=== PATIENT | female | born 1965 ===

== ENCOUNTER 2018-05-01 22:08 | Inpatient (IN) | payer OTHER ==
[2018-05-01] MEDS ORDERED: Sodium Chloride 0.9% 1,000 ML IV SCH (22:15)
--- NOTE | 2018-05-01 22:17 | C.PDOC ---
Time Seen by Provider: 05/01/18 22:12 Chief Complaint (Nursing): Altered Mental Status Disposition Counseled Patient/Family Regarding: Studies Performed, Diagnosis - Disposition Disposition Time: 22:17
[2018-05-01] MEDS ORDERED: Iodixanol 320 MG/ML 100 ML BOTTLE IV ONE (22:19)
[2018-05-01 22:20] VITALS: BMI 28.4
[2018-05-01 22:21] LABS: BASO # 0.1 K/uL (0.0-0.2); BASO % 0.5 % (0.0-2.0); EOS # 0.1 K/uL (0.0-0.7); EOS % 0.6 % (0.0-4.0); HEMOGLOBIN 11.8 g/dL (11.0-16.0); LYMPH # 5.2 K/uL (1.0-4.3); LYMPH % 28.8 % (20.0-40.0); MEAN CELL VOLUME 82.3 fL (81.0-99.0); MEAN CORPUSCULAR HGB CONC 31.6 g/dL (33.0-37.0); MONO # 0.8 K/uL (0.0-0.8); MONO % 4.5 % (0.0-10.0); NEUT % 65.6 % (50.0-75.0); RBC 4.56 Mil/uL (3.80-5.20); RED CELL DISTRIBUTION WIDTH 15.1 % (11.5-14.5); WHITE BLOOD COUNT 18.2 K/uL (4.8-10.8)
--- NOTE | 2018-05-01 22:27 | C.PDOC ---
History Of Present Illness pt has not been feeling well since yesterday. Had a few beers today, was complaining of a headache. 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 When medics arrived, pt was unresposive and was RSI with rocuronium and ketamine. Was found initially to be hypertensive.. Unable to do NIH scale as pt is sedated, intubated and paralyzed(with rocuronium) Time Seen by Provider: 05/01/18 22:12 Chief Complaint (Nursing): Altered Mental Status History Per: EMS History/Exam Limitations: clinical condition Onset/Duration Of Symptoms: Hrs Current Symptoms Are (Timing): Worse Severity: Severe Pain Scale Rating Of: 10 Recent travel outside of the [place]: No Additional History Per: EMS Past Medical History Reviewed: Historical Data, Nursing Documentation, Vital Signs Vital Signs: Last Vital Signs Temp Pulse 90 05/01/18 22:10 Resp 14 05/01/18 22:10 BP 89/40 L 05/01/18 22:10 Pulse Ox 100 05/01/18 22:10 Family History: States: No Known Family Hx - Social History Hx Alcohol Use: (UNKNOWN) Hx Substance Use: (UNKNOWN) - Immunization History Hx Tetanus Toxoid Vaccination: (UNOBTAINABLE) Hx Influenza Vaccination: (UNOBTAINABLE) Hx Pneumococcal Vaccination: (UNOBTAINABLE) Review Of Systems Review Of Systems: ROS cannot be obtained secondary to pt's inabilty to answer questions. Physical Exam - Physical Exam Appears: In Acute Distress Skin: Warm, Dry Head: Normacephalic Eye(s): bilateral: Other (pinpoint) Oral Mucosa: Moist Throat: Other (intubated) Neck: Supple Chest: Symmetrical Cardiovascular: Rhythm Regular Respiratory: No Rales, No Rhonchi, No Wheezing Gastrointestinal/Abdominal: Soft, No Tenderness, No Distention Back: Normal Inspection Extremity: No Pedal Edema Extremity: Bilateral: Atraumatic, Normal Color And Temperature Pulses: Left Dorsalis Pedis: Normal, Right Dorsalis Pedis: Normal Neurological/Psych: Other (intubated) Gait: Unable To Assess ED Course And Treatment - Laboratory Results Result Diagrams: 05/01/18 22:16 05/01/18 22:16 ECG: Interpreted By Me, Viewed By Me ECG Rhythm: Sinus Rhythm (91), ST/T Changes (poss lat st changes) O2 Sat by Pulse Oximetry: 100 Pulse Ox Interpretation: Normal - Radiology CXR: Interpreted by Me, Viewed By Me CXR Interpretation: Yes: Infiltrates (? rll ), Other (ett in place, ? rll mass). No: Fracture, Cardiomegaly Progress Note: 10:16PM - texted the ekg to dr soares-[facility] , and spoke with him - pt in view of her being unresponsive, and the ekg does not meet [facility] criteria. 11:[address] saunders-icu- will come and see the pt in the ed. have spoken with her and are aware of her condition. spoke with dr contreras - neurologist - load with [place] Critical Care Time - Critical Care Note Total Time (in mins): 40 Documented critical care: time excludes all time spent performing seperately billable procedures. Disposition Discussed With Dr.: Manfred Carbajal Comment: accepted the pt on his service and took over the care at 11:45 PM Doctor Will See Patient In The: ED Counseled Patient/Family Regarding: Studies Performed, Diagnosis - Disposition Disposition: HOSPITALIZED Disposition Time: 22:24 Condition: CRITICAL - POA Present On Arrival: Poor Glycemic Control - Clinical Impression Clinical Impression: Hyperglycemia, Respiratory failure, Leukocytosis Decision To Admit - Pt Status Changed To: Hospital Disposition Of: Inpatient - Admit Certification Admit to Inpatient:: After my assessment, the patient will require hospitalization for at least two midnights. This is because of the severity of symptoms shown, intensity of services needed, and/or the medical risk in this patient being treated as an outpatient. - InPatient: Physician Admission Certification: I certify that this patient requires 2 or more midnights of care for the following reason:: After my assessment, the patient will require hospitalization for at least two midnights. This is because of the severity of symptoms shown, intensity of services needed, and/or the medical risk in this patient being treated as an outpatient. - . Bed Request Type: ICU Admitting Physician: Manfred Carbajal Patient Diagnosis: Hyperglycemia, Respiratory failure, Leukocytosis
[2018-05-01 22:40] LABS: ALB/GLOB RATIO 1.1 (1.0-2.1); ALBUMIN 2.9 g/dL (3.5-5.0); CALCIUM 7.9 mg/dl (8.6-10.4)
[2018-05-01 22:46] LABS: TROPONIN I 0.052 ng/mL (0.00-0.120)
[2018-05-01 23:23] LABS: BARBITURATES, UR NEGATIVE (NEGATIVE); OPIATES, UR NEGATIVE (NEGATIVE); PHENCYCLIDINE, UR NEGATIVE (NEGATIVE)
[2018-05-01 23:25] LABS: BENZODIAZEPINES, UR POSITIVE (NEGATIVE)
[2018-05-01] MEDS ORDERED: Sodium Chloride 0.9% 1,000 ML IV ONE (23:30)
[2018-05-01 23:44] LABS: ARTERIAL BLOOD GAS HCO3 12.5 mmol/L (21-28); ARTERIAL BLOOD GAS O2 SAT 92.8 % (95-98); ARTERIAL BLOOD GAS PCO2 34 mm/Hg (35-45); ARTERIAL BLOOD GAS PH 7.16 (7.35-7.45); ARTERIAL BLOOD GAS PO2 68 mm/Hg (80-100); ARTERIAL BLOOD GAS TCO2 13.1 mmol/L (22-28)
[2018-05-01] MEDS ORDERED: Midazolam 50 mg/10 ml 100 MG in Dextrose 5% In Water 80 ML IV SCH (23:45)
[2018-05-01] MEDS ORDERED: Vancomycin 1 GM 1 GM/250 ML BAG IVPB SCH (23:45)
[2018-05-01] MEDS: Piperacill/Tazo 3.375gm in Dex 3.375 GM/50 ML BAG IVPB SCH (23:50)
[2018-05-01 23:51] LABS: INR 1.2; PROTHROMBIN TIME 12.7 SECONDS (9.7-12.2)
[2018-05-01 23:55] LABS: ACETAMINOPHEN < 10.0 ug/mL (10.0-30.0); SALICYLATE < 1.0 mg/dL 1
--- NOTE | 2018-05-02 00:02 | CP.PCM.CON ---
History of Present Illness - History of Present Illness History of Present Illness: 52 y/o female with unknown pmx admitted to [facility] after being found unresponsive by . Patient was intubated in the field by EMS. LImited ROS 2nd patient intubated. Review of Systems - Review of Systems Systems not reviewed;Unavailable: Intubated Past Patient History - Tetanus Immunizations Tetanus Immunization: Unknown - Past Social History Smoking Status: Never Smoked - PSYCHIATRIC Hx Substance Use: (UNKNOWN) - SURGICAL HISTORY Hx Surgeries: (UNOBTAINABLE) - ANESTHESIA Hx Anesthesia: (UNOBTAINABLE) Meds Allergies/Adverse Reactions: Allergies Allergy/AdvReac Type Severity Reaction Status Date / Time No Known Allergies Allergy Unverified 05/01/18 22:37 - Medications Medications: Current Medications Sodium Chloride (Sodium Chloride 0.9%) 1,000 mls @ 100 mls/hr IV .Q10H BETH Levetiracetam 1,000 mg/ (Dextrose) 110 mls @ 420 mls/hr IVPB Q12H BETH Sodium Chloride (Sodium Chloride 0.9%) 1,000 mls @ 1,000 mls/hr IV .Q1H ONE Stop: 05/02/18 00:29 Piperacillin Sod/Tazobactam Sod (Zosyn 3.375 Gm Iv Premix) 3.375 gm in 50 mls @ 100 mls/hr IVPB Q6H BETH; Protocol Midazolam HCl 100 mg/ Dextrose 100 mls @ 1.36 mls/hr IV .Q24H BETH; Protocol Vancomycin HCl (Vancomycin 1gm In Normal Saline Addvantage) 1 gm in 250 mls @ 166.667 mls/hr IVPB STAT BETH; Protocol Insulin Aspart (Novolog) 0 unit SC Q4H BETH; Protocol Physical Exam - Eye Exam Eye Exam: Normal appearance Pupil Exam: Irregular - ENT Exam ENT Exam: Mucous Membranes Moist - Respiratory Exam Respiratory Exam: Clear to Auscultation Bilateral, Rhonchi, NORMAL BREATHING PATTERN. absent: Rales, Respiratory Distress, Stridor - Cardiovascular Exam Cardiovascular Exam: REGULAR RHYTHM, +S1, +S2 - GI/Abdominal Exam GI & Abdominal Exam: Normal Bowel Sounds. absent: Distended, Rebound, Rigid - Extremities Exam Extremities exam: Positive for: normal inspection - Skin Skin Exam: Normal Color Results - Vital Signs Recent Vital Signs: Last Vital Signs Temp 96.7 F L 05/01/18 23:05 Pulse 81 05/01/18 23:05 Resp 15 05/01/18 23:05 BP 87/57 L 05/01/18 23:05 Pulse Ox 100 05/01/18 23:29 - Labs Result Diagrams: 05/01/18 22:16 05/01/18 22:16 Labs: Laboratory Results - last 24 hr 05/01/18 05/01/18 05/01/18 22:16 22:16 23:04 WBC 18.2 H RBC 4.56 Hgb 11.8 Hct 37.5 MCV 82.3 MCH 26.0 L MCHC 31.6 L RDW 15.1 H Plt Count 234 MPV 11.0 Neut % (Auto) 65.6 Lymph % (Auto) 28.8 [place] % (Auto) 4.5 Eos % (Auto) 0.6 Baso % (Auto) 0.5 Neut # (Auto) 12.0 H Lymph # (Auto) 5.2 H [place] # (Auto) 0.8 Eos # (Auto) 0.1 Baso # (Auto) 0.1 PT INR APTT Puncture Site pCO2 pO2 HCO3 ABG pH ABG Total CO2 ABG O2 Saturation ABG Base Excess Erik Test ABG Potassium A-a O2 Difference Respiratory Index Glucose Lactate Vent Mode Mechanical Rate FiO2 Tidal Volume PEEP Crit Value Called To Crit Value Called By Crit Value Read Back Blood Gas Notified Time Sodium 138 Potassium 3.5 L Chloride 103 Carbon Dioxide 14 L Anion Gap 25 H BUN 20 H Creatinine 1.2 Est GFR ( Amer) 57 Est GFR (Non-Af Amer) 47 Random Glucose 593 H* Calcium 7.9 L Total Bilirubin 0.4 AST 230 H ALT 156 H Alkaline Phosphatase 86 Troponin I 0.0520 Total Protein 5.5 L Albumin 2.9 L Globulin 2.6 Albumin/Globulin Ratio 1.1 Triglycerides 309 H Cholesterol 161 LDL Cholesterol Direct 104 HDL Cholesterol 20 L Arterial Blood Potassium Urine Opiates Screen Negative Urine Methadone Screen Negative Ur Barbiturates Screen Negative Ur Phencyclidine Scrn Negative Ur Amphetamines Screen Negative U Benzodiazepines Scrn Positive U Oth Cocaine Metabols Negative U Cannabinoids Screen Negative Alcohol, Quantitative 41 H B-Hydroxybutyrate 0.28 H 05/01/18 05/01/18 23:39 23:41 WBC RBC Hgb Hct MCV MCH MCHC RDW Plt Count MPV Neut % (Auto) Lymph % (Auto) [place] % (Auto) Eos % (Auto) Baso % (Auto) Neut # (Auto) Lymph # (Auto) [place] # (Auto) Eos # (Auto) Baso # (Auto) PT 12.7 H INR 1.2 APTT 26 Puncture Site R bra pCO2 34 L pO2 68 L HCO3 12.5 L ABG pH 7.16 L* ABG Total CO2 13.1 L ABG O2 Saturation 92.8 L ABG Base Excess -15.6 L Erik Test Na ABG Potassium 3.5 L A-a O2 Difference 603.0 Respiratory Index 8.9 Glucose 516 H* Lactate 5.3 H* Vent Mode Prvc Mechanical Rate 20 FiO2 100.0 Tidal Volume 450 PEEP 5 Crit Value Called To Dr griffith Crit Value Called By Marilia condon rt Crit Value Read Back Y Blood Gas Notified Time 2344 Sodium 138.0 Potassium Chloride 112.0 H Carbon Dioxide Anion Gap BUN Creatinine Est GFR ( Amer) Est GFR (Non-Af Amer) Random Glucose Calcium Total Bilirubin AST ALT Alkaline Phosphatase Troponin I Total Protein Albumin Globulin Albumin/Globulin Ratio Triglycerides Cholesterol LDL Cholesterol Direct HDL Cholesterol Arterial Blood Potassium 3.5 L Urine Opiates Screen Urine Methadone Screen Ur Barbiturates Screen Ur Phencyclidine Scrn Ur Amphetamines Screen U Benzodiazepines Scrn U Oth Cocaine Metabols U Cannabinoids Screen Alcohol, Quantitative B-Hydroxybutyrate Assessment & Plan - Assessment and Plan (Free Text) Assessment: AMS: exact etiology unknown, possible seizures, possible toxic injestion, utox, osmol, EEG, MRI brain, CT head pending -Sepsis: suspect aspiration, start vanco and zosyn, rios culture, serial lactic -Uncontrolled blood sugar, possible h/o diabetes, check beta hydroaxybutyrate, serial lactic -ACute respiratory failure: continue ventilation with rr 20 and vtidal 450, peep 5,m titrate fio2 to keep spo2 >92, continue bronchodialotrs -Anion gap metabolic acidosis: patient was on rocuronium, increase rr to 20, infuse bicarb push to keep pH >7.2, osmol (+), DKA (+), start insulin ggt, if not improved will infuse fomipazole (?methanol) -check TSH and HBA1C -r/o ACS: serial trop q8hrs x3, ekg and echo -NG tube -dvt ppx heparin -pud ppx pepcid. prognosis guarded as multiple diasgnostic tests peneding cc time 35 minutes PAtient will benefit from ICU level care consutl cardiology, neurology and infectious disease - Date & Time Date: 05/02/18 Time: 00:02
[2018-05-02] MEDS ORDERED: Lactated Ringer's 1,000 ML IV ONE (00:05)
[2018-05-02] MEDS ORDERED: Magnesium Sulfate 1 gm in D5W 1 GM/100 ML BAG IVPB ONE ×2 (00:09→03:00)
[2018-05-02] MEDS ORDERED: Lactated Ringer's 1,000 ML IV SCH (00:15)
--- NOTE | 2018-05-02 00:17 | CP.PCM.HP ---
<Eren Hernandez - Last Filed: 05/02/18 01:10> History of Present Illness - History of Present Illness History of Present Illness: PGY-1 ICU History and Physical Patient is a 52 year old female with no known PMHx who was brought to the emergency room by EMS after being found unresponsive by her this evening. Patient is from the [facility] and was visiting her who lives here in the . Per patient's , patient had been complaining of headaches for the past two days which had been getting worse, as well as some nausea. This evening, patient was at a [employer] with her and had had a few beers to drink. Patient was not feeling well and went to the bathroom where she was then found unresponsive on the ground by her . EMS was called and patient was intubated in the field and brought to [facility]. Initially patient was found to be hypertensive. Code stroke was initated in the emergency room. Patient has no known history of hypertension, diabetes, or cardiovascular disease. ROS unable to be obtained as patient sedated and intubated. Surgical hx: No known surgeries Medical hx: No known prior medical history Allergies: NKDA Social: EtOH use Family Hx: No known family hx Medications: No home meds Present on Admission - Present on Admission Any Indicators Present on Admission: No Review of Systems - Review of Systems Systems not reviewed;Unavailable: Intubated Review of Systems: Unable to be obtained as patient intubated and sedated Past Patient History - Past Social History Smoking Status: Never Smoked - PSYCHIATRIC Hx Substance Use: (UNKNOWN) - SURGICAL HISTORY Hx Surgeries: (UNOBTAINABLE) - ANESTHESIA Hx Anesthesia: (UNOBTAINABLE) Meds Allergies/Adverse Reactions: Allergies Allergy/AdvReac Type Severity Reaction Status Date / Time No Known Allergies Allergy Unverified 05/01/18 22:37 Physical Exam - Constitutional Appears: In Acute Distress - Head Exam Head Exam: NORMOCEPHALIC - Eye Exam Eye Exam: Normal appearance Pupil Exam: Miosis - ENT Exam Additional comments: Intubated - Respiratory Exam Respiratory Exam: Clear to Auscultation Bilateral. absent: Rhonchi, Wheezes - Cardiovascular Exam Cardiovascular Exam: RRR, +S1, +S2. absent: Systolic Murmur - GI/Abdominal Exam GI & Abdominal Exam: Normal Bowel Sounds, Soft. absent: Distended - Extremities Exam Extremities exam: Negative for: pedal edema - Back Exam Back exam: NORMAL INSPECTION - Neurological Exam Additional comments: Sedated - Skin Skin Exam: Dry, Normal Color, Warm Results - Vital Signs Recent Vital Signs: Last Vital Signs Temp 96.7 F L 05/01/18 23:05 Pulse 81 05/01/18 23:05 Resp 15 05/01/18 23:05 BP 87/57 L 05/01/18 23:05 Pulse Ox 100 05/01/18 23:29 - Labs Result Diagrams: 05/01/18 22:16 05/01/18 22:16 Labs: Laboratory Results - last 24 hr 05/01/18 05/01/18 05/01/18 22:16 22:16 23:04 WBC 18.2 H RBC 4.56 Hgb 11.8 Hct 37.5 MCV 82.3 MCH 26.0 L MCHC 31.6 L RDW 15.1 H Plt Count 234 MPV 11.0 Neut % (Auto) 65.6 Lymph % (Auto) 28.8 [place] % (Auto) 4.5 Eos % (Auto) 0.6 Baso % (Auto) 0.5 Neut # (Auto) 12.0 H Lymph # (Auto) 5.2 H [place] # (Auto) 0.8 Eos # (Auto) 0.1 Baso # (Auto) 0.1 PT INR APTT Puncture Site pCO2 pO2 HCO3 ABG pH ABG Total CO2 ABG O2 Saturation ABG Base Excess Erik Test ABG Potassium A-a O2 Difference Respiratory Index Glucose Lactate Vent Mode Mechanical Rate FiO2 Tidal Volume PEEP Crit Value Called To Crit Value Called By Crit Value Read Back Blood Gas Notified Time Sodium 138 Potassium 3.5 L Chloride 103 Carbon Dioxide 14 L Anion Gap 25 H BUN 20 H Creatinine 1.2 Est GFR ( Amer) 57 Est GFR (Non-Af Amer) 47 Random Glucose 593 H* Calcium 7.9 L Total Bilirubin 0.4 AST 230 H ALT 156 H Alkaline Phosphatase 86 Troponin I 0.0520 Total Protein 5.5 L Albumin 2.9 L Globulin 2.6 Albumin/Globulin Ratio 1.1 Triglycerides 309 H Cholesterol 161 LDL Cholesterol Direct 104 HDL Cholesterol 20 L Arterial Blood Potassium Salicylates Urine Opiates Screen Negative Urine Methadone Screen Negative Acetaminophen Ur Barbiturates Screen Negative Ur Phencyclidine Scrn Negative Ur Amphetamines Screen Negative U Benzodiazepines Scrn Positive U Oth Cocaine Metabols Negative U Cannabinoids Screen Negative Alcohol, Quantitative 41 H B-Hydroxybutyrate 0.28 H 05/01/18 05/01/18 05/01/18 23:39 23:39 23:41 WBC RBC Hgb Hct MCV MCH MCHC RDW Plt Count MPV Neut % (Auto) Lymph % (Auto) [place] % (Auto) Eos % (Auto) Baso % (Auto) Neut # (Auto) Lymph # (Auto) [place] # (Auto) Eos # (Auto) Baso # (Auto) PT 12.7 H INR 1.2 APTT 26 Puncture Site R bra pCO2 34 L pO2 68 L HCO3 12.5 L ABG pH 7.16 L* ABG Total CO2 13.1 L ABG O2 Saturation 92.8 L ABG Base Excess -15.6 L Erik Test Na ABG Potassium 3.5 L A-a O2 Difference 603.0 Respiratory Index 8.9 Glucose 516 H* Lactate 5.3 H* Vent Mode Prvc Mechanical Rate 20 FiO2 100.0 Tidal Volume 450 PEEP 5 Crit Value Called To Dr griffith Crit Value Called By Marilia condon rt Crit Value Read Back Y Blood Gas Notified Time 2344 Sodium 138.0 Potassium Chloride 112.0 H Carbon Dioxide Anion Gap BUN Creatinine Est GFR ( Amer) Est GFR (Non-Af Amer) Random Glucose Calcium Total Bilirubin AST ALT Alkaline Phosphatase Troponin I Total Protein Albumin Globulin Albumin/Globulin Ratio Triglycerides Cholesterol LDL Cholesterol Direct HDL Cholesterol Arterial Blood Potassium 3.5 L Salicylates < 1.0 Urine Opiates Screen Urine Methadone Screen Acetaminophen < 10.0 L Ur Barbiturates Screen Ur Phencyclidine Scrn Ur Amphetamines Screen U Benzodiazepines Scrn U Oth Cocaine Metabols U Cannabinoids Screen Alcohol, Quantitative B-Hydroxybutyrate Assessment & Plan - Assessment and Plan (Free Text) Assessment: Altered mental status - DKA vs CVA vs ACS vs Seizure disorder vs HTN emergency -Code Stroke called -Patient remains intubated and sedated and will be admitted to ICU -CT head 05/02 - Sinusitis. No evidence of acute intracranial pathology -CTA head/neck 05/02 - Essentially unremarkable CT angiogram of the brain and neck. No evidence of dissection, occlusion, vascular injury, or aneurysm is seen. -Possible DKA - BG 516, B-hydroxybutyrate .28, ABG pH 7.14, AG calculated 22.5 -F/u A1C -TSH WNL -Neuro (Dr. Vanegas) phone consulted by ED - Awaiting MRI results. -EEG bedside -Meds --Midazolam HCl 100 mg/ Dextrose 100 mls @ 1.36 mls/hr IV .Q24H BETH; Protocol --Levetiracetam 1,000 mg/ (Dextrose) 110 mls @ 420 mls/hr IVPB Q12H BETH --Keppra 1000mg in D5W given stat Sepsis -WBC 18.2 -RLL infiltrates on chest x-ray (official read pending) -Vanc/Zosyn started empirically -hypotensive -Lactate elevated --> 5.2 --Serial lactate levels -Cultures: Blood, urine, sputum cx pending -Meds: --Piperacillin Sod/Tazobactam- 3.375 gm in 50 mls @ 100 mls/hr IVPB Q6H --Vancomycin HCl (Vancomycin 1gm In Normal Saline Addvantage) 1 gm in 250 mls @ 166.667 mls/hr IVPB stat --LRs @ 1000cc/hr Hyperglycemia -Possible DKA - BG 516, B-hydroxybutyrate .28, ABG pH 7.14, AG calculated 22.5 -LRs @ 1000cc/hr -Sodium Chloride (Sodium Chloride 0.9%) 1,000 mls @ 100 mls/hr IV .Q10H BETH -Insulin Aspart (Novolog) ISS Abnormal EKG -Dr. Gay consulted via phone by ED physician for ST elevations noted on MS. Per Dr. Gay EKG did not meet code heart criteria. Code heart not called. -Initial trops negative -Cardio consult - Dr. Gay, help appreciated. -F/u ROMIs -Echo Hypertensive Urgency/Emergency -219/155 -Elevated lactate -Initial CT head/CTA head/neck negative -F/u MRI Transaminitis -AST/ALT : 230/156 -Likely 2/2 EtOh -Initial blood alcohol quant 41 Lipid Disorder -TG 309 -Low HDL - 20 -LDL WNL Case Discussed with Dr. Raven Hernandez, PGY-1 <Manfred Carbajal - Last Filed: 05/02/18 06:30> Results - Vital Signs Recent Vital Signs: Last Vital Signs Temp 96.7 F L 10/27/18 23:05 Pulse 129 H 05/02/18 03:00 Resp 33 H 05/02/18 03:00 BP 130/85 05/02/18 03:41 Pulse Ox 83 L 05/02/18 03:00 - Labs Result Diagrams: 05/02/18 06:10 05/01/18 22:16 Labs: Laboratory Results - last 24 hr 05/01/18 05/01/18 05/01/18 22:16 22:16 23:04 WBC 18.2 H RBC 4.56 Hgb 11.8 Hct 37.5 MCV 82.3 MCH 26.0 L MCHC 31.6 L RDW 15.1 H Plt Count 234 MPV 11.0 Neut % (Auto) 65.6 Lymph % (Auto) 28.8 [place] % (Auto) 4.5 Eos % (Auto) 0.6 Baso % (Auto) 0.5 Neut # (Auto) 12.0 H Lymph # (Auto) 5.2 H [place] # (Auto) 0.8 Eos # (Auto) 0.1 Baso # (Auto) 0.1 PT INR APTT Puncture Site pCO2 pO2 HCO3 ABG pH ABG Total CO2 ABG O2 Saturation ABG Base Excess Erik Test ABG Potassium A-a O2 Difference Respiratory Index Glucose Lactate Vent Mode Mechanical Rate FiO2 Tidal Volume PEEP Crit Value Called To Crit Value Called By Crit Value Read Back Blood Gas Notified Time Sodium 138 Potassium 3.5 L Chloride 103 Carbon Dioxide 14 L Anion Gap 25 H BUN 20 H Creatinine 1.2 Est GFR ( Amer) 57 Est GFR (Non-Af Amer) 47 Random Glucose 593 H* Serum Osmolality Calcium 7.9 L Total Bilirubin 0.4 AST 230 H ALT 156 H Alkaline Phosphatase 86 Ammonia Troponin I 0.0520 NT-Pro-B Natriuret Pep Total Protein 5.5 L Albumin 2.9 L Globulin 2.6 Albumin/Globulin Ratio 1.1 Triglycerides 309 H Cholesterol 161 LDL Cholesterol Direct 104 HDL Cholesterol 20 L TSH 3rd Generation 1.86 Arterial Blood Potassium Urine Osmolality Urine HCG, Qual Salicylates Urine Opiates Screen Negative Urine Methadone Screen Negative Acetaminophen Ur Barbiturates Screen Negative Ur Phencyclidine Scrn Negative Ur Amphetamines Screen Negative U Benzodiazepines Scrn Positive U Oth Cocaine Metabols Negative U Cannabinoids Screen Negative Alcohol, Quantitative 41 H B-Hydroxybutyrate 0.28 H Blood Type Antibody Screen Antibody Identification 05/01/18 05/01/18 05/01/18 23:39 23:39 23:41 WBC RBC Hgb Hct MCV MCH MCHC RDW Plt Count MPV Neut % (Auto) Lymph % (Auto) [place] % (Auto) Eos % (Auto) Baso % (Auto) Neut # (Auto) Lymph # (Auto) [place] # (Auto) Eos # (Auto) Baso # (Auto) PT 12.7 H INR 1.2 APTT 26 Puncture Site R bra pCO2 34 L pO2 68 L HCO3 12.5 L ABG pH 7.16 L* ABG Total CO2 13.1 L ABG O2 Saturation 92.8 L ABG Base Excess -15.6 L Erik Test Na ABG Potassium 3.5 L A-a O2 Difference 603.0 Respiratory Index 8.9 Glucose 516 H* Lactate 5.3 H* Vent Mode Prvc Mechanical Rate 20 FiO2 100.0 Tidal Volume 450 PEEP 5 Crit Value Called To Dr griffith Crit Value Called By Marilia condon rt Crit Value Read Back Y Blood Gas Notified Time 2344 Sodium 138.0 Potassium Chloride 112.0 H Carbon Dioxide Anion Gap BUN Creatinine Est GFR ( Amer) Est GFR (Non-Af Amer) Random Glucose Serum Osmolality Calcium Total Bilirubin AST ALT Alkaline Phosphatase Ammonia Troponin I NT-Pro-B Natriuret Pep Total Protein Albumin Globulin Albumin/Globulin Ratio Triglycerides Cholesterol LDL Cholesterol Direct HDL Cholesterol TSH 3rd Generation Arterial Blood Potassium 3.5 L Urine Osmolality Urine HCG, Qual Salicylates < 1.0 Urine Opiates Screen Urine Methadone Screen Acetaminophen < 10.0 L Ur Barbiturates Screen Ur Phencyclidine Scrn Ur Amphetamines Screen U Benzodiazepines Scrn U Oth Cocaine Metabols U Cannabinoids Screen Alcohol, Quantitative B-Hydroxybutyrate Blood Type Antibody Screen Antibody Identification 05/02/18 05/02/18 05/02/18 00:02 00:10 00:13 WBC RBC Hgb Hct MCV MCH MCHC RDW Plt Count MPV Neut % (Auto) Lymph % (Auto) [place] % (Auto) Eos % (Auto) Baso % (Auto) Neut # (Auto) Lymph # (Auto) [place] # (Auto) Eos # (Auto) Baso # (Auto) PT INR APTT Puncture Site pCO2 pO2 HCO3 ABG pH ABG Total CO2 ABG O2 Saturation ABG Base Excess Erik Test ABG Potassium A-a O2 Difference Respiratory Index Glucose Lactate Vent Mode Mechanical Rate FiO2 Tidal Volume PEEP Crit Value Called To Crit Value Called By Crit Value Read Back Blood Gas Notified Time Sodium Potassium Chloride Carbon Dioxide Anion Gap BUN Creatinine Est GFR ( Amer) Est GFR (Non-Af Amer) Random Glucose Serum Osmolality 328 H Calcium Total Bilirubin AST ALT Alkaline Phosphatase Ammonia Troponin I NT-Pro-B Natriuret Pep Total Protein Albumin Globulin Albumin/Globulin Ratio Triglycerides Cholesterol LDL Cholesterol Direct HDL Cholesterol TSH 3rd Generation Arterial Blood Potassium Urine Osmolality 450 Urine HCG, Qual Salicylates Urine Opiates Screen Urine Methadone Screen Acetaminophen Ur Barbiturates Screen Ur Phencyclidine Scrn Ur Amphetamines Screen U Benzodiazepines Scrn U Oth Cocaine Metabols U Cannabinoids Screen Alcohol, Quantitative B-Hydroxybutyrate Blood Type A NEGATIVE Antibody Screen Positive Antibody Identification Anti D 05/02/18 05/02/18 05/02/18 00:59 01:57 02:48 WBC RBC Hgb Hct MCV MCH MCHC RDW Plt Count MPV Neut % (Auto) Lymph % (Auto) [place] % (Auto) Eos % (Auto) Baso % (Auto) Neut # (Auto) Lymph # (Auto) [place] # (Auto) Eos # (Auto) Baso # (Auto) PT INR APTT Puncture Site R bra pCO2 46 H pO2 48 L HCO3 10.3 L ABG pH 7.05 L* ABG Total CO2 14.1 L ABG O2 Saturation 79.6 L ABG Base Excess -17.5 L Erik Test Na ABG Potassium 4.1 A-a O2 Difference 608.0 Respiratory Index 12.7 Glucose 728 H* D Lactate 7.6 H* Vent Mode Prvc Mechanical Rate 20 FiO2 100.0 Tidal Volume 450 PEEP 5 Crit Value Called To [facility] curriculum manager Crit Value Called By Marilia condon rt Crit Value Read Back Y Blood Gas Notified Time 224 Sodium 138.0 Potassium Chloride 105.0 Carbon Dioxide Anion Gap BUN Creatinine Est GFR ( Amer) Est GFR (Non-Af Amer) Random Glucose Serum Osmolality Calcium Total Bilirubin AST ALT Alkaline Phosphatase Ammonia Troponin I NT-Pro-B Natriuret Pep 35.9 Total Protein Albumin Globulin Albumin/Globulin Ratio Triglycerides Cholesterol LDL Cholesterol Direct HDL Cholesterol TSH 3rd Generation Arterial Blood Potassium 4.1 Urine Osmolality Urine HCG, Qual Negative Salicylates Urine Opiates Screen Urine Methadone Screen Acetaminophen Ur Barbiturates Screen Ur Phencyclidine Scrn Ur Amphetamines Screen U Benzodiazepines Scrn U Oth Cocaine Metabols U Cannabinoids Screen Alcohol, Quantitative B-Hydroxybutyrate Blood Type Antibody Screen Antibody Identification 05/02/18 05/02/18 05/02/18 02:48 05:29 06:10 WBC 20.6 H RBC 5.94 H Hgb 15.7 D Hct 48.3 H MCV 81.3 MCH 26.5 L MCHC 32.5 L RDW 15.8 H Plt Count 257 MPV 11.3 Neut % (Auto) 93.8 H Lymph % (Auto) 4.5 L [place] % (Auto) 1.4 Eos % (Auto) 0.0 Baso % (Auto) 0.3 Neut # (Auto) 19.3 H Lymph # (Auto) 0.9 L [place] # (Auto) 0.3 Eos # (Auto) 0.0 Baso # (Auto) 0.1 PT INR APTT Puncture Site R bra pCO2 33 L pO2 70 L HCO3 14.1 L ABG pH 7.21 L ABG Total CO2 14.2 L ABG O2 Saturation 95.7 ABG Base Excess -13.6 L Erik Test Na ABG Potassium 4.4 A-a O2 Difference 602.0 Respiratory Index 8.6 Glucose 559 H* D Lactate 8.0 H* Vent Mode A/c pc Mechanical Rate 20 FiO2 100.0 Tidal Volume PEEP 10 Crit Value Called To Marybel moore rn Crit Value Called By Marilia condon rt Crit Value Read Back Y Blood Gas Notified Time 549 Sodium 142.0 Potassium Chloride 110.0 H Carbon Dioxide Anion Gap BUN Creatinine Est GFR ( Amer) Est GFR (Non-Af Amer) Random Glucose Serum Osmolality Calcium Total Bilirubin AST ALT Alkaline Phosphatase Ammonia 29 Troponin I NT-Pro-B Natriuret Pep Total Protein Albumin Globulin Albumin/Globulin Ratio Triglycerides Cholesterol LDL Cholesterol Direct HDL Cholesterol TSH 3rd Generation Arterial Blood Potassium 4.4 Urine Osmolality Urine HCG, Qual Salicylates Urine Opiates Screen Urine Methadone Screen Acetaminophen Ur Barbiturates Screen Ur Phencyclidine Scrn Ur Amphetamines Screen U Benzodiazepines Scrn U Oth Cocaine Metabols U Cannabinoids Screen Alcohol, Quantitative B-Hydroxybutyrate Blood Type Antibody Screen Antibody Identification Assessment & Plan - Date & Time Date: 05/02/18 (I have seen and examined the patient. I agree with the findings and plan of care as documented by Dr. Hernandez. Patient with acute respiratory failure requiring intubation. Admit to ICU. Sepsis. Vanco and Zosyn for now. Blood cultures. Also with hyperglycemia. Further management as per ICU. Monitor for acute changes.) Time: 06:29 Attending/Attestation - Attestation I have personally seen and examined this patient.: Yes I have fully participated in the care of the patient.: Yes I have reviewed all pertinent clinical information: Yes
[2018-05-02] MEDS ORDERED: Vancomycin 1 gm/NS 200 ml 1 GM/200 ML BAG IVPB STA (01:40)
[2018-05-02] MEDS: (Novolog) Insulin Aspart, Recombinant 100 u/ml 10 ml vial SC SCH ×2 (02:02→03:58)
[2018-05-02 02:24] LABS: ARTERIAL BLOOD GAS HCO3 10.3 mmol/L (21-28); ARTERIAL BLOOD GAS O2 SAT 79.6 % (95-98); ARTERIAL BLOOD GAS PCO2 46 mm/Hg (35-45); ARTERIAL BLOOD GAS PH 7.05 (7.35-7.45); ARTERIAL BLOOD GAS PO2 48 mm/Hg (80-100); ARTERIAL BLOOD GAS TCO2 14.1 mmol/L (22-28)
[2018-05-02] MEDS ORDERED: Sodium Bicarbonate (8.4%) 50 Meq Syringe ONE (02:34)
[2018-05-02] MEDS ORDERED: Insulin Human Regular 100 UNIT in Sodium Chloride 0.9% 99 ML SC SCH (02:45)
[2018-05-02] MEDS: Midazolam 50 mg/10 ml 100 MG in Dextrose 5% In Water 80 ML IV PRN (02:45)
[2018-05-02] MEDS: MethylPREDNISolone 40 mg Vial IVP SCH ×3 (03:02→18:55)
[2018-05-02] MEDS ORDERED: FOMEPIZOLE IV STA (03:03)
--- NOTE | 2018-05-02 03:14 | PCM.SEPTIC ---
Sepsis Progress Note - Reassessment Type Date of Evaluation: 05/02/18 Time of Evaluation: 03:13 Reassessment Type: Non-invasive reassessment - Non Invasive Reassessment Were the most recent vital sign reviewed: Yes Vital Sign (Latest): Temp Pulse Resp BP Pulse Ox 96.7 F L 127 H 20 191/139 H 96 05/01/18 23:05 05/02/18 00:29 05/02/18 00:29 05/02/18 00:29 05/02/18 00:29 Cardiovascular: Yes: Tachycardia Respiratory: Yes: Wheezing Capillary Refill: Normal (Less than 2 sec) Pulses: Normal Radial, Normal Dorsalis Pedis Skin: Normal Color Was a central venous oxygen measurement obtained within 6 hours after the presentation of septic shock: No Was a bedside cardiovascular ultrasound performed within 6 hours after the presentation of septic shock: No Was a passive leg raise performed or was a fluid challenge performed within 6 hrs of the initial fluid bolus: No
[2018-05-02] MEDS ORDERED: Insulin Human Regular 100 UNIT in Sodium Chloride 0.9% 99 ML IV PRN (03:31)
[2018-05-02] MEDS: Albuterol-Ipratrop 3 mg / 0.5 (3 ml) UD INH SCH ×5 (03:37→20:44)
[2018-05-02] MEDS ORDERED: Potassium Chloride 20 mEq/15 ml LIQ UD PO ONE (03:45)
[2018-05-02] MEDS ORDERED: (Novolin R) Insulin Human Regular 100 units/ml vial IVP ONE ×2 (03:54→06:09)
[2018-05-02 04:58] LABS: SQUAMOUS EPITHIAL < 1 /hpf (0-5); URINE BACTERIA RARE (<OCC); URINE BILIRUBIN NEGATIVE (NEGATIVE); URINE BLOOD NEGATIVE (NEGATIVE); URINE CLARITY Clear (Clear); URINE COLOR Yellow (YELLOW); URINE GLUCOSE (UA) 3+ mg/dL (Normal); URINE LEUKOCYTE ESTERASE NEG Leu/uL (Negative); URINE PROTEIN NEGATIVE (NEGATIVE); URINE UROBILINOGEN NORMAL mg/dL (0.2-1.0)
[2018-05-02] MEDS: Piperacill/Tazo 3.375gm in Dex 3.375 GM/50 ML BAG IVPB SCH (05:44)
[2018-05-02 05:50] LABS: ARTERIAL BLOOD GAS HCO3 14.1 mmol/L (21-28); ARTERIAL BLOOD GAS O2 SAT 95.7 % (95-98); ARTERIAL BLOOD GAS PCO2 33 mm/Hg (35-45); ARTERIAL BLOOD GAS PH 7.21 (7.35-7.45); ARTERIAL BLOOD GAS PO2 70 mm/Hg (80-100); ARTERIAL BLOOD GAS TCO2 14.2 mmol/L (22-28)
[2018-05-02] MEDS: Lactated Ringer's 1,000 ML IV SCH (06:00)
[2018-05-02] MEDS ORDERED: Sodium Bicarbonate (8.4%) 50 Meq Syringe IVP ONE ×3 (06:08→07:06)
[2018-05-02 06:17] LABS: BASO # 0.1 K/uL (0.0-0.2); BASO % 0.3 % (0.0-2.0); HEMOGLOBIN 15.7 g/dL (11.0-16.0); LYMPH # 0.9 K/uL (1.0-4.3); LYMPH % 4.5 % (20.0-40.0); MEAN CELL VOLUME 81.3 fL (81.0-99.0); MEAN CORPUSCULAR HEMOGLOBIN 26.5 pg (27.0-31.0); MEAN CORPUSCULAR HGB CONC 32.5 g/dL (33.0-37.0); MEAN PLATELET VOLUME 11.3 fL (7.2-11.7); MONO # 0.3 K/uL (0.0-0.8); MONO % 1.4 % (0.0-10.0); NEUT # 19.3 K/uL (1.8-7.0); NEUT % 93.8 % (50.0-75.0); NRBC % 0.1 % (0.0-2.0); PLATELET COUNT 257 K/uL (130-400); RBC 5.94 Mil/uL (3.80-5.20); RED CELL DISTRIBUTION WIDTH 15.8 % (11.5-14.5); WHITE BLOOD COUNT 20.6 K/uL (4.8-10.8)
[2018-05-02 06:37] LABS: ALB/GLOB RATIO 1.1 (1.0-2.1); ALT/SGPT 575 U/L (9-52); BLOOD UREA NITROGEN 18 mg/dL (7-17); CALCIUM 7.2 mg/dl (8.6-10.4); GFR NON-AFRICAN AMERICAN 47; HDL CHOLESTEROL 24 mg/dL (30-70)
[2018-05-02 06:40] LABS: AST/SGOT 1050 U/L (14-36)
[2018-05-02 06:42] LABS: LDL CHOLESTEROL 138 mg/dL (0-129)
[2018-05-02] MEDS ORDERED: Heparin25000 units/250ml 1/2NS 25,000 UNITS/250 ML BAG IV PRN (07:16)
[2018-05-02] MEDS: Insulin Human Regular 100 UNIT in Sodium Chloride 0.9% 99 ML IV SCH (08:00)
[2018-05-02] MEDS ORDERED: Dextrose 50% SYRINGE Inj (50 ml) IV PRN (08:33)
[2018-05-02] MEDS ORDERED: Glucagon Recombinant 1 mg Inj IM PRN (08:33)
[2018-05-02] MEDS ORDERED: Insulin Human Regular 100 UNIT in Sodium Chloride 0.9% 99 ML IV SCH (08:45)
[2018-05-02 08:48] LABS: ANISOCYTOSIS SLIGHT; BANDS 19 % (0-2); EOSINOPHIL 1 % (0-4); LARGE PLATELETS PRESENT; LYMPHOCYTE 5 % (20-40); NEUTROPHIL 74 % (50-75); PLATELET ESTIMATE NORMAL (NORMAL); REACTIVE LYMPHOCYTES 1 % (0-0); TOTAL CELLS COUNTED 100
[2018-05-02 08:58] LABS: INR 1.2
--- NOTE | 2018-05-02 09:11 | CP.PCM.PN ---
Subjective - Date & Time of Evaluation Date of Evaluation: 05/02/18 Time of Evaluation: 08:30 - Subjective Subjective: Patient was seen and examined Intubated,unresponsive,no gag reflex,pupil fixed and not reacting to light Hyperventilating and tachycardia low grade temp blood pressure 121/75 saturating 100% on fio2 100 Objective - Vital Signs/Intake and Output Vital Signs (last 24 hours): Temp Pulse Resp BP Pulse Ox 99.9 F H 134 H 33 H 129/84 100 05/02/18 06:00 05/02/18 07:30 05/02/18 07:30 05/02/18 07:14 05/02/18 07:30 Intake and Output: 05/02/18 05/02/18 06:59 18:59 Intake Total 1165.8 215.7 Output Total 3050 450 Balance -1884.2 -234.3 - Medications Medications: Current Medications Albuterol/Ipratropium (Duoneb 3 Mg/0.5 Mg (3 Ml) Ud) 3 ml INH RQ4 BETH Last Admin: 05/02/18 08:02 Dose: Not Given Aspirin (Ecotrin) 81 mg PO DAILY BETH Dextrose (Dextrose 50% Inj) 0 ml IV STAT PRN; Protocol PRN Reason: Hypoglycemia Protocol Dextrose (Glutose 15) 0 gm PO ONCE PRN; Protocol PRN Reason: Hypoglycemia Protocol Glucagon (Glucagen Diagnostic Kit) 0 mg IM STAT PRN; Protocol PRN Reason: Hypoglycemia Protocol Midazolam HCl 100 mg/ Dextrose 100 mls @ 1.48 mls/hr IV .Q24H PRN; Protocol PRN Reason: Sedation Last Titration: 05/02/18 07:00 Dose: 0.05 mg/kg/hr, 3.7 mls/hr Doxycycline Hyclate 100 mg/ (Sodium Chloride) 100 mls @ 100 mls/hr IVPB Q12H BETH; Protocol Last Admin: 05/02/18 04:52 Dose: 100 mls/hr Potassium Chloride (Potassium Chloride 10 Meq/100 Ml) 10 meq in 100 mls @ 100 mls/hr IVPB Q1H BETH Stop: 05/02/18 09:14 Last Admin: 05/02/18 08:35 Dose: 100 mls/hr Levetiracetam 1,000 mg/ Sodium (Chloride) 110 mls @ 420 mls/hr IVPB Q12H BETH Piperacillin Sod/Tazobactam (Sod 3.375 gm/ Sodium Chloride) 100 mls @ 100 mls/hr IVPB Q6H BETH; Protocol Heparin Sodium/Sodium Chloride (Heparin 71124 Units/250ml 1/2 Normal Saline) 25,000 units in 250 mls @ 8.88 mls/hr IV .Q24H PRN; Protocol PRN Reason: ADJUST RATE PER PROTOCOL Last Admin: 05/02/18 08:48 Dose: 12 units/kg/hr, 8.88 mls/hr Dextrose (Dextrose 5% In Water 1000 Ml) 1,000 mls @ 0 mls/hr IV .Q0M PRN; Protocol PRN Reason: Hypoglycemia Protocol Insulin Human Regular 100 unit (/ Sodium Chloride) 100 mls @ 2 mls/hr IV .Q24H BETH; Protocol Lactated Ringer's (Lactated Ringer's) 1,000 mls @ 50 mls/hr IV .Q20H BETH Methylprednisolone (Solu-Medrol) 40 mg IVP Q8H [facility] Last Admin: 05/02/18 03:02 Dose: Not Given Pantoprazole Sodium (Protonix Inj) 40 mg IVP DAILY [facility] Sodium Bicarbonate (Sodium Bicarbonate Tab) 650 mg PO Q6 [facility] Last Admin: 05/02/18 05:44 Dose: 650 mg - Labs Labs: 05/02/18 06:10 05/02/18 06:10 PT 13.0 SECONDS (9.7-12.2) H 05/02/18 08:47 INR 1.2 05/02/18 08:47 APTT 27 SECONDS (21-34) 05/02/18 08:47 - Constitutional Appears: Other (intubated on MV,unresponsive) - Eye Exam Eye Exam: absent: PERRL (pupils 3mm fixed and not react to light) - ENT Exam ENT Exam: absent: Normal Oropharynx (intubated,abrasion on her neck suspicious for strangulation) - Neck Exam Neck Exam: absent: Full ROM - Respiratory Exam Respiratory Exam: Clear to Ausculation Bilateral. absent: Respiratory Distress (hyperventilating) - Cardiovascular Exam Cardiovascular Exam: REGULAR RHYTHM - GI/Abdominal Exam GI & Abdominal Exam: Soft, Normal Bowel Sounds - Extremities Exam Extremities Exam: Normal Inspection - Back Exam Back Exam: Full ROM, NORMAL INSPECTION - Neurological Exam Neurological Exam: absent: Awake (unresponsive) - Psychiatric Exam Psychiatric exam: absent: Normal Mood (unresponsive) - Skin Skin Exam: Dry, Erythema (Ecchymotic area on right forarm and left upper arm) Assessment and Plan - Assessment and Plan (Free Text) Assessment: This 52 year old female with known history of Diabetes mellitus brought to the emergency room by EMS after being found unresponsive by her this evening. Patient [place] [facility] [place] and was visiting her who lives here in the . Per patient's , patient had been complaining of headaches for the past two days which had been getting worse, as well as some nausea. The patient was at a [employer] with her and had had a few beers to drink. She was found unresponsive on the ground in the bedroom by her . EMS was called and patient was intubated in the field and brought to [facility]. Plan: Respiratory failure possible asphyxia,acidosis,r/o sepsis Intubated on MV, managed by critical care team Metabolic acidosis patient has metabolic high anion gap acidosis follow blood gas and electrolytes s/p Sodium bicarb given Hyperglycemia/uncontrolled dm insulin drip and monitor sugar NSTMI Elevated troponin,EKG asprin and heparin drip Dr Gay consulted Leukocytosis,bandemia,high pro mariia R/O Sepsis likely aspiration zosyn and vanco vanco trough level ID consult follow cultures chest x ray likely aspiration Possible anoxic brain injury neurologist Dr Vanegas consulted EEG in am reduce sedation follow repeat CT head Transaminitis likely shock liver,follow LFT Asphyxia neck abrasion suspicious for strangulation Police was called and investigated by police for possibility of suicide vs homicide Diabetes mellitus HA1c,Finger stick with insulin coverage Prophylaxis DVT -on heparin GI is on protonix
--- NOTE | 2018-05-02 09:36 | RAD ---
Date of service: 05/02/2018 HISTORY: lung eval hypoxia COMPARISON: Frontal chest radiograph 05/02/2018 12:24 a.m.. FINDINGS: LUNGS: Patchy airspace disease has now developed at the right perihilar region with stable complete opacification of the right lower lobe suspected as well as right middle lobe. Left perihilar infiltrate now suspected. Endotracheal tube is unchanged in position. External pacemaker again identified. Cardiac silhouette is partially obscured by dense right-sided infiltrate with left heart border unchanged. Underlying pulmonary vascular congestion not excluded. No left pleural effusion. Right pleural effusion not favored but not excluded at this time. No pneumothorax bilaterally. PLEURA: As above. CARDIOVASCULAR: As above. OSSEOUS STRUCTURES: No significant abnormalities. VISUALIZED UPPER ABDOMEN: Normal. OTHER FINDINGS: None. IMPRESSION: Endotracheal tube unchanged in position with gross infiltrate atelectasis affecting right middle and lower lobes once again. Increasing infiltrates in the right perihilar region with underlying pulmonary vascular congestion not excluded. Left perihilar infiltrate suspected.
--- NOTE | 2018-05-02 10:23 | RAD ---
Date of service: 05/02/2018 PROCEDURE: CHEST RADIOGRAPH, 1 VIEW HISTORY: decreased sats COMPARISON: Portable chest 05/01/2018. FINDINGS: LUNGS: Endotracheal tube is unchanged in position. External pacer unchanged in position. There is not dense infiltrate atelectasis obscuring the right lung base diffusely suggesting postobstructive atelectasis as previous radiograph demonstrated only limited airspace disease at the right base. Borderline left perihilar patchy density in the interval. PLEURA: Unable to exclude right pleural effusion. None seen at the left. No pneumothorax bilaterally. CARDIOVASCULAR: [id number] pulmonary vascular congestion noted. Cardiac silhouette obscured by right-sided opacity. OSSEOUS STRUCTURES: No significant abnormalities. VISUALIZED UPPER ABDOMEN: Normal. OTHER FINDINGS: None. IMPRESSION: Likely prominent dense obstructive at postobstructive atelectasis right lower lobe with underlying pneumonia not excluded. Right pleural effusion also not excluded. [id number] pulmonary vascular congestion noted. Limited patchy left perihilar density noted.
--- NOTE | 2018-05-02 10:28 | RAD ---
Date of service: 05/01/2018 HISTORY: Code Stroke COMPARISON: None available. FINDINGS: LUNGS: Endotracheal tube is in place with the tip terminating approximately 4.5 cm above the aiden. Limited patchy atelectasis or infiltrate is seen at the right base with none apparent at the left. PLEURA: No significant pleural effusion identified, no pneumothorax apparent. CARDIOVASCULAR: No aortic atherosclerotic calcification present. Normal apparent cardiac size. External pacemaker in position. Borderline pulmonary vascular congestion bilaterally. OSSEOUS STRUCTURES: No significant abnormalities. VISUALIZED UPPER ABDOMEN: Normal. OTHER FINDINGS: None. IMPRESSION: Patchy infiltrate suspected at the right base though atelectasis is not excluded. Borderline pulmonary vascular congestion.
[2018-05-02] MEDS: levETIRAcetam 1,000 MG in Sodium Chloride 0.9% 100 ML IVPB SCH (11:10)
--- NOTE | 2018-05-02 11:34 | CT ---
Date of service: 05/01/2018 PROCEDURE: CT HEAD WITHOUT CONTRAST. HISTORY: Code Stroke COMPARISON: None available. TECHNIQUE: Axial computed tomography images were obtained through the head/brain without intravenous contrast. Radiation dose: Total exam DLP = 1128.84 mGy-cm. This CT exam was performed using one or more of the following dose reduction techniques: Automated exposure control, adjustment of the mA and/or kV according to patient size, and/or use of iterative reconstruction technique. FINDINGS: HEMORRHAGE: No intracranial hemorrhage. BRAIN: Normal box-white matter differentiation and density are appreciated throughout the cerebrum and cerebellum with the brainstem appearing unremarkable as well. There is no mass effect. There is no suspicious extra-axial fluid collection and the midline brain anatomy appears diffusely unremarkable. No atrophy or chronic microvascular ischemic changes. VENTRICLES: Unremarkable. No hydrocephalus. CALVARIUM: No destructive bony lesion or displaced fracture identified including through the skullbase. PARANASAL SINUSES: Incidental limited bilateral ethmoid sinusitis. MASTOID AIR CELLS: Unremarkable as visualized. No inflammatory changes. OTHER FINDINGS: None. IMPRESSION: Negative CT of the brain. Incidental ethmoid sinusitis. Concordant preliminary report from [facility], 05/01/2018.
--- NOTE | 2018-05-02 11:44 | CT ---
Date of service: 05/01/2018 PROCEDURE: CT Angiography of the Brain. HISTORY: unresponsive COMPARISON: None available. TECHNIQUE: CT angiography of the head and neck was performed following intravenous contrast administration. Coronal and sagittal maximum intensity projection reformatted images were generated. Contrast Dose: Visipaque 320, 100 cc Radiation dose: Total exam DLP = 516.7 mGy-cm. This CT exam was performed using one or more of the following dose reduction techniques: Automated exposure control, adjustment of the mA and/or kV according to patient size, and/or use of iterative reconstruction technique. FINDINGS: INTERNAL CEREBRAL ARTERIES: Unremarkable. The skull base, petrous, cavernous and supraclinoid segments are bilaterally widely patent. ANTERIOR CEREBRAL ARTERIES: Unremarkable. A1 and A2 segments are widely patent. Smaller distal branches unremarkable, as visualized. MIDDLE CEREBRAL ARTERIES: Unremarkable. M1 and M2 segments are widely patent. Perisylvian branches grossly symmetric. POSTERIOR CIRCULATION: Basilar Artery: Unremarkable. Distal Vertebral Arteries: Left dominant vertebrobasilar circulation. Hypoplastic right vertebral artery. Posterior Cerebral Arteries: Unremarkable. Posterior Inferior Cerebellar Arteries: Unremarkable. NECK CTA: Common Carotid arteries: The bilateral common carotid appear widely patent from their origins to their bifurcations with no significant stenosis appreciated. No evidence to suggest common carotid artery dissection. Internal Carotid arteries: No significant stenosis is appreciated throughout the cervical internal carotid artery segments bilaterally and there is no evidence of dissection either. External Carotid arteries: Appear unremarkable bilaterally. Vertebral arteries: The bilateral vertebral arteries appear patent though the right vertebral artery appears hypoplastic. Left vertebral artery appears unremarkable. ANEURYSM/ VASCULAR MALFORMATIONS: None. OTHER FINDINGS: None. IMPRESSION: No suspicious findings in CT Angiography of the Brain and Neck. Concordant preliminary report from [facility], 05/01/2018.
[2018-05-02] MEDS ORDERED: Piperacillin/Tazobact 3.375 GM in Sodium Chloride 0.9% 100 ML IVPB SCH (12:30)
--- NOTE | 2018-05-02 13:05 | CP.PCM.CON ---
History of Present Illness - History of Present Illness History of Present Illness: RENAL CONSULT HPI: 52 year F w/ unknown medical hx that was reportedly found unresponsive. EMS was activated she was intubated and brought to ER. She was found to be hypertensive and code stroke was called. SHe was subsequently admitted to ICU for further evaluation. She is found to have DILLON, anoxic brain injury? , acidosis and DKA. No family was available for hx at the time of evaluation and all hx is from chart. ROS: un able to obtain pt intubated and sedated Surgical hx: No known surgeries Medical hx: No known prior medical history Allergies: NKDA Social: EtOH use unknown if any ivdu Family Hx: No known family hx Medications: No home meds pe: vs as below gen: intubated and sedated sclear: anicteric op: ET tube neck: supple cv: +s1+s2 no rub lungs: reduced at bases, + mechanical bs abd: soft, no organomegaly ext: no edema neuro: intubated not responsive psych: no responsive labs and imaging revieed imp: ARF/Acidosis/ Sepsis/ ?Anoxic injury/ Sepsis/ Pneumonia/ plan: ARF seems to be consistent ATN - ischemic v septic. Agre w/ continue IVF for treatment of sepsis. Still has good UOP at this point Acidosis 2/2 to elevated lactic acid + dka. continue tx w/ insulin per DKA protocol. Continue to trend lactic acid. Monitor lactic acid level. No need for [employer]OV[employer] LO[employer] OPER[employer] ye at this point but will continue to monitor closely. NO need for IV hco3 yet, ph 7.2 - should hopefully improve w/ resolution of DKA + sepsis treatment. Abx per primary team F/u neurology evaluation Past Patient History - Tetanus Immunizations Tetanus Immunization: Unknown - Past Medical History & Family History Past Medical History?: No - Past Social History Smoking Status: Never Smoked - MUSCULOSKELETAL/RHEUMATOLOGICAL Hx Falls: Yes - PSYCHIATRIC Hx Substance Use: (UNKNOWN) - SURGICAL HISTORY Hx Surgeries: (UNOBTAINABLE) - ANESTHESIA Hx Anesthesia: (UNOBTAINABLE) Meds Allergies/Adverse Reactions: Allergies Allergy/AdvReac Type Severity Reaction Status Date / Time No Known Allergies Allergy Unverified 05/01/18 22:37 - Medications Medications: Current Medications Albuterol/Ipratropium (Duoneb 3 Mg/0.5 Mg (3 Ml) Ud) 3 ml INH RQ4 [facility] Last Admin: 05/02/18 12:26 Dose: Not Given Aspirin (Ecotrin) 81 mg PO DAILY [facility] Last Admin: 05/02/18 09:51 Dose: 81 mg Dextrose (Dextrose 50% Inj) 0 ml IV STAT PRN; Protocol PRN Reason: Hypoglycemia Protocol Dextrose (Glutose 15) 0 gm PO ONCE PRN; Protocol PRN Reason: Hypoglycemia Protocol Glucagon (Glucagen Diagnostic Kit) 0 mg IM STAT PRN; Protocol PRN Reason: Hypoglycemia Protocol Midazolam HCl 100 mg/ Dextrose 100 mls @ 1.48 mls/hr IV .Q24H PRN; Protocol PRN Reason: Sedation Last Titration: 05/02/18 11:00 Dose: 0.05 mg/kg/hr, 4 mls/hr Doxycycline Hyclate 100 mg/ (Sodium Chloride) 100 mls @ 100 mls/hr IVPB Q12H [facility]ETH; Protocol Last Admin: 05/02/18 04:52 Dose: 100 mls/hr Levetiracetam 1,000 mg/ Sodium (Chloride) 110 mls @ 420 mls/hr IVPB Q12H [facility] Last Admin: 05/02/18 11:10 Dose: 420 mls/hr Piperacillin Sod/Tazobactam (Sod 3.375 gm/ Sodium Chloride) 100 mls @ 100 mls/hr IVPB Q6H [facility]; Protocol Heparin Sodium/Sodium Chloride (Heparin 52037 Units/250ml 1/2 Normal Saline) 25,000 units in 250 mls @ 8.88 mls/hr IV .Q24H PRN; Protocol PRN Reason: ADJUST RATE PER PROTOCOL Last Admin: 05/02/18 08:48 Dose: 12 units/kg/hr, 8.88 mls/hr Dextrose (Dextrose 5% In Water 1000 Ml) 1,000 mls @ 0 mls/hr IV .Q0M PRN; Protocol PRN Reason: Hypoglycemia Protocol Lactated Ringer's (Lactated Ringer's) 1,000 mls @ 50 mls/hr IV .Q20H [facility] Last Admin: 05/02/18 06:00 Dose: 50 mls/hr Insulin Human Regular 100 unit (/ Sodium Chloride) 100 mls @ 2 mls/hr IV .Q24H [facility]; Protocol Last Titration: 05/02/18 11:00 Dose: 4 units/h, 4 mls/hr Methylprednisolone (Solu-Medrol) 40 mg IVP Q8H [facility] Last Admin: 05/02/18 11:01 Dose: 40 mg Pantoprazole Sodium (Protonix Inj) 40 mg IVP DAILY [facility] Last Admin: 05/02/18 09:50 Dose: 40 mg Sodium Bicarbonate (Sodium Bicarbonate Tab) 650 mg PO Q6 [facility] Last Admin: 05/02/18 05:44 Dose: 650 mg Results - Vital Signs Recent Vital Signs: Last Vital Signs Temp 100.1 F H 05/02/18 12:00 Pulse 127 H 05/02/18 11:45 Resp 44 H 05/02/18 11:45 BP 165/102 H 05/02/18 11:45 Pulse Ox 95 05/02/18 11:45 - Labs Result Diagrams: 05/02/18 06:10 05/02/18 06:10 Labs: Laboratory Results - last 24 hr 05/01/18 05/01/18 05/01/18 22:16 22:16 22:23 WBC 18.2 H RBC 4.56 Hgb 11.8 Hct 37.5 MCV 82.3 MCH 26.0 L MCHC 31.6 L RDW 15.1 H Plt Count 234 MPV 11.0 Neut % (Auto) 65.6 Lymph % (Auto) 28.8 Saline % (Auto) 4.5 Eos % (Auto) 0.6 Baso % (Auto) 0.5 Neut # (Auto) 12.0 H Lymph # (Auto) 5.2 H Saline # (Auto) 0.8 Eos # (Auto) 0.1 Baso # (Auto) 0.1 Neutrophils % (Manual) Band Neutrophils % Lymphocytes % (Manual) Reactive Lymphs % Monocytes % (Manual) Eosinophils % (Manual) Platelet Estimate Large Platelets Anisocytosis (manual) PT INR APTT Puncture Site pCO2 pO2 HCO3 ABG pH ABG Total CO2 ABG O2 Saturation ABG Base Excess Erik Test ABG Potassium A-a O2 Difference Respiratory Index Glucose Lactate Vent Mode Mechanical Rate FiO2 Tidal Volume PEEP Crit Value Called To Crit Value Called By Crit Value Read Back Blood Gas Notified Time Sodium 138 Potassium 3.5 L Chloride 103 Carbon Dioxide 14 L Anion Gap 25 H BUN 20 H Creatinine 1.2 Est GFR ( Amer) 57 Est GFR (Non-Af Amer) 47 Random Glucose 593 H* Hemoglobin A1c 9.9 H Serum Osmolality Calcium 7.9 L Phosphorus Magnesium Total Bilirubin 0.4 AST 230 H ALT 156 H Alkaline Phosphatase 86 Ammonia Troponin I 0.0520 NT-Pro-B Natriuret Pep Total Protein 5.5 L Albumin 2.9 L Globulin 2.6 Albumin/Globulin Ratio 1.1 Triglycerides 309 H Cholesterol 161 LDL Cholesterol Direct 104 HDL Cholesterol 20 L Lipase TSH 3rd Generation 1.86 Arterial Blood Potassium Urine Color Urine Clarity Urine pH Ur Specific [place] Urine Protein Urine Glucose (UA) Urine Ketones Urine Blood Urine Nitrate Urine Bilirubin Urine Urobilinogen Ur Leukocyte Esterase Urine WBC (Auto) Urine RBC (Auto) Ur Squamous Epith Cells Urine Bacteria Urine Osmolality Urine HCG, Qual Salicylates Urine Opiates Screen Urine Methadone Screen Acetaminophen Ur Barbiturates Screen Ur Phencyclidine Scrn Ur Amphetamines Screen U Benzodiazepines Scrn U Oth Cocaine Metabols U Cannabinoids Screen Alcohol, Quantitative 41 H B-Hydroxybutyrate 0.28 H Blood Type Antibody Screen Antibody Identification 05/01/18 05/01/18 05/01/18 23:04 23:39 23:39 WBC RBC Hgb Hct MCV MCH MCHC RDW Plt Count MPV Neut % (Auto) Lymph % (Auto) Saline % (Auto) Eos % (Auto) Baso % (Auto) Neut # (Auto) Lymph # (Auto) Saline # (Auto) Eos # (Auto) Baso # (Auto) Neutrophils % (Manual) Band Neutrophils % Lymphocytes % (Manual) Reactive Lymphs % Monocytes % (Manual) Eosinophils % (Manual) Platelet Estimate Large Platelets Anisocytosis (manual) PT 12.7 H INR 1.2 APTT 26 Puncture Site pCO2 pO2 HCO3 ABG pH ABG Total CO2 ABG O2 Saturation ABG Base Excess Erik Test ABG Potassium A-a O2 Difference Respiratory Index Glucose Lactate Vent Mode Mechanical Rate FiO2 Tidal Volume PEEP Crit Value Called To Crit Value Called By Crit Value Read Back Blood Gas Notified Time Sodium Potassium Chloride Carbon Dioxide Anion Gap BUN Creatinine Est GFR ( Amer) Est GFR (Non-Af Amer) Random Glucose Hemoglobin A1c Serum Osmolality Calcium Phosphorus Magnesium Total Bilirubin AST ALT Alkaline Phosphatase Ammonia Troponin I NT-Pro-B Natriuret Pep Total Protein Albumin Globulin Albumin/Globulin Ratio Triglycerides Cholesterol LDL Cholesterol Direct HDL Cholesterol Lipase TSH 3rd Generation Arterial Blood Potassium Urine Color Urine Clarity Urine pH Ur Specific [place] Urine Protein Urine Glucose (UA) Urine Ketones Urine Blood Urine Nitrate Urine Bilirubin Urine Urobilinogen Ur Leukocyte Esterase Urine WBC (Auto) Urine RBC (Auto) Ur Squamous Epith Cells Urine Bacteria Urine Osmolality Urine HCG, Qual Salicylates < 1.0 Urine Opiates Screen Negative Urine Methadone Screen Negative Acetaminophen < 10.0 L Ur Barbiturates Screen Negative Ur Phencyclidine Scrn Negative Ur Amphetamines Screen Negative U Benzodiazepines Scrn Positive U Oth Cocaine Metabols Negative U Cannabinoids Screen Negative Alcohol, Quantitative B-Hydroxybutyrate Blood Type Antibody Screen Antibody Identification 05/01/18 05/02/18 05/02/18 23:41 00:02 00:10 WBC RBC Hgb Hct MCV MCH MCHC RDW Plt Count MPV Neut % (Auto) Lymph % (Auto) Saline % (Auto) Eos % (Auto) Baso % (Auto) Neut # (Auto) Lymph # (Auto) Saline # (Auto) Eos # (Auto) Baso # (Auto) Neutrophils % (Manual) Band Neutrophils % Lymphocytes % (Manual) Reactive Lymphs % Monocytes % (Manual) Eosinophils % (Manual) Platelet Estimate Large Platelets Anisocytosis (manual) PT INR APTT Puncture Site R bra pCO2 34 L pO2 68 L HCO3 12.5 L ABG pH 7.16 L* ABG Total CO2 13.1 L ABG O2 Saturation 92.8 L ABG Base Excess -15.6 L Erik Test Na ABG Potassium 3.5 L A-a O2 Difference 603.0 Respiratory Index 8.9 Glucose 516 H* Lactate 5.3 H* Vent Mode Prvc Mechanical Rate 20 FiO2 100.0 Tidal Volume 450 PEEP 5 Crit Value Called To Dr griffith Crit Value Called By Marilia condon rt Crit Value Read Back Y Blood Gas Notified Time 2344 Sodium 138.0 Potassium Chloride 112.0 H Carbon Dioxide Anion Gap BUN Creatinine Est GFR ( Amer) Est GFR (Non-Af Amer) Random Glucose Hemoglobin A1c Serum Osmolality Calcium Phosphorus Magnesium Total Bilirubin AST ALT Alkaline Phosphatase Ammonia Troponin I NT-Pro-B Natriuret Pep Total Protein Albumin Globulin Albumin/Globulin Ratio Triglycerides Cholesterol LDL Cholesterol Direct HDL Cholesterol Lipase TSH 3rd Generation Arterial Blood Potassium 3.5 L Urine Color Urine Clarity Urine pH Ur Specific [place] Urine Protein Urine Glucose (UA) Urine Ketones Urine Blood Urine Nitrate Urine Bilirubin Urine Urobilinogen Ur Leukocyte Esterase Urine WBC (Auto) Urine RBC (Auto) Ur Squamous Epith Cells Urine Bacteria Urine Osmolality 450 Urine HCG, Qual Salicylates Urine Opiates Screen Urine Methadone Screen Acetaminophen Ur Barbiturates Screen Ur Phencyclidine Scrn Ur Amphetamines Screen U Benzodiazepines Scrn U Oth Cocaine Metabols U Cannabinoids Screen Alcohol, Quantitative B-Hydroxybutyrate Blood Type A NEGATIVE Antibody Screen Positive Antibody Identification Anti D 05/02/18 05/02/18 05/02/18 00:13 00:59 01:57 WBC RBC Hgb Hct MCV MCH MCHC RDW Plt Count MPV Neut % (Auto) Lymph % (Auto) Saline % (Auto) Eos % (Auto) Baso % (Auto) Neut # (Auto) Lymph # (Auto) Saline # (Auto) Eos # (Auto) Baso # (Auto) Neutrophils % (Manual) Band Neutrophils % Lymphocytes % (Manual) Reactive Lymphs % Monocytes % (Manual) Eosinophils % (Manual) Platelet Estimate Large Platelets Anisocytosis (manual) PT INR APTT Puncture Site R bra pCO2 46 H pO2 48 L HCO3 10.3 L ABG pH 7.05 L* ABG Total CO2 14.1 L ABG O2 Saturation 79.6 L ABG Base Excess -17.5 L Erik Test Na ABG Potassium 4.1 A-a O2 Difference 608.0 Respiratory Index 12.7 Glucose 728 H* D Lactate 7.6 H* Vent Mode Prvc Mechanical Rate 20 FiO2 100.0 Tidal Volume 450 PEEP 5 Crit Value Called To [facility] horticultural services supervisor Crit Value Called By Marilia condon rt Crit Value Read Back Y Blood Gas Notified Time 224 Sodium 138.0 Potassium Chloride 105.0 Carbon Dioxide Anion Gap BUN Creatinine Est GFR ( Amer) Est GFR (Non-Af Amer) Random Glucose Hemoglobin A1c Serum Osmolality 328 H Calcium Phosphorus Magnesium Total Bilirubin AST ALT Alkaline Phosphatase Ammonia Troponin I NT-Pro-B Natriuret Pep Total Protein Albumin Globulin Albumin/Globulin Ratio Triglycerides Cholesterol LDL Cholesterol Direct HDL Cholesterol Lipase TSH 3rd Generation Arterial Blood Potassium 4.1 Urine Color Urine Clarity Urine pH Ur Specific [place] Urine Protein Urine Glucose (UA) Urine Ketones Urine Blood Urine Nitrate Urine Bilirubin Urine Urobilinogen Ur Leukocyte Esterase Urine WBC (Auto) Urine RBC (Auto) Ur Squamous Epith Cells Urine Bacteria Urine Osmolality Urine HCG, Qual Negative Salicylates Urine Opiates Screen Urine Methadone Screen Acetaminophen Ur Barbiturates Screen Ur Phencyclidine Scrn Ur Amphetamines Screen U Benzodiazepines Scrn U Oth Cocaine Metabols U Cannabinoids Screen Alcohol, Quantitative B-Hydroxybutyrate Blood Type Antibody Screen Antibody Identification 05/02/18 05/02/18 05/02/18 02:48 02:48 04:48 WBC RBC Hgb Hct MCV MCH MCHC RDW Plt Count MPV Neut % (Auto) Lymph % (Auto) Saline % (Auto) Eos % (Auto) Baso % (Auto) Neut # (Auto) Lymph # (Auto) Saline # (Auto) Eos # (Auto) Baso # (Auto) Neutrophils % (Manual) Band Neutrophils % Lymphocytes % (Manual) Reactive Lymphs % Monocytes % (Manual) Eosinophils % (Manual) Platelet Estimate Large Platelets Anisocytosis (manual) PT INR APTT Puncture Site pCO2 pO2 HCO3 ABG pH ABG Total CO2 ABG O2 Saturation ABG Base Excess Erik Test ABG Potassium A-a O2 Difference Respiratory Index Glucose Lactate Vent Mode Mechanical Rate FiO2 Tidal Volume PEEP Crit Value Called To Crit Value Called By Crit Value Read Back Blood Gas Notified Time Sodium Potassium Chloride Carbon Dioxide Anion Gap BUN Creatinine Est GFR ( Amer) Est GFR (Non-Af Amer) Random Glucose Hemoglobin A1c Serum Osmolality Calcium Phosphorus Magnesium Total Bilirubin AST ALT Alkaline Phosphatase Ammonia 29 Troponin I NT-Pro-B Natriuret Pep 35.9 Total Protein Albumin Globulin Albumin/Globulin Ratio Triglycerides Cholesterol LDL Cholesterol Direct HDL Cholesterol Lipase TSH 3rd Generation Arterial Blood Potassium Urine Color Yellow Urine Clarity Clear Urine pH 5.0 Ur Specific [place] 1.018 Urine Protein Negative Urine Glucose (UA) 3+ H Urine Ketones Negative Urine Blood Negative Urine Nitrate Negative Urine Bilirubin Negative Urine Urobilinogen Normal Ur Leukocyte Esterase Neg Urine WBC (Auto) 2 Urine RBC (Auto) 2 Ur Squamous Epith Cells < 1 Urine Bacteria Rare Urine Osmolality Urine HCG, Qual Salicylates Urine Opiates Screen Urine Methadone Screen Acetaminophen Ur Barbiturates Screen Ur Phencyclidine Scrn Ur Amphetamines Screen U Benzodiazepines Scrn U Oth Cocaine Metabols U Cannabinoids Screen Alcohol, Quantitative B-Hydroxybutyrate Blood Type Antibody Screen Antibody Identification 05/02/18 05/02/18 05/02/18 05:29 06:10 06:10 WBC RBC Hgb Hct MCV MCH MCHC RDW Plt Count MPV Neut % (Auto) Lymph % (Auto) Saline % (Auto) Eos % (Auto) Baso % (Auto) Neut # (Auto) Lymph # (Auto) Saline # (Auto) Eos # (Auto) Baso # (Auto) Neutrophils % (Manual) Band Neutrophils % Lymphocytes % (Manual) Reactive Lymphs % Monocytes % (Manual) Eosinophils % (Manual) Platelet Estimate Large Platelets Anisocytosis (manual) PT INR APTT Puncture Site R bra pCO2 33 L pO2 70 L HCO3 14.1 L ABG pH 7.21 L ABG Total CO2 14.2 L ABG O2 Saturation 95.7 ABG Base Excess -13.6 L Erik Test Na ABG Potassium 4.4 A-a O2 Difference 602.0 Respiratory Index 8.6 Glucose 559 H* D Lactate 8.0 H* Vent Mode A/c pc Mechanical Rate 20 FiO2 100.0 Tidal Volume PEEP 10 Crit Value Called To Marybel moore rn Crit Value Called By Marilia condon rt Crit Value Read Back Y Blood Gas Notified Time 549 Sodium 142.0 144 Potassium 3.9 Chloride 110.0 H 112 H Carbon Dioxide 14 L Anion Gap 22 H BUN 18 H Creatinine 1.2 Est GFR ( Amer) 57 Est GFR (Non-Af Amer) 47 Random Glucose 563 H* Hemoglobin A1c Serum Osmolality Calcium 7.2 L Phosphorus Magnesium Total Bilirubin 0.6 AST 1050 H ALT 575 H D Alkaline Phosphatase 131 H D Ammonia Troponin I 2.1300 H* 2.1200 H* NT-Pro-B Natriuret Pep Total Protein 5.9 L Albumin 3.0 L Globulin 2.9 Albumin/Globulin Ratio 1.1 Triglycerides 373 H D Cholesterol 206 H LDL Cholesterol Direct 138 H HDL Cholesterol 24 L Lipase TSH 3rd Generation Arterial Blood Potassium 4.4 Urine Color Urine Clarity Urine pH Ur Specific [place] Urine Protein Urine Glucose (UA) Urine Ketones Urine Blood Urine Nitrate Urine Bilirubin Urine Urobilinogen Ur Leukocyte Esterase Urine WBC (Auto) Urine RBC (Auto) Ur Squamous Epith Cells Urine Bacteria Urine Osmolality Urine HCG, Qual Salicylates Urine Opiates Screen Urine Methadone Screen Acetaminophen Ur Barbiturates Screen Ur Phencyclidine Scrn Ur Amphetamines Screen U Benzodiazepines Scrn U Oth Cocaine Metabols U Cannabinoids Screen Alcohol, Quantitative < 10 B-Hydroxybutyrate 0.26 Blood Type Antibody Screen Antibody Identification 05/02/18 05/02/18 05/02/18 06:10 06:10 08:47 WBC 20.6 H RBC 5.94 H Hgb 15.7 D Hct 48.3 H MCV 81.3 MCH 26.5 L MCHC 32.5 L RDW 15.8 H Plt Count 257 MPV 11.3 Neut % (Auto) 93.8 H Lymph % (Auto) 4.5 L Saline % (Auto) 1.4 Eos % (Auto) 0.0 Baso % (Auto) 0.3 Neut # (Auto) 19.3 H Lymph # (Auto) 0.9 L Saline # (Auto) 0.3 Eos # (Auto) 0.0 Baso # (Auto) 0.1 Neutrophils % (Manual) 74 Band Neutrophils % 19 H* Lymphocytes % (Manual) 5 L Reactive Lymphs % 1 H Monocytes % (Manual) TEST NOT PERFORMED Eosinophils % (Manual) 1 Platelet Estimate Normal Large Platelets Present Anisocytosis (manual) Slight PT 13.0 H INR 1.2 APTT 27 Puncture Site pCO2 pO2 HCO3 ABG pH ABG Total CO2 ABG O2 Saturation ABG Base Excess Erik Test ABG Potassium A-a O2 Difference Respiratory Index Glucose Lactate Vent Mode Mechanical Rate FiO2 Tidal Volume PEEP Crit Value Called To Crit Value Called By Crit Value Read Back Blood Gas Notified Time Sodium Potassium Chloride Carbon Dioxide Anion Gap BUN Creatinine Est GFR ( Amer) Est GFR (Non-Af Amer) Random Glucose Hemoglobin A1c Serum Osmolality Calcium Phosphorus 3.6 Magnesium 3.6 H Total Bilirubin AST ALT Alkaline Phosphatase Ammonia Troponin I NT-Pro-B Natriuret Pep Total Protein Albumin Globulin Albumin/Globulin Ratio Triglycerides Cholesterol LDL Cholesterol Direct HDL Cholesterol Lipase 131 TSH 3rd Generation Arterial Blood Potassium Urine Color Urine Clarity Urine pH Ur Specific [place] Urine Protein Urine Glucose (UA) Urine Ketones Urine Blood Urine Nitrate Urine Bilirubin Urine Urobilinogen Ur Leukocyte Esterase Urine WBC (Auto) Urine RBC (Auto) Ur Squamous Epith Cells Urine Bacteria Urine Osmolality Urine HCG, Qual Salicylates Urine Opiates Screen Urine Methadone Screen Acetaminophen Ur Barbiturates Screen Ur Phencyclidine Scrn Ur Amphetamines Screen U Benzodiazepines Scrn U Oth Cocaine Metabols U Cannabinoids Screen Alcohol, Quantitative B-Hydroxybutyrate Blood Type Antibody Screen Antibody Identification
[2018-05-02 13:30] LABS: BASO % 0.1 % (0.0-2.0); HEMOGLOBIN 15.8 g/dL (11.0-16.0); LYMPH # 1.3 K/uL (1.0-4.3); LYMPH % 3.5 % (20.0-40.0); MEAN CELL VOLUME 79.3 fL (81.0-99.0); MONO # 0.9 K/uL (0.0-0.8); RED CELL DISTRIBUTION WIDTH 15.7 % (11.5-14.5)
[2018-05-02 13:37] LABS: MEAN CORPUSCULAR HEMOGLOBIN 26.6 pg (27.0-31.0); MEAN CORPUSCULAR HGB CONC 33.5 g/dL (33.0-37.0); MEAN PLATELET VOLUME 10.5 fL (7.2-11.7); MONO % 2.6 % (0.0-10.0); NEUT % 93.8 % (50.0-75.0); PLATELET COUNT 245 K/uL (130-400); RBC 5.95 Mil/uL (3.80-5.20)
[2018-05-02 13:38] LABS: ARTERIAL BLOOD GAS HCO3 20.3 mmol/L (21-28); ARTERIAL BLOOD GAS O2 SAT 97.2 % (95-98); ARTERIAL BLOOD GAS PCO2 53 mm/Hg (35-45); ARTERIAL BLOOD GAS PH 7.23 (7.35-7.45); ARTERIAL BLOOD GAS PO2 75 mm/Hg (80-100); ARTERIAL BLOOD GAS TCO2 23.8 mmol/L (22-28)
[2018-05-02 13:42] LABS: WHITE BLOOD COUNT 36.3 K/uL (4.8-10.8)
[2018-05-02 14:04] LABS: ALBUMIN 2.9 g/dL (3.5-5.0); ALT/SGPT 475 U/L (9-52); AST/SGOT 537 U/L (14-36); BLOOD UREA NITROGEN 20 mg/dL (7-17); GFR NON-AFRICAN AMERICAN 52; INR 1.2; PROTHROMBIN TIME 12.6 SECONDS (9.7-12.2)
[2018-05-02 14:07] LABS: ANISOCYTOSIS SLIGHT; BANDS 35 % (0-2); LARGE PLATELETS PRESENT; LYMPHOCYTE 7 % (20-40); METAMYELOCYTE 2 % (0-0); MONOCYTE 1 % (0-10); NEUTROPHIL 55 % (50-75); PLATELET ESTIMATE NORMAL (NORMAL); TOTAL CELLS COUNTED 100
--- NOTE | 2018-05-02 17:45 | CT ---
Date of service: 05/02/2018 PROCEDURE: CT HEAD WITHOUT CONTRAST. HISTORY: clinically anoxic COMPARISON: None available. TECHNIQUE: Axial computed tomography images were obtained through the head/brain without intravenous contrast. Radiation dose: Total exam DLP = 1267.21 mGy-cm. This CT exam was performed using one or more of the following dose reduction techniques: Automated exposure control, adjustment of the mA and/or kV according to patient size, and/or use of iterative reconstruction technique. FINDINGS: HEMORRHAGE: No intracranial hemorrhage. BRAIN: There is a interval poor corticomedullary differentiation and diffuse edema nearly eliminating the sulcal pattern at the mid inferior brain distributions. The basilar cisterns are beginning to narrow with early uncal herniation developing cerebellar and brainstem exhibit the same edematous changes suspicious for anoxic encephalopathy. VENTRICLES: There is no hydrocephalus with overall ventricular volume is appearing to diminish suggesting CALVARIUM: Unremarkable. PARANASAL SINUSES: Unremarkable as visualized. No significant inflammatory changes. MASTOID AIR CELLS: Unremarkable as visualized. No inflammatory changes. OTHER FINDINGS: None. IMPRESSION: Edematous changes are globally appreciated compatible with anoxic encephalopathy. No intracranial hemorrhage is identified however the basilar cisterns are becoming crowded and overall sulcal and ventricular volumes is diminished compatible with increasing intracranial pressure.
--- NOTE | 2018-05-02 17:51 | CT ---
Date of service: 05/02/2018 PROCEDURE: CT NECK WITHOUT CONTRAST HISTORY: suspected aspiration COMPARISON: None available. TECHNIQUE: CT of the neck without intravenous contrast. Coronal and sagittal reformats generated. Radiation dose: Total exam DLP = 429.6 mGy-cm. This CT exam was performed using one or more of the following dose reduction techniques: Automated exposure control, adjustment of the mA and/or kV according to patient size, and/or use of iterative reconstruction technique. FINDINGS: Endotracheal and nasogastric tubes are identified in position. NASOPHARYNX: Right-sided nasogastric tube with nasopharynx otherwise unremarkable. SUPRAHYOID NECK: Unremarkable oropharynx, oral cavity, parapharyngeal space and retropharyngeal space. INFRAHYOID NECK: Unremarkable larynx, hypopharynx, and supraglottic space. Vocal cords intact. Endotracheal tube is seen placed with fluid cephalad to the inflated bulb but not inferior to it. MASS: None. GLANDS: Parotid and submandibular glands unremarkable. Normal size thyroid gland, without nodule. LYMPH NODES: Numerous shotty supra and infrahyoid neck lymph nodes are identified however there is no suspicious lymphadenopathy. CERVICAL SPINE: Multilevel cervical spondylosis identified. No destructive bony lesion appreciable. OTHER FINDINGS: None. IMPRESSION: No suspicious supra or infrahyoid neck findings. Nasogastric and endotracheal tube placements are identified with likely related bilateral ethmoid sinusitis.
--- NOTE | 2018-05-02 18:07 | CP.PCM.CON ---
History of Present Illness - History of Present Illness History of Present Illness: Neurology consult dictated. Patient who has no brainstem reflexes except for overbreathing the vent when decreased sedation. Poor prognosis. 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 Plan; 1. EEG in am. 2. Decrease sedation to evaluate brain function. Thank you Dr. contreras Neurology Past Patient History - Tetanus Immunizations Tetanus Immunization: Unknown - Past Medical History & Family History Past Medical History?: No - Past Social History Smoking Status: Never Smoked - MUSCULOSKELETAL/RHEUMATOLOGICAL Hx Falls: Yes - PSYCHIATRIC Hx Substance Use: (UNKNOWN) - SURGICAL HISTORY Hx Surgeries: (UNOBTAINABLE) - ANESTHESIA Hx Anesthesia: (UNOBTAINABLE) Meds Allergies/Adverse Reactions: Allergies Allergy/AdvReac Type Severity Reaction Status Date / Time No Known Allergies Allergy Unverified 05/01/18 22:37 - Medications Medications: Current Medications Albuterol/Ipratropium (Duoneb 3 Mg/0.5 Mg (3 Ml) Ud) 3 ml INH RQ4 [facility] Last Admin: 05/02/18 15:57 Dose: Not Given Aspirin (Ecotrin) 81 mg PO DAILY [facility] Last Admin: 05/02/18 09:51 Dose: 81 mg Dextrose (Dextrose 50% Inj) 0 ml IV STAT PRN; Protocol PRN Reason: Hypoglycemia Protocol Dextrose (Glutose 15) 0 gm PO ONCE PRN; Protocol PRN Reason: Hypoglycemia Protocol Glucagon (Glucagen Diagnostic Kit) 0 mg IM STAT PRN; Protocol PRN Reason: Hypoglycemia Protocol Midazolam HCl 100 mg/ Dextrose 100 mls @ 1.48 mls/hr IV .Q24H PRN; Protocol PRN Reason: Sedation Last Titration: 05/02/18 11:00 Dose: 0.05 mg/kg/hr, 4 mls/hr Doxycycline Hyclate 100 mg/ (Sodium Chloride) 100 mls @ 100 mls/hr IVPB Q12H [facility]; Protocol Last Admin: 05/02/18 16:21 Dose: 100 mls/hr Levetiracetam 1,000 mg/ Sodium (Chloride) 110 mls @ 420 mls/hr IVPB Q12H [facility] Last Admin: 05/02/18 11:10 Dose: 420 mls/hr Piperacillin Sod/Tazobactam (Sod 3.375 gm/ Sodium Chloride) 100 mls @ 100 mls/hr IVPB Q6H [facility]; Protocol Last Admin: 05/02/18 13:27 Dose: 100 mls/hr Heparin Sodium/Sodium Chloride (Heparin 43038 Units/250ml 1/2 Normal Saline) 25,000 units in 250 mls @ 8.88 mls/hr IV .Q24H PRN; Protocol PRN Reason: ADJUST RATE PER PROTOCOL Last Admin: 05/02/18 08:48 Dose: 12 units/kg/hr, 8.88 mls/hr Dextrose (Dextrose 5% In Water 1000 Ml) 1,000 mls @ 0 mls/hr IV .Q0M PRN; Protocol PRN Reason: Hypoglycemia Protocol Lactated Ringer's (Lactated Ringer's) 1,000 mls @ 50 mls/hr IV .Q20H [facility] Last Admin: 05/02/18 06:00 Dose: 50 mls/hr Insulin Human Regular 100 unit (/ Sodium Chloride) 100 mls @ 2 mls/hr IV .Q24H [facility]; Protocol Last Titration: 05/02/18 14:00 Dose: 3 units/h, 3 mls/hr Influenza Virus Vaccine (Fluzone Quad [id number]) 60 mcg IM .ONCE ONE Stop: 05/04/18 10:01 Methylprednisolone (Solu-Medrol) 40 mg IVP Q8H [facility] Last Admin: 05/02/18 11:01 Dose: 40 mg Pantoprazole Sodium (Protonix Inj) 40 mg IVP DAILY [facility] Last Admin: 05/02/18 09:50 Dose: 40 mg Pneumococcal Polyvalent Vaccine (Pneumovax 23 Vaccine) 0.5 ml IM .ONCE ONE Stop: 05/04/18 18:01 Sodium Bicarbonate (Sodium Bicarbonate Tab) 650 mg PO Q6 [facility] Last Admin: 05/02/18 13:01 Dose: 650 mg Results - Vital Signs Recent Vital Signs: Last Vital Signs Temp 98.4 F 05/02/18 16:00 Pulse 125 H 05/02/18 17:16 Resp 41 H 05/02/18 17:16 BP 142/88 05/02/18 17:16 Pulse Ox 96 05/02/18 17:16 - Labs Result Diagrams: 05/02/18 13:23 05/02/18 13:23 Labs: Laboratory Results - last 24 hr 05/01/18 05/01/18 05/01/18 22:16 22:16 22:23 WBC 18.2 H RBC 4.56 Hgb 11.8 Hct 37.5 MCV 82.3 MCH 26.0 L MCHC 31.6 L RDW 15.1 H Plt Count 234 MPV 11.0 Neut % (Auto) 65.6 Lymph % (Auto) 28.8 [place] % (Auto) 4.5 Eos % (Auto) 0.6 Baso % (Auto) 0.5 Neut # (Auto) 12.0 H Lymph # (Auto) 5.2 H [place] # (Auto) 0.8 Eos # (Auto) 0.1 Baso # (Auto) 0.1 Neutrophils % (Manual) Band Neutrophils % Lymphocytes % (Manual) Reactive Lymphs % Monocytes % (Manual) Eosinophils % (Manual) Metamyelocytes % Platelet Estimate Large Platelets Anisocytosis (manual) PT INR APTT Puncture Site pCO2 pO2 HCO3 ABG pH ABG Total CO2 ABG O2 Saturation ABG Base Excess Erik Test ABG Potassium A-a O2 Difference Respiratory Index Glucose Lactate Vent Mode Mechanical Rate FiO2 Tidal Volume PEEP Crit Value Called To Crit Value Called By Crit Value Read Back Blood Gas Notified Time Sodium 138 Potassium 3.5 L Chloride 103 Carbon Dioxide 14 L Anion Gap 25 H BUN 20 H Creatinine 1.2 Est GFR ( Amer) 57 Est GFR (Non-Af Amer) 47 Random Glucose 593 H* Hemoglobin A1c 9.9 H Serum Osmolality Calcium 7.9 L Phosphorus Magnesium Total Bilirubin 0.4 AST 230 H ALT 156 H Alkaline Phosphatase 86 Ammonia Total Creatine Kinase Troponin I 0.0520 NT-Pro-B Natriuret Pep Total Protein 5.5 L Albumin 2.9 L Globulin 2.6 Albumin/Globulin Ratio 1.1 Triglycerides 309 H Cholesterol 161 LDL Cholesterol Direct 104 HDL Cholesterol 20 L Lipase Procalcitonin TSH 3rd Generation 1.86 Arterial Blood Potassium Urine Color Urine Clarity Urine pH Ur Specific [place] Urine Protein Urine Glucose (UA) Urine Ketones Urine Blood Urine Nitrate Urine Bilirubin Urine Urobilinogen Ur Leukocyte Esterase Urine WBC (Auto) Urine RBC (Auto) Ur Squamous Epith Cells Urine Bacteria Urine Osmolality Urine HCG, Qual Salicylates Urine Opiates Screen Urine Methadone Screen Acetaminophen Ur Barbiturates Screen Ur Phencyclidine Scrn Ur Amphetamines Screen U Benzodiazepines Scrn U Oth Cocaine Metabols U Cannabinoids Screen Alcohol, Quantitative 41 H B-Hydroxybutyrate 0.28 H HIV 1&2 Antibody Screen Blood Type Antibody Screen Antibody Identification 05/01/18 05/01/18 05/01/18 23:04 23:39 23:39 WBC RBC Hgb Hct MCV MCH MCHC RDW Plt Count MPV Neut % (Auto) Lymph % (Auto) [place] % (Auto) Eos % (Auto) Baso % (Auto) Neut # (Auto) Lymph # (Auto) [place] # (Auto) Eos # (Auto) Baso # (Auto) Neutrophils % (Manual) Band Neutrophils % Lymphocytes % (Manual) Reactive Lymphs % Monocytes % (Manual) Eosinophils % (Manual) Metamyelocytes % Platelet Estimate Large Platelets Anisocytosis (manual) PT 12.7 H INR 1.2 APTT 26 Puncture Site pCO2 pO2 HCO3 ABG pH ABG Total CO2 ABG O2 Saturation ABG Base Excess Erik Test ABG Potassium A-a O2 Difference Respiratory Index Glucose Lactate Vent Mode Mechanical Rate FiO2 Tidal Volume PEEP Crit Value Called To Crit Value Called By Crit Value Read Back Blood Gas Notified Time Sodium Potassium Chloride Carbon Dioxide Anion Gap BUN Creatinine Est GFR ( Amer) Est GFR (Non-Af Amer) Random Glucose Hemoglobin A1c Serum Osmolality Calcium Phosphorus Magnesium Total Bilirubin AST ALT Alkaline Phosphatase Ammonia Total Creatine Kinase Troponin I NT-Pro-B Natriuret Pep Total Protein Albumin Globulin Albumin/Globulin Ratio Triglycerides Cholesterol LDL Cholesterol Direct HDL Cholesterol Lipase Procalcitonin TSH 3rd Generation Arterial Blood Potassium Urine Color Urine Clarity Urine pH Ur Specific [place] Urine Protein Urine Glucose (UA) Urine Ketones Urine Blood Urine Nitrate Urine Bilirubin Urine Urobilinogen Ur Leukocyte Esterase Urine WBC (Auto) Urine RBC (Auto) Ur Squamous Epith Cells Urine Bacteria Urine Osmolality Urine HCG, Qual Salicylates < 1.0 Urine Opiates Screen Negative Urine Methadone Screen Negative Acetaminophen < 10.0 L Ur Barbiturates Screen Negative Ur Phencyclidine Scrn Negative Ur Amphetamines Screen Negative U Benzodiazepines Scrn Positive U Oth Cocaine Metabols Negative U Cannabinoids Screen Negative Alcohol, Quantitative B-Hydroxybutyrate HIV 1&2 Antibody Screen Blood Type Antibody Screen Antibody Identification 05/01/18 05/02/18 05/02/18 23:41 00:02 00:10 WBC RBC Hgb Hct MCV MCH MCHC RDW Plt Count MPV Neut % (Auto) Lymph % (Auto) [place] % (Auto) Eos % (Auto) Baso % (Auto) Neut # (Auto) Lymph # (Auto) [place] # (Auto) Eos # (Auto) Baso # (Auto) Neutrophils % (Manual) Band Neutrophils % Lymphocytes % (Manual) Reactive Lymphs % Monocytes % (Manual) Eosinophils % (Manual) Metamyelocytes % Platelet Estimate Large Platelets Anisocytosis (manual) PT INR APTT Puncture Site R bra pCO2 34 L pO2 68 L HCO3 12.5 L ABG pH 7.16 L* ABG Total CO2 13.1 L ABG O2 Saturation 92.8 L ABG Base Excess -15.6 L Erik Test Na ABG Potassium 3.5 L A-a O2 Difference 603.0 Respiratory Index 8.9 Glucose 516 H* Lactate 5.3 H* Vent Mode Prvc Mechanical Rate 20 FiO2 100.0 Tidal Volume 450 PEEP 5 Crit Value Called To Dr griffith Crit Value Called By Marilia condon rt Crit Value Read Back Y Blood Gas Notified Time 2344 Sodium 138.0 Potassium Chloride 112.0 H Carbon Dioxide Anion Gap BUN Creatinine Est GFR ( Amer) Est GFR (Non-Af Amer) Random Glucose Hemoglobin A1c Serum Osmolality Calcium Phosphorus Magnesium Total Bilirubin AST ALT Alkaline Phosphatase Ammonia Total Creatine Kinase Troponin I NT-Pro-B Natriuret Pep Total Protein Albumin Globulin Albumin/Globulin Ratio Triglycerides Cholesterol LDL Cholesterol Direct HDL Cholesterol Lipase Procalcitonin TSH 3rd Generation Arterial Blood Potassium 3.5 L Urine Color Urine Clarity Urine pH Ur Specific [place] Urine Protein Urine Glucose (UA) Urine Ketones Urine Blood Urine Nitrate Urine Bilirubin Urine Urobilinogen Ur Leukocyte Esterase Urine WBC (Auto) Urine RBC (Auto) Ur Squamous Epith Cells Urine Bacteria Urine Osmolality 450 Urine HCG, Qual Salicylates Urine Opiates Screen Urine Methadone Screen Acetaminophen Ur Barbiturates Screen Ur Phencyclidine Scrn Ur Amphetamines Screen U Benzodiazepines Scrn U Oth Cocaine Metabols U Cannabinoids Screen Alcohol, Quantitative B-Hydroxybutyrate HIV 1&2 Antibody Screen Blood Type A NEGATIVE Antibody Screen Positive Antibody Identification Anti D 05/02/18 05/02/18 05/02/18 00:13 00:59 01:57 WBC RBC Hgb Hct MCV MCH MCHC RDW Plt Count MPV Neut % (Auto) Lymph % (Auto) [place] % (Auto) Eos % (Auto) Baso % (Auto) Neut # (Auto) Lymph # (Auto) [place] # (Auto) Eos # (Auto) Baso # (Auto) Neutrophils % (Manual) Band Neutrophils % Lymphocytes % (Manual) Reactive Lymphs % Monocytes % (Manual) Eosinophils % (Manual) Metamyelocytes % Platelet Estimate Large Platelets Anisocytosis (manual) PT INR APTT Puncture Site R bra pCO2 46 H pO2 48 L HCO3 10.3 L ABG pH 7.05 L* ABG Total CO2 14.1 L ABG O2 Saturation 79.6 L ABG Base Excess -17.5 L Erik Test Na ABG Potassium 4.1 A-a O2 Difference 608.0 Respiratory Index 12.7 Glucose 728 H* D Lactate 7.6 H* Vent Mode Prvc Mechanical Rate 20 FiO2 100.0 Tidal Volume 450 PEEP 5 Crit Value 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 Crit Value Called By Marilia condon rt Crit Value Read Back Y Blood Gas Notified Time 224 Sodium 138.0 Potassium Chloride 105.0 Carbon Dioxide Anion Gap BUN Creatinine Est GFR ( Amer) Est GFR (Non-Af Amer) Random Glucose Hemoglobin A1c Serum Osmolality 328 H Calcium Phosphorus Magnesium Total Bilirubin AST ALT Alkaline Phosphatase Ammonia Total Creatine Kinase Troponin I NT-Pro-B Natriuret Pep Total Protein Albumin Globulin Albumin/Globulin Ratio Triglycerides Cholesterol LDL Cholesterol Direct HDL Cholesterol Lipase Procalcitonin TSH 3rd Generation Arterial Blood Potassium 4.1 Urine Color Urine Clarity Urine pH Ur Specific [place] Urine Protein Urine Glucose (UA) Urine Ketones Urine Blood Urine Nitrate Urine Bilirubin Urine Urobilinogen Ur Leukocyte Esterase Urine WBC (Auto) Urine RBC (Auto) Ur Squamous Epith Cells Urine Bacteria Urine Osmolality Urine HCG, Qual Negative Salicylates Urine Opiates Screen Urine Methadone Screen Acetaminophen Ur Barbiturates Screen Ur Phencyclidine Scrn Ur Amphetamines Screen U Benzodiazepines Scrn U Oth Cocaine Metabols U Cannabinoids Screen Alcohol, Quantitative B-Hydroxybutyrate HIV 1&2 Antibody Screen Blood Type Antibody Screen Antibody Identification 05/02/18 05/02/18 05/02/18 02:48 02:48 04:48 WBC RBC Hgb Hct MCV MCH MCHC RDW Plt Count MPV Neut % (Auto) Lymph % (Auto) [place] % (Auto) Eos % (Auto) Baso % (Auto) Neut # (Auto) Lymph # (Auto) [place] # (Auto) Eos # (Auto) Baso # (Auto) Neutrophils % (Manual) Band Neutrophils % Lymphocytes % (Manual) Reactive Lymphs % Monocytes % (Manual) Eosinophils % (Manual) Metamyelocytes % Platelet Estimate Large Platelets Anisocytosis (manual) PT INR APTT Puncture Site pCO2 pO2 HCO3 ABG pH ABG Total CO2 ABG O2 Saturation ABG Base Excess Erik Test ABG Potassium A-a O2 Difference Respiratory Index Glucose Lactate Vent Mode Mechanical Rate FiO2 Tidal Volume PEEP Crit Value Called To Crit Value Called By Crit Value Read Back Blood Gas Notified Time Sodium Potassium Chloride Carbon Dioxide Anion Gap BUN Creatinine Est GFR ( Amer) Est GFR (Non-Af Amer) Random Glucose Hemoglobin A1c Serum Osmolality Calcium Phosphorus Magnesium Total Bilirubin AST ALT Alkaline Phosphatase Ammonia 29 Total Creatine Kinase Troponin I NT-Pro-B Natriuret Pep 35.9 Total Protein Albumin Globulin Albumin/Globulin Ratio Triglycerides Cholesterol LDL Cholesterol Direct HDL Cholesterol Lipase Procalcitonin TSH 3rd Generation Arterial Blood Potassium Urine Color Yellow Urine Clarity Clear Urine pH 5.0 Ur Specific [place] 1.018 Urine Protein Negative Urine Glucose (UA) 3+ H Urine Ketones Negative Urine Blood Negative Urine Nitrate Negative Urine Bilirubin Negative Urine Urobilinogen Normal Ur Leukocyte Esterase Neg Urine WBC (Auto) 2 Urine RBC (Auto) 2 Ur Squamous Epith Cells < 1 Urine Bacteria Rare Urine Osmolality Urine HCG, Qual Salicylates Urine Opiates Screen Urine Methadone Screen Acetaminophen Ur Barbiturates Screen Ur Phencyclidine Scrn Ur Amphetamines Screen U Benzodiazepines Scrn U Oth Cocaine Metabols U Cannabinoids Screen Alcohol, Quantitative B-Hydroxybutyrate HIV 1&2 Antibody Screen Blood Type Antibody Screen Antibody Identification 05/02/18 05/02/18 05/02/18 05:29 06:10 06:10 WBC RBC Hgb Hct MCV MCH MCHC RDW Plt Count MPV Neut % (Auto) Lymph % (Auto) [place] % (Auto) Eos % (Auto) Baso % (Auto) Neut # (Auto) Lymph # (Auto) [place] # (Auto) Eos # (Auto) Baso # (Auto) Neutrophils % (Manual) Band Neutrophils % Lymphocytes % (Manual) Reactive Lymphs % Monocytes % (Manual) Eosinophils % (Manual) Metamyelocytes % Platelet Estimate Large Platelets Anisocytosis (manual) PT INR APTT Puncture Site R bra pCO2 33 L pO2 70 L HCO3 14.1 L ABG pH 7.21 L ABG Total CO2 14.2 L ABG O2 Saturation 95.7 ABG Base Excess -13.6 L Erik Test Na ABG Potassium 4.4 A-a O2 Difference 602.0 Respiratory Index 8.6 Glucose 559 H* D Lactate 8.0 H* Vent Mode A/c pc Mechanical Rate 20 FiO2 100.0 Tidal Volume PEEP 10 Crit Value Called To Marybel moore rn Crit Value Called By Marilia condon rt Crit Value Read Back Y Blood Gas Notified Time 549 Sodium 142.0 144 Potassium 3.9 Chloride 110.0 H 112 H Carbon Dioxide 14 L Anion Gap 22 H BUN 18 H Creatinine 1.2 Est GFR ( Amer) 57 Est GFR (Non-Af Amer) 47 Random Glucose 563 H* Hemoglobin A1c Serum Osmolality Calcium 7.2 L Phosphorus Magnesium Total Bilirubin 0.6 AST 1050 H ALT 575 H D Alkaline Phosphatase 131 H D Ammonia Total Creatine Kinase Troponin I 2.1300 H* 2.1200 H* NT-Pro-B Natriuret Pep Total Protein 5.9 L Albumin 3.0 L Globulin 2.9 Albumin/Globulin Ratio 1.1 Triglycerides 373 H D Cholesterol 206 H LDL Cholesterol Direct 138 H HDL Cholesterol 24 L Lipase Procalcitonin TSH 3rd Generation Arterial Blood Potassium 4.4 Urine Color Urine Clarity Urine pH Ur Specific [place] Urine Protein Urine Glucose (UA) Urine Ketones Urine Blood Urine Nitrate Urine Bilirubin Urine Urobilinogen Ur Leukocyte Esterase Urine WBC (Auto) Urine RBC (Auto) Ur Squamous Epith Cells Urine Bacteria Urine Osmolality Urine HCG, Qual Salicylates Urine Opiates Screen Urine Methadone Screen Acetaminophen Ur Barbiturates Screen Ur Phencyclidine Scrn Ur Amphetamines Screen U Benzodiazepines Scrn U Oth Cocaine Metabols U Cannabinoids Screen Alcohol, Quantitative < 10 B-Hydroxybutyrate 0.26 HIV 1&2 Antibody Screen Blood Type Antibody Screen Antibody Identification 05/02/18 05/02/18 05/02/18 06:10 06:10 08:47 WBC 20.6 H RBC 5.94 H Hgb 15.7 D Hct 48.3 H MCV 81.3 MCH 26.5 L MCHC 32.5 L RDW 15.8 H Plt Count 257 MPV 11.3 Neut % (Auto) 93.8 H Lymph % (Auto) 4.5 L [place] % (Auto) 1.4 Eos % (Auto) 0.0 Baso % (Auto) 0.3 Neut # (Auto) 19.3 H Lymph # (Auto) 0.9 L [place] # (Auto) 0.3 Eos # (Auto) 0.0 Baso # (Auto) 0.1 Neutrophils % (Manual) 74 Band Neutrophils % 19 H* Lymphocytes % (Manual) 5 L Reactive Lymphs % 1 H Monocytes % (Manual) TEST NOT PERFORMED Eosinophils % (Manual) 1 Metamyelocytes % Platelet Estimate Normal Large Platelets Present Anisocytosis (manual) Slight PT 13.0 H INR 1.2 APTT 27 Puncture Site pCO2 pO2 HCO3 ABG pH ABG Total CO2 ABG O2 Saturation ABG Base Excess Erik Test ABG Potassium A-a O2 Difference Respiratory Index Glucose Lactate Vent Mode Mechanical Rate FiO2 Tidal Volume PEEP Crit Value Called To Crit Value Called By Crit Value Read Back Blood Gas Notified Time Sodium Potassium Chloride Carbon Dioxide Anion Gap BUN Creatinine Est GFR ( Amer) Est GFR (Non-Af Amer) Random Glucose Hemoglobin A1c Serum Osmolality Calcium Phosphorus 3.6 Magnesium 3.6 H Total Bilirubin AST ALT Alkaline Phosphatase Ammonia Total Creatine Kinase Troponin I NT-Pro-B Natriuret Pep Total Protein Albumin Globulin Albumin/Globulin Ratio Triglycerides Cholesterol LDL Cholesterol Direct HDL Cholesterol Lipase 131 Procalcitonin TSH 3rd Generation Arterial Blood Potassium Urine Color Urine Clarity Urine pH Ur Specific [place] Urine Protein Urine Glucose (UA) Urine Ketones Urine Blood Urine Nitrate Urine Bilirubin Urine Urobilinogen Ur Leukocyte Esterase Urine WBC (Auto) Urine RBC (Auto) Ur Squamous Epith Cells Urine Bacteria Urine Osmolality Urine HCG, Qual Salicylates Urine Opiates Screen Urine Methadone Screen Acetaminophen Ur Barbiturates Screen Ur Phencyclidine Scrn Ur Amphetamines Screen U Benzodiazepines Scrn U Oth Cocaine Metabols U Cannabinoids Screen Alcohol, Quantitative B-Hydroxybutyrate HIV 1&2 Antibody Screen Blood Type Antibody Screen Antibody Identification 05/02/18 05/02/18 05/02/18 13:23 13:23 13:23 WBC 36.3 H D RBC 5.95 H Hgb 15.8 Hct 47.2 H MCV 79.3 L D MCH 26.6 L MCHC 33.5 RDW 15.7 H Plt Count 245 MPV 10.5 Neut % (Auto) 93.8 H Lymph % (Auto) 3.5 L [place] % (Auto) 2.6 Eos % (Auto) 0.0 Baso % (Auto) 0.1 Neut # (Auto) 34.0 H Lymph # (Auto) 1.3 [place] # (Auto) 0.9 H Eos # (Auto) 0.0 Baso # (Auto) 0.0 Neutrophils % (Manual) 55 Band Neutrophils % 35 H* Lymphocytes % (Manual) 7 L Reactive Lymphs % Monocytes % (Manual) 1 Eosinophils % (Manual) Metamyelocytes % 2 H Platelet Estimate Normal Large Platelets Present Anisocytosis (manual) Slight PT INR APTT Puncture Site pCO2 pO2 HCO3 ABG pH ABG Total CO2 ABG O2 Saturation ABG Base Excess Erik Test ABG Potassium A-a O2 Difference Respiratory Index Glucose Lactate Vent Mode Mechanical Rate FiO2 Tidal Volume PEEP Crit Value Called To Crit Value Called By Crit Value Read Back Blood Gas Notified Time Sodium Potassium Chloride Carbon Dioxide Anion Gap BUN Creatinine Est GFR ( Amer) Est GFR (Non-Af Amer) Random Glucose Hemoglobin A1c Serum Osmolality Calcium Phosphorus Magnesium Total Bilirubin AST ALT Alkaline Phosphatase Ammonia Total Creatine Kinase Troponin I NT-Pro-B Natriuret Pep Total Protein Albumin Globulin Albumin/Globulin Ratio Triglycerides Cholesterol LDL Cholesterol Direct HDL Cholesterol Lipase Procalcitonin 30.81 H TSH 3rd Generation Arterial Blood Potassium Urine Color Urine Clarity Urine pH Ur Specific [place] Urine Protein Urine Glucose (UA) Urine Ketones Urine Blood Urine Nitrate Urine Bilirubin Urine Urobilinogen Ur Leukocyte Esterase Urine WBC (Auto) Urine RBC (Auto) Ur Squamous Epith Cells Urine Bacteria Urine Osmolality Urine HCG, Qual Salicylates Urine Opiates Screen Urine Methadone Screen Acetaminophen Ur Barbiturates Screen Ur Phencyclidine Scrn Ur Amphetamines Screen U Benzodiazepines Scrn U Oth Cocaine Metabols U Cannabinoids Screen Alcohol, Quantitative B-Hydroxybutyrate HIV 1&2 Antibody Screen Negative Blood Type Antibody Screen Antibody Identification 05/02/18 05/02/18 05/02/18 13:23 13:23 13:23 WBC RBC Hgb Hct MCV MCH MCHC RDW Plt Count MPV Neut % (Auto) Lymph % (Auto) [place] % (Auto) Eos % (Auto) Baso % (Auto) Neut # (Auto) Lymph # (Auto) [place] # (Auto) Eos # (Auto) Baso # (Auto) Neutrophils % (Manual) Band Neutrophils % Lymphocytes % (Manual) Reactive Lymphs % Monocytes % (Manual) Eosinophils % (Manual) Metamyelocytes % Platelet Estimate Large Platelets Anisocytosis (manual) PT 12.6 H INR 1.2 APTT 81 H D Puncture Site pCO2 pO2 HCO3 ABG pH ABG Total CO2 ABG O2 Saturation ABG Base Excess Erik Test ABG Potassium A-a O2 Difference Respiratory Index Glucose Lactate Vent Mode Mechanical Rate FiO2 Tidal Volume PEEP Crit Value Called To Crit Value Called By Crit Value Read Back Blood Gas Notified Time Sodium 150 H Potassium 5.0 Chloride 118 H Carbon Dioxide 20 L Anion Gap 17 BUN 20 H Creatinine 1.1 Est GFR ( Amer) > 60 Est GFR (Non-Af Amer) 52 Random Glucose 253 H Hemoglobin A1c Serum Osmolality 329 H Calcium 9.0 Phosphorus 1.6 L Magnesium 1.8 Total Bilirubin 0.6 AST 537 H D ALT 475 H Alkaline Phosphatase 100 Ammonia Total Creatine Kinase 220 H Troponin I 5.0600 H* NT-Pro-B Natriuret Pep Total Protein 5.7 L Albumin 2.9 L Globulin 2.8 Albumin/Globulin Ratio 1.0 Triglycerides Cholesterol LDL Cholesterol Direct HDL Cholesterol Lipase Procalcitonin TSH 3rd Generation Arterial Blood Potassium Urine Color Urine Clarity Urine pH Ur Specific [place] Urine Protein Urine Glucose (UA) Urine Ketones Urine Blood Urine Nitrate Urine Bilirubin Urine Urobilinogen Ur Leukocyte Esterase Urine WBC (Auto) Urine RBC (Auto) Ur Squamous Epith Cells Urine Bacteria Urine Osmolality Urine HCG, Qual Salicylates Urine Opiates Screen Urine Methadone Screen Acetaminophen Ur Barbiturates Screen Ur Phencyclidine Scrn Ur Amphetamines Screen U Benzodiazepines Scrn U Oth Cocaine Metabols U Cannabinoids Screen Alcohol, Quantitative B-Hydroxybutyrate HIV 1&2 Antibody Screen Blood Type Antibody Screen Antibody Identification 05/02/18 13:35 WBC RBC Hgb Hct MCV MCH MCHC RDW Plt Count MPV Neut % (Auto) Lymph % (Auto) [place] % (Auto) Eos % (Auto) Baso % (Auto) Neut # (Auto) Lymph # (Auto) [place] # (Auto) Eos # (Auto) Baso # (Auto) Neutrophils % (Manual) Band Neutrophils % Lymphocytes % (Manual) Reactive Lymphs % Monocytes % (Manual) Eosinophils % (Manual) Metamyelocytes % Platelet Estimate Large Platelets Anisocytosis (manual) PT INR APTT Puncture Site Rba pCO2 53 H pO2 75 L HCO3 20.3 L ABG pH 7.23 L ABG Total CO2 23.8 ABG O2 Saturation 97.2 ABG Base Excess -5.8 L Erik Test Na ABG Potassium 4.4 A-a O2 Difference 287.0 Respiratory Index 3.8 Glucose 260 H Lactate 4.0 H* Vent Mode Mechanical Rate 30 FiO2 60.0 Tidal Volume PEEP 10 Crit Value Called To Crit Value Called By Crit Value Read Back Blood Gas Notified Time Sodium 148.0 Potassium Chloride 117.0 H Carbon Dioxide Anion Gap BUN Creatinine Est GFR ( Amer) Est GFR (Non-Af Amer) Random Glucose Hemoglobin A1c Serum Osmolality Calcium Phosphorus Magnesium Total Bilirubin AST ALT Alkaline Phosphatase Ammonia Total Creatine Kinase Troponin I NT-Pro-B Natriuret Pep Total Protein Albumin Globulin Albumin/Globulin Ratio Triglycerides Cholesterol LDL Cholesterol Direct HDL Cholesterol Lipase Procalcitonin TSH 3rd Generation Arterial Blood Potassium 4.4 Urine Color Urine Clarity Urine pH Ur Specific [place] Urine Protein Urine Glucose (UA) Urine Ketones Urine Blood Urine Nitrate Urine Bilirubin Urine Urobilinogen Ur Leukocyte Esterase Urine WBC (Auto) Urine RBC (Auto) Ur Squamous Epith Cells Urine Bacteria Urine Osmolality Urine HCG, Qual Salicylates Urine Opiates Screen Urine Methadone Screen Acetaminophen Ur Barbiturates Screen Ur Phencyclidine Scrn Ur Amphetamines Screen U Benzodiazepines Scrn U Oth Cocaine Metabols U Cannabinoids Screen Alcohol, Quantitative B-Hydroxybutyrate HIV 1&2 Antibody Screen Blood Type Antibody Screen Antibody Identification
--- NOTE | 2018-05-02 18:10 | CT ---
Date of service: 05/02/2018 PROCEDURE: CT Chest, Abdomen and Pelvis without intravenous contrast HISTORY: suspect aspiration COMPARISON: None available. TECHNIQUE: Radiation dose: Total exam DLP = 1385.1 mGy-cm. This CT exam was performed using one or more of the following dose reduction techniques: Automated exposure control, adjustment of the mA and/or kV according to patient size, and/or use of iterative reconstruction technique. FINDINGS: CT CHEST WITHOUT CONTRAST: Restrained motion artifacted exam limits the interpretation. LUNGS: Multifocal ground-glass opacity and infiltrates are identified at the bilateral upper and lower lobes as well as the right middle lobe in the dependent portions are affected and may reflect aspiration pneumonitis. Clinically correlate further. Central airways appear clear nevertheless. No gross mass identified. ET tube is identified placed terminating 5 cm above the aiden. MEDIASTINUM: Unremarkable. Normal caliber aorta and pulmonary arterial trunk. Normal size heart. LYMPH NODES: No significant lymphadenopathy. PLEURA: Trace bilateral pleural effusions. No pneumothorax bilaterally. BONES: Unremarkable. OTHER FINDINGS: None. CT ABDOMEN AND PELVIS: LIVER: Unremarkable. No gross lesion or ductal dilatation. GALLBLADDER AND BILE DUCTS: Unremarkable. PANCREAS: Unremarkable. No gross lesion or ductal dilatation. SPLEEN: Unremarkable. ADRENALS: Unremarkable. No mass. KIDNEYS AND URETERS: Unremarkable. No hydronephrosis. No solid mass. VASCULATURE: No aortic atherosclerotic calcification or mural plaque present. Unremarkable. No aortic aneurysm. BOWEL: There is thickening of the descending colon and possibly the ascending colon in a pattern suspicious for segmental colitis. Local pericolic reaction is questioned however motion artifacts distort evaluation. Trace ascites is seen at the perihepatic space inferiorly and in the inferior pelvis. No free intra peritoneal gas collection identified. APPENDIX: Normal appendix. LYMPH NODES: Unremarkable. No enlarged lymph nodes. BLADDER: Hyperdense material is appreciated urinary bladder the Alvarado catheter decompressing the lumen. Consider possible injected iodinated contrast material into the bladder. The differential diagnosis is hemorrhage. No hemorrhage is seen in the bilateral kidneys however, including pelvocaliceal systems bilaterally. REPRODUCTIVE: Unremarkable. BONES: No acute fracture. OTHER FINDINGS: None. IMPRESSION: 1. Multifocal infiltrates are identified at the bilateral upper and lower lobes as well as the right middle lobe in a pattern a could reflect aspiration given dependent subsegment affected. Clinically correlate further. 2. Minimal bilateral pleural effusions. 3. Endotracheal intubation as discussed above. 4. No fracture or pneumothorax throughout. 5. Findings suspicious for segmental colitis involving separate vascular distributions of the colon. Limited abdominal and pelvic ascites noted. No free intra peritoneal gas collection appreciable. Further clinical correlation is recommended. 6. Iodinated contrast material or blood products isolated in the urinary bladder lumen. Clinically correlate further. Suboptimal examination due to respiratory motion and lack of contrast agents
--- NOTE | 2018-05-02 18:24 | CP.PCM.CON ---
History of Present Illness - History of Present Illness History of Present Illness: 52 year F w/ unknown medical hx was found unresponsive at home and intubated in the field She was found to be hypertensive and code stroke was called. Now in ICU with DILLON, anoxic brain injury? , metabolic/resp acidosis and DKA. Family at bedside Cultures pending IV antibiotics in progress Surgical hx: No known surgeries Medical hx: No known prior medical history Allergies: NKDA Social: EtOH Family Hx: No known family hx Review of Systems - Review of Systems Systems not reviewed;Unavailable: Altered Mental Status All systems: reviewed and no additional remarkable complaints except - Constitutional Constitutional: As Per HPI Past Patient History - Tetanus Immunizations Tetanus Immunization: Unknown - Past Medical History & Family History Past Medical History?: No - Past Social History Smoking Status: Never Smoked - MUSCULOSKELETAL/RHEUMATOLOGICAL Hx Falls: Yes - PSYCHIATRIC Hx Substance Use: (UNKNOWN) - SURGICAL HISTORY Hx Surgeries: (UNOBTAINABLE) - ANESTHESIA Hx Anesthesia: (UNOBTAINABLE) Meds Allergies/Adverse Reactions: Allergies Allergy/AdvReac Type Severity Reaction Status Date / Time No Known Allergies Allergy Unverified 05/01/18 22:37 - Medications Medications: Current Medications Albuterol/Ipratropium (Duoneb 3 Mg/0.5 Mg (3 Ml) Ud) 3 ml INH RQ4 [facility] Last Admin: 05/02/18 15:57 Dose: Not Given Aspirin (Ecotrin) 81 mg PO DAILY [facility] Last Admin: 05/02/18 09:51 Dose: 81 mg Dextrose (Dextrose 50% Inj) 0 ml IV STAT PRN; Protocol PRN Reason: Hypoglycemia Protocol Dextrose (Glutose 15) 0 gm PO ONCE PRN; Protocol PRN Reason: Hypoglycemia Protocol Glucagon (Glucagen Diagnostic Kit) 0 mg IM STAT PRN; Protocol PRN Reason: Hypoglycemia Protocol Midazolam HCl 100 mg/ Dextrose 100 mls @ 1.48 mls/hr IV .Q24H PRN; Protocol PRN Reason: Sedation Last Titration: 05/02/18 11:00 Dose: 0.05 mg/kg/hr, 4 mls/hr Doxycycline Hyclate 100 mg/ (Sodium Chloride) 100 mls @ 100 mls/hr IVPB Q12H [facility]; Protocol Last Admin: 05/02/18 16:21 Dose: 100 mls/hr Levetiracetam 1,000 mg/ Sodium (Chloride) 110 mls @ 420 mls/hr IVPB Q12H [facility] Last Admin: 05/02/18 11:10 Dose: 420 mls/hr Piperacillin Sod/Tazobactam (Sod 3.375 gm/ Sodium Chloride) 100 mls @ 100 mls/hr IVPB Q6H [facility]; Protocol Last Admin: 05/02/18 13:27 Dose: 100 mls/hr Heparin Sodium/Sodium Chloride (Heparin 49081 Units/250ml 1/2 Normal Saline) 25,000 units in 250 mls @ 8.88 mls/hr IV .Q24H PRN; Protocol PRN Reason: ADJUST RATE PER PROTOCOL Last Admin: 05/02/18 08:48 Dose: 12 units/kg/hr, 8.88 mls/hr Dextrose (Dextrose 5% In Water 1000 Ml) 1,000 mls @ 0 mls/hr IV .Q0M PRN; Protocol PRN Reason: Hypoglycemia Protocol Lactated Ringer's (Lactated Ringer's) 1,000 mls @ 50 mls/hr IV .Q20H [facility] Last Admin: 05/02/18 06:00 Dose: 50 mls/hr Insulin Human Regular 100 unit (/ Sodium Chloride) 100 mls @ 2 mls/hr IV .Q24H [facility]; Protocol Last Titration: 05/02/18 14:00 Dose: 3 units/h, 3 mls/hr Vancomycin HCl 1,000 mg/ (Sodium Chloride) 200 mls @ 133.333 mls/hr IVPB Q12H [facility]; Protocol Influenza Virus Vaccine (Fluzone Quad [id number]) 60 mcg IM .ONCE ONE Stop: 05/04/18 10:01 Methylprednisolone (Solu-Medrol) 40 mg IVP Q8H [facility] Last Admin: 05/02/18 11:01 Dose: 40 mg Pantoprazole Sodium (Protonix Inj) 40 mg IVP DAILY [facility] Last Admin: 05/02/18 09:50 Dose: 40 mg Pneumococcal Polyvalent Vaccine (Pneumovax 23 Vaccine) 0.5 ml IM .ONCE ONE Stop: 05/04/18 18:01 Sodium Bicarbonate (Sodium Bicarbonate Tab) 650 mg PO Q6 [facility] Last Admin: 05/02/18 13:01 Dose: 650 mg Physical Exam - Constitutional Appears: Confused - Head Exam Head Exam: NORMOCEPHALIC Additional comments: intubated - Eye Exam Eye Exam: absent: Scleral icterus - ENT Exam ENT Exam: Normal External Ear Exam - Neck Exam Neck exam: Negative for: Lymphadenopathy - Respiratory Exam Respiratory Exam: Decreased Breath Sounds, Rhonchi - Cardiovascular Exam Cardiovascular Exam: Tachycardia, REGULAR RHYTHM, +S1, +S2 - GI/Abdominal Exam GI & Abdominal Exam: Diminished Bowel Sounds, Distended, Soft. absent: Guarding, Rebound, Rigid, Tenderness - Rectal Exam Rectal Exam: Deferred - Exam Exam: NORMAL INSPECTION - Extremities Exam Extremities exam: Positive for: pedal pulses present. Negative for: calf tenderness, pedal edema, tenderness - Back Exam Back exam: absent: CVA tenderness (L), CVA tenderness (R), paraspinal tenderness - Neurological Exam Neurological exam: Altered - Psychiatric Exam Psychiatric exam: Depressed - Skin Skin Exam: Dry Results - Vital Signs Recent Vital Signs: Last Vital Signs Temp 98.4 F 05/02/18 16:00 Pulse 125 H 05/02/18 17:16 Resp 41 H 05/02/18 17:16 BP 142/88 05/02/18 17:16 Pulse Ox 96 05/02/18 17:16 - Labs Result Diagrams: 05/02/18 13:23 05/02/18 13:23 Labs: Laboratory Results - last 24 hr 05/01/18 05/01/18 05/01/18 22:16 22:16 22:23 WBC 18.2 H RBC 4.56 Hgb 11.8 Hct 37.5 MCV 82.3 MCH 26.0 L MCHC 31.6 L RDW 15.1 H Plt Count 234 MPV 11.0 Neut % (Auto) 65.6 Lymph % (Auto) 28.8 [place] % (Auto) 4.5 Eos % (Auto) 0.6 Baso % (Auto) 0.5 Neut # (Auto) 12.0 H Lymph # (Auto) 5.2 H [place] # (Auto) 0.8 Eos # (Auto) 0.1 Baso # (Auto) 0.1 Neutrophils % (Manual) Band Neutrophils % Lymphocytes % (Manual) Reactive Lymphs % Monocytes % (Manual) Eosinophils % (Manual) Metamyelocytes % Platelet Estimate Large Platelets Anisocytosis (manual) PT INR APTT Puncture Site pCO2 pO2 HCO3 ABG pH ABG Total CO2 ABG O2 Saturation ABG Base Excess Erik Test ABG Potassium A-a O2 Difference Respiratory Index Glucose Lactate Vent Mode Mechanical Rate FiO2 Tidal Volume PEEP Crit Value Called To Crit Value Called By Crit Value Read Back Blood Gas Notified Time Sodium 138 Potassium 3.5 L Chloride 103 Carbon Dioxide 14 L Anion Gap 25 H BUN 20 H Creatinine 1.2 Est GFR ( Amer) 57 Est GFR (Non-Af Amer) 47 Random Glucose 593 H* Hemoglobin A1c 9.9 H Serum Osmolality Calcium 7.9 L Phosphorus Magnesium Total Bilirubin 0.4 AST 230 H ALT 156 H Alkaline Phosphatase 86 Ammonia Total Creatine Kinase Troponin I 0.0520 NT-Pro-B Natriuret Pep Total Protein 5.5 L Albumin 2.9 L Globulin 2.6 Albumin/Globulin Ratio 1.1 Triglycerides 309 H Cholesterol 161 LDL Cholesterol Direct 104 HDL Cholesterol 20 L Lipase Procalcitonin TSH 3rd Generation 1.86 Arterial Blood Potassium Urine Color Urine Clarity Urine pH Ur Specific [place] Urine Protein Urine Glucose (UA) Urine Ketones Urine Blood Urine Nitrate Urine Bilirubin Urine Urobilinogen Ur Leukocyte Esterase Urine WBC (Auto) Urine RBC (Auto) Ur Squamous Epith Cells Urine Bacteria Urine Osmolality Urine HCG, Qual Salicylates Urine Opiates Screen Urine Methadone Screen Acetaminophen Ur Barbiturates Screen Ur Phencyclidine Scrn Ur Amphetamines Screen U Benzodiazepines Scrn U Oth Cocaine Metabols U Cannabinoids Screen Alcohol, Quantitative 41 H B-Hydroxybutyrate 0.28 H HIV 1&2 Antibody Screen Blood Type Antibody Screen Antibody Identification 05/01/18 05/01/18 05/01/18 23:04 23:39 23:39 WBC RBC Hgb Hct MCV MCH MCHC RDW Plt Count MPV Neut % (Auto) Lymph % (Auto) [place] % (Auto) Eos % (Auto) Baso % (Auto) Neut # (Auto) Lymph # (Auto) [place] # (Auto) Eos # (Auto) Baso # (Auto) Neutrophils % (Manual) Band Neutrophils % Lymphocytes % (Manual) Reactive Lymphs % Monocytes % (Manual) Eosinophils % (Manual) Metamyelocytes % Platelet Estimate Large Platelets Anisocytosis (manual) PT 12.7 H INR 1.2 APTT 26 Puncture Site pCO2 pO2 HCO3 ABG pH ABG Total CO2 ABG O2 Saturation ABG Base Excess Erik Test ABG Potassium A-a O2 Difference Respiratory Index Glucose Lactate Vent Mode Mechanical Rate FiO2 Tidal Volume PEEP Crit Value Called To Crit Value Called By Crit Value Read Back Blood Gas Notified Time Sodium Potassium Chloride Carbon Dioxide Anion Gap BUN Creatinine Est GFR ( Amer) Est GFR (Non-Af Amer) Random Glucose Hemoglobin A1c Serum Osmolality Calcium Phosphorus Magnesium Total Bilirubin AST ALT Alkaline Phosphatase Ammonia Total Creatine Kinase Troponin I NT-Pro-B Natriuret Pep Total Protein Albumin Globulin Albumin/Globulin Ratio Triglycerides Cholesterol LDL Cholesterol Direct HDL Cholesterol Lipase Procalcitonin TSH 3rd Generation Arterial Blood Potassium Urine Color Urine Clarity Urine pH Ur Specific [place] Urine Protein Urine Glucose (UA) Urine Ketones Urine Blood Urine Nitrate Urine Bilirubin Urine Urobilinogen Ur Leukocyte Esterase Urine WBC (Auto) Urine RBC (Auto) Ur Squamous Epith Cells Urine Bacteria Urine Osmolality Urine HCG, Qual Salicylates < 1.0 Urine Opiates Screen Negative Urine Methadone Screen Negative Acetaminophen < 10.0 L Ur Barbiturates Screen Negative Ur Phencyclidine Scrn Negative Ur Amphetamines Screen Negative U Benzodiazepines Scrn Positive U Oth Cocaine Metabols Negative U Cannabinoids Screen Negative Alcohol, Quantitative B-Hydroxybutyrate HIV 1&2 Antibody Screen Blood Type Antibody Screen Antibody Identification 05/01/18 05/02/18 05/02/18 23:41 00:02 00:10 WBC RBC Hgb Hct MCV MCH MCHC RDW Plt Count MPV Neut % (Auto) Lymph % (Auto) [place] % (Auto) Eos % (Auto) Baso % (Auto) Neut # (Auto) Lymph # (Auto) [place] # (Auto) Eos # (Auto) Baso # (Auto) Neutrophils % (Manual) Band Neutrophils % Lymphocytes % (Manual) Reactive Lymphs % Monocytes % (Manual) Eosinophils % (Manual) Metamyelocytes % Platelet Estimate Large Platelets Anisocytosis (manual) PT INR APTT Puncture Site R bra pCO2 34 L pO2 68 L HCO3 12.5 L ABG pH 7.16 L* ABG Total CO2 13.1 L ABG O2 Saturation 92.8 L ABG Base Excess -15.6 L Erik Test Na ABG Potassium 3.5 L A-a O2 Difference 603.0 Respiratory Index 8.9 Glucose 516 H* Lactate 5.3 H* Vent Mode Prvc Mechanical Rate 20 FiO2 100.0 Tidal Volume 450 PEEP 5 Crit Value Called To Dr griffith Crit Value Called By Marilia condon rt Crit Value Read Back Y Blood Gas Notified Time 2344 Sodium 138.0 Potassium Chloride 112.0 H Carbon Dioxide Anion Gap BUN Creatinine Est GFR ( Amer) Est GFR (Non-Af Amer) Random Glucose Hemoglobin A1c Serum Osmolality Calcium Phosphorus Magnesium Total Bilirubin AST ALT Alkaline Phosphatase Ammonia Total Creatine Kinase Troponin I NT-Pro-B Natriuret Pep Total Protein Albumin Globulin Albumin/Globulin Ratio Triglycerides Cholesterol LDL Cholesterol Direct HDL Cholesterol Lipase Procalcitonin TSH 3rd Generation Arterial Blood Potassium 3.5 L Urine Color Urine Clarity Urine pH Ur Specific [place] Urine Protein Urine Glucose (UA) Urine Ketones Urine Blood Urine Nitrate Urine Bilirubin Urine Urobilinogen Ur Leukocyte Esterase Urine WBC (Auto) Urine RBC (Auto) Ur Squamous Epith Cells Urine Bacteria Urine Osmolality 450 Urine HCG, Qual Salicylates Urine Opiates Screen Urine Methadone Screen Acetaminophen Ur Barbiturates Screen Ur Phencyclidine Scrn Ur Amphetamines Screen U Benzodiazepines Scrn U Oth Cocaine Metabols U Cannabinoids Screen Alcohol, Quantitative B-Hydroxybutyrate HIV 1&2 Antibody Screen Blood Type A NEGATIVE Antibody Screen Positive Antibody Identification Anti D 05/02/18 05/02/18 05/02/18 00:13 00:59 01:57 WBC RBC Hgb Hct MCV MCH MCHC RDW Plt Count MPV Neut % (Auto) Lymph % (Auto) [place] % (Auto) Eos % (Auto) Baso % (Auto) Neut # (Auto) Lymph # (Auto) [place] # (Auto) Eos # (Auto) Baso # (Auto) Neutrophils % (Manual) Band Neutrophils % Lymphocytes % (Manual) Reactive Lymphs % Monocytes % (Manual) Eosinophils % (Manual) Metamyelocytes % Platelet Estimate Large Platelets Anisocytosis (manual) PT INR APTT Puncture Site R bra pCO2 46 H pO2 48 L HCO3 10.3 L ABG pH 7.05 L* ABG Total CO2 14.1 L ABG O2 Saturation 79.6 L ABG Base Excess -17.5 L Erik Test Na ABG Potassium 4.1 A-a O2 Difference 608.0 Respiratory Index 12.7 Glucose 728 H* D Lactate 7.6 H* Vent Mode Prvc Mechanical Rate 20 FiO2 100.0 Tidal Volume 450 PEEP 5 Crit Value Called To [facility] icu specialist Crit Value Called By Marilia condon rt Crit Value Read Back Y Blood Gas Notified Time 224 Sodium 138.0 Potassium Chloride 105.0 Carbon Dioxide Anion Gap BUN Creatinine Est GFR ( Amer) Est GFR (Non-Af Amer) Random Glucose Hemoglobin A1c Serum Osmolality 328 H Calcium Phosphorus Magnesium Total Bilirubin AST ALT Alkaline Phosphatase Ammonia Total Creatine Kinase Troponin I NT-Pro-B Natriuret Pep Total Protein Albumin Globulin Albumin/Globulin Ratio Triglycerides Cholesterol LDL Cholesterol Direct HDL Cholesterol Lipase Procalcitonin TSH 3rd Generation Arterial Blood Potassium 4.1 Urine Color Urine Clarity Urine pH Ur Specific [place] Urine Protein Urine Glucose (UA) Urine Ketones Urine Blood Urine Nitrate Urine Bilirubin Urine Urobilinogen Ur Leukocyte Esterase Urine WBC (Auto) Urine RBC (Auto) Ur Squamous Epith Cells Urine Bacteria Urine Osmolality Urine HCG, Qual Negative Salicylates Urine Opiates Screen Urine Methadone Screen Acetaminophen Ur Barbiturates Screen Ur Phencyclidine Scrn Ur Amphetamines Screen U Benzodiazepines Scrn U Oth Cocaine Metabols U Cannabinoids Screen Alcohol, Quantitative B-Hydroxybutyrate HIV 1&2 Antibody Screen Blood Type Antibody Screen Antibody Identification 05/02/18 05/02/18 05/02/18 02:48 02:48 04:48 WBC RBC Hgb Hct MCV MCH MCHC RDW Plt Count MPV Neut % (Auto) Lymph % (Auto) [place] % (Auto) Eos % (Auto) Baso % (Auto) Neut # (Auto) Lymph # (Auto) [place] # (Auto) Eos # (Auto) Baso # (Auto) Neutrophils % (Manual) Band Neutrophils % Lymphocytes % (Manual) Reactive Lymphs % Monocytes % (Manual) Eosinophils % (Manual) Metamyelocytes % Platelet Estimate Large Platelets Anisocytosis (manual) PT INR APTT Puncture Site pCO2 pO2 HCO3 ABG pH ABG Total CO2 ABG O2 Saturation ABG Base Excess Erik Test ABG Potassium A-a O2 Difference Respiratory Index Glucose Lactate Vent Mode Mechanical Rate FiO2 Tidal Volume PEEP Crit Value Called To Crit Value Called By Crit Value Read Back Blood Gas Notified Time Sodium Potassium Chloride Carbon Dioxide Anion Gap BUN Creatinine Est GFR ( Amer) Est GFR (Non-Af Amer) Random Glucose Hemoglobin A1c Serum Osmolality Calcium Phosphorus Magnesium Total Bilirubin AST ALT Alkaline Phosphatase Ammonia 29 Total Creatine Kinase Troponin I NT-Pro-B Natriuret Pep 35.9 Total Protein Albumin Globulin Albumin/Globulin Ratio Triglycerides Cholesterol LDL Cholesterol Direct HDL Cholesterol Lipase Procalcitonin TSH 3rd Generation Arterial Blood Potassium Urine Color Yellow Urine Clarity Clear Urine pH 5.0 Ur Specific [place] 1.018 Urine Protein Negative Urine Glucose (UA) 3+ H Urine Ketones Negative Urine Blood Negative Urine Nitrate Negative Urine Bilirubin Negative Urine Urobilinogen Normal Ur Leukocyte Esterase Neg Urine WBC (Auto) 2 Urine RBC (Auto) 2 Ur Squamous Epith Cells < 1 Urine Bacteria Rare Urine Osmolality Urine HCG, Qual Salicylates Urine Opiates Screen Urine Methadone Screen Acetaminophen Ur Barbiturates Screen Ur Phencyclidine Scrn Ur Amphetamines Screen U Benzodiazepines Scrn U Oth Cocaine Metabols U Cannabinoids Screen Alcohol, Quantitative B-Hydroxybutyrate HIV 1&2 Antibody Screen Blood Type Antibody Screen Antibody Identification 05/02/18 05/02/18 05/02/18 05:29 06:10 06:10 WBC RBC Hgb Hct MCV MCH MCHC RDW Plt Count MPV Neut % (Auto) Lymph % (Auto) [place] % (Auto) Eos % (Auto) Baso % (Auto) Neut # (Auto) Lymph # (Auto) [place] # (Auto) Eos # (Auto) Baso # (Auto) Neutrophils % (Manual) Band Neutrophils % Lymphocytes % (Manual) Reactive Lymphs % Monocytes % (Manual) Eosinophils % (Manual) Metamyelocytes % Platelet Estimate Large Platelets Anisocytosis (manual) PT INR APTT Puncture Site R bra pCO2 33 L pO2 70 L HCO3 14.1 L ABG pH 7.21 L ABG Total CO2 14.2 L ABG O2 Saturation 95.7 ABG Base Excess -13.6 L Erik Test Na ABG Potassium 4.4 A-a O2 Difference 602.0 Respiratory Index 8.6 Glucose 559 H* D Lactate 8.0 H* Vent Mode A/c pc Mechanical Rate 20 FiO2 100.0 Tidal Volume PEEP 10 Crit Value Called To Marybel moore rn Crit Value Called By Marilia condon rt Crit Value Read Back Y Blood Gas Notified Time 549 Sodium 142.0 144 Potassium 3.9 Chloride 110.0 H 112 H Carbon Dioxide 14 L Anion Gap 22 H BUN 18 H Creatinine 1.2 Est GFR ( Amer) 57 Est GFR (Non-Af Amer) 47 Random Glucose 563 H* Hemoglobin A1c Serum Osmolality Calcium 7.2 L Phosphorus Magnesium Total Bilirubin 0.6 AST 1050 H ALT 575 H D Alkaline Phosphatase 131 H D Ammonia Total Creatine Kinase Troponin I 2.1300 H* 2.1200 H* NT-Pro-B Natriuret Pep Total Protein 5.9 L Albumin 3.0 L Globulin 2.9 Albumin/Globulin Ratio 1.1 Triglycerides 373 H D Cholesterol 206 H LDL Cholesterol Direct 138 H HDL Cholesterol 24 L Lipase Procalcitonin TSH 3rd Generation Arterial Blood Potassium 4.4 Urine Color Urine Clarity Urine pH Ur Specific [place] Urine Protein Urine Glucose (UA) Urine Ketones Urine Blood Urine Nitrate Urine Bilirubin Urine Urobilinogen Ur Leukocyte Esterase Urine WBC (Auto) Urine RBC (Auto) Ur Squamous Epith Cells Urine Bacteria Urine Osmolality Urine HCG, Qual Salicylates Urine Opiates Screen Urine Methadone Screen Acetaminophen Ur Barbiturates Screen Ur Phencyclidine Scrn Ur Amphetamines Screen U Benzodiazepines Scrn U Oth Cocaine Metabols U Cannabinoids Screen Alcohol, Quantitative < 10 B-Hydroxybutyrate 0.26 HIV 1&2 Antibody Screen Blood Type Antibody Screen Antibody Identification 05/02/18 05/02/18 05/02/18 06:10 06:10 08:47 WBC 20.6 H RBC 5.94 H Hgb 15.7 D Hct 48.3 H MCV 81.3 MCH 26.5 L MCHC 32.5 L RDW 15.8 H Plt Count 257 MPV 11.3 Neut % (Auto) 93.8 H Lymph % (Auto) 4.5 L [place] % (Auto) 1.4 Eos % (Auto) 0.0 Baso % (Auto) 0.3 Neut # (Auto) 19.3 H Lymph # (Auto) 0.9 L [place] # (Auto) 0.3 Eos # (Auto) 0.0 Baso # (Auto) 0.1 Neutrophils % (Manual) 74 Band Neutrophils % 19 H* Lymphocytes % (Manual) 5 L Reactive Lymphs % 1 H Monocytes % (Manual) TEST NOT PERFORMED Eosinophils % (Manual) 1 Metamyelocytes % Platelet Estimate Normal Large Platelets Present Anisocytosis (manual) Slight PT 13.0 H INR 1.2 APTT 27 Puncture Site pCO2 pO2 HCO3 ABG pH ABG Total CO2 ABG O2 Saturation ABG Base Excess Erik Test ABG Potassium A-a O2 Difference Respiratory Index Glucose Lactate Vent Mode Mechanical Rate FiO2 Tidal Volume PEEP Crit Value Called To Crit Value Called By Crit Value Read Back Blood Gas Notified Time Sodium Potassium Chloride Carbon Dioxide Anion Gap BUN Creatinine Est GFR ( Amer) Est GFR (Non-Af Amer) Random Glucose Hemoglobin A1c Serum Osmolality Calcium Phosphorus 3.6 Magnesium 3.6 H Total Bilirubin AST ALT Alkaline Phosphatase Ammonia Total Creatine Kinase Troponin I NT-Pro-B Natriuret Pep Total Protein Albumin Globulin Albumin/Globulin Ratio Triglycerides Cholesterol LDL Cholesterol Direct HDL Cholesterol Lipase 131 Procalcitonin TSH 3rd Generation Arterial Blood Potassium Urine Color Urine Clarity Urine pH Ur Specific [place] Urine Protein Urine Glucose (UA) Urine Ketones Urine Blood Urine Nitrate Urine Bilirubin Urine Urobilinogen Ur Leukocyte Esterase Urine WBC (Auto) Urine RBC (Auto) Ur Squamous Epith Cells Urine Bacteria Urine Osmolality Urine HCG, Qual Salicylates Urine Opiates Screen Urine Methadone Screen Acetaminophen Ur Barbiturates Screen Ur Phencyclidine Scrn Ur Amphetamines Screen U Benzodiazepines Scrn U Oth Cocaine Metabols U Cannabinoids Screen Alcohol, Quantitative B-Hydroxybutyrate HIV 1&2 Antibody Screen Blood Type Antibody Screen Antibody Identification 05/02/18 05/02/18 05/02/18 13:23 13:23 13:23 WBC 36.3 H D RBC 5.95 H Hgb 15.8 Hct 47.2 H MCV 79.3 L D MCH 26.6 L MCHC 33.5 RDW 15.7 H Plt Count 245 MPV 10.5 Neut % (Auto) 93.8 H Lymph % (Auto) 3.5 L [place] % (Auto) 2.6 Eos % (Auto) 0.0 Baso % (Auto) 0.1 Neut # (Auto) 34.0 H Lymph # (Auto) 1.3 [place] # (Auto) 0.9 H Eos # (Auto) 0.0 Baso # (Auto) 0.0 Neutrophils % (Manual) 55 Band Neutrophils % 35 H* Lymphocytes % (Manual) 7 L Reactive Lymphs % Monocytes % (Manual) 1 Eosinophils % (Manual) Metamyelocytes % 2 H Platelet Estimate Normal Large Platelets Present Anisocytosis (manual) Slight PT INR APTT Puncture Site pCO2 pO2 HCO3 ABG pH ABG Total CO2 ABG O2 Saturation ABG Base Excess Erik Test ABG Potassium A-a O2 Difference Respiratory Index Glucose Lactate Vent Mode Mechanical Rate FiO2 Tidal Volume PEEP Crit Value Called To Crit Value Called By Crit Value Read Back Blood Gas Notified Time Sodium Potassium Chloride Carbon Dioxide Anion Gap BUN Creatinine Est GFR ( Amer) Est GFR (Non-Af Amer) Random Glucose Hemoglobin A1c Serum Osmolality Calcium Phosphorus Magnesium Total Bilirubin AST ALT Alkaline Phosphatase Ammonia Total Creatine Kinase Troponin I NT-Pro-B Natriuret Pep Total Protein Albumin Globulin Albumin/Globulin Ratio Triglycerides Cholesterol LDL Cholesterol Direct HDL Cholesterol Lipase Procalcitonin 30.81 H TSH 3rd Generation Arterial Blood Potassium Urine Color Urine Clarity Urine pH Ur Specific [place] Urine Protein Urine Glucose (UA) Urine Ketones Urine Blood Urine Nitrate Urine Bilirubin Urine Urobilinogen Ur Leukocyte Esterase Urine WBC (Auto) Urine RBC (Auto) Ur Squamous Epith Cells Urine Bacteria Urine Osmolality Urine HCG, Qual Salicylates Urine Opiates Screen Urine Methadone Screen Acetaminophen Ur Barbiturates Screen Ur Phencyclidine Scrn Ur Amphetamines Screen U Benzodiazepines Scrn U Oth Cocaine Metabols U Cannabinoids Screen Alcohol, Quantitative B-Hydroxybutyrate HIV 1&2 Antibody Screen Negative Blood Type Antibody Screen Antibody Identification 05/02/18 05/02/18 05/02/18 13:23 13:23 13:23 WBC RBC Hgb Hct MCV MCH MCHC RDW Plt Count MPV Neut % (Auto) Lymph % (Auto) [place] % (Auto) Eos % (Auto) Baso % (Auto) Neut # (Auto) Lymph # (Auto) [place] # (Auto) Eos # (Auto) Baso # (Auto) Neutrophils % (Manual) Band Neutrophils % Lymphocytes % (Manual) Reactive Lymphs % Monocytes % (Manual) Eosinophils % (Manual) Metamyelocytes % Platelet Estimate Large Platelets Anisocytosis (manual) PT 12.6 H INR 1.2 APTT 81 H D Puncture Site pCO2 pO2 HCO3 ABG pH ABG Total CO2 ABG O2 Saturation ABG Base Excess Erik Test ABG Potassium A-a O2 Difference Respiratory Index Glucose Lactate Vent Mode Mechanical Rate FiO2 Tidal Volume PEEP Crit Value Called To Crit Value Called By Crit Value Read Back Blood Gas Notified Time Sodium 150 H Potassium 5.0 Chloride 118 H Carbon Dioxide 20 L Anion Gap 17 BUN 20 H Creatinine 1.1 Est GFR ( Amer) > 60 Est GFR (Non-Af Amer) 52 Random Glucose 253 H Hemoglobin A1c Serum Osmolality 329 H Calcium 9.0 Phosphorus 1.6 L Magnesium 1.8 Total Bilirubin 0.6 AST 537 H D ALT 475 H Alkaline Phosphatase 100 Ammonia Total Creatine Kinase 220 H Troponin I 5.0600 H* NT-Pro-B Natriuret Pep Total Protein 5.7 L Albumin 2.9 L Globulin 2.8 Albumin/Globulin Ratio 1.0 Triglycerides Cholesterol LDL Cholesterol Direct HDL Cholesterol Lipase Procalcitonin TSH 3rd Generation Arterial Blood Potassium Urine Color Urine Clarity Urine pH Ur Specific [place] Urine Protein Urine Glucose (UA) Urine Ketones Urine Blood Urine Nitrate Urine Bilirubin Urine Urobilinogen Ur Leukocyte Esterase Urine WBC (Auto) Urine RBC (Auto) Ur Squamous Epith Cells Urine Bacteria Urine Osmolality Urine HCG, Qual Salicylates Urine Opiates Screen Urine Methadone Screen Acetaminophen Ur Barbiturates Screen Ur Phencyclidine Scrn Ur Amphetamines Screen U Benzodiazepines Scrn U Oth Cocaine Metabols U Cannabinoids Screen Alcohol, Quantitative B-Hydroxybutyrate HIV 1&2 Antibody Screen Blood Type Antibody Screen Antibody Identification 05/02/18 13:35 WBC RBC Hgb Hct MCV MCH MCHC RDW Plt Count MPV Neut % (Auto) Lymph % (Auto) [place] % (Auto) Eos % (Auto) Baso % (Auto) Neut # (Auto) Lymph # (Auto) [place] # (Auto) Eos # (Auto) Baso # (Auto) Neutrophils % (Manual) Band Neutrophils % Lymphocytes % (Manual) Reactive Lymphs % Monocytes % (Manual) Eosinophils % (Manual) Metamyelocytes % Platelet Estimate Large Platelets Anisocytosis (manual) PT INR APTT Puncture Site Rba pCO2 53 H pO2 75 L HCO3 20.3 L ABG pH 7.23 L ABG Total CO2 23.8 ABG O2 Saturation 97.2 ABG Base Excess -5.8 L Erik Test Na ABG Potassium 4.4 A-a O2 Difference 287.0 Respiratory Index 3.8 Glucose 260 H Lactate 4.0 H* Vent Mode Mechanical Rate 30 FiO2 60.0 Tidal Volume PEEP 10 Crit Value Called To Crit Value Called By Crit Value Read Back Blood Gas Notified Time Sodium 148.0 Potassium Chloride 117.0 H Carbon Dioxide Anion Gap BUN Creatinine Est GFR ( Amer) Est GFR (Non-Af Amer) Random Glucose Hemoglobin A1c Serum Osmolality Calcium Phosphorus Magnesium Total Bilirubin AST ALT Alkaline Phosphatase Ammonia Total Creatine Kinase Troponin I NT-Pro-B Natriuret Pep Total Protein Albumin Globulin Albumin/Globulin Ratio Triglycerides Cholesterol LDL Cholesterol Direct HDL Cholesterol Lipase Procalcitonin TSH 3rd Generation Arterial Blood Potassium 4.4 Urine Color Urine Clarity Urine pH Ur Specific Hagan Urine Protein Urine Glucose (UA) Urine Ketones Urine Blood Urine Nitrate Urine Bilirubin Urine Urobilinogen Ur Leukocyte Esterase Urine WBC (Auto) Urine RBC (Auto) Ur Squamous Epith Cells Urine Bacteria Urine Osmolality Urine HCG, Qual Salicylates Urine Opiates Screen Urine Methadone Screen Acetaminophen Ur Barbiturates Screen Ur Phencyclidine Scrn Ur Amphetamines Screen U Benzodiazepines Scrn U Oth Cocaine Metabols U Cannabinoids Screen Alcohol, Quantitative B-Hydroxybutyrate HIV 1&2 Antibody Screen Blood Type Antibody Screen Antibody Identification Assessment & Plan (1) Hyperglycemia Status: Acute (2) Leukocytosis Status: Acute (3) Respiratory failure Status: Acute - Assessment and Plan (Free Text) Assessment: sepsis work up in progress possible suicide attempt with asphyxia and complications cont empiric IV antibitics Vanco/ merrem Neuro eval and follow up
[2018-05-02] MEDS: Meropenem 1 GM in Sodium Chloride 0.9% 100 ML IVPB SCH (18:54)
--- NOTE | 2018-05-02 19:37 | CP.PCM.PN ---
Subjective - Date & Time of Evaluation Date of Evaluation: 05/02/18 Time of Evaluation: 19:17 - Subjective Subjective: Patient has been evaluated multiple times today, in the morning skin lesion round the neck noticed, suspicion of asphyxia form strangulation, [facility] called who had been in investigation today and felt it was suicide, the and son later in the evening at the bedside when asked again mentioned a piece of ligature noticed round the neck when she was found and she was hanging. Patient had been unresponsive all day, the neuroexam has showed no gag, corneal, reflex, no purposeful movement, no response except breathing over the vent. WAN Ct repeated showed significant edema and poor box white differentiation, impending herniation. Patient has been hyper osmolar, elevated sodium to 150. Chest ct suggesting multifocal aspiration pna, ? colitis. Glucose improved with insulin drip. Vent setting changed to improve CO2 in keep co2 low with brain edema. Spoke to the family this is shock to them, at time of discussion they felt there may be hope, miracle may happen. Exam Chest b/l rattling, on vent increased RR fio2 60% peep of 10 CVS tachycardia PA soft Ext no edema RN CHRONIC as above in note HEENT no corneal reflex, no gag, unresponsive Neck ligature digna noticed around more on right going behind and up suggesting hanging. Assessment Asphaxia form hanging, determined suicidal as per early investigation by [facility] Anoxic damage on the CT with edema Patient hyperosmolar and increased sodium only possibility of hyperventilation to improve 2nd NSTEMI due to above will discuss cardiology to dc heparin Aspiration PNA DKA resolving on insulin drip Poor prognosis Plan Hyperventilate Palliative care Abx Vent support Gi/DVT prophylaxis See orders for detail. Objective - Vital Signs/Intake and Output Vital Signs (last 24 hours): Temp Pulse Resp BP Pulse Ox 98.4 F 124 H 41 H 147/72 95 05/02/18 16:00 05/02/18 18:15 05/02/18 18:15 05/02/18 18:15 05/02/18 18:15 Intake and Output: 05/02/18 05/03/18 18:59 06:59 Intake Total 1121.8 110.9 Output Total 1810 Balance -688.2 110.9 - Medications Medications: Current Medications Albuterol/Ipratropium (Duoneb 3 Mg/0.5 Mg (3 Ml) Ud) 3 ml INH RQ4 BETH Last Admin: 05/02/18 15:57 Dose: Not Given Aspirin (Ecotrin) 81 mg PO DAILY BETH Last Admin: 05/02/18 09:51 Dose: 81 mg Dextrose (Dextrose 50% Inj) 0 ml IV STAT PRN; Protocol PRN Reason: Hypoglycemia Protocol Dextrose (Glutose 15) 0 gm PO ONCE PRN; Protocol PRN Reason: Hypoglycemia Protocol Glucagon (Glucagen Diagnostic Kit) 0 mg IM STAT PRN; Protocol PRN Reason: Hypoglycemia Protocol Midazolam HCl 100 mg/ Dextrose 100 mls @ 1.48 mls/hr IV .Q24H PRN; Protocol PRN Reason: Sedation Last Titration: 05/02/18 11:00 Dose: 0.05 mg/kg/hr, 4 mls/hr Doxycycline Hyclate 100 mg/ (Sodium Chloride) 100 mls @ 100 mls/hr IVPB Q12H BETH; Protocol Last Admin: 05/02/18 16:21 Dose: 100 mls/hr Levetiracetam 1,000 mg/ Sodium (Chloride) 110 mls @ 420 mls/hr IVPB Q12H [facility]ETH Last Admin: 05/02/18 11:10 Dose: 420 mls/hr Heparin Sodium/Sodium Chloride (Heparin 52147 Units/250ml 1/2 Normal Saline) 25,000 units in 250 mls @ 8.88 mls/hr IV .Q24H PRN; Protocol PRN Reason: ADJUST RATE PER PROTOCOL Last Admin: 05/02/18 08:48 Dose: 12 units/kg/hr, 8.88 mls/hr Dextrose (Dextrose 5% In Water 1000 Ml) 1,000 mls @ 0 mls/hr IV .Q0M PRN; Protocol PRN Reason: Hypoglycemia Protocol Lactated Ringer's (Lactated Ringer's) 1,000 mls @ 50 mls/hr IV .Q20H BETH Last Admin: 05/02/18 06:00 Dose: 50 mls/hr Insulin Human Regular 100 unit (/ Sodium Chloride) 100 mls @ 2 mls/hr IV .Q24H BETH; Protocol Last Titration: 05/02/18 18:56 Dose: 2 units/h, 2 mls/hr Vancomycin HCl 1,000 mg/ (Sodium Chloride) 200 mls @ 133.333 mls/hr IVPB Q12H BETH; Protocol Meropenem 1 gm/ Sodium (Chloride) 100 mls @ 100 mls/hr IVPB Q8H [facility]ETH; Protocol Last Admin: 05/02/18 18:54 Dose: 100 mls/hr Influenza Virus Vaccine (Fluzone Quad [id number]) 60 mcg IM .ONCE ONE Stop: 05/04/18 10:01 Methylprednisolone (Solu-Medrol) 40 mg IVP Q8H [facility] Last Admin: 05/02/18 18:55 Dose: 40 mg Pantoprazole Sodium (Protonix Inj) 40 mg IVP DAILY [facility] Last Admin: 05/02/18 09:50 Dose: 40 mg Pneumococcal Polyvalent Vaccine (Pneumovax 23 Vaccine) 0.5 ml IM .ONCE ONE Stop: 05/04/18 18:01 Sodium Bicarbonate (Sodium Bicarbonate Tab) 650 mg PO Q6 [facility] Last Admin: 05/02/18 18:55 Dose: 650 mg - Labs Labs: 05/02/18 13:23 05/02/18 13:23 PT 12.6 SECONDS (9.7-12.2) H 05/02/18 13:23 INR 1.2 05/02/18 13:23 APTT 81 SECONDS (21-34) H D 05/02/18 13:23
[2018-05-02 19:54] LABS: INTRACELLULAR PARASITE NEGATIVE (NEGATIVE)
[2018-05-02 20:40] LABS: ARTERIAL BLOOD GAS HCO3 22.6 mmol/L (21-28); ARTERIAL BLOOD GAS O2 SAT 98.7 % (95-98); ARTERIAL BLOOD GAS PCO2 56 mm/Hg (35-45); ARTERIAL BLOOD GAS PH 7.26 (7.35-7.45); ARTERIAL BLOOD GAS PO2 80 mm/Hg (80-100); ARTERIAL BLOOD GAS TCO2 26.8 mmol/L (22-28)
[2018-05-03] MEDS: Albuterol-Ipratrop 3 mg / 0.5 (3 ml) UD INH SCH ×6 (00:38→19:39)
[2018-05-03] MEDS: levETIRAcetam 1,000 MG in Sodium Chloride 0.9% 100 ML IVPB SCH ×3 (00:49→23:41)
[2018-05-03] MEDS: Midazolam 50 mg/10 ml 100 MG in Dextrose 5% In Water 80 ML IV PRN (00:56)
[2018-05-03 00:57] LABS: ABG ALLEN TEST POS; ARTERIAL BLOOD GAS O2 SAT 98.6 % (95-98); ARTERIAL BLOOD GAS PCO2 23 mm/Hg (35-45); ARTERIAL BLOOD GAS PH 7.58 (7.35-7.45); ARTERIAL BLOOD GAS PO2 76 mm/Hg (80-100); ARTERIAL BLOOD GAS TCO2 22.3 mmol/L (22-28)
[2018-05-03] MEDS: Meropenem 1 GM in Sodium Chloride 0.9% 100 ML IVPB SCH ×3 (01:44→17:43)
[2018-05-03] MEDS: Lactated Ringer's 1,000 ML IV SCH ×2 (01:44→22:00)
[2018-05-03] MEDS: MethylPREDNISolone 40 mg Vial IVP SCH ×2 (02:33→10:22)
--- NOTE | 2018-05-03 05:03 | CON ---
DATE: 05/02/2018 Neurology consult called by Dr. George Kerns for Ms. Silva. HISTORY OF PRESENT ILLNESS: The patient is a 52-year-old woman from [facility] with no known past medical history who was brought to the emergency room by EMS after being found unresponsive by her and family members at a constitution party that she was having at her house. The patient is from [facility] and her lives here in the . According to the patient's , she has been complaining of headaches for the past year, which has been getting worse as well as nausea. In the evening of the event, the patient was at a constitution party with her and had a few beers. She went to the bathroom and apparently she was then found unresponsive on the ground by herself. EMS was called and the patient was intubated and admitted to [facility]. On initial presentation, the patient's pupils were pinpoint and nonreactive, she did not have any corneal, she did not have doll's eyes, and her breathing was extremely compromised. In addition, code stroke was initiated. She is not a tPA candidate. The patient had a CT of the head done, which was normal and showed no edema. CTA of the head and neck was done as well, which was normal. Upon further examination of the patient, it was found that the patient had a linear scar extending from the right auricular to the left auricular region and extending back to the occipital region, which appeared to be secondary to a rope around her neck. She also had multiple bruises in her under arms as well as the anterior aspect of her forearms. The patient was admitted to the ICU, intubated, placed on sedation. Last night, Dr. Mares tried to decrease the sedation. She event slightly, but there is no change in her mental status or her brain function. At this point when I examined her, the patient was unresponsive; pupils were 2 mm, fixed and dilated; corneal reflexes were not present; gag was not present; doll's eyes were not present. The patient was on Versed at this time. There was no seizure activity. EEG was not able to be obtained at this time. Police were involved with this case as there is currently some investigation ongoing. There seems to be a discrepancy in the stories that the family is giving. Further details will be given after the police report is completed. REVIEW OF SYSTEMS: Not obtainable. PHYSICAL EXAMINATION: NEUROLOGIC: On exam, pupils are 2 mm, fixed and dilated. There is no corneal. There is no gag reflex. There is no spontaneous movement. There is no withdrawal to sternal rub. There is no gag reflex. Reflexes are +2 to upper and lower bilaterally. As noted in the prior note, the following lesions were noted. There is a linear lesion around the base of the neck extending from the left to the right ear along with multiple bruises and also scratch monge and nail monge on her left lip and upper chin area. LABORATORY DATA: Labs are as follows: White count 36.3, hemoglobin 15.8, hematocrit 47.2, platelets 245. Sodium 150, potassium 5, BUN 20, creatinine 1.1, random glucose 253. Urine was normal. Toxicology was positive for 41 of alcohol and beta hydroxybutyrate, which is an acetone. Serology HSV 1 and [address] of the head and neck were normal as was CTA of the head and neck as well with no stenosis. 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 It is not clear whether this was suicide or homicide or aggravated assault. Current police investigation is undergoing. At this point, prognosis is extremely poor. PLAN: We will have to determine the brain over the next couple of days. We will need brain flow as well as brain protocol. I will also load her with Keppra 1000 mg to allow for any seizure that might be ensuing. Thank you for this consult. Claudia Vanegas MD
[2018-05-03 06:02] LABS: BASO # 0.1 K/uL (0.0-0.2); BASO % 0.3 % (0.0-2.0); EOS % 0.1 % (0.0-4.0); LYMPH # 1.6 K/uL (1.0-4.3); LYMPH % 5.5 % (20.0-40.0); MEAN CELL VOLUME 78.8 fL (81.0-99.0); MEAN CORPUSCULAR HEMOGLOBIN 26.2 pg (27.0-31.0); MEAN CORPUSCULAR HGB CONC 33.2 g/dL (33.0-37.0); MEAN PLATELET VOLUME 11.3 fL (7.2-11.7); MONO # 1.1 K/uL (0.0-0.8); MONO % 3.6 % (0.0-10.0); NEUT # 26.6 K/uL (1.8-7.0); NEUT % 90.5 % (50.0-75.0); PLATELET COUNT 190 K/uL (130-400); RBC 4.83 Mil/uL (3.80-5.20); RED CELL DISTRIBUTION WIDTH 16.1 % (11.5-14.5); WHITE BLOOD COUNT 29.3 K/uL (4.8-10.8)
[2018-05-03 06:14] LABS: HEMOGLOBIN 12.6 g/dL (11.0-16.0)
[2018-05-03 06:15] LABS: ABG ALLEN TEST POS; ARTERIAL BLOOD GAS HCO3 24.1 mmol/L (21-28); ARTERIAL BLOOD GAS O2 SAT 96.3 % (95-98); ARTERIAL BLOOD GAS PCO2 24 mm/Hg (35-45); ARTERIAL BLOOD GAS PH 7.53 (7.35-7.45); ARTERIAL BLOOD GAS PO2 59 mm/Hg (80-100); ARTERIAL BLOOD GAS TCO2 20.8 mmol/L (22-28)
[2018-05-03 06:36] LABS: ALBUMIN 2.6 g/dL (3.5-5.0); ALT/SGPT 300 U/L (9-52); AST/SGOT 200 U/L (14-36); BLOOD UREA NITROGEN 22 mg/dL (7-17); CALCIUM 8.2 mg/dl (8.6-10.4); GFR NON-AFRICAN AMERICAN 52
--- NOTE | 2018-05-03 08:05 | CP.PCM.CON ---
History of Present Illness - History of Present Illness History of Present Illness: Lamont Barclay, PGY-[address] Gay Ms. Hodge is a 52 year old female with no known PMHx who was brought to the emergency room by EMS after being found unresponsive by family. Patient intubated, remains unresponsive in ICU. Past Patient History - Tetanus Immunizations Tetanus Immunization: Unknown - Past Medical History & Family History Past Medical History?: No - Past Social History Smoking Status: Never Smoked - MUSCULOSKELETAL/RHEUMATOLOGICAL Hx Falls: Yes - PSYCHIATRIC Hx Substance Use: (UNKNOWN) - SURGICAL HISTORY Hx Surgeries: (UNOBTAINABLE) - ANESTHESIA Hx Anesthesia: (UNOBTAINABLE) Meds Allergies/Adverse Reactions: Allergies Allergy/AdvReac Type Severity Reaction Status Date / Time No Known Allergies Allergy Unverified 05/01/18 22:37 - Medications Medications: Current Medications Albuterol/Ipratropium (Duoneb 3 Mg/0.5 Mg (3 Ml) Ud) 3 ml INH RQ4 BETH Last Admin: 05/03/18 03:21 Dose: 3 ml Aspirin (Ecotrin) 81 mg PO DAILY BETH Last Admin: 05/02/18 09:51 Dose: 81 mg Dextrose (Dextrose 50% Inj) 0 ml IV STAT PRN; Protocol PRN Reason: Hypoglycemia Protocol Dextrose (Glutose 15) 0 gm PO ONCE PRN; Protocol PRN Reason: Hypoglycemia Protocol Glucagon (Glucagen Diagnostic Kit) 0 mg IM STAT PRN; Protocol PRN Reason: Hypoglycemia Protocol Midazolam HCl 100 mg/ Dextrose 100 mls @ 1.48 mls/hr IV .Q24H PRN; Protocol PRN Reason: Sedation Last Titration: 05/03/18 07:06 Dose: 0.02 mg/kg/hr, 2 mls/hr Doxycycline Hyclate 100 mg/ (Sodium Chloride) 100 mls @ 100 mls/hr IVPB Q12H BETH; Protocol Last Admin: 05/03/18 03:11 Dose: 100 mls/hr Levetiracetam 1,000 mg/ Sodium (Chloride) 110 mls @ 420 mls/hr IVPB Q12H BETH Last Admin: 05/03/18 00:49 Dose: 420 mls/hr Dextrose (Dextrose 5% In Water 1000 Ml) 1,000 mls @ 0 mls/hr IV .Q0M PRN; Protocol PRN Reason: Hypoglycemia Protocol Lactated Ringer's (Lactated Ringer's) 1,000 mls @ 50 mls/hr IV .Q20H BETH Last Admin: 05/03/18 01:44 Dose: 50 mls/hr Insulin Human Regular 100 unit (/ Sodium Chloride) 100 mls @ 2 mls/hr IV .Q24H BETH; Protocol Last Titration: 05/02/18 18:56 Dose: 2 units/h, 2 mls/hr Vancomycin HCl 1,000 mg/ (Sodium Chloride) 200 mls @ 133.333 mls/hr IVPB Q12H BETH; Protocol Last Admin: 05/03/18 06:11 Dose: 133.333 mls/hr Meropenem 1 gm/ Sodium (Chloride) 100 mls @ 100 mls/hr IVPB Q8H BETH; Protocol Last Admin: 05/03/18 01:44 Dose: 100 mls/hr Influenza Virus Vaccine (Fluzone Quad [id number]) 60 mcg IM .ONCE ONE Stop: 05/04/18 10:01 Methylprednisolone (Solu-Medrol) 40 mg IVP Q8H [facility] Last Admin: 05/03/18 02:33 Dose: 40 mg Pantoprazole Sodium (Protonix Inj) 40 mg IVP DAILY [facility] Last Admin: 05/02/18 09:50 Dose: 40 mg Pneumococcal Polyvalent Vaccine (Pneumovax 23 Vaccine) 0.5 ml IM .ONCE ONE Stop: 05/04/18 18:01 Sodium Bicarbonate (Sodium Bicarbonate Tab) 650 mg PO Q6 [facility] Last Admin: 05/03/18 06:11 Dose: 650 mg Physical Exam - Constitutional Appears: In Acute Distress - Respiratory Exam Additional comments: Mechanical Ventilator - Cardiovascular Exam Cardiovascular Exam: Tachycardia, +S1, +S2 - Extremities Exam Extremities exam: Positive for: normal inspection. Negative for: pedal edema - Skin Skin Exam: Dry, Intact, Normal Color, Warm Results - Vital Signs Recent Vital Signs: Last Vital Signs Temp 99.6 F 05/03/18 04:00 Pulse 105 H 05/03/18 07:30 Resp 24 05/03/18 07:30 BP 80/56 L 05/03/18 07:14 Pulse Ox 100 05/03/18 07:30 - Labs Result Diagrams: 05/03/18 15:02 05/03/18 15:02 Labs: Laboratory Results - last 24 hr 05/01/18 05/02/18 05/02/18 22:23 06:10 06:10 WBC RBC Hgb Hct MCV MCH MCHC RDW Plt Count MPV Neut % (Auto) Lymph % (Auto) Griggs % (Auto) Eos % (Auto) Baso % (Auto) Neut # (Auto) Lymph # (Auto) Griggs # (Auto) Eos # (Auto) Baso # (Auto) Neutrophils % (Manual) 74 Band Neutrophils % 19 H* Lymphocytes % (Manual) 5 L Reactive Lymphs % 1 H Monocytes % (Manual) TEST NOT PERFORMED Eosinophils % (Manual) 1 Metamyelocytes % Platelet Estimate Normal Large Platelets Present Anisocytosis (manual) Slight PT INR APTT Puncture Site pCO2 pO2 HCO3 ABG pH ABG Total CO2 ABG O2 Saturation ABG Base Excess Erik Test ABG Potassium A-a O2 Difference Respiratory Index Glucose Lactate Vent Mode Mechanical Rate FiO2 Tidal Volume PEEP Crit Value Called To Crit Value Called By Crit Value Read Back Blood Gas Notified Time Sodium Potassium Chloride Carbon Dioxide Anion Gap BUN Creatinine Est GFR ( Amer) Est GFR (Non-Af Amer) Random Glucose Hemoglobin A1c 9.9 H Serum Osmolality Calcium Phosphorus Magnesium Total Bilirubin AST ALT Alkaline Phosphatase Total Creatine Kinase Troponin I Total Protein Albumin Globulin Albumin/Globulin Ratio Lipase 131 Procalcitonin Arterial Blood Potassium Vancomycin Trough Acetaminophen HIV 1&2 Antibody Screen Blood Parasites Smear 05/02/18 05/02/18 05/02/18 08:47 13:23 13:23 WBC 36.3 H D RBC 5.95 H Hgb 15.8 Hct 47.2 H MCV 79.3 L D MCH 26.6 L MCHC 33.5 RDW 15.7 H Plt Count 245 MPV 10.5 Neut % (Auto) 93.8 H Lymph % (Auto) 3.5 L Griggs % (Auto) 2.6 Eos % (Auto) 0.0 Baso % (Auto) 0.1 Neut # (Auto) 34.0 H Lymph # (Auto) 1.3 Griggs # (Auto) 0.9 H Eos # (Auto) 0.0 Baso # (Auto) 0.0 Neutrophils % (Manual) 55 Band Neutrophils % 35 H* Lymphocytes % (Manual) 7 L Reactive Lymphs % Monocytes % (Manual) 1 Eosinophils % (Manual) Metamyelocytes % 2 H Platelet Estimate Normal Large Platelets Present Anisocytosis (manual) Slight PT 13.0 H INR 1.2 APTT 27 Puncture Site pCO2 pO2 HCO3 ABG pH ABG Total CO2 ABG O2 Saturation ABG Base Excess Erik Test ABG Potassium A-a O2 Difference Respiratory Index Glucose Lactate Vent Mode Mechanical Rate FiO2 Tidal Volume PEEP Crit Value Called To Crit Value Called By Crit Value Read Back Blood Gas Notified Time Sodium Potassium Chloride Carbon Dioxide Anion Gap BUN Creatinine Est GFR ( Amer) Est GFR (Non-Af Amer) Random Glucose Hemoglobin A1c Serum Osmolality Calcium Phosphorus Magnesium Total Bilirubin AST ALT Alkaline Phosphatase Total Creatine Kinase Troponin I Total Protein Albumin Globulin Albumin/Globulin Ratio Lipase Procalcitonin Arterial Blood Potassium Vancomycin Trough Acetaminophen HIV 1&2 Antibody Screen Negative Blood Parasites Smear 05/02/18 05/02/18 05/02/18 13:23 13:23 13:23 WBC RBC Hgb Hct MCV MCH MCHC RDW Plt Count MPV Neut % (Auto) Lymph % (Auto) Griggs % (Auto) Eos % (Auto) Baso % (Auto) Neut # (Auto) Lymph # (Auto) Griggs # (Auto) Eos # (Auto) Baso # (Auto) Neutrophils % (Manual) Band Neutrophils % Lymphocytes % (Manual) Reactive Lymphs % Monocytes % (Manual) Eosinophils % (Manual) Metamyelocytes % Platelet Estimate Large Platelets Anisocytosis (manual) PT 12.6 H INR 1.2 APTT 81 H D Puncture Site pCO2 pO2 HCO3 ABG pH ABG Total CO2 ABG O2 Saturation ABG Base Excess Erik Test ABG Potassium A-a O2 Difference Respiratory Index Glucose Lactate Vent Mode Mechanical Rate FiO2 Tidal Volume PEEP Crit Value Called To Crit Value Called By Crit Value Read Back Blood Gas Notified Time Sodium 150 H Potassium 5.0 Chloride 118 H Carbon Dioxide 20 L Anion Gap 17 BUN 20 H Creatinine 1.1 Est GFR ( Amer) > 60 Est GFR (Non-Af Amer) 52 Random Glucose 253 H Hemoglobin A1c Serum Osmolality Calcium 9.0 Phosphorus 1.6 L Magnesium 1.8 Total Bilirubin 0.6 AST 537 H D ALT 475 H Alkaline Phosphatase 100 Total Creatine Kinase 220 H Troponin I 5.0600 H* Total Protein 5.7 L Albumin 2.9 L Globulin 2.8 Albumin/Globulin Ratio 1.0 Lipase Procalcitonin 30.81 H Arterial Blood Potassium Vancomycin Trough Acetaminophen HIV 1&2 Antibody Screen Blood Parasites Smear 05/02/18 05/02/18 05/02/18 13:23 13:35 19:08 WBC RBC Hgb Hct MCV MCH MCHC RDW Plt Count MPV Neut % (Auto) Lymph % (Auto) Griggs % (Auto) Eos % (Auto) Baso % (Auto) Neut # (Auto) Lymph # (Auto) Griggs # (Auto) Eos # (Auto) Baso # (Auto) Neutrophils % (Manual) Band Neutrophils % Lymphocytes % (Manual) Reactive Lymphs % Monocytes % (Manual) Eosinophils % (Manual) Metamyelocytes % Platelet Estimate Large Platelets Anisocytosis (manual) PT INR APTT Puncture Site Rba pCO2 53 H pO2 75 L HCO3 20.3 L ABG pH 7.23 L ABG Total CO2 23.8 ABG O2 Saturation 97.2 ABG Base Excess -5.8 L Erik Test Na ABG Potassium 4.4 A-a O2 Difference 287.0 Respiratory Index 3.8 Glucose 260 H Lactate 4.0 H* Vent Mode Mechanical Rate 30 FiO2 60.0 Tidal Volume PEEP 10 Crit Value Called To Crit Value Called By Crit Value Read Back Blood Gas Notified Time Sodium 148.0 Potassium Chloride 117.0 H Carbon Dioxide Anion Gap BUN Creatinine Est GFR ( Amer) Est GFR (Non-Af Amer) Random Glucose Hemoglobin A1c Serum Osmolality 329 H Calcium Phosphorus Magnesium Total Bilirubin AST ALT Alkaline Phosphatase Total Creatine Kinase Troponin I Total Protein Albumin Globulin Albumin/Globulin Ratio Lipase Procalcitonin Arterial Blood Potassium 4.4 Vancomycin Trough Acetaminophen HIV 1&2 Antibody Screen Blood Parasites Smear Negative 05/02/18 05/02/18 05/02/18 19:08 20:35 20:39 WBC RBC Hgb Hct MCV MCH MCHC RDW Plt Count MPV Neut % (Auto) Lymph % (Auto) Griggs % (Auto) Eos % (Auto) Baso % (Auto) Neut # (Auto) Lymph # (Auto) Griggs # (Auto) Eos # (Auto) Baso # (Auto) Neutrophils % (Manual) Band Neutrophils % Lymphocytes % (Manual) Reactive Lymphs % Monocytes % (Manual) Eosinophils % (Manual) Metamyelocytes % Platelet Estimate Large Platelets Anisocytosis (manual) PT INR APTT Puncture Site Rra pCO2 56 H pO2 80 HCO3 22.6 ABG pH 7.26 L ABG Total CO2 26.8 ABG O2 Saturation 98.7 H ABG Base Excess -2.8 L Erik Test Na ABG Potassium 4.8 A-a O2 Difference 278.0 Respiratory Index 3.5 Glucose 203 H Lactate 2.7 H Vent Mode Prvc Mechanical Rate 24 FiO2 60.0 Tidal Volume 450 PEEP 10 Crit Value Called To Crit Value Called By Crit Value Read Back Blood Gas Notified Time Sodium 149.0 H Potassium Chloride 117.0 H Carbon Dioxide Anion Gap BUN Creatinine Est GFR ( Amer) Est GFR (Non-Af Amer) Random Glucose Hemoglobin A1c Serum Osmolality Calcium Phosphorus Magnesium Total Bilirubin AST ALT Alkaline Phosphatase Total Creatine Kinase Troponin I Total Protein Albumin Globulin Albumin/Globulin Ratio Lipase Procalcitonin Arterial Blood Potassium 4.8 Vancomycin Trough < 5.0 L Acetaminophen < 10.0 L HIV 1&2 Antibody Screen Blood Parasites Smear 05/02/18 05/03/18 05/03/18 20:39 00:50 05:46 WBC RBC Hgb Hct MCV MCH MCHC RDW Plt Count MPV Neut % (Auto) Lymph % (Auto) Griggs % (Auto) Eos % (Auto) Baso % (Auto) Neut # (Auto) Lymph # (Auto) Griggs # (Auto) Eos # (Auto) Baso # (Auto) Neutrophils % (Manual) Band Neutrophils % Lymphocytes % (Manual) Reactive Lymphs % Monocytes % (Manual) Eosinophils % (Manual) Metamyelocytes % Platelet Estimate Large Platelets Anisocytosis (manual) PT INR APTT 128 H* D Puncture Site R rad R rad pCO2 23 L 24 L pO2 76 L 59 L HCO3 26.0 24.1 ABG pH 7.58 H 7.53 H ABG Total CO2 22.3 20.8 L ABG O2 Saturation 98.6 H 96.3 ABG Base Excess 1.4 -0.9 Erik Test Pos Pos ABG Potassium 4.1 3.7 A-a O2 Difference 252.0 268.0 Respiratory Index 3.3 4.5 Glucose 192 H 196 H Lactate 3.6 H 4.6 H* Vent Mode Prvc Prvc Mechanical Rate 24 24 FiO2 50.0 50.0 Tidal Volume 550 550 PEEP 7 7 Crit Value 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 Crit Value Called By Marilia del castillo rt Crit Value Read Back Y Blood Gas Notified Time 615 Sodium 150.0 H 150.0 H Potassium Chloride 120.0 H 121.0 H Carbon Dioxide Anion Gap BUN Creatinine Est GFR ( Amer) Est GFR (Non-Af Amer) Random Glucose Hemoglobin A1c Serum Osmolality Calcium Phosphorus Magnesium Total Bilirubin AST ALT Alkaline Phosphatase Total Creatine Kinase Troponin I Total Protein Albumin Globulin Albumin/Globulin Ratio Lipase Procalcitonin Arterial Blood Potassium 4.1 3.7 Vancomycin Trough Acetaminophen HIV 1&2 Antibody Screen Blood Parasites Smear 05/03/18 05/03/18 05:56 05:56 WBC 29.3 H RBC 4.83 Hgb 12.6 D Hct 38.1 MCV 78.8 L MCH 26.2 L MCHC 33.2 RDW 16.1 H Plt Count 190 MPV 11.3 Neut % (Auto) 90.5 H Lymph % (Auto) 5.5 L Griggs % (Auto) 3.6 Eos % (Auto) 0.1 Baso % (Auto) 0.3 Neut # (Auto) 26.6 H Lymph # (Auto) 1.6 Griggs # (Auto) 1.1 H Eos # (Auto) 0.0 Baso # (Auto) 0.1 Neutrophils % (Manual) Band Neutrophils % Lymphocytes % (Manual) Reactive Lymphs % Monocytes % (Manual) Eosinophils % (Manual) Metamyelocytes % Platelet Estimate Large Platelets Anisocytosis (manual) PT INR APTT Puncture Site pCO2 pO2 HCO3 ABG pH ABG Total CO2 ABG O2 Saturation ABG Base Excess Erik Test ABG Potassium A-a O2 Difference Respiratory Index Glucose Lactate Vent Mode Mechanical Rate FiO2 Tidal Volume PEEP Crit Value Called To Crit Value Called By Crit Value Read Back Blood Gas Notified Time Sodium 150 H Potassium 3.9 Chloride 119 H Carbon Dioxide 22 Anion Gap 13 BUN 22 H Creatinine 1.1 Est GFR ( Amer) > 60 Est GFR (Non-Af Amer) 52 Random Glucose 172 H Hemoglobin A1c Serum Osmolality Calcium 8.2 L Phosphorus 2.1 L Magnesium 1.7 Total Bilirubin 0.5 AST 200 H D ALT 300 H D Alkaline Phosphatase 86 Total Creatine Kinase Troponin I Total Protein 5.2 L Albumin 2.6 L Globulin 2.6 Albumin/Globulin Ratio 1.0 Lipase Procalcitonin Arterial Blood Potassium Vancomycin Trough Acetaminophen HIV 1&2 Antibody Screen Blood Parasites Smear Assessment & Plan - Assessment and Plan (Free Text) Assessment: 52 F with suspected suicide attempt who presents with anoxic brain injury. Abnormal EKG -Original EKG did not meet code heart criteria. - Trops elavated to 5.06 yesterday - f/u Echo report Hypertensive Urgency/Emergency - BP Controlled today, associated tachycardia - Initial CT head/CTA head/neck negative - ASA, Statin, B-bartolo medical therapy - Continue to monitor Patient seen, case reviewed, and plan discussed with Dr. Gay. Future recs per Dr. Gay. Lamont Barclay, PGY-1
[2018-05-03 08:32] LABS: ANISOCYTOSIS SLIGHT; BANDS 38 % (0-2); LYMPHOCYTE 4 % (20-40); MONOCYTE 2 % (0-10); NEUTROPHIL 56 % (50-75); PLATELET ESTIMATE NORMAL (NORMAL); TOTAL CELLS COUNTED 100
[2018-05-03 08:33] LABS: MICROCYTOSIS SLIGHT; TARGET CELLS SLIGHT
[2018-05-03 08:40] LABS: HEPATITIS B SURFACE AG Negative (NEGATIVE)
[2018-05-03 08:46] LABS: HEPATITIS A IGM NEGATIVE (NEGATIVE); HEPATITIS B CORE AB NEGATIVE (NEGATIVE)
[2018-05-03 08:57] LABS: HEPATITIS C ANTIBODY NEGATIVE (NEGATIVE)
--- NOTE | 2018-05-03 09:48 | RAD ---
Date of service: 05/03/2018 HISTORY: Intubated COMPARISON: 05/02/2018. FINDINGS: Endotracheal tube terminates 5 cm proximal to the aiden. The nasogastric tube terminates in the stomach. LUNGS: The lungs are well inflated. There is dense consolidation in the right lower lobe however improved since the prior examination. There is patchy airspace disease in the left lower lobe. PLEURA: Suspect small right pleural effusion. No large left pleural effusion. No pneumothorax. CARDIOVASCULAR: The heart is normal in size. No aortic atherosclerotic calcification present. OSSEOUS STRUCTURES: Within normal limits for the patient's age. VISUALIZED UPPER ABDOMEN: Normal. OTHER FINDINGS: None. IMPRESSION: Improved aeration in the right lower lobe with persistent dense consolidation and presumable patchy pneumonia in the left lower lobe. Stable position of support tubes.
[2018-05-03] MEDS: Insulin Human Regular 100 UNIT in Sodium Chloride 0.9% 99 ML IV SCH (11:01)
[2018-05-03] MEDS: Thiamine 100 mg/ml Inj IV SCH (11:33)
[2018-05-03] MEDS ORDERED: Dextrose 50% SYRINGE Inj (50 ml) IV PRN (12:05)
[2018-05-03] MEDS ORDERED: Glucagon Recombinant 1 mg Inj IM PRN (12:05)
[2018-05-03] MEDS ORDERED: Potassium & Sodium Phosphate PO ONE (12:20)
--- NOTE | 2018-05-03 12:50 | CP.PCM.CON ---
History of Present Illness - History of Present Illness History of Present Illness: Palliative consult requested by Doctor Mares for goals of care discusion and family support Patient is a 52 yo lady admitted after found by EMS unresponsive at the home. 911 was called by patient's who apparently found her unresponsive 5 min after he left her and went to the bathroom, as per report. Patient was r esuscitated and intubated on the scene. Further physical exam revealed strangulation monge around patient's neck indicating suicidal attempt using a rope. Police investigation is pending. Patient came from to visit her who lives here in [facility]. Per her sister, patient planned on staying up to 2 weeks. Her 3 children are in . The CT head and CT head and neck were negative acute findings. Neurology consult with Doctor Guilherme called. Kepra 1000 mg IV started. Prognosis is seen as very p oor. Brain flow test suggested by Doctor Vanegas. Patient is intubated, on MV support under ICU care. PMH: denied Soc. Hx: , lives in , was in [facility] visiting her , 3 children in [place]. Hx: unknown Review of Systems - Review of Systems Systems not reviewed;Unavailable: Intubated All systems: reviewed and no additional remarkable complaints except Review of Systems: ROS unobtainable from patient due to intubation and overall condition. ROS obtaind from nursing. Per nursing patient had some reactions to touch since this morning. Past Patient History - Tetanus Immunizations Tetanus Immunization: Unknown - Past Medical History & Family History Past Medical History?: No - Past Social History Smoking Status: Never Smoked - MUSCULOSKELETAL/RHEUMATOLOGICAL Hx Falls: Yes - PSYCHIATRIC Hx Substance Use: (UNKNOWN) - SURGICAL HISTORY Hx Surgeries: (UNOBTAINABLE) - ANESTHESIA Hx Anesthesia: (UNOBTAINABLE) Meds Allergies/Adverse Reactions: Allergies Allergy/AdvReac Type Severity Reaction Status Date / Time No Known Allergies Allergy Unverified 05/01/18 22:37 - Medications Medications: Current Medications Albuterol/Ipratropium (Duoneb 3 Mg/0.5 Mg (3 Ml) Ud) 3 ml INH RQ4 BETH Last Admin: 05/03/18 07:45 Dose: 3 ml Aspirin (Ecotrin) 81 mg PO DAILY BETH Last Admin: 05/03/18 10:19 Dose: 81 mg Dextrose (Dextrose 50% Inj) 0 ml IV STAT PRN; Protocol PRN Reason: Hypoglycemia Protocol Dextrose (Glutose 15) 15 gm PO ONCE PRN; Protocol PRN Reason: Hypoglycemia Protocol Glucagon (Glucagen Diagnostic Kit) 1 mg IM STAT PRN; Protocol PRN Reason: Hypoglycemia Protocol Heparin Sodium (Porcine) (Heparin) 5,000 units SC Q8 BETH Midazolam HCl 100 mg/ Dextrose 100 mls @ 1.48 mls/hr IV .Q24H PRN; Protocol PRN Reason: Sedation Last Titration: 05/03/18 08:20 Dose: 0 mg/kg/hr, 0 mls/hr Doxycycline Hyclate 100 mg/ (Sodium Chloride) 100 mls @ 100 mls/hr IVPB Q12H SC H; Protocol Last Admin: 05/03/18 03:11 Dose: 100 mls/hr Levetiracetam 1,000 mg/ Sodium (Chloride) 110 mls @ 420 mls/hr IVPB Q12H BETH Last Admin: 05/03/18 11:32 Dose: 420 mls/hr Lactated Ringer's (Lactated Ringer's) 1,000 mls @ 50 mls/hr IV .Q20H BETH Last Admin: 05/03/18 01:44 Dose: 50 mls/hr Insulin Human Regular 100 unit (/ Sodium Chloride) 100 mls @ 2 mls/hr IV .Q24H BETH; Protocol Last Admin: 05/03/18 11:01 Dose: Not Given Vancomycin HCl 1,000 mg/ (Sodium Chloride) 200 mls @ 133.333 mls/hr IVPB Q12H BETH; Protocol Last Admin: 05/03/18 06:11 Dose: 133.333 mls/hr Meropenem 1 gm/ Sodium (Chloride) 100 mls @ 100 mls/hr IVPB Q8H BETH; Protocol Last Admin: 05/03/18 10:21 Dose: 100 mls/hr Dextrose (Dextrose 5% In Water 1000 Ml) 1,000 mls @ 0 mls/hr IV .Q0M PRN; Protocol PRN Reason: Hypoglycemia Protocol Influenza Virus Vaccine (Fluzone Quad [id number]) 60 mcg IM .ONCE ONE Stop: 05/04/18 10:01 Insulin Aspart (Novolog) 0 unit SC Q6 BETH; Protocol Pantoprazole Sodium (Protonix Inj) 40 mg IVP DAILY BETH Last Admin: 05/03/18 10:22 Dose: 40 mg Pneumococcal Polyvalent Vaccine (Pneumovax 23 Vaccine) 0.5 ml IM .ONCE ONE Stop: 05/04/18 18:01 Sodium Bicarbonate (Sodium Bicarbonate Tab) 650 mg PO Q6 [facility] Last Admin: 05/03/18 11:33 Dose: 650 mg Thiamine HCl (Vitamin B1 Inj) 100 mg IV DAILY [facility] Last Admin: 05/03/18 11:33 Dose: 100 mg Physical Exam - Constitutional Appears: In Acute Distress - Head Exam Head Exam: ATRAUMATIC, NORMAL INSPECTION, NORMOCEPHALIC - Eye Exam Additional comments: pupils are fixed, corneal reflex to right eye only - ENT Exam Additional comments: ETT tube - Neck Exam Additional comments: bruise around the neck - Respiratory Exam Additional comments: On MV - Cardiovascular Exam Cardiovascular Exam: Tachycardia - GI/Abdominal Exam GI & Abdominal Exam: Hypoactive Bowel Sounds, Soft - Rectal Exam Rectal Exam: Deferred - Extremities Exam Extremities exam: Positive for: pedal edema, pedal pulses present - Back Exam Back exam: NORMAL INSPECTION - Neurological Exam Neurological exam: Motor Sensory Deficit - Psychiatric Exam Psychiatric exam: Flat Affect - Skin Skin Exam: Dry, Normal Color, Warm Results - Vital Signs Recent Vital Signs: Last Vital Signs Temp 98.7 F 05/03/18 12:00 Pulse 107 H 05/03/18 12:15 Resp 25 H 05/03/18 12:15 BP 142/79 05/03/18 12:15 Pulse Ox 96 05/03/18 12:15 - Labs Result Diagrams: 05/03/18 05:56 05/03/18 05:56 Labs: Laboratory Results - last 24 hr 05/01/18 05/02/18 05/02/18 22:11 01:33 02:00 WBC RBC Hgb Hct MCV MCH MCHC RDW Plt Count MPV Neut % (Auto) Lymph % (Auto) Moffat % (Auto) Eos % (Auto) Baso % (Auto) Neut # (Auto) Lymph # (Auto) Moffat # (Auto) Eos # (Auto) Baso # (Auto) Neutrophils % (Manual) Band Neutrophils % Lymphocytes % (Manual) Monocytes % (Manual) Metamyelocytes % Platelet Estimate Large Platelets Anisocytosis (manual) Microcytosis (manual) Target Cells PT INR APTT Puncture Site pCO2 pO2 HCO3 ABG pH ABG Total CO2 ABG O2 Saturation ABG Base Excess Erik Test ABG Potassium A-a O2 Difference Respiratory Index Glucose Lactate Vent Mode Mechanical Rate FiO2 Tidal Volume PEEP Crit Value Called To Crit Value Called By Crit Value Read Back Blood Gas Notified Time Sodium Potassium Chloride Carbon Dioxide Anion Gap BUN Creatinine Est GFR ( Amer) Est GFR (Non-Af Amer) POC Glucose (mg/dL) > 500 H* > 500 H* > 500 H* Random Glucose Serum Osmolality Calcium Phosphorus Magnesium Total Bilirubin AST ALT Alkaline Phosphatase Total Creatine Kinase Troponin I Total Protein Albumin Globulin Albumin/Globulin Ratio Procalcitonin Arterial Blood Potassium Vancomycin Trough Acetaminophen Hepatitis A IgM Ab Hep Bs Antigen Hep B Core IgM Ab Hepatitis C Antibody HIV 1&2 Antibody Screen Blood Parasites Smear 05/02/18 05/02/18 05/02/18 02:46 13:23 13:23 WBC RBC Hgb Hct MCV MCH MCHC RDW Plt Count MPV Neut % (Auto) Lymph % (Auto) Moffat % (Auto) Eos % (Auto) Baso % (Auto) Neut # (Auto) Lymph # (Auto) Moffat # (Auto) Eos # (Auto) Baso # (Auto) Neutrophils % (Manual) Band Neutrophils % Lymphocytes % (Manual) Monocytes % (Manual) Metamyelocytes % Platelet Estimate Large Platelets Anisocytosis (manual) Microcytosis (manual) Target Cells PT INR APTT Puncture Site pCO2 pO2 HCO3 ABG pH ABG Total CO2 ABG O2 Saturation ABG Base Excess Erik Test ABG Potassium A-a O2 Difference Respiratory Index Glucose Lactate Vent Mode Mechanical Rate FiO2 Tidal Volume PEEP Crit Value Called To Crit Value Called By Crit Value Read Back Blood Gas Notified Time Sodium Potassium Chloride Carbon Dioxide Anion Gap BUN Creatinine Est GFR ( Amer) Est GFR (Non-Af Amer) POC Glucose (mg/dL) > 500 H* Random Glucose Serum Osmolality Calcium Phosphorus Magnesium Total Bilirubin AST ALT Alkaline Phosphatase Total Creatine Kinase Troponin I Total Protein Albumin Globulin Albumin/Globulin Ratio Procalcitonin Arterial Blood Potassium Vancomycin Trough Acetaminophen Hepatitis A IgM Ab Negative Hep Bs Antigen Negative Hep B Core IgM Ab Negative Hepatitis C Antibody Negative HIV 1&2 Antibody Screen Negative Blood Parasites Smear 05/02/18 05/02/18 05/02/18 13:23 13:23 13:23 WBC 36.3 H D RBC 5.95 H Hgb 15.8 Hct 47.2 H MCV 79.3 L D MCH 26.6 L MCHC 33.5 RDW 15.7 H Plt Count 245 MPV 10.5 Neut % (Auto) 93.8 H Lymph % (Auto) 3.5 L Moffat % (Auto) 2.6 Eos % (Auto) 0.0 Baso % (Auto) 0.1 Neut # (Auto) 34.0 H Lymph # (Auto) 1.3 Moffat # (Auto) 0.9 H Eos # (Auto) 0.0 Baso # (Auto) 0.0 Neutrophils % (Manual) 55 Band Neutrophils % 35 H* Lymphocytes % (Manual) 7 L Monocytes % (Manual) 1 Metamyelocytes % 2 H Platelet Estimate Normal Large Platelets Present Anisocytosis (manual) Slight Microcytosis (manual) Target Cells PT 12.6 H INR 1.2 APTT 81 H D Puncture Site pCO2 pO2 HCO3 ABG pH ABG Total CO2 ABG O2 Saturation ABG Base Excess Erik Test ABG Potassium A-a O2 Difference Respiratory Index Glucose Lactate Vent Mode Mechanical Rate FiO2 Tidal Volume PEEP Crit Value Called To Crit Value Called By Crit Value Read Back Blood Gas Notified Time Sodium Potassium Chloride Carbon Dioxide Anion Gap BUN Creatinine Est GFR ( Amer) Est GFR (Non-Af Amer) POC Glucose (mg/dL) Random Glucose Serum Osmolality Calcium Phosphorus Magnesium Total Bilirubin AST ALT Alkaline Phosphatase Total Creatine Kinase Troponin I Total Protein Albumin Globulin Albumin/Globulin Ratio Procalcitonin 30.81 H Arterial Blood Potassium Vancomycin Trough Acetaminophen Hepatitis A IgM Ab Hep Bs Antigen Hep B Core IgM Ab Hepatitis C Antibody HIV 1&2 Antibody Screen Blood Parasites Smear 05/02/18 05/02/18 05/02/18 13:23 13:23 13:35 WBC RBC Hgb Hct MCV MCH MCHC RDW Plt Count MPV Neut % (Auto) Lymph % (Auto) Moffat % (Auto) Eos % (Auto) Baso % (Auto) Neut # (Auto) Lymph # (Auto) Moffat # (Auto) Eos # (Auto) Baso # (Auto) Neutrophils % (Manual) Band Neutrophils % Lymphocytes % (Manual) Monocytes % (Manual) Metamyelocytes % Platelet Estimate Large Platelets Anisocytosis (manual) Microcytosis (manual) Target Cells PT INR APTT Puncture Site Rba pCO2 53 H pO2 75 L HCO3 20.3 L ABG pH 7.23 L ABG Total CO2 23.8 ABG O2 Saturation 97.2 ABG Base Excess -5.8 L Erik Test Na ABG Potassium 4.4 A-a O2 Difference 287.0 Respiratory Index 3.8 Glucose 260 H Lactate 4.0 H* Vent Mode Mechanical Rate 30 FiO2 60.0 Tidal Volume PEEP 10 Crit Value Called To Crit Value Called By Crit Value Read Back Blood Gas Notified Time Sodium 150 H 148.0 Potassium 5.0 Chloride 118 H 117.0 H Carbon Dioxide 20 L Anion Gap 17 BUN 20 H Creatinine 1.1 Est GFR ( Amer) > 60 Est GFR (Non-Af Amer) 52 POC Glucose (mg/dL) Random Glucose 253 H Serum Osmolality 329 H Calcium 9.0 Phosphorus 1.6 L Magnesium 1.8 Total Bilirubin 0.6 AST 537 H D ALT 475 H Alkaline Phosphatase 100 Total Creatine Kinase 220 H Troponin I 5.0600 H* Total Protein 5.7 L Albumin 2.9 L Globulin 2.8 Albumin/Globulin Ratio 1.0 Procalcitonin Arterial Blood Potassium 4.4 Vancomycin Trough Acetaminophen Hepatitis A IgM Ab Hep Bs Antigen Hep B Core IgM Ab Hepatitis C Antibody HIV 1&2 Antibody Screen Blood Parasites Smear 05/02/18 05/02/18 05/02/18 19:08 19:08 20:35 WBC RBC Hgb Hct MCV MCH MCHC RDW Plt Count MPV Neut % (Auto) Lymph % (Auto) Moffat % (Auto) Eos % (Auto) Baso % (Auto) Neut # (Auto) Lymph # (Auto) Moffat # (Auto) Eos # (Auto) Baso # (Auto) Neutrophils % (Manual) Band Neutrophils % Lymphocytes % (Manual) Monocytes % (Manual) Metamyelocytes % Platelet Estimate Large Platelets Anisocytosis (manual) Microcytosis (manual) Target Cells PT INR APTT Puncture Site Rra pCO2 56 H pO2 80 HCO3 22.6 ABG pH 7.26 L ABG Total CO2 26.8 ABG O2 Saturation 98.7 H ABG Base Excess -2.8 L Erik Test Na ABG Potassium 4.8 A-a O2 Difference 278.0 Respiratory Index 3.5 Glucose 203 H Lactate 2.7 H Vent Mode Prvc Mechanical Rate 24 FiO2 60.0 Tidal Volume 450 PEEP 10 Crit Value Called To Crit Value Called By Crit Value Read Back Blood Gas Notified Time Sodium 149.0 H Potassium Chloride 117.0 H Carbon Dioxide Anion Gap BUN Creatinine Est GFR ( Amer) Est GFR (Non-Af Amer) POC Glucose (mg/dL) Random Glucose Serum Osmolality Calcium Phosphorus Magnesium Total Bilirubin AST ALT Alkaline Phosphatase Total Creatine Kinase Troponin I Total Protein Albumin Globulin Albumin/Globulin Ratio Procalcitonin Arterial Blood Potassium 4.8 Vancomycin Trough Acetaminophen < 10.0 L Hepatitis A IgM Ab Hep Bs Antigen Hep B Core IgM Ab Hepatitis C Antibody HIV 1&2 Antibody Screen Blood Parasites Smear Negative 05/02/18 05/02/18 05/03/18 20:39 20:39 00:50 WBC RBC Hgb Hct MCV MCH MCHC RDW Plt Count MPV Neut % (Auto) Lymph % (Auto) Moffat % (Auto) Eos % (Auto) Baso % (Auto) Neut # (Auto) Lymph # (Auto) Moffat # (Auto) Eos # (Auto) Baso # (Auto) Neutrophils % (Manual) Band Neutrophils % Lymphocytes % (Manual) Monocytes % (Manual) Metamyelocytes % Platelet Estimate Large Platelets Anisocytosis (manual) Microcytosis (manual) Target Cells PT INR APTT 128 H* D Puncture Site R rad pCO2 23 L pO2 76 L HCO3 26.0 ABG pH 7.58 H ABG Total CO2 22.3 ABG O2 Saturation 98.6 H ABG Base Excess 1.4 Erik Test Pos ABG Potassium 4.1 A-a O2 Difference 252.0 Respiratory Index 3.3 Glucose 192 H Lactate 3.6 H Vent Mode Prvc Mechanical Rate 24 FiO2 50.0 Tidal Volume 550 PEEP 7 Crit Value Called To Crit Value Called By Crit Value Read Back Blood Gas Notified Time Sodium 150.0 H Potassium Chloride 120.0 H Carbon Dioxide Anion Gap BUN Creatinine Est GFR ( Amer) Est GFR (Non-Af Amer) POC Glucose (mg/dL) Random Glucose Serum Osmolality Calcium Phosphorus Magnesium Total Bilirubin AST ALT Alkaline Phosphatase Total Creatine Kinase Troponin I Total Protein Albumin Globulin Albumin/Globulin Ratio Procalcitonin Arterial Blood Potassium 4.1 Vancomycin Trough < 5.0 L Acetaminophen Hepatitis A IgM Ab Hep Bs Antigen Hep B Core IgM Ab Hepatitis C Antibody HIV 1&2 Antibody Screen Blood Parasites Smear 05/03/18 05/03/18 05/03/18 05:46 05:56 05:56 WBC 29.3 H RBC 4.83 Hgb 12.6 D Hct 38.1 MCV 78.8 L MCH 26.2 L MCHC 33.2 RDW 16.1 H Plt Count 190 MPV 11.3 Neut % (Auto) 90.5 H Lymph % (Auto) 5.5 L Moffat % (Auto) 3.6 Eos % (Auto) 0.1 Baso % (Auto) 0.3 Neut # (Auto) 26.6 H Lymph # (Auto) 1.6 Moffat # (Auto) 1.1 H Eos # (Auto) 0.0 Baso # (Auto) 0.1 Neutrophils % (Manual) 56 Band Neutrophils % 38 H* Lymphocytes % (Manual) 4 L Monocytes % (Manual) 2 Metamyelocytes % Platelet Estimate Normal Large Platelets Anisocytosis (manual) Slight Microcytosis (manual) Slight Target Cells Slight PT INR APTT Puncture Site R rad pCO2 24 L pO2 59 L HCO3 24.1 ABG pH 7.53 H ABG Total CO2 20.8 L ABG O2 Saturation 96.3 ABG Base Excess -0.9 Erik Test Pos ABG Potassium 3.7 A-a O2 Difference 268.0 Respiratory Index 4.5 Glucose 196 H Lactate 4.6 H* Vent Mode Prvc Mechanical Rate 24 FiO2 50.0 Tidal Volume 550 PEEP 7 Crit Value Called To [facility] school curriculum developer Crit Value Called By Marilia del castillo rt Crit Value Read Back Y Blood Gas Notified Time 615 Sodium 150.0 H 150 H Potassium 3.9 Chloride 121.0 H 119 H Carbon Dioxide 22 Anion Gap 13 BUN 22 H Creatinine 1.1 Est GFR ( Amer) > 60 Est GFR (Non-Af Amer) 52 POC Glucose (mg/dL) Random Glucose 172 H Serum Osmolality Calcium 8.2 L Phosphorus 2.1 L Magnesium 1.7 Total Bilirubin 0.5 AST 200 H D ALT 300 H D Alkaline Phosphatase 86 Total Creatine Kinase Troponin I Total Protein 5.2 L Albumin 2.6 L Globulin 2.6 Albumin/Globulin Ratio 1.0 Procalcitonin Arterial Blood Potassium 3.7 Vancomycin Trough Acetaminophen Hepatitis A IgM Ab Hep Bs Antigen Hep B Core IgM Ab Hepatitis C Antibody HIV 1&2 Antibody Screen Blood Parasites Smear 05/03/18 05/03/18 05/03/18 07:52 09:04 10:04 WBC RBC Hgb Hct MCV MCH MCHC RDW Plt Count MPV Neut % (Auto) Lymph % (Auto) Moffat % (Auto) Eos % (Auto) Baso % (Auto) Neut # (Auto) Lymph # (Auto) Moffat # (Auto) Eos # (Auto) Baso # (Auto) Neutrophils % (Manual) Band Neutrophils % Lymphocytes % (Manual) Monocytes % (Manual) Metamyelocytes % Platelet Estimate Large Platelets Anisocytosis (manual) Microcytosis (manual) Target Cells PT INR APTT Puncture Site pCO2 pO2 HCO3 ABG pH ABG Total CO2 ABG O2 Saturation ABG Base Excess Erik Test ABG Potassium A-a O2 Difference Respiratory Index Glucose Lactate Vent Mode Mechanical Rate FiO2 Tidal Volume PEEP Crit Value Called To Crit Value Called By Crit Value Read Back Blood Gas Notified Time Sodium Potassium Chloride Carbon Dioxide Anion Gap BUN Creatinine Est GFR ( Amer) Est GFR (Non-Af Amer) POC Glucose (mg/dL) 182 H 182 H 190 H Random Glucose Serum Osmolality Calcium Phosphorus Magnesium Total Bilirubin AST ALT Alkaline Phosphatase Total Creatine Kinase Troponin I Total Protein Albumin Globulin Albumin/Globulin Ratio Procalcitonin Arterial Blood Potassium Vancomycin Trough Acetaminophen Hepatitis A IgM Ab Hep Bs Antigen Hep B Core IgM Ab Hepatitis C Antibody HIV 1&2 Antibody Screen Blood Parasites Smear 05/03/18 05/03/18 11:06 11:56 WBC RBC Hgb Hct MCV MCH MCHC RDW Plt Count MPV Neut % (Auto) Lymph % (Auto) Moffat % (Auto) Eos % (Auto) Baso % (Auto) Neut # (Auto) Lymph # (Auto) Moffat # (Auto) Eos # (Auto) Baso # (Auto) Neutrophils % (Manual) Band Neutrophils % Lymphocytes % (Manual) Monocytes % (Manual) Metamyelocytes % Platelet Estimate Large Platelets Anisocytosis (manual) Microcytosis (manual) Target Cells PT INR APTT Puncture Site pCO2 pO2 HCO3 ABG pH ABG Total CO2 ABG O2 Saturation ABG Base Excess Erik Test ABG Potassium A-a O2 Difference Respiratory Index Glucose Lactate Vent Mode Mechanical Rate FiO2 Tidal Volume PEEP Crit Value Called To Crit Value Called By Crit Value Read Back Blood Gas Notified Time Sodium Potassium Chloride Carbon Dioxide Anion Gap BUN Creatinine Est GFR ( Amer) Est GFR (Non-Af Amer) POC Glucose (mg/dL) 191 H 193 H Random Glucose Serum Osmolality Calcium Phosphorus Magnesium Total Bilirubin AST ALT Alkaline Phosphatase Total Creatine Kinase Troponin I Total Protein Albumin Globulin Albumin/Globulin Ratio Procalcitonin Arterial Blood Potassium Vancomycin Trough Acetaminophen Hepatitis A IgM Ab Hep Bs Antigen Hep B Core IgM Ab Hepatitis C Antibody HIV 1&2 Antibody Screen Blood Parasites Smear Assessment & Plan - Assessment and Plan (Free Text) Assessment: Palliative consult Code status Full Code, there is no Advance directive on chart, PPS 10% I reviewed Medical records, all diagnostic studies, examined patient in the bed. Patient is intubated, on MV support, unresponsive to verbal stimuli, unable to fallow commends. Patient reacts to eye balls pressure by closing her eyes more tight. There is no purposeful movements of any extremity. Physical exam reveal young, well developed lady with GCS of 3 due to anoxic brain injury. There is strangulation digna around patient's neck. Breath sounds are diminihed, there is no breathing over the vent. Abdomen is soft. Urine clear. Good output. Lasix 40 mg IV on board. BP 104/65, HR 99 WBC 29.3, down from 36.3 on admission. Vibramycin, Merrem, and Vanco on board. Patient is rceiving Kepra 1000 mg IV. Doctor Guilherme is suggesting Brain flow study. Patient's sister at bed side. She fly in from due to this unfortunate event. She is only Barb[place] speaking and translation was provided by the patient's Luis who was also at bed side. I reviewed patient's clinical presentation and all relevant studies. The sister admits being in shock and looking for the answers to this event. Per her, the patient would never attempt suicide and leave her children alone. She states that patient had no other health issues except occasional headaches. I elicited sister's understanding and expectations of care. She admits to be praying for miracle to happen and to have her sister well again. I reassured her of all appropriate care provided for the patient. She is thankful for the care. Impression * Acute respiratory distress 2nd to anoxic brain injury * Very poor neuro presentation, GCS 3 * Anticipatory grieving among the family * Spiritual distress Suggestions * Continue all supportive care * Keep family up to date with patient's progress to decrease anxiety * Pastoral care for spiritual support Palliative care will continue to provide support for the family during this very unfortunate event. Advance care planing time 30 min
--- NOTE | 2018-05-03 12:50 | CARD ---
APPROVED REPORT Date of service: 05/01/2018 EKG Measurement Heart [id number] CT [id number] <Conclusion> Normal sinus rhythm ST elevation, consider lateral injury or acute infarct Prolonged QT ACUTE OH / STEMI Abnormal ECG
--- NOTE | 2018-05-03 12:51 | CARD ---
APPROVED REPORT Date of service: 05/02/2018 EKG Measurement Heart [id number] FL [id number] <Conclusion> Sinus tachycardia T wave abnormality, consider lateral ischemia Abnormal ECG
--- NOTE | 2018-05-03 13:02 | CP.CCUPN ---
<Marycruz Plasencia - Last Filed: 05/03/18 17:27> CCU Subjective - Physician Review Events Since Last Encounter (Free Text): 05/03/18 17:19 No acute events overnight. Subjective (Free Text): 05/03/18 17:19 PGY1 Critical Care Progress Note for Dr. Renae Patient seen and examined at bedside this morning. No acute events overnight, per nurse. Unable to obtained ROS due to clinical condition. Critical Care Time Spent (in minutes): 35 CCU Objective - Vital Signs / Intake & Output Vital Signs (Last 4 hours): Vital Signs Temp Pulse Resp BP Pulse Ox 05/03/18 12:15 107 H 25 H 142/79 96 05/03/18 12:00 98.7 F 05/03/18 11:45 100 H 24 108/61 05/03/18 11:14 99 H 24 105/65 98 05/03/18 10:47 101 H 24 124/82 97 05/03/18 10:14 95 H 24 111/68 98 05/03/18 09:44 98 H 24 127/73 99 05/03/18 09:14 99 H 24 104/65 98 Intake and Output (Last 8hrs): Intake & Output 05/02/18 05/03/18 05/03/18 22:59 06:59 14:59 Intake Total 532.5 664 459.5 Output Total 330 345 320 Balance 202.5 319 139.5 Weight 158 lb Intake: IV 170 38 8 Intake, IV Amount 362.5 626 451.5 L hand 4 300 Left AC 300 16 4 Left Hand 387.5 Right Distal Port Hand 44.5 300 50 Right Hand 14 10 10 Output: Urine 330 345 320 Urethral (Alvarado) 330 345 320 Other: # Bowel Movements 0 - Physical Exam Physical Exam Limitations: Positive for: Clinical Condition Pupils: Positive for: PERRL Conjunctiva: Positive for: Normal Mouth: Positive for: Moist Mucous Membranes Nose (External): Positive for: Atraumatic. Negative for: Lesions Nose (Internal): Positive for: Normal Inspection, No Active Bleeding Neck: Positive for: Trachea Midline, Other (skin changes (reddish/hyperpigmented) consisent with ligation around neck ). Negative for: Meningeal Signs Cardiovascular: Positive for: Normal S1, S2, Tachycardic Abdomen: Negative for: Distention, Rebound, Guarding Breast/Axillary: Positive for: Other (Bruising in axillae bilaterally ) Lower Extremity: Positive for: Normal Inspection. Negative for: Edema Neurological: Positive for: Other (GCS=6T). Negative for: CN II-XII Intact Skin: Positive for: Warm, Dry, Normal Color Psychiatric: Negative for: Alert, Oriented x 3 Other physical findings (Free Text): Positive for: * Withdrawing to pain in left upper extremity, bilateral lower extremities. * Suckling reflex in tact * Pupils responsive to light bilaterally * Grimace to pain * Corneal response present * Breathing over vent - Medications Active Medications: Active Medications Generic Name Dose Route Start Last Admin Trade Name Freq PRN Reason Stop Dose Admin Albuterol/Ipratropium 3 ml 05/02/18 04:00 05/03/18 07:45 Duoneb 3 Mg/0.5 Mg (3 Ml) Ud INH 3 ml RQ4 BETH Administration Aspirin 81 mg 05/02/18 10:00 05/03/18 10:19 Ecotrin PO 81 mg DAILY BETH Administration Dextrose 0 ml 05/03/18 12:05 Dextrose 50% Inj IV STAT PRN Hypoglycemia Protocol Protocol Dextrose 15 gm 05/03/18 12:05 Glutose 15 PO ONCE PRN Hypoglycemia Protocol Protocol Glucagon 1 mg 05/03/18 12:05 Glucagen Diagnostic Kit IM STAT PRN Hypoglycemia Protocol Protocol Heparin Sodium (Porcine) 5,000 units 05/03/18 14:00 Heparin SC Q8 BETH Midazolam HCl 100 mg/ Dextrose 100 mls @ 1.48 mls/hr 05/02/18 03:26 05/03/18 08:20 IV 0 mg/kg/hr .Q24H PRN 0 mls/hr Sedation Titration Protocol 0.02 MG/KG/HR Doxycycline Hyclate 100 mg/ 100 mls @ 100 mls/hr 05/02/18 04:00 05/03/18 03:11 Sodium Chloride IVPB 100 mls/hr Q12H BETH Administration Protocol Levetiracetam 1,000 mg/ Sodium 110 mls @ 420 mls/hr 05/02/18 11:30 05/03/18 11:32 Chloride IVPB 420 mls/hr Q12H BETH Administration Lactated Ringer's 1,000 mls @ 50 mls/hr 05/02/18 06:00 05/03/18 01:44 Lactated Ringer's IV 50 mls/hr .Q20H BETH Administration Insulin Human Regular 100 unit 100 mls @ 2 mls/hr 05/02/18 10:08 05/03/18 11:01 / Sodium Chloride IV Not Given .Q24H BETH Protocol Vancomycin HCl 1,000 mg/ 200 mls @ 133.333 mls/hr 05/02/18 19:00 05/03/18 06:11 Sodium Chloride IVPB 133.333 mls/hr Q12H BETH Administration Protocol Meropenem 1 gm/ Sodium 100 mls @ 100 mls/hr 05/02/18 18:30 05/03/18 10:21 Chloride IVPB 100 mls/hr Q8H BETH Administration Protocol Dextrose 1,000 mls @ 0 mls/hr 05/03/18 12:05 Dextrose 5% In Water 1000 Ml IV .Q0M PRN Hypoglycemia Protocol Protocol Per Protocol Influenza Virus Vaccine 60 mcg 05/04/18 10:00 Fluzone Quad [id number] IM 05/04/18 10:01 .ONCE ONE Insulin Aspart 0 unit 05/03/18 18:00 Novolog SC Q6 [facility] Protocol Pantoprazole Sodium 40 mg 05/02/18 10:00 05/03/18 10:22 Protonix Inj IVP 40 mg DAILY BETH Administration Pneumococcal Polyvalent Vaccine 0.5 ml 05/04/18 18:00 Pneumovax 23 Vaccine IM 05/04/18 18:01 .ONCE ONE Sodium Bicarbonate 650 mg 05/02/18 06:00 05/03/18 11:33 Sodium Bicarbonate Tab PO 650 mg Q6 BETH Administration Thiamine HCl 100 mg 05/03/18 10:45 05/03/18 11:33 Vitamin B1 Inj IV 100 mg DAILY BETH Administration - Patient Studies Lab Studies: Microbiology Studies 05/02/18 08:15 MRSA Culture (Admit) - Final Naris MRSA NOT DETECTED 05/02/18 00:59 Urine Culture - Final Urine,Catheterized No Growth (<1,000 CFU/ML) 05/02/18 01:08 Blood Culture - Preliminary Blood-Venous NO GROWTH AFTER 24 HOURS 05/02/18 01:07 Blood Culture - Preliminary Blood-Venous NO GROWTH AFTER 24 HOURS 05/02/18 04:55 Gram Stain - Final Sputum Lab Studies 05/03/18 05/03/1805/03/18 Range/Units 11:56 11:06 10:04 WBC (4.8-10.8) K/uL RBC (3.80-5.20) Mil/uL Hgb (11.0-16.0) g/dL Hct (34.0-47.0) % MCV (81.0-99.0) fL MCH (27.0-31.0) pg MCHC (33.0-37.0) g/dL RDW (11.5-14.5) % Plt Count (130-400) K/uL MPV (7.2-11.7) fL Neut % (Auto) (50.0-75.0) % Lymph % (Auto) (20.0-40.0) % [place] % (Auto) (0.0-10.0) % Eos % (Auto) (0.0-4.0) % Baso % (Auto) (0.0-2.0) % Neut # (Auto) (1.8-7.0) K/uL Lymph # (Auto) (1.0-4.3) K/uL [place] # (Auto) (0.0-0.8) K/uL Eos # (Auto) (0.0-0.7) K/uL Baso # (Auto) (0.0-0.2) K/uL Neutrophils % (Manual) (50-75) % Band Neutrophils % (0-2) % Lymphocytes % (Manual) (20-40) % Monocytes % (Manual) (0-10) % Metamyelocytes % (0-0) % Platelet Estimate (NORMAL) Large Platelets Anisocytosis (manual) Microcytosis (manual) Target Cells PT (9.7-12.2) SECONDS INR APTT (21-34) SECONDS Puncture Site pCO2 (35-45) mm/Hg pO2 (80-100) mm/Hg HCO3 (21-28) mmol/L ABG pH (7.35-7.45) ABG Total CO2 (22-28) mmol/L ABG O2 Saturation (95-98) % ABG Base Excess (-2.0-3.0) mmol/L Erik Test ABG Potassium (3.6-5.2) mmol/L A-a O2 Difference mm/Hg Respiratory Index Glucose (65-105) mg/dl Lactate (0.7-2.1) mmol/L Vent Mode Mechanical Rate FiO2 % Tidal Volume PEEP Crit Value Called To Crit Value Called By Crit Value Read Back Blood Gas Notified Time Sodium (132-148) mmol/L Potassium (3.6-5.2) mmol/L Chloride (98-107) mmol/L Carbon Dioxide (22-30) mmol/L Anion Gap (10-20) BUN (7-17) mg/dL Creatinine (0.7-1.2) mg/dL Est GFR ( Amer) Est GFR (Non-Af Amer) POC Glucose (mg/dL) 193 H 191 H 190 H (65-110) mg/dL Random Glucose (65-105) mg/dL Serum Osmolality (272-300) mosm/kg Calcium (8.6-10.4) mg/dl Phosphorus (2.5-4.5) mg/dL Magnesium (1.6-2.3) mg/dL Total Bilirubin (0.2-1.3) mg/dL AST (14-36) U/L ALT (9-52) U/L Alkaline Phosphatase (38-126) U/L Total Creatine Kinase (30-135) U/L Troponin I (0.00-0.120) ng/mL Total Protein (6.3-8.3) g/dL Albumin (3.5-5.0) g/dL Globulin (2.2-3.9) gm/dL Albumin/Globulin Ratio (1.0-2.1) Procalcitonin (0.19-0.49) NG/ML Arterial Blood Potassium (3.6-5.2) mmol/L Vancomycin Trough (5.0-10.0) ug/mL Acetaminophen (10.0-30.0) ug/mL Hepatitis A IgM Ab (NEGATIVE) Hep Bs Antigen (NEGATIVE) Hep B Core IgM Ab (NEGATIVE) Hepatitis C Antibody (NEGATIVE) HIV 1&2 Antibody Screen (NEGATIVE) Blood Parasites Smear (NEGATIVE) 05/03/18 05/03/18 05/03/18 Range/Units 09:04 07:52 05:56 WBC (4.8-10.8) K/uL RBC (3.80-5.20) Mil/uL Hgb (11.0-16.0) g/dL Hct (34.0-47.0) % MCV (81.0-99.0) fL MCH (27.0-31.0) pg MCHC (33.0-37.0) g/dL RDW (11.5-14.5) % Plt Count (130-400) K/uL MPV (7.2-11.7) fL Neut % (Auto) (50.0-75.0) % Lymph % (Auto) (20.0-40.0) % [place] % (Auto) (0.0-10.0) % Eos % (Auto) (0.0-4.0) % Baso % (Auto) (0.0-2.0) % Neut # (Auto) (1.8-7.0) K/uL Lymph # (Auto) (1.0-4.3) K/uL [place] # (Auto) (0.0-0.8) K/uL Eos # (Auto) (0.0-0.7) K/uL Baso # (Auto) (0.0-0.2) K/uL Neutrophils % (Manual) (50-75) % Band Neutrophils % (0-2) % Lymphocytes % (Manual) (20-40) % Monocytes % (Manual) (0-10) % Metamyelocytes % (0-0) % Platelet Estimate (NORMAL) Large Platelets Anisocytosis (manual) Microcytosis (manual) Target Cells PT (9.7-12.2) SECONDS INR APTT (21-34) SECONDS Puncture Site pCO2 (35-45) mm/Hg pO2 (80-100) mm/Hg HCO3 (21-28) mmol/L ABG pH (7.35-7.45) ABG Total CO2 (22-28) mmol/L ABG O2 Saturation (95-98) % ABG Base Excess (-2.0-3.0) mmol/L Erik Test ABG Potassium (3.6-5.2) mmol/L A-a O2 Difference mm/Hg Respiratory Index Glucose (65-105) mg/dl Lactate (0.7-2.1) mmol/L Vent Mode Mechanical Rate FiO2 % Tidal Volume PEEP Crit Value Called To Crit Value Called By Crit Value Read Back Blood Gas Notified Time Sodium 150 H (132-148) mmol/L Potassium 3.9 (3.6-5.2) mmol/L Chloride 119 H (98-107) mmol/L Carbon Dioxide 22 (22-30) mmol/L Anion Gap 13 (10-20) BUN 22 H (7-17) mg/dL Creatinine 1.1 (0.7-1.2) mg/dL Est GFR ( Amer) > 60 Est GFR (Non-Af Amer) 52 POC Glucose (mg/dL) 182 H 182 H (65-110) mg/dL Random Glucose 172 H (65-105) mg/dL Serum Osmolality (272-300) mosm/kg Calcium 8.2 L (8.6-10.4) mg/dl Phosphorus 2.1 L (2.5-4.5) mg/dL Magnesium 1.7 (1.6-2.3) mg/dL Total Bilirubin 0.5 (0.2-1.3) mg/dL AST 200 H D (14-36) U/L ALT 300 H D (9-52) U/L Alkaline Phosphatase 86 (38-126) U/L Total Creatine Kinase (30-135) U/L Troponin I (0.00-0.120) ng/mL Total Protein 5.2 L (6.3-8.3) g/dL Albumin 2.6 L (3.5-5.0) g/dL Globulin 2.6 (2.2-3.9) gm/dL Albumin/Globulin Ratio 1.0 (1.0-2.1) Procalcitonin (0.19-0.49) NG/ML Arterial Blood Potassium (3.6-5.2) mmol/L Vancomycin Trough (5.0-10.0) ug/mL Acetaminophen (10.0-30.0) ug/mL Hepatitis A IgM Ab (NEGATIVE) Hep Bs Antigen (NEGATIVE) Hep B Core IgM Ab (NEGATIVE) Hepatitis C Antibody (NEGATIVE) HIV 1&2 Antibody Screen (NEGATIVE) Blood Parasites Smear (NEGATIVE) 05/03/18 05/03/18 05/03/18 Range/Units 05:56 05:46 00:50 WBC 29.3 H (4.8-10.8) K/uL RBC 4.83 (3.80-5.20) Mil/uL Hgb 12.6 D (11.0-16.0) g/dL Hct 38.1 (34.0-47.0) % MCV 78.8 L (81.0-99.0) fL MCH 26.2 L (27.0-31.0) pg MCHC 33.2 (33.0-37.0) g/dL RDW 16.1 H (11.5-14.5) % Plt Count 190 (130-400) K/uL MPV 11.3 (7.2-11.7) fL Neut % (Auto) 90.5 H (50.0-75.0) % Lymph % (Auto) 5.5 L (20.0-40.0) % [place] % (Auto) 3.6 (0.0-10.0) % Eos % (Auto) 0.1 (0.0-4.0) % Baso % (Auto) 0.3 (0.0-2.0) % Neut # (Auto) 26.6 H (1.8-7.0) K/uL Lymph # (Auto) 1.6 (1.0-4.3) K/uL [place] # (Auto) 1.1 H (0.0-0.8) K/uL Eos # (Auto) 0.0 (0.0-0.7) K/uL Baso # (Auto) 0.1 (0.0-0.2) K/uL Neutrophils % (Manual) 56 (50-75) % Band Neutrophils % 38 H* (0-2) % Lymphocytes % (Manual) 4 L (20-40) % Monocytes % (Manual) 2 (0-10) % Metamyelocytes % (0-0) % Platelet Estimate Normal (NORMAL) Large Platelets Anisocytosis (manual) Slight Microcytosis (manual) Slight Target Cells Slight PT (9.7-12.2) SECONDS INR APTT (21-34) SECONDS Puncture Site R rad R rad pCO2 24 L 23 L (35-45) mm/Hg pO2 59 L 76 L (80-100) mm/Hg HCO3 24.1 26.0 (21-28) mmol/L ABG pH 7.53 H 7.58 H (7.35-7.45) ABG Total CO2 20.8 L 22.3 (22-28) mmol/L ABG O2 Saturation 96.3 98.6 H (95-98) % ABG Base Excess -0.9 1.4 (-2.0-3.0) mmol/L Erik Test Pos Pos ABG Potassium 3.7 4.1 (3.6-5.2) mmol/L A-a O2 Difference 268.0 252.0 mm/Hg Respiratory Index 4.5 3.3 Glucose 196 H 192 H (65-105) mg/dl Lactate 4.6 H* 3.6 H (0.7-2.1) mmol/L Vent Mode Prvc Prvc Mechanical Rate 24 24 FiO2 50.0 50.0 % Tidal Volume 550 550 PEEP 7 7 Crit Value Called To [facility] 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 Crit Value Called By Marilia del castillo rt Crit Value Read Back Y Blood Gas Notified Time 615 Sodium 150.0 H 150.0 H (132-148) mmol/L Potassium (3.6-5.2) mmol/L Chloride 121.0 H 120.0 H (98-107) mmol/L Carbon Dioxide (22-30) mmol/L Anion Gap (10-20) BUN (7-17) mg/dL Creatinine (0.7-1.2) mg/dL Est GFR ( Amer) Est GFR (Non-Af Amer) POC Glucose (mg/dL) (65-110) mg/dL Random Glucose (65-105) mg/dL Serum Osmolality (272-300) mosm/kg Calcium (8.6-10.4) mg/dl Phosphorus (2.5-4.5) mg/dL Magnesium (1.6-2.3) mg/dL Total Bilirubin (0.2-1.3) mg/dL AST (14-36) U/L ALT (9-52) U/L Alkaline Phosphatase (38-126) U/L Total Creatine Kinase (30-135) U/L Troponin I (0.00-0.120) ng/mL Total Protein (6.3-8.3) g/dL Albumin (3.5-5.0) g/dL Globulin (2.2-3.9) gm/dL Albumin/Globulin Ratio (1.0-2.1) Procalcitonin (0.19-0.49) NG/ML Arterial Blood Potassium 3.7 4.1 (3.6-5.2) mmol/L Vancomycin Trough (5.0-10.0) ug/mL Acetaminophen (10.0-30.0) ug/mL Hepatitis A IgM Ab (NEGATIVE) Hep Bs Antigen (NEGATIVE) Hep B Core IgM Ab (NEGATIVE) Hepatitis C Antibody (NEGATIVE) HIV 1&2 Antibody Screen (NEGATIVE) Blood Parasites Smear (NEGATIVE) 05/02/18 05/02/18 05/02/18 Range/Units 20:39 20:39 20:35 WBC (4.8-10.8) K/uL RBC (3.80-5.20) Mil/uL Hgb (11.0-16.0) g/dL Hct (34.0-47.0) % MCV (81.0-99.0) fL MCH (27.0-31.0) pg MCHC (33.0-37.0) g/dL RDW (11.5-14.5) % Plt Count (130-400) K/uL MPV (7.2-11.7) fL Neut % (Auto) (50.0-75.0) % Lymph % (Auto) (20.0-40.0) % [place] % (Auto) (0.0-10.0) % Eos % (Auto) (0.0-4.0) % Baso % (Auto) (0.0-2.0) % Neut # (Auto) (1.8-7.0) K/uL Lymph # (Auto) (1.0-4.3) K/uL [place] # (Auto) (0.0-0.8) K/uL Eos # (Auto) (0.0-0.7) K/uL Baso # (Auto) (0.0-0.2) K/uL Neutrophils % (Manual) (50-75) % Band Neutrophils % (0-2) % Lymphocytes % (Manual) (20-40) % Monocytes % (Manual) (0-10) % Metamyelocytes % (0-0) % Platelet Estimate (NORMAL) Large Platelets Anisocytosis (manual) Microcytosis (manual) Target Cells PT (9.7-12.2) SECONDS INR APTT 128 H* D (21-34) SECONDS Puncture Site Rra pCO2 56 H (35-45) mm/Hg pO2 80 (80-100) mm/Hg HCO3 22.6 (21-28) mmol/L ABG pH 7.26 L (7.35-7.45) ABG Total CO2 26.8 (22-28) mmol/L ABG O2 Saturation 98.7 H (95-98) % ABG Base Excess -2.8 L (-2.0-3.0) mmol/L Erik Test Na ABG Potassium 4.8 (3.6-5.2) mmol/L A-a O2 Difference 278.0 mm/Hg Respiratory Index 3.5 Glucose 203 H (65-105) mg/dl Lactate 2.7 H (0.7-2.1) mmol/L Vent Mode Prvc Mechanical Rate 24 FiO2 60.0 % Tidal Volume 450 PEEP 10 Crit Value Called To Crit Value Called By Crit Value Read Back Blood Gas Notified Time Sodium 149.0 H (132-148) mmol/L Potassium (3.6-5.2) mmol/L Chloride 117.0 H (98-107) mmol/L Carbon Dioxide (22-30) mmol/L Anion Gap (10-20) BUN (7-17) mg/dL Creatinine (0.7-1.2) mg/dL Est GFR ( Amer) Est GFR (Non-Af Amer) POC Glucose (mg/dL) (65-110) mg/dL Random Glucose (65-105) mg/dL Serum Osmolality (272-300) mosm/kg Calcium (8.6-10.4) mg/dl Phosphorus (2.5-4.5) mg/dL Magnesium (1.6-2.3) mg/dL Total Bilirubin (0.2-1.3) mg/dL AST (14-36) U/L ALT (9-52) U/L Alkaline Phosphatase (38-126) U/L Total Creatine Kinase (30-135) U/L Troponin I (0.00-0.120) ng/mL Total Protein (6.3-8.3) g/dL Albumin (3.5-5.0) g/dL Globulin (2.2-3.9) gm/dL Albumin/Globulin Ratio (1.0-2.1) Procalcitonin (0.19-0.49) NG/ML Arterial Blood Potassium 4.8 (3.6-5.2) mmol/L Vancomycin Trough < 5.0 L (5.0-10.0) ug/mL Acetaminophen (10.0-30.0) ug/mL Hepatitis A IgM Ab (NEGATIVE) Hep Bs Antigen (NEGATIVE) Hep B Core IgM Ab (NEGATIVE) Hepatitis C Antibody (NEGATIVE) HIV 1&2 Antibody Screen (NEGATIVE) Blood Parasites Smear (NEGATIVE) 05/02/18 05/02/18 05/02/18 Range/Units 19:08 19:08 13:35 WBC (4.8-10.8) K/uL RBC (3.80-5.20) Mil/uL Hgb (11.0-16.0) g/dL Hct (34.0-47.0) % MCV (81.0-99.0) fL MCH (27.0-31.0) pg MCHC (33.0-37.0) g/dL RDW (11.5-14.5) % Plt Count (130-400) K/uL MPV (7.2-11.7) fL Neut % (Auto) (50.0-75.0) % Lymph % (Auto) (20.0-40.0) % [place] % (Auto) (0.0-10.0) % Eos % (Auto) (0.0-4.0) % Baso % (Auto) (0.0-2.0) % Neut # (Auto) (1.8-7.0) K/uL Lymph # (Auto) (1.0-4.3) K/uL [place] # (Auto) (0.0-0.8) K/uL Eos # (Auto) (0.0-0.7) K/uL Baso # (Auto) (0.0-0.2) K/uL Neutrophils % (Manual) (50-75) % Band Neutrophils % (0-2) % Lymphocytes % (Manual) (20-40) % Monocytes % (Manual) (0-10) % Metamyelocytes % (0-0) % Platelet Estimate (NORMAL) Large Platelets Anisocytosis (manual) Microcytosis (manual) Target Cells PT (9.7-12.2) SECONDS INR APTT (21-34) SECONDS Puncture Site Rba pCO2 53 H (35-45) mm/Hg pO2 75 L (80-100) mm/Hg HCO3 20.3 L (21-28) mmol/L ABG pH 7.23 L (7.35-7.45) ABG Total CO2 23.8 (22-28) mmol/L ABG O2 Saturation 97.2 (95-98) % ABG Base Excess -5.8 L (-2.0-3.0) mmol/L Erik Test Na ABG Potassium 4.4 (3.6-5.2) mmol/L A-a O2 Difference 287.0 mm/Hg Respiratory Index 3.8 Glucose 260 H (65-105) mg/dl Lactate 4.0 H* (0.7-2.1) mmol/L Vent Mode Mechanical Rate 30 FiO2 60.0 % Tidal Volume PEEP 10 Crit Value Called To Crit Value Called By Crit Value Read Back Blood Gas Notified Time Sodium 148.0 (132-148) mmol/L Potassium (3.6-5.2) mmol/L Chloride 117.0 H (98-107) mmol/L Carbon Dioxide (22-30) mmol/L Anion Gap (10-20) BUN (7-17) mg/dL Creatinine (0.7-1.2) mg/dL Est GFR ( Amer) Est GFR (Non-Af Amer) POC Glucose (mg/dL) (65-110) mg/dL Random Glucose (65-105) mg/dL Serum Osmolality (272-300) mosm/kg Calcium (8.6-10.4) mg/dl Phosphorus (2.5-4.5) mg/dL Magnesium (1.6-2.3) mg/dL Total Bilirubin (0.2-1.3) mg/dL AST (14-36) U/L ALT (9-52) U/L Alkaline Phosphatase (38-126) U/L Total Creatine Kinase (30-135) U/L Troponin I (0.00-0.120) ng/mL Total Protein (6.3-8.3) g/dL Albumin (3.5-5.0) g/dL Globulin (2.2-3.9) gm/dL Albumin/Globulin Ratio (1.0-2.1) Procalcitonin (0.19-0.49) NG/ML Arterial Blood Potassium 4.4 (3.6-5.2) mmol/L Vancomycin Trough (5.0-10.0) ug/mL Acetaminophen < 10.0 L (10.0-30.0) ug/mL Hepatitis A IgM Ab (NEGATIVE) Hep Bs Antigen (NEGATIVE) Hep B Core IgM Ab (NEGATIVE) Hepatitis C Antibody (NEGATIVE) HIV 1&2 Antibody Screen (NEGATIVE) Blood Parasites Smear Negative (NEGATIVE) 05/02/18 05/02/18 05/02/18 Range/Units 13:23 13:23 13:23 WBC (4.8-10.8) K/uL RBC (3.80-5.20) Mil/uL Hgb (11.0-16.0) g/dL Hct (34.0-47.0) % MCV (81.0-99.0) fL MCH (27.0-31.0) pg MCHC (33.0-37.0) g/dL RDW (11.5-14.5) % Plt Count (130-400) K/uL MPV (7.2-11.7) fL Neut % (Auto) (50.0-75.0) % Lymph % (Auto) (20.0-40.0) % [place] % (Auto) (0.0-10.0) % Eos % (Auto) (0.0-4.0) % Baso % (Auto) (0.0-2.0) % Neut # (Auto) (1.8-7.0) K/uL Lymph # (Auto) (1.0-4.3) K/uL [place] # (Auto) (0.0-0.8) K/uL Eos # (Auto) (0.0-0.7) K/uL Baso # (Auto) (0.0-0.2) K/uL Neutrophils % (Manual) (50-75) % Band Neutrophils % (0-2) % Lymphocytes % (Manual) (20-40) % Monocytes % (Manual) (0-10) % Metamyelocytes % (0-0) % Platelet Estimate (NORMAL) Large Platelets Anisocytosis (manual) Microcytosis (manual) Target Cells PT 12.6 H (9.7-12.2) SECONDS INR 1.2 APTT 81 H D (21-34) SECONDS Puncture Site pCO2 (35-45) mm/Hg pO2 (80-100) mm/Hg HCO3 (21-28) mmol/L ABG pH (7.35-7.45) ABG Total CO2 (22-28) mmol/L ABG O2 Saturation (95-98) % ABG Base Excess (-2.0-3.0) mmol/L Erik Test ABG Potassium (3.6-5.2) mmol/L A-a O2 Difference mm/Hg Respiratory Index Glucose (65-105) mg/dl Lactate (0.7-2.1) mmol/L Vent Mode Mechanical Rate FiO2 % Tidal Volume PEEP Crit Value Called To Crit Value Called By Crit Value Read Back Blood Gas Notified Time Sodium 150 H (132-148) mmol/L Potassium 5.0 (3.6-5.2) mmol/L Chloride 118 H (98-107) mmol/L Carbon Dioxide 20 L (22-30) mmol/L Anion Gap 17 (10-20) BUN 20 H (7-17) mg/dL Creatinine 1.1 (0.7-1.2) mg/dL Est GFR ( Amer) > 60 Est GFR (Non-Af Amer) 52 POC Glucose (mg/dL) (65-110) mg/dL Random Glucose 253 H (65-105) mg/dL Serum Osmolality 329 H (272-300) mosm/kg Calcium 9.0 (8.6-10.4) mg/dl Phosphorus 1.6 L (2.5-4.5) mg/dL Magnesium 1.8 (1.6-2.3) mg/dL Total Bilirubin 0.6 (0.2-1.3) mg/dL AST 537 H D (14-36) U/L ALT 475 H (9-52) U/L Alkaline Phosphatase 100 (38-126) U/L Total Creatine Kinase 220 H (30-135) U/L Troponin I 5.0600 H* (0.00-0.120) ng/mL Total Protein 5.7 L (6.3-8.3) g/dL Albumin 2.9 L (3.5-5.0) g/dL Globulin 2.8 (2.2-3.9) gm/dL Albumin/Globulin Ratio 1.0 (1.0-2.1) Procalcitonin (0.19-0.49) NG/ML Arterial Blood Potassium (3.6-5.2) mmol/L Vancomycin Trough (5.0-10.0) ug/mL Acetaminophen (10.0-30.0) ug/mL Hepatitis A IgM Ab (NEGATIVE) Hep Bs Antigen (NEGATIVE) Hep B Core IgM Ab (NEGATIVE) Hepatitis C Antibody (NEGATIVE) HIV 1&2 Antibody Screen (NEGATIVE) Blood Parasites Smear (NEGATIVE) 05/02/18 05/02/18 05/02/18 Range/Units 13:23 13:23 13:23 WBC 36.3 H D (4.8-10.8) K/uL RBC 5.95 H (3.80-5.20) Mil/uL Hgb 15.8 (11.0-16.0) g/dL Hct 47.2 H (34.0-47.0) % MCV 79.3 L D (81.0-99.0) fL MCH 26.6 L (27.0-31.0) pg MCHC 33.5 (33.0-37.0) g/dL RDW 15.7 H (11.5-14.5) % Plt Count 245 (130-400) K/uL MPV 10.5 (7.2-11.7) fL Neut % (Auto) 93.8 H (50.0-75.0) % Lymph % (Auto) 3.5 L (20.0-40.0) % [place] % (Auto) 2.6 (0.0-10.0) % Eos % (Auto) 0.0 (0.0-4.0) % Baso % (Auto) 0.1 (0.0-2.0) % Neut # (Auto) 34.0 H (1.8-7.0) K/uL Lymph # (Auto) 1.3 (1.0-4.3) K/uL [place] # (Auto) 0.9 H (0.0-0.8) K/uL Eos # (Auto) 0.0 (0.0-0.7) K/uL Baso # (Auto) 0.0 (0.0-0.2) K/uL Neutrophils % (Manual) 55 (50-75) % Band Neutrophils % 35 H* (0-2) % Lymphocytes % (Manual) 7 L (20-40) % Monocytes % (Manual) 1 (0-10) % Metamyelocytes % 2 H (0-0) % Platelet Estimate Normal (NORMAL) Large Platelets Present Anisocytosis (manual) Slight Microcytosis (manual) Target Cells PT (9.7-12.2) SECONDS INR APTT (21-34) SECONDS Puncture Site pCO2 (35-45) mm/Hg pO2 (80-100) mm/Hg HCO3 (21-28) mmol/L ABG pH (7.35-7.45) ABG Total CO2 (22-28) mmol/L ABG O2 Saturation (95-98) % ABG Base Excess (-2.0-3.0) mmol/L Erik Test ABG Potassium (3.6-5.2) mmol/L A-a O2 Difference mm/Hg Respiratory Index Glucose (65-105) mg/dl Lactate (0.7-2.1) mmol/L Vent Mode Mechanical Rate FiO2 % Tidal Volume PEEP Crit Value Called To Crit Value Called By Crit Value Read Back Blood Gas Notified Time Sodium (132-148) mmol/L Potassium (3.6-5.2) mmol/L Chloride (98-107) mmol/L Carbon Dioxide (22-30) mmol/L Anion Gap (10-20) BUN (7-17) mg/dL Creatinine (0.7-1.2) mg/dL Est GFR ( Amer) Est GFR (Non-Af Amer) POC Glucose (mg/dL) (65-110) mg/dL Random Glucose (65-105) mg/dL Serum Osmolality (272-300) mosm/kg Calcium (8.6-10.4) mg/dl Phosphorus (2.5-4.5) mg/dL Magnesium (1.6-2.3) mg/dL Total Bilirubin (0.2-1.3) mg/dL AST (14-36) U/L ALT (9-52) U/L Alkaline Phosphatase (38-126) U/L Total Creatine Kinase (30-135) U/L Troponin I (0.00-0.120) ng/mL Total Protein (6.3-8.3) g/dL Albumin (3.5-5.0) g/dL Globulin (2.2-3.9) gm/dL Albumin/Globulin Ratio (1.0-2.1) Procalcitonin 30.81 H (0.19-0.49) NG/ML Arterial Blood Potassium (3.6-5.2) mmol/L Vancomycin Trough (5.0-10.0) ug/mL Acetaminophen (10.0-30.0) ug/mL Hepatitis A IgM Ab (NEGATIVE) Hep Bs Antigen (NEGATIVE) Hep B Core IgM Ab (NEGATIVE) Hepatitis C Antibody (NEGATIVE) HIV 1&2 Antibody Screen Negative (NEGATIVE) Blood Parasites Smear (NEGATIVE) 05/02/18 05/02/18 05/02/18 Range/Units 13:23 02:46 02:00 WBC (4.8-10.8) K/uL RBC (3.80-5.20) Mil/uL Hgb (11.0-16.0) g/dL Hct (34.0-47.0) % MCV (81.0-99.0) fL MCH (27.0-31.0) pg MCHC (33.0-37.0) g/dL RDW (11.5-14.5) % Plt Count (130-400) K/uL MPV (7.2-11.7) fL Neut % (Auto) (50.0-75.0) % Lymph % (Auto) (20.0-40.0) % [place] % (Auto) (0.0-10.0) % Eos % (Auto) (0.0-4.0) % Baso % (Auto) (0.0-2.0) % Neut # (Auto) (1.8-7.0) K/uL Lymph # (Auto) (1.0-4.3) K/uL [place] # (Auto) (0.0-0.8) K/uL Eos # (Auto) (0.0-0.7) K/uL Baso # (Auto) (0.0-0.2) K/uL Neutrophils % (Manual) (50-75) % Band Neutrophils % (0-2) % Lymphocytes % (Manual) (20-40) % Monocytes % (Manual) (0-10) % Metamyelocytes % (0-0) % Platelet Estimate (NORMAL) Large Platelets Anisocytosis (manual) Microcytosis (manual) Target Cells PT (9.7-12.2) SECONDS INR APTT (21-34) SECONDS Puncture Site pCO2 (35-45) mm/Hg pO2 (80-100) mm/Hg HCO3 (21-28) mmol/L ABG pH (7.35-7.45) ABG Total CO2 (22-28) mmol/L ABG O2 Saturation (95-98) % ABG Base Excess (-2.0-3.0) mmol/L Erik Test ABG Potassium (3.6-5.2) mmol/L A-a O2 Difference mm/Hg Respiratory Index Glucose (65-105) mg/dl Lactate (0.7-2.1) mmol/L Vent Mode Mechanical Rate FiO2 % Tidal Volume PEEP Crit Value Called To Crit Value Called By Crit Value Read Back Blood Gas Notified Time Sodium (132-148) mmol/L Potassium (3.6-5.2) mmol/L Chloride (98-107) mmol/L Carbon Dioxide (22-30) mmol/L Anion Gap (10-20) BUN (7-17) mg/dL Creatinine (0.7-1.2) mg/dL Est GFR ( Amer) Est GFR (Non-Af Amer) POC Glucose (mg/dL) > 500 H* > 500 H* (65-110) mg/dL Random Glucose (65-105) mg/dL Serum Osmolality (272-300) mosm/kg Calcium (8.6-10.4) mg/dl Phosphorus (2.5-4.5) mg/dL Magnesium (1.6-2.3) mg/dL Total Bilirubin (0.2-1.3) mg/dL AST (14-36) U/L ALT (9-52) U/L Alkaline Phosphatase (38-126) U/L Total Creatine Kinase (30-135) U/L Troponin I (0.00-0.120) ng/mL Total Protein (6.3-8.3) g/dL Albumin (3.5-5.0) g/dL Globulin (2.2-3.9) gm/dL Albumin/Globulin Ratio (1.0-2.1) Procalcitonin (0.19-0.49) NG/ML Arterial Blood Potassium (3.6-5.2) mmol/L Vancomycin Trough (5.0-10.0) ug/mL Acetaminophen (10.0-30.0) ug/mL Hepatitis A IgM Ab Negative (NEGATIVE) Hep Bs Antigen Negative (NEGATIVE) Hep B Core IgM Ab Negative (NEGATIVE) Hepatitis C Antibody Negative (NEGATIVE) HIV 1&2 Antibody Screen (NEGATIVE) Blood Parasites Smear (NEGATIVE) 05/02/18 05/01/18 Range/Units 01:33 22:11 WBC (4.8-10.8) K/uL RBC (3.80-5.20) Mil/uL Hgb (11.0-16.0) g/dL Hct (34.0-47.0) % MCV (81.0-99.0) fL MCH (27.0-31.0) pg MCHC (33.0-37.0) g/dL RDW (11.5-14.5) % Plt Count (130-400) K/uL MPV (7.2-11.7) fL Neut % (Auto) (50.0-75.0) % Lymph % (Auto) (20.0-40.0) % [place] % (Auto) (0.0-10.0) % Eos % (Auto) (0.0-4.0) % Baso % (Auto) (0.0-2.0) % Neut # (Auto) (1.8-7.0) K/uL Lymph # (Auto) (1.0-4.3) K/uL [place] # (Auto) (0.0-0.8) K/uL Eos # (Auto) (0.0-0.7) K/uL Baso # (Auto) (0.0-0.2) K/uL Neutrophils % (Manual) (50-75) % Band Neutrophils % (0-2) % Lymphocytes % (Manual) (20-40) % Monocytes % (Manual) (0-10) % Metamyelocytes % (0-0) % Platelet Estimate (NORMAL) Large Platelets Anisocytosis (manual) Microcytosis (manual) Target Cells PT (9.7-12.2) SECONDS INR APTT (21-34) SECONDS Puncture Site pCO2 (35-45) mm/Hg pO2 (80-100) mm/Hg HCO3 (21-28) mmol/L ABG pH (7.35-7.45) ABG Total CO2 (22-28) mmol/L ABG O2 Saturation (95-98) % ABG Base Excess (-2.0-3.0) mmol/L Erik Test ABG Potassium (3.6-5.2) mmol/L A-a O2 Difference mm/Hg Respiratory Index Glucose (65-105) mg/dl Lactate (0.7-2.1) mmol/L Vent Mode Mechanical Rate FiO2 % Tidal Volume PEEP Crit Value Called To Crit Value Called By Crit Value Read Back Blood Gas Notified Time Sodium (132-148) mmol/L Potassium (3.6-5.2) mmol/L Chloride (98-107) mmol/L Carbon Dioxide (22-30) mmol/L Anion Gap (10-20) BUN (7-17) mg/dL Creatinine (0.7-1.2) mg/dL Est GFR ( Amer) Est GFR (Non-Af Amer) POC Glucose (mg/dL) > 500 H* > 500 H* (65-110) mg/dL Random Glucose (65-105) mg/dL Serum Osmolality (272-300) mosm/kg Calcium (8.6-10.4) mg/dl Phosphorus (2.5-4.5) mg/dL Magnesium (1.6-2.3) mg/dL Total Bilirubin (0.2-1.3) mg/dL AST (14-36) U/L ALT (9-52) U/L Alkaline Phosphatase (38-126) U/L Total Creatine Kinase (30-135) U/L Troponin I (0.00-0.120) ng/mL Total Protein (6.3-8.3) g/dL Albumin (3.5-5.0) g/dL Globulin (2.2-3.9) gm/dL Albumin/Globulin Ratio (1.0-2.1) Procalcitonin (0.19-0.49) NG/ML Arterial Blood Potassium (3.6-5.2) mmol/L Vancomycin Trough (5.0-10.0) ug/mL Acetaminophen (10.0-30.0) ug/mL Hepatitis A IgM Ab (NEGATIVE) Hep Bs Antigen (NEGATIVE) Hep B Core IgM Ab (NEGATIVE) Hepatitis C Antibody (NEGATIVE) HIV 1&2 Antibody Screen (NEGATIVE) Blood Parasites Smear (NEGATIVE) Laboratory Results - last 24 hr 05/01/18 05/02/18 05/02/18 22:11 01:33 02:00 WBC RBC Hgb Hct MCV MCH MCHC RDW Plt Count MPV Neut % (Auto) Lymph % (Auto) [place] % (Auto) Eos % (Auto) Baso % (Auto) Neut # (Auto) Lymph # (Auto) [place] # (Auto) Eos # (Auto) Baso # (Auto) Neutrophils % (Manual) Band Neutrophils % Lymphocytes % (Manual) Monocytes % (Manual) Metamyelocytes % Platelet Estimate Large Platelets Anisocytosis (manual) Microcytosis (manual) Target Cells PT INR APTT Puncture Site pCO2 pO2 HCO3 ABG pH ABG Total CO2 ABG O2 Saturation ABG Base Excess Erik Test ABG Potassium A-a O2 Difference Respiratory Index Glucose Lactate Vent Mode Mechanical Rate FiO2 Tidal Volume PEEP Crit Value Called To Crit Value Called By Crit Value Read Back Blood Gas Notified Time Sodium Potassium Chloride Carbon Dioxide Anion Gap BUN Creatinine Est GFR ( Amer) Est GFR (Non-Af Amer) POC Glucose (mg/dL) > 500 H* > 500 H* > 500 H* Random Glucose Serum Osmolality Calcium Phosphorus Magnesium Total Bilirubin AST ALT Alkaline Phosphatase Total Creatine Kinase Troponin I Total Protein Albumin Globulin Albumin/Globulin Ratio Procalcitonin Arterial Blood Potassium Vancomycin Trough Acetaminophen Hepatitis A IgM Ab Hep Bs Antigen Hep B Core IgM Ab Hepatitis C Antibody HIV 1&2 Antibody Screen Blood Parasites Smear 05/02/18 05/02/18 05/02/18 02:46 13:23 13:23 WBC RBC Hgb Hct MCV MCH MCHC RDW Plt Count MPV Neut % (Auto) Lymph % (Auto) [place] % (Auto) Eos % (Auto) Baso % (Auto) Neut # (Auto) Lymph # (Auto) [place] # (Auto) Eos # (Auto) Baso # (Auto) Neutrophils % (Manual) Band Neutrophils % Lymphocytes % (Manual) Monocytes % (Manual) Metamyelocytes % Platelet Estimate Large Platelets Anisocytosis (manual) Microcytosis (manual) Target Cells PT INR APTT Puncture Site pCO2 pO2 HCO3 ABG pH ABG Total CO2 ABG O2 Saturation ABG Base Excess Erik Test ABG Potassium A-a O2 Difference Respiratory Index Glucose Lactate Vent Mode Mechanical Rate FiO2 Tidal Volume PEEP Crit Value Called To Crit Value Called By Crit Value Read Back Blood Gas Notified Time Sodium Potassium Chloride Carbon Dioxide Anion Gap BUN Creatinine Est GFR ( Amer) Est GFR (Non-Af Amer) POC Glucose (mg/dL) > 500 H* Random Glucose Serum Osmolality Calcium Phosphorus Magnesium Total Bilirubin AST ALT Alkaline Phosphatase Total Creatine Kinase Troponin I Total Protein Albumin Globulin Albumin/Globulin Ratio Procalcitonin Arterial Blood Potassium Vancomycin Trough Acetaminophen Hepatitis A IgM Ab Negative Hep Bs Antigen Negative Hep B Core IgM Ab Negative Hepatitis C Antibody Negative HIV 1&2 Antibody Screen Negative Blood Parasites Smear 05/02/18 05/02/18 05/02/18 13:23 13:23 13:23 WBC 36.3 H D RBC 5.95 H Hgb 15.8 Hct 47.2 H MCV 79.3 L D MCH 26.6 L MCHC 33.5 RDW 15.7 H Plt Count 245 MPV 10.5 Neut % (Auto) 93.8 H Lymph % (Auto) 3.5 L [place] % (Auto) 2.6 Eos % (Auto) 0.0 Baso % (Auto) 0.1 Neut # (Auto) 34.0 H Lymph # (Auto) 1.3 [place] # (Auto) 0.9 H Eos # (Auto) 0.0 Baso # (Auto) 0.0 Neutrophils % (Manual) 55 Band Neutrophils % 35 H* Lymphocytes % (Manual) 7 L Monocytes % (Manual) 1 Metamyelocytes % 2 H Platelet Estimate Normal Large Platelets Present Anisocytosis (manual) Slight Microcytosis (manual) Target Cells PT 12.6 H INR 1.2 APTT 81 H D Puncture Site pCO2 pO2 HCO3 ABG pH ABG Total CO2 ABG O2 Saturation ABG Base Excess Erik Test ABG Potassium A-a O2 Difference Respiratory Index Glucose Lactate Vent Mode Mechanical Rate FiO2 Tidal Volume PEEP Crit Value Called To Crit Value Called By Crit Value Read Back Blood Gas Notified Time Sodium Potassium Chloride Carbon Dioxide Anion Gap BUN Creatinine Est GFR ( Amer) Est GFR (Non-Af Amer) POC Glucose (mg/dL) Random Glucose Serum Osmolality Calcium Phosphorus Magnesium Total Bilirubin AST ALT Alkaline Phosphatase Total Creatine Kinase Troponin I Total Protein Albumin Globulin Albumin/Globulin Ratio Procalcitonin 30.81 H Arterial Blood Potassium Vancomycin Trough Acetaminophen Hepatitis A IgM Ab Hep Bs Antigen Hep B Core IgM Ab Hepatitis C Antibody HIV 1&2 Antibody Screen Blood Parasites Smear 05/02/18 05/02/18 05/02/18 13:23 13:23 13:35 WBC RBC Hgb Hct MCV MCH MCHC RDW Plt Count MPV Neut % (Auto) Lymph % (Auto) [place] % (Auto) Eos % (Auto) Baso % (Auto) Neut # (Auto) Lymph # (Auto) [place] # (Auto) Eos # (Auto) Baso # (Auto) Neutrophils % (Manual) Band Neutrophils % Lymphocytes % (Manual) Monocytes % (Manual) Metamyelocytes % Platelet Estimate Large Platelets Anisocytosis (manual) Microcytosis (manual) Target Cells PT INR APTT Puncture Site Rba pCO2 53 H pO2 75 L HCO3 20.3 L ABG pH 7.23 L ABG Total CO2 23.8 ABG O2 Saturation 97.2 ABG Base Excess -5.8 L Erik Test Na ABG Potassium 4.4 A-a O2 Difference 287.0 Respiratory Index 3.8 Glucose 260 H Lactate 4.0 H* Vent Mode Mechanical Rate 30 FiO2 60.0 Tidal Volume PEEP 10 Crit Value Called To Crit Value Called By Crit Value Read Back Blood Gas Notified Time Sodium 150 H 148.0 Potassium 5.0 Chloride 118 H 117.0 H Carbon Dioxide 20 L Anion Gap 17 BUN 20 H Creatinine 1.1 Est GFR ( Amer) > 60 Est GFR (Non-Af Amer) 52 POC Glucose (mg/dL) Random Glucose 253 H Serum Osmolality 329 H Calcium 9.0 Phosphorus 1.6 L Magnesium 1.8 Total Bilirubin 0.6 AST 537 H D ALT 475 H Alkaline Phosphatase 100 Total Creatine Kinase 220 H Troponin I 5.0600 H* Total Protein 5.7 L Albumin 2.9 L Globulin 2.8 Albumin/Globulin Ratio 1.0 Procalcitonin Arterial Blood Potassium 4.4 Vancomycin Trough Acetaminophen Hepatitis A IgM Ab Hep Bs Antigen Hep B Core IgM Ab Hepatitis C Antibody HIV 1&2 Antibody Screen Blood Parasites Smear 05/02/18 05/02/18 05/02/18 19:08 19:08 20:35 WBC RBC Hgb Hct MCV MCH MCHC RDW Plt Count MPV Neut % (Auto) Lymph % (Auto) [place] % (Auto) Eos % (Auto) Baso % (Auto) Neut # (Auto) Lymph # (Auto) [place] # (Auto) Eos # (Auto) Baso # (Auto) Neutrophils % (Manual) Band Neutrophils % Lymphocytes % (Manual) Monocytes % (Manual) Metamyelocytes % Platelet Estimate Large Platelets Anisocytosis (manual) Microcytosis (manual) Target Cells PT INR APTT Puncture Site Rra pCO2 56 H pO2 80 HCO3 22.6 ABG pH 7.26 L ABG Total CO2 26.8 ABG O2 Saturation 98.7 H ABG Base Excess -2.8 L Erik Test Na ABG Potassium 4.8 A-a O2 Difference 278.0 Respiratory Index 3.5 Glucose 203 H Lactate 2.7 H Vent Mode Prvc Mechanical Rate 24 FiO2 60.0 Tidal Volume 450 PEEP 10 Crit Value Called To Crit Value Called By Crit Value Read Back Blood Gas Notified Time Sodium 149.0 H Potassium Chloride 117.0 H Carbon Dioxide Anion Gap BUN Creatinine Est GFR ( Amer) Est GFR (Non-Af Amer) POC Glucose (mg/dL) Random Glucose Serum Osmolality Calcium Phosphorus Magnesium Total Bilirubin AST ALT Alkaline Phosphatase Total Creatine Kinase Troponin I Total Protein Albumin Globulin Albumin/Globulin Ratio Procalcitonin Arterial Blood Potassium 4.8 Vancomycin Trough Acetaminophen < 10.0 L Hepatitis A IgM Ab Hep Bs Antigen Hep B Core IgM Ab Hepatitis C Antibody HIV 1&2 Antibody Screen Blood Parasites Smear Negative 05/02/18 05/02/18 05/03/18 20:39 20:39 00:50 WBC RBC Hgb Hct MCV MCH MCHC RDW Plt Count MPV Neut % (Auto) Lymph % (Auto) [place] % (Auto) Eos % (Auto) Baso % (Auto) Neut # (Auto) Lymph # (Auto) [place] # (Auto) Eos # (Auto) Baso # (Auto) Neutrophils % (Manual) Band Neutrophils % Lymphocytes % (Manual) Monocytes % (Manual) Metamyelocytes % Platelet Estimate Large Platelets Anisocytosis (manual) Microcytosis (manual) Target Cells PT INR APTT 128 H* D Puncture Site R rad pCO2 23 L pO2 76 L HCO3 26.0 ABG pH 7.58 H ABG Total CO2 22.3 ABG O2 Saturation 98.6 H ABG Base Excess 1.4 Erik Test Pos ABG Potassium 4.1 A-a O2 Difference 252.0 Respiratory Index 3.3 Glucose 192 H Lactate 3.6 H Vent Mode Prvc Mechanical Rate 24 FiO2 50.0 Tidal Volume 550 PEEP 7 Crit Value Called To Crit Value Called By Crit Value Read Back Blood Gas Notified Time Sodium 150.0 H Potassium Chloride 120.0 H Carbon Dioxide Anion Gap BUN Creatinine Est GFR ( Amer) Est GFR (Non-Af Amer) POC Glucose (mg/dL) Random Glucose Serum Osmolality Calcium Phosphorus Magnesium Total Bilirubin AST ALT Alkaline Phosphatase Total Creatine Kinase Troponin I Total Protein Albumin Globulin Albumin/Globulin Ratio Procalcitonin Arterial Blood Potassium 4.1 Vancomycin Trough < 5.0 L Acetaminophen Hepatitis A IgM Ab Hep Bs Antigen Hep B Core IgM Ab Hepatitis C Antibody HIV 1&2 Antibody Screen Blood Parasites Smear 05/03/18 05/03/18 05/03/18 05:46 05:56 05:56 WBC 29.3 H RBC 4.83 Hgb 12.6 D Hct 38.1 MCV 78.8 L MCH 26.2 L MCHC 33.2 RDW 16.1 H Plt Count 190 MPV 11.3 Neut % (Auto) 90.5 H Lymph % (Auto) 5.5 L [place] % (Auto) 3.6 Eos % (Auto) 0.1 Baso % (Auto) 0.3 Neut # (Auto) 26.6 H Lymph # (Auto) 1.6 [place] # (Auto) 1.1 H Eos # (Auto) 0.0 Baso # (Auto) 0.1 Neutrophils % (Manual) 56 Band Neutrophils % 38 H* Lymphocytes % (Manual) 4 L Monocytes % (Manual) 2 Metamyelocytes % Platelet Estimate Normal Large Platelets Anisocytosis (manual) Slight Microcytosis (manual) Slight Target Cells Slight PT INR APTT Puncture Site R rad pCO2 24 L pO2 59 L HCO3 24.1 ABG pH 7.53 H ABG Total CO2 20.8 L ABG O2 Saturation 96.3 ABG Base Excess -0.9 Erik Test Pos ABG Potassium 3.7 A-a O2 Difference 268.0 Respiratory Index 4.5 Glucose 196 H Lactate 4.6 H* Vent Mode Prvc Mechanical Rate 24 FiO2 50.0 Tidal Volume 550 PEEP 7 Crit Value Called 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[facility] 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 Crit Value Called By Marilia del castillo rt Crit Value Read Back Y Blood Gas Notified Time 615 Sodium 150.0 H 150 H Potassium 3.9 Chloride 121.0 H 119 H Carbon Dioxide 22 Anion Gap 13 BUN 22 H Creatinine 1.1 Est GFR ( Amer) > 60 Est GFR (Non-Af Amer) 52 POC Glucose (mg/dL) Random Glucose 172 H Serum Osmolality Calcium 8.2 L Phosphorus 2.1 L Magnesium 1.7 Total Bilirubin 0.5 AST 200 H D ALT 300 H D Alkaline Phosphatase 86 Total Creatine Kinase Troponin I Total Protein 5.2 L Albumin 2.6 L Globulin 2.6 Albumin/Globulin Ratio 1.0 Procalcitonin Arterial Blood Potassium 3.7 Vancomycin Trough Acetaminophen Hepatitis A IgM Ab Hep Bs Antigen Hep B Core IgM Ab Hepatitis C Antibody HIV 1&2 Antibody Screen Blood Parasites Smear 05/03/18 05/03/18 05/03/18 07:52 09:04 10:04 WBC RBC Hgb Hct MCV MCH MCHC RDW Plt Count MPV Neut % (Auto) Lymph % (Auto) [place] % (Auto) Eos % (Auto) Baso % (Auto) Neut # (Auto) Lymph # (Auto) [place] # (Auto) Eos # (Auto) Baso # (Auto) Neutrophils % (Manual) Band Neutrophils % Lymphocytes % (Manual) Monocytes % (Manual) Metamyelocytes % Platelet Estimate Large Platelets Anisocytosis (manual) Microcytosis (manual) Target Cells PT INR APTT Puncture Site pCO2 pO2 HCO3 ABG pH ABG Total CO2 ABG O2 Saturation ABG Base Excess Erik Test ABG Potassium A-a O2 Difference Respiratory Index Glucose Lactate Vent Mode Mechanical Rate FiO2 Tidal Volume PEEP Crit Value Called To Crit Value Called By Crit Value Read Back Blood Gas Notified Time Sodium Potassium Chloride Carbon Dioxide Anion Gap BUN Creatinine Est GFR ( Amer) Est GFR (Non-Af Amer) POC Glucose (mg/dL) 182 H 182 H 190 H Random Glucose Serum Osmolality Calcium Phosphorus Magnesium Total Bilirubin AST ALT Alkaline Phosphatase Total Creatine Kinase Troponin I Total Protein Albumin Globulin Albumin/Globulin Ratio Procalcitonin Arterial Blood Potassium Vancomycin Trough Acetaminophen Hepatitis A IgM Ab Hep Bs Antigen Hep B Core IgM Ab Hepatitis C Antibody HIV 1&2 Antibody Screen Blood Parasites Smear 05/03/18 05/03/18 11:06 11:56 WBC RBC Hgb Hct MCV MCH MCHC RDW Plt Count MPV Neut % (Auto) Lymph % (Auto) [place] % (Auto) Eos % (Auto) Baso % (Auto) Neut # (Auto) Lymph # (Auto) [place] # (Auto) Eos # (Auto) Baso # (Auto) Neutrophils % (Manual) Band Neutrophils % Lymphocytes % (Manual) Monocytes % (Manual) Metamyelocytes % Platelet Estimate Large Platelets Anisocytosis (manual) Microcytosis (manual) Target Cells PT INR APTT Puncture Site pCO2 pO2 HCO3 ABG pH ABG Total CO2 ABG O2 Saturation ABG Base Excess Erik Test ABG Potassium A-a O2 Difference Respiratory Index Glucose Lactate Vent Mode Mechanical Rate FiO2 Tidal Volume PEEP Crit Value Called To Crit Value Called By Crit Value Read Back Blood Gas Notified Time Sodium Potassium Chloride Carbon Dioxide Anion Gap BUN Creatinine Est GFR ( Amer) Est GFR (Non-Af Amer) POC Glucose (mg/dL) 191 H 193 H Random Glucose Serum Osmolality Calcium Phosphorus Magnesium Total Bilirubin AST ALT Alkaline Phosphatase Total Creatine Kinase Troponin I Total Protein Albumin Globulin Albumin/Globulin Ratio Procalcitonin Arterial Blood Potassium Vancomycin Trough Acetaminophen Hepatitis A IgM Ab Hep Bs Antigen Hep B Core IgM Ab Hepatitis C Antibody HIV 1&2 Antibody Screen Blood Parasites Smear Fingerstick Blood Sugar Results: 193 Review of Systems - Review of Systems Systems not reviewed;Unavailable: Acuity of Condition Assessment/Plan - Assessment and Plan (Free Text) Assessment: This is a 52 year old female with probable past medical history of diabetes mellitus type 2 who was found unresponsive by on 05/01 (reportedly). EMS was called and patient was resuscitated and subsequently intubated on the field and brought to the ED. While in the ED: CODE STROKE was called, patient was subsequently admitted to ICU for close monitoring and evaluation for anoxic brain injury. Patient was noted on physical exam to have ring monge suggestive of suicidal attempt by hanging. [employer] is involved and state high likelihood of suicidal attempt. Neuro: Anoxic Brain Injury Possibly 2/2 Asphyxiation Possibly 2/2 Suicidal Attempt Via Hanging - [employer] involved and on case - Dr. Duff consulted: recommendations appreciated * Poor prognosis, but with some improvement in the exam - EEG obtained: showed diffuse encephalopathy with burst suppression - CT without contrast obtained: - Repeat CT 05/03 official report: Stable poor cortical medullary differentiation with scattered edematous changes. No significant interval changes - May allow some permissive HTN for now, unless she becomes bradycardic, or CT head shows bleed - Neuro checks - Monitor - Permissive HTN < 220 systolic (unless patient becomes bradycardic and/or CT Head shows bleed) - Maintain bed elevation at 30 degrees - CV: - Rule out ACS: serial trops Q8 negative x3 - ECHO obtained, pending results - Tachycardia - Allow for permissive HTN for 24 hours Pulm: Acute Respiratory Failure - on mechanical ventilation: decreased PEEP to 3 - Continue to titrate FiO2 to keep SpO2 > 92 - Continue bronchodilators - Monitor - CT chest abdomen pelvis without contrast official report: * Minimal bilateral pleural effusions * No fracture * No pneumothorax * multifocal infiltrates at the bilateral upper and lower lobes as well as the right middle lobe in a pattern that could reflect aspiration given dependent subsegment affected Renal: Acute Renal Failure, improving - Consistent with ATN 2/2 ischemic vs septic - Continue IVF - Java Scala Developer consulted, recommendations appreciated * Agrees to keep Na on higher side for cerebral edema management - Good urine out put - No need for dialysis at this time Metabolic Acidosis - Likely 2/2 elevated lactic acid and/or DKA and/or ETOH consumption - Glycemic control - Continue to trend lactic acid - Monitor - Continue Thiamine 100 mg IV daily GI: - No acute issues - NG tube - Pepcid for Ppx - CT chest abdomen pelvis without contrast official report: * Findings suspicious for segmental colitis involving separate vascular distribution of the colon. Limited abdominal and pelvic ascites noted. No free intra peritoneal gas collection appreciable Endo: Likely history of Diabetes Mellitus Type 2: uncontrolled - ISS: moderate - Hypoglycemic protocol - Accu checks Q6 - NPO diet - IVF - TSH - HgbA1c ID: Sepsis: suspect aspiration pneumonia - Vanco - Zosyn - Sommers culture - Serial Lactic Acid Patient seen and case discussed in detail with Dr. Oc Plasencia PGY1 <Shira Renae - Last Filed: 05/10/18 13:51> CCU Objective - Vital Signs / Intake & Output Vital Signs (Last 4 hours): Vital Signs Pulse Resp BP Pulse Ox 05/10/18 11:15 66 18 100 05/10/18 11:03 65 18 136/71 100 05/10/18 11:00 150 H 19 100 05/10/18 10:45 69 22 99 05/10/18 10:30 78 23 100 05/10/18 10:15 67 18 100 05/10/18 10:03 85 20 106/54 L 100 05/10/18 10:00 89 23 100 Intake and Output (Last 8hrs): Intake & Output 11/10/2105/10/18 05/10/18 22:59 06:59 14:59 Intake Total 1550 1075 875 Output Total 910 540 400 Balance 640 535 475 Weight 154 lb 15.759 oz Intake: Intake, IV Amount 900 725 575 Right PICC 600 725 200 Right Proximal Port PICC 300 375 Tube Feeding 400 100 200 Other 250 250 100 Output: Urine 910 540 400 Urethral (Alvarado) 910 540 400 Oral Regurgitation 0 Other: # Bowel Movements 0 - Medications Active Medications: Active Medications Generic Name Dose Route Start Last Admin Trade Name Freq PRN Reason Stop Dose Admin Albuterol/Ipratropium 3 ml 05/02/18 04:00 05/10/18 07:35 Duoneb 3 Mg/0.5 Mg (3 Ml) Ud INH 3 ml RQ4 BETH Administration Amlodipine Besylate 10 mg 05/07/18 10:00 05/10/18 09:45 Norvasc PO 10 mg DAILY BETH Administration Aspirin 81 mg 05/02/18 10:00 05/10/18 09:45 Ecotrin PO 81 mg DAILY BETH Administration Bisacodyl 10 mg 05/07/18 08:19 05/10/18 09:45 Dulcolax ID 10 mg TID PRN Administration Constipation Dextrose 0 ml 05/03/18 12:05 Dextrose 50% Inj IV STAT PRN Hypoglycemia Protocol Protocol Dextrose 15 gm 05/03/18 12:05 Glutose 15 PO ONCE PRN Hypoglycemia Protocol Protocol Glucagon 1 mg 05/03/18 12:05 Glucagen Diagnostic Kit IM STAT PRN Hypoglycemia Protocol Protocol Heparin Sodium (Porcine) 5,000 units 05/03/18 14:00 05/10/18 05:22 Heparin SC 5,000 units Q8 BETH Administration Levetiracetam 1,000 mg/ Sodium 110 mls @ 420 mls/hr 05/02/18 11:30 05/10/18 10:46 Chloride IVPB 420 mls/hr Q12H BETH Administration Meropenem 1 gm/ Sodium 100 mls @ 100 mls/hr 05/02/18 18:30 05/10/18 10:44 Chloride IVPB 100 mls/hr Q8H BETH Administration Protocol Dextrose 1,000 mls @ 0 mls/hr 05/05/18 13:57 Dextrose 5% In Water 1000 Ml IV .Q0M PRN Hypoglycemia Protocol Protocol Per Protocol Metronidazole 500 mg in 100 mls @ 100 mls/hr 05/06/18 10:00 05/10/18 10:01 Flagyl IVPB 100 mls/hr Q8H BETH Administration Protocol Ibuprofen 200 mg 05/05/18 17:37 05/05/18 20:00 Motrin Oral Susp PO 200 mg Q6H PRN Administration Fever >100.4 F Insulin Aspart 0 unit 05/03/18 18:00 05/10/18 11:36 Novolog SC 4 units Q6 BETH Administration Protocol Insulin Glargine 10 unit 05/06/18 10:00 05/10/18 09:45 Lantus SC 10 u DAILY BETH Administration Labetalol HCl 10 mg 05/06/18 17:31 05/09/18 16:42 Trandate IVP 10 mg Q4H PRN Administration Systolic Blood Pressure Lactobacillus Acidophilus 1 cap 05/07/18 10:00 05/10/18 09:44 Bacid Acidophilus PO 1 cap BID BETH Administration Lactulose 20 gm 05/09/18 08:55 05/10/18 09:45 Enulose PO 20 gm DAILY PRN Administration Constipation Lorazepam 1 mg 05/07/18 21:18 05/09/18 00:32 Ativan IVP 1 mg Q4 PRN Administration Restlessness Metoprolol Tartrate 75 mg 05/06/18 18:04 05/10/18 09:44 Lopressor PO 75 mg BID BETH Administration Pantoprazole Sodium 40 mg 05/06/18 10:00 05/10/18 09:46 Protonix Susp NG 40 mg DAILY BETH Administration Rosuvastatin Calcium 5 mg 05/03/18 22:00 05/09/18 21:22 Crestor PO 5 mg HS BETH Administration Senna/Docusate Sodium 1 tab 05/07/18 18:00 05/10/18 09:45 Senokot S 50 Mg-8.6 Mg PO 1 tab BID BETH Administration Thiamine HCl 100 mg 05/03/18 10:45 05/10/18 09:43 Vitamin B1 Inj IV 100 mg DAILY BETH Administration - Patient Studies Lab Studies: Microbiology Studies 05/08/18 18:39 Gram Stain - Final Trachasp Sputum Culture - Final Yeast Species Lab Studies 05/10/18 05/10/18 05/10/18 Range/Units 06:27 06:27 06:10 WBC 11.9 H (4.8-10.8) K/uL RBC 3.73 L (3.80-5.20) Mil/uL Hgb 9.8 L (11.0-16.0) g/dL Hct 29.9 L (34.0-47.0) % MCV 80.2 L (81.0-99.0) fL MCH 26.2 L (27.0-31.0) pg MCHC 32.7 L (33.0-37.0) g/dL RDW 15.7 H (11.5-14.5) % Plt Count 179 (130-400) K/uL MPV 13.2 H (7.2-11.7) fL Neut % (Auto) 76.1 H (50.0-75.0) % Lymph % (Auto) 13.5 L (20.0-40.0) % [place] % (Auto) 6.9 (0.0-10.0) % Eos % (Auto) 2.4 (0.0-4.0) % Baso % (Auto) 1.1 (0.0-2.0) % Neut # (Auto) 9.0 H (1.8-7.0) K/uL Lymph # (Auto) 1.6 (1.0-4.3) K/uL [place] # (Auto) 0.8 (0.0-0.8) K/uL Eos # (Auto) 0.3 (0.0-0.7) K/uL Baso # (Auto) 0.1 (0.0-0.2) K/uL Puncture Site Rradial pCO2 35 (35-45) mm/Hg pO2 154 H (80-100) mm/Hg HCO3 25.9 (21-28) mmol/L ABG pH 7.46 H (7.35-7.45) ABG Total CO2 26.0 (22-28) mmol/L ABG O2 Saturation 99.3 H (95-98) % ABG Base Excess 1.3 (-2.0-3.0) mmol/L ABG Hemoglobin 10.6 L (11.7-17.4) g/dL ABG Carboxyhemoglobin 1.3 (0.5-1.5) % POC ABG HHb (Measured) 0.7 (0.0-5.0) % ABG Methemoglobin 1.4 (0.0-3.0) % Erik Test Pos A-a O2 Difference 87.0 mm/Hg Respiratory Index 0.6 Hgb O2 Saturation 96.5 (95.0-98.0) % Vent Mode Simv/pc Mechanical Rate 18 FiO2 40.0 % PEEP 5 Sodium 144 (132-148) mmol/L Potassium 3.6 (3.6-5.2) mmol/L Chloride 113 H (98-107) mmol/L Carbon Dioxide 26 (22-30) mmol/L Anion Gap 8 L (10-20) BUN 17 (7-17) mg/dL Creatinine 0.8 (0.7-1.2) mg/dL Est GFR ( Amer) > 60 Est GFR (Non-Af Amer) > 60 POC Glucose (mg/dL) (65-110) mg/dL Random Glucose 216 H (65-105) mg/dL Calcium 7.8 L (8.6-10.4) mg/dl Phosphorus 2.6 (2.5-4.5) mg/dL Magnesium 2.2 (1.6-2.3) mg/dL Total Bilirubin 0.4 (0.2-1.3) mg/dL AST 57 H (14-36) U/L ALT 61 H (9-52) U/L Alkaline Phosphatase 219 H (38-126) U/L Total Protein 5.2 L (6.3-8.3) g/dL Albumin 2.4 L (3.5-5.0) g/dL Globulin 2.9 (2.2-3.9) gm/dL Albumin/Globulin Ratio 0.8 L (1.0-2.1) 05/10/18 05/09/18 05/09/18 Range/Units 05:52 23:47 18:18 WBC (4.8-10.8) K/uL RBC (3.80-5.20) Mil/uL Hgb (11.0-16.0) g/dL Hct (34.0-47.0) % MCV (81.0-99.0) fL MCH (27.0-31.0) pg MCHC (33.0-37.0) g/dL RDW (11.5-14.5) % Plt Count (130-400) K/uL MPV (7.2-11.7) fL Neut % (Auto) (50.0-75.0) % Lymph % (Auto) (20.0-40.0) % [place] % (Auto) (0.0-10.0) % Eos % (Auto) (0.0-4.0) % Baso % (Auto) (0.0-2.0) % Neut # (Auto) (1.8-7.0) K/uL Lymph # (Auto) (1.0-4.3) K/uL [place] # (Auto) (0.0-0.8) K/uL Eos # (Auto) (0.0-0.7) K/uL Baso # (Auto) (0.0-0.2) K/uL Puncture Site pCO2 (35-45) mm/Hg pO2 (80-100) mm/Hg HCO3 (21-28) mmol/L ABG pH (7.35-7.45) ABG Total CO2 (22-28) mmol/L ABG O2 Saturation (95-98) % ABG Base Excess (-2.0-3.0) mmol/L ABG Hemoglobin (11.7-17.4) g/dL ABG Carboxyhemoglobin (0.5-1.5) % POC ABG HHb (Measured) (0.0-5.0) % ABG Methemoglobin (0.0-3.0) % Erik Test A-a O2 Difference mm/Hg Respiratory Index Hgb O2 Saturation (95.0-98.0) % Vent Mode Mechanical Rate FiO2 % PEEP Sodium (132-148) mmol/L Potassium (3.6-5.2) mmol/L Chloride (98-107) mmol/L Carbon Dioxide (22-30) mmol/L Anion Gap (10-20) BUN (7-17) mg/dL Creatinine (0.7-1.2) mg/dL Est GFR ( Amer) Est GFR (Non-Af Amer) POC Glucose (mg/dL) 225 H 201 H 266 H (65-110) mg/dL Random Glucose (65-105) mg/dL Calcium (8.6-10.4) mg/dl Phosphorus (2.5-4.5) mg/dL Magnesium (1.6-2.3) mg/dL Total Bilirubin (0.2-1.3) mg/dL AST (14-36) U/L ALT (9-52) U/L Alkaline Phosphatase (38-126) U/L Total Protein (6.3-8.3) g/dL Albumin (3.5-5.0) g/dL Globulin (2.2-3.9) gm/dL Albumin/Globulin Ratio (1.0-2.1) 05/09/18 Range/Units 12:06 WBC (4.8-10.8) K/uL RBC (3.80-5.20) Mil/uL Hgb (11.0-16.0) g/dL Hct (34.0-47.0) % MCV (81.0-99.0) fL MCH (27.0-31.0) pg MCHC (33.0-37.0) g/dL RDW (11.5-14.5) % Plt Count (130-400) K/uL MPV (7.2-11.7) fL Neut % (Auto) (50.0-75.0) % Lymph % (Auto) (20.0-40.0) % [place] % (Auto) (0.0-10.0) % Eos % (Auto) (0.0-4.0) % Baso % (Auto) (0.0-2.0) % Neut # (Auto) (1.8-7.0) K/uL Lymph # (Auto) (1.0-4.3) K/uL [place] # (Auto) (0.0-0.8) K/uL Eos # (Auto) (0.0-0.7) K/uL Baso # (Auto) (0.0-0.2) K/uL Puncture Site pCO2 (35-45) mm/Hg pO2 (80-100) mm/Hg HCO3 (21-28) mmol/L ABG pH (7.35-7.45) ABG Total CO2 (22-28) mmol/L ABG O2 Saturation (95-98) % ABG Base Excess (-2.0-3.0) mmol/L ABG Hemoglobin (11.7-17.4) g/dL ABG Carboxyhemoglobin (0.5-1.5) % POC ABG HHb (Measured) (0.0-5.0) % ABG Methemoglobin (0.0-3.0) % Erik Test A-a O2 Difference mm/Hg Respiratory Index Hgb O2 Saturation (95.0-98.0) % Vent Mode Mechanical Rate FiO2 % PEEP Sodium (132-148) mmol/L Potassium (3.6-5.2) mmol/L Chloride (98-107) mmol/L Carbon Dioxide (22-30) mmol/L Anion Gap (10-20) BUN (7-17) mg/dL Creatinine (0.7-1.2) mg/dL Est GFR ( Amer) Est GFR (Non-Af Amer) POC Glucose (mg/dL) 225 H (65-110) mg/dL Random Glucose (65-105) mg/dL Calcium (8.6-10.4) mg/dl Phosphorus (2.5-4.5) mg/dL Magnesium (1.6-2.3) mg/dL Total Bilirubin (0.2-1.3) mg/dL AST (14-36) U/L ALT (9-52) U/L Alkaline Phosphatase (38-126) U/L Total Protein (6.3-8.3) g/dL Albumin (3.5-5.0) g/dL Globulin (2.2-3.9) gm/dL Albumin/Globulin Ratio (1.0-2.1) Laboratory Results - last 24 hr 05/09/18 05/09/18 05/09/18 12:06 18:18 23:47 WBC RBC Hgb Hct MCV MCH MCHC RDW Plt Count MPV Neut % (Auto) Lymph % (Auto) [place] % (Auto) Eos % (Auto) Baso % (Auto) Neut # (Auto) Lymph # (Auto) [place] # (Auto) Eos # (Auto) Baso # (Auto) Puncture Site pCO2 pO2 HCO3 ABG pH ABG Total CO2 ABG O2 Saturation ABG Base Excess ABG Hemoglobin ABG Carboxyhemoglobin POC ABG HHb (Measured) ABG Methemoglobin Erik Test A-a O2 Difference Respiratory Index Hgb O2 Saturation Vent Mode Mechanical Rate FiO2 PEEP Sodium Potassium Chloride Carbon Dioxide Anion Gap BUN Creatinine Est GFR ( Amer) Est GFR (Non-Af Amer) POC Glucose (mg/dL) 225 H 266 H 201 H Random Glucose Calcium Phosphorus Magnesium Total Bilirubin AST ALT Alkaline Phosphatase Total Protein Albumin Globulin Albumin/Globulin Ratio 05/10/18 05/10/18 05/10/18 05:52 06:10 06:27 WBC 11.9 H RBC 3.73 L Hgb 9.8 L Hct 29.9 L MCV 80.2 L MCH 26.2 L MCHC 32.7 L RDW 15.7 H Plt Count 179 MPV 13.2 H Neut % (Auto) 76.1 H Lymph % (Auto) 13.5 L [place] % (Auto) 6.9 Eos % (Auto) 2.4 Baso % (Auto) 1.1 Neut # (Auto) 9.0 H Lymph # (Auto) 1.6 [place] # (Auto) 0.8 Eos # (Auto) 0.3 Baso # (Auto) 0.1 Puncture Site Rradial pCO2 35 pO2 154 H HCO3 25.9 ABG pH 7.46 H ABG Total CO2 26.0 ABG O2 Saturation 99.3 H ABG Base Excess 1.3 ABG Hemoglobin 10.6 L ABG Carboxyhemoglobin 1.3 POC ABG HHb (Measured) 0.7 ABG Methemoglobin 1.4 Erik Test Pos A-a O2 Difference 87.0 Respiratory Index 0.6 Hgb O2 Saturation 96.5 Vent Mode Simv/pc Mechanical Rate 18 FiO2 40.0 PEEP 5 Sodium Potassium Chloride Carbon Dioxide Anion Gap BUN Creatinine Est GFR ( Amer) Est GFR (Non-Af Amer) POC Glucose (mg/dL) 225 H Random Glucose Calcium Phosphorus Magnesium Total Bilirubin AST ALT Alkaline Phosphatase Total Protein Albumin Globulin Albumin/Globulin Ratio 05/10/18 06:27 WBC RBC Hgb Hct MCV MCH MCHC RDW Plt Count MPV Neut % (Auto) Lymph % (Auto) [place] % (Auto) Eos % (Auto) Baso % (Auto) Neut # (Auto) Lymph # (Auto) [place] # (Auto) Eos # (Auto) Baso # (Auto) Puncture Site pCO2 pO2 HCO3 ABG pH ABG Total CO2 ABG O2 Saturation ABG Base Excess ABG Hemoglobin ABG Carboxyhemoglobin POC ABG HHb (Measured) ABG Methemoglobin Erik Test A-a O2 Difference Respiratory Index Hgb O2 Saturation Vent Mode Mechanical Rate FiO2 PEEP Sodium 144 Potassium 3.6 Chloride 113 H Carbon Dioxide 26 Anion Gap 8 L BUN 17 Creatinine 0.8 Est GFR ( Amer) > 60 Est GFR (Non-Af Amer) > 60 POC Glucose (mg/dL) Random Glucose 216 H Calcium 7.8 L Phosphorus 2.6 Magnesium 2.2 Total Bilirubin 0.4 AST 57 H ALT 61 H Alkaline Phosphatase 219 H Total Protein 5.2 L Albumin 2.4 L Globulin 2.9 Albumin/Globulin Ratio 0.8 L Assessment/Plan - Assessment and Plan (Free Text) Assessment: The patient is currently on ventilator. Very poorly responding. Seen by neurologist. I agree with the current assessment and recommendation by the resident. Rounds were made, patient was examined mild radiological and the blood investigation reviewed.
--- NOTE | 2018-05-03 14:36 | CP.PCM.PN ---
Subjective - Date & Time of Evaluation Date of Evaluation: 05/03/18 Time of Evaluation: 14:33 - Subjective Subjective: RENAL FOLLOW UP HPI: 52 year F w/ unknown medical hx that was reportedly found unresponsive. EMS was activated she was intubated and brought to ER. She was found to be hypertensive and code stroke was called. SHe was subsequently admitted to ICU for further evaluation. She is found to have DILLON, anoxic brain injury? , acidosis and DKA. No family was available for hx at the time of evaluation and all hx is from chart. ROS: un able to obtain pt intubated and comatose Surgical hx: No known surgeries Medical hx: No known prior medical history Allergies: NKDA Social: EtOH use unknown if any ivdu Family Hx: No known family hx Medications: No home meds pe: vs as below gen: intubated and comatose sclear: anicteric op: ET tube neck: supple cv: +s1+s2 no rub lungs: reduced at bases, + mechanical bs abd: soft, no organomegaly ext: no edema neuro: intubated not responsive psych: no responsive labs and imaging reviewed imp: ARF/Acidosis/ Sepsis/ ?Anoxic injury/ Sepsis/ Pneumonia/ alcoholic ketoacidosis/cerebral edema plan: ARF: IMPROVING seems to be consistent ATN - ischemic v septic. Agree w/ continue IVF for treatment of sepsis. good UOP. no acute need for dialysis Acidosis 2/2 to elevated lactic acid + dka +alcoholism. glycemic control. Continue to trend lactic acid. monitor closely. added thiamine 100 mg IV daily agree to keep Na on higher side for cerbral edema managament. Abx per primary team Pall are, neurology following d/w ICU team Objective - Vital Signs/Intake and Output Vital Signs (last 24 hours): Temp Pulse Resp BP Pulse Ox 98.7 F 97 H 24 99/59 L 99 05/03/18 12:00 05/03/18 13:14 05/03/18 13:14 05/03/18 13:14 05/03/18 13:14 Intake and Output: 05/03/18 05/03/18 06:59 18:59 Intake Total 924.9 459.5 Output Total 345 320 Balance 579.9 139.5 - Medications Medications: Current Medications Albuterol/Ipratropium (Duoneb 3 Mg/0.5 Mg (3 Ml) Ud) 3 ml INH RQ4 [facility] Last Admin: 05/03/18 07:45 Dose: 3 ml Aspirin (Ecotrin) 81 mg PO DAILY [facility] Last Admin: 05/03/18 10:19 Dose: 81 mg Dextrose (Dextrose 50% Inj) 0 ml IV STAT PRN; Protocol PRN Reason: Hypoglycemia Protocol Dextrose (Glutose 15) 15 gm PO ONCE PRN; Protocol PRN Reason: Hypoglycemia Protocol Glucagon (Glucagen Diagnostic Kit) 1 mg IM STAT PRN; Protocol PRN Reason: Hypoglycemia Protocol Heparin Sodium (Porcine) (Heparin) 5,000 units SC Q8 [facility] Last Admin: 05/03/18 13:07 Dose: 5,000 units Midazolam HCl 100 mg/ Dextrose 100 mls @ 1.48 mls/hr IV .Q24H PRN; Protocol PRN Reason: Sedation Last Titration: 05/03/18 08:20 Dose: 0 mg/kg/hr, 0 mls/hr Doxycycline Hyclate 100 mg/ (Sodium Chloride) 100 mls @ 100 mls/hr IVPB Q12H [facility]; Protocol Last Admin: 05/03/18 03:11 Dose: 100 mls/hr Levetiracetam 1,000 mg/ Sodium (Chloride) 110 mls @ 420 mls/hr IVPB Q12H [facility] Last Admin: 05/03/18 11:32 Dose: 420 mls/hr Lactated Ringer's (Lactated Ringer's) 1,000 mls @ 50 mls/hr IV .Q20H [facility] Last Admin: 05/03/18 01:44 Dose: 50 mls/hr Insulin Human Regular 100 unit (/ Sodium Chloride) 100 mls @ 2 mls/hr IV .Q24H [facility]; Protocol Last Admin: 05/03/18 11:01 Dose: Not Given Vancomycin HCl 1,000 mg/ (Sodium Chloride) 200 mls @ 133.333 mls/hr IVPB Q12H [facility]; Protocol Last Admin: 05/03/18 06:11 Dose: 133.333 mls/hr Meropenem 1 gm/ Sodium (Chloride) 100 mls @ 100 mls/hr IVPB Q8H [facility]; Protocol Last Admin: 05/03/18 10:21 Dose: 100 mls/hr Dextrose (Dextrose 5% In Water 1000 Ml) 1,000 mls @ 0 mls/hr IV .Q0M PRN; Protocol PRN Reason: Hypoglycemia Protocol Influenza Virus Vaccine (Fluzone Quad [id number]) 60 mcg IM .ONCE ONE Stop: 05/04/18 10:01 Insulin Aspart (Novolog) 0 unit SC Q6 [facility]; Protocol Pantoprazole Sodium (Protonix Inj) 40 mg IVP DAILY [facility] Last Admin: 05/03/18 10:22 Dose: 40 mg Pneumococcal Polyvalent Vaccine (Pneumovax 23 Vaccine) 0.5 ml IM .ONCE ONE Stop: 05/04/18 18:01 Sodium Bicarbonate (Sodium Bicarbonate Tab) 650 mg PO Q6 [facility] Last Admin: 05/03/18 11:33 Dose: 650 mg Thiamine HCl (Vitamin B1 Inj) 100 mg IV DAILY [facility] Last Admin: 05/03/18 11:33 Dose: 100 mg - Labs Labs: 05/03/18 05:56 05/03/18 05:56 PT 12.6 SECONDS (9.7-12.2) H 05/02/18 13:23 INR 1.2 05/02/18 13:23 APTT 128 SECONDS (21-34) H* D 05/02/18 20:39
[2018-05-03 14:54] LABS: ARTERIAL BLOOD GAS HCO3 24.3 mmol/L (21-28); ARTERIAL BLOOD GAS PCO2 24 mm/Hg (35-45); ARTERIAL BLOOD GAS PH 7.53 (7.35-7.45); ARTERIAL BLOOD GAS PO2 148 mm/Hg (80-100); ARTERIAL BLOOD GAS TCO2 20.8 mmol/L (22-28)
[2018-05-03 15:10] LABS: BASO # 0.1 K/uL (0.0-0.2); BASO % 0.2 % (0.0-2.0); EOS % 0.1 % (0.0-4.0); LYMPH # 1.1 K/uL (1.0-4.3); LYMPH % 4.1 % (20.0-40.0); MEAN CELL VOLUME 78.5 fL (81.0-99.0); MEAN CORPUSCULAR HEMOGLOBIN 26.4 pg (27.0-31.0); MEAN CORPUSCULAR HGB CONC 33.6 g/dL (33.0-37.0); MONO # 1.1 K/uL (0.0-0.8); NEUT # 24.4 K/uL (1.8-7.0); NEUT % 91.6 % (50.0-75.0); NRBC % 0.1 % (0.0-2.0); PLATELET COUNT 183 K/uL (130-400); RBC 4.55 Mil/uL (3.80-5.20); RED CELL DISTRIBUTION WIDTH 15.8 % (11.5-14.5); WHITE BLOOD COUNT 26.7 K/uL (4.8-10.8)
[2018-05-03 15:25] LABS: ALBUMIN 2.6 g/dL (3.5-5.0); CALCIUM 8.1 mg/dl (8.6-10.4)
[2018-05-03 15:48] LABS: BANDS 23 % (0-2); LYMPHOCYTE 1 % (20-40); MONOCYTE 10 % (0-10); NEUTROPHIL 66 % (50-75); TOTAL CELLS COUNTED 100
[2018-05-03 15:49] LABS: ANISOCYTOSIS SLIGHT; PLATELET ESTIMATE NORMAL (NORMAL)
--- NOTE | 2018-05-03 16:18 | CP.PCM.PN ---
Subjective - Date & Time of Evaluation Date of Evaluation: 05/03/18 Time of Evaluation: 16:16 - Subjective Subjective: Neurology Progress Note: Mrs. Hodge was seen and examined today in the ICU. There were no acute events overnight reported. EEG showed diffuse encephalopathy with burst suppression. Objective - Vital Signs/Intake and Output Vital Signs (last 24 hours): Temp Pulse Resp BP Pulse Ox 98.7 F 98 H 24 113/61 100 05/03/18 12:00 05/03/18 15:14 05/03/18 15:14 05/03/18 15:14 05/03/18 15:14 Intake and Output: 05/03/18 05/03/18 06:59 18:59 Intake Total 924.9 609.5 Output Total 345 320 Balance 579.9 289.5 - Medications Medications: Current Medications Albuterol/Ipratropium (Duoneb 3 Mg/0.5 Mg (3 Ml) Ud) 3 ml INH RQ4 [facility] Last Admin: 05/03/18 16:15 Dose: 3 ml Aspirin (Ecotrin) 81 mg PO DAILY [facility] Last Admin: 05/03/18 10:19 Dose: 81 mg Dextrose (Dextrose 50% Inj) 0 ml IV STAT PRN; Protocol PRN Reason: Hypoglycemia Protocol Dextrose (Glutose 15) 15 gm PO ONCE PRN; Protocol PRN Reason: Hypoglycemia Protocol Glucagon (Glucagen Diagnostic Kit) 1 mg IM STAT PRN; Protocol PRN Reason: Hypoglycemia Protocol Heparin Sodium (Porcine) (Heparin) 5,000 units SC Q8 [facility] Last Admin: 05/03/18 13:07 Dose: 5,000 units Midazolam HCl 100 mg/ Dextrose 100 mls @ 1.48 mls/hr IV .Q24H PRN; Protocol PRN Reason: Sedation Last Titration: 05/03/18 08:20 Dose: 0 mg/kg/hr, 0 mls/hr Doxycycline Hyclate 100 mg/ (Sodium Chloride) 100 mls @ 100 mls/hr IVPB Q12H [facility]; Protocol Last Admin: 05/03/18 15:45 Dose: 100 mls/hr Levetiracetam 1,000 mg/ Sodium (Chloride) 110 mls @ 420 mls/hr IVPB Q12H [facility] Last Admin: 05/03/18 11:32 Dose: 420 mls/hr Lactated Ringer's (Lactated Ringer's) 1,000 mls @ 50 mls/hr IV .Q20H [facility] Last Admin: 05/03/18 01:44 Dose: 50 mls/hr Insulin Human Regular 100 unit (/ Sodium Chloride) 100 mls @ 2 mls/hr IV .Q24H [facility]; Protocol Last Admin: 05/03/18 11:01 Dose: Not Given Vancomycin HCl 1,000 mg/ (Sodium Chloride) 200 mls @ 133.333 mls/hr IVPB Q12H [facility]; Protocol Last Admin: 05/03/18 06:11 Dose: 133.333 mls/hr Meropenem 1 gm/ Sodium (Chloride) 100 mls @ 100 mls/hr IVPB Q8H [facility]; Protocol Last Admin: 05/03/18 10:21 Dose: 100 mls/hr Dextrose (Dextrose 5% In Water 1000 Ml) 1,000 mls @ 0 mls/hr IV .Q0M PRN; Protocol PRN Reason: Hypoglycemia Protocol Influenza Virus Vaccine (Fluzone Quad [id number]) 60 mcg IM .ONCE ONE Stop: 05/04/18 10:01 Insulin Aspart (Novolog) 0 unit SC Q6 [facility]; Protocol Pantoprazole Sodium (Protonix Inj) 40 mg IVP DAILY [facility] Last Admin: 05/03/18 10:22 Dose: 40 mg Pneumococcal Polyvalent Vaccine (Pneumovax 23 Vaccine) 0.5 ml IM .ONCE ONE Stop: 05/04/18 18:01 Sodium Bicarbonate (Sodium Bicarbonate Tab) 650 mg PO Q6 [facility] Last Admin: 05/03/18 11:33 Dose: 650 mg Thiamine HCl (Vitamin B1 Inj) 100 mg IV DAILY [facility] Last Admin: 05/03/18 11:33 Dose: 100 mg - Labs Labs: 05/03/18 15:02 05/03/18 15:02 PT 12.6 SECONDS (9.7-12.2) H 05/02/18 13:23 INR 1.2 05/02/18 13:23 APTT 128 SECONDS (21-34) H* D 05/02/18 20:39 - Neurological Exam Additional comments: Intubated, off sedation, pupillary response noted bilaterally, corneal response present, withdraws to pain and grimaces, breathing over vent. GCS= 6T Assessment and Plan (1) Anoxic brain injury Assessment & Plan: Based on exam, imaging and EEG, the patient has a poor prognosis. However, there is some improvement in the exam. I recommend repeating CT head without contrast. Will follow up neurologically. May allow some permissive HTN for now, unless she becomes bradycardic, or CT head shows bleed. Thank you. Status: Acute
--- NOTE | 2018-05-03 17:14 | CT ---
Date of service: 05/03/2018 PROCEDURE: CT HEAD WITHOUT CONTRAST. HISTORY: anoxic brain injury COMPARISON: CT head dated 05/02/2018 TECHNIQUE: Axial computed tomography images were obtained through the head/brain without intravenous contrast. Radiation dose: Total exam DLP = 1318.37 mGy-cm. This CT exam was performed using one or more of the following dose reduction techniques: Automated exposure control, adjustment of the mA and/or kV according to patient size, and/or use of iterative reconstruction technique. FINDINGS: HEMORRHAGE: No intracranial hemorrhage. BRAIN: Similar poor corticomedullary differentiation with scattered edema redemonstrated effacing cortical sulci. VENTRICLES: Unremarkable. No hydrocephalus. CALVARIUM: Unremarkable. PARANASAL SINUSES: Scattered ethmoid air cell opacification. MASTOID AIR CELLS: Unremarkable as visualized. No inflammatory changes. OTHER FINDINGS: None. IMPRESSION: Stable poor cortical medullary differentiation with scattered edematous changes. No significant interval change.
--- NOTE | 2018-05-03 17:21 | CP.PCM.PN ---
Subjective - Date & Time of Evaluation Date of Evaluation: 05/03/18 Time of Evaluation: 16:00 - Subjective Subjective: Seen and examined by me. patient is responding to deep pain. Able to withdraw both legs and left arm for pain. Not right arm Has gag reflex,pupils react to light today Discussed with Dr Duff at bedside .Recommend to repeat CT head and allow permissive hypertension for possible stroke Objective - Vital Signs/Intake and Output Vital Signs (last 24 hours): Temp Pulse Resp BP Pulse Ox 98.7 F 98 H 24 113/61 100 05/03/18 12:00 05/03/18 15:14 05/03/18 15:14 05/03/18 15:14 05/03/18 15:14 Intake and Output: 05/03/18 05/03/18 06:59 18:59 Intake Total 924.9 609.5 Output Total 345 320 Balance 579.9 289.5 - Medications Medications: Current Medications Albuterol/Ipratropium (Duoneb 3 Mg/0.5 Mg (3 Ml) Ud) 3 ml INH RQ4 [facility] Last Admin: 05/03/18 16:15 Dose: 3 ml Aspirin (Ecotrin) 81 mg PO DAILY [facility] Last Admin: 05/03/18 10:19 Dose: 81 mg Dextrose (Dextrose 50% Inj) 0 ml IV STAT PRN; Protocol PRN Reason: Hypoglycemia Protocol Dextrose (Glutose 15) 15 gm PO ONCE PRN; Protocol PRN Reason: Hypoglycemia Protocol Glucagon (Glucagen Diagnostic Kit) 1 mg IM STAT PRN; Protocol PRN Reason: Hypoglycemia Protocol Heparin Sodium (Porcine) (Heparin) 5,000 units SC Q8 [facility] Last Admin: 05/03/18 13:07 Dose: 5,000 units Midazolam HCl 100 mg/ Dextrose 100 mls @ 1.48 mls/hr IV .Q24H PRN; Protocol PRN Reason: Sedation Last Titration: 05/03/18 08:20 Dose: 0 mg/kg/hr, 0 mls/hr Doxycycline Hyclate 100 mg/ (Sodium Chloride) 100 mls @ 100 mls/hr IVPB Q12H [facility]; Protocol Last Admin: 05/03/18 15:45 Dose: 100 mls/hr Levetiracetam 1,000 mg/ Sodium (Chloride) 110 mls @ 420 mls/hr IVPB Q12H [facility] Last Admin: 05/03/18 11:32 Dose: 420 mls/hr Lactated Ringer's (Lactated Ringer's) 1,000 mls @ 50 mls/hr IV .Q20H [facility] Last Admin: 05/03/18 01:44 Dose: 50 mls/hr Insulin Human Regular 100 unit (/ Sodium Chloride) 100 mls @ 2 mls/hr IV .Q24H [facility]; Protocol Last Admin: 05/03/18 11:01 Dose: Not Given Vancomycin HCl 1,000 mg/ (Sodium Chloride) 200 mls @ 133.333 mls/hr IVPB Q12H [facility]; Protocol Last Admin: 05/03/18 06:11 Dose: 133.333 mls/hr Meropenem 1 gm/ Sodium (Chloride) 100 mls @ 100 mls/hr IVPB Q8H [facility]; Protocol Last Admin: 05/03/18 10:21 Dose: 100 mls/hr Dextrose (Dextrose 5% In Water 1000 Ml) 1,000 mls @ 0 mls/hr IV .Q0M PRN; Protocol PRN Reason: Hypoglycemia Protocol Influenza Virus Vaccine (Fluzone Quad [id number]) 60 mcg IM .ONCE ONE Stop: 05/04/18 10:01 Insulin Aspart (Novolog) 0 unit SC Q6 [facility]; Protocol Metoprolol Tartrate (Lopressor) 5 mg IVP DAILY [facility] Pantoprazole Sodium (Protonix Inj) 40 mg IVP DAILY [facility] Last Admin: 05/03/18 10:22 Dose: 40 mg Pneumococcal Polyvalent Vaccine (Pneumovax 23 Vaccine) 0.5 ml IM .ONCE ONE Stop: 05/04/18 18:01 Rosuvastatin Calcium (Crestor) 5 mg PO HS [facility] Sodium Bicarbonate (Sodium Bicarbonate Tab) 650 mg PO Q6 [facility] Last Admin: 05/03/18 11:33 Dose: 650 mg Thiamine HCl (Vitamin B1 Inj) 100 mg IV DAILY [facility] Last Admin: 05/03/18 11:33 Dose: 100 mg - Labs Labs: 05/03/18 15:02 05/03/18 15:02 PT 12.6 SECONDS (9.7-12.2) H 05/02/18 13:23 INR 1.2 05/02/18 13:23 APTT 128 SECONDS (21-34) H* D 05/02/18 20:39 - Constitutional Appears: In Acute Distress - Head Exam Head Exam: NORMAL INSPECTION - ENT Exam ENT Exam: Mucous Membranes Moist - Neck Exam Neck Exam: absent: Full ROM - Respiratory Exam Respiratory Exam: Rales. absent: NORMAL BREATHING PATTERN (vent) - Cardiovascular Exam Cardiovascular Exam: REGULAR RHYTHM - GI/Abdominal Exam GI & Abdominal Exam: Soft, Normal Bowel Sounds - Extremities Exam Extremities Exam: absent: Full ROM (withdraw legs for deep pain) - Back Exam Back Exam: Full ROM - Neurological Exam Neurological Exam: absent: Awake (on vent) - Psychiatric Exam Psychiatric exam: Normal Mood - Skin Skin Exam: Dry Assessment and Plan - Assessment and Plan (Free Text) Assessment: This 52 year old female with known history of Diabetes mellitus brought to the emergency room by EMS after being found unresponsive by her this evening. [place] and was visiting her who lives here in the . Per patient's , patient had been complaining o f headaches for the past two days which had been getting worse, as well as some nausea. The patient was at a libertarian with her and had had a few beers to drink. She was found unresponsive on the ground in the bedroom by her . EMS was called and patient was intubated in the field and brought to [facility]. CODE STROKE was called at ER, patient was subsequently admitted to ICU for close monitoring and evaluation for anoxic brain injury. Patient was noted on physical exam to have rope monge on her neck suggestive of asphyxia (suicidal attempt vs homicidal ). [employer] is involved and state high likelihood of suicidal attempt. Plan: 1.Respiratory failure Asphyxia,s/pacidosis,r/o sepsis suicidal attempt?patient is unresponsive at this time Intubated on MV, managed by critical care team conitnue antibiotics ,possible aspiration pneumonia 2. NSTMI Elevated troponin,EKG asprin ,off heparin drip,metoprolol Dr Gay consulted 3.Leukocytosis,bandemia,high pro mariia ,fever R/O Sepsis Dr Mcgill consulted likely aspiration continue zosyn ,vanco and doxycycline follow cultures chest x ray pneumonia 4. Possible anoxic brain injury neurologist Dr Vanegas consulted EEG showed diffuse encephalopathy with burst suppression. follow repeat CT head-no bleeding palliative consult requested 5.Transaminitis likely shock liver,follow LFT 6. Asphyxia neck abrasion suspicious for strangulation Police was called and investigated by police for possibility of suicide vs homicide 7.Diabetes mellitus HA1c,Finger stick with insulin coverage 8. Prophylaxis DVT -on heparin GI is on protonix
[2018-05-03] MEDS: (Novolog) Insulin Aspart, Recombinant 100 u/ml 10 ml vial SC SCH (17:47)
--- NOTE | 2018-05-03 20:07 | CARD ---
APPROVED REPORT Date of service: 05/03/2018 EXAM: Two-dimensional and M-mode echocardiogram with Doppler and color Doppler. Other Information Quality : TDSRhythm : INDICATION LV Function:Systolic RISK FACTORS Hypertension Diabetes 2D DIMENSIONS IVSd0.9 (0.7-1.1cm)LVDd4.0 (3.9-5.9cm) PWd0.9 (0.7-1.1cm)LA [id number] (18-58mL) LVDs2.8 (2.5-4.0cm)FS (%) 30.0 % LVEF (%)57.7 (>50%)LVEF (Blanchard's)70.74 % M-Mode DIMENSIONS Left Atrium (MM)2.83 (2.5-4.0cm)IVSd0.98 (0.7-1.1cm) Aortic Root3.12 (2.2-3.7cm)LVDd4.63 (4.0-5.6cm) Aortic Cusp Exc.1.86 (1.5-2.0cm)PWd0.96 (0.7-1.1cm) FS (%) 44 %LVDs2.59 (2.0-3.8cm) LVEF (%)75 (>50%) Mitral Valve MV E Ubeeirqj46.6cm/sMV A Xeuidjky95.9cm/sE/A ratio0.7 TDI Lateral E' Peak V9.38cm/sMedial E' Peak V6.48cm/sE/Lateral E'6.7 E/Medial E'9.7 Tricuspid Valve TR Peak [id number]/sTR Peak [id number] LEFT VENTRICLE The left ventricle is normal size. There is normal left ventricular wall thickness. Left ventricle systolic function is normal. The Ejection Fraction is >70%. There is normal LV segmental wall motion. Transmitral Doppler flow pattern is Grade I-abnormal relaxation pattern. There is no ventricular septal defect visualized. RIGHT VENTRICLE The right ventricle is normal size. The right ventricular systolic function is normal. ATRIA The left atrium is mildly dilated. The right atrium size is normal. AORTIC VALVE The aortic valve is mildly sclerotic. The aortic valve is tri-cuspid. No aortic regurgitation is present. There is no aortic valvular stenosis. MITRAL VALVE The mitral valve is normal in structure. There is no evidence of mitral valve prolapse. There is no mitral valve regurgitation noted. TRICUSPID VALVE The tricuspid valve is normal in structure. There is trace tricuspid regurgitation. Right ventricular systolic pressure is estimated at less than 30 mmHg. There is no pulmonary hypertension. PULMONIC VALVE The pulmonic valve is not well visualized. There is trace pulmonic valvular regurgitation. GREAT VESSELS The aortic root is normal in size. The ascending aorta is normal in size. The IVC is normal in size and collapses >50% with inspiration. PERICARDIAL EFFUSION There is no pericardial effusion. <Conclusion> Left ventricle systolic function is normal. The Ejection Fraction is >70%. Transmitral Doppler flow pattern is Grade I-abnormal relaxation pattern.
[2018-05-04] MEDS: (Novolog) Insulin Aspart, Recombinant 100 u/ml 10 ml vial SC SCH ×5 (00:24→23:28)
[2018-05-04] MEDS: Albuterol-Ipratrop 3 mg / 0.5 (3 ml) UD INH SCH ×5 (01:14→20:07)
[2018-05-04] MEDS: Meropenem 1 GM in Sodium Chloride 0.9% 100 ML IVPB SCH ×3 (02:33→19:37)
[2018-05-04 06:19] LABS: ABG ALLEN TEST POS; ARTERIAL BLOOD GAS HCO3 27.2 mmol/L (21-28); ARTERIAL BLOOD GAS O2 SAT 100.3 % (95-98); ARTERIAL BLOOD GAS PCO2 25 mm/Hg (35-45); ARTERIAL BLOOD GAS PH 7.58 (7.35-7.45); ARTERIAL BLOOD GAS PO2 118 mm/Hg (80-100); ARTERIAL BLOOD GAS TCO2 24.2 mmol/L (22-28)
[2018-05-04 06:38] LABS: BASO % 0.2 % (0.0-2.0); HEMOGLOBIN 11.3 g/dL (11.0-16.0); LYMPH # 1.3 K/uL (1.0-4.3); LYMPH % 5.4 % (20.0-40.0); MEAN CELL VOLUME 77.5 fL (81.0-99.0); MEAN CORPUSCULAR HGB CONC 33.5 g/dL (33.0-37.0); MEAN PLATELET VOLUME 11.2 fL (7.2-11.7); MONO % 4.2 % (0.0-10.0); NEUT # 22.3 K/uL (1.8-7.0); NEUT % 90.2 % (50.0-75.0); NRBC % 0.1 % (0.0-2.0); PLATELET COUNT 175 K/uL (130-400); RBC 4.36 Mil/uL (3.80-5.20); RED CELL DISTRIBUTION WIDTH 15.7 % (11.5-14.5); WHITE BLOOD COUNT 24.7 K/uL (4.8-10.8)
[2018-05-04 06:52] LABS: ALBUMIN 2.7 g/dL (3.5-5.0); CALCIUM 8.1 mg/dl (8.6-10.4)
[2018-05-04 08:20] LABS: BANDS 19 % (0-2); LYMPHOCYTE 7 % (20-40); MONOCYTE 2 % (0-10); NEUTROPHIL 72 % (50-75); NUCLEATED RED BLOOD CELL 1 % (0-0); TOTAL CELLS COUNTED 100
[2018-05-04 08:21] LABS: ANISOCYTOSIS SLIGHT; PLATELET ESTIMATE NORMAL (NORMAL); TARGET CELLS SLIGHT
--- NOTE | 2018-05-04 08:45 | CP.PCM.PN ---
Subjective - Date & Time of Evaluation Date of Evaluation: 05/04/18 Time of Evaluation: 07:54 - Subjective Subjective: Lamont Barclay, PGY-[address] Gay Patient seen and evaluated at bedside. No acute events overnight. Patient's sister at bedside. Patient mechanically ventilated. Objective - Vital Signs/Intake and Output Vital Signs (last 24 hours): Temp Pulse Resp BP Pulse Ox 99.4 F 77 24 127/70 99 05/04/18 08:00 05/04/18 08:09 05/04/18 08:09 05/04/18 08:09 05/04/18 08:09 Intake and Output: 05/04/18 05/04/18 06:59 18:59 Intake Total 935 100 Output Total 520 Balance 415 100 - Medications Medications: Current Medications Albuterol/Ipratropium (Duoneb 3 Mg/0.5 Mg (3 Ml) Ud) 3 ml INH RQ4 [facility] Last Admin: 05/04/18 07:10 Dose: 3 ml Aspirin (Ecotrin) 81 mg PO DAILY [facility] Last Admin: 05/03/18 10:19 Dose: 81 mg Dextrose (Dextrose 50% Inj) 0 ml IV STAT PRN; Protocol PRN Reason: Hypoglycemia Protocol Dextrose (Glutose 15) 15 gm PO ONCE PRN; Protocol PRN Reason: Hypoglycemia Protocol Glucagon (Glucagen Diagnostic Kit) 1 mg IM STAT PRN; Protocol PRN Reason: Hypoglycemia Protocol Heparin Sodium (Porcine) (Heparin) 5,000 units SC Q8 [facility] Last Admin: 05/04/18 06:20 Dose: 5,000 units Midazolam HCl 100 mg/ Dextrose 100 mls @ 1.48 mls/hr IV .Q24H PRN; Protocol PRN Reason: Sedation Last Titration: 05/03/18 08:20 Dose: 0 mg/kg/hr, 0 mls/hr Doxycycline Hyclate 100 mg/ (Sodium Chloride) 100 mls @ 100 mls/hr IVPB Q12H [facility]; Protocol Last Admin: 05/04/18 03:54 Dose: 100 mls/hr Levetiracetam 1,000 mg/ Sodium (Chloride) 110 mls @ 420 mls/hr IVPB Q12H [facility] Last Admin: 05/03/18 23:41 Dose: 420 mls/hr Lactated Ringer's (Lactated Ringer's) 1,000 mls @ 50 mls/hr IV .Q20H [facility] Last Admin: 05/03/18 22:00 Dose: Not Given Insulin Human Regular 100 unit (/ Sodium Chloride) 100 mls @ 2 mls/hr IV .Q24H [facility]; Protocol Last Admin: 05/03/18 11:01 Dose: Not Given Vancomycin HCl 1,000 mg/ (Sodium Chloride) 200 mls @ 133.333 mls/hr IVPB Q12H [facility]; Protocol Last Admin: 05/04/18 06:20 Dose: 133.333 mls/hr Meropenem 1 gm/ Sodium (Chloride) 100 mls @ 100 mls/hr IVPB Q8H [facility]; Protocol Last Admin: 05/04/18 02:33 Dose: 100 mls/hr Dextrose (Dextrose 5% In Water 1000 Ml) 1,000 mls @ 0 mls/hr IV .Q0M PRN; Protocol PRN Reason: Hypoglycemia Protocol Influenza Virus Vaccine (Fluzone Quad [id number]) 60 mcg IM .ONCE ONE Stop: 05/04/18 10:01 Insulin Aspart (Novolog) 0 unit SC Q6 [facility]; Protocol Last Admin: 05/04/18 06:20 Dose: 4 units Metoprolol Tartrate (Lopressor) 5 mg IVP DAILY [facility] Pantoprazole Sodium (Protonix Inj) 40 mg IVP DAILY [facility] Last Admin: 05/03/18 10:22 Dose: 40 mg Pneumococcal Polyvalent Vaccine (Pneumovax 23 Vaccine) 0.5 ml IM .ONCE ONE Stop: 05/04/18 18:01 Rosuvastatin Calcium (Crestor) 5 mg PO HS [facility] Last Admin: 05/03/18 21:42 Dose: 5 mg Sodium Bicarbonate (Sodium Bicarbonate Tab) 650 mg PO Q6 [facility] Last Admin: 05/04/18 06:20 Dose: 650 mg Thiamine HCl (Vitamin B1 Inj) 100 mg IV DAILY [facility] Last Admin: 05/03/18 11:33 Dose: 100 mg - Labs Labs: 05/04/18 06:28 05/04/18 06:28 PT 12.6 SECONDS (9.7-12.2) H 05/02/18 13:23 INR 1.2 05/02/18 13:23 APTT 128 SECONDS (21-34) H* D 05/02/18 20:39 - Constitutional Appears: In Acute Distress - Neck Exam Neck Exam: absent: Normal Inspection (Dark purple ring circumferentially around lower neck) - Respiratory Exam Respiratory Exam: Clear to Ausculation Bilateral. absent: Rales, Rhonchi, Wheezes - Cardiovascular Exam Cardiovascular Exam: Tachycardia, RRR, +S1, +S2 - GI/Abdominal Exam GI & Abdominal Exam: Soft. absent: Tenderness - Extremities Exam Extremities Exam: absent: Pedal Edema - Skin Skin Exam: Dry, Intact, Normal Color, Warm Assessment and Plan - Assessment and Plan (Free Text) Assessment: Assessment: 52 F with suspected suicide attempt who presents with anoxic brain injury and NSTEMI NSTEMI - Original EKG did not meet code heart criteria. - 3rd Trop elevated to 5.06 05/02 - Echo report shows normal EF 65-70% with normal systolic function Hypertensive Urgency/Emergency - Permissive HTN per Neuro - CT head showed stable poor cortical medullary differentiation - ASA, Statin, B-bartolo medical therapy - Continue to monitor Patient seen, case reviewed, and plan discussed with Dr. Gay. Future recs per Dr. Gay. Lamont Barclay, PGY-1
--- NOTE | 2018-05-04 09:14 | PCM.EEG ---
Electroencephalogram Report - Electroencephalogram Report Procedure Date: 05/03/18 Medication: meropenen, ASA, Crestor, Midazolam Interpretation: Technical Information: This was a 16-channel EEG, 1-channel EKG routine EEG performed using [employer] equipment. Electrodes were applied using the 10/20 international placement system. EEG Details During the entire study the EEG showed a burst supersession pattern with mid amplitude 8 Hz burst lasting 200 ms, with inter burst periods of relative EEG attenuation.There was was awake EEG architecture, EEG was not reactive. Drowsiness not seen, sleep not seen. Hyperventilation was not performed. Photic stimulation was not performed. Interictal activity; none Focal abnormality; none Impression: Impression: This is an abnormal EEG record that demonstrate the presence of severe non specific diffuse disturbance of cortical activity, this is keeping with a diffuse box matter dysfunction, these findings are not specific.
[2018-05-04] MEDS: Thiamine 100 mg/ml Inj IV SCH (09:42)
[2018-05-04] MEDS: Metoprolol 1 mg/ml Inj IVP SCH (09:43)
[2018-05-04] MEDS ORDERED: Influenza Vaccine 60 MCG/0.5 ML SYR (3 yr & up) IM ONE (10:00)
[2018-05-04] MEDS ORDERED: Sodium Chloride 0.45% 1,000 ML IV SCH (10:15)
--- NOTE | 2018-05-04 10:29 | CP.CCUPN ---
<Marycruz Plasencia - Last Filed: 05/04/18 15:52> CCU Subjective - Physician Review Events Since Last Encounter (Free Text): 05/04/18 13:27 No acute events overnight Subjective (Free Text): 05/04/18 13:27 PGY1 Critical Care Progress Note for Dr. Brennan Patient seen and examined at bedside this morning. No acute events overnight, per nurse. Unable to obtained ROS due to clinical condition. Critical Care Time Spent (in minutes): 35 CCU Objective - Vital Signs / Intake & Output Vital Signs (Last 4 hours): Vital Signs Temp Pulse Resp BP Pulse Ox 05/04/18 10:09 64 14 130/72 100 05/04/18 10:00 64 24 100 05/04/18 09:39 77 24 152/92 H 100 05/04/18 09:30 82 24 99 05/04/18 09:09 75 24 151/86 H 99 05/04/18 09:00 80 24 100 05/04/18 08:39 77 21 148/89 100 05/04/18 08:30 76 24 100 05/04/18 08:09 77 24 127/70 99 05/04/18 08:00 99.4 F 77 24 99 05/04/18 07:39 83 24 153/75 H 99 05/04/18 07:30 78 24 100 05/04/18 07:10 76 24 127/71 97 05/04/18 07:00 81 24 99 05/04/18 06:41 82 24 154/88 H 98 05/04/18 06:30 85 24 99 Intake and Output (Last 8hrs): Intake & Output 05/03/18 05/04/18 05/04/18 22:59 06:59 14:59 Intake Total 456 729 150 Output Total 310 370 100 Balance 146 359 50 Weight 154 lb 5.177 oz Intake: Intake, IV Amount 456 729 150 Left Hand 450 700 150 Right Wrist 6 29 right wrist 0 Output: Urine 310 370 100 Urethral (Alvarado) 310 370 100 Other: # Bowel Movements 0 0 - Physical Exam Pupils: Positive for: PERRL Extroacular Muscles: Negative for: EOMI Conjunctiva: Positive for: Normal Mouth: Positive for: Moist Mucous Membranes Nose (External): Positive for: Atraumatic. Negative for: Lesions Nose (Internal): Positive for: Normal Inspection, No Active Bleeding Neck: Positive for: Trachea Midline, Other (skin changes ( reddish/hyperpigmented) consisent with ligation around neck ). Negative for: Meningeal Signs Cardiovascular: Positive for: Normal S1, S2, Tachycardic Abdomen: Negative for: Distention, Rebound, Guarding Breast/Axillary: Positive for: Other (Bruising in axillae bilaterally ) Lower Extremity: Positive for: Normal Inspection. Negative for: Edema Neurological: Positive for: Other (GCS=6T). Negative for: CN II-XII Intact Skin: Positive for: Warm, Dry, Normal Color Psychiatric: Negative for: Alert, Oriented x 3 - Medications Active Medications: Active Medications Generic Name Dose Route Start Last Admin Trade Name Freq PRN Reason Stop Dose Admin Albuterol/Ipratropium 3 ml 05/02/18 04:00 05/04/18 07:10 Duoneb 3 Mg/0.5 Mg (3 Ml) Ud INH 3 ml RQ4 BETH Administration Aspirin 81 mg 05/02/18 10:00 05/04/18 09:43 Ecotrin PO 81 mg DAILY BETH Administration Dextrose 0 ml 05/03/18 12:05 Dextrose 50% Inj IV STAT PRN Hypoglycemia Protocol Protocol Dextrose 15 gm 05/03/18 12:05 Glutose 15 PO ONCE PRN Hypoglycemia Protocol Protocol Glucagon 1 mg 05/03/18 12:05 Glucagen Diagnostic Kit IM STAT PRN Hypoglycemia Protocol Protocol Heparin Sodium (Porcine) 5,000 units 05/03/18 14:00 05/04/18 06:20 Heparin SC 5,000 units Q8 BETH Administration Midazolam HCl 100 mg/ Dextrose 100 mls @ 1.48 mls/hr 05/02/18 03:26 05/03/18 08:20 IV 0 mg/kg/hr .Q24H PRN 0 mls/hr Sedation Titration Protocol 0.02 MG/KG/HR Doxycycline Hyclate 100 mg/ 100 mls @ 100 mls/hr 05/02/18 04:00 05/04/18 03:54 Sodium Chloride IVPB 100 mls/hr Q12H BETH Administration Protocol Levetiracetam 1,000 mg/ Sodium 110 mls @ 420 mls/hr 05/02/18 11:30 05/03/18 23:41 Chloride IVPB 420 mls/hr Q12H BETH Administration Lactated Ringer's 1,000 mls @ 50 mls/hr 05/02/18 06:00 05/03/18 22:00 Lactated Ringer's IV Not Given .Q20H BETH Insulin Human Regular 100 unit 100 mls @ 2 mls/hr 05/02/18 10:08 05/03/18 11:01 / Sodium Chloride IV Not Given .Q24H BETH Protocol Vancomycin HCl 1,000 mg/ 200 mls @ 133.333 mls/hr 05/02/18 19:00 05/04/18 06:20 Sodium Chloride IVPB 133.333 mls/hr Q12H BETH Administration Protocol Meropenem 1 gm/ Sodium 100 mls @ 100 mls/hr 05/02/18 18:30 05/04/18 09:43 Chloride IVPB 100 mls/hr Q8H BETH Administration Protocol Dextrose 1,000 mls @ 0 mls/hr 05/03/18 12:05 Dextrose 5% In Water 1000 Ml IV .Q0M PRN Hypoglycemia Protocol Protocol Per Protocol Sodium Chloride 1,000 mls @ 100 mls/hr 05/04/18 10:15 Sodium Chloride 0.45% IV .Q10H BETH Insulin Aspart 0 unit 05/03/18 18:00 05/04/18 06:20 Novolog SC 4 units Q6 BETH Administration Protocol Metoprolol Tartrate 5 mg 05/04/18 10:00 05/04/18 09:43 Lopressor IVP 5 mg DAILY BETH Administration Pantoprazole Sodium 40 mg 05/02/18 10:00 05/04/18 09:43 Protonix Inj IVP 40 mg DAILY BETH Administration Pneumococcal Polyvalent Vaccine 0.5 ml 05/04/18 18:00 Pneumovax 23 Vaccine IM 05/04/18 18:01 .ONCE ONE Rosuvastatin Calcium 5 mg 05/03/18 22:00 05/03/18 21:42 Crestor PO 5 mg HS BETH Administration Sodium Bicarbonate 650 mg 05/02/18 06:00 05/04/18 06:20 Sodium Bicarbonate Tab PO 650 mg Q6 BETH Administration Thiamine HCl 100 mg 05/03/18 10:45 05/04/18 09:42 Vitamin B1 Inj IV 100 mg DAILY BETH Administration - Patient Studies Lab Studies: Microbiology Studies 05/02/18 01:08 Blood Culture - Preliminary Blood-Venous NO GROWTH AFTER 48 HOURS 05/02/18 01:07 Blood Culture - Preliminary Blood-Venous NO GROWTH AFTER 48 HOURS 05/02/18 08:15 MRSA Culture (Admit) - Final Naris MRSA NOT DETECTED 05/02/18 00:59 Urine Culture - Final Urine,Catheterized No Growth (<1,000 CFU/ML) Lab Studies 05/04/18 05/04/18 05/04/18 Range/Units 06:28 06:28 06:14 WBC 24.7 H (4.8-10.8) K/uL RBC 4.36 (3.80-5.20) Mil/uL Hgb 11.3 (11.0-16.0) g/dL Hct 33.8 L (34.0-47.0) % MCV 77.5 L (81.0-99.0) fL MCH 26.0 L (27.0-31.0) pg MCHC 33.5 (33.0-37.0) g/dL RDW 15.7 H (11.5-14.5) % Plt Count 175 (130-400) K/uL MPV 11.2 (7.2-11.7) fL Neut % (Auto) 90.2 H (50.0-75.0) % Lymph % (Auto) 5.4 L (20.0-40.0) % Mason % (Auto) 4.2 (0.0-10.0) % Eos % (Auto) 0.0 (0.0-4.0) % Baso % (Auto) 0.2 (0.0-2.0) % Neut # (Auto) 22.3 H (1.8-7.0) K/uL Lymph # (Auto) 1.3 (1.0-4.3) K/uL Mason # (Auto) 1.0 H (0.0-0.8) K/uL Eos # (Auto) 0.0 (0.0-0.7) K/uL Baso # (Auto) 0.0 (0.0-0.2) K/uL Neutrophils % (Manual) 72 (50-75) % Band Neutrophils % 19 H* (0-2) % Lymphocytes % (Manual) 7 L (20-40) % Monocytes % (Manual) 2 (0-10) % Nucleated RBC % 1 H (0-0) % Platelet Estimate Normal (NORMAL) Anisocytosis (manual) Slight Target Cells Slight Puncture Site pCO2 (35-45) mm/Hg pO2 (80-100) mm/Hg HCO3 (21-28) mmol/L ABG pH (7.35-7.45) ABG Total CO2 (22-28) mmol/L ABG O2 Saturation (95-98) % ABG Base Excess (-2.0-3.0) mmol/L Erik Test ABG Potassium (3.6-5.2) mmol/L A-a O2 Difference mm/Hg Respiratory Index Sodium 151 H (132-148) mmol/l Chloride 119 H (98-107) mmol/L Glucose (65-105) mg/dl Lactate (0.7-2.1) mmol/L Vent Mode Mechanical Rate FiO2 % Tidal Volume PEEP Crit Value Called To Crit Value Called By Crit Value Read Back Blood Gas Notified Time Potassium 3.8 (3.6-5.2) mmol/L Carbon Dioxide 22 (22-30) mmol/L Anion Gap 13 (10-20) BUN 34 H (7-17) mg/dL Creatinine 1.4 H (0.7-1.2) mg/dL Est GFR ( Amer) 48 Est GFR (Non-Af Amer) 39 POC Glucose (mg/dL) 298 H (65-110) mg/dL Random Glucose 306 H (65-105) mg/dL Serum Osmolality (272-300) mosm/kg Calcium 8.1 L (8.6-10.4) mg/dl Phosphorus 2.5 (2.5-4.5) mg/dL Magnesium 2.1 (1.6-2.3) mg/dL Total Bilirubin 0.7 (0.2-1.3) mg/dL AST 96 H D (14-36) U/L ALT 209 H D (9-52) U/L Alkaline Phosphatase 109 (38-126) U/L Total Protein 5.4 L (6.3-8.3) g/dL Albumin 2.7 L (3.5-5.0) g/dL Globulin 2.7 (2.2-3.9) gm/dL Albumin/Globulin Ratio 1.0 (1.0-2.1) Arterial Blood Potassium (3.6-5.2) mmol/L 05/04/18 05/04/18 05/03/18 Range/Units 05:55 00:14 17:44 WBC (4.8-10.8) K/uL RBC (3.80-5.20) Mil/uL Hgb (11.0-16.0) g/dL Hct (34.0-47.0) % MCV (81.0-99.0) fL MCH (27.0-31.0) pg MCHC (33.0-37.0) g/dL RDW (11.5-14.5) % Plt Count (130-400) K/uL MPV (7.2-11.7) fL Neut % (Auto) (50.0-75.0) % Lymph % (Auto) (20.0-40.0) % Mason % (Auto) (0.0-10.0) % Eos % (Auto) (0.0-4.0) % Baso % (Auto) (0.0-2.0) % Neut # (Auto) (1.8-7.0) K/uL Lymph # (Auto) (1.0-4.3) K/uL Mason # (Auto) (0.0-0.8) K/uL Eos # (Auto) (0.0-0.7) K/uL Baso # (Auto) (0.0-0.2) K/uL Neutrophils % (Manual) (50-75) % Band Neutrophils % (0-2) % Lymphocytes % (Manual) (20-40) % Monocytes % (Manual) (0-10) % Nucleated RBC % (0-0) % Platelet Estimate (NORMAL) Anisocytosis (manual) Target Cells Puncture Site Rradial pCO2 25 L (35-45) mm/Hg pO2 118 H (80-100) mm/Hg HCO3 27.2 (21-28) mmol/L ABG pH 7.58 H (7.35-7.45) ABG Total CO2 24.2 (22-28) mmol/L ABG O2 Saturation 100.3 H (95-98) % ABG Base Excess 2.8 (-2.0-3.0) mmol/L Erik Test Pos ABG Potassium 3.9 (3.6-5.2) mmol/L A-a O2 Difference 207.0 mm/Hg Respiratory Index 1.8 Sodium 152.0 H (132-148) mmol/l Chloride 123.0 H (98-107) mmol/L Glucose 341 H (65-105) mg/dl Lactate 2.8 H (0.7-2.1) mmol/L Vent Mode Prvc Mechanical Rate 24 FiO2 50.0 % Tidal Volume 500 PEEP 5 Crit Value Called To Crit Value Called By Crit Value Read Back Blood Gas Notified Time Potassium (3.6-5.2) mmol/L Carbon Dioxide (22-30) mmol/L Anion Gap (10-20) BUN (7-17) mg/dL Creatinine (0.7-1.2) mg/dL Est GFR ( Amer) Est GFR (Non-Af Amer) POC Glucose (mg/dL) 347 H 286 H (65-110) mg/dL Random Glucose (65-105) mg/dL Serum Osmolality (272-300) mosm/kg Calcium (8.6-10.4) mg/dl Phosphorus (2.5-4.5) mg/dL Magnesium (1.6-2.3) mg/dL Total Bilirubin (0.2-1.3) mg/dL AST (14-36) U/L ALT (9-52) U/L Alkaline Phosphatase (38-126) U/L Total Protein (6.3-8.3) g/dL Albumin (3.5-5.0) g/dL Globulin (2.2-3.9) gm/dL Albumin/Globulin Ratio (1.0-2.1) Arterial Blood Potassium 3.9 (3.6-5.2) mmol/L 05/03/18 05/03/18 05/03/18 Range/Units 16:02 15:02 15:02 WBC (4.8-10.8) K/uL RBC (3.80-5.20) Mil/uL Hgb (11.0-16.0) g/dL Hct (34.0-47.0) % MCV (81.0-99.0) fL MCH (27.0-31.0) pg MCHC (33.0-37.0) g/dL RDW (11.5-14.5) % Plt Count (130-400) K/uL MPV (7.2-11.7) fL Neut % (Auto) (50.0-75.0) % Lymph % (Auto) (20.0-40.0) % Mason % (Auto) (0.0-10.0) % Eos % (Auto) (0.0-4.0) % Baso % (Auto) (0.0-2.0) % Neut # (Auto) (1.8-7.0) K/uL Lymph # (Auto) (1.0-4.3) K/uL Mason # (Auto) (0.0-0.8) K/uL Eos # (Auto) (0.0-0.7) K/uL Baso # (Auto) (0.0-0.2) K/uL Neutrophils % (Manual) (50-75) % Band Neutrophils % (0-2) % Lymphocytes % (Manual) (20-40) % Monocytes % (Manual) (0-10) % Nucleated RBC % (0-0) % Platelet Estimate (NORMAL) Anisocytosis (manual) Target Cells Puncture Site pCO2 (35-45) mm/Hg pO2 (80-100) mm/Hg HCO3 (21-28) mmol/L ABG pH (7.35-7.45) ABG Total CO2 (22-28) mmol/L ABG O2 Saturation (95-98) % ABG Base Excess (-2.0-3.0) mmol/L Erik Test ABG Potassium (3.6-5.2) mmol/L A-a O2 Difference mm/Hg Respiratory Index Sodium 149 H (132-148) mmol/l Chloride 117 H (98-107) mmol/L Glucose (65-105) mg/dl Lactate (0.7-2.1) mmol/L Vent Mode Mechanical Rate FiO2 % Tidal Volume PEEP Crit Value Called To Crit Value Called By Crit Value Read Back Blood Gas Notified Time Potassium 4.0 (3.6-5.2) mmol/L Carbon Dioxide 22 (22-30) mmol/L Anion Gap 15 (10-20) BUN 25 H (7-17) mg/dL Creatinine 1.2 (0.7-1.2) mg/dL Est GFR ( Amer) 57 Est GFR (Non-Af Amer) 47 POC Glucose (mg/dL) 256 H (65-110) mg/dL Random Glucose 259 H (65-105) mg/dL Serum Osmolality 328 H (272-300) mosm/kg Calcium 8.1 L (8.6-10.4) mg/dl Phosphorus 3.0 (2.5-4.5) mg/dL Magnesium 1.8 (1.6-2.3) mg/dL Total Bilirubin 0.7 (0.2-1.3) mg/dL AST 160 H (14-36) U/L ALT 269 H (9-52) U/L Alkaline Phosphatase 93 (38-126) U/L Total Protein 5.3 L (6.3-8.3) g/dL Albumin 2.6 L (3.5-5.0) g/dL Globulin 2.7 (2.2-3.9) gm/dL Albumin/Globulin Ratio 1.0 (1.0-2.1) Arterial Blood Potassium (3.6-5.2) mmol/L 05/03/18 05/03/18 05/03/18 Range/Units 15:02 14:51 14:01 WBC 26.7 H (4.8-10.8) K/uL RBC 4.55 (3.80-5.20) Mil/uL Hgb 12.0 (11.0-16.0) g/dL Hct 35.7 (34.0-47.0) % MCV 78.5 L (81.0-99.0) fL MCH 26.4 L (27.0-31.0) pg MCHC 33.6 (33.0-37.0) g/dL RDW 15.8 H (11.5-14.5) % Plt Count 183 (130-400) K/uL MPV 11.0 (7.2-11.7) fL Neut % (Auto) 91.6 H (50.0-75.0) % Lymph % (Auto) 4.1 L (20.0-40.0) % Mason % (Auto) 4.0 (0.0-10.0) % Eos % (Auto) 0.1 (0.0-4.0) % Baso % (Auto) 0.2 (0.0-2.0) % Neut # (Auto) 24.4 H (1.8-7.0) K/uL Lymph # (Auto) 1.1 (1.0-4.3) K/uL Mason # (Auto) 1.1 H (0.0-0.8) K/uL Eos # (Auto) 0.0 (0.0-0.7) K/uL Baso # (Auto) 0.1 (0.0-0.2) K/uL Neutrophils % (Manual) 66 (50-75) % Band Neutrophils % 23 H* (0-2) % Lymphocytes % (Manual) 1 L (20-40) % Monocytes % (Manual) 10 (0-10) % Nucleated RBC % (0-0) % Platelet Estimate Normal (NORMAL) Anisocytosis (manual) Slight Target Cells Puncture Site Lb pCO2 24 L (35-45) mm/Hg pO2 148 H (80-100) mm/Hg HCO3 24.3 (21-28) mmol/L ABG pH 7.53 H (7.35-7.45) ABG Total CO2 20.8 L (22-28) mmol/L ABG O2 Saturation 99.0 H (95-98) % ABG Base Excess -0.9 (-2.0-3.0) mmol/L Erik Test Na ABG Potassium 3.7 (3.6-5.2) mmol/L A-a O2 Difference 179.0 mm/Hg Respiratory Index 1.2 Sodium 153.0 H (132-148) mmol/l Chloride 122.0 H (98-107) mmol/L Glucose 278 H (65-105) mg/dl Lactate 2.7 H (0.7-2.1) mmol/L Vent Mode Mechanical Rate 24 FiO2 50.0 % Tidal Volume 500 PEEP 5 Crit Value Called To Dr rasheed Crit Value Called By Stew silverio antisqueak worker Crit Value Read Back Y Blood Gas Notified Time 1454 Potassium (3.6-5.2) mmol/L Carbon Dioxide (22-30) mmol/L Anion Gap (10-20) BUN (7-17) mg/dL Creatinine (0.7-1.2) mg/dL Est GFR ( Amer) Est GFR (Non-Af Amer) POC Glucose (mg/dL) 242 H (65-110) mg/dL Random Glucose (65-105) mg/dL Serum Osmolality (272-300) mosm/kg Calcium (8.6-10.4) mg/dl Phosphorus (2.5-4.5) mg/dL Magnesium (1.6-2.3) mg/dL Total Bilirubin (0.2-1.3) mg/dL AST (14-36) U/L ALT (9-52) U/L Alkaline Phosphatase (38-126) U/L Total Protein (6.3-8.3) g/dL Albumin (3.5-5.0) g/dL Globulin (2.2-3.9) gm/dL Albumin/Globulin Ratio (1.0-2.1) Arterial Blood Potassium 3.7 (3.6-5.2) mmol/L 05/03/18 05/03/18 05/03/18 Range/Units 11:56 11:06 10:04 WBC (4.8-10.8) K/uL RBC (3.80-5.20) Mil/uL Hgb (11.0-16.0) g/dL Hct (34.0-47.0) % MCV (81.0-99.0) fL MCH (27.0-31.0) pg MCHC (33.0-37.0) g/dL RDW (11.5-14.5) % Plt Count (130-400) K/uL MPV (7.2-11.7) fL Neut % (Auto) (50.0-75.0) % Lymph % (Auto) (20.0-40.0) % Mason % (Auto) (0.0-10.0) % Eos % (Auto) (0.0-4.0) % Baso % (Auto) (0.0-2.0) % Neut # (Auto) (1.8-7.0) K/uL Lymph # (Auto) (1.0-4.3) K/uL Mason # (Auto) (0.0-0.8) K/uL Eos # (Auto) (0.0-0.7) K/uL Baso # (Auto) (0.0-0.2) K/uL Neutrophils % (Manual) (50-75) % Band Neutrophils % (0-2) % Lymphocytes % (Manual) (20-40) % Monocytes % (Manual) (0-10) % Nucleated RBC % (0-0) % Platelet Estimate (NORMAL) Anisocytosis (manual) Target Cells Puncture Site pCO2 (35-45) mm/Hg pO2 (80-100) mm/Hg HCO3 (21-28) mmol/L ABG pH (7.35-7.45) ABG Total CO2 (22-28) mmol/L ABG O2 Saturation (95-98) % ABG Base Excess (-2.0-3.0) mmol/L Erik Test ABG Potassium (3.6-5.2) mmol/L A-a O2 Difference mm/Hg Respiratory Index Sodium (132-148) mmol/l Chloride (98-107) mmol/L Glucose (65-105) mg/dl Lactate (0.7-2.1) mmol/L Vent Mode Mechanical Rate FiO2 % Tidal Volume PEEP Crit Value Called To Crit Value Called By Crit Value Read Back Blood Gas Notified Time Potassium (3.6-5.2) mmol/L Carbon Dioxide (22-30) mmol/L Anion Gap (10-20) BUN (7-17) mg/dL Creatinine (0.7-1.2) mg/dL Est GFR ( Amer) Est GFR (Non-Af Amer) POC Glucose (mg/dL) 193 H 191 H 190 H (65-110) mg/dL Random Glucose (65-105) mg/dL Serum Osmolality (272-300) mosm/kg Calcium (8.6-10.4) mg/dl Phosphorus (2.5-4.5) mg/dL Magnesium (1.6-2.3) mg/dL Total Bilirubin (0.2-1.3) mg/dL AST (14-36) U/L ALT (9-52) U/L Alkaline Phosphatase (38-126) U/L Total Protein (6.3-8.3) g/dL Albumin (3.5-5.0) g/dL Globulin (2.2-3.9) gm/dL Albumin/Globulin Ratio (1.0-2.1) Arterial Blood Potassium (3.6-5.2) mmol/L 05/03/18 05/03/18 05/03/18 Range/Units 09:04 07:52 07:17 WBC (4.8-10.8) K/uL RBC (3.80-5.20) Mil/uL Hgb (11.0-16.0) g/dL Hct (34.0-47.0) % MCV (81.0-99.0) fL MCH (27.0-31.0) pg MCHC (33.0-37.0) g/dL RDW (11.5-14.5) % Plt Count (130-400) K/uL MPV (7.2-11.7) fL Neut % (Auto) (50.0-75.0) % Lymph % (Auto) (20.0-40.0) % Mason % (Auto) (0.0-10.0) % Eos % (Auto) (0.0-4.0) % Baso % (Auto) (0.0-2.0) % Neut # (Auto) (1.8-7.0) K/uL Lymph # (Auto) (1.0-4.3) K/uL Mason # (Auto) (0.0-0.8) K/uL Eos # (Auto) (0.0-0.7) K/uL Baso # (Auto) (0.0-0.2) K/uL Neutrophils % (Manual) (50-75) % Band Neutrophils % (0-2) % Lymphocytes % (Manual) (20-40) % Monocytes % (Manual) (0-10) % Nucleated RBC % (0-0) % Platelet Estimate (NORMAL) Anisocytosis (manual) Target Cells Puncture Site pCO2 (35-45) mm/Hg pO2 (80-100) mm/Hg HCO3 (21-28) mmol/L ABG pH (7.35-7.45) ABG Total CO2 (22-28) mmol/L ABG O2 Saturation (95-98) % ABG Base Excess (-2.0-3.0) mmol/L Erik Test ABG Potassium (3.6-5.2) mmol/L A-a O2 Difference mm/Hg Respiratory Index Sodium (132-148) mmol/l Chloride (98-107) mmol/L Glucose (65-105) mg/dl Lactate (0.7-2.1) mmol/L Vent Mode Mechanical Rate FiO2 % Tidal Volume PEEP Crit Value Called To Crit Value Called By Crit Value Read Back Blood Gas Notified Time Potassium (3.6-5.2) mmol/L Carbon Dioxide (22-30) mmol/L Anion Gap (10-20) BUN (7-17) mg/dL Creatinine (0.7-1.2) mg/dL Est GFR ( Amer) Est GFR (Non-Af Amer) POC Glucose (mg/dL) 182 H 182 H 197 H (65-110) mg/dL Random Glucose (65-105) mg/dL Serum Osmolality (272-300) mosm/kg Calcium (8.6-10.4) mg/dl Phosphorus (2.5-4.5) mg/dL Magnesium (1.6-2.3) mg/dL Total Bilirubin (0.2-1.3) mg/dL AST (14-36) U/L ALT (9-52) U/L Alkaline Phosphatase (38-126) U/L Total Protein (6.3-8.3) g/dL Albumin (3.5-5.0) g/dL Globulin (2.2-3.9) gm/dL Albumin/Globulin Ratio (1.0-2.1) Arterial Blood Potassium (3.6-5.2) mmol/L 05/03/18 05/03/18 05/03/18 Range/Units 06:04 05:04 03:57 WBC (4.8-10.8) K/uL RBC (3.80-5.20) Mil/uL Hgb (11.0-16.0) g/dL Hct (34.0-47.0) % MCV (81.0-99.0) fL MCH (27.0-31.0) pg MCHC (33.0-37.0) g/dL RDW (11.5-14.5) % Plt Count (130-400) K/uL MPV (7.2-11.7) fL Neut % (Auto) (50.0-75.0) % Lymph % (Auto) (20.0-40.0) % Mason % (Auto) (0.0-10.0) % Eos % (Auto) (0.0-4.0) % Baso % (Auto) (0.0-2.0) % Neut # (Auto) (1.8-7.0) K/uL Lymph # (Auto) (1.0-4.3) K/uL Mason # (Auto) (0.0-0.8) K/uL Eos # (Auto) (0.0-0.7) K/uL Baso # (Auto) (0.0-0.2) K/uL Neutrophils % (Manual) (50-75) % Band Neutrophils % (0-2) % Lymphocytes % (Manual) (20-40) % Monocytes % (Manual) (0-10) % Nucleated RBC % (0-0) % Platelet Estimate (NORMAL) Anisocytosis (manual) Target Cells Puncture Site pCO2 (35-45) mm/Hg pO2 (80-100) mm/Hg HCO3 (21-28) mmol/L ABG pH (7.35-7.45) ABG Total CO2 (22-28) mmol/L ABG O2 Saturation (95-98) % ABG Base Excess (-2.0-3.0) mmol/L Erik Test ABG Potassium (3.6-5.2) mmol/L A-a O2 Difference mm/Hg Respiratory Index Sodium (132-148) mmol/l Chloride (98-107) mmol/L Glucose (65-105) mg/dl Lactate (0.7-2.1) mmol/L Vent Mode Mechanical Rate FiO2 % Tidal Volume PEEP Crit Value Called To Crit Value Called By Crit Value Read Back Blood Gas Notified Time Potassium (3.6-5.2) mmol/L Carbon Dioxide (22-30) mmol/L Anion Gap (10-20) BUN (7-17) mg/dL Creatinine (0.7-1.2) mg/dL Est GFR ( Amer) Est GFR (Non-Af Amer) POC Glucose (mg/dL) 173 H 164 H 182 H (65-110) mg/dL Random Glucose (65-105) mg/dL Serum Osmolality (272-300) mosm/kg Calcium (8.6-10.4) mg/dl Phosphorus (2.5-4.5) mg/dL Magnesium (1.6-2.3) mg/dL Total Bilirubin (0.2-1.3) mg/dL AST (14-36) U/L ALT (9-52) U/L Alkaline Phosphatase (38-126) U/L Total Protein (6.3-8.3) g/dL Albumin (3.5-5.0) g/dL Globulin (2.2-3.9) gm/dL Albumin/Globulin Ratio (1.0-2.1) Arterial Blood Potassium (3.6-5.2) mmol/L 05/03/18 05/03/18 05/03/18 Range/Units 02:57 02:02 01:01 WBC (4.8-10.8) K/uL RBC (3.80-5.20) Mil/uL Hgb (11.0-16.0) g/dL Hct (34.0-47.0) % MCV (81.0-99.0) fL MCH (27.0-31.0) pg MCHC (33.0-37.0) g/dL RDW (11.5-14.5) % Plt Count (130-400) K/uL MPV (7.2-11.7) fL Neut % (Auto) (50.0-75.0) % Lymph % (Auto) (20.0-40.0) % Mason % (Auto) (0.0-10.0) % Eos % (Auto) (0.0-4.0) % Baso % (Auto) (0.0-2.0) % Neut # (Auto) (1.8-7.0) K/uL Lymph # (Auto) (1.0-4.3) K/uL Mason # (Auto) (0.0-0.8) K/uL Eos # (Auto) (0.0-0.7) K/uL Baso # (Auto) (0.0-0.2) K/uL Neutrophils % (Manual) (50-75) % Band Neutrophils % (0-2) % Lymphocytes % (Manual) (20-40) % Monocytes % (Manual) (0-10) % Nucleated RBC % (0-0) % Platelet Estimate (NORMAL) Anisocytosis (manual) Target Cells Puncture Site pCO2 (35-45) mm/Hg pO2 (80-100) mm/Hg HCO3 (21-28) mmol/L ABG pH (7.35-7.45) ABG Total CO2 (22-28) mmol/L ABG O2 Saturation (95-98) % ABG Base Excess (-2.0-3.0) mmol/L Erik Test ABG Potassium (3.6-5.2) mmol/L A-a O2 Difference mm/Hg Respiratory Index Sodium (132-148) mmol/l Chloride (98-107) mmol/L Glucose (65-105) mg/dl Lactate (0.7-2.1) mmol/L Vent Mode Mechanical Rate FiO2 % Tidal Volume PEEP Crit Value Called To Crit Value Called By Crit Value Read Back Blood Gas Notified Time Potassium (3.6-5.2) mmol/L Carbon Dioxide (22-30) mmol/L Anion Gap (10-20) BUN (7-17) mg/dL Creatinine (0.7-1.2) mg/dL Est GFR ( Amer) Est GFR (Non-Af Amer) POC Glucose (mg/dL) 176 H 176 H 146 H (65-110) mg/dL Random Glucose (65-105) mg/dL Serum Osmolality (272-300) mosm/kg Calcium (8.6-10.4) mg/dl Phosphorus (2.5-4.5) mg/dL Magnesium (1.6-2.3) mg/dL Total Bilirubin (0.2-1.3) mg/dL AST (14-36) U/L ALT (9-52) U/L Alkaline Phosphatase (38-126) U/L Total Protein (6.3-8.3) g/dL Albumin (3.5-5.0) g/dL Globulin (2.2-3.9) gm/dL Albumin/Globulin Ratio (1.0-2.1) Arterial Blood Potassium (3.6-5.2) mmol/L 05/02/18 05/02/18 05/02/18 Range/Units 23:55 22:02 21:04 WBC (4.8-10.8) K/uL RBC (3.80-5.20) Mil/uL Hgb (11.0-16.0) g/dL Hct (34.0-47.0) % MCV (81.0-99.0) fL MCH (27.0-31.0) pg MCHC (33.0-37.0) g/dL RDW (11.5-14.5) % Plt Count (130-400) K/uL MPV (7.2-11.7) fL Neut % (Auto) (50.0-75.0) % Lymph % (Auto) (20.0-40.0) % Mason % (Auto) (0.0-10.0) % Eos % (Auto) (0.0-4.0) % Baso % (Auto) (0.0-2.0) % Neut # (Auto) (1.8-7.0) K/uL Lymph # (Auto) (1.0-4.3) K/uL Mason # (Auto) (0.0-0.8) K/uL Eos # (Auto) (0.0-0.7) K/uL Baso # (Auto) (0.0-0.2) K/uL Neutrophils % (Manual) (50-75) % Band Neutrophils % (0-2) % Lymphocytes % (Manual) (20-40) % Monocytes % (Manual) (0-10) % Nucleated RBC % (0-0) % Platelet Estimate (NORMAL) Anisocytosis (manual) Target Cells Puncture Site pCO2 (35-45) mm/Hg pO2 (80-100) mm/Hg HCO3 (21-28) mmol/L ABG pH (7.35-7.45) ABG Total CO2 (22-28) mmol/L ABG O2 Saturation (95-98) % ABG Base Excess (-2.0-3.0) mmol/L Erik Test ABG Potassium (3.6-5.2) mmol/L A-a O2 Difference mm/Hg Respiratory Index Sodium (132-148) mmol/l Chloride (98-107) mmol/L Glucose (65-105) mg/dl Lactate (0.7-2.1) mmol/L Vent Mode Mechanical Rate FiO2 % Tidal Volume PEEP Crit Value Called To Crit Value Called By Crit Value Read Back Blood Gas Notified Time Potassium (3.6-5.2) mmol/L Carbon Dioxide (22-30) mmol/L Anion Gap (10-20) BUN (7-17) mg/dL Creatinine (0.7-1.2) mg/dL Est GFR ( Amer) Est GFR (Non-Af Amer) POC Glucose (mg/dL) 164 H 192 H 171 H (65-110) mg/dL Random Glucose (65-105) mg/dL Serum Osmolality (272-300) mosm/kg Calcium (8.6-10.4) mg/dl Phosphorus (2.5-4.5) mg/dL Magnesium (1.6-2.3) mg/dL Total Bilirubin (0.2-1.3) mg/dL AST (14-36) U/L ALT (9-52) U/L Alkaline Phosphatase (38-126) U/L Total Protein (6.3-8.3) g/dL Albumin (3.5-5.0) g/dL Globulin (2.2-3.9) gm/dL Albumin/Globulin Ratio (1.0-2.1) Arterial Blood Potassium (3.6-5.2) mmol/L 05/02/18 05/02/18 05/02/18 Range/Units 20:09 18:54 18:03 WBC (4.8-10.8) K/uL RBC (3.80-5.20) Mil/uL Hgb (11.0-16.0) g/dL Hct (34.0-47.0) % MCV (81.0-99.0) fL MCH (27.0-31.0) pg MCHC (33.0-37.0) g/dL RDW (11.5-14.5) % Plt Count (130-400) K/uL MPV (7.2-11.7) fL Neut % (Auto) (50.0-75.0) % Lymph % (Auto) (20.0-40.0) % Mason % (Auto) (0.0-10.0) % Eos % (Auto) (0.0-4.0) % Baso % (Auto) (0.0-2.0) % Neut # (Auto) (1.8-7.0) K/uL Lymph # (Auto) (1.0-4.3) K/uL Mason # (Auto) (0.0-0.8) K/uL Eos # (Auto) (0.0-0.7) K/uL Baso # (Auto) (0.0-0.2) K/uL Neutrophils % (Manual) (50-75) % Band Neutrophils % (0-2) % Lymphocytes % (Manual) (20-40) % Monocytes % (Manual) (0-10) % Nucleated RBC % (0-0) % Platelet Estimate (NORMAL) Anisocytosis (manual) Target Cells Puncture Site pCO2 (35-45) mm/Hg pO2 (80-100) mm/Hg HCO3 (21-28) mmol/L ABG pH (7.35-7.45) ABG Total CO2 (22-28) mmol/L ABG O2 Saturation (95-98) % ABG Base Excess (-2.0-3.0) mmol/L Erik Test ABG Potassium (3.6-5.2) mmol/L A-a O2 Difference mm/Hg Respiratory Index Sodium (132-148) mmol/l Chloride (98-107) mmol/L Glucose (65-105) mg/dl Lactate (0.7-2.1) mmol/L Vent Mode Mechanical Rate FiO2 % Tidal Volume PEEP Crit Value Called To Crit Value Called By Crit Value Read Back Blood Gas Notified Time Potassium (3.6-5.2) mmol/L Carbon Dioxide (22-30) mmol/L Anion Gap (10-20) BUN (7-17) mg/dL Creatinine (0.7-1.2) mg/dL Est GFR ( Amer) Est GFR (Non-Af Amer) POC Glucose (mg/dL) 200 H 190 H 203 H (65-110) mg/dL Random Glucose (65-105) mg/dL Serum Osmolality (272-300) mosm/kg Calcium (8.6-10.4) mg/dl Phosphorus (2.5-4.5) mg/dL Magnesium (1.6-2.3) mg/dL Total Bilirubin (0.2-1.3) mg/dL AST (14-36) U/L ALT (9-52) U/L Alkaline Phosphatase (38-126) U/L Total Protein (6.3-8.3) g/dL Albumin (3.5-5.0) g/dL Globulin (2.2-3.9) gm/dL Albumin/Globulin Ratio (1.0-2.1) Arterial Blood Potassium (3.6-5.2) mmol/L 05/02/18 05/02/18 05/02/18 Range/Units 17:02 15:43 14:05 WBC (4.8-10.8) K/uL RBC (3.80-5.20) Mil/uL Hgb (11.0-16.0) g/dL Hct (34.0-47.0) % MCV (81.0-99.0) fL MCH (27.0-31.0) pg MCHC (33.0-37.0) g/dL RDW (11.5-14.5) % Plt Count (130-400) K/uL MPV (7.2-11.7) fL Neut % (Auto) (50.0-75.0) % Lymph % (Auto) (20.0-40.0) % Mason % (Auto) (0.0-10.0) % Eos % (Auto) (0.0-4.0) % Baso % (Auto) (0.0-2.0) % Neut # (Auto) (1.8-7.0) K/uL Lymph # (Auto) (1.0-4.3) K/uL Mason # (Auto) (0.0-0.8) K/uL Eos # (Auto) (0.0-0.7) K/uL Baso # (Auto) (0.0-0.2) K/uL Neutrophils % (Manual) (50-75) % Band Neutrophils % (0-2) % Lymphocytes % (Manual) (20-40) % Monocytes % (Manual) (0-10) % Nucleated RBC % (0-0) % Platelet Estimate (NORMAL) Anisocytosis (manual) Target Cells Puncture Site pCO2 (35-45) mm/Hg pO2 (80-100) mm/Hg HCO3 (21-28) mmol/L ABG pH (7.35-7.45) ABG Total CO2 (22-28) mmol/L ABG O2 Saturation (95-98) % ABG Base Excess (-2.0-3.0) mmol/L Erik Test ABG Potassium (3.6-5.2) mmol/L A-a O2 Difference mm/Hg Respiratory Index Sodium (132-148) mmol/l Chloride (98-107) mmol/L Glucose (65-105) mg/dl Lactate (0.7-2.1) mmol/L Vent Mode Mechanical Rate FiO2 % Tidal Volume PEEP Crit Value Called To Crit Value Called By Crit Value Read Back Blood Gas Notified Time Potassium (3.6-5.2) mmol/L Carbon Dioxide (22-30) mmol/L Anion Gap (10-20) BUN (7-17) mg/dL Creatinine (0.7-1.2) mg/dL Est GFR ( Amer) Est GFR (Non-Af Amer) POC Glucose (mg/dL) 207 H 226 H 237 H (65-110) mg/dL Random Glucose (65-105) mg/dL Serum Osmolality (272-300) mosm/kg Calcium (8.6-10.4) mg/dl Phosphorus (2.5-4.5) mg/dL Magnesium (1.6-2.3) mg/dL Total Bilirubin (0.2-1.3) mg/dL AST (14-36) U/L ALT (9-52) U/L Alkaline Phosphatase (38-126) U/L Total Protein (6.3-8.3) g/dL Albumin (3.5-5.0) g/dL Globulin (2.2-3.9) gm/dL Albumin/Globulin Ratio (1.0-2.1) Arterial Blood Potassium (3.6-5.2) mmol/L 05/02/18 05/02/18 05/02/18 Range/Units 12:16 11:01 09:58 WBC (4.8-10.8) K/uL RBC (3.80-5.20) Mil/uL Hgb (11.0-16.0) g/dL Hct (34.0-47.0) % MCV (81.0-99.0) fL MCH (27.0-31.0) pg MCHC (33.0-37.0) g/dL RDW (11.5-14.5) % Plt Count (130-400) K/uL MPV (7.2-11.7) fL Neut % (Auto) (50.0-75.0) % Lymph % (Auto) (20.0-40.0) % Mason % (Auto) (0.0-10.0) % Eos % (Auto) (0.0-4.0) % Baso % (Auto) (0.0-2.0) % Neut # (Auto) (1.8-7.0) K/uL Lymph # (Auto) (1.0-4.3) K/uL Mason # (Auto) (0.0-0.8) K/uL Eos # (Auto) (0.0-0.7) K/uL Baso # (Auto) (0.0-0.2) K/uL Neutrophils % (Manual) (50-75) % Band Neutrophils % (0-2) % Lymphocytes % (Manual) (20-40) % Monocytes % (Manual) (0-10) % Nucleated RBC % (0-0) % Platelet Estimate (NORMAL) Anisocytosis (manual) Target Cells Puncture Site pCO2 (35-45) mm/Hg pO2 (80-100) mm/Hg HCO3 (21-28) mmol/L ABG pH (7.35-7.45) ABG Total CO2 (22-28) mmol/L ABG O2 Saturation (95-98) % ABG Base Excess (-2.0-3.0) mmol/L Erik Test ABG Potassium (3.6-5.2) mmol/L A-a O2 Difference mm/Hg Respiratory Index Sodium (132-148) mmol/l Chloride (98-107) mmol/L Glucose (65-105) mg/dl Lactate (0.7-2.1) mmol/L Vent Mode Mechanical Rate FiO2 % Tidal Volume PEEP Crit Value Called To Crit Value Called By Crit Value Read Back Blood Gas Notified Time Potassium (3.6-5.2) mmol/L Carbon Dioxide (22-30) mmol/L Anion Gap (10-20) BUN (7-17) mg/dL Creatinine (0.7-1.2) mg/dL Est GFR ( Amer) Est GFR (Non-Af Amer) POC Glucose (mg/dL) 285 H 287 H 322 H (65-110) mg/dL Random Glucose (65-105) mg/dL Serum Osmolality (272-300) mosm/kg Calcium (8.6-10.4) mg/dl Phosphorus (2.5-4.5) mg/dL Magnesium (1.6-2.3) mg/dL Total Bilirubin (0.2-1.3) mg/dL AST (14-36) U/L ALT (9-52) U/L Alkaline Phosphatase (38-126) U/L Total Protein (6.3-8.3) g/dL Albumin (3.5-5.0) g/dL Globulin (2.2-3.9) gm/dL Albumin/Globulin Ratio (1.0-2.1) Arterial Blood Potassium (3.6-5.2) mmol/L 05/02/18 05/02/18 05/02/18 Range/Units 09:00 08:03 06:51 WBC (4.8-10.8) K/uL RBC (3.80-5.20) Mil/uL Hgb (11.0-16.0) g/dL Hct (34.0-47.0) % MCV (81.0-99.0) fL MCH (27.0-31.0) pg MCHC (33.0-37.0) g/dL RDW (11.5-14.5) % Plt Count (130-400) K/uL MPV (7.2-11.7) fL Neut % (Auto) (50.0-75.0) % Lymph % (Auto) (20.0-40.0) % Mason % (Auto) (0.0-10.0) % Eos % (Auto) (0.0-4.0) % Baso % (Auto) (0.0-2.0) % Neut # (Auto) (1.8-7.0) K/uL Lymph # (Auto) (1.0-4.3) K/uL Mason # (Auto) (0.0-0.8) K/uL Eos # (Auto) (0.0-0.7) K/uL Baso # (Auto) (0.0-0.2) K/uL Neutrophils % (Manual) (50-75) % Band Neutrophils % (0-2) % Lymphocytes % (Manual) (20-40) % Monocytes % (Manual) (0-10) % Nucleated RBC % (0-0) % Platelet Estimate (NORMAL) Anisocytosis (manual) Target Cells Puncture Site pCO2 (35-45) mm/Hg pO2 (80-100) mm/Hg HCO3 (21-28) mmol/L ABG pH (7.35-7.45) ABG Total CO2 (22-28) mmol/L ABG O2 Saturation (95-98) % ABG Base Excess (-2.0-3.0) mmol/L Erik Test ABG Potassium (3.6-5.2) mmol/L A-a O2 Difference mm/Hg Respiratory Index Sodium (132-148) mmol/l Chloride (98-107) mmol/L Glucose (65-105) mg/dl Lactate (0.7-2.1) mmol/L Vent Mode Mechanical Rate FiO2 % Tidal Volume PEEP Crit Value Called To Crit Value Called By Crit Value Read Back Blood Gas Notified Time Potassium (3.6-5.2) mmol/L Carbon Dioxide (22-30) mmol/L Anion Gap (10-20) BUN (7-17) mg/dL Creatinine (0.7-1.2) mg/dL Est GFR ( Amer) Est GFR (Non-Af Amer) POC Glucose (mg/dL) 365 H 383 H 464 H* (65-110) mg/dL Random Glucose (65-105) mg/dL Serum Osmolality (272-300) mosm/kg Calcium (8.6-10.4) mg/dl Phosphorus (2.5-4.5) mg/dL Magnesium (1.6-2.3) mg/dL Total Bilirubin (0.2-1.3) mg/dL AST (14-36) U/L ALT (9-52) U/L Alkaline Phosphatase (38-126) U/L Total Protein (6.3-8.3) g/dL Albumin (3.5-5.0) g/dL Globulin (2.2-3.9) gm/dL Albumin/Globulin Ratio (1.0-2.1) Arterial Blood Potassium (3.6-5.2) mmol/L 05/02/18 05/02/18 05/02/18 Range/Units 06:12 05:24 03:53 WBC (4.8-10.8) K/uL RBC (3.80-5.20) Mil/uL Hgb (11.0-16.0) g/dL Hct (34.0-47.0) % MCV (81.0-99.0) fL MCH (27.0-31.0) pg MCHC (33.0-37.0) g/dL RDW (11.5-14.5) % Plt Count (130-400) K/uL MPV (7.2-11.7) fL Neut % (Auto) (50.0-75.0) % Lymph % (Auto) (20.0-40.0) % Mason % (Auto) (0.0-10.0) % Eos % (Auto) (0.0-4.0) % Baso % (Auto) (0.0-2.0) % Neut # (Auto) (1.8-7.0) K/uL Lymph # (Auto) (1.0-4.3) K/uL Mason # (Auto) (0.0-0.8) K/uL Eos # (Auto) (0.0-0.7) K/uL Baso # (Auto) (0.0-0.2) K/uL Neutrophils % (Manual) (50-75) % Band Neutrophils % (0-2) % Lymphocytes % (Manual) (20-40) % Monocytes % (Manual) (0-10) % Nucleated RBC % (0-0) % Platelet Estimate (NORMAL) Anisocytosis (manual) Target Cells Puncture Site pCO2 (35-45) mm/Hg pO2 (80-100) mm/Hg HCO3 (21-28) mmol/L ABG pH (7.35-7.45) ABG Total CO2 (22-28) mmol/L ABG O2 Saturation (95-98) % ABG Base Excess (-2.0-3.0) mmol/L Erik Test ABG Potassium (3.6-5.2) mmol/L A-a O2 Difference mm/Hg Respiratory Index Sodium (132-148) mmol/l Chloride (98-107) mmol/L Glucose (65-105) mg/dl Lactate (0.7-2.1) mmol/L Vent Mode Mechanical Rate FiO2 % Tidal Volume PEEP Crit Value Called To Crit Value Called By Crit Value Read Back Blood Gas Notified Time Potassium (3.6-5.2) mmol/L Carbon Dioxide (22-30) mmol/L Anion Gap (10-20) BUN (7-17) mg/dL Creatinine (0.7-1.2) mg/dL Est GFR ( Amer) Est GFR (Non-Af Amer) POC Glucose (mg/dL) > 500 H* > 500 H* > 500 H* (65-110) mg/dL Random Glucose (65-105) mg/dL Serum Osmolality (272-300) mosm/kg Calcium (8.6-10.4) mg/dl Phosphorus (2.5-4.5) mg/dL Magnesium (1.6-2.3) mg/dL Total Bilirubin (0.2-1.3) mg/dL AST (14-36) U/L ALT (9-52) U/L Alkaline Phosphatase (38-126) U/L Total Protein (6.3-8.3) g/dL Albumin (3.5-5.0) g/dL Globulin (2.2-3.9) gm/dL Albumin/Globulin Ratio (1.0-2.1) Arterial Blood Potassium (3.6-5.2) mmol/L Laboratory Results - last 24 hr 05/02/18 05/02/18 05/02/18 03:53 05:24 06:12 WBC RBC Hgb Hct MCV MCH MCHC RDW Plt Count MPV Neut % (Auto) Lymph % (Auto) Mason % (Auto) Eos % (Auto) Baso % (Auto) Neut # (Auto) Lymph # (Auto) Mason # (Auto) Eos # (Auto) Baso # (Auto) Neutrophils % (Manual) Band Neutrophils % Lymphocytes % (Manual) Monocytes % (Manual) Nucleated RBC % Platelet Estimate Anisocytosis (manual) Target Cells Puncture Site pCO2 pO2 HCO3 ABG pH ABG Total CO2 ABG O2 Saturation ABG Base Excess Erik Test ABG Potassium A-a O2 Difference Respiratory Index Sodium Chloride Glucose Lactate Vent Mode Mechanical Rate FiO2 Tidal Volume PEEP Crit Value Called To Crit Value Called By Crit Value Read Back Blood Gas Notified Time Potassium Carbon Dioxide Anion Gap BUN Creatinine Est GFR ( Amer) Est GFR (Non-Af Amer) POC Glucose (mg/dL) > 500 H* > 500 H* > 500 H* Random Glucose Serum Osmolality Calcium Phosphorus Magnesium Total Bilirubin AST ALT Alkaline Phosphatase Total Protein Albumin Globulin Albumin/Globulin Ratio Arterial Blood Potassium 05/02/18 05/02/18 05/02/18 06:51 08:03 09:00 WBC RBC Hgb Hct MCV MCH MCHC RDW Plt Count MPV Neut % (Auto) Lymph % (Auto) Mason % (Auto) Eos % (Auto) Baso % (Auto) Neut # (Auto) Lymph # (Auto) Mason # (Auto) Eos # (Auto) Baso # (Auto) Neutrophils % (Manual) Band Neutrophils % Lymphocytes % (Manual) Monocytes % (Manual) Nucleated RBC % Platelet Estimate Anisocytosis (manual) Target Cells Puncture Site pCO2 pO2 HCO3 ABG pH ABG Total CO2 ABG O2 Saturation ABG Base Excess Erik Test ABG Potassium A-a O2 Difference Respiratory Index Sodium Chloride Glucose Lactate Vent Mode Mechanical Rate FiO2 Tidal Volume PEEP Crit Value Called To Crit Value Called By Crit Value Read Back Blood Gas Notified Time Potassium Carbon Dioxide Anion Gap BUN Creatinine Est GFR ( Amer) Est GFR (Non-Af Amer) POC Glucose (mg/dL) 464 H* 383 H 365 H Random Glucose Serum Osmolality Calcium Phosphorus Magnesium Total Bilirubin AST ALT Alkaline Phosphatase Total Protein Albumin Globulin Albumin/Globulin Ratio Arterial Blood Potassium 05/02/18 05/02/18 05/02/18 09:58 11:01 12:16 WBC RBC Hgb Hct MCV MCH MCHC RDW Plt Count MPV Neut % (Auto) Lymph % (Auto) Mason % (Auto) Eos % (Auto) Baso % (Auto) Neut # (Auto) Lymph # (Auto) Mason # (Auto) Eos # (Auto) Baso # (Auto) Neutrophils % (Manual) Band Neutrophils % Lymphocytes % (Manual) Monocytes % (Manual) Nucleated RBC % Platelet Estimate Anisocytosis (manual) Target Cells Puncture Site pCO2 pO2 HCO3 ABG pH ABG Total CO2 ABG O2 Saturation ABG Base Excess Erik Test ABG Potassium A-a O2 Difference Respiratory Index Sodium Chloride Glucose Lactate Vent Mode Mechanical Rate FiO2 Tidal Volume PEEP Crit Value Called To Crit Value Called By Crit Value Read Back Blood Gas Notified Time Potassium Carbon Dioxide Anion Gap BUN Creatinine Est GFR ( Amer) Est GFR (Non-Af Amer) POC Glucose (mg/dL) 322 H 287 H 285 H Random Glucose Serum Osmolality Calcium Phosphorus Magnesium Total Bilirubin AST ALT Alkaline Phosphatase Total Protein Albumin Globulin Albumin/Globulin Ratio Arterial Blood Potassium 05/02/18 05/02/18 05/02/18 14:05 15:43 17:02 WBC RBC Hgb Hct MCV MCH MCHC RDW Plt Count MPV Neut % (Auto) Lymph % (Auto) Mason % (Auto) Eos % (Auto) Baso % (Auto) Neut # (Auto) Lymph # (Auto) Mason # (Auto) Eos # (Auto) Baso # (Auto) Neutrophils % (Manual) Band Neutrophils % Lymphocytes % (Manual) Monocytes % (Manual) Nucleated RBC % Platelet Estimate Anisocytosis (manual) Target Cells Puncture Site pCO2 pO2 HCO3 ABG pH ABG Total CO2 ABG O2 Saturation ABG Base Excess Erik Test ABG Potassium A-a O2 Difference Respiratory Index Sodium Chloride Glucose Lactate Vent Mode Mechanical Rate FiO2 Tidal Volume PEEP Crit Value Called To Crit Value Called By Crit Value Read Back Blood Gas Notified Time Potassium Carbon Dioxide Anion Gap BUN Creatinine Est GFR ( Amer) Est GFR (Non-Af Amer) POC Glucose (mg/dL) 237 H 226 H 207 H Random Glucose Serum Osmolality Calcium Phosphorus Magnesium Total Bilirubin AST ALT Alkaline Phosphatase Total Protein Albumin Globulin Albumin/Globulin Ratio Arterial Blood Potassium 05/02/18 05/02/18 05/02/18 18:03 18:54 20:09 WBC RBC Hgb Hct MCV MCH MCHC RDW Plt Count MPV Neut % (Auto) Lymph % (Auto) Mason % (Auto) Eos % (Auto) Baso % (Auto) Neut # (Auto) Lymph # (Auto) Mason # (Auto) Eos # (Auto) Baso # (Auto) Neutrophils % (Manual) Band Neutrophils % Lymphocytes % (Manual) Monocytes % (Manual) Nucleated RBC % Platelet Estimate Anisocytosis (manual) Target Cells Puncture Site pCO2 pO2 HCO3 ABG pH ABG Total CO2 ABG O2 Saturation ABG Base Excess Erik Test ABG Potassium A-a O2 Difference Respiratory Index Sodium Chloride Glucose Lactate Vent Mode Mechanical Rate FiO2 Tidal Volume PEEP Crit Value Called To Crit Value Called By Crit Value Read Back Blood Gas Notified Time Potassium Carbon Dioxide Anion Gap BUN Creatinine Est GFR ( Amer) Est GFR (Non-Af Amer) POC Glucose (mg/dL) 203 H 190 H 200 H Random Glucose Serum Osmolality Calcium Phosphorus Magnesium Total Bilirubin AST ALT Alkaline Phosphatase Total Protein Albumin Globulin Albumin/Globulin Ratio Arterial Blood Potassium 05/02/18 05/02/18 05/02/18 21:04 22:02 23:55 WBC RBC Hgb Hct MCV MCH MCHC RDW Plt Count MPV Neut % (Auto) Lymph % (Auto) Mason % (Auto) Eos % (Auto) Baso % (Auto) Neut # (Auto) Lymph # (Auto) Mason # (Auto) Eos # (Auto) Baso # (Auto) Neutrophils % (Manual) Band Neutrophils % Lymphocytes % (Manual) Monocytes % (Manual) Nucleated RBC % Platelet Estimate Anisocytosis (manual) Target Cells Puncture Site pCO2 pO2 HCO3 ABG pH ABG Total CO2 ABG O2 Saturation ABG Base Excess Erik Test ABG Potassium A-a O2 Difference Respiratory Index Sodium Chloride Glucose Lactate Vent Mode Mechanical Rate FiO2 Tidal Volume PEEP Crit Value Called To Crit Value Called By Crit Value Read Back Blood Gas Notified Time Potassium Carbon Dioxide Anion Gap BUN Creatinine Est GFR ( Amer) Est GFR (Non-Af Amer) POC Glucose (mg/dL) 171 H 192 H 164 H Random Glucose Serum Osmolality Calcium Phosphorus Magnesium Total Bilirubin AST ALT Alkaline Phosphatase Total Protein Albumin Globulin Albumin/Globulin Ratio Arterial Blood Potassium 05/03/18 05/03/18 05/03/18 01:01 02:02 02:57 WBC RBC Hgb Hct MCV MCH MCHC RDW Plt Count MPV Neut % (Auto) Lymph % (Auto) Mason % (Auto) Eos % (Auto) Baso % (Auto) Neut # (Auto) Lymph # (Auto) Mason # (Auto) Eos # (Auto) Baso # (Auto) Neutrophils % (Manual) Band Neutrophils % Lymphocytes % (Manual) Monocytes % (Manual) Nucleated RBC % Platelet Estimate Anisocytosis (manual) Target Cells Puncture Site pCO2 pO2 HCO3 ABG pH ABG Total CO2 ABG O2 Saturation ABG Base Excess Erik Test ABG Potassium A-a O2 Difference Respiratory Index Sodium Chloride Glucose Lactate Vent Mode Mechanical Rate FiO2 Tidal Volume PEEP Crit Value Called To Crit Value Called By Crit Value Read Back Blood Gas Notified Time Potassium Carbon Dioxide Anion Gap BUN Creatinine Est GFR ( Amer) Est GFR (Non-Af Amer) POC Glucose (mg/dL) 146 H 176 H 176 H Random Glucose Serum Osmolality Calcium Phosphorus Magnesium Total Bilirubin AST ALT Alkaline Phosphatase Total Protein Albumin Globulin Albumin/Globulin Ratio Arterial Blood Potassium 05/03/18 05/03/18 05/03/18 03:57 05:04 06:04 WBC RBC Hgb Hct MCV MCH MCHC RDW Plt Count MPV Neut % (Auto) Lymph % (Auto) Mason % (Auto) Eos % (Auto) Baso % (Auto) Neut # (Auto) Lymph # (Auto) Mason # (Auto) Eos # (Auto) Baso # (Auto) Neutrophils % (Manual) Band Neutrophils % Lymphocytes % (Manual) Monocytes % (Manual) Nucleated RBC % Platelet Estimate Anisocytosis (manual) Target Cells Puncture Site pCO2 pO2 HCO3 ABG pH ABG Total CO2 ABG O2 Saturation ABG Base Excess Erik Test ABG Potassium A-a O2 Difference Respiratory Index Sodium Chloride Glucose Lactate Vent Mode Mechanical Rate FiO2 Tidal Volume PEEP Crit Value Called To Crit Value Called By Crit Value Read Back Blood Gas Notified Time Potassium Carbon Dioxide Anion Gap BUN Creatinine Est GFR ( Amer) Est GFR (Non-Af Amer) POC Glucose (mg/dL) 182 H 164 H 173 H Random Glucose Serum Osmolality Calcium Phosphorus Magnesium Total Bilirubin AST ALT Alkaline Phosphatase Total Protein Albumin Globulin Albumin/Globulin Ratio Arterial Blood Potassium 05/03/18 05/03/18 05/03/18 07:17 07:52 09:04 WBC RBC Hgb Hct MCV MCH MCHC RDW Plt Count MPV Neut % (Auto) Lymph % (Auto) Mason % (Auto) Eos % (Auto) Baso % (Auto) Neut # (Auto) Lymph # (Auto) Mason # (Auto) Eos # (Auto) Baso # (Auto) Neutrophils % (Manual) Band Neutrophils % Lymphocytes % (Manual) Monocytes % (Manual) Nucleated RBC % Platelet Estimate Anisocytosis (manual) Target Cells Puncture Site pCO2 pO2 HCO3 ABG pH ABG Total CO2 ABG O2 Saturation ABG Base Excess Erik Test ABG Potassium A-a O2 Difference Respiratory Index Sodium Chloride Glucose Lactate Vent Mode Mechanical Rate FiO2 Tidal Volume PEEP Crit Value Called To Crit Value Called By Crit Value Read Back Blood Gas Notified Time Potassium Carbon Dioxide Anion Gap BUN Creatinine Est GFR ( Amer) Est GFR (Non-Af Amer) POC Glucose (mg/dL) 197 H 182 H 182 H Random Glucose Serum Osmolality Calcium Phosphorus Magnesium Total Bilirubin AST ALT Alkaline Phosphatase Total Protein Albumin Globulin Albumin/Globulin Ratio Arterial Blood Potassium 05/03/18 05/03/18 05/03/18 10:04 11:06 11:56 WBC RBC Hgb Hct MCV MCH MCHC RDW Plt Count MPV Neut % (Auto) Lymph % (Auto) Mason % (Auto) Eos % (Auto) Baso % (Auto) Neut # (Auto) Lymph # (Auto) Mason # (Auto) Eos # (Auto) Baso # (Auto) Neutrophils % (Manual) Band Neutrophils % Lymphocytes % (Manual) Monocytes % (Manual) Nucleated RBC % Platelet Estimate Anisocytosis (manual) Target Cells Puncture Site pCO2 pO2 HCO3 ABG pH ABG Total CO2 ABG O2 Saturation ABG Base Excess Erik Test ABG Potassium A-a O2 Difference Respiratory Index Sodium Chloride Glucose Lactate Vent Mode Mechanical Rate FiO2 Tidal Volume PEEP Crit Value Called To Crit Value Called By Crit Value Read Back Blood Gas Notified Time Potassium Carbon Dioxide Anion Gap BUN Creatinine Est GFR ( Amer) Est GFR (Non-Af Amer) POC Glucose (mg/dL) 190 H 191 H 193 H Random Glucose Serum Osmolality Calcium Phosphorus Magnesium Total Bilirubin AST ALT Alkaline Phosphatase Total Protein Albumin Globulin Albumin/Globulin Ratio Arterial Blood Potassium 05/03/18 05/03/18 05/03/18 14:01 14:51 15:02 WBC 26.7 H RBC 4.55 Hgb 12.0 Hct 35.7 MCV 78.5 L MCH 26.4 L MCHC 33.6 RDW 15.8 H Plt Count 183 MPV 11.0 Neut % (Auto) 91.6 H Lymph % (Auto) 4.1 L Mason % (Auto) 4.0 Eos % (Auto) 0.1 Baso % (Auto) 0.2 Neut # (Auto) 24.4 H Lymph # (Auto) 1.1 Mason # (Auto) 1.1 H Eos # (Auto) 0.0 Baso # (Auto) 0.1 Neutrophils % (Manual) 66 Band Neutrophils % 23 H* Lymphocytes % (Manual) 1 L Monocytes % (Manual) 10 Nucleated RBC % Platelet Estimate Normal Anisocytosis (manual) Slight Target Cells Puncture Site Lb pCO2 24 L pO2 148 H HCO3 24.3 ABG pH 7.53 H ABG Total CO2 20.8 L ABG O2 Saturation 99.0 H ABG Base Excess -0.9 Erik Test Na ABG Potassium 3.7 A-a O2 Difference 179.0 Respiratory Index 1.2 Sodium 153.0 H Chloride 122.0 H Glucose 278 H Lactate 2.7 H Vent Mode Mechanical Rate 24 FiO2 50.0 Tidal Volume 500 PEEP 5 Crit Value Called To Dr rasheed Crit Value Called By Stew silverio antis[employer] worker Crit Value Read Back Y Blood Gas Notified Time 1454 Potassium Carbon Dioxide Anion Gap BUN Creatinine Est GFR ( Amer) Est GFR (Non-Af Amer) POC Glucose (mg/dL) 242 H Random Glucose Serum Osmolality Calcium Phosphorus Magnesium Total Bilirubin AST ALT Alkaline Phosphatase Total Protein Albumin Globulin Albumin/Globulin Ratio Arterial Blood Potassium 3.7 05/03/18 05/03/18 05/03/18 15:02 15:02 16:02 WBC RBC Hgb Hct MCV MCH MCHC RDW Plt Count MPV Neut % (Auto) Lymph % (Auto) Mason % (Auto) Eos % (Auto) Baso % (Auto) Neut # (Auto) Lymph # (Auto) Mason # (Auto) Eos # (Auto) Baso # (Auto) Neutrophils % (Manual) Band Neutrophils % Lymphocytes % (Manual) Monocytes % (Manual) Nucleated RBC % Platelet Estimate Anisocytosis (manual) Target Cells Puncture Site pCO2 pO2 HCO3 ABG pH ABG Total CO2 ABG O2 Saturation ABG Base Excess Erik Test ABG Potassium A-a O2 Difference Respiratory Index Sodium 149 H Chloride 117 H Glucose Lactate Vent Mode Mechanical Rate FiO2 Tidal Volume PEEP Crit Value Called To Crit Value Called By Crit Value Read Back Blood Gas Notified Time Potassium 4.0 Carbon Dioxide 22 Anion Gap 15 BUN 25 H Creatinine 1.2 Est GFR ( Amer) 57 Est GFR (Non-Af Amer) 47 POC Glucose (mg/dL) 256 H Random Glucose 259 H Serum Osmolality 328 H Calcium 8.1 L Phosphorus 3.0 Magnesium 1.8 Total Bilirubin 0.7 AST 160 H ALT 269 H Alkaline Phosphatase 93 Total Protein 5.3 L Albumin 2.6 L Globulin 2.7 Albumin/Globulin Ratio 1.0 Arterial Blood Potassium 05/03/18 05/04/18 05/04/18 17:44 00:14 05:55 WBC RBC Hgb Hct MCV MCH MCHC RDW Plt Count MPV Neut % (Auto) Lymph % (Auto) Mason % (Auto) Eos % (Auto) Baso % (Auto) Neut # (Auto) Lymph # (Auto) Mason # (Auto) Eos # (Auto) Baso # (Auto) Neutrophils % (Manual) Band Neutrophils % Lymphocytes % (Manual) Monocytes % (Manual) Nucleated RBC % Platelet Estimate Anisocytosis (manual) Target Cells Puncture Site Rradial pCO2 25 L pO2 118 H HCO3 27.2 ABG pH 7.58 H ABG Total CO2 24.2 ABG O2 Saturation 100.3 H ABG Base Excess 2.8 Erik Test Pos ABG Potassium 3.9 A-a O2 Difference 207.0 Respiratory Index 1.8 Sodium 152.0 H Chloride 123.0 H Glucose 341 H Lactate 2.8 H Vent Mode Prvc Mechanical Rate 24 FiO2 50.0 Tidal Volume 500 PEEP 5 Crit Value Called To Crit Value Called By Crit Value Read Back Blood Gas Notified Time Potassium Carbon Dioxide Anion Gap BUN Creatinine Est GFR ( Amer) Est GFR (Non-Af Amer) POC Glucose (mg/dL) 286 H 347 H Random Glucose Serum Osmolality Calcium Phosphorus Magnesium Total Bilirubin AST ALT Alkaline Phosphatase Total Protein Albumin Globulin Albumin/Globulin Ratio Arterial Blood Potassium 3.9 05/04/18 05/04/18 05/04/18 06:14 06:28 06:28 WBC 24.7 H RBC 4.36 Hgb 11.3 Hct 33.8 L MCV 77.5 L MCH 26.0 L MCHC 33.5 RDW 15.7 H Plt Count 175 MPV 11.2 Neut % (Auto) 90.2 H Lymph % (Auto) 5.4 L Mason % (Auto) 4.2 Eos % (Auto) 0.0 Baso % (Auto) 0.2 Neut # (Auto) 22.3 H Lymph # (Auto) 1.3 Mason # (Auto) 1.0 H Eos # (Auto) 0.0 Baso # (Auto) 0.0 Neutrophils % (Manual) 72 Band Neutrophils % 19 H* Lymphocytes % (Manual) 7 L Monocytes % (Manual) 2 Nucleated RBC % 1 H Platelet Estimate Normal Anisocytosis (manual) Slight Target Cells Slight Puncture Site pCO2 pO2 HCO3 ABG pH ABG Total CO2 ABG O2 Saturation ABG Base Excess Erik Test ABG Potassium A-a O2 Difference Respiratory Index Sodium 151 H Chloride 119 H Glucose Lactate Vent Mode Mechanical Rate FiO2 Tidal Volume PEEP Crit Value Called To Crit Value Called By Crit Value Read Back Blood Gas Notified Time Potassium 3.8 Carbon Dioxide 22 Anion Gap 13 BUN 34 H Creatinine 1.4 H Est GFR ( Amer) 48 Est GFR (Non-Af Amer) 39 POC Glucose (mg/dL) 298 H Random Glucose 306 H Serum Osmolality Calcium 8.1 L Phosphorus 2.5 Magnesium 2.1 Total Bilirubin 0.7 AST 96 H D ALT 209 H D Alkaline Phosphatase 109 Total Protein 5.4 L Albumin 2.7 L Globulin 2.7 Albumin/Globulin Ratio 1.0 Arterial Blood Potassium Fingerstick Blood Sugar Results: 298 Review of Systems - Review of Systems Systems not reviewed;Unavailable: Acuity of Condition Assessment/Plan - Assessment and Plan (Free Text) Assessment: This is a 52 year old female with probable past medical history of diabetes mellitus type 2 who was found unresponsive by on 05/01 (reportedly). EMS was called and patient was resuscitated and subsequently intubated on the field and brought to the ED. While in the ED: [facility] was called, patient was subsequently admitted to ICU for close monitoring and evaluation for anoxic brain injury. Patient was noted on physical exam to have ring monge suggestive of suicidal attempt by hanging. [employer] is involved and state high likelihood of suicidal attempt. Neuro: Anoxic Brain Injury Possibly 2/2 Asphyxiation Possibly 2/2 Suicidal Attempt Via Hanging - [employer] involved and on case - Dr. Duff consulted: recommendations appreciated * Poor prognosis, but with some improvement in the exam * From 05/04 note: continue current management. * MRI of the brain is recommended to evaluate for evidence of hypoxic brain injury. * MRI brain ordered - EEG obtained: showed diffuse encephalopathy with burst suppression - CT without contrast 05/01 official report: * Negative CT of the brain. Incidental ethmoid sinusitis. - Repeat CT without contrast 05/03 official report: * Stable poor cortical medullary differentiation with scattered edematous changes. No significant interval changes - Repeat CT without contrast 05/04 official report: * Little interval change in poor corticomedullary differentiation an indistinct appearance of the basal ganglia compatible with mild cerebral edema * Abnormal appearance of bilateral thalamocapsular regions concerning for hypoxic anoxic insult. - Continue neuro checks - Monitor - Maintain bed elevation at 30 degrees CV: - Rule out ACS: serial trops Q8 negative x3 - ECHO official report: * LV systolic function is normal * EF > 70% * Transmitral Doppler flow pattern is Grade I- abnormal relaxation pattern - Tachycardia - Monitor Pulm: Acute Respiratory Failure - on mechanical ventilation: decreased PEEP to 3 - Continue to titrate FiO2 to keep SpO2 > 92 - Continue bronchodilators - Monitor - CT chest abdomen pelvis without contrast official report: * Minimal bilateral pleural effusions * No fracture * No pneumothorax * Multifocal infiltrates at the bilateral upper and lower lobes as well as the right middle lobe in a pattern that could reflect aspiration given dependent subsegment affected Renal: Acute Renal Failure, improving - Consistent with ATN 2/2 ischemic vs septic - Continue IVF NS @ 100cc/hr - Speedboat Driver consulted, recommendations appreciated * Agrees to keep Na on higher side for cerebral edema management - Good urine output - No need for dialysis at this time Metabolic Acidosis - Likely 2/2 elevated lactic acid and/or DKA and/or ETOH consumption - Glycemic control - Continue to trend lactic acid - Monitor - Continue Thiamine 100 mg IV daily GI: - No acute issues - NG tube: tube feeds (Glucerna) starting at 25 - Pepcid for Ppx - CT chest abdomen pelvis without contrast official report: * Findings suspicious for segmental colitis involving separate vascular distribution of the colon. Limited abdominal and pelvic ascites noted. No free intra peritoneal gas collection appreciable Endo: Likely history of Diabetes Mellitus Type 2: uncontrolled - ISS: moderate - Hypoglycemic protocol - Accu checks Q6 - NPO diet - IVF - TSH - HgbA1c ID: Sepsis: suspect aspiration pneumonia - ID consulted (Dr. Mcgill); recommendations appreciated * Vanco - contiune * Zosyn - discontinued * Start Meropenem - Sommers culture - Serial Lactic Acid; improving - Chest X-Ray 05/03: * Improved aeration in the right lower lobe with persistent dense consolidation and presumable patchy pneumonia in the left lower lobe. * Stable position of support tubes. Patient seen and case discussed in detail with Dr. Mika Plasencia PGY1 <Mookie Brennan - Last Filed: 05/04/18 18:20> CCU Objective - Vital Signs / Intake & Output Vital Signs (Last 4 hours): Vital Signs Temp Pulse Resp BP Pulse Ox 05/04/18 18:00 94 H 18 98 05/04/18 17:56 101 H 21 196/113 H 98 05/04/18 17:39 94 H 24 186/106 H 99 05/04/18 17:30 88 22 99 05/04/18 17:29 90 25 H 183/99 H 99 05/04/18 17:20 89 24 181/103 H 95 05/04/18 17:09 100 H 19 200/130 H 99 05/04/18 17:00 87 21 99 05/04/18 16:39 86 14 177/103 H 100 05/04/18 16:30 91 H 15 99 05/04/18 16:09 86 23 174/92 H 99 05/04/18 16:00 99.4 F 97 H 23 98 05/04/18 15:39 82 25 H 159/88 H 100 05/04/18 15:30 87 21 99 05/04/18 15:09 92 H 20 172/93 H 98 05/04/18 15:00 90 15 98 05/04/18 14:45 83 19 164/91 H 95 05/04/18 14:41 84 Intake and Output (Last 8hrs): Intake & Output 05/04/18 05/04/18 05/04/18 06:59 14:59 22:59 Intake Total 729 650 400 Output Total 370 470 325 Balance 359 180 75 Weight 154 lb 5.177 oz Intake: Intake, IV Amount 729 650 400 Left Hand 700 450 Right PICC 200 400 Right Wrist 29 Output: Urine 370 470 325 Urethral (Alvarado) 370 470 325 Other: # Bowel Movements 0 - Medications Active Medications: Active Medications Generic Name Dose Route Start Last Admin Trade Name Freq PRN Reason Stop Dose Admin Albuterol/Ipratropium 3 ml 05/02/18 04:00 05/04/18 16:20 Duoneb 3 Mg/0.5 Mg (3 Ml) Ud INH 3 ml RQ4 BETH Administration Aspirin 81 mg 05/02/18 10:00 05/04/18 09:43 Ecotrin PO 81 mg DAILY BETH Administration Dextrose 0 ml 05/03/18 12:05 Dextrose 50% Inj IV STAT PRN Hypoglycemia Protocol Protocol Dextrose 15 gm 05/03/18 12:05 Glutose 15 PO ONCE PRN Hypoglycemia Protocol Protocol Glucagon 1 mg 05/03/18 12:05 Glucagen Diagnostic Kit IM STAT PRN Hypoglycemia Protocol Protocol Heparin Sodium (Porcine) 5,000 units 05/03/18 14:00 05/04/18 15:19 Heparin SC 5,000 units Q8 BETH Administration Midazolam HCl 100 mg/ Dextrose 100 mls @ 1.48 mls/hr 05/02/18 03:26 05/03/18 08:20 IV 0 mg/kg/hr .Q24H PRN 0 mls/hr Sedation Titration Protocol 0.02 MG/KG/HR Doxycycline Hyclate 100 mg/ 100 mls @ 100 mls/hr 05/02/18 04:00 05/04/18 17:25 Sodium Chloride IVPB 100 mls/hr Q12H BETH Administration Protocol Levetiracetam 1,000 mg/ Sodium 110 mls @ 420 mls/hr 05/02/18 11:30 05/04/18 11:49 Chloride IVPB 420 mls/hr Q12H BETH Administration Lactated Ringer's 1,000 mls @ 50 mls/hr 05/02/18 06:00 05/03/18 22:00 Lactated Ringer's IV Not Given .Q20H BETH Insulin Human Regular 100 unit 100 mls @ 2 mls/hr 05/02/18 10:08 05/03/18 11:01 / Sodium Chloride IV Not Given .Q24H BETH Protocol Vancomycin HCl 1,000 mg/ 200 mls @ 133.333 mls/hr 05/02/18 19:00 05/04/18 06:20 Sodium Chloride IVPB 133.333 mls/hr Q12H BETH Administration Protocol Meropenem 1 gm/ Sodium 100 mls @ 100 mls/hr 05/02/18 18:30 05/04/18 09:43 Chloride IVPB 100 mls/hr Q8H BETH Administration Protocol Dextrose 1,000 mls @ 0 mls/hr 05/03/18 12:05 Dextrose 5% In Water 1000 Ml IV .Q0M PRN Hypoglycemia Protocol Protocol Per Protocol Sodium Chloride 1,000 mls @ 100 mls/hr 05/04/18 11:06 05/04/18 12:39 Sodium Chloride 0.9% IV 05/04/18 21:05 100 mls/hr .Q10H ONE Administration Insulin Aspart 0 unit 05/03/18 18:00 05/04/18 12:40 Novolog SC 4 units Q6 BETH Administration Protocol Metoprolol Tartrate 5 mg 05/04/18 10:00 05/04/18 09:43 Lopressor IVP 5 mg DAILY BETH Administration Pantoprazole Sodium 40 mg 05/02/18 10:00 05/04/18 09:43 Protonix Inj IVP 40 mg DAILY BETH Administration Rosuvastatin Calcium 5 mg 05/03/18 22:00 05/03/18 21:42 Crestor PO 5 mg HS BETH Administration Thiamine HCl 100 mg 05/03/18 10:45 05/04/18 09:42 Vitamin B1 Inj IV 100 mg DAILY BETH Administration - Patient Studies Lab Studies: Microbiology Studies 05/02/18 04:55 Gram Stain - Final Sputum Sputum Culture - Final NORMAL ORAL ALEXI 05/02/18 01:08 Blood Culture - Preliminary Blood-Venous NO GROWTH AFTER 48 HOURS 05/02/18 01:07 Blood Culture - Preliminary Blood-Venous NO GROWTH AFTER 48 HOURS Lab Studies 05/04/18 05/04/18 05/04/18 Range/Units 11:35 11:06 06:28 WBC (4.8-10.8) K/uL RBC (3.80-5.20) Mil/uL Hgb (11.0-16.0) g/dL Hct (34.0-47.0) % MCV (81.0-99.0) fL MCH (27.0-31.0) pg MCHC (33.0-37.0) g/dL RDW (11.5-14.5) % Plt Count (130-400) K/uL MPV (7.2-11.7) fL Neut % (Auto) (50.0-75.0) % Lymph % (Auto) (20.0-40.0) % Mason % (Auto) (0.0-10.0) % Eos % (Auto) (0.0-4.0) % Baso % (Auto) (0.0-2.0) % Neut # (Auto) (1.8-7.0) K/uL Lymph # (Auto) (1.0-4.3) K/uL Mason # (Auto) (0.0-0.8) K/uL Eos # (Auto) (0.0-0.7) K/uL Baso # (Auto) (0.0-0.2) K/uL Neutrophils % (Manual) (50-75) % Band Neutrophils % (0-2) % Lymphocytes % (Manual) (20-40) % Monocytes % (Manual) (0-10) % Nucleated RBC % (0-0) % Platelet Estimate (NORMAL) Anisocytosis (manual) Target Cells Puncture Site Lb pCO2 32 L (35-45) mm/Hg pO2 112 H (80-100) mm/Hg HCO3 25.6 (21-28) mmol/L ABG pH 7.48 H (7.35-7.45) ABG Total CO2 24.8 (22-28) mmol/L ABG O2 Saturation 99.8 H (95-98) % ABG Base Excess 0.9 (-2.0-3.0) mmol/L ABG Hemoglobin 12.4 (11.7-17.4) g/dL ABG Carboxyhemoglobin 1.8 H (0.5-1.5) % POC ABG HHb (Measured) 0.2 (0.0-5.0) % ABG Methemoglobin 1.4 (0.0-3.0) % Erik Test Na ABG Potassium (3.6-5.2) mmol/L A-a O2 Difference 205.0 mm/Hg Respiratory Index 1.8 Hgb O2 Saturation 96.5 (95.0-98.0) % Sodium 151 H (132-148) mmol/l Chloride 119 H (98-107) mmol/L Glucose (65-105) mg/dl Lactate (0.7-2.1) mmol/L Vent Mode Mechanical Rate 14 FiO2 50.0 % Tidal Volume 500 PEEP 5 Potassium 3.8 (3.6-5.2) mmol/L Carbon Dioxide 22 (22-30) mmol/L Anion Gap 13 (10-20) BUN 34 H (7-17) mg/dL Creatinine 1.4 H (0.7-1.2) mg/dL Est GFR ( Amer) 48 Est GFR (Non-Af Amer) 39 POC Glucose (mg/dL) 261 H (65-110) mg/dL Random Glucose 306 H (65-105) mg/dL Calcium 8.1 L (8.6-10.4) mg/dl Phosphorus 2.5 (2.5-4.5) mg/dL Magnesium 2.1 (1.6-2.3) mg/dL Total Bilirubin 0.7 (0.2-1.3) mg/dL AST 96 H D (14-36) U/L ALT 209 H D (9-52) U/L Alkaline Phosphatase 109 (38-126) U/L Total Protein 5.4 L (6.3-8.3) g/dL Albumin 2.7 L (3.5-5.0) g/dL Globulin 2.7 (2.2-3.9) gm/dL Albumin/Globulin Ratio 1.0 (1.0-2.1) Arterial Blood Potassium (3.6-5.2) mmol/L 05/04/18 05/04/18 05/04/18 Range/Units 06:28 06:14 05:55 WBC 24.7 H (4.8-10.8) K/uL RBC 4.36 (3.80-5.20) Mil/uL Hgb 11.3 (11.0-16.0) g/dL Hct 33.8 L (34.0-47.0) % MCV 77.5 L (81.0-99.0) fL MCH 26.0 L (27.0-31.0) pg MCHC 33.5 (33.0-37.0) g/dL RDW 15.7 H (11.5-14.5) % Plt Count 175 (130-400) K/uL MPV 11.2 (7.2-11.7) fL Neut % (Auto) 90.2 H (50.0-75.0) % Lymph % (Auto) 5.4 L (20.0-40.0) % Mason % (Auto) 4.2 (0.0-10.0) % Eos % (Auto) 0.0 (0.0-4.0) % Baso % (Auto) 0.2 (0.0-2.0) % Neut # (Auto) 22.3 H (1.8-7.0) K/uL Lymph # (Auto) 1.3 (1.0-4.3) K/uL Mason # (Auto) 1.0 H (0.0-0.8) K/uL Eos # (Auto) 0.0 (0.0-0.7) K/uL Baso # (Auto) 0.0 (0.0-0.2) K/uL Neutrophils % (Manual) 72 (50-75) % Band Neutrophils % 19 H* (0-2) % Lymphocytes % (Manual) 7 L (20-40) % Monocytes % (Manual) 2 (0-10) % Nucleated RBC % 1 H (0-0) % Platelet Estimate Normal (NORMAL) Anisocytosis (manual) Slight Target Cells Slight Puncture Site Rradial pCO2 25 L (35-45) mm/Hg pO2 118 H (80-100) mm/Hg HCO3 27.2 (21-28) mmol/L ABG pH 7.58 H (7.35-7.45) ABG Total CO2 24.2 (22-28) mmol/L ABG O2 Saturation 100.3 H (95-98) % ABG Base Excess 2.8 (-2.0-3.0) mmol/L ABG Hemoglobin (11.7-17.4) g/dL ABG Carboxyhemoglobin (0.5-1.5) % POC ABG HHb (Measured) (0.0-5.0) % ABG Methemoglobin (0.0-3.0) % Erik Test Pos ABG Potassium 3.9 (3.6-5.2) mmol/L A-a O2 Difference 207.0 mm/Hg Respiratory Index 1.8 Hgb O2 Saturation (95.0-98.0) % Sodium 152.0 H (132-148) mmol/l Chloride 123.0 H (98-107) mmol/L Glucose 341 H (65-105) mg/dl Lactate 2.8 H (0.7-2.1) mmol/L Vent Mode Prvc Mechanical Rate 24 FiO2 50.0 % Tidal Volume 500 PEEP 5 Potassium (3.6-5.2) mmol/L Carbon Dioxide (22-30) mmol/L Anion Gap (10-20) BUN (7-17) mg/dL Creatinine (0.7-1.2) mg/dL Est GFR ( Amer) Est GFR (Non-Af Amer) POC Glucose (mg/dL) 298 H (65-110) mg/dL Random Glucose (65-105) mg/dL Calcium (8.6-10.4) mg/dl Phosphorus (2.5-4.5) mg/dL Magnesium (1.6-2.3) mg/dL Total Bilirubin (0.2-1.3) mg/dL AST (14-36) U/L ALT (9-52) U/L Alkaline Phosphatase (38-126) U/L Total Protein (6.3-8.3) g/dL Albumin (3.5-5.0) g/dL Globulin (2.2-3.9) gm/dL Albumin/Globulin Ratio (1.0-2.1) Arterial Blood Potassium 3.9 (3.6-5.2) mmol/L 05/04/18 05/03/18 05/03/18 Range/Units 00:14 17:44 07:17 WBC (4.8-10.8) K/uL RBC (3.80-5.20) Mil/uL Hgb (11.0-16.0) g/dL Hct (34.0-47.0) % MCV (81.0-99.0) fL MCH (27.0-31.0) pg MCHC (33.0-37.0) g/dL RDW (11.5-14.5) % Plt Count (130-400) K/uL MPV (7.2-11.7) fL Neut % (Auto) (50.0-75.0) % Lymph % (Auto) (20.0-40.0) % Mason % (Auto) (0.0-10.0) % Eos % (Auto) (0.0-4.0) % Baso % (Auto) (0.0-2.0) % Neut # (Auto) (1.8-7.0) K/uL Lymph # (Auto) (1.0-4.3) K/uL Mason # (Auto) (0.0-0.8) K/uL Eos # (Auto) (0.0-0.7) K/uL Baso # (Auto) (0.0-0.2) K/uL Neutrophils % (Manual) (50-75) % Band Neutrophils % (0-2) % Lymphocytes % (Manual) (20-40) % Monocytes % (Manual) (0-10) % Nucleated RBC % (0-0) % Platelet Estimate (NORMAL) Anisocytosis (manual) Target Cells Puncture Site pCO2 (35-45) mm/Hg pO2 (80-100) mm/Hg HCO3 (21-28) mmol/L ABG pH (7.35-7.45) ABG Total CO2 (22-28) mmol/L ABG O2 Saturation (95-98) % ABG Base Excess (-2.0-3.0) mmol/L ABG Hemoglobin (11.7-17.4) g/dL ABG Carboxyhemoglobin (0.5-1.5) % POC ABG HHb (Measured) (0.0-5.0) % ABG Methemoglobin (0.0-3.0) % Erik Test ABG Potassium (3.6-5.2) mmol/L A-a O2 Difference mm/Hg Respiratory Index Hgb O2 Saturation (95.0-98.0) % Sodium (132-148) mmol/l Chloride (98-107) mmol/L Glucose (65-105) mg/dl Lactate (0.7-2.1) mmol/L Vent Mode Mechanical Rate FiO2 % Tidal Volume PEEP Potassium (3.6-5.2) mmol/L Carbon Dioxide (22-30) mmol/L Anion Gap (10-20) BUN (7-17) mg/dL Creatinine (0.7-1.2) mg/dL Est GFR ( Amer) Est GFR (Non-Af Amer) POC Glucose (mg/dL) 347 H 286 H 197 H (65-110) mg/dL Random Glucose (65-105) mg/dL Calcium (8.6-10.4) mg/dl Phosphorus (2.5-4.5) mg/dL Magnesium (1.6-2.3) mg/dL Total Bilirubin (0.2-1.3) mg/dL AST (14-36) U/L ALT (9-52) U/L Alkaline Phosphatase (38-126) U/L Total Protein (6.3-8.3) g/dL Albumin (3.5-5.0) g/dL Globulin (2.2-3.9) gm/dL Albumin/Globulin Ratio (1.0-2.1) Arterial Blood Potassium (3.6-5.2) mmol/L 05/03/18 05/03/18 05/03/18 Range/Units 06:04 05:04 03:57 WBC (4.8-10.8) K/uL RBC (3.80-5.20) Mil/uL Hgb (11.0-16.0) g/dL Hct (34.0-47.0) % MCV (81.0-99.0) fL MCH (27.0-31.0) pg MCHC (33.0-37.0) g/dL RDW (11.5-14.5) % Plt Count (130-400) K/uL MPV (7.2-11.7) fL Neut % (Auto) (50.0-75.0) % Lymph % (Auto) (20.0-40.0) % Mason % (Auto) (0.0-10.0) % Eos % (Auto) (0.0-4.0) % Baso % (Auto) (0.0-2.0) % Neut # (Auto) (1.8-7.0) K/uL Lymph # (Auto) (1.0-4.3) K/uL Mason # (Auto) (0.0-0.8) K/uL Eos # (Auto) (0.0-0.7) K/uL Baso # (Auto) (0.0-0.2) K/uL Neutrophils % (Manual) (50-75) % Band Neutrophils % (0-2) % Lymphocytes % (Manual) (20-40) % Monocytes % (Manual) (0-10) % Nucleated RBC % (0-0) % Platelet Estimate (NORMAL) Anisocytosis (manual) Target Cells Puncture Site pCO2 (35-45) mm/Hg pO2 (80-100) mm/Hg HCO3 (21-28) mmol/L ABG pH (7.35-7.45) ABG Total CO2 (22-28) mmol/L ABG O2 Saturation (95-98) % ABG Base Excess (-2.0-3.0) mmol/L ABG Hemoglobin (11.7-17.4) g/dL ABG Carboxyhemoglobin (0.5-1.5) % POC ABG HHb (Measured) (0.0-5.0) % ABG Methemoglobin (0.0-3.0) % Erik Test ABG Potassium (3.6-5.2) mmol/L A-a O2 Difference mm/Hg Respiratory Index Hgb O2 Saturation (95.0-98.0) % Sodium (132-148) mmol/l Chloride (98-107) mmol/L Glucose (65-105) mg/dl Lactate (0.7-2.1) mmol/L Vent Mode Mechanical Rate FiO2 % Tidal Volume PEEP Potassium (3.6-5.2) mmol/L Carbon Dioxide (22-30) mmol/L Anion Gap (10-20) BUN (7-17) mg/dL Creatinine (0.7-1.2) mg/dL Est GFR ( Amer) Est GFR (Non-Af Amer) POC Glucose (mg/dL) 173 H 164 H 182 H (65-110) mg/dL Random Glucose (65-105) mg/dL Calcium (8.6-10.4) mg/dl Phosphorus (2.5-4.5) mg/dL Magnesium (1.6-2.3) mg/dL Total Bilirubin (0.2-1.3) mg/dL AST (14-36) U/L ALT (9-52) U/L Alkaline Phosphatase (38-126) U/L Total Protein (6.3-8.3) g/dL Albumin (3.5-5.0) g/dL Globulin (2.2-3.9) gm/dL Albumin/Globulin Ratio (1.0-2.1) Arterial Blood Potassium (3.6-5.2) mmol/L 05/03/18 05/03/18 05/03/18 Range/Units 02:57 02:02 01:01 WBC (4.8-10.8) K/uL RBC (3.80-5.20) Mil/uL Hgb (11.0-16.0) g/dL Hct (34.0-47.0) % MCV (81.0-99.0) fL MCH (27.0-31.0) pg MCHC (33.0-37.0) g/dL RDW (11.5-14.5) % Plt Count (130-400) K/uL MPV (7.2-11.7) fL Neut % (Auto) (50.0-75.0) % Lymph % (Auto) (20.0-40.0) % Mason % (Auto) (0.0-10.0) % Eos % (Auto) (0.0-4.0) % Baso % (Auto) (0.0-2.0) % Neut # (Auto) (1.8-7.0) K/uL Lymph # (Auto) (1.0-4.3) K/uL Mason # (Auto) (0.0-0.8) K/uL Eos # (Auto) (0.0-0.7) K/uL Baso # (Auto) (0.0-0.2) K/uL Neutrophils % (Manual) (50-75) % Band Neutrophils % (0-2) % Lymphocytes % (Manual) (20-40) % Monocytes % (Manual) (0-10) % Nucleated RBC % (0-0) % Platelet Estimate (NORMAL) Anisocytosis (manual) Target Cells Puncture Site pCO2 (35-45) mm/Hg pO2 (80-100) mm/Hg HCO3 (21-28) mmol/L ABG pH (7.35-7.45) ABG Total CO2 (22-28) mmol/L ABG O2 Saturation (95-98) % ABG Base Excess (-2.0-3.0) mmol/L ABG Hemoglobin (11.7-17.4) g/dL ABG Carboxyhemoglobin (0.5-1.5) % POC ABG HHb (Measured) (0.0-5.0) % ABG Methemoglobin (0.0-3.0) % Erik Test ABG Potassium (3.6-5.2) mmol/L A-a O2 Difference mm/Hg Respiratory Index Hgb O2 Saturation (95.0-98.0) % Sodium (132-148) mmol/l Chloride (98-107) mmol/L Glucose (65-105) mg/dl Lactate (0.7-2.1) mmol/L Vent Mode Mechanical Rate FiO2 % Tidal Volume PEEP Potassium (3.6-5.2) mmol/L Carbon Dioxide (22-30) mmol/L Anion Gap (10-20) BUN (7-17) mg/dL Creatinine (0.7-1.2) mg/dL Est GFR ( Amer) Est GFR (Non-Af Amer) POC Glucose (mg/dL) 176 H 176 H 146 H (65-110) mg/dL Random Glucose (65-105) mg/dL Calcium (8.6-10.4) mg/dl Phosphorus (2.5-4.5) mg/dL Magnesium (1.6-2.3) mg/dL Total Bilirubin (0.2-1.3) mg/dL AST (14-36) U/L ALT (9-52) U/L Alkaline Phosphatase (38-126) U/L Total Protein (6.3-8.3) g/dL Albumin (3.5-5.0) g/dL Globulin (2.2-3.9) gm/dL Albumin/Globulin Ratio (1.0-2.1) Arterial Blood Potassium (3.6-5.2) mmol/L 05/02/18 05/02/18 05/02/18 Range/Units 23:55 22:02 21:04 WBC (4.8-10.8) K/uL RBC (3.80-5.20) Mil/uL Hgb (11.0-16.0) g/dL Hct (34.0-47.0) % MCV (81.0-99.0) fL MCH (27.0-31.0) pg MCHC (33.0-37.0) g/dL RDW (11.5-14.5) % Plt Count (130-400) K/uL MPV (7.2-11.7) fL Neut % (Auto) (50.0-75.0) % Lymph % (Auto) (20.0-40.0) % Mason % (Auto) (0.0-10.0) % Eos % (Auto) (0.0-4.0) % Baso % (Auto) (0.0-2.0) % Neut # (Auto) (1.8-7.0) K/uL Lymph # (Auto) (1.0-4.3) K/uL Mason # (Auto) (0.0-0.8) K/uL Eos # (Auto) (0.0-0.7) K/uL Baso # (Auto) (0.0-0.2) K/uL Neutrophils % (Manual) (50-75) % Band Neutrophils % (0-2) % Lymphocytes % (Manual) (20-40) % Monocytes % (Manual) (0-10) % Nucleated RBC % (0-0) % Platelet Estimate (NORMAL) Anisocytosis (manual) Target Cells Puncture Site pCO2 (35-45) mm/Hg pO2 (80-100) mm/Hg HCO3 (21-28) mmol/L ABG pH (7.35-7.45) ABG Total CO2 (22-28) mmol/L ABG O2 Saturation (95-98) % ABG Base Excess (-2.0-3.0) mmol/L ABG Hemoglobin (11.7-17.4) g/dL ABG Carboxyhemoglobin (0.5-1.5) % POC ABG HHb (Measured) (0.0-5.0) % ABG Methemoglobin (0.0-3.0) % Erik Test ABG Potassium (3.6-5.2) mmol/L A-a O2 Difference mm/Hg Respiratory Index Hgb O2 Saturation (95.0-98.0) % Sodium (132-148) mmol/l Chloride (98-107) mmol/L Glucose (65-105) mg/dl Lactate (0.7-2.1) mmol/L Vent Mode Mechanical Rate FiO2 % Tidal Volume PEEP Potassium (3.6-5.2) mmol/L Carbon Dioxide (22-30) mmol/L Anion Gap (10-20) BUN (7-17) mg/dL Creatinine (0.7-1.2) mg/dL Est GFR ( Amer) Est GFR (Non-Af Amer) POC Glucose (mg/dL) 164 H 192 H 171 H (65-110) mg/dL Random Glucose (65-105) mg/dL Calcium (8.6-10.4) mg/dl Phosphorus (2.5-4.5) mg/dL Magnesium (1.6-2.3) mg/dL Total Bilirubin (0.2-1.3) mg/dL AST (14-36) U/L ALT (9-52) U/L Alkaline Phosphatase (38-126) U/L Total Protein (6.3-8.3) g/dL Albumin (3.5-5.0) g/dL Globulin (2.2-3.9) gm/dL Albumin/Globulin Ratio (1.0-2.1) Arterial Blood Potassium (3.6-5.2) mmol/L 05/02/18 05/02/18 05/02/18 Range/Units 20:09 18:54 18:03 WBC (4.8-10.8) K/uL RBC (3.80-5.20) Mil/uL Hgb (11.0-16.0) g/dL Hct (34.0-47.0) % MCV (81.0-99.0) fL MCH (27.0-31.0) pg MCHC (33.0-37.0) g/dL RDW (11.5-14.5) % Plt Count (130-400) K/uL MPV (7.2-11.7) fL Neut % (Auto) (50.0-75.0) % Lymph % (Auto) (20.0-40.0) % Mason % (Auto) (0.0-10.0) % Eos % (Auto) (0.0-4.0) % Baso % (Auto) (0.0-2.0) % Neut # (Auto) (1.8-7.0) K/uL Lymph # (Auto) (1.0-4.3) K/uL Mason # (Auto) (0.0-0.8) K/uL Eos # (Auto) (0.0-0.7) K/uL Baso # (Auto) (0.0-0.2) K/uL Neutrophils % (Manual) (50-75) % Band Neutrophils % (0-2) % Lymphocytes % (Manual) (20-40) % Monocytes % (Manual) (0-10) % Nucleated RBC % (0-0) % Platelet Estimate (NORMAL) Anisocytosis (manual) Target Cells Puncture Site pCO2 (35-45) mm/Hg pO2 (80-100) mm/Hg HCO3 (21-28) mmol/L ABG pH (7.35-7.45) ABG Total CO2 (22-28) mmol/L ABG O2 Saturation (95-98) % ABG Base Excess (-2.0-3.0) mmol/L ABG Hemoglobin (11.7-17.4) g/dL ABG Carboxyhemoglobin (0.5-1.5) % POC ABG HHb (Measured) (0.0-5.0) % ABG Methemoglobin (0.0-3.0) % Erik Test ABG Potassium (3.6-5.2) mmol/L A-a O2 Difference mm/Hg Respiratory Index Hgb O2 Saturation (95.0-98.0) % Sodium (132-148) mmol/l Chloride (98-107) mmol/L Glucose (65-105) mg/dl Lactate (0.7-2.1) mmol/L Vent Mode Mechanical Rate FiO2 % Tidal Volume PEEP Potassium (3.6-5.2) mmol/L Carbon Dioxide (22-30) mmol/L Anion Gap (10-20) BUN (7-17) mg/dL Creatinine (0.7-1.2) mg/dL Est GFR ( Amer) Est GFR (Non-Af Amer) POC Glucose (mg/dL) 200 H 190 H 203 H (65-110) mg/dL Random Glucose (65-105) mg/dL Calcium (8.6-10.4) mg/dl Phosphorus (2.5-4.5) mg/dL Magnesium (1.6-2.3) mg/dL Total Bilirubin (0.2-1.3) mg/dL AST (14-36) U/L ALT (9-52) U/L Alkaline Phosphatase (38-126) U/L Total Protein (6.3-8.3) g/dL Albumin (3.5-5.0) g/dL Globulin (2.2-3.9) gm/dL Albumin/Globulin Ratio (1.0-2.1) Arterial Blood Potassium (3.6-5.2) mmol/L 05/02/18 05/02/18 05/02/18 Range/Units 17:02 15:43 14:05 WBC (4.8-10.8) K/uL RBC (3.80-5.20) Mil/uL Hgb (11.0-16.0) g/dL Hct (34.0-47.0) % MCV (81.0-99.0) fL MCH (27.0-31.0) pg MCHC (33.0-37.0) g/dL RDW (11.5-14.5) % Plt Count (130-400) K/uL MPV (7.2-11.7) fL Neut % (Auto) (50.0-75.0) % Lymph % (Auto) (20.0-40.0) % Mason % (Auto) (0.0-10.0) % Eos % (Auto) (0.0-4.0) % Baso % (Auto) (0.0-2.0) % Neut # (Auto) (1.8-7.0) K/uL Lymph # (Auto) (1.0-4.3) K/uL Mason # (Auto) (0.0-0.8) K/uL Eos # (Auto) (0.0-0.7) K/uL Baso # (Auto) (0.0-0.2) K/uL Neutrophils % (Manual) (50-75) % Band Neutrophils % (0-2) % Lymphocytes % (Manual) (20-40) % Monocytes % (Manual) (0-10) % Nucleated RBC % (0-0) % Platelet Estimate (NORMAL) Anisocytosis (manual) Target Cells Puncture Site pCO2 (35-45) mm/Hg pO2 (80-100) mm/Hg HCO3 (21-28) mmol/L ABG pH (7.35-7.45) ABG Total CO2 (22-28) mmol/L ABG O2 Saturation (95-98) % ABG Base Excess (-2.0-3.0) mmol/L ABG Hemoglobin (11.7-17.4) g/dL ABG Carboxyhemoglobin (0.5-1.5) % POC ABG HHb (Measured) (0.0-5.0) % ABG Methemoglobin (0.0-3.0) % Erik Test ABG Potassium (3.6-5.2) mmol/L A-a O2 Difference mm/Hg Respiratory Index Hgb O2 Saturation (95.0-98.0) % Sodium (132-148) mmol/l Chloride (98-107) mmol/L Glucose (65-105) mg/dl Lactate (0.7-2.1) mmol/L Vent Mode Mechanical Rate FiO2 % Tidal Volume PEEP Potassium (3.6-5.2) mmol/L Carbon Dioxide (22-30) mmol/L Anion Gap (10-20) BUN (7-17) mg/dL Creatinine (0.7-1.2) mg/dL Est GFR ( Amer) Est GFR (Non-Af Amer) POC Glucose (mg/dL) 207 H 226 H 237 H (65-110) mg/dL Random Glucose (65-105) mg/dL Calcium (8.6-10.4) mg/dl Phosphorus (2.5-4.5) mg/dL Magnesium (1.6-2.3) mg/dL Total Bilirubin (0.2-1.3) mg/dL AST (14-36) U/L ALT (9-52) U/L Alkaline Phosphatase (38-126) U/L Total Protein (6.3-8.3) g/dL Albumin (3.5-5.0) g/dL Globulin (2.2-3.9) gm/dL Albumin/Globulin Ratio (1.0-2.1) Arterial Blood Potassium (3.6-5.2) mmol/L 05/02/18 05/02/18 05/02/18 Range/Units 12:16 11:01 09:58 WBC (4.8-10.8) K/uL RBC (3.80-5.20) Mil/uL Hgb (11.0-16.0) g/dL Hct (34.0-47.0) % MCV (81.0-99.0) fL MCH (27.0-31.0) pg MCHC (33.0-37.0) g/dL RDW (11.5-14.5) % Plt Count (130-400) K/uL MPV (7.2-11.7) fL Neut % (Auto) (50.0-75.0) % Lymph % (Auto) (20.0-40.0) % Mason % (Auto) (0.0-10.0) % Eos % (Auto) (0.0-4.0) % Baso % (Auto) (0.0-2.0) % Neut # (Auto) (1.8-7.0) K/uL Lymph # (Auto) (1.0-4.3) K/uL Mason # (Auto) (0.0-0.8) K/uL Eos # (Auto) (0.0-0.7) K/uL Baso # (Auto) (0.0-0.2) K/uL Neutrophils % (Manual) (50-75) % Band Neutrophils % (0-2) % Lymphocytes % (Manual) (20-40) % Monocytes % (Manual) (0-10) % Nucleated RBC % (0-0) % Platelet Estimate (NORMAL) Anisocytosis (manual) Target Cells Puncture Site pCO2 (35-45) mm/Hg pO2 (80-100) mm/Hg HCO3 (21-28) mmol/L ABG pH (7.35-7.45) ABG Total CO2 (22-28) mmol/L ABG O2 Saturation (95-98) % ABG Base Excess (-2.0-3.0) mmol/L ABG Hemoglobin (11.7-17.4) g/dL ABG Carboxyhemoglobin (0.5-1.5) % POC ABG HHb (Measured) (0.0-5.0) % ABG Methemoglobin (0.0-3.0) % Erik Test ABG Potassium (3.6-5.2) mmol/L A-a O2 Difference mm/Hg Respiratory Index Hgb O2 Saturation (95.0-98.0) % Sodium (132-148) mmol/l Chloride (98-107) mmol/L Glucose (65-105) mg/dl Lactate (0.7-2.1) mmol/L Vent Mode Mechanical Rate FiO2 % Tidal Volume PEEP Potassium (3.6-5.2) mmol/L Carbon Dioxide (22-30) mmol/L Anion Gap (10-20) BUN (7-17) mg/dL Creatinine (0.7-1.2) mg/dL Est GFR ( Amer) Est GFR (Non-Af Amer) POC Glucose (mg/dL) 285 H 287 H 322 H (65-110) mg/dL Random Glucose (65-105) mg/dL Calcium (8.6-10.4) mg/dl Phosphorus (2.5-4.5) mg/dL Magnesium (1.6-2.3) mg/dL Total Bilirubin (0.2-1.3) mg/dL AST (14-36) U/L ALT (9-52) U/L Alkaline Phosphatase (38-126) U/L Total Protein (6.3-8.3) g/dL Albumin (3.5-5.0) g/dL Globulin (2.2-3.9) gm/dL Albumin/Globulin Ratio (1.0-2.1) Arterial Blood Potassium (3.6-5.2) mmol/L 05/02/18 05/02/18 05/02/18 Range/Units 09:00 08:03 06:51 WBC (4.8-10.8) K/uL RBC (3.80-5.20) Mil/uL Hgb (11.0-16.0) g/dL Hct (34.0-47.0) % MCV (81.0-99.0) fL MCH (27.0-31.0) pg MCHC (33.0-37.0) g/dL RDW (11.5-14.5) % Plt Count (130-400) K/uL MPV (7.2-11.7) fL Neut % (Auto) (50.0-75.0) % Lymph % (Auto) (20.0-40.0) % Mason % (Auto) (0.0-10.0) % Eos % (Auto) (0.0-4.0) % Baso % (Auto) (0.0-2.0) % Neut # (Auto) (1.8-7.0) K/uL Lymph # (Auto) (1.0-4.3) K/uL Mason # (Auto) (0.0-0.8) K/uL Eos # (Auto) (0.0-0.7) K/uL Baso # (Auto) (0.0-0.2) K/uL Neutrophils % (Manual) (50-75) % Band Neutrophils % (0-2) % Lymphocytes % (Manual) (20-40) % Monocytes % (Manual) (0-10) % Nucleated RBC % (0-0) % Platelet Estimate (NORMAL) Anisocytosis (manual) Target Cells Puncture Site pCO2 (35-45) mm/Hg pO2 (80-100) mm/Hg HCO3 (21-28) mmol/L ABG pH (7.35-7.45) ABG Total CO2 (22-28) mmol/L ABG O2 Saturation (95-98) % ABG Base Excess (-2.0-3.0) mmol/L ABG Hemoglobin (11.7-17.4) g/dL ABG Carboxyhemoglobin (0.5-1.5) % POC ABG HHb (Measured) (0.0-5.0) % ABG Methemoglobin (0.0-3.0) % Erik Test ABG Potassium (3.6-5.2) mmol/L A-a O2 Difference mm/Hg Respiratory Index Hgb O2 Saturation (95.0-98.0) % Sodium (132-148) mmol/l Chloride (98-107) mmol/L Glucose (65-105) mg/dl Lactate (0.7-2.1) mmol/L Vent Mode Mechanical Rate FiO2 % Tidal Volume PEEP Potassium (3.6-5.2) mmol/L Carbon Dioxide (22-30) mmol/L Anion Gap (10-20) BUN (7-17) mg/dL Creatinine (0.7-1.2) mg/dL Est GFR ( Amer) Est GFR (Non-Af Amer) POC Glucose (mg/dL) 365 H 383 H 464 H* (65-110) mg/dL Random Glucose (65-105) mg/dL Calcium (8.6-10.4) mg/dl Phosphorus (2.5-4.5) mg/dL Magnesium (1.6-2.3) mg/dL Total Bilirubin (0.2-1.3) mg/dL AST (14-36) U/L ALT (9-52) U/L Alkaline Phosphatase (38-126) U/L Total Protein (6.3-8.3) g/dL Albumin (3.5-5.0) g/dL Globulin (2.2-3.9) gm/dL Albumin/Globulin Ratio (1.0-2.1) Arterial Blood Potassium (3.6-5.2) mmol/L 05/02/18 05/02/18 05/02/18 Range/Units 06:12 05:24 03:53 WBC (4.8-10.8) K/uL RBC (3.80-5.20) Mil/uL Hgb (11.0-16.0) g/dL Hct (34.0-47.0) % MCV (81.0-99.0) fL MCH (27.0-31.0) pg MCHC (33.0-37.0) g/dL RDW (11.5-14.5) % Plt Count (130-400) K/uL MPV (7.2-11.7) fL Neut % (Auto) (50.0-75.0) % Lymph % (Auto) (20.0-40.0) % Mason % (Auto) (0.0-10.0) % Eos % (Auto) (0.0-4.0) % Baso % (Auto) (0.0-2.0) % Neut # (Auto) (1.8-7.0) K/uL Lymph # (Auto) (1.0-4.3) K/uL Mason # (Auto) (0.0-0.8) K/uL Eos # (Auto) (0.0-0.7) K/uL Baso # (Auto) (0.0-0.2) K/uL Neutrophils % (Manual) (50-75) % Band Neutrophils % (0-2) % Lymphocytes % (Manual) (20-40) % Monocytes % (Manual) (0-10) % Nucleated RBC % (0-0) % Platelet Estimate (NORMAL) Anisocytosis (manual) Target Cells Puncture Site pCO2 (35-45) mm/Hg pO2 (80-100) mm/Hg HCO3 (21-28) mmol/L ABG pH (7.35-7.45) ABG Total CO2 (22-28) mmol/L ABG O2 Saturation (95-98) % ABG Base Excess (-2.0-3.0) mmol/L ABG Hemoglobin (11.7-17.4) g/dL ABG Carboxyhemoglobin (0.5-1.5) % POC ABG HHb (Measured) (0.0-5.0) % ABG Methemoglobin (0.0-3.0) % Erik Test ABG Potassium (3.6-5.2) mmol/L A-a O2 Difference mm/Hg Respiratory Index Hgb O2 Saturation (95.0-98.0) % Sodium (132-148) mmol/l Chloride (98-107) mmol/L Glucose (65-105) mg/dl Lactate (0.7-2.1) mmol/L Vent Mode Mechanical Rate FiO2 % Tidal Volume PEEP Potassium (3.6-5.2) mmol/L Carbon Dioxide (22-30) mmol/L Anion Gap (10-20) BUN (7-17) mg/dL Creatinine (0.7-1.2) mg/dL Est GFR ( Amer) Est GFR (Non-Af Amer) POC Glucose (mg/dL) > 500 H* > 500 H* > 500 H* (65-110) mg/dL Random Glucose (65-105) mg/dL Calcium (8.6-10.4) mg/dl Phosphorus (2.5-4.5) mg/dL Magnesium (1.6-2.3) mg/dL Total Bilirubin (0.2-1.3) mg/dL AST (14-36) U/L ALT (9-52) U/L Alkaline Phosphatase (38-126) U/L Total Protein (6.3-8.3) g/dL Albumin (3.5-5.0) g/dL Globulin (2.2-3.9) gm/dL Albumin/Globulin Ratio (1.0-2.1) Arterial Blood Potassium (3.6-5.2) mmol/L Laboratory Results - last 24 hr 05/02/18 05/02/18 05/02/18 03:53 05:24 06:12 WBC RBC Hgb Hct MCV MCH MCHC RDW Plt Count MPV Neut % (Auto) Lymph % (Auto) Mason % (Auto) Eos % (Auto) Baso % (Auto) Neut # (Auto) Lymph # (Auto) Mason # (Auto) Eos # (Auto) Baso # (Auto) Neutrophils % (Manual) Band Neutrophils % Lymphocytes % (Manual) Monocytes % (Manual) Nucleated RBC % Platelet Estimate Anisocytosis (manual) Target Cells Puncture Site pCO2 pO2 HCO3 ABG pH ABG Total CO2 ABG O2 Saturation ABG Base Excess ABG Hemoglobin ABG Carboxyhemoglobin POC ABG HHb (Measured) ABG Methemoglobin Erik Test ABG Potassium A-a O2 Difference Respiratory Index Hgb O2 Saturation Sodium Chloride Glucose Lactate Vent Mode Mechanical Rate FiO2 Tidal Volume PEEP Potassium Carbon Dioxide Anion Gap BUN Creatinine Est GFR ( Amer) Est GFR (Non-Af Amer) POC Glucose (mg/dL) > 500 H* > 500 H* > 500 H* Random Glucose Calcium Phosphorus Magnesium Total Bilirubin AST ALT Alkaline Phosphatase Total Protein Albumin Globulin Albumin/Globulin Ratio Arterial Blood Potassium 05/02/18 05/02/18 05/02/18 06:51 08:03 09:00 WBC RBC Hgb Hct MCV MCH MCHC RDW Plt Count MPV Neut % (Auto) Lymph % (Auto) Mason % (Auto) Eos % (Auto) Baso % (Auto) Neut # (Auto) Lymph # (Auto) Mason # (Auto) Eos # (Auto) Baso # (Auto) Neutrophils % (Manual) Band Neutrophils % Lymphocytes % (Manual) Monocytes % (Manual) Nucleated RBC % Platelet Estimate Anisocytosis (manual) Target Cells Puncture Site pCO2 pO2 HCO3 ABG pH ABG Total CO2 ABG O2 Saturation ABG Base Excess ABG Hemoglobin ABG Carboxyhemoglobin POC ABG HHb (Measured) ABG Methemoglobin Erik Test ABG Potassium A-a O2 Difference Respiratory Index Hgb O2 Saturation Sodium Chloride Glucose Lactate Vent Mode Mechanical Rate FiO2 Tidal Volume PEEP Potassium Carbon Dioxide Anion Gap BUN Creatinine Est GFR ( Amer) Est GFR (Non-Af Amer) POC Glucose (mg/dL) 464 H* 383 H 365 H Random Glucose Calcium Phosphorus Magnesium Total Bilirubin AST ALT Alkaline Phosphatase Total Protein Albumin Globulin Albumin/Globulin Ratio Arterial Blood Potassium 05/02/18 05/02/18 05/02/18 09:58 11:01 12:16 WBC RBC Hgb Hct MCV MCH MCHC RDW Plt Count MPV Neut % (Auto) Lymph % (Auto) Mason % (Auto) Eos % (Auto) Baso % (Auto) Neut # (Auto) Lymph # (Auto) Mason # (Auto) Eos # (Auto) Baso # (Auto) Neutrophils % (Manual) Band Neutrophils % Lymphocytes % (Manual) Monocytes % (Manual) Nucleated RBC % Platelet Estimate Anisocytosis (manual) Target Cells Puncture Site pCO2 pO2 HCO3 ABG pH ABG Total CO2 ABG O2 Saturation ABG Base Excess ABG Hemoglobin ABG Carboxyhemoglobin POC ABG HHb (Measured) ABG Methemoglobin Erik Test ABG Potassium A-a O2 Difference Respiratory Index Hgb O2 Saturation Sodium Chloride Glucose Lactate Vent Mode Mechanical Rate FiO2 Tidal Volume PEEP Potassium Carbon Dioxide Anion Gap BUN Creatinine Est GFR ( Amer) Est GFR (Non-Af Amer) POC Glucose (mg/dL) 322 H 287 H 285 H Random Glucose Calcium Phosphorus Magnesium Total Bilirubin AST ALT Alkaline Phosphatase Total Protein Albumin Globulin Albumin/Globulin Ratio Arterial Blood Potassium 05/02/18 05/02/18 05/02/18 14:05 15:43 17:02 WBC RBC Hgb Hct MCV MCH MCHC RDW Plt Count MPV Neut % (Auto) Lymph % (Auto) Mason % (Auto) Eos % (Auto) Baso % (Auto) Neut # (Auto) Lymph # (Auto) Mason # (Auto) Eos # (Auto) Baso # (Auto) Neutrophils % (Manual) Band Neutrophils % Lymphocytes % (Manual) Monocytes % (Manual) Nucleated RBC % Platelet Estimate Anisocytosis (manual) Target Cells Puncture Site pCO2 pO2 HCO3 ABG pH ABG Total CO2 ABG O2 Saturation ABG Base Excess ABG Hemoglobin ABG Carboxyhemoglobin POC ABG HHb (Measured) ABG Methemoglobin Erik Test ABG Potassium A-a O2 Difference Respiratory Index Hgb O2 Saturation Sodium Chloride Glucose Lactate Vent Mode Mechanical Rate FiO2 Tidal Volume PEEP Potassium Carbon Dioxide Anion Gap BUN Creatinine Est GFR ( Amer) Est GFR (Non-Af Amer) POC Glucose (mg/dL) 237 H 226 H 207 H Random Glucose Calcium Phosphorus Magnesium Total Bilirubin AST ALT Alkaline Phosphatase Total Protein Albumin Globulin Albumin/Globulin Ratio Arterial Blood Potassium 05/02/18 05/02/18 05/02/18 18:03 18:54 20:09 WBC RBC Hgb Hct MCV MCH MCHC RDW Plt Count MPV Neut % (Auto) Lymph % (Auto) Mason % (Auto) Eos % (Auto) Baso % (Auto) Neut # (Auto) Lymph # (Auto) Mason # (Auto) Eos # (Auto) Baso # (Auto) Neutrophils % (Manual) Band Neutrophils % Lymphocytes % (Manual) Monocytes % (Manual) Nucleated RBC % Platelet Estimate Anisocytosis (manual) Target Cells Puncture Site pCO2 pO2 HCO3 ABG pH ABG Total CO2 ABG O2 Saturation ABG Base Excess ABG Hemoglobin ABG Carboxyhemoglobin POC ABG HHb (Measured) ABG Methemoglobin Erik Test ABG Potassium A-a O2 Difference Respiratory Index Hgb O2 Saturation Sodium Chloride Glucose Lactate Vent Mode Mechanical Rate FiO2 Tidal Volume PEEP Potassium Carbon Dioxide Anion Gap BUN Creatinine Est GFR ( Amer) Est GFR (Non-Af Amer) POC Glucose (mg/dL) 203 H 190 H 200 H Random Glucose Calcium Phosphorus Magnesium Total Bilirubin AST ALT Alkaline Phosphatase Total Protein Albumin Globulin Albumin/Globulin Ratio Arterial Blood Potassium 05/02/18 05/02/18 05/02/18 21:04 22:02 23:55 WBC RBC Hgb Hct MCV MCH MCHC RDW Plt Count MPV Neut % (Auto) Lymph % (Auto) Mason % (Auto) Eos % (Auto) Baso % (Auto) Neut # (Auto) Lymph # (Auto) Mason # (Auto) Eos # (Auto) Baso # (Auto) Neutrophils % (Manual) Band Neutrophils % Lymphocytes % (Manual) Monocytes % (Manual) Nucleated RBC % Platelet Estimate Anisocytosis (manual) Target Cells Puncture Site pCO2 pO2 HCO3 ABG pH ABG Total CO2 ABG O2 Saturation ABG Base Excess ABG Hemoglobin ABG Carboxyhemoglobin POC ABG HHb (Measured) ABG Methemoglobin Erik Test ABG Potassium A-a O2 Difference Respiratory Index Hgb O2 Saturation Sodium Chloride Glucose Lactate Vent Mode Mechanical Rate FiO2 Tidal Volume PEEP Potassium Carbon Dioxide Anion Gap BUN Creatinine Est GFR ( Amer) Est GFR (Non-Af Amer) POC Glucose (mg/dL) 171 H 192 H 164 H Random Glucose Calcium Phosphorus Magnesium Total Bilirubin AST ALT Alkaline Phosphatase Total Protein Albumin Globulin Albumin/Globulin Ratio Arterial Blood Potassium 05/03/18 05/03/18 05/03/18 01:01 02:02 02:57 WBC RBC Hgb Hct MCV MCH MCHC RDW Plt Count MPV Neut % (Auto) Lymph % (Auto) Mason % (Auto) Eos % (Auto) Baso % (Auto) Neut # (Auto) Lymph # (Auto) Mason # (Auto) Eos # (Auto) Baso # (Auto) Neutrophils % (Manual) Band Neutrophils % Lymphocytes % (Manual) Monocytes % (Manual) Nucleated RBC % Platelet Estimate Anisocytosis (manual) Target Cells Puncture Site pCO2 pO2 HCO3 ABG pH ABG Total CO2 ABG O2 Saturation ABG Base Excess ABG Hemoglobin ABG Carboxyhemoglobin POC ABG HHb (Measured) ABG Methemoglobin Erik Test ABG Potassium A-a O2 Difference Respiratory Index Hgb O2 Saturation Sodium Chloride Glucose Lactate Vent Mode Mechanical Rate FiO2 Tidal Volume PEEP Potassium Carbon Dioxide Anion Gap BUN Creatinine Est GFR ( Amer) Est GFR (Non-Af Amer) POC Glucose (mg/dL) 146 H 176 H 176 H Random Glucose Calcium Phosphorus Magnesium Total Bilirubin AST ALT Alkaline Phosphatase Total Protein Albumin Globulin Albumin/Globulin Ratio Arterial Blood Potassium 05/03/18 05/03/1818 03:57 05:04 06:04 WBC RBC Hgb Hct MCV MCH MCHC RDW Plt Count MPV Neut % (Auto) Lymph % (Auto) Mason % (Auto) Eos % (Auto) Baso % (Auto) Neut # (Auto) Lymph # (Auto) Mason # (Auto) Eos # (Auto) Baso # (Auto) Neutrophils % (Manual) Band Neutrophils % Lymphocytes % (Manual) Monocytes % (Manual) Nucleated RBC % Platelet Estimate Anisocytosis (manual) Target Cells Puncture Site pCO2 pO2 HCO3 ABG pH ABG Total CO2 ABG O2 Saturation ABG Base Excess ABG Hemoglobin ABG Carboxyhemoglobin POC ABG HHb (Measured) ABG Methemoglobin Erik Test ABG Potassium A-a O2 Difference Respiratory Index Hgb O2 Saturation Sodium Chloride Glucose Lactate Vent Mode Mechanical Rate FiO2 Tidal Volume PEEP Potassium Carbon Dioxide Anion Gap BUN Creatinine Est GFR ( Amer) Est GFR (Non-Af Amer) POC Glucose (mg/dL) 182 H 164 H 173 H Random Glucose Calcium Phosphorus Magnesium Total Bilirubin AST ALT Alkaline Phosphatase Total Protein Albumin Globulin Albumin/Globulin Ratio Arterial Blood Potassium 05/03/18 05/03/18 05/04/18 07:17 17:44 00:14 WBC RBC Hgb Hct MCV MCH MCHC RDW Plt Count MPV Neut % (Auto) Lymph % (Auto) Mason % (Auto) Eos % (Auto) Baso % (Auto) Neut # (Auto) Lymph # (Auto) Mason # (Auto) Eos # (Auto) Baso # (Auto) Neutrophils % (Manual) Band Neutrophils % Lymphocytes % (Manual) Monocytes % (Manual) Nucleated RBC % Platelet Estimate Anisocytosis (manual) Target Cells Puncture Site pCO2 pO2 HCO3 ABG pH ABG Total CO2 ABG O2 Saturation ABG Base Excess ABG Hemoglobin ABG Carboxyhemoglobin POC ABG HHb (Measured) ABG Methemoglobin Erik Test ABG Potassium A-a O2 Difference Respiratory Index Hgb O2 Saturation Sodium Chloride Glucose Lactate Vent Mode Mechanical Rate FiO2 Tidal Volume PEEP Potassium Carbon Dioxide Anion Gap BUN Creatinine Est GFR ( Amer) Est GFR (Non-Af Amer) POC Glucose (mg/dL) 197 H 286 H 347 H Random Glucose Calcium Phosphorus Magnesium Total Bilirubin AST ALT Alkaline Phosphatase Total Protein Albumin Globulin Albumin/Globulin Ratio Arterial Blood Potassium 05/04/18 05/04/18 05/04/18 05:55 06:14 06:28 WBC 24.7 H RBC 4.36 Hgb 11.3 Hct 33.8 L MCV 77.5 L MCH 26.0 L MCHC 33.5 RDW 15.7 H Plt Count 175 MPV 11.2 Neut % (Auto) 90.2 H Lymph % (Auto) 5.4 L Mason % (Auto) 4.2 Eos % (Auto) 0.0 Baso % (Auto) 0.2 Neut # (Auto) 22.3 H Lymph # (Auto) 1.3 Mason # (Auto) 1.0 H Eos # (Auto) 0.0 Baso # (Auto) 0.0 Neutrophils % (Manual) 72 Band Neutrophils % 19 H* Lymphocytes % (Manual) 7 L Monocytes % (Manual) 2 Nucleated RBC % 1 H Platelet Estimate Normal Anisocytosis (manual) Slight Target Cells Slight Puncture Site Rradial pCO2 25 L pO2 118 H HCO3 27.2 ABG pH 7.58 H ABG Total CO2 24.2 ABG O2 Saturation 100.3 H ABG Base Excess 2.8 ABG Hemoglobin ABG Carboxyhemoglobin POC ABG HHb (Measured) ABG Methemoglobin Erik Test Pos ABG Potassium 3.9 A-a O2 Difference 207.0 Respiratory Index 1.8 Hgb O2 Saturation Sodium 152.0 H Chloride 123.0 H Glucose 341 H Lactate 2.8 H Vent Mode Prvc Mechanical Rate 24 FiO2 50.0 Tidal Volume 500 PEEP 5 Potassium Carbon Dioxide Anion Gap BUN Creatinine Est GFR ( Amer) Est GFR (Non-Af Amer) POC Glucose (mg/dL) 298 H Random Glucose Calcium Phosphorus Magnesium Total Bilirubin AST ALT Alkaline Phosphatase Total Protein Albumin Globulin Albumin/Globulin Ratio Arterial Blood Potassium 3.9 05/04/18 05/04/18 05/04/18 06:28 11:06 11:35 WBC RBC Hgb Hct MCV MCH MCHC RDW Plt Count MPV Neut % (Auto) Lymph % (Auto) Mason % (Auto) Eos % (Auto) Baso % (Auto) Neut # (Auto) Lymph # (Auto) Mason # (Auto) Eos # (Auto) Baso # (Auto) Neutrophils % (Manual) Band Neutrophils % Lymphocytes % (Manual) Monocytes % (Manual) Nucleated RBC % Platelet Estimate Anisocytosis (manual) Target Cells Puncture Site Lb pCO2 32 L pO2 112 H HCO3 25.6 ABG pH 7.48 H ABG Total CO2 24.8 ABG O2 Saturation 99.8 H ABG Base Excess 0.9 ABG Hemoglobin 12.4 ABG Carboxyhemoglobin 1.8 H POC ABG HHb (Measured) 0.2 ABG Methemoglobin 1.4 Erik Test Na ABG Potassium A-a O2 Difference 205.0 Respiratory Index 1.8 Hgb O2 Saturation 96.5 Sodium 151 H Chloride 119 H Glucose Lactate Vent Mode Mechanical Rate 14 FiO2 50.0 Tidal Volume 500 PEEP 5 Potassium 3.8 Carbon Dioxide 22 Anion Gap 13 BUN 34 H Creatinine 1.4 H Est GFR ( Amer) 48 Est GFR (Non-Af Amer) 39 POC Glucose (mg/dL) 261 H Random Glucose 306 H Calcium 8.1 L Phosphorus 2.5 Magnesium 2.1 Total Bilirubin 0.7 AST 96 H D ALT 209 H D Alkaline Phosphatase 109 Total Protein 5.4 L Albumin 2.7 L Globulin 2.7 Albumin/Globulin Ratio 1.0 Arterial Blood Potassium Attending/Attestation - Attestation I have personally seen and examined this patient.: Yes I have fully participated in the care of the patient.: Yes I have reviewed all pertinent clinical information: Yes Notes (Text): 05/04/18 18:19 patient seen and examined in the intensive care unit. Previous events noted. On ventilatory support No change in neuro status as per neurology For MRI of brain Continue IV antibiotics as per ID Follow-up culture and sensitivity Follow-up chest x-ray
--- NOTE | 2018-05-04 10:49 | RAD ---
Date of service: 05/04/2018 HISTORY: vent/ff up COMPARISON: 05/03/2018 FINDINGS: LUNGS: Prior consolidation right lung base further improved. Minimal low-density residual hazy opacity here present. Interval improved aeration left lung base. Left infrahilar peribronchial thickening noted likely in part accentuated by the summation of extrinsic devices projecting over this area as well. A concomitant peribronchial thickening bronchitis-possible. Endotracheal tube tip 4 to 5 cm cephalad to aiden. NG tube coursing along stomach PLEURA: No significant pleural effusion identified, no pneumothorax apparent. CARDIOVASCULAR: No aortic atherosclerotic calcification present. Normal cardiac size. No pulmonary vascular congestion. OSSEOUS STRUCTURES: No significant abnormalities. VISUALIZED UPPER ABDOMEN: Normal. OTHER FINDINGS: None. IMPRESSION: Interval improved aeration at both lung bases-as detailed above. Support lines and tubes appear satisfactory as above.
--- NOTE | 2018-05-04 11:02 | CP.PCM.PN ---
Subjective - Date & Time of Evaluation Date of Evaluation: 05/04/18 Time of Evaluation: 11:00 - Subjective Subjective: RENAL FOLLOW UP HPI: 52 year F w/ unknown medical hx that was reportedly found unresponsive. EMS was activated she was intubated and brought to ER. She was found to be hypertensive and code stroke was called. SHe was subsequently admitted to ICU for further evaluation. 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 No family was available for hx at the time of evaluation and all hx is from chart. ROS: un able to obtain pt intubated and comatose Surgical hx: No known surgeries Medical hx: No known prior medical history Allergies: NKDA Social: EtOH use unknown if any ivdu Family Hx: No known family hx Medications: No home meds pe: vs as below gen: intubated and comatose sclear: anicteric op: ET tube neck: supple cv: +s1+s2 no rub lungs: reduced at bases, + mechanical bs abd: soft, no organomegaly ext: no edema neuro: intubated not responsive psych: no responsive labs and imaging reviewed imp: ARF/Acidosis/ Sepsis/Anoxic injury/ Sepsis/ Pneumonia/ alcoholic ketoacidosis/cerebral edema/hanging plan: ARF: IMPROVING seems to be consistent ATN - ischemic v septic. Agree w/ continue IVF as NS instead on 1/2 NS as has cerebral edema, prefer to keep serum Na on higher side. good UOP. no acute need for dialysis Acidosis 2/2 to elevated lactic acid + dka +alcoholism: IMPROVED . glycemic control. added thiamine 100 mg IV daily Abx per primary team Pall are, neurology following d/w ICU team Objective - Vital Signs/Intake and Output Vital Signs (last 24 hours): Temp Pulse Resp BP Pulse Ox 99.4 F 64 14 130/72 100 05/04/18 08:00 05/04/18 10:09 05/04/18 10:09 05/04/18 10:09 05/04/18 10:09 Intake and Output: 05/04/18 05/04/18 06:59 18:59 Intake Total 935 150 Output Total 520 100 Balance 415 50 - Medications Medications: Current Medications Albuterol/Ipratropium (Duoneb 3 Mg/0.5 Mg (3 Ml) Ud) 3 ml INH RQ4 [facility] Last Admin: 05/04/18 07:10 Dose: 3 ml Aspirin (Ecotrin) 81 mg PO DAILY [facility] Last Admin: 05/04/18 09:43 Dose: 81 mg Dextrose (Dextrose 50% Inj) 0 ml IV STAT PRN; Protocol PRN Reason: Hypoglycemia Protocol Dextrose (Glutose 15) 15 gm PO ONCE PRN; Protocol PRN Reason: Hypoglycemia Protocol Glucagon (Glucagen Diagnostic Kit) 1 mg IM STAT PRN; Protocol PRN Reason: Hypoglycemia Protocol Heparin Sodium (Porcine) (Heparin) 5,000 units SC Q8 [facility] Last Admin: 05/04/18 06:20 Dose: 5,000 units Midazolam HCl 100 mg/ Dextrose 100 mls @ 1.48 mls/hr IV .Q24H PRN; Protocol PRN Reason: Sedation Last Titration: 05/03/18 08:20 Dose: 0 mg/kg/hr, 0 mls/hr Doxycycline Hyclate 100 mg/ (Sodium Chloride) 100 mls @ 100 mls/hr IVPB Q12H [facility]; Protocol Last Admin: 05/04/18 03:54 Dose: 100 mls/hr Levetiracetam 1,000 mg/ Sodium (Chloride) 110 mls @ 420 mls/hr IVPB Q12H [facility] Last Admin: 05/03/18 23:41 Dose: 420 mls/hr Lactated Ringer's (Lactated Ringer's) 1,000 mls @ 50 mls/hr IV .Q20H [facility] Last Admin: 05/03/18 22:00 Dose: Not Given Insulin Human Regular 100 unit (/ Sodium Chloride) 100 mls @ 2 mls/hr IV .Q24H [facility]; Protocol Last Admin: 05/03/18 11:01 Dose: Not Given Vancomycin HCl 1,000 mg/ (Sodium Chloride) 200 mls @ 133.333 mls/hr IVPB Q12H [facility]; Protocol Last Admin: 05/04/18 06:20 Dose: 133.333 mls/hr Meropenem 1 gm/ Sodium (Chloride) 100 mls @ 100 mls/hr IVPB Q8H [facility]; Protocol Last Admin: 05/04/18 09:43 Dose: 100 mls/hr Dextrose (Dextrose 5% In Water 1000 Ml) 1,000 mls @ 0 mls/hr IV .Q0M PRN; Protocol PRN Reason: Hypoglycemia Protocol Sodium Chloride (Sodium Chloride 0.45%) 1,000 mls @ 100 mls/hr IV .Q10H [facility] Last Admin: 05/04/18 10:47 Dose: 100 mls/hr Insulin Aspart (Novolog) 0 unit SC Q6 [facility]; Protocol Last Admin: 05/04/18 06:20 Dose: 4 units Metoprolol Tartrate (Lopressor) 5 mg IVP DAILY [facility] Last Admin: 05/04/18 09:43 Dose: 5 mg Pantoprazole Sodium (Protonix Inj) 40 mg IVP DAILY [facility] Last Admin: 05/04/18 09:43 Dose: 40 mg Pneumococcal Polyvalent Vaccine (Pneumovax 23 Vaccine) 0.5 ml IM .ONCE ONE Stop: 05/04/18 18:01 Rosuvastatin Calcium (Crestor) 5 mg PO HS [facility] Last Admin: 05/03/18 21:42 Dose: 5 mg Thiamine HCl (Vitamin B1 Inj) 100 mg IV DAILY [facility] Last Admin: 05/04/18 09:42 Dose: 100 mg - Labs Labs: 05/04/18 06:28 05/04/18 06:28 PT 12.6 SECONDS (9.7-12.2) H 05/02/18 13:23 INR 1.2 05/02/18 13:23 APTT 128 SECONDS (21-34) H* D 05/02/18 20:39
[2018-05-04] MEDS ORDERED: Sodium Chloride 0.9% 1,000 ML IV ONE ×2 (11:06→18:46)
[2018-05-04 11:09] LABS: ARTERIAL BLOOD GAS HCO3 25.6 mmol/L (21-28); ARTERIAL BLOOD GAS HEMOGLOBIN 12.4 g/dL (11.7-17.4); ARTERIAL BLOOD GAS O2 SAT 99.8 % (95-98); ARTERIAL BLOOD GAS PCO2 32 mm/Hg (35-45); ARTERIAL BLOOD GAS PH 7.48 (7.35-7.45); ARTERIAL BLOOD GAS PO2 112 mm/Hg (80-100); ARTERIAL BLOOD GAS TCO2 24.8 mmol/L (22-28)
[2018-05-04] MEDS: levETIRAcetam 1,000 MG in Sodium Chloride 0.9% 100 ML IVPB SCH ×2 (11:49→22:30)
--- NOTE | 2018-05-04 12:42 | RAD ---
HISTORY: S/P picc line insertion COMPARISON: Chest x-ray performed 05/04/18 and 05/03/18 TECHNIQUE: Chest, one view. FINDINGS: Numerous external wires, leads, and devices obscure evaluation of the underlying parenchyma. Endotracheal tube and nasogastric tube appear in grossly satisfactory position. Right-sided PICC terminates at the expected location of the cavoatrial junction. 2 external defibrillator pads project over the mid and left lower chest. LUNGS: Mild residual infiltrate at the right lung base. PLEURA: No significant pleural effusion identified. No definite pneumothorax . CARDIOVASCULAR: The cardiomediastinal silhouette appears within normal limits of size. No significant atherosclerotic calcification present. OSSEOUS STRUCTURES: No acute osseous abnormality identified. VISUALIZED UPPER ABDOMEN: Unremarkable. OTHER FINDINGS: None. IMPRESSION: Endotracheal tube and nasogastric tube appear in grossly satisfactory position. Right-sided PICC terminates at the expected location of the cavoatrial junction. 2 external defibrillator pads project over the mid and left lower chest. Mild residual infiltrate at the right lung base.
--- NOTE | 2018-05-04 15:32 | CP.PCM.PN ---
Subjective - Date & Time of Evaluation Date of Evaluation: 05/04/18 Time of Evaluation: 15:31 - Subjective Subjective: Mrs. Hodge was seen and examined today at bedside in the ICU. There were no acute events overnight. She continues to be comatose and neurologically unchanged. Objective - Vital Signs/Intake and Output Vital Signs (last 24 hours): Temp Pulse Resp BP Pulse Ox 98.8 F 90 15 164/91 H 98 05/04/18 12:00 05/04/18 15:00 05/04/18 15:00 05/04/18 14:45 05/04/18 15:00 Intake and Output: 05/04/18 05/04/18 06:59 18:59 Intake Total 935 750 Output Total 520 470 Balance 415 280 - Medications Medications: Current Medications Albuterol/Ipratropium (Duoneb 3 Mg/0.5 Mg (3 Ml) Ud) 3 ml INH RQ4 [facility] Last Admin: 05/04/18 07:10 Dose: 3 ml Aspirin (Ecotrin) 81 mg PO DAILY [facility] Last Admin: 05/04/18 09:43 Dose: 81 mg Dextrose (Dextrose 50% Inj) 0 ml IV STAT PRN; Protocol PRN Reason: Hypoglycemia Protocol Dextrose (Glutose 15) 15 gm PO ONCE PRN; Protocol PRN Reason: Hypoglycemia Protocol Glucagon (Glucagen Diagnostic Kit) 1 mg IM STAT PRN; Protocol PRN Reason: Hypoglycemia Protocol Heparin Sodium (Porcine) (Heparin) 5,000 units SC Q8 [facility] Last Admin: 05/04/18 15:19 Dose: 5,000 units Midazolam HCl 100 mg/ Dextrose 100 mls @ 1.48 mls/hr IV .Q24H PRN; Protocol PRN Reason: Sedation Last Titration: 05/03/18 08:20 Dose: 0 mg/kg/hr, 0 mls/hr Doxycycline Hyclate 100 mg/ (Sodium Chloride) 100 mls @ 100 mls/hr IVPB Q12H [facility]; Protocol Last Admin: 05/04/18 03:54 Dose: 100 mls/hr Levetiracetam 1,000 mg/ Sodium (Chloride) 110 mls @ 420 mls/hr IVPB Q12H [facility] Last Admin: 05/04/18 11:49 Dose: 420 mls/hr Lactated Ringer's (Lactated Ringer's) 1,000 mls @ 50 mls/hr IV .Q20H [facility] Last Admin: 05/03/18 22:00 Dose: Not Given Insulin Human Regular 100 unit (/ Sodium Chloride) 100 mls @ 2 mls/hr IV .Q24H [facility]; Protocol Last Admin: 05/03/18 11:01 Dose: Not Given Vancomycin HCl 1,000 mg/ (Sodium Chloride) 200 mls @ 133.333 mls/hr IVPB Q12H [facility]; Protocol Last Admin: 05/04/18 06:20 Dose: 133.333 mls/hr Meropenem 1 gm/ Sodium (Chloride) 100 mls @ 100 mls/hr IVPB Q8H [facility]; Protocol Last Admin: 05/04/18 09:43 Dose: 100 mls/hr Dextrose (Dextrose 5% In Water 1000 Ml) 1,000 mls @ 0 mls/hr IV .Q0M PRN; Protocol PRN Reason: Hypoglycemia Protocol Sodium Chloride (Sodium Chloride 0.9%) 1,000 mls @ 100 mls/hr IV .Q10H ONE Stop: 05/04/18 21:05 Last Admin: 05/04/18 12:39 Dose: 100 mls/hr Insulin Aspart (Novolog) 0 unit SC Q6 [facility]; Protocol Last Admin: 05/04/18 12:40 Dose: 4 units Metoprolol Tartrate (Lopressor) 5 mg IVP DAILY [facility] Last Admin: 05/04/18 09:43 Dose: 5 mg Pantoprazole Sodium (Protonix Inj) 40 mg IVP DAILY [facility] Last Admin: 05/04/18 09:43 Dose: 40 mg Pneumococcal Polyvalent Vaccine (Pneumovax 23 Vaccine) 0.5 ml IM .ONCE ONE Stop: 05/04/18 18:01 Rosuvastatin Calcium (Crestor) 5 mg PO HS [facility] Last Admin: 05/03/18 21:42 Dose: 5 mg Thiamine HCl (Vitamin B1 Inj) 100 mg IV DAILY [facility] Last Admin: 05/04/18 09:42 Dose: 100 mg - Labs Labs: 05/04/18 06:28 05/04/18 06:28 PT 12.6 SECONDS (9.7-12.2) H 05/02/18 13:23 INR 1.2 05/02/18 13:23 APTT 128 SECONDS (21-34) H* D 05/02/18 20:39 - Neurological Exam Additional comments: Neurologically unchanged compared with yesterday's examination. Assessment and Plan (1) Anoxic brain injury Assessment & Plan: Continue current management. MRI of the brain is recommended to evaluate for evidence of hypoxic brain injury. Status: Acute
--- NOTE | 2018-05-04 15:41 | CT ---
Date of service: 05/04/2018 PROCEDURE: CT HEAD WITHOUT CONTRAST. HISTORY: Anoxic brain injury COMPARISON: 05/03/2018. TECHNIQUE: Axial computed tomography images were obtained through the head/brain without intravenous contrast. Radiation dose: Total exam DLP = 1091.37 mGy-cm. This CT exam was performed using one or more of the following dose reduction techniques: Automated exposure control, adjustment of the mA and/or kV according to patient size, and/or use of iterative reconstruction technique. FINDINGS: HEMORRHAGE: No intracranial hemorrhage. BRAIN: Again seen is were cortico medullary differentiation. There are symmetric low-attenuation areas in bilateral thalami and posterior limbs of internal capsules. There is redemonstration of mild cerebral edema with indistinct appearance of the basal ganglia. VENTRICLES: The ventricles are normal in size, shape and configuration. CALVARIUM: There is no calvarial fracture or extracranial soft tissue swelling. PARANASAL SINUSES: There fluid in the ethmoid air cells and left sphenoid chamber, an expected finding in intubated patients. MASTOID AIR CELLS: Predominantly clear. Minimal fluid in the mastoid tips. OTHER FINDINGS: None. IMPRESSION: Little interval change in poor corticomedullary differentiation an indistinct appearance of the basal ganglia compatible with mild cerebral edema. Abnormal appearance of bilateral thalamocapsular regions concerning for hypoxic anoxic insult. Please note an MRI of the brain is more sensitive for definitive evaluation of hypoxic anoxic insult and may be performed if clinically indicated.
[2018-05-04] MEDS ORDERED: Pneumococcal 23-Valent Vaccine IM ONE (18:00)
[2018-05-04] MEDS ORDERED: Enalaprilat 2.5 MG/2 ML IV ONE (18:46)
--- NOTE | 2018-05-04 18:46 | CP.PCM.PN ---
Subjective - Date & Time of Evaluation Date of Evaluation: 05/04/18 Time of Evaluation: 18:43 - Subjective Subjective: sister at bedside patient only responsive to pain intubated nonverbal Objective - Vital Signs/Intake and Output Vital Signs (last 24 hours): Temp Pulse Resp BP Pulse Ox 99.4 F 94 H 18 196/113 H 98 05/04/18 16:00 05/04/18 18:00 05/04/18 18:00 05/04/18 17:56 05/04/18 18:00 Intake and Output: 05/04/18 05/04/18 06:59 18:59 Intake Total 935 1150 Output Total 520 895 Balance 415 255 - Medications Medications: Current Medications Albuterol/Ipratropium (Duoneb 3 Mg/0.5 Mg (3 Ml) Ud) 3 ml INH RQ4 [facility] Last Admin: 05/04/18 16:20 Dose: 3 ml Aspirin (Ecotrin) 81 mg PO DAILY [facility] Last Admin: 05/04/18 09:43 Dose: 81 mg Dextrose (Dextrose 50% Inj) 0 ml IV STAT PRN; Protocol PRN Reason: Hypoglycemia Protocol Dextrose (Glutose 15) 15 gm PO ONCE PRN; Protocol PRN Reason: Hypoglycemia Protocol Glucagon (Glucagen Diagnostic Kit) 1 mg IM STAT PRN; Protocol PRN Reason: Hypoglycemia Protocol Heparin Sodium (Porcine) (Heparin) 5,000 units SC Q8 [facility] Last Admin: 05/04/18 15:19 Dose: 5,000 units Midazolam HCl 100 mg/ Dextrose 100 mls @ 1.48 mls/hr IV .Q24H PRN; Protocol PRN Reason: Sedation Last Titration: 05/03/18 08:20 Dose: 0 mg/kg/hr, 0 mls/hr Doxycycline Hyclate 100 mg/ (Sodium Chloride) 100 mls @ 100 mls/hr IVPB Q12H [facility]; Protocol Last Admin: 05/04/18 17:25 Dose: 100 mls/hr Levetiracetam 1,000 mg/ Sodium (Chloride) 110 mls @ 420 mls/hr IVPB Q12H [facility] Last Admin: 05/04/18 11:49 Dose: 420 mls/hr Lactated Ringer's (Lactated Ringer's) 1,000 mls @ 50 mls/hr IV .Q20H [facility] Last Admin: 05/03/18 22:00 Dose: Not Given Insulin Human Regular 100 unit (/ Sodium Chloride) 100 mls @ 2 mls/hr IV .Q24H [facility]; Protocol Last Admin: 05/03/18 11:01 Dose: Not Given Vancomycin HCl 1,000 mg/ (Sodium Chloride) 200 mls @ 133.333 mls/hr IVPB Q12H [facility]; Protocol Last Admin: 05/04/18 18:25 Dose: 133.333 mls/hr Meropenem 1 gm/ Sodium (Chloride) 100 mls @ 100 mls/hr IVPB Q8H [facility]; Protocol Last Admin: 05/04/18 09:43 Dose: 100 mls/hr Dextrose (Dextrose 5% In Water 1000 Ml) 1,000 mls @ 0 mls/hr IV .Q0M PRN; Protocol PRN Reason: Hypoglycemia Protocol Sodium Chloride (Sodium Chloride 0.9%) 1,000 mls @ 100 mls/hr IV .Q10H ONE Stop: 05/04/18 21:05 Last Admin: 05/04/18 12:39 Dose: 100 mls/hr Insulin Aspart (Novolog) 0 unit SC Q6 [facility]; Protocol Last Admin: 05/04/18 12:40 Dose: 4 units Metoprolol Tartrate (Lopressor) 5 mg IVP DAILY [facility] Last Admin: 05/04/18 09:43 Dose: 5 mg Pantoprazole Sodium (Protonix Inj) 40 mg IVP DAILY [facility] Last Admin: 05/04/18 09:43 Dose: 40 mg Rosuvastatin Calcium (Crestor) 5 mg PO HS [facility] Last Admin: 05/03/18 21:42 Dose: 5 mg Thiamine HCl (Vitamin B1 Inj) 100 mg IV DAILY [facility] Last Admin: 05/04/18 09:42 Dose: 100 mg - Labs Labs: 05/04/18 06:28 05/04/18 06:28 PT 12.6 SECONDS (9.7-12.2) H 05/02/18 13:23 INR 1.2 05/02/18 13:23 APTT 128 SECONDS (21-34) H* D 05/02/18 20:39 - ENT Exam Additional comments: strangulation monge on neck - Respiratory Exam Additional comments: coarse bs on vent - Cardiovascular Exam Cardiovascular Exam: REGULAR RHYTHM, +S1, +S2 - GI/Abdominal Exam GI & Abdominal Exam: Soft, Normal Bowel Sounds. absent: Tenderness - Neurological Exam Neurological Exam: absent: Alert, Awake, Oriented x3 Assessment and Plan - Assessment and Plan (Free Text) Assessment: 1.Respiratory failure due to strangulation suicidal attempt likely Asphyxia,s/p acidosis, r/o sepsis suicidal attempt patient is unresponsive at this time Intubated on MV, managed by critical care team conitnue antibiotics ,possible aspiration pneumonia 2. NSTMI Elevated troponin,EKG asprin ,off heparin drip,metoprolol Dr Gay consulted 3.Leukocytosis,bandemia,high pro mariia ,fever R/O Sepsis Dr Mcgill consulted likely aspiration continue zosyn ,vanco and doxycycline follow cultures chest x ray pneumonia 4. anoxic brain injury neurologist Dr Vanegas consulted EEG showed diffuse encephalopathy with burst suppression. follow repeat CT head-no bleeding palliative consult requested 5.Transaminitis likely shock liver,follow LFT 6. Asphyxia neck abrasion suspicious for strangulation Police was called and investigated by police for possibility of suicide 7.Diabetes mellitus HA1c,Finger stick with insulin coverage 8. Prophylaxis DVT -on heparin GI is on protonix
[2018-05-04] MEDS: Insulin Human Regular 100 UNIT in Sodium Chloride 0.9% 99 ML IV SCH (19:28)
[2018-05-04] MEDS: Lactated Ringer's 1,000 ML IV SCH (19:28)
[2018-05-04 22:19] LABS: OXYCODONE SCREEN negative
[2018-05-04] MEDS ORDERED: Nitroglycerin 2% Ointment Foilpak UD TOP STA (22:24)
[2018-05-04] MEDS ORDERED: Acetaminophen 650mg/20.3ml solution UD PO STA (23:30)
--- NOTE | 2018-05-04 23:56 | CP.PCM.PN ---
Subjective - Date & Time of Evaluation Date of Evaluation: 05/04/18 Time of Evaluation: 10:00 - Subjective Subjective: events noted remains altered in ICU Objective - Vital Signs/Intake and Output Vital Signs (last 24 hours): Temp Pulse Resp BP Pulse Ox 102.8 F H 112 H 16 193/114 H 97 05/04/18 23:39 05/04/18 23:09 05/04/18 23:09 05/04/18 23:09 05/04/18 23:09 Intake and Output: 05/04/18 05/05/18 18:59 06:59 Intake Total 1150 525 Output Total 895 175 Balance 255 350 - Medications Medications: Current Medications Albuterol/Ipratropium (Duoneb 3 Mg/0.5 Mg (3 Ml) Ud) 3 ml INH RQ4 [facility] Last Admin: 05/04/18 20:07 Dose: 3 ml Aspirin (Ecotrin) 81 mg PO DAILY [facility] Last Admin: 05/04/18 09:43 Dose: 81 mg Dextrose (Dextrose 50% Inj) 0 ml IV STAT PRN; Protocol PRN Reason: Hypoglycemia Protocol Dextrose (Glutose 15) 15 gm PO ONCE PRN; Protocol PRN Reason: Hypoglycemia Protocol Glucagon (Glucagen Diagnostic Kit) 1 mg IM STAT PRN; Protocol PRN Reason: Hypoglycemia Protocol Heparin Sodium (Porcine) (Heparin) 5,000 units SC Q8 [facility] Last Admin: 05/04/18 22:30 Dose: 5,000 units Doxycycline Hyclate 100 mg/ (Sodium Chloride) 100 mls @ 100 mls/hr IVPB Q12H [facility]; Protocol Last Admin: 05/04/18 17:25 Dose: 100 mls/hr Levetiracetam 1,000 mg/ Sodium (Chloride) 110 mls @ 420 mls/hr IVPB Q12H [facility] Last Admin: 05/04/18 22:30 Dose: 420 mls/hr Vancomycin HCl 1,000 mg/ (Sodium Chloride) 200 mls @ 133.333 mls/hr IVPB Q12H [facility]; Protocol Last Admin: 05/04/18 18:25 Dose: 133.333 mls/hr Meropenem 1 gm/ Sodium (Chloride) 100 mls @ 100 mls/hr IVPB Q8H [facility]; Protocol Last Admin: 05/04/18 19:37 Dose: 100 mls/hr Dextrose (Dextrose 5% In Water 1000 Ml) 1,000 mls @ 0 mls/hr IV .Q0M PRN; Protocol PRN Reason: Hypoglycemia Protocol Sodium Chloride (Sodium Chloride 0.9%) 1,000 mls @ 50 mls/hr IV .Q20H ONE Stop: 05/05/18 07:05 Last Admin: 05/04/18 19:42 Dose: 50 mls/hr Insulin Aspart (Novolog) 0 unit SC Q6 [facility]; Protocol Last Admin: 05/04/18 23:28 Dose: 6 units Metoprolol Tartrate (Lopressor) 5 mg IVP DAILY [facility] Last Admin: 05/04/18 09:43 Dose: 5 mg Pantoprazole Sodium (Protonix Inj) 40 mg IVP DAILY [facility] Last Admin: 05/04/18 09:43 Dose: 40 mg Rosuvastatin Calcium (Crestor) 5 mg PO HS [facility] Last Admin: 05/04/18 22:31 Dose: 5 mg Thiamine HCl (Vitamin B1 Inj) 100 mg IV DAILY [facility] Last Admin: 05/04/18 09:42 Dose: 100 mg - Labs Labs: 05/04/18 06:28 05/04/18 06:28 PT 12.6 SECONDS (9.7-12.2) H 05/02/18 13:23 INR 1.2 05/02/18 13:23 APTT 128 SECONDS (21-34) H* D 05/02/18 20:39 - Constitutional Appears: Chronically Ill - Head Exam Head Exam: NORMOCEPHALIC - ENT Exam ENT Exam: Mucous Membranes Dry - Respiratory Exam Respiratory Exam: Decreased Breath Sounds - Cardiovascular Exam Cardiovascular Exam: REGULAR RHYTHM, +S1, +S2 Assessment and Plan (1) Hyperglycemia Status: Acute (2) Leukocytosis Status: Acute (3) Respiratory failure Status: Acute
[2018-05-05] MEDS: Albuterol-Ipratrop 3 mg / 0.5 (3 ml) UD INH SCH ×6 (00:47→20:13)
[2018-05-05] MEDS: Meropenem 1 GM in Sodium Chloride 0.9% 100 ML IVPB SCH ×3 (03:00→17:40)
[2018-05-05] MEDS ORDERED: Metoprolol 1 mg/ml Inj IVP ONE (04:46)
[2018-05-05 05:58] LABS: BASO # 0.1 K/uL (0.0-0.2); BASO % 0.5 % (0.0-2.0); HEMOGLOBIN 11.5 g/dL (11.0-16.0); LYMPH # 1.8 K/uL (1.0-4.3); LYMPH % 7.4 % (20.0-40.0); MEAN CELL VOLUME 78.7 fL (81.0-99.0); MEAN CORPUSCULAR HEMOGLOBIN 26.2 pg (27.0-31.0); MEAN CORPUSCULAR HGB CONC 33.3 g/dL (33.0-37.0); MEAN PLATELET VOLUME 11.7 fL (7.2-11.7); MONO # 0.9 K/uL (0.0-0.8); MONO % 3.6 % (0.0-10.0); NEUT # 21.2 K/uL (1.8-7.0); NEUT % 88.5 % (50.0-75.0); PLATELET COUNT 170 K/uL (130-400); RBC 4.41 Mil/uL (3.80-5.20); RED CELL DISTRIBUTION WIDTH 16.1 % (11.5-14.5); WHITE BLOOD COUNT 23.9 K/uL (4.8-10.8)
[2018-05-05 05:59] LABS: ABG ALLEN TEST POS; ARTERIAL BLOOD GAS HCO3 25.2 mmol/L (21-28); ARTERIAL BLOOD GAS O2 SAT 96.5 % (95-98); ARTERIAL BLOOD GAS PCO2 30 mm/Hg (35-45); ARTERIAL BLOOD GAS PH 7.49 (7.35-7.45); ARTERIAL BLOOD GAS PO2 69 mm/Hg (80-100); ARTERIAL BLOOD GAS TCO2 23.8 mmol/L (22-28)
[2018-05-05 06:21] LABS: ALB/GLOB RATIO 0.9 (1.0-2.1); ALBUMIN 2.7 g/dL (3.5-5.0); ALT/SGPT 159 U/L (9-52); AST/SGOT 69 U/L (14-36); BLOOD UREA NITROGEN 30 mg/dL (7-17); CALCIUM 7.5 mg/dl (8.6-10.4); GFR NON-AFRICAN AMERICAN > 60
[2018-05-05] MEDS: (Novolog) Insulin Aspart, Recombinant 100 u/ml 10 ml vial SC SCH ×4 (06:27→23:43)
--- NOTE | 2018-05-05 07:43 | CP.PCM.PN ---
Subjective - Date & Time of Evaluation Date of Evaluation: 05/05/18 Time of Evaluation: 08:00 - Subjective Subjective: Lamont Barclay, PGY-[address] Gay Patient seen and evaluated at bedside. Family members present. Patient mechanically ventilated. Began Nicardipine drip for HTN per ICU team. Objective - Vital Signs/Intake and Output Vital Signs (last 24 hours): Temp Pulse Resp BP Pulse Ox 98.7 F 104 H 37 H 197/127 H 92 L 05/05/18 05:00 05/05/18 07:02 05/05/18 07:02 05/05/18 07:03 05/05/18 07:02 Intake and Output: 05/05/18 05/05/18 06:59 18:59 Intake Total 975 50 Output Total 1425 300 Balance -450 -250 - Medications Medications: Current Medications Albuterol/Ipratropium (Duoneb 3 Mg/0.5 Mg (3 Ml) Ud) 3 ml INH RQ4 [facility] Last Admin: 05/05/18 07:36 Dose: 3 ml Aspirin (Ecotrin) 81 mg PO DAILY [facility] Last Admin: 05/04/18 09:43 Dose: 81 mg Dextrose (Dextrose 50% Inj) 0 ml IV STAT PRN; Protocol PRN Reason: Hypoglycemia Protocol Dextrose (Glutose 15) 15 gm PO ONCE PRN; Protocol PRN Reason: Hypoglycemia Protocol Glucagon (Glucagen Diagnostic Kit) 1 mg IM STAT PRN; Protocol PRN Reason: Hypoglycemia Protocol Heparin Sodium (Porcine) (Heparin) 5,000 units SC Q8 [facility] Last Admin: 05/05/18 06:27 Dose: 5,000 units Levetiracetam 1,000 mg/ Sodium (Chloride) 110 mls @ 420 mls/hr IVPB Q12H [facility] Last Admin: 05/04/18 22:30 Dose: 420 mls/hr Vancomycin HCl 1,000 mg/ (Sodium Chloride) 200 mls @ 133.333 mls/hr IVPB Q12H [facility]; Protocol Last Admin: 05/05/18 06:27 Dose: 133.333 mls/hr Meropenem 1 gm/ Sodium (Chloride) 100 mls @ 100 mls/hr IVPB Q8H [facility]; Protocol Last Admin: 05/05/18 03:00 Dose: 100 mls/hr Dextrose (Dextrose 5% In Water 1000 Ml) 1,000 mls @ 0 mls/hr IV .Q0M PRN; Protocol PRN Reason: Hypoglycemia Protocol Nicardipine HCl 25 mg/ Sodium (Chloride) 250 mls @ 50 mls/hr IV .Q5H PRN; Protocol PRN Reason: TITRATE PER PROTOCOL Insulin Aspart (Novolog) 0 unit SC Q6 [facility]; Protocol Last Admin: 05/05/18 06:27 Dose: 3 units Metoprolol Tartrate (Lopressor) 5 mg IVP DAILY [facility] Last Admin: 05/04/18 09:43 Dose: 5 mg Pantoprazole Sodium (Protonix Inj) 40 mg IVP DAILY [facility] Last Admin: 05/04/18 09:43 Dose: 40 mg Rosuvastatin Calcium (Crestor) 5 mg PO HS [facility] Last Admin: 05/04/18 22:31 Dose: 5 mg Thiamine HCl (Vitamin B1 Inj) 100 mg IV DAILY [facility] Last Admin: 05/04/18 09:42 Dose: 100 mg - Labs Labs: 05/05/18 05:50 05/05/18 05:50 PT 12.6 SECONDS (9.7-12.2) H 05/02/18 13:23 INR 1.2 05/02/18 13:23 APTT 128 SECONDS (21-34) H* D 05/02/18 20:39 - Additional Findings Additional findings: - Constitutional Appears: In Acute Distress, Mechanically ventilated - Neck Exam Neck Exam: absent: Normal Inspection (Dark purple ring circumferentially around lower neck) - Respiratory Exam Respiratory Exam: Clear to Ausculation Bilateral. absent: Rales, Rhonchi, Wheezes - Cardiovascular Exam Cardiovascular Exam: Hypertensive, RRR, +S1, +S2 - GI/Abdominal Exam GI & Abdominal Exam: Soft. absent: Tenderness - Extremities Exam Extremities Exam: absent: Pedal Edema - Skin Skin Exam: Dry, Intact, Normal Color, Warm Assessment and Plan - Assessment and Plan (Free Text) Assessment: Assessment: 52 F with suspected suicide attempt who presents with anoxic brain injury and NSTEMI. NSTEMI - Original EKG did not meet code heart criteria. - 3rd Trop elevated to 5.06 05/02 - Echo report shows normal EF 65-70% with normal systolic function - pro BNP 35 - Heparin SC Hypertensive Urgency/Emergency - Permissive HTN per Neuro - Nicardipine 5 mg/hr drip began this AM - Amlodipine 10 mg PO, Vasotec 1.25 mg IV and Metoprolol 5 mg IV given overnight . Will likely increase daily B bartolo - F/u MRI brain without contrast at [place] - CT head showed stable poor cortical medullary differentiation - ASA, Statin, B-bartolo medical therapy - Continue to monitor Patient seen, case reviewed, and plan discussed with Dr. Gay. Future recs per Dr. Gay. Lamont Barclay, PGY-1
[2018-05-05] MEDS: niCARdipine IV 25 MG in Sodium Chloride 0.9% 240 ML IV PRN ×2 (08:08→18:53)
[2018-05-05 08:28] LABS: BANDS 11 % (0-2); LYMPHOCYTE 8 % (20-40); MONOCYTE 4 % (0-10); NEUTROPHIL 76 % (50-75); REACTIVE LYMPHOCYTES 1 % (0-0); TOTAL CELLS COUNTED 100
[2018-05-05 08:29] LABS: ANISOCYTOSIS SLIGHT; PLATELET ESTIMATE NORMAL (NORMAL); TOXIC GRANULATION PRESENT
--- NOTE | 2018-05-05 08:31 | RAD ---
Date of service: 05/05/2018 HISTORY: intubated COMPARISON: Portable chest 05/04/2018. FINDINGS: LUNGS: Endotracheal and nasogastric tubes are not changed in position with right PICC stable as well. Patchy infiltrate developing in the right base with air bronchograms noted medially. None is seen at the left. PLEURA: No significant pleural effusion identified, no pneumothorax apparent. CARDIOVASCULAR: No aortic atherosclerotic calcification present Normal cardiac size. No pulmonary vascular congestion. OSSEOUS STRUCTURES: No significant abnormalities. VISUALIZED UPPER ABDOMEN: Normal. OTHER FINDINGS: None. IMPRESSION: Right basilar infiltrate developing.
[2018-05-05 08:42] LABS: LARGE PLATELETS PRESENT
[2018-05-05] MEDS: Thiamine 100 mg/ml Inj IV SCH (09:22)
[2018-05-05] MEDS: Metoprolol 1 mg/ml Inj IVP SCH (10:00)
--- NOTE | 2018-05-05 10:57 | CP.PCM.PN ---
Subjective - Date & Time of Evaluation Date of Evaluation: 05/05/18 Time of Evaluation: 10:55 - Subjective Subjective: RENAL FOLLOW UP HPI: 52 year F w/ unknown medical hx that was reportedly found unresponsive. EMS was activated she was intubated and brought to ER. She was found to be hypertensive and code stroke was called. SHe was subsequently admitted to ICU for further evaluation. 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 No family was available for hx at the time of evaluation and all hx is from chart. ROS: un able to obtain pt intubated and comatose. going for MRI brain today Surgical hx: No known surgeries Medical hx: No known prior medical history Allergies: NKDA Social: EtOH use unknown if any ivdu Family Hx: No known family hx Medications: No home meds pe: vs as below gen: intubated and comatose sclear: anicteric op: ET tube neck: supple cv: +s1+s2 no rub lungs: b/l clear, + mechanical bs abd: soft, no organomegaly ext: no edema neuro: intubated not responsive psych: no responsive labs and imaging reviewed imp: ARF/Acidosis/ Sepsis/Anoxic injury/ Sepsis/ Pneumonia/ alcoholic ketoa cidosis/cerebral edema/hanging, strangulation/hypernatremia plan: ARF: IMPROVING seems to be consistent ATN - ischemic v septic. Agree w/ continue IVF as NS instead on 1/2 NS as has cerebral edema, prefer to keep serum Na on higher side. once cerebral edema better, then can switch to o.45% saline. can supplement free water via NG tube in meantime HTN control with meds as ordered Acidosis 2/2 to elevated lactic acid + dka +alcoholism: IMPROVED glycemic control. continue with thiamine 100 mg daily Abx per primary team Pall are, neurology following d/w ICU team Objective - Vital Signs/Intake and Output Vital Signs (last 24 hours): Temp Pulse Resp BP Pulse Ox 98.7 F 108 H 33 H 184/108 H 93 L 05/05/18 05:00 05/05/18 08:39 05/05/18 08:39 05/05/18 08:39 05/05/18 08:39 Intake and Output: 05/05/18 05/05/18 06:59 18:59 Intake Total 975 200 Output Total 1425 1500 Balance -450 -1300 - Medications Medications: Current Medications Albuterol/Ipratropium (Duoneb 3 Mg/0.5 Mg (3 Ml) Ud) 3 ml INH RQ4 [facility] Last Admin: 05/05/18 07:36 Dose: 3 ml Aspirin (Ecotrin) 81 mg PO DAILY [facility] Last Admin: 05/05/18 09:22 Dose: 81 mg Dextrose (Dextrose 50% Inj) 0 ml IV STAT PRN; Protocol PRN Reason: Hypoglycemia Protocol Dextrose (Glutose 15) 15 gm PO ONCE PRN; Protocol PRN Reason: Hypoglycemia Protocol Glucagon (Glucagen Diagnostic Kit) 1 mg IM STAT PRN; Protocol PRN Reason: Hypoglycemia Protocol Heparin Sodium (Porcine) (Heparin) 5,000 units SC Q8 [facility] Last Admin: 05/05/18 06:27 Dose: 5,000 units Levetiracetam 1,000 mg/ Sodium (Chloride) 110 mls @ 420 mls/hr IVPB Q12H [facility] Last Admin: 05/04/18 22:30 Dose: 420 mls/hr Vancomycin HCl 1,000 mg/ (Sodium Chloride) 200 mls @ 133.333 mls/hr IVPB Q12H [facility]; Protocol Last Admin: 05/05/18 06:27 Dose: 133.333 mls/hr Meropenem 1 gm/ Sodium (Chloride) 100 mls @ 100 mls/hr IVPB Q8H [facility]; Protocol Last Admin: 05/05/18 03:00 Dose: 100 mls/hr Dextrose (Dextrose 5% In Water 1000 Ml) 1,000 mls @ 0 mls/hr IV .Q0M PRN; Protocol PRN Reason: Hypoglycemia Protocol Nicardipine HCl 25 mg/ Sodium (Chloride) 250 mls @ 50 mls/hr IV .Q5H PRN; Protocol PRN Reason: TITRATE PER PROTOCOL Last Admin: 05/05/18 08:08 Dose: 5 mg/hr, 50 mls/hr Insulin Aspart (Novolog) 0 unit SC Q6 [facility]; Protocol Last Admin: 05/05/18 06:27 Dose: 3 units Metoprolol Tartrate (Lopressor) 5 mg IVP DAILY [facility] Last Admin: 05/04/18 09:43 Dose: 5 mg Pantoprazole Sodium (Protonix Inj) 40 mg IVP DAILY [facility] Last Admin: 05/05/18 09:23 Dose: 40 mg Rosuvastatin Calcium (Crestor) 5 mg PO HS [facility] Last Admin: 05/04/18 22:31 Dose: 5 mg Thiamine HCl (Vitamin B1 Inj) 100 mg IV DAILY [facility] Last Admin: 05/05/18 09:22 Dose: 100 mg - Labs Labs: 05/05/18 05:50 05/05/18 05:50 PT 12.6 SECONDS (9.7-12.2) H 05/02/18 13:23 INR 1.2 05/02/18 13:23 APTT 128 SECONDS (21-34) H* D 05/02/18 20:39
[2018-05-05] MEDS: levETIRAcetam 1,000 MG in Sodium Chloride 0.9% 100 ML IVPB SCH ×2 (11:45→22:40)
[2018-05-05] MEDS: Sodium Chloride 0.45% 1,000 ML IV SCH ×3 (12:00→23:09)
[2018-05-05] MEDS ORDERED: Desmopressin 4 mcg/ml Inj (1 ml) IVP ONE (14:00)
[2018-05-05 16:10] LABS: BLOOD UREA NITROGEN 25 mg/dL (7-17); CALCIUM 7.7 mg/dl (8.6-10.4); GFR NON-AFRICAN AMERICAN > 60
--- NOTE | 2018-05-05 16:11 | CP.CCUPN ---
<Marycruz Plasencia - Last Filed: 05/05/18 16:15> CCU Subjective - Physician Review Events Since Last Encounter (Free Text): 05/05/18 16:10 No acute events overnight Subjective (Free Text): 05/05/18 16:09 PGY1 Critical Care Progress Note for Dr. Brennan Patient seen and examined at bedside this morning. Family members present. Patient mechanically ventilated. Began Nicardipine drip for HTN. Otherwise, no acute events overnight, per nurse. Unable to obtained ROS due to clinical condition. Critical Care Time Spent (in minutes): 35 CCU Objective - Vital Signs / Intake & Output Vital Signs (Last 4 hours): Vital Signs Pulse Resp BP Pulse Ox 05/05/18 14:30 112 H 26 H 100 05/05/18 14:29 110 H 26 H 152/85 H 99 05/05/18 14:00 103 H 27 H 100 05/05/18 13:59 94 H 18 133/86 99 05/05/18 13:30 96 H 26 H 99 05/05/18 13:05 84 23 120/76 99 05/05/18 13:00 83 23 99 05/05/18 12:35 84 19 104/59 L 05/05/18 12:30 85 21 98 Intake and Output (Last 8hrs): Intake & Output 05/05/18 05/05/18 05/05/18 06:59 14:59 22:59 Intake Total 550 400 Output Total 1200 2000 Balance -650 -1600 Weight 154 lb 3.36 oz Intake: Intake, IV Amount 550 400 Right PICC 550 400 Output: Urine 1200 2000 Urethral (Alvarado) 1200 2000 - Physical Exam Pupils: Positive for: PERRL Extroacular Muscles: Negative for: EOMI Conjunctiva: Positive for: Normal Mouth: Positive for: Moist Mucous Membranes Nose (External): Positive for: Atraumatic. Negative for: Lesions Nose (Internal): Positive for: Normal Inspection, No Active Bleeding Neck: Positive for: Trachea Midline, Other (skin changes (reddish/hyperpigmented) consisent with ligation around neck ). Negative for: Meningeal Signs Cardiovascular: Positive for: Normal S1, S2, Tachycardic Abdomen: Negative for: Distention, Rebound, Guarding Breast/Axillary: Positive for: Other (Bruising in axillae bilaterally ) Lower Extremity: Positive for: Normal Inspection. Negative for: Edema Neurological: Positive for: Other (GCS=6T). Negative for: CN II-XII Intact Skin: Positive for: Warm, Dry, Normal Color Psychiatric: Negative for: Alert, Oriented x 3 - Medications Active Medications: Active Medications Generic Name Dose Route Start Last Admin Trade Name Freq PRN Reason Stop Dose Admin Albuterol/Ipratropium 3 ml 05/02/18 04:00 05/05/18 15:46 Duoneb 3 Mg/0.5 Mg (3 Ml) Ud INH 3 ml RQ4 BETH Administration Aspirin 81 mg 05/02/18 10:00 05/05/18 09:22 Ecotrin PO 81 mg DAILY BETH Administration Dextrose 0 ml 05/03/18 12:05 Dextrose 50% Inj IV STAT PRN Hypoglycemia Protocol Protocol Dextrose 15 gm 05/03/18 12:05 Glutose 15 PO ONCE PRN Hypoglycemia Protocol Protocol Glucagon 1 mg 05/03/18 12:05 Glucagen Diagnostic Kit IM STAT PRN Hypoglycemia Protocol Protocol Heparin Sodium (Porcine) 5,000 units 05/03/18 14:00 05/05/18 13:18 Heparin SC 5,000 units Q8 BETH Administration Levetiracetam 1,000 mg/ Sodium 110 mls @ 420 mls/hr 05/02/18 11:30 05/05/18 11:45 Chloride IVPB 420 mls/hr Q12H BETH Administration Vancomycin HCl 1,000 mg/ 200 mls @ 133.333 mls/hr 05/02/18 19:00 05/05/18 06:27 Sodium Chloride IVPB 133.333 mls/hr Q12H BETH Administration Protocol Meropenem 1 gm/ Sodium 100 mls @ 100 mls/hr 05/02/18 18:30 05/05/18 12:00 Chloride IVPB 100 mls/hr Q8H BETH Administration Protocol Nicardipine HCl 25 mg/ Sodium 250 mls @ 50 mls/hr 05/05/18 07:15 05/05/18 08:08 Chloride IV 5 mg/hr .Q5H PRN 50 mls/hr TITRATE PER PROTOCOL Administration Protocol 5 MG/HR Sodium Chloride 1,000 mls @ 200 mls/hr 05/05/18 12:00 05/05/18 12:00 Sodium Chloride 0.45% IV 200 mls/hr .Q5H BETH Administration Dextrose 1,000 mls @ 0 mls/hr 05/05/18 13:57 Dextrose 5% In Water 1000 Ml IV .Q0M PRN Hypoglycemia Protocol Protocol Per Protocol Insulin Aspart 0 unit 05/03/18 18:00 05/05/18 12:49 Novolog SC 2 units Q6 BETH Administration Protocol Metoprolol Tartrate 5 mg 05/04/18 10:00 05/05/18 10:00 Lopressor IVP Not Given DAILY BETH Pantoprazole Sodium 40 mg 05/02/18 10:00 05/05/18 09:23 Protonix Inj IVP 40 mg DAILY BETH Administration Rosuvastatin Calcium 5 mg 05/03/18 22:00 05/04/18 22:31 Crestor PO 5 mg HS BETH Administration Thiamine HCl 100 mg 05/03/18 10:45 05/05/18 09:22 Vitamin B1 Inj IV 100 mg DAILY BETH Administration - Patient Studies Lab Studies: Microbiology Studies 05/02/18 01:08 Blood Culture - Preliminary Blood-Venous NO GROWTH AFTER 3 DAYS 05/02/18 01:07 Blood Culture - Preliminary Blood-Venous NO GROWTH AFTER 3 DAYS Lab Studies 05/05/18 05/05/18 05/05/18 Range/Units 11:35 05:50 05:50 WBC 23.9 H (4.8-10.8) K/uL RBC 4.41 (3.80-5.20) Mil/uL Hgb 11.5 (11.0-16.0) g/dL Hct 34.6 (34.0-47.0) % MCV 78.7 L (81.0-99.0) fL MCH 26.2 L (27.0-31.0) pg MCHC 33.3 (33.0-37.0) g/dL RDW 16.1 H (11.5-14.5) % Plt Count 170 (130-400) K/uL MPV 11.7 (7.2-11.7) fL Neut % (Auto) 88.5 H (50.0-75.0) % Lymph % (Auto) 7.4 L (20.0-40.0) % [place] % (Auto) 3.6 (0.0-10.0) % Eos % (Auto) 0.0 (0.0-4.0) % Baso % (Auto) 0.5 (0.0-2.0) % Neut # (Auto) 21.2 H (1.8-7.0) K/uL Lymph # (Auto) 1.8 (1.0-4.3) K/uL [place] # (Auto) 0.9 H (0.0-0.8) K/uL Eos # (Auto) 0.0 (0.0-0.7) K/uL Baso # (Auto) 0.1 (0.0-0.2) K/uL Neutrophils % (Manual) 76 H (50-75) % Band Neutrophils % 11 H* (0-2) % Lymphocytes % (Manual) 8 L (20-40) % Reactive Lymphs % 1 H (0-0) % Monocytes % (Manual) 4 (0-10) % Toxic Granulation Present Platelet Estimate Normal (NORMAL) Large Platelets Present Anisocytosis (manual) Slight Puncture Site pCO2 (35-45) mm/Hg pO2 (80-100) mm/Hg HCO3 (21-28) mmol/L ABG pH (7.35-7.45) ABG Total CO2 (22-28) mmol/L ABG O2 Saturation (95-98) % ABG Base Excess (-2.0-3.0) mmol/L Erik Test ABG Potassium (3.6-5.2) mmol/L A-a O2 Difference mm/Hg Respiratory Index Sodium 156 H (132-148) mmol/l Chloride 124 H (98-107) mmol/L Glucose (65-105) mg/dl Lactate (0.7-2.1) mmol/L Vent Mode Mechanical Rate FiO2 % Tidal Volume PEEP Potassium 3.6 (3.6-5.2) mmol/L Carbon Dioxide 21 L (22-30) mmol/L Anion Gap 15 (10-20) BUN 30 H (7-17) mg/dL Creatinine 0.9 (0.7-1.2) mg/dL Est GFR ( Amer) > 60 Est GFR (Non-Af Amer) > 60 POC Glucose (mg/dL) 197 H (65-110) mg/dL Random Glucose 264 H (65-105) mg/dL Calcium 7.5 L (8.6-10.4) mg/dl Phosphorus 2.8 (2.5-4.5) mg/dL Magnesium 2.4 H (1.6-2.3) mg/dL Total Bilirubin 0.8 (0.2-1.3) mg/dL AST 69 H D (14-36) U/L ALT 159 H D (9-52) U/L Alkaline Phosphatase 158 H D (38-126) U/L Total Protein 5.6 L (6.3-8.3) g/dL Albumin 2.7 L (3.5-5.0) g/dL Globulin 2.9 (2.2-3.9) gm/dL Albumin/Globulin Ratio 0.9 L (1.0-2.1) Arterial Blood Potassium (3.6-5.2) mmol/L Oxycodone Screen Ur Oxycodone Comment 05/05/18 05/05/18 05/04/18 Range/Units 05:38 05:19 23:27 WBC (4.8-10.8) K/uL RBC (3.80-5.20) Mil/uL Hgb (11.0-16.0) g/dL Hct (34.0-47.0) % MCV (81.0-99.0) fL MCH (27.0-31.0) pg MCHC (33.0-37.0) g/dL RDW (11.5-14.5) % Plt Count (130-400) K/uL MPV (7.2-11.7) fL Neut % (Auto) (50.0-75.0) % Lymph % (Auto) (20.0-40.0) % [place] % (Auto) (0.0-10.0) % Eos % (Auto) (0.0-4.0) % Baso % (Auto) (0.0-2.0) % Neut # (Auto) (1.8-7.0) K/uL Lymph # (Auto) (1.0-4.3) K/uL [place] # (Auto) (0.0-0.8) K/uL Eos # (Auto) (0.0-0.7) K/uL Baso # (Auto) (0.0-0.2) K/uL Neutrophils % (Manual) (50-75) % Band Neutrophils % (0-2) % Lymphocytes % (Manual) (20-40) % Reactive Lymphs % (0-0) % Monocytes % (Manual) (0-10) % Toxic Granulation Platelet Estimate (NORMAL) Large Platelets Anisocytosis (manual) Puncture Site R rad pCO2 30 L (35-45) mm/Hg pO2 69 L (80-100) mm/Hg HCO3 25.2 (21-28) mmol/L ABG pH 7.49 H (7.35-7.45) ABG Total CO2 23.8 (22-28) mmol/L ABG O2 Saturation 96.5 (95-98) % ABG Base Excess 0.4 (-2.0-3.0) mmol/L Erik Test Pos ABG Potassium 3.7 (3.6-5.2) mmol/L A-a O2 Difference 250.0 mm/Hg Respiratory Index 3.6 Sodium 155.0 H (132-148) mmol/l Chloride 125.0 H (98-107) mmol/L Glucose 332 H (65-105) mg/dl Lactate 2.1 (0.7-2.1) mmol/L Vent Mode Prvc Mechanical Rate 14 FiO2 50.0 % Tidal Volume 500 PEEP 5 Potassium (3.6-5.2) mmol/L Carbon Dioxide (22-30) mmol/L Anion Gap (10-20) BUN (7-17) mg/dL Creatinine (0.7-1.2) mg/dL Est GFR ( Amer) Est GFR (Non-Af Amer) POC Glucose (mg/dL) 233 H 308 H (65-110) mg/dL Random Glucose (65-105) mg/dL Calcium (8.6-10.4) mg/dl Phosphorus (2.5-4.5) mg/dL Magnesium (1.6-2.3) mg/dL Total Bilirubin (0.2-1.3) mg/dL AST (14-36) U/L ALT (9-52) U/L Alkaline Phosphatase (38-126) U/L Total Protein (6.3-8.3) g/dL Albumin (3.5-5.0) g/dL Globulin (2.2-3.9) gm/dL Albumin/Globulin Ratio (1.0-2.1) Arterial Blood Potassium 3.7 (3.6-5.2) mmol/L Oxycodone Screen Ur Oxycodone Comment 05/04/18 05/04/18 05/02/18 Range/Units 18:08 11:35 04:48 WBC (4.8-10.8) K/uL RBC (3.80-5.20) Mil/uL Hgb (11.0-16.0) g/dL Hct (34.0-47.0) % MCV (81.0-99.0) fL MCH (27.0-31.0) pg MCHC (33.0-37.0) g/dL RDW (11.5-14.5) % Plt Count (130-400) K/uL MPV (7.2-11.7) fL Neut % (Auto) (50.0-75.0) % Lymph % (Auto) (20.0-40.0) % [place] % (Auto) (0.0-10.0) % Eos % (Auto) (0.0-4.0) % Baso % (Auto) (0.0-2.0) % Neut # (Auto) (1.8-7.0) K/uL Lymph # (Auto) (1.0-4.3) K/uL [place] # (Auto) (0.0-0.8) K/uL Eos # (Auto) (0.0-0.7) K/uL Baso # (Auto) (0.0-0.2) K/uL Neutrophils % (Manual) (50-75) % Band Neutrophils % (0-2) % Lymphocytes % (Manual) (20-40) % Reactive Lymphs % (0-0) % Monocytes % (Manual) (0-10) % Toxic Granulation Platelet Estimate (NORMAL) Large Platelets Anisocytosis (manual) Puncture Site pCO2 (35-45) mm/Hg pO2 (80-100) mm/Hg HCO3 (21-28) mmol/L ABG pH (7.35-7.45) ABG Total CO2 (22-28) mmol/L ABG O2 Saturation (95-98) % ABG Base Excess (-2.0-3.0) mmol/L Erik Test ABG Potassium (3.6-5.2) mmol/L A-a O2 Difference mm/Hg Respiratory Index Sodium (132-148) mmol/l Chloride (98-107) mmol/L Glucose (65-105) mg/dl Lactate (0.7-2.1) mmol/L Vent Mode Mechanical Rate FiO2 % Tidal Volume PEEP Potassium (3.6-5.2) mmol/L Carbon Dioxide (22-30) mmol/L Anion Gap (10-20) BUN (7-17) mg/dL Creatinine (0.7-1.2) mg/dL Est GFR ( Amer) Est GFR (Non-Af Amer) POC Glucose (mg/dL) 287 H 261 H (65-110) mg/dL Random Glucose (65-105) mg/dL Calcium (8.6-10.4) mg/dl Phosphorus (2.5-4.5) mg/dL Magnesium (1.6-2.3) mg/dL Total Bilirubin (0.2-1.3) mg/dL AST (14-36) U/L ALT (9-52) U/L Alkaline Phosphatase (38-126) U/L Total Protein (6.3-8.3) g/dL Albumin (3.5-5.0) g/dL Globulin (2.2-3.9) gm/dL Albumin/Globulin Ratio (1.0-2.1) Arterial Blood Potassium (3.6-5.2) mmol/L Oxycodone Screen negative Ur Oxycodone Comment See note Laboratory Results - last 24 hr 05/02/18 05/04/18 05/04/18 04:48 11:35 18:08 WBC RBC Hgb Hct MCV MCH MCHC RDW Plt Count MPV Neut % (Auto) Lymph % (Auto) [place] % (Auto) Eos % (Auto) Baso % (Auto) Neut # (Auto) Lymph # (Auto) [place] # (Auto) Eos # (Auto) Baso # (Auto) Neutrophils % (Manual) Band Neutrophils % Lymphocytes % (Manual) Reactive Lymphs % Monocytes % (Manual) Toxic Granulation Platelet Estimate Large Platelets Anisocytosis (manual) Puncture Site pCO2 pO2 HCO3 ABG pH ABG Total CO2 ABG O2 Saturation ABG Base Excess Erik Test ABG Potassium A-a O2 Difference Respiratory Index Sodium Chloride Glucose Lactate Vent Mode Mechanical Rate FiO2 Tidal Volume PEEP Potassium Carbon Dioxide Anion Gap BUN Creatinine Est GFR ( Amer) Est GFR (Non-Af Amer) POC Glucose (mg/dL) 261 H 287 H Random Glucose Calcium Phosphorus Magnesium Total Bilirubin AST ALT Alkaline Phosphatase Total Protein Albumin Globulin Albumin/Globulin Ratio Arterial Blood Potassium Oxycodone Screen negative Ur Oxycodone Comment See note 05/04/18 05/05/18 05/05/18 23:27 05:19 05:38 WBC RBC Hgb Hct MCV MCH MCHC RDW Plt Count MPV Neut % (Auto) Lymph % (Auto) [place] % (Auto) Eos % (Auto) Baso % (Auto) Neut # (Auto) Lymph # (Auto) [place] # (Auto) Eos # (Auto) Baso # (Auto) Neutrophils % (Manual) Band Neutrophils % Lymphocytes % (Manual) Reactive Lymphs % Monocytes % (Manual) Toxic Granulation Platelet Estimate Large Platelets Anisocytosis (manual) Puncture Site R rad pCO2 30 L pO2 69 L HCO3 25.2 ABG pH 7.49 H ABG Total CO2 23.8 ABG O2 Saturation 96.5 ABG Base Excess 0.4 Erik Test Pos ABG Potassium 3.7 A-a O2 Difference 250.0 Respiratory Index 3.6 Sodium 155.0 H Chloride 125.0 H Glucose 332 H Lactate 2.1 Vent Mode Prvc Mechanical Rate 14 FiO2 50.0 Tidal Volume 500 PEEP 5 Potassium Carbon Dioxide Anion Gap BUN Creatinine Est GFR ( Amer) Est GFR (Non-Af Amer) POC Glucose (mg/dL) 308 H 233 H Random Glucose Calcium Phosphorus Magnesium Total Bilirubin AST ALT Alkaline Phosphatase Total Protein Albumin Globulin Albumin/Globulin Ratio Arterial Blood Potassium 3.7 Oxycodone Screen Ur Oxycodone Comment 05/05/18 05/05/18 05/05/18 05:50 05:50 11:35 WBC 23.9 H RBC 4.41 Hgb 11.5 Hct 34.6 MCV 78.7 L MCH 26.2 L MCHC 33.3 RDW 16.1 H Plt Count 170 MPV 11.7 Neut % (Auto) 88.5 H Lymph % (Auto) 7.4 L [place] % (Auto) 3.6 Eos % (Auto) 0.0 Baso % (Auto) 0.5 Neut # (Auto) 21.2 H Lymph # (Auto) 1.8 [place] # (Auto) 0.9 H Eos # (Auto) 0.0 Baso # (Auto) 0.1 Neutrophils % (Manual) 76 H Band Neutrophils % 11 H* Lymphocytes % (Manual) 8 L Reactive Lymphs % 1 H Monocytes % (Manual) 4 Toxic Granulation Present Platelet Estimate Normal Large Platelets Present Anisocytosis (manual) Slight Puncture Site pCO2 pO2 HCO3 ABG pH ABG Total CO2 ABG O2 Saturation ABG Base Excess Erik Test ABG Potassium A-a O2 Difference Respiratory Index Sodium 156 H Chloride 124 H Glucose Lactate Vent Mode Mechanical Rate FiO2 Tidal Volume PEEP Potassium 3.6 Carbon Dioxide 21 L Anion Gap 15 BUN 30 H Creatinine 0.9 Est GFR ( Amer) > 60 Est GFR (Non-Af Amer) > 60 POC Glucose (mg/dL) 197 H Random Glucose 264 H Calcium 7.5 L Phosphorus 2.8 Magnesium 2.4 H Total Bilirubin 0.8 AST 69 H D ALT 159 H D Alkaline Phosphatase 158 H D Total Protein 5.6 L Albumin 2.7 L Globulin 2.9 Albumin/Globulin Ratio 0.9 L Arterial Blood Potassium Oxycodone Screen Ur Oxycodone Comment Fingerstick Blood Sugar Results: 197 Review of Systems - Review of Systems Systems not reviewed;Unavailable: Acuity of Condition Assessment/Plan - Assessment and Plan (Free Text) Assessment: Assessment: This is a 52 year old female with probable past medical history of diabetes mellitus type 2 who was found unresponsive by on 05/01 (reportedly). EMS was called and patient was resuscitated and subsequently intubated on the field and brought to the ED. While in the ED: CODE STROKE was called, patient was subsequently admitted to ICU for close monitoring and evaluation for anoxic brain injury. Patient was noted on physical exam to have ring monge suggestive of suicidal attempt by hanging. [employer] is involved and state high likelihood of suicidal attempt. Neuro: Anoxic Brain Injury Possibly 2/2 Asphyxiation Possibly 2/2 Suicidal Attempt Via Hanging - Maintain bed elevation at 30 degrees - DDAVP 1mcg IVP once administered - [employer] involved and on case - Dr. Duff consulted: recommendations appreciated * Poor prognosis, but with some improvement in the exam * From 05/04 note: continue current management. * MRI of the brain is recommended to evaluate for evidence of hypoxic brain injury. * MRI brain ordered - EEG obtained: showed diffuse encephalopathy with burst suppression - CT without contrast 05/01 official report: * Negative CT of the brain. Incidental ethmoid sinusitis. - Repeat CT without contrast 05/03 official report: * Stable poor cortical medullary differentiation with scattered edematous changes. No significant interval changes - Repeat CT without contrast 05/04 official report: * Little interval change in poor corticomedullary differentiation an indistinct appearance of the basal ganglia compatible with mild cerebral edema * Abnormal appearance of bilateral thalamocapsular regions concerning for hypoxic anoxic insult. - Patient was transferred to [facility] for MRI brain without contrast 05/05: * cortical ischemia conssistent with anoxic pattern; ischemia to the midbrain consistent with CT findings. - Continue neuro checks - Monitor CV: - Rule out ACS: serial trops Q8 negative x3 - Original EKG did not meet code heart criteria. - 3rd Trop elevated to 5.06 05/02 - pro BNP 35 - Heparin SC - ECHO official report: * LV systolic function is normal * EF > 70% * Transmitral Doppler flow pattern is Grade I- abnormal relaxation pattern - Tachycardia observed on telemetry - Nicardipine 5 mg/hr drip began this AM - Cardiology consulted; Dr. Gay; recommendations appreciated * Amlodipine 10 mg PO, Vasotec 1.25 mg IV and Metoprolol 5 mg IV given overnight. Will likely increase daily B bartolo - ASA, Statin, B-bartolo medical therapy - Continue to monitor - Monitor Pulm: Acute Respiratory Failure - on mechanical ventilation: decreased PEEP to 3 - Continue to titrate FiO2 to keep SpO2 > 92 - Continue bronchodilators - Monitor - CT chest abdomen pelvis without contrast official report: * Minimal bilateral pleural effusions * No fracture * No pneumothorax * Multifocal infiltrates at the bilateral upper and lower lobes as well as the right middle lobe in a pattern that could reflect aspiration given dependent subsegment affected Renal: Acute Renal Failure, improving - Consistent with ATN 2/2 ischemic vs septic - Product Marketing Coordinator consulted, recommendations appreciated * Agree with continue IVF as NS instead on 1/2 NS as has cerebral edema * Prefer to keep serum Na on higher side. * Once cerebral edema improves; switch to 0.45% saline. - START: 0.45% saline started @200mls/hr - Good urine output - No need for dialysis at this time Metabolic Acidosis - Likely 2/2 elevated lactic acid and/or DKA and/or ETOH consumption - Glycemic control - Continue to trend lactic acid - Monitor - Continue Thiamine 100 mg IV daily GI: - No acute issues - NG tube: tube feeds (Glucerna) starting at 25 - Pepcid for Ppx - CT chest abdomen pelvis without contrast official report: * Findings suspicious for segmental colitis involving separate vascular distribution of the colon. Limited abdominal and pelvic ascites noted. No free intra peritoneal gas collection appreciable Endo: Likely history of Diabetes Mellitus Type 2: uncontrolled - ISS: moderate - Hypoglycemic protocol - Accu checks Q6 - NPO diet - IVF - TSH - HgbA1c ID: Sepsis: suspect aspiration pneumonia - ID consulted (Dr. Mcgill); recommendations appreciated * Vanco - contiune * Zosyn - discontinued * Start Meropenem - Sommers culture - Serial Lactic Acid; improving - Chest X-Ray 05/03: * Improved aeration in the right lower lobe with persistent dense consolidation and presumable patchy pneumonia in the left lower lobe. * Stable position of support tubes. Patient seen and case discussed in detail with Dr. Mika Plasencia PGY1 <Mookie Brennan S - Last Filed: 05/05/18 18:22> CCU Objective - Vital Signs / Intake & Output Vital Signs (Last 4 hours): Vital Signs Pulse Resp BP Pulse Ox 05/05/18 14:30 112 H 26 H 100 05/05/18 14:29 110 H 26 H 152/85 H 99 Intake and Output (Last 8hrs): Intake & Output 05/05/18 05/05/18 05/05/18 06:59 14:59 22:59 Intake Total 550 525 225 Output Total 1200 1500 300 Balance -650 -975 -75 Weight 154 lb 3.36 oz Intake: Intake, IV Amount 550 400 150 Right PICC 550 400 150 Tube Feeding 125 75 Output: Urine 1200 1500 300 Urethral (Alvarado) 1200 1500 300 Other: # Voids Urethral (Alvarado) 0 - Medications Active Medications: Active Medications Generic Name Dose Route Start Last Admin Trade Name Freq PRN Reason Stop Dose Admin Albuterol/Ipratropium 3 ml 05/02/18 04:00 05/05/18 15:46 Duoneb 3 Mg/0.5 Mg (3 Ml) Ud INH 3 ml RQ4 BETH Administration Aspirin 81 mg 05/02/18 10:00 05/05/18 09:22 Ecotrin PO 81 mg DAILY BETH Administration Dextrose 0 ml 05/03/18 12:05 Dextrose 50% Inj IV STAT PRN Hypoglycemia Protocol Protocol Dextrose 15 gm 05/03/18 12:05 Glutose 15 PO ONCE PRN Hypoglycemia Protocol Protocol Glucagon 1 mg 05/03/18 12:05 Glucagen Diagnostic Kit IM STAT PRN Hypoglycemia Protocol Protocol Heparin Sodium (Porcine) 5,000 units 05/03/18 14:00 05/05/18 13:18 Heparin SC 5,000 units Q8 BETH Administration Levetiracetam 1,000 mg/ Sodium 110 mls @ 420 mls/hr 05/02/18 11:30 05/05/18 11:45 Chloride IVPB 420 mls/hr Q12H BETH Administration Vancomycin HCl 1,000 mg/ 200 mls @ 133.333 mls/hr 05/02/18 19:00 05/05/18 06:27 Sodium Chloride IVPB 133.333 mls/hr Q12H BETH Administration Protocol Meropenem 1 gm/ Sodium 100 mls @ 100 mls/hr 05/02/18 18:30 05/05/18 12:00 Chloride IVPB 100 mls/hr Q8H BETH Administration Protocol Nicardipine HCl 25 mg/ Sodium 250 mls @ 50 mls/hr 05/05/18 07:15 05/05/18 08:08 Chloride IV 5 mg/hr .Q5H PRN 50 mls/hr TITRATE PER PROTOCOL Administration Protocol 5 MG/HR Sodium Chloride 1,000 mls @ 200 mls/hr 05/05/18 12:00 05/05/18 12:00 Sodium Chloride 0.45% IV 200 mls/hr .Q5H BETH Administration Dextrose 1,000 mls @ 0 mls/hr 05/05/18 13:57 Dextrose 5% In Water 1000 Ml IV .Q0M PRN Hypoglycemia Protocol Protocol Per Protocol Ibuprofen 200 mg 05/05/18 17:37 Motrin Oral Susp PO Q6H PRN Fever >100.4 F Insulin Aspart 0 unit 05/03/18 18:00 05/05/18 12:49 Novolog SC 2 units Q6 BETH Administration Protocol Metoprolol Tartrate 5 mg 05/04/18 10:00 05/05/18 10:00 Lopressor IVP Not Given DAILY BETH Pantoprazole Sodium 40 mg 05/06/18 10:00 Protonix Susp NG DAILY BETH Rosuvastatin Calcium 5 mg 05/03/18 22:00 05/04/18 22:31 Crestor PO 5 mg HS BETH Administration Thiamine HCl 100 mg 05/03/18 10:45 05/05/18 09:22 Vitamin B1 Inj IV 100 mg DAILY BETH Administration - Patient Studies Lab Studies: Microbiology Studies 05/02/18 01:08 Blood Culture - Preliminary Blood-Venous NO GROWTH AFTER 3 DAYS 05/02/18 01:07 Blood Culture - Preliminary Blood-Venous NO GROWTH AFTER 3 DAYS Lab Studies 05/05/18 05/05/18 05/05/18 Range/Units 17:44 15:39 11:35 WBC (4.8-10.8) K/uL RBC (3.80-5.20) Mil/uL Hgb (11.0-16.0) g/dL Hct (34.0-47.0) % MCV (81.0-99.0) fL MCH (27.0-31.0) pg MCHC (33.0-37.0) g/dL RDW (11.5-14.5) % Plt Count (130-400) K/uL MPV (7.2-11.7) fL Neut % (Auto) (50.0-75.0) % Lymph % (Auto) (20.0-40.0) % [place] % (Auto) (0.0-10.0) % Eos % (Auto) (0.0-4.0) % Baso % (Auto) (0.0-2.0) % Neut # (Auto) (1.8-7.0) K/uL Lymph # (Auto) (1.0-4.3) K/uL [place] # (Auto) (0.0-0.8) K/uL Eos # (Auto) (0.0-0.7) K/uL Baso # (Auto) (0.0-0.2) K/uL Neutrophils % (Manual) (50-75) % Band Neutrophils % (0-2) % Lymphocytes % (Manual) (20-40) % Reactive Lymphs % (0-0) % Monocytes % (Manual) (0-10) % Toxic Granulation Platelet Estimate (NORMAL) Large Platelets Anisocytosis (manual) Puncture Site pCO2 (35-45) mm/Hg pO2 (80-100) mm/Hg HCO3 (21-28) mmol/L ABG pH (7.35-7.45) ABG Total CO2 (22-28) mmol/L ABG O2 Saturation (95-98) % ABG Base Excess (-2.0-3.0) mmol/L Erik Test ABG Potassium (3.6-5.2) mmol/L A-a O2 Difference mm/Hg Respiratory Index Sodium 153 H (132-148) mmol/l Chloride 120 H (98-107) mmol/L Glucose (65-105) mg/dl Lactate (0.7-2.1) mmol/L Vent Mode Mechanical Rate FiO2 % Tidal Volume PEEP Potassium 3.4 L (3.6-5.2) mmol/L Carbon Dioxide 25 (22-30) mmol/L Anion Gap 12 (10-20) BUN 25 H (7-17) mg/dL Creatinine 0.9 (0.7-1.2) mg/dL Est GFR ( Amer) > 60 Est GFR (Non-Af Amer) > 60 POC Glucose (mg/dL) 233 H 197 H (65-110) mg/dL Random Glucose 249 H (65-105) mg/dL Calcium 7.7 L (8.6-10.4) mg/dl Phosphorus (2.5-4.5) mg/dL Magnesium (1.6-2.3) mg/dL Total Bilirubin (0.2-1.3) mg/dL AST (14-36) U/L ALT (9-52) U/L Alkaline Phosphatase (38-126) U/L Total Protein (6.3-8.3) g/dL Albumin (3.5-5.0) g/dL Globulin (2.2-3.9) gm/dL Albumin/Globulin Ratio (1.0-2.1) Arterial Blood Potassium (3.6-5.2) mmol/L Oxycodone Screen Ur Oxycodone Comment 05/05/18 05/05/18 05/05/18 Range/Units 05:50 05:50 05:38 WBC 23.9 H (4.8-10.8) K/uL RBC 4.41 (3.80-5.20) Mil/uL Hgb 11.5 (11.0-16.0) g/dL Hct 34.6 (34.0-47.0) % MCV 78.7 L (81.0-99.0) fL MCH 26.2 L (27.0-31.0) pg MCHC 33.3 (33.0-37.0) g/dL RDW 16.1 H (11.5-14.5) % Plt Count 170 (130-400) K/uL MPV 11.7 (7.2-11.7) fL Neut % (Auto) 88.5 H (50.0-75.0) % Lymph % (Auto) 7.4 L (20.0-40.0) % [place] % (Auto) 3.6 (0.0-10.0) % Eos % (Auto) 0.0 (0.0-4.0) % Baso % (Auto) 0.5 (0.0-2.0) % Neut # (Auto) 21.2 H (1.8-7.0) K/uL Lymph # (Auto) 1.8 (1.0-4.3) K/uL [place] # (Auto) 0.9 H (0.0-0.8) K/uL Eos # (Auto) 0.0 (0.0-0.7) K/uL Baso # (Auto) 0.1 (0.0-0.2) K/uL Neutrophils % (Manual) 76 H (50-75) % Band Neutrophils % 11 H* (0-2) % Lymphocytes % (Manual) 8 L (20-40) % Reactive Lymphs % 1 H (0-0) % Monocytes % (Manual) 4 (0-10) % Toxic Granulation Present Platelet Estimate Normal (NORMAL) Large Platelets Present Anisocytosis (manual) Slight Puncture Site R rad pCO2 30 L (35-45) mm/Hg pO2 69 L (80-100) mm/Hg HCO3 25.2 (21-28) mmol/L ABG pH 7.49 H (7.35-7.45) ABG Total CO2 23.8 (22-28) mmol/L ABG O2 Saturation 96.5 (95-98) % ABG Base Excess 0.4 (-2.0-3.0) mmol/L Erik Test Pos ABG Potassium 3.7 (3.6-5.2) mmol/L A-a O2 Difference 250.0 mm/Hg Respiratory Index 3.6 Sodium 156 H 155.0 H (132-148) mmol/l Chloride 124 H 125.0 H (98-107) mmol/L Glucose 332 H (65-105) mg/dl Lactate 2.1 (0.7-2.1) mmol/L Vent Mode Prvc Mechanical Rate 14 FiO2 50.0 % Tidal Volume 500 PEEP 5 Potassium 3.6 (3.6-5.2) mmol/L Carbon Dioxide 21 L (22-30) mmol/L Anion Gap 15 (10-20) BUN 30 H (7-17) mg/dL Creatinine 0.9 (0.7-1.2) mg/dL Est GFR ( Amer) > 60 Est GFR (Non-Af Amer) > 60 POC Glucose (mg/dL) (65-110) mg/dL Random Glucose 264 H (65-105) mg/dL Calcium 7.5 L (8.6-10.4) mg/dl Phosphorus 2.8 (2.5-4.5) mg/dL Magnesium 2.4 H (1.6-2.3) mg/dL Total Bilirubin 0.8 (0.2-1.3) mg/dL AST 69 H D (14-36) U/L ALT 159 H D (9-52) U/L Alkaline Phosphatase 158 H D (38-126) U/L Total Protein 5.6 L (6.3-8.3) g/dL Albumin 2.7 L (3.5-5.0) g/dL Globulin 2.9 (2.2-3.9) gm/dL Albumin/Globulin Ratio 0.9 L (1.0-2.1) Arterial Blood Potassium 3.7 (3.6-5.2) mmol/L Oxycodone Screen Ur Oxycodone Comment 05/05/18 05/04/18 05/04/18 Range/Units 05:19 23:27 18:08 WBC (4.8-10.8) K/uL RBC (3.80-5.20) Mil/uL Hgb (11.0-16.0) g/dL Hct (34.0-47.0) % MCV (81.0-99.0) fL MCH (27.0-31.0) pg MCHC (33.0-37.0) g/dL RDW (11.5-14.5) % Plt Count (130-400) K/uL MPV (7.2-11.7) fL Neut % (Auto) (50.0-75.0) % Lymph % (Auto) (20.0-40.0) % [place] % (Auto) (0.0-10.0) % Eos % (Auto) (0.0-4.0) % Baso % (Auto) (0.0-2.0) % Neut # (Auto) (1.8-7.0) K/uL Lymph # (Auto) (1.0-4.3) K/uL [place] # (Auto) (0.0-0.8) K/uL Eos # (Auto) (0.0-0.7) K/uL Baso # (Auto) (0.0-0.2) K/uL Neutrophils % (Manual) (50-75) % Band Neutrophils % (0-2) % Lymphocytes % (Manual) (20-40) % Reactive Lymphs % (0-0) % Monocytes % (Manual) (0-10) % Toxic Granulation Platelet Estimate (NORMAL) Large Platelets Anisocytosis (manual) Puncture Site pCO2 (35-45) mm/Hg pO2 (80-100) mm/Hg HCO3 (21-28) mmol/L ABG pH (7.35-7.45) ABG Total CO2 (22-28) mmol/L ABG O2 Saturation (95-98) % ABG Base Excess (-2.0-3.0) mmol/L Erik Test ABG Potassium (3.6-5.2) mmol/L A-a O2 Difference mm/Hg Respiratory Index Sodium (132-148) mmol/l Chloride (98-107) mmol/L Glucose (65-105) mg/dl Lactate (0.7-2.1) mmol/L Vent Mode Mechanical Rate FiO2 % Tidal Volume PEEP Potassium (3.6-5.2) mmol/L Carbon Dioxide (22-30) mmol/L Anion Gap (10-20) BUN (7-17) mg/dL Creatinine (0.7-1.2) mg/dL Est GFR ( Amer) Est GFR (Non-Af Amer) POC Glucose (mg/dL) 233 H 308 H 287 H (65-110) mg/dL Random Glucose (65-105) mg/dL Calcium (8.6-10.4) mg/dl Phosphorus (2.5-4.5) mg/dL Magnesium (1.6-2.3) mg/dL Total Bilirubin (0.2-1.3) mg/dL AST (14-36) U/L ALT (9-52) U/L Alkaline Phosphatase (38-126) U/L Total Protein (6.3-8.3) g/dL Albumin (3.5-5.0) g/dL Globulin (2.2-3.9) gm/dL Albumin/Globulin Ratio (1.0-2.1) Arterial Blood Potassium (3.6-5.2) mmol/L Oxycodone Screen Ur Oxycodone Comment 05/02/18 Range/Units 04:48 WBC (4.8-10.8) K/uL RBC (3.80-5.20) Mil/uL Hgb (11.0-16.0) g/dL Hct (34.0-47.0) % MCV (81.0-99.0) fL MCH (27.0-31.0) pg MCHC (33.0-37.0) g/dL RDW (11.5-14.5) % Plt Count (130-400) K/uL MPV (7.2-11.7) fL Neut % (Auto) (50.0-75.0) % Lymph % (Auto) (20.0-40.0) % [place] % (Auto) (0.0-10.0) % Eos % (Auto) (0.0-4.0) % Baso % (Auto) (0.0-2.0) % Neut # (Auto) (1.8-7.0) K/uL Lymph # (Auto) (1.0-4.3) K/uL [place] # (Auto) (0.0-0.8) K/uL Eos # (Auto) (0.0-0.7) K/uL Baso # (Auto) (0.0-0.2) K/uL Neutrophils % (Manual) (50-75) % Band Neutrophils % (0-2) % Lymphocytes % (Manual) (20-40) % Reactive Lymphs % (0-0) % Monocytes % (Manual) (0-10) % Toxic Granulation Platelet Estimate (NORMAL) Large Platelets Anisocytosis (manual) Puncture Site pCO2 (35-45) mm/Hg pO2 (80-100) mm/Hg HCO3 (21-28) mmol/L ABG pH (7.35-7.45) ABG Total CO2 (22-28) mmol/L ABG O2 Saturation (95-98) % ABG Base Excess (-2.0-3.0) mmol/L Erik Test ABG Potassium (3.6-5.2) mmol/L A-a O2 Difference mm/Hg Respiratory Index Sodium (132-148) mmol/l Chloride (98-107) mmol/L Glucose (65-105) mg/dl Lactate (0.7-2.1) mmol/L Vent Mode Mechanical Rate FiO2 % Tidal Volume PEEP Potassium (3.6-5.2) mmol/L Carbon Dioxide (22-30) mmol/L Anion Gap (10-20) BUN (7-17) mg/dL Creatinine (0.7-1.2) mg/dL Est GFR ( Amer) Est GFR (Non-Af Amer) POC Glucose (mg/dL) (65-110) mg/dL Random Glucose (65-105) mg/dL Calcium (8.6-10.4) mg/dl Phosphorus (2.5-4.5) mg/dL Magnesium (1.6-2.3) mg/dL Total Bilirubin (0.2-1.3) mg/dL AST (14-36) U/L ALT (9-52) U/L Alkaline Phosphatase (38-126) U/L Total Protein (6.3-8.3) g/dL Albumin (3.5-5.0) g/dL Globulin (2.2-3.9) gm/dL Albumin/Globulin Ratio (1.0-2.1) Arterial Blood Potassium (3.6-5.2) mmol/L Oxycodone Screen negative Ur Oxycodone Comment See note Laboratory Results - last 24 hr 05/02/18 05/04/18 05/04/18 04:48 18:08 23:27 WBC RBC Hgb Hct MCV MCH MCHC RDW Plt Count MPV Neut % (Auto) Lymph % (Auto) [place] % (Auto) Eos % (Auto) Baso % (Auto) Neut # (Auto) Lymph # (Auto) [place] # (Auto) Eos # (Auto) Baso # (Auto) Neutrophils % (Manual) Band Neutrophils % Lymphocytes % (Manual) Reactive Lymphs % Monocytes % (Manual) Toxic Granulation Platelet Estimate Large Platelets Anisocytosis (manual) Puncture Site pCO2 pO2 HCO3 ABG pH ABG Total CO2 ABG O2 Saturation ABG Base Excess Erik Test ABG Potassium A-a O2 Difference Respiratory Index Sodium Chloride Glucose Lactate Vent Mode Mechanical Rate FiO2 Tidal Volume PEEP Potassium Carbon Dioxide Anion Gap BUN Creatinine Est GFR ( Amer) Est GFR (Non-Af Amer) POC Glucose (mg/dL) 287 H 308 H Random Glucose Calcium Phosphorus Magnesium Total Bilirubin AST ALT Alkaline Phosphatase Total Protein Albumin Globulin Albumin/Globulin Ratio Arterial Blood Potassium Oxycodone Screen negative Ur Oxycodone Comment See note 05/05/18 05/05/18 05/05/18 05:19 05:38 05:50 WBC 23.9 H RBC 4.41 Hgb 11.5 Hct 34.6 MCV 78.7 L MCH 26.2 L MCHC 33.3 RDW 16.1 H Plt Count 170 MPV 11.7 Neut % (Auto) 88.5 H Lymph % (Auto) 7.4 L [place] % (Auto) 3.6 Eos % (Auto) 0.0 Baso % (Auto) 0.5 Neut # (Auto) 21.2 H Lymph # (Auto) 1.8 [place] # (Auto) 0.9 H Eos # (Auto) 0.0 Baso # (Auto) 0.1 Neutrophils % (Manual) 76 H Band Neutrophils % 11 H* Lymphocytes % (Manual) 8 L Reactive Lymphs % 1 H Monocytes % (Manual) 4 Toxic Granulation Present Platelet Estimate Normal Large Platelets Present Anisocytosis (manual) Slight Puncture Site R rad pCO2 30 L pO2 69 L HCO3 25.2 ABG pH 7.49 H ABG Total CO2 23.8 ABG O2 Saturation 96.5 ABG Base Excess 0.4 Erik Test Pos ABG Potassium 3.7 A-a O2 Difference 250.0 Respiratory Index 3.6 Sodium 155.0 H Chloride 125.0 H Glucose 332 H Lactate 2.1 Vent Mode Prvc Mechanical Rate 14 FiO2 50.0 Tidal Volume 500 PEEP 5 Potassium Carbon Dioxide Anion Gap BUN Creatinine Est GFR ( Amer) Est GFR (Non-Af Amer) POC Glucose (mg/dL) 233 H Random Glucose Calcium Phosphorus Magnesium Total Bilirubin AST ALT Alkaline Phosphatase Total Protein Albumin Globulin Albumin/Globulin Ratio Arterial Blood Potassium 3.7 Oxycodone Screen Ur Oxycodone Comment 05/05/18 05/05/18 05/05/18 05:50 11:35 15:39 WBC RBC Hgb Hct MCV MCH MCHC RDW Plt Count MPV Neut % (Auto) Lymph % (Auto) [place] % (Auto) Eos % (Auto) Baso % (Auto) Neut # (Auto) Lymph # (Auto) [place] # (Auto) Eos # (Auto) Baso # (Auto) Neutrophils % (Manual) Band Neutrophils % Lymphocytes % (Manual) Reactive Lymphs % Monocytes % (Manual) Toxic Granulation Platelet Estimate Large Platelets Anisocytosis (manual) Puncture Site pCO2 pO2 HCO3 ABG pH ABG Total CO2 ABG O2 Saturation ABG Base Excess Erik Test ABG Potassium A-a O2 Difference Respiratory Index Sodium 156 H 153 H Chloride 124 H 120 H Glucose Lactate Vent Mode Mechanical Rate FiO2 Tidal Volume PEEP Potassium 3.6 3.4 L Carbon Dioxide 21 L 25 Anion Gap 15 12 BUN 30 H 25 H Creatinine 0.9 0.9 Est GFR ( Amer) > 60 > 60 Est GFR (Non-Af Amer) > 60 > 60 POC Glucose (mg/dL) 197 H Random Glucose 264 H 249 H Calcium 7.5 L 7.7 L Phosphorus 2.8 Magnesium 2.4 H Total Bilirubin 0.8 AST 69 H D ALT 159 H D Alkaline Phosphatase 158 H D Total Protein 5.6 L Albumin 2.7 L Globulin 2.9 Albumin/Globulin Ratio 0.9 L Arterial Blood Potassium Oxycodone Screen Ur Oxycodone Comment 05/05/18 17:44 WBC RBC Hgb Hct MCV MCH MCHC RDW Plt Count MPV Neut % (Auto) Lymph % (Auto) [place] % (Auto) Eos % (Auto) Baso % (Auto) Neut # (Auto) Lymph # (Auto) [place] # (Auto) Eos # (Auto) Baso # (Auto) Neutrophils % (Manual) Band Neutrophils % Lymphocytes % (Manual) Reactive Lymphs % Monocytes % (Manual) Toxic Granulation Platelet Estimate Large Platelets Anisocytosis (manual) Puncture Site pCO2 pO2 HCO3 ABG pH ABG Total CO2 ABG O2 Saturation ABG Base Excess Erik Test ABG Potassium A-a O2 Difference Respiratory Index Sodium Chloride Glucose Lactate Vent Mode Mechanical Rate FiO2 Tidal Volume PEEP Potassium Carbon Dioxide Anion Gap BUN Creatinine Est GFR ( Amer) Est GFR (Non-Af Amer) POC Glucose (mg/dL) 233 H Random Glucose Calcium Phosphorus Magnesium Total Bilirubin AST ALT Alkaline Phosphatase Total Protein Albumin Globulin Albumin/Globulin Ratio Arterial Blood Potassium Oxycodone Screen Ur Oxycodone Comment Attending/Attestation - Attestation I have personally seen and examined this patient.: Yes I have fully participated in the care of the patient.: Yes I have reviewed all pertinent clinical information: Yes Notes (Text): 05/05/18 18:21 patient seen and examined in the intensive care unit. Intubated on ventilatory support No change in mental status MRI of the brain done Case discussed with neurology with poor prognosis Consider trach and PEG Continue antibiotics
--- NOTE | 2018-05-05 18:14 | CP.PCM.PN ---
Subjective - Date & Time of Evaluation Date of Evaluation: 05/05/18 Time of Evaluation: 08:00 - Subjective Subjective: events noted bilat infiltrates Objective - Vital Signs/Intake and Output Vital Signs (last 24 hours): Temp Pulse Resp BP Pulse Ox 98.4 F 112 H 26 H 152/85 H 100 05/05/18 08:00 05/05/18 14:30 05/05/18 14:30 05/05/18 14:29 05/05/18 14:30 Intake and Output: 05/05/18 05/05/18 06:59 18:59 Intake Total 975 750 Output Total 1425 1800 Balance -450 -1050 - Medications Medications: Current Medications Albuterol/Ipratropium (Duoneb 3 Mg/0.5 Mg (3 Ml) Ud) 3 ml INH RQ4 [facility] Last Admin: 05/05/18 15:46 Dose: 3 ml Aspirin (Ecotrin) 81 mg PO DAILY [facility] Last Admin: 05/05/18 09:22 Dose: 81 mg Dextrose (Dextrose 50% Inj) 0 ml IV STAT PRN; Protocol PRN Reason: Hypoglycemia Protocol Dextrose (Glutose 15) 15 gm PO ONCE PRN; Protocol PRN Reason: Hypoglycemia Protocol Glucagon (Glucagen Diagnostic Kit) 1 mg IM STAT PRN; Protocol PRN Reason: Hypoglycemia Protocol Heparin Sodium (Porcine) (Heparin) 5,000 units SC Q8 [facility] Last Admin: 05/05/18 13:18 Dose: 5,000 units Levetiracetam 1,000 mg/ Sodium (Chloride) 110 mls @ 420 mls/hr IVPB Q12H [facility] Last Admin: 05/05/18 11:45 Dose: 420 mls/hr Vancomycin HCl 1,000 mg/ (Sodium Chloride) 200 mls @ 133.333 mls/hr IVPB Q12H [facility]; Protocol Last Admin: 05/05/18 06:27 Dose: 133.333 mls/hr Meropenem 1 gm/ Sodium (Chloride) 100 mls @ 100 mls/hr IVPB Q8H [facility]; Protocol Last Admin: 05/05/18 12:00 Dose: 100 mls/hr Nicardipine HCl 25 mg/ Sodium (Chloride) 250 mls @ 50 mls/hr IV .Q5H PRN; Protocol PRN Reason: TITRATE PER PROTOCOL Last Admin: 05/05/18 08:08 Dose: 5 mg/hr, 50 mls/hr Sodium Chloride (Sodium Chloride 0.45%) 1,000 mls @ 200 mls/hr IV .Q5H [facility] Last Admin: 05/05/18 12:00 Dose: 200 mls/hr Dextrose (Dextrose 5% In Water 1000 Ml) 1,000 mls @ 0 mls/hr IV .Q0M PRN; Protocol PRN Reason: Hypoglycemia Protocol Ibuprofen (Motrin Oral Susp) 200 mg PO Q6H PRN PRN Reason: Fever >100.4 F Insulin Aspart (Novolog) 0 unit SC Q6 [facility]; Protocol Last Admin: 05/05/18 12:49 Dose: 2 units Metoprolol Tartrate (Lopressor) 5 mg IVP DAILY [facility] Last Admin: 05/05/18 10:00 Dose: Not Given Pantoprazole Sodium (Protonix Susp) 40 mg NG DAILY [facility] Rosuvastatin Calcium (Crestor) 5 mg PO HS [facility] Last Admin: 05/04/18 22:31 Dose: 5 mg Thiamine HCl (Vitamin B1 Inj) 100 mg IV DAILY [facility] Last Admin: 05/05/18 09:22 Dose: 100 mg - Labs Labs: 05/05/18 05:50 05/05/18 15:39 PT 12.6 SECONDS (9.7-12.2) H 05/02/18 13:23 INR 1.2 05/02/18 13:23 APTT 128 SECONDS (21-34) H* D 05/02/18 20:39 - Constitutional Appears: Confused - Head Exam Head Exam: NORMOCEPHALIC - Eye Exam Eye Exam: absent: Scleral icterus - ENT Exam ENT Exam: Mucous Membranes Dry - Neck Exam Neck Exam: absent: Lymphadenopathy - Respiratory Exam Respiratory Exam: Decreased Breath Sounds - Cardiovascular Exam Cardiovascular Exam: REGULAR RHYTHM - GI/Abdominal Exam GI & Abdominal Exam: Distended - Rectal Exam Rectal Exam: Deferred - Exam Exam: NORMAL INSPECTION Assessment and Plan (1) Hyperglycemia Status: Acute (2) Leukocytosis Status: Acute (3) Respiratory failure Status: Acute - Assessment and Plan (Free Text) Assessment: s/p suicide attempt anoxia pneumonia sepsis poor prognosis
--- NOTE | 2018-05-05 19:12 | CP.PCM.PN ---
Subjective - Date & Time of Evaluation Date of Evaluation: 05/05/18 Time of Evaluation: 17:15 - Subjective Subjective: Hospitalist Progress Note Patient was seen and examined at 5:15 PM 05/05/18 ICU Bed #18 General: Intubated on vent, nonresponsive HEENT: NCA, Pupils are round and reactive to light, NO cervical/supraclavicular/submandibular lymphadenopathy, Right mid to lateral neck there is a 1 mm thick eschar Cardio: NS1 and NS2, NO M/R/G Respiratory: Diffuse course breath sounds bilaterallly GI: BSx4 are decreased, Soft, ND, NO HSM, NO guarding Ext: Pulses are strong and equal, Capillary Refill is 2 seconds, Nonpitting edema noted in the bilateral hands/arms Neuro: exam not possible at this time 1.Respiratory failure due to strangulation/possible suicide attempt Intubated and on vent 2. NSTMI Elevated troponin,EKG asprin ,off heparin drip,metoprolol Dr Gay consulted 3.Leukocytosis,bandemia,high pro mariia ,fever R/O Sepsis Dr Mcgill consulted likely aspiration continue zosyn ,vanco follow cultures chest x ray shows right lung infiltrate 4. Anoxic brain injury neurologist Dr Vanegas consulted EEG showed diffuse encephalopathy with burst suppression. follow repeat CT head-no bleeding palliative consult requested MRI Brain: most compatible with subacute favored over acute cereberal hypoxic insult with minimal involvement of the lower haris and the cerebellar hemispheres 5.Transaminitis likely shock liver,follow LFT 6. Asphyxia neck abrasion suspicious for strangulation Police was called and investigated by police for possibility of suicide 7.Diabetes mellitus HA1c,Finger stick with insulin coverage 8. ARF Likely Secondary to ATN with Hypernatremia As Brain MRI does not show evidence of edema, ICU Team has started 1/2 NS at 200 ml/hour 8. Prophylaxis DVT -on heparin GI is on protonix Spoke with Sister Yamileth Hodge who was at bedside with the help of Nurse Renata who translated [place]ian and explained the above. The number where she can be reached is [phone]. Will speak with Palliative Care Nurse Antoni on morning 05/06/18 to speak with sister. Vick Kerns D.O. Objective - Vital Signs/Intake and Output Vital Signs (last 24 hours): Temp Pulse Resp BP Pulse Ox 100.0 F H 110 H 25 H 161/64 H 100 05/05/18 17:00 05/05/18 18:17 05/05/18 18:17 05/05/18 18:17 05/05/18 18:17 Intake and Output: 05/05/18 05/06/18 18:59 06:59 Intake Total 1075 Output Total 2400 Balance -1325 - Medications Medications: Current Medications Albuterol/Ipratropium (Duoneb 3 Mg/0.5 Mg (3 Ml) Ud) 3 ml INH RQ4 [facility] Last Admin: 05/05/18 15:46 Dose: 3 ml Aspirin (Ecotrin) 81 mg PO DAILY [facility] Last Admin: 05/05/18 09:22 Dose: 81 mg Dextrose (Dextrose 50% Inj) 0 ml IV STAT PRN; Protocol PRN Reason: Hypoglycemia Protocol Dextrose (Glutose 15) 15 gm PO ONCE PRN; Protocol PRN Reason: Hypoglycemia Protocol Glucagon (Glucagen Diagnostic Kit) 1 mg IM STAT PRN; Protocol PRN Reason: Hypoglycemia Protocol Heparin Sodium (Porcine) (Heparin) 5,000 units SC Q8 [facility] Last Admin: 05/05/18 13:18 Dose: 5,000 units Levetiracetam 1,000 mg/ Sodium (Chloride) 110 mls @ 420 mls/hr IVPB Q12H [facility] Last Admin: 05/05/18 11:45 Dose: 420 mls/hr Vancomycin HCl 1,000 mg/ (Sodium Chloride) 200 mls @ 133.333 mls/hr IVPB Q12H [facility]; Protocol Last Admin: 05/05/18 18:53 Dose: 133.333 mls/hr Meropenem 1 gm/ Sodium (Chloride) 100 mls @ 100 mls/hr IVPB Q8H [facility]; Protocol Last Admin: 05/05/18 17:40 Dose: 100 mls/hr Nicardipine HCl 25 mg/ Sodium (Chloride) 250 mls @ 50 mls/hr IV .Q5H PRN; Protocol PRN Reason: TITRATE PER PROTOCOL Last Admin: 05/05/18 18:53 Dose: 5 mg/hr, 50 mls/hr Sodium Chloride (Sodium Chloride 0.45%) 1,000 mls @ 200 mls/hr IV .Q5H [facility] Last Admin: 05/05/18 12:00 Dose: 200 mls/hr Dextrose (Dextrose 5% In Water 1000 Ml) 1,000 mls @ 0 mls/hr IV .Q0M PRN; Protocol PRN Reason: Hypoglycemia Protocol Ibuprofen (Motrin Oral Susp) 200 mg PO Q6H PRN PRN Reason: Fever >100.4 F Insulin Aspart (Novolog) 0 unit SC Q6 [facility]; Protocol Last Admin: 05/05/18 18:52 Dose: 3 units Metoprolol Tartrate (Lopressor) 5 mg IVP DAILY [facility] Last Admin: 05/05/18 10:00 Dose: Not Given Pantoprazole Sodium (Protonix Susp) 40 mg NG DAILY [facility] Rosuvastatin Calcium (Crestor) 5 mg PO HS [facility] Last Admin: 05/04/18 22:31 Dose: 5 mg Thiamine HCl (Vitamin B1 Inj) 100 mg IV DAILY [facility] Last Admin: 05/05/18 09:22 Dose: 100 mg - Labs Labs: 05/05/18 05:50 05/05/18 15:39 PT 12.6 SECONDS (9.7-12.2) H 05/02/18 13:23 INR 1.2 05/02/18 13:23 APTT 128 SECONDS (21-34) H* D 05/02/18 20:39
[2018-05-06] MEDS: Albuterol-Ipratrop 3 mg / 0.5 (3 ml) UD INH SCH ×6 (00:53→19:03)
[2018-05-06] MEDS: Meropenem 1 GM in Sodium Chloride 0.9% 100 ML IVPB SCH ×3 (02:39→18:18)
[2018-05-06] MEDS: Sodium Chloride 0.45% 1,000 ML IV SCH (02:39)
[2018-05-06] MEDS: niCARdipine IV 25 MG in Sodium Chloride 0.9% 240 ML IV PRN (04:00)
[2018-05-06 04:30] LABS: BASO # 0.1 K/uL (0.0-0.2); BASO % 0.4 % (0.0-2.0); EOS % 0.3 % (0.0-4.0); HEMOGLOBIN 11.1 g/dL (11.0-16.0); LYMPH # 1.8 K/uL (1.0-4.3); LYMPH % 10.1 % (20.0-40.0); MEAN CELL VOLUME 78.4 fL (81.0-99.0); MEAN CORPUSCULAR HEMOGLOBIN 25.9 pg (27.0-31.0); MEAN CORPUSCULAR HGB CONC 33.1 g/dL (33.0-37.0); MEAN PLATELET VOLUME 11.6 fL (7.2-11.7); MONO # 0.8 K/uL (0.0-0.8); MONO % 4.6 % (0.0-10.0); NEUT # 15.4 K/uL (1.8-7.0); NEUT % 84.6 % (50.0-75.0); NRBC % 0.1 % (0.0-2.0); RBC 4.27 Mil/uL (3.80-5.20); RED CELL DISTRIBUTION WIDTH 15.5 % (11.5-14.5); WHITE BLOOD COUNT 18.2 K/uL (4.8-10.8)
[2018-05-06 04:51] LABS: ALB/GLOB RATIO 0.9 (1.0-2.1); ALBUMIN 2.5 g/dL (3.5-5.0); ALT/SGPT 111 U/L (9-52); AST/SGOT 49 U/L (14-36); BLOOD UREA NITROGEN 25 mg/dL (7-17); CALCIUM 7.5 mg/dl (8.6-10.4); GFR NON-AFRICAN AMERICAN > 60
[2018-05-06 05:33] LABS: ABG ALLEN TEST POS; ARTERIAL BLOOD GAS HCO3 25.7 mmol/L (21-28); ARTERIAL BLOOD GAS O2 SAT 99.7 % (95-98); ARTERIAL BLOOD GAS PCO2 32 mm/Hg (35-45); ARTERIAL BLOOD GAS PH 7.48 (7.35-7.45); ARTERIAL BLOOD GAS PO2 155 mm/Hg (80-100); ARTERIAL BLOOD GAS TCO2 24.8 mmol/L (22-28)
[2018-05-06] MEDS: (Novolog) Insulin Aspart, Recombinant 100 u/ml 10 ml vial SC SCH ×3 (06:03→18:09)
[2018-05-06] MEDS: (Lantus) Insulin Glargine, Recombinant SC SCH (09:43)
[2018-05-06] MEDS: Thiamine 100 mg/ml Inj IV SCH (09:44)
[2018-05-06] MEDS: Pantoprazole 40 mg Susp UD NG SCH (09:45)
[2018-05-06] MEDS: metroNIDAZOLE IV 500 mg/100 ml 500 MG/100 ML BAG IVPB SCH ×2 (10:30→17:15)
--- NOTE | 2018-05-06 10:44 | RAD ---
Date of service: 05/06/2018 HISTORY: intubated COMPARISON: 05/05/2018 FINDINGS: LUNGS: Mild to moderate venous congestion. Persistent patchy increased markings at the right lung base, overall improved since the prior study. PLEURA: Blunted right costophrenic angle which may represent pleural effusion CARDIOVASCULAR: No aortic atherosclerotic calcification present. Normal cardiac size. OSSEOUS STRUCTURES: No significant abnormalities. VISUALIZED UPPER ABDOMEN: Normal. OTHER FINDINGS: Lines and tubes in stable position. IMPRESSION: Mild to moderate venous congestion. Persistent patchy increased markings at the right lung base, overall improved since the prior study.
--- NOTE | 2018-05-06 11:48 | CP.PCM.PN ---
Subjective - Date & Time of Evaluation Date of Evaluation: 05/06/18 Time of Evaluation: 11:48 - Subjective Subjective: RENAL FOLLOW UP HPI: 52 year F w/ unknown medical hx that was reportedly found unresponsive. EMS was activated she was intubated and brought to ER. She was found to be hypertensive and code stroke was called. SHe was subsequently admitted to ICU for further evaluation. 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 No family was available for hx at the time of evaluation and all hx is from chart. ROS: un able to obtain pt intubated and comatose. going for MRI brain today Surgical hx: No known surgeries Medical hx: No known prior medical history Allergies: NKDA Social: EtOH use unknown if any ivdu Family Hx: No known family hx Medications: No home meds pe: vs as below gen: intubated and comatose sclear: anicteric op: ET tube neck: supple cv: +s1+s2 no rub lungs: b/l clear, + mechanical bs abd: soft, no organomegaly ext: no edema neuro: intubated not responsive psych: no responsive labs and imaging reviewed imp: ARF/Acidosis/ Sepsis/Anoxic injury/ Sepsis/ Pneumonia/ alcoholic ketoa cidosis/cerebral edema/hanging, strangulation/hypernatremia plan: DILLON resolved HTN control per ICU team lytes stable will sign off Please call if any Qs Objective - Vital Signs/Intake and Output Vital Signs (last 24 hours): Temp Pulse Resp BP Pulse Ox 99 F 76 18 149/79 100 05/06/18 08:00 05/06/18 10:00 05/06/18 10:00 05/06/18 09:45 05/06/18 10:00 Intake and Output: 05/06/18 05/06/18 06:59 18:59 Intake Total 2850 885 Output Total 1650 945 Balance 1200 -60 - Medications Medications: Current Medications Albuterol/Ipratropium (Duoneb 3 Mg/0.5 Mg (3 Ml) Ud) 3 ml INH RQ4 [facility] Last Admin: 05/06/18 10:59 Dose: 3 ml Aspirin (Ecotrin) 81 mg PO DAILY [facility] Last Admin: 05/06/18 09:46 Dose: 81 mg Dextrose (Dextrose 50% Inj) 0 ml IV STAT PRN; Protocol PRN Reason: Hypoglycemia Protocol Dextrose (Glutose 15) 15 gm PO ONCE PRN; Protocol PRN Reason: Hypoglycemia Protocol Glucagon (Glucagen Diagnostic Kit) 1 mg IM STAT PRN; Protocol PRN Reason: Hypoglycemia Protocol Heparin Sodium (Porcine) (Heparin) 5,000 units SC Q8 [facility] Last Admin: 05/06/18 06:04 Dose: 5,000 units Hydralazine HCl (Apresoline) 10 mg PO QID [facility] Last Admin: 05/06/18 10:31 Dose: 10 mg Levetiracetam 1,000 mg/ Sodium (Chloride) 110 mls @ 420 mls/hr IVPB Q12H [facility] Last Admin: 05/05/18 22:40 Dose: 420 mls/hr Vancomycin HCl 1,000 mg/ (Sodium Chloride) 200 mls @ 133.333 mls/hr IVPB Q12H [facility]; Protocol Last Admin: 05/06/18 06:03 Dose: 133.333 mls/hr Meropenem 1 gm/ Sodium (Chloride) 100 mls @ 100 mls/hr IVPB Q8H [facility]; Protocol Last Admin: 05/06/18 11:38 Dose: 100 mls/hr Nicardipine HCl 25 mg/ Sodium (Chloride) 250 mls @ 50 mls/hr IV .Q5H PRN; Protocol PRN Reason: TITRATE PER PROTOCOL Last Admin: 05/06/18 04:00 Dose: 2.5 mg/hr, 25 mls/hr Dextrose (Dextrose 5% In Water 1000 Ml) 1,000 mls @ 0 mls/hr IV .Q0M PRN; Protocol PRN Reason: Hypoglycemia Protocol Metronidazole (Flagyl) 500 mg in 100 mls @ 100 mls/hr IVPB Q8H [facility]; Protocol Last Admin: 05/06/18 10:30 Dose: 100 mls/hr Ibuprofen (Motrin Oral Susp) 200 mg PO Q6H PRN PRN Reason: Fever >100.4 F Last Admin: 05/05/18 20:00 Dose: 200 mg Insulin Aspart (Novolog) 0 unit SC Q6 [facility]; Protocol Last Admin: 05/06/18 11:39 Dose: 2 units Insulin Glargine (Lantus) 10 unit SC DAILY [facility] Last Admin: 05/06/18 09:43 Dose: 20 u Metoprolol Tartrate (Lopressor) 25 mg PO BID [facility] Last Admin: 05/06/18 09:45 Dose: 25 mg Pantoprazole Sodium (Protonix Susp) 40 mg NG DAILY [facility] Last Admin: 05/06/18 09:45 Dose: 40 mg Rosuvastatin Calcium (Crestor) 5 mg PO HS [facility] Last Admin: 05/05/18 22:41 Dose: 5 mg Thiamine HCl (Vitamin B1 Inj) 100 mg IV DAILY [facility] Last Admin: 05/06/18 09:44 Dose: 100 mg - Labs Labs: 05/06/18 04:20 05/06/18 04:20 PT 12.6 SECONDS (9.7-12.2) H 05/02/18 13:23 INR 1.2 05/02/18 13:23 APTT 128 SECONDS (21-34) H* D 05/02/18 20:39
--- NOTE | 2018-05-06 11:58 | CP.PCM.PN ---
Subjective - Date & Time of Evaluation Date of Evaluation: 05/06/18 Time of Evaluation: 11:45 - Subjective Subjective: Lamont Barclay, PGY-[address] Gay Patient seen and evaluated at bedside. Family member present. No acute events reported overnight. Mechanically ventilated and OGT in place. Objective - Vital Signs/Intake and Output Vital Signs (last 24 hours): Temp Pulse Resp BP Pulse Ox 99 F 76 18 149/79 100 05/06/18 08:00 05/06/18 10:00 05/06/18 10:00 05/06/18 09:45 05/06/18 10:00 Intake and Output: 05/06/18 05/06/18 06:59 18:59 Intake Total 2850 885 Output Total 1650 945 Balance 1200 -60 - Medications Medications: Current Medications Albuterol/Ipratropium (Duoneb 3 Mg/0.5 Mg (3 Ml) Ud) 3 ml INH RQ4 [facility] Last Admin: 05/06/18 10:59 Dose: 3 ml Aspirin (Ecotrin) 81 mg PO DAILY [facility] Last Admin: 05/06/18 09:46 Dose: 81 mg Dextrose (Dextrose 50% Inj) 0 ml IV STAT PRN; Protocol PRN Reason: Hypoglycemia Protocol Dextrose (Glutose 15) 15 gm PO ONCE PRN; Protocol PRN Reason: Hypoglycemia Protocol Glucagon (Glucagen Diagnostic Kit) 1 mg IM STAT PRN; Protocol PRN Reason: Hypoglycemia Protocol Heparin Sodium (Porcine) (Heparin) 5,000 units SC Q8 [facility] Last Admin: 05/06/18 06:04 Dose: 5,000 units Hydralazine HCl (Apresoline) 10 mg PO QID [facility] Last Admin: 05/06/18 10:31 Dose: 10 mg Levetiracetam 1,000 mg/ Sodium (Chloride) 110 mls @ 420 mls/hr IVPB Q12H [facility] Last Admin: 05/05/18 22:40 Dose: 420 mls/hr Vancomycin HCl 1,000 mg/ (Sodium Chloride) 200 mls @ 133.333 mls/hr IVPB Q12H [facility]; Protocol Last Admin: 05/06/18 06:03 Dose: 133.333 mls/hr Meropenem 1 gm/ Sodium (Chloride) 100 mls @ 100 mls/hr IVPB Q8H [facility]; Protocol Last Admin: 05/06/18 11:38 Dose: 100 mls/hr Nicardipine HCl 25 mg/ Sodium (Chloride) 250 mls @ 50 mls/hr IV .Q5H PRN; Protocol PRN Reason: TITRATE PER PROTOCOL Last Admin: 05/06/18 04:00 Dose: 2.5 mg/hr, 25 mls/hr Dextrose (Dextrose 5% In Water 1000 Ml) 1,000 mls @ 0 mls/hr IV .Q0M PRN; Protocol PRN Reason: Hypoglycemia Protocol Metronidazole (Flagyl) 500 mg in 100 mls @ 100 mls/hr IVPB Q8H [facility]; Protocol Last Admin: 05/06/18 10:30 Dose: 100 mls/hr Ibuprofen (Motrin Oral Susp) 200 mg PO Q6H PRN PRN Reason: Fever >100.4 F Last Admin: 05/05/18 20:00 Dose: 200 mg Insulin Aspart (Novolog) 0 unit SC Q6 [facility]; Protocol Last Admin: 05/06/18 11:39 Dose: 2 units Insulin Glargine (Lantus) 10 unit SC DAILY [facility] Last Admin: 05/06/18 09:43 Dose: 20 u Metoprolol Tartrate (Lopressor) 25 mg PO BID [facility] Last Admin: 05/06/18 09:45 Dose: 25 mg Pantoprazole Sodium (Protonix Susp) 40 mg NG DAILY [facility] Last Admin: 05/06/18 09:45 Dose: 40 mg Rosuvastatin Calcium (Crestor) 5 mg PO HS [facility] Last Admin: 05/05/18 22:41 Dose: 5 mg Thiamine HCl (Vitamin B1 Inj) 100 mg IV DAILY [facility] Last Admin: 05/06/18 09:44 Dose: 100 mg - Labs Labs: 05/06/18 04:20 05/06/18 04:20 PT 12.6 SECONDS (9.7-12.2) H 05/02/18 13:23 INR 1.2 05/02/18 13:23 APTT 128 SECONDS (21-34) H* D 05/02/18 20:39 - Constitutional Appears: In Acute Distress (Intubated and mechanically ventilated) - Head Exam Head Exam: absent: ATRAUMATIC (thin circumferential dark ecchymosis around neck) - Eye Exam Eye Exam: PERRL - ENT Exam Additional comments: OGT in place - Respiratory Exam Respiratory Exam: Clear to Ausculation Bilateral. absent: Wheezes, NORMAL BREATHING PATTERN (mechanically ventilated) - Cardiovascular Exam Cardiovascular Exam: RRR, +S1, +S2 - Skin Skin Exam: Dry, Intact, Normal Color (aside from neck finding), Warm Assessment and Plan - Assessment and Plan (Free Text) Assessment: Assessment: 52 F with suspected suicide attempt who presents with anoxic brain injury and NSTEMI. Elevated Troponins - 3rd Trop elevated to 5.06 05/02 - Echo report shows normal EF 65-70% with normal systolic function - pro BNP 35 - Heparin SC Hypertensive Urgency/Emergency - Permissive HTN per Neuro - Nicardipine 5 mg/hr drip continued - F/u MRI brain results at [facility] - CT head showed stable poor cortical medullary differentiation - ASA, Statin - Continue to monitor Patient seen, case reviewed, and plan discussed with Dr. Gay. Future recs per Dr. Gay. Lamont Barclay, PGY-1
--- NOTE | 2018-05-06 12:23 | CP.CCUPN ---
<Marycruz Plasencia - Last Filed: 05/06/18 17:46> CCU Subjective - Physician Review Events Since Last Encounter (Free Text): 05/06/18 12:26 no acute events Subjective (Free Text): 05/06/18 12:15 PGY1 Critical Care Progress Note for Dr. Kerns Patient seen and examined at bedside this morning. Family members present. Patient mechanically ventilated. Otherwise, no acute events overnight, per nurse. Unable to obtained ROS due to clinical condition. Critical Care Time Spent (in minutes): 35 CCU Objective - Vital Signs / Intake & Output Vital Signs (Last 4 hours): Vital Signs Pulse Resp BP Pulse Ox 05/06/18 10:00 76 18 100 05/06/18 09:45 81 18 149/79 100 05/06/18 09:38 79 18 149/79 100 05/06/18 09:30 85 22 99 05/06/18 09:17 82 18 151/80 H 99 05/06/18 09:15 87 19 99 05/06/18 09:00 93 H 19 99 05/06/18 08:45 90 19 99 05/06/18 08:30 96 H 28 H 99 05/06/18 08:22 93 H 25 H 158/87 H 100 05/06/18 08:17 93 H 22 160/90 H 97 Intake and Output (Last 8hrs): Intake & Output 05/05/18 05/06/18 05/06/18 22:59 06:59 14:59 Intake Total 1630 1770 885 Output Total 1850 800 945 Balance -220 970 -60 Weight 155 lb 1.6 oz Intake: IV 330 170 Intake, IV Amount 1200 1600 675 Right PICC 400 200 125 Right Proximal Port PICC 800 1400 550 Tube Feeding 100 130 Other 80 Output: Urine 1850 800 945 Urethral ([place]) 1850 800 945 - Physical Exam Pupils: Positive for: PERRL Extroacular Muscles: Negative for: EOMI Conjunctiva: Positive for: Normal Mouth: Positive for: Moist Mucous Membranes Nose (External): Positive for: Atraumatic. Negative for: Lesions Nose (Internal): Positive for: Normal Inspection, No Active Bleeding Neck: Positive for: Trachea Midline, Other (skin changes (reddish/hyperpigmented) consisent with ligation around neck ). Negative for: Meningeal Signs Cardiovascular: Positive for: Normal S1, S2, Tachycardic Abdomen: Negative for: Distention, Rebound, Guarding Breast/Axillary: Positive for: Other (Bruising in axillae bilaterally ) Lower Extremity: Positive for: Normal Inspection. Negative for: Edema Neurological: Positive for: Other (GCS=6T). Negative for: CN II-XII Intact Skin: Positive for: Warm, Dry, Normal Color Psychiatric: Negative for: Alert, Oriented x 3 - Medications Active Medications: Active Medications Generic Name Dose Route Start Last Admin Trade Name Freq PRN Reason Stop Dose Admin Albuterol/Ipratropium 3 ml 05/02/18 04:00 05/06/18 10:59 Duoneb 3 Mg/0.5 Mg (3 Ml) Ud INH 3 ml RQ4 BETH Administration Aspirin 81 mg 05/02/18 10:00 05/06/18 09:46 Ecotrin PO 81 mg DAILY BETH Administration Dextrose 0 ml 05/03/18 12:05 Dextrose 50% Inj IV STAT PRN Hypoglycemia Protocol Protocol Dextrose 15 gm 05/03/18 12:05 Glutose 15 PO ONCE PRN Hypoglycemia Protocol Protocol Glucagon 1 mg 05/03/18 12:05 Glucagen Diagnostic Kit IM STAT PRN Hypoglycemia Protocol Protocol Heparin Sodium (Porcine) 5,000 units 05/03/18 14:00 05/06/18 06:04 Heparin SC 5,000 units Q8 BETH Administration Hydralazine HCl 10 mg 05/06/18 10:00 05/06/18 10:31 Apresoline PO 10 mg QID BETH Administration Levetiracetam 1,000 mg/ Sodium 110 mls @ 420 mls/hr 05/02/18 11:30 05/05/18 22:40 Chloride IVPB 420 mls/hr Q12H BETH Administration Vancomycin HCl 1,000 mg/ 200 mls @ 133.333 mls/hr 05/02/18 19:00 05/06/18 06:03 Sodium Chloride IVPB 133.333 mls/hr Q12H BETH Administration Protocol Meropenem 1 gm/ Sodium 100 mls @ 100 mls/hr 05/02/18 18:30 05/06/18 11:38 Chloride IVPB 100 mls/hr Q8H BETH Administration Protocol Nicardipine HCl 25 mg/ Sodium 250 mls @ 50 mls/hr 05/05/18 07:15 05/06/18 04:00 Chloride IV 2.5 mg/hr .Q5H PRN 25 mls/hr TITRATE PER PROTOCOL Administration Protocol 5 MG/HR Dextrose 1,000 mls @ 0 mls/hr 05/05/18 13:57 Dextrose 5% In Water 1000 Ml IV .Q0M PRN Hypoglycemia Protocol Protocol Per Protocol Metronidazole 500 mg in 100 mls @ 100 mls/hr 05/06/18 10:00 05/06/18 10:30 Flagyl IVPB 100 mls/hr Q8H BETH Administration Protocol Ibuprofen 200 mg 05/05/18 17:37 05/05/18 20:00 Motrin Oral Susp PO 200 mg Q6H PRN Administration Fever >100.4 F Insulin Aspart 0 unit 05/03/18 18:00 05/06/18 11:39 Novolog SC 2 units Q6 BETH Administration Protocol Insulin Glargine 10 unit 05/06/18 10:00 05/06/18 09:43 Lantus SC 20 u DAILY BETH Administration Metoprolol Tartrate 25 mg 05/06/18 10:00 05/06/18 09:45 Lopressor PO 25 mg BID BETH Administration Pantoprazole Sodium 40 mg 05/06/18 10:00 05/06/18 09:45 Protonix Susp NG 40 mg DAILY BETH Administration Rosuvastatin Calcium 5 mg 05/03/18 22:00 05/05/18 22:41 Crestor PO 5 mg HS BETH Administration Thiamine HCl 100 mg 05/03/18 10:45 05/06/18 09:44 Vitamin B1 Inj IV 100 mg DAILY BETH Administration - Patient Studies Lab Studies: Microbiology Studies 05/02/18 01:08 Blood Culture - Preliminary Blood-Venous NO GROWTH AFTER 4 DAYS 05/02/18 01:07 Blood Culture - Preliminary Blood-Venous NO GROWTH AFTER 4 DAYS Lab Studies 05/06/18 05/06/18 05/06/18 Range/Units 11:07 09:15 09:15 WBC (4.8-10.8) K/uL RBC (3.80-5.20) Mil/uL Hgb (11.0-16.0) g/dL Hct (34.0-47.0) % MCV (81.0-99.0) fL MCH (27.0-31.0) pg MCHC (33.0-37.0) g/dL RDW (11.5-14.5) % Plt Count (130-400) K/uL MPV (7.2-11.7) fL Neut % (Auto) (50.0-75.0) % Lymph % (Auto) (20.0-40.0) % [place] % (Auto) (0.0-10.0) % Eos % (Auto) (0.0-4.0) % Baso % (Auto) (0.0-2.0) % Neut # (Auto) (1.8-7.0) K/uL Lymph # (Auto) (1.0-4.3) K/uL [place] # (Auto) (0.0-0.8) K/uL Eos # (Auto) (0.0-0.7) K/uL Baso # (Auto) (0.0-0.2) K/uL Puncture Site pCO2 (35-45) mm/Hg pO2 (80-100) mm/Hg HCO3 (21-28) mmol/L ABG pH (7.35-7.45) ABG Total CO2 (22-28) mmol/L ABG O2 Saturation (95-98) % ABG Base Excess (-2.0-3.0) mmol/L Erik Test ABG Potassium (3.6-5.2) mmol/L A-a O2 Difference mm/Hg Respiratory Index Glucose (65-105) mg/dl Lactate (0.7-2.1) mmol/L Vent Mode Mechanical Rate FiO2 % Tidal Volume PEEP Sodium (132-148) mmol/L Potassium (3.6-5.2) mmol/L Chloride (98-107) mmol/L Carbon Dioxide (22-30) mmol/L Anion Gap (10-20) BUN (7-17) mg/dL Creatinine (0.7-1.2) mg/dL Est GFR ( Amer) Est GFR (Non-Af Amer) POC Glucose (mg/dL) 185 H (65-110) mg/dL Random Glucose (65-105) mg/dL Serum Osmolality 315 H (272-300) mosm/kg Calcium (8.6-10.4) mg/dl Phosphorus (2.5-4.5) mg/dL Magnesium (1.6-2.3) mg/dL Total Bilirubin (0.2-1.3) mg/dL AST (14-36) U/L ALT (9-52) U/L Alkaline Phosphatase (38-126) U/L Total Protein (6.3-8.3) g/dL Albumin (3.5-5.0) g/dL Globulin (2.2-3.9) gm/dL Albumin/Globulin Ratio (1.0-2.1) Arterial Blood Potassium (3.6-5.2) mmol/L Urine Osmolality 492 (300-1000) mosm/kg 05/06/18 05/06/18 05/06/18 Range/Units 05:22 05:12 04:20 WBC (4.8-10.8) K/uL RBC (3.80-5.20) Mil/uL Hgb (11.0-16.0) g/dL Hct (34.0-47.0) % MCV (81.0-99.0) fL MCH (27.0-31.0) pg MCHC (33.0-37.0) g/dL RDW (11.5-14.5) % Plt Count (130-400) K/uL MPV (7.2-11.7) fL Neut % (Auto) (50.0-75.0) % Lymph % (Auto) (20.0-40.0) % [place] % (Auto) (0.0-10.0) % Eos % (Auto) (0.0-4.0) % Baso % (Auto) (0.0-2.0) % Neut # (Auto) (1.8-7.0) K/uL Lymph # (Auto) (1.0-4.3) K/uL [place] # (Auto) (0.0-0.8) K/uL Eos # (Auto) (0.0-0.7) K/uL Baso # (Auto) (0.0-0.2) K/uL Puncture Site R rad pCO2 32 L (35-45) mm/Hg pO2 155 H (80-100) mm/Hg HCO3 25.7 (21-28) mmol/L ABG pH 7.48 H (7.35-7.45) ABG Total CO2 24.8 (22-28) mmol/L ABG O2 Saturation 99.7 H (95-98) % ABG Base Excess 0.9 (-2.0-3.0) mmol/L Erik Test Pos ABG Potassium 3.5 L (3.6-5.2) mmol/L A-a O2 Difference 162.0 mm/Hg Respiratory Index 1.0 Glucose 235 H (65-105) mg/dl Lactate 0.9 (0.7-2.1) mmol/L Vent Mode Prvc Mechanical Rate 14 FiO2 50.0 % Tidal Volume 500 PEEP 5 Sodium 150.0 H 147 (132-148) mmol/L Potassium 3.8 (3.6-5.2) mmol/L Chloride 122.0 H 117 H (98-107) mmol/L Carbon Dioxide 25 (22-30) mmol/L Anion Gap 9 L (10-20) BUN 25 H (7-17) mg/dL Creatinine 0.8 (0.7-1.2) mg/dL Est GFR ( Amer) > 60 Est GFR (Non-Af Amer) > 60 POC Glucose (mg/dL) 223 H (65-110) mg/dL Random Glucose 223 H (65-105) mg/dL Serum Osmolality (272-300) mosm/kg Calcium 7.5 L (8.6-10.4) mg/dl Phosphorus 2.8 (2.5-4.5) mg/dL Magnesium 2.7 H (1.6-2.3) mg/dL Total Bilirubin 0.9 (0.2-1.3) mg/dL AST 49 H D (14-36) U/L ALT 111 H D (9-52) U/L Alkaline Phosphatase 107 (38-126) U/L Total Protein 5.2 L (6.3-8.3) g/dL Albumin 2.5 L (3.5-5.0) g/dL Globulin 2.7 (2.2-3.9) gm/dL Albumin/Globulin Ratio 0.9 L (1.0-2.1) Arterial Blood Potassium 3.5 L (3.6-5.2) mmol/L Urine Osmolality (300-1000) mosm/kg 05/06/18 05/05/18 05/05/18 Range/Units 04:20 23:41 17:44 WBC 18.2 H (4.8-10.8) K/uL RBC 4.27 (3.80-5.20) Mil/uL Hgb 11.1 (11.0-16.0) g/dL Hct 33.5 L (34.0-47.0) % MCV 78.4 L (81.0-99.0) fL MCH 25.9 L (27.0-31.0) pg MCHC 33.1 (33.0-37.0) g/dL RDW 15.5 H (11.5-14.5) % Plt Count 159 (130-400) K/uL MPV 11.6 (7.2-11.7) fL Neut % (Auto) 84.6 H (50.0-75.0) % Lymph % (Auto) 10.1 L (20.0-40.0) % [place] % (Auto) 4.6 (0.0-10.0) % Eos % (Auto) 0.3 (0.0-4.0) % Baso % (Auto) 0.4 (0.0-2.0) % Neut # (Auto) 15.4 H (1.8-7.0) K/uL Lymph # (Auto) 1.8 (1.0-4.3) K/uL [place] # (Auto) 0.8 (0.0-0.8) K/uL Eos # (Auto) 0.0 (0.0-0.7) K/uL Baso # (Auto) 0.1 (0.0-0.2) K/uL Puncture Site pCO2 (35-45) mm/Hg pO2 (80-100) mm/Hg HCO3 (21-28) mmol/L ABG pH (7.35-7.45) ABG Total CO2 (22-28) mmol/L ABG O2 Saturation (95-98) % ABG Base Excess (-2.0-3.0) mmol/L Erik Test ABG Potassium (3.6-5.2) mmol/L A-a O2 Difference mm/Hg Respiratory Index Glucose (65-105) mg/dl Lactate (0.7-2.1) mmol/L Vent Mode Mechanical Rate FiO2 % Tidal Volume PEEP Sodium (132-148) mmol/L Potassium (3.6-5.2) mmol/L Chloride (98-107) mmol/L Carbon Dioxide (22-30) mmol/L Anion Gap (10-20) BUN (7-17) mg/dL Creatinine (0.7-1.2) mg/dL Est GFR ( Amer) Est GFR (Non-Af Amer) POC Glucose (mg/dL) 243 H 233 H (65-110) mg/dL Random Glucose (65-105) mg/dL Serum Osmolality (272-300) mosm/kg Calcium (8.6-10.4) mg/dl Phosphorus (2.5-4.5) mg/dL Magnesium (1.6-2.3) mg/dL Total Bilirubin (0.2-1.3) mg/dL AST (14-36) U/L ALT (9-52) U/L Alkaline Phosphatase (38-126) U/L Total Protein (6.3-8.3) g/dL Albumin (3.5-5.0) g/dL Globulin (2.2-3.9) gm/dL Albumin/Globulin Ratio (1.0-2.1) Arterial Blood Potassium (3.6-5.2) mmol/L Urine Osmolality (300-1000) mosm/kg 05/05/18 Range/Units 15:39 WBC (4.8-10.8) K/uL RBC (3.80-5.20) Mil/uL Hgb (11.0-16.0) g/dL Hct (34.0-47.0) % MCV (81.0-99.0) fL MCH (27.0-31.0) pg MCHC (33.0-37.0) g/dL RDW (11.5-14.5) % Plt Count (130-400) K/uL MPV (7.2-11.7) fL Neut % (Auto) (50.0-75.0) % Lymph % (Auto) (20.0-40.0) % [place] % (Auto) (0.0-10.0) % Eos % (Auto) (0.0-4.0) % Baso % (Auto) (0.0-2.0) % Neut # (Auto) (1.8-7.0) K/uL Lymph # (Auto) (1.0-4.3) K/uL [place] # (Auto) (0.0-0.8) K/uL Eos # (Auto) (0.0-0.7) K/uL Baso # (Auto) (0.0-0.2) K/uL Puncture Site pCO2 (35-45) mm/Hg pO2 (80-100) mm/Hg HCO3 (21-28) mmol/L ABG pH (7.35-7.45) ABG Total CO2 (22-28) mmol/L ABG O2 Saturation (95-98) % ABG Base Excess (-2.0-3.0) mmol/L Erik Test ABG Potassium (3.6-5.2) mmol/L A-a O2 Difference mm/Hg Respiratory Index Glucose (65-105) mg/dl Lactate (0.7-2.1) mmol/L Vent Mode Mechanical Rate FiO2 % Tidal Volume PEEP Sodium 153 H (132-148) mmol/L Potassium 3.4 L (3.6-5.2) mmol/L Chloride 120 H (98-107) mmol/L Carbon Dioxide 25 (22-30) mmol/L Anion Gap 12 (10-20) BUN 25 H (7-17) mg/dL Creatinine 0.9 (0.7-1.2) mg/dL Est GFR ( Amer) > 60 Est GFR (Non-Af Amer) > 60 POC Glucose (mg/dL) (65-110) mg/dL Random Glucose 249 H (65-105) mg/dL Serum Osmolality (272-300) mosm/kg Calcium 7.7 L (8.6-10.4) mg/dl Phosphorus (2.5-4.5) mg/dL Magnesium (1.6-2.3) mg/dL Total Bilirubin (0.2-1.3) mg/dL AST (14-36) U/L ALT (9-52) U/L Alkaline Phosphatase (38-126) U/L Total Protein (6.3-8.3) g/dL Albumin (3.5-5.0) g/dL Globulin (2.2-3.9) gm/dL Albumin/Globulin Ratio (1.0-2.1) Arterial Blood Potassium (3.6-5.2) mmol/L Urine Osmolality (300-1000) mosm/kg Laboratory Results - last 24 hr 05/05/18 05/05/18 05/05/18 15:39 17:44 23:41 WBC RBC Hgb Hct MCV MCH MCHC RDW Plt Count MPV Neut % (Auto) Lymph % (Auto) [place] % (Auto) Eos % (Auto) Baso % (Auto) Neut # (Auto) Lymph # (Auto) [place] # (Auto) Eos # (Auto) Baso # (Auto) Puncture Site pCO2 pO2 HCO3 ABG pH ABG Total CO2 ABG O2 Saturation ABG Base Excess Erik Test ABG Potassium A-a O2 Difference Respiratory Index Glucose Lactate Vent Mode Mechanical Rate FiO2 Tidal Volume PEEP Sodium 153 H Potassium 3.4 L Chloride 120 H Carbon Dioxide 25 Anion Gap 12 BUN 25 H Creatinine 0.9 Est GFR ( Amer) > 60 Est GFR (Non-Af Amer) > 60 POC Glucose (mg/dL) 233 H 243 H Random Glucose 249 H Serum Osmolality Calcium 7.7 L Phosphorus Magnesium Total Bilirubin AST ALT Alkaline Phosphatase Total Protein Albumin Globulin Albumin/Globulin Ratio Arterial Blood Potassium Urine Osmolality 05/06/18 05/06/18 05/06/18 04:20 04:20 05:12 WBC 18.2 H RBC 4.27 Hgb 11.1 Hct 33.5 L MCV 78.4 L MCH 25.9 L MCHC 33.1 RDW 15.5 H Plt Count 159 MPV 11.6 Neut % (Auto) 84.6 H Lymph % (Auto) 10.1 L [place] % (Auto) 4.6 Eos % (Auto) 0.3 Baso % (Auto) 0.4 Neut # (Auto) 15.4 H Lymph # (Auto) 1.8 [place] # (Auto) 0.8 Eos # (Auto) 0.0 Baso # (Auto) 0.1 Puncture Site pCO2 pO2 HCO3 ABG pH ABG Total CO2 ABG O2 Saturation ABG Base Excess Erik Test ABG Potassium A-a O2 Difference Respiratory Index Glucose Lactate Vent Mode Mechanical Rate FiO2 Tidal Volume PEEP Sodium 147 Potassium 3.8 Chloride 117 H Carbon Dioxide 25 Anion Gap 9 L BUN 25 H Creatinine 0.8 Est GFR ( Amer) > 60 Est GFR (Non-Af Amer) > 60 POC Glucose (mg/dL) 223 H Random Glucose 223 H Serum Osmolality Calcium 7.5 L Phosphorus 2.8 Magnesium 2.7 H Total Bilirubin 0.9 AST 49 H D ALT 111 H D Alkaline Phosphatase 107 Total Protein 5.2 L Albumin 2.5 L Globulin 2.7 Albumin/Globulin Ratio 0.9 L Arterial Blood Potassium Urine Osmolality 05/06/18 05/06/18 05/06/18 05:22 09:15 09:15 WBC RBC Hgb Hct MCV MCH MCHC RDW Plt Count MPV Neut % (Auto) Lymph % (Auto) [place] % (Auto) Eos % (Auto) Baso % (Auto) Neut # (Auto) Lymph # (Auto) [place] # (Auto) Eos # (Auto) Baso # (Auto) Puncture Site R rad pCO2 32 L pO2 155 H HCO3 25.7 ABG pH 7.48 H ABG Total CO2 24.8 ABG O2 Saturation 99.7 H ABG Base Excess 0.9 Erik Test Pos ABG Potassium 3.5 L A-a O2 Difference 162.0 Respiratory Index 1.0 Glucose 235 H Lactate 0.9 Vent Mode Prvc Mechanical Rate 14 FiO2 50.0 Tidal Volume 500 PEEP 5 Sodium 150.0 H Potassium Chloride 122.0 H Carbon Dioxide Anion Gap BUN Creatinine Est GFR ( Amer) Est GFR (Non-Af Amer) POC Glucose (mg/dL) Random Glucose Serum Osmolality 315 H Calcium Phosphorus Magnesium Total Bilirubin AST ALT Alkaline Phosphatase Total Protein Albumin Globulin Albumin/Globulin Ratio Arterial Blood Potassium 3.5 L Urine Osmolality 492 05/06/18 11:07 WBC RBC Hgb Hct MCV MCH MCHC RDW Plt Count MPV Neut % (Auto) Lymph % (Auto) [place] % (Auto) Eos % (Auto) Baso % (Auto) Neut # (Auto) Lymph # (Auto) [place] # (Auto) Eos # (Auto) Baso # (Auto) Puncture Site pCO2 pO2 HCO3 ABG pH ABG Total CO2 ABG O2 Saturation ABG Base Excess Erik Test ABG Potassium A-a O2 Difference Respiratory Index Glucose Lactate Vent Mode Mechanical Rate FiO2 Tidal Volume PEEP Sodium Potassium Chloride Carbon Dioxide Anion Gap BUN Creatinine Est GFR ( Amer) Est GFR (Non-Af Amer) POC Glucose (mg/dL) 185 H Random Glucose Serum Osmolality Calcium Phosphorus Magnesium Total Bilirubin AST ALT Alkaline Phosphatase Total Protein Albumin Globulin Albumin/Globulin Ratio Arterial Blood Potassium Urine Osmolality Fingerstick Blood Sugar Results: 189 Review of Systems - Review of Systems Systems not reviewed;Unavailable: Acuity of Condition Assessment/Plan - Assessment and Plan (Free Text) Assessment: Assessment: This is a 52 year old female with probable past medical history of diabetes mellitus type 2 who was found unresponsive by on 05/01 (reportedly). EMS was called and patient was resuscitated and subsequently intubated on the field and brought to the ED. While in the ED: CODE STROKE was called, patient was subsequently admitted to ICU for close monitoring and evaluation for anoxic brain injury. Patient was noted on physical exam to have ring monge suggestive of suicidal attempt by hanging. [employer] is involved and state high likelihood of suicidal attempt. Patient is pending tracheostomy and PEG placement. Neuro: Anoxic Brain Injury Possibly 2/2 Asphyxiation Possibly 2/2 Suicidal Attempt Via Hanging - Maintain bed elevation at 30 degrees - DDAVP 1mcg IVP once administered - [employer] involved and on case - Dr. Duff consulted: recommendations appreciated * Poor prognosis, but with some improvement in the exam * From 05/04 note: continue current management. * MRI brain: Findings most compatible with subacute favored over acute cerebral hypoxic insult with minimal involvement of the lower haris and the cerebellar hemispsheres as well. Blood flow in the basilar and bilateral cavernous internal carotid artery segments appears adequately maintained. - EEG obtained: showed diffuse encephalopathy with burst suppression - CT without contrast 05/01 official report: * Negative CT of the brain. Incidental ethmoid sinusitis. - Repeat CT without contrast 05/03 official report: * Stable poor cortical medullary differentiation with scattered edematous changes. No significant interval changes - Repeat CT without contrast 05/04 official report: * Little interval change in poor corticomedullary differentiation an indistinct appearance of the basal ganglia compatible with mild cerebral edema * Abnormal appearance of bilateral thalamocapsular regions concerning for hypoxic anoxic insult. - Patient was transferred to [facility] for MRI brain without contrast 05/05: * cortical ischemia conssistent with anoxic pattern; ischemia to the midbrain consistent with CT findings. - Continue neuro checks - Monitor CV: - Rule out ACS: serial trops Q8 negative x3 - Original EKG did not meet code heart criteria. - 3rd Trop elevated to 5.06 05/02 - pro BNP 35 - Heparin SC - ECHO official report: * LV systolic function is normal * EF > 70% * Transmitral Doppler flow pattern is Grade I- abnormal relaxation pattern - Tachycardia observed on telemetry - Nicardipine 5 mg/hr drip began this AM - Cardiology consulted; Dr. Gay; recommendations appreciated * Amlodipine 10 mg PO, Vasotec 1.25 mg IV and Metoprolol 5 mg IV given overnight. Will likely increase daily B bartolo - ASA, Statin, B-bartolo medical therapy - Continue to monitor - Monitor Pulm: Acute Respiratory Failure - on mechanical ventilation: decreased PEEP to 3 - Continue to titrate FiO2 to keep SpO2 > 92 - Continue bronchodilators - Monitor - CT chest abdomen pelvis without contrast official report: * Minimal bilateral pleural effusions * No fracture * No pneumothorax * Multifocal infiltrates at the bilateral upper and lower lobes as well as the right middle lobe in a pattern that could reflect aspiration given dependent subsegment affected Renal: Acute Renal Failure, improving - Consistent with ATN 2/2 ischemic vs septic - Environmental Aide consulted, recommendations appreciated * Agree with continue IVF as NS instead on 1/2 NS as has cerebral edema * Prefer to keep serum Na on higher side. * Once cerebral edema improves; switch to 0.45% saline. - START: 0.45% saline started @200mls/hr - Good urine output - No need for dialysis at this time Metabolic Acidosis - Likely 2/2 elevated lactic acid and/or DKA and/or ETOH consumption - Glycemic control - Continue to trend lactic acid - Monitor - Continue Thiamine 100 mg IV daily GI: - No acute issues - NG tube: tube feeds (Glucerna) starting at 25 - Pepcid for Ppx - CT chest abdomen pelvis without contrast official report: * Findings suspicious for segmental colitis involving separate vascular distribution of the colon. Limited abdominal and pelvic ascites noted. No free intra peritoneal gas collection appreciable Endo: Likely history of Diabetes Mellitus Type 2: uncontrolled - ISS: moderate - Hypoglycemic protocol - Accu checks Q6 - NPO diet - IVF - TSH - HgbA1c ID: Sepsis: suspect aspiration pneumonia - ID consulted (Dr. Mcgill); recommendations appreciated * Vanco - contiune * Zosyn - discontinued * Start Meropenem - Sommers culture - Serial Lactic Acid; improving - Chest X-Ray 05/03: * Improved aeration in the right lower lobe with persistent dense consolidation and presumable patchy pneumonia in the left lower lobe. * Stable position of support tubes. Dispo: Patient is pending tracheostomy and PEG placement Consults: Cardio (Dr. Gay); Neurohospitalist; Palliative care (Yesenia); Nephro (Dr. Samuels); ID (Dr. Mcgill); social worker psychiatric; wound care; Ppx: DVT: SCD & heparin, GI: protonix Code status: FULL CODE (unknown) Next of kin: Prognosis: Very Poor Patient seen and case discussed in detail with Dr. Luis F Plasencia PGY1 <George Kerns M - Last Filed: 05/07/18 10:37> CCU Objective - Vital Signs / Intake & Output Intake and Output (Last 8hrs): Intake & Output 05/06/18 05/07/18 05/07/18 22:59 06:59 14:59 Intake Total 675 560 Output Total 1600 800 Balance -925 -240 Weight 146 lb 9.718 oz Intake: Intake, IV Amount 400 500 Right PICC 0 Right Proximal Port PICC 400 500 Oral 60 Tube Feeding 275 Output: Urine 1600 800 Straight 1000 Urethral ([place]) 600 800 Stool 0 - Medications Active Medications: Active Medications Generic Name Dose Route Start Last Admin Trade Name Freq PRN Reason Stop Dose Admin Albuterol/Ipratropium 3 ml 05/02/18 04:00 05/07/18 07:47 Duoneb 3 Mg/0.5 Mg (3 Ml) Ud INH 3 ml RQ4 BETH Administration Amlodipine Besylate 10 mg 05/07/18 10:00 Norvasc PO DAILY BETH Aspirin 81 mg 05/02/18 10:00 05/06/18 09:46 Ecotrin PO 81 mg DAILY BETH Administration Bisacodyl 10 mg 05/07/18 08:19 Dulcolax CO TID PRN Constipation Dextrose 0 ml 05/03/18 12:05 Dextrose 50% Inj IV STAT PRN Hypoglycemia Protocol Protocol Dextrose 15 gm 05/03/18 12:05 Glutose 15 PO ONCE PRN Hypoglycemia Protocol Protocol Docusate Sodium 100 mg 05/07/18 10:00 Colace NG TID BETH Glucagon 1 mg 05/03/18 12:05 Glucagen Diagnostic Kit IM STAT PRN Hypoglycemia Protocol Protocol Heparin Sodium (Porcine) 5,000 units 05/03/18 14:00 05/07/18 06:29 Heparin SC 5,000 units Q8 BETH Administration Hydralazine HCl 25 mg 05/06/18 18:06 05/06/18 22:53 Apresoline PO 25 mg QID BETH Administration Levetiracetam 1,000 mg/ Sodium 110 mls @ 420 mls/hr 05/02/18 11:30 05/06/18 23:00 Chloride IVPB 420 mls/hr Q12H BEHT Administration Vancomycin HCl 1,000 mg/ 200 mls @ 133.333 mls/hr 05/02/18 19:00 05/07/18 06:28 Sodium Chloride IVPB 133.333 mls/hr Q12H BETH Administration Protocol Meropenem 1 gm/ Sodium 100 mls @ 100 mls/hr 05/02/18 18:30 05/07/18 01:42 Chloride IVPB 100 mls/hr Q8H BETH Administration Protocol Dextrose 1,000 mls @ 0 mls/hr 05/05/18 13:57 Dextrose 5% In Water 1000 Ml IV .Q0M PRN Hypoglycemia Protocol Protocol Per Protocol Metronidazole 500 mg in 100 mls @ 100 mls/hr 05/06/18 10:00 05/07/18 01:42 Flagyl IVPB 100 mls/hr Q8H BETH Administration Protocol Ibuprofen 200 mg 05/05/18 17:37 05/05/18 20:00 Motrin Oral Susp PO 200 mg Q6H PRN Administration Fever >100.4 F Insulin Aspart 0 unit 05/03/18 18:00 05/07/18 06:29 Novolog SC 4 units Q6 BETH Administration Protocol Insulin Glargine 10 unit 05/06/18 10:00 05/06/18 09:43 Lantus SC 20 u DAILY BETH Administration Labetalol HCl 10 mg 05/06/18 17:31 05/07/18 06:29 Trandate IVP 10 mg Q4H PRN Administration Systolic Blood Pressure Lactobacillus Acidophilus 1 cap 05/07/18 10:00 Bacid Acidophilus PO BID [facility] Metoprolol Tartrate 75 mg 05/06/18 18:04 Lopressor PO BID [facility] Pantoprazole Sodium 40 mg 05/06/18 10:00 05/06/18 09:45 Protonix Susp NG 40 mg DAILY BETH Administration Rosuvastatin Calcium 5 mg 05/03/18 22:00 05/06/18 22:53 Crestor PO 5 mg HS BETH Administration Sennosides 8.6 mg 05/07/18 10:00 Senokot Tab PO DAILY BETH Thiamine HCl 100 mg 05/03/18 10:45 05/06/18 09:44 Vitamin B1 Inj IV 100 mg DAILY BETH Administration - Patient Studies Lab Studies: Microbiology Studies 05/02/18 01:08 Blood Culture - Final Blood-Venous NO GROWTH AFTER 5 DAYS Gram Stain - Final TEST NOT PERFORMED 05/02/18 01:07 Blood Culture - Final Blood-Venous NO GROWTH AFTER 5 DAYS Gram Stain - Final TEST NOT PERFORMED Lab Studies 05/07/18 05/07/18 05/07/18 Range/Units 06:37 06:14 06:14 WBC 16.1 H (4.8-10.8) K/uL RBC 4.82 (3.80-5.20) Mil/uL Hgb 12.5 (11.0-16.0) g/dL Hct 38.0 (34.0-47.0) % MCV 79.0 L (81.0-99.0) fL MCH 26.0 L (27.0-31.0) pg MCHC 32.9 L (33.0-37.0) g/dL RDW 15.6 H (11.5-14.5) % Plt Count 171 (130-400) K/uL MPV 11.2 (7.2-11.7) fL Neut % (Auto) 85.5 H (50.0-75.0) % Lymph % (Auto) 9.4 L (20.0-40.0) % [place] % (Auto) 3.7 (0.0-10.0) % Eos % (Auto) 0.9 (0.0-4.0) % Baso % (Auto) 0.5 (0.0-2.0) % Neut # (Auto) 13.8 H (1.8-7.0) K/uL Lymph # (Auto) 1.5 (1.0-4.3) K/uL [place] # (Auto) 0.6 (0.0-0.8) K/uL Eos # (Auto) 0.1 (0.0-0.7) K/uL Baso # (Auto) 0.1 (0.0-0.2) K/uL Neutrophils % (Manual) 85 H (50-75) % Lymphocytes % (Manual) 13 L (20-40) % Monocytes % (Manual) 1 (0-10) % Eosinophils % (Manual) 1 (0-4) % Platelet Estimate Normal (NORMAL) Polychromasia Slight Hypochromasia (manual) Slight Anisocytosis (manual) Slight Puncture Site R rad pCO2 29 L pO2 144 H HCO3 25.8 ABG pH 7.51 H ABG Total CO2 24.0 ABG O2 Saturation 99.4 H ABG Base Excess 1.0 Erik Test Pos ABG Potassium 3.8 A-a O2 Difference 105.0 Respiratory Index 0.7 Sodium 149.0 H 145 Chloride 118.0 H 114 H Glucose 275 H Lactate 2.0 Liter Flow Vent Mode A/c pc Mechanical Rate 18 Spontaneous Rate FiO2 40.0 Tidal Volume PEEP 5 Pressure Support CPAP Inspiratory BiPAP Expiratory BiPAP Blood Gas Comments Crit Value Called To Crit Value Called By Crit Value Read Back Blood Gas Notified Time Potassium 4.7 (3.6-5.2) mmol/L Carbon Dioxide 23 (22-30) mmol/L Anion Gap 13 (10-20) BUN 22 H (7-17) mg/dL Creatinine 0.8 (0.7-1.2) mg/dL Est GFR ( Amer) > 60 Est GFR (Non-Af Amer) > 60 POC Glucose (mg/dL) (65-110) mg/dL Random Glucose 249 H (65-105) mg/dL Calcium 8.0 L (8.6-10.4) mg/dl Phosphorus 3.0 (2.5-4.5) mg/dL Magnesium 2.7 H (1.6-2.3) mg/dL Total Bilirubin 1.0 (0.2-1.3) mg/dL AST 55 H (14-36) U/L ALT 98 H (9-52) U/L Alkaline Phosphatase 167 H D (38-126) U/L Total Protein 6.3 (6.3-8.3) g/dL Albumin 3.1 L D (3.5-5.0) g/dL Globulin 3.2 (2.2-3.9) gm/dL Albumin/Globulin Ratio 1.0 (1.0-2.1) Arterial Blood Potassium 3.8 Urine Color (YELLOW) Urine Clarity (Clear) Urine pH (5.0-8.0) Ur Specific Hew[place] (1.003-1.030) Urine Protein (NEGATIVE) mg/dL Urine Glucose (UA) (Normal) mg/dL Urine Ketones (NEGATIVE) mg/dL Urine Blood (NEGATIVE) Urine Nitrate (NEGATIVE) Urine Bilirubin (NEGATIVE) Urine Urobilinogen (0.2-1.0) mg/dL Ur Leukocyte Esterase (Negative) Devin/uL Urine WBC (Auto) (0-5) /hpf Urine RBC (Auto) (0-3) /hpf Ur Squamous Epith Cells (0-5) /hpf Urine Bacteria (<OCC) 05/07/18 05/07/18 05/06/18 Range/Units 05:56 05:39 23:27 WBC (4.8-10.8) K/uL RBC (3.80-5.20) Mil/uL Hgb (11.0-16.0) g/dL Hct (34.0-47.0) % MCV (81.0-99.0) fL MCH (27.0-31.0) pg MCHC (33.0-37.0) g/dL RDW (11.5-14.5) % Plt Count (130-400) K/uL MPV (7.2-11.7) fL Neut % (Auto) (50.0-75.0) % Lymph % (Auto) (20.0-40.0) % [place] % (Auto) (0.0-10.0) % Eos % (Auto) (0.0-4.0) % Baso % (Auto) (0.0-2.0) % Neut # (Auto) (1.8-7.0) K/uL Lymph # (Auto) (1.0-4.3) K/uL [place] # (Auto) (0.0-0.8) K/uL Eos # (Auto) (0.0-0.7) K/uL Baso # (Auto) (0.0-0.2) K/uL Neutrophils % (Manual) (50-75) % Lymphocytes % (Manual) (20-40) % Monocytes % (Manual) (0-10) % Eosinophils % (Manual) (0-4) % Platelet Estimate (NORMAL) Polychromasia Hypochromasia (manual) Anisocytosis (manual) Puncture Site Cancelled pCO2 Cancelled pO2 Cancelled HCO3 Cancelled ABG pH Cancelled ABG Total CO2 Cancelled ABG O2 Saturation Cancelled ABG Base Excess Cancelled Erik Test Cancelled ABG Potassium Cancelled A-a O2 Difference Cancelled Respiratory Index Cancelled Sodium Cancelled Chloride Cancelled Glucose Cancelled Lactate Cancelled Liter Flow Cancelled Vent Mode Cancelled Mechanical Rate Cancelled Spontaneous Rate Cancelled FiO2 Cancelled Tidal Volume Cancelled PEEP Cancelled Pressure Support Cancelled CPAP Cancelled Inspiratory BiPAP Cancelled Expiratory BiPAP Cancelled Blood Gas Comments Cancelled Crit Value Called To Cancelled Crit Value Called By Cancelled Crit Value Read Back Cancelled Blood Gas Notified Time Cancelled Potassium (3.6-5.2) mmol/L Carbon Dioxide (22-30) mmol/L Anion Gap (10-20) BUN (7-17) mg/dL Creatinine (0.7-1.2) mg/dL Est GFR ( Amer) Est GFR (Non-Af Amer) POC Glucose (mg/dL) 274 H 221 H (65-110) mg/dL Random Glucose (65-105) mg/dL Calcium (8.6-10.4) mg/dl Phosphorus (2.5-4.5) mg/dL Magnesium (1.6-2.3) mg/dL Total Bilirubin (0.2-1.3) mg/dL AST (14-36) U/L ALT (9-52) U/L Alkaline Phosphatase (38-126) U/L Total Protein (6.3-8.3) g/dL Albumin (3.5-5.0) g/dL Globulin (2.2-3.9) gm/dL Albumin/Globulin Ratio (1.0-2.1) Arterial Blood Potassium Cancelled Urine Color (YELLOW) Urine Clarity (Clear) Urine pH (5.0-8.0) Ur Specific [place] (1.003-1.030) Urine Protein (NEGATIVE) mg/dL Urine Glucose (UA) (Normal) mg/dL Urine Ketones (NEGATIVE) mg/dL Urine Blood (NEGATIVE) Urine Nitrate (NEGATIVE) Urine Bilirubin (NEGATIVE) Urine Urobilinogen (0.2-1.0) mg/dL Ur Leukocyte Esterase (Negative) Devin/uL Urine WBC (Auto) (0-5) /hpf Urine RBC (Auto) (0-3) /hpf Ur Squamous Epith Cells (0-5) /hpf Urine Bacteria (<OCC) 11/01/18 11/01/18 11/01/18 Range/Units 21:34 18:03 11:07 WBC (4.8-10.8) K/uL RBC (3.80-5.20) Mil/uL Hgb (11.0-16.0) g/dL Hct (34.0-47.0) % MCV (81.0-99.0) fL MCH (27.0-31.0) pg MCHC (33.0-37.0) g/dL RDW (11.5-14.5) % Plt Count (130-400) K/uL MPV (7.2-11.7) fL Neut % (Auto) (50.0-75.0) % Lymph % (Auto) (20.0-40.0) % [place] % (Auto) (0.0-10.0) % Eos % (Auto) (0.0-4.0) % Baso % (Auto) (0.0-2.0) % Neut # (Auto) (1.8-7.0) K/uL Lymph # (Auto) (1.0-4.3) K/uL [place] # (Auto) (0.0-0.8) K/uL Eos # (Auto) (0.0-0.7) K/uL Baso # (Auto) (0.0-0.2) K/uL Neutrophils % (Manual) (50-75) % Lymphocytes % (Manual) (20-40) % Monocytes % (Manual) (0-10) % Eosinophils % (Manual) (0-4) % Platelet Estimate (NORMAL) Polychromasia Hypochromasia (manual) Anisocytosis (manual) Puncture Site pCO2 pO2 HCO3 ABG pH ABG Total CO2 ABG O2 Saturation ABG Base Excess Erik Test ABG Potassium A-a O2 Difference Respiratory Index Sodium Chloride Glucose Lactate Liter Flow Vent Mode Mechanical Rate Spontaneous Rate FiO2 Tidal Volume PEEP Pressure Support CPAP Inspiratory BiPAP Expiratory BiPAP Blood Gas Comments Crit Value Called To Crit Value Called By Crit Value Read Back Blood Gas Notified Time Potassium (3.6-5.2) mmol/L Carbon Dioxide (22-30) mmol/L Anion Gap (10-20) BUN (7-17) mg/dL Creatinine (0.7-1.2) mg/dL Est GFR ( Amer) Est GFR (Non-Af Amer) POC Glucose (mg/dL) 220 H 185 H (65-110) mg/dL Random Glucose (65-105) mg/dL Calcium (8.6-10.4) mg/dl Phosphorus (2.5-4.5) mg/dL Magnesium (1.6-2.3) mg/dL Total Bilirubin (0.2-1.3) mg/dL AST (14-36) U/L ALT (9-52) U/L Alkaline Phosphatase (38-126) U/L Total Protein (6.3-8.3) g/dL Albumin (3.5-5.0) g/dL Globulin (2.2-3.9) gm/dL Albumin/Globulin Ratio (1.0-2.1) Arterial Blood Potassium Urine Color Straw (YELLOW) Urine Clarity Clear (Clear) Urine pH 7.0 (5.0-8.0) Ur Specific [place] 1.011 (1.003-1.030) Urine Protein Negative (NEGATIVE) mg/dL Urine Glucose (UA) 3+ H (Normal) mg/dL Urine Ketones Trace (NEGATIVE) mg/dL Urine Blood 2+ H (NEGATIVE) Urine Nitrate Negative (NEGATIVE) Urine Bilirubin Negative (NEGATIVE) Urine Urobilinogen Normal (0.2-1.0) mg/dL Ur Leukocyte Esterase Trace (Negative) Devin/uL Urine WBC (Auto) 7 H (0-5) /hpf Urine RBC (Auto) 10 H (0-3) /hpf Ur Squamous Epith Cells < 1 (0-5) /hpf Urine Bacteria Rare (<OCC) Laboratory Results - last 24 hr 05/06/18 05/06/18 05/06/18 11:07 18:03 21:34 WBC RBC Hgb Hct MCV MCH MCHC RDW Plt Count MPV Neut % (Auto) Lymph % (Auto) [place] % (Auto) Eos % (Auto) Baso % (Auto) Neut # (Auto) Lymph # (Auto) [place] # (Auto) Eos # (Auto) Baso # (Auto) Neutrophils % (Manual) Lymphocytes % (Manual) Monocytes % (Manual) Eosinophils % (Manual) Platelet Estimate Polychromasia Hypochromasia (manual) Anisocytosis (manual) Puncture Site pCO2 pO2 HCO3 ABG pH ABG Total CO2 ABG O2 Saturation ABG Base Excess Erik Test ABG Potassium A-a O2 Difference Respiratory Index Sodium Chloride Glucose Lactate Liter Flow Vent Mode Mechanical Rate Spontaneous Rate FiO2 Tidal Volume PEEP Pressure Support CPAP Inspiratory BiPAP Expiratory BiPAP Blood Gas Comments Crit Value Called To Crit Value Called By Crit Value Read Back Blood Gas Notified Time Potassium Carbon Dioxide Anion Gap BUN Creatinine Est GFR ( Amer) Est GFR (Non-Af Amer) POC Glucose (mg/dL) 185 H 220 H Random Glucose Calcium Phosphorus Magnesium Total Bilirubin AST ALT Alkaline Phosphatase Total Protein Albumin Globulin Albumin/Globulin Ratio Arterial Blood Potassium Urine Color Straw Urine Clarity Clear Urine pH 7.0 Ur Specific Hewlett 1.011 Urine Protein Negative Urine Glucose (UA) 3+ H Urine Ketones Trace Urine Blood 2+ H Urine Nitrate Negative Urine Bilirubin Negative Urine Urobilinogen Normal Ur Leukocyte Esterase Trace Urine WBC (Auto) 7 H Urine RBC (Auto) 10 H Ur Squamous Epith Cells < 1 Urine Bacteria Rare 05/06/18 05/07/18 05/07/18 23:27 05:39 05:56 WBC RBC Hgb Hct MCV MCH MCHC RDW Plt Count MPV Neut % (Auto) Lymph % (Auto) [place] % (Auto) Eos % (Auto) Baso % (Auto) Neut # (Auto) Lymph # (Auto) [place] # (Auto) Eos # (Auto) Baso # (Auto) Neutrophils % (Manual) Lymphocytes % (Manual) Monocytes % (Manual) Eosinophils % (Manual) Platelet Estimate Polychromasia Hypochromasia (manual) Anisocytosis (manual) Puncture Site Cancelled pCO2 Cancelled pO2 Cancelled HCO3 Cancelled ABG pH Cancelled ABG Total CO2 Cancelled ABG O2 Saturation Cancelled ABG Base Excess Cancelled Erik Test Cancelled ABG Potassium Cancelled A-a O2 Difference Cancelled Respiratory Index Cancelled Sodium Cancelled Chloride Cancelled Glucose Cancelled Lactate Cancelled Liter Flow Cancelled Vent Mode Cancelled Mechanical Rate Cancelled Spontaneous Rate Cancelled FiO2 Cancelled Tidal Volume Cancelled PEEP Cancelled Pressure Support Cancelled CPAP Cancelled Inspiratory BiPAP Cancelled Expiratory BiPAP Cancelled Blood Gas Comments Cancelled Crit Value Called To Cancelled Crit Value Called By Cancelled Crit Value Read Back Cancelled Blood Gas Notified Time Cancelled Potassium Carbon Dioxide Anion Gap BUN Creatinine Est GFR ( Amer) Est GFR (Non-Af Amer) POC Glucose (mg/dL) 221 H 274 H Random Glucose Calcium Phosphorus Magnesium Total Bilirubin AST ALT Alkaline Phosphatase Total Protein Albumin Globulin Albumin/Globulin Ratio Arterial Blood Potassium Cancelled Urine Color Urine Clarity Urine pH Ur Specific [place] Urine Protein Urine Glucose (UA) Urine Ketones Urine Blood Urine Nitrate Urine Bilirubin Urine Urobilinogen Ur Leukocyte Esterase Urine WBC (Auto) Urine RBC (Auto) Ur Squamous Epith Cells Urine Bacteria 05/07/18 05/07/18 05/07/18 06:14 06:14 06:37 WBC 16.1 H RBC 4.82 Hgb 12.5 Hct 38.0 MCV 79.0 L MCH 26.0 L MCHC 32.9 L RDW 15.6 H Plt Count 171 MPV 11.2 Neut % (Auto) 85.5 H Lymph % (Auto) 9.4 L [place] % (Auto) 3.7 Eos % (Auto) 0.9 Baso % (Auto) 0.5 Neut # (Auto) 13.8 H Lymph # (Auto) 1.5 [place] # (Auto) 0.6 Eos # (Auto) 0.1 Baso # (Auto) 0.1 Neutrophils % (Manual) 85 H Lymphocytes % (Manual) 13 L Monocytes % (Manual) 1 Eosinophils % (Manual) 1 Platelet Estimate Normal Polychromasia Slight Hypochromasia (manual) Slight Anisocytosis (manual) Slight Puncture Site R rad pCO2 29 L pO2 144 H HCO3 25.8 ABG pH 7.51 H ABG Total CO2 24.0 ABG O2 Saturation 99.4 H ABG Base Excess 1.0 Erik Test Pos ABG Potassium 3.8 A-a O2 Difference 105.0 Respiratory Index 0.7 Sodium 145 149.0 H Chloride 114 H 118.0 H Glucose 275 H Lactate 2.0 Liter Flow Vent Mode A/c pc Mechanical Rate 18 Spontaneous Rate FiO2 40.0 Tidal Volume PEEP 5 Pressure Support CPAP Inspiratory BiPAP Expiratory BiPAP Blood Gas Comments Crit Value Called To Crit Value Called By Crit Value Read Back Blood Gas Notified Time Potassium 4.7 Carbon Dioxide 23 Anion Gap 13 BUN 22 H Creatinine 0.8 Est GFR ( Amer) > 60 Est GFR (Non-Af Amer) > 60 POC Glucose (mg/dL) Random Glucose 249 H Calcium 8.0 L Phosphorus 3.0 Magnesium 2.7 H Total Bilirubin 1.0 AST 55 H ALT 98 H Alkaline Phosphatase 167 H D Total Protein 6.3 Albumin 3.1 L D Globulin 3.2 Albumin/Globulin Ratio 1.0 Arterial Blood Potassium 3.8 Urine Color Urine Clarity Urine pH Ur Specific [place] Urine Protein Urine Glucose (UA) Urine Ketones Urine Blood Urine Nitrate Urine Bilirubin Urine Urobilinogen Ur Leukocyte Esterase Urine WBC (Auto) Urine RBC (Auto) Ur Squamous Epith Cells Urine Bacteria Assessment/Plan - Assessment and Plan (Free Text) Plan: Above note reviewed and verified. Patient with anoxic brain injury with HTN currently on IV cardene -Anoxic brain injury: will benefit from chronic vent support -HTN: start lopressor + hydralazine, d/c nicardipene -sepsis: continue abx as per ID, not on pressors -d/c colindres -left arm skin wound care -continue tube feeds continue dvt/pud ppx -d/w family regarding Early trach and peg. Prognosis poor as patient has significant anoxic brain injury. cc time 35 minutes - Date & Time Date: 05/06/18 Time: 21:00
[2018-05-06] MEDS: levETIRAcetam 1,000 MG in Sodium Chloride 0.9% 100 ML IVPB SCH ×2 (13:29→23:00)
--- NOTE | 2018-05-06 14:01 | CP.PCM.PCO ---
Physician Communication Note - Physician Communication Note Physician Communication Note: Family meeting tomorrow. Time to be anounced
--- NOTE | 2018-05-06 17:36 | CP.PCM.PN ---
Subjective - Date & Time of Evaluation Date of Evaluation: 05/06/18 Time of Evaluation: 17:15 - Subjective Subjective: Hospitalist Progress Note Patient was seen and examined at 5:15 PM 05/06/18 ICU Bed #18 General: Intubated on vent, nonresponsive HEENT: NCA, Pupils are round and reactive to light, NO cervical/supraclavicular/submandibular lymphadenopathy, Right mid to lateral neck there is a 1 mm thick eschar Cardio: NS1 and NS2, NO M/R/G Respiratory: Diffuse course breath sounds bilaterallly GI: BSx4 are decreased, Soft, ND, NO HSM, NO guarding Ext: Pulses are strong and equal, Capillary Refill is 2 seconds, Nonpitting edema noted in the bilateral hands/arms Neuro: exam not possible at this time Skin: multiple areas of bruising noted at IV attempts on Right antecubittal fossa, Noted today on left anterior lower lateral arm is an eschar that appears to be square in nature which has been noted by nursing since 05/04/18 1.Respiratory Failure Due to Asphyxiation/Possible Suicide Attempt Intubated and on [facility] were made aware by admitting team 2. NSTEMI Elevated troponin ASA 81 mg PO 1x/day Crestor 5 mg PO 1x/day Dr Gay consulted 3. Leukocytosis Likely Secondary to Aspiration Pneumonia Chest X Ray indicated Right Lung Infiltrate Flagyl 500 mg IV Q8H Meropenem 500 mg IV Q8H Vancomycin 1 gm IV Q12H 4. Anoxic Brain Injury EEG showed diffuse encephalopathy with burst suppression. Repeat CT head-no bleeding MRI Brain: most compatible with subacute favored over acute cereberal hypoxic insult with minimal involvement of the lower haris and the cerebellar hemispheres Neurology Dr. Duff/Guilherme 5. Transaminitis Likely shock liver Follow LFTs 6. Diabetes mellitus Lantus 10 Units SC 1x/day Aspart ISS Q6H 7. ARF Likely Secondary to ATN with Hypernatremia Treated with 1/2 NS which was stopped 05/06/18 Na has normalized BUN/Cr have improved Ocular Care Technician Dr. Samuels 8. HTN Nicardipine Drip stopped earlier today Hydralazine 25 mg PO TID Metoprolol Tartrate 75 mg PO BID Norvasc 5 mg PO 1x/day Labetalol 10 mg IV Q4H PRN SBP > 140 8. Prophylaxis Heparin 5,000 Units SC Q8H Protonix 40 mg NGT Feeding with goal of 50 ml/hr Spoke with Palliative Care Nurse Antoni and there is a family meeting to be scheduled for Thursday05/07/18 to help determine what their wishes are for continued treatment Vick Kerns D.O. Objective - Vital Signs/Intake and Output Vital Signs (last 24 hours): Temp Pulse Resp BP Pulse Ox 99.2 F 85 19 127/94 H 99 05/06/18 16:00 05/06/18 16:00 05/06/18 16:00 05/06/18 15:57 05/06/18 16:00 Intake and Output: 05/06/18 05/06/18 06:59 18:59 Intake Total 2850 1295.0 Output Total 1650 945 Balance 1200 350.0 - Medications Medications: Current Medications Albuterol/Ipratropium (Duoneb 3 Mg/0.5 Mg (3 Ml) Ud) 3 ml INH RQ4 [facility] Last Admin: 05/06/18 16:45 Dose: 3 ml Aspirin (Ecotrin) 81 mg PO DAILY [facility] Last Admin: 05/06/18 09:46 Dose: 81 mg Dextrose (Dextrose 50% Inj) 0 ml IV STAT PRN; Protocol PRN Reason: Hypoglycemia Protocol Dextrose (Glutose 15) 15 gm PO ONCE PRN; Protocol PRN Reason: Hypoglycemia Protocol Glucagon (Glucagen Diagnostic Kit) 1 mg IM STAT PRN; Protocol PRN Reason: Hypoglycemia Protocol Heparin Sodium (Porcine) (Heparin) 5,000 units SC Q8 [facility] Last Admin: 05/06/18 13:31 Dose: 5,000 units Hydralazine HCl (Apresoline) 10 mg PO QID [facility] Last Admin: 05/06/18 13:33 Dose: 10 mg Hydralazine HCl (Apresoline) 10 mg IVP Q4H PRN PRN Reason: Systolic Blood Pressure Levetiracetam 1,000 mg/ Sodium (Chloride) 110 mls @ 420 mls/hr IVPB Q12H [facility] Last Admin: 05/06/18 13:29 Dose: 420 mls/hr Vancomycin HCl 1,000 mg/ (Sodium Chloride) 200 mls @ 133.333 mls/hr IVPB Q12H [facility]; Protocol Last Admin: 05/06/18 06:03 Dose: 133.333 mls/hr Meropenem 1 gm/ Sodium (Chloride) 100 mls @ 100 mls/hr IVPB Q8H [facility]; Protocol Last Admin: 05/06/18 11:38 Dose: 100 mls/hr Dextrose (Dextrose 5% In Water 1000 Ml) 1,000 mls @ 0 mls/hr IV .Q0M PRN; Protocol PRN Reason: Hypoglycemia Protocol Metronidazole (Flagyl) 500 mg in 100 mls @ 100 mls/hr IVPB Q8H [facility]; Protocol Last Admin: 05/06/18 17:15 Dose: 100 mls/hr Ibuprofen (Motrin Oral Susp) 200 mg PO Q6H PRN PRN Reason: Fever >100.4 F Last Admin: 05/05/18 20:00 Dose: 200 mg Insulin Aspart (Novolog) 0 unit SC Q6 [facility]; Protocol Last Admin: 05/06/18 11:39 Dose: 2 units Insulin Glargine (Lantus) 10 unit SC DAILY [facility] Last Admin: 05/06/18 09:43 Dose: 20 u Labetalol HCl (Trandate) 10 mg IVP Q4H PRN PRN Reason: Systolic Blood Pressure Metoprolol Tartrate (Lopressor) 25 mg PO BID [facility] Last Admin: 05/06/18 09:45 Dose: 25 mg Pantoprazole Sodium (Protonix Susp) 40 mg NG DAILY [facility] Last Admin: 05/06/18 09:45 Dose: 40 mg Rosuvastatin Calcium (Crestor) 5 mg PO HS [facility] Last Admin: 05/05/18 22:41 Dose: 5 mg Thiamine HCl (Vitamin B1 Inj) 100 mg IV DAILY [facility] Last Admin: 05/06/18 09:44 Dose: 100 mg - Labs Labs: 05/06/18 04:20 05/06/18 04:20 PT 12.6 SECONDS (9.7-12.2) H 05/02/18 13:23 INR 1.2 05/02/18 13:23 APTT 128 SECONDS (21-34) H* D 05/02/18 20:39
--- NOTE | 2018-05-06 17:45 | CP.PCM.PN ---
Subjective - Date & Time of Evaluation Date of Evaluation: 05/06/18 Time of Evaluation: 09:00 - Subjective Subjective: eschar noted left wrist approx 3-4 cm rectangular no pus expressed no gas in soft tissues hand is warm and pulses + unclear etiology- likely traumatic in nature recommend imaging when possible, wound care measures and cont present antibiotics consider cultures for anthrax and brucella tetanus toxoid Objective - Vital Signs/Intake and Output Vital Signs (last 24 hours): Temp Pulse Resp BP Pulse Ox 99.2 F 85 19 127/94 H 99 05/06/18 16:00 05/06/18 16:00 05/06/18 16:00 05/06/18 15:57 05/06/18 16:00 Intake and Output: 05/06/18 05/06/18 06:59 18:59 Intake Total 2850 1295.0 Output Total 1650 945 Balance 1200 350.0 - Medications Medications: Current Medications Albuterol/Ipratropium (Duoneb 3 Mg/0.5 Mg (3 Ml) Ud) 3 ml INH RQ4 [facility] Last Admin: 05/06/18 16:45 Dose: 3 ml Aspirin (Ecotrin) 81 mg PO DAILY [facility] Last Admin: 05/06/18 09:46 Dose: 81 mg Dextrose (Dextrose 50% Inj) 0 ml IV STAT PRN; Protocol PRN Reason: Hypoglycemia Protocol Dextrose (Glutose 15) 15 gm PO ONCE PRN; Protocol PRN Reason: Hypoglycemia Protocol Glucagon (Glucagen Diagnostic Kit) 1 mg IM STAT PRN; Protocol PRN Reason: Hypoglycemia Protocol Heparin Sodium (Porcine) (Heparin) 5,000 units SC Q8 [facility] Last Admin: 05/06/18 13:31 Dose: 5,000 units Hydralazine HCl (Apresoline) 10 mg PO QID [facility] Last Admin: 05/06/18 13:33 Dose: 10 mg Hydralazine HCl (Apresoline) 10 mg IVP Q4H PRN PRN Reason: Systolic Blood Pressure Levetiracetam 1,000 mg/ Sodium (Chloride) 110 mls @ 420 mls/hr IVPB Q12H [facility] Last Admin: 05/06/18 13:29 Dose: 420 mls/hr Vancomycin HCl 1,000 mg/ (Sodium Chloride) 200 mls @ 133.333 mls/hr IVPB Q12H [facility]; Protocol Last Admin: 05/06/18 06:03 Dose: 133.333 mls/hr Meropenem 1 gm/ Sodium (Chloride) 100 mls @ 100 mls/hr IVPB Q8H [facility]; Protocol Last Admin: 05/06/18 11:38 Dose: 100 mls/hr Dextrose (Dextrose 5% In Water 1000 Ml) 1,000 mls @ 0 mls/hr IV .Q0M PRN; Protocol PRN Reason: Hypoglycemia Protocol Metronidazole (Flagyl) 500 mg in 100 mls @ 100 mls/hr IVPB Q8H [facility]; Protocol Last Admin: 05/06/18 17:15 Dose: 100 mls/hr Ibuprofen (Motrin Oral Susp) 200 mg PO Q6H PRN PRN Reason: Fever >100.4 F Last Admin: 05/05/18 20:00 Dose: 200 mg Insulin Aspart (Novolog) 0 unit SC Q6 [facility]; Protocol Last Admin: 05/06/18 11:39 Dose: 2 units Insulin Glargine (Lantus) 10 unit SC DAILY [facility] Last Admin: 05/06/18 09:43 Dose: 20 u Labetalol HCl (Trandate) 10 mg IVP Q4H PRN PRN Reason: Systolic Blood Pressure Metoprolol Tartrate (Lopressor) 25 mg PO BID [facility] Last Admin: 05/06/18 09:45 Dose: 25 mg Pantoprazole Sodium (Protonix Susp) 40 mg NG DAILY [facility] Last Admin: 05/06/18 09:45 Dose: 40 mg Rosuvastatin Calcium (Crestor) 5 mg PO HS [facility] Last Admin: 05/05/18 22:41 Dose: 5 mg Thiamine HCl (Vitamin B1 Inj) 100 mg IV DAILY [facility] Last Admin: 05/06/18 09:44 Dose: 100 mg - Labs Labs: 05/06/18 04:20 05/06/18 04:20 PT 12.6 SECONDS (9.7-12.2) H 05/02/18 13:23 INR 1.2 05/02/18 13:23 APTT 128 SECONDS (21-34) H* D 05/02/18 20:39 Assessment and Plan (1) Hyperglycemia Status: Acute (2) Leukocytosis Status: Acute (3) Respiratory failure Status: Acute
[2018-05-06] MEDS: Labetalol 5mg/ml (4ml) IVP PRN ×2 (17:55→22:00)
[2018-05-06 21:47] LABS: SQUAMOUS EPITHIAL < 1 /hpf (0-5); URINE BACTERIA RARE (<OCC); URINE BILIRUBIN NEGATIVE (NEGATIVE); URINE BLOOD 2+ (NEGATIVE); URINE CLARITY Clear (Clear); URINE COLOR Straw (YELLOW); URINE GLUCOSE (UA) 3+ mg/dL (Normal); URINE LEUKOCYTE ESTERASE TRACE Leu/uL (Negative); URINE PROTEIN NEGATIVE (NEGATIVE); URINE UROBILINOGEN NORMAL mg/dL (0.2-1.0)
[2018-05-07] MEDS: (Novolog) Insulin Aspart, Recombinant 100 u/ml 10 ml vial SC SCH ×4 (01:00→18:59)
[2018-05-07] MEDS: Albuterol-Ipratrop 3 mg / 0.5 (3 ml) UD INH SCH ×6 (01:00→19:27)
[2018-05-07] MEDS: metroNIDAZOLE IV 500 mg/100 ml 500 MG/100 ML BAG IVPB SCH ×3 (01:42→19:02)
[2018-05-07] MEDS: Meropenem 1 GM in Sodium Chloride 0.9% 100 ML IVPB SCH ×3 (01:42→19:02)
[2018-05-07] MEDS: Labetalol 5mg/ml (4ml) IVP PRN ×2 (03:00→06:29)
[2018-05-07] MEDS ORDERED: Enalaprilat 2.5 MG/2 ML IV ONE (03:36)
[2018-05-07 06:35] LABS: BASO # 0.1 K/uL (0.0-0.2); BASO % 0.5 % (0.0-2.0); EOS # 0.1 K/uL (0.0-0.7); EOS % 0.9 % (0.0-4.0); HEMOGLOBIN 12.5 g/dL (11.0-16.0); LYMPH # 1.5 K/uL (1.0-4.3); LYMPH % 9.4 % (20.0-40.0); MEAN CORPUSCULAR HGB CONC 32.9 g/dL (33.0-37.0); MEAN PLATELET VOLUME 11.2 fL (7.2-11.7); MONO # 0.6 K/uL (0.0-0.8); MONO % 3.7 % (0.0-10.0); NEUT # 13.8 K/uL (1.8-7.0); NEUT % 85.5 % (50.0-75.0); NRBC % 0.2 % (0.0-2.0); PLATELET COUNT 171 K/uL (130-400); RBC 4.82 Mil/uL (3.80-5.20); RED CELL DISTRIBUTION WIDTH 15.6 % (11.5-14.5); WHITE BLOOD COUNT 16.1 K/uL (4.8-10.8)
[2018-05-07 06:40] LABS: ABG ALLEN TEST POS; ARTERIAL BLOOD GAS HCO3 25.8 mmol/L (21-28); ARTERIAL BLOOD GAS O2 SAT 99.4 % (95-98); ARTERIAL BLOOD GAS PCO2 29 mm/Hg (35-45); ARTERIAL BLOOD GAS PH 7.51 (7.35-7.45); ARTERIAL BLOOD GAS PO2 144 mm/Hg (80-100)
[2018-05-07 06:58] LABS: BLOOD UREA NITROGEN 22 mg/dL (7-17); GFR NON-AFRICAN AMERICAN > 60
[2018-05-07 06:59] LABS: ALBUMIN 3.1 g/dL (3.5-5.0); ALT/SGPT 98 U/L (9-52); AST/SGOT 55 U/L (14-36)
[2018-05-07 08:21] LABS: ANISOCYTOSIS SLIGHT; EOSINOPHIL 1 % (0-4); HYPOCHROMIC SLIGHT; LYMPHOCYTE 13 % (20-40); MONOCYTE 1 % (0-10); NEUTROPHIL 85 % (50-75); PLATELET ESTIMATE NORMAL (NORMAL); TOTAL CELLS COUNTED 100
[2018-05-07 08:22] LABS: POLYCHROMIC SLIGHT
--- NOTE | 2018-05-07 08:38 | RAD ---
Date of service: 05/07/2018 HISTORY: intubated COMPARISON: 05/06/2018 FINDINGS: Endotracheal tube terminates 5.5 cm proximal to the aiden. The right PICC line terminates at the cavoatrial junction. The nasogastric tube terminates in the stomach. LUNGS: The lungs are well inflated and clear. PLEURA: No pleural effusions or pneumothorax. CARDIOVASCULAR: The heart is normal in size. No aortic atherosclerotic calcification present. OSSEOUS STRUCTURES: Within normal limits for the patient's age. VISUALIZED UPPER ABDOMEN: Normal. OTHER FINDINGS: None. IMPRESSION: No active pulmonary disease. Stable position of support line and tubes.
--- NOTE | 2018-05-07 10:39 | CP.PCM.PN ---
Subjective - Date & Time of Evaluation Date of Evaluation: 05/07/18 Time of Evaluation: 10:33 - Subjective Subjective: Patient examined in bed, intubated and on CPAP. Patient is nonverbal and unable to fallow simple commends. The corneal and gag reflexes are present. Patient reacts to tactile stimuli; squeezes her hand and closes her eyes more tight. Th ose reactions are not purposeful. patient's son arrived from and the rest of the family came in for the meeting this morning Objective - Vital Signs/Intake and Output Vital Signs (last 24 hours): Temp Pulse Resp BP Pulse Ox 99.9 F H 85 18 164/94 H 99 05/07/18 04:00 05/07/18 06:00 05/07/18 06:00 05/07/18 05:58 05/07/18 06:00 Intake and Output: 05/07/18 05/07/18 06:59 18:59 Intake Total 880 Output Total 1400 Balance -520 - Medications Medications: Current Medications Albuterol/Ipratropium (Duoneb 3 Mg/0.5 Mg (3 Ml) Ud) 3 ml INH RQ4 [facility] Last Admin: 05/07/18 07:47 Dose: 3 ml Amlodipine Besylate (Norvasc) 10 mg PO DAILY [facility] Aspirin (Ecotrin) 81 mg PO DAILY [facility] Last Admin: 05/06/18 09:46 Dose: 81 mg Bisacodyl (Dulcolax) 10 mg NC TID PRN PRN Reason: Constipation Dextrose (Dextrose 50% Inj) 0 ml IV STAT PRN; Protocol PRN Reason: Hypoglycemia Protocol Dextrose (Glutose 15) 15 gm PO ONCE PRN; Protocol PRN Reason: Hypoglycemia Protocol Docusate Sodium (Colace) 100 mg NG TID [facility] Glucagon (Glucagen Diagnostic Kit) 1 mg IM STAT PRN; Protocol PRN Reason: Hypoglycemia Protocol Heparin Sodium (Porcine) (Heparin) 5,000 units SC Q8 [facility] Last Admin: 05/07/18 06:29 Dose: 5,000 units Hydralazine HCl (Apresoline) 25 mg PO QID [facility] Last Admin: 05/06/18 22:53 Dose: 25 mg Levetiracetam 1,000 mg/ Sodium (Chloride) 110 mls @ 420 mls/hr IVPB Q12H [facility] Last Admin: 05/06/18 23:00 Dose: 420 mls/hr Vancomycin HCl 1,000 mg/ (Sodium Chloride) 200 mls @ 133.333 mls/hr IVPB Q12H [facility]; Protocol Last Admin: 05/07/18 06:28 Dose: 133.333 mls/hr Meropenem 1 gm/ Sodium (Chloride) 100 mls @ 100 mls/hr IVPB Q8H [facility]; Protocol Last Admin: 05/07/18 01:42 Dose: 100 mls/hr Dextrose (Dextrose 5% In Water 1000 Ml) 1,000 mls @ 0 mls/hr IV .Q0M PRN; Protocol PRN Reason: Hypoglycemia Protocol Metronidazole (Flagyl) 500 mg in 100 mls @ 100 mls/hr IVPB Q8H [facility]; Protocol Last Admin: 05/07/18 01:42 Dose: 100 mls/hr Ibuprofen (Motrin Oral Susp) 200 mg PO Q6H PRN PRN Reason: Fever >100.4 F Last Admin: 05/05/18 20:00 Dose: 200 mg Insulin Aspart (Novolog) 0 unit SC Q6 [facility]; Protocol Last Admin: 05/07/18 06:29 Dose: 4 units Insulin Glargine (Lantus) 10 unit SC DAILY [facility] Last Admin: 05/06/18 09:43 Dose: 20 u Labetalol HCl (Trandate) 10 mg IVP Q4H PRN PRN Reason: Systolic Blood Pressure Last Admin: 05/07/18 06:29 Dose: 10 mg Lactobacillus Acidophilus (Bacid Acidophilus) 1 cap PO BID [facility] Metoprolol Tartrate (Lopressor) 75 mg PO BID [facility] Pantoprazole Sodium (Protonix Susp) 40 mg NG DAILY [facility] Last Admin: 05/06/18 09:45 Dose: 40 mg Rosuvastatin Calcium (Crestor) 5 mg PO HS [facility] Last Admin: 05/06/18 22:53 Dose: 5 mg Sennosides (Senokot Tab) 8.6 mg PO DAILY [facility] Thiamine HCl (Vitamin B1 Inj) 100 mg IV DAILY [facility] Last Admin: 05/06/18 09:44 Dose: 100 mg - Labs Labs: 05/07/18 06:14 05/07/18 06:14 PT 12.6 SECONDS (9.7-12.2) H 05/02/18 13:23 INR 1.2 05/02/18 13:23 APTT 128 SECONDS (21-34) H* D 05/02/18 20:39 - Constitutional Appears: In Acute Distress - Head Exam Head Exam: ATRAUMATIC, NORMAL INSPECTION, NORMOCEPHALIC - Eye Exam Eye Exam: EOMI, Normal appearance, PERRL Pupil Exam: NORMAL ACCOMODATION, PERRL - ENT Exam Additional comments: ETT - Respiratory Exam Additional comments: On CPAP - Cardiovascular Exam Cardiovascular Exam: Tachycardia - GI/Abdominal Exam GI & Abdominal Exam: Soft, Normal Bowel Sounds - Rectal Exam Rectal Exam: Deferred - Extremities Exam Extremities Exam: Pedal Edema - Back Exam Back Exam: NORMAL INSPECTION - Neurological Exam Neurological Exam: Motor Sensory Deficit Neuro motor strength exam: Left Upper Extremity: 0, Right Upper Extremity: 2/1, Left Lower Extremity: 0, Right Lower Extremity: 0 - Psychiatric Exam Psychiatric exam: Flat Affect - Skin Skin Exam: Normal Color, Warm Assessment and Plan - Assessment and Plan (Free Text) Assessment: Family meting attended by patient's and son and two sisters. Translation provided by Christine OG. I reviewed patient's clinical condition and elicited family's understanding . The said that he was told by the Doctors that there was brain damage caused by lack of O2. he wanted to know more about what to expect and if his was ever to fully recover. I explained that at this point no body could with certainty say if she was to recover and to what extent. 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 Trach and PEG discussed. Family was made aware of reasons for these procedures. The surgical instrument mechanic spoke to family as well. They agreed with procedures. Family admitted believing in power of prayer. Tower Director [place] was called for Spiritual support. Family expressed gratitude in the care provided for this patient. Impression * Anoxic brain injury * Acute on chronic respiratory distress * GCS 3 * Family advocates for patient * Family agreed with trach and PEG and LTAC placement Suggestions * promote comfort; oral care, reposition Q 2 hr, aspiration precautions * Continue CPAP * PEG and trach * LTAC placement planing Advance care planing 46 min
--- NOTE | 2018-05-07 10:41 | CP.CCUPN ---
<Marycruz Plasencia - Last Filed: 05/07/18 10:40> CCU Subjective - Physician Review Events Since Last Encounter (Free Text): 05/07/18 10:40 No acute events overnight Subjective (Free Text): 05/07/18 10:40 PGY1 Critical Care Progress Note for Dr. Kerns Patient seen and examined at bedside this morning. Family members present. Patient mechanically ventilated. Patient opened her eyes to name today. Otherwise, no acute events overnight, per nurse. Unable to obtained ROS due to clinical condition. Critical Care Time Spent (in minutes): 35 CCU Objective - Vital Signs / Intake & Output Intake and Output (Last 8hrs): Intake & Output 05/06/18 05/07/18 05/07/18 22:59 06:59 14:59 Intake Total 675 560 Output Total 1600 800 Balance -925 -240 Weight 146 lb 9.718 oz Intake: Intake, IV Amount 400 500 Right PICC 0 Right Proximal Port PICC 400 500 Oral 60 Tube Feeding 275 Output: Urine 1600 800 Straight 1000 Urethral (Alvarado) 600 800 Stool 0 - Physical Exam Pupils: Positive for: PERRL Extroacular Muscles: Negative for: EOMI Conjunctiva: Positive for: Normal Mouth: Positive for: Moist Mucous Membranes Nose (External): Positive for: Atraumatic. Negative for: Lesions Nose (Internal): Positive for: Normal Inspection, No Active Bleeding Neck: Positive for: Trachea Midline, Other (skin changes (reddish/hyperpigmented) consisent with ligation around neck ). Negative for: Meningeal Signs Cardiovascular: Positive for: Normal S1, S2, Tachycardic Abdomen: Negative for: Distention, Rebound, Guarding Breast/Axillary: Positive for: Other (Bruising in axillae bilaterally ) Lower Extremity: Positive for: Normal Inspection. Negative for: Edema Neurological: Positive for: Other (GCS=6T). Negative for: CN II-XII Intact Skin: Positive for: Warm, Dry, Normal Color Psychiatric: Negative for: Alert, Oriented x 3 - Medications Active Medications: Active Medications Generic Name Dose Route Start Last Admin Trade Name Freq PRN Reason Stop Dose Admin Albuterol/Ipratropium 3 ml 05/02/18 04:00 05/07/18 07:47 Duoneb 3 Mg/0.5 Mg (3 Ml) Ud INH 3 ml RQ4 BETH Administration Amlodipine Besylate 10 mg 05/07/18 10:00 Norvasc PO DAILY BETH Aspirin 81 mg 05/02/18 10:00 05/06/18 09:46 Ecotrin PO 81 mg DAILY BETH Administration Bisacodyl 10 mg 05/07/18 08:19 Dulcolax VT TID PRN Constipation Dextrose 0 ml 05/03/18 12:05 Dextrose 50% Inj IV STAT PRN Hypoglycemia Protocol Protocol Dextrose 15 gm 05/03/18 12:05 Glutose 15 PO ONCE PRN Hypoglycemia Protocol Protocol Docusate Sodium 100 mg 05/07/18 10:00 Colace NG TID BETH Glucagon 1 mg 05/03/18 12:05 Glucagen Diagnostic Kit IM STAT PRN Hypoglycemia Protocol Protocol Heparin Sodium (Porcine) 5,000 units 05/03/18 14:00 05/07/18 06:29 Heparin SC 5,000 units Q8 BETH Administration Hydralazine HCl 25 mg 05/06/18 18:06 05/06/18 22:53 Apresoline PO 25 mg QID BETH Administration Levetiracetam 1,000 mg/ Sodium 110 mls @ 420 mls/hr 05/02/18 11:30 05/06/18 23:00 Chloride IVPB 420 mls/hr Q12H BETH Administration Vancomycin HCl 1,000 mg/ 200 mls @ 133.333 mls/hr 05/02/18 19:00 05/07/18 06:28 Sodium Chloride IVPB 133.333 mls/hr Q12H BETH Administration Protocol Meropenem 1 gm/ Sodium 100 mls @ 100 mls/hr 05/02/18 18:30 05/07/18 01:42 Chloride IVPB 100 mls/hr Q8H BETH Administration Protocol Dextrose 1,000 mls @ 0 mls/hr 05/05/18 13:57 Dextrose 5% In Water 1000 Ml IV .Q0M PRN Hypoglycemia Protocol Protocol Per Protocol Metronidazole 500 mg in 100 mls @ 100 mls/hr 05/06/18 10:00 05/07/18 01:42 Flagyl IVPB 100 mls/hr Q8H BETH Administration Protocol Ibuprofen 200 mg 05/05/18 17:37 05/05/18 20:00 Motrin Oral Susp PO 200 mg Q6H PRN Administration Fever >100.4 F Insulin Aspart 0 unit 05/03/18 18:00 05/07/18 06:29 Novolog SC 4 units Q6 BETH Administration Protocol Insulin Glargine 10 unit 05/06/18 10:00 05/06/18 09:43 Lantus SC 20 u DAILY BETH Administration Labetalol HCl 10 mg 05/06/18 17:31 05/07/18 06:29 Trandate IVP 10 mg Q4H PRN Administration Systolic Blood Pressure Lactobacillus Acidophilus 1 cap 05/07/18 10:00 Bacid Acidophilus PO BID BETH Metoprolol Tartrate 75 mg 05/06/18 18:04 Lopressor PO BID BETH Pantoprazole Sodium 40 mg 05/06/18 10:00 05/06/18 09:45 Protonix Susp NG 40 mg DAILY BETH Administration Rosuvastatin Calcium 5 mg 05/03/18 22:00 05/06/18 22:53 Crestor PO 5 mg HS BETH Administration Sennosides 8.6 mg 05/07/18 10:00 Senokot Tab PO DAILY ON LICENSE OF [facility] Thiamine HCl 100 mg 05/03/18 10:45 05/06/18 09:44 Vitamin B1 Inj IV 100 mg DAILY BETH Administration - Patient Studies Lab Studies: Microbiology Studies 05/02/18 01:08 Blood Culture - Final Blood-Venous NO GROWTH AFTER 5 DAYS Gram Stain - Final TEST NOT PERFORMED 05/02/18 01:07 Blood Culture - Final Blood-Venous NO GROWTH AFTER 5 DAYS Gram Stain - Final TEST NOT PERFORMED Lab Studies 05/07/18 05/07/18 05/07/18 Range/Units 06:37 06:14 06:14 WBC 16.1 H (4.8-10.8) K/uL RBC 4.82 (3.80-5.20) Mil/uL Hgb 12.5 (11.0-16.0) g/dL Hct 38.0 (34.0-47.0) % MCV 79.0 L (81.0-99.0) fL MCH 26.0 L (27.0-31.0) pg MCHC 32.9 L (33.0-37.0) g/dL RDW 15.6 H (11.5-14.5) % Plt Count 171 (130-400) K/uL MPV 11.2 (7.2-11.7) fL Neut % (Auto) 85.5 H (50.0-75.0) % Lymph % (Auto) 9.4 L (20.0-40.0) % Bryan % (Auto) 3.7 (0.0-10.0) % Eos % (Auto) 0.9 (0.0-4.0) % Baso % (Auto) 0.5 (0.0-2.0) % Neut # (Auto) 13.8 H (1.8-7.0) K/uL Lymph # (Auto) 1.5 (1.0-4.3) K/uL Bryan # (Auto) 0.6 (0.0-0.8) K/uL Eos # (Auto) 0.1 (0.0-0.7) K/uL Baso # (Auto) 0.1 (0.0-0.2) K/uL Neutrophils % (Manual) 85 H (50-75) % Lymphocytes % (Manual) 13 L (20-40) % Monocytes % (Manual) 1 (0-10) % Eosinophils % (Manual) 1 (0-4) % Platelet Estimate Normal (NORMAL) Polychromasia Slight Hypochromasia (manual) Slight Anisocytosis (manual) Slight Puncture Site R rad pCO2 29 L pO2 144 H HCO3 25.8 ABG pH 7.51 H ABG Total CO2 24.0 ABG O2 Saturation 99.4 H ABG Base Excess 1.0 Erik Test Pos ABG Potassium 3.8 A-a O2 Difference 105.0 Respiratory Index 0.7 Sodium 149.0 H 145 Chloride 118.0 H 114 H Glucose 275 H Lactate 2.0 Liter Flow Vent Mode A/c pc Mechanical Rate 18 Spontaneous Rate FiO2 40.0 Tidal Volume PEEP 5 Pressure Support CPAP Inspiratory BiPAP Expiratory BiPAP Blood Gas Comments Crit Value Called To Crit Value Called By Crit Value Read Back Blood Gas Notified Time Potassium 4.7 (3.6-5.2) mmol/L Carbon Dioxide 23 (22-30) mmol/L Anion Gap 13 (10-20) BUN 22 H (7-17) mg/dL Creatinine 0.8 (0.7-1.2) mg/dL Est GFR ( Amer) > 60 Est GFR (Non-Af Amer) > 60 POC Glucose (mg/dL) (65-110) mg/dL Random Glucose 249 H (65-105) mg/dL Calcium 8.0 L (8.6-10.4) mg/dl Phosphorus 3.0 (2.5-4.5) mg/dL Magnesium 2.7 H (1.6-2.3) mg/dL Total Bilirubin 1.0 (0.2-1.3) mg/dL AST 55 H (14-36) U/L ALT 98 H (9-52) U/L Alkaline Phosphatase 167 H D (38-126) U/L Total Protein 6.3 (6.3-8.3) g/dL Albumin 3.1 L D (3.5-5.0) g/dL Globulin 3.2 (2.2-3.9) gm/dL Albumin/Globulin Ratio 1.0 (1.0-2.1) Arterial Blood Potassium 3.8 Urine Color (YELLOW) Urine Clarity (Clear) Urine pH (5.0-8.0) Ur Specific [place] (1.003-1.030) Urine Protein (NEGATIVE) mg/dL Urine Glucose (UA) (Normal) mg/dL Urine Ketones (NEGATIVE) mg/dL Urine Blood (NEGATIVE) Urine Nitrate (NEGATIVE) Urine Bilirubin (NEGATIVE) Urine Urobilinogen (0.2-1.0) mg/dL Ur Leukocyte Esterase (Negative) Devin/uL Urine WBC (Auto) (0-5) /hpf Urine RBC (Auto) (0-3) /hpf Ur Squamous Epith Cells (0-5) /hpf Urine Bacteria (<OCC) 05/07/18 05/07/18 05/06/18 Range/Units 05:56 05:39 23:27 WBC (4.8-10.8) K/uL RBC (3.80-5.20) Mil/uL Hgb (11.0-16.0) g/dL Hct (34.0-47.0) % MCV (81.0-99.0) fL MCH (27.0-31.0) pg MCHC (33.0-37.0) g/dL RDW (11.5-14.5) % Plt Count (130-400) K/uL MPV (7.2-11.7) fL Neut % (Auto) (50.0-75.0) % Lymph % (Auto) (20.0-40.0) % Bryan % (Auto) (0.0-10.0) % Eos % (Auto) (0.0-4.0) % Baso % (Auto) (0.0-2.0) % Neut # (Auto) (1.8-7.0) K/uL Lymph # (Auto) (1.0-4.3) K/uL Bryan # (Auto) (0.0-0.8) K/uL Eos # (Auto) (0.0-0.7) K/uL Baso # (Auto) (0.0-0.2) K/uL Neutrophils % (Manual) (50-75) % Lymphocytes % (Manual) (20-40) % Monocytes % (Manual) (0-10) % Eosinophils % (Manual) (0-4) % Platelet Estimate (NORMAL) Polychromasia Hypochromasia (manual) Anisocytosis (manual) Puncture Site Cancelled pCO2 Cancelled pO2 Cancelled HCO3 Cancelled ABG pH Cancelled ABG Total CO2 Cancelled ABG O2 Saturation Cancelled ABG Base Excess Cancelled Erik Test Cancelled ABG Potassium Cancelled A-a O2 Difference Cancelled Respiratory Index Cancelled Sodium Cancelled Chloride Cancelled Glucose Cancelled Lactate Cancelled Liter Flow Cancelled Vent Mode Cancelled Mechanical Rate Cancelled Spontaneous Rate Cancelled FiO2 Cancelled Tidal Volume Cancelled PEEP Cancelled Pressure Support Cancelled CPAP Cancelled Inspiratory BiPAP Cancelled Expiratory BiPAP Cancelled Blood Gas Comments Cancelled Crit Value Called To Cancelled Crit Value Called By Cancelled Crit Value Read Back Cancelled Blood Gas Notified Time Cancelled Potassium (3.6-5.2) mmol/L Carbon Dioxide (22-30) mmol/L Anion Gap (10-20) BUN (7-17) mg/dL Creatinine (0.7-1.2) mg/dL Est GFR ( Amer) Est GFR (Non-Af Amer) POC Glucose (mg/dL) 274 H 221 H (65-110) mg/dL Random Glucose (65-105) mg/dL Calcium (8.6-10.4) mg/dl Phosphorus (2.5-4.5) mg/dL Magnesium (1.6-2.3) mg/dL Total Bilirubin (0.2-1.3) mg/dL AST (14-36) U/L ALT (9-52) U/L Alkaline Phosphatase (38-126) U/L Total Protein (6.3-8.3) g/dL Albumin (3.5-5.0) g/dL Globulin (2.2-3.9) gm/dL Albumin/Globulin Ratio (1.0-2.1) Arterial Blood Potassium Cancelled Urine Color (YELLOW) Urine Clarity (Clear) Urine pH (5.0-8.0) Ur Specific [place] (1.003-1.030) Urine Protein (NEGATIVE) mg/dL Urine Glucose (UA) (Normal) mg/dL Urine Ketones (NEGATIVE) mg/dL Urine Blood (NEGATIVE) Urine Nitrate (NEGATIVE) Urine Bilirubin (NEGATIVE) Urine Urobilinogen (0.2-1.0) mg/dL Ur Leukocyte Esterase (Negative) Devin/uL Urine WBC (Auto) (0-5) /hpf Urine RBC (Auto) (0-3) /hpf Ur Squamous Epith Cells (0-5) /hpf Urine Bacteria (<OCC) 05/06/18 05/06/18 05/06/18 Range/Units 21:34 18:03 11:07 WBC (4.8-10.8) K/uL RBC (3.80-5.20) Mil/uL Hgb (11.0-16.0) g/dL Hct (34.0-47.0) % MCV (81.0-99.0) fL MCH (27.0-31.0) pg MCHC (33.0-37.0) g/dL RDW (11.5-14.5) % Plt Count (130-400) K/uL MPV (7.2-11.7) fL Neut % (Auto) (50.0-75.0) % Lymph % (Auto) (20.0-40.0) % Bryan % (Auto) (0.0-10.0) % Eos % (Auto) (0.0-4.0) % Baso % (Auto) (0.0-2.0) % Neut # (Auto) (1.8-7.0) K/uL Lymph # (Auto) (1.0-4.3) K/uL Bryan # (Auto) (0.0-0.8) K/uL Eos # (Auto) (0.0-0.7) K/uL Baso # (Auto) (0.0-0.2) K/uL Neutrophils % (Manual) (50-75) % Lymphocytes % (Manual) (20-40) % Monocytes % (Manual) (0-10) % Eosinophils % (Manual) (0-4) % Platelet Estimate (NORMAL) Polychromasia Hypochromasia (manual) Anisocytosis (manual) Puncture Site pCO2 pO2 HCO3 ABG pH ABG Total CO2 ABG O2 Saturation ABG Base Excess Erik Test ABG Potassium A-a O2 Difference Respiratory Index Sodium Chloride Glucose Lactate Liter Flow Vent Mode Mechanical Rate Spontaneous Rate FiO2 Tidal Volume PEEP Pressure Support CPAP Inspiratory BiPAP Expiratory BiPAP Blood Gas Comments Crit Value Called To Crit Value Called By Crit Value Read Back Blood Gas Notified Time Potassium (3.6-5.2) mmol/L Carbon Dioxide (22-30) mmol/L Anion Gap (10-20) BUN (7-17) mg/dL Creatinine (0.7-1.2) mg/dL Est GFR ( Amer) Est GFR (Non-Af Amer) POC Glucose (mg/dL) 220 H 185 H (65-110) mg/dL Random Glucose (65-105) mg/dL Calcium (8.6-10.4) mg/dl Phosphorus (2.5-4.5) mg/dL Magnesium (1.6-2.3) mg/dL Total Bilirubin (0.2-1.3) mg/dL AST (14-36) U/L ALT (9-52) U/L Alkaline Phosphatase (38-126) U/L Total Protein (6.3-8.3) g/dL Albumin (3.5-5.0) g/dL Globulin (2.2-3.9) gm/dL Albumin/Globulin Ratio (1.0-2.1) Arterial Blood Potassium Urine Color Straw (YELLOW) Urine Clarity Clear (Clear) Urine pH 7.0 (5.0-8.0) Ur Specific [place] 1.011 (1.003-1.030) Urine Protein Negative (NEGATIVE) mg/dL Urine Glucose (UA) 3+ H (Normal) mg/dL Urine Ketones Trace (NEGATIVE) mg/dL Urine Blood 2+ H (NEGATIVE) Urine Nitrate Negative (NEGATIVE) Urine Bilirubin Negative (NEGATIVE) Urine Urobilinogen Normal (0.2-1.0) mg/dL Ur Leukocyte Esterase Trace (Negative) Devin/uL Urine WBC (Auto) 7 H (0-5) /hpf Urine RBC (Auto) 10 H (0-3) /hpf Ur Squamous Epith Cells < 1 (0-5) /hpf Urine Bacteria Rare (<OCC) Laboratory Results - last 24 hr 05/06/18 05/06/18 05/06/18 11:07 18:03 21:34 WBC RBC Hgb Hct MCV MCH MCHC RDW Plt Count MPV Neut % (Auto) Lymph % (Auto) Bryan % (Auto) Eos % (Auto) Baso % (Auto) Neut # (Auto) Lymph # (Auto) Bryan # (Auto) Eos # (Auto) Baso # (Auto) Neutrophils % (Manual) Lymphocytes % (Manual) Monocytes % (Manual) Eosinophils % (Manual) Platelet Estimate Polychromasia Hypochromasia (manual) Anisocytosis (manual) Puncture Site pCO2 pO2 HCO3 ABG pH ABG Total CO2 ABG O2 Saturation ABG Base Excess Erik Test ABG Potassium A-a O2 Difference Respiratory Index Sodium Chloride Glucose Lactate Liter Flow Vent Mode Mechanical Rate Spontaneous Rate FiO2 Tidal Volume PEEP Pressure Support CPAP Inspiratory BiPAP Expiratory BiPAP Blood Gas Comments Crit Value Called To Crit Value Called By Crit Value Read Back Blood Gas Notified Time Potassium Carbon Dioxide Anion Gap BUN Creatinine Est GFR ( Amer) Est GFR (Non-Af Amer) POC Glucose (mg/dL) 185 H 220 H Random Glucose Calcium Phosphorus Magnesium Total Bilirubin AST ALT Alkaline Phosphatase Total Protein Albumin Globulin Albumin/Globulin Ratio Arterial Blood Potassium Urine Color Straw Urine Clarity Clear Urine pH 7.0 Ur Specific [place] 1.011 Urine Protein Negative Urine Glucose (UA) 3+ H Urine Ketones Trace Urine Blood 2+ H Urine Nitrate Negative Urine Bilirubin Negative Urine Urobilinogen Normal Ur Leukocyte Esterase Trace Urine WBC (Auto) 7 H Urine RBC (Auto) 10 H Ur Squamous Epith Cells < 1 Urine Bacteria Rare 05/06/18 05/07/18 05/07/18 23:27 05:39 05:56 WBC RBC Hgb Hct MCV MCH MCHC RDW Plt Count MPV Neut % (Auto) Lymph % (Auto) Bryan % (Auto) Eos % (Auto) Baso % (Auto) Neut # (Auto) Lymph # (Auto) Bryan # (Auto) Eos # (Auto) Baso # (Auto) Neutrophils % (Manual) Lymphocytes % (Manual) Monocytes % (Manual) Eosinophils % (Manual) Platelet Estimate Polychromasia Hypochromasia (manual) Anisocytosis (manual) Puncture Site Cancelled pCO2 Cancelled pO2 Cancelled HCO3 Cancelled ABG pH Cancelled ABG Total CO2 Cancelled ABG O2 Saturation Cancelled ABG Base Excess Cancelled Erik Test Cancelled ABG Potassium Cancelled A-a O2 Difference Cancelled Respiratory Index Cancelled Sodium Cancelled Chloride Cancelled Glucose Cancelled Lactate Cancelled Liter Flow Cancelled Vent Mode Cancelled Mechanical Rate Cancelled Spontaneous Rate Cancelled FiO2 Cancelled Tidal Volume Cancelled PEEP Cancelled Pressure Support Cancelled CPAP Cancelled Inspiratory BiPAP Cancelled Expiratory BiPAP Cancelled Blood Gas Comments Cancelled Crit Value Called To Cancelled Crit Value Called By Cancelled Crit Value Read Back Cancelled Blood Gas Notified Time Cancelled Potassium Carbon Dioxide Anion Gap BUN Creatinine Est GFR ( Amer) Est GFR (Non-Af Amer) POC Glucose (mg/dL) 221 H 274 H Random Glucose Calcium Phosphorus Magnesium Total Bilirubin AST ALT Alkaline Phosphatase Total Protein Albumin Globulin Albumin/Globulin Ratio Arterial Blood Potassium Cancelled Urine Color Urine Clarity Urine pH Ur Specific [place] Urine Protein Urine Glucose (UA) Urine Ketones Urine Blood Urine Nitrate Urine Bilirubin Urine Urobilinogen Ur Leukocyte Esterase Urine WBC (Auto) Urine RBC (Auto) Ur Squamous Epith Cells Urine Bacteria 05/07/18 05/07/18 05/07/18 06:14 06:14 06:37 WBC 16.1 H RBC 4.82 Hgb 12.5 Hct 38.0 MCV 79.0 L MCH 26.0 L MCHC 32.9 L RDW 15.6 H Plt Count 171 MPV 11.2 Neut % (Auto) 85.5 H Lymph % (Auto) 9.4 L Bryan % (Auto) 3.7 Eos % (Auto) 0.9 Baso % (Auto) 0.5 Neut # (Auto) 13.8 H Lymph # (Auto) 1.5 Bryan # (Auto) 0.6 Eos # (Auto) 0.1 Baso # (Auto) 0.1 Neutrophils % (Manual) 85 H Lymphocytes % (Manual) 13 L Monocytes % (Manual) 1 Eosinophils % (Manual) 1 Platelet Estimate Normal Polychromasia Slight Hypochromasia (manual) Slight Anisocytosis (manual) Slight Puncture Site R rad pCO2 29 L pO2 144 H HCO3 25.8 ABG pH 7.51 H ABG Total CO2 24.0 ABG O2 Saturation 99.4 H ABG Base Excess 1.0 Erik Test Pos ABG Potassium 3.8 A-a O2 Difference 105.0 Respiratory Index 0.7 Sodium 145 149.0 H Chloride 114 H 118.0 H Glucose 275 H Lactate 2.0 Liter Flow Vent Mode A/c pc Mechanical Rate 18 Spontaneous Rate FiO2 40.0 Tidal Volume PEEP 5 Pressure Support CPAP Inspiratory BiPAP Expiratory BiPAP Blood Gas Comments Crit Value Called To Crit Value Called By Crit Value Read Back Blood Gas Notified Time Potassium 4.7 Carbon Dioxide 23 Anion Gap 13 BUN 22 H Creatinine 0.8 Est GFR ( Amer) > 60 Est GFR (Non-Af Amer) > 60 POC Glucose (mg/dL) Random Glucose 249 H Calcium 8.0 L Phosphorus 3.0 Magnesium 2.7 H Total Bilirubin 1.0 AST 55 H ALT 98 H Alkaline Phosphatase 167 H D Total Protein 6.3 Albumin 3.1 L D Globulin 3.2 Albumin/Globulin Ratio 1.0 Arterial Blood Potassium 3.8 Urine Color Urine Clarity Urine pH Ur Specific [place] Urine Protein Urine Glucose (UA) Urine Ketones Urine Blood Urine Nitrate Urine Bilirubin Urine Urobilinogen Ur Leukocyte Esterase Urine WBC (Auto) Urine RBC (Auto) Ur Squamous Epith Cells Urine Bacteria Fingerstick Blood Sugar Results: 220 Assessment/Plan - Assessment and Plan (Free Text) Assessment: Assessment: This is a 52 year old female with probable past medical history of diabetes mellitus type 2 who was found unresponsive by on 05/01 (reportedly). EMS was called and patient was resuscitated and subsequently intubated on the field and brought to the ED. While in the ED: CODE STROKE was called, patient was subsequently admitted to ICU for close monitoring and evaluation for anoxic brain injury. Patient was noted on physical exam to have ring monge suggestive of suicidal attempt by hanging. [employer] is involved and state high likelihood of suicidal attempt. Patient is pending tracheostomy and PEG placement. Neuro: Anoxic Brain Injury Possibly 2/2 Asphyxiation Possibly 2/2 Suicidal Attempt Via Hanging - Maintain bed elevation at 30 degrees - DDAVP 1mcg IVP once administered - [employer] involved and on case - Dr. Duff consulted: recommendations appreciated * Poor prognosis, but with some improvement in the exam * From 05/04 note: continue current management. * MRI brain: Findings most compatible with subacute favored over acute cerebral hypoxic insult with minimal involvement of the lower haris and the cerebellar hemispsheres as well. Blood flow in the basilar and bilateral cavernous internal carotid artery segments appears adequately maintained. - EEG obtained: showed diffuse encephalopathy with burst suppression - CT without contrast 05/01 official report: * Negative CT of the brain. Incidental ethmoid sinusitis. - Repeat CT without contrast 05/03 official report: * Stable poor cortical medullary differentiation with scattered edematous changes. No significant interval changes - Repeat CT without contrast 05/04 official report: * Little interval change in poor corticomedullary differentiation an indistinct appearance of the basal ganglia compatible with mild cerebral edema * Abnormal appearance of bilateral thalamocapsular regions concerning for hypoxic anoxic insult. - Patient was transferred to [facility] for MRI brain without contrast 05/05: * cortical ischemia conssistent with anoxic pattern; ischemia to the midbrain consistent with CT findings. - Continue neuro checks - Monitor CV: - Rule out ACS: serial trops Q8 negative x3 - Original EKG did not meet code heart criteria. - 3rd Trop elevated to 5.06 05/02 - pro BNP 35 - Heparin SC - ECHO official report: * LV systolic function is normal * EF > 70% * Transmitral Doppler flow pattern is Grade I- abnormal relaxation pattern - Tachycardia observed on telemetry - Nicardipine 5 mg/hr drip began this AM - Cardiology consulted; Dr. Gay; recommendations appreciated * Amlodipine 10 mg PO, Vasotec 1.25 mg IV and Metoprolol 5 mg IV given overnight. Will likely increase daily B bartolo - ASA, Statin, B-bartolo medical therapy - Continue to monitor - Monitor Pulm: Acute Respiratory Failure - on mechanical ventilation: decreased PEEP to 3 - Continue to titrate FiO2 to keep SpO2 > 92 - Continue bronchodilators - Monitor - CT chest abdomen pelvis without contrast official report: * Minimal bilateral pleural effusions * No fracture * No pneumothorax * Multifocal infiltrates at the bilateral upper and lower lobes as well as the right middle lobe in a pattern that could reflect aspiration given dependent subsegment affected Renal: Acute Renal Failure, improving - Consistent with ATN 2/2 ischemic vs septic - [facility] consulted, recommendations appreciated * Agree with continue IVF as NS instead on 1/2 NS as has cerebral edema * Prefer to keep serum Na on higher side. * Once cerebral edema improves; switch to 0.45% saline. - START: 0.45% saline started @200mls/hr - Good urine output - No need for dialysis at this time Metabolic Acidosis - Likely 2/2 elevated lactic acid and/or DKA and/or ETOH consumption - Glycemic control - Continue to trend lactic acid - Monitor - Continue Thiamine 100 mg IV daily GI: - No acute issues - NG tube: tube feeds (Glucerna) starting at 25 - Pepcid for Ppx - CT chest abdomen pelvis without contrast official report: * Findings suspicious for segmental colitis involving separate vascular distribution of the colon. Limited abdominal and pelvic ascites noted. No free intra peritoneal gas collection appreciable Endo: Likely history of Diabetes Mellitus Type 2: uncontrolled - ISS: moderate - Hypoglycemic protocol - Accu checks Q6 - NPO diet - IVF - TSH - HgbA1c ID: Sepsis: suspect aspiration pneumonia - ID consulted (Dr. Mcgill); recommendations appreciated * Vanco - contiune * Zosyn - discontinued * Start Meropenem - Sommers culture - Serial Lactic Acid; improving - Chest X-Ray 05/03: * Improved aeration in the right lower lobe with persistent dense consolidation and presumable patchy pneumonia in the left lower lobe. * Stable position of support tubes. Dispo: Patient is pending tracheostomy and PEG placement (General Surgery consulted; recommendations appreciated) Consults: General Surgery (Dr. Kerns); Cardio (Dr. Gay); Neurohospitalist; Palliative care (Yesenia); Nephro (Dr. Samuels); ID (Dr. Mcgill); social work professor; wound care; Ppx: DVT: SCD & heparin, GI: protonix Code status: FULL CODE (unknown) Next of kin: Prognosis: Very Poor Patient seen and case discussed in detail with Dr. Luis F Plasencia PGY1 <George Kerns - Last Filed: 05/07/18 12:55> CCU Objective - Vital Signs / Intake & Output Vital Signs (Last 4 hours): Vital Signs Temp Pulse Resp BP Pulse Ox 05/07/18 12:00 98.5 F 79 22 99 05/07/18 11:58 80 22 150/73 99 05/07/18 11:40 78 23 99 05/07/18 11:28 73 19 162/87 H 98 05/07/18 11:20 78 20 99 05/07/18 11:00 75 21 99 05/07/18 10:57 74 18 155/94 H 99 05/07/18 10:52 157/87 H 05/07/18 10:40 75 15 100 05/07/18 10:28 76 20 157/87 H 100 05/07/18 10:20 77 20 100 05/07/18 10:00 89 21 99 05/07/18 09:57 92 H 17 164/95 H 99 05/07/18 09:40 78 23 100 05/07/18 09:28 83 20 157/86 H 99 05/07/18 09:20 80 18 99 05/07/18 09:00 77 22 99 05/07/18 08:57 77 23 151/85 H 99 Intake and Output (Last 8hrs): Intake & Output 05/06/18 05/07/18 05/07/18 22:59 06:59 14:59 Intake Total 675 560 600 Output Total 1600 800 Balance -925 -240 600 Weight 146 lb 9.718 oz Intake: Intake, IV Amount 400 500 300 Right PICC 0 Right Proximal Port PICC 400 500 300 Oral 60 Tube Feeding 275 300 Output: Urine 1600 800 Straight 1000 Urethral (Alvarado) 600 800 Stool 0 - Medications Active Medications: Active Medications Generic Name Dose Route Start Last Admin Trade Name Freq PRN Reason Stop Dose Admin Albuterol/Ipratropium 3 ml 05/02/18 04:00 05/07/18 11:34 Duoneb 3 Mg/0.5 Mg (3 Ml) Ud INH 3 ml RQ4 BETH Administration Amlodipine Besylate 10 mg 05/07/18 10:00 Norvasc PO DAILY BETH Aspirin 81 mg 05/02/18 10:00 05/07/18 10:51 Ecotrin PO 81 mg DAILY BETH Administration Bisacodyl 10 mg 05/07/18 08:19 Dulcolax VT TID PRN Constipation Dextrose 0 ml 05/03/18 12:05 Dextrose 50% Inj IV STAT PRN Hypoglycemia Protocol Protocol Dextrose 15 gm 05/03/18 12:05 Glutose 15 PO ONCE PRN Hypoglycemia Protocol Protocol Docusate Sodium 100 mg 05/07/18 10:00 05/07/18 10:53 Colace NG Not Given TID BETH Glucagon 1 mg 05/03/18 12:05 Glucagen Diagnostic Kit IM STAT PRN Hypoglycemia Protocol Protocol Heparin Sodium (Porcine) 5,000 units 05/03/18 14:00 05/07/18 06:29 Heparin SC 5,000 units Q8 BETH Administration Hydralazine HCl 25 mg 05/06/18 18:06 05/06/18 22:53 Apresoline PO 25 mg QID BETH Administration Levetiracetam 1,000 mg/ Sodium 110 mls @ 420 mls/hr 05/02/18 11:30 05/07/18 10:50 Chloride IVPB 420 mls/hr Q12H BETH Administration Vancomycin HCl 1,000 mg/ 200 mls @ 133.333 mls/hr 05/02/18 19:00 05/07/18 06:28 Sodium Chloride IVPB 133.333 mls/hr Q12H BETH Administration Protocol Meropenem 1 gm/ Sodium 100 mls @ 100 mls/hr 05/02/18 18:30 05/07/18 10:50 Chloride IVPB 100 mls/hr Q8H BETH Administration Protocol Dextrose 1,000 mls @ 0 mls/hr 05/05/18 13:57 Dextrose 5% In Water 1000 Ml IV .Q0M PRN Hypoglycemia Protocol Protocol Per Protocol Metronidazole 500 mg in 100 mls @ 100 mls/hr 05/06/18 10:00 05/07/18 10:50 Flagyl IVPB 100 mls/hr Q8H BETH Administration Protocol Ibuprofen 200 mg 05/05/18 17:37 05/05/18 20:00 Motrin Oral Susp PO 200 mg Q6H PRN Administration Fever >100.4 F Insulin Aspart 0 unit 05/03/18 18:00 05/07/18 06:29 Novolog SC 4 units Q6 BETH Administration Protocol Insulin Glargine 10 unit 05/06/18 10:00 05/07/18 10:50 Lantus SC 10 u DAILY BETH Administration Labetalol HCl 10 mg 05/06/18 17:31 05/07/18 06:29 Trandate IVP 10 mg Q4H PRN Administration Systolic Blood Pressure Lactobacillus Acidophilus 1 cap 05/07/18 10:00 05/07/18 10:51 Bacid Acidophilus PO 1 cap BID BETH Administration Metoprolol Tartrate 75 mg 05/06/18 18:04 05/07/18 10:52 Lopressor PO 75 mg BID BETH Administration Pantoprazole Sodium 40 mg 05/06/18 10:00 05/07/18 10:50 Protonix Susp NG 40 mg DAILY BETH Administration Rosuvastatin Calcium 5 mg 05/03/18 22:00 05/06/18 22:53 Crestor PO 5 mg HS BETH Administration Sennosides 8.6 mg 05/07/18 10:00 05/07/18 10:53 Senokot Tab PO Not Given DAILY BETH Thiamine HCl 100 mg 05/03/18 10:45 05/07/18 10:51 Vitamin B1 Inj IV 100 mg DAILY BETH Administration - Patient Studies Lab Studies: Microbiology Studies 05/02/18 01:08 Blood Culture - Final Blood-Venous NO GROWTH AFTER 5 DAYS Gram Stain - Final TEST NOT PERFORMED 05/02/18 01:07 Blood Culture - Final Blood-Venous NO GROWTH AFTER 5 DAYS Gram Stain - Final TEST NOT PERFORMED Lab Studies 05/07/18 05/07/18 05/07/18 Range/Units 11:52 06:37 06:14 WBC (4.8-10.8) K/uL RBC (3.80-5.20) Mil/uL Hgb (11.0-16.0) g/dL Hct (34.0-47.0) % MCV (81.0-99.0) fL MCH (27.0-31.0) pg MCHC (33.0-37.0) g/dL RDW (11.5-14.5) % Plt Count (130-400) K/uL MPV (7.2-11.7) fL Neut % (Auto) (50.0-75.0) % Lymph % (Auto) (20.0-40.0) % Bryan % (Auto) (0.0-10.0) % Eos % (Auto) (0.0-4.0) % Baso % (Auto) (0.0-2.0) % Neut # (Auto) (1.8-7.0) K/uL Lymph # (Auto) (1.0-4.3) K/uL Bryan # (Auto) (0.0-0.8) K/uL Eos # (Auto) (0.0-0.7) K/uL Baso # (Auto) (0.0-0.2) K/uL Neutrophils % (Manual) (50-75) % Lymphocytes % (Manual) (20-40) % Monocytes % (Manual) (0-10) % Eosinophils % (Manual) (0-4) % Platelet Estimate (NORMAL) Polychromasia Hypochromasia (manual) Anisocytosis (manual) Puncture Site R rad pCO2 29 L pO2 144 H HCO3 25.8 ABG pH 7.51 H ABG Total CO2 24.0 ABG O2 Saturation 99.4 H ABG Base Excess 1.0 Erik Test Pos ABG Potassium 3.8 A-a O2 Difference 105.0 Respiratory Index 0.7 Sodium 149.0 H 145 Chloride 118.0 H 114 H Glucose 275 H Lactate 2.0 Liter Flow Vent Mode A/c pc Mechanical Rate 18 Spontaneous Rate FiO2 40.0 Tidal Volume PEEP 5 Pressure Support CPAP Inspiratory BiPAP Expiratory BiPAP Blood Gas Comments Crit Value Called To Crit Value Called By Crit Value Read Back Blood Gas Notified Time Potassium 4.7 (3.6-5.2) mmol/L Carbon Dioxide 23 (22-30) mmol/L Anion Gap 13 (10-20) BUN 22 H (7-17) mg/dL Creatinine 0.8 (0.7-1.2) mg/dL Est GFR ( Amer) > 60 Est GFR (Non-Af Amer) > 60 POC Glucose (mg/dL) 254 H (65-110) mg/dL Random Glucose 249 H (65-105) mg/dL Calcium 8.0 L (8.6-10.4) mg/dl Phosphorus 3.0 (2.5-4.5) mg/dL Magnesium 2.7 H (1.6-2.3) mg/dL Total Bilirubin 1.0 (0.2-1.3) mg/dL AST 55 H (14-36) U/L ALT 98 H (9-52) U/L Alkaline Phosphatase 167 H D (38-126) U/L Total Protein 6.3 (6.3-8.3) g/dL Albumin 3.1 L D (3.5-5.0) g/dL Globulin 3.2 (2.2-3.9) gm/dL Albumin/Globulin Ratio 1.0 (1.0-2.1) Arterial Blood Potassium 3.8 Urine Color (YELLOW) Urine Clarity (Clear) Urine pH (5.0-8.0) Ur Specific [place] (1.003-1.030) Urine Protein (NEGATIVE) mg/dL Urine Glucose (UA) (Normal) mg/dL Urine Ketones (NEGATIVE) mg/dL Urine Blood (NEGATIVE) Urine Nitrate (NEGATIVE) Urine Bilirubin (NEGATIVE) Urine Urobilinogen (0.2-1.0) mg/dL Ur Leukocyte Esterase (Negative) Devin/uL Urine WBC (Auto) (0-5) /hpf Urine RBC (Auto) (0-3) /hpf Ur Squamous Epith Cells (0-5) /hpf Urine Bacteria (<OCC) 05/07/18 05/07/18 05/07/18 Range/Units 06:14 05:56 05:39 WBC 16.1 H (4.8-10.8) K/uL RBC 4.82 (3.80-5.20) Mil/uL Hgb 12.5 (11.0-16.0) g/dL Hct 38.0 (34.0-47.0) % MCV 79.0 L (81.0-99.0) fL MCH 26.0 L (27.0-31.0) pg MCHC 32.9 L (33.0-37.0) g/dL RDW 15.6 H (11.5-14.5) % Plt Count 171 (130-400) K/uL MPV 11.2 (7.2-11.7) fL Neut % (Auto) 85.5 H (50.0-75.0) % Lymph % (Auto) 9.4 L (20.0-40.0) % Bryan % (Auto) 3.7 (0.0-10.0) % Eos % (Auto) 0.9 (0.0-4.0) % Baso % (Auto) 0.5 (0.0-2.0) % Neut # (Auto) 13.8 H (1.8-7.0) K/uL Lymph # (Auto) 1.5 (1.0-4.3) K/uL Bryan # (Auto) 0.6 (0.0-0.8) K/uL Eos # (Auto) 0.1 (0.0-0.7) K/uL Baso # (Auto) 0.1 (0.0-0.2) K/uL Neutrophils % (Manual) 85 H (50-75) % Lymphocytes % (Manual) 13 L (20-40) % Monocytes % (Manual) 1 (0-10) % Eosinophils % (Manual) 1 (0-4) % Platelet Estimate Normal (NORMAL) Polychromasia Slight Hypochromasia (manual) Slight Anisocytosis (manual) Slight Puncture Site Cancelled pCO2 Cancelled pO2 Cancelled HCO3 Cancelled ABG pH Cancelled ABG Total CO2 Cancelled ABG O2 Saturation Cancelled ABG Base Excess Cancelled Erik Test Cancelled ABG Potassium Cancelled A-a O2 Difference Cancelled Respiratory Index Cancelled Sodium Cancelled Chloride Cancelled Glucose Cancelled Lactate Cancelled Liter Flow Cancelled Vent Mode Cancelled Mechanical Rate Cancelled Spontaneous Rate Cancelled FiO2 Cancelled Tidal Volume Cancelled PEEP Cancelled Pressure Support Cancelled CPAP Cancelled Inspiratory BiPAP Cancelled Expiratory BiPAP Cancelled Blood Gas Comments Cancelled Crit Value Called To Cancelled Crit Value Called By Cancelled Crit Value Read Back Cancelled Blood Gas Notified Time Cancelled Potassium (3.6-5.2) mmol/L Carbon Dioxide (22-30) mmol/L Anion Gap (10-20) BUN (7-17) mg/dL Creatinine (0.7-1.2) mg/dL Est GFR ( Amer) Est GFR (Non-Af Amer) POC Glucose (mg/dL) 274 H (65-110) mg/dL Random Glucose (65-105) mg/dL Calcium (8.6-10.4) mg/dl Phosphorus (2.5-4.5) mg/dL Magnesium (1.6-2.3) mg/dL Total Bilirubin (0.2-1.3) mg/dL AST (14-36) U/L ALT (9-52) U/L Alkaline Phosphatase (38-126) U/L Total Protein (6.3-8.3) g/dL Albumin (3.5-5.0) g/dL Globulin (2.2-3.9) gm/dL Albumin/Globulin Ratio (1.0-2.1) Arterial Blood Potassium Cancelled Urine Color (YELLOW) Urine Clarity (Clear) Urine pH (5.0-8.0) Ur Specific [place] (1.003-1.030) Urine Protein (NEGATIVE) mg/dL Urine Glucose (UA) (Normal) mg/dL Urine Ketones (NEGATIVE) mg/dL Urine Blood (NEGATIVE) Urine Nitrate (NEGATIVE) Urine Bilirubin (NEGATIVE) Urine Urobilinogen (0.2-1.0) mg/dL Ur Leukocyte Esterase (Negative) Devin/uL Urine WBC (Auto) (0-5) /hpf Urine RBC (Auto) (0-3) /hpf Ur Squamous Epith Cells (0-5) /hpf Urine Bacteria (<OCC) 05/06/18 05/06/18 05/06/18 Range/Units 23:27 21:34 18:03 WBC (4.8-10.8) K/uL RBC (3.80-5.20) Mil/uL Hgb (11.0-16.0) g/dL Hct (34.0-47.0) % MCV (81.0-99.0) fL MCH (27.0-31.0) pg MCHC (33.0-37.0) g/dL RDW (11.5-14.5) % Plt Count (130-400) K/uL MPV (7.2-11.7) fL Neut % (Auto) (50.0-75.0) % Lymph % (Auto) (20.0-40.0) % Bryan % (Auto) (0.0-10.0) % Eos % (Auto) (0.0-4.0) % Baso % (Auto) (0.0-2.0) % Neut # (Auto) (1.8-7.0) K/uL Lymph # (Auto) (1.0-4.3) K/uL Bryan # (Auto) (0.0-0.8) K/uL Eos # (Auto) (0.0-0.7) K/uL Baso # (Auto) (0.0-0.2) K/uL Neutrophils % (Manual) (50-75) % Lymphocytes % (Manual) (20-40) % Monocytes % (Manual) (0-10) % Eosinophils % (Manual) (0-4) % Platelet Estimate (NORMAL) Polychromasia Hypochromasia (manual) Anisocytosis (manual) Puncture Site pCO2 pO2 HCO3 ABG pH ABG Total CO2 ABG O2 Saturation ABG Base Excess Erik Test ABG Potassium A-a O2 Difference Respiratory Index Sodium Chloride Glucose Lactate Liter Flow Vent Mode Mechanical Rate Spontaneous Rate FiO2 Tidal Volume PEEP Pressure Support CPAP Inspiratory BiPAP Expiratory BiPAP Blood Gas Comments Crit Value Called To Crit Value Called By Crit Value Read Back Blood Gas Notified Time Potassium (3.6-5.2) mmol/L Carbon Dioxide (22-30) mmol/L Anion Gap (10-20) BUN (7-17) mg/dL Creatinine (0.7-1.2) mg/dL Est GFR ( Amer) Est GFR (Non-Af Amer) POC Glucose (mg/dL) 221 H 220 H (65-110) mg/dL Random Glucose (65-105) mg/dL Calcium (8.6-10.4) mg/dl Phosphorus (2.5-4.5) mg/dL Magnesium (1.6-2.3) mg/dL Total Bilirubin (0.2-1.3) mg/dL AST (14-36) U/L ALT (9-52) U/L Alkaline Phosphatase (38-126) U/L Total Protein (6.3-8.3) g/dL Albumin (3.5-5.0) g/dL Globulin (2.2-3.9) gm/dL Albumin/Globulin Ratio (1.0-2.1) Arterial Blood Potassium Urine Color Straw (YELLOW) Urine Clarity Clear (Clear) Urine pH 7.0 (5.0-8.0) Ur Specific [place] 1.011 (1.003-1.030) Urine Protein Negative (NEGATIVE) mg/dL Urine Glucose (UA) 3+ H (Normal) mg/dL Urine Ketones Trace (NEGATIVE) mg/dL Urine Blood 2+ H (NEGATIVE) Urine Nitrate Negative (NEGATIVE) Urine Bilirubin Negative (NEGATIVE) Urine Urobilinogen Normal (0.2-1.0) mg/dL Ur Leukocyte Esterase Trace (Negative) Devin/uL Urine WBC (Auto) 7 H (0-5) /hpf Urine RBC (Auto) 10 H (0-3) /hpf Ur Squamous Epith Cells < 1 (0-5) /hpf Urine Bacteria Rare (<OCC) Laboratory Results - last 24 hr 05/06/18 05/06/18 05/06/18 18:03 21:34 23:27 WBC RBC Hgb Hct MCV MCH MCHC RDW Plt Count MPV Neut % (Auto) Lymph % (Auto) Bryan % (Auto) Eos % (Auto) Baso % (Auto) Neut # (Auto) Lymph # (Auto) Bryan # (Auto) Eos # (Auto) Baso # (Auto) Neutrophils % (Manual) Lymphocytes % (Manual) Monocytes % (Manual) Eosinophils % (Manual) Platelet Estimate Polychromasia Hypochromasia (manual) Anisocytosis (manual) Puncture Site pCO2 pO2 HCO3 ABG pH ABG Total CO2 ABG O2 Saturation ABG Base Excess Erik Test ABG Potassium A-a O2 Difference Respiratory Index Sodium Chloride Glucose Lactate Liter Flow Vent Mode Mechanical Rate Spontaneous Rate FiO2 Tidal Volume PEEP Pressure Support CPAP Inspiratory BiPAP Expiratory BiPAP Blood Gas Comments Crit Value Called To Crit Value Called By Crit Value Read Back Blood Gas Notified Time Potassium Carbon Dioxide Anion Gap BUN Creatinine Est GFR ( Amer) Est GFR (Non-Af Amer) POC Glucose (mg/dL) 220 H 221 H Random Glucose Calcium Phosphorus Magnesium Total Bilirubin AST ALT Alkaline Phosphatase Total Protein Albumin Globulin Albumin/Globulin Ratio Arterial Blood Potassium Urine Color Straw Urine Clarity Clear Urine pH 7.0 Ur Specific [place] 1.011 Urine Protein Negative Urine Glucose (UA) 3+ H Urine Ketones Trace Urine Blood 2+ H Urine Nitrate Negative Urine Bilirubin Negative Urine Urobilinogen Normal Ur Leukocyte Esterase Trace Urine WBC (Auto) 7 H Urine RBC (Auto) 10 H Ur Squamous Epith Cells < 1 Urine Bacteria Rare 05/07/18 05/07/18 05/07/18 05:39 05:56 06:14 WBC 16.1 H RBC 4.82 Hgb 12.5 Hct 38.0 MCV 79.0 L MCH 26.0 L MCHC 32.9 L RDW 15.6 H Plt Count 171 MPV 11.2 Neut % (Auto) 85.5 H Lymph % (Auto) 9.4 L Bryan % (Auto) 3.7 Eos % (Auto) 0.9 Baso % (Auto) 0.5 Neut # (Auto) 13.8 H Lymph # (Auto) 1.5 Bryan # (Auto) 0.6 Eos # (Auto) 0.1 Baso # (Auto) 0.1 Neutrophils % (Manual) 85 H Lymphocytes % (Manual) 13 L Monocytes % (Manual) 1 Eosinophils % (Manual) 1 Platelet Estimate Normal Polychromasia Slight Hypochromasia (manual) Slight Anisocytosis (manual) Slight Puncture Site Cancelled pCO2 Cancelled pO2 Cancelled HCO3 Cancelled ABG pH Cancelled ABG Total CO2 Cancelled ABG O2 Saturation Cancelled ABG Base Excess Cancelled Erik Test Cancelled ABG Potassium Cancelled A-a O2 Difference Cancelled Respiratory Index Cancelled Sodium Cancelled Chloride Cancelled Glucose Cancelled Lactate Cancelled Liter Flow Cancelled Vent Mode Cancelled Mechanical Rate Cancelled Spontaneous Rate Cancelled FiO2 Cancelled Tidal Volume Cancelled PEEP Cancelled Pressure Support Cancelled CPAP Cancelled Inspiratory BiPAP Cancelled Expiratory BiPAP Cancelled Blood Gas Comments Cancelled Crit Value Called To Cancelled Crit Value Called By Cancelled Crit Value Read Back Cancelled Blood Gas Notified Time Cancelled Potassium Carbon Dioxide Anion Gap BUN Creatinine Est GFR ( Amer) Est GFR (Non-Af Amer) POC Glucose (mg/dL) 274 H Random Glucose Calcium Phosphorus Magnesium Total Bilirubin AST ALT Alkaline Phosphatase Total Protein Albumin Globulin Albumin/Globulin Ratio Arterial Blood Potassium Cancelled Urine Color Urine Clarity Urine pH Ur Specific [place] Urine Protein Urine Glucose (UA) Urine Ketones Urine Blood Urine Nitrate Urine Bilirubin Urine Urobilinogen Ur Leukocyte Esterase Urine WBC (Auto) Urine RBC (Auto) Ur Squamous Epith Cells Urine Bacteria 05/07/18 05/07/18 05/07/18 06:14 06:37 11:52 WBC RBC Hgb Hct MCV MCH MCHC RDW Plt Count MPV Neut % (Auto) Lymph % (Auto) Bryan % (Auto) Eos % (Auto) Baso % (Auto) Neut # (Auto) Lymph # (Auto) Bryan # (Auto) Eos # (Auto) Baso # (Auto) Neutrophils % (Manual) Lymphocytes % (Manual) Monocytes % (Manual) Eosinophils % (Manual) Platelet Estimate Polychromasia Hypochromasia (manual) Anisocytosis (manual) Puncture Site R rad pCO2 29 L pO2 144 H HCO3 25.8 ABG pH 7.51 H ABG Total CO2 24.0 ABG O2 Saturation 99.4 H ABG Base Excess 1.0 Erik Test Pos ABG Potassium 3.8 A-a O2 Difference 105.0 Respiratory Index 0.7 Sodium 145 149.0 H Chloride 114 H 118.0 H Glucose 275 H Lactate 2.0 Liter Flow Vent Mode A/c pc Mechanical Rate 18 Spontaneous Rate FiO2 40.0 Tidal Volume PEEP 5 Pressure Support CPAP Inspiratory BiPAP Expiratory BiPAP Blood Gas Comments Crit Value Called To Crit Value Called By Crit Value Read Back Blood Gas Notified Time Potassium 4.7 Carbon Dioxide 23 Anion Gap 13 BUN 22 H Creatinine 0.8 Est GFR ( Amer) > 60 Est GFR (Non-Af Amer) > 60 POC Glucose (mg/dL) 254 H Random Glucose 249 H Calcium 8.0 L Phosphorus 3.0 Magnesium 2.7 H Total Bilirubin 1.0 AST 55 H ALT 98 H Alkaline Phosphatase 167 H D Total Protein 6.3 Albumin 3.1 L D Globulin 3.2 Albumin/Globulin Ratio 1.0 Arterial Blood Potassium 3.8 Urine Color Urine Clarity Urine pH Ur Specific [place] Urine Protein Urine Glucose (UA) Urine Ketones Urine Blood Urine Nitrate Urine Bilirubin Urine Urobilinogen Ur Leukocyte Esterase Urine WBC (Auto) Urine RBC (Auto) Ur Squamous Epith Cells Urine Bacteria Assessment/Plan - Assessment and Plan (Free Text) Plan: PAtient seen and [facility]. PAtient off all drips -HTN: BP controlled -Tolerating CPAP with FiO2 30% -surgery eval for trach and peg -family at bedside. agree with above management -continue to monitor - Date & Time Date: 05/07/18 Time: 12:54
[2018-05-07] MEDS: Pantoprazole 40 mg Susp UD NG SCH (10:50)
[2018-05-07] MEDS: levETIRAcetam 1,000 MG in Sodium Chloride 0.9% 100 ML IVPB SCH ×2 (10:50→22:56)
[2018-05-07] MEDS: (Lantus) Insulin Glargine, Recombinant SC SCH (10:50)
[2018-05-07] MEDS: Thiamine 100 mg/ml Inj IV SCH (10:51)
[2018-05-07] MEDS: Lactobacillus Acidophilus 500 MU Cap PO SCH ×2 (10:51→19:01)
--- NOTE | 2018-05-07 12:38 | CP.PCM.CON ---
History of Present Illness - History of Present Illness History of Present Illness: General Surgery Consult For Dr. Adams This 52F was seen and examined this AM at bedside. She reported on the with an anoxic brain injury. Prognosis unkown. Family states they believe she will get better. 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 Family understood and requested to proceed with a tracheostomy and a gastrostomy tube placement. Surgical hx: No known surgeries Medical hx: No known prior medical history Allergies: NKDA Social: EtOH Review of Systems - Review of Systems Systems not reviewed;Unavailable: Altered Mental Status, Intubated Past Patient History - Tetanus Immunizations Tetanus Immunization: Unknown - Past Medical History & Family History Past Medical History?: No - Past Social History Smoking Status: Never Smoked - MUSCULOSKELETAL/RHEUMATOLOGICAL Hx Falls: Yes - PSYCHIATRIC Hx Substance Use: (UNKNOWN) - SURGICAL HISTORY Hx Surgeries: (UNOBTAINABLE) - ANESTHESIA Hx Anesthesia: (UNOBTAINABLE) Meds Allergies/Adverse Reactions: Allergies Allergy/AdvReac Type Severity Reaction Status Date / Time No Known Allergies Allergy Verified 05/05/18 11:51 - Medications Medications: Current Medications Albuterol/Ipratropium (Duoneb 3 Mg/0.5 Mg (3 Ml) Ud) 3 ml INH RQ4 [facility] Last Admin: 05/07/18 11:34 Dose: 3 ml Amlodipine Besylate (Norvasc) 10 mg PO DAILY [facility] Aspirin (Ecotrin) 81 mg PO DAILY [facility] Last Admin: 05/07/18 10:51 Dose: 81 mg Bisacodyl (Dulcolax) 10 mg [place] TID PRN PRN Reason: Constipation Dextrose (Dextrose 50% Inj) 0 ml IV STAT PRN; Protocol PRN Reason: Hypoglycemia Protocol Dextrose (Glutose 15) 15 gm PO ONCE PRN; Protocol PRN Reason: Hypoglycemia Protocol Docusate Sodium (Colace) 100 mg NG TID [facility] Last Admin: 05/07/18 10:53 Dose: Not Given Glucagon (Glucagen Diagnostic Kit) 1 mg IM STAT PRN; Protocol PRN Reason: Hypoglycemia Protocol Heparin Sodium (Porcine) (Heparin) 5,000 units SC Q8 [facility] Last Admin: 05/07/18 06:29 Dose: 5,000 units Hydralazine HCl (Apresoline) 25 mg PO QID [facility] Last Admin: 05/06/18 22:53 Dose: 25 mg Levetiracetam 1,000 mg/ Sodium (Chloride) 110 mls @ 420 mls/hr IVPB Q12H [facility] Last Admin: 05/07/18 10:50 Dose: 420 mls/hr Vancomycin HCl 1,000 mg/ (Sodium Chloride) 200 mls @ 133.333 mls/hr IVPB Q12H [facility]; Protocol Last Admin: 05/07/18 06:28 Dose: 133.333 mls/hr Meropenem 1 gm/ Sodium (Chloride) 100 mls @ 100 mls/hr IVPB Q8H [facility]; Protocol Last Admin: 05/07/18 10:50 Dose: 100 mls/hr Dextrose (Dextrose 5% In Water 1000 Ml) 1,000 mls @ 0 mls/hr IV .Q0M PRN; Protocol PRN Reason: Hypoglycemia Protocol Metronidazole (Flagyl) 500 mg in 100 mls @ 100 mls/hr IVPB Q8H [facility]; Protocol Last Admin: 05/07/18 10:50 Dose: 100 mls/hr Ibuprofen (Motrin Oral Susp) 200 mg PO Q6H PRN PRN Reason: Fever >100.4 F Last Admin: 05/05/18 20:00 Dose: 200 mg Insulin Aspart (Novolog) 0 unit SC Q6 [facility]; Protocol Last Admin: 05/07/18 06:29 Dose: 4 units Insulin Glargine (Lantus) 10 unit SC DAILY [facility] Last Admin: 05/07/18 10:50 Dose: 10 u Labetalol HCl (Trandate) 10 mg IVP Q4H PRN PRN Reason: Systolic Blood Pressure Last Admin: 05/07/18 06:29 Dose: 10 mg Lactobacillus Acidophilus (Bacid Acidophilus) 1 cap PO BID [facility] Last Admin: 05/07/18 10:51 Dose: 1 cap Metoprolol Tartrate (Lopressor) 75 mg PO BID [facility] Last Admin: 05/07/18 10:52 Dose: 75 mg Pantoprazole Sodium (Protonix Susp) 40 mg NG DAILY [facility] Last Admin: 05/07/18 10:50 Dose: 40 mg Rosuvastatin Calcium (Crestor) 5 mg PO HS [facility] Last Admin: 05/06/18 22:53 Dose: 5 mg Sennosides (Senokot Tab) 8.6 mg PO DAILY [facility] Last Admin: 05/07/18 10:53 Dose: Not Given Thiamine HCl (Vitamin B1 Inj) 100 mg IV DAILY [facility] Last Admin: 05/07/18 10:51 Dose: 100 mg Physical Exam - Constitutional Appears: Chronically Ill - Head Exam Additional comments: Visible bruising on neck - Eye Exam Additional comments: Dolls eye reflex - Cardiovascular Exam Cardiovascular Exam: +S1, +S2 - GI/Abdominal Exam GI & Abdominal Exam: Soft - Neurological Exam Additional comments: GCS3T Results - Vital Signs Recent Vital Signs: Last Vital Signs Temp 98.5 F 05/07/18 12:00 Pulse 79 05/07/18 12:00 Resp 22 05/07/18 12:00 BP 150/73 05/07/18 11:58 Pulse Ox 99 05/07/18 12:00 - Labs Result Diagrams: 05/07/18 06:14 05/07/18 06:14 Labs: Laboratory Results - last 24 hr 05/06/18 05/06/18 05/06/18 18:03 21:34 23:27 WBC RBC Hgb Hct MCV MCH MCHC RDW Plt Count MPV Neut % (Auto) Lymph % (Auto) [place] % (Auto) Eos % (Auto) Baso % (Auto) Neut # (Auto) Lymph # (Auto) [place] # (Auto) Eos # (Auto) Baso # (Auto) Neutrophils % (Manual) Lymphocytes % (Manual) Monocytes % (Manual) Eosinophils % (Manual) Platelet Estimate Polychromasia Hypochromasia (manual) Anisocytosis (manual) Puncture Site pCO2 pO2 HCO3 ABG pH ABG Total CO2 ABG O2 Saturation ABG Base Excess Erik Test ABG Potassium A-a O2 Difference Respiratory Index Sodium Chloride Glucose Lactate Liter Flow Vent Mode Mechanical Rate Spontaneous Rate FiO2 Tidal Volume PEEP Pressure Support CPAP Inspiratory BiPAP Expiratory BiPAP Blood Gas Comments Crit Value Called To Crit Value Called By Crit Value Read Back Blood Gas Notified Time Potassium Carbon Dioxide Anion Gap BUN Creatinine Est GFR ( Amer) Est GFR (Non-Af Amer) POC Glucose (mg/dL) 220 H 221 H Random Glucose Calcium Phosphorus Magnesium Total Bilirubin AST ALT Alkaline Phosphatase Total Protein Albumin Globulin Albumin/Globulin Ratio Arterial Blood Potassium Urine Color Straw Urine Clarity Clear Urine pH 7.0 Ur Specific Saline 1.011 Urine Protein Negative Urine Glucose (UA) 3+ H Urine Ketones Trace Urine Blood 2+ H Urine Nitrate Negative Urine Bilirubin Negative Urine Urobilinogen Normal Ur Leukocyte Esterase Trace Urine WBC (Auto) 7 H Urine RBC (Auto) 10 H Ur Squamous Epith Cells < 1 Urine Bacteria Rare 05/07/18 05/07/18 05/07/18 05:39 05:56 06:14 WBC 16.1 H RBC 4.82 Hgb 12.5 Hct 38.0 MCV 79.0 L MCH 26.0 L MCHC 32.9 L RDW 15.6 H Plt Count 171 MPV 11.2 Neut % (Auto) 85.5 H Lymph % (Auto) 9.4 L [place] % (Auto) 3.7 Eos % (Auto) 0.9 Baso % (Auto) 0.5 Neut # (Auto) 13.8 H Lymph # (Auto) 1.5 [place] # (Auto) 0.6 Eos # (Auto) 0.1 Baso # (Auto) 0.1 Neutrophils % (Manual) 85 H Lymphocytes % (Manual) 13 L Monocytes % (Manual) 1 Eosinophils % (Manual) 1 Platelet Estimate Normal Polychromasia Slight Hypochromasia (manual) Slight Anisocytosis (manual) Slight Puncture Site Cancelled pCO2 Cancelled pO2 Cancelled HCO3 Cancelled ABG pH Cancelled ABG Total CO2 Cancelled ABG O2 Saturation Cancelled ABG Base Excess Cancelled Erik Test Cancelled ABG Potassium Cancelled A-a O2 Difference Cancelled Respiratory Index Cancelled Sodium Cancelled Chloride Cancelled Glucose Cancelled Lactate Cancelled Liter Flow Cancelled Vent Mode Cancelled Mechanical Rate Cancelled Spontaneous Rate Cancelled FiO2 Cancelled Tidal Volume Cancelled PEEP Cancelled Pressure Support Cancelled CPAP Cancelled Inspiratory BiPAP Cancelled Expiratory BiPAP Cancelled Blood Gas Comments Cancelled Crit Value Called To Cancelled Crit Value Called By Cancelled Crit Value Read Back Cancelled Blood Gas Notified Time Cancelled Potassium Carbon Dioxide Anion Gap BUN Creatinine Est GFR ( Amer) Est GFR (Non-Af Amer) POC Glucose (mg/dL) 274 H Random Glucose Calcium Phosphorus Magnesium Total Bilirubin AST ALT Alkaline Phosphatase Total Protein Albumin Globulin Albumin/Globulin Ratio Arterial Blood Potassium Cancelled Urine Color Urine Clarity Urine pH Ur Specific Saline Urine Protein Urine Glucose (UA) Urine Ketones Urine Blood Urine Nitrate Urine Bilirubin Urine Urobilinogen Ur Leukocyte Esterase Urine WBC (Auto) Urine RBC (Auto) Ur Squamous Epith Cells Urine Bacteria 1105/07/18 05/07/18 06:14 06:37 11:52 WBC RBC Hgb Hct MCV MCH MCHC RDW Plt Count MPV Neut % (Auto) Lymph % (Auto) [place] % (Auto) Eos % (Auto) Baso % (Auto) Neut # (Auto) Lymph # (Auto) [place] # (Auto) Eos # (Auto) Baso # (Auto) Neutrophils % (Manual) Lymphocytes % (Manual) Monocytes % (Manual) Eosinophils % (Manual) Platelet Estimate Polychromasia Hypochromasia (manual) Anisocytosis (manual) Puncture Site R rad pCO2 29 L pO2 144 H HCO3 25.8 ABG pH 7.51 H ABG Total CO2 24.0 ABG O2 Saturation 99.4 H ABG Base Excess 1.0 Erik Test Pos ABG Potassium 3.8 A-a O2 Difference 105.0 Respiratory Index 0.7 Sodium 145 149.0 H Chloride 114 H 118.0 H Glucose 275 H Lactate 2.0 Liter Flow Vent Mode A/c pc Mechanical Rate 18 Spontaneous Rate FiO2 40.0 Tidal Volume PEEP 5 Pressure Support CPAP Inspiratory BiPAP Expiratory BiPAP Blood Gas Comments Crit Value Called To Crit Value Called By Crit Value Read Back Blood Gas Notified Time Potassium 4.7 Carbon Dioxide 23 Anion Gap 13 BUN 22 H Creatinine 0.8 Est GFR ( Amer) > 60 Est GFR (Non-Af Amer) > 60 POC Glucose (mg/dL) 254 H Random Glucose 249 H Calcium 8.0 L Phosphorus 3.0 Magnesium 2.7 H Total Bilirubin 1.0 AST 55 H ALT 98 H Alkaline Phosphatase 167 H D Total Protein 6.3 Albumin 3.1 L D Globulin 3.2 Albumin/Globulin Ratio 1.0 Arterial Blood Potassium 3.8 Urine Color Urine Clarity Urine pH Ur Specific Saline Urine Protein Urine Glucose (UA) Urine Ketones Urine Blood Urine Nitrate Urine Bilirubin Urine Urobilinogen Ur Leukocyte Esterase Urine WBC (Auto) Urine RBC (Auto) Ur Squamous Epith Cells Urine Bacteria Assessment & Plan - Assessment and Plan (Free Text) Assessment: 52F anoxic brain injury Will plan for G-tube and tracheostomy early ext week D/W Dr. Angie Jack PGY3
--- NOTE | 2018-05-07 13:37 | CP.PCM.PN ---
Subjective - Date & Time of Evaluation Date of Evaluation: 05/07/18 Time of Evaluation: 13:15 - Subjective Subjective: Hospitalist Progress Note Patient was seen and examined at 1:15 PM 05/07/18 ICU Bed #18 General: Intubated on vent, nonresponsive HEENT: NCA, Pupils are round and reactive to light, NO cervical/supraclavicular/submandibular lymphadenopathy, Right mid to lateral neck there is a 1 mm thick eschar Cardio: NS1 and NS2, NO M/R/G Respiratory: Diffuse course breath sounds bilaterallly GI: BSx4 are decreased, Soft, ND, NO HSM, NO guarding Ext: Pulses are strong and equal, Capillary Refill is 2 seconds, Nonpitting edema noted in the bilateral hands/arms Neuro: exam not possible at this time Skin: multiple areas of bruising noted at IV attempts on Right antecubittal fossa, Left anterior lower lateral arm is an eschar that appears to be square in nature which has been noted by nursing since 05/04/18 (possible fluid filled blister that reptured: no signs of surrounding cellulitis 1.Respiratory Failure Due to Asphyxiation/Possible Suicide Attempt Intubated and on vent [place] [employer] were made aware by admitting team 2. NSTEMI Elevated troponin ASA 81 mg PO 1x/day Crestor 5 mg PO 1x/day Dr Gay consulted 3. Leukocytosis Likely Secondary to Aspiration Pneumonia Chest X Ray upon admission indicated Right Lung Infiltrate Current Chest X Ray 05/07/18 shows no active disease Flagyl 500 mg IV Q8H Meropenem 500 mg IV Q8H Vancomycin 1 gm IV Q12H 4. Anoxic Brain Injury EEG showed diffuse encephalopathy with burst suppression. Repeat CT head-no bleeding MRI Brain: most compatible with subacute favored over acute cereberal hypoxic insult with minimal involvement of the lower haris and the cerebellar hemispheres Levatiracetam 1,000 [address] IV Q[address]H Neurology Dr. Duff/[place] 5. Transaminitis Likely shock liver Follow LFTs 6. Diabetes mellitus Lantus 10 Units SC 1x/day Aspart ISS Q6H 7. 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 HTN Nicardipine Drip stopped 05/06/18 Hydralazine 25 mg PO TID Metoprolol Tartrate 75 mg PO BID Norvasc 5 mg PO 1x/day Labetalol 10 mg IV Q4H PRN SBP > 140 8. Prophylaxis Heparin 5,000 Units SC Q8H Protonix 40 mg NGT Feeding Glucerna with goal of 50 ml/hr Palliative Care Nurse Chucho had family meeting with , son, and sister earlier this morning and they have tentatively agreed to have Trach and PEG placed. Spoke with Surgery Team and tentively Trach and PEG is planned for Thursday/Thursday. Please see Nurse Rankin's note for details Patient is uninsured and is citizien of [facility] and has insurance through his work as per conversation with Son Vincent Hodge. Meeting with Play Leader La Nena, Nurse Chucho, and Nurse Camryn (who translated in kazakh) after my exam in which Son Vincent Hodge was instructed to work with patient's to have patient declared on his insurance through his work to see if she could obtain benefits so that monitoring and evaluation advisor care can be planned. Vick Kerns D.O. Objective - Vital Signs/Intake and Output Vital Signs (last 24 hours): Temp Pulse Resp BP Pulse Ox 98.5 F 79 22 150/73 99 05/07/18 12:00 05/07/18 12:00 05/07/18 12:00 05/07/18 11:58 05/07/18 12:00 Intake and Output: 05/07/18 05/07/18 06:59 18:59 Intake Total 880 600 Output Total 1400 Balance -520 600 - Medications Medications: Current Medications Albuterol/Ipratropium (Duoneb 3 Mg/0.5 Mg (3 Ml) Ud) 3 ml INH RQ4 [facility] Last Admin: 05/07/18 11:34 Dose: 3 ml Amlodipine Besylate (Norvasc) 10 mg PO DAILY [facility] Aspirin (Ecotrin) 81 mg PO DAILY [facility] Last Admin: 05/07/18 10:51 Dose: 81 mg Bisacodyl (Dulcolax) 10 mg [place] TID PRN PRN Reason: Constipation Dextrose (Dextrose 50% Inj) 0 ml IV STAT PRN; Protocol PRN Reason: Hypoglycemia Protocol Dextrose (Glutose 15) 15 gm PO ONCE PRN; Protocol PRN Reason: Hypoglycemia Protocol Glucagon (Glucagen Diagnostic Kit) 1 mg IM STAT PRN; Protocol PRN Reason: Hypoglycemia Protocol Heparin Sodium (Porcine) (Heparin) 5,000 units SC Q8 [facility] Last Admin: 05/07/18 06:29 Dose: 5,000 units Hydralazine HCl (Apresoline) 25 mg PO QID [facility] Last Admin: 05/06/18 22:53 Dose: 25 mg Levetiracetam 1,000 mg/ Sodium (Chloride) 110 mls @ 420 mls/hr IVPB Q12H [facility] Last Admin: 05/07/18 10:50 Dose: 420 mls/hr Vancomycin HCl 1,000 mg/ (Sodium Chloride) 200 mls @ 133.333 mls/hr IVPB Q12H [facility]; Protocol Last Admin: 05/07/18 06:28 Dose: 133.333 mls/hr Meropenem 1 gm/ Sodium (Chloride) 100 mls @ 100 mls/hr IVPB Q8H [facility]; Protocol Last Admin: 05/07/18 10:50 Dose: 100 mls/hr Dextrose (Dextrose 5% In Water 1000 Ml) 1,000 mls @ 0 mls/hr IV .Q0M PRN; Protocol PRN Reason: Hypoglycemia Protocol Metronidazole (Flagyl) 500 mg in 100 mls @ 100 mls/hr IVPB Q8H [facility]; Protocol Last Admin: 05/07/18 10:50 Dose: 100 mls/hr Ibuprofen (Motrin Oral Susp) 200 mg PO Q6H PRN PRN Reason: Fever >100.4 F Last Admin: 05/05/18 20:00 Dose: 200 mg Insulin Aspart (Novolog) 0 unit SC Q6 [facility]; Protocol Last Admin: 05/07/18 06:29 Dose: 4 units Insulin Glargine (Lantus) 10 unit SC DAILY [facility] Last Admin: 05/07/18 10:50 Dose: 10 u Labetalol HCl (Trandate) 10 mg IVP Q4H PRN PRN Reason: Systolic Blood Pressure Last Admin: 05/07/18 06:29 Dose: 10 mg Lactobacillus Acidophilus (Bacid Acidophilus) 1 cap PO BID [facility] Last Admin: 05/07/18 10:51 Dose: 1 cap Metoprolol Tartrate (Lopressor) 75 mg PO BID [facility] Last Admin: 05/07/18 10:52 Dose: 75 mg Pantoprazole Sodium (Protonix Susp) 40 mg NG DAILY [facility] Last Admin: 05/07/18 10:50 Dose: 40 mg Rosuvastatin Calcium (Crestor) 5 mg PO HS [facility] Last Admin: 05/06/18 22:53 Dose: 5 mg Senna/Docusate Sodium (Senokot S 50 Mg-8.6 Mg) 1 tab PO BID [facility] Thiamine HCl (Vitamin B1 Inj) 100 mg IV DAILY [facility] Last Admin: 05/07/18 10:51 Dose: 100 mg - Labs Labs: 05/07/18 06:14 05/07/18 06:14 PT 12.6 SECONDS (9.7-12.2) H 05/02/18 13:23 INR 1.2 05/02/18 13:23 APTT 128 SECONDS (21-34) H* D 05/02/18 20:39
[2018-05-07] MEDS: Docusate-Senna 50 mg-8.6 mg Tab PO SCH (19:01)
[2018-05-08] MEDS: (Novolog) Insulin Aspart, Recombinant 100 u/ml 10 ml vial SC SCH ×4 (00:48→18:04)
[2018-05-08] MEDS: Albuterol-Ipratrop 3 mg / 0.5 (3 ml) UD INH SCH ×8 (00:58→23:47)
[2018-05-08] MEDS: metroNIDAZOLE IV 500 mg/100 ml 500 MG/100 ML BAG IVPB SCH ×3 (01:00→18:05)
[2018-05-08] MEDS: Meropenem 1 GM in Sodium Chloride 0.9% 100 ML IVPB SCH ×3 (02:38→18:06)
[2018-05-08 06:07] LABS: ABG ALLEN TEST POS; ARTERIAL BLOOD GAS HCO3 26.2 mmol/L (21-28); ARTERIAL BLOOD GAS O2 SAT 99.6 % (95-98); ARTERIAL BLOOD GAS PCO2 33 mm/Hg (35-45); ARTERIAL BLOOD GAS PH 7.48 (7.35-7.45); ARTERIAL BLOOD GAS PO2 134 mm/Hg (80-100); ARTERIAL BLOOD GAS TCO2 25.6 mmol/L (22-28)
[2018-05-08 07:48] LABS: BASO % 0.4 % (0.0-2.0); EOS # 0.2 K/uL (0.0-0.7); HEMOGLOBIN 11.1 g/dL (11.0-16.0); LYMPH # 1.2 K/uL (1.0-4.3); LYMPH % 10.5 % (20.0-40.0); MEAN CORPUSCULAR HEMOGLOBIN 26.4 pg (27.0-31.0); MEAN CORPUSCULAR HGB CONC 33.5 g/dL (33.0-37.0); MEAN PLATELET VOLUME 11.1 fL (7.2-11.7); MONO # 0.9 K/uL (0.0-0.8); MONO % 7.7 % (0.0-10.0); NEUT # 9.2 K/uL (1.8-7.0); NEUT % 79.4 % (50.0-75.0); RBC 4.2 Mil/uL (3.80-5.20); RED CELL DISTRIBUTION WIDTH 15.7 % (11.5-14.5); WHITE BLOOD COUNT 11.5 K/uL (4.8-10.8)
[2018-05-08 08:17] LABS: ALB/GLOB RATIO 0.9 (1.0-2.1); ALBUMIN 2.4 g/dL (3.5-5.0); ALT/SGPT 68 U/L (9-52); AST/SGOT 41 U/L (14-36); BLOOD UREA NITROGEN 23 mg/dL (7-17); CALCIUM 7.1 mg/dl (8.6-10.4); GFR NON-AFRICAN AMERICAN > 60
--- NOTE | 2018-05-08 08:58 | RAD ---
Date of service: 05/08/2018 HISTORY: intubated COMPARISON: Portable chest 05/07/2018 FINDINGS: LUNGS: No active pulmonary disease. PLEURA: No significant pleural effusion identified, no pneumothorax apparent. CARDIOVASCULAR: No aortic atherosclerotic calcification present. Normal cardiac size. No pulmonary vascular congestion. OSSEOUS STRUCTURES: No significant abnormalities. VISUALIZED UPPER ABDOMEN: Normal. OTHER FINDINGS: Endotracheal and nasogastric tubes not significantly changed in position with right PICC also stable in position. IMPRESSION: No interval acute cardiopulmonary disease. Tubes and catheter unchanged in position.
[2018-05-08] MEDS: Lactobacillus Acidophilus 500 MU Cap PO SCH ×2 (09:43→18:04)
[2018-05-08] MEDS: Docusate-Senna 50 mg-8.6 mg Tab PO SCH ×2 (09:43→18:42)
[2018-05-08] MEDS: Pantoprazole 40 mg Susp UD NG SCH (09:43)
[2018-05-08] MEDS: Thiamine 100 mg/ml Inj IV SCH (09:45)
[2018-05-08] MEDS: (Lantus) Insulin Glargine, Recombinant SC SCH (09:46)
[2018-05-08] MEDS ORDERED: Potassium Phosphate 15 MMOLE in Sodium Chloride 0.9% 250 ML IV ONE (11:30)
[2018-05-08] MEDS: levETIRAcetam 1,000 MG in Sodium Chloride 0.9% 100 ML IVPB SCH ×2 (11:30→22:46)
--- NOTE | 2018-05-08 11:30 | PCM.PROC ---
Procedures Attestation:: I certify that I have explained the specified Operation(s) or Procedure(s), risks, benefits and reasonable alternatives to the Patient and/or other person responsible. The opportunity was given to ask questions and all questions answered - Intubation Sedative: None Paralytic: Rocuronimum Laryngoscope: Glidescope Assist Device Used: Fiber Optic Device ET Tube Size: 7.5 ET Tube Uncuffed: No ET Tube Secured at Depth: 22 ET Tube Secured Locarion: Teeth ET Tube Placement Confirmation: Visualized Passing Through Cords, Breath Sounds Equal Bilaterally, No Breath Sounds Over Epigastrum, Confirmation w/Capnometry Patient Tolerated Procedure: Well Procedure Immediate Complications: None
[2018-05-08] MEDS ORDERED: Rocuronium 10 mg/ml (5 ml) IV ONE (11:32)
[2018-05-08] MEDS: Sodium Chloride 0.45% 1,000 ML IV SCH (11:45)
[2018-05-08] MEDS: Labetalol 5mg/ml (4ml) IVP PRN (12:39)
--- NOTE | 2018-05-08 14:10 | CP.PCM.PN ---
Subjective - Date & Time of Evaluation Date of Evaluation: 05/08/18 Time of Evaluation: 12:45 - Subjective Subjective: Hospitalist Progress Note Patient was seen and examined at 12:45 PM 05/08/18 ICU Bed #18 General: Intubated on vent, nonresponsive HEENT: NCA, Pupils are round and reactive to light, NO cervical/supraclavicular/submandibular lymphadenopathy, Right mid to lateral neck there is a 1 mm thick eschar Cardio: NS1 and NS2, NO M/R/G Respiratory: Diffuse course breath sounds bilaterallly GI: BSx4 are decreased, Soft, ND, NO HSM, NO guarding Ext: Pulses are strong and equal, Capillary Refill is 2 seconds, Nonpitting edema noted in the bilateral hands/arms Neuro: exam not possible at this time Skin: multiple areas of bruising noted at IV attempts on Right antecubittal fossa, Left anterior lower lateral arm is an eschar that appears to be square in nature which has been noted by nursing since 05/04/18 (possible fluid filled blister that reptured: no signs of surrounding cellulitis) 1.Respiratory Failure Due to Asphyxiation/Possible Suicide Attempt Intubated and on vent [place] [employer] were made aware by admitting team 2. NSTEMI Elevated troponin ASA 81 mg PO 1x/day Crestor 5 mg PO 1x/day Dr Gay consulted 3. Leukocytosis Likely Secondary to Aspiration Pneumonia Chest X Ray upon admission indicated Right Lung Infiltrate Current Chest X Ray 05/07/18 shows no active disease Flagyl 500 mg IV Q8H Meropenem 500 mg IV Q8H Vancomycin 1 gm IV Q12H 4. Anoxic Brain Injury EEG showed diffuse encephalopathy with burst suppression. Repeat CT head-no bleeding MRI Brain: most compatible with subacute favored over acute cereberal hypoxic insult with minimal involvement of the lower haris and the cerebellar hemispheres Levatiracetam 1,000 mg IV Q12H Neurology Dr. Duff/Guilherme 5. Transaminitis Likely shock liver Follow LFTs 6. Diabetes mellitus Lantus 10 Units SC 1x/day Aspart ISS Q6H 7. ARF Likely Secondary to ATN with Hypernatremia Treated with 1/2 NS which was stopped 05/06/18 Na has normalized BUN/Cr have improved [employer] Dr. Samuels 8. HTN Nicardipine Drip stopped 05/06/18 Hydralazine 25 mg PO TID Metoprolol Tartrate 75 mg PO BID Norvasc 5 mg PO 1x/day Labetalol 10 mg IV Q4H PRN SBP > 140 9. Hyponatremia 1/2 NS @75 ml/hour 250 mL Free Water flushes via NG Q6H 10. Prophylaxis Heparin 5,000 Units SC Q8H Protonix 40 mg NGT Feeding Glucerna with goal of 50 ml/hr Dulcolax 10 mg [place] TID PRN (patient has not had a bowel movement) 05/07/18: Palliative Care Nurse Chucho had family meeting with , son, and sister earlier this morning and they have tentatively agreed to have Trach and PEG placed. Spoke with Surgery Team and tentatively Trach and PEG is planned for Thursday/Thursday. Please see Nurse Chucho's note for details Patient is uninsured and is citizien of [facility] and has insurance through his work as per conversation with Sudheer Hodge. Meeting with Licensed Embalmer La Nena, Nurse Chucho, and Nurse Camryn (who translated in slovenian) after my exam in which Sudheer Hodge was instructed to work with patient's to have patient declared on his insurance through his work to see if she could obtain benefits so that long term care administrator care can be planned. 05/08/18: Spoke with Sisters Trinh (who speaks Palauan and translated) and Yamileth and Son Mahendra. Explained what anoxic brain injury was and went over the other diagnosises as documented above in Assessment and Plan. Again, explained to them the likely long term care administrator need for Trach and PEG Tube and that they needed to work with patient's to obtain benefits if possible to help them determine to what extent they want long term care administrator care. Also explained to them the poor prognosis considering the anoxic brain injury. Representatives from the [place] [employer] spoke with ICU Attending and myself and are also speaking with the family members that were present at bedside today: Yamileth Tsang [place]. Vick Kerns D.O. Objective - Vital Signs/Intake and Output Vital Signs (last 24 hours): Temp Pulse Resp BP Pulse Ox 100.7 F H 110 H 18 159/87 H 99 05/08/18 09:40 05/08/18 10:00 05/08/18 10:00 05/08/18 10:00 05/08/18 10:00 Intake and Output: 05/08/18 05/08/18 06:59 18:59 Intake Total 750 700 Output Total 350 570 Balance 400 130 - Medications Medications: Current Medications Albuterol/Ipratropium (Duoneb 3 Mg/0.5 Mg (3 Ml) Ud) 3 ml INH RQ4 [facility] Last Admin: 05/08/18 11:59 Dose: 3 ml Amlodipine Besylate (Norvasc) 10 mg PO DAILY [facility] Last Admin: 05/08/18 13:02 Dose: 10 mg Aspirin (Ecotrin) 81 mg PO DAILY [facility] Last Admin: 05/08/18 09:44 Dose: 81 mg Bisacodyl (Dulcolax) 10 mg [place] TID PRN PRN Reason: Constipation Dextrose (Dextrose 50% Inj) 0 ml IV STAT PRN; Protocol PRN Reason: Hypoglycemia Protocol Dextrose (Glutose 15) 15 gm PO ONCE PRN; Protocol PRN Reason: Hypoglycemia Protocol Glucagon (Glucagen Diagnostic Kit) 1 mg IM STAT PRN; Protocol PRN Reason: Hypoglycemia Protocol Heparin Sodium (Porcine) (Heparin) 5,000 units SC Q8 [facility] Last Admin: 05/08/18 07:44 Dose: 5,000 units Hydralazine HCl (Apresoline) 25 mg PO QID [facility] Last Admin: 05/07/18 22:56 Dose: 25 mg Levetiracetam 1,000 mg/ Sodium (Chloride) 110 mls @ 420 mls/hr IVPB Q12H [facility] Last Admin: 05/08/18 11:30 Dose: 420 mls/hr Vancomycin HCl 1,000 mg/ (Sodium Chloride) 200 mls @ 133.333 mls/hr IVPB Q12H [facility]; Protocol Last Admin: 05/08/18 07:45 Dose: 133.333 mls/hr Meropenem 1 gm/ Sodium (Chloride) 100 mls @ 100 mls/hr IVPB Q8H [facility]; Protocol Last Admin: 05/08/18 10:01 Dose: 100 mls/hr Dextrose (Dextrose 5% In Water 1000 Ml) 1,000 mls @ 0 mls/hr IV .Q0M PRN; Protocol PRN Reason: Hypoglycemia Protocol Metronidazole (Flagyl) 500 mg in 100 mls @ 100 mls/hr IVPB Q8H [facility]; Protocol Last Admin: 05/08/18 09:42 Dose: 100 mls/hr Potassium Phosphate 15 mmole/ (Sodium Chloride) 255 mls @ 63 mls/hr IV ONCE ONE Stop: 05/08/18 15:32 Last Admin: 05/08/18 12:00 Dose: 63 mls/hr Sodium Chloride (Sodium Chloride 0.45%) 1,000 mls @ 75 mls/hr IV .[id number] [facility] Last Admin: 05/08/18 11:45 Dose: 75 mls/hr Ibuprofen (Motrin Oral Susp) 200 mg PO Q6H PRN PRN Reason: Fever >100.4 F Last Admin: 05/05/18 20:00 Dose: 200 mg Insulin Aspart (Novolog) 0 unit SC Q6 [facility]; Protocol Last Admin: 05/08/18 12:37 Dose: 3 units Insulin Glargine (Lantus) 10 unit SC DAILY [facility] Last Admin: 05/08/18 09:46 Dose: 10 u Labetalol HCl (Trandate) 10 mg IVP Q4H PRN PRN Reason: Systolic Blood Pressure Last Admin: 05/08/18 12:39 Dose: 10 mg Lactobacillus Acidophilus (Bacid Acidophilus) 1 cap PO BID [facility] Last Admin: 05/08/18 09:43 Dose: 1 cap Lorazepam (Ativan) 1 mg IVP Q4 PRN PRN Reason: Restlessness Last Admin: 05/08/18 08:58 Dose: 1 mg Metoprolol Tartrate (Lopressor) 75 mg PO BID [facility] Last Admin: 05/08/18 09:43 Dose: 75 mg Pantoprazole Sodium (Protonix Susp) 40 mg NG DAILY [facility] Last Admin: 05/08/18 09:43 Dose: 40 mg Rosuvastatin Calcium (Crestor) 5 mg PO HS [facility] Last Admin: 05/07/18 22:56 Dose: 5 mg Senna/Docusate Sodium (Senokot S 50 Mg-8.6 Mg) 1 tab PO BID [facility] Last Admin: 05/08/18 09:43 Dose: 1 tab Thiamine HCl (Vitamin B1 Inj) 100 mg IV DAILY [facility] Last Admin: 05/08/18 09:45 Dose: 100 mg - Labs Labs: 05/08/18 07:51 05/08/18 07:30 PT 12.6 SECONDS (9.7-12.2) H 05/02/18 13:23 INR 1.2 05/02/18 13:23 APTT 128 SECONDS (21-34) H* D 05/02/18 20:39
--- NOTE | 2018-05-08 14:31 | CP.PCM.PN ---
Subjective - Date & Time of Evaluation Date of Evaluation: 05/08/18 Time of Evaluation: 14:28 - Subjective Subjective: febrile, (+)cuff leaking, tolerating ng tube feeds Objective - Vital Signs/Intake and Output Vital Signs (last 24 hours): Temp Pulse Resp BP Pulse Ox 100.7 F H 130 H 21 162/87 H 100 05/08/18 09:40 05/08/18 14:20 05/08/18 14:20 05/08/18 14:00 05/08/18 14:20 Intake and Output: 05/08/18 05/08/18 06:59 18:59 Intake Total 750 1100 Output Total 350 995 Balance 400 105 - Medications Medications: Current Medications Albuterol/Ipratropium (Duoneb 3 Mg/0.5 Mg (3 Ml) Ud) 3 ml INH RQ4 [facility] Last Admin: 05/08/18 11:59 Dose: 3 ml Amlodipine Besylate (Norvasc) 10 mg PO DAILY [facility] Last Admin: 05/08/18 13:02 Dose: 10 mg Aspirin (Ecotrin) 81 mg PO DAILY [facility] Last Admin: 05/08/18 09:44 Dose: 81 mg Bisacodyl (Dulcolax) 10 mg [place] TID PRN PRN Reason: Constipation Dextrose (Dextrose 50% Inj) 0 ml IV STAT PRN; Protocol PRN Reason: Hypoglycemia Protocol Dextrose (Glutose 15) 15 gm PO ONCE PRN; Protocol PRN Reason: Hypoglycemia Protocol Glucagon (Glucagen Diagnostic Kit) 1 mg IM STAT PRN; Protocol PRN Reason: Hypoglycemia Protocol Heparin Sodium (Porcine) (Heparin) 5,000 units SC Q8 [facility] Last Admin: 05/08/18 14:24 Dose: 5,000 units Hydralazine HCl (Apresoline) 25 mg PO QID [facility] Last Admin: 05/08/18 14:27 Dose: 25 mg Levetiracetam 1,000 mg/ Sodium (Chloride) 110 mls @ 420 mls/hr IVPB Q12H [facility] Last Admin: 05/08/18 11:30 Dose: 420 mls/hr Vancomycin HCl 1,000 mg/ (Sodium Chloride) 200 mls @ 133.333 mls/hr IVPB Q12H [facility]; Protocol Last Admin: 05/08/18 07:45 Dose: 133.333 mls/hr Meropenem 1 gm/ Sodium (Chloride) 100 mls @ 100 mls/hr IVPB Q8H [facility]; Protocol Last Admin: 05/08/18 10:01 Dose: 100 mls/hr Dextrose (Dextrose 5% In Water 1000 Ml) 1,000 mls @ 0 mls/hr IV .Q0M PRN; Protocol PRN Reason: Hypoglycemia Protocol Metronidazole (Flagyl) 500 mg in 100 mls @ 100 mls/hr IVPB Q8H [facility]; Protocol Last Admin: 05/08/18 09:42 Dose: 100 mls/hr Potassium Phosphate 15 mmole/ (Sodium Chloride) 255 mls @ 63 mls/hr IV ONCE ONE Stop: 05/08/18 15:32 Last Admin: 05/08/18 12:00 Dose: 63 mls/hr Sodium Chloride (Sodium Chloride 0.45%) 1,000 mls @ 75 mls/hr IV .[id number] [facility] Last Admin: 05/08/18 11:45 Dose: 75 mls/hr Ibuprofen (Motrin Oral Susp) 200 mg PO Q6H PRN PRN Reason: Fever >100.4 F Last Admin: 05/05/18 20:00 Dose: 200 mg Insulin Aspart (Novolog) 0 unit SC Q6 [facility]; Protocol Last Admin: 05/08/18 12:37 Dose: 3 units Insulin Glargine (Lantus) 10 unit SC DAILY [facility] Last Admin: 05/08/18 09:46 Dose: 10 u Labetalol HCl (Trandate) 10 mg IVP Q4H PRN PRN Reason: Systolic Blood Pressure Last Admin: 05/08/18 12:39 Dose: 10 mg Lactobacillus Acidophilus (Bacid Acidophilus) 1 cap PO BID [facility] Last Admin: 05/08/18 09:43 Dose: 1 cap Lorazepam (Ativan) 1 mg IVP Q4 PRN PRN Reason: Restlessness Last Admin: 05/08/18 08:58 Dose: 1 mg Metoprolol Tartrate (Lopressor) 75 mg PO BID [facility] Last Admin: 05/08/18 09:43 Dose: 75 mg Pantoprazole Sodium (Protonix Susp) 40 mg NG DAILY [facility] Last Admin: 05/08/18 09:43 Dose: 40 mg Rosuvastatin Calcium (Crestor) 5 mg PO HS [facility] Last Admin: 05/07/18 22:56 Dose: 5 mg Senna/Docusate Sodium (Senokot S 50 Mg-8.6 Mg) 1 tab PO BID [facility] Last Admin: 05/08/18 09:43 Dose: 1 tab Thiamine HCl (Vitamin B1 Inj) 100 mg IV DAILY [facility] Last Admin: 05/08/18 09:45 Dose: 100 mg - Labs Labs: 05/08/18 07:51 05/08/18 07:30 PT 12.6 SECONDS (9.7-12.2) H 05/02/18 13:23 INR 1.2 05/02/18 13:23 APTT 128 SECONDS (21-34) H* D 05/02/18 20:39 - Head Exam Head Exam: ATRAUMATIC, NORMAL INSPECTION - ENT Exam ENT Exam: Mucous Membranes Moist - Respiratory Exam Respiratory Exam: Clear to Ausculation Bilateral, NORMAL BREATHING PATTERN. absent: Rales, Stridor - Cardiovascular Exam Cardiovascular Exam: REGULAR RHYTHM, +S1, +S2 - GI/Abdominal Exam GI & Abdominal Exam: Soft, Normal Bowel Sounds. absent: Rigid, Tenderness - Extremities Exam Extremities Exam: Normal Inspection - Neurological Exam Neurological Exam: Altered - Skin Skin Exam: Normal Color Assessment and Plan - Assessment and Plan (Free Text) Assessment: -AMS: anoixc brain injury, no seizures indentified -Sepsis:aspiration, continue abx as per ID -diabetes: continue insulin short acting adn long acting, continue ng glucerna tube feeds -aCute respiratory failure: tolerating CPAP , Fio2 35%, offer trach for assisted ventilation -Anion gap metabolic acidosis: resolved -continue NG tube feeds -contineu dvt/pud ppx -et tube cuff leakage, replace ET tube, no leakage -prognosis poor due to poor neurological recovery -family agree with trach and peg -Patient remains hemodynamically stable -pending trach/peg
--- NOTE | 2018-05-08 15:35 | RAD ---
Date of service: 05/08/2018 HISTORY: et tube COMPARISON: Portable chest 05/08/2018, 7 a.m.. FINDINGS: LUNGS: Endotracheal tube placement is not significantly changed in the interval as well as nasogastric tube and right PICC. No active pulmonary disease. PLEURA: No significant pleural effusion identified, no pneumothorax apparent. CARDIOVASCULAR: No aortic atherosclerotic calcification present. Normal cardiac size. No pulmonary vascular congestion. OSSEOUS STRUCTURES: No significant abnormalities. VISUALIZED UPPER ABDOMEN: Normal. OTHER FINDINGS: None. IMPRESSION: No interval acute cardiopulmonary changes appreciated. Stable tubes and catheter as discussed above.
[2018-05-09] MEDS: (Novolog) Insulin Aspart, Recombinant 100 u/ml 10 ml vial SC SCH ×4 (00:28→18:27)
[2018-05-09] MEDS: metroNIDAZOLE IV 500 mg/100 ml 500 MG/100 ML BAG IVPB SCH ×4 (01:04→17:30)
[2018-05-09] MEDS: Meropenem 1 GM in Sodium Chloride 0.9% 100 ML IVPB SCH ×3 (01:46→18:36)
[2018-05-09] MEDS: Albuterol-Ipratrop 3 mg / 0.5 (3 ml) UD INH SCH ×6 (03:12→20:27)
[2018-05-09 06:16] LABS: ABG ALLEN TEST POS; ARTERIAL BLOOD GAS HCO3 26.7 mmol/L (21-28); ARTERIAL BLOOD GAS O2 SAT 99.6 % (95-98); ARTERIAL BLOOD GAS PCO2 33 mm/Hg (35-45); ARTERIAL BLOOD GAS PH 7.49 (7.35-7.45); ARTERIAL BLOOD GAS PO2 153 mm/Hg (80-100); ARTERIAL BLOOD GAS TCO2 26.1 mmol/L (22-28)
[2018-05-09 06:22] LABS: BASO # 0.3 K/uL (0.0-0.2); BASO % 1.7 % (0.0-2.0); EOS # 0.4 K/uL (0.0-0.7); EOS % 2.2 % (0.0-4.0); HEMOGLOBIN 11.4 g/dL (11.0-16.0); LYMPH # 1.7 K/uL (1.0-4.3); LYMPH % 10.6 % (20.0-40.0); MEAN CELL VOLUME 80.4 fL (81.0-99.0); MEAN CORPUSCULAR HGB CONC 32.4 g/dL (33.0-37.0); MEAN PLATELET VOLUME 12.8 fL (7.2-11.7); MONO # 1.4 K/uL (0.0-0.8); MONO % 8.7 % (0.0-10.0); NEUT # 12.4 K/uL (1.8-7.0); NEUT % 76.8 % (50.0-75.0); RBC 4.4 Mil/uL (3.80-5.20); RED CELL DISTRIBUTION WIDTH 15.7 % (11.5-14.5); WHITE BLOOD COUNT 16.2 K/uL (4.8-10.8)
[2018-05-09 06:49] LABS: ALB/GLOB RATIO 0.9 (1.0-2.1); ALBUMIN 2.8 g/dL (3.5-5.0); ALT/SGPT 67 U/L (9-52); AST/SGOT 59 U/L (14-36); BLOOD UREA NITROGEN 21 mg/dL (7-17); CALCIUM 8.2 mg/dl (8.6-10.4); GFR NON-AFRICAN AMERICAN > 60
[2018-05-09] MEDS: Sodium Chloride 0.45% 1,000 ML IV SCH ×2 (07:30→13:25)
--- NOTE | 2018-05-09 08:50 | RAD ---
Date of service: 05/09/2018 HISTORY: intubated COMPARISON: ET tube unchanged in position. Nasogastric tube further advanced into the left upper quadrant abdomen with the tip off the image. Right PICC unchanged. No interval airspace disease bilaterally. FINDINGS: LUNGS: No active pulmonary disease. PLEURA: No significant pleural effusion identified, no pneumothorax apparent. CARDIOVASCULAR: No aortic atherosclerotic calcification present. Normal cardiac size. No pulmonary vascular congestion. OSSEOUS STRUCTURES: No significant abnormalities. VISUALIZED UPPER ABDOMEN: Normal. OTHER FINDINGS: None. IMPRESSION: No interval acute cardiopulmonary disease appreciated.
--- NOTE | 2018-05-09 09:47 | CP.PCM.PN ---
Subjective - Date & Time of Evaluation Date of Evaluation: 05/09/18 Time of Evaluation: 09:44 - Subjective Subjective: Patient febrile overnight. sputum decreased Objective - Vital Signs/Intake and Output Vital Signs (last 24 hours): Temp Pulse Resp BP Pulse Ox 100.5 F H 144 H 18 114/59 L 100 05/08/18 18:30 05/08/18 19:40 05/08/18 19:40 05/08/18 19:03 05/08/18 19:40 - Medications Medications: Current Medications Albuterol/Ipratropium (Duoneb 3 Mg/0.5 Mg (3 Ml) Ud) 3 ml INH RQ4 [facility] Last Admin: 05/09/18 07:10 Dose: 3 ml Amlodipine Besylate (Norvasc) 10 mg PO DAILY [facility] Last Admin: 05/08/18 13:02 Dose: 10 mg Aspirin (Ecotrin) 81 mg PO DAILY [facility] Last Admin: 05/08/18 09:44 Dose: 81 mg Bisacodyl (Dulcolax) 10 mg [place] TID PRN PRN Reason: Constipation Dextrose (Dextrose 50% Inj) 0 ml IV STAT PRN; Protocol PRN Reason: Hypoglycemia Protocol Dextrose (Glutose 15) 15 gm PO ONCE PRN; Protocol PRN Reason: Hypoglycemia Protocol Glucagon (Glucagen Diagnostic Kit) 1 mg IM STAT PRN; Protocol PRN Reason: Hypoglycemia Protocol Heparin Sodium (Porcine) (Heparin) 5,000 units SC Q8 [facility] Last Admin: 05/09/18 07:20 Dose: 5,000 units Hydralazine HCl (Apresoline) 25 mg PO QID [facility] Last Admin: 05/08/18 22:15 Dose: 25 mg Levetiracetam 1,000 mg/ Sodium (Chloride) 110 mls @ 420 mls/hr IVPB Q12H [facility] Last Admin: 05/08/18 22:46 Dose: 420 mls/hr Vancomycin HCl 1,000 mg/ (Sodium Chloride) 200 mls @ 133.333 mls/hr IVPB Q12H [facility]; Protocol Last Admin: 05/09/18 07:19 Dose: 133.333 mls/hr Meropenem 1 gm/ Sodium (Chloride) 100 mls @ 100 mls/hr IVPB Q8H [facility]; Protocol Last Admin: 05/09/18 01:46 EST Dose: 100 mls/hr Dextrose (Dextrose 5% In Water 1000 Ml) 1,000 mls @ 0 mls/hr IV .Q0M PRN; Protocol PRN Reason: Hypoglycemia Protocol Metronidazole (Flagyl) 500 mg in 100 mls @ 100 mls/hr IVPB Q8H [facility]; Protocol Last Admin: 05/09/18 01:04 EST Dose: Not Given Sodium Chloride (Sodium Chloride 0.45%) 1,000 mls @ 75 mls/hr IV .[id number] [facility] Last Admin: 05/09/18 07:30 Dose: 75 mls/hr Ibuprofen (Motrin Oral Susp) 200 mg PO Q6H PRN PRN Reason: Fever >100.4 F Last Admin: 05/05/18 20:00 Dose: 200 mg Insulin Aspart (Novolog) 0 unit SC Q6 [facility]; Protocol Last Admin: 05/09/18 07:20 Dose: 3 units Insulin Glargine (Lantus) 10 unit SC DAILY [facility] Last Admin: 05/08/18 09:46 Dose: 10 u Labetalol HCl (Trandate) 10 mg IVP Q4H PRN PRN Reason: Systolic Blood Pressure Last Admin: 05/08/18 12:39 Dose: 10 mg Lactobacillus Acidophilus (Bacid Acidophilus) 1 cap PO BID [facility] Last Admin: 05/08/18 18:04 Dose: 1 cap Lactulose (Enulose) 20 gm PO DAILY PRN PRN Reason: Constipation Lorazepam (Ativan) 1 mg IVP Q4 PRN PRN Reason: Restlessness Last Admin: 05/09/18 00:32 Dose: 1 mg Metoprolol Tartrate (Lopressor) 75 mg PO BID [facility] Last Admin: 05/08/18 18:10 Dose: 75 mg Pantoprazole Sodium (Protonix Susp) 40 mg NG DAILY [facility] Last Admin: 05/08/18 09:43 Dose: 40 mg Rosuvastatin Calcium (Crestor) 5 mg PO HS [facility] Last Admin: 05/08/18 22:15 Dose: 5 mg Senna/Docusate Sodium (Senokot S 50 Mg-8.6 Mg) 1 tab PO BID [facility] Last Admin: 05/08/18 18:42 Dose: 1 tab Thiamine HCl (Vitamin B1 Inj) 100 mg IV DAILY [facility] Last Admin: 05/08/18 09:45 Dose: 100 mg - Labs Labs: 05/09/18 06:18 05/09/18 06:18 PT 12.6 SECONDS (9.7-12.2) H 05/02/18 13:23 INR 1.2 05/02/18 13:23 APTT 128 SECONDS (21-34) H* D 05/02/18 20:39 - Constitutional Appears: No Acute Distress - Head Exam Head Exam: ATRAUMATIC - Eye Exam Pupil Exam: PERRL - Respiratory Exam Respiratory Exam: Clear to Ausculation Bilateral, NORMAL BREATHING PATTERN - Cardiovascular Exam Cardiovascular Exam: REGULAR RHYTHM, +S1, +S2 - GI/Abdominal Exam GI & Abdominal Exam: Normal Bowel Sounds - Extremities Exam Extremities Exam: Normal Inspection, Pedal Edema - Neurological Exam Neurological Exam: Altered - Skin Skin Exam: Normal Color Assessment and Plan - Assessment and Plan (Free Text) Assessment: -AMS: anoxic brain injury, no seizures, moves extremities -Sepsis:aspiration, continue abx as per ID -diabetes: continue insulin short acting adn long acting, continue ng glucerna tube feeds -aCute respiratory failure: tolerating CPAP , Fio2 35%, offer trach for half-way ventilation -Anion gap metabolic acidosis: resolved -continue NG tube feeds -contineu dvt/pud ppx -prognosis poor due to poor neurological recovery -family agree with trach and peg -Patient remains hemodynamically stable -pending trach/peg
[2018-05-09] MEDS: Pantoprazole 40 mg Susp UD NG SCH (10:06)
[2018-05-09] MEDS: (Lantus) Insulin Glargine, Recombinant SC SCH (10:08)
[2018-05-09] MEDS: Lactobacillus Acidophilus 500 MU Cap PO SCH ×2 (10:10→18:24)
[2018-05-09] MEDS: Thiamine 100 mg/ml Inj IV SCH (10:30)
[2018-05-09] MEDS: levETIRAcetam 1,000 MG in Sodium Chloride 0.9% 100 ML IVPB SCH ×2 (11:51→22:34)
[2018-05-09] MEDS: Docusate-Senna 50 mg-8.6 mg Tab PO SCH ×2 (11:58→18:24)
[2018-05-09] MEDS: Labetalol 5mg/ml (4ml) IVP PRN (16:42)
--- NOTE | 2018-05-09 17:12 | CP.PCM.PN ---
Subjective - Date & Time of Evaluation Date of Evaluation: 05/09/18 Time of Evaluation: 08:30 - Subjective Subjective: Hospitalist Progress Note Patient was seen and examined at 8:30 AM 05/09/18 ICU Bed #18 General: Intubated on vent, nonresponsive HEENT: NCA, Pupils are round and reactive to light, NO cervical/supraclavicular/submandibular lymphadenopathy, Right mid to lateral neck there is a 1 mm thick eschar Cardio: NS1 and NS2, NO M/R/G Respiratory: Diffuse course breath sounds bilaterallly GI: BSx4 are decreased, Soft, ND, NO HSM, NO guarding Ext: Pulses are strong and equal, Capillary Refill is 2 seconds, Nonpitting edema noted in the bilateral hands/arms Neuro: exam not possible at this time Skin: multiple areas of bruising noted at IV attempts on Right antecubittal fossa, Left anterior lower lateral arm is an eschar that appears to be square in nature which has been noted by nursing since 05/04/18 (possible fluid filled blister that reptured: no signs of surrounding cellulitis) 1.Respiratory Failure Due to Asphyxiation/Possible Suicide Attempt Intubated and on vent [place] [employer] were made aware by admitting team 2. NSTEMI Elevated troponin ASA 81 mg PO 1x/day Crestor 5 mg PO 1x/day Dr Gay consulted 3. Leukocytosis Likely Secondary to Aspiration Pneumonia Chest X Ray upon admission indicated Right Lung Infiltrate Current Chest X Ray 05/09/18 shows no active disease Blood Culture 05/02/18 is negative at 5 days Urine Culture 05/06/18 shows NO growth Tracheal Aspirate 05/08/18 results are pending She continues to have fevers requiring cooling blanket Flagyl 500 mg IV Q8H Meropenem 500 mg IV Q8H Vancomycin 1 gm IV Q12H 4. Anoxic Brain Injury EEG showed diffuse encephalopathy with burst suppression. Repeat CT head-no bleeding MRI Brain: most compatible with subacute favored over acute cereberal hypoxic insult with minimal involvement of the lower haris and the cerebellar hemispheres Levatiracetam 1,000 mg IV Q12H Neurology Dr. Duff/[place] 5. Transaminitis Likely shock liver Follow LFTs 6. Diabetes mellitus Lantus 10 Units SC 1x/day Aspart ISS Q6H 7. ARF Likely Secondary to ATN with Hypernatremia Treated with 1/2 NS which was stopped 05/06/18 Na has normalized BUN/Cr have improved [employer] Dr. Samuels 8. HTN Nicardipine Drip stopped 05/06/18 Hydralazine 25 mg PO TID Metoprolol Tartrate 75 mg PO BID Norvasc 5 mg PO 1x/day Labetalol 10 mg IV Q4H PRN SBP > 140 9. Hyponatremia 1/2 NS @75 ml/hour 250 mL Free Water flushes via NG Q6H 10. Prophylaxis Heparin 5,000 Units SC Q8H Protonix 40 mg NGT Feeding Glucerna with goal of 50 ml/hr Dulcolax 10 mg IN TID PRN (patient has not had a bowel movement) 05/07/18: Palliative Care Nurse Chucho had family meeting with , son, and sister earlier this morning and they have tentatively agreed to have Trach and PEG placed. Spoke with Surgery Team and tentatively Trach and PEG is planned for Thursday/Thursday. Please see Nurse Rankin's note for details Patient is uninsured and is citizien of [facility] and has insurance through his work as per conversation with Sudheer Hodge. 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 05/08/18: Spoke with Sisters Trinh (who speaks Luxembourgish and translated) and Yamileth and Son Mahendra. Explained what anoxic brain injury was and went over the other diagnosises as documented above in Assessment and Plan. 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 Also explained to them the poor prognosis considering the anoxic brain injury. Representatives from the [place] [employer] spoke with ICU Attending and myself and are also speaking with the family members that were present at bedside today: Trinh, Yamileth, Mahendra. 05/09/18: Son Mahendra and Sister Yamileth at bedside at time of my exam. NO new changes to reported to them Vick Kerns D.O. Objective - Vital Signs/Intake and Output Vital Signs (last 24 hours): Temp Pulse Resp BP Pulse Ox 100.2 F H 102 H 22 195/81 H 99 05/09/18 12:00 05/09/18 16:31 05/09/18 16:31 05/09/18 16:31 05/09/18 16:31 Intake and Output: 05/09/18 05/09/18 06:59 18:59 Intake Total 1450 Output Total 420 Balance 1030 - Medications Medications: Current Medications Albuterol/Ipratropium (Duoneb 3 Mg/0.5 Mg (3 Ml) Ud) 3 ml INH RQ4 [facility] Last Admin: 05/09/18 15:46 Dose: 3 ml Amlodipine Besylate (Norvasc) 10 mg PO DAILY [facility] Last Admin: 05/09/18 10:11 Dose: Not Given Aspirin (Ecotrin) 81 mg PO DAILY [facility] Last Admin: 05/09/18 10:06 Dose: 81 mg Bisacodyl (Dulcolax) 10 mg IN TID PRN PRN Reason: Constipation Dextrose (Dextrose 50% Inj) 0 ml IV STAT PRN; Protocol PRN Reason: Hypoglycemia Protocol Dextrose (Glutose 15) 15 gm PO ONCE PRN; Protocol PRN Reason: Hypoglycemia Protocol Glucagon (Glucagen Diagnostic Kit) 1 mg IM STAT PRN; Protocol PRN Reason: Hypoglycemia Protocol Heparin Sodium (Porcine) (Heparin) 5,000 units SC Q8 [facility] Last Admin: 05/09/18 14:27 Dose: 5,000 units Levetiracetam 1,000 mg/ Sodium (Chloride) 110 mls @ 420 mls/hr IVPB Q12H [facility] Last Admin: 05/09/18 11:51 Dose: 420 mls/hr Vancomycin HCl 1,000 mg/ (Sodium Chloride) 200 mls @ 133.333 mls/hr IVPB Q12H [facility]; Protocol Last Admin: 05/09/18 07:19 Dose: 133.333 mls/hr Meropenem 1 gm/ Sodium (Chloride) 100 mls @ 100 mls/hr IVPB Q8H [facility]; Protocol Last Admin: 05/09/18 10:07 Dose: 100 mls/hr Dextrose (Dextrose 5% In Water 1000 Ml) 1,000 mls @ 0 mls/hr IV .Q0M PRN; Protocol PRN Reason: Hypoglycemia Protocol Metronidazole (Flagyl) 500 mg in 100 mls @ 100 mls/hr IVPB Q8H [facility]; Protocol Last Admin: 05/09/18 10:06 Dose: 100 mls/hr Sodium Chloride (Sodium Chloride 0.45%) 1,000 mls @ 75 mls/hr IV .[id number] [facility] Last Admin: 05/09/18 13:25 Dose: Not Given Ibuprofen (Motrin Oral Susp) 200 mg PO Q6H PRN PRN Reason: Fever >100.4 F Last Admin: 05/05/18 20:00 Dose: 200 mg Insulin Aspart (Novolog) 0 unit SC Q6 [facility]; Protocol Last Admin: 05/09/18 12:18 Dose: 3 units Insulin Glargine (Lantus) 10 unit SC DAILY [facility] Last Admin: 05/09/18 10:08 Dose: 10 u Labetalol HCl (Trandate) 10 mg IVP Q4H PRN PRN Reason: Systolic Blood Pressure Last Admin: 05/09/18 16:42 Dose: 10 mg Lactobacillus Acidophilus (Bacid Acidophilus) 1 cap PO BID [facility] Last Admin: 05/09/18 10:10 Dose: 1 cap Lactulose (Enulose) 20 gm PO DAILY PRN PRN Reason: Constipation Last Admin: 05/09/18 10:10 Dose: 20 gm Lorazepam (Ativan) 1 mg IVP Q4 PRN PRN Reason: Restlessness Last Admin: 05/09/18 00:32 Dose: 1 mg Metoprolol Tartrate (Lopressor) 75 mg PO BID [facility] Last Admin: 05/09/18 10:08 Dose: Not Given Pantoprazole Sodium (Protonix Susp) 40 mg NG DAILY [facility] Last Admin: 05/09/18 10:06 Dose: 40 mg Rosuvastatin Calcium (Crestor) 5 mg PO HS [facility] Last Admin: 05/08/18 22:15 Dose: 5 mg Senna/Docusate Sodium (Senokot S 50 Mg-8.6 Mg) 1 tab PO BID [facility] Last Admin: 05/09/18 11:58 Dose: 1 tab Thiamine HCl (Vitamin B1 Inj) 100 mg IV DAILY [facility] Last Admin: 05/09/18 10:30 Dose: 100 mg - Labs Labs: 05/09/18 06:05/09/18 06:18 PT 12.6 SECONDS (9.7-12.2) H 05/02/18 13:23 INR 1.2 05/02/18 13:23 APTT 128 SECONDS (21-34) H* D 05/02/18 20:39
[2018-05-10] MEDS: Albuterol-Ipratrop 3 mg / 0.5 (3 ml) UD INH SCH ×6 (00:10→19:41)
[2018-05-10] MEDS: metroNIDAZOLE IV 500 mg/100 ml 500 MG/100 ML BAG IVPB SCH ×3 (01:27→18:07)
[2018-05-10] MEDS: Sodium Chloride 0.45% 1,000 ML IV SCH ×2 (01:30→02:45)
[2018-05-10] MEDS: Meropenem 1 GM in Sodium Chloride 0.9% 100 ML IVPB SCH ×3 (02:29→18:06)
[2018-05-10] MEDS: (Novolog) Insulin Aspart, Recombinant 100 u/ml 10 ml vial SC SCH ×4 (06:00→18:07)
[2018-05-10 06:16] LABS: ABG ALLEN TEST POS; ARTERIAL BLOOD GAS HCO3 25.9 mmol/L (21-28); ARTERIAL BLOOD GAS HEMOGLOBIN 10.6 g/dL (11.7-17.4); ARTERIAL BLOOD GAS O2 SAT 99.3 % (95-98); ARTERIAL BLOOD GAS PCO2 35 mm/Hg (35-45); ARTERIAL BLOOD GAS PH 7.46 (7.35-7.45); ARTERIAL BLOOD GAS PO2 154 mm/Hg (80-100)
[2018-05-10 06:41] LABS: BASO # 0.1 K/uL (0.0-0.2); BASO % 1.1 % (0.0-2.0); EOS # 0.3 K/uL (0.0-0.7); EOS % 2.4 % (0.0-4.0); HEMOGLOBIN 9.8 g/dL (11.0-16.0); LYMPH # 1.6 K/uL (1.0-4.3); LYMPH % 13.5 % (20.0-40.0); MEAN CELL VOLUME 80.2 fL (81.0-99.0); MEAN CORPUSCULAR HEMOGLOBIN 26.2 pg (27.0-31.0); MEAN CORPUSCULAR HGB CONC 32.7 g/dL (33.0-37.0); MEAN PLATELET VOLUME 13.2 fL (7.2-11.7); MONO # 0.8 K/uL (0.0-0.8); MONO % 6.9 % (0.0-10.0); NEUT % 76.1 % (50.0-75.0); RBC 3.73 Mil/uL (3.80-5.20); RED CELL DISTRIBUTION WIDTH 15.7 % (11.5-14.5); WHITE BLOOD COUNT 11.9 K/uL (4.8-10.8)
[2018-05-10 06:54] LABS: ALB/GLOB RATIO 0.8 (1.0-2.1); ALBUMIN 2.4 g/dL (3.5-5.0); ALT/SGPT 61 U/L (9-52); AST/SGOT 57 U/L (14-36); BLOOD UREA NITROGEN 17 mg/dL (7-17); CALCIUM 7.8 mg/dl (8.6-10.4); GFR NON-AFRICAN AMERICAN > 60
[2018-05-10] MEDS: Thiamine 100 mg/ml Inj IV SCH (09:43)
[2018-05-10] MEDS: Lactobacillus Acidophilus 500 MU Cap PO SCH ×2 (09:44→18:06)
[2018-05-10] MEDS: (Lantus) Insulin Glargine, Recombinant SC SCH (09:45)
[2018-05-10] MEDS: Docusate-Senna 50 mg-8.6 mg Tab PO SCH ×2 (09:45→18:09)
[2018-05-10] MEDS: Pantoprazole 40 mg Susp UD NG SCH (09:46)
[2018-05-10] MEDS: levETIRAcetam 1,000 MG in Sodium Chloride 0.9% 100 ML IVPB SCH ×2 (10:46→23:05)
--- NOTE | 2018-05-10 11:19 | CP.PCM.PN ---
Subjective - Date & Time of Evaluation Date of Evaluation: 05/10/18 Time of Evaluation: 10:00 - Subjective Subjective: Lamont Barclay, PGY-[address] Gay Patient seen and evaluated at bedside. No acute events reported overnight. Patient mechanically ventilated. Eyes open spontaneously. Objective - Vital Signs/Intake and Output Vital Signs (last 24 hours): Temp Pulse Resp BP Pulse Ox 98.1 F 85 20 106/54 L 100 05/10/18 08:00 05/10/18 10:03 05/10/18 10:03 05/10/18 10:03 05/10/18 10:03 Intake and Output: 05/10/18 05/10/18 06:59 18:59 Intake Total 1775 575 Output Total 975 240 Balance 800 335 - Medications Medications: Current Medications Albuterol/Ipratropium (Duoneb 3 Mg/0.5 Mg (3 Ml) Ud) 3 ml INH RQ4 [facility] Last Admin: 05/10/18 07:35 Dose: 3 ml Amlodipine Besylate (Norvasc) 10 mg PO DAILY [facility] Last Admin: 05/10/18 09:45 Dose: 10 mg Aspirin (Ecotrin) 81 mg PO DAILY [facility] Last Admin: 05/10/18 09:45 Dose: 81 mg Bisacodyl (Dulcolax) 10 mg DC TID PRN PRN Reason: Constipation Last Admin: 05/10/18 09:45 Dose: 10 mg Dextrose (Dextrose 50% Inj) 0 ml IV STAT PRN; Protocol PRN Reason: Hypoglycemia Protocol Dextrose (Glutose 15) 15 gm PO ONCE PRN; Protocol PRN Reason: Hypoglycemia Protocol Glucagon (Glucagen Diagnostic Kit) 1 mg IM STAT PRN; Protocol PRN Reason: Hypoglycemia Protocol Heparin Sodium (Porcine) (Heparin) 5,000 units SC Q8 [facility] Last Admin: 05/10/18 05:22 Dose: 5,000 units Levetiracetam 1,000 mg/ Sodium (Chloride) 110 mls @ 420 mls/hr IVPB Q12H [facility] Last Admin: 05/10/18 10:46 Dose: 420 mls/hr Meropenem 1 gm/ Sodium (Chloride) 100 mls @ 100 mls/hr IVPB Q8H [facility]; Protocol Last Admin: 05/10/18 10:44 Dose: 100 mls/hr Dextrose (Dextrose 5% In Water 1000 Ml) 1,000 mls @ 0 mls/hr IV .Q0M PRN; Protocol PRN Reason: Hypoglycemia Protocol Metronidazole (Flagyl) 500 mg in 100 mls @ 100 mls/hr IVPB Q8H [facility]; Protocol Last Admin: 05/10/18 10:01 Dose: 100 mls/hr Ibuprofen (Motrin Oral Susp) 200 mg PO Q6H PRN PRN Reason: Fever >100.4 F Last Admin: 05/05/18 20:00 Dose: 200 mg Insulin Aspart (Novolog) 0 unit SC Q6 [facility]; Protocol Last Admin: 05/10/18 06:00 Dose: Not Given Insulin Glargine (Lantus) 10 unit SC DAILY [facility] Last Admin: 05/10/18 09:45 Dose: 10 u Labetalol HCl (Trandate) 10 mg IVP Q4H PRN PRN Reason: Systolic Blood Pressure Last Admin: 05/09/18 16:42 Dose: 10 mg Lactobacillus Acidophilus (Bacid Acidophilus) 1 cap PO BID [facility] Last Admin: 05/10/18 09:44 Dose: 1 cap Lactulose (Enulose) 20 gm PO DAILY PRN PRN Reason: Constipation Last Admin: 05/10/18 09:45 Dose: 20 gm Lorazepam (Ativan) 1 mg IVP Q4 PRN PRN Reason: Restlessness Last Admin: 05/09/18 00:32 Dose: 1 mg Metoprolol Tartrate (Lopressor) 75 mg PO BID [facility] Last Admin: 05/10/18 09:44 Dose: 75 mg Pantoprazole Sodium (Protonix Susp) 40 mg NG DAILY [facility] Last Admin: 05/10/18 09:46 Dose: 40 mg Rosuvastatin Calcium (Crestor) 5 mg PO HS [facility] Last Admin: 05/09/18 21:22 Dose: 5 mg Senna/Docusate Sodium (Senokot S 50 Mg-8.6 Mg) 1 tab PO BID [facility] Last Admin: 05/10/18 09:45 Dose: 1 tab Thiamine HCl (Vitamin B1 Inj) 100 mg IV DAILY [facility] Last Admin: 05/10/18 09:43 Dose: 100 mg - Labs Labs: 05/10/18 06:27 05/10/18 06:27 PT 12.6 SECONDS (9.7-12.2) H 05/02/18 13:23 INR 1.2 05/02/18 13:23 APTT 128 SECONDS (21-34) H* D 05/02/18 20:39 - Additional Findings Additional findings: Pupils: Positive for: PERRL, eyes open spontaneously Extroacular Muscles: Negative for: EOMI (unable to be assessed) Conjunctiva: Positive for: Normal Mouth: Positive for: Moist Mucous Membranes Pulm: Diffuse course breath sounds bilaterallly Neck: Positive for: Trachea Midline, hyperpigmented circumferential ligation around neck). Negative for: Meningeal Signs Cardiovascular: Positive for: Normal S1, S2, Tachycardic Abdomen: Negative for: Distention, Rebound, Guarding Skin: Positive for: Warm, Dry, Normal Color, unchanged Left anterior lower lateral arm eschar Psychiatric: Negative for: Alert, Oriented x 3 Assessment and Plan - Assessment and Plan (Free Text) Assessment: Assessment: 52 F with suspected suicide attempt who presents with anoxic brain injury. Elevated Troponins - 3rd Trop elevated to 5.06 05/02 - Echo report shows normal EF 65-70% with normal systolic function - pro BNP 35 - Heparin SC Hypertensive Urgency/Emergency - Permissive HTN per Neuro - Nicardipine 5 mg/hr drip continued - F/u MRI brain results at [place] - CT head showed stable poor cortical medullary differentiation - Statin, Lopressor, Amlodipine, Labetalol when sBP > 140 per ICU team - Hgb drop to 9.8 today from 11.4 yesterday. ASA held - Continue to monitor Patient seen, case reviewed, and plan discussed with Dr. Gay. Future recs per Dr. Gay. Lamont Barclay, PGY-1
--- NOTE | 2018-05-10 13:13 | CP.CCUPN ---
<Marycruz Plasencia - Last Filed: 05/10/18 16:23> CCU Subjective - Physician Review Events Since Last Encounter (Free Text): 05/10/18 13:12 No acute events overnight Subjective (Free Text): 05/10/18 13:12 PGY1 Critical Care Progress Note for Dr. Renae Patient seen and examined at bedside this morning. Family at bedside. Patient mechanically ventilated. Patient is posturing, some response to pain today. Per patient's family, patient opened her eyes to name earlier today. Otherwise, no acute events overnight, per nurse. Unable to obtained ROS due to clinical condition. Patient is scheduled for tracheostomy and PEG tomorrow, per surgery. Critical Care Time Spent (in minutes): 35 CCU Objective - Vital Signs / Intake & Output Vital Signs (Last 4 hours): Vital Signs Pulse Resp BP Pulse Ox 05/10/18 11:15 66 18 100 05/10/18 11:03 65 18 136/71 100 05/10/18 11:00 150 H 19 100 05/10/18 10:45 69 22 99 05/10/18 10:30 78 23 100 05/10/18 10:15 67 18 100 05/10/18 10:03 85 20 106/54 L 100 05/10/18 10:00 89 23 100 05/10/18 09:45 110 H 28 H 97 05/10/18 09:44 162/68 H 05/10/18 09:34 102 H 29 H 162/68 H 99 05/10/18 09:30 112 H 30 H 100 05/10/18 09:15 108 H 28 H 100 Intake and Output (Last 8hrs): Intake & Output 05/09/18 05/10/18 05/10/18 22:59 06:59 14:59 Intake Total 1550 1075 875 Output Total 910 540 400 Balance 640 535 475 Weight 154 lb 15.759 oz Intake: Intake, IV Amount 900 725 575 Right PICC 600 725 200 Right Proximal Port PICC 300 375 Tube Feeding 400 100 200 Other 250 250 100 Output: Urine 910 540 400 Urethral (Alvarado) 910 540 400 Oral Regurgitation 0 Other: # Bowel Movements 0 - Physical Exam Pupils: Positive for: PERRL Extroacular Muscles: Negative for: EOMI Conjunctiva: Positive for: Normal Mouth: Positive for: Moist Mucous Membranes Nose (External): Positive for: Atraumatic. Negative for: Lesions Nose (Internal): Positive for: Normal Inspection, No Active Bleeding Neck: Positive for: Trachea Midline, Other (skin changes ( reddish/hyperpigmented) consisent with ligation around neck ). Negative for: Meningeal Signs Cardiovascular: Positive for: Normal S1, S2, Tachycardic Abdomen: Negative for: Distention, Rebound, Guarding Breast/Axillary: Positive for: Other (Bruising in axillae bilaterally ) Lower Extremity: Positive for: Normal Inspection. Negative for: Edema Neurological: Positive for: Other (GCS=6T). Negative for: CN II-XII Intact Skin: Positive for: Warm, Dry, Normal Color Psychiatric: Negative for: Alert, Oriented x 3 - Medications Active Medications: Active Medications Generic Name Dose Route Start Last Admin Trade Name Freq PRN Reason Stop Dose Admin Albuterol/Ipratropium 3 ml 05/02/18 04:00 05/10/18 07:35 Duoneb 3 Mg/0.5 Mg (3 Ml) Ud INH 3 ml RQ4 BETH Administration Amlodipine Besylate 10 mg 05/07/18 10:00 05/10/18 09:45 Norvasc PO 10 mg DAILY BETH Administration Aspirin 81 mg 05/02/18 10:00 05/10/18 09:45 Ecotrin PO 81 mg DAILY BETH Administration Bisacodyl 10 mg 05/07/18 08:19 05/10/18 09:45 Dulcolax SC 10 mg TID PRN Administration Constipation Dextrose 0 ml 05/03/18 12:05 Dextrose 50% Inj IV STAT PRN Hypoglycemia Protocol Protocol Dextrose 15 gm 05/03/18 12:05 Glutose 15 PO ONCE PRN Hypoglycemia Protocol Protocol Glucagon 1 mg 05/03/18 12:05 Glucagen Diagnostic Kit IM STAT PRN Hypoglycemia Protocol Protocol Heparin Sodium (Porcine) 5,000 units 05/03/18 14:00 05/10/18 05:22 Heparin SC 5,000 units Q8 BETH Administration Levetiracetam 1,000 mg/ Sodium 110 mls @ 420 mls/hr 05/02/18 11:30 05/10/18 10:46 Chloride IVPB 420 mls/hr Q12H BETH Administration Meropenem 1 gm/ Sodium 100 mls @ 100 mls/hr 05/02/18 18:30 05/10/18 10:44 Chloride IVPB 100 mls/hr Q8H BETH Administration Protocol Dextrose 1,000 mls @ 0 mls/hr 05/05/18 13:57 Dextrose 5% In Water 1000 Ml IV .Q0M PRN Hypoglycemia Protocol Protocol Per Protocol Metronidazole 500 mg in 100 mls @ 100 mls/hr 05/06/18 10:00 05/10/18 10:01 Flagyl IVPB 100 mls/hr Q8H BETH Administration Protocol Ibuprofen 200 mg 05/05/18 17:37 05/05/18 20:00 Motrin Oral Susp PO 200 mg Q6H PRN Administration Fever >100.4 F Insulin Aspart 0 unit 05/03/18 18:00 05/10/18 11:36 Novolog SC 4 units Q6 BETH Administration Protocol Insulin Glargine 10 unit 05/06/18 10:00 05/10/18 09:45 Lantus SC 10 u DAILY BETH Administration Labetalol HCl 10 mg 05/06/18 17:31 05/09/18 16:42 Trandate IVP 10 mg Q4H PRN Administration Systolic Blood Pressure Lactobacillus Acidophilus 1 cap 05/07/18 10:00 05/10/18 09:44 Bacid Acidophilus PO 1 cap BID BETH Administration Lactulose 20 gm 05/09/18 08:55 05/10/18 09:45 Enulose PO 20 gm DAILY PRN Administration Constipation Lorazepam 1 mg 05/07/18 21:18 05/09/18 00:32 Ativan IVP 1 mg Q4 PRN Administration Restlessness Metoprolol Tartrate 75 mg 05/06/18 18:04 05/10/18 09:44 Lopressor PO 75 mg BID BETH Administration Pantoprazole Sodium 40 mg 05/06/18 10:00 05/10/18 09:46 Protonix Susp NG 40 mg DAILY BETH Administration Rosuvastatin Calcium 5 mg 05/03/18 22:00 05/09/18 21:22 Crestor PO 5 mg HS BETH Administration Senna/Docusate Sodium 1 tab 05/07/18 18:00 05/10/18 09:45 Senokot S 50 Mg-8.6 Mg PO 1 tab BID BETH Administration Thiamine HCl 100 mg 05/03/18 10:45 11/05/18 09:43 Vitamin B1 Inj IV 100 mg DAILY BETH Administration - Patient Studies Lab Studies: Microbiology Studies 05/08/18 18:39 Gram Stain - Final Trachasp Sputum Culture - Final Yeast Species Lab Studies 05/10/18 05/10/18 05/10/18 Range/Units 06:27 06:27 06:10 WBC 11.9 H (4.8-10.8) K/uL RBC 3.73 L (3.80-5.20) Mil/uL Hgb 9.8 L (11.0-16.0) g/dL Hct 29.9 L (34.0-47.0) % MCV 80.2 L (81.0-99.0) fL MCH 26.2 L (27.0-31.0) pg MCHC 32.7 L (33.0-37.0) g/dL RDW 15.7 H (11.5-14.5) % Plt Count 179 (130-400) K/uL MPV 13.2 H (7.2-11.7) fL Neut % (Auto) 76.1 H (50.0-75.0) % Lymph % (Auto) 13.5 L (20.0-40.0) % Riley % (Auto) 6.9 (0.0-10.0) % Eos % (Auto) 2.4 (0.0-4.0) % Baso % (Auto) 1.1 (0.0-2.0) % Neut # (Auto) 9.0 H (1.8-7.0) K/uL Lymph # (Auto) 1.6 (1.0-4.3) K/uL Riley # (Auto) 0.8 (0.0-0.8) K/uL Eos # (Auto) 0.3 (0.0-0.7) K/uL Baso # (Auto) 0.1 (0.0-0.2) K/uL Puncture Site Rradial pCO2 35 (35-45) mm/Hg pO2 154 H (80-100) mm/Hg HCO3 25.9 (21-28) mmol/L ABG pH 7.46 H (7.35-7.45) ABG Total CO2 26.0 (22-28) mmol/L ABG O2 Saturation 99.3 H (95-98) % ABG Base Excess 1.3 (-2.0-3.0) mmol/L ABG Hemoglobin 10.6 L (11.7-17.4) g/dL ABG Carboxyhemoglobin 1.3 (0.5-1.5) % POC ABG HHb (Measured) 0.7 (0.0-5.0) % ABG Methemoglobin 1.4 (0.0-3.0) % Erik Test Pos A-a O2 Difference 87.0 mm/Hg Respiratory Index 0.6 Hgb O2 Saturation 96.5 (95.0-98.0) % Vent Mode Simv/pc Mechanical Rate 18 FiO2 40.0 % PEEP 5 Sodium 144 (132-148) mmol/L Potassium 3.6 (3.6-5.2) mmol/L Chloride 113 H (98-107) mmol/L Carbon Dioxide 26 (22-30) mmol/L Anion Gap 8 L (10-20) BUN 17 (7-17) mg/dL Creatinine 0.8 (0.7-1.2) mg/dL Est GFR ( Amer) > 60 Est GFR (Non-Af Amer) > 60 POC Glucose (mg/dL) (65-110) mg/dL Random Glucose 216 H (65-105) mg/dL Calcium 7.8 L (8.6-10.4) mg/dl Phosphorus 2.6 (2.5-4.5) mg/dL Magnesium 2.2 (1.6-2.3) mg/dL Total Bilirubin 0.4 (0.2-1.3) mg/dL AST 57 H (14-36) U/L ALT 61 H (9-52) U/L Alkaline Phosphatase 219 H (38-126) U/L Total Protein 5.2 L (6.3-8.3) g/dL Albumin 2.4 L (3.5-5.0) g/dL Globulin 2.9 (2.2-3.9) gm/dL Albumin/Globulin Ratio 0.8 L (1.0-2.1) 05/10/18 05/09/18 05/09/18 Range/Units 05:52 23:47 18:18 WBC (4.8-10.8) K/uL RBC (3.80-5.20) Mil/uL Hgb (11.0-16.0) g/dL Hct (34.0-47.0) % MCV (81.0-99.0) fL MCH (27.0-31.0) pg MCHC (33.0-37.0) g/dL RDW (11.5-14.5) % Plt Count (130-400) K/uL MPV (7.2-11.7) fL Neut % (Auto) (50.0-75.0) % Lymph % (Auto) (20.0-40.0) % Riley % (Auto) (0.0-10.0) % Eos % (Auto) (0.0-4.0) % Baso % (Auto) (0.0-2.0) % Neut # (Auto) (1.8-7.0) K/uL Lymph # (Auto) (1.0-4.3) K/uL Riley # (Auto) (0.0-0.8) K/uL Eos # (Auto) (0.0-0.7) K/uL Baso # (Auto) (0.0-0.2) K/uL Puncture Site pCO2 (35-45) mm/Hg pO2 (80-100) mm/Hg HCO3 (21-28) mmol/L ABG pH (7.35-7.45) ABG Total CO2 (22-28) mmol/L ABG O2 Saturation (95-98) % ABG Base Excess (-2.0-3.0) mmol/L ABG Hemoglobin (11.7-17.4) g/dL ABG Carboxyhemoglobin (0.5-1.5) % POC ABG HHb (Measured) (0.0-5.0) % ABG Methemoglobin (0.0-3.0) % Erik Test A-a O2 Difference mm/Hg Respiratory Index Hgb O2 Saturation (95.0-98.0) % Vent Mode Mechanical Rate FiO2 % PEEP Sodium (132-148) mmol/L Potassium (3.6-5.2) mmol/L Chloride (98-107) mmol/L Carbon Dioxide (22-30) mmol/L Anion Gap (10-20) BUN (7-17) mg/dL Creatinine (0.7-1.2) mg/dL Est GFR ( Amer) Est GFR (Non-Af Amer) POC Glucose (mg/dL) 225 H 201 H 266 H (65-110) mg/dL Random Glucose (65-105) mg/dL Calcium (8.6-10.4) mg/dl Phosphorus (2.5-4.5) mg/dL Magnesium (1.6-2.3) mg/dL Total Bilirubin (0.2-1.3) mg/dL AST (14-36) U/L ALT (9-52) U/L Alkaline Phosphatase (38-126) U/L Total Protein (6.3-8.3) g/dL Albumin (3.5-5.0) g/dL Globulin (2.2-3.9) gm/dL Albumin/Globulin Ratio (1.0-2.1) 05/09/18 Range/Units 12:06 WBC (4.8-10.8) K/uL RBC (3.80-5.20) Mil/uL Hgb (11.0-16.0) g/dL Hct (34.0-47.0) % MCV (81.0-99.0) fL MCH (27.0-31.0) pg MCHC (33.0-37.0) g/dL RDW (11.5-14.5) % Plt Count (130-400) K/uL MPV (7.2-11.7) fL Neut % (Auto) (50.0-75.0) % Lymph % (Auto) (20.0-40.0) % Riley % (Auto) (0.0-10.0) % Eos % (Auto) (0.0-4.0) % Baso % (Auto) (0.0-2.0) % Neut # (Auto) (1.8-7.0) K/uL Lymph # (Auto) (1.0-4.3) K/uL Riley # (Auto) (0.0-0.8) K/uL Eos # (Auto) (0.0-0.7) K/uL Baso # (Auto) (0.0-0.2) K/uL Puncture Site pCO2 (35-45) mm/Hg pO2 (80-100) mm/Hg HCO3 (21-28) mmol/L ABG pH (7.35-7.45) ABG Total CO2 (22-28) mmol/L ABG O2 Saturation (95-98) % ABG Base Excess (-2.0-3.0) mmol/L ABG Hemoglobin (11.7-17.4) g/dL ABG Carboxyhemoglobin (0.5-1.5) % POC ABG HHb (Measured) (0.0-5.0) % ABG Methemoglobin (0.0-3.0) % Erik Test A-a O2 Difference mm/Hg Respiratory Index Hgb O2 Saturation (95.0-98.0) % Vent Mode Mechanical Rate FiO2 % PEEP Sodium (132-148) mmol/L Potassium (3.6-5.2) mmol/L Chloride (98-107) mmol/L Carbon Dioxide (22-30) mmol/L Anion Gap (10-20) BUN (7-17) mg/dL Creatinine (0.7-1.2) mg/dL Est GFR ( Amer) Est GFR (Non-Af Amer) POC Glucose (mg/dL) 225 H (65-110) mg/dL Random Glucose (65-105) mg/dL Calcium (8.6-10.4) mg/dl Phosphorus (2.5-4.5) mg/dL Magnesium (1.6-2.3) mg/dL Total Bilirubin (0.2-1.3) mg/dL AST (14-36) U/L ALT (9-52) U/L Alkaline Phosphatase (38-126) U/L Total Protein (6.3-8.3) g/dL Albumin (3.5-5.0) g/dL Globulin (2.2-3.9) gm/dL Albumin/Globulin Ratio (1.0-2.1) Laboratory Results - last 24 hr 05/09/18 05/09/18 05/09/18 12:06 18:18 23:47 WBC RBC Hgb Hct MCV MCH MCHC RDW Plt Count MPV Neut % (Auto) Lymph % (Auto) Riley % (Auto) Eos % (Auto) Baso % (Auto) Neut # (Auto) Lymph # (Auto) Riley # (Auto) Eos # (Auto) Baso # (Auto) Puncture Site pCO2 pO2 HCO3 ABG pH ABG Total CO2 ABG O2 Saturation ABG Base Excess ABG Hemoglobin ABG Carboxyhemoglobin POC ABG HHb (Measured) ABG Methemoglobin Erik Test A-a O2 Difference Respiratory Index Hgb O2 Saturation Vent Mode Mechanical Rate FiO2 PEEP Sodium Potassium Chloride Carbon Dioxide Anion Gap BUN Creatinine Est GFR ( Amer) Est GFR (Non-Af Amer) POC Glucose (mg/dL) 225 H 266 H 201 H Random Glucose Calcium Phosphorus Magnesium Total Bilirubin AST ALT Alkaline Phosphatase Total Protein Albumin Globulin Albumin/Globulin Ratio 05/10/18 05/10/18 05/10/18 05:52 06:10 06:27 WBC 11.9 H RBC 3.73 L Hgb 9.8 L Hct 29.9 L MCV 80.2 L MCH 26.2 L MCHC 32.7 L RDW 15.7 H Plt Count 179 MPV 13.2 H Neut % (Auto) 76.1 H Lymph % (Auto) 13.5 L Riley % (Auto) 6.9 Eos % (Auto) 2.4 Baso % (Auto) 1.1 Neut # (Auto) 9.0 H Lymph # (Auto) 1.6 Riley # (Auto) 0.8 Eos # (Auto) 0.3 Baso # (Auto) 0.1 Puncture Site Rradial pCO2 35 pO2 154 H HCO3 25.9 ABG pH 7.46 H ABG Total CO2 26.0 ABG O2 Saturation 99.3 H ABG Base Excess 1.3 ABG Hemoglobin 10.6 L ABG Carboxyhemoglobin 1.3 POC ABG HHb (Measured) 0.7 ABG Methemoglobin 1.4 Erik Test Pos A-a O2 Difference 87.0 Respiratory Index 0.6 Hgb O2 Saturation 96.5 Vent Mode Simv/pc Mechanical Rate 18 FiO2 40.0 PEEP 5 Sodium Potassium Chloride Carbon Dioxide Anion Gap BUN Creatinine Est GFR ( Amer) Est GFR (Non-Af Amer) POC Glucose (mg/dL) 225 H Random Glucose Calcium Phosphorus Magnesium Total Bilirubin AST ALT Alkaline Phosphatase Total Protein Albumin Globulin Albumin/Globulin Ratio 05/10/18 06:27 WBC RBC Hgb Hct MCV MCH MCHC RDW Plt Count MPV Neut % (Auto) Lymph % (Auto) Riley % (Auto) Eos % (Auto) Baso % (Auto) Neut # (Auto) Lymph # (Auto) Riley # (Auto) Eos # (Auto) Baso # (Auto) Puncture Site pCO2 pO2 HCO3 ABG pH ABG Total CO2 ABG O2 Saturation ABG Base Excess ABG Hemoglobin ABG Carboxyhemoglobin POC ABG HHb (Measured) ABG Methemoglobin Erik Test A-a O2 Difference Respiratory Index Hgb O2 Saturation Vent Mode Mechanical Rate FiO2 PEEP Sodium 144 Potassium 3.6 Chloride 113 H Carbon Dioxide 26 Anion Gap 8 L BUN 17 Creatinine 0.8 Est GFR ( Amer) > 60 Est GFR (Non-Af Amer) > 60 POC Glucose (mg/dL) Random Glucose 216 H Calcium 7.8 L Phosphorus 2.6 Magnesium 2.2 Total Bilirubin 0.4 AST 57 H ALT 61 H Alkaline Phosphatase 219 H Total Protein 5.2 L Albumin 2.4 L Globulin 2.9 Albumin/Globulin Ratio 0.8 L Fingerstick Blood Sugar Results: 264 Review of Systems - Review of Systems Systems not reviewed;Unavailable: Acuity of Condition Assessment/Plan - Assessment and Plan (Free Text) Assessment: This is a 52 year old female with probable past medical history of diabetes mellitus type 2 who was found unresponsive by on 05/01 (reportedly). EMS was called and patient was resuscitated and subsequently intubated on the field and brought to the ED. While in the ED: CODE STROKE was called, patient was subsequently admitted to ICU for close monitoring and evaluation for anoxic brain injury. Patient was noted on physical exam to have ring monge suggestive of suicidal attempt by hanging. [employer] is involved and state high likelihood of suicidal attempt. Patient is pending tracheostomy and PEG placement; scheduled for tomorrow, per Surgical Team. Neuro: Anoxic Brain Injury Possibly 2/2 Asphyxiation Possibly 2/2 Suicidal Attempt Via Hanging - Maintain bed elevation at 30 degrees - DDAVP 1mcg IVP once administered - [employer] involved and on case - Dr. Duff consulted: recommendations appreciated * Poor prognosis, but with some improvement in the exam * From 05/04 note: continue current management. * MRI brain: Findings most compatible with subacute favored over acute cerebral hypoxic insult with minimal involvement of the lower haris and the cerebellar hemispsheres as well. Blood flow in the basilar and bilateral cavernous internal carotid artery segments appears adequately maintained. - EEG obtained: showed diffuse encephalopathy with burst suppression - CT without contrast 05/01 official report: * Negative CT of the brain. Incidental ethmoid sinusitis. - Repeat CT without contrast 05/03 official report: * Stable poor cortical medullary differentiation with scattered edematous changes. No significant interval changes - Repeat CT without contrast 05/04 official report: * Little interval change in poor corticomedullary differentiation an indistinct appearance of the basal ganglia compatible with mild cerebral edema * Abnormal appearance of bilateral thalamocapsular regions concerning for hypoxic anoxic insult. - Patient was transferred to [facility] for MRI brain without contrast 05/05: * cortical ischemia conssistent with anoxic pattern; ischemia to the midbrain consistent with CT findings. - Continue neuro checks - Monitor CV: - Rule out ACS: serial trops Q8 negative x3 - Original EKG did not meet code heart criteria. - 3rd Trop elevated to 5.06 05/02 - pro BNP 35 - Heparin SC - ECHO official report: * LV systolic function is normal * EF > 70% * Transmitral Doppler flow pattern is Grade I- abnormal relaxation pattern - Tachycardia observed on telemetry - Nicardipine 5 mg/hr drip began this AM - Cardiology consulted; Dr. Gay; recommendations appreciated * Amlodipine 10 mg PO, Vasotec 1.25 mg IV and Metoprolol 5 mg IV given overnight. Will likely increase daily B bartolo - ASA, Statin, B-bartolo medical therapy - Continue to monitor - Monitor Pulm: Acute Respiratory Failure - on mechanical ventilation: decreased PEEP to 3 - Continue to titrate FiO2 to keep SpO2 > 92 - Continue bronchodilators - Monitor - CT chest abdomen pelvis without contrast official report: * Minimal bilateral pleural effusions * No fracture * No pneumothorax * Multifocal infiltrates at the bilateral upper and lower lobes as well as the right middle lobe in a pattern that could reflect aspiration given dependent subsegment affected Renal: Acute Renal Failure, improving - Consistent with ATN 2/2 ischemic vs septic - Government Affairs Researcher consulted, recommendations appreciated * Agree with continue IVF as NS instead on 1/2 NS as has cerebral edema * Prefer to keep serum Na on higher side. * Once cerebral edema improves; switch to 0.45% saline. - Discontinued: 0.45% saline started @200mls/hr - Good urine output - No need for dialysis at this time Metabolic Acidosis - Likely 2/2 elevated lactic acid and/or DKA and/or ETOH consumption - Glycemic control - Continue to trend lactic acid - Monitor - Continue Thiamine 100 mg IV daily GI: - No acute issues - NG tube: tube feeds (Glucerna) starting at 25 - Pepcid for Ppx - CT chest abdomen pelvis without contrast official report: * Findings suspicious for segmental colitis involving separate vascular distribution of the colon. Limited abdominal and pelvic ascites noted. No free intra peritoneal gas collection appreciable Endo: Likely history of Diabetes Mellitus Type 2: uncontrolled - ISS: moderate - Glargine 10 units IVP daily (hold prior to surgery due to holding feeds past midnight) - Hypoglycemic protocol - Accu checks Q6 - NPO diet - IVF - TSH - HgbA1c ID: Sepsis: suspect aspiration pneumonia - ID consulted (Dr. Mcgill); recommendations appreciated * Vanco - contiune * Zosyn - discontinued * Start Meropenem - Sommers culture - Serial Lactic Acid; improving - Chest X-Ray 05/03: * Improved aeration in the right lower lobe with persistent dense consolidation and presumable patchy pneumonia in the left lower lobe. * Stable position of support tubes. Dispo: Patient is pending tracheostomy and PEG placement (Surgery consulted; Dr. Adams; recommendations appreciated) Consults: General Surgery (Dr. Kerns); Cardio (Dr. Gay); Neurohospitalist; Palliative care (Yesenia); Nephro (Dr. Samuels); ID (Dr. Mcgill); vp digital marketing social media and crm; wound care; Ppx: DVT: SCD & heparin, GI: protonix Code status: FULL CODE (unknown) Next of kin: Prognosis: Very Poor Patient seen and case discussed in detail with Dr. Oc Plasencia PGY1 <Shira Renae - Last Filed: 05/10/18 19:33> CCU Objective - Vital Signs / Intake & Output Vital Signs (Last 4 hours): Vital Signs Temp Pulse Resp BP Pulse Ox 05/10/18 19:30 78 33 H 97 05/10/18 19:15 82 39 H 90 L 05/10/18 19:03 80 34 H 170/77 H 97 05/10/18 19:00 85 40 H 94 L 05/10/18 18:45 84 46 H 91 L 05/10/18 18:30 84 43 H 97 05/10/18 18:15 104 H 42 H 100 05/10/18 18:06 120/75 05/10/18 18:03 98 H 25 H 120/75 99 11/05/18 18:00 100 H 33 H 89 L 05/10/18 17:45 98 H 37 H 97 05/10/18 17:30 93 H 22 100 05/10/18 17:15 94 H 17 100 05/10/18 17:03 75 16 90/46 L 93 L 05/10/18 17:00 75 18 100 05/10/18 16:45 91 H 22 100 05/10/18 16:30 82 20 100 05/10/18 16:15 70 20 100 05/10/18 16:03 84 25 H 151/83 H 100 05/10/18 16:00 97.8 F 83 25 H 100 05/10/18 15:45 74 21 100 Intake and Output (Last 8hrs): Intake & Output 05/10/18 05/10/18 05/10/18 06:59 14:59 22:59 Intake Total 1075 1275 50 Output Total 540 1050 50 Balance 535 225 0 Weight 154 lb 15.759 oz Intake: Intake, IV Amount 725 575 Right PICC 725 200 Right Proximal Port PICC 375 Tube Feeding 100 350 50 Other 250 350 Output: Urine 540 550 50 Urethral (Alvarado) 540 550 50 Stool 500 Oral Regurgitation 0 Other: # Bowel Movements 2 0 - Medications Active Medications: Active Medications Generic Name Dose Route Start Last Admin Trade Name Freq PRN Reason Stop Dose Admin Albuterol/Ipratropium 3 ml 05/02/18 04:00 05/10/18 16:15 Duoneb 3 Mg/0.5 Mg (3 Ml) Ud INH 3 ml RQ4 BETH Administration Amlodipine Besylate 10 mg 05/07/18 10:00 05/10/18 09:45 Norvasc PO 10 mg DAILY BETH Administration Aspirin 81 mg 05/02/18 10:00 05/10/18 09:45 Ecotrin PO 81 mg DAILY BETH Administration Bisacodyl 10 mg 05/07/18 08:19 05/10/18 09:45 Dulcolax SC 10 mg TID PRN Administration Constipation Dextrose 0 ml 05/03/18 12:05 Dextrose 50% Inj IV STAT PRN Hypoglycemia Protocol Protocol Dextrose 15 gm 05/03/18 12:05 Glutose 15 PO ONCE PRN Hypoglycemia Protocol Protocol Glucagon 1 mg 05/03/18 12:05 Glucagen Diagnostic Kit IM STAT PRN Hypoglycemia Protocol Protocol Heparin Sodium (Porcine) 5,000 units 05/03/18 14:00 05/10/18 14:18 Heparin SC 5,000 units Q8 BETH Administration Levetiracetam 1,000 mg/ Sodium 110 mls @ 420 mls/hr 05/02/18 11:30 05/10/18 10:46 Chloride IVPB 420 mls/hr Q12H BETH Administration Meropenem 1 gm/ Sodium 100 mls @ 100 mls/hr 05/02/18 18:30 05/10/18 18:06 Chloride IVPB 100 mls/hr Q8H BETH Administration Protocol Dextrose 1,000 mls @ 0 mls/hr 05/05/18 13:57 Dextrose 5% In Water 1000 Ml IV .Q0M PRN Hypoglycemia Protocol Protocol Per Protocol Metronidazole 500 mg in 100 mls @ 100 mls/hr 05/06/18 10:00 05/10/18 18:07 Flagyl IVPB 100 mls/hr Q8H BETH Administration Protocol Ibuprofen 200 mg 05/05/18 17:37 05/05/18 20:00 Motrin Oral Susp PO 200 mg Q6H PRN Administration Fever >100.4 F Insulin Aspart 0 unit 05/03/18 18:00 05/10/18 18:07 Novolog SC 3 units Q6 BETH Administration Protocol Insulin Glargine 10 unit 05/06/18 10:00 05/10/18 09:45 Lantus SC 10 u DAILY BETH Administration Insulin Glargine 5 unit 05/10/18 22:00 Lantus SC 05/10/18 22:01 ONCE ONE Labetalol HCl 10 mg 05/06/18 17:31 05/09/18 16:42 Trandate IVP 10 mg Q4H PRN Administration Systolic Blood Pressure Lactobacillus Acidophilus 1 cap 05/07/18 10:00 05/10/18 18:06 Bacid Acidophilus PO 1 cap BID BETH Administration Lactulose 20 gm 05/09/18 08:55 05/10/18 09:45 Enulose PO 20 gm DAILY PRN Administration Constipation Lorazepam 1 mg 05/07/18 21:18 05/10/18 18:39 Ativan IVP 1 mg Q4 PRN Administration Restlessness Metoprolol Tartrate 75 mg 05/06/18 18:04 05/10/18 18:06 Lopressor PO 75 mg BID BETH Administration Pantoprazole Sodium 40 mg 05/06/18 10:00 05/10/18 09:46 Protonix Susp NG 40 mg DAILY BETH Administration Rosuvastatin Calcium 5 mg 05/03/18 22:00 05/09/18 21:22 Crestor PO 5 mg HS BETH Administration Senna/Docusate Sodium 1 tab 05/07/18 18:00 05/10/18 18:09 Senokot S 50 Mg-8.6 Mg PO Not Given BID BETH Thiamine HCl 100 mg 05/03/18 10:45 05/10/18 09:43 Vitamin B1 Inj IV 100 mg DAILY BETH Administration - Patient Studies Lab Studies: Microbiology Studies 05/08/18 18:39 Gram Stain - Final Trachasp Sputum Culture - Final Yeast Species Lab Studies 05/10/18 05/10/18 05/10/18 Range/Units 17:36 11:20 06:27 WBC (4.8-10.8) K/uL RBC (3.80-5.20) Mil/uL Hgb (11.0-16.0) g/dL Hct (34.0-47.0) % MCV (81.0-99.0) fL MCH (27.0-31.0) pg MCHC (33.0-37.0) g/dL RDW (11.5-14.5) % Plt Count (130-400) K/uL MPV (7.2-11.7) fL Neut % (Auto) (50.0-75.0) % Lymph % (Auto) (20.0-40.0) % Riley % (Auto) (0.0-10.0) % Eos % (Auto) (0.0-4.0) % Baso % (Auto) (0.0-2.0) % Neut # (Auto) (1.8-7.0) K/uL Lymph # (Auto) (1.0-4.3) K/uL Riley # (Auto) (0.0-0.8) K/uL Eos # (Auto) (0.0-0.7) K/uL Baso # (Auto) (0.0-0.2) K/uL Puncture Site pCO2 (35-45) mm/Hg pO2 (80-100) mm/Hg HCO3 (21-28) mmol/L ABG pH (7.35-7.45) ABG Total CO2 (22-28) mmol/L ABG O2 Saturation (95-98) % ABG Base Excess (-2.0-3.0) mmol/L ABG Hemoglobin (11.7-17.4) g/dL ABG Carboxyhemoglobin (0.5-1.5) % POC ABG HHb (Measured) (0.0-5.0) % ABG Methemoglobin (0.0-3.0) % Erik Test A-a O2 Difference mm/Hg Respiratory Index Hgb O2 Saturation (95.0-98.0) % Vent Mode Mechanical Rate FiO2 % PEEP Sodium 144 (132-148) mmol/L Potassium 3.6 (3.6-5.2) mmol/L Chloride 113 H (98-107) mmol/L Carbon Dioxide 26 (22-30) mmol/L Anion Gap 8 L (10-20) BUN 17 (7-17) mg/dL Creatinine 0.8 (0.7-1.2) mg/dL Est GFR ( Amer) > 60 Est GFR (Non-Af Amer) > 60 POC Glucose (mg/dL) 217 H 264 H (65-110) mg/dL Random Glucose 216 H (65-105) mg/dL Calcium 7.8 L (8.6-10.4) mg/dl Phosphorus 2.6 (2.5-4.5) mg/dL Magnesium 2.2 (1.6-2.3) mg/dL Total Bilirubin 0.4 (0.2-1.3) mg/dL AST 57 H (14-36) U/L ALT 61 H (9-52) U/L Alkaline Phosphatase 219 H (38-126) U/L Total Protein 5.2 L (6.3-8.3) g/dL Albumin 2.4 L (3.5-5.0) g/dL Globulin 2.9 (2.2-3.9) gm/dL Albumin/Globulin Ratio 0.8 L (1.0-2.1) 05/10/18 05/10/18 05/10/18 Range/Units 06:27 06:10 05:52 WBC 11.9 H (4.8-10.8) K/uL RBC 3.73 L (3.80-5.20) Mil/uL Hgb 9.8 L (11.0-16.0) g/dL Hct 29.9 L (34.0-47.0) % MCV 80.2 L (81.0-99.0) fL MCH 26.2 L (27.0-31.0) pg MCHC 32.7 L (33.0-37.0) g/dL RDW 15.7 H (11.5-14.5) % Plt Count 179 (130-400) K/uL MPV 13.2 H (7.2-11.7) fL Neut % (Auto) 76.1 H (50.0-75.0) % Lymph % (Auto) 13.5 L (20.0-40.0) % Riley % (Auto) 6.9 (0.0-10.0) % Eos % (Auto) 2.4 (0.0-4.0) % Baso % (Auto) 1.1 (0.0-2.0) % Neut # (Auto) 9.0 H (1.8-7.0) K/uL Lymph # (Auto) 1.6 (1.0-4.3) K/uL Riley # (Auto) 0.8 (0.0-0.8) K/uL Eos # (Auto) 0.3 (0.0-0.7) K/uL Baso # (Auto) 0.1 (0.0-0.2) K/uL Puncture Site Rradial pCO2 35 (35-45) mm/Hg pO2 154 H (80-100) mm/Hg HCO3 25.9 (21-28) mmol/L ABG pH 7.46 H (7.35-7.45) ABG Total CO2 26.0 (22-28) mmol/L ABG O2 Saturation 99.3 H (95-98) % ABG Base Excess 1.3 (-2.0-3.0) mmol/L ABG Hemoglobin 10.6 L (11.7-17.4) g/dL ABG Carboxyhemoglobin 1.3 (0.5-1.5) % POC ABG HHb (Measured) 0.7 (0.0-5.0) % ABG Methemoglobin 1.4 (0.0-3.0) % Erik Test Pos A-a O2 Difference 87.0 mm/Hg Respiratory Index 0.6 Hgb O2 Saturation 96.5 (95.0-98.0) % Vent Mode Simv/pc Mechanical Rate 18 FiO2 40.0 % PEEP 5 Sodium (132-148) mmol/L Potassium (3.6-5.2) mmol/L Chloride (98-107) mmol/L Carbon Dioxide (22-30) mmol/L Anion Gap (10-20) BUN (7-17) mg/dL Creatinine (0.7-1.2) mg/dL Est GFR ( Amer) Est GFR (Non-Af Amer) POC Glucose (mg/dL) 225 H (65-110) mg/dL Random Glucose (65-105) mg/dL Calcium (8.6-10.4) mg/dl Phosphorus (2.5-4.5) mg/dL Magnesium (1.6-2.3) mg/dL Total Bilirubin (0.2-1.3) mg/dL AST (14-36) U/L ALT (9-52) U/L Alkaline Phosphatase (38-126) U/L Total Protein (6.3-8.3) g/dL Albumin (3.5-5.0) g/dL Globulin (2.2-3.9) gm/dL Albumin/Globulin Ratio (1.0-2.1) 05/09/18 05/09/18 Range/Units 23:47 18:18 WBC (4.8-10.8) K/uL RBC (3.80-5.20) Mil/uL Hgb (11.0-16.0) g/dL Hct (34.0-47.0) % MCV (81.0-99.0) fL MCH (27.0-31.0) pg MCHC (33.0-37.0) g/dL RDW (11.5-14.5) % Plt Count (130-400) K/uL MPV (7.2-11.7) fL Neut % (Auto) (50.0-75.0) % Lymph % (Auto) (20.0-40.0) % Riley % (Auto) (0.0-10.0) % Eos % (Auto) (0.0-4.0) % Baso % (Auto) (0.0-2.0) % Neut # (Auto) (1.8-7.0) K/uL Lymph # (Auto) (1.0-4.3) K/uL Riley # (Auto) (0.0-0.8) K/uL Eos # (Auto) (0.0-0.7) K/uL Baso # (Auto) (0.0-0.2) K/uL Puncture Site pCO2 (35-45) mm/Hg pO2 (80-100) mm/Hg HCO3 (21-28) mmol/L ABG pH (7.35-7.45) ABG Total CO2 (22-28) mmol/L ABG O2 Saturation (95-98) % ABG Base Excess (-2.0-3.0) mmol/L ABG Hemoglobin (11.7-17.4) g/dL ABG Carboxyhemoglobin (0.5-1.5) % POC ABG HHb (Measured) (0.0-5.0) % ABG Methemoglobin (0.0-3.0) % Erik Test A-a O2 Difference mm/Hg Respiratory Index Hgb O2 Saturation (95.0-98.0) % Vent Mode Mechanical Rate FiO2 % PEEP Sodium (132-148) mmol/L Potassium (3.6-5.2) mmol/L Chloride (98-107) mmol/L Carbon Dioxide (22-30) mmol/L Anion Gap (10-20) BUN (7-17) mg/dL Creatinine (0.7-1.2) mg/dL Est GFR ( Amer) Est GFR (Non-Af Amer) POC Glucose (mg/dL) 201 H 266 H (65-110) mg/dL Random Glucose (65-105) mg/dL Calcium (8.6-10.4) mg/dl Phosphorus (2.5-4.5) mg/dL Magnesium (1.6-2.3) mg/dL Total Bilirubin (0.2-1.3) mg/dL AST (14-36) U/L ALT (9-52) U/L Alkaline Phosphatase (38-126) U/L Total Protein (6.3-8.3) g/dL Albumin (3.5-5.0) g/dL Globulin (2.2-3.9) gm/dL Albumin/Globulin Ratio (1.0-2.1) Laboratory Results - last 24 hr 05/09/18 05/09/18 05/10/18 18:18 23:47 05:52 WBC RBC Hgb Hct MCV MCH MCHC RDW Plt Count MPV Neut % (Auto) Lymph % (Auto) Riley % (Auto) Eos % (Auto) Baso % (Auto) Neut # (Auto) Lymph # (Auto) Riley # (Auto) Eos # (Auto) Baso # (Auto) Puncture Site pCO2 pO2 HCO3 ABG pH ABG Total CO2 ABG O2 Saturation ABG Base Excess ABG Hemoglobin ABG Carboxyhemoglobin POC ABG HHb (Measured) ABG Methemoglobin Erik Test A-a O2 Difference Respiratory Index Hgb O2 Saturation Vent Mode Mechanical Rate FiO2 PEEP Sodium Potassium Chloride Carbon Dioxide Anion Gap BUN Creatinine Est GFR ( Amer) Est GFR (Non-Af Amer) POC Glucose (mg/dL) 266 H 201 H 225 H Random Glucose Calcium Phosphorus Magnesium Total Bilirubin AST ALT Alkaline Phosphatase Total Protein Albumin Globulin Albumin/Globulin Ratio 05/10/18 05/10/18 05/10/18 06:10 06:27 06:27 WBC 11.9 H RBC 3.73 L Hgb 9.8 L Hct 29.9 L MCV 80.2 L MCH 26.2 L MCHC 32.7 L RDW 15.7 H Plt Count 179 MPV 13.2 H Neut % (Auto) 76.1 H Lymph % (Auto) 13.5 L Riley % (Auto) 6.9 Eos % (Auto) 2.4 Baso % (Auto) 1.1 Neut # (Auto) 9.0 H Lymph # (Auto) 1.6 Riley # (Auto) 0.8 Eos # (Auto) 0.3 Baso # (Auto) 0.1 Puncture Site Rradial pCO2 35 pO2 154 H HCO3 25.9 ABG pH 7.46 H ABG Total CO2 26.0 ABG O2 Saturation 99.3 H ABG Base Excess 1.3 ABG Hemoglobin 10.6 L ABG Carboxyhemoglobin 1.3 POC ABG HHb (Measured) 0.7 ABG Methemoglobin 1.4 Erik Test Pos A-a O2 Difference 87.0 Respiratory Index 0.6 Hgb O2 Saturation 96.5 Vent Mode Simv/pc Mechanical Rate 18 FiO2 40.0 PEEP 5 Sodium 144 Potassium 3.6 Chloride 113 H Carbon Dioxide 26 Anion Gap 8 L BUN 17 Creatinine 0.8 Est GFR ( Amer) > 60 Est GFR (Non-Af Amer) > 60 POC Glucose (mg/dL) Random Glucose 216 H Calcium 7.8 L Phosphorus 2.6 Magnesium 2.2 Total Bilirubin 0.4 AST 57 H ALT 61 H Alkaline Phosphatase 219 H Total Protein 5.2 L Albumin 2.4 L Globulin 2.9 Albumin/Globulin Ratio 0.8 L 05/10/18 05/10/18 11:20 17:36 WBC RBC Hgb Hct MCV MCH MCHC RDW Plt Count MPV Neut % (Auto) Lymph % (Auto) Riley % (Auto) Eos % (Auto) Baso % (Auto) Neut # (Auto) Lymph # (Auto) Riley # (Auto) Eos # (Auto) Baso # (Auto) Puncture Site pCO2 pO2 HCO3 ABG pH ABG Total CO2 ABG O2 Saturation ABG Base Excess ABG Hemoglobin ABG Carboxyhemoglobin POC ABG HHb (Measured) ABG Methemoglobin Erik Test A-a O2 Difference Respiratory Index Hgb O2 Saturation Vent Mode Mechanical Rate FiO2 PEEP Sodium Potassium Chloride Carbon Dioxide Anion Gap BUN Creatinine Est GFR ( Amer) Est GFR (Non-Af Amer) POC Glucose (mg/dL) 264 H 217 H Random Glucose Calcium Phosphorus Magnesium Total Bilirubin AST ALT Alkaline Phosphatase Total Protein Albumin Globulin Albumin/Globulin Ratio Critical Care Progress Note - Nutrition Nutrition: Nutrition Category Date Time Status NPO Diet [DIET] Diets 05/10/18 Dinner Active Attending/Attestation - Attestation I have personally seen and examined this patient.: Yes I have fully participated in the care of the patient.: Yes I have reviewed all pertinent clinical information: Yes Notes (Text): 05/10/18 19:33 for trach and peg in am
--- NOTE | 2018-05-10 16:06 | CP.PCM.PN ---
Subjective - Date & Time of Evaluation Date of Evaluation: 05/10/18 Time of Evaluation: 13:30 - Subjective Subjective: Seen and examined by me. Patient noted with some movement of her right arm and right leg for pain. Her eyes were closed.Respond to light. on vent no fever today,s/p fever yesterday temp max 1001F spoke to her son and sister at bedside trach secretion grows yeast Objective - Vital Signs/Intake and Output Vital Signs (last 24 hours): Temp Pulse Resp BP Pulse Ox 98.1 F 64 19 120/53 L 100 05/10/18 12:00 05/10/18 15:02 05/10/18 15:02 05/10/18 15:02 05/10/18 15:02 Intake and Output: 05/10/18 05/10/18 06:59 18:59 Intake Total 1775 1325 Output Total 975 1100 Balance 800 225 - Medications Medications: Current Medications Albuterol/Ipratropium (Duoneb 3 Mg/0.5 Mg (3 Ml) Ud) 3 ml INH RQ4 [facility] Last Admin: 05/10/18 07:35 Dose: 3 ml Amlodipine Besylate (Norvasc) 10 mg PO DAILY [facility] Last Admin: 05/10/18 09:45 Dose: 10 mg Aspirin (Ecotrin) 81 mg PO DAILY [facility] Last Admin: 05/10/18 09:45 Dose: 81 mg Bisacodyl (Dulcolax) 10 mg [place] TID PRN PRN Reason: Constipation Last Admin: 05/10/18 09:45 Dose: 10 mg Dextrose (Dextrose 50% Inj) 0 ml IV STAT PRN; Protocol PRN Reason: Hypoglycemia Protocol Dextrose (Glutose 15) 15 gm PO ONCE PRN; Protocol PRN Reason: Hypoglycemia Protocol Glucagon (Glucagen Diagnostic Kit) 1 mg IM STAT PRN; Protocol PRN Reason: Hypoglycemia Protocol Heparin Sodium (Porcine) (Heparin) 5,000 units SC Q8 [facility] Last Admin: 05/10/18 14:18 Dose: 5,000 units Levetiracetam 1,000 mg/ Sodium (Chloride) 110 mls @ 420 mls/hr IVPB Q12H [facility] Last Admin: 05/10/18 10:46 Dose: 420 mls/hr Meropenem 1 gm/ Sodium (Chloride) 100 mls @ 100 mls/hr IVPB Q8H [facility]; Protocol Last Admin: 05/10/18 10:44 Dose: 100 mls/hr Dextrose (Dextrose 5% In Water 1000 Ml) 1,000 mls @ 0 mls/hr IV .Q0M PRN; Protocol PRN Reason: Hypoglycemia Protocol Metronidazole (Flagyl) 500 mg in 100 mls @ 100 mls/hr IVPB Q8H [facility]; Protocol Last Admin: 05/10/18 10:01 Dose: 100 mls/hr Ibuprofen (Motrin Oral Susp) 200 mg PO Q6H PRN PRN Reason: Fever >100.4 F Last Admin: 05/05/18 20:00 Dose: 200 mg Insulin Aspart (Novolog) 0 unit SC Q6 [facility]; Protocol Last Admin: 05/10/18 11:36 Dose: 4 units Insulin Glargine (Lantus) 10 unit SC DAILY [facility] Last Admin: 05/10/18 09:45 Dose: 10 u Labetalol HCl (Trandate) 10 mg IVP Q4H PRN PRN Reason: Systolic Blood Pressure Last Admin: 05/09/18 16:42 Dose: 10 mg Lactobacillus Acidophilus (Bacid Acidophilus) 1 cap PO BID [facility] Last Admin: 05/10/18 09:44 Dose: 1 cap Lactulose (Enulose) 20 gm PO DAILY PRN PRN Reason: Constipation Last Admin: 05/10/18 09:45 Dose: 20 gm Lorazepam (Ativan) 1 mg IVP Q4 PRN PRN Reason: Restlessness Last Admin: 05/09/18 00:32 Dose: 1 mg Metoprolol Tartrate (Lopressor) 75 mg PO BID [facility] Last Admin: 05/10/18 09:44 Dose: 75 mg Pantoprazole Sodium (Protonix Susp) 40 mg NG DAILY [facility] Last Admin: 05/10/18 09:46 Dose: 40 mg Rosuvastatin Calcium (Crestor) 5 mg PO HS [facility] Last Admin: 05/09/18 21:22 Dose: 5 mg Senna/Docusate Sodium (Senokot S 50 Mg-8.6 Mg) 1 tab PO BID [facility] Last Admin: 05/10/18 09:45 Dose: 1 tab Thiamine HCl (Vitamin B1 Inj) 100 mg IV DAILY [facility] Last Admin: 05/10/18 09:43 Dose: 100 mg - Labs Labs: 05/10/18 06:27 05/10/18 06:27 PT 12.6 SECONDS (9.7-12.2) H 05/02/18 13:23 INR 1.2 05/02/18 13:23 APTT 128 SECONDS (21-34) H* D 05/02/18 20:39 - Constitutional Appears: No Acute Distress, Other (intubated on vent,poor response) - Head Exam Head Exam: absent: NORMAL INSPECTION (intubated ) - Eye Exam Eye Exam: Normal appearance, PERRL - ENT Exam ENT Exam: Mucous Membranes Moist - Neck Exam Neck Exam: absent: Full ROM, Normal Inspection (right neck escar likely due to strangulation) - Respiratory Exam Respiratory Exam: absent: Rales, Wheezes, Respiratory Distress, Stridor - Cardiovascular Exam Cardiovascular Exam: REGULAR RHYTHM - GI/Abdominal Exam GI & Abdominal Exam: Soft, Normal Bowel Sounds - Extremities Exam Extremities Exam: absent: Full ROM (spontaneous movement of left arm and leg noted) - Back Exam Back Exam: NORMAL INSPECTION - Neurological Exam Neurological Exam: absent: Awake (intubated,not onsedation,poor response) - Psychiatric Exam Psychiatric exam: absent: Normal Mood - Skin Skin Exam: Dry. absent: Intact (arm ecchymosis /iv site) Assessment and Plan - Assessment and Plan (Free Text) Plan: 1.Respiratory Failure Due to Asphyxiation/Possible Suicide Attempt Intubated and on vent [place] [employer] were made aware Going for tracheotomy tomorrow 2. NSTEMI Elevated troponin ASA 81 mg PO 1x/day Crestor 5 mg PO 1x/day Dr Gay consulted 3. Leukocytosis Likely Secondary to Aspiration Pneumonia Current Chest X Ray 05/09/18 shows no active disease Blood Culture 05/02/18 is negative at 5 days Urine Culture 05/06/18 shows NO growth Tracheal Aspirate 05/08/18 results yeast Flagyl 500 mg IV Q8H Meropenem 500 mg IV Q8H 4. Anoxic Brain Injury EEG showed diffuse encephalopathy with burst suppression. Repeat CT head-no bleeding MRI Brain: most compatible with subacute favored over acute cerebral hypoxic ins ult with minimal involvement of the lower haris and the cerebellar hemispheres Levatiracetam 1,000 mg IV Q12H Neurology Dr. Duff/[place] 5. Transaminitis Likely shock liver Follow LFTs 6. Diabetes mellitus sugar is high,we will increase lantus after GT placement Lantus 10 Units SC Aspart ISS Q6H 7. ARF Likely Secondary to ATN with Hypernatremia BUN/Cr have improved [employer] Dr. Samuels 8. HTN Metoprolol Tartrate 75 mg PO BID Norvasc 5 mg PO 1x/day Labetalol 10 mg IV Q4H PRN SBP > 140 9. Hyponatremia resolved,monitor sodium 10. Prophylaxis Heparin 5,000 Units SC Q8H Protonix 40 mg NGT Feeding hold for PEG
--- NOTE | 2018-05-10 17:26 | CP.PCM.PN ---
Subjective - Date & Time of Evaluation Date of Evaluation: 05/10/18 Time of Evaluation: 17:24 - Subjective Subjective: General Surgery Progress Note for Dr. Adams This 52F was seen and examined this AM at beside. She is GCS4T open eyes to pain. Otherwise clinically no change. Objective - Vital Signs/Intake and Output Vital Signs (last 24 hours): Temp Pulse Resp BP Pulse Ox 97.8 F 84 25 H 151/83 H 100 05/10/18 16:00 05/10/18 16:03 05/10/18 16:03 05/10/18 16:03 05/10/18 16:03 Intake and Output: 05/10/18 05/10/18 06:59 18:59 Intake Total 1775 1325 Output Total 975 1100 Balance 800 225 - Medications Medications: Current Medications Albuterol/Ipratropium (Duoneb 3 Mg/0.5 Mg (3 Ml) Ud) 3 ml INH RQ4 [facility] Last Admin: 05/10/18 16:15 Dose: 3 ml Amlodipine Besylate (Norvasc) 10 mg PO DAILY [facility] Last Admin: 05/10/18 09:45 Dose: 10 mg Aspirin (Ecotrin) 81 mg PO DAILY [facility] Last Admin: 05/10/18 09:45 Dose: 81 mg Bisacodyl (Dulcolax) 10 mg [place] TID PRN PRN Reason: Constipation Last Admin: 05/10/18 09:45 Dose: 10 mg Dextrose (Dextrose 50% Inj) 0 ml IV STAT PRN; Protocol PRN Reason: Hypoglycemia Protocol Dextrose (Glutose 15) 15 gm PO ONCE PRN; Protocol PRN Reason: Hypoglycemia Protocol Glucagon (Glucagen Diagnostic Kit) 1 mg IM STAT PRN; Protocol PRN Reason: Hypoglycemia Protocol Heparin Sodium (Porcine) (Heparin) 5,000 units SC Q8 [facility] Last Admin: 05/10/18 14:18 Dose: 5,000 units Levetiracetam 1,000 mg/ Sodium (Chloride) 110 mls @ 420 mls/hr IVPB Q12H [facility] Last Admin: 05/10/18 10:46 Dose: 420 mls/hr Meropenem 1 gm/ Sodium (Chloride) 100 mls @ 100 mls/hr IVPB Q8H [facility]; Protocol Last Admin: 05/10/18 10:44 Dose: 100 mls/hr Dextrose (Dextrose 5% In Water 1000 Ml) 1,000 mls @ 0 mls/hr IV .Q0M PRN; Protocol PRN Reason: Hypoglycemia Protocol Metronidazole (Flagyl) 500 mg in 100 mls @ 100 mls/hr IVPB Q8H [facility]; Protocol Last Admin: 05/10/18 10:01 Dose: 100 mls/hr Ibuprofen (Motrin Oral Susp) 200 mg PO Q6H PRN PRN Reason: Fever >100.4 F Last Admin: 05/05/18 20:00 Dose: 200 mg Insulin Aspart (Novolog) 0 unit SC Q6 [facility]; Protocol Last Admin: 05/10/18 11:36 Dose: 4 units Insulin Glargine (Lantus) 10 unit SC DAILY [facility] Last Admin: 05/10/18 09:45 Dose: 10 u Labetalol HCl (Trandate) 10 mg IVP Q4H PRN PRN Reason: Systolic Blood Pressure Last Admin: 05/09/18 16:42 Dose: 10 mg Lactobacillus Acidophilus (Bacid Acidophilus) 1 cap PO BID [facility] Last Admin: 05/10/18 09:44 Dose: 1 cap Lactulose (Enulose) 20 gm PO DAILY PRN PRN Reason: Constipation Last Admin: 05/10/18 09:45 Dose: 20 gm Lorazepam (Ativan) 1 mg IVP Q4 PRN PRN Reason: Restlessness Last Admin: 05/09/18 00:32 Dose: 1 mg Metoprolol Tartrate (Lopressor) 75 mg PO BID [facility] Last Admin: 05/10/18 09:44 Dose: 75 mg Pantoprazole Sodium (Protonix Susp) 40 mg NG DAILY [facility] Last Admin: 05/10/18 09:46 Dose: 40 mg Rosuvastatin Calcium (Crestor) 5 mg PO HS [facility] Last Admin: 05/09/18 21:22 Dose: 5 mg Senna/Docusate Sodium (Senokot S 50 Mg-8.6 Mg) 1 tab PO BID [facility] Last Admin: 05/10/18 09:45 Dose: 1 tab Thiamine HCl (Vitamin B1 Inj) 100 mg IV DAILY [facility] Last Admin: 05/10/18 09:43 Dose: 100 mg - Labs Labs: 05/10/18 06:27 05/10/18 06:27 PT 12.6 SECONDS (9.7-12.2) H 05/02/18 13:23 INR 1.2 05/02/18 13:23 APTT 128 SECONDS (21-34) H* D 05/02/18 20:39 - Constitutional Appears: Chronically Ill - Head Exam Additional comments: Visible bruising on neck - Eye Exam Additional comments: Dolls eye reflex - Cardiovascular Exam Cardiovascular Exam: +S1, +S2 - GI/Abdominal Exam GI & Abdominal Exam: Soft Assessment and Plan - Assessment and Plan (Free Text) Assessment: 52F anoxic brain injury NPO past midnight Trach and g-tube in OR tomorrow D/W Dr. Angie Jack PGY3
[2018-05-10] MEDS ORDERED: (Lantus) Insulin Glargine, Recombinant SC ONE (22:00)
[2018-05-11] MEDS: Albuterol-Ipratrop 3 mg / 0.5 (3 ml) UD INH SCH ×5 (01:14→20:12)
[2018-05-11] MEDS: metroNIDAZOLE IV 500 mg/100 ml 500 MG/100 ML BAG IVPB SCH ×3 (01:17→18:00)
[2018-05-11] MEDS: Meropenem 1 GM in Sodium Chloride 0.9% 100 ML IVPB SCH ×3 (02:43→18:39)
[2018-05-11 05:11] LABS: BASO # 0.1 K/uL (0.0-0.2); BASO % 0.7 % (0.0-2.0); EOS # 0.2 K/uL (0.0-0.7); EOS % 1.2 % (0.0-4.0); HEMOGLOBIN 10.5 g/dL (11.0-16.0); LYMPH # 1.3 K/uL (1.0-4.3); LYMPH % 6.8 % (20.0-40.0); MEAN CELL VOLUME 79.1 fL (81.0-99.0); MEAN CORPUSCULAR HEMOGLOBIN 26.2 pg (27.0-31.0); MEAN CORPUSCULAR HGB CONC 33.1 g/dL (33.0-37.0); MEAN PLATELET VOLUME 11.9 fL (7.2-11.7); MONO # 0.9 K/uL (0.0-0.8); MONO % 4.5 % (0.0-10.0); NEUT # 16.7 K/uL (1.8-7.0); NEUT % 86.8 % (50.0-75.0); PLATELET COUNT 202 K/uL (130-400); RED CELL DISTRIBUTION WIDTH 15.5 % (11.5-14.5); WHITE BLOOD COUNT 19.2 K/uL (4.8-10.8)
[2018-05-11 05:24] LABS: INR 1.4
[2018-05-11 05:38] LABS: ALB/GLOB RATIO 0.8 (1.0-2.1); ALBUMIN 2.7 g/dL (3.5-5.0); ALT/SGPT 65 U/L (9-52); AST/SGOT 75 U/L (14-36); BLOOD UREA NITROGEN 16 mg/dL (7-17); CALCIUM 7.9 mg/dl (8.6-10.4); GFR NON-AFRICAN AMERICAN > 60
[2018-05-11 05:51] LABS: ABG ALLEN TEST POS; ARTERIAL BLOOD GAS HCO3 25.9 mmol/L (21-28); ARTERIAL BLOOD GAS HEMOGLOBIN 10.2 g/dL (11.7-17.4); ARTERIAL BLOOD GAS O2 SAT 99.4 % (95-98); ARTERIAL BLOOD GAS PCO2 34 mm/Hg (35-45); ARTERIAL BLOOD GAS PH 7.47 (7.35-7.45); ARTERIAL BLOOD GAS PO2 151 mm/Hg (80-100); ARTERIAL BLOOD GAS TCO2 25.7 mmol/L (22-28)
[2018-05-11 05:55] LABS: BANDS 1 % (0-2); EOSINOPHIL 1 % (0-4); LYMPHOCYTE 6 % (20-40); MONOCYTE 5 % (0-10); NEUTROPHIL 87 % (50-75); PLATELET ESTIMATE NORMAL (NORMAL); TOTAL CELLS COUNTED 100
[2018-05-11] MEDS: (Novolog) Insulin Aspart, Recombinant 100 u/ml 10 ml vial SC SCH ×4 (06:08→18:39)
[2018-05-11] MEDS: Thiamine 100 mg/ml Inj IV SCH (09:55)
[2018-05-11] MEDS: Lactobacillus Acidophilus 500 MU Cap PO SCH ×2 (10:24→18:36)
[2018-05-11] MEDS: Pantoprazole 40 mg Susp UD NG SCH (10:25)
[2018-05-11] MEDS: Docusate-Senna 50 mg-8.6 mg Tab PO SCH ×2 (10:25→18:40)
[2018-05-11] MEDS: levETIRAcetam 1,000 MG in Sodium Chloride 0.9% 100 ML IVPB SCH ×2 (10:56→23:05)
[2018-05-11] MEDS ORDERED: Lidocaine/Epinephrine 1% 1:100000 10 ML IJ ONE (11:25)
[2018-05-11] MEDS ORDERED: Propofol 10 mg/ml Inj (20 ML) ONE (11:49)
--- NOTE | 2018-05-11 11:56 | CP.CCUPN ---
<Marycruz Plasencia - Last Filed: 05/11/18 14:13> CCU Subjective - Physician Review Events Since Last Encounter (Free Text): 05/11/18 11:55 No acute events overnight. Subjective (Free Text): 05/11/18 11:54 PGY1 Critical Care Progress Note for Dr. Renae Patient seen and examined at bedside this morning. Family at bedside. Patient mechanically ventilated. Patient is posturing, some response to pain today. Patient's family at bedside this morning. No acute events overnight, per nurse. Unable to obtained ROS due to clinical condition. Of note, patient is scheduled for tracheostomy and PEG today with Dr. Adams. Critical Care Time Spent (in minutes): 35 CCU Objective - Vital Signs / Intake & Output Vital Signs (Last 4 hours): Vital Signs Temp Pulse Resp BP Pulse Ox 05/11/18 11:03 72 21 108/48 L 100 05/11/18 11:00 68 18 100 05/11/18 10:45 69 15 100 05/11/18 10:30 80 19 100 05/11/18 10:15 105 H 33 H 100 05/11/18 10:13 123/65 05/11/18 10:03 100 H 25 H 123/65 100 05/11/18 10:00 102 H 24 97 05/11/18 09:45 111 H 34 H 99 05/11/18 09:30 89 22 100 05/11/18 09:15 90 19 100 05/11/18 09:03 79 19 130/72 100 05/11/18 09:00 77 18 100 05/11/18 08:45 67 18 100 05/11/18 08:30 72 19 05/11/18 08:15 75 19 100 05/11/18 08:02 67 18 99/53 L 100 05/11/18 08:00 97.9 F 69 19 100 Intake and Output (Last 8hrs): Intake & Output 05/10/18 05/11/18 05/11/18 22:59 06:59 14:59 Intake Total 800 400 420 Output Total 600 595 165 Balance 200 -195 255 Weight 156 lb 8.451 oz Intake: Intake, IV Amount 200 300 400 Right PICC 100 Right Proximal Port PICC 200 300 300 Oral 0 Tube Feeding 400 100 20 Other 200 Output: Urine 600 595 165 Urethral (Alvarado) 600 595 165 Urine/Stool Mix 0 Oral Regurgitation 0 Other: # Bowel Movements 1 0 - Physical Exam Pupils: Positive for: PERRL Extroacular Muscles: Negative for: EOMI Conjunctiva: Positive for: Normal Mouth: Positive for: Moist Mucous Membranes Nose (External): Positive for: Atraumatic. Negative for: Lesions Nose (Internal): Positive for: Normal Inspection, No Active Bleeding Neck: Positive for: Trachea Midline, Other (skin changes (reddish/hype rpigmented) consisent with ligation around neck ). Negative for: Meningeal Signs Cardiovascular: Positive for: Normal S1, S2, Tachycardic Abdomen: Negative for: Distention, Rebound, Guarding Breast/Axillary: Positive for: Other (Bruising in axillae bilaterally ) Lower Extremity: Positive for: Normal Inspection. Negative for: Edema Neurological: Positive for: Other (GCS=6T). Negative for: CN II-XII Intact Skin: Positive for: Warm, Dry, Normal Color Psychiatric: Negative for: Alert, Oriented x 3 - Medications Active Medications: Active Medications Generic Name Dose Route Start Last Admin Trade Name Freq PRN Reason Stop Dose Admin Albuterol/Ipratropium 3 ml 05/02/18 04:00 05/11/18 08:00 Duoneb 3 Mg/0.5 Mg (3 Ml) Ud INH 3 ml RQ4 BETH Administration Amlodipine Besylate 10 mg 05/07/18 10:00 05/11/18 10:14 Norvasc PO 10 mg DAILY BETH Administration Aspirin 81 mg 05/02/18 10:00 05/10/18 09:45 Ecotrin PO 81 mg DAILY BETH Administration Bisacodyl 10 mg 05/07/18 08:19 05/10/18 09:45 Dulcolax [place] 10 mg TID PRN Administration Constipation Dextrose 0 ml 05/03/18 12:05 Dextrose 50% Inj IV STAT PRN Hypoglycemia Protocol Protocol Dextrose 15 gm 05/03/18 12:05 Glutose 15 PO ONCE PRN Hypoglycemia Protocol Protocol Glucagon 1 mg 05/03/18 12:05 Glucagen Diagnostic Kit IM STAT PRN Hypoglycemia Protocol Protocol Heparin Sodium (Porcine) 5,000 units 05/03/18 14:00 05/10/18 14:18 Heparin SC 5,000 units Q8 BETH Administration Levetiracetam 1,000 mg/ Sodium 110 mls @ 420 mls/hr 05/02/18 11:30 05/11/18 10:56 Chloride IVPB 420 mls/hr Q12H BETH Administration Meropenem 1 gm/ Sodium 100 mls @ 100 mls/hr 05/02/18 18:30 05/11/18 09:56 Chloride IVPB 100 mls/hr Q8H BETH Administration Protocol Dextrose 1,000 mls @ 0 mls/hr 05/05/18 13:57 Dextrose 5% In Water 1000 Ml IV .Q0M PRN Hypoglycemia Protocol Protocol Per Protocol Metronidazole 500 mg in 100 mls @ 100 mls/hr 05/06/18 10:00 05/11/18 09:55 Flagyl IVPB 100 mls/hr Q8H BETH Administration Protocol Ibuprofen 200 mg 05/05/18 17:37 05/05/18 20:00 Motrin Oral Susp PO 200 mg Q6H PRN Administration Fever >100.4 F Insulin Aspart 0 unit 05/03/18 18:00 05/11/18 11:29 Novolog SC 3 units Q6 BETH Administration Protocol Insulin Glargine 10 unit 05/06/18 10:00 05/10/18 09:45 Lantus SC 10 u DAILY BETH Administration Labetalol HCl 10 mg 05/06/18 17:31 05/09/18 16:42 Trandate IVP 10 mg Q4H PRN Administration Systolic Blood Pressure Lactobacillus Acidophilus 1 cap 05/07/18 10:00 05/11/18 10:24 Bacid Acidophilus PO Not Given BID BETH Lactulose 20 gm 05/09/18 08:55 05/10/18 09:45 Enulose PO 20 gm DAILY PRN Administration Constipation Lorazepam 1 mg 05/07/18 21:18 05/10/18 18:39 Ativan IVP 1 mg Q4 PRN Administration Restlessness Metoprolol Tartrate 75 mg 05/06/18 18:04 05/11/18 10:13 Lopressor PO 75 mg BID BETH Administration Pantoprazole Sodium 40 mg 05/06/18 10:00 05/11/18 10:25 Protonix Susp NG Not Given DAILY BETH Rosuvastatin Calcium 5 mg 05/03/18 22:00 05/10/18 21:37 Crestor PO 5 mg HS BETH Administration Senna/Docusate Sodium 1 tab 05/07/18 18:00 05/11/18 10:25 Senokot S 50 Mg-8.6 Mg PO Not Given BID BETH Thiamine HCl 100 mg 05/03/18 10:45 05/11/18 09:55 Vitamin B1 Inj IV 100 mg DAILY BETH Administration - Patient Studies Lab Studies: Microbiology Studies 05/08/18 18:39 Gram Stain - Final Trachasp Sputum Culture - Final Yeast Species Lab Studies 05/11/18 05/11/18 05/11/18 Range/Units 11:16 10:45 05:43 WBC (4.8-10.8) K/uL RBC (3.80-5.20) Mil/uL Hgb (11.0-16.0) g/dL Hct (34.0-47.0) % MCV (81.0-99.0) fL MCH (27.0-31.0) pg MCHC (33.0-37.0) g/dL RDW (11.5-14.5) % Plt Count (130-400) K/uL MPV (7.2-11.7) fL Neut % (Auto) (50.0-75.0) % Lymph % (Auto) (20.0-40.0) % Hale % (Auto) (0.0-10.0) % Eos % (Auto) (0.0-4.0) % Baso % (Auto) (0.0-2.0) % Neut # (Auto) (1.8-7.0) K/uL Lymph # (Auto) (1.0-4.3) K/uL Hale # (Auto) (0.0-0.8) K/uL Eos # (Auto) (0.0-0.7) K/uL Baso # (Auto) (0.0-0.2) K/uL Neutrophils % (Manual) (50-75) % Band Neutrophils % (0-2) % Lymphocytes % (Manual) (20-40) % Monocytes % (Manual) (0-10) % Eosinophils % (Manual) (0-4) % Platelet Estimate (NORMAL) PT (9.7-12.2) SECONDS INR APTT (21-34) SECONDS Puncture Site pCO2 (35-45) mm/Hg pO2 (80-100) mm/Hg HCO3 (21-28) mmol/L ABG pH (7.35-7.45) ABG Total CO2 (22-28) mmol/L ABG O2 Saturation (95-98) % ABG Base Excess (-2.0-3.0) mmol/L ABG Hemoglobin (11.7-17.4) g/dL ABG Carboxyhemoglobin (0.5-1.5) % POC ABG HHb (Measured) (0.0-5.0) % ABG Methemoglobin (0.0-3.0) % Erik Test A-a O2 Difference mm/Hg Respiratory Index Hgb O2 Saturation (95.0-98.0) % Vent Mode Mechanical Rate FiO2 % PEEP Sodium (132-148) mmol/L Potassium (3.6-5.2) mmol/L Chloride (98-107) mmol/L Carbon Dioxide (22-30) mmol/L Anion Gap (10-20) BUN (7-17) mg/dL Creatinine (0.7-1.2) mg/dL Est GFR ( Amer) Est GFR (Non-Af Amer) POC Glucose (mg/dL) 231 H 254 H (65-110) mg/dL Random Glucose (65-105) mg/dL Calcium (8.6-10.4) mg/dl Phosphorus (2.5-4.5) mg/dL Magnesium (1.6-2.3) mg/dL Total Bilirubin (0.2-1.3) mg/dL AST (14-36) U/L ALT (9-52) U/L Alkaline Phosphatase (38-126) U/L Total Protein (6.3-8.3) g/dL Albumin (3.5-5.0) g/dL Globulin (2.2-3.9) gm/dL Albumin/Globulin Ratio (1.0-2.1) Urine HCG, Qual Negative (NEGATIVE) Blood Type Antibody Screen Antibody Identification 05/11/18 05/11/18 05/11/18 Range/Units 05:40 05:05 05:05 WBC (4.8-10.8) K/uL RBC (3.80-5.20) Mil/uL Hgb (11.0-16.0) g/dL Hct (34.0-47.0) % MCV (81.0-99.0) fL MCH (27.0-31.0) pg MCHC (33.0-37.0) g/dL RDW (11.5-14.5) % Plt Count (130-400) K/uL MPV (7.2-11.7) fL Neut % (Auto) (50.0-75.0) % Lymph % (Auto) (20.0-40.0) % Hale % (Auto) (0.0-10.0) % Eos % (Auto) (0.0-4.0) % Baso % (Auto) (0.0-2.0) % Neut # (Auto) (1.8-7.0) K/uL Lymph # (Auto) (1.0-4.3) K/uL Hale # (Auto) (0.0-0.8) K/uL Eos # (Auto) (0.0-0.7) K/uL Baso # (Auto) (0.0-0.2) K/uL Neutrophils % (Manual) (50-75) % Band Neutrophils % (0-2) % Lymphocytes % (Manual) (20-40) % Monocytes % (Manual) (0-10) % Eosinophils % (Manual) (0-4) % Platelet Estimate (NORMAL) PT 15.0 H (9.7-12.2) SECONDS INR 1.4 APTT 31 (21-34) SECONDS Puncture Site R rad pCO2 34 L (35-45) mm/Hg pO2 151 H (80-100) mm/Hg HCO3 25.9 (21-28) mmol/L ABG pH 7.47 H (7.35-7.45) ABG Total CO2 25.7 (22-28) mmol/L ABG O2 Saturation 99.4 H (95-98) % ABG Base Excess 1.3 (-2.0-3.0) mmol/L ABG Hemoglobin 10.2 L (11.7-17.4) g/dL ABG Carboxyhemoglobin 1.3 (0.5-1.5) % POC ABG HHb (Measured) 0.6 (0.0-5.0) % ABG Methemoglobin 1.5 (0.0-3.0) % Erik Test Pos A-a O2 Difference 92.0 mm/Hg Respiratory Index 0.6 Hgb O2 Saturation 96.7 (95.0-98.0) % Vent Mode A/c pc Mechanical Rate 18 FiO2 40.0 % PEEP 5 Sodium (132-148) mmol/L Potassium (3.6-5.2) mmol/L Chloride (98-107) mmol/L Carbon Dioxide (22-30) mmol/L Anion Gap (10-20) BUN (7-17) mg/dL Creatinine (0.7-1.2) mg/dL Est GFR ( Amer) Est GFR (Non-Af Amer) POC Glucose (mg/dL) (65-110) mg/dL Random Glucose (65-105) mg/dL Calcium (8.6-10.4) mg/dl Phosphorus (2.5-4.5) mg/dL Magnesium (1.6-2.3) mg/dL Total Bilirubin (0.2-1.3) mg/dL AST (14-36) U/L ALT (9-52) U/L Alkaline Phosphatase (38-126) U/L Total Protein (6.3-8.3) g/dL Albumin (3.5-5.0) g/dL Globulin (2.2-3.9) gm/dL Albumin/Globulin Ratio (1.0-2.1) Urine HCG, Qual (NEGATIVE) Blood Type A NEGATIVE Antibody Screen Positive Antibody Identification Anti D 05/11/18 05/11/18 05/10/18 Range/Units 05:05 05:05 23:20 WBC 19.2 H D (4.8-10.8) K/uL RBC 4.00 (3.80-5.20) Mil/uL Hgb 10.5 L (11.0-16.0) g/dL Hct 31.7 L (34.0-47.0) % MCV 79.1 L (81.0-99.0) fL MCH 26.2 L (27.0-31.0) pg MCHC 33.1 (33.0-37.0) g/dL RDW 15.5 H (11.5-14.5) % Plt Count 202 (130-400) K/uL MPV 11.9 H (7.2-11.7) fL Neut % (Auto) 86.8 H (50.0-75.0) % Lymph % (Auto) 6.8 L (20.0-40.0) % Hale % (Auto) 4.5 (0.0-10.0) % Eos % (Auto) 1.2 (0.0-4.0) % Baso % (Auto) 0.7 (0.0-2.0) % Neut # (Auto) 16.7 H (1.8-7.0) K/uL Lymph # (Auto) 1.3 (1.0-4.3) K/uL Hale # (Auto) 0.9 H (0.0-0.8) K/uL Eos # (Auto) 0.2 (0.0-0.7) K/uL Baso # (Auto) 0.1 (0.0-0.2) K/uL Neutrophils % (Manual) 87 H (50-75) % Band Neutrophils % 1 (0-2) % Lymphocytes % (Manual) 6 L (20-40) % Monocytes % (Manual) 5 (0-10) % Eosinophils % (Manual) 1 (0-4) % Platelet Estimate Normal (NORMAL) PT (9.7-12.2) SECONDS INR APTT (21-34) SECONDS Puncture Site pCO2 (35-45) mm/Hg pO2 (80-100) mm/Hg HCO3 (21-28) mmol/L ABG pH (7.35-7.45) ABG Total CO2 (22-28) mmol/L ABG O2 Saturation (95-98) % ABG Base Excess (-2.0-3.0) mmol/L ABG Hemoglobin (11.7-17.4) g/dL ABG Carboxyhemoglobin (0.5-1.5) % POC ABG HHb (Measured) (0.0-5.0) % ABG Methemoglobin (0.0-3.0) % Erik Test A-a O2 Difference mm/Hg Respiratory Index Hgb O2 Saturation (95.0-98.0) % Vent Mode Mechanical Rate FiO2 % PEEP Sodium 144 (132-148) mmol/L Potassium 3.4 L (3.6-5.2) mmol/L Chloride 113 H (98-107) mmol/L Carbon Dioxide 23 (22-30) mmol/L Anion Gap 11 (10-20) BUN 16 (7-17) mg/dL Creatinine 0.8 (0.7-1.2) mg/dL Est GFR ( Amer) > 60 Est GFR (Non-Af Amer) > 60 POC Glucose (mg/dL) 215 H (65-110) mg/dL Random Glucose 233 H (65-105) mg/dL Calcium 7.9 L (8.6-10.4) mg/dl Phosphorus 1.9 L (2.5-4.5) mg/dL Magnesium 2.3 (1.6-2.3) mg/dL Total Bilirubin 0.5 (0.2-1.3) mg/dL AST 75 H D (14-36) U/L ALT 65 H (9-52) U/L Alkaline Phosphatase 316 H D (38-126) U/L Total Protein 5.9 L (6.3-8.3) g/dL Albumin 2.7 L (3.5-5.0) g/dL Globulin 3.2 (2.2-3.9) gm/dL Albumin/Globulin Ratio 0.8 L (1.0-2.1) Urine HCG, Qual (NEGATIVE) Blood Type Antibody Screen Antibody Identification 05/10/18 05/10/18 Range/Units 17:36 11:20 WBC (4.8-10.8) K/uL RBC (3.80-5.20) Mil/uL Hgb (11.0-16.0) g/dL Hct (34.0-47.0) % MCV (81.0-99.0) fL MCH (27.0-31.0) pg MCHC (33.0-37.0) g/dL RDW (11.5-14.5) % Plt Count (130-400) K/uL MPV (7.2-11.7) fL Neut % (Auto) (50.0-75.0) % Lymph % (Auto) (20.0-40.0) % Hale % (Auto) (0.0-10.0) % Eos % (Auto) (0.0-4.0) % Baso % (Auto) (0.0-2.0) % Neut # (Auto) (1.8-7.0) K/uL Lymph # (Auto) (1.0-4.3) K/uL Hale # (Auto) (0.0-0.8) K/uL Eos # (Auto) (0.0-0.7) K/uL Baso # (Auto) (0.0-0.2) K/uL Neutrophils % (Manual) (50-75) % Band Neutrophils % (0-2) % Lymphocytes % (Manual) (20-40) % Monocytes % (Manual) (0-10) % Eosinophils % (Manual) (0-4) % Platelet Estimate (NORMAL) PT (9.7-12.2) SECONDS INR APTT (21-34) SECONDS Puncture Site pCO2 (35-45) mm/Hg pO2 (80-100) mm/Hg HCO3 (21-28) mmol/L ABG pH (7.35-7.45) ABG Total CO2 (22-28) mmol/L ABG O2 Saturation (95-98) % ABG Base Excess (-2.0-3.0) mmol/L ABG Hemoglobin (11.7-17.4) g/dL ABG Carboxyhemoglobin (0.5-1.5) % POC ABG HHb (Measured) (0.0-5.0) % ABG Methemoglobin (0.0-3.0) % Erik Test A-a O2 Difference mm/Hg Respiratory Index Hgb O2 Saturation (95.0-98.0) % Vent Mode Mechanical Rate FiO2 % PEEP Sodium (132-148) mmol/L Potassium (3.6-5.2) mmol/L Chloride (98-107) mmol/L Carbon Dioxide (22-30) mmol/L Anion Gap (10-20) BUN (7-17) mg/dL Creatinine (0.7-1.2) mg/dL Est GFR ( Amer) Est GFR (Non-Af Amer) POC Glucose (mg/dL) 217 H 264 H (65-110) mg/dL Random Glucose (65-105) mg/dL Calcium (8.6-10.4) mg/dl Phosphorus (2.5-4.5) mg/dL Magnesium (1.6-2.3) mg/dL Total Bilirubin (0.2-1.3) mg/dL AST (14-36) U/L ALT (9-52) U/L Alkaline Phosphatase (38-126) U/L Total Protein (6.3-8.3) g/dL Albumin (3.5-5.0) g/dL Globulin (2.2-3.9) gm/dL Albumin/Globulin Ratio (1.0-2.1) Urine HCG, Qual (NEGATIVE) Blood Type Antibody Screen Antibody Identification Laboratory Results - last 24 hr 05/10/18 05/10/18 05/10/18 11:20 17:36 23:20 WBC RBC Hgb Hct MCV MCH MCHC RDW Plt Count MPV Neut % (Auto) Lymph % (Auto) Hale % (Auto) Eos % (Auto) Baso % (Auto) Neut # (Auto) Lymph # (Auto) Hale # (Auto) Eos # (Auto) Baso # (Auto) Neutrophils % (Manual) Band Neutrophils % Lymphocytes % (Manual) Monocytes % (Manual) Eosinophils % (Manual) Platelet Estimate PT INR APTT Puncture Site pCO2 pO2 HCO3 ABG pH ABG Total CO2 ABG O2 Saturation ABG Base Excess ABG Hemoglobin ABG Carboxyhemoglobin POC ABG HHb (Measured) ABG Methemoglobin Erik Test A-a O2 Difference Respiratory Index Hgb O2 Saturation Vent Mode Mechanical Rate FiO2 PEEP Sodium Potassium Chloride Carbon Dioxide Anion Gap BUN Creatinine Est GFR ( Amer) Est GFR (Non-Af Amer) POC Glucose (mg/dL) 264 H 217 H 215 H Random Glucose Calcium Phosphorus Magnesium Total Bilirubin AST ALT Alkaline Phosphatase Total Protein Albumin Globulin Albumin/Globulin Ratio Urine HCG, Qual Blood Type Antibody Screen Antibody Identification 05/11/18 05/11/18 05/11/18 05:05 05:05 05:05 WBC 19.2 H D RBC 4.00 Hgb 10.5 L Hct 31.7 L MCV 79.1 L MCH 26.2 L MCHC 33.1 RDW 15.5 H Plt Count 202 MPV 11.9 H Neut % (Auto) 86.8 H Lymph % (Auto) 6.8 L Hale % (Auto) 4.5 Eos % (Auto) 1.2 Baso % (Auto) 0.7 Neut # (Auto) 16.7 H Lymph # (Auto) 1.3 Hale # (Auto) 0.9 H Eos # (Auto) 0.2 Baso # (Auto) 0.1 Neutrophils % (Manual) 87 H Band Neutrophils % 1 Lymphocytes % (Manual) 6 L Monocytes % (Manual) 5 Eosinophils % (Manual) 1 Platelet Estimate Normal PT 15.0 H INR 1.4 APTT 31 Puncture Site pCO2 pO2 HCO3 ABG pH ABG Total CO2 ABG O2 Saturation ABG Base Excess ABG Hemoglobin ABG Carboxyhemoglobin POC ABG HHb (Measured) ABG Methemoglobin Erik Test A-a O2 Difference Respiratory Index Hgb O2 Saturation Vent Mode Mechanical Rate FiO2 PEEP Sodium 144 Potassium 3.4 L Chloride 113 H Carbon Dioxide 23 Anion Gap 11 BUN 16 Creatinine 0.8 Est GFR ( Amer) > 60 Est GFR (Non-Af Amer) > 60 POC Glucose (mg/dL) Random Glucose 233 H Calcium 7.9 L Phosphorus 1.9 L Magnesium 2.3 Total Bilirubin 0.5 AST 75 H D ALT 65 H Alkaline Phosphatase 316 H D Total Protein 5.9 L Albumin 2.7 L Globulin 3.2 Albumin/Globulin Ratio 0.8 L Urine HCG, Qual Blood Type Antibody Screen Antibody Identification 05/11/18 05/11/18 05/11/18 05:05 05:40 05:43 WBC RBC Hgb Hct MCV MCH MCHC RDW Plt Count MPV Neut % (Auto) Lymph % (Auto) Hale % (Auto) Eos % (Auto) Baso % (Auto) Neut # (Auto) Lymph # (Auto) Hale # (Auto) Eos # (Auto) Baso # (Auto) Neutrophils % (Manual) Band Neutrophils % Lymphocytes % (Manual) Monocytes % (Manual) Eosinophils % (Manual) Platelet Estimate PT INR APTT Puncture Site R rad pCO2 34 L pO2 151 H HCO3 25.9 ABG pH 7.47 H ABG Total CO2 25.7 ABG O2 Saturation 99.4 H ABG Base Excess 1.3 ABG Hemoglobin 10.2 L ABG Carboxyhemoglobin 1.3 POC ABG HHb (Measured) 0.6 ABG Methemoglobin 1.5 Erik Test Pos A-a O2 Difference 92.0 Respiratory Index 0.6 Hgb O2 Saturation 96.7 Vent Mode A/c pc Mechanical Rate 18 FiO2 40.0 PEEP 5 Sodium Potassium Chloride Carbon Dioxide Anion Gap BUN Creatinine Est GFR ( Amer) Est GFR (Non-Af Amer) POC Glucose (mg/dL) 254 H Random Glucose Calcium Phosphorus Magnesium Total Bilirubin AST ALT Alkaline Phosphatase Total Protein Albumin Globulin Albumin/Globulin Ratio Urine HCG, Qual Blood Type A NEGATIVE Antibody Screen Positive Antibody Identification Anti D 05/11/18 05/11/18 10:45 11:16 WBC RBC Hgb Hct MCV MCH MCHC RDW Plt Count MPV Neut % (Auto) Lymph % (Auto) Hale % (Auto) Eos % (Auto) Baso % (Auto) Neut # (Auto) Lymph # (Auto) Hale # (Auto) Eos # (Auto) Baso # (Auto) Neutrophils % (Manual) Band Neutrophils % Lymphocytes % (Manual) Monocytes % (Manual) Eosinophils % (Manual) Platelet Estimate PT INR APTT Puncture Site pCO2 pO2 HCO3 ABG pH ABG Total CO2 ABG O2 Saturation ABG Base Excess ABG Hemoglobin ABG Carboxyhemoglobin POC ABG HHb (Measured) ABG Methemoglobin Erik Test A-a O2 Difference Respiratory Index Hgb O2 Saturation Vent Mode Mechanical Rate FiO2 PEEP Sodium Potassium Chloride Carbon Dioxide Anion Gap BUN Creatinine Est GFR ( Amer) Est GFR (Non-Af Amer) POC Glucose (mg/dL) 231 H Random Glucose Calcium Phosphorus Magnesium Total Bilirubin AST ALT Alkaline Phosphatase Total Protein Albumin Globulin Albumin/Globulin Ratio Urine HCG, Qual Negative Blood Type Antibody Screen Antibody Identification Fingerstick Blood Sugar Results: 231 Review of Systems - Review of Systems Systems not reviewed;Unavailable: Acuity of Condition Critical Care Progress Note - Nutrition Nutrition: Nutrition Category Date Time Status NPO Diet [DIET] Diets 05/10/18 Dinner Active Assessment/Plan - Assessment and Plan (Free Text) Assessment: This is a 52 year old female with probable past medical history of diabetes mellitus type 2 who was found unresponsive by on 05/01 (reportedly). EMS was called and patient was resuscitated and subsequently intubated on the field and brought to the ED. While in the ED: CODE STROKE was called, patient was subsequently admitted to ICU for close monitoring and evaluation for anoxic brain injury. Patient was noted on physical exam to have ring monge suggestive of suicidal attempt by hanging. [employer] is involved and state high likelihood of suicidal attempt. Patient is s/p tracheostomy and PEG by Dr. Adams. Neuro: Anoxic Brain Injury Possibly 2/2 Asphyxiation Possibly 2/2 Suicidal Attempt Via Hanging - Patient s/p tracheostomy and PEG by Dr. Adams. - Maintain bed elevation at 30 degrees - DDAVP 1mcg IVP once administered - [employer] involved and on case - Dr. Duff consulted: recommendations appreciated * Poor prognosis, but with some improvement in the exam * From 05/04 note: continue current management. * MRI brain: Findings most compatible with subacute favored over acute cerebral hypoxic insult with minimal involvement of the lower haris and the cerebellar hemispsheres as well. Blood flow in the basilar and bilateral cavernous internal carotid artery segments appears adequately maintained. - EEG obtained: showed diffuse encephalopathy with burst suppression - CT without contrast 05/01 official report: * Negative CT of the brain. Incidental ethmoid sinusitis. - Repeat CT without contrast 05/03 official report: * Stable poor cortical medullary differentiation with scattered edematous changes. No significant interval changes - Repeat CT without contrast 05/04 official report: * Little interval change in poor corticomedullary differentiation an indistinct appearance of the basal ganglia compatible with mild cerebral edema * Abnormal appearance of bilateral thalamocapsular regions concerning for hypoxic anoxic insult. - Patient was transferred to [facility] for MRI brain without contrast 05/05: * cortical ischemia conssistent with anoxic pattern; ischemia to the midbrain consistent with CT findings. - Continue neuro checks - Monitor CV: - Rule out ACS: serial trops Q8 negative x3 - Original EKG did not meet code heart criteria. - 3rd Trop elevated to 5.06 05/02 - pro BNP 35 - Heparin SC - ECHO official report: * LV systolic function is normal * EF > 70% * Transmitral Doppler flow pattern is Grade I- abnormal relaxation pattern - Tachycardia resolved - Discontinued: Nicardipine 5 mg/hr drip - Cardiology consulted; Dr. Gay; recommendations appreciated * Amlodipine 10 mg PO, Vasotec 1.25 mg IV and Metoprolol 5 mg IV given overnight. Will likely increase daily B bartolo - ASA, Statin, B-bartolo medical therapy - Continue to monitor - Monitor Pulm: Acute Respiratory Failure - on mechanical ventilation: decreased PEEP to 3 - Continue to titrate FiO2 to keep SpO2 > 92 - Continue bronchodilators - Monitor - CT chest abdomen pelvis without contrast official report: * Minimal bilateral pleural effusions * No fracture * No pneumothorax * Multifocal infiltrates at the bilateral upper and lower lobes as well as the right middle lobe in a pattern that could reflect aspiration given dependent subsegment affected Renal: Acute Renal Failure, improving - Consistent with ATN 2/2 ischemic vs septic - Keyboard Action Assembler consulted, recommendations appreciated * Agree with continue IVF as NS instead on 1/2 NS as has cerebral edema * Prefer to keep serum Na on higher side. * Once cerebral edema improves; switch to 0.45% saline. - Discontinued: 0.45% saline started @200mls/hr - Good urine output - No need for dialysis at this time Metabolic Acidosis - Likely 2/2 elevated lactic acid and/or DKA and/or ETOH consumption - Glycemic control - Continue to trend lactic acid - Monitor - Continue Thiamine 100 mg IV daily GI: - No acute issues - PEG: tube feeds (Glucerna) starting at 25 - Pepcid for Ppx - CT chest abdomen pelvis without contrast official report: * Findings suspicious for segmental colitis involving separate vascular distribution of the colon. Limited abdominal and pelvic ascites noted. No free intra peritoneal gas collection appreciable Endo: Likely history of Diabetes Mellitus Type 2: uncontrolled - ISS: moderate - Glargine 10 units IVP daily (hold prior to surgery due to holding feeds past midnight) - Hypoglycemic protocol - Accu checks Q6 - NPO diet - IVF - TSH - HgbA1c ID: Sepsis: suspect aspiration pneumonia - ID consulted (Dr. Mcgill); recommendations appreciated * Vanco - Discontinued * Zosyn - Discontinued * Flagyl on board * Continue: Meropenem - Sommers culture - Serial Lactic Acid; improving - Chest X-Ray 05/03: * Improved aeration in the right lower lobe with persistent dense consolidation and presumable patchy pneumonia in the left lower lobe. * Stable position of support tubes. Dispo: Patient is s/p tracheostomy and PEG placement (Dr. Adams) Consults: General Surgery (Dr. Kerns); Cardio (Dr. Gay); Neurohospitalist; Palliative care (Yesenia); Nephro (Dr. Samuels); ID (Dr. Mcgill); drug abuse social worker; wound care; Ppx: DVT: SCD & heparin, GI: protonix Code status: FULL CODE (unknown) Next of kin: Prognosis: Very Poor Patient seen and case discussed in detail with Dr. Mika Plasencia PGY1 <Mookie Brennan - Last Filed: 05/11/18 18:20> CCU Objective - Vital Signs / Intake & Output Vital Signs (Last 4 hours): Vital Signs Temp Pulse Resp BP Pulse Ox 05/11/18 16:30 92 H 25 H 100 05/11/18 16:15 91 H 18 100 05/11/18 16:07 89 26 H 150/77 99 05/11/18 16:00 97.8 F 90 21 100 05/11/18 15:45 87 21 99 05/11/18 15:30 86 20 100 05/11/18 15:15 76 19 100 05/11/18 15:07 73 17 153/73 H 100 05/11/18 15:00 73 18 100 05/11/18 14:57 69 19 154/77 H 100 05/11/18 14:45 72 19 150/78 05/11/18 14:30 68 18 05/11/18 14:27 66 17 151/81 H Intake and Output (Last 8hrs): Intake & Output 05/11/18 05/11/18 05/11/18 06:59 14:59 22:59 Intake Total 400 420 0 Output Total 595 270 30 Balance -195 150 -30 Weight 156 lb 8.451 oz Intake: IV 0 Intake, IV Amount 300 400 Right PICC 100 Right Proximal Port PICC 300 300 Oral 0 0 Tube Feeding 100 20 Output: Urine 595 270 30 Urethral ([place]) 595 270 30 Urine/Stool Mix 0 Oral Regurgitation 0 0 Other: # Bowel Movements 0 0 - Medications Active Medications: Active Medications Generic Name Dose Route Start Last Admin Trade Name Freq PRN Reason Stop Dose Admin Albuterol/Ipratropium 3 ml 05/02/18 04:00 05/11/18 16:11 Duoneb 3 Mg/0.5 Mg (3 Ml) Ud INH 3 ml RQ4 BETH Administration Amlodipine Besylate 10 mg 05/07/18 10:00 05/11/18 10:14 Norvasc PO 10 mg DAILY BETH Administration Aspirin 81 mg 05/02/18 10:00 05/10/18 09:45 Ecotrin PO 81 mg DAILY BETH Administration Bisacodyl 10 mg 05/07/18 08:19 05/10/18 09:45 Dulcolax [place] 10 mg TID PRN Administration Constipation Dextrose 0 ml 05/03/18 12:05 Dextrose 50% Inj IV STAT PRN Hypoglycemia Protocol Protocol Dextrose 15 gm 05/03/18 12:05 Glutose 15 PO ONCE PRN Hypoglycemia Protocol Protocol Glucagon 1 mg 05/03/18 12:05 Glucagen Diagnostic Kit IM STAT PRN Hypoglycemia Protocol Protocol Heparin Sodium (Porcine) 5,000 units 05/03/18 14:00 05/10/18 14:18 Heparin SC 5,000 units Q8 BETH Administration Levetiracetam 1,000 mg/ Sodium 110 mls @ 420 mls/hr 05/02/18 11:30 05/11/18 10:56 Chloride IVPB 420 mls/hr Q12H BETH Administration Meropenem 1 gm/ Sodium 100 mls @ 100 mls/hr 05/02/18 18:30 05/11/18 09:56 Chloride IVPB 100 mls/hr Q8H BETH Administration Protocol Dextrose 1,000 mls @ 0 mls/hr 05/05/18 13:57 Dextrose 5% In Water 1000 Ml IV .Q0M PRN Hypoglycemia Protocol Protocol Per Protocol Metronidazole 500 mg in 100 mls @ 100 mls/hr 05/11/18 18:00 Flagyl IVPB Q8H BETH Protocol Ibuprofen 200 mg 05/05/18 17:37 05/05/18 20:00 Motrin Oral Susp PO 200 mg Q6H PRN Administration Fever >100.4 F Insulin Aspart 0 unit 05/03/18 18:00 05/11/18 11:29 Novolog SC 3 units Q6 BETH Administration Protocol Insulin Glargine 10 unit 05/06/18 10:00 05/10/18 09:45 Lantus SC 10 u DAILY BETH Administration Labetalol HCl 10 mg 05/06/18 17:31 05/09/18 16:42 Trandate IVP 10 mg Q4H PRN Administration Systolic Blood Pressure Lactobacillus Acidophilus 1 cap 05/07/18 10:00 05/11/18 10:24 Bacid Acidophilus PO Not Given BID [facility] Lactulose 20 gm 05/09/18 08:55 05/10/18 09:45 Enulose PO 20 gm DAILY PRN Administration Constipation Lorazepam 1 mg 05/07/18 21:18 05/10/18 18:39 Ativan IVP 1 mg Q4 PRN Administration Restlessness Metoprolol Tartrate 75 mg 05/06/18 18:04 05/11/18 10:13 Lopressor PO 75 mg BID BETH Administration Morphine Sulfate 2 mg 05/11/18 17:22 Morphine IVP Q4 PRN Pain, moderate (4-7) Pantoprazole Sodium 40 mg 05/06/18 10:00 05/11/18 10:25 Protonix Susp NG Not Given DAILY BETH Rosuvastatin Calcium 5 mg 05/03/18 22:00 05/10/18 21:37 Crestor PO 5 mg HS BETH Administration Senna/Docusate Sodium 1 tab 05/07/18 18:00 05/11/18 10:25 Senokot S 50 Mg-8.6 Mg PO Not Given BID BETH Thiamine HCl 100 mg 05/03/18 10:45 05/11/18 09:55 Vitamin B1 Inj IV 100 mg DAILY BETH Administration - Patient Studies Lab Studies: Lab Studies 05/11/18 05/11/18 05/11/18 Range/Units 13:41 13:41 13:41 WBC (4.8-10.8) K/uL RBC (3.80-5.20) Mil/uL Hgb (11.0-16.0) g/dL Hct (34.0-47.0) % MCV (81.0-99.0) fL MCH (27.0-31.0) pg MCHC (33.0-37.0) g/dL RDW (11.5-14.5) % Plt Count (130-400) K/uL MPV (7.2-11.7) fL Neut % (Auto) (50.0-75.0) % Lymph % (Auto) (20.0-40.0) % Hale % (Auto) (0.0-10.0) % Eos % (Auto) (0.0-4.0) % Baso % (Auto) (0.0-2.0) % Neut # (Auto) (1.8-7.0) K/uL Lymph # (Auto) (1.0-4.3) K/uL Hale # (Auto) (0.0-0.8) K/uL Eos # (Auto) (0.0-0.7) K/uL Baso # (Auto) (0.0-0.2) K/uL Neutrophils % (Manual) (50-75) % Band Neutrophils % (0-2) % Lymphocytes % (Manual) (20-40) % Monocytes % (Manual) (0-10) % Eosinophils % (Manual) (0-4) % Platelet Estimate (NORMAL) PT (9.7-12.2) SECONDS INR APTT (21-34) SECONDS Puncture Site pCO2 (35-45) mm/Hg pO2 (80-100) mm/Hg HCO3 (21-28) mmol/L ABG pH (7.35-7.45) ABG Total CO2 (22-28) mmol/L ABG O2 Saturation (95-98) % ABG Base Excess (-2.0-3.0) mmol/L ABG Hemoglobin (11.7-17.4) g/dL ABG Carboxyhemoglobin (0.5-1.5) % POC ABG HHb (Measured) (0.0-5.0) % ABG Methemoglobin (0.0-3.0) % Erik Test A-a O2 Difference mm/Hg Respiratory Index Hgb O2 Saturation (95.0-98.0) % Vent Mode Mechanical Rate FiO2 % PEEP Sodium (132-148) mmol/L Potassium (3.6-5.2) mmol/L Chloride (98-107) mmol/L Carbon Dioxide (22-30) mmol/L Anion Gap (10-20) BUN (7-17) mg/dL Creatinine (0.7-1.2) mg/dL Est GFR ( Amer) Est GFR (Non-Af Amer) POC Glucose (mg/dL) (65-110) mg/dL Random Glucose (65-105) mg/dL Calcium (8.6-10.4) mg/dl Phosphorus (2.5-4.5) mg/dL Magnesium (1.6-2.3) mg/dL Total Bilirubin (0.2-1.3) mg/dL AST (14-36) U/L ALT (9-52) U/L Alkaline Phosphatase (38-126) U/L Total Protein (6.3-8.3) g/dL Albumin (3.5-5.0) g/dL Globulin (2.2-3.9) gm/dL Albumin/Globulin Ratio (1.0-2.1) Urine HCG, Qual (NEGATIVE) RPR Nonreactive (NONREACTIVE) Hepatitis A IgM Ab Negative (NEGATIVE) Hep Bs Antigen Negative (NEGATIVE) Hep Bs Antibody Negative (NEGATIVE) Hep B Core IgM Ab Negative (NEGATIVE) Hepatitis C Antibody Negative (NEGATIVE) Blood Type Antibody Screen Antibody Identification 05/11/18 05/11/18 05/11/18 Range/Units 11:16 10:45 05:43 WBC (4.8-10.8) K/uL RBC (3.80-5.20) Mil/uL Hgb (11.0-16.0) g/dL Hct (34.0-47.0) % MCV (81.0-99.0) fL MCH (27.0-31.0) pg MCHC (33.0-37.0) g/dL RDW (11.5-14.5) % Plt Count (130-400) K/uL MPV (7.2-11.7) fL Neut % (Auto) (50.0-75.0) % Lymph % (Auto) (20.0-40.0) % Hale % (Auto) (0.0-10.0) % Eos % (Auto) (0.0-4.0) % Baso % (Auto) (0.0-2.0) % Neut # (Auto) (1.8-7.0) K/uL Lymph # (Auto) (1.0-4.3) K/uL Hale # (Auto) (0.0-0.8) K/uL Eos # (Auto) (0.0-0.7) K/uL Baso # (Auto) (0.0-0.2) K/uL Neutrophils % (Manual) (50-75) % Band Neutrophils % (0-2) % Lymphocytes % (Manual) (20-40) % Monocytes % (Manual) (0-10) % Eosinophils % (Manual) (0-4) % Platelet Estimate (NORMAL) PT (9.7-12.2) SECONDS INR APTT (21-34) SECONDS Puncture Site pCO2 (35-45) mm/Hg pO2 (80-100) mm/Hg HCO3 (21-28) mmol/L ABG pH (7.35-7.45) ABG Total CO2 (22-28) mmol/L ABG O2 Saturation (95-98) % ABG Base Excess (-2.0-3.0) mmol/L ABG Hemoglobin (11.7-17.4) g/dL ABG Carboxyhemoglobin (0.5-1.5) % POC ABG HHb (Measured) (0.0-5.0) % ABG Methemoglobin (0.0-3.0) % Erik Test A-a O2 Difference mm/Hg Respiratory Index Hgb O2 Saturation (95.0-98.0) % Vent Mode Mechanical Rate FiO2 % PEEP Sodium (132-148) mmol/L Potassium (3.6-5.2) mmol/L Chloride (98-107) mmol/L Carbon Dioxide (22-30) mmol/L Anion Gap (10-20) BUN (7-17) mg/dL Creatinine (0.7-1.2) mg/dL Est GFR ( Amer) Est GFR (Non-Af Amer) POC Glucose (mg/dL) 231 H 254 H (65-110) mg/dL Random Glucose (65-105) mg/dL Calcium (8.6-10.4) mg/dl Phosphorus (2.5-4.5) mg/dL Magnesium (1.6-2.3) mg/dL Total Bilirubin (0.2-1.3) mg/dL AST (14-36) U/L ALT (9-52) U/L Alkaline Phosphatase (38-126) U/L Total Protein (6.3-8.3) g/dL Albumin (3.5-5.0) g/dL Globulin (2.2-3.9) gm/dL Albumin/Globulin Ratio (1.0-2.1) Urine HCG, Qual Negative (NEGATIVE) RPR (NONREACTIVE) Hepatitis A IgM Ab (NEGATIVE) Hep Bs Antigen (NEGATIVE) Hep Bs Antibody (NEGATIVE) Hep B Core IgM Ab (NEGATIVE) Hepatitis C Antibody (NEGATIVE) Blood Type Antibody Screen Antibody Identification 05/11/18 05/11/18 05/11/18 Range/Units 05:40 05:05 05:05 WBC (4.8-10.8) K/uL RBC (3.80-5.20) Mil/uL Hgb (11.0-16.0) g/dL Hct (34.0-47.0) % MCV (81.0-99.0) fL MCH (27.0-31.0) pg MCHC (33.0-37.0) g/dL RDW (11.5-14.5) % Plt Count (130-400) K/uL MPV (7.2-11.7) fL Neut % (Auto) (50.0-75.0) % Lymph % (Auto) (20.0-40.0) % Hale % (Auto) (0.0-10.0) % Eos % (Auto) (0.0-4.0) % Baso % (Auto) (0.0-2.0) % Neut # (Auto) (1.8-7.0) K/uL Lymph # (Auto) (1.0-4.3) K/uL Hale # (Auto) (0.0-0.8) K/uL Eos # (Auto) (0.0-0.7) K/uL Baso # (Auto) (0.0-0.2) K/uL Neutrophils % (Manual) (50-75) % Band Neutrophils % (0-2) % Lymphocytes % (Manual) (20-40) % Monocytes % (Manual) (0-10) % Eosinophils % (Manual) (0-4) % Platelet Estimate (NORMAL) PT 15.0 H (9.7-12.2) SECONDS INR 1.4 APTT 31 (21-34) SECONDS Puncture Site R rad pCO2 34 L (35-45) mm/Hg pO2 151 H (80-100) mm/Hg HCO3 25.9 (21-28) mmol/L ABG pH 7.47 H (7.35-7.45) ABG Total CO2 25.7 (22-28) mmol/L ABG O2 Saturation 99.4 H (95-98) % ABG Base Excess 1.3 (-2.0-3.0) mmol/L ABG Hemoglobin 10.2 L (11.7-17.4) g/dL ABG Carboxyhemoglobin 1.3 (0.5-1.5) % POC ABG HHb (Measured) 0.6 (0.0-5.0) % ABG Methemoglobin 1.5 (0.0-3.0) % Erik Test Pos A-a O2 Difference 92.0 mm/Hg Respiratory Index 0.6 Hgb O2 Saturation 96.7 (95.0-98.0) % Vent Mode A/c pc Mechanical Rate 18 FiO2 40.0 % PEEP 5 Sodium (132-148) mmol/L Potassium (3.6-5.2) mmol/L Chloride (98-107) mmol/L Carbon Dioxide (22-30) mmol/L Anion Gap (10-20) BUN (7-17) mg/dL Creatinine (0.7-1.2) mg/dL Est GFR ( Amer) Est GFR (Non-Af Amer) POC Glucose (mg/dL) (65-110) mg/dL Random Glucose (65-105) mg/dL Calcium (8.6-10.4) mg/dl Phosphorus (2.5-4.5) mg/dL Magnesium (1.6-2.3) mg/dL Total Bilirubin (0.2-1.3) mg/dL AST (14-36) U/L ALT (9-52) U/L Alkaline Phosphatase (38-126) U/L Total Protein (6.3-8.3) g/dL Albumin (3.5-5.0) g/dL Globulin (2.2-3.9) gm/dL Albumin/Globulin Ratio (1.0-2.1) Urine HCG, Qual (NEGATIVE) RPR (NONREACTIVE) Hepatitis A IgM Ab (NEGATIVE) Hep Bs Antigen (NEGATIVE) Hep Bs Antibody (NEGATIVE) Hep B Core IgM Ab (NEGATIVE) Hepatitis C Antibody (NEGATIVE) Blood Type A NEGATIVE Antibody Screen Positive Antibody Identification Anti D 05/11/18 05/11/18 05/10/18 Range/Units 05:05 05:05 23:20 WBC 19.2 H D (4.8-10.8) K/uL RBC 4.00 (3.80-5.20) Mil/uL Hgb 10.5 L (11.0-16.0) g/dL Hct 31.7 L (34.0-47.0) % MCV 79.1 L (81.0-99.0) fL MCH 26.2 L (27.0-31.0) pg MCHC 33.1 (33.0-37.0) g/dL RDW 15.5 H (11.5-14.5) % Plt Count 202 (130-400) K/uL MPV 11.9 H (7.2-11.7) fL Neut % (Auto) 86.8 H (50.0-75.0) % Lymph % (Auto) 6.8 L (20.0-40.0) % Hale % (Auto) 4.5 (0.0-10.0) % Eos % (Auto) 1.2 (0.0-4.0) % Baso % (Auto) 0.7 (0.0-2.0) % Neut # (Auto) 16.7 H (1.8-7.0) K/uL Lymph # (Auto) 1.3 (1.0-4.3) K/uL Hale # (Auto) 0.9 H (0.0-0.8) K/uL Eos # (Auto) 0.2 (0.0-0.7) K/uL Baso # (Auto) 0.1 (0.0-0.2) K/uL Neutrophils % (Manual) 87 H (50-75) % Band Neutrophils % 1 (0-2) % Lymphocytes % (Manual) 6 L (20-40) % Monocytes % (Manual) 5 (0-10) % Eosinophils % (Manual) 1 (0-4) % Platelet Estimate Normal (NORMAL) PT (9.7-12.2) SECONDS INR APTT (21-34) SECONDS Puncture Site pCO2 (35-45) mm/Hg pO2 (80-100) mm/Hg HCO3 (21-28) mmol/L ABG pH (7.35-7.45) ABG Total CO2 (22-28) mmol/L ABG O2 Saturation (95-98) % ABG Base Excess (-2.0-3.0) mmol/L ABG Hemoglobin (11.7-17.4) g/dL ABG Carboxyhemoglobin (0.5-1.5) % POC ABG HHb (Measured) (0.0-5.0) % ABG Methemoglobin (0.0-3.0) % Erik Test A-a O2 Difference mm/Hg Respiratory Index Hgb O2 Saturation (95.0-98.0) % Vent Mode Mechanical Rate FiO2 % PEEP Sodium 144 (132-148) mmol/L Potassium 3.4 L (3.6-5.2) mmol/L Chloride 113 H (98-107) mmol/L Carbon Dioxide 23 (22-30) mmol/L Anion Gap 11 (10-20) BUN 16 (7-17) mg/dL Creatinine 0.8 (0.7-1.2) mg/dL Est GFR ( Amer) > 60 Est GFR (Non-Af Amer) > 60 POC Glucose (mg/dL) 215 H (65-110) mg/dL Random Glucose 233 H (65-105) mg/dL Calcium 7.9 L (8.6-10.4) mg/dl Phosphorus 1.9 L (2.5-4.5) mg/dL Magnesium 2.3 (1.6-2.3) mg/dL Total Bilirubin 0.5 (0.2-1.3) mg/dL AST 75 H D (14-36) U/L ALT 65 H (9-52) U/L Alkaline Phosphatase 316 H D (38-126) U/L Total Protein 5.9 L (6.3-8.3) g/dL Albumin 2.7 L (3.5-5.0) g/dL Globulin 3.2 (2.2-3.9) gm/dL Albumin/Globulin Ratio 0.8 L (1.0-2.1) Urine HCG, Qual (NEGATIVE) RPR (NONREACTIVE) Hepatitis A IgM Ab (NEGATIVE) Hep Bs Antigen (NEGATIVE) Hep Bs Antibody (NEGATIVE) Hep B Core IgM Ab (NEGATIVE) Hepatitis C Antibody (NEGATIVE) Blood Type Antibody Screen Antibody Identification Laboratory Results - last 24 hr 05/10/18 05/11/18 05/11/18 23:20 05:05 05:05 WBC 19.2 H D RBC 4.00 Hgb 10.5 L Hct 31.7 L MCV 79.1 L MCH 26.2 L MCHC 33.1 RDW 15.5 H Plt Count 202 MPV 11.9 H Neut % (Auto) 86.8 H Lymph % (Auto) 6.8 L Hale % (Auto) 4.5 Eos % (Auto) 1.2 Baso % (Auto) 0.7 Neut # (Auto) 16.7 H Lymph # (Auto) 1.3 Hale # (Auto) 0.9 H Eos # (Auto) 0.2 Baso # (Auto) 0.1 Neutrophils % (Manual) 87 H Band Neutrophils % 1 Lymphocytes % (Manual) 6 L Monocytes % (Manual) 5 Eosinophils % (Manual) 1 Platelet Estimate Normal PT INR APTT Puncture Site pCO2 pO2 HCO3 ABG pH ABG Total CO2 ABG O2 Saturation ABG Base Excess ABG Hemoglobin ABG Carboxyhemoglobin POC ABG HHb (Measured) ABG Methemoglobin Erik Test A-a O2 Difference Respiratory Index Hgb O2 Saturation Vent Mode Mechanical Rate FiO2 PEEP Sodium 144 Potassium 3.4 L Chloride 113 H Carbon Dioxide 23 Anion Gap 11 BUN 16 Creatinine 0.8 Est GFR ( Amer) > 60 Est GFR (Non-Af Amer) > 60 POC Glucose (mg/dL) 215 H Random Glucose 233 H Calcium 7.9 L Phosphorus 1.9 L Magnesium 2.3 Total Bilirubin 0.5 AST 75 H D ALT 65 H Alkaline Phosphatase 316 H D Total Protein 5.9 L Albumin 2.7 L Globulin 3.2 Albumin/Globulin Ratio 0.8 L Urine HCG, Qual RPR Hepatitis A IgM Ab Hep Bs Antigen Hep Bs Antibody Hep B Core IgM Ab Hepatitis C Antibody Blood Type Antibody Screen Antibody Identification 05/11/18 05/11/18 05/11/18 05:05 05:05 05:40 WBC RBC Hgb Hct MCV MCH MCHC RDW Plt Count MPV Neut % (Auto) Lymph % (Auto) Hale % (Auto) Eos % (Auto) Baso % (Auto) Neut # (Auto) Lymph # (Auto) Hale # (Auto) Eos # (Auto) Baso # (Auto) Neutrophils % (Manual) Band Neutrophils % Lymphocytes % (Manual) Monocytes % (Manual) Eosinophils % (Manual) Platelet Estimate PT 15.0 H INR 1.4 APTT 31 Puncture Site R rad pCO2 34 L pO2 151 H HCO3 25.9 ABG pH 7.47 H ABG Total CO2 25.7 ABG O2 Saturation 99.4 H ABG Base Excess 1.3 ABG Hemoglobin 10.2 L ABG Carboxyhemoglobin 1.3 POC ABG HHb (Measured) 0.6 ABG Methemoglobin 1.5 Erik Test Pos A-a O2 Difference 92.0 Respiratory Index 0.6 Hgb O2 Saturation 96.7 Vent Mode A/c pc Mechanical Rate 18 FiO2 40.0 PEEP 5 Sodium Potassium Chloride Carbon Dioxide Anion Gap BUN Creatinine Est GFR ( Amer) Est GFR (Non-Af Amer) POC Glucose (mg/dL) Random Glucose Calcium Phosphorus Magnesium Total Bilirubin AST ALT Alkaline Phosphatase Total Protein Albumin Globulin Albumin/Globulin Ratio Urine HCG, Qual RPR Hepatitis A IgM Ab Hep Bs Antigen Hep Bs Antibody Hep B Core IgM Ab Hepatitis C Antibody Blood Type A NEGATIVE Antibody Screen Positive Antibody Identification Anti D 05/11/18 05/11/18 05/11/18 05:43 10:45 11:16 WBC RBC Hgb Hct MCV MCH MCHC RDW Plt Count MPV Neut % (Auto) Lymph % (Auto) Hale % (Auto) Eos % (Auto) Baso % (Auto) Neut # (Auto) Lymph # (Auto) Hale # (Auto) Eos # (Auto) Baso # (Auto) Neutrophils % (Manual) Band Neutrophils % Lymphocytes % (Manual) Monocytes % (Manual) Eosinophils % (Manual) Platelet Estimate PT INR APTT Puncture Site pCO2 pO2 HCO3 ABG pH ABG Total CO2 ABG O2 Saturation ABG Base Excess ABG Hemoglobin ABG Carboxyhemoglobin POC ABG HHb (Measured) ABG Methemoglobin Erik Test A-a O2 Difference Respiratory Index Hgb O2 Saturation Vent Mode Mechanical Rate FiO2 PEEP Sodium Potassium Chloride Carbon Dioxide Anion Gap BUN Creatinine Est GFR ( Amer) Est GFR (Non-Af Amer) POC Glucose (mg/dL) 254 H 231 H Random Glucose Calcium Phosphorus Magnesium Total Bilirubin AST ALT Alkaline Phosphatase Total Protein Albumin Globulin Albumin/Globulin Ratio Urine HCG, Qual Negative RPR Hepatitis A IgM Ab Hep Bs Antigen Hep Bs Antibody Hep B Core IgM Ab Hepatitis C Antibody Blood Type Antibody Screen Antibody Identification 05/11/18 05/11/18 05/11/18 13:41 13:41 13:41 WBC RBC Hgb Hct MCV MCH MCHC RDW Plt Count MPV Neut % (Auto) Lymph % (Auto) Hale % (Auto) Eos % (Auto) Baso % (Auto) Neut # (Auto) Lymph # (Auto) Hale # (Auto) Eos # (Auto) Baso # (Auto) Neutrophils % (Manual) Band Neutrophils % Lymphocytes % (Manual) Monocytes % (Manual) Eosinophils % (Manual) Platelet Estimate PT INR APTT Puncture Site pCO2 pO2 HCO3 ABG pH ABG Total CO2 ABG O2 Saturation ABG Base Excess ABG Hemoglobin ABG Carboxyhemoglobin POC ABG HHb (Measured) ABG Methemoglobin Erik Test A-a O2 Difference Respiratory Index Hgb O2 Saturation Vent Mode Mechanical Rate FiO2 PEEP Sodium Potassium Chloride Carbon Dioxide Anion Gap BUN Creatinine Est GFR ( Amer) Est GFR (Non-Af Amer) POC Glucose (mg/dL) Random Glucose Calcium Phosphorus Magnesium Total Bilirubin AST ALT Alkaline Phosphatase Total Protein Albumin Globulin Albumin/Globulin Ratio Urine HCG, Qual RPR Nonreactive Hepatitis A IgM Ab Negative Hep Bs Antigen Negative Hep Bs Antibody Negative Hep B Core IgM Ab Negative Hepatitis C Antibody Negative Blood Type Antibody Screen Antibody Identification Critical Care Progress Note - Nutrition Nutrition: Nutrition Category Date Time Status NPO Diet [DIET] Diets 05/10/18 Dinner Active Attending/Attestation - Attestation I have personally seen and examined this patient.: Yes I have fully participated in the care of the patient.: Yes I have reviewed all pertinent clinical information: Yes Notes (Text): 05/11/18 18:20 patient seen and examined in the intensive care unit. Status post tracheostomy No change in mental status Continue present treatment
[2018-05-11] MEDS ORDERED: Flumazenil 0.1 mg/ml Inj (5ml) IVP ONE (12:06)
--- NOTE | 2018-05-11 12:28 | CP.PCM.PN ---
Subjective - Date & Time of Evaluation Date of Evaluation: 05/11/18 Time of Evaluation: 10:00 - Subjective Subjective: Patient is on vent.No acute event spoke to RN at bedside Patient has some respond to pain .Noted moving left arm with pain Pupils react to light going for trach and peg today Objective - Vital Signs/Intake and Output Vital Signs (last 24 hours): Temp Pulse Resp BP Pulse Ox 97.9 F 93 H 17 108/48 L 100 05/11/18 08:00 05/11/18 11:45 05/11/18 11:45 05/11/18 11:03 05/11/18 11:45 Intake and Output: 05/11/18 05/11/18 06:59 18:59 Intake Total 900 420 Output Total 995 240 Balance -95 180 - Medications Medications: Current Medications Albuterol/Ipratropium (Duoneb 3 Mg/0.5 Mg (3 Ml) Ud) 3 ml INH RQ4 BETH Last Admin: 05/11/18 08:00 Dose: 3 ml Amlodipine Besylate (Norvasc) 10 mg PO DAILY BETH Last Admin: 05/11/18 10:14 Dose: 10 mg Aspirin (Ecotrin) 81 mg PO DAILY BETH Last Admin: 05/10/18 09:45 Dose: 81 mg Bisacodyl (Dulcolax) 10 mg DE TID PRN PRN Reason: Constipation Last Admin: 05/10/18 09:45 Dose: 10 mg Dextrose (Dextrose 50% Inj) 0 ml IV STAT PRN; Protocol PRN Reason: Hypoglycemia Protocol Dextrose (Glutose 15) 15 gm PO ONCE PRN; Protocol PRN Reason: Hypoglycemia Protocol Glucagon (Glucagen Diagnostic Kit) 1 mg IM STAT PRN; Protocol PRN Reason: Hypoglycemia Protocol Heparin Sodium (Porcine) (Heparin) 5,000 units SC Q8 BETH Last Admin: 05/10/18 14:18 Dose: 5,000 units Levetiracetam 1,000 mg/ Sodium (Chloride) 110 mls @ 420 mls/hr IVPB Q12H BETH Last Admin: 05/11/18 10:56 Dose: 420 mls/hr Meropenem 1 gm/ Sodium (Chloride) 100 mls @ 100 mls/hr IVPB Q8H BETH; Protocol Last Admin: 05/11/18 09:56 Dose: 100 mls/hr Dextrose (Dextrose 5% In Water 1000 Ml) 1,000 mls @ 0 mls/hr IV .Q0M PRN; Protocol PRN Reason: Hypoglycemia Protocol Metronidazole (Flagyl) 500 mg in 100 mls @ 100 mls/hr IVPB Q8H [facility]; Protocol Last Admin: 05/11/18 09:55 Dose: 100 mls/hr Ibuprofen (Motrin Oral Susp) 200 mg PO Q6H PRN PRN Reason: Fever >100.4 F Last Admin: 05/05/18 20:00 Dose: 200 mg Insulin Aspart (Novolog) 0 unit SC Q6 [facility]; Protocol Last Admin: 05/11/18 11:29 Dose: 3 units Insulin Glargine (Lantus) 10 unit SC DAILY [facility] Last Admin: 05/10/18 09:45 Dose: 10 u Labetalol HCl (Trandate) 10 mg IVP Q4H PRN PRN Reason: Systolic Blood Pressure Last Admin: 05/09/18 16:42 Dose: 10 mg Lactobacillus Acidophilus (Bacid Acidophilus) 1 cap PO BID [facility] Last Admin: 05/11/18 10:24 Dose: Not Given Lactulose (Enulose) 20 gm PO DAILY PRN PRN Reason: Constipation Last Admin: 05/10/18 09:45 Dose: 20 gm Lorazepam (Ativan) 1 mg IVP Q4 PRN PRN Reason: Restlessness Last Admin: 05/10/18 18:39 Dose: 1 mg Metoprolol Tartrate (Lopressor) 75 mg PO BID [facility] Last Admin: 05/11/18 10:13 Dose: 75 mg Pantoprazole Sodium (Protonix Susp) 40 mg NG DAILY [facility] Last Admin: 05/11/18 10:25 Dose: Not Given Rosuvastatin Calcium (Crestor) 5 mg PO HS [facility] Last Admin: 05/10/18 21:37 Dose: 5 mg Senna/Docusate Sodium (Senokot S 50 Mg-8.6 Mg) 1 tab PO BID [facility] Last Admin: 05/11/18 10:25 Dose: Not Given Thiamine HCl (Vitamin B1 Inj) 100 mg IV DAILY [facility] Last Admin: 05/11/18 09:55 Dose: 100 mg - Labs Labs: 05/11/18 05:05 05/11/18 05:05 PT 15.0 SECONDS (9.7-12.2) H 05/11/18 05:05 INR 1.4 05/11/18 05:05 APTT 31 SECONDS (21-34) 05/11/18 05:05 - Constitutional Appears: Chronically Ill - Head Exam Head Exam: absent: NORMAL INSPECTION (intubated Orally) - Eye Exam Eye Exam: Normal appearance, PERRL - Neck Exam Neck Exam: absent: Full ROM (intubated) - Respiratory Exam Respiratory Exam: NORMAL BREATHING PATTERN. absent: Rales, Wheezes, Stridor - Cardiovascular Exam Cardiovascular Exam: REGULAR RHYTHM - GI/Abdominal Exam GI & Abdominal Exam: Soft, Normal Bowel Sounds - Extremities Exam Extremities Exam: absent: Full ROM (right side without movement. Noted some movement with pain on left side) - Neurological Exam Neurological Exam: absent: Awake, Oriented x3 - Psychiatric Exam Psychiatric exam: absent: Normal Mood - Skin Skin Exam: Erythema (arm,abrasion on neck(not new)) Assessment and Plan - Assessment and Plan (Free Text) Plan: 1.Respiratory Failure Due to Asphyxiation/Possible Suicide Attempt Intubated and on [facility] Police were made aware Going for tracheotomy today 2. NSTEMI Elevated troponin ASA 81 mg PO 1x/day Crestor 5 mg PO 1x/day Dr Gay consulted 3. Leukocytosis Likely Secondary to Aspiration Pneumonia Current Chest X Ray 05/09/18 shows no active disease Blood Culture 05/02/18 is negative at 5 days Urine Culture 05/06/18 shows NO growth Tracheal Aspirate 05/08/18 results yeast Flagyl 500 mg IV Q8H Meropenem 500 mg IV Q8H 4. Anoxic Brain Injury EEG showed diffuse encephalopathy with burst suppression. Repeat CT head-no bleeding MRI Brain: most compatible with subacute favored over acute cerebral hypoxic insult with minimal involvement of the lower haris and the cerebellar hemispheres Levatiracetam 1,000 mg IV Q12H Neurology Dr. Duff/Guilherme 5. Transaminitis Likely shock liver Follow LFTs 6. Diabetes mellitus sugar is high,we will increase lantus after GT placement Lantus 10 Units SC Aspart ISS Q6H 7. ARF Likely Secondary to ATN with Hypernatremia BUN/Cr have improved Insurance Verification Rep Dr. Samuels 8. HTN Metoprolol Tartrate 75 mg PO BID Norvasc 5 mg PO 1x/day Labetalol 10 mg IV Q4H PRN SBP > 140 9. Hyponatremia resolved,monitor sodium 10. Prophylaxis Heparin 5,000 Units SC Q8H Protonix 40 mg NGT Feeding hold for PEG
[2018-05-11] MEDS ORDERED: ePHEDrine 50 mg/ml Inj ONE (12:40)
[2018-05-11] MEDS ORDERED: Vasopressin 20 Units/ml Inj ONE (12:40)
[2018-05-11] MEDS ORDERED: Rocuronium 10 mg/ml (5 ml) ONE (13:20)
--- NOTE | 2018-05-11 13:50 | PCM.SURG1 ---
Surgeon's Initial Post Op Note - Surgeon's Notes Surgeon: Dr. Adams Armature Bander: Dr. Guan, Dr. Jack Type of Anesthesia: General Endo Anesthesia Administered By: Dr. Chavez Pre-Operative Diagnosis: Anoxic Brain Injury/Respiratory Failure Operative Findings: See operative report Post-Operative Diagnosis: Same Operation Performed: Percutaneous Tracheostomy & Gastrostomy tube placement Specimen/Specimens Removed: none Estimated Blood Loss: EBL {In ML}: 10 Blood Products Given: N/A Drains Used: No Drains Post-Op Condition: Good Date of Surgery/Procedure: 05/11/18 Time of Surgery/Procedure: 13:50
--- NOTE | 2018-05-11 14:35 | CP.PCM.PN ---
Subjective - Date & Time of Evaluation Date of Evaluation: 05/11/18 Time of Evaluation: 14:00 - Subjective Subjective: Lamont Barclay, PGY-[address] Gay Patient seen and evaluated at bedside. Family at bedside. No acute events overnight, per nurse. Unable to obtaine ROS due to clinical condition. Patient opens eyes spontaneously. S/p tracheostomy and feeding tube placement. Objective - Vital Signs/Intake and Output Vital Signs (last 24 hours): Temp Pulse Resp BP Pulse Ox 99.7 F H 62 18 108/60 100 05/11/18 11:30 05/11/18 14:15 05/11/18 14:15 05/11/18 14:12 05/11/18 14:15 Intake and Output: 05/11/18 05/11/18 06:59 18:59 Intake Total 900 420 Output Total 995 240 Balance -95 180 - Medications Medications: Current Medications Albuterol/Ipratropium (Duoneb 3 Mg/0.5 Mg (3 Ml) Ud) 3 ml INH RQ4 [facility] Last Admin: 05/11/18 08:00 Dose: 3 ml Amlodipine Besylate (Norvasc) 10 mg PO DAILY [facility] Last Admin: 05/11/18 10:14 Dose: 10 mg Aspirin (Ecotrin) 81 mg PO DAILY [facility] Last Admin: 05/10/18 09:45 Dose: 81 mg Bisacodyl (Dulcolax) 10 mg [place] TID PRN PRN Reason: Constipation Last Admin: 05/10/18 09:45 Dose: 10 mg Dextrose (Dextrose 50% Inj) 0 ml IV STAT PRN; Protocol PRN Reason: Hypoglycemia Protocol Dextrose (Glutose 15) 15 gm PO ONCE PRN; Protocol PRN Reason: Hypoglycemia Protocol Glucagon (Glucagen Diagnostic Kit) 1 mg IM STAT PRN; Protocol PRN Reason: Hypoglycemia Protocol Heparin Sodium (Porcine) (Heparin) 5,000 units SC Q8 [facility] Last Admin: 05/10/18 14:18 Dose: 5,000 units Levetiracetam 1,000 mg/ Sodium (Chloride) 110 mls @ 420 mls/hr IVPB Q12H [facility] Last Admin: 05/11/18 10:56 Dose: 420 mls/hr Meropenem 1 gm/ Sodium (Chloride) 100 mls @ 100 mls/hr IVPB Q8H [facility]; Protocol Last Admin: 05/11/18 09:56 Dose: 100 mls/hr Dextrose (Dextrose 5% In Water 1000 Ml) 1,000 mls @ 0 mls/hr IV .Q0M PRN; Protocol PRN Reason: Hypoglycemia Protocol Ibuprofen (Motrin Oral Susp) 200 mg PO Q6H PRN PRN Reason: Fever >100.4 F Last Admin: 05/05/18 20:00 Dose: 200 mg Insulin Aspart (Novolog) 0 unit SC Q6 [facility]; Protocol Last Admin: 05/11/18 11:29 Dose: 3 units Insulin Glargine (Lantus) 10 unit SC DAILY [facility] Last Admin: 05/10/18 09:45 Dose: 10 u Labetalol HCl (Trandate) 10 mg IVP Q4H PRN PRN Reason: Systolic Blood Pressure Last Admin: 05/09/18 16:42 Dose: 10 mg Lactobacillus Acidophilus (Bacid Acidophilus) 1 cap PO BID [facility] Last Admin: 05/11/18 10:24 Dose: Not Given Lactulose (Enulose) 20 gm PO DAILY PRN PRN Reason: Constipation Last Admin: 05/10/18 09:45 Dose: 20 gm Lorazepam (Ativan) 1 mg IVP Q4 PRN PRN Reason: Restlessness Last Admin: 05/10/18 18:39 Dose: 1 mg Metoprolol Tartrate (Lopressor) 75 mg PO BID [facility] Last Admin: 05/11/18 10:13 Dose: 75 mg Pantoprazole Sodium (Protonix Susp) 40 mg NG DAILY [facility] Last Admin: 05/11/18 10:25 Dose: Not Given Rosuvastatin Calcium (Crestor) 5 mg PO HS [facility] Last Admin: 05/10/18 21:37 Dose: 5 mg Senna/Docusate Sodium (Senokot S 50 Mg-8.6 Mg) 1 tab PO BID [facility] Last Admin: 05/11/18 10:25 Dose: Not Given Thiamine HCl (Vitamin B1 Inj) 100 mg IV DAILY [facility] Last Admin: 05/11/18 09:55 Dose: 100 mg - Labs Labs: 05/11/18 05:05 05/11/18 05:05 PT 15.0 SECONDS (9.7-12.2) H 05/11/18 05:05 INR 1.4 05/11/18 05:05 APTT 31 SECONDS (21-34) 05/11/18 05:05 - Additional Findings Additional findings: Pupils: Positive for: PERRL, eyes open spontaneously Extroacular Muscles: Negative for: EOMI (unable to be assessed) Conjunctiva: Positive for: Normal Mouth: Positive for: Moist Mucous Membranes. Extubated. Tracheostomy in place. Not dislodged. Pulm: Diffuse course breath sounds bilaterallly Neck: Positive for: Trachea Midline, hyperpigmented circumferential ligation around neck). Negative for: Meningeal Signs Cardiovascular: Positive for: Normal S1, S2, Tachycardic Abdomen: Peg tube in place. No obvious signs of bleeding. Dressings (4x4s) clear dry and intact. Negative for: Distention, Rebound, Guarding Skin: Positive for: Warm, Dry, Normal Color, unchanged Left anterior lower lateral arm eschar Psychiatric: Negative for: Alert, Oriented x 3 Assessment and Plan - Assessment and Plan (Free Text) Assessment: Assessment: 52 F with suspected suicide attempt who presents with anoxic brain injury. S/p trach and gastrostomy tube placement. Hypertensive Urgency/Emergency - Permissive HTN per Neuro - MRI brain results at [place]: Findings most compatible with subacute favored over acute cerebral hypoxic insult with minimal involvement of the lower haris and the cerebellar hemispheres as well. Blood flow in the basilar and bilateral cavernous internal carotid artery segments appears adequately maintained. - CT head showed stable poor cortical medullary differentiation - Statin, Lopressor, Amlodipine, Labetalol when sBP > 140 per ICU team - Hgb improved to 10.5 from 9.8 yesterday. ASA and Heparin held - Continue to monitor Elevated Troponins - 3rd Trop elevated to 5.06 05/02 - Echo report shows normal EF 65-70% with normal systolic function - pro BNP 35 - Heparin SC Patient seen, case reviewed, and plan discussed with Dr. Gay. Future recs per Dr. Gay. Lamont Barclay, PGY-1
[2018-05-11 14:47] LABS: HEPATITIS B SURFACE AG Negative (NEGATIVE)
[2018-05-11 14:52] LABS: HEPATITIS A IGM NEGATIVE (NEGATIVE)
[2018-05-11 14:53] LABS: HEPATITIS B CORE AB NEGATIVE (NEGATIVE)
[2018-05-11] MEDS ORDERED: metroNIDAZOLE IV 500 mg/100 ml 500 MG/100 ML BAG IVPB SCH (15:00)
[2018-05-11 15:04] LABS: HEPATITIS C ANTIBODY NEGATIVE (NEGATIVE)
--- NOTE | 2018-05-12 | OP ---
PROCEDURE DATE: 05/11/2018 PREOPERATIVE DIAGNOSES: Respiratory failure and encephalopathy. PROCEDURES CARRIED OUT: 1. Percutaneous tracheostomy using #6 Shiley. 2. Open surgical gastrostomy. SURGEON: Josh Adams Jr., MD ASSISTANTS: Brian Jack DO and Michelle Guan DO TYPE OF ANESTHESIA: General anesthesia. ANESTHESIA ADMINISTERED BY: Dr. Lima INDICATION FOR PROCEDURE: A 52-year-old woman. Details of her history are best illustrated elsewhere. She has respiratory failure, requiring prolonged ventilation. OPERATIVE FINDINGS: A #6 Shiley tracheostomy tube is inserted uneventfully using the [employer] tracheostomy system. DESCRIPTION OF PROCEDURE: The patient was given local anesthesia in the neck. Simultaneously, she was laparoscoped. Tube was advanced at the level of the aiden and withdrawn. Tracheostomy tube was . We punctured the anterior wall of the trachea with a needle. Wire was inserted through dilators. Eventually, the tracheostomy tube was delivered. This was checked again. Bronchoscopy was then carried out confirming that we were above the aiden. This went quite well and was sutured to the skin. We then prepped and draped again. We opened the midline incision, identified the stomach, sutured it to the abdominal wall, placed a pursestring suture around this and sutured the gastrostomy tube. This was sutured in multiple locations to the abdominal wall. The abdomen was then closed. Skin was closed with skin clips. BLOOD LOSS: Less than 10 mL. OPERATION CARRIED OUT: Percutaneous tracheostomy and gastrostomy. Josh Adams Jr., MD
[2018-05-12] MEDS: Albuterol-Ipratrop 3 mg / 0.5 (3 ml) UD INH SCH ×6 (00:56→19:49)
[2018-05-12] MEDS: metroNIDAZOLE IV 500 mg/100 ml 500 MG/100 ML BAG IVPB SCH ×3 (01:33→17:56)
[2018-05-12] MEDS: Meropenem 1 GM in Sodium Chloride 0.9% 100 ML IVPB SCH ×3 (02:44→18:57)
[2018-05-12 06:12] LABS: BASO # 0.2 K/uL (0.0-0.2); BASO % 1.2 % (0.0-2.0); EOS # 0.2 K/uL (0.0-0.7); EOS % 1.1 % (0.0-4.0); HEMOGLOBIN 9.8 g/dL (11.0-16.0); LYMPH # 1.3 K/uL (1.0-4.3); LYMPH % 8.2 % (20.0-40.0); MEAN CELL VOLUME 80.4 fL (81.0-99.0); MEAN CORPUSCULAR HEMOGLOBIN 26.1 pg (27.0-31.0); MEAN CORPUSCULAR HGB CONC 32.5 g/dL (33.0-37.0); MEAN PLATELET VOLUME 12.7 fL (7.2-11.7); MONO # 1.2 K/uL (0.0-0.8); MONO % 7.3 % (0.0-10.0); NEUT % 82.2 % (50.0-75.0); PLATELET COUNT 234 K/uL (130-400); RBC 3.75 Mil/uL (3.80-5.20); RED CELL DISTRIBUTION WIDTH 15.4 % (11.5-14.5); WHITE BLOOD COUNT 15.8 K/uL (4.8-10.8)
[2018-05-12 06:38] LABS: ALB/GLOB RATIO 0.8 (1.0-2.1); ALBUMIN 2.6 g/dL (3.5-5.0); ALT/SGPT 58 U/L (9-52); AST/SGOT 64 U/L (14-36); BLOOD UREA NITROGEN 16 mg/dL (7-17); CALCIUM 7.5 mg/dl (8.6-10.4); GFR NON-AFRICAN AMERICAN > 60
[2018-05-12] MEDS ORDERED: Potassium & Sodium Phosphate PEG ONE (07:45)
[2018-05-12 08:17] LABS: BANDS 1 % (0-2); LYMPHOCYTE 6 % (20-40); MONOCYTE 4 % (0-10); NEUTROPHIL 89 % (50-75); TOTAL CELLS COUNTED 100
[2018-05-12 08:18] LABS: ANISOCYTOSIS SLIGHT; HYPOCHROMIC SLIGHT; PLATELET ESTIMATE NORMAL (NORMAL); POLYCHROMIC SLIGHT
[2018-05-12] MEDS: Thiamine 100 mg/ml Inj IV SCH (10:05)
[2018-05-12] MEDS: levETIRAcetam 1,000 MG in Sodium Chloride 0.9% 100 ML IVPB SCH ×2 (10:57→23:47)
--- NOTE | 2018-05-12 11:20 | CP.PCM.PN ---
Subjective - Date & Time of Evaluation Date of Evaluation: 05/12/18 Time of Evaluation: 11:15 - Subjective Subjective: Lamont Barclay, PGY-[address] Gay Patient seen and evaluated at bedside. Family at bedside. No acute events overnight, per nurse. Unable to obtaine ROS due to clinical condition. Patient opens eyes spontaneously and moves lower extremities spontaneously. S/p tracheostomy and feeding tube placement 05/11. Objective - Vital Signs/Intake and Output Vital Signs (last 24 hours): Temp Pulse Resp BP Pulse Ox 98.5 F 79 18 115/52 L 100 05/12/18 06:00 05/12/18 06:07 05/12/18 06:07 05/12/18 06:07 05/12/18 06:07 Intake and Output: 05/12/18 05/12/18 06:59 18:59 Intake Total 300 Output Total 570 Balance -270 - Medications Medications: Current Medications Albuterol/Ipratropium (Duoneb 3 Mg/0.5 Mg (3 Ml) Ud) 3 ml INH RQ4 [facility] Last Admin: 05/12/18 07:38 Dose: 3 ml Amlodipine Besylate (Norvasc) 10 mg PO DAILY [facility] Last Admin: 05/11/18 10:14 Dose: 10 mg Aspirin (Ecotrin) 81 mg PO DAILY [facility] Last Admin: 05/10/18 09:45 Dose: 81 mg Bisacodyl (Dulcolax) 10 mg [place] TID PRN PRN Reason: Constipation Last Admin: 05/10/18 09:45 Dose: 10 mg Dextrose (Dextrose 50% Inj) 0 ml IV STAT PRN; Protocol PRN Reason: Hypoglycemia Protocol Dextrose (Glutose 15) 15 gm PO ONCE PRN; Protocol PRN Reason: Hypoglycemia Protocol Glucagon (Glucagen Diagnostic Kit) 1 mg IM STAT PRN; Protocol PRN Reason: Hypoglycemia Protocol Heparin Sodium (Porcine) (Heparin) 5,000 units SC Q8 [facility] Last Admin: 05/10/18 14:18 Dose: 5,000 units Levetiracetam 1,000 mg/ Sodium (Chloride) 110 mls @ 420 mls/hr IVPB Q12H [facility] Last Admin: 05/11/18 23:05 Dose: 420 mls/hr Meropenem 1 gm/ Sodium (Chloride) 100 mls @ 100 mls/hr IVPB Q8H [facility]; Protocol Last Admin: 05/12/18 02:44 Dose: 100 mls/hr Dextrose (Dextrose 5% In Water 1000 Ml) 1,000 mls @ 0 mls/hr IV .Q0M PRN; P rotocol PRN Reason: Hypoglycemia Protocol Metronidazole (Flagyl) 500 mg in 100 mls @ 100 mls/hr IVPB Q8H [facility]; Protocol Last Admin: 05/12/18 01:33 Dose: 100 mls/hr Ibuprofen (Motrin Oral Susp) 200 mg PO Q6H PRN PRN Reason: Fever >100.4 F Last Admin: 05/05/18 20:00 Dose: 200 mg Insulin Aspart (Novolog) 0 unit SC Q6 [facility]; Protocol Last Admin: 05/12/18 00:00 Dose: Not Given Insulin Glargine (Lantus) 10 unit SC DAILY [facility] Last Admin: 05/10/18 09:45 Dose: 10 u Labetalol HCl (Trandate) 10 mg IVP Q4H PRN PRN Reason: Systolic Blood Pressure Last Admin: 05/09/18 16:42 Dose: 10 mg Lactobacillus Acidophilus (Bacid Acidophilus) 1 cap PO BID [facility] Last Admin: 05/11/18 18:36 Dose: Not Given Lactulose (Enulose) 20 gm PO DAILY PRN PRN Reason: Constipation Last Admin: 05/10/18 09:45 Dose: 20 gm Lorazepam (Ativan) 1 mg IVP Q4 PRN PRN Reason: Restlessness Last Admin: 05/10/18 18:39 Dose: 1 mg Metoprolol Tartrate (Lopressor) 75 mg PO BID [facility] Last Admin: 05/11/18 18:39 Dose: Not Given Morphine Sulfate (Morphine) 2 mg IVP Q4 PRN PRN Reason: Pain, moderate (4-7) Last Admin: 05/11/18 18:00 Dose: 2 mg Pantoprazole Sodium (Protonix Susp) 40 mg NG DAILY [facility] Last Admin: 05/11/18 10:25 Dose: Not Given Rosuvastatin Calcium (Crestor) 5 mg PO HS [facility] Last Admin: 05/11/18 22:00 Dose: Not Given Senna/Docusate Sodium (Senokot S 50 Mg-8.6 Mg) 1 tab PO BID [facility] Last Admin: 05/11/18 18:40 Dose: Not Given Thiamine HCl (Vitamin B1 Inj) 100 mg IV DAILY [facility] Last Admin: 05/11/18 09:55 Dose: 100 mg - Labs Labs: 05/12/18 06:01 05/12/18 06:01 PT 15.0 SECONDS (9.7-12.2) H 05/11/18 05:05 INR 1.4 05/11/18 05:05 APTT 31 SECONDS (21-34) 05/11/18 05:05 - Additional Findings Additional findings: Pupils: Positive for: PERRL, eyes open spontaneously Extroacular Muscles: Negative for: EOMI (unable to be assessed) Conjunctiva: Positive for: Normal Mouth: Positive for: Moist Mucous Membranes. Extubated. Pulm: Diffuse course breath sounds bilaterallly Neck: Positive for: Trachea Midline, hyperpigmented circumferential ligation around neck). Tracheostomy in place. Not dislodged. Negative for: Meningeal Signs Cardiovascular: Positive for: Normal S1, S2, Tachycardic Abdomen: Peg tube in place. No obvious signs of bleeding. Dressings (4x4s) clear dry and intact. Negative for: Distention, Rebound, Guarding Skin: Positive for: Warm, Dry, Normal Color, unchanged Left anterior lower lateral arm eschar Psychiatric: Negative for: Alert, Oriented x 3 Assessment and Plan - Assessment and Plan (Free Text) Assessment: Assessment: 52 F with suspected suicide attempt who presents with anoxic brain injury. S/p trach and gastrostomy tube placement. Hypertensive Urgency/Emergency - Initially permissive HTN per Neuro, vitals stable with paroxysmal labile BP - MRI brain results at [place]: Findings most compatible with subacute favored over acute cerebral hypoxic insult with minimal involvement of the lower haris and the cerebellar hemispheres as well. Blood flow in the basilar and bilateral cavernous internal carotid artery segments appears adequately maintained. - CT head showed stable poor cortical medullary differentiation - Statin, Lopressor, Amlodipine, Labetalol when sBP > 140 per ICU team. Nicardipine drip discontinued per ICU team - Hgb back down to 9.8 today - Continue to monitor Elevated Troponins - 3rd Trop elevated to 5.06 05/02 - Echo report shows normal EF 65-70% with normal systolic function - pro BNP 35 - Heparin SC Patient seen, case reviewed, and plan discussed with Dr. Gay. Future recs per Dr. Gay. Lamont Barclay, PGY-1
--- NOTE | 2018-05-12 12:54 | CP.PCM.PN ---
Subjective - Date & Time of Evaluation Date of Evaluation: 05/12/18 Time of Evaluation: 12:51 - Subjective Subjective: Surgery: Dr. Adams Pt seen and examined. No acute overnight events. Pt is s/p trach & g-tube insertion; POD#1. Remains unresponsive with GCS 3T ([id number]). Objective - Vital Signs/Intake and Output Vital Signs (last 24 hours): Temp Pulse Resp BP Pulse Ox 98.5 F 116 H 20 109/70 100 05/12/18 06:00 05/12/18 12:00 05/12/18 12:00 05/12/18 11:07 05/12/18 12:00 Intake and Output: 05/12/18 05/12/18 06:59 18:59 Intake Total 300 300 Output Total 570 200 Balance -270 100 - Medications Medications: Current Medications Albuterol/Ipratropium (Duoneb 3 Mg/0.5 Mg (3 Ml) Ud) 3 ml INH RQ4 [facility] Last Admin: 05/12/18 11:23 Dose: 3 ml Amlodipine Besylate (Norvasc) 10 mg PO DAILY [facility] Last Admin: 05/11/18 10:14 Dose: 10 mg Aspirin (Ecotrin) 81 mg PO DAILY [facility] Last Admin: 05/10/18 09:45 Dose: 81 mg Bisacodyl (Dulcolax) 10 mg [place] TID PRN PRN Reason: Constipation Last Admin: 05/10/18 09:45 Dose: 10 mg Dextrose (Dextrose 50% Inj) 0 ml IV STAT PRN; Protocol PRN Reason: Hypoglycemia Protocol Dextrose (Glutose 15) 15 gm PO ONCE PRN; Protocol PRN Reason: Hypoglycemia Protocol Glucagon (Glucagen Diagnostic Kit) 1 mg IM STAT PRN; Protocol PRN Reason: Hypoglycemia Protocol Heparin Sodium (Porcine) (Heparin) 5,000 units SC Q8 [facility] Levetiracetam 1,000 mg/ Sodium (Chloride) 110 mls @ 420 mls/hr IVPB Q12H [facility] Last Admin: 05/11/18 23:05 Dose: 420 mls/hr Meropenem 1 gm/ Sodium (Chloride) 100 mls @ 100 mls/hr IVPB Q8H [facility]; Protocol Last Admin: 05/12/18 02:44 Dose: 100 mls/hr Dextrose (Dextrose 5% In Water 1000 Ml) 1,000 mls @ 0 mls/hr IV .Q0M PRN; Protocol PRN Reason: Hypoglycemia Protocol Metronidazole (Flagyl) 500 mg in 100 mls @ 100 mls/hr IVPB Q8H [facility]; Protocol Last Admin: 05/12/18 01:33 Dose: 100 mls/hr Ibuprofen (Motrin Oral Susp) 200 mg PO Q6H PRN PRN Reason: Fever >100.4 F Last Admin: 05/05/18 20:00 Dose: 200 mg Insulin Aspart (Novolog) 0 unit SC Q6 [facility]; Protocol Last Admin: 05/12/18 00:00 Dose: Not Given Insulin Glargine (Lantus) 10 unit SC DAILY [facility] Last Admin: 05/10/18 09:45 Dose: 10 u Labetalol HCl (Trandate) 10 mg IVP Q4H PRN PRN Reason: Systolic Blood Pressure Last Admin: 05/09/18 16:42 Dose: 10 mg Lactobacillus Acidophilus (Bacid Acidophilus) 1 cap PO BID [facility] Last Admin: 05/11/18 18:36 Dose: Not Given Lactulose (Enulose) 20 gm PO DAILY PRN PRN Reason: Constipation Last Admin: 05/10/18 09:45 Dose: 20 gm Lorazepam (Ativan) 1 mg IVP Q4 PRN PRN Reason: Restlessness Last Admin: 05/10/18 18:39 Dose: 1 mg Metoprolol Tartrate (Lopressor) 75 mg PO BID [facility] Last Admin: 05/11/18 18:39 Dose: Not Given Morphine Sulfate (Morphine) 2 mg IVP Q4 PRN PRN Reason: Pain, moderate (4-7) Last Admin: 05/11/18 18:00 Dose: 2 mg Pantoprazole Sodium (Protonix Susp) 40 mg NG DAILY [facility] Last Admin: 05/11/18 10:25 Dose: Not Given Rosuvastatin Calcium (Crestor) 5 mg PO HS [facility] Last Admin: 05/11/18 22:00 Dose: Not Given Senna/Docusate Sodium (Senokot S 50 Mg-8.6 Mg) 1 tab PO BID [facility] Last Admin: 05/11/18 18:40 Dose: Not Given Thiamine HCl (Vitamin B1 Inj) 100 mg IV DAILY [facility] Last Admin: 05/11/18 09:55 Dose: 100 mg - Labs Labs: 05/12/18 06:01 05/12/18 06:01 PT 15.0 SECONDS (9.7-12.2) H 05/11/18 05:05 INR 1.4 05/11/18 05:05 APTT 31 SECONDS (21-34) 05/11/18 05:05 - Constitutional Appears: No Acute Distress - ENT Exam Additional comments: tracheostomy in place, clean/dry/intact - Respiratory Exam Respiratory Exam: NORMAL BREATHING PATTERN - Cardiovascular Exam Cardiovascular Exam: Tachycardia - GI/Abdominal Exam GI & Abdominal Exam: Soft Additional comments: gastrostomy tube in place; dressing clean/dry/intact - Skin Skin Exam: Dry, Warm Assessment and Plan - Assessment and Plan (Free Text) Assessment: 52F with anoxic brain injury s/p trach & G-tube insertion; POD#1 Plan: - ok to start tube feeds at a low rate via G-tube - sutures from trach/G-tube can be removed in 2 weeks - no further surgical intervention - d/w Dr. Angie Guan
[2018-05-12] MEDS: Lactobacillus Acidophilus 500 MU Cap PO SCH ×2 (13:07→18:59)
[2018-05-12] MEDS: (Novolog) Insulin Aspart, Recombinant 100 u/ml 10 ml vial SC SCH ×4 (13:07→23:53)
[2018-05-12] MEDS: Pantoprazole 40 mg Susp UD NG SCH (13:07)
[2018-05-12] MEDS: Docusate-Senna 50 mg-8.6 mg Tab PO SCH ×2 (13:08→18:59)
--- NOTE | 2018-05-12 13:21 | CP.CCUPN ---
<Marycruz Plasencia - Last Filed: 05/12/18 13:19> CCU Subjective - Physician Review Events Since Last Encounter (Free Text): 05/12/18 13:20 No acute events overnight Subjective (Free Text): 05/12/18 13:19 PGY1 Critical Care Progress Note for Dr. Brennan Patient seen and examined at bedside this morning. Family at bedside. Patient mechanically ventilated. Patient is posturing, some response to pain today. Patient's family at bedside this morning. No acute events overnight, per nurse. Unable to obtained ROS due to clinical condition. Of note, patient is s/p Trach and PEG with Dr. Adams. Critical Care Time Spent (in minutes): 35 CCU Objective - Vital Signs / Intake & Output Vital Signs (Last 4 hours): Vital Signs Pulse Resp BP Pulse Ox 05/12/18 12:00 116 H 20 100 05/12/18 11:45 106 H 21 100 05/12/18 11:30 114 H 15 100 05/12/18 11:15 111 H 20 100 05/12/18 11:07 113 H 18 109/70 100 05/12/18 11:00 117 H 19 100 05/12/18 10:45 99 H 18 99 05/12/18 10:30 103 H 19 100 05/12/18 10:15 110 H 17 98 05/12/18 10:07 112 H 20 134/95 H 98 05/12/18 10:00 121 H 28 H 100 05/12/18 09:45 112 H 24 100 05/12/18 09:33 114 H 24 162/74 H 100 05/12/18 09:30 115 H 26 H 100 Intake and Output (Last 8hrs): Intake & Output 05/11/18 05/12/18 05/12/18 22:59 06:59 14:59 Intake Total 200 300 300 Output Total 780 395 200 Balance -580 -95 100 Weight 160 lb 14.999 oz Intake: Intake, IV Amount 200 300 300 Right Proximal Port PICC 200 300 300 Oral 0 0 0 Tube Feeding 0 Output: Gastric Amount 25 Stomach 25 Urine 755 395 200 Urethral (Alvarado) 755 395 200 Oral Regurgitation 0 Other: # Bowel Movements 0 - Physical Exam Pupils: Positive for: PERRL Extroacular Muscles: Negative for: EOMI Conjunctiva: Positive for: Normal Mouth: Positive for: Moist Mucous Membranes Nose (External): Positive for: Atraumatic. Negative for: Lesions Nose (Internal): Positive for: Normal Inspection, No Active Bleeding Neck: Positive for: Trachea Midline, Other (skin changes (reddish/hyperpigmented) consisent with ligation around neck ). Negative for: Meningeal Signs Cardiovascular: Positive for: Normal S1, S2, Tachycardic Abdomen: Negative for: Distention, Rebound, Guarding Breast/Axillary: Positive for: Other (Bruising in axillae bilaterally ) Lower Extremity: Positive for: Normal Inspection. Negative for: Edema Neurological: Positive for: Other (GCS=6T). Negative for: CN II-XII Intact Skin: Positive for: Warm, Dry, Normal Color Psychiatric: Negative for: Alert, Oriented x 3 - Medications Active Medications: Active Medications Generic Name Dose Route Start Last Admin Trade Name Freq PRN Reason Stop Dose Admin Albuterol/Ipratropium 3 ml 05/02/18 04:00 05/12/18 11:23 Duoneb 3 Mg/0.5 Mg (3 Ml) Ud INH 3 ml RQ4 BETH Administration Amlodipine Besylate 10 mg 05/07/18 10:00 05/12/18 13:07 Norvasc PO Not Given DAILY BETH Aspirin 81 mg 05/02/18 10:00 05/10/18 09:45 Ecotrin PO 81 mg DAILY BETH Administration Bisacodyl 10 mg 05/07/18 08:19 05/10/18 09:45 Dulcolax DE 10 mg TID PRN Administration Constipation Dextrose 0 ml 05/03/18 12:05 Dextrose 50% Inj IV STAT PRN Hypoglycemia Protocol Protocol Dextrose 15 gm 05/03/18 12:05 Glutose 15 PO ONCE PRN Hypoglycemia Protocol Protocol Glucagon 1 mg 05/03/18 12:05 Glucagen Diagnostic Kit IM STAT PRN Hypoglycemia Protocol Protocol Heparin Sodium (Porcine) 5,000 units 05/12/18 14:00 Heparin SC Q8 BETH Levetiracetam 1,000 mg/ Sodium 110 mls @ 420 mls/hr 05/02/18 11:30 05/11/18 23:05 Chloride IVPB 420 mls/hr Q12H BETH Administration Meropenem 1 gm/ Sodium 100 mls @ 100 mls/hr 05/02/18 18:30 05/12/18 02:44 Chloride IVPB 100 mls/hr Q8H BETH Administration Protocol Dextrose 1,000 mls @ 0 mls/hr 05/05/18 13:57 Dextrose 5% In Water 1000 Ml IV .Q0M PRN Hypoglycemia Protocol Protocol Per Protocol Metronidazole 500 mg in 100 mls @ 100 mls/hr 05/11/18 18:00 05/12/18 01:33 Flagyl IVPB 100 mls/hr Q8H BETH Administration Protocol Ibuprofen 200 mg 05/05/18 17:37 05/05/18 20:00 Motrin Oral Susp PO 200 mg Q6H PRN Administration Fever >100.4 F Insulin Aspart 0 unit 05/03/18 18:00 05/12/18 13:07 Novolog SC Not Given Q6 [facility] Protocol Insulin Glargine 10 unit 05/06/18 10:00 05/10/18 09:45 Lantus SC 10 u DAILY BETH Administration Labetalol HCl 10 mg 05/06/18 17:31 05/09/18 16:42 Trandate IVP 10 mg Q4H PRN Administration Systolic Blood Pressure Lactobacillus Acidophilus 1 cap 05/07/18 10:00 05/12/18 13:07 Bacid Acidophilus PO Not Given BID [facility] Lactulose 20 gm 05/09/18 08:55 05/10/18 09:45 Enulose PO 20 gm DAILY PRN Administration Constipation Lorazepam 1 mg 05/07/18 21:18 05/10/18 18:39 Ativan IVP 1 mg Q4 PRN Administration Restlessness Metoprolol Tartrate 75 mg 05/06/18 18:04 05/12/18 13:07 Lopressor PO Not Given BID [facility] Morphine Sulfate 2 mg 05/11/18 17:22 05/11/18 18:00 Morphine IVP 2 mg Q4 PRN Administration Pain, moderate (4-7) Pantoprazole Sodium 40 mg 05/06/18 10:00 05/12/18 13:07 Protonix Susp NG Not Given DAILY [facility] Rosuvastatin Calcium 5 mg 05/03/18 22:00 05/11/18 22:00 Crestor PO Not Given HS [facility] Senna/Docusate Sodium 1 tab 05/07/18 18:00 05/12/18 13:08 Senokot S 50 Mg-8.6 Mg PO Not Given BID [facility] Thiamine HCl 100 mg 10/29/18 10:45 05/11/18 09:55 Vitamin B1 Inj IV 100 mg DAILY BETH Administration - Patient Studies Lab Studies: Lab Studies 05/12/18 05/12/18 05/12/18 Range/Units : 06:01 06:01 WBC 15.8 H (4.8-10.8) K/uL RBC 3.75 L (3.80-5.20) Mil/uL Hgb 9.8 L (11.0-16.0) g/dL Hct 30.2 L (34.0-47.0) % MCV 80.4 L (81.0-99.0) fL MCH 26.1 L (27.0-31.0) pg MCHC 32.5 L (33.0-37.0) g/dL RDW 15.4 H (11.5-14.5) % Plt Count 234 (130-400) K/uL MPV 12.7 H (7.2-11.7) fL Neut % (Auto) 82.2 H (50.0-75.0) % Lymph % (Auto) 8.2 L (20.0-40.0) % [place] % (Auto) 7.3 (0.0-10.0) % Eos % (Auto) 1.1 (0.0-4.0) % Baso % (Auto) 1.2 (0.0-2.0) % Neut # (Auto) 13.0 H (1.8-7.0) K/uL Lymph # (Auto) 1.3 (1.0-4.3) K/uL [place] # (Auto) 1.2 H (0.0-0.8) K/uL Eos # (Auto) 0.2 (0.0-0.7) K/uL Baso # (Auto) 0.2 (0.0-0.2) K/uL Neutrophils % (Manual) 89 H (50-75) % Band Neutrophils % 1 (0-2) % Lymphocytes % (Manual) 6 L (20-40) % Monocytes % (Manual) 4 (0-10) % Platelet Estimate Normal (NORMAL) Polychromasia Slight Hypochromasia (manual) Slight Anisocytosis (manual) Slight Sodium 145 (132-148) mmol/L Potassium 3.9 (3.6-5.2) mmol/L Chloride 115 H (98-107) mmol/L Carbon Dioxide 21 L (22-30) mmol/L Anion Gap 13 (10-20) BUN 16 (7-17) mg/dL Creatinine 0.8 (0.7-1.2) mg/dL Est GFR ( Amer) > 60 Est GFR (Non-Af Amer) > 60 POC Glucose (mg/dL) 215 H (65-110) mg/dL Random Glucose 205 H (65-105) mg/dL Calcium 7.5 L (8.6-10.4) mg/dl Phosphorus 2.3 L (2.5-4.5) mg/dL Magnesium 2.3 (1.6-2.3) mg/dL Total Bilirubin 0.7 (0.2-1.3) mg/dL AST 64 H (14-36) U/L ALT 58 H (9-52) U/L Alkaline Phosphatase 298 H (38-126) U/L Total Protein 5.8 L (6.3-8.3) g/dL Albumin 2.6 L (3.5-5.0) g/dL Globulin 3.1 (2.2-3.9) gm/dL Albumin/Globulin Ratio 0.8 L (1.0-2.1) RPR (NONREACTIVE) Hepatitis A IgM Ab (NEGATIVE) Hep Bs Antigen (NEGATIVE) Hep Bs Antibody (NEGATIVE) Hep B Core IgM Ab (NEGATIVE) Hepatitis C Antibody (NEGATIVE) HIV 1&2 Ag/Ab, 4th Gen (Nonreactive) 05/12/18 05/12/18 05/11/18 Range/Units 04:41 00:02 17:48 WBC (4.8-10.8) K/uL RBC (3.80-5.20) Mil/uL Hgb (11.0-16.0) g/dL Hct (34.0-47.0) % MCV (81.0-99.0) fL MCH (27.0-31.0) pg MCHC (33.0-37.0) g/dL RDW (11.5-14.5) % Plt Count (130-400) K/uL MPV (7.2-11.7) fL Neut % (Auto) (50.0-75.0) % Lymph % (Auto) (20.0-40.0) % [place] % (Auto) (0.0-10.0) % Eos % (Auto) (0.0-4.0) % Baso % (Auto) (0.0-2.0) % Neut # (Auto) (1.8-7.0) K/uL Lymph # (Auto) (1.0-4.3) K/uL [place] # (Auto) (0.0-0.8) K/uL Eos # (Auto) (0.0-0.7) K/uL Baso # (Auto) (0.0-0.2) K/uL Neutrophils % (Manual) (50-75) % Band Neutrophils % (0-2) % Lymphocytes % (Manual) (20-40) % Monocytes % (Manual) (0-10) % Platelet Estimate (NORMAL) Polychromasia Hypochromasia (manual) Anisocytosis (manual) Sodium (132-148) mmol/L Potassium (3.6-5.2) mmol/L Chloride (98-107) mmol/L Carbon Dioxide (22-30) mmol/L Anion Gap (10-20) BUN (7-17) mg/dL Creatinine (0.7-1.2) mg/dL Est GFR ( Amer) Est GFR (Non-Af Amer) POC Glucose (mg/dL) 219 H 201 H 164 H (65-110) mg/dL Random Glucose (65-105) mg/dL Calcium (8.6-10.4) mg/dl Phosphorus (2.5-4.5) mg/dL Magnesium (1.6-2.3) mg/dL Total Bilirubin (0.2-1.3) mg/dL AST (14-36) U/L ALT (9-52) U/L Alkaline Phosphatase (38-126) U/L Total Protein (6.3-8.3) g/dL Albumin (3.5-5.0) g/dL Globulin (2.2-3.9) gm/dL Albumin/Globulin Ratio (1.0-2.1) RPR (NONREACTIVE) Hepatitis A IgM Ab (NEGATIVE) Hep Bs Antigen (NEGATIVE) Hep Bs Antibody (NEGATIVE) Hep B Core IgM Ab (NEGATIVE) Hepatitis C Antibody (NEGATIVE) HIV 1&2 Ag/Ab, 4th Gen (Nonreactive) 05/11/18 05/11/18 05/11/18 Range/Units 13:57 13:41 13:41 WBC (4.8-10.8) K/uL RBC (3.80-5.20) Mil/uL Hgb (11.0-16.0) g/dL Hct (34.0-47.0) % MCV (81.0-99.0) fL MCH (27.0-31.0) pg MCHC (33.0-37.0) g/dL RDW (11.5-14.5) % Plt Count (130-400) K/uL MPV (7.2-11.7) fL Neut % (Auto) (50.0-75.0) % Lymph % (Auto) (20.0-40.0) % [place] % (Auto) (0.0-10.0) % Eos % (Auto) (0.0-4.0) % Baso % (Auto) (0.0-2.0) % Neut # (Auto) (1.8-7.0) K/uL Lymph # (Auto) (1.0-4.3) K/uL [place] # (Auto) (0.0-0.8) K/uL Eos # (Auto) (0.0-0.7) K/uL Baso # (Auto) (0.0-0.2) K/uL Neutrophils % (Manual) (50-75) % Band Neutrophils % (0-2) % Lymphocytes % (Manual) (20-40) % Monocytes % (Manual) (0-10) % Platelet Estimate (NORMAL) Polychromasia Hypochromasia (manual) Anisocytosis (manual) Sodium (132-148) mmol/L Potassium (3.6-5.2) mmol/L Chloride (98-107) mmol/L Carbon Dioxide (22-30) mmol/L Anion Gap (10-20) BUN (7-17) mg/dL Creatinine (0.7-1.2) mg/dL Est GFR ( Amer) Est GFR (Non-Af Amer) POC Glucose (mg/dL) (65-110) mg/dL Random Glucose (65-105) mg/dL Calcium (8.6-10.4) mg/dl Phosphorus (2.5-4.5) mg/dL Magnesium (1.6-2.3) mg/dL Total Bilirubin (0.2-1.3) mg/dL AST (14-36) U/L ALT (9-52) U/L Alkaline Phosphatase (38-126) U/L Total Protein (6.3-8.3) g/dL Albumin (3.5-5.0) g/dL Globulin (2.2-3.9) gm/dL Albumin/Globulin Ratio (1.0-2.1) RPR Nonreactive (NONREACTIVE) Hepatitis A IgM Ab (NEGATIVE) Hep Bs Antigen (NEGATIVE) Hep Bs Antibody Negative (NEGATIVE) Hep B Core IgM Ab (NEGATIVE) Hepatitis C Antibody (NEGATIVE) HIV 1&2 Ag/Ab, 4th Gen Nonreactive (Nonreactive) 05/11/18 Range/Units 13:41 WBC (4.8-10.8) K/uL RBC (3.80-5.20) Mil/uL Hgb (11.0-16.0) g/dL Hct (34.0-47.0) % MCV (81.0-99.0) fL MCH (27.0-31.0) pg MCHC (33.0-37.0) g/dL RDW (11.5-14.5) % Plt Count (130-400) K/uL MPV (7.2-11.7) fL Neut % (Auto) (50.0-75.0) % Lymph % (Auto) (20.0-40.0) % [place] % (Auto) (0.0-10.0) % Eos % (Auto) (0.0-4.0) % Baso % (Auto) (0.0-2.0) % Neut # (Auto) (1.8-7.0) K/uL Lymph # (Auto) (1.0-4.3) K/uL [place] # (Auto) (0.0-0.8) K/uL Eos # (Auto) (0.0-0.7) K/uL Baso # (Auto) (0.0-0.2) K/uL Neutrophils % (Manual) (50-75) % Band Neutrophils % (0-2) % Lymphocytes % (Manual) (20-40) % Monocytes % (Manual) (0-10) % Platelet Estimate (NORMAL) Polychromasia Hypochromasia (manual) Anisocytosis (manual) Sodium (132-148) mmol/L Potassium (3.6-5.2) mmol/L Chloride (98-107) mmol/L Carbon Dioxide (22-30) mmol/L Anion Gap (10-20) BUN (7-17) mg/dL Creatinine (0.7-1.2) mg/dL Est GFR ( Amer) Est GFR (Non-Af Amer) POC Glucose (mg/dL) (65-110) mg/dL Random Glucose (65-105) mg/dL Calcium (8.6-10.4) mg/dl Phosphorus (2.5-4.5) mg/dL Magnesium (1.6-2.3) mg/dL Total Bilirubin (0.2-1.3) mg/dL AST (14-36) U/L ALT (9-52) U/L Alkaline Phosphatase (38-126) U/L Total Protein (6.3-8.3) g/dL Albumin (3.5-5.0) g/dL Globulin (2.2-3.9) gm/dL Albumin/Globulin Ratio (1.0-2.1) RPR (NONREACTIVE) Hepatitis A IgM Ab Negative (NEGATIVE) Hep Bs Antigen Negative (NEGATIVE) Hep Bs Antibody (NEGATIVE) Hep B Core IgM Ab Negative (NEGATIVE) Hepatitis C Antibody Negative (NEGATIVE) HIV 1&2 Ag/Ab, 4th Gen (Nonreactive) Laboratory Results - last 24 hr 05/11/18 05/11/18 05/11/18 13:41 13:41 13:41 WBC RBC Hgb Hct MCV MCH MCHC RDW Plt Count MPV Neut % (Auto) Lymph % (Auto) [place] % (Auto) Eos % (Auto) Baso % (Auto) Neut # (Auto) Lymph # (Auto) [place] # (Auto) Eos # (Auto) Baso # (Auto) Neutrophils % (Manual) Band Neutrophils % Lymphocytes % (Manual) Monocytes % (Manual) Platelet Estimate Polychromasia Hypochromasia (manual) Anisocytosis (manual) Sodium Potassium Chloride Carbon Dioxide Anion Gap BUN Creatinine Est GFR ( Amer) Est GFR (Non-Af Amer) POC Glucose (mg/dL) Random Glucose Calcium Phosphorus Magnesium Total Bilirubin AST ALT Alkaline Phosphatase Total Protein Albumin Globulin Albumin/Globulin Ratio RPR Nonreactive Hepatitis A IgM Ab Negative Hep Bs Antigen Negative Hep Bs Antibody Negative Hep B Core IgM Ab Negative Hepatitis C Antibody Negative HIV 1&2 Ag/Ab, 4th Gen 05/11/18 05/11/18 05/12/18 13:57 17:48 00:02 WBC RBC Hgb Hct MCV MCH MCHC RDW Plt Count MPV Neut % (Auto) Lymph % (Auto) [place] % (Auto) Eos % (Auto) Baso % (Auto) Neut # (Auto) Lymph # (Auto) [place] # (Auto) Eos # (Auto) Baso # (Auto) Neutrophils % (Manual) Band Neutrophils % Lymphocytes % (Manual) Monocytes % (Manual) Platelet Estimate Polychromasia Hypochromasia (manual) Anisocytosis (manual) Sodium Potassium Chloride Carbon Dioxide Anion Gap BUN Creatinine Est GFR ( Amer) Est GFR (Non-Af Amer) POC Glucose (mg/dL) 164 H 201 H Random Glucose Calcium Phosphorus Magnesium Total Bilirubin AST ALT Alkaline Phosphatase Total Protein Albumin Globulin Albumin/Globulin Ratio RPR Hepatitis A IgM Ab Hep Bs Antigen Hep Bs Antibody Hep B Core IgM Ab Hepatitis C Antibody HIV 1&2 Ag/Ab, 4th Gen Nonreactive 05/12/18 05/12/18 05/12/18 04:41 06:01 06:01 WBC 15.8 H RBC 3.75 L Hgb 9.8 L Hct 30.2 L MCV 80.4 L MCH 26.1 L MCHC 32.5 L RDW 15.4 H Plt Count 234 MPV 12.7 H Neut % (Auto) 82.2 H Lymph % (Auto) 8.2 L [place] % (Auto) 7.3 Eos % (Auto) 1.1 Baso % (Auto) 1.2 Neut # (Auto) 13.0 H Lymph # (Auto) 1.3 [place] # (Auto) 1.2 H Eos # (Auto) 0.2 Baso # (Auto) 0.2 Neutrophils % (Manual) 89 H Band Neutrophils % 1 Lymphocytes % (Manual) 6 L Monocytes % (Manual) 4 Platelet Estimate Normal Polychromasia Slight Hypochromasia (manual) Slight Anisocytosis (manual) Slight Sodium 145 Potassium 3.9 Chloride 115 H Carbon Dioxide 21 L Anion Gap 13 BUN 16 Creatinine 0.8 Est GFR ( Amer) > 60 Est GFR (Non-Af Amer) > 60 POC Glucose (mg/dL) 219 H Random Glucose 205 H Calcium 7.5 L Phosphorus 2.3 L Magnesium 2.3 Total Bilirubin 0.7 AST 64 H ALT 58 H Alkaline Phosphatase 298 H Total Protein 5.8 L Albumin 2.6 L Globulin 3.1 Albumin/Globulin Ratio 0.8 L RPR Hepatitis A IgM Ab Hep Bs Antigen Hep Bs Antibody Hep B Core IgM Ab Hepatitis C Antibody HIV 1&2 Ag/Ab, 4th Gen 05/12/18 11:18 WBC RBC Hgb Hct MCV MCH MCHC RDW Plt Count MPV Neut % (Auto) Lymph % (Auto) [place] % (Auto) Eos % (Auto) Baso % (Auto) Neut # (Auto) Lymph # (Auto) [place] # (Auto) Eos # (Auto) Baso # (Auto) Neutrophils % (Manual) Band Neutrophils % Lymphocytes % (Manual) Monocytes % (Manual) Platelet Estimate Polychromasia Hypochromasia (manual) Anisocytosis (manual) Sodium Potassium Chloride Carbon Dioxide Anion Gap BUN Creatinine Est GFR ( Amer) Est GFR (Non-Af Amer) POC Glucose (mg/dL) 215 H Random Glucose Calcium Phosphorus Magnesium Total Bilirubin AST ALT Alkaline Phosphatase Total Protein Albumin Globulin Albumin/Globulin Ratio RPR Hepatitis A IgM Ab Hep Bs Antigen Hep Bs Antibody Hep B Core IgM Ab Hepatitis C Antibody HIV 1&2 Ag/Ab, 4th Gen Fingerstick Blood Sugar Results: 201 Review of Systems - Review of Systems Systems not reviewed;Unavailable: Acuity of Condition Critical Care Progress Note - Nutrition Nutrition: Nutrition Category Date Time Status NPO Diet [DIET] Diets 05/10/18 Dinner Active Assessment/Plan - Assessment and Plan (Free Text) Assessment: This is a 52 year old female with probable past medical history of diabetes mellitus type 2 who was found unresponsive by on 05/01 (reportedly). EMS was called and patient was resuscitated and subsequently intubated on the field and brought to the ED. While in the ED: CODE STROKE was called, patient was agustin bsequently admitted to ICU for close monitoring and evaluation for anoxic brain injury. Patient was noted on physical exam to have ring monge suggestive of suicidal attempt by hanging. [employer] is involved and state high likelihood of suicidal attempt. Patient is s/p tracheostomy and PEG by Dr. Adams. Neuro: Anoxic Brain Injury Possibly 2/2 Asphyxiation Possibly 2/2 Suicidal Attempt Via Hanging - Patient s/p tracheostomy and PEG by Dr. Adams. - Maintain bed elevation at 30 degrees - DDAVP 1mcg IVP once administered - [employer] involved and on case - Dr. Duff consulted: recommendations appreciated * Poor prognosis, but with some improvement in the exam * From 05/04 note: continue current management. * MRI brain: Findings most compatible with subacute favored over acute cerebral hypoxic insult with minimal involvement of the lower haris and the cerebellar hemispsheres as well. Blood flow in the basilar and bilateral cavernous internal carotid artery segments appears adequately maintained. - EEG obtained: showed diffuse encephalopathy with burst suppression - CT without contrast 05/01 official report: * Negative CT of the brain. Incidental ethmoid sinusitis. - Repeat CT without contrast 05/03 official report: * Stable poor cortical medullary differentiation with scattered edematous changes. No significant interval changes - Repeat CT without contrast 05/04 official report: * Little interval change in poor corticomedullary differentiation an indistinct appearance of the basal ganglia compatible with mild cerebral edema * Abnormal appearance of bilateral thalamocapsular regions concerning for hypoxic anoxic insult. - Patient was transferred to [facility] for MRI brain without contrast 05/05: * cortical ischemia conssistent with anoxic pattern; ischemia to the midbrain consistent with CT findings. - Continue neuro checks - Monitor CV: - Rule out ACS: serial trops Q8 negative x3 - Original EKG did not meet code heart criteria. - 3rd Trop elevated to 5.06 05/02 - pro BNP 35 - Heparin SC - ECHO official report: * LV systolic function is normal * EF > 70% * Transmitral Doppler flow pattern is Grade I- abnormal relaxation pattern - Tachycardia resolved - Discontinued: Nicardipine 5 mg/hr drip - Cardiology consulted; Dr. Gay; recommendations appreciated * Amlodipine 10 mg PO, Vasotec 1.25 mg IV and Metoprolol 5 mg IV given overnight. Will likely increase daily B bartolo - ASA, Statin, B-bartolo medical therapy - Continue to monitor - Monitor Pulm: Acute Respiratory Failure - on mechanical ventilation: decreased PEEP to 3 - Continue to titrate FiO2 to keep SpO2 > 92 - Continue bronchodilators - Monitor - CT chest abdomen pelvis without contrast official report: * Minimal bilateral pleural effusions * No fracture * No pneumothorax * Multifocal infiltrates at the bilateral upper and lower lobes as well as the right middle lobe in a pattern that could reflect aspiration given dependent subsegment affected Renal: Acute Renal Failure, improving - Consistent with ATN 2/2 ischemic vs septic - Concrete Paving Supervisor consulted, recommendations appreciated * Agree with continue IVF as NS instead on 1/2 NS as has cerebral edema * Prefer to keep serum Na on higher side. * Once cerebral edema improves; switch to 0.45% saline. - Discontinued: 0.45% saline started @200mls/hr - Good urine output - No need for dialysis at this time Metabolic Acidosis - Likely 2/2 elevated lactic acid and/or DKA and/or ETOH consumption - Glycemic control - Continue to trend lactic acid - Monitor - Continue Thiamine 100 mg IV daily GI: - No acute issues - PEG: tube feeds (Glucerna) starting at 25 - Pepcid for Ppx - CT chest abdomen pelvis without contrast official report: * Findings suspicious for segmental colitis involving separate vascular distribution of the colon. Limited abdominal and pelvic ascites noted. No free intra peritoneal gas collection appreciable Endo: Likely history of Diabetes Mellitus Type 2: uncontrolled - ISS: moderate - Glargine 10 units IVP daily (hold prior to surgery due to holding feeds past midnight) - Hypoglycemic protocol - Accu checks Q6 - NPO diet - IVF - TSH - HgbA1c ID: Sepsis: suspect aspiration pneumonia - ID consulted (Dr. Mcgill); recommendations appreciated * Vanco - Discontinued * Zosyn - Discontinued * Flagyl on board * Continue: Meropenem - Sommers culture - Serial Lactic Acid; improving - Chest X-Ray 05/03: * Improved aeration in the right lower lobe with persistent dense consolidation and presumable patchy pneumonia in the left lower lobe. * Stable position of support tubes. Dispo: Patient is s/p tracheostomy and PEG placement (Dr. Adams) Consults: General Surgery (Dr. Kerns); Cardio (Dr. Gay); Neurohospitalist; Palliative care (Yesenia); Nephro (Dr. Samuels); ID (Dr. Mcgill); social and human services assistant; wound care; Ppx: DVT: SCD & heparin, GI: protonix Code status: FULL CODE (unknown) Next of kin: Prognosis: Very Poor Patient seen and case discussed in detail with Dr. Mika Plasencia PGY1 <Mookie Brennan S - Last Filed: 05/12/18 17:41> CCU Objective - Vital Signs / Intake & Output Vital Signs (Last 4 hours): Vital Signs Pulse Resp BP Pulse Ox 05/12/18 16:45 107 H 19 99 05/12/18 16:30 107 H 19 99 05/12/18 16:15 108 H 15 100 05/12/18 16:07 104 H 20 153/77 H 100 05/12/18 16:00 96 H 18 100 05/12/18 15:45 109 H 16 100 05/12/18 15:30 96 H 18 98 05/12/18 15:15 83 18 99 05/12/18 15:07 88 18 96/50 L 97 05/12/18 15:00 105 H 19 100 05/12/18 14:45 102 H 22 99 05/12/18 14:30 113 H 17 99 05/12/18 14:15 107 H 19 100 05/12/18 14:07 108 H 19 155/63 H 100 05/12/18 14:00 111 H 22 100 05/12/18 13:45 100 H 19 100 Intake and Output (Last 8hrs): Intake & Output 05/12/18 05/12/18 05/12/18 06:59 14:59 22:59 Intake Total 300 300 Output Total 395 200 Balance -95 100 Weight 160 lb 14.999 oz Intake: Intake, IV Amount 300 300 Right Proximal Port PICC 300 300 Oral 0 0 Tube Feeding 0 Output: Urine 395 200 Urethral (Alvarado) 395 200 - Medications Active Medications: Active Medications Generic Name Dose Route Start Last Admin Trade Name Freq PRN Reason Stop Dose Admin Albuterol/Ipratropium 3 ml 05/02/18 04:00 05/12/18 15:55 Duoneb 3 Mg/0.5 Mg (3 Ml) Ud INH 3 ml RQ4 BETH Administration Amlodipine Besylate 10 mg 05/07/18 10:00 05/12/18 13:07 Norvasc PO Not Given DAILY BETH Aspirin 81 mg 05/02/18 10:00 05/10/18 09:45 Ecotrin PO 81 mg DAILY BETH Administration Bisacodyl 10 mg 05/07/18 08:19 05/10/18 09:45 Dulcolax DE 10 mg TID PRN Administration Constipation Dextrose 0 ml 05/03/18 12:05 Dextrose 50% Inj IV STAT PRN Hypoglycemia Protocol Protocol Dextrose 15 gm 05/03/18 12:05 Glutose 15 PO ONCE PRN Hypoglycemia Protocol Protocol Glucagon 1 mg 05/03/18 12:05 Glucagen Diagnostic Kit IM STAT PRN Hypoglycemia Protocol Protocol Heparin Sodium (Porcine) 5,000 units 05/12/18 14:00 05/12/18 14:52 Heparin SC 5,000 units Q8 BETH Administration Levetiracetam 1,000 mg/ Sodium 110 mls @ 420 mls/hr 05/02/18 11:30 05/12/18 10:57 Chloride IVPB 420 mls/hr Q12H BETH Administration Meropenem 1 gm/ Sodium 100 mls @ 100 mls/hr 05/02/18 18:30 05/12/18 10:56 Chloride IVPB 100 mls/hr Q8H BETH Administration Protocol Dextrose 1,000 mls @ 0 mls/hr 05/05/18 13:57 Dextrose 5% In Water 1000 Ml IV .Q0M PRN Hypoglycemia Protocol Protocol Per Protocol Metronidazole 500 mg in 100 mls @ 100 mls/hr 05/11/18 18:00 05/12/18 09:57 Flagyl IVPB 100 mls/hr Q8H BETH Administration Protocol Ibuprofen 200 mg 05/05/18 17:37 05/05/18 20:00 Motrin Oral Susp PO 200 mg Q6H PRN Administration Fever >100.4 F Insulin Aspart 0 unit 05/03/18 18:00 05/12/18 13:07 Novolog SC Not Given Q6 BETH Protocol Insulin Glargine 10 unit 05/06/18 10:00 05/10/18 09:45 Lantus SC 10 u DAILY BETH Administration Labetalol HCl 10 mg 05/06/18 17:31 05/09/18 16:42 Trandate IVP 10 mg Q4H PRN Administration Systolic Blood Pressure Lactobacillus Acidophilus 1 cap 05/07/18 10:00 05/12/18 13:07 Bacid Acidophilus PO Not Given BID BETH Lactulose 20 gm 05/09/18 08:55 05/10/18 09:45 Enulose PO 20 gm DAILY PRN Administration Constipation Lorazepam 1 mg 05/07/18 21:18 11/05/18 18:39 Ativan IVP 1 mg Q4 PRN Administration Restlessness Metoprolol Tartrate 75 mg 05/06/18 18:04 05/12/18 13:07 Lopressor PO Not Given BID BETH Morphine Sulfate 2 mg 05/11/18 17:22 05/11/18 18:00 Morphine IVP 2 mg Q4 PRN Administration Pain, moderate (4-7) Pantoprazole Sodium 40 mg 05/06/18 10:00 05/12/18 13:07 Protonix Susp NG Not Given DAILY B[facility] Rosuvastatin Calcium 5 mg 05/03/18 22:00 05/11/18 22:00 Crestor PO Not Given HS [facility] Senna/Docusate Sodium 1 tab 05/07/18 18:00 05/12/18 13:08 Senokot S 50 Mg-8.6 Mg PO Not Given BID BETH Thiamine HCl 100 mg 05/03/18 10:45 05/12/18 10:05 Vitamin B1 Inj IV 100 mg DAILY BETH Administration - Patient Studies Lab Studies: Lab Studies 05/12/18 05/12/18 05/12/18 Range/Units 11: 06:01 06:01 WBC 15.8 H (4.8-10.8) K/uL RBC 3.75 L (3.80-5.20) Mil/uL Hgb 9.8 L (11.0-16.0) g/dL Hct 30.2 L (34.0-47.0) % MCV 80.4 L (81.0-99.0) fL MCH 26.1 L (27.0-31.0) pg MCHC 32.5 L (33.0-37.0) g/dL RDW 15.4 H (11.5-14.5) % Plt Count 234 (130-400) K/uL MPV 12.7 H (7.2-11.7) fL Neut % (Auto) 82.2 H (50.0-75.0) % Lymph % (Auto) 8.2 L (20.0-40.0) % [place] % (Auto) 7.3 (0.0-10.0) % Eos % (Auto) 1.1 (0.0-4.0) % Baso % (Auto) 1.2 (0.0-2.0) % Neut # (Auto) 13.0 H (1.8-7.0) K/uL Lymph # (Auto) 1.3 (1.0-4.3) K/uL [place] # (Auto) 1.2 H (0.0-0.8) K/uL Eos # (Auto) 0.2 (0.0-0.7) K/uL Baso # (Auto) 0.2 (0.0-0.2) K/uL Neutrophils % (Manual) 89 H (50-75) % Band Neutrophils % 1 (0-2) % Lymphocytes % (Manual) 6 L (20-40) % Monocytes % (Manual) 4 (0-10) % Platelet Estimate Normal (NORMAL) Polychromasia Slight Hypochromasia (manual) Slight Anisocytosis (manual) Slight Sodium 145 (132-148) mmol/L Potassium 3.9 (3.6-5.2) mmol/L Chloride 115 H (98-107) mmol/L Carbon Dioxide 21 L (22-30) mmol/L Anion Gap 13 (10-20) BUN 16 (7-17) mg/dL Creatinine 0.8 (0.7-1.2) mg/dL Est GFR ( Amer) > 60 Est GFR (Non-Af Amer) > 60 POC Glucose (mg/dL) 215 H (65-110) mg/dL Random Glucose 205 H (65-105) mg/dL Calcium 7.5 L (8.6-10.4) mg/dl Phosphorus 2.3 L (2.5-4.5) mg/dL Magnesium 2.3 (1.6-2.3) mg/dL Total Bilirubin 0.7 (0.2-1.3) mg/dL AST 64 H (14-36) U/L ALT 58 H (9-52) U/L Alkaline Phosphatase 298 H (38-126) U/L Total Protein 5.8 L (6.3-8.3) g/dL Albumin 2.6 L (3.5-5.0) g/dL Globulin 3.1 (2.2-3.9) gm/dL Albumin/Globulin Ratio 0.8 L (1.0-2.1) RPR (NONREACTIVE) HIV 1&2 Ag/Ab, 4th Gen (Nonreactive) 11/07/18 11/07/18 11/06/18 Range/Units 04:41 00:02 17:48 WBC (4.8-10.8) K/uL RBC (3.80-5.20) Mil/uL Hgb (11.0-16.0) g/dL Hct (34.0-47.0) % MCV (81.0-99.0) fL MCH (27.0-31.0) pg MCHC (33.0-37.0) g/dL RDW (11.5-14.5) % Plt Count (130-400) K/uL MPV (7.2-11.7) fL Neut % (Auto) (50.0-75.0) % Lymph % (Auto) (20.0-40.0) % [place] % (Auto) (0.0-10.0) % Eos % (Auto) (0.0-4.0) % Baso % (Auto) (0.0-2.0) % Neut # (Auto) (1.8-7.0) K/uL Lymph # (Auto) (1.0-4.3) K/uL [place] # (Auto) (0.0-0.8) K/uL Eos # (Auto) (0.0-0.7) K/uL Baso # (Auto) (0.0-0.2) K/uL Neutrophils % (Manual) (50-75) % Band Neutrophils % (0-2) % Lymphocytes % (Manual) (20-40) % Monocytes % (Manual) (0-10) % Platelet Estimate (NORMAL) Polychromasia Hypochromasia (manual) Anisocytosis (manual) Sodium (132-148) mmol/L Potassium (3.6-5.2) mmol/L Chloride (98-107) mmol/L Carbon Dioxide (22-30) mmol/L Anion Gap (10-20) BUN (7-17) mg/dL Creatinine (0.7-1.2) mg/dL Est GFR ( Amer) Est GFR (Non-Af Amer) POC Glucose (mg/dL) 219 H 201 H 164 H (65-110) mg/dL Random Glucose (65-105) mg/dL Calcium (8.6-10.4) mg/dl Phosphorus (2.5-4.5) mg/dL Magnesium (1.6-2.3) mg/dL Total Bilirubin (0.2-1.3) mg/dL AST (14-36) U/L ALT (9-52) U/L Alkaline Phosphatase (38-126) U/L Total Protein (6.3-8.3) g/dL Albumin (3.5-5.0) g/dL Globulin (2.2-3.9) gm/dL Albumin/Globulin Ratio (1.0-2.1) RPR (NONREACTIVE) HIV 1&2 Ag/Ab, 4th Gen (Nonreactive) 05/11/18 05/11/18 Range/Units 13:57 13:41 WBC (4.8-10.8) K/uL RBC (3.80-5.20) Mil/uL Hgb (11.0-16.0) g/dL Hct (34.0-47.0) % MCV (81.0-99.0) fL MCH (27.0-31.0) pg MCHC (33.0-37.0) g/dL RDW (11.5-14.5) % Plt Count (130-400) K/uL MPV (7.2-11.7) fL Neut % (Auto) (50.0-75.0) % Lymph % (Auto) (20.0-40.0) % [place] % (Auto) (0.0-10.0) % Eos % (Auto) (0.0-4.0) % Baso % (Auto) (0.0-2.0) % Neut # (Auto) (1.8-7.0) K/uL Lymph # (Auto) (1.0-4.3) K/uL [place] # (Auto) (0.0-0.8) K/uL Eos # (Auto) (0.0-0.7) K/uL Baso # (Auto) (0.0-0.2) K/uL Neutrophils % (Manual) (50-75) % Band Neutrophils % (0-2) % Lymphocytes % (Manual) (20-40) % Monocytes % (Manual) (0-10) % Platelet Estimate (NORMAL) Polychromasia Hypochromasia (manual) Anisocytosis (manual) Sodium (132-148) mmol/L Potassium (3.6-5.2) mmol/L Chloride (98-107) mmol/L Carbon Dioxide (22-30) mmol/L Anion Gap (10-20) BUN (7-17) mg/dL Creatinine (0.7-1.2) mg/dL Est GFR ( Amer) Est GFR (Non-Af Amer) POC Glucose (mg/dL) (65-110) mg/dL Random Glucose (65-105) mg/dL Calcium (8.6-10.4) mg/dl Phosphorus (2.5-4.5) mg/dL Magnesium (1.6-2.3) mg/dL Total Bilirubin (0.2-1.3) mg/dL AST (14-36) U/L ALT (9-52) U/L Alkaline Phosphatase (38-126) U/L Total Protein (6.3-8.3) g/dL Albumin (3.5-5.0) g/dL Globulin (2.2-3.9) gm/dL Albumin/Globulin Ratio (1.0-2.1) RPR Nonreactive (NONREACTIVE) HIV 1&2 Ag/Ab, 4th Gen Nonreactive (Nonreactive) Laboratory Results - last 24 hr 05/11/18 05/11/18 05/11/18 13:41 13:57 17:48 WBC RBC Hgb Hct MCV MCH MCHC RDW Plt Count MPV Neut % (Auto) Lymph % (Auto) [place] % (Auto) Eos % (Auto) Baso % (Auto) Neut # (Auto) Lymph # (Auto) [place] # (Auto) Eos # (Auto) Baso # (Auto) Neutrophils % (Manual) Band Neutrophils % Lymphocytes % (Manual) Monocytes % (Manual) Platelet Estimate Polychromasia Hypochromasia (manual) Anisocytosis (manual) Sodium Potassium Chloride Carbon Dioxide Anion Gap BUN Creatinine Est GFR ( Amer) Est GFR (Non-Af Amer) POC Glucose (mg/dL) 164 H Random Glucose Calcium Phosphorus Magnesium Total Bilirubin AST ALT Alkaline Phosphatase Total Protein Albumin Globulin Albumin/Globulin Ratio RPR Nonreactive HIV 1&2 Ag/Ab, 4th Gen Nonreactive 11/07/18 11/07/18 11/07/18 00:02 04:41 06:01 WBC 15.8 H RBC 3.75 L Hgb 9.8 L Hct 30.2 L MCV 80.4 L MCH 26.1 L MCHC 32.5 L RDW 15.4 H Plt Count 234 MPV 12.7 H Neut % (Auto) 82.2 H Lymph % (Auto) 8.2 L [place] % (Auto) 7.3 Eos % (Auto) 1.1 Baso % (Auto) 1.2 Neut # (Auto) 13.0 H Lymph # (Auto) 1.3 [place] # (Auto) 1.2 H Eos # (Auto) 0.2 Baso # (Auto) 0.2 Neutrophils % (Manual) 89 H Band Neutrophils % 1 Lymphocytes % (Manual) 6 L Monocytes % (Manual) 4 Platelet Estimate Normal Polychromasia Slight Hypochromasia (manual) Slight Anisocytosis (manual) Slight Sodium Potassium Chloride Carbon Dioxide Anion Gap BUN Creatinine Est GFR ( Amer) Est GFR (Non-Af Amer) POC Glucose (mg/dL) 201 H 219 H Random Glucose Calcium Phosphorus Magnesium Total Bilirubin AST ALT Alkaline Phosphatase Total Protein Albumin Globulin Albumin/Globulin Ratio RPR HIV 1&2 Ag/Ab, 4th Gen 05/12/18 05/12/18 06:01 11:18 WBC RBC Hgb Hct MCV MCH MCHC RDW Plt Count MPV Neut % (Auto) Lymph % (Auto) [place] % (Auto) Eos % (Auto) Baso % (Auto) Neut # (Auto) Lymph # (Auto) [place] # (Auto) Eos # (Auto) Baso # (Auto) Neutrophils % (Manual) Band Neutrophils % Lymphocytes % (Manual) Monocytes % (Manual) Platelet Estimate Polychromasia Hypochromasia (manual) Anisocytosis (manual) Sodium 145 Potassium 3.9 Chloride 115 H Carbon Dioxide 21 L Anion Gap 13 BUN 16 Creatinine 0.8 Est GFR ( Amer) > 60 Est GFR (Non-Af Amer) > 60 POC Glucose (mg/dL) 215 H Random Glucose 205 H Calcium 7.5 L Phosphorus 2.3 L Magnesium 2.3 Total Bilirubin 0.7 AST 64 H ALT 58 H Alkaline Phosphatase 298 H Total Protein 5.8 L Albumin 2.6 L Globulin 3.1 Albumin/Globulin Ratio 0.8 L RPR HIV 1&2 Ag/Ab, 4th Gen Critical Care Progress Note - Nutrition Nutrition: Nutrition Category Date Time Status NPO Diet [DIET] Diets 05/10/18 Dinner Active Attending/Attestation - Attestation I have personally seen and examined this patient.: Yes I have fully participated in the care of the patient.: Yes I have reviewed all pertinent clinical information: Yes Notes (Text): 05/12/18 17:40 Patient seen and examined in the intensive care unit. Status post tracheostomy and PEG insertion No change in mental status Transfer to floor
--- NOTE | 2018-05-12 15:08 | CP.PCM.PN ---
Subjective - Date & Time of Evaluation Date of Evaluation: 05/12/18 Time of Evaluation: 15:08 - Subjective Subjective: seen and examined s/p trach and peg unresponsive on Vent support Objective - Vital Signs/Intake and Output Vital Signs (last 24 hours): Temp Pulse Resp BP Pulse Ox 98.5 F 116 H 20 109/70 100 05/12/18 06:00 05/12/18 12:00 05/12/18 12:00 05/12/18 11:07 05/12/18 12:00 Intake and Output: 05/12/18 05/12/18 06:59 18:59 Intake Total 300 300 Output Total 570 200 Balance -270 100 - Medications Medications: Current Medications Albuterol/Ipratropium (Duoneb 3 Mg/0.5 Mg (3 Ml) Ud) 3 ml INH RQ4 [facility] Last Admin: 05/12/18 11:23 Dose: 3 ml Amlodipine Besylate (Norvasc) 10 mg PO DAILY [facility] Last Admin: 05/12/18 13:07 Dose: Not Given Aspirin (Ecotrin) 81 mg PO DAILY [facility] Last Admin: 05/10/18 09:45 Dose: 81 mg Bisacodyl (Dulcolax) 10 mg MT TID PRN PRN Reason: Constipation Last Admin: 05/10/18 09:45 Dose: 10 mg Dextrose (Dextrose 50% Inj) 0 ml IV STAT PRN; Protocol PRN Reason: Hypoglycemia Protocol Dextrose (Glutose 15) 15 gm PO ONCE PRN; Protocol PRN Reason: Hypoglycemia Protocol Glucagon (Glucagen Diagnostic Kit) 1 mg IM STAT PRN; Protocol PRN Reason: Hypoglycemia Protocol Heparin Sodium (Porcine) (Heparin) 5,000 units SC Q8 [facility] Last Admin: 05/12/18 14:52 Dose: 5,000 units Levetiracetam 1,000 mg/ Sodium (Chloride) 110 mls @ 420 mls/hr IVPB Q12H [facility] Last Admin: 05/11/18 23:05 Dose: 420 mls/hr Meropenem 1 gm/ Sodium (Chloride) 100 mls @ 100 mls/hr IVPB Q8H [facility]; Protocol Last Admin: 05/12/18 02:44 Dose: 100 mls/hr Dextrose (Dextrose 5% In Water 1000 Ml) 1,000 mls @ 0 mls/hr IV .Q0M PRN; Protocol PRN Reason: Hypoglycemia Protocol Metronidazole (Flagyl) 500 mg in 100 mls @ 100 mls/hr IVPB Q8H [facility]; Protocol Last Admin: 05/12/18 01:33 Dose: 100 mls/hr Ibuprofen (Motrin Oral Susp) 200 mg PO Q6H PRN PRN Reason: Fever >100.4 F Last Admin: 05/05/18 20:00 Dose: 200 mg Insulin Aspart (Novolog) 0 unit SC Q6 [facility]; Protocol Last Admin: 05/12/18 13:07 Dose: Not Given Insulin Glargine (Lantus) 10 unit SC DAILY [facility] Last Admin: 05/10/18 09:45 Dose: 10 u Labetalol HCl (Trandate) 10 mg IVP Q4H PRN PRN Reason: Systolic Blood Pressure Last Admin: 05/09/18 16:42 Dose: 10 mg Lactobacillus Acidophilus (Bacid Acidophilus) 1 cap PO BID [facility] Last Admin: 05/12/18 13:07 Dose: Not Given Lactulose (Enulose) 20 gm PO DAILY PRN PRN Reason: Constipation Last Admin: 05/10/18 09:45 Dose: 20 gm Lorazepam (Ativan) 1 mg IVP Q4 PRN PRN Reason: Restlessness Last Admin: 05/10/18 18:39 Dose: 1 mg Metoprolol Tartrate (Lopressor) 75 mg PO BID [facility] Last Admin: 05/12/18 13:07 Dose: Not Given Morphine Sulfate (Morphine) 2 mg IVP Q4 PRN PRN Reason: Pain, moderate (4-7) Last Admin: 05/11/18 18:00 Dose: 2 mg Pantoprazole Sodium (Protonix Susp) 40 mg NG DAILY [facility] Last Admin: 05/12/18 13:07 Dose: Not Given Rosuvastatin Calcium (Crestor) 5 mg PO [facility] Last Admin: 05/11/18 22:00 Dose: Not Given Senna/Docusate Sodium (Senokot S 50 Mg-8.6 Mg) 1 tab PO BID [facility] Last Admin: 05/12/18 13:08 Dose: Not Given Thiamine HCl (Vitamin B1 Inj) 100 mg IV DAILY [facility] Last Admin: 05/11/18 09:55 Dose: 100 mg - Labs Labs: 05/12/18 06:01 11/07/18 06:01 PT 15.0 SECONDS (9.7-12.2) H 05/11/18 05:05 INR 1.4 05/11/18 05:05 APTT 31 SECONDS (21-34) 05/11/18 05:05 - Constitutional Appears: Chronically Ill - Head Exam Head Exam: absent: NORMAL INSPECTION (intubated) - Eye Exam Eye Exam: Normal appearance, PERRL - ENT Exam ENT Exam: Mucous Membranes Moist - Neck Exam Neck Exam: absent: Full ROM (trach) - Respiratory Exam Respiratory Exam: Clear to Ausculation Bilateral, NORMAL BREATHING PATTERN - Cardiovascular Exam Cardiovascular Exam: REGULAR RHYTHM - GI/Abdominal Exam GI & Abdominal Exam: Soft, Normal Bowel Sounds - Extremities Exam Extremities Exam: absent: Full ROM - Neurological Exam Neurological Exam: absent: Awake, Oriented x3 - Psychiatric Exam Psychiatric exam: Flat Affect - Skin Skin Exam: Dry, Normal Color Assessment and Plan - Assessment and Plan (Free Text) Plan: 1.Respiratory Failure Due to Asphyxiation/Possible Suicide Attempt Intubated and on [facility] Police were made aware tracheotomy today 2. NSTEMI Elevated troponin ASA 81 mg PO 1x/day Crestor 5 mg PO 1x/day Dr Gay consulted 3. Leukocytosis Likely Secondary to Aspiration Pneumonia Current Chest X Ray 05/09/18 shows no active disease Blood Culture 05/02/18 is negative at 5 days Urine Culture 05/06/18 shows NO growth Tracheal Aspirate 05/08/18 results yeast Flagyl 500 mg IV Q8H Meropenem 500 mg IV Q8H 4. Anoxic Brain Injury EEG showed diffuse encephalopathy with burst suppression. Repeat CT head-no bleeding MRI Brain: most compatible with subacute favored over acute cerebral hypoxic insult with minimal involvement of the lower haris and the cerebellar hemispheres Levatiracetam 1,000 mg IV Q12H Neurology Dr. Duff/[place] 5. Transaminitis Likely shock liver Follow LFTs 6. Diabetes mellitus sugar is high,we will increase lantus after GT placement Lantus 10 Units SC Aspart ISS Q6H 7. ARF Likely Secondary to ATN with Hypernatremia BUN/Cr have improved [employer] Dr. Samuels 8. HTN Metoprolol Tartrate 75 mg PO BID Norvasc 5 mg PO 1x/day Labetalol 10 mg IV Q4H PRN SBP > 140 9. Hyponatremia resolved,monitor sodium 10. Prophylaxis Heparin 5,000 Units SC Q8H Protonix 40 mg NGT Feeding hold s/p PEG
[2018-05-13] MEDS: Albuterol-Ipratrop 3 mg / 0.5 (3 ml) UD INH SCH ×6 (00:48→21:05)
[2018-05-13] MEDS: metroNIDAZOLE IV 500 mg/100 ml 500 MG/100 ML BAG IVPB SCH ×3 (01:18→17:48)
[2018-05-13] MEDS: Meropenem 1 GM in Sodium Chloride 0.9% 100 ML IVPB SCH ×3 (02:23→17:49)
[2018-05-13 06:06] LABS: BASO % 0.4 % (0.0-2.0); EOS # 0.1 K/uL (0.0-0.7); EOS % 1.1 % (0.0-4.0); HEMOGLOBIN 8.7 g/dL (11.0-16.0); LYMPH # 1.4 K/uL (1.0-4.3); LYMPH % 12.5 % (20.0-40.0); MEAN CELL VOLUME 79.2 fL (81.0-99.0); MEAN CORPUSCULAR HEMOGLOBIN 25.9 pg (27.0-31.0); MEAN CORPUSCULAR HGB CONC 32.8 g/dL (33.0-37.0); MEAN PLATELET VOLUME 11.3 fL (7.2-11.7); MONO # 0.9 K/uL (0.0-0.8); MONO % 7.6 % (0.0-10.0); NEUT # 8.9 K/uL (1.8-7.0); NEUT % 78.4 % (50.0-75.0); RBC 3.36 Mil/uL (3.80-5.20); RED CELL DISTRIBUTION WIDTH 15.5 % (11.5-14.5); WHITE BLOOD COUNT 11.3 K/uL (4.8-10.8)
[2018-05-13 06:29] LABS: ALB/GLOB RATIO 0.8 (1.0-2.1); ALBUMIN 2.3 g/dL (3.5-5.0); ALT/SGPT 53 U/L (9-52); AST/SGOT 46 U/L (14-36); BLOOD UREA NITROGEN 17 mg/dL (7-17); GFR NON-AFRICAN AMERICAN 58
[2018-05-13] MEDS: (Novolog) Insulin Aspart, Recombinant 100 u/ml 10 ml vial SC SCH ×5 (06:39→18:16)
--- NOTE | 2018-05-13 08:17 | CP.PCM.PN ---
Subjective - Date & Time of Evaluation Date of Evaluation: 05/13/18 Time of Evaluation: 07:46 - Subjective Subjective: Lamont Barclay, PGY-[address] Gay Patient seen and evaluated at bedside. Patient family member present. Spontaneous movements of eyes and lower extremities. Remains unresponsive on mechanical ventilation. S/p trach and peg placement POD #2. Objective - Vital Signs/Intake and Output Vital Signs (last 24 hours): Temp Pulse Resp BP Pulse Ox 101.4 F H 116 H 21 97/28 L 98 05/13/18 05:30 05/13/18 04:08 05/13/18 04:08 05/13/18 05:07 05/13/18 04:08 Intake and Output: 05/13/18 05/13/18 06:59 18:59 Intake Total 925 Output Total 600 Balance 325 - Medications Medications: Current Medications Albuterol/Ipratropium (Duoneb 3 Mg/0.5 Mg (3 Ml) Ud) 3 ml INH RQ4 [facility] Last Admin: 05/13/18 07:30 Dose: 3 ml Amlodipine Besylate (Norvasc) 10 mg PO DAILY [facility] Last Admin: 05/12/18 13:07 Dose: Not Given Aspirin (Ecotrin) 81 mg PO DAILY [facility] Last Admin: 05/10/18 09:45 Dose: 81 mg Bisacodyl (Dulcolax) 10 mg LA TID PRN PRN Reason: Constipation Last Admin: 05/10/18 09:45 Dose: 10 mg Dextrose (Dextrose 50% Inj) 0 ml IV STAT PRN; Protocol PRN Reason: Hypoglycemia Protocol Dextrose (Glutose 15) 15 gm PO ONCE PRN; Protocol PRN Reason: Hypoglycemia Protocol Glucagon (Glucagen Diagnostic Kit) 1 mg IM STAT PRN; Protocol PRN Reason: Hypoglycemia Protocol Heparin Sodium (Porcine) (Heparin) 5,000 units SC Q8 [facility] Last Admin: 05/13/18 05:30 Dose: 5,000 units Levetiracetam 1,000 mg/ Sodium (Chloride) 110 mls @ 420 mls/hr IVPB Q12H [facility] Last Admin: 05/12/18 23:47 Dose: 420 mls/hr Meropenem 1 gm/ Sodium (Chloride) 100 mls @ 100 mls/hr IVPB Q8H [facility]; Protocol Last Admin: 05/13/18 02:23 Dose: 100 mls/hr Dextrose (Dextrose 5% In Water 1000 Ml) 1,000 mls @ 0 mls/hr IV .Q0M PRN; Protocol PRN Reason: Hypoglycemia Protocol Metronidazole (Flagyl) 500 mg in 100 mls @ 100 mls/hr IVPB Q8H [facility]; Protocol Last Admin: 05/13/18 01:18 Dose: 100 mls/hr Ibuprofen (Motrin Oral Susp) 200 mg PO Q6H PRN PRN Reason: Fever >100.4 F Last Admin: 05/13/18 05:29 Dose: 200 mg Insulin Aspart (Novolog) [address] [facility]; Protocol Last Admin: 05/13/18 06:39 Dose: 2 units Insulin Glargine (Lantus) [address] [facility] Last Admin: 05/10/18 09:45 Dose: 10 u Labetalol HCl (Trandate) 10 mg IVP Q4H PRN PRN Reason: Systolic Blood Pressure Last Admin: 05/09/18 16:42 Dose: 10 mg Lactobacillus Acidophilus (Bacid Acidophilus) [address] [facility] Last Admin: 05/12/18 18:59 Dose: 1 cap Lactulose (Enulose) 20 gm PO DAILY PRN PRN Reason: Constipation Last Admin: 05/10/18 09:45 Dose: 20 gm Lorazepam (Ativan) 1 mg IVP Q4 PRN PRN Reason: Restlessness Last Admin: 05/13/18 07:47 Dose: 1 mg Metoprolol Tartrate (Lopressor) [address] [facility] Last Admin: 05/12/18 18:59 Dose: 75 mg Morphine Sulfate (Morphine) 2 mg IVP Q4 PRN PRN Reason: Pain, moderate (4-7) Last Admin: 05/12/18 10:15 Dose: 2 mg Pantoprazole Sodium (Protonix Susp) [address] [facility] Last Admin: 05/12/18 13:07 Dose: Not Given Potassium Phos/Sodium Phos (Neutra-Phos) 1 pkt PO ONCE ONE Stop: 05/13/18 07:58 Rosuvastatin Calcium (Crestor) [address] [facility] Last Admin: 05/12/18 22:37 Dose: 5 mg Senna/Docusate Sodium (Senokot S 50 Mg-8.6 Mg) [address] [facility] Last Admin: 05/12/18 18:59 Dose: 1 tab Thiamine HCl (Vitamin B1 Inj) [address] [facility] Last Admin: 05/12/18 10:05 Dose: 100 mg - Labs Labs: 05/13/18 05:56 05/13/18 05:56 PT 15.0 SECONDS (9.7-12.2) H 05/11/18 05:05 INR 1.4 05/11/18 05:05 APTT 31 SECONDS (21-34) 05/11/18 05:05 - Additional Findings Additional findings: Pupils: Positive for: PERRL Extroacular Muscles: unable to be assessed Conjunctiva: Positive for: Normal Mouth: Positive for: Moist Mucous Membranes. Extubated. Pulm: Diffuse course breath sounds bilaterallly Neck: Positive for: Trachea Midline, hyperpigmented circumferential ligation around neck). Tracheostomy in place. Not dislodged. Negative for: Meningeal Signs Cardiovascular: Positive for: Normal S1, S2, Tachycardic Abdomen: Peg tube in place. No obvious signs of bleeding. Dressings (4x4s) clear dry and intact. Negative for: Distention, Rebound, Guarding Skin: Positive for: Warm, Dry, Normal Color, unchanged Left anterior lower lateral arm eschar Psychiatric: Negative for: Alert, Oriented x 3 Assessment and Plan - Assessment and Plan (Free Text) Assessment: Assessment: 52 F with suspected suicide attempt who presents with anoxic brain injury. S/p trach and gastrostomy tube placement. Hypertensive Emergency - Initially permissive HTN per Neuro, vitals stable with paroxysmal labile BP - MRI brain results at [place]: Findings most compatible with subacute favored over acute cerebral hypoxic insult with minimal involvement of the lower haris and the cerebellar hemispheres as well. Blood flow in the basilar and bilateral cavernous internal carotid artery segments appears adequately maintained. - CT head showed stable poor cortical medullary differentiation - ASA, Plavix, Statin, Lopressor, Amlodipine, Labetalol PRN - Continue to monitor Elevated Troponins - 3rd Trop elevated to 5.06 05/02 - Echo report shows normal EF 65-70% with normal systolic function - pro BNP 35 - Heparin SC Patient seen, case reviewed, and plan discussed with Dr. Gay. Future recs per Dr. Gay. Lamont Barclay, PGY-1
[2018-05-13] MEDS ORDERED: Potassium & Sodium Phosphate PO ONE (09:15)
[2018-05-13] MEDS: Pantoprazole 40 mg Susp UD NG SCH (09:42)
[2018-05-13] MEDS: Lactobacillus Acidophilus 500 MU Cap PO SCH ×2 (09:42→17:50)
[2018-05-13] MEDS: Docusate-Senna 50 mg-8.6 mg Tab PO SCH ×2 (09:42→17:49)
[2018-05-13] MEDS: Thiamine 100 mg/ml Inj IV SCH (09:42)
--- NOTE | 2018-05-13 10:18 | CP.PCM.PN ---
Subjective - Date & Time of Evaluation Date of Evaluation: 05/13/18 Time of Evaluation: 10:13 - Subjective Subjective: patient is on bed,unresponsive. not respond to pain. I don't see any spontaneous movement of her left side which was present two day ago. Has fever spikes. on flagyl and Meropenem Noted clenching her teeth and stiff. Possible seizures s/p PEG and trach.Getting feeding sodium is 151. follow sodium level tomorrow Objective - Vital Signs/Intake and Output Vital Signs (last 24 hours): Temp Pulse Resp BP Pulse Ox 101.4 F H 116 H 21 169/74 H 98 05/13/18 05:30 05/13/18 04:08 05/13/18 04:08 05/13/18 09:42 05/13/18 04:08 Intake and Output: 05/13/18 05/13/18 06:59 18:59 Intake Total 925 Output Total 600 Balance 325 - Medications Medications: Current Medications Albuterol/Ipratropium (Duoneb 3 Mg/0.5 Mg (3 Ml) Ud) 3 ml INH RQ4 [facility] Last Admin: 05/13/18 07:30 Dose: 3 ml Amlodipine Besylate (Norvasc) 10 mg PO DAILY [facility] Last Admin: 05/12/18 13:07 Dose: Not Given Aspirin (Ecotrin) 81 mg PO DAILY [facility] Last Admin: 05/10/18 09:45 Dose: 81 mg Bisacodyl (Dulcolax) 10 mg [place] TID PRN PRN Reason: Constipation Last Admin: 05/10/18 09:45 Dose: 10 mg Dextrose (Dextrose 50% Inj) 0 ml IV STAT PRN; Protocol PRN Reason: Hypoglycemia Protocol Dextrose (Glutose 15) 15 gm PO ONCE PRN; Protocol PRN Reason: Hypoglycemia Protocol Glucagon (Glucagen Diagnostic Kit) 1 mg IM STAT PRN; Protocol PRN Reason: Hypoglycemia Protocol Heparin Sodium (Porcine) (Heparin) 5,000 units SC Q8 [facility] Last Admin: 05/13/18 05:30 Dose: 5,000 units Levetiracetam 1,000 mg/ Sodium (Chloride) 110 mls @ 420 mls/hr IVPB Q12H [facility] Last Admin: 05/12/18 23:47 Dose: 420 mls/hr Meropenem 1 gm/ Sodium (Chloride) 100 mls @ 100 mls/hr IVPB Q8H [facility]; Protocol Last Admin: 05/13/18 09:44 Dose: 100 mls/hr Dextrose (Dextrose 5% In Water 1000 Ml) 1,000 mls @ 0 mls/hr IV .Q0M PRN; Pr otocol PRN Reason: Hypoglycemia Protocol Metronidazole (Flagyl) 500 mg in 100 mls @ 100 mls/hr IVPB Q8H [facility]; Protocol Last Admin: 05/13/18 09:43 Dose: 100 mls/hr Ibuprofen (Motrin Oral Susp) 200 mg PO Q6H PRN PRN Reason: Fever >100.4 F Last Admin: 05/13/18 05:29 Dose: 200 mg Insulin Aspart (Novolog) 0 unit SC Q6 [facility]; Protocol Last Admin: 05/13/18 06:39 Dose: 2 units Insulin Glargine (Lantus) 10 unit SC DAILY [facility] Last Admin: 05/10/18 09:45 Dose: 10 u Labetalol HCl (Trandate) 10 mg IVP Q4H PRN PRN Reason: Systolic Blood Pressure Last Admin: 05/09/18 16:42 Dose: 10 mg Lactobacillus Acidophilus (Bacid Acidophilus) 1 cap PO BID [facility] Last Admin: 05/13/18 09:42 Dose: 1 cap Lactulose (Enulose) 20 gm PO DAILY PRN PRN Reason: Constipation Last Admin: 05/10/18 09:45 Dose: 20 gm Lorazepam (Ativan) 1 mg IVP Q4 PRN PRN Reason: Restlessness Last Admin: 05/13/18 07:47 Dose: 1 mg Metoprolol Tartrate (Lopressor) 75 mg PO BID [facility] Last Admin: 05/13/18 09:42 Dose: 75 mg Morphine Sulfate (Morphine) 2 mg IVP Q4 PRN PRN Reason: Pain, moderate (4-7) Last Admin: 05/12/18 10:15 Dose: 2 mg Pantoprazole Sodium (Protonix Susp) 40 mg NG DAILY [facility] Last Admin: 05/13/18 09:42 Dose: 40 mg Rosuvastatin Calcium (Crestor) 5 mg PO HS [facility] Last Admin: 05/12/18 22:37 Dose: 5 mg Senna/Docusate Sodium (Senokot S 50 Mg-8.6 Mg) 1 tab PO BID [facility] Last Admin: 05/13/18 09:42 Dose: 1 tab - Labs Labs: 05/13/18 05:56 05/13/18 05:56 PT 15.0 SECONDS (9.7-12.2) H 05/11/18 05:05 INR 1.4 05/11/18 05:05 APTT 31 SECONDS (21-34) 05/11/18 05:05 - Constitutional Appears: No Acute Distress, Chronically Ill - Head Exam Head Exam: NORMAL INSPECTION - Eye Exam Eye Exam: Normal appearance - ENT Exam ENT Exam: Mucous Membranes Moist. absent: Normal Exam (trach) - Neck Exam Neck Exam: Full ROM (trach) - Respiratory Exam Respiratory Exam: Clear to Ausculation Bilateral, NORMAL BREATHING PATTERN - Cardiovascular Exam Cardiovascular Exam: REGULAR RHYTHM - GI/Abdominal Exam GI & Abdominal Exam: Soft, Normal Bowel Sounds - Extremities Exam Extremities Exam: absent: Full ROM - Back Exam Back Exam: NORMAL INSPECTION - Neurological Exam Neurological Exam: absent: Awake, Oriented x3 - Psychiatric Exam Psychiatric exam: absent: Normal Mood - Skin Skin Exam: Dry, Warm Assessment and Plan - Assessment and Plan (Free Text) Plan: Respiratory Failure Due to Asphyxiation/Possible Suicide Attempt Intubated and on vent suspected suicide /homicide- [place] Police was called s/ptracheotomy pending transfer to [facility] fever,Leukocytosis Likely Secondary to Aspiration Pneumonia continue antibiotics repeat chest x ray,Urine and blood culture Current Chest X Ray 05/09/18 shows no active disease Blood Culture 05/02/18 is negative at 5 days Urine Culture 05/06/18 shows NO growth Tracheal Aspirate 05/08/18 results yeast Flagyl 500 mg IV Q8H Meropenem 500 mg IV Q8H Anoxic Brain Injury patient noted clenching her teeth and stiff,r/o seizures d/w DR Vanegas this morning do EEG continue Keppra and ativan PRN s/pEEG showed diffuse encephalopathy with burst suppression. Repeat CT head-no bleeding MRI Brain: most compatible with subacute favored over acute cerebral hypoxic insult with minimal involvement of the lower haris and the cerebellar hemispheres Levatiracetam 1,000 mg IV Q12H Neurology Dr. Duff/Guilherme NSTEMI Elevated troponin ASA 81 mg PO 1x/day Crestor 5 mg PO 1x/day Dr Gay consulted Transaminitis Likely shock liver Follow LFTs Diabetes mellitus sugar is high,we will increase lantus after GT placement Lantus 10 Units SC Aspart ISS Q6H ARF Likely Secondary to ATN with Hypernatremia BUN/Cr have improved Multi Care Technician Dr. Samuels HTN Metoprolol Tartrate 75 mg PO BID Norvasc 5 mg PO 1x/day Labetalol 10 mg IV Q4H PRN SBP > 140 Prophylaxis Heparin 5,000 Units SC Q8H Protonix 40 mg GT Feeding
[2018-05-13] MEDS: levETIRAcetam 1,000 MG in Sodium Chloride 0.9% 100 ML IVPB SCH ×2 (10:51→22:56)
--- NOTE | 2018-05-13 11:47 | RAD ---
Date of service: 05/13/2018 HISTORY: Fever COMPARISON: Comparison chest 05/09/2018. FINDINGS: Interval placement tracheostomy tube which is in good position. No change right-sided PICC line with tip in the SVC/RA junction LUNGS: No acute consolidation. PLEURA: No significant pleural effusion identified, no pneumothorax apparent. CARDIOVASCULAR: No aortic atherosclerotic calcification present. Normal cardiac size. No pulmonary vascular congestion. OSSEOUS STRUCTURES: No significant abnormalities. VISUALIZED UPPER ABDOMEN: Normal. OTHER FINDINGS: None. IMPRESSION: No active disease.
[2018-05-13] MEDS ORDERED: Sodium Chloride 0.9% 1,000 ML IV ONE (11:56)
[2018-05-13 12:14] LABS: URINE BILIRUBIN NEGATIVE (NEGATIVE); URINE BLOOD 1+ (NEGATIVE); URINE CLARITY Hazy (Clear); URINE COLOR Amber (YELLOW); URINE GLUCOSE (UA) 1+ mg/dL (Normal); URINE LEUKOCYTE ESTERASE 3+ Leu/uL (Negative); URINE PROTEIN 2+ mg/dL (NEGATIVE); WBC CLUMPS FEW /hpf
[2018-05-14] MEDS: Albuterol-Ipratrop 3 mg / 0.5 (3 ml) UD INH SCH ×7 (00:21→23:36)
[2018-05-14] MEDS: (Novolog) Insulin Aspart, Recombinant 100 u/ml 10 ml vial SC SCH ×4 (00:21→18:00)
[2018-05-14] MEDS: metroNIDAZOLE IV 500 mg/100 ml 500 MG/100 ML BAG IVPB SCH ×3 (02:27→17:24)
[2018-05-14] MEDS: Meropenem 1 GM in Sodium Chloride 0.9% 100 ML IVPB SCH ×3 (02:37→18:01)
[2018-05-14 06:08] LABS: BASO # 0.1 K/uL (0.0-0.2); BASO % 0.8 % (0.0-2.0); EOS # 0.2 K/uL (0.0-0.7); EOS % 1.3 % (0.0-4.0); HEMOGLOBIN 9.8 g/dL (11.0-16.0); LYMPH # 1.6 K/uL (1.0-4.3); LYMPH % 10.7 % (20.0-40.0); MEAN CELL VOLUME 79.8 fL (81.0-99.0); MEAN CORPUSCULAR HEMOGLOBIN 25.5 pg (27.0-31.0); MEAN CORPUSCULAR HGB CONC 31.9 g/dL (33.0-37.0); MEAN PLATELET VOLUME 11.4 fL (7.2-11.7); MONO # 1.2 K/uL (0.0-0.8); MONO % 8.5 % (0.0-10.0); NEUT # 11.5 K/uL (1.8-7.0); NEUT % 78.7 % (50.0-75.0); RBC 3.85 Mil/uL (3.80-5.20); WHITE BLOOD COUNT 14.6 K/uL (4.8-10.8)
[2018-05-14 06:32] LABS: ALB/GLOB RATIO 0.8 (1.0-2.1); ALBUMIN 2.7 g/dL (3.5-5.0); ALT/SGPT 85 U/L (9-52); AST/SGOT 98 U/L (14-36); BLOOD UREA NITROGEN 19 mg/dL (7-17); CALCIUM 7.8 mg/dl (8.6-10.4); GFR NON-AFRICAN AMERICAN > 60
--- NOTE | 2018-05-14 07:34 | CP.PCM.PN ---
Subjective - Date & Time of Evaluation Date of Evaluation: 05/14/18 Time of Evaluation: 07:32 - Subjective Subjective: Channing Tate Progress Note for Dr. Negrete Pt was examined at bedside this morning. She is unresponsive, but is able to open her eyes and move all parts of body randomly. She is not able to communicate at this time. Objective - Vital Signs/Intake and Output Vital Signs (last 24 hours): Temp Pulse Resp BP Pulse Ox 98.7 F 99 H 24 142/83 99 05/14/18 04:00 05/14/18 05:00 05/14/18 05:00 05/14/18 04:59 05/14/18 05:00 - Medications Medications: Current Medications Albuterol/Ipratropium (Duoneb 3 Mg/0.5 Mg (3 Ml) Ud) 3 ml INH RQ4 [facility] Last Admin: 05/14/18 03:13 Dose: 3 ml Amlodipine Besylate (Norvasc) 10 mg PO DAILY [facility] Last Admin: 05/13/18 12:52 Dose: Not Given Aspirin (Ecotrin) 81 mg PO DAILY [facility] Last Admin: 05/10/18 09:45 Dose: 81 mg Bisacodyl (Dulcolax) 10 mg [place] TID PRN PRN Reason: Constipation Last Admin: 05/10/18 09:45 Dose: 10 mg Clopidogrel Bisulfate (Plavix) 75 mg PO DAILY [facility] Last Admin: 05/13/18 15:50 Dose: 75 mg Dextrose (Dextrose 50% Inj) 0 ml IV STAT PRN; Protocol PRN Reason: Hypoglycemia Protocol Dextrose (Glutose 15) 15 gm PO ONCE PRN; Protocol PRN Reason: Hypoglycemia Protocol Glucagon (Glucagen Diagnostic Kit) 1 mg IM STAT PRN; Protocol PRN Reason: Hypoglycemia Protocol Heparin Sodium (Porcine) (Heparin) 5,000 units SC Q8 [facility] Last Admin: 05/14/18 06:35 Dose: 5,000 units Levetiracetam 1,000 mg/ Sodium (Chloride) 110 mls @ 420 mls/hr IVPB Q12H [facility] Last Admin: 05/13/18 22:56 Dose: 420 mls/hr Meropenem 1 gm/ Sodium (Chloride) 100 mls @ 100 mls/hr IVPB Q8H [facility]; Protocol Last Admin: 05/14/18 02:37 Dose: 100 mls/hr Dextrose (Dextrose 5% In Water 1000 Ml) 1,000 mls @ 0 mls/hr IV .Q0M PRN; Protocol PRN Reason: Hypoglycemia Protocol Metronidazole (Flagyl) 500 mg in 100 mls @ 100 mls/hr IVPB Q8H [facility]; Protocol Last Admin: 05/14/18 02:27 Dose: 100 mls/hr Ibuprofen (Motrin Oral Susp) 200 mg PO Q6H PRN PRN Reason: Fever >100.4 F Last Admin: 05/14/18 02:36 Dose: 200 mg Insulin Aspart (Novolog) 0 unit SC Q6 [facility]; Protocol Last Admin: 05/14/18 06:32 Dose: 3 units Insulin Glargine (Lantus) 10 unit SC DAILY [facility] Last Admin: 05/10/18 09:45 Dose: 10 u Labetalol HCl (Trandate) 10 mg IVP Q4H PRN PRN Reason: Systolic Blood Pressure Last Admin: 05/09/18 16:42 Dose: 10 mg Lactobacillus Acidophilus (Bacid Acidophilus) 1 cap PO BID [facility] Last Admin: 05/13/18 17:50 Dose: 1 cap Lactulose (Enulose) 20 gm PO DAILY PRN PRN Reason: Constipation Last Admin: 05/10/18 09:45 Dose: 20 gm Lorazepam (Ativan) 1 mg IVP Q4 PRN PRN Reason: Restlessness Last Admin: 05/13/18 07:47 Dose: 1 mg Metoprolol Tartrate (Lopressor) 75 mg PO BID [facility] Last Admin: 05/13/18 17:51 Dose: 75 mg Morphine Sulfate (Morphine) 2 mg IVP Q4 PRN PRN Reason: Pain, moderate (4-7) Last Admin: 05/12/18 10:15 Dose: 2 mg Pantoprazole Sodium (Protonix Susp) 40 mg NG DAILY [facility] Last Admin: 05/13/18 09:42 Dose: 40 mg Rosuvastatin Calcium (Crestor) 5 mg PO HS [facility] Last Admin: 05/13/18 22:38 Dose: 5 mg Senna/Docusate Sodium (Senokot S 50 Mg-8.6 Mg) 1 tab PO BID [facility] Last Admin: 05/13/18 17:49 Dose: 1 tab Vitamin A (Vitamin A & D Oint Ud Foilpak) 1 ea TOP BID PRN PRN Reason: Dry skin - Labs Labs: 05/14/18 06:05 05/14/18 06:05 PT 15.0 SECONDS (9.7-12.2) H 05/11/18 05:05 INR 1.4 05/11/18 05:05 APTT 31 SECONDS (21-34) 05/11/18 05:05 - Constitutional Appears: No Acute Distress, Chronically Ill - Head Exam Head Exam: ATRAUMATIC, NORMOCEPHALIC - Eye Exam Eye Exam: EOMI, Normal appearance - ENT Exam ENT Exam: Mucous Membranes Moist - Neck Exam Additional comments: trache site clean, dry, intact - Respiratory Exam Respiratory Exam: Clear to Ausculation Bilateral, NORMAL BREATHING PATTERN. absent: Rales, Rhonchi, Wheezes - Cardiovascular Exam Cardiovascular Exam: REGULAR RHYTHM, +S1, +S2. absent: Gallop, Rubs, Murmur - GI/Abdominal Exam GI & Abdominal Exam: Soft, Normal Bowel Sounds. absent: Distended, Tenderness - Extremities Exam Extremities Exam: Pedal Edema - Neurological Exam Neurological Exam: Awake. absent: Oriented x3 - Skin Skin Exam: Normal Color Assessment and Plan - Assessment and Plan (Free Text) Plan: Respiratory Failure - Due to Asphyxiation/Possible Suicide Attempt - Intubated, on vent @FiO2 40 - s/p tracheotomy - pending transfer to LTAC Leukocytosis - Tmax last night 101.2 - Likely Secondary to Aspiration Pneumonia - CXR 05/13/18: no active disease - Chest X Ray 05/09/18: no active disease - BCx 05/02/18: negative - UCx 05/06/18: negative - Tracheal Aspirate Cx 05/08/18: yeast - Flagyl 500 mg IV Q8H - Meropenem 500 mg IV Q8H Anoxic Brain Injury - EEG to be completed by [place], f/u report - s/p EEG showed diffuse encephalopathy with burst suppression. - Repeat CT head:no bleeding - MRI Brain: subacute favored over acute cerebral hypoxic insult with minimal involvement of the lower haris and the cerebellar hemispheres - Levatiracetam 1,000 mg IV Q12H - Ativan 1mg q4h PRN - Neurology consulted, Dr. Duff/Guilherme NSTEMI - Elevated troponin - ASA 81 mg PO daily - Crestor 5 mg PO daily - Cardiology consulted, Dr Victor Hugo Transaminitis Likely shock liver Follow LFTs DM - Lantus 10 Units SC - Aspart ISS Q6H - increase lantus ARF - Likely Secondary to ATN with Hypernatremia - BUN/Cr have improved - Nephrology consulted, Dr. Samuels HTN - Metoprolol Tartrate 75 mg PO BID - Norvasc 5 mg PO 1x/day - Labetalol 10 mg IV Q4H PRN SBP > 140 PPx Heparin 5,000 Units SC Q8H Protonix 40 mg GT Feeding Case discussed and plan with Dr. Negrete
[2018-05-14] MEDS: Lactobacillus Acidophilus 500 MU Cap PO SCH ×2 (09:36→17:24)
[2018-05-14] MEDS: Pantoprazole 40 mg Susp UD NG SCH (09:36)
[2018-05-14] MEDS: Docusate-Senna 50 mg-8.6 mg Tab PO SCH ×2 (09:37→18:01)
[2018-05-14] MEDS: levETIRAcetam 1,000 MG in Sodium Chloride 0.9% 100 ML IVPB SCH ×2 (12:00→22:43)
[2018-05-14] MEDS: Vitamins A & D Oint UD Foilpak TOP PRN (22:43)
[2018-05-15] MEDS: (Novolog) Insulin Aspart, Recombinant 100 u/ml 10 ml vial SC SCH ×4 (00:10→18:01)
[2018-05-15] MEDS: metroNIDAZOLE IV 500 mg/100 ml 500 MG/100 ML BAG IVPB SCH ×3 (01:37→17:53)
[2018-05-15] MEDS: Meropenem 1 GM in Sodium Chloride 0.9% 100 ML IVPB SCH ×3 (02:24→18:01)
[2018-05-15] MEDS: Albuterol-Ipratrop 3 mg / 0.5 (3 ml) UD INH SCH ×5 (03:08→20:06)
--- NOTE | 2018-05-15 05:51 | CP.PCM.PN ---
<Lulu Merlos Y - Last Filed: 05/15/18 05:49> Subjective - Date & Time of Evaluation Date of Evaluation: 05/15/18 Time of Evaluation: 06:50 - Subjective Subjective: PGY-1 Medicine Progress Note for Dr. Negrete Patient was seen and examined today at bedside in no acute distress. Nurse reports no overnight events. Patient is opening eyes, but unable to verbally and dependably physically communicate. Unable to obtain ROS. Objective - Vital Signs/Intake and Output Vital Signs (last 24 hours): Temp Pulse Resp BP Pulse Ox 99.5 F 95 H 20 133/78 100 05/14/18 20:00 05/15/18 04:28 05/15/18 04:28 05/15/18 03:28 05/15/18 04:28 Intake and Output: 05/14/18 05/15/18 18:59 06:59 Intake Total 1465 Output Total 1325 Balance 140 - Medications Medications: Current Medications Albuterol/Ipratropium (Duoneb 3 Mg/0.5 Mg (3 Ml) Ud) 3 ml INH RQ4 [facility] Last Admin: 05/15/18 03:08 Dose: 3 ml Amlodipine Besylate (Norvasc) 10 mg PO DAILY [facility] Last Admin: 05/14/18 11:07 Dose: 10 mg Aspirin (Ecotrin) 81 mg PO DAILY [facility] Last Admin: 05/10/18 09:45 Dose: 81 mg Bisacodyl (Dulcolax) 10 mg [place] TID PRN PRN Reason: Constipation Last Admin: 05/10/18 09:45 Dose: 10 mg Clopidogrel Bisulfate (Plavix) 75 mg PO DAILY [facility] Last Admin: 05/14/18 09:36 Dose: 75 mg Dextrose (Dextrose 50% Inj) 0 ml IV STAT PRN; Protocol PRN Reason: Hypoglycemia Protocol Dextrose (Glutose 15) 15 gm PO ONCE PRN; Protocol PRN Reason: Hypoglycemia Protocol Glucagon (Glucagen Diagnostic Kit) 1 mg IM STAT PRN; Protocol PRN Reason: Hypoglycemia Protocol Heparin Sodium (Porcine) (Heparin) 5,000 units SC Q8 [facility] Last Admin: 05/14/18 22:44 Dose: 5,000 units Levetiracetam 1,000 mg/ Sodium (Chloride) 110 mls @ 420 mls/hr IVPB Q12H [facility] Last Admin: 05/14/18 22:43 Dose: 420 mls/hr Meropenem 1 gm/ Sodium (Chloride) 100 mls @ 100 mls/hr IVPB Q8H [facility]; Protocol Last Admin: 05/15/18 02:24 Dose: 100 mls/hr Dextrose (Dextrose 5% In Water 1000 Ml) 1,000 mls @ 0 mls/hr IV .Q0M PRN; Protocol PRN Reason: Hypoglycemia Protocol Metronidazole (Flagyl) 500 mg in 100 mls @ 100 mls/hr IVPB Q8H [facility]; Protocol Last Admin: 05/15/18 01:37 Dose: 100 mls/hr Ibuprofen (Motrin Oral Susp) 200 mg PO Q6H PRN PRN Reason: Fever >100.4 F Last Admin: 05/14/18 22:42 Dose: 200 mg Insulin Aspart (Novolog) 0 unit SC Q6 [facility]; Protocol Last Admin: 05/15/18 00:10 Dose: 4 units Insulin Glargine (Lantus) 10 unit SC DAILY [facility] Last Admin: 05/10/18 09:45 Dose: 10 u Labetalol HCl (Trandate) 10 mg IVP Q4H PRN PRN Reason: Systolic Blood Pressure Last Admin: 05/09/18 16:42 Dose: 10 mg Lactobacillus Acidophilus (Bacid Acidophilus) 1 cap PO BID [facility] Last Admin: 05/14/18 17:24 Dose: 1 cap Lactulose (Enulose) 20 gm PO DAILY PRN PRN Reason: Constipation Last Admin: 05/10/18 09:45 Dose: 20 gm Lorazepam (Ativan) 1 mg IVP Q4 PRN PRN Reason: Restlessness Last Admin: 05/15/18 00:10 Dose: 1 mg Metoprolol Tartrate (Lopressor) 75 mg PO BID [facility] Last Admin: 05/14/18 17:33 Dose: Not Given Morphine Sulfate (Morphine) 2 mg IVP Q4 PRN PRN Reason: Pain, moderate (4-7) Last Admin: 05/12/18 10:15 Dose: 2 mg Pantoprazole Sodium (Protonix Susp) 40 mg NG DAILY [facility] Last Admin: 05/14/18 09:36 Dose: 40 mg Rosuvastatin Calcium (Crestor) 5 mg PO HS [facility] Last Admin: 05/14/18 22:41 Dose: 5 mg Senna/Docusate Sodium (Senokot S 50 Mg-8.6 Mg) 1 tab PO BID [facility] Last Admin: 05/14/18 18:01 Dose: Not Given Vitamin A (Vitamin A & D Oint Ud Foilpak) 1 ea TOP BID PRN PRN Reason: Dry skin Last Admin: 05/14/18 22:43 Dose: 1 ea - Labs Labs: 05/14/18 06:05 05/14/18 06:05 PT 15.0 SECONDS (9.7-12.2) H 05/11/18 05:05 INR 1.4 05/11/18 05:05 APTT 31 SECONDS (21-34) 05/11/18 05:05 - Constitutional Appears: No Acute Distress, Chronically Ill - Head Exam Head Exam: ATRAUMATIC, NORMOCEPHALIC - Eye Exam Eye Exam: EOMI, Normal appearance - ENT Exam ENT Exam: Mucous Membranes Moist - Neck Exam Additional comments: trach c/d/i - Respiratory Exam Respiratory Exam: Clear to Ausculation Bilateral, NORMAL BREATHING PATTERN. absent: Rales, Rhonchi, Wheezes - Cardiovascular Exam Cardiovascular Exam: REGULAR RHYTHM, +S1, +S2. absent: Gallop, Rubs, Murmur - GI/Abdominal Exam GI & Abdominal Exam: Soft, Normal Bowel Sounds. absent: Tenderness - Extremities Exam Extremities Exam: Pedal Edema - Neurological Exam Neurological Exam: Awake. absent: Alert, Oriented x3 - Skin Skin Exam: Normal Color Assessment and Plan - Assessment and Plan (Free Text) Plan: Respiratory Failure - Due to Asphyxiation/Possible Suicide Attempt - Intubated, on vent @FiO2 40 - s/p tracheotomy - pending transfer to LTAC Leukocytosis - Tmax last night 101.2 - Likely Secondary to Aspiration Pneumonia - CXR 05/13/18: no active disease - Chest X Ray 05/09/18: no active disease - BCx 05/02/18: negative - UCx 05/06/18: negative - Tracheal Aspirate Cx 05/08/18: yeast - Flagyl 500 mg IV Q8H - Meropenem 500 mg IV Q8H Anoxic Brain Injury - EEG to be completed by [place] f/ruth report - s/p EEG showed diffuse encephalopathy with burst suppression. - Repeat CT head:no bleeding - MRI Brain: subacute favored over acute cerebral hypoxic insult with minimal involvement of the lower haris and the cerebellar hemispheres - Levatiracetam 1,000 mg IV Q12H - Ativan 1mg q4h PRN - Neurology consulted, Dr. Duff/Guilherme NSTEMI - Elevated troponin - ASA 81 mg PO daily - Crestor 5 mg PO daily - Cardiology consulted, Dr Gay Transaminitis Likely shock liver Follow LFTs DM - Lantus 10 Units SC - Aspart ISS Q6H - increase lantus ARF - Likely Secondary to ATN with Hypernatremia - BUN/Cr have improved - Nephrology consulted, Dr. Samuels HTN - Metoprolol Tartrate 75 mg PO BID - Norvasc 5 mg PO 1x/day - Labetalol 10 mg IV Q4H PRN SBP > 140 PPx Heparin 5,000 Units SC Q8H Protonix 40 mg GT Feeding Lulu Merlos PGY-1 <Emmett Negrete - Last Filed: 05/15/18 12:09> Objective - Vital Signs/Intake and Output Vital Signs (last 24 hours): Temp Pulse Resp BP Pulse Ox 99.1 F 83 18 116/58 L 100 05/15/18 08:00 05/15/18 08:02 05/15/18 08:02 05/15/18 08:02 05/15/18 08:02 Intake and Output: 05/15/18 05/15/18 06:59 18:59 Intake Total 2735 Output Total 1535 Balance 1200 - Medications Medications: Current Medications Albuterol/Ipratropium (Duoneb 3 Mg/0.5 Mg (3 Ml) Ud) 3 ml INH RQ4 [facility] Last Admin: 05/15/18 08:02 Dose: 3 ml Amlodipine Besylate (Norvasc) 10 mg PO DAILY [facility] Last Admin: 05/14/18 11:07 Dose: 10 mg Aspirin (Ecotrin) 81 mg PO DAILY [facility] Last Admin: 05/10/18 09:45 Dose: 81 mg Bisacodyl (Dulcolax) 10 mg [place] TID PRN PRN Reason: Constipation Last Admin: 05/10/18 09:45 Dose: 10 mg Clopidogrel Bisulfate (Plavix) 75 mg PO DAILY [facility] Last Admin: 05/14/18 09:36 Dose: 75 mg Dextrose (Dextrose 50% Inj) 0 ml IV STAT PRN; Protocol PRN Reason: Hypoglycemia Protocol Dextrose (Glutose 15) 15 gm PO ONCE PRN; Protocol PRN Reason: Hypoglycemia Protocol Glucagon (Glucagen Diagnostic Kit) 1 mg IM STAT PRN; Protocol PRN Reason: Hypoglycemia Protocol Heparin Sodium (Porcine) (Heparin) 5,000 units SC Q8 [facility] Last Admin: 05/15/18 07:00 Dose: 5,000 units Levetiracetam 1,000 mg/ Sodium (Chloride) 110 mls @ 420 mls/hr IVPB Q12H [facility] Last Admin: 05/14/18 22:43 Dose: 420 mls/hr Meropenem 1 gm/ Sodium (Chloride) 100 mls @ 100 mls/hr IVPB Q8H [facility]; Protocol Last Admin: 05/15/18 02:24 Dose: 100 mls/hr Dextrose (Dextrose 5% In Water 1000 Ml) 1,000 mls @ 0 mls/hr IV .Q0M PRN; Protocol PRN Reason: Hypoglycemia Protocol Metronidazole (Flagyl) 500 mg in 100 mls @ 100 mls/hr IVPB Q8H [facility]; Protocol Last Admin: 05/15/18 01:37 Dose: 100 mls/hr Ibuprofen (Motrin Oral Susp) 200 mg PO Q6H PRN PRN Reason: Fever >100.4 F Last Admin: 05/15/18 07:01 Dose: 200 mg Insulin Aspart (Novolog) 0 unit SC Q6 [facility]; Protocol Last Admin: 05/15/18 07:00 Dose: 6 units Insulin Glargine (Lantus) 10 unit SC DAILY [facility] Last Admin: 05/10/18 09:45 Dose: 10 u Labetalol HCl (Trandate) 10 mg IVP Q4H PRN PRN Reason: Systolic Blood Pressure Last Admin: 05/09/18 16:42 Dose: 10 mg Lactobacillus Acidophilus (Bacid Acidophilus) 1 cap PO BID [facility] Last Admin: 05/14/18 17:24 Dose: 1 cap Lactulose (Enulose) 20 gm PO DAILY PRN PRN Reason: Constipation Last Admin: 05/10/18 09:45 Dose: 20 gm Lorazepam (Ativan) 1 mg IVP Q4 PRN PRN Reason: Restlessness Last Admin: 05/15/18 00:10 Dose: 1 mg Metoprolol Tartrate (Lopressor) 75 mg PO BID [facility] Last Admin: 05/14/18 17:33 Dose: Not Given Morphine Sulfate (Morphine) 2 mg IVP Q4 PRN PRN Reason: Pain, moderate (4-7) Last Admin: 05/12/18 10:15 Dose: 2 mg Pantoprazole Sodium (Protonix Susp) 40 mg NG DAILY [facility] Last Admin: 05/14/18 09:36 Dose: 40 mg Rosuvastatin Calcium (Crestor) 5 mg PO HS [facility] Last Admin: 05/14/18 22:41 Dose: 5 mg Senna/Docusate Sodium (Senokot S 50 Mg-8.6 Mg) 1 tab PO BID [facility] Last Admin: 05/14/18 18:01 Dose: Not Given Vitamin A (Vitamin A & D Oint Ud Foilpak) 1 ea TOP BID PRN PRN Reason: Dry skin Last Admin: 05/14/18 22:43 Dose: 1 ea - Labs Labs: 05/15/18 06:49 05/15/18 06:49 PT 15.0 SECONDS (9.7-12.2) H 05/11/18 05:05 INR 1.4 05/11/18 05:05 APTT 31 SECONDS (21-34) 05/11/18 05:05 Attending/Attestation - Attestation I have personally seen and examined this patient.: Yes I have fully participated in the care of the patient.: Yes I have reviewed all pertinent clinical information, including history, physical exam and plan: Yes Notes (Text): Seen and examined ,spoke to her sister at bedside Lying on bed,not responding to deep pain,less spastic movements/no seizure like activity Has gag and cough reflex getting feeding has low grade tem,continue Merrem and vanco 24hrs EEG done ,results pending sugar is high,resume lantus.d/w RN we will continue vent support Pending LTAC placement I agree with the resident's documentation
[2018-05-15 06:57] LABS: BASO # 0.1 K/uL (0.0-0.2); BASO % 0.9 % (0.0-2.0); EOS # 0.2 K/uL (0.0-0.7); EOS % 1.3 % (0.0-4.0); LYMPH # 2.8 K/uL (1.0-4.3); LYMPH % 19.6 % (20.0-40.0); MEAN CELL VOLUME 79.2 fL (81.0-99.0); MEAN CORPUSCULAR HEMOGLOBIN 26.2 pg (27.0-31.0); MEAN PLATELET VOLUME 11.4 fL (7.2-11.7); MONO # 1.1 K/uL (0.0-0.8); MONO % 7.8 % (0.0-10.0); NEUT % 70.4 % (50.0-75.0); RBC 3.81 Mil/uL (3.80-5.20); RED CELL DISTRIBUTION WIDTH 15.9 % (11.5-14.5); WHITE BLOOD COUNT 14.2 K/uL (4.8-10.8)
[2018-05-15 07:08] LABS: ALB/GLOB RATIO 0.8 (1.0-2.1); ALBUMIN 2.7 g/dL (3.5-5.0); ALT/SGPT 66 U/L (9-52); AST/SGOT 68 U/L (14-36); BLOOD UREA NITROGEN 17 mg/dL (7-17); CALCIUM 7.7 mg/dl (8.6-10.4); GFR NON-AFRICAN AMERICAN 58
[2018-05-15] MEDS: Docusate-Senna 50 mg-8.6 mg Tab PO SCH ×2 (10:05→18:56)
[2018-05-15] MEDS: Pantoprazole 40 mg Susp UD NG SCH (10:05)
[2018-05-15] MEDS: Lactobacillus Acidophilus 500 MU Cap PO SCH ×2 (10:05→17:54)
[2018-05-15] MEDS: levETIRAcetam 1,000 MG in Sodium Chloride 0.9% 100 ML IVPB SCH ×2 (12:01→23:34)
[2018-05-15] MEDS: (Lantus) Insulin Glargine, Recombinant SC SCH ×2 (12:38→14:39)
--- NOTE | 2018-05-16 00:07 | CP.PCM.PN ---
<Lulu Merlos Y - Last Filed: 05/16/18 00:03> Subjective - Date & Time of Evaluation Date of Evaluation: 05/16/18 Time of Evaluation: 06:00 - Subjective Subjective: PGY-1 Medicine Progress Note for Dr. Negrete Patient was seen and examined today at bedside in no acute distress. Nurse reports no overnight events. Patient is opening eyes and has random movements, but isn't able to verbally or dependably comminute. Unable to obtain ROS. Objective - Vital Signs/Intake and Output Vital Signs (last 24 hours): Temp Pulse Resp BP Pulse Ox 96.5 F L 106 H 15 118/80 98 05/15/18 20:00 05/15/18 23:00 05/15/18 23:00 05/15/18 20:02 05/15/18 23:00 Intake and Output: 05/15/18 05/16/18 18:59 06:59 Intake Total 3920 Output Total 1820 Balance 2100 - Medications Medications: Current Medications Albuterol/Ipratropium (Duoneb 3 Mg/0.5 Mg (3 Ml) Ud) 3 ml INH RQ4 [facility] Last Admin: 05/15/18 20:06 Dose: 3 ml Amlodipine Besylate (Norvasc) 10 mg PO DAILY [facility] Last Admin: 05/15/18 10:07 Dose: 10 mg Aspirin (Ecotrin) 81 mg PO DAILY [facility] Last Admin: 05/10/18 09:45 Dose: 81 mg Bisacodyl (Dulcolax) 10 mg DC TID PRN PRN Reason: Constipation Last Admin: 05/10/18 09:45 Dose: 10 mg Clopidogrel Bisulfate (Plavix) 75 mg PO DAILY [facility] Last Admin: 05/15/18 10:05 Dose: 75 mg Dextrose (Dextrose 50% Inj) 0 ml IV STAT PRN; Protocol PRN Reason: Hypoglycemia Protocol Dextrose (Glutose 15) 15 gm PO ONCE PRN; Protocol PRN Reason: Hypoglycemia Protocol Glucagon (Glucagen Diagnostic Kit) 1 mg IM STAT PRN; Protocol PRN Reason: Hypoglycemia Protocol Heparin Sodium (Porcine) (Heparin) 5,000 units SC Q8 [facility] Last Admin: 05/15/18 21:45 Dose: 5,000 units Levetiracetam 1,000 mg/ Sodium (Chloride) 110 mls @ 420 mls/hr IVPB Q12H [facility] Last Admin: 05/15/18 23:34 Dose: 420 mls/hr Meropenem 1 gm/ Sodium (Chloride) 100 mls @ 100 mls/hr IVPB Q8H [facility]; Protocol Last Admin: 05/15/18 18:01 Dose: 100 mls/hr Dextrose (Dextrose 5% In Water 1000 Ml) 1,000 mls @ 0 mls/hr IV .Q0M PRN; Protocol PRN Reason: Hypoglycemia Protocol Metronidazole (Flagyl) 500 mg in 100 mls @ 100 mls/hr IVPB Q8H [facility]; Protocol Last Admin: 05/15/18 17:53 Dose: 100 mls/hr Ibuprofen (Motrin Oral Susp) 200 mg PO Q6H PRN PRN Reason: Fever >100.4 F Last Admin: 05/15/18 07:01 Dose: 200 mg Insulin Aspart (Novolog) 0 unit SC Q6 [facility]; Protocol Last Admin: 05/15/18 18:01 Dose: 4 units Insulin Glargine (Lantus) 10 unit SC DAILY [facility] Last Admin: 05/15/18 12:38 Dose: 10 units Labetalol HCl (Trandate) 10 mg IVP Q4H PRN PRN Reason: Systolic Blood Pressure Last Admin: 05/09/18 16:42 Dose: 10 mg Lactobacillus Acidophilus (Bacid Acidophilus) 1 cap PO BID [facility] Last Admin: 05/15/18 17:54 Dose: 1 cap Lactulose (Enulose) 20 gm PO DAILY PRN PRN Reason: Constipation Last Admin: 05/10/18 09:45 Dose: 20 gm Lorazepam (Ativan) 1 mg IVP Q4 PRN PRN Reason: Restlessness Last Admin: 05/15/18 00:10 Dose: 1 mg Metoprolol Tartrate (Lopressor) 75 mg PO BID [facility] Last Admin: 05/15/18 17:54 Dose: 75 mg Morphine Sulfate (Morphine) 2 mg IVP Q4 PRN PRN Reason: Pain, moderate (4-7) Last Admin: 05/12/18 10:15 Dose: 2 mg Pantoprazole Sodium (Protonix Susp) 40 mg NG DAILY [facility] Last Admin: 05/15/18 10:05 Dose: 40 mg Rosuvastatin Calcium (Crestor) 5 mg PO HS [facility] Last Admin: 05/15/18 21:45 Dose: 5 mg Senna/Docusate Sodium (Senokot S 50 Mg-8.6 Mg) 1 tab PO BID [facility] Last Admin: 05/15/18 18:56 Dose: Not Given Vitamin A (Vitamin A & D Oint Ud Foilpak) 1 ea TOP BID PRN PRN Reason: Dry skin Last Admin: 05/14/18 22:43 Dose: 1 ea - Labs Labs: 05/15/18 06:49 05/15/18 06:49 PT 15.0 SECONDS (9.7-12.2) H 05/11/18 05:05 INR 1.4 05/11/18 05:05 APTT 31 SECONDS (21-34) 05/11/18 05:05 - Constitutional Appears: No Acute Distress, Chronically Ill - Head Exam Head Exam: ATRAUMATIC, NORMOCEPHALIC - Eye Exam Eye Exam: EOMI, Normal appearance - ENT Exam ENT Exam: Mucous Membranes Moist - Neck Exam Additional comments: trach c/d/i, suctioning easily - Respiratory Exam Respiratory Exam: Clear to Ausculation Bilateral, NORMAL BREATHING PATTERN. absent: Rales, Rhonchi, Wheezes - Cardiovascular Exam Cardiovascular Exam: REGULAR RHYTHM, +S1, +S2. absent: Gallop, Rubs, Murmur - GI/Abdominal Exam GI & Abdominal Exam: Soft, Normal Bowel Sounds. absent: Tenderness - Extremities Exam Extremities Exam: Pedal Edema - Neurological Exam Neurological Exam: Awake. absent: Alert, Oriented x3 - Skin Skin Exam: Normal Color Assessment and Plan - Assessment and Plan (Free Text) Plan: Respiratory Failure - Due to Asphyxiation/Possible Suicide Attempt - Intubated, on vent @FiO2 40 - s/p tracheotomy - pending transfer to LTAC Leukocytosis - Tmax last night 101.2 - Likely Secondary to Aspiration Pneumonia - CXR 05/13/18: no active disease - Chest X Ray 05/09/18: no active disease - BCx 05/02/18: negative - UCx 05/06/18: negative - Tracheal Aspirate Cx 05/08/18: yeast - Flagyl 500 mg IV Q8H - Meropenem 500 mg IV Q8H Anoxic Brain Injury - EEG to be completed by [facility] f/u report - s/p EEG showed diffuse encephalopathy with burst suppression. - Repeat CT head:no bleeding - MRI Brain: subacute favored over acute cerebral hypoxic insult with minimal involvement of the lower haris and the cerebellar hemispheres - Levatiracetam 1,000 mg IV Q12H - Ativan 1mg q4h PRN - Neurology consulted, Dr. Duff/Guilherme NSTEMI - Elevated troponin - ASA 81 mg PO daily - Crestor 5 mg PO daily - Cardiology consulted, Dr Gay Transaminitis Likely shock liver Follow LFTs DM - Lantus 10 Units SC - Aspart ISS Q6H - increase lantus ARF - Likely Secondary to ATN with Hypernatremia - BUN/Cr have improved - Nephrology consulted, Dr. Samuels HTN - Metoprolol Tartrate 75 mg PO BID - Norvasc 5 mg PO 1x/day - Labetalol 10 mg IV Q4H PRN SBP > 140 PPx Heparin 5,000 Units SC Q8H Protonix 40 mg GT Feeding <Emmett Negrete - Last Filed: 05/26/18 09:51> Objective - Vital Signs/Intake and Output Vital Signs (last 24 hours): Temp Pulse Resp BP Pulse Ox 99.4 F 74 20 100/59 L 100 05/26/18 08:16 05/26/18 08:16 05/26/18 08:16 05/26/18 08:16 05/26/18 08:16 Intake and Output: 05/26/18 05/26/18 06:59 18:59 Intake Total 1390 Output Total 951 Balance 439 - Medications Medications: Current Medications Acetaminophen (Tylenol 650 Mg Supp) 650 mg DC Q6 PRN PRN Reason: Fever >100.4 F Last Admin: 05/23/18 00:19 Dose: 650 mg Acetylcysteine (Acetylcysteine 20%) 4 ml INH RQ4 [facility] Last Admin: 05/26/18 07:52 Dose: 4 ml Albuterol/Ipratropium (Duoneb 3 Mg/0.5 Mg (3 Ml) Ud) 3 ml INH RQ4 [facility] Last Admin: 05/26/18 07:53 Dose: 3 ml Amlodipine Besylate (Norvasc) 10 mg PO DAILY [facility] Last Admin: 05/25/18 10:28 Dose: 10 mg Aspirin (Aspirin Chewable) 81 mg PO DAILY [facility] Last Admin: 05/22/18 10:09 Dose: 81 mg Bisacodyl (Dulcolax) 10 mg DC TID PRN PRN Reason: Constipation Last Admin: 05/10/18 09:45 Dose: 10 mg Clopidogrel Bisulfate (Plavix) 75 mg PO DAILY [facility] Last Admin: 05/22/18 10:07 Dose: 75 mg Dextrose (Dextrose 50% Inj) 0 ml IV STAT PRN; Protocol PRN Reason: Hypoglycemia Protocol Dextrose (Glutose 15) 15 gm PO ONCE PRN; Protocol PRN Reason: Hypoglycemia Protocol Famotidine (Pepcid) 20 mg IVP Q12 [facility] Last Admin: 05/25/18 22:02 Dose: 20 mg Glucagon (Glucagen Diagnostic Kit) 1 mg IM STAT PRN; Protocol PRN Reason: Hypoglycemia Protocol Heparin Sodium (Porcine) (Heparin) 5,000 units SC Q8 [facility] Last Admin: 05/26/18 06:02 Dose: 5,000 units Levetiracetam 1,000 mg/ Sodium (Chloride) 110 mls @ 420 mls/hr IVPB Q12H [facility] Last Admin: 05/25/18 22:42 Dose: 420 mls/hr Metronidazole (Flagyl) 500 mg in 100 mls @ 100 mls/hr IVPB Q8H [facility]; Protocol Last Admin: 05/26/18 03:08 Dose: 100 mls/hr Meropenem 1 gm/ Sodium (Chloride) 100 mls @ 200 mls/hr IVPB Q8H [facility]; Protocol Last Admin: 05/26/18 02:35 Dose: 200 mls/hr Dextrose (Dextrose 5% In Water 1000 Ml) 1,000 mls @ 50 mls/hr IV .Q20H [facility] Last Admin: 05/26/18 05:58 Dose: 50 mls/hr Ibuprofen (Motrin Oral Susp) 200 mg PO Q6H PRN PRN Reason: Fever >100.4 F Last Admin: 05/26/18 06:28 Dose: 200 mg Insulin Aspart (Novolog) 0 unit SC Q6 [facility]; Protocol Last Admin: 05/26/18 05:59 Dose: Not Given Insulin Glargine (Lantus) 30 unit SC HS [facility] Last Admin: 05/25/18 22:12 Dose: 30 u Labetalol HCl (Trandate) 10 mg IVP Q4H PRN PRN Reason: Systolic Blood Pressure Last Admin: 05/16/18 11:45 Dose: 10 mg Lactulose (Enulose) 20 gm PO DAILY PRN PRN Reason: Constipation Last Admin: 05/25/18 16:55 Dose: 20 gm Lorazepam (Ativan) 2 mg IVP Q3 PRN PRN Reason: Agitation Last Admin: 05/25/18 20:57 Dose: 2 mg Metoprolol Tartrate (Lopressor) 75 mg PO BID [facility] Last Admin: 05/25/18 17:31 Dose: 75 mg Morphine Sulfate (Morphine) 2 mg IVP Q4 PRN PRN Reason: Pain, moderate (4-7) Last Admin: 05/26/18 06:01 Dose: 2 mg Rosuvastatin Calcium (Crestor) 5 mg PO HS [facility] Last Admin: 05/25/18 21:57 Dose: Not Given Senna/Docusate Sodium (Senokot S 50 Mg-8.6 Mg) 1 tab PO BID [facility] Last Admin: 05/25/18 17:31 Dose: 1 tab Vitamin A (Vitamin A & D Oint Ud Foilpak) 1 ea TOP BID PRN PRN Reason: Dry skin Last Admin: 05/20/18 06:50 Dose: 1 ea - Labs Labs: 05/26/18 07:36 05/26/18 07:36 PT 14.7 SECONDS (9.7-12.2) H 05/16/18 11:28 INR 1.3 05/16/18 11:28 APTT 35 SECONDS (21-34) H 05/16/18 11:28 Attending/Attestation - Attestation I have personally seen and examined this patient.: Yes I have fully participated in the care of the patient.: Yes I have reviewed all pertinent clinical information, including history, physical exam and plan: Yes Notes (Text): seen and examined Has fever spikes on Merrrem and flagyl cultures negative,chext x tesha without pneumonia continue antibiotics I agree with the resident's documentation
[2018-05-16] MEDS: Albuterol-Ipratrop 3 mg / 0.5 (3 ml) UD INH SCH ×6 (00:08→20:03)
[2018-05-16] MEDS: metroNIDAZOLE IV 500 mg/100 ml 500 MG/100 ML BAG IVPB SCH ×3 (01:18→22:57)
[2018-05-16] MEDS: Meropenem 1 GM in Sodium Chloride 0.9% 100 ML IVPB SCH ×3 (02:51→22:58)
[2018-05-16] MEDS: (Novolog) Insulin Aspart, Recombinant 100 u/ml 10 ml vial SC SCH ×4 (05:46→18:00)
[2018-05-16 06:06] LABS: BASO # 0.2 K/uL (0.0-0.2); BASO % 1.1 % (0.0-2.0); EOS # 0.2 K/uL (0.0-0.7); EOS % 1.2 % (0.0-4.0); HEMOGLOBIN 10.1 g/dL (11.0-16.0); LYMPH % 14.2 % (20.0-40.0); MEAN CELL VOLUME 79.4 fL (81.0-99.0); MEAN CORPUSCULAR HEMOGLOBIN 26.1 pg (27.0-31.0); MEAN CORPUSCULAR HGB CONC 32.8 g/dL (33.0-37.0); MEAN PLATELET VOLUME 11.8 fL (7.2-11.7); MONO # 1.2 K/uL (0.0-0.8); MONO % 8.1 % (0.0-10.0); NEUT # 10.9 K/uL (1.8-7.0); NEUT % 75.4 % (50.0-75.0); RBC 3.87 Mil/uL (3.80-5.20); RED CELL DISTRIBUTION WIDTH 15.8 % (11.5-14.5); WHITE BLOOD COUNT 14.4 K/uL (4.8-10.8)
[2018-05-16 06:27] LABS: ALB/GLOB RATIO 0.8 (1.0-2.1); ALBUMIN 2.7 g/dL (3.5-5.0); ALT/SGPT 64 U/L (9-52); AST/SGOT 67 U/L (14-36); BLOOD UREA NITROGEN 19 mg/dL (7-17); CALCIUM 7.9 mg/dl (8.6-10.4); GFR NON-AFRICAN AMERICAN > 60
[2018-05-16] MEDS: Docusate-Senna 50 mg-8.6 mg Tab PO SCH (10:00)
[2018-05-16] MEDS: Vitamins A & D Oint UD Foilpak TOP PRN (10:14)
[2018-05-16] MEDS: (Lantus) Insulin Glargine, Recombinant SC SCH (10:30)
[2018-05-16] MEDS: Pantoprazole 40 mg Susp UD NG SCH (10:32)
[2018-05-16] MEDS ORDERED: Iohexol 240 200 ML ONE (10:32)
[2018-05-16] MEDS: Lactobacillus Acidophilus 500 MU Cap PO SCH ×2 (10:41→17:55)
[2018-05-16] MEDS: Lactated Ringer's 1,000 ML IV SCH ×3 (11:07→21:01)
[2018-05-16] MEDS: levETIRAcetam 1,000 MG in Sodium Chloride 0.9% 100 ML IVPB SCH (11:11)
[2018-05-16 11:41] LABS: INR 1.3; PROTHROMBIN TIME 14.7 SECONDS (9.7-12.2)
[2018-05-16] MEDS: Labetalol 5mg/ml (4ml) IVP PRN (11:45)
[2018-05-16] MEDS ORDERED: Rocuronium 10 mg/ml (5 ml) ONE (13:30)
[2018-05-16] MEDS ORDERED: Phenylephrine 10 mg/ml Inj ONE (13:30)
--- NOTE | 2018-05-16 13:41 | RAD ---
Date of service: 05/16/2018 HISTORY: Questionable gastrostomy steve tube dislodged COMPARISON: Three views of the abdomen performed. Correlation made with CT scan chest abdomen pelvis dated 05/02/2018. FINDINGS: Metallic clips seen just to the right of midline mid abdomen. In situ gastrostomy tube, proximal aspect of which is opacified with opaque contrast material. The stomach and proximal small bowel are also opacified. There appears to be dilatation of the 3rd and 4th portions of what probably represent the duodenum. There is opacification of 1 or 2 proximal loops of jejunum as well.. There is a curvilinear opaque density overlying left mid abdomen part of which overlies the gastrostomy tube. This could represent extravasated contrast material on the surface external surface of the abdomen or overlying of bed clothing-bedsheets seen on image labeled 1 as this same density is not visualized on image labeled 2 or 3. Clinical correlation recommended. BOWEL: As above BONES: . Grossly unremarkable OTHER FINDINGS: None. IMPRESSION: Metallic clips seen just to the right of midline mid abdomen. In situ gastrostomy tube, proximal aspect of which is opacified with opaque contrast material. The stomach and proximal small bowel are also opacified. There appears to be dilatation of the 3rd and 4th portions of what probably represent the duodenum. There is opacification of 1 or 2 proximal loops of jejunum as well.. There is a curvilinear opaque density overlying left mid abdomen part of which overlies the gastrostomy tube. This could represent extravasated contrast material on the surface external surface of the abdomen or overlying of bed clothing-bedsheets seen on image labeled 1 as this same density is not visualized on image labeled 2 or 3. Clinical correlation recommended.
--- NOTE | 2018-05-16 14:21 | PCM.SURG1 ---
Surgeon's Initial Post Op Note - Surgeon's Notes Surgeon: Dr. Adams [employer] Truck Driver: Zonia Mclean, PGY2 Type of Anesthesia: General Tracheostomy Anesthesia Administered By: Dr. Lima Pre-Operative Diagnosis: Dislodged gastrostomy tube Operative Findings: Stomach pexied to the anterior peritoneum, no feeds visible in the abdomen Post-Operative Diagnosis: same Operation Performed: exploratory laparotomy and revision of [place] gastrostomy tube and insertion of new tube under direct visualization Specimen/Specimens Removed: none Estimated Blood Loss: EBL {In ML}: 10 Date of Surgery/Procedure: 05/16/18 Time of Surgery/Procedure: 13:00
--- NOTE | 2018-05-16 22:18 | OP ---
PROCEDURE DATE: 05/16/2018 PREOPERATIVE DIAGNOSIS: Gastrostomy tube fell out. PROCEDURE CARRIED OUT: Replacement of gastrostomy tube. SURGEON: Josh Adams Jr., MD [employer]WD[employer] MACHINE OPERATOR: Zonia Mclean DO ANESTHESIA: General anesthesia. ANESTHESIOLOGIST: Chaitanya Lima MD FINDINGS: The patient is a young woman, gastrostomy tube placed recently today. There is backflow on checking it. Initially, the contrast study showed that the tube is in the stomach. As we examined, the tube came out. We could not put back in. DESCRIPTION OF PROCEDURE: Because of this, we took her back in the operating room for placement. There was no contamination in the abdomen. There was no spread. There was no leaking gastric juice. The tube has simply come out. We took down the old sutures. We found the gastrostomy site. We placed a new tube through it. We then tacked it up against the abdominal wall. Checked for flow, checked for that it was not leaking and that there was a tight seal around it, and then we closed the abdomen again. The old sutures had been removed. These had to be re-sutured. The entire wound was closed. Antibiotics were given because the patient is already on antibiotics. Procedure was then terminated. Blood loss for the procedure was less than 10 mL. Operation carried out is removal of gastrostomy tube for which required formal exploration of the abdomen. Josh Adams Jr., MD
[2018-05-17] MEDS: levETIRAcetam 1,000 MG in Sodium Chloride 0.9% 100 ML IVPB SCH ×2 (00:15→11:26)
[2018-05-17] MEDS: (Novolog) Insulin Aspart, Recombinant 100 u/ml 10 ml vial SC SCH ×5 (00:28→18:19)
[2018-05-17] MEDS: Albuterol-Ipratrop 3 mg / 0.5 (3 ml) UD INH SCH ×5 (00:55→20:00)
[2018-05-17] MEDS: metroNIDAZOLE IV 500 mg/100 ml 500 MG/100 ML BAG IVPB SCH ×3 (05:50→21:44)
[2018-05-17] MEDS: Lactated Ringer's 1,000 ML IV SCH ×2 (05:51→16:30)
[2018-05-17] MEDS: Meropenem 1 GM in Sodium Chloride 0.9% 100 ML IVPB SCH ×3 (06:29→22:52)
[2018-05-17 07:09] LABS: ALB/GLOB RATIO 0.7 (1.0-2.1); ALBUMIN 2.4 g/dL (3.5-5.0); CALCIUM 7.5 mg/dl (8.6-10.4)
[2018-05-17 07:12] LABS: URINE BACTERIA OCC (<OCC); URINE BILIRUBIN NEGATIVE (NEGATIVE); URINE BLOOD 2+ (NEGATIVE); URINE CLARITY Hazy (Clear); URINE COLOR Yellow (YELLOW); URINE GLUCOSE (UA) 2+ mg/dL (Normal); URINE LEUKOCYTE ESTERASE 3+ Leu/uL (Negative); URINE PROTEIN 1+ mg/dL (NEGATIVE); URINE UROBILINOGEN NORMAL mg/dL (0.2-1.0); WBC CLUMPS MANY /hpf
[2018-05-17 07:36] LABS: BASO # 0.1 K/uL (0.0-0.2); BASO % 0.9 % (0.0-2.0); EOS # 0.1 K/uL (0.0-0.7); EOS % 0.5 % (0.0-4.0); HEMOGLOBIN 9.2 g/dL (11.0-16.0); LYMPH # 1.9 K/uL (1.0-4.3); LYMPH % 14.3 % (20.0-40.0); MEAN CELL VOLUME 80.5 fL (81.0-99.0); MEAN CORPUSCULAR HEMOGLOBIN 26.7 pg (27.0-31.0); MEAN CORPUSCULAR HGB CONC 33.2 g/dL (33.0-37.0); MEAN PLATELET VOLUME 11.6 fL (7.2-11.7); MONO # 1.2 K/uL (0.0-0.8); MONO % 8.9 % (0.0-10.0); NEUT # 9.9 K/uL (1.8-7.0); NEUT % 75.4 % (50.0-75.0); NRBC % 0.2 % (0.0-2.0); RBC 3.45 Mil/uL (3.80-5.20); RED CELL DISTRIBUTION WIDTH 15.7 % (11.5-14.5); WHITE BLOOD COUNT 13.1 K/uL (4.8-10.8)
--- NOTE | 2018-05-17 08:34 | RAD ---
Date of service: 05/17/2018 HISTORY: fever post op COMPARISON: 05/13/2018 FINDINGS: The tracheostomy tube is in stable position. The right PICC line terminates at the cavoatrial junction LUNGS: The lungs are well inflated and clear. PLEURA: No pleural effusions or pneumothorax. CARDIOVASCULAR: The heart is normal in size. No aortic atherosclerotic calcification present. OSSEOUS STRUCTURES: Within normal limits for the patient's age. VISUALIZED UPPER ABDOMEN: Normal. OTHER FINDINGS: None. IMPRESSION: No active pulmonary disease. No significant interval change.
--- NOTE | 2018-05-17 09:54 | CP.PCM.PN ---
<Channing Tate - Last Filed: 05/17/18 16:11> Subjective - Date & Time of Evaluation Date of Evaluation: 05/17/18 Time of Evaluation: 09:49 - Subjective Subjective: Channing Tate PGY1 Progress Note for Dr. Quach Pt was examined at bedside this morning. She was resting comfortable. Pt is non verbal at this time. Sister was present at bedside, reported the pt slept calmly last night but was slightly anxious this morning upon waking up. Objective - Vital Signs/Intake and Output Vital Signs (last 24 hours): Temp Pulse Resp BP Pulse Ox 101.2 F H 89 20 113/66 99 05/17/18 07:00 05/17/18 07:00 05/17/18 07:00 05/17/18 07:00 05/17/18 07:00 Intake and Output: 05/17/18 05/17/18 06:59 18:59 Intake Total 800 800 Output Total 700 100 Balance 100 700 - Medications Medications: Current Medications Acetaminophen (Tylenol 650 Mg Supp) 650 mg AR Q6 PRN PRN Reason: Fever >100.4 F Last Admin: 05/17/18 06:28 Dose: 650 mg Albuterol/Ipratropium (Duoneb 3 Mg/0.5 Mg (3 Ml) Ud) 3 ml INH RQ4 [facility] Last Admin: 05/17/18 09:06 Dose: 3 ml Amlodipine Besylate (Norvasc) 10 mg PO DAILY [facility] Last Admin: 05/16/18 10:31 Dose: Not Given Aspirin (Ecotrin) 81 mg PO DAILY [facility] Last Admin: 05/10/18 09:45 Dose: 81 mg Bisacodyl (Dulcolax) 10 mg AR TID PRN PRN Reason: Constipation Last Admin: 05/10/18 09:45 Dose: 10 mg Clopidogrel Bisulfate (Plavix) 75 mg PO DAILY [facility] Last Admin: 05/16/18 10:32 Dose: Not Given Dextrose (Dextrose 50% Inj) 0 ml IV STAT PRN; Protocol PRN Reason: Hypoglycemia Protocol Dextrose (Glutose 15) 15 gm PO ONCE PRN; Protocol PRN Reason: Hypoglycemia Protocol Famotidine (Pepcid) 20 mg IVP Q12 [facility] Last Admin: 05/17/18 09:00 Dose: 20 mg Glucagon (Glucagen Diagnostic Kit) 1 mg IM STAT PRN; Protocol PRN Reason: Hypoglycemia Protocol Heparin Sodium (Porcine) (Heparin) 5,000 units SC Q8 [facility] Last Admin: 05/16/18 05:49 Dose: 5,000 units Levetiracetam 1,000 mg/ Sodium (Chloride) 110 mls @ 420 mls/hr IVPB Q12H [facility] Last Admin: 05/17/18 00:15 Dose: 420 mls/hr Dextrose (Dextrose 5% In Water 1000 Ml) 1,000 mls @ 0 mls/hr IV .Q0M PRN; Protocol PRN Reason: Hypoglycemia Protocol Lactated Ringer's (Lactated Ringer's) 1,000 mls @ 100 mls/hr IV .Q10H [facility] Last Admin: 05/17/18 05:51 Dose: 100 mls/hr Fluconazole (Diflucan Iv 400mg/200ml Ns) 200 mls @ 100 mls/hr IVPB DAILY [facility]; Protocol Metronidazole (Flagyl) 500 mg in 100 mls @ 100 mls/hr IVPB Q8H [facility]; Protocol Stop: 05/17/18 22:46 Last Admin: 05/17/18 05:50 Dose: 100 mls/hr Meropenem 1 gm/ Sodium (Chloride) 100 mls @ 100 mls/hr IVPB Q8H [facility]; Protocol Stop: 05/17/18 23:01 Last Admin: 05/17/18 06:29 Dose: 100 mls/hr Ibuprofen (Motrin Oral Susp) 200 mg PO Q6H PRN PRN Reason: Fever >100.4 F Last Admin: 05/15/18 07:01 Dose: 200 mg Insulin Aspart (Novolog) 0 unit SC Q6 [facility]; Protocol Last Admin: 05/17/18 06:42 Dose: 4 units Insulin Glargine (Lantus) 10 unit SC DAILY [facility] Last Admin: 05/16/18 10:30 Dose: Not Given Labetalol HCl (Trandate) 10 mg IVP Q4H PRN PRN Reason: Systolic Blood Pressure Last Admin: 05/16/18 11:45 Dose: 10 mg Lactobacillus Acidophilus (Bacid Acidophilus) 1 cap PO BID [facility] Last Admin: 05/16/18 17:55 Dose: Not Given Lactulose (Enulose) 20 gm PO DAILY PRN PRN Reason: Constipation Last Admin: 05/10/18 09:45 Dose: 20 gm Lorazepam (Ativan) 1 mg IVP Q4 PRN PRN Reason: Restlessness Last Admin: 05/17/18 06:29 Dose: 1 mg Metoprolol Tartrate (Lopressor) 75 mg PO BID [facility] Last Admin: 05/16/18 10:31 Dose: Not Given Morphine Sulfate (Morphine) 2 mg IVP Q4 PRN PRN Reason: Pain, moderate (4-7) Last Admin: 05/12/18 10:15 Dose: 2 mg Rosuvastatin Calcium (Crestor) 5 mg PO HS [facility] Last Admin: 05/15/18 21:45 Dose: 5 mg Senna/Docusate Sodium (Senokot S 50 Mg-8.6 Mg) 1 tab PO BID [facility] Last Admin: 05/16/18 10:00 Dose: Not Given Vitamin A (Vitamin A & D Oint Ud Foilpak) 1 ea TOP BID PRN PRN Reason: Dry skin Last Admin: 05/16/18 10:14 Dose: 1 ea - Labs Labs: 05/17/18 06:46 05/17/18 06:46 PT 14.7 SECONDS (9.7-12.2) H 05/16/18 11:28 INR 1.3 05/16/18 11:28 APTT 35 SECONDS (21-34) H 05/16/18 11:28 - Additional Findings Additional findings: - Constitutional Appears: No Acute Distress, Chronically Ill - Head Exam Head Exam: ATRAUMATIC, NORMOCEPHALIC - Eye Exam Eye Exam: EOMI, Normal appearance - ENT Exam ENT Exam: Mucous Membranes Moist - Neck Exam Additional comments: trache site clean, dry, intact - Respiratory Exam Respiratory Exam: Clear to Ausculation Bilateral, NORMAL BREATHING PATTERN. absent: Rales, Rhonchi, Wheezes - Cardiovascular Exam Cardiovascular Exam: REGULAR RHYTHM, +S1, +S2. absent: Gallop, Rubs, Murmur - GI/Abdominal Exam GI & Abdominal Exam: Soft, Normal Bowel Sounds. absent: Distended, Tenderness - Extremities Exam Extremities Exam: Pedal Edema - Neurological Exam Neurological Exam: Awake. absent: Oriented x3 - Skin Skin Exam: Normal Color Assessment and Plan - Assessment and Plan (Free Text) Plan: Respiratory Failure - Due to Asphyxiation/Possible Suicide Attempt - Intubated, on vent @FiO2 40 - s/p tracheotomy - s/p G tube repositioning 05/16 - pending transfer to LTAC Leukocytosis - Tmax today 102.1 6am - rpt CXR: no active disease - f/u rpt BCX and UCx - UA: leuk est 3+, +WBC, +RBC, nitrate - - BCx 05/02/18: negative - UCx 05/06/18: negative - Tracheal Aspirate Cx 05/08/18: yeast - colindres changed today - cooling blanket - ice packs PRN fever - Flagyl 500 mg IV Q8H - Meropenem 500 mg IV Q8H Anoxic Brain Injury - rpt EEG completed: f/u report - EEG 05/04: diffuse encephalopathy with burst suppression. - Repeat CT head: no bleeding - MRI Brain: subacute favored over acute cerebral hypoxic insult with minimal involvement of the lower haris and the cerebellar hemispheres - keppra 1,000 mg IV Q12H - Ativan 1mg q4h PRN - Neurology consulted, Dr. Duff/Guilherme NSTEMI - Elevated troponin - ASA 81 mg PO daily - Crestor 5 mg PO daily - Cardiology consulted, Dr Gay Transaminitis - Likely shock liver - Follow LFTs DM - Lantus 10 Units SC - Aspart ISS Q6H ARF - Likely Secondary to ATN with Hypernatremia - BUN/Cr have improved - Nephrology consulted, Dr. Samuels HTN - Metoprolol Tartrate 75 mg PO BID - Norvasc 5 mg PO 1x/day - Labetalol 10 mg IV Q4H PRN SBP > 140 PPx Heparin 5,000 Units SC Q8H Protonix 40 mg GT Feeding resumed today Aspiration precautions Seizure precautions suction PRN Turn and reposition q2h PT/OT Case discussed and plan with Dr. Quach <Yajaira Quach V - Last Filed: 05/17/18 22:14> Objective - Vital Signs/Intake and Output Vital Signs (last 24 hours): Temp Pulse Resp BP Pulse Ox 99.1 F 84 20 130/76 98 05/17/18 16:03 05/17/18 16:03 05/17/18 16:03 05/17/18 16:03 05/17/18 16:03 Intake and Output: 05/17/18 05/18/18 18:59 06:59 Intake Total 1700 Output Total 700 Balance 1000 - Medications Medications: Current Medications Acetaminophen (Tylenol 650 Mg Supp) 650 mg AR Q6 PRN PRN Reason: Fever >100.4 F Last Admin: 05/17/18 12:29 Dose: 650 mg Albuterol/Ipratropium (Duoneb 3 Mg/0.5 Mg (3 Ml) Ud) 3 ml INH RQ4 [facility] Last Admin: 05/17/18 20:00 Dose: 3 ml Amlodipine Besylate (Norvasc) 10 mg PO DAILY [facility] Last Admin: 05/16/18 10:31 Dose: Not Given Aspirin (Ecotrin) 81 mg PO DAILY [facility] Last Admin: 05/10/18 09:45 Dose: 81 mg Bisacodyl (Dulcolax) 10 mg AR TID PRN PRN Reason: Constipation Last Admin: 05/10/18 09:45 Dose: 10 mg Clopidogrel Bisulfate (Plavix) 75 mg PO DAILY [facility] Last Admin: 05/16/18 10:32 Dose: Not Given Dextrose (Dextrose 50% Inj) 0 ml IV STAT PRN; Protocol PRN Reason: Hypoglycemia Protocol Dextrose (Glutose 15) 15 gm PO ONCE PRN; Protocol PRN Reason: Hypoglycemia Protocol Famotidine (Pepcid) 20 mg IVP Q12 [facility] Last Admin: 05/17/18 09:00 Dose: 20 mg Glucagon (Glucagen Diagnostic Kit) 1 mg IM STAT PRN; Protocol PRN Reason: Hypoglycemia Protocol Heparin Sodium (Porcine) (Heparin) 5,000 units SC Q8 [facility] Last Admin: 05/16/18 05:49 Dose: 5,000 units Heparin Sodium (Porcine) (Heparin) 5,000 units SC Q8 [facility] Levetiracetam 1,000 mg/ Sodium (Chloride) 110 mls @ 420 mls/hr IVPB Q12H [facility] Last Admin: 05/17/18 11:26 Dose: 420 mls/hr Dextrose (Dextrose 5% In Water 1000 Ml) 1,000 mls @ 0 mls/hr IV .Q0M PRN; Protocol PRN Reason: Hypoglycemia Protocol Lactated Ringer's (Lactated Ringer's) 1,000 mls @ 100 mls/hr IV .Q10H [facility] Last Admin: 05/17/18 16:30 Dose: Not Given Fluconazole (Diflucan Iv 400mg/200ml Ns) 200 mls @ 100 mls/hr IVPB DAILY [facility]; Protocol Metronidazole (Flagyl) 500 mg in 100 mls @ 100 mls/hr IVPB Q8H [facility]; Protocol Stop: 05/17/18 22:46 Last Admin: 05/17/18 14:36 Dose: 100 mls/hr Meropenem 1 gm/ Sodium (Chloride) 100 mls @ 100 mls/hr IVPB Q8H [facility]; Protocol Stop: 05/17/18 23:01 Last Admin: 05/17/18 14:54 Dose: 100 mls/hr Ibuprofen (Motrin Oral Susp) 200 mg PO Q6H PRN PRN Reason: Fever >100.4 F Last Admin: 05/15/18 07:01 Dose: 200 mg Insulin Aspart (Novolog) 0 unit SC Q6 [facility]; Protocol Last Admin: 05/17/18 18:19 Dose: 6 units Insulin Glargine (Lantus) 10 unit SC DAILY [facility] Last Admin: 05/17/18 11:35 Dose: Not Given Labetalol HCl (Trandate) 10 mg IVP Q4H PRN PRN Reason: Systolic Blood Pressure Last Admin: 05/16/18 11:45 Dose: 10 mg Lactobacillus Acidophilus (Bacid Acidophilus) 1 cap PO BID [facility] Last Admin: 05/17/18 19:00 Dose: 1 cap Lactulose (Enulose) 20 gm PO DAILY PRN PRN Reason: Constipation Last Admin: 05/10/18 09:45 Dose: 20 gm Lorazepam (Ativan) 1 mg IVP Q4 PRN PRN Reason: Restlessness Last Admin: 05/17/18 06:29 Dose: 1 mg Metoprolol Tartrate (Lopressor) 75 mg PO BID [facility] Last Admin: 05/16/18 10:31 Dose: Not Given Morphine Sulfate (Morphine) 2 mg IVP Q4 PRN PRN Reason: Pain, moderate (4-7) Last Admin: 05/12/18 10:15 Dose: 2 mg Rosuvastatin Calcium (Crestor) 5 mg PO HS [facility] Last Admin: 05/15/18 21:45 Dose: 5 mg Senna/Docusate Sodium (Senokot S 50 Mg-8.6 Mg) 1 tab PO BID [facility] Last Admin: 05/16/18 10:00 Dose: Not Given Vitamin A (Vitamin A & D Oint Ud Foilpak) 1 ea TOP BID PRN PRN Reason: Dry skin Last Admin: 05/16/18 10:14 Dose: 1 ea - Labs Labs: 05/17/18 06:46 05/17/18 06:46 PT 14.7 SECONDS (9.7-12.2) H 05/16/18 11:28 INR 1.3 05/16/18 11:28 APTT 35 SECONDS (21-34) H 05/16/18 11:28 Attending/Attestation - Attestation I have personally seen and examined this patient.: Yes I have fully participated in the care of the patient.: Yes I have reviewed all pertinent clinical information, including history, physical exam and plan: Yes Notes (Text): 52 year old Female with past medical history of diabetes brought in after being found unresponsive, patient initially called as code stroke, patient noted to have suspicious rope digna over neck, [place] police investigated ruled for suicide attempt. Please refer to my note which is updated in detail in assessment/plan and in disposition. 1) Respiratory Failure Assessment/Plan * Due to Asphyxiation/Possible Suicide Attempt * Patient is extubated; s/p trachestomy on vent (PRVC setting) * Pulmonary consulted to assist in weaning off vent (Dr. Brennan air conditioning specialist) * s/p tracheotomy and gastrostomy tube on 05/11/18 * s/p Gastrostomy tube repositioning 05/16/18. * Surgery has allow to restart feeds through the tube * Duoneb 3ml INH RQ4H * Patient will need oral hygiene to reduce risk of aspiration * Elevated bed to 30 degrees * Aspiration precautions 2) Leukocytosis Abnormal UA Fever Assessment/Plan * Patient noted to be spiking low grade fever during hospitalizations in light of anoxic brain injury; however Tmax: 102.1F (05/17/18) in light of recent Gtube exchange on 05/16/18 * There are no cooling blankets to assist in lower fever; advised nurse to place ice packs over axilla and groin to help lower fever * Patient is on Tylenol PRN to lower fever * Patient has had elevated white count throughout hospitalization. * White count is downtrending * Patient last received steroind on 05/05/18 * Patient is on IV abx: * Meropenem 1 gram IVPB 8H (active since 05/02/18) * Flagyl 500mg IVPB Q8H( active since 05/06/18) * Chest xray (05/17/18): no active pulmonary disease. no significant finding (POD 1 from G tube repositioning) * Blood culture (05/13/18): no growth after 4 days X2 * f/u Blood culture (05/17/18) ordered in light of fever spike * f/u urine culture (05/17/18) ordered in light of fever spike * UA has multiple pyruia/hematuria/white clumps/bacteria * Patient does have colindres * Ordered for procalcitonin repeat * Prior procalcitonin 05/02): 30.81 * patient noted to have yeast in urine * Patient has not receive Diflucan because there is no IV diflucan and Gtube needed repositioning on Thursday * We can now use Gtube; started on Diflucan 100mg PO daily to cover for yeast; we will follow with ID for duration and length * Sputum culture (prior sputum could not be used) 3) Anoxic Encephalopathy Assessment/Plan * Code stroke on admission * Neurology (Dr. Vanegas/Dr. Duff) on case * Keppra 1000mg IVPB Q12h * Ativan 1 IVP Q4H PRN * CT head (05/01/18): negative * CT head/neck (05/01/18): no suspicious findings noted * CT Head (05/02/18): edematous changes are globally appreciated compatible with anxoic encephalopathy. No intracrnial hemorrhage identifed. * CT Head (05/03/18): stable poor cortical medullary differentiation with scattered edematous changes. no significant interval change. * CT Head (05/04/18): little interval change in poor corticomedullary differe ntiation mild cerebral edema. Abnormal appearance of bilateral thalmocapsular regions concerning for hypoxic anoxic insult * EEG (05/04/18): abnormal EEG record demonstrate presence of severe nonspecific diffuse disturbance of cortical acitity, this is keeping with a diffuse box matter dysfunction, not specific * Patient is ordered for Video EEG, however not available to performed at [facility] at this time. * Pending Brain MRI recommended by neuro on 05/04 however patient was intubated and could not get MRI while on vent * patient is on trach connected on PRVC unable to get Brain MRI to see specific evidence 4) Elevated Troponin Assessment/Plan * Cardiology (Dr. Gay) on case-->help appreciated * Echo report shows normal EF: 65-70% with normal systolic function * Patient did not meet code heart criteria on admission * Elevated to 5.06 on 05/02/18 * Will repeat ELODIA tomorrow * Aspirin 81mg PO daily * Plavix 75mg PO daily * Lopressor 75mg PO BID * Crestor 5mg PO qHS * T, Chol: 206, LDL: 138, HDL 24 * hgba1c: 10.2 5) Transaminitis Assessment/Plan * mild transaminitis (51) * Crestor 5mg POqHS 6) Diabetes Assessment/Plan * Hgba1c: 10.2 * Accuchecks Q6H * Lantus 10 Units SC HS * Aspirin 81mg PO daily restarted post-procedure * Hypoglycemic protocol * Novolog Q6H 7) Acute Renal Failure ATN (Ischemic vs septic) Assessment/Plan * Nephrology (Dr. Samuels) on consult-->help appreciated-->signed off * Monitor BUN/Cr * LR 100cc/hr 8) Hypertension Assessment/Plan * controlled * Metoprolol Tartrate 75 mg PO BID * Norvasc 10 mg PO 1x/day * Labetalol 10 mg IV Q4H PRN SBP > 140 9) PPx * Restart Heparin 5,000 Units SC Q8H * Pepcid 20mg IV Q12H for GI ppx * GT Feeding resumed today per surgery clearance * Aspiration precautions * Seizure precautions * Oral hygiene * Suction PRN * Turn and reposition q2h * Feed: Glucerna 1.5 start 20ml/hr; goal rate of 55ml; water flushes 400 [id number] * D/c IV fluids Disposition: patient had fever overnight. Patient was recultured f/u blood and urine cultures. Patient is at risk of aspiration. I have placed for aspiration precautions and oral hygiene. Chest xray overnight no acute change. Patient has abnormal UA, f/u urine culture. patient is on meropenem and flagyl please note to resident to renew medications to not have it fall off in the EMR. Patient is s/p trach but is on PRVC vent. I have consult pulm air conditioning specialist to assist in weaning. Patient ordered for repeat procalcitonin since initial on admission was quite high. Patient's ELODIA on admission was elevated, order repeat to monitor trend. Patient to start antifungal via peg tube given yeast noted in trach and prior urine. Resident to f/u ID regarding duration and length. Repeat sputum culture as well. Patient does not have insurance; Will need to start application for LTAC. She is s/p trach and gtube.
[2018-05-17] MEDS ORDERED: Fluconazole IV 400mg/200ml NS 200 ML IVPB SCH (10:00)
[2018-05-17] MEDS: (Lantus) Insulin Glargine, Recombinant SC SCH (11:35)
[2018-05-17] MEDS: Lactobacillus Acidophilus 500 MU Cap PO SCH ×2 (11:35→19:00)
--- NOTE | 2018-05-17 12:24 | CP.PCM.PN ---
Subjective - Date & Time of Evaluation Date of Evaluation: 05/17/18 Time of Evaluation: 12:30 - Subjective Subjective: Lamont Barclay, PGY-[address] Gay Patient seen and evaluated at bedside.Family member at bedside. Patient nonverbal. No acute events overnight, although patient did spike fever of 102.1 degrees. Objective - Vital Signs/Intake and Output Vital Signs (last 24 hours): Temp Pulse Resp BP Pulse Ox 101.2 F H 89 20 113/66 99 05/17/18 07:00 05/17/18 07:00 05/17/18 07:00 05/17/18 07:00 05/17/18 07:00 Intake and Output: 05/17/18 05/17/18 06:59 18:59 Intake Total 800 800 Output Total 700 100 Balance 100 700 - Medications Medications: Current Medications Acetaminophen (Tylenol 650 Mg Supp) 650 mg CA Q6 PRN PRN Reason: Fever >100.4 F Last Admin: 05/17/18 06:28 Dose: 650 mg Albuterol/Ipratropium (Duoneb 3 Mg/0.5 Mg (3 Ml) Ud) 3 ml INH RQ4 [facility] Last Admin: 05/17/18 09:06 Dose: 3 ml Amlodipine Besylate (Norvasc) 10 mg PO DAILY [facility] Last Admin: 05/16/18 10:31 Dose: Not Given Aspirin (Ecotrin) 81 mg PO DAILY [facility] Last Admin: 05/10/18 09:45 Dose: 81 mg Bisacodyl (Dulcolax) 10 mg CA TID PRN PRN Reason: Constipation Last Admin: 05/10/18 09:45 Dose: 10 mg Clopidogrel Bisulfate (Plavix) 75 mg PO DAILY [facility] Last Admin: 05/16/18 10:32 Dose: Not Given Dextrose (Dextrose 50% Inj) 0 ml IV STAT PRN; Protocol PRN Reason: Hypoglycemia Protocol Dextrose (Glutose 15) 15 gm PO ONCE PRN; Protocol PRN Reason: Hypoglycemia Protocol Famotidine (Pepcid) 20 mg IVP Q12 [facility] Last Admin: 05/17/18 09:00 Dose: 20 mg Glucagon (Glucagen Diagnostic Kit) 1 mg IM STAT PRN; Protocol PRN Reason: Hypoglycemia Protocol Heparin Sodium (Porcine) (Heparin) 5,000 units SC Q8 [facility] Last Admin: 05/16/18 05:49 Dose: 5,000 units Levetiracetam 1,000 mg/ Sodium (Chloride) 110 mls @ 420 mls/hr IVPB Q12H [facility] Last Admin: 05/17/18 11:26 Dose: 420 mls/hr Dextrose (Dextrose 5% In Water 1000 Ml) 1,000 mls @ 0 mls/hr IV .Q0M PRN; Protocol PRN Reason: Hypoglycemia Protocol Lactated Ringer's (Lactated Ringer's) 1,000 mls @ 100 mls/hr IV .Q10H [facility] Last Admin: 05/17/18 05:51 Dose: 100 mls/hr Fluconazole (Diflucan Iv 400mg/200ml Ns) 200 mls @ 100 mls/hr IVPB DAILY [facility]; Protocol Metronidazole (Flagyl) 500 mg in 100 mls @ 100 mls/hr IVPB Q8H [facility]; Protocol Stop: 05/17/18 22:46 Last Admin: 05/17/18 05:50 Dose: 100 mls/hr Meropenem 1 gm/ Sodium (Chloride) 100 mls @ 100 mls/hr IVPB Q8H [facility]; Protocol Stop: 05/17/18 23:01 Last Admin: 05/17/18 06:29 Dose: 100 mls/hr Ibuprofen (Motrin Oral Susp) 200 mg PO Q6H PRN PRN Reason: Fever >100.4 F Last Admin: 05/15/18 07:01 Dose: 200 mg Insulin Aspart (Novolog) 0 unit SC Q6 [facility]; Protocol Last Admin: 05/17/18 06:42 Dose: 4 units Insulin Glargine (Lantus) 10 unit SC DAILY [facility] Last Admin: 05/17/18 11:35 Dose: Not Given Labetalol HCl (Trandate) 10 mg IVP Q4H PRN PRN Reason: Systolic Blood Pressure Last Admin: 05/16/18 11:45 Dose: 10 mg Lactobacillus Acidophilus (Bacid Acidophilus) 1 cap PO BID [facility] Last Admin: 05/17/18 11:35 Dose: Not Given Lactulose (Enulose) 20 gm PO DAILY PRN PRN Reason: Constipation Last Admin: 05/10/18 09:45 Dose: 20 gm Lorazepam (Ativan) 1 mg IVP Q4 PRN PRN Reason: Restlessness Last Admin: 05/17/18 06:29 Dose: 1 mg Metoprolol Tartrate (Lopressor) 75 mg PO BID [facility] Last Admin: 05/16/18 10:31 Dose: Not Given Morphine Sulfate (Morphine) 2 mg IVP Q4 PRN PRN Reason: Pain, moderate (4-7) Last Admin: 05/12/18 10:15 Dose: 2 mg Rosuvastatin Calcium (Crestor) 5 mg PO HS [facility] Last Admin: 05/15/18 21:45 Dose: 5 mg Senna/Docusate Sodium (Senokot S 50 Mg-8.6 Mg) 1 tab PO BID [facility] Last Admin: 05/16/18 10:00 Dose: Not Given Vitamin A (Vitamin A & D Oint Ud Foilpak) 1 ea TOP BID PRN PRN Reason: Dry skin Last Admin: 05/16/18 10:14 Dose: 1 ea - Labs Labs: 05/17/18 06:46 05/17/18 06:46 PT 14.7 SECONDS (9.7-12.2) H 05/16/18 11:28 INR 1.3 05/16/18 11:28 APTT 35 SECONDS (21-34) H 05/16/18 11:28 - Additional Findings Additional findings: - Constitutional Appears: Chronically Ill - Head Exam Head Exam: ATRAUMATIC, NORMOCEPHALIC - Eye Exam Eye Exam: EOMI, Normal appearance - ENT Exam ENT Exam: Mucous Membranes Moist - Neck Exam Additional comments: trach site clean, dry, intact - Respiratory Exam Respiratory Exam: Clear to Ausculation Bilateral, NORMAL BREATHING PATTERN. absent: Rales, Rhonchi, Wheezes - Cardiovascular Exam Cardiovascular Exam: REGULAR RHYTHM, +S1, +S2. absent: Gallop, Rubs, Murmur - GI/Abdominal Exam GI & Abdominal Exam: Soft, Normal Bowel Sounds. absent: Distended, Tenderness pending g-tube repositioning - Extremities Exam Extremities Exam: Pedal Edema - Neurological Exam Neurological Exam: Awake. absent: Oriented x3 - Skin Skin Exam: Normal Color Assessment and Plan - Assessment and Plan (Free Text) Assessment: Assessment: 52 F with suspected suicide attempt who presents with anoxic brain injury. S/p gastrostomy tube re-placement. S/p trach. Hypertensive Emergency - Initially permissive HTN per Neuro, vitals stable with paroxysmal labile BP - MRI brain results at [place]: Findings most compatible with subacute favored over acute cerebral hypoxic insult with minimal involvement of the lower haris and the cerebellar hemispheres as well. Blood flow in the basilar and bilateral cavernous internal carotid artery segments appears adequately maintained. - CT head showed stable poor cortical medullary differentiation - ASA, Plavix, Statin, Lopressor, Amlodipine, Labetalol PRN - Continue to monitor Elevated Troponins - 3rd Trop elevated to 5.06 05/02, f/u repeat trop and CK-MB in AM - Echo report shows normal EF 65-70% with normal systolic function - pro BNP 35 - Heparin SC Patient seen, case reviewed, and plan discussed with Dr. Gay. Future recs per Dr. Gay. Lamont Barclay, PGY-1
--- NOTE | 2018-05-17 13:24 | CP.PCM.PN ---
Subjective - Date & Time of Evaluation Date of Evaluation: 05/17/18 Time of Evaluation: 09:00 - Subjective Subjective: Surgery: Dr. Adams Pt seen and examined. No acute overnight events. Pt is s/p revision of G-tube; POD#1. Remains at her baseline GCS 9T ([id number]). fevers overnight, Tmax 102. Objective - Vital Signs/Intake and Output Vital Signs (last 24 hours): Temp Pulse Resp BP Pulse Ox 101.9 F H 89 20 113/66 99 05/17/18 12:29 05/17/18 07:00 05/17/18 07:00 05/17/18 07:00 05/17/18 07:00 Intake and Output: 05/17/18 05/17/18 06:59 18:59 Intake Total 800 800 Output Total 700 100 Balance 100 700 - Medications Medications: Current Medications Acetaminophen (Tylenol 650 Mg Supp) 650 mg KS Q6 PRN PRN Reason: Fever >100.4 F Last Admin: 05/17/18 12:29 Dose: 650 mg Albuterol/Ipratropium (Duoneb 3 Mg/0.5 Mg (3 Ml) Ud) 3 ml INH RQ4 [facility] Last Admin: 05/17/18 09:06 Dose: 3 ml Amlodipine Besylate (Norvasc) 10 mg PO DAILY [facility] Last Admin: 05/16/18 10:31 Dose: Not Given Aspirin (Ecotrin) 81 mg PO DAILY [facility] Last Admin: 05/10/18 09:45 Dose: 81 mg Bisacodyl (Dulcolax) 10 mg KS TID PRN PRN Reason: Constipation Last Admin: 05/10/18 09:45 Dose: 10 mg Clopidogrel Bisulfate (Plavix) 75 mg PO DAILY [facility] Last Admin: 05/16/18 10:32 Dose: Not Given Dextrose (Dextrose 50% Inj) 0 ml IV STAT PRN; Protocol PRN Reason: Hypoglycemia Protocol Dextrose (Glutose 15) 15 gm PO ONCE PRN; Protocol PRN Reason: Hypoglycemia Protocol Famotidine (Pepcid) 20 mg IVP Q12 [facility] Last Admin: 05/17/18 09:00 Dose: 20 mg Glucagon (Glucagen Diagnostic Kit) 1 mg IM STAT PRN; Protocol PRN Reason: Hypoglycemia Protocol Heparin Sodium (Porcine) (Heparin) 5,000 units SC Q8 [facility] Last Admin: 05/16/18 05:49 Dose: 5,000 units Levetiracetam 1,000 mg/ Sodium (Chloride) 110 mls @ 420 mls/hr IVPB Q12H [facility] Last Admin: 05/17/18 11:26 Dose: 420 mls/hr Dextrose (Dextrose 5% In Water 1000 Ml) 1,000 mls @ 0 mls/hr IV .Q0M PRN; Protocol PRN Reason: Hypoglycemia Protocol Lactated Ringer's (Lactated Ringer's) 1,000 mls @ 100 mls/hr IV .Q10H [facility] Last Admin: 05/17/18 05:51 Dose: 100 mls/hr Fluconazole (Diflucan Iv 400mg/200ml Ns) 200 mls @ 100 mls/hr IVPB DAILY [facility]; Protocol Metronidazole (Flagyl) 500 mg in 100 mls @ 100 mls/hr IVPB Q8H [facility]; Protocol Stop: 05/17/18 22:46 Last Admin: 05/17/18 05:50 Dose: 100 mls/hr Meropenem 1 gm/ Sodium (Chloride) 100 mls @ 100 mls/hr IVPB Q8H [facility]; Protocol Stop: 05/17/18 23:01 Last Admin: 05/17/18 06:29 Dose: 100 mls/hr Ibuprofen (Motrin Oral Susp) 200 mg PO Q6H PRN PRN Reason: Fever >100.4 F Last Admin: 05/15/18 07:01 Dose: 200 mg Insulin Aspart (Novolog) 0 unit SC Q6 [facility]; Protocol Last Admin: 05/17/18 12:29 Dose: 2 units Insulin Glargine (Lantus) 10 unit SC DAILY [facility] Last Admin: 05/17/18 11:35 Dose: Not Given Labetalol HCl (Trandate) 10 mg IVP Q4H PRN PRN Reason: Systolic Blood Pressure Last Admin: 05/16/18 11:45 Dose: 10 mg Lactobacillus Acidophilus (Bacid Acidophilus) 1 cap PO BID [facility] Last Admin: 05/17/18 11:35 Dose: Not Given Lactulose (Enulose) 20 gm PO DAILY PRN PRN Reason: Constipation Last Admin: 05/10/18 09:45 Dose: 20 gm Lorazepam (Ativan) 1 mg IVP Q4 PRN PRN Reason: Restlessness Last Admin: 05/17/18 06:29 Dose: 1 mg Metoprolol Tartrate (Lopressor) 75 mg PO BID [facility] Last Admin: 05/16/18 10:31 Dose: Not Given Morphine Sulfate (Morphine) 2 mg IVP Q4 PRN PRN Reason: Pain, moderate (4-7) Last Admin: 05/12/18 10:15 Dose: 2 mg Rosuvastatin Calcium (Crestor) 5 mg PO HS [facility] Last Admin: 05/15/18 21:45 Dose: 5 mg Senna/Docusate Sodium (Senokot S 50 Mg-8.6 Mg) 1 tab PO BID [facility] Last Admin: 05/16/18 10:00 Dose: Not Given Vitamin A (Vitamin A & D Oint Ud Foilpak) 1 ea TOP BID PRN PRN Reason: Dry skin Last Admin: 05/16/18 10:14 Dose: 1 ea - Labs Labs: 05/17/18 06:46 05/17/18 06:46 PT 14.7 SECONDS (9.7-12.2) H 05/16/18 11:28 INR 1.3 05/16/18 11:28 APTT 35 SECONDS (21-34) H 05/16/18 11:28 - Constitutional Appears: No Acute Distress - Eye Exam Eye Exam: Normal appearance - ENT Exam Additional comments: Tracheostomy in place - Cardiovascular Exam Cardiovascular Exam: RRR - GI/Abdominal Exam GI & Abdominal Exam: Soft. absent: Distended Additional comments: G-tube in place; Midline incision with wilmer, C/D/I - Neurological Exam Neurological Exam: Awake - Skin Skin Exam: Dry, Warm Assessment and Plan - Assessment and Plan (Free Text) Assessment: 52F s/p revision of G-tube; POD#1 Plan: - ok to start tube feeds via G-tube - d/w Dr. Angie Guan
[2018-05-18] MEDS: levETIRAcetam 1,000 MG in Sodium Chloride 0.9% 100 ML IVPB SCH ×2 (00:18→11:45)
[2018-05-18] MEDS: (Novolog) Insulin Aspart, Recombinant 100 u/ml 10 ml vial SC SCH ×4 (00:35→19:48)
[2018-05-18] MEDS: Albuterol-Ipratrop 3 mg / 0.5 (3 ml) UD INH SCH ×6 (01:57→20:19)
[2018-05-18] MEDS: Acetylcysteine 20% Inhal Soln (4ml) INH SCH ×6 (01:58→20:17)
[2018-05-18 07:01] LABS: BASO # 0.1 K/uL (0.0-0.2); BASO % 0.9 % (0.0-2.0); EOS # 0.1 K/uL (0.0-0.7); HEMOGLOBIN 9.2 g/dL (11.0-16.0); LYMPH # 1.6 K/uL (1.0-4.3); LYMPH % 12.1 % (20.0-40.0); MEAN CELL VOLUME 81.2 fL (81.0-99.0); MEAN CORPUSCULAR HEMOGLOBIN 26.6 pg (27.0-31.0); MEAN CORPUSCULAR HGB CONC 32.7 g/dL (33.0-37.0); MEAN PLATELET VOLUME 11.4 fL (7.2-11.7); MONO # 1.2 K/uL (0.0-0.8); MONO % 9.4 % (0.0-10.0); NEUT # 9.9 K/uL (1.8-7.0); NEUT % 76.6 % (50.0-75.0); RBC 3.46 Mil/uL (3.80-5.20); RED CELL DISTRIBUTION WIDTH 16.1 % (11.5-14.5); WHITE BLOOD COUNT 12.9 K/uL (4.8-10.8)
--- NOTE | 2018-05-18 07:42 | CP.PCM.PN ---
<Channing Tate - Last Filed: 05/19/18 09:12> Subjective - Date & Time of Evaluation Date of Evaluation: 05/18/18 Time of Evaluation: 07:41 - Subjective Subjective: Channing Tate PGY1 Progress Note for Dr. Sheikh Pt was examined at bedside this morning. She moves sporadically and responds to painful stimuli but is non verbal at this time. She can open her eyes. PT's sister is at bedside, reports pt was calm through the night and did not get agitated this morning when waking up. Objective - Vital Signs/Intake and Output Vital Signs (last 24 hours): Temp Pulse Resp BP Pulse Ox 102.7 F H 98 H 20 124/64 100 05/17/18 22:19 05/18/18 00:00 05/18/18 00:00 05/18/18 00:00 05/18/18 00:00 Intake and Output: 05/18/18 05/18/18 06:59 18:59 Intake Total 2040 Output Total 200 Balance 1840 - Medications Medications: Current Medications Acetaminophen (Tylenol 650 Mg Supp) 650 mg KS Q6 PRN PRN Reason: Fever >100.4 F Last Admin: 05/17/18 22:15 Dose: 650 mg Acetylcysteine (Acetylcysteine 20%) 4 ml INH RQ4 [facility] Last Admin: 05/18/18 03:24 Dose: 4 ml Albuterol/Ipratropium (Duoneb 3 Mg/0.5 Mg (3 Ml) Ud) 3 ml INH RQ4 [facility] Last Admin: 05/18/18 01:57 Dose: Not Given Amlodipine Besylate (Norvasc) 10 mg PO DAILY [facility] Last Admin: 05/16/18 10:31 Dose: Not Given Aspirin (Aspirin Chewable) 81 mg PO DAILY [facility] Bisacodyl (Dulcolax) 10 mg KS TID PRN PRN Reason: Constipation Last Admin: 05/10/18 09:45 Dose: 10 mg Clopidogrel Bisulfate (Plavix) 75 mg PO DAILY [facility] Last Admin: 05/16/18 10:32 Dose: Not Given Dextrose (Dextrose 50% Inj) 0 ml IV STAT PRN; Protocol PRN Reason: Hypoglycemia Protocol Dextrose (Glutose 15) 15 gm PO ONCE PRN; Protocol PRN Reason: Hypoglycemia Protocol Famotidine (Pepcid) 20 mg IVP Q12 [facility] Last Admin: 05/17/18 21:43 Dose: 20 mg Fluconazole (Diflucan) 100 mg GT DAILY [facility]; Protocol Glucagon (Glucagen Diagnostic Kit) 1 mg IM STAT PRN; Protocol PRN Reason: Hypoglycemia Protocol Heparin Sodium (Porcine) (Heparin) 5,000 units SC Q8 [facility] Last Admin: 05/18/18 06:50 Dose: 5,000 units Levetiracetam 1,000 mg/ Sodium (Chloride) 110 mls @ 420 mls/hr IVPB Q12H [facility] Last Admin: 05/18/18 00:18 Dose: 420 mls/hr Dextrose (Dextrose 5% In Water 1000 Ml) 1,000 mls @ 0 mls/hr IV .Q0M PRN; Protocol PRN Reason: Hypoglycemia Protocol Ibuprofen (Motrin Oral Susp) 200 mg PO Q6H PRN PRN Reason: Fever >100.4 F Last Admin: 05/15/18 07:01 Dose: 200 mg Insulin Aspart (Novolog) 0 unit SC Q6 [facility]; Protocol Last Admin: 05/18/18 06:49 Dose: 6 units Insulin Glargine (Lantus) 10 unit SC [facility] Labetalol HCl (Trandate) 10 mg IVP Q4H PRN PRN Reason: Systolic Blood Pressure Last Admin: 05/16/18 11:45 Dose: 10 mg Lactobacillus Acidophilus (Bacid Acidophilus) 1 cap PO BID [facility] Last Admin: 05/17/18 19:00 Dose: 1 cap Lactulose (Enulose) 20 gm PO DAILY PRN PRN Reason: Constipation Last Admin: 05/10/18 09:45 Dose: 20 gm Lorazepam (Ativan) 1 mg IVP Q4 PRN PRN Reason: Restlessness Last Admin: 05/17/18 06:29 Dose: 1 mg Metoprolol Tartrate (Lopressor) 75 mg PO BID [facility] Last Admin: 05/16/18 10:31 Dose: Not Given Morphine Sulfate (Morphine) 2 mg IVP Q4 PRN PRN Reason: Pain, moderate (4-7) Last Admin: 05/12/18 10:15 Dose: 2 mg Rosuvastatin Calcium (Crestor) 5 mg PO [facility] Last Admin: 05/15/18 21:45 Dose: 5 mg Senna/Docusate Sodium (Senokot S 50 Mg-8.6 Mg) 1 tab PO BID [facility] Last Admin: 05/16/18 10:00 Dose: Not Given Vitamin A (Vitamin A & D Oint Ud Foilpak) 1 ea TOP BID PRN PRN Reason: Dry skin Last Admin: 05/16/18 10:14 Dose: 1 ea - Labs Labs: 05/18/18 06:53 05/17/18 06:46 PT 14.7 SECONDS (9.7-12.2) H 05/16/18 11:28 INR 1.3 05/16/18 11:28 APTT 35 SECONDS (21-34) H 05/16/18 11:28 - Additional Findings Additional findings: - Constitutional Appears: No Acute Distress, Chronically Ill - Head Exam Head Exam: ATRAUMATIC, NORMOCEPHALIC - Eye Exam Eye Exam: EOMI, Normal appearance - ENT Exam ENT Exam: Mucous Membranes Moist - Neck Exam Additional comments: trache site clean, dry, intact - Respiratory Exam Respiratory Exam: Clear to Ausculation Bilateral, NORMAL BREATHING PATTERN. absent: Rales, Rhonchi, Wheezes - Cardiovascular Exam Cardiovascular Exam: REGULAR RHYTHM, +S1, +S2. absent: Gallop, Rubs, Murmur - GI/Abdominal Exam GI & Abdominal Exam: Soft, Normal Bowel Sounds. absent: Distended, Tenderness - Extremities Exam Extremities Exam: Pedal Edema - Neurological Exam Neurological Exam: Awake. absent: Oriented x3 - Skin Skin Exam: Normal Color Assessment and Plan - Assessment and Plan (Free Text) Plan: Respiratory Failure - Due to Asphyxiation/Possible Suicide Attempt - Intubated, on vent @FiO2 40 - s/p tracheotomy - s/p G tube repositioning 05/16 - pending transfer to LTAC Leukocytosis - Tmax today 102.1 6am - rpt CXR: no active disease - f/u rpt BCX and UCx - UA: leuk est 3+, +WBC, +RBC, nitrate - - BCx 05/02/18: negative - UCx 05/06/18: negative - Tracheal Aspirate Cx 05/08/18: yeast - colindres changed today - cooling blanket - ice packs PRN fever - Flagyl 500 mg IV Q8H - Meropenem 500 mg IV Q8H Anoxic Brain Injury - rpt EEG completed: f/u report - EEG 05/04: diffuse encephalopathy with burst suppression. - Repeat CT head: no bleeding - MRI Brain: subacute favored over acute cerebral hypoxic insult with minimal involvement of the lower haris and the cerebellar hemispheres - keppra 1,000 mg IV Q12H - Ativan 1mg q4h PRN - Neurology consulted, Dr. Duff/Guilherme NSTEMI - Elevated troponin - ASA 81 mg PO daily - Crestor 5 mg PO daily - Cardiology consulted, Dr Gay Transaminitis - Likely shock liver - Follow LFTs DM - Lantus 10 Units SC - Aspart ISS Q6H ARF - Likely Secondary to ATN with Hypernatremia - BUN/Cr have improved - Nephrology consulted, Dr. Samuels HTN - Metoprolol Tartrate 75 mg PO BID - Norvasc 5 mg PO 1x/day - Labetalol 10 mg IV Q4H PRN SBP > 140 PPx Heparin 5,000 Units SC Q8H Protonix 40 mg GT Feeding resumed today Aspiration precautions Seizure precautions suction PRN Turn and reposition q2h PT/OT Case discussed and plan with Dr. Sheikh <Yann Sheikh - Last Filed: 05/19/18 14:52> Objective - Vital Signs/Intake and Output Vital Signs (last 24 hours): Temp Pulse Resp BP Pulse Ox 101.0 F H 81 18 119/66 100 05/19/18 09:44 05/19/18 09:44 05/19/18 09:44 05/19/18 09:49 05/19/18 09:44 Intake and Output: 05/19/18 05/19/18 06:59 18:59 Intake Total 1420 800 Output Total 900 900 Balance 520 -100 - Medications Medications: Current Medications Acetaminophen (Tylenol 650 Mg Supp) 650 mg KS Q6 PRN PRN Reason: Fever >100.4 F Last Admin: 05/17/18 22:15 Dose: 650 mg Acetylcysteine (Acetylcysteine 20%) 4 ml INH RQ4 [facility] Last Admin: 05/19/18 12:52 Dose: 4 ml Albuterol/Ipratropium (Duoneb 3 Mg/0.5 Mg (3 Ml) Ud) 3 ml INH RQ4 [facility] Last Admin: 05/19/18 12:52 Dose: 3 ml Amlodipine Besylate (Norvasc) 10 mg PO DAILY [facility] Last Admin: 05/19/18 09:51 Dose: 10 mg Aspirin (Aspirin Chewable) 81 mg PO DAILY [facility] Last Admin: 05/19/18 09:47 Dose: 81 mg Bisacodyl (Dulcolax) 10 mg KS TID PRN PRN Reason: Constipation Last Admin: 05/10/18 09:45 Dose: 10 mg Clopidogrel Bisulfate (Plavix) 75 mg PO DAILY [facility] Last Admin: 05/19/18 09:52 Dose: 75 mg Dextrose (Dextrose 50% Inj) 0 ml IV STAT PRN; Protocol PRN Reason: Hypoglycemia Protocol Dextrose (Glutose 15) 15 gm PO ONCE PRN; Protocol PRN Reason: Hypoglycemia Protocol Famotidine (Pepcid) 20 mg IVP Q12 [facility] Last Admin: 05/19/18 09:51 Dose: 20 mg Fluconazole (Diflucan) 100 mg GT DAILY [facility]; Protocol Last Admin: 05/19/18 09:48 Dose: 100 mg Glucagon (Glucagen Diagnostic Kit) 1 mg IM STAT PRN; Protocol PRN Reason: Hypoglycemia Protocol Heparin Sodium (Porcine) (Heparin) 5,000 units SC Q8 [facility] Last Admin: 05/19/18 14:42 Dose: 5,000 units Levetiracetam 1,000 mg/ Sodium (Chloride) 110 mls @ 420 mls/hr IVPB Q12H [facility] Last Admin: 05/19/18 10:29 Dose: 420 mls/hr Dextrose (Dextrose 5% In Water 1000 Ml) 1,000 mls @ 0 mls/hr IV .Q0M PRN; Protocol PRN Reason: Hypoglycemia Protocol Metronidazole (Flagyl) 500 mg in 100 mls @ 100 mls/hr IVPB Q8H [facility]; Protocol Last Admin: 05/19/18 12:26 Dose: 100 mls/hr Meropenem 1 gm/ Sodium (Chloride) 100 mls @ 200 mls/hr IVPB Q8H [facility]; Protocol Last Admin: 05/19/18 11:19 Dose: 200 mls/hr Dextrose (Dextrose 5% In Water 1000 Ml) 1,000 mls @ 75 mls/hr IV .[id number] [facility] Last Admin: 05/19/18 12:23 Dose: 75 mls/hr Ibuprofen (Motrin Oral Susp) 200 mg PO Q6H PRN PRN Reason: Fever >100.4 F Last Admin: 05/19/18 09:52 Dose: 200 mg Insulin Aspart (Novolog) 0 unit SC Q6 [facility]; Protocol Last Admin: 05/19/18 13:46 Dose: 6 units Insulin Glargine (Lantus) 15 unit SC [facility] Last Admin: 05/18/18 21:39 Dose: 15 units Labetalol HCl (Trandate) 10 mg IVP Q4H PRN PRN Reason: Systolic Blood Pressure Last Admin: 05/16/18 11:45 Dose: 10 mg Lactobacillus Acidophilus (Bacid Acidophilus) 1 cap PO BID [facility] Last Admin: 05/19/18 09:47 Dose: 1 cap Lactulose (Enulose) 20 gm PO DAILY PRN PRN Reason: Constipation Last Admin: 05/10/18 09:45 Dose: 20 gm Lorazepam (Ativan) 1 mg IVP Q4 PRN PRN Reason: Restlessness Last Admin: 05/19/18 14:37 Dose: 1 mg Metoprolol Tartrate (Lopressor) 75 mg PO BID [facility] Last Admin: 05/19/18 09:49 Dose: 75 mg Morphine Sulfate (Morphine) 2 mg IVP Q4 PRN PRN Reason: Pain, moderate (4-7) Last Admin: 05/12/18 10:15 Dose: 2 mg Rosuvastatin Calcium (Crestor) 5 mg PO [facility] Last Admin: 05/18/18 21:39 Dose: 5 mg Senna/Docusate Sodium (Senokot S 50 Mg-8.6 Mg) 1 tab PO BID [facility] Last Admin: 05/19/18 09:52 Dose: 1 tab Vitamin A (Vitamin A & D Oint Ud Foilpak) 1 ea TOP BID PRN PRN Reason: Dry skin Last Admin: 05/19/18 09:55 Dose: 1 ea - Labs Labs: 05/19/18 07:11 05/19/18 07:11 PT 14.7 SECONDS (9.7-12.2) H 05/16/18 11:28 INR 1.3 05/16/18 11:28 APTT 35 SECONDS (21-34) H 05/16/18 11:28 Attending/Attestation - Attestation I have personally seen and examined this patient.: Yes I have fully participated in the care of the patient.: Yes I have reviewed all pertinent clinical information, including history, physical exam and plan: Yes Notes (Text): 05/19/18 14:50 Medical attending : Patient was seen and examined by me with the medical res ident. I reviewed the above note by medical support assistant the above. At this moment were still waiting on the results of the lower extremity and upper extremity Dopplers to check for potential DVTs. As mentioned previously patient has recently been having a serious a very elevated temperatures. She's had multiple negative cultures of the blood, chest x-rays were negative and she remains on very strong IV antibiotics at this moment Yesterday family members were present at bedside in the had questions with regards to prognosis. We explained to them that unfortunately was suspected patient has had very severe anoxic brain injury. At this moment the explained to us that they still have hopes that the patient will have a full recovery. We were very clear with them that the overall prognosis is poor. Yann Sheikh
[2018-05-18 08:03] LABS: CK-MB 0.3 ng/mL (0.0-3.38); TROPONIN I 0.061 ng/mL (0.00-0.120)
[2018-05-18 08:04] LABS: ALB/GLOB RATIO 0.8 (1.0-2.1); ALBUMIN 2.5 g/dL (3.5-5.0); CALCIUM 7.6 mg/dl (8.6-10.4)
[2018-05-18] MEDS: Lactobacillus Acidophilus 500 MU Cap PO SCH ×2 (09:29→17:43)
[2018-05-18] MEDS: Vitamins A & D Oint UD Foilpak TOP PRN (10:40)
[2018-05-18] MEDS: Meropenem 1 GM in Sodium Chloride 0.9% 100 ML IVPB SCH ×2 (12:25→19:50)
[2018-05-18] MEDS: metroNIDAZOLE IV 500 mg/100 ml 500 MG/100 ML BAG IVPB SCH ×2 (13:34→19:53)
--- NOTE | 2018-05-18 15:07 | PCM.EEG ---
Electroencephalogram Report - Electroencephalogram Report Procedure Date: 05/03/18 Medication: ASA, Plavix, Insulin, Keppra Interpretation: Technical Information: This was a 16-channel EEG, 1-channel EKG routine EEG performed using [employer] equipment. Electrodes were applied using the 10/20 international placement system. Study start; Study end; 40 Total time; 22 min. Clinical Information: 52 y/o woman with diffuse encephalopahty, and possible ischemic brain injury. EEG Details During the entire study was not discernible awake EEG architecture, the tracing showed marked diffuse bilateral attenuation with frequencies in the 4 to 5 Hz., there was no reactivity of the EEG. The were ongoing bursts of high amplitude mainly left sided sharp activity with periods of interburst attenuation, this was mainly seen on the left side.(Burst suppression pattern) Drowsiness not seen, sleep not seen. Hyperventilation was not performed. Photic stimulation was not performed. Interictal activity; none Focal abnormality; none Impression: This is an abnormal EEG record that demonstrate the presence of severe non specific diffuse disturbance of cortical activity, this is keeping with a diffuse box matter dysfunction, these findings are not specific. No seizures. Patient is not in status epilepticus.
[2018-05-18] MEDS: Docusate-Senna 50 mg-8.6 mg Tab PO SCH (17:42)
[2018-05-18] MEDS: (Lantus) Insulin Glargine, Recombinant SC SCH (21:39)
[2018-05-18] MEDS ORDERED: (Lantus) Insulin Glargine, Recombinant SC SCH (22:00)
[2018-05-19] MEDS: levETIRAcetam 1,000 MG in Sodium Chloride 0.9% 100 ML IVPB SCH ×3 (00:05→23:55)
[2018-05-19] MEDS: Albuterol-Ipratrop 3 mg / 0.5 (3 ml) UD INH SCH ×7 (00:06→23:56)
[2018-05-19] MEDS: Acetylcysteine 20% Inhal Soln (4ml) INH SCH ×7 (00:06→23:56)
[2018-05-19] MEDS: Meropenem 1 GM in Sodium Chloride 0.9% 100 ML IVPB SCH ×3 (02:27→21:10)
[2018-05-19] MEDS: metroNIDAZOLE IV 500 mg/100 ml 500 MG/100 ML BAG IVPB SCH ×3 (04:00→20:30)
[2018-05-19] MEDS: (Novolog) Insulin Aspart, Recombinant 100 u/ml 10 ml vial SC SCH ×4 (06:32→18:28)
[2018-05-19 07:20] LABS: BASO # 0.1 K/uL (0.0-0.2); BASO % 0.6 % (0.0-2.0); EOS # 0.2 K/uL (0.0-0.7); EOS % 2.1 % (0.0-4.0); HEMOGLOBIN 8.6 g/dL (11.0-16.0); LYMPH # 2.1 K/uL (1.0-4.3); LYMPH % 19.3 % (20.0-40.0); MEAN CELL VOLUME 81.1 fL (81.0-99.0); MEAN CORPUSCULAR HEMOGLOBIN 27.2 pg (27.0-31.0); MEAN CORPUSCULAR HGB CONC 33.6 g/dL (33.0-37.0); MEAN PLATELET VOLUME 11.4 fL (7.2-11.7); MONO # 0.9 K/uL (0.0-0.8); MONO % 8.3 % (0.0-10.0); NEUT # 7.4 K/uL (1.8-7.0); NEUT % 69.7 % (50.0-75.0); RBC 3.17 Mil/uL (3.80-5.20); RED CELL DISTRIBUTION WIDTH 16.2 % (11.5-14.5); WHITE BLOOD COUNT 10.6 K/uL (4.8-10.8)
[2018-05-19 08:00] LABS: ALB/GLOB RATIO 0.7 (1.0-2.1); ALBUMIN 2.3 g/dL (3.5-5.0); ALT/SGPT 47 U/L (9-52); AST/SGOT 81 U/L (14-36); BLOOD UREA NITROGEN 20 mg/dL (7-17); CALCIUM 7.4 mg/dl (8.6-10.4); GFR NON-AFRICAN AMERICAN 52
[2018-05-19] MEDS: Lactobacillus Acidophilus 500 MU Cap PO SCH ×2 (09:47→17:25)
[2018-05-19] MEDS: Docusate-Senna 50 mg-8.6 mg Tab PO SCH ×2 (09:52→18:00)
[2018-05-19] MEDS: Vitamins A & D Oint UD Foilpak TOP PRN (09:55)
--- NOTE | 2018-05-19 13:27 | CP.PCM.PN ---
<Channing Tate - Last Filed: 05/19/18 15:44> Subjective - Date & Time of Evaluation Date of Evaluation: 05/19/18 Time of Evaluation: 09:00 - Subjective Subjective: Channing Tate PGY1 Progress Note for Dr. Sheikh Pt was examined at bedside this morning. She is not responsive to painful stimuli this morning. Sister was at bedside, reports calm activity throughout the night. ROS was not obtainable at this time. Objective - Vital Signs/Intake and Output Vital Signs (last 24 hours): Temp Pulse Resp BP Pulse Ox 101.0 F H 81 18 119/66 100 05/19/18 09:44 05/19/18 09:44 05/19/18 09:44 05/19/18 09:49 05/19/18 09:44 Intake and Output: 05/19/18 05/19/18 06:59 18:59 Intake Total 1420 800 Output Total 900 900 Balance 520 -100 - Medications Medications: Current Medications Acetaminophen (Tylenol 650 Mg Supp) 650 mg [place] Q6 PRN PRN Reason: Fever >100.4 F Last Admin: 05/17/18 22:15 Dose: 650 mg Acetylcysteine (Acetylcysteine 20%) 4 ml INH RQ4 [facility] Last Admin: 05/19/18 12:52 Dose: 4 ml Albuterol/Ipratropium (Duoneb 3 Mg/0.5 Mg (3 Ml) Ud) 3 ml INH RQ4 [facility] Last Admin: 05/19/18 12:52 Dose: 3 ml Amlodipine Besylate (Norvasc) 10 mg PO DAILY [facility] Last Admin: 05/19/18 09:51 Dose: 10 mg Aspirin (Aspirin Chewable) 81 mg PO DAILY [facility] Last Admin: 05/19/18 09:47 Dose: 81 mg Bisacodyl (Dulcolax) 10 mg IL TID PRN PRN Reason: Constipation Last Admin: 05/10/18 09:45 Dose: 10 mg Clopidogrel Bisulfate (Plavix) 75 mg PO DAILY [facility] Last Admin: 05/19/18 09:52 Dose: 75 mg Dextrose (Dextrose 50% Inj) 0 ml IV STAT PRN; Protocol PRN Reason: Hypoglycemia Protocol Dextrose (Glutose 15) 15 gm PO ONCE PRN; Protocol PRN Reason: Hypoglycemia Protocol Famotidine (Pepcid) 20 mg IVP Q12 [facility] Last Admin: 05/19/18 09:51 Dose: 20 mg Fluconazole (Diflucan) 100 mg GT DAILY [facility]; Protocol Last Admin: 05/19/18 09:48 Dose: 100 mg Glucagon (Glucagen Diagnostic Kit) 1 mg IM STAT PRN; Protocol PRN Reason: Hypoglycemia Protocol Heparin Sodium (Porcine) (Heparin) 5,000 units SC Q8 [facility] Last Admin: 05/19/18 05:44 Dose: 5,000 units Levetiracetam 1,000 mg/ Sodium (Chloride) 110 mls @ 420 mls/hr IVPB Q12H [facility] Last Admin: 05/19/18 10:29 Dose: 420 mls/hr Dextrose (Dextrose 5% In Water 1000 Ml) 1,000 mls @ 0 mls/hr IV .Q0M PRN; Protocol PRN Reason: Hypoglycemia Protocol Metronidazole (Flagyl) 500 mg in 100 mls @ 100 mls/hr IVPB Q8H [facility]; Protocol Last Admin: 05/19/18 12:26 Dose: 100 mls/hr Meropenem 1 gm/ Sodium (Chloride) 100 mls @ 200 mls/hr IVPB Q8H [facility]; Protocol Last Admin: 05/19/18 11:19 Dose: 200 mls/hr Dextrose (Dextrose 5% In Water 1000 Ml) 1,000 mls @ 75 mls/hr IV .[id number] [facility] Last Admin: 05/19/18 12:23 Dose: 75 mls/hr Ibuprofen (Motrin Oral Susp) 200 mg PO Q6H PRN PRN Reason: Fever >100.4 F Last Admin: 05/19/18 09:52 Dose: 200 mg Insulin Aspart (Novolog) 0 unit SC Q6 [facility]; Protocol Last Admin: 05/19/18 06:32 Dose: 4 units Insulin Glargine (Lantus) 15 unit SC HS [facility] Last Admin: 05/18/18 21:39 Dose: 15 units Labetalol HCl (Trandate) 10 mg IVP Q4H PRN PRN Reason: Systolic Blood Pressure Last Admin: 05/16/18 11:45 Dose: 10 mg Lactobacillus Acidophilus (Bacid Acidophilus) 1 cap PO BID [facility] Last Admin: 05/19/18 09:47 Dose: 1 cap Lactulose (Enulose) 20 gm PO DAILY PRN PRN Reason: Constipation Last Admin: 05/10/18 09:45 Dose: 20 gm Lorazepam (Ativan) 1 mg IVP Q4 PRN PRN Reason: Restlessness Last Admin: 05/17/18 06:29 Dose: 1 mg Metoprolol Tartrate (Lopressor) 75 mg PO BID [facility] Last Admin: 05/19/18 09:49 Dose: 75 mg Morphine Sulfate (Morphine) 2 mg IVP Q4 PRN PRN Reason: Pain, moderate (4-7) Last Admin: 05/12/18 10:15 Dose: 2 mg Rosuvastatin Calcium (Crestor) 5 mg PO HS [facility] Last Admin: 05/18/18 21:39 Dose: 5 mg Senna/Docusate Sodium (Senokot S 50 Mg-8.6 Mg) 1 tab PO BID [facility] Last Admin: 05/19/18 09:52 Dose: 1 tab Vitamin A (Vitamin A & D Oint Ud Foilpak) 1 ea TOP BID PRN PRN Reason: Dry skin Last Admin: 05/19/18 09:55 Dose: 1 ea - Labs Labs: 05/19/18 07:11 05/19/18 07:11 PT 14.7 SECONDS (9.7-12.2) H 05/16/18 11:28 INR 1.3 05/16/18 11:28 APTT 35 SECONDS (21-34) H 05/16/18 11:28 - Additional Findings Additional findings: - Constitutional Appears: No Acute Distress, Chronically Ill - Head Exam Head Exam: ATRAUMATIC, NORMOCEPHALIC - Eye Exam Eye Exam: EOMI, Normal appearance - ENT Exam ENT Exam: Mucous Membranes Moist - Neck Exam Additional comments: trache site clean, dry, intact - Respiratory Exam Respiratory Exam: Clear to Ausculation Bilateral, NORMAL BREATHING PATTERN. absent: Rales, Rhonchi, Wheezes - Cardiovascular Exam Cardiovascular Exam: REGULAR RHYTHM, +S1, +S2. absent: Gallop, Rubs, Murmur - GI/Abdominal Exam GI & Abdominal Exam: Soft, Normal Bowel Sounds. absent: Distended, Tenderness - Extremities Exam Extremities Exam: Pedal Edema - Neurological Exam Neurological Exam: Awake. absent: Oriented x3 - Skin Skin Exam: Normal Color Assessment and Plan - Assessment and Plan (Free Text) Plan: Respiratory Failure - Due to Asphyxiation/Possible Suicide Attempt - Intubated, on vent @FiO2 40 - s/p tracheotomy - s/p G tube repositioning 05/16 - pending transfer to LTAC Leukocytosis - T 101F - rpt CXR: no active disease - rpt BCx: neg - rpt UCx: yeast - UA: leuk est 3+, +WBC, +RBC, nitrate - - BCx 05/02/18: negative - UCx 05/06/18: negative - Tracheal Aspirate Cx 05/08/18: yeast - colindres changed - cooling blanket - ice packs PRN fever - f/u b/l upper and lower ext Doppler - Flagyl 500 mg IV Q8H - Meropenem 500 mg IV Q8H Anoxic Brain Injury - rpt EEG completed: severe non specific diffuse distrubances in cortical activity, brown matter dysfunction - EEG 05/04: diffuse encephalopathy with burst suppression. - Repeat CT head: no bleeding - MRI Brain: subacute favored over acute cerebral hypoxic insult with minimal involvement of the lower haris and the cerebellar hemispheres - keppra 1,000 mg IV Q12H - Ativan 1mg q4h PRN - Neurology consulted, Dr. Duff/Guilherme NSTEMI - Elevated troponin - hold ASA 81 mg PO daily - hold Crestor 5 mg PO daily - Cardiology consulted, Dr Gay Hyponatremia - Na 150 - D5W - d/c LR - 500ml free water flushes q6h Transaminitis - Likely shock liver - Follow LFTs DM - Lantus 10 Units SC - Aspart ISS Q6H ARF - Likely Secondary to ATN with Hypernatremia - BUN/Cr have improved - Nephrology consulted, Dr. Samuels HTN - hold metoprolol Tartrate 75 mg PO BID - hold Norvasc 5 mg PO 1x/day - Labetalol 10 mg IV Q4H PRN SBP > 140 PPx Heparin 5,000 Units SC Q8H Protonix 40 mg GT Feeding resumed today Aspiration precautions Seizure precautions suction PRN Turn and reposition q2h PT/OT Case discussed and plan with Dr. Sheikh <Yann Sheikh H - Last Filed: 05/19/18 16:33> Objective - Vital Signs/Intake and Output Vital Signs (last 24 hours): Temp Pulse Resp BP Pulse Ox 101.5 F H 85 20 155/65 H 99 05/19/18 16:10 05/19/18 16:10 05/19/18 16:10 05/19/18 16:10 05/19/18 16:10 Intake and Output: 05/19/18 05/19/18 06:59 18:59 Intake Total 1420 2100 Output Total 900 1875 Balance 520 225 - Medications Medications: Current Medications Acetaminophen (Tylenol 650 Mg Supp) 650 mg IL Q6 PRN PRN Reason: Fever >100.4 F Last Admin: 05/17/18 22:15 Dose: 650 mg Acetylcysteine (Acetylcysteine 20%) 4 ml INH RQ4 [facility] Last Admin: 05/19/18 16:07 Dose: 4 ml Albuterol/Ipratropium (Duoneb 3 Mg/0.5 Mg (3 Ml) Ud) 3 ml INH RQ4 [facility] Last Admin: 05/19/18 16:07 Dose: 3 ml Amlodipine Besylate (Norvasc) 10 mg PO DAILY [facility] Last Admin: 05/19/18 09:51 Dose: 10 mg Aspirin (Aspirin Chewable) 81 mg PO DAILY [facility] Last Admin: 05/19/18 09:47 Dose: 81 mg Bisacodyl (Dulcolax) 10 mg IL TID PRN PRN Reason: Constipation Last Admin: 05/10/18 09:45 Dose: 10 mg Clopidogrel Bisulfate (Plavix) 75 mg PO DAILY [facility] Last Admin: 05/19/18 09:52 Dose: 75 mg Dextrose (Dextrose 50% Inj) 0 ml IV STAT PRN; Protocol PRN Reason: Hypoglycemia Protocol Dextrose (Glutose 15) 15 gm PO ONCE PRN; Protocol PRN Reason: Hypoglycemia Protocol Famotidine (Pepcid) 20 mg IVP Q12 [facility] Last Admin: 05/19/18 09:51 Dose: 20 mg Fluconazole (Diflucan) 100 mg GT DAILY [facility]; Protocol Last Admin: 05/19/18 09:48 Dose: 100 mg Glucagon (Glucagen Diagnostic Kit) 1 mg IM STAT PRN; Protocol PRN Reason: Hypoglycemia Protocol Heparin Sodium (Porcine) (Heparin) 5,000 units SC Q8 [facility] Last Admin: 05/19/18 14:42 Dose: 5,000 units Levetiracetam 1,000 mg/ Sodium (Chloride) 110 mls @ 420 mls/hr IVPB Q12H [facility] Last Admin: 05/19/18 10:29 Dose: 420 mls/hr Dextrose (Dextrose 5% In Water 1000 Ml) 1,000 mls @ 0 mls/hr IV .Q0M PRN; Protocol PRN Reason: Hypoglycemia Protocol Metronidazole (Flagyl) 500 mg in 100 mls @ 100 mls/hr IVPB Q8H [facility]; Protocol Last Admin: 05/19/18 12:26 Dose: 100 mls/hr Meropenem 1 gm/ Sodium (Chloride) 100 mls @ 200 mls/hr IVPB Q8H [facility]; Protocol Last Admin: 05/19/18 11:19 Dose: 200 mls/hr Dextrose (Dextrose 5% In Water 1000 Ml) 1,000 mls @ 75 mls/hr IV .[id number] [facility] Last Admin: 05/19/18 12:23 Dose: 75 mls/hr Ibuprofen (Motrin Oral Susp) 200 mg PO Q6H PRN PRN Reason: Fever >100.4 F Last Admin: 05/19/18 09:52 Dose: 200 mg Insulin Aspart (Novolog) 0 unit SC Q6 [facility]; Protocol Last Admin: 05/19/18 13:46 Dose: 6 units Insulin Glargine (Lantus) 15 unit SC [facility] Last Admin: 05/18/18 21:39 Dose: 15 units Labetalol HCl (Trandate) 10 mg IVP Q4H PRN PRN Reason: Systolic Blood Pressure Last Admin: 05/16/18 11:45 Dose: 10 mg Lactobacillus Acidophilus (Bacid Acidophilus) 1 cap PO BID [facility] Last Admin: 05/19/18 09:47 Dose: 1 cap Lactulose (Enulose) 20 gm PO DAILY PRN PRN Reason: Constipation Last Admin: 05/10/18 09:45 Dose: 20 gm Lorazepam (Ativan) 1 mg IVP Q4 PRN PRN Reason: Restlessness Last Admin: 05/19/18 14:37 Dose: 1 mg Metoprolol Tartrate (Lopressor) 75 mg PO BID [facility] Last Admin: 05/19/18 09:49 Dose: 75 mg Morphine Sulfate (Morphine) 2 mg IVP Q4 PRN PRN Reason: Pain, moderate (4-7) Last Admin: 05/12/18 10:15 Dose: 2 mg Rosuvastatin Calcium (Crestor) 5 mg PO [facility] Last Admin: 05/18/18 21:39 Dose: 5 mg Senna/Docusate Sodium (Senokot S 50 Mg-8.6 Mg) 1 tab PO BID [facility] Last Admin: 05/19/18 09:52 Dose: 1 tab Vitamin A (Vitamin A & D Oint Ud Foilpak) 1 ea TOP BID PRN PRN Reason: Dry skin Last Admin: 05/19/18 09:55 Dose: 1 ea - Labs Labs: 05/19/18 07:11 05/19/18 07:11 PT 14.7 SECONDS (9.7-12.2) H 05/16/18 11:28 INR 1.3 05/16/18 11:28 APTT 35 SECONDS (21-34) H 05/16/18 11:28 Attending/Attestation - Attestation I have personally seen and examined this patient.: Yes I have fully participated in the care of the patient.: Yes I have reviewed all pertinent clinical information, including history, physical exam and plan: Yes Notes (Text): 05/19/18 16:33 Medical attending : Patient was seen and examined by me with the medical insurance coder. I reviewed the above note by medical insurance coder the above. At this moment were still waiting on the results of the lower extremity and upper extremity Dopplers to check for potential DVTs. As mentioned previously patient has recently been having a serious a very elevated temperatures. She's had multiple negative cultures of the blood, chest x-rays were negative and she remains on very strong IV antibiotics at this moment Yesterday family members were present at bedside in the had questions with regards to prognosis. We explained to them that unfortunately was suspected patient has had very severe anoxic brain injury. At this moment the explained to us that they still have hopes that the patient will have a full recovery. We were very clear with them that the overall prognosis is poor. Yann Shiekh
[2018-05-19] MEDS: (Lantus) Insulin Glargine, Recombinant SC SCH (21:51)
[2018-05-20] MEDS: (Novolog) Insulin Aspart, Recombinant 100 u/ml 10 ml vial SC SCH ×4 (00:36→19:00)
[2018-05-20] MEDS: Meropenem 1 GM in Sodium Chloride 0.9% 100 ML IVPB SCH ×3 (02:34→19:26)
[2018-05-20] MEDS: Acetylcysteine 20% Inhal Soln (4ml) INH SCH ×5 (03:27→19:52)
[2018-05-20] MEDS: Albuterol-Ipratrop 3 mg / 0.5 (3 ml) UD INH SCH ×5 (03:27→19:52)
[2018-05-20] MEDS: metroNIDAZOLE IV 500 mg/100 ml 500 MG/100 ML BAG IVPB SCH ×3 (03:43→20:31)
[2018-05-20] MEDS: Vitamins A & D Oint UD Foilpak TOP PRN (06:50)
[2018-05-20 07:41] LABS: BASO # 0.1 K/uL (0.0-0.2); BASO % 0.7 % (0.0-2.0); EOS # 0.3 K/uL (0.0-0.7); EOS % 3.3 % (0.0-4.0); HEMOGLOBIN 8.7 g/dL (11.0-16.0); LYMPH # 2.2 K/uL (1.0-4.3); LYMPH % 21.7 % (20.0-40.0); MEAN CORPUSCULAR HEMOGLOBIN 26.9 pg (27.0-31.0); MEAN CORPUSCULAR HGB CONC 33.2 g/dL (33.0-37.0); MEAN PLATELET VOLUME 12.3 fL (7.2-11.7); MONO # 0.7 K/uL (0.0-0.8); MONO % 6.3 % (0.0-10.0); RBC 3.24 Mil/uL (3.80-5.20); RED CELL DISTRIBUTION WIDTH 16.6 % (11.5-14.5); WHITE BLOOD COUNT 10.3 K/uL (4.8-10.8)
[2018-05-20 08:30] LABS: ALB/GLOB RATIO 0.7 (1.0-2.1); ALBUMIN 2.4 g/dL (3.5-5.0); CALCIUM 7.6 mg/dl (8.6-10.4)
[2018-05-20] MEDS: Lactobacillus Acidophilus 500 MU Cap PO SCH ×2 (09:33→17:55)
[2018-05-20] MEDS: Docusate-Senna 50 mg-8.6 mg Tab PO SCH ×2 (09:33→18:00)
[2018-05-20] MEDS: levETIRAcetam 1,000 MG in Sodium Chloride 0.9% 100 ML IVPB SCH (11:09)
--- NOTE | 2018-05-20 15:04 | CP.PCM.PN ---
<Channing Tate - Last Filed: 05/20/18 15:00> Subjective - Date & Time of Evaluation Date of Evaluation: 05/20/18 Time of Evaluation: 09:00 - Subjective Subjective: Channing Tate PGY1 Progress Note for Dr. Sheikh Pt was examined at bedside this morning. She responded to touch on soles of feet, but not to sternal rub or painful stimuli. Pt had random movements. ROS was unattainable at this time. Objective - Vital Signs/Intake and Output Vital Signs (last 24 hours): Temp Pulse Resp BP Pulse Ox 100.9 F H 88 20 128/67 100 05/20/18 08:19 05/20/18 08:19 05/20/18 08:19 05/20/18 09:34 05/20/18 08:19 Intake and Output: 05/20/18 05/20/18 06:59 18:59 Intake Total 2284 Output Total 1050 1000 Balance 1234 -1000 - Medications Medications: Current Medications Acetaminophen (Tylenol 650 Mg Supp) 650 mg [place] Q6 PRN PRN Reason: Fever >100.4 F Last Admin: 05/20/18 02:35 Dose: 650 mg Acetylcysteine (Acetylcysteine 20%) 4 ml INH RQ4 [facility] Last Admin: 05/20/18 11:27 Dose: 4 ml Albuterol/Ipratropium (Duoneb 3 Mg/0.5 Mg (3 Ml) Ud) 3 ml INH RQ4 [facility] Last Admin: 05/20/18 11:27 Dose: 3 ml Amlodipine Besylate (Norvasc) 10 mg PO DAILY [facility] Last Admin: 05/20/18 09:38 Dose: 10 mg Aspirin (Aspirin Chewable) 81 mg PO DAILY [facility] Last Admin: 05/20/18 09:35 Dose: 81 mg Bisacodyl (Dulcolax) 10 mg NJ TID PRN PRN Reason: Constipation Last Admin: 05/10/18 09:45 Dose: 10 mg Clopidogrel Bisulfate (Plavix) 75 mg PO DAILY [facility] Last Admin: 05/20/18 09:35 Dose: 75 mg Dextrose (Dextrose 50% Inj) 0 ml IV STAT PRN; Protocol PRN Reason: Hypoglycemia Protocol Dextrose (Glutose 15) 15 gm PO ONCE PRN; Protocol PRN Reason: Hypoglycemia Protocol Famotidine (Pepcid) 20 mg IVP Q12 [facility] Last Admin: 05/20/18 09:40 Dose: 20 mg Fluconazole (Diflucan) 100 mg GT DAILY [facility]; Protocol Last Admin: 05/20/18 09:33 Dose: 100 mg Glucagon (Glucagen Diagnostic Kit) 1 mg IM STAT PRN; Protocol PRN Reason: Hypoglycemia Protocol Heparin Sodium (Porcine) (Heparin) 5,000 units SC Q8 [facility] Last Admin: 05/20/18 14:23 Dose: 5,000 units Levetiracetam 1,000 mg/ Sodium (Chloride) 110 mls @ 420 mls/hr IVPB Q12H [facility] Last Admin: 05/20/18 11:09 Dose: 420 mls/hr Dextrose (Dextrose 5% In Water 1000 Ml) 1,000 mls @ 0 mls/hr IV .Q0M PRN; Protocol PRN Reason: Hypoglycemia Protocol Metronidazole (Flagyl) 500 mg in 100 mls @ 100 mls/hr IVPB Q8H [facility]; Protocol Last Admin: 05/20/18 12:58 Dose: 100 mls/hr Meropenem 1 gm/ Sodium (Chloride) 100 mls @ 200 mls/hr IVPB Q8H [facility]; Protocol Last Admin: 05/20/18 11:51 Dose: 200 mls/hr Dextrose (Dextrose 5% In Water 1000 Ml) 1,000 mls @ 75 mls/hr IV .[id number] [facility] Last Admin: 05/20/18 06:53 Dose: 75 mls/hr Ibuprofen (Motrin Oral Susp) 200 mg PO Q6H PRN PRN Reason: Fever >100.4 F Last Admin: 05/20/18 12:52 Dose: 200 mg Insulin Aspart (Novolog) 0 unit SC Q6 [facility]; Protocol Last Admin: 05/20/18 11:25 Dose: 8 units Insulin Glargine (Lantus) 15 unit SC HS [facility] Last Admin: 05/19/18 21:51 Dose: 15 units Labetalol HCl (Trandate) 10 mg IVP Q4H PRN PRN Reason: Systolic Blood Pressure Last Admin: 05/16/18 11:45 Dose: 10 mg Lactobacillus Acidophilus (Bacid Acidophilus) 1 cap PO BID [facility] Last Admin: 05/20/18 09:33 Dose: 1 cap Lactulose (Enulose) 20 gm PO DAILY PRN PRN Reason: Constipation Last Admin: 05/10/18 09:45 Dose: 20 gm Lorazepam (Ativan) 1 mg IVP Q4 PRN PRN Reason: Restlessness Last Admin: 05/19/18 14:37 Dose: 1 mg Metoprolol Tartrate (Lopressor) 75 mg PO BID [facility] Last Admin: 05/20/18 09:34 Dose: 75 mg Morphine Sulfate (Morphine) 2 mg IVP Q4 PRN PRN Reason: Pain, moderate (4-7) Last Admin: 05/12/18 10:15 Dose: 2 mg Rosuvastatin Calcium (Crestor) 5 mg PO HS [facility] Last Admin: 05/19/18 21:49 Dose: 5 mg Senna/Docusate Sodium (Senokot S 50 Mg-8.6 Mg) 1 tab PO BID [facility] Last Admin: 05/20/18 09:33 Dose: 1 tab Vitamin A (Vitamin A & D Oint Ud Foilpak) 1 ea TOP BID PRN PRN Reason: Dry skin Last Admin: 05/20/18 06:50 Dose: 1 ea - Labs Labs: 05/20/18 07:32 05/20/18 07:32 PT 14.7 SECONDS (9.7-12.2) H 05/16/18 11:28 INR 1.3 05/16/18 11:28 APTT 35 SECONDS (21-34) H 05/16/18 11:28 - Additional Findings Additional findings: - Constitutional Appears: No Acute Distress, Chronically Ill - Head Exam Head Exam: ATRAUMATIC, NORMOCEPHALIC - Eye Exam Eye Exam: EOMI, Normal appearance. Pupil contract to light on R, remain dilated on L to light. - ENT Exam ENT Exam: Mucous Membranes Moist - Neck Exam Additional comments: trache site clean, dry, intact - Respiratory Exam Respiratory Exam: Clear to Ausculation Bilateral, NORMAL BREATHING PATTERN. absent: Rales, Rhonchi, Wheezes - Cardiovascular Exam Cardiovascular Exam: REGULAR RHYTHM, +S1, +S2. absent: Gallop, Rubs, Murmur - GI/Abdominal Exam GI & Abdominal Exam: Soft, Normal Bowel Sounds. absent: Distended, Tenderness - Extremities Exam Extremities Exam: Pedal Edema - Neurological Exam Neurological Exam: Awake. absent: Oriented x3. Babisnki reflex downgoing b/l. - Skin Skin Exam: Normal Color Assessment and Plan - Assessment and Plan (Free Text) Plan: Respiratory Failure - Due to Asphyxiation/Possible Suicide Attempt - Intubated, on vent @FiO2 40 - s/p tracheotomy - s/p G tube repositioning 05/16 - pending transfer to LTAC Leukocytosis - Tmax 103.2F @ 2AM - rpt CXR: no active disease - rpt BCx: neg - rpt UCx: yeast - UA: leuk est 3+, +WBC, +RBC, nitrate - - BCx 05/02/18: negative - UCx 05/06/18: negative - Tracheal Aspirate Cx 05/08/18: yeast - colindres changed 05/17 - cooling blanket - ice packs PRN fever - f/u report b/l upper and lower ext Doppler - Flagyl 500 mg IV Q8H - Meropenem 500 mg IV Q8H Anoxic Brain Injury - rpt EEG completed: severe non specific diffuse distrubances in cortical activity, brown matter dysfunction - EEG 05/04: diffuse encephalopathy with burst suppression. - Repeat CT head: no bleeding - MRI Brain: subacute favored over acute cerebral hypoxic insult with minimal involvement of the lower haris and the cerebellar hemispheres - keppra 1,000 mg IV Q12H - Ativan 1mg q4h PRN - Neurology consulted, Dr. Duff/Guilherme NSTEMI - Elevated troponin - hold ASA 81 mg PO daily - hold Crestor 5 mg PO daily - Cardiology consulted, Dr Gay Transaminitis - Likely shock liver - Follow LFTs DM - Lantus 10 Units SC - Aspart ISS Q6H ARF - Likely Secondary to ATN with Hypernatremia - BUN/Cr have improved - Nephrology consulted, Dr. Samuels HTN - hold metoprolol Tartrate 75 mg PO BID - hold Norvasc 5 mg PO 1x/day - Labetalol 10 mg IV Q4H PRN SBP > 140 PPx Heparin 5,000 Units SC Q8H Protonix 40 mg GT Feeding resumed today Aspiration precautions Seizure precautions suction PRN Turn and reposition q2h PT/OT Case discussed and plan with Dr. Sheikh <Yann Sheikh - Last Filed: 05/20/18 18:42> Objective - Vital Signs/Intake and Output Vital Signs (last 24 hours): Temp Pulse Resp BP Pulse Ox 99.2 F 69 20 115/65 99 05/20/18 15:10 05/20/18 15:10 05/20/18 15:10 05/20/18 15:10 05/20/18 15:10 Intake and Output: 05/20/18 05/20/18 06:59 18:59 Intake Total 2284 1740 Output Total 1050 1999 Balance 1234 -260 - Medications Medications: Current Medications Acetaminophen (Tylenol 650 Mg Supp) 650 mg NJ Q6 PRN PRN Reason: Fever >100.4 F Last Admin: 05/20/18 02:35 Dose: 650 mg Acetylcysteine (Acetylcysteine 20%) 4 ml INH RQ4 [facility] Last Admin: 05/20/18 15:53 Dose: 4 ml Albuterol/Ipratropium (Duoneb 3 Mg/0.5 Mg (3 Ml) Ud) 3 ml INH RQ4 [facility] Last Admin: 05/20/18 15:53 Dose: 3 ml Amlodipine Besylate (Norvasc) 10 mg PO DAILY [facility] Last Admin: 05/20/18 09:38 Dose: 10 mg Aspirin (Aspirin Chewable) 81 mg PO DAILY [facility] Last Admin: 05/20/18 09:35 Dose: 81 mg Bisacodyl (Dulcolax) 10 mg NJ TID PRN PRN Reason: Constipation Last Admin: 05/10/18 09:45 Dose: 10 mg Clopidogrel Bisulfate (Plavix) 75 mg PO DAILY [facility] Last Admin: 05/20/18 09:35 Dose: 75 mg Dextrose (Dextrose 50% Inj) 0 ml IV STAT PRN; Protocol PRN Reason: Hypoglycemia Protocol Dextrose (Glutose 15) 15 gm PO ONCE PRN; Protocol PRN Reason: Hypoglycemia Protocol Famotidine (Pepcid) 20 mg IVP Q12 [facility] Last Admin: 05/20/18 09:40 Dose: 20 mg Fluconazole (Diflucan) 100 mg GT DAILY [facility]; Protocol Last Admin: 05/20/18 09:33 Dose: 100 mg Glucagon (Glucagen Diagnostic Kit) 1 mg IM STAT PRN; Protocol PRN Reason: Hypoglycemia Protocol Heparin Sodium (Porcine) (Heparin) 5,000 units SC Q8 [facility] Last Admin: 05/20/18 14:23 Dose: 5,000 units Levetiracetam 1,000 mg/ Sodium (Chloride) 110 mls @ 420 mls/hr IVPB Q12H [facility] Last Admin: 05/20/18 11:09 Dose: 420 mls/hr Dextrose (Dextrose 5% In Water 1000 Ml) 1,000 mls @ 0 mls/hr IV .Q0M PRN; Protocol PRN Reason: Hypoglycemia Protocol Metronidazole (Flagyl) 500 mg in 100 mls @ 100 mls/hr IVPB Q8H [facility]; Protocol Last Admin: 05/20/18 12:58 Dose: 100 mls/hr Meropenem 1 gm/ Sodium (Chloride) 100 mls @ 200 mls/hr IVPB Q8H [facility]; Protocol Last Admin: 05/20/18 11:51 Dose: 200 mls/hr Dextrose (Dextrose 5% In Water 1000 Ml) 1,000 mls @ 75 mls/hr IV .[id number] [facility] Last Admin: 05/20/18 06:53 Dose: 75 mls/hr Ibuprofen (Motrin Oral Susp) 200 mg PO Q6H PRN PRN Reason: Fever >100.4 F Last Admin: 05/20/18 12:52 Dose: 200 mg Insulin Aspart (Novolog) 0 unit SC Q6 [facility]; Protocol Last Admin: 05/20/18 11:25 Dose: 8 units Insulin Glargine (Lantus) 15 unit SC HS [facility] Last Admin: 05/19/18 21:51 Dose: 15 units Labetalol HCl (Trandate) 10 mg IVP Q4H PRN PRN Reason: Systolic Blood Pressure Last Admin: 05/16/18 11:45 Dose: 10 mg Lactobacillus Acidophilus (Bacid Acidophilus) 1 cap PO BID [facility] Last Admin: 05/20/18 17:55 Dose: 1 cap Lactulose (Enulose) 20 gm PO DAILY PRN PRN Reason: Constipation Last Admin: 05/10/18 09:45 Dose: 20 gm Lorazepam (Ativan) 1 mg IVP Q4 PRN PRN Reason: Restlessness Last Admin: 05/20/18 17:06 Dose: 1 mg Metoprolol Tartrate (Lopressor) 75 mg PO BID [facility] Last Admin: 05/20/18 09:34 Dose: 75 mg Morphine Sulfate (Morphine) 2 mg IVP Q4 PRN PRN Reason: Pain, moderate (4-7) Last Admin: 05/12/18 10:15 Dose: 2 mg Rosuvastatin Calcium (Crestor) 5 mg PO HS [facility] Last Admin: 05/19/18 21:49 Dose: 5 mg Senna/Docusate Sodium (Senokot S 50 Mg-8.6 Mg) 1 tab PO BID [facility] Last Admin: 05/20/18 09:33 Dose: 1 tab Vitamin A (Vitamin A & D Oint Ud Foilpak) 1 ea TOP BID PRN PRN Reason: Dry skin Last Admin: 05/20/18 06:50 Dose: 1 ea - Labs Labs: 05/20/18 07:32 05/20/18 07:32 PT 14.7 SECONDS (9.7-12.2) H 05/16/18 11:28 INR 1.3 05/16/18 11:28 APTT 35 SECONDS (21-34) H 05/16/18 11:28 Attending/Attestation - Attestation I have personally seen and examined this patient.: Yes I have fully participated in the care of the patient.: Yes I have reviewed all pertinent clinical information, including history, physical exam and plan: Yes Notes (Text): 05/20/18 18:40 Medical attending: Patient was seen and examined by me as well with the medical residents. I reviewed the above and agree with the above. There exam of the patient was not different from previous. Previous day I had a long discussion with family members at bedside and they were again present. Today I did not have a long conversation but I did shake their hand. Patient still has large fevers - we tried to order dopplers however they havent been done - likley it is difficult for them due to the patient being an isolation room as well as being on mechical ventilation At this time she remains on the IV abx. Yann Sheikh
[2018-05-20] MEDS: (Lantus) Insulin Glargine, Recombinant SC SCH (21:10)
[2018-05-21] MEDS: (Novolog) Insulin Aspart, Recombinant 100 u/ml 10 ml vial SC SCH ×4 (00:34→17:47)
[2018-05-21] MEDS: Acetylcysteine 20% Inhal Soln (4ml) INH SCH ×7 (00:45→23:58)
[2018-05-21] MEDS: Albuterol-Ipratrop 3 mg / 0.5 (3 ml) UD INH SCH ×7 (01:00→23:58)
[2018-05-21] MEDS: Meropenem 1 GM in Sodium Chloride 0.9% 100 ML IVPB SCH ×3 (04:00→18:50)
[2018-05-21] MEDS: metroNIDAZOLE IV 500 mg/100 ml 500 MG/100 ML BAG IVPB SCH ×3 (04:15→19:27)
[2018-05-21 06:28] LABS: BASO # 0.1 K/uL (0.0-0.2); BASO % 0.7 % (0.0-2.0); EOS # 0.3 K/uL (0.0-0.7); HEMOGLOBIN 8.3 g/dL (11.0-16.0); LYMPH # 1.9 K/uL (1.0-4.3); MEAN CELL VOLUME 81.2 fL (81.0-99.0); MEAN CORPUSCULAR HEMOGLOBIN 26.9 pg (27.0-31.0); MEAN CORPUSCULAR HGB CONC 33.1 g/dL (33.0-37.0); MEAN PLATELET VOLUME 12.2 fL (7.2-11.7); MONO # 0.6 K/uL (0.0-0.8); MONO % 5.5 % (0.0-10.0); NEUT # 7.5 K/uL (1.8-7.0); NEUT % 72.8 % (50.0-75.0); RBC 3.07 Mil/uL (3.80-5.20); WHITE BLOOD COUNT 10.3 K/uL (4.8-10.8)
[2018-05-21 06:42] LABS: ALB/GLOB RATIO 0.7 (1.0-2.1); ALBUMIN 2.4 g/dL (3.5-5.0); CALCIUM 7.4 mg/dl (8.6-10.4)
[2018-05-21] MEDS ORDERED: (Lantus) Insulin Glargine, Recombinant SC SCH ×2 (07:57→07:58)
[2018-05-21] MEDS: Lactobacillus Acidophilus 500 MU Cap PO SCH ×2 (10:31→17:46)
[2018-05-21] MEDS: Docusate-Senna 50 mg-8.6 mg Tab PO SCH ×2 (10:31→17:46)
--- NOTE | 2018-05-21 10:51 | RAD ---
Date of service: 2018-05-21 08:49:20 HISTORY: Fever COMPARISON: No prior. FINDINGS: Again noted is in situ tracheostomy tube and right-sided PICC line tip of which lies in the SVC/RA junction. There appears to be some minor bibasilar atelectasis. LUNGS: Slightly low lung volumes with mild crowded bronchovascular markings and minor bibasilar atelectasis right greater than left PLEURA: No significant pleural effusion identified, no pneumothorax apparent. CARDIOVASCULAR: No aortic atherosclerotic calcification present. Normal cardiac size. No pulmonary vascular congestion. OSSEOUS STRUCTURES: No significant abnormalities. VISUALIZED UPPER ABDOMEN: Normal. OTHER FINDINGS: None. IMPRESSION: Slightly low lung volumes with mild crowded bronchovascular markings and minor bibasilar atelectasis right greater than left
[2018-05-21] MEDS: levETIRAcetam 1,000 MG in Sodium Chloride 0.9% 100 ML IVPB SCH ×3 (11:07→22:33)
--- NOTE | 2018-05-21 12:09 | VASCLAB ---
Date of service: 05/20/2018 PROCEDURE: Lower Extremity Venous Duplex Exam. HISTORY: Fever PRIORS: None. TECHNIQUE: Bilateral common femoral, femoral, popliteal and posterior tibial, peroneal and great saphenous veins were evaluated. Flow was assessed with color Doppler, compressibility, assessment of phasic flow and augmentation response. Report prepared by MEAGAN Cramer, RVT FINDINGS: RIGHT: 1. Common Femoral Vein: 1.1. Compressibility - Fully compressible: Thrombus - None : Flow - Phasic: Augmentation -Normal: Reflux - None. 2. Femoral Vein: 2.1. Compressibility - Fully compressible: Thrombus - None : Flow - Phasic: Augmentation -Normal: Reflux - None. 3. Popliteal Vein: 3.1. Compressibility - Fully compressible: Thrombus - None : Flow - Phasic: Augmentation -Normal: Reflux - None. 4. Posterior Tibial Vein: 4.1. Compressibility - Fully compressible: Thrombus - None: Flow - Phasic: Augmentation -Normal: Reflux - None. 5. Peroneal Vein: 5.1. Compressibility - Fully compressible: Thrombus - None: Flow - Phasic: Augmentation -Normal: Reflux - None. 6. Great Saphenous Vein: 6.1. Compressibility - Fully compressible: Thrombus - None: Flow - Phasic: Augmentation - Normal: Reflux - None. LEFT: 1. Common Femoral Vein: 1.1. Compressibility - Fully compressible: Thrombus - None: Flow - Phasic: Augmentation -Normal: Reflux - None. 2. Femoral Vein: 2.1. Compressibility - Fully compressible: Thrombus - None: Flow - Phasic: Augmentation -Normal: Reflux - None. 3. Popliteal Vein: 3.1. Compressibility - Fully compressible: Thrombus - None : Flow - Phasic: Augmentation -Normal: Reflux - None. 4. Posterior Tibial Vein: 4.1. Compressibility - Fully compressible: Thrombus - None: Flow - Phasic: Augmentation -Normal: Reflux - None. 5. Peroneal Vein: 5.1. Compressibility - Fully compressible: Thrombus - None: Flow - Phasic: Augmentation -Normal: Reflux - None. 6. Great Saphenous Vein: 6.1. Compressibility - Fully compressible: Thrombus - None: Flow - Phasic: Augmentation - Normal: Reflux - None. OTHER FINDINGS: Right: None significant. Left: None significant. IMPRESSION: Right: No evidence of deep or superficial vein thrombosis of the right lower extremity. Normal valve function noted of the right side. Left: No evidence of deep or superficial vein thrombosis of the left lower extremity. Normal valve function noted of the left side.
--- NOTE | 2018-05-21 12:09 | VASCLAB ---
Date of service: 05/20/2018 PROCEDURE: Upper Extremity Venous Duplex Exam HISTORY: Fever PRIORS: None. TECHNIQUE: Bilateral upper extremity, internal jugular, subclavian, axillary, brachial, ulnar, radial, basilic and upper cephalic veins were evaluated. Flow was assessed with color Doppler, compressibility, assessment of phasic flow and augmentation response. Report prepared by Tony Cedillo, MEAGAN, RVT FINDINGS: RIGHT: 1. Internal Jugular: 1.1. Compressibility - Fully compressible: Thrombus - None : Flow - Phasic: Augmentation -Normal: Reflux - None. 2. Subclavian: 2.1. Compressibility - Fully compressible: Thrombus - None : Flow - Phasic: Augmentation -Normal: Reflux - None. 3. Axillary: 3.1. Compressibility - Fully compressible: Thrombus - None : Flow - Phasic: Augmentation -Normal: Reflux - None. 4. Brachial: 4.1. Compressibility - Fully compressible: Thrombus - None: Flow - Phasic: Augmentation -Normal: Reflux - None. 5. Ulnar: 5.1. Compressibility - Fully compressible: Thrombus - None: Flow - Phasic: Augmentation -Normal: Reflux - None. 6. Radial: 6.1. Compressibility - Fully compressible: Thrombus - None: Flow - Phasic: Augmentation - Normal: Reflux - None. 7. Cephalic: 7.1. Compressibility - Fully compressible: Thrombus - None: Flow - Phasic: Augmentation -Normal: Reflux - None. 8. Basilic: 8.1. Compressibility - Fully compressible: Thrombus - None: Flow - Phasic: Augmentation -Normal: Reflux - None. LEFT: 1. Internal Jugular: 1.1. Compressibility - Fully compressible: Thrombus - None : Flow - Phasic: Augmentation -Normal: Reflux - None. 2. Subclavian: 2.1. Compressibility - Fully compressible: Thrombus - None : Flow - Phasic: Augmentation -Normal: Reflux - None. 3. Axillary: 3.1. Compressibility - Fully compressible: Thrombus - None : Flow - Phasic: Augmentation -Normal: Reflux - None. 4. Brachial: 4.1. Compressibility - Fully compressible: Thrombus - None: Flow - Phasic: Augmentation -Normal: Reflux - None. 5. Ulnar: 5.1. Compressibility - Fully compressible: Thrombus - None: Flow - Phasic: Augmentation -Normal: Reflux - None. 6. Radial: 6.1. Compressibility - Fully compressible: Thrombus - None: Flow - Phasic: Augmentation - Normal: Reflux - None. 7. Cephalic: 7.1. Compressibility - Incompressible: Thrombus - Acute: Flow - Reduced : Augmentation -Normal: Reflux - None. 8. Basilic: 8.1. Compressibility - Fully compressible: Thrombus - None: Flow - Phasic: Augmentation -Normal: Reflux - None. OTHER FINDINGS: Right: None. Left: None. IMPRESSION: Right: No evidence of vein thrombosis of the right upper extremity with excellent venous flow. Normal valve function noted of the right side. Left: Acute superficial phlebitis of the left cephalic vein. No evidence of deep vein thrombosis of the left upper extremity. Findings were reported to EARLE Carson upon completion of this exam.
--- NOTE | 2018-05-21 14:49 | CP.PCM.PN ---
<Channing Tate - Last Filed: 05/21/18 14:45> Subjective - Date & Time of Evaluation Date of Evaluation: 05/21/18 Time of Evaluation: 08:00 - Subjective Subjective: Channing Tate PGY1 Progress Note for Dr. Sheikh Pt was examined at bedside this morning. She remains nonverbal, unable to respond to commands, and unresponsive to painful stimuli. Objective - Vital Signs/Intake and Output Vital Signs (last 24 hours): Temp Pulse Resp BP Pulse Ox 98.8 F 91 H 20 111/66 99 05/21/18 08:00 05/21/18 08:00 05/21/18 08:00 05/21/18 10:15 05/21/18 08:00 Intake and Output: 05/21/18 05/21/18 06:59 18:59 Intake Total 2680 Output Total 1400 Balance 1280 - Medications Medications: Current Medications Acetaminophen (Tylenol 650 Mg Supp) 650 mg [place] Q6 PRN PRN Reason: Fever >100.4 F Last Admin: 05/20/18 02:35 Dose: 650 mg Acetylcysteine (Acetylcysteine 20%) 4 ml INH RQ4 [facility] Last Admin: 05/21/18 11:45 Dose: 4 ml Albuterol/Ipratropium (Duoneb 3 Mg/0.5 Mg (3 Ml) Ud) 3 ml INH RQ4 BETH Last Admin: 05/21/18 11:45 Dose: 3 ml Amlodipine Besylate (Norvasc) 10 mg PO DAILY [facility] Last Admin: 05/21/18 10:15 Dose: 10 mg Aspirin (Aspirin Chewable) 81 mg PO DAILY [facility] Last Admin: 05/21/18 10:15 Dose: 81 mg Bisacodyl (Dulcolax) 10 mg WY TID PRN PRN Reason: Constipation Last Admin: 05/10/18 09:45 Dose: 10 mg Clopidogrel Bisulfate (Plavix) 75 mg PO DAILY [facility] Last Admin: 05/21/18 10:14 Dose: 75 mg Dextrose (Dextrose 50% Inj) 0 ml IV STAT PRN; Protocol PRN Reason: Hypoglycemia Protocol Dextrose (Glutose 15) 15 gm PO ONCE PRN; Protocol PRN Reason: Hypoglycemia Protocol Famotidine (Pepcid) 20 mg IVP Q12 [facility] Last Admin: 11/16/18 11:15 Dose: 20 mg Glucagon (Glucagen Diagnostic Kit) 1 mg IM STAT PRN; Protocol PRN Reason: Hypoglycemia Protocol Heparin Sodium (Porcine) (Heparin) 5,000 units SC Q8 [facility] Last Admin: 05/21/18 14:09 Dose: 5,000 units Levetiracetam 1,000 mg/ Sodium (Chloride) 110 mls @ 420 mls/hr IVPB Q12H [facility] Last Admin: 05/21/18 11:07 Dose: 420 mls/hr Dextrose (Dextrose 5% In Water 1000 Ml) 1,000 mls @ 0 mls/hr IV .Q0M PRN; Protocol PRN Reason: Hypoglycemia Protocol Metronidazole (Flagyl) 500 mg in 100 mls @ 100 mls/hr IVPB Q8H [facility]; Protocol Last Admin: 05/21/18 11:08 Dose: 100 mls/hr Meropenem 1 gm/ Sodium (Chloride) 100 mls @ 200 mls/hr IVPB Q8H [facility]; Protocol Last Admin: 05/21/18 11:07 Dose: 200 mls/hr Dextrose (Dextrose 5% In Water 1000 Ml) 1,000 mls @ 75 mls/hr IV .[id number] [facility] Last Admin: 05/21/18 07:02 Dose: Not Given Ibuprofen (Motrin Oral Susp) 200 mg PO Q6H PRN PRN Reason: Fever >100.4 F Last Admin: 05/21/18 05:37 Dose: 200 mg Insulin Aspart (Novolog) 0 unit SC Q6 [facility]; Protocol Last Admin: 05/21/18 12:43 Dose: 6 units Insulin Glargine (Lantus) 25 unit SC [facility] Labetalol HCl (Trandate) 10 mg IVP Q4H PRN PRN Reason: Systolic Blood Pressure Last Admin: 05/16/18 11:45 Dose: 10 mg Lactobacillus Acidophilus (Bacid Acidophilus) 1 cap PO BID [facility] Last Admin: 05/21/18 10:31 Dose: 1 cap Lactulose (Enulose) 20 gm PO DAILY PRN PRN Reason: Constipation Last Admin: 05/10/18 09:45 Dose: 20 gm Lorazepam (Ativan) 1 mg IVP Q4 PRN PRN Reason: Restlessness Last Admin: 05/20/18 21:05 Dose: 1 mg Metoprolol Tartrate (Lopressor) 75 mg PO BID [facility] Last Admin: 05/21/18 10:15 Dose: 75 mg Morphine Sulfate (Morphine) 2 mg IVP Q4 PRN PRN Reason: Pain, moderate (4-7) Last Admin: 05/12/18 10:15 Dose: 2 mg Rosuvastatin Calcium (Crestor) 5 mg PO HS [facility] Last Admin: 05/20/18 21:13 Dose: 5 mg Senna/Docusate Sodium (Senokot S 50 Mg-8.6 Mg) 1 tab PO BID [facility] Last Admin: 05/21/18 10:31 Dose: 1 tab Vitamin A (Vitamin A & D Oint Ud Foilpak) 1 ea TOP BID PRN PRN Reason: Dry skin Last Admin: 05/20/18 06:50 Dose: 1 ea - Labs Labs: 05/21/18 06:18 05/21/18 06:18 PT 14.7 SECONDS (9.7-12.2) H 05/16/18 11:28 INR 1.3 05/16/18 11:28 APTT 35 SECONDS (21-34) H 05/16/18 11:28 - Additional Findings Additional findings: - Constitutional Appears: No Acute Distress, Chronically Ill - Head Exam Head Exam: ATRAUMATIC, NORMOCEPHALIC - Eye Exam Eye Exam: EOMI, Normal appearance. Pupil contract to light on R, remain dilated on L to light. - ENT Exam ENT Exam: Mucous Membranes Moist - Neck Exam Additional comments: trache site clean, dry, intact - Respiratory Exam Respiratory Exam: Clear to Ausculation Bilateral, NORMAL BREATHING PATTERN. absent: Rales, Rhonchi, Wheezes - Cardiovascular Exam Cardiovascular Exam: REGULAR RHYTHM, +S1, +S2. absent: Gallop, Rubs, Murmur - GI/Abdominal Exam GI & Abdominal Exam: Soft, Normal Bowel Sounds. absent: Distended, Tenderness - Extremities Exam Extremities Exam: Pedal Edema - Neurological Exam Neurological Exam: Awake. absent: Oriented x3. Babisnki reflex downgoing b/l. - Skin Skin Exam: Normal Color Assessment and Plan - Assessment and Plan (Free Text) Assessment: Respiratory Failure - Due to Asphyxiation/Possible Suicide Attempt - Intubated, on vent @FiO2 40 - s/p tracheotomy - s/p G tube repositioning 05/16 - pending transfer to LTAC Leukocytosis - Tmax 103.2F @ 2AM 05/20 - today T 98.8 - rpt CXR 05/21: slightly low lung volumes with mild crowded bronchovascular markings and minor bibasilar atelectases - rpt BCx: neg - rpt UCx: yeast - UA: leuk est 3+, +WBC, +RBC, nitrate - - BCx 05/02/18: negative - UCx 05/06/18: negative - Tracheal Aspirate Cx 05/08/18: yeast - colindres changed 05/17 - cooling blanket - ice packs PRN fever - Doppler b/l UE and LE: negative for DVTs - Flagyl 500 mg IV Q8H - Meropenem 500 mg IV Q8H Anoxic Brain Injury - rpt EEG: severe non specific diffuse distrubances in cortical activity, brown matter dysfunction - EEG 05/04: diffuse encephalopathy with burst suppression. - Repeat CT head: no bleeding - MRI Brain: subacute favored over acute cerebral hypoxic insult with minimal involvement of the lower haris and the cerebellar hemispheres - keppra 1,000 mg IV Q12H - Ativan 1mg q4h PRN - Neurology consulted, Dr. Duff/Guilherme NSTEMI - Elevated troponin - hold ASA 81 mg PO daily - hold Crestor 5 mg PO daily - Cardiology consulted, Dr Gay Transaminitis - Likely shock liver - Follow LFTs DM - Lantus 10 Units SC - Aspart ISS Q6H ARF - Likely Secondary to ATN with Hypernatremia - BUN/Cr have improved - Nephrology consulted, Dr. Samuels HTN - hold metoprolol Tartrate 75 mg PO BID - hold Norvasc 5 mg PO 1x/day - Labetalol 10 mg IV Q4H PRN SBP > 140 PPx Heparin 5,000 Units SC Q8H Protonix 40 mg GT Feeding resumed today Aspiration precautions Seizure precautions suction PRN Turn and reposition q2h PT/OT Case discussed and plan with Dr. Sheikh <Yann Sheikh - Last Filed: 05/21/18 15:36> Objective - Vital Signs/Intake and Output Vital Signs (last 24 hours): Temp Pulse Resp BP Pulse Ox 102.4 F H 91 H 20 111/66 99 05/21/18 14:30 05/21/18 08:00 05/21/18 08:00 05/21/18 10:15 05/21/18 08:00 Intake and Output: 05/21/18 05/21/18 06:59 18:59 Intake Total 2680 Output Total 1400 Balance 1280 - Medications Medications: Current Medications Acetaminophen (Tylenol 650 Mg Supp) 650 mg WY Q6 PRN PRN Reason: Fever >100.4 F Last Admin: 05/20/18 02:35 Dose: 650 mg Acetylcysteine (Acetylcysteine 20%) 4 ml INH RQ4 [facility] Last Admin: 05/21/18 11:45 Dose: 4 ml Albuterol/Ipratropium (Duoneb 3 Mg/0.5 Mg (3 Ml) Ud) 3 ml INH RQ4 [facility] Last Admin: 05/21/18 11:45 Dose: 3 ml Amlodipine Besylate (Norvasc) 10 mg PO DAILY [facility] Last Admin: 05/21/18 10:15 Dose: 10 mg Aspirin (Aspirin Chewable) 81 mg PO DAILY [facility] Last Admin: 05/21/18 10:15 Dose: 81 mg Bisacodyl (Dulcolax) 10 mg WY TID PRN PRN Reason: Constipation Last Admin: 05/10/18 09:45 Dose: 10 mg Clopidogrel Bisulfate (Plavix) 75 mg PO DAILY [facility] Last Admin: 05/21/18 10:14 Dose: 75 mg Dextrose (Dextrose 50% Inj) 0 ml IV STAT PRN; Protocol PRN Reason: Hypoglycemia Protocol Dextrose (Glutose 15) 15 gm PO ONCE PRN; Protocol PRN Reason: Hypoglycemia Protocol Famotidine (Pepcid) 20 mg IVP Q12 [facility] Last Admin: 05/21/18 11:15 Dose: 20 mg Glucagon (Glucagen Diagnostic Kit) 1 mg IM STAT PRN; Protocol PRN Reason: Hypoglycemia Protocol Heparin Sodium (Porcine) (Heparin) 5,000 units SC Q8 [facility] Last Admin: 05/21/18 14:09 Dose: 5,000 units Levetiracetam 1,000 mg/ Sodium (Chloride) 110 mls @ 420 mls/hr IVPB Q12H [facility] Last Admin: 05/21/18 11:07 Dose: 420 mls/hr Dextrose (Dextrose 5% In Water 1000 Ml) 1,000 mls @ 0 mls/hr IV .Q0M PRN; Protocol PRN Reason: Hypoglycemia Protocol Metronidazole (Flagyl) 500 mg in 100 mls @ 100 mls/hr IVPB Q8H [facility]; Protocol Last Admin: 05/21/18 11:08 Dose: 100 mls/hr Meropenem 1 gm/ Sodium (Chloride) 100 mls @ 200 mls/hr IVPB Q8H [facility]; Protocol Last Admin: 05/21/18 11:07 Dose: 200 mls/hr Dextrose (Dextrose 5% In Water 1000 Ml) 1,000 mls @ 75 mls/hr IV .[id number] [facility] Last Admin: 05/21/18 07:02 Dose: Not Given Ibuprofen (Motrin Oral Susp) 200 mg PO Q6H PRN PRN Reason: Fever >100.4 F Last Admin: 05/21/18 05:37 Dose: 200 mg Insulin Aspart (Novolog) 0 unit SC Q6 [facility]; Protocol Last Admin: 05/21/18 12:43 Dose: 6 units Insulin Glargine (Lantus) 25 unit SC [facility] Labetalol HCl (Trandate) 10 mg IVP Q4H PRN PRN Reason: Systolic Blood Pressure Last Admin: 05/16/18 11:45 Dose: 10 mg Lactobacillus Acidophilus (Bacid Acidophilus) 1 cap PO BID [facility] Last Admin: 05/21/18 10:31 Dose: 1 cap Lactulose (Enulose) 20 gm PO DAILY PRN PRN Reason: Constipation Last Admin: 05/10/18 09:45 Dose: 20 gm Lorazepam (Ativan) 1 mg IVP Q4 PRN PRN Reason: Restlessness Last Admin: 05/20/18 21:05 Dose: 1 mg Metoprolol Tartrate (Lopressor) 75 mg PO BID [facility] Last Admin: 05/21/18 10:15 Dose: 75 mg Morphine Sulfate (Morphine) 2 mg IVP Q4 PRN PRN Reason: Pain, moderate (4-7) Last Admin: 05/12/18 10:15 Dose: 2 mg Rosuvastatin Calcium (Crestor) 5 mg PO [facility] Last Admin: 05/20/18 21:13 Dose: 5 mg Senna/Docusate Sodium (Senokot S 50 Mg-8.6 Mg) 1 tab PO BID [facility] Last Admin: 05/21/18 10:31 Dose: 1 tab Vitamin A (Vitamin A & D Oint Ud Foilpak) 1 ea TOP BID PRN PRN Reason: Dry skin Last Admin: 05/20/18 06:50 Dose: 1 ea - Labs Labs: 05/21/18 06:18 05/21/18 06:18 PT 14.7 SECONDS (9.7-12.2) H 05/16/18 11:28 INR 1.3 05/16/18 11:28 APTT 35 SECONDS (21-34) H 05/16/18 11:28 Attending/Attestation - Attestation I have personally seen and examined this patient.: Yes I have fully participated in the care of the patient.: Yes I have reviewed all pertinent clinical information, including history, physical exam and plan: Yes Notes (Text): 05/21/18 15:36 Medical attending: Patient was seen and examined by me with the medical residents. The situation does not change from before. She continues to have the se fevers, she currently has a corn blanket at this time. She remains on IV antibiotics. Blood cultures, urine sputum and trach cultures have been negative to date. We inspected the patient's backside to see if there could be any open wounds or ulcers that could be infected, did not see anything. He was inspected the PEG tube as well we were not able to elicit any discharge. It did not appear to be erythematous. Thank you very much, Yann Sheikh
[2018-05-21 19:37] LABS: URINE BILIRUBIN NEGATIVE (NEGATIVE); URINE BLOOD NEGATIVE (NEGATIVE); URINE CLARITY Clear (Clear); URINE COLOR Yellow (YELLOW); URINE GLUCOSE (UA) 3+ mg/dL (Normal); URINE LEUKOCYTE ESTERASE NEG Leu/uL (Negative); URINE PROTEIN NEGATIVE (NEGATIVE); URINE UROBILINOGEN NORMAL mg/dL (0.2-1.0)
[2018-05-22] MEDS: (Novolog) Insulin Aspart, Recombinant 100 u/ml 10 ml vial SC SCH ×4 (00:38→17:35)
[2018-05-22] MEDS: Meropenem 1 GM in Sodium Chloride 0.9% 100 ML IVPB SCH ×3 (02:56→18:27)
[2018-05-22] MEDS: metroNIDAZOLE IV 500 mg/100 ml 500 MG/100 ML BAG IVPB SCH ×3 (03:40→19:10)
[2018-05-22] MEDS: Acetylcysteine 20% Inhal Soln (4ml) INH SCH ×5 (04:50→20:50)
[2018-05-22] MEDS: Albuterol-Ipratrop 3 mg / 0.5 (3 ml) UD INH SCH ×5 (04:50→20:50)
[2018-05-22 06:40] LABS: BASO # 0.1 K/uL (0.0-0.2); BASO % 0.8 % (0.0-2.0); EOS # 0.3 K/uL (0.0-0.7); EOS % 2.8 % (0.0-4.0); LYMPH # 1.8 K/uL (1.0-4.3); LYMPH % 16.9 % (20.0-40.0); MEAN CELL VOLUME 80.9 fL (81.0-99.0); MEAN CORPUSCULAR HEMOGLOBIN 26.9 pg (27.0-31.0); MEAN CORPUSCULAR HGB CONC 33.3 g/dL (33.0-37.0); MEAN PLATELET VOLUME 12.1 fL (7.2-11.7); MONO # 0.8 K/uL (0.0-0.8); MONO % 7.6 % (0.0-10.0); NEUT # 7.5 K/uL (1.8-7.0); NEUT % 71.9 % (50.0-75.0); NRBC % 0.1 % (0.0-2.0); RBC 3.33 Mil/uL (3.80-5.20); WHITE BLOOD COUNT 10.4 K/uL (4.8-10.8)
[2018-05-22 07:02] LABS: ALB/GLOB RATIO 0.8 (1.0-2.1); ALBUMIN 2.8 g/dL (3.5-5.0); ALT/SGPT 41 U/L (9-52); AST/SGOT 52 U/L (14-36); BLOOD UREA NITROGEN 18 mg/dL (7-17); CALCIUM 7.8 mg/dl (8.6-10.4); GFR NON-AFRICAN AMERICAN 52
[2018-05-22] MEDS: Lactobacillus Acidophilus 500 MU Cap PO SCH (10:08)
[2018-05-22] MEDS: Docusate-Senna 50 mg-8.6 mg Tab PO SCH ×2 (10:08→17:35)
[2018-05-22] MEDS: levETIRAcetam 1,000 MG in Sodium Chloride 0.9% 100 ML IVPB SCH ×2 (10:34→22:37)
--- NOTE | 2018-05-22 11:53 | CP.PCM.PN ---
<Phillip Hall - Last Filed: 05/22/18 16:28> Subjective - Date & Time of Evaluation Date of Evaluation: 05/22/18 Time of Evaluation: 11:53 - Subjective Subjective: Progress note for Hospitalist service Patient seen and examined at bedside. Unable to obtain ROS . She remains nonverbal, unable to respond to commands. Family present at bedside. Objective - Vital Signs/Intake and Output Vital Signs (last 24 hours): Temp Pulse Resp BP Pulse Ox 101.4 F H 86 20 148/72 100 05/22/18 07:00 05/22/18 07:00 05/22/18 07:00 05/22/18 10:07 05/22/18 07:00 Intake and Output: 05/22/18 05/22/18 06:59 18:59 Intake Total 1040 1310 Output Total 1500 1300 Balance -460 10 - Medications Medications: Current Medications Acetaminophen (Tylenol 650 Mg Supp) 650 mg [place] Q6 PRN PRN Reason: Fever >100.4 F Last Admin: 05/22/18 06:44 Dose: 650 mg Acetylcysteine (Acetylcysteine 20%) 4 ml INH RQ4 [facility] Last Admin: 05/22/18 09:09 Dose: 4 ml Albuterol/Ipratropium (Duoneb 3 Mg/0.5 Mg (3 Ml) Ud) 3 ml INH RQ4 [facility] Last Admin: 05/22/18 09:10 Dose: 3 ml Amlodipine Besylate (Norvasc) 10 mg PO DAILY [facility] Last Admin: 05/22/18 10:08 Dose: 10 mg Aspirin (Aspirin Chewable) 81 mg PO DAILY [facility] Last Admin: 05/22/18 10:09 Dose: 81 mg Bisacodyl (Dulcolax) 10 mg [place] TID PRN PRN Reason: Constipation Last Admin: 05/10/18 09:45 Dose: 10 mg Clopidogrel Bisulfate (Plavix) 75 mg PO DAILY [facility] Last Admin: 05/22/18 10:07 Dose: 75 mg Dextrose (Dextrose 50% Inj) 0 ml IV STAT PRN; Protocol PRN Reason: Hypoglycemia Protocol Dextrose (Glutose 15) 15 gm PO ONCE PRN; Protocol PRN Reason: Hypoglycemia Protocol Famotidine (Pepcid) 20 mg IVP Q12 [facility] Last Admin: 05/21/18 21:51 Dose: 20 mg Glucagon (Glucagen Diagnostic Kit) 1 mg IM STAT PRN; Protocol PRN Reason: Hypoglycemia Protocol Heparin Sodium (Porcine) (Heparin) 5,000 units SC Q8 [facility] Last Admin: 05/22/18 05:26 Dose: 5,000 units Levetiracetam 1,000 mg/ Sodium (Chloride) 110 mls @ 420 mls/hr IVPB Q12H [facility] Last Admin: 05/22/18 10:34 Dose: 420 mls/hr Dextrose (Dextrose 5% In Water 1000 Ml) 1,000 mls @ 0 mls/hr IV .Q0M PRN; Protocol PRN Reason: Hypoglycemia Protocol Metronidazole (Flagyl) 500 mg in 100 mls @ 100 mls/hr IVPB Q8H [facility]; Protocol Last Admin: 05/22/18 03:40 Dose: 100 mls/hr Meropenem 1 gm/ Sodium (Chloride) 100 mls @ 200 mls/hr IVPB Q8H [facility]; Protocol Last Admin: 05/22/18 11:03 Dose: 200 mls/hr Dextrose (Dextrose 5% In Water 1000 Ml) 1,000 mls @ 75 mls/hr IV .[id number] [facility] Last Admin: 05/22/18 07:00 Dose: Not Given Ibuprofen (Motrin Oral Susp) 200 mg PO Q6H PRN PRN Reason: Fever >100.4 F Last Admin: 05/22/18 10:06 Dose: 200 mg Insulin Aspart (Novolog) 0 unit SC Q6 [facility]; Protocol Last Admin: 05/22/18 07:05 Dose: 10 units Insulin Glargine (Lantus) 25 unit SC HS [facility] Last Admin: 05/21/18 21:51 Dose: 25 u Labetalol HCl (Trandate) 10 mg IVP Q4H PRN PRN Reason: Systolic Blood Pressure Last Admin: 05/16/18 11:45 Dose: 10 mg Lactulose (Enulose) 20 gm PO DAILY PRN PRN Reason: Constipation Last Admin: 05/10/18 09:45 Dose: 20 gm Lorazepam (Ativan) 1 mg IVP Q4 PRN PRN Reason: Restlessness Last Admin: 05/20/18 21:05 Dose: 1 mg Metoprolol Tartrate (Lopressor) 75 mg PO BID [facility] Last Admin: 05/22/18 10:07 Dose: 75 mg Morphine Sulfate (Morphine) 2 mg IVP Q4 PRN PRN Reason: Pain, moderate (4-7) Last Admin: 05/22/18 06:09 Dose: 2 mg Rosuvastatin Calcium (Crestor) 5 mg PO HS [facility] Last Admin: 05/21/18 22:06 Dose: Not Given Senna/Docusate Sodium (Senokot S 50 Mg-8.6 Mg) 1 tab PO BID [facility] Last Admin: 05/22/18 10:08 Dose: 1 tab Vitamin A (Vitamin A & D Oint Ud Foilpak) 1 ea TOP BID PRN PRN Reason: Dry skin Last Admin: 05/20/18 06:50 Dose: 1 ea - Labs Labs: 05/22/18 06:36 05/22/18 06:36 PT 14.7 SECONDS (9.7-12.2) H 05/16/18 11:28 INR 1.3 05/16/18 11:28 APTT 35 SECONDS (21-34) H 05/16/18 11:28 - Constitutional Appears: No Acute Distress - Head Exam Head Exam: ATRAUMATIC, NORMOCEPHALIC - Eye Exam Eye Exam: EOMI Additional comments: Pupils react on right to light, non reactive on left - ENT Exam ENT Exam: Mucous Membranes Moist Additional comments: Mild dried blood noted from patient biting on tongue - Respiratory Exam Respiratory Exam: Clear to Ausculation Bilateral. absent: Rales, Rhonchi, Wheezes, Respiratory Distress, Stridor - Cardiovascular Exam Cardiovascular Exam: REGULAR RHYTHM, +S1, +S2. absent: Gallop, Rubs, Murmur - GI/Abdominal Exam GI & Abdominal Exam: Distended, Soft, Normal Bowel Sounds. absent: Firm, Guarding, Rigid, Tenderness, Organomegaly Additional comments: Peg tube in place with no evidence of infection - Extremities Exam Extremities Exam: Pedal Edema. absent: Calf Tenderness - Neurological Exam Neurological Exam: absent: Oriented x3 Assessment and Plan - Assessment and Plan (Free Text) Plan: A/P Respiratory Failure - Due to Asphyxiation/Possible Suicide Attempt - Intubated, on vent @FiO2 40 - s/p tracheotomy - s/p G tube repositioning 05/16 - pending transfer to LTAC - Mucomyst Q4 - Duonebs Q4 Leukocytosis - T 102.3F @ 1300 - rpt CXR 05/21: slightly low lung volumes with mild crowded bronchovascular markings and minor bibasilar atelectases - 05/17 rpt BCx: neg - 05/13/ UCx: yeast - Blood cx 05/21 negative - UA: leuk est 3+, +WBC, +RBC, nitrate - - BCx 05/02/18: negative - UCx 05/06/18: negative - Tracheal Aspirate Cx 05/08/18: yeast - colindres changed 05/17 - cooling blanket - ice packs PRN fever - Doppler b/l UE and LE: negative for DVTs - Flagyl 500 mg IV Q8H - Meropenem 500 mg IV Q8H Anoxic Brain Injury - rpt EEG: severe non specific diffuse distrubances in cortical activity, brown matter dysfunction - EEG 05/04: diffuse encephalopathy with burst suppression. - Repeat CT head: no bleeding - MRI Brain: subacute favored over acute cerebral hypoxic insult with minimal involvement of the lower haris and the cerebellar hemispheres - keppra 1,000 mg IV Q12H - Ativan 1mg q4h PRN - Neurology consulted, Dr. Duff/Guilherme NSTEMI - Elevated troponin - ASA 81 mg PO daily - Plavix 75mg PO daily - hold Crestor 5 mg PO daily - Cardiology consulted, Dr Gay Transaminitis - Likely shock liver - Follow LFTs DM - Lantus 10 Units SC - Aspart ISS Q6H ARF - Likely Secondary to ATN with Hypernatremia - BUN/Cr have improved - Nephrology consulted, Dr. Samuels HTN - Metoprolol Tartrate 75 mg PO BID - Norvasc 5 mg PO 1x/day - Labetalol 10 mg IV Q4H PRN SBP > 140 PPx Heparin 5,000 Units SC Q8H Pepcid 20mg Q12 GT Feeding reduced today, since abdomen more distended. Aspiration precautions Seizure precautions suction PRN Turn and reposition q2h PT/OT Case discussed with Dr. Kori Hall, PGY1 <Yann Sheikh - Last Filed: 05/22/18 16:48> Objective - Vital Signs/Intake and Output Vital Signs (last 24 hours): Temp Pulse Resp BP Pulse Ox 102.3 F H 86 20 148/72 100 05/22/18 13:18 05/22/18 07:00 05/22/18 07:00 05/22/18 10:07 05/22/18 07:00 Intake and Output: 05/22/18 05/22/18 06:59 18:59 Intake Total 1040 2385 Output Total 1500 2000 Balance -460 385 - Medications Medications: Current Medications Acetaminophen (Tylenol 650 Mg Supp) 650 mg [place] Q6 PRN PRN Reason: Fever >100.4 F Last Admin: 05/22/18 13:18 Dose: 650 mg Acetylcysteine (Acetylcysteine 20%) 4 ml INH RQ4 [facility] Last Admin: 05/22/18 12:12 Dose: 4 ml Albuterol/Ipratropium (Duoneb 3 Mg/0.5 Mg (3 Ml) Ud) 3 ml INH RQ4 [facility] Last Admin: 05/22/18 12:12 Dose: 3 ml Amlodipine Besylate (Norvasc) 10 mg PO DAILY [facility] Last Admin: 05/22/18 10:08 Dose: 10 mg Aspirin (Aspirin Chewable) 81 mg PO DAILY [facility] Last Admin: 05/22/18 10:09 Dose: 81 mg Bisacodyl (Dulcolax) 10 mg WY TID PRN PRN Reason: Constipation Last Admin: 05/10/18 09:45 Dose: 10 mg Clopidogrel Bisulfate (Plavix) 75 mg PO DAILY [facility] Last Admin: 05/22/18 10:07 Dose: 75 mg Dextrose (Dextrose 50% Inj) 0 ml IV STAT PRN; Protocol PRN Reason: Hypoglycemia Protocol Dextrose (Glutose 15) 15 gm PO ONCE PRN; Protocol PRN Reason: Hypoglycemia Protocol Famotidine (Pepcid) 20 mg IVP Q12 [facility] Last Admin: 05/22/18 12:22 Dose: 20 mg Glucagon (Glucagen Diagnostic Kit) 1 mg IM STAT PRN; Protocol PRN Reason: Hypoglycemia Protocol Heparin Sodium (Porcine) (Heparin) 5,000 units SC Q8 [facility] Last Admin: 05/22/18 14:09 Dose: 5,000 units Levetiracetam 1,000 mg/ Sodium (Chloride) 110 mls @ 420 mls/hr IVPB Q12H [facility] Last Admin: 05/22/18 10:34 Dose: 420 mls/hr Metronidazole (Flagyl) 500 mg in 100 mls @ 100 mls/hr IVPB Q8H [facility]; Protocol Last Admin: 05/22/18 12:16 Dose: 100 mls/hr Meropenem 1 gm/ Sodium (Chloride) 100 mls @ 200 mls/hr IVPB Q8H [facility]; Protocol Last Admin: 05/22/18 11:03 Dose: 200 mls/hr Dextrose (Dextrose 5% In Water 1000 Ml) 1,000 mls @ 75 mls/hr IV .[id number] [facility] Last Admin: 05/22/18 07:00 Dose: Not Given Ibuprofen (Motrin Oral Susp) 200 mg PO Q6H PRN PRN Reason: Fever >100.4 F Last Admin: 05/22/18 10:06 Dose: 200 mg Insulin Aspart (Novolog) 0 unit SC Q6 [facility]; Protocol Last Admin: 05/22/18 12:22 Dose: 6 units Insulin Glargine (Lantus) 25 unit SC [facility] Last Admin: 05/21/18 21:51 Dose: 25 u Labetalol HCl (Trandate) 10 mg IVP Q4H PRN PRN Reason: Systolic Blood Pressure Last Admin: 05/16/18 11:45 Dose: 10 mg Lactulose (Enulose) 20 gm PO DAILY PRN PRN Reason: Constipation Last Admin: 05/10/18 09:45 Dose: 20 gm Lorazepam (Ativan) 1 mg IVP Q4 PRN PRN Reason: Restlessness Last Admin: 05/20/18 21:05 Dose: 1 mg Metoprolol Tartrate (Lopressor) 75 mg PO BID [facility] Last Admin: 05/22/18 10:07 Dose: 75 mg Morphine Sulfate (Morphine) 2 mg IVP Q4 PRN PRN Reason: Pain, moderate (4-7) Last Admin: 05/22/18 12:22 Dose: 2 mg Rosuvastatin Calcium (Crestor) 5 mg PO [facility] Last Admin: 05/21/18 22:06 Dose: Not Given Senna/Docusate Sodium (Senokot S 50 Mg-8.6 Mg) 1 tab PO BID [facility] Last Admin: 05/22/18 10:08 Dose: 1 tab Vitamin A (Vitamin A & D Oint Ud Foilpak) 1 ea TOP BID PRN PRN Reason: Dry skin Last Admin: 05/20/18 06:50 Dose: 1 ea - Labs Labs: 05/22/18 06:36 05/22/18 06:36 PT 14.7 SECONDS (9.7-12.2) H 05/16/18 11:28 INR 1.3 05/16/18 11:28 APTT 35 SECONDS (21-34) H 05/16/18 11:28 Attending/Attestation - Attestation I have personally seen and examined this patient.: Yes I have fully participated in the care of the patient.: Yes I have reviewed all pertinent clinical information, including history, physical exam and plan: Yes Notes (Text): 05/22/18 16:46 Medical attending: Patient was seen and examined by me. Agree with the above note by the regional medical director The patient, as mentioned previously, remains non verbal and does not follow commands. The patient was noted to have a distended abdomen this morning and tube feeds have been temporarily held at this moment. Should the distention worsen or persist we may need a repeat of the abdomen and pelvs CT. Yann Sheikh
[2018-05-22] MEDS ORDERED: Sodium Chloride 0.9% 500 ML IV ONE (17:16)
[2018-05-22] MEDS: (Lantus) Insulin Glargine, Recombinant SC SCH (22:37)
[2018-05-23] MEDS: (Novolog) Insulin Aspart, Recombinant 100 u/ml 10 ml vial SC SCH ×4 (00:24→17:56)
[2018-05-23] MEDS: Acetylcysteine 20% Inhal Soln (4ml) INH SCH ×6 (01:14→23:49)
[2018-05-23] MEDS: Albuterol-Ipratrop 3 mg / 0.5 (3 ml) UD INH SCH ×6 (01:15→23:49)
[2018-05-23] MEDS: Meropenem 1 GM in Sodium Chloride 0.9% 100 ML IVPB SCH ×3 (02:53→18:32)
[2018-05-23] MEDS: metroNIDAZOLE IV 500 mg/100 ml 500 MG/100 ML BAG IVPB SCH ×3 (04:10→20:17)
[2018-05-23 07:53] LABS: BASO # 0.1 K/uL (0.0-0.2); BASO % 0.6 % (0.0-2.0); EOS # 0.4 K/uL (0.0-0.7); EOS % 5.3 % (0.0-4.0); LYMPH # 1.9 K/uL (1.0-4.3); LYMPH % 23.1 % (20.0-40.0); MEAN CELL VOLUME 81.9 fL (81.0-99.0); MEAN PLATELET VOLUME 13.3 fL (7.2-11.7); MONO # 0.7 K/uL (0.0-0.8); MONO % 7.9 % (0.0-10.0); NEUT # 5.2 K/uL (1.8-7.0); NEUT % 63.1 % (50.0-75.0); RBC 2.95 Mil/uL (3.80-5.20); RED CELL DISTRIBUTION WIDTH 16.2 % (11.5-14.5); WHITE BLOOD COUNT 8.3 K/uL (4.8-10.8)
[2018-05-23 08:30] LABS: ALB/GLOB RATIO 0.7 (1.0-2.1); ALBUMIN 2.3 g/dL (3.5-5.0); ALT/SGPT 34 U/L (9-52); AST/SGOT 45 U/L (14-36); BLOOD UREA NITROGEN 18 mg/dL (7-17); CALCIUM 7.6 mg/dl (8.6-10.4); GFR NON-AFRICAN AMERICAN 52
[2018-05-23] MEDS: Docusate-Senna 50 mg-8.6 mg Tab PO SCH ×2 (09:59→17:55)
[2018-05-23] MEDS: levETIRAcetam 1,000 MG in Sodium Chloride 0.9% 100 ML IVPB SCH ×2 (10:31→22:50)
--- NOTE | 2018-05-23 10:34 | CP.PCM.PN ---
<Phillip Hall - Last Filed: 05/23/18 16:01> Subjective - Date & Time of Evaluation Date of Evaluation: 05/23/18 Time of Evaluation: 10:34 - Subjective Subjective: Progress note for Hospitalist service Patient seen and examined at bedside. Unable to obtain ROS. She remains nonverbal, unable to respond to commands. She turns her head spontaneously. Objective - Vital Signs/Intake and Output Vital Signs (last 24 hours): Temp Pulse Resp BP Pulse Ox 99.1 F 72 20 101/62 96 05/23/18 08:00 05/23/18 08:00 05/23/18 08:00 05/23/18 09:59 05/23/18 08:00 Intake and Output: 05/23/18 05/23/18 06:59 18:59 Intake Total 1340 1135 Output Total 500 600 Balance 840 535 - Medications Medications: Current Medications Acetaminophen (Tylenol 650 Mg Supp) 650 mg [place] Q6 PRN PRN Reason: Fever >100.4 F Last Admin: 05/23/18 00:19 Dose: 650 mg Acetylcysteine (Acetylcysteine 20%) 4 ml INH RQ4 [facility] Last Admin: 05/23/18 07:25 Dose: 4 ml Albuterol/Ipratropium (Duoneb 3 Mg/0.5 Mg (3 Ml) Ud) 3 ml INH RQ4 [facility] Last Admin: 05/23/18 07:25 Dose: 3 ml Amlodipine Besylate (Norvasc) 10 mg PO DAILY [facility] Last Admin: 05/23/18 09:59 Dose: 10 mg Aspirin (Aspirin Chewable) 81 mg PO DAILY [facility] Last Admin: 05/22/18 10:09 Dose: 81 mg Bisacodyl (Dulcolax) 10 mg OR TID PRN PRN Reason: Constipation Last Admin: 05/10/18 09:45 Dose: 10 mg Clopidogrel Bisulfate (Plavix) 75 mg PO DAILY [facility] Last Admin: 05/22/18 10:07 Dose: 75 mg Dextrose (Dextrose 50% Inj) 0 ml IV STAT PRN; Protocol PRN Reason: Hypoglycemia Protocol Dextrose (Glutose 15) 15 gm PO ONCE PRN; Protocol PRN Reason: Hypoglycemia Protocol Famotidine (Pepcid) 20 mg IVP Q12 [facility] Last Admin: 05/23/18 09:59 Dose: 20 mg Glucagon (Glucagen Diagnostic Kit) 1 mg IM STAT PRN; Protocol PRN Reason: Hypoglycemia Protocol Heparin Sodium (Porcine) (Heparin) 5,000 units SC Q8 [facility] Last Admin: 05/23/18 05:36 Dose: 5,000 units Levetiracetam 1,000 mg/ Sodium (Chloride) 110 mls @ 420 mls/hr IVPB Q12H [facility] Last Admin: 05/23/18 10:31 Dose: 420 mls/hr Metronidazole (Flagyl) 500 mg in 100 mls @ 100 mls/hr IVPB Q8H [facility]; Protocol Last Admin: 05/23/18 04:10 Dose: 100 mls/hr Meropenem 1 gm/ Sodium (Chloride) 100 mls @ 200 mls/hr IVPB Q8H [facility]; Protocol Last Admin: 05/23/18 02:53 Dose: 200 mls/hr Dextrose (Dextrose 5% In Water 1000 Ml) 1,000 mls @ 75 mls/hr IV .[id number] [facility] Last Admin: 05/23/18 10:02 Dose: 75 mls/hr Ibuprofen (Motrin Oral Susp) 200 mg PO Q6H PRN PRN Reason: Fever >100.4 F Last Admin: 05/23/18 09:58 Dose: 200 mg Insulin Aspart (Novolog) 0 unit SC Q6 [facility]; Protocol Last Admin: 05/23/18 06:47 Dose: 6 units Insulin Glargine (Lantus) 30 unit SC HS [facility] Last Admin: 05/22/18 22:37 Dose: 30 u Labetalol HCl (Trandate) 10 mg IVP Q4H PRN PRN Reason: Systolic Blood Pressure Last Admin: 05/16/18 11:45 Dose: 10 mg Lactulose (Enulose) 20 gm PO DAILY PRN PRN Reason: Constipation Last Admin: 05/23/18 09:58 Dose: 20 gm Lorazepam (Ativan) 1 mg IVP Q4 PRN PRN Reason: Restlessness Last Admin: 05/23/18 01:37 Dose: 1 mg Metoprolol Tartrate (Lopressor) 75 mg PO BID [facility] Last Admin: 05/23/18 09:59 Dose: 75 mg Morphine Sulfate (Morphine) 2 mg IVP Q4 PRN PRN Reason: Pain, moderate (4-7) Last Admin: 05/23/18 10:14 Dose: 2 mg Rosuvastatin Calcium (Crestor) 5 mg PO HS [facility] Last Admin: 05/22/18 21:07 Dose: 5 mg Senna/Docusate Sodium (Senokot S 50 Mg-8.6 Mg) 1 tab PO BID [facility] Last Admin: 05/23/18 09:59 Dose: 1 tab Vitamin A (Vitamin A & D Oint Ud Foilpak) 1 ea TOP BID PRN PRN Reason: Dry skin Last Admin: 05/20/18 06:50 Dose: 1 ea - Labs Labs: 05/23/18 07:46 05/23/18 07:46 PT 14.7 SECONDS (9.7-12.2) H 05/16/18 11:28 INR 1.3 05/16/18 11:28 APTT 35 SECONDS (21-34) H 05/16/18 11:28 - Constitutional Appears: No Acute Distress - Eye Exam Eye Exam: EOMI Additional comments: Pupils react to light, nonreactive on left. - ENT Exam ENT Exam: Mucous Membranes Moist - Respiratory Exam Respiratory Exam: Clear to Ausculation Bilateral. absent: Rales, Rhonchi, Wheezes, Respiratory Distress, Stridor - Cardiovascular Exam Cardiovascular Exam: REGULAR RHYTHM, +S1, +S2. absent: Gallop, Rubs, Murmur - GI/Abdominal Exam GI & Abdominal Exam: Distended, Soft, Normal Bowel Sounds Additional comments: Peg tube in place, with no evidence of infection - Extremities Exam Extremities Exam: absent: Calf Tenderness, Pedal Edema - Neurological Exam Neurological Exam: Awake. absent: Oriented x3 - Skin Skin Exam: Dry, Intact, Warm Assessment and Plan - Assessment and Plan (Free Text) Plan: A/P Respiratory Failure - Due to Asphyxiation/Possible Suicide Attempt - Intubated, on vent @FiO2 40 - s/p tracheotomy - s/p G tube repositioning 05/16 - Mucomyst Q4 - Duonebs Q4 Leukocytosis - T 101 overnight - rpt CXR 05/21: slightly low lung volumes with mild crowded bronchovascular markings and minor bibasilar atelectases - 05/17 rpt BCx: neg - 05/13/ rpt UCx: yeast - Blood cx 05/21 negative - UA: leuk est 3+, +WBC, +RBC, nitrate - - BCx 05/02/18: negative - UCx 05/06/18: negative - Tracheal Aspirate Cx 05/08/18: yeast - colindres changed 05/17 - cooling blanket - ice packs PRN fever - Doppler b/l UE and LE: negative for DVTs - Flagyl 500 mg IV Q8H - Meropenem 500 mg IV Q8H Anoxic Brain Injury - rpt EEG: severe non specific diffuse distrubances in cortical activity, brown matter dysfunction - EEG 05/04: diffuse encephalopathy with burst suppression. - Repeat CT head: no bleeding - MRI Brain: subacute favored over acute cerebral hypoxic insult with minimal involvement of the lower haris and the cerebellar hemispheres - keppra 1,000 mg IV Q12H - Ativan 1mg q4h PRN - Neurology consulted, Dr. Duff/Guilherme NSTEMI - Elevated troponin - ASA 81 mg PO daily (held - given drop in Hb) - Plavix 75mg PO daily (held - given drop in Hb) - hold Crestor 5 mg PO daily - Cardiology consulted, Dr Gay Transaminitis - Likely shock liver - Follow LFTs DM - Lantus 10 Units SC - Aspart ISS Q6H ARF - Likely Secondary to ATN with Hypernatremia - BUN/Cr have improved - Nephrology consulted, Dr. Samuels HTN - Metoprolol Tartrate 75 mg PO BID - Norvasc 5 mg PO 1x/day - Labetalol 10 mg IV Q4H PRN SBP > 140 PPx Heparin 5,000 Units SC Q8H (held given drop in Hb) Pepcid 20mg Q12 GT Feeding reduced to 30cc/hr, since abdomen more distended. Aspiration precautions Seizure precautions suction PRN D5W @ 50cc/hr IV Turn and reposition q2h PT/OT Case discussed with Dr. Kori Hall, PGY1 <Yann Sheikh H - Last Filed: 05/23/18 17:57> Objective - Vital Signs/Intake and Output Vital Signs (last 24 hours): Temp Pulse Resp BP Pulse Ox 100.5 F H 82 20 145/77 100 05/23/18 15:00 05/23/18 15:00 05/23/18 15:00 05/23/18 15:00 05/23/18 15:00 Intake and Output: 05/23/18 05/23/18 06:59 18:59 Intake Total 1340 2175 Output Total 500 1200 Balance 840 975 - Medications Medications: Current Medications Acetaminophen (Tylenol 650 Mg Supp) 650 mg OR Q6 PRN PRN Reason: Fever >100.4 F Last Admin: 05/23/18 00:19 Dose: 650 mg Acetylcysteine (Acetylcysteine 20%) 4 ml INH RQ4 [facility] Last Admin: 05/23/18 16:57 Dose: 4 ml Albuterol/Ipratropium (Duoneb 3 Mg/0.5 Mg (3 Ml) Ud) 3 ml INH RQ4 [facility] Last Admin: 05/23/18 16:57 Dose: 3 ml Amlodipine Besylate (Norvasc) 10 mg PO DAILY [facility] Last Admin: 05/23/18 09:59 Dose: 10 mg Aspirin (Aspirin Chewable) 81 mg PO DAILY [facility] Last Admin: 05/22/18 10:09 Dose: 81 mg Bisacodyl (Dulcolax) 10 mg OR TID PRN PRN Reason: Constipation Last Admin: 05/10/18 09:45 Dose: 10 mg Clopidogrel Bisulfate (Plavix) 75 mg PO DAILY [facility] Last Admin: 05/22/18 10:07 Dose: 75 mg Dextrose (Dextrose 50% Inj) 0 ml IV STAT PRN; Protocol PRN Reason: Hypoglycemia Protocol Dextrose (Glutose 15) 15 gm PO ONCE PRN; Protocol PRN Reason: Hypoglycemia Protocol Famotidine (Pepcid) 20 mg IVP Q12 [facility] Last Admin: 05/23/18 09:59 Dose: 20 mg Glucagon (Glucagen Diagnostic Kit) 1 mg IM STAT PRN; Protocol PRN Reason: Hypoglycemia Protocol Heparin Sodium (Porcine) (Heparin) 5,000 units SC Q8 [facility] Last Admin: 05/23/18 14:55 Dose: Not Given Levetiracetam 1,000 mg/ Sodium (Chloride) 110 mls @ 420 mls/hr IVPB Q12H [facility] Last Admin: 05/23/18 10:31 Dose: 420 mls/hr Metronidazole (Flagyl) 500 mg in 100 mls @ 100 mls/hr IVPB Q8H [facility]; Protocol Last Admin: 05/23/18 12:34 Dose: 100 mls/hr Meropenem 1 gm/ Sodium (Chloride) 100 mls @ 200 mls/hr IVPB Q8H [facility]; Protocol Last Admin: 05/23/18 11:51 Dose: 200 mls/hr Dextrose (Dextrose 5% In Water 1000 Ml) 1,000 mls @ 50 mls/hr IV .Q20H [facility] Last Admin: 05/23/18 14:55 Dose: Not Given Ibuprofen (Motrin Oral Susp) 200 mg PO Q6H PRN PRN Reason: Fever >100.4 F Last Admin: 05/23/18 09:58 Dose: 200 mg Insulin Aspart (Novolog) 0 unit SC Q6 [facility]; Protocol Last Admin: 05/23/18 12:35 Dose: 3 units Insulin Glargine (Lantus) 30 unit SC [facility] Last Admin: 05/22/18 22:37 Dose: 30 u Labetalol HCl (Trandate) 10 mg IVP Q4H PRN PRN Reason: Systolic Blood Pressure Last Admin: 05/16/18 11:45 Dose: 10 mg Lactulose (Enulose) 20 gm PO DAILY PRN PRN Reason: Constipation Last Admin: 05/23/18 09:58 Dose: 20 gm Lorazepam (Ativan) 1 mg IVP Q4 PRN PRN Reason: Restlessness Last Admin: 05/23/18 01:37 Dose: 1 mg Metoprolol Tartrate (Lopressor) 75 mg PO BID [facility] Last Admin: 05/23/18 09:59 Dose: 75 mg Morphine Sulfate (Morphine) 2 mg IVP Q4 PRN PRN Reason: Pain, moderate (4-7) Last Admin: 05/23/18 16:31 Dose: 2 mg Rosuvastatin Calcium (Crestor) 5 mg PO [facility] Last Admin: 05/22/18 21:07 Dose: 5 mg Senna/Docusate Sodium (Senokot S 50 Mg-8.6 Mg) 1 tab PO BID [facility] Last Admin: 05/23/18 09:59 Dose: 1 tab Vitamin A (Vitamin A & D Oint Ud Foilpak) 1 ea TOP BID PRN PRN Reason: Dry skin Last Admin: 05/20/18 06:50 Dose: 1 ea - Labs Labs: 05/23/18 07:46 05/23/18 07:46 PT 14.7 SECONDS (9.7-12.2) H 05/16/18 11:28 INR 1.3 05/16/18 11:28 APTT 35 SECONDS (21-34) H 05/16/18 11:28 Attending/Attestation - Attestation I have personally seen and examined this patient.: Yes I have fully participated in the care of the patient.: Yes I have reviewed all pertinent clinical information, including history, physical exam and plan: Yes Notes (Text): 05/23/18 17:54 Medical attending: Patient was seen and examined by me. Agree with the above note by the resident Patient's family members including her were at bedside today and we explained to them in both [place]olan and Croatian a recent update. They understand that the prognisis is poor and that there has been extensive brain damage already Yann Sheikh
[2018-05-23] MEDS: (Lantus) Insulin Glargine, Recombinant SC SCH (22:48)
[2018-05-24] MEDS: (Novolog) Insulin Aspart, Recombinant 100 u/ml 10 ml vial SC SCH ×4 (00:25→18:02)
[2018-05-24] MEDS: Meropenem 1 GM in Sodium Chloride 0.9% 100 ML IVPB SCH ×3 (02:17→18:17)
[2018-05-24] MEDS: metroNIDAZOLE IV 500 mg/100 ml 500 MG/100 ML BAG IVPB SCH ×3 (03:00→21:29)
[2018-05-24] MEDS: Acetylcysteine 20% Inhal Soln (4ml) INH SCH ×5 (03:08→21:42)
[2018-05-24] MEDS: Albuterol-Ipratrop 3 mg / 0.5 (3 ml) UD INH SCH ×5 (03:08→21:42)
[2018-05-24 07:04] LABS: BASO # 0.1 K/uL (0.0-0.2); BASO % 0.7 % (0.0-2.0); EOS # 0.6 K/uL (0.0-0.7); EOS % 5.9 % (0.0-4.0); HEMOGLOBIN 8.6 g/dL (11.0-16.0); LYMPH # 2.2 K/uL (1.0-4.3); LYMPH % 22.3 % (20.0-40.0); MEAN CELL VOLUME 81.7 fL (81.0-99.0); MONO # 1.1 K/uL (0.0-0.8); MONO % 11.3 % (0.0-10.0); NEUT # 5.8 K/uL (1.8-7.0); NEUT % 59.8 % (50.0-75.0); RBC 3.2 Mil/uL (3.80-5.20); WHITE BLOOD COUNT 9.8 K/uL (4.8-10.8)
[2018-05-24 08:12] LABS: ALB/GLOB RATIO 0.7 (1.0-2.1); ALBUMIN 2.5 g/dL (3.5-5.0); ALT/SGPT 39 U/L (9-52); AST/SGOT 64 U/L (14-36); BLOOD UREA NITROGEN 16 mg/dL (7-17); CALCIUM 7.9 mg/dl (8.6-10.4); GFR NON-AFRICAN AMERICAN 52
--- NOTE | 2018-05-24 08:58 | CP.PCM.PN ---
<AlexandroRios - Last Filed: 05/24/18 15:35> Subjective - Date & Time of Evaluation Date of Evaluation: 05/24/18 Time of Evaluation: 09:00 - Subjective Subjective: PGY-1 Medicine progress note Pt was seen and evaluated at bedside. Pt has tracheotomy tube with ventilator and PEG tube is in place. No acute events overnight. ROS is unobtainable due to AMS. She remains nonverbal, unable to respond to commands. She turns her head and blinks eyes spontaneously. Pt's sister is at bedside. Objective - Vital Signs/Intake and Output Vital Signs (last 24 hours): Temp Pulse Resp BP Pulse Ox 97.5 F L 82 20 109/73 97 05/24/18 08:24 05/24/18 08:24 05/24/18 08:24 05/24/18 08:24 05/24/18 08:24 Intake and Output: 05/24/18 05/24/18 06:59 18:59 Intake Total 640 640 Output Total 600 550 Balance 40 90 - Medications Medications: Current Medications Acetaminophen (Tylenol 650 Mg Supp) 650 mg [place] Q6 PRN PRN Reason: Fever >100.4 F Last Admin: 05/23/18 00:19 Dose: 650 mg Acetylcysteine (Acetylcysteine 20%) 4 ml INH RQ4 [facility] Last Admin: 05/24/18 08:25 Dose: 4 ml Albuterol/Ipratropium (Duoneb 3 Mg/0.5 Mg (3 Ml) Ud) 3 ml INH RQ4 [facility] Last Admin: 05/24/18 08:25 Dose: 3 ml Amlodipine Besylate (Norvasc) 10 mg PO DAILY [facility] Last Admin: 05/23/18 09:59 Dose: 10 mg Aspirin (Aspirin Chewable) 81 mg PO DAILY [facility] Last Admin: 05/22/18 10:09 Dose: 81 mg Bisacodyl (Dulcolax) 10 mg [place] TID PRN PRN Reason: Constipation Last Admin: 05/10/18 09:45 Dose: 10 mg Clopidogrel Bisulfate (Plavix) 75 mg PO DAILY [facility] Last Admin: 05/22/18 10:07 Dose: 75 mg Dextrose (Dextrose 50% Inj) 0 ml IV STAT PRN; Protocol PRN Reason: Hypoglycemia Protocol Dextrose (Glutose 15) 15 gm PO ONCE PRN; Protocol PRN Reason: Hypoglycemia Protocol Famotidine (Pepcid) 20 mg IVP Q12 [facility] Last Admin: 05/23/18 22:47 Dose: 20 mg Glucagon (Glucagen Diagnostic Kit) 1 mg IM STAT PRN; Protocol PRN Reason: Hypoglycemia Protocol Heparin Sodium (Porcine) (Heparin) 5,000 units SC Q8 [facility] Last Admin: 05/23/18 14:55 Dose: Not Given Levetiracetam 1,000 mg/ Sodium (Chloride) 110 mls @ 420 mls/hr IVPB Q12H [facility] Last Admin: 05/23/18 22:50 Dose: 420 mls/hr Metronidazole (Flagyl) 500 mg in 100 mls @ 100 mls/hr IVPB Q8H [facility]; Protocol Last Admin: 05/24/18 03:00 Dose: 100 mls/hr Meropenem 1 gm/ Sodium (Chloride) 100 mls @ 200 mls/hr IVPB Q8H [facility]; Protocol Last Admin: 05/24/18 02:17 Dose: 200 mls/hr Dextrose (Dextrose 5% In Water 1000 Ml) 1,000 mls @ 50 mls/hr IV .Q20H [facility] Last Admin: 05/23/18 14:55 Dose: Not Given Ibuprofen (Motrin Oral Susp) 200 mg PO Q6H PRN PRN Reason: Fever >100.4 F Last Admin: 05/23/18 17:56 Dose: 200 mg Insulin Aspart (Novolog) 0 unit SC Q6 [facility]; Protocol Last Admin: 05/24/18 06:45 Dose: 4 units Insulin Glargine (Lantus) 30 unit SC HS [facility] Last Admin: 05/23/18 22:48 Dose: 30 u Labetalol HCl (Trandate) 10 mg IVP Q4H PRN PRN Reason: Systolic Blood Pressure Last Admin: 05/16/18 11:45 Dose: 10 mg Lactulose (Enulose) 20 gm PO DAILY PRN PRN Reason: Constipation Last Admin: 05/23/18 09:58 Dose: 20 gm Lorazepam (Ativan) 1 mg IVP Q4 PRN PRN Reason: Restlessness Last Admin: 05/24/18 00:44 Dose: 1 mg Metoprolol Tartrate (Lopressor) 75 mg PO BID [facility] Last Admin: 05/23/18 17:55 Dose: 75 mg Morphine Sulfate (Morphine) 2 mg IVP Q4 PRN PRN Reason: Pain, moderate (4-7) Last Admin: 05/23/18 16:31 Dose: 2 mg Rosuvastatin Calcium (Crestor) 5 mg PO HS [facility] Last Admin: 05/23/18 22:47 Dose: 5 mg Senna/Docusate Sodium (Senokot S 50 Mg-8.6 Mg) 1 tab PO BID [facility] Last Admin: 05/23/18 17:55 Dose: 1 tab Vitamin A (Vitamin A & D Oint Ud Foilpak) 1 ea TOP BID PRN PRN Reason: Dry skin Last Admin: 05/20/18 06:50 Dose: 1 ea - Labs Labs: 05/24/18 06:43 05/24/18 06:43 PT 14.7 SECONDS (9.7-12.2) H 05/16/18 11:28 INR 1.3 05/16/18 11:28 APTT 35 SECONDS (21-34) H 05/16/18 11:28 - Constitutional Appears: No Acute Distress - Head Exam Head Exam: ATRAUMATIC, NORMAL INSPECTION - Eye Exam Eye Exam: EOMI Pupil Exam: PERRL (bilaterally) - ENT Exam ENT Exam: Mucous Membranes Moist - Neck Exam Additional comments: (+) tracheostomy tube; (-) signs of bleeding or infection - Respiratory Exam Respiratory Exam: Clear to Ausculation Bilateral (ventilator breath sounds). absent: Rales, Rhonchi, Wheezes - Cardiovascular Exam Cardiovascular Exam: REGULAR RHYTHM, +S1, +S2 - GI/Abdominal Exam GI & Abdominal Exam: Soft, Normal Bowel Sounds. absent: Distended, Firm, Guarding, Rigid, Tenderness Additional comments: (+) PEG tube, without signs of bleeding or infection - Extremities Exam Extremities Exam: Normal Capillary Refill. absent: Calf Tenderness, Pedal Edema - Neurological Exam Neurological Exam: Awake Additional comments: GCS=6 Eyes open spontanously but not purposefully; unresponsive to verbal or painful stimuli Nonverbal Cannot follow commands - Skin Skin Exam: Dry, Normal Color, Warm Assessment and Plan - Assessment and Plan (Free Text) Assessment: A/P Respiratory Failure - Due to Asphyxiation/Possible Suicide Attempt - Intubated, on vent @FiO2 40 - s/p tracheotomy - s/p G tube repositioning 05/16 - Mucomyst Q4 - Duonebs Q4 Leukocytosis - resolved, pt is afebrile, not tachycardic - rpt CXR 05/21: slightly low lung volumes with mild crowded bronchovascular markings and minor bibasilar atelectases - 05/17 rpt BCx: neg - 05/13/ rpt UCx: yeast - Blood cx 05/21 negative - UA: leuk est 3+, +WBC, +RBC, nitrate - - BCx 05/02/18: negative - UCx 05/06/18: negative - Tracheal Aspirate Cx 05/08/18: yeast - colindres changed 05/17 - cooling blanket - ice packs PRN fever - Doppler b/l UE and LE: negative for DVTs - Flagyl 500 mg IV Q8H - Meropenem 500 mg IV Q8H Anoxic Brain Injury - rpt EEG: severe non specific diffuse distrubances in cortical activity, brown matter dysfunction - EEG 05/04: diffuse encephalopathy with burst suppression. - Repeat CT head: no bleeding - MRI Brain: subacute favored over acute cerebral hypoxic insult with minimal involvement of the lower haris and the cerebellar hemispheres - keppra 1,000 mg IV Q12H - Ativan 1mg q4h PRN - Neurology consulted, Dr. Duff/Guilherme - GCS is 6; unresponsive to painful stimuli, nonverbal, eyes open spontaneously - continue to monitor NSTEMI - Elevated troponin - ASA 81 mg PO daily (held - given drop in Hb) - Plavix 75mg PO daily (held - given drop in Hb) - hold Crestor 5 mg PO daily - Cardiology consulted, Dr Gay Transaminitis - Likely shock liver - Follow LFTs DM - Lantus 10 Units SC - Aspart ISS Q6H ARF - Likely Secondary to ATN with Hypernatremia - BUN/Cr have improved - Nephrology consulted, Dr. Samuels HTN - Metoprolol Tartrate 75 mg PO BID - Norvasc 5 mg PO 1x/day - Labetalol 10 mg IV Q4H PRN SBP > 140 PPx Heparin 5,000 Units SC Q8H (held given drop in Hb) Pepcid 20mg Q12 [facility] Feeding reduced to 30cc/hr. Aspiration precautions Seizure precautions suction PRN D5W @ 50cc/hr IV Turn and reposition q2h PT/OT Dispo: SW reports that pt may have insurance from who is [place] citizen, will look for placement. Case discussed with Dr. Caden Mc, PGY1 <Emmett Negrete - Last Filed: 05/24/18 16:46> Objective - Vital Signs/Intake and Output Vital Signs (last 24 hours): Temp Pulse Resp BP Pulse Ox 97.5 F L 82 20 109/73 97 05/24/18 08:24 05/24/18 08:24 05/24/18 08:24 05/24/18 10:36 05/24/18 08:24 Intake and Output: 05/24/18 05/24/18 06:59 18:59 Intake Total 640 1280 Output Total 600 550 Balance 40 730 - Medications Medications: Current Medications Acetaminophen (Tylenol 650 Mg Supp) 650 mg [place] Q6 PRN PRN Reason: Fever >100.4 F Last Admin: 05/23/18 00:19 Dose: 650 mg Acetylcysteine (Acetylcysteine 20%) 4 ml INH RQ4 [facility] Last Admin: 05/24/18 16:07 Dose: 4 ml Albuterol/Ipratropium (Duoneb 3 Mg/0.5 Mg (3 Ml) Ud) 3 ml INH RQ4 [facility] Last Admin: 05/24/18 16:07 Dose: 3 ml Amlodipine Besylate (Norvasc) 10 mg PO DAILY [facility] Last Admin: 05/24/18 10:36 Dose: 10 mg Aspirin (Aspirin Chewable) 81 mg PO DAILY [facility] Last Admin: 05/22/18 10:09 Dose: 81 mg Bisacodyl (Dulcolax) 10 mg [place] TID PRN PRN Reason: Constipation Last Admin: 05/10/18 09:45 Dose: 10 mg Clopidogrel Bisulfate (Plavix) 75 mg PO DAILY [facility] Last Admin: 05/22/18 10:07 Dose: 75 mg Dextrose (Dextrose 50% Inj) 0 ml IV STAT PRN; Protocol PRN Reason: Hypoglycemia Protocol Dextrose (Glutose 15) 15 gm PO ONCE PRN; Protocol PRN Reason: Hypoglycemia Protocol Famotidine (Pepcid) 20 mg IVP Q12 [facility] Last Admin: 05/24/18 10:36 Dose: 20 mg Glucagon (Glucagen Diagnostic Kit) 1 mg IM STAT PRN; Protocol PRN Reason: Hypoglycemia Protocol Heparin Sodium (Porcine) (Heparin) 5,000 units SC Q8 [facility] Last Admin: 05/23/18 14:55 Dose: Not Given Levetiracetam 1,000 mg/ Sodium (Chloride) 110 mls @ 420 mls/hr IVPB Q12H [facility] Last Admin: 05/24/18 10:37 Dose: 420 mls/hr Metronidazole (Flagyl) 500 mg in 100 mls @ 100 mls/hr IVPB Q8H [facility]; Protocol Last Admin: 05/24/18 13:20 Dose: 100 mls/hr Meropenem 1 gm/ Sodium (Chloride) 100 mls @ 200 mls/hr IVPB Q8H [facility]; Protocol Last Admin: 05/24/18 12:06 Dose: 200 mls/hr Dextrose (Dextrose 5% In Water 1000 Ml) 1,000 mls @ 50 mls/hr IV .Q20H [facility] Last Admin: 05/24/18 10:53 Dose: 50 mls/hr Ibuprofen (Motrin Oral Susp) 200 mg PO Q6H PRN PRN Reason: Fever >100.4 F Last Admin: 05/24/18 13:27 Dose: 200 mg Insulin Aspart (Novolog) 0 unit SC Q6 [facility]; Protocol Last Admin: 05/24/18 12:30 Dose: 3 units Insulin Glargine (Lantus) 30 unit SC [facility] Last Admin: 05/23/18 22:48 Dose: 30 u Labetalol HCl (Trandate) 10 mg IVP Q4H PRN PRN Reason: Systolic Blood Pressure Last Admin: 05/16/18 11:45 Dose: 10 mg Lactulose (Enulose) 20 gm PO DAILY PRN PRN Reason: Constipation Last Admin: 05/23/18 09:58 Dose: 20 gm Lorazepam (Ativan) 1 mg IVP Q4 PRN PRN Reason: Restlessness Last Admin: 05/24/18 00:44 Dose: 1 mg Metoprolol Tartrate (Lopressor) 75 mg PO BID [facility] Last Admin: 05/24/18 10:36 Dose: 75 mg Rosuvastatin Calcium (Crestor) 5 mg PO [facility] Last Admin: 05/23/18 22:47 Dose: 5 mg Senna/Docusate Sodium (Senokot S 50 Mg-8.6 Mg) 1 tab PO BID [facility] Last Admin: 05/24/18 10:36 Dose: 1 tab Vitamin A (Vitamin A & D Oint Ud Foilpak) 1 ea TOP BID PRN PRN Reason: Dry skin Last Admin: 05/20/18 06:50 Dose: 1 ea - Labs Labs: 05/24/18 06:43 05/24/18 06:43 PT 14.7 SECONDS (9.7-12.2) H 05/16/18 11:28 INR 1.3 05/16/18 11:28 APTT 35 SECONDS (21-34) H 05/16/18 11:28 Attending/Attestation - Attestation I have personally seen and examined this patient.: Yes I have fully participated in the care of the patient.: Yes I have reviewed all pertinent clinical information, including history, physical exam and plan: Yes Notes (Text): seen and examined,patient is awake ,not following commands,noted with spont aneous head movements persistent fever spikes on Merrem and flagyl blood cultures negative,chest x ray without infiltratrate,UA unremarkable we will continue MV support continue antibiotics pending discharge to [facility] facility I agree with the resident's documentation
[2018-05-24] MEDS: Docusate-Senna 50 mg-8.6 mg Tab PO SCH ×2 (10:36→18:46)
[2018-05-24] MEDS: levETIRAcetam 1,000 MG in Sodium Chloride 0.9% 100 ML IVPB SCH ×2 (10:37→22:44)
[2018-05-24] MEDS: (Lantus) Insulin Glargine, Recombinant SC SCH (22:44)
[2018-05-25] MEDS: (Novolog) Insulin Aspart, Recombinant 100 u/ml 10 ml vial SC SCH ×4 (00:12→17:33)
[2018-05-25] MEDS: Albuterol-Ipratrop 3 mg / 0.5 (3 ml) UD INH SCH ×7 (01:00→23:47)
[2018-05-25] MEDS: Acetylcysteine 20% Inhal Soln (4ml) INH SCH ×7 (01:00→23:47)
[2018-05-25] MEDS: Meropenem 1 GM in Sodium Chloride 0.9% 100 ML IVPB SCH ×3 (02:26→18:45)
[2018-05-25] MEDS: metroNIDAZOLE IV 500 mg/100 ml 500 MG/100 ML BAG IVPB SCH ×3 (04:42→20:56)
[2018-05-25 07:17] LABS: BASO % 0.4 % (0.0-2.0); EOS # 0.3 K/uL (0.0-0.7); EOS % 3.7 % (0.0-4.0); HEMOGLOBIN 8.4 g/dL (11.0-16.0); LYMPH # 1.3 K/uL (1.0-4.3); LYMPH % 15.9 % (20.0-40.0); MEAN CELL VOLUME 82.7 fL (81.0-99.0); MEAN CORPUSCULAR HEMOGLOBIN 27.3 pg (27.0-31.0); MEAN PLATELET VOLUME 12.8 fL (7.2-11.7); MONO # 0.8 K/uL (0.0-0.8); MONO % 10.3 % (0.0-10.0); NEUT # 5.7 K/uL (1.8-7.0); NEUT % 69.7 % (50.0-75.0); RBC 3.09 Mil/uL (3.80-5.20); RED CELL DISTRIBUTION WIDTH 16.1 % (11.5-14.5); WHITE BLOOD COUNT 8.2 K/uL (4.8-10.8)
[2018-05-25 07:39] LABS: BLOOD UREA NITROGEN 17 mg/dL (7-17); GFR NON-AFRICAN AMERICAN 52
[2018-05-25 07:40] LABS: ALB/GLOB RATIO 0.7 (1.0-2.1); ALBUMIN 2.6 g/dL (3.5-5.0); ALT/SGPT 35 U/L (9-52); AST/SGOT 55 U/L (14-36); CALCIUM 7.9 mg/dl (8.6-10.4)
--- NOTE | 2018-05-25 09:30 | CP.PCM.PN ---
<Rios Mc - Last Filed: 05/25/18 13:34> Subjective - Date & Time of Evaluation Date of Evaluation: 05/25/18 Time of Evaluation: 09:30 - Subjective Subjective: PGY-1 Medicine progress note Pt was seen and evaluated at bedside. Pt has tracheotomy tube with ventilator and PEG tube is in place. As per nurse, pt had fever yesterday late afternoon (tmax 101), which has been responsive to Motrin and ice packs. Pt also noted to be belly breathing during nursing examination this morning, as well as increased facial grimacing. Nursing notes that the peak airway pressure is at 60 at times. RT has tried to suction, but with no material was suctioned. Pt is receiving duonebs scheduled. I ordered a stat CXR. ROS is unobtainable due to AMS. She remains nonverbal, unable to respond to commands. Pt's sister is at bedside. Objective - Vital Signs/Intake and Output Vital Signs (last 24 hours): Temp Pulse Resp BP Pulse Ox 99.7 F H 92 H 20 133/67 100 05/25/18 07:52 05/25/18 07:52 05/25/18 07:52 05/25/18 07:52 05/25/18 07:52 Intake and Output: 05/25/18 05/25/18 06:59 18:59 Intake Total 1680 Output Total 950 Balance 730 - Medications Medications: Current Medications Acetaminophen (Tylenol 650 Mg Supp) 650 mg [place] Q6 PRN PRN Reason: Fever >100.4 F Last Admin: 05/23/18 00:19 Dose: 650 mg Acetylcysteine (Acetylcysteine 20%) 4 ml INH RQ4 [facility] Last Admin: 05/25/18 08:04 Dose: 4 ml Albuterol/Ipratropium (Duoneb 3 Mg/0.5 Mg (3 Ml) Ud) 3 ml INH RQ4 [facility] Last Admin: 05/25/18 08:04 Dose: 3 ml Amlodipine Besylate (Norvasc) 10 mg PO DAILY [facility] Last Admin: 05/24/18 10:36 Dose: 10 mg Aspirin (Aspirin Chewable) 81 mg PO DAILY [facility] Last Admin: 05/22/18 10:09 Dose: 81 mg Bisacodyl (Dulcolax) 10 mg [place] TID PRN PRN Reason: Constipation Last Admin: 05/10/18 09:45 Dose: 10 mg Clopidogrel Bisulfate (Plavix) 75 mg PO DAILY [facility] Last Admin: 05/22/18 10:07 Dose: 75 mg Dextrose (Dextrose 50% Inj) 0 ml IV STAT PRN; Protocol PRN Reason: Hypoglycemia Protocol Dextrose (Glutose 15) 15 gm PO ONCE PRN; Protocol PRN Reason: Hypoglycemia Protocol Famotidine (Pepcid) 20 mg IVP Q12 [facility] Last Admin: 05/24/18 22:45 Dose: 20 mg Glucagon (Glucagen Diagnostic Kit) 1 mg IM STAT PRN; Protocol PRN Reason: Hypoglycemia Protocol Heparin Sodium (Porcine) (Heparin) 5,000 units SC Q8 [facility] Last Admin: 05/23/18 14:55 Dose: Not Given Levetiracetam 1,000 mg/ Sodium (Chloride) 110 mls @ 420 mls/hr IVPB Q12H [facility] Last Admin: 05/24/18 22:44 Dose: 420 mls/hr Metronidazole (Flagyl) 500 mg in 100 mls @ 100 mls/hr IVPB Q8H [facility]; Protocol Last Admin: 05/25/18 04:42 Dose: 100 mls/hr Meropenem 1 gm/ Sodium (Chloride) 100 mls @ 200 mls/hr IVPB Q8H [facility]; Protocol Last Admin: 05/25/18 02:26 Dose: 200 mls/hr Dextrose (Dextrose 5% In Water 1000 Ml) 1,000 mls @ 50 mls/hr IV .Q20H [facility] Last Admin: 05/25/18 05:53 Dose: Not Given Ibuprofen (Motrin Oral Susp) 200 mg PO Q6H PRN PRN Reason: Fever >100.4 F Last Admin: 05/25/18 05:05 Dose: 200 mg Insulin Aspart (Novolog) 0 unit SC Q6 [facility]; Protocol Last Admin: 05/25/18 05:56 Dose: 4 units Insulin Glargine (Lantus) 30 unit SC HS [facility] Last Admin: 05/24/18 22:44 Dose: 30 u Labetalol HCl (Trandate) 10 mg IVP Q4H PRN PRN Reason: Systolic Blood Pressure Last Admin: 05/16/18 11:45 Dose: 10 mg Lactulose (Enulose) 20 gm PO DAILY PRN PRN Reason: Constipation Last Admin: 05/23/18 09:58 Dose: 20 gm Lorazepam (Ativan) 1 mg IVP Q4 PRN PRN Reason: Restlessness Last Admin: 05/25/18 01:40 Dose: 1 mg Metoprolol Tartrate (Lopressor) 75 mg PO BID [facility] Last Admin: 05/24/18 18:01 Dose: 75 mg Morphine Sulfate (Morphine) 2 mg IVP Q4 PRN PRN Reason: Pain, moderate (4-7) Last Admin: 05/25/18 07:57 Dose: 2 mg Rosuvastatin Calcium (Crestor) 5 mg PO HS [facility] Last Admin: 05/24/18 22:44 Dose: 5 mg Senna/Docusate Sodium (Senokot S 50 Mg-8.6 Mg) 1 tab PO BID [facility] Last Admin: 05/24/18 18:46 Dose: 1 tab Vitamin A (Vitamin A & D Oint Ud Foilpak) 1 ea TOP BID PRN PRN Reason: Dry skin Last Admin: 05/20/18 06:50 Dose: 1 ea - Labs Labs: 05/25/18 07:06 05/25/18 07:06 PT 14.7 SECONDS (9.7-12.2) H 05/16/18 11:28 INR 1.3 05/16/18 11:28 APTT 35 SECONDS (21-34) H 05/16/18 11:28 - Constitutional Appears: Non-toxic, No Acute Distress - Head Exam Head Exam: ATRAUMATIC, NORMAL INSPECTION - Eye Exam Eye Exam: PERRL (bilaterally) - ENT Exam ENT Exam: Mucous Membranes Moist - Neck Exam Additional comments: (+) tracheostomy tube; (-) signs of bleeding or infection - Respiratory Exam Respiratory Exam: Rhonchi (throughout). absent: Wheezes Additional comments: On tracheostomy, on ventilator 40%/5 peep/10 RR/500 Vt - Cardiovascular Exam Cardiovascular Exam: Tachycardia, +S1, +S2 - GI/Abdominal Exam GI & Abdominal Exam: Distended (typmanic). absent: Soft Additional comments: (+) PEG tube, without signs of bleeding or infection; (+) some serous oozing at site - Extremities Exam Extremities Exam: Normal Inspection - Neurological Exam Neurological Exam: Awake Additional comments: GCS=6 Eyes open spontanously but not purposefully; unresponsive to verbal or painful stimuli Nonverbal Cannot follow commands, but moves all extremities spontaneously - Skin Skin Exam: Dry, Normal Color, Warm Additional comments: (+) 3cm x 3cm circular ulcer to the distal radius, with eschar Assessment and Plan - Assessment and Plan (Free Text) Assessment: A/P Respiratory Failure - Due to Asphyxiation/Possible Suicide Attempt - tracheostomy on vent @FiO2 40 - s/p tracheotomy - s/p G tube repositioning 05/16 - Mucomyst Q4 - Duonebs Q4 - 05/25: peak airway pressure elevation noted intermittently (up to 60), pt a lready receiving duonebs, CXR (05/25) shows no pneumothorax, effusion. -Dr. Brennan, pulmonology, will evaluate the pt Leukocytosis - resolved, pt is afebrile, not tachycardic - rpt CXR 05/21: slightly low lung volumes with mild crowded bronchovascular markings and minor bibasilar atelectases - 05/17 rpt BCx: neg - 05/13/ rpt UCx: yeast - Blood cx 05/21 negative - UA: leuk est 3+, +WBC, +RBC, nitrate - - BCx 05/02/18: negative - UCx 05/06/18: negative - Tracheal Aspirate Cx 05/08/18: yeast - colindres changed 05/17 - cooling blanket - ice packs PRN fever - Doppler b/l UE and LE: negative for DVTs - Flagyl 500 mg IV Q8H - Meropenem 500 mg IV Q8H Anoxic Brain Injury - rpt EEG: severe non specific diffuse distrubances in cortical activity, brown matter dysfunction - EEG 05/04: diffuse encephalopathy with burst suppression. - Repeat CT head: no bleeding - MRI Brain: subacute favored over acute cerebral hypoxic insult with minimal involvement of the lower haris and the cerebellar hemispheres - keppra 1,000 mg IV Q12H - Ativan 1mg q4h PRN - Neurology consulted, Dr. Duff/Guilherme - GCS is 6; unresponsive to painful stimuli, nonverbal, eyes open spontaneously - continue to monitor NSTEMI - Elevated troponin - has normalized - ASA 81 mg PO daily (restarted 05/25) - Plavix 75mg PO daily (held - given drop in Hb) - hold Crestor 5 mg PO daily - Cardiology consulted, Dr Victor Hugo Transaminitis - Likely shock liver - Follow LFTs DM - Lantus 10 Units SC - Aspart ISS Q6H ARF - Likely Secondary to ATN with Hypernatremia - BUN/Cr have improved - Nephrology consulted, Dr. Samuels HTN - Metoprolol Tartrate 75 mg PO BID - Norvasc 5 mg PO 1x/day - Labetalol 10 mg IV Q4H PRN SBP > 140 PPx Heparin 5,000 Units SC Q8H (restarted 05/25) Pepcid 20mg Q12 05/25 GT Feeding reduced to 30cc/hr on hold due to abdominal distension Aspiration precautions Seizure precautions suction PRN D5W @ 50cc/hr IV Turn and reposition q2h PT/OT Dispo: SW reports that pt may have insurance from who is [place] citizen, will look for placement. Case discussed with Dr. Caden Mc, PGY1 <Emmett Negrete - Last Filed: 05/26/18 09:43> Objective - Vital Signs/Intake and Output Vital Signs (last 24 hours): Temp Pulse Resp BP Pulse Ox 99.4 F 74 20 100/59 L 100 05/26/18 08:16 05/26/18 08:16 05/26/18 08:16 05/26/18 08:16 05/26/18 08:16 Intake and Output: 05/26/18 05/26/18 06:59 18:59 Intake Total 1390 Output Total 951 Balance 439 - Medications Medications: Current Medications Acetaminophen (Tylenol 650 Mg Supp) 650 mg [place] Q6 PRN PRN Reason: Fever >100.4 F Last Admin: 05/23/18 00:19 Dose: 650 mg Acetylcysteine (Acetylcysteine 20%) 4 ml INH RQ4 [facility] Last Admin: 05/26/18 07:52 Dose: 4 ml Albuterol/Ipratropium (Duoneb 3 Mg/0.5 Mg (3 Ml) Ud) 3 ml INH RQ4 [facility] Last Admin: 05/26/18 07:53 Dose: 3 ml Amlodipine Besylate (Norvasc) 10 mg PO DAILY [facility] Last Admin: 05/25/18 10:28 Dose: 10 mg Aspirin (Aspirin Chewable) 81 mg PO DAILY [facility] Last Admin: 05/22/18 10:09 Dose: 81 mg Bisacodyl (Dulcolax) 10 mg [place] TID PRN PRN Reason: Constipation Last Admin: 05/10/18 09:45 Dose: 10 mg Clopidogrel Bisulfate (Plavix) 75 mg PO DAILY [facility] Last Admin: 05/22/18 10:07 Dose: 75 mg Dextrose (Dextrose 50% Inj) 0 ml IV STAT PRN; Protocol PRN Reason: Hypoglycemia Protocol Dextrose (Glutose 15) 15 gm PO ONCE PRN; Protocol PRN Reason: Hypoglycemia Protocol Famotidine (Pepcid) 20 mg IVP Q12 [facility] Last Admin: 05/25/18 22:02 Dose: 20 mg Glucagon (Glucagen Diagnostic Kit) 1 mg IM STAT PRN; Protocol PRN Reason: Hypoglycemia Protocol Heparin Sodium (Porcine) (Heparin) 5,000 units SC Q8 [facility] Last Admin: 05/26/18 06:02 Dose: 5,000 units Levetiracetam 1,000 mg/ Sodium (Chloride) 110 mls @ 420 mls/hr IVPB Q12H [facility] Last Admin: 05/25/18 22:42 Dose: 420 mls/hr Metronidazole (Flagyl) 500 mg in 100 mls @ 100 mls/hr IVPB Q8H [facility]; Protocol Last Admin: 05/26/18 03:08 Dose: 100 mls/hr Meropenem 1 gm/ Sodium (Chloride) 100 mls @ 200 mls/hr IVPB Q8H [facility]; Protocol Last Admin: 05/26/18 02:35 Dose: 200 mls/hr Dextrose (Dextrose 5% In Water 1000 Ml) 1,000 mls @ 50 mls/hr IV .Q20H [facility] Last Admin: 05/26/18 05:58 Dose: 50 mls/hr Ibuprofen (Motrin Oral Susp) 200 mg PO Q6H PRN PRN Reason: Fever >100.4 F Last Admin: 05/26/18 06:28 Dose: 200 mg Insulin Aspart (Novolog) 0 unit SC Q6 [facility]; Protocol Last Admin: 05/26/18 05:59 Dose: Not Given Insulin Glargine (Lantus) 30 unit SC HS [facility] Last Admin: 05/25/18 22:12 Dose: 30 u Labetalol HCl (Trandate) 10 mg IVP Q4H PRN PRN Reason: Systolic Blood Pressure Last Admin: 05/16/18 11:45 Dose: 10 mg Lactulose (Enulose) 20 gm PO DAILY PRN PRN Reason: Constipation Last Admin: 05/25/18 16:55 Dose: 20 gm Lorazepam (Ativan) 2 mg IVP Q3 PRN PRN Reason: Agitation Last Admin: 05/25/18 20:57 Dose: 2 mg Metoprolol Tartrate (Lopressor) 75 mg PO BID [facility] Last Admin: 05/25/18 17:31 Dose: 75 mg Morphine Sulfate (Morphine) 2 mg IVP Q4 PRN PRN Reason: Pain, moderate (4-7) Last Admin: 05/26/18 06:01 Dose: 2 mg Rosuvastatin Calcium (Crestor) 5 mg PO HS [facility] Last Admin: 05/25/18 21:57 Dose: Not Given Senna/Docusate Sodium (Senokot S 50 Mg-8.6 Mg) 1 tab PO BID [facility] Last Admin: 05/25/18 17:31 Dose: 1 tab Vitamin A (Vitamin A & D Oint Ud Foilpak) 1 ea TOP BID PRN PRN Reason: Dry skin Last Admin: 05/20/18 06:50 Dose: 1 ea - Labs Labs: 05/26/18 07:36 05/26/18 07:36 PT 14.7 SECONDS (9.7-12.2) H 05/16/18 11:28 INR 1.3 05/16/18 11:28 APTT 35 SECONDS (21-34) H 05/16/18 11:28 Attending/Attestation - Attestation I have personally seen and examined this patient.: Yes I have fully participated in the care of the patient.: Yes I have reviewed all pertinent clinical information, including history, physical exam and plan: Yes Notes (Text): seen and examined by me patient was having abdominal breathing,tachypnic and having frequent facial grimacing. noted to have peak airway pressure high chest x ray done . Its normal d/w Dr Brennan. Ativan dose increased d/w her sisiter at bedside Discussed with respiratory therapist continue monitor I agree with the resident's documentation
[2018-05-25] MEDS: Docusate-Senna 50 mg-8.6 mg Tab PO SCH ×2 (10:30→17:31)
--- NOTE | 2018-05-25 11:00 | RAD ---
Date of service: 05/25/2018 HISTORY: ventilator abnorm breah sounds COMPARISON: 05/21/2018 FINDINGS: LUNGS: No active pulmonary disease. Tracheostomy tube in position as before. PLEURA: No significant pleural effusion identified, no pneumothorax apparent. CARDIOVASCULAR: No aortic atherosclerotic calcification present. Normal cardiac size. No pulmonary vascular congestion. Right-sided PICC line present tip in superior vena cava right atrial junction-some slight retraction since prior exam suggested. Previously the tip appeared within the right atrium. OSSEOUS STRUCTURES: No significant abnormalities. VISUALIZED UPPER ABDOMEN: Normal. OTHER FINDINGS: None. IMPRESSION: Slight repositioning of the right PICC line tip appears at the superior vena cava right atrial junction on current exam. Interval changes perceived.
[2018-05-25] MEDS: levETIRAcetam 1,000 MG in Sodium Chloride 0.9% 100 ML IVPB SCH ×2 (11:04→22:42)
[2018-05-25] MEDS: (Lantus) Insulin Glargine, Recombinant SC SCH (22:12)
[2018-05-25] MEDS ORDERED: Morphine 4 MG/ML VIAL IVP STA (22:35)
[2018-05-25 22:50] LABS: ABG ALLEN TEST POS; ARTERIAL BLOOD GAS HCO3 23.4 mmol/L (21-28); ARTERIAL BLOOD GAS HEMOGLOBIN 9.4 g/dL (11.7-17.4); ARTERIAL BLOOD GAS O2 SAT 100.5 % (95-98); ARTERIAL BLOOD GAS PCO2 47 mm/Hg (35-45); ARTERIAL BLOOD GAS PH 7.32 (7.35-7.45); ARTERIAL BLOOD GAS PO2 465 mm/Hg (80-100); ARTERIAL BLOOD GAS TCO2 25.6 mmol/L (22-28)
[2018-05-26] MEDS: (Novolog) Insulin Aspart, Recombinant 100 u/ml 10 ml vial SC SCH ×5 (00:15→23:59)
[2018-05-26] MEDS: Meropenem 1 GM in Sodium Chloride 0.9% 100 ML IVPB SCH ×3 (02:35→20:00)
[2018-05-26] MEDS: metroNIDAZOLE IV 500 mg/100 ml 500 MG/100 ML BAG IVPB SCH ×3 (03:08→20:26)
[2018-05-26] MEDS: Albuterol-Ipratrop 3 mg / 0.5 (3 ml) UD INH SCH ×5 (04:06→20:46)
[2018-05-26 07:45] LABS: BASO # 0.1 K/uL (0.0-0.2); BASO % 0.6 % (0.0-2.0); EOS # 0.5 K/uL (0.0-0.7); EOS % 5.3 % (0.0-4.0); HEMOGLOBIN 8.4 g/dL (11.0-16.0); LYMPH # 1.9 K/uL (1.0-4.3); LYMPH % 19.6 % (20.0-40.0); MEAN CELL VOLUME 82.4 fL (81.0-99.0); MEAN CORPUSCULAR HEMOGLOBIN 26.7 pg (27.0-31.0); MEAN CORPUSCULAR HGB CONC 32.3 g/dL (33.0-37.0); MEAN PLATELET VOLUME 12.6 fL (7.2-11.7); MONO # 1.2 K/uL (0.0-0.8); MONO % 12.4 % (0.0-10.0); NEUT % 62.1 % (50.0-75.0); NRBC % 0.1 % (0.0-2.0); RBC 3.17 Mil/uL (3.80-5.20); RED CELL DISTRIBUTION WIDTH 16.4 % (11.5-14.5); WHITE BLOOD COUNT 9.6 K/uL (4.8-10.8)
[2018-05-26] MEDS: Acetylcysteine 20% Inhal Soln (4ml) INH SCH ×4 (07:52→20:46)
[2018-05-26 07:59] LABS: ALB/GLOB RATIO 0.7 (1.0-2.1); ALBUMIN 2.6 g/dL (3.5-5.0); ALT/SGPT 44 U/L (9-52); AST/SGOT 78 U/L (14-36); BLOOD UREA NITROGEN 17 mg/dL (7-17); CALCIUM 8.1 mg/dl (8.6-10.4); GFR NON-AFRICAN AMERICAN 58
--- NOTE | 2018-05-26 08:49 | RAD ---
Chest x-ray single frontal view HISTORY: Ventilator. COMPARISON: 05/25/2018 FINDINGS: Tracheostomy tube projects to the right midline likely related to patient rotation. Right PICC line with tip extending to the cavoatrial junction. Bibasilar breast and nipple shadows. Biapical pleural thickening. Mild venous congestion. Tortuous aorta. Heart size within normal limits. Degenerative changes in the spine. Impression: Tracheostomy tube projects to the right midline likely related to patient rotation. Right PICC line with tip extending to the cavoatrial junction. Bibasilar breast and nipple shadows. Biapical pleural thickening. Mild venous congestion.
--- NOTE | 2018-05-26 09:19 | CP.PCM.PN ---
<Michael Diaz M - Last Filed: 05/26/18 17:05> Subjective - Date & Time of Evaluation Date of Evaluation: 05/26/18 Time of Evaluation: 09:30 - Subjective Subjective: PGY1 Medicine progress note for Dr. Negrete. Pt was seen and evaluated at bedside. Pt has tracheotomy tube with ventilator and PEG tube is in place. As per nurse, pt had fever in AM Tmax 100.4, which has been responsive to Motrin and ice packs. Patient was breathing better with ventilator. ROS is unobtainable due to AMS. She remains nonverbal, unable to respond to commands. Pt's sister is at bedside. Objective - Vital Signs/Intake and Output Vital Signs (last 24 hours): Temp Pulse Resp BP Pulse Ox 99.4 F 74 20 100/59 L 100 05/26/18 08:16 05/26/18 08:16 05/26/18 08:16 05/26/18 08:16 05/26/18 08:16 Intake and Output: 05/26/18 05/26/18 06:59 18:59 Intake Total 1390 Output Total 951 Balance 439 - Medications Medications: Current Medications Acetaminophen (Tylenol 650 Mg Supp) 650 mg [place] Q6 PRN PRN Reason: Fever >100.4 F Last Admin: 05/23/18 00:19 Dose: 650 mg Acetylcysteine (Acetylcysteine 20%) 4 ml INH RQ4 [facility] Last Admin: 05/26/18 07:52 Dose: 4 ml Albuterol/Ipratropium (Duoneb 3 Mg/0.5 Mg (3 Ml) Ud) 3 ml INH RQ4 [facility] Last Admin: 05/26/18 07:53 Dose: 3 ml Amlodipine Besylate (Norvasc) 10 mg PO DAILY [facility] Last Admin: 05/25/18 10:28 Dose: 10 mg Aspirin (Aspirin Chewable) 81 mg PO DAILY [facility] Last Admin: 05/22/18 10:09 Dose: 81 mg Bisacodyl (Dulcolax) 10 mg PA TID PRN PRN Reason: Constipation Last Admin: 05/10/18 09:45 Dose: 10 mg Clopidogrel Bisulfate (Plavix) 75 mg PO DAILY [facility] Last Admin: 05/22/18 10:07 Dose: 75 mg Dextrose (Dextrose 50% Inj) 0 ml IV STAT PRN; Protocol PRN Reason: Hypoglycemia Protocol Dextrose (Glutose 15) 15 gm PO ONCE PRN; Protocol PRN Reason: Hypoglycemia Protocol Famotidine (Pepcid) 20 mg IVP Q12 [facility] Last Admin: 05/25/18 22:02 Dose: 20 mg Glucagon (Glucagen Diagnostic Kit) 1 mg IM STAT PRN; Protocol PRN Reason: Hypoglycemia Protocol Heparin Sodium (Porcine) (Heparin) 5,000 units SC Q8 [facility] Last Admin: 05/26/18 06:02 Dose: 5,000 units Levetiracetam 1,000 mg/ Sodium (Chloride) 110 mls @ 420 mls/hr IVPB Q12H [facility] Last Admin: 05/25/18 22:42 Dose: 420 mls/hr Metronidazole (Flagyl) 500 mg in 100 mls @ 100 mls/hr IVPB Q8H [facility]; Protocol Last Admin: 05/26/18 03:08 Dose: 100 mls/hr Meropenem 1 gm/ Sodium (Chloride) 100 mls @ 200 mls/hr IVPB Q8H [facility]; Protocol Last Admin: 05/26/18 02:35 Dose: 200 mls/hr Dextrose (Dextrose 5% In Water 1000 Ml) 1,000 mls @ 50 mls/hr IV .Q20H [facility] Last Admin: 05/26/18 05:58 Dose: 50 mls/hr Ibuprofen (Motrin Oral Susp) 200 mg PO Q6H PRN PRN Reason: Fever >100.4 F Last Admin: 05/26/18 06:28 Dose: 200 mg Insulin Aspart (Novolog) 0 unit SC Q6 [facility]; Protocol Last Admin: 05/26/18 05:59 Dose: Not Given Insulin Glargine (Lantus) 30 unit SC HS [facility] Last Admin: 05/25/18 22:12 Dose: 30 u Labetalol HCl (Trandate) 10 mg IVP Q4H PRN PRN Reason: Systolic Blood Pressure Last Admin: 05/16/18 11:45 Dose: 10 mg Lactulose (Enulose) 20 gm PO DAILY PRN PRN Reason: Constipation Last Admin: 05/25/18 16:55 Dose: 20 gm Lorazepam (Ativan) 2 mg IVP Q3 PRN PRN Reason: Agitation Last Admin: 05/25/18 20:57 Dose: 2 mg Metoprolol Tartrate (Lopressor) 75 mg PO BID [facility] Last Admin: 05/25/18 17:31 Dose: 75 mg Morphine Sulfate (Morphine) 2 mg IVP Q4 PRN PRN Reason: Pain, moderate (4-7) Last Admin: 05/26/18 06:01 Dose: 2 mg Rosuvastatin Calcium (Crestor) 5 mg PO HS [facility] Last Admin: 05/25/18 21:57 Dose: Not Given Senna/Docusate Sodium (Senokot S 50 Mg-8.6 Mg) 1 tab PO BID [facility] Last Admin: 05/25/18 17:31 Dose: 1 tab Vitamin A (Vitamin A & D Oint Ud Foilpak) 1 ea TOP BID PRN PRN Reason: Dry skin Last Admin: 05/20/18 06:50 Dose: 1 ea - Labs Labs: 05/26/18 07:36 05/26/18 07:36 PT 14.7 SECONDS (9.7-12.2) H 05/16/18 11:28 INR 1.3 05/16/18 11:28 APTT 35 SECONDS (21-34) H 05/16/18 11:28 - Constitutional Appears: Non-toxic, No Acute Distress - Head Exam Head Exam: ATRAUMATIC, NORMAL INSPECTION - ENT Exam ENT Exam: Mucous Membranes Moist - Neck Exam Additional comments: (+) tracheostomy tube; (-) signs of bleeding or infection - Respiratory Exam Respiratory Exam: Rhonchi. absent: Decreased Breath Sounds, Clear to Ausculation Bilateral, Rales - Cardiovascular Exam Cardiovascular Exam: +S1, +S2. absent: Tachycardia - GI/Abdominal Exam GI & Abdominal Exam: Soft. absent: Guarding, Rigid Additional comments: (+) PEG tube, without signs of bleeding or infection; (+) some serous oozing at site - Back Exam Back Exam: absent: CVA tenderness (L), CVA tenderness (R) - Neurological Exam Additional comments: GCS=6 Eyes open spontanously but not purposefully; unresponsive to verbal or painful stimuli Nonverbal Cannot follow commands, but moves all extremities spontaneously - Skin Skin Exam: Dry, Normal Color, Warm Additional comments: (+) 3cm x 3cm circular ulcer to the distal radius, with eschar Assessment and Plan - Assessment and Plan (Free Text) Assessment: Fever spikes - Tmax 24H 100.4, HR WNL - Motrin 200 mg Q6H PRN, Tylenol 650 mg Q6H PRN - awaiting sputum cultures from 05/25 - On meropenum 1g Q8H & flaggyl 500mg Q8H - likely neurological - will continue to monitor Respiratory Failure - Due to Asphyxiation/Possible Suicide Attempt - tracheostomy on vent @FiO2 40 - s/p tracheotomy - s/p G tube repositioning 05/16 - Mucomyst Q4 - Duonebs Q4 - 05/26: Breathing fine, current settings FiO2 50, PEEP 5, TV 500, Resp 18 Anoxic Brain Injury - rpt EEG: severe non specific diffuse distrubances in cortical activity, brown matter dysfunction - EEG 05/04: diffuse encephalopathy with burst suppression. - Repeat CT head: no bleeding - MRI Brain: subacute favored over acute cerebral hypoxic insult with minimal involvement of the lower haris and the cerebellar hemispheres - keppra 1,000 mg IV Q12H - Ativan 1mg q4h PRN - Neurology consulted, Dr. Duff/Guilherme - GCS is 6; unresponsive to painful stimuli, nonverbal, eyes open spontaneously - continue to monitor Transaminitis - Likely shock liver - Follow LFTs DM - Lantus 10 Units SC - Aspart ISS Q6H HTN - Metoprolol Tartrate 75 mg PO BID - Norvasc 5 mg PO 1x/day - Labetalol 10 mg IV Q4H PRN SBP > 140 NSTEMI Resolved - Elevated troponin - has normalized - ASA 81 mg PO daily (restarted 05/25) - Plavix 75mg PO daily (held - given drop in Hb) - hold Crestor 5 mg PO daily - Cardiology consulted, Dr Gay ARF Resolved - Likely Secondary to ATN with Hypernatremia - BUN/Cr have improved - Nephrology consulted, Dr. Samuels Leukocytosis Resolved - resolved, pt is afebrile, not tachycardic - rpt CXR 05/21: slightly low lung volumes with mild crowded bronchovascular markings and minor bibasilar atelectases - 05/17 rpt BCx: neg - 05/13/ rpt UCx: yeast - Blood cx 05/21 negative - UA: leuk est 3+, +WBC, +RBC, nitrate - - BCx 05/02/18: negative - UCx 05/06/18: negative - Tracheal Aspirate Cx 05/08/18: yeast - colindres changed 05/17 - cooling blanket - ice packs PRN fever - Doppler b/l UE and LE: negative for DVTs - Flagyl 500 mg IV Q8H - Meropenem 500 mg IV Q8H PPx Heparin 5,000 Units SC Q8H (restarted 05/25) Pepcid 20mg Q12 05/25 GT Feeding reduced to 30cc/hr on hold due to abdominal distension Aspiration precautions Seizure precautions suction PRN D5W @ 50cc/hr IV Turn and reposition q2h PT/OT Dispo: SW reports that pt may have insurance from who is [place] citizen, will look for placement. D/w Dr. Caden Diaz, PGY1 <Emmett Negrete - Last Filed: 05/29/18 07:35> Objective - Vital Signs/Intake and Output Vital Signs (last 24 hours): Temp Pulse Resp BP Pulse Ox 99.9 F H 87 20 154/79 H 100 05/29/18 00:00 05/29/18 00:00 05/29/18 00:00 05/29/18 00:00 05/29/18 00:00 Intake and Output: 05/29/18 05/29/18 06:59 18:59 Intake Total 1010 Output Total 800 Balance 210 - Medications Medications: Current Medications Acetaminophen (Tylenol 650 Mg Supp) 650 mg PA Q6 PRN PRN Reason: Fever >100.4 F Last Admin: 05/23/18 00:19 Dose: 650 mg Acetylcysteine (Acetylcysteine 20%) 4 ml INH RQ4 [facility] Last Admin: 05/29/18 03:26 Dose: 4 ml Albuterol/Ipratropium (Duoneb 3 Mg/0.5 Mg (3 Ml) Ud) 3 ml INH RQ4 [facility] Last Admin: 05/29/18 03:26 Dose: 3 ml Amlodipine Besylate (Norvasc) 10 mg PO DAILY [facility] Last Admin: 05/28/18 10:50 Dose: 10 mg Aspirin (Aspirin Chewable) 81 mg PO DAILY [facility] Last Admin: 05/28/18 10:50 Dose: 81 mg Bisacodyl (Dulcolax) 10 mg PA TID PRN PRN Reason: Constipation Last Admin: 05/10/18 09:45 Dose: 10 mg Clopidogrel Bisulfate (Plavix) 75 mg PO DAILY [facility] Last Admin: 05/22/18 10:07 Dose: 75 mg Dextrose (Dextrose 50% Inj) 0 ml IV STAT PRN; Protocol PRN Reason: Hypoglycemia Protocol Dextrose (Glutose 15) 15 gm PO ONCE PRN; Protocol PRN Reason: Hypoglycemia Protocol Famotidine (Pepcid) 20 mg IVP Q12 [facility] Last Admin: 05/28/18 21:36 Dose: 20 mg Fluconazole (Diflucan) 100 mg GT DAILY [facility]; Protocol Stop: 06/05/18 10:01 Glucagon (Glucagen Diagnostic Kit) 1 mg IM STAT PRN; Protocol PRN Reason: Hypoglycemia Protocol Levetiracetam 1,000 mg/ Sodium (Chloride) 110 mls @ 420 mls/hr IVPB Q12H [facility] Last Admin: 05/28/18 23:12 Dose: 420 mls/hr Ibuprofen (Motrin Oral Susp) 200 mg PO Q6H PRN PRN Reason: Fever >100.4 F Last Admin: 05/27/18 18:24 Dose: 200 mg Insulin Aspart (Novolog) 0 unit SC Q6 [facility]; Protocol Last Admin: 05/29/18 06:34 Dose: 4 units Insulin Glargine (Lantus) 30 unit SC [facility] Last Admin: 05/28/18 21:35 Dose: 30 u Labetalol HCl (Trandate) 10 mg IVP Q4H PRN PRN Reason: Systolic Blood Pressure Last Admin: 05/16/18 11:45 Dose: 10 mg Lactulose (Enulose) 20 gm PO DAILY PRN PRN Reason: Constipation Last Admin: 05/25/18 16:55 Dose: 20 gm Lorazepam (Ativan) 2 mg IVP Q3 PRN PRN Reason: Agitation Last Admin: 05/27/18 00:00 Dose: 2 mg Metoprolol Tartrate (Lopressor) 75 mg PO BID [facility] Last Admin: 05/28/18 18:23 Dose: 75 mg Morphine Sulfate (Morphine) 2 mg IVP Q4 PRN PRN Reason: Pain, moderate (4-7) Last Admin: 05/29/18 00:29 Dose: 2 mg Rosuvastatin Calcium (Crestor) 5 mg PO [facility] Last Admin: 05/27/18 22:40 Dose: 5 mg Senna/Docusate Sodium (Senokot S 50 Mg-8.6 Mg) 1 tab PO BID [facility] Last Admin: 05/28/18 18:24 Dose: 1 tab Vitamin A (Vitamin A & D Oint Ud Foilpak) 1 ea TOP BID PRN PRN Reason: Dry skin Last Admin: 05/28/18 18:39 Dose: 1 ea - Labs Labs: 05/28/18 07:15 05/28/18 07:15 PT 16.8 SECONDS (9.7-12.2) H 05/28/18 07:15 INR 1.5 05/28/18 07:15 APTT 34 SECONDS (21-34) 05/28/18 07:15 Attending/Attestation - Attestation I have personally seen and examined this patient.: Yes I have fully participated in the care of the patient.: Yes I have reviewed all pertinent clinical information, including history, physical exam and plan: Yes Notes (Text): Patient was seen and examined,s/p fever spikes,normal chext x ray,negative cultures we will continue antibiotics and follow DR Mcgill continue vent supprot,continue peg feeding,monitor sugar pending discharge to [facility] Assessment and the plan discussed in detail
[2018-05-26] MEDS: Docusate-Senna 50 mg-8.6 mg Tab PO SCH ×2 (10:08→17:57)
[2018-05-26] MEDS: levETIRAcetam 1,000 MG in Sodium Chloride 0.9% 100 ML IVPB SCH ×2 (10:40→23:05)
--- NOTE | 2018-05-26 19:34 | CP.PCM.PN ---
Subjective - Date & Time of Evaluation Date of Evaluation: 05/26/18 Time of Evaluation: 07:00 - Subjective Subjective: events noted back on iv antibiotics Objective - Vital Signs/Intake and Output Vital Signs (last 24 hours): Temp Pulse Resp BP Pulse Ox 99.8 F H 80 17 138/66 100 05/26/18 16:00 05/26/18 16:00 05/26/18 16:00 05/26/18 16:00 05/26/18 16:00 Intake and Output: 05/26/18 05/27/18 18:59 06:59 Intake Total 770 Output Total 500 Balance 270 - Medications Medications: Current Medications Acetaminophen (Tylenol 650 Mg Supp) 650 mg [place] Q6 PRN PRN Reason: Fever >100.4 F Last Admin: 05/23/18 00:19 Dose: 650 mg Acetylcysteine (Acetylcysteine 20%) 4 ml INH RQ4 [facility] Last Admin: 05/26/18 15:45 Dose: 4 ml Albuterol/Ipratropium (Duoneb 3 Mg/0.5 Mg (3 Ml) Ud) 3 ml INH RQ4 [facility] Last Admin: 05/26/18 15:45 Dose: 3 ml Amlodipine Besylate (Norvasc) 10 mg PO DAILY [facility] Last Admin: 05/26/18 10:08 Dose: 10 mg Aspirin (Aspirin Chewable) 81 mg PO DAILY [facility] Last Admin: 05/26/18 10:08 Dose: 81 mg Bisacodyl (Dulcolax) 10 mg NE TID PRN PRN Reason: Constipation Last Admin: 05/10/18 09:45 Dose: 10 mg Clopidogrel Bisulfate (Plavix) 75 mg PO DAILY [facility] Last Admin: 05/22/18 10:07 Dose: 75 mg Dextrose (Dextrose 50% Inj) 0 ml IV STAT PRN; Protocol PRN Reason: Hypoglycemia Protocol Dextrose (Glutose 15) 15 gm PO ONCE PRN; Protocol PRN Reason: Hypoglycemia Protocol Famotidine (Pepcid) 20 mg IVP Q12 [facility] Last Admin: 05/26/18 10:07 Dose: 20 mg Glucagon (Glucagen Diagnostic Kit) 1 mg IM STAT PRN; Protocol PRN Reason: Hypoglycemia Protocol Heparin Sodium (Porcine) (Heparin) 5,000 units SC Q8 [facility] Last Admin: 05/26/18 13:56 Dose: 5,000 units Levetiracetam 1,000 mg/ Sodium (Chloride) 110 mls @ 420 mls/hr IVPB Q12H [facility] Last Admin: 05/26/18 10:40 Dose: 420 mls/hr Metronidazole (Flagyl) 500 mg in 100 mls @ 100 mls/hr IVPB Q8H [facility]; Protocol Last Admin: 05/26/18 12:16 Dose: 100 mls/hr Meropenem 1 gm/ Sodium (Chloride) 100 mls @ 200 mls/hr IVPB Q8H [facility]; Protocol Last Admin: 05/26/18 11:10 Dose: 200 mls/hr Dextrose (Dextrose 5% In Water 1000 Ml) 1,000 mls @ 50 mls/hr IV .Q20H [facility] Last Admin: 05/26/18 05:58 Dose: 50 mls/hr Ibuprofen (Motrin Oral Susp) 200 mg PO Q6H PRN PRN Reason: Fever >100.4 F Last Admin: 05/26/18 06:28 Dose: 200 mg Insulin Aspart (Novolog) 0 unit SC Q6 [facility]; Protocol Last Admin: 05/26/18 17:54 Dose: 2 units Insulin Glargine (Lantus) 30 unit SC [facility] Last Admin: 05/25/18 22:12 Dose: 30 u Labetalol HCl (Trandate) 10 mg IVP Q4H PRN PRN Reason: Systolic Blood Pressure Last Admin: 05/16/18 11:45 Dose: 10 mg Lactulose (Enulose) 20 gm PO DAILY PRN PRN Reason: Constipation Last Admin: 05/25/18 16:55 Dose: 20 gm Lorazepam (Ativan) 2 mg IVP Q3 PRN PRN Reason: Agitation Last Admin: 05/25/18 20:57 Dose: 2 mg Metoprolol Tartrate (Lopressor) 75 mg PO BID [facility] Last Admin: 05/26/18 10:15 Dose: Not Given Morphine Sulfate (Morphine) 2 mg IVP Q4 PRN PRN Reason: Pain, moderate (4-7) Last Admin: 05/26/18 19:04 Dose: 2 mg Rosuvastatin Calcium (Crestor) 5 mg PO [facility] Last Admin: 05/25/18 21:57 Dose: Not Given Senna/Docusate Sodium (Senokot S 50 Mg-8.6 Mg) 1 tab PO BID [facility] Last Admin: 05/26/18 17:57 Dose: 1 tab Vitamin A (Vitamin A & D Oint Ud Foilpak) 1 ea TOP BID PRN PRN Reason: Dry skin Last Admin: 05/20/18 06:50 Dose: 1 ea - Labs Labs: 05/26/18 07:36 05/26/18 07:36 PT 14.7 SECONDS (9.7-12.2) H 05/16/18 11:28 INR 1.3 05/16/18 11:28 APTT 35 SECONDS (21-34) H 05/16/18 11:28 Assessment and Plan (1) Hyperglycemia Status: Acute (2) Leukocytosis Status: Acute (3) Respiratory failure Status: Acute
[2018-05-26] MEDS: (Lantus) Insulin Glargine, Recombinant SC SCH (21:42)
[2018-05-27] MEDS: Acetylcysteine 20% Inhal Soln (4ml) INH SCH ×6 (00:03→20:07)
[2018-05-27] MEDS: Albuterol-Ipratrop 3 mg / 0.5 (3 ml) UD INH SCH ×6 (00:03→20:07)
[2018-05-27] MEDS: Meropenem 1 GM in Sodium Chloride 0.9% 100 ML IVPB SCH ×3 (02:48→18:31)
[2018-05-27] MEDS: metroNIDAZOLE IV 500 mg/100 ml 500 MG/100 ML BAG IVPB SCH ×3 (03:55→19:53)
[2018-05-27] MEDS: (Novolog) Insulin Aspart, Recombinant 100 u/ml 10 ml vial SC SCH ×4 (06:04→23:47)
[2018-05-27 07:17] LABS: BASO # 0.1 K/uL (0.0-0.2); BASO % 1.2 % (0.0-2.0); EOS # 0.4 K/uL (0.0-0.7); HEMOGLOBIN 8.9 g/dL (11.0-16.0); LYMPH # 1.2 K/uL (1.0-4.3); LYMPH % 20.1 % (20.0-40.0); MEAN CELL VOLUME 82.3 fL (81.0-99.0); MEAN CORPUSCULAR HEMOGLOBIN 27.1 pg (27.0-31.0); MEAN CORPUSCULAR HGB CONC 32.9 g/dL (33.0-37.0); MEAN PLATELET VOLUME 12.4 fL (7.2-11.7); MONO # 0.7 K/uL (0.0-0.8); MONO % 11.4 % (0.0-10.0); NEUT # 3.6 K/uL (1.8-7.0); NEUT % 61.3 % (50.0-75.0); RBC 3.29 Mil/uL (3.80-5.20); RED CELL DISTRIBUTION WIDTH 17.4 % (11.5-14.5); WHITE BLOOD COUNT 5.9 K/uL (4.8-10.8)
--- NOTE | 2018-05-27 07:37 | CP.PCM.PN ---
Subjective - Date & Time of Evaluation Date of Evaluation: 05/27/18 Time of Evaluation: 13:00 - Subjective Subjective: PGY1 Medicine progress note for Dr. Negrete. Pt was seen and evaluated at bedside. Pt has tracheotomy tube with ventilator and PEG tube is in place. As per nurse, pt had fever in AM Tmax 101, which has been responsive to Motrin and ice packs. Patient was breathing better with ventilator. ROS is unobtainable due to AMS. She remains nonverbal, unable to respond to commands. Pt's sister is at bedside. Objective - Vital Signs/Intake and Output Vital Signs (last 24 hours): Temp Pulse Resp BP Pulse Ox 100.5 F H 82 26 H 164/78 H 98 05/27/18 06:58 05/27/18 06:19 05/27/18 06:19 05/27/18 06:19 05/27/18 01:00 Intake and Output: 05/27/18 05/27/18 06:59 18:59 Intake Total 1880 Output Total 1450 Balance 430 - Medications Medications: Current Medications Acetaminophen (Tylenol 650 Mg Supp) 650 mg [place] Q6 PRN PRN Reason: Fever >100.4 F Last Admin: 05/23/18 00:19 Dose: 650 mg Acetylcysteine (Acetylcysteine 20%) 4 ml INH RQ4 [facility] Last Admin: 05/27/18 03:08 Dose: 4 ml Albuterol/Ipratropium (Duoneb 3 Mg/0.5 Mg (3 Ml) Ud) 3 ml INH RQ4 [facility] Last Admin: 05/27/18 03:08 Dose: 3 ml Amlodipine Besylate (Norvasc) 10 mg PO DAILY [facility] Last Admin: 05/26/18 10:08 Dose: 10 mg Aspirin (Aspirin Chewable) 81 mg PO DAILY [facility] Last Admin: 05/26/18 10:08 Dose: 81 mg Bisacodyl (Dulcolax) 10 mg [place] TID PRN PRN Reason: Constipation Last Admin: 05/10/18 09:45 Dose: 10 mg Clopidogrel Bisulfate (Plavix) 75 mg PO DAILY [facility] Last Admin: 05/22/18 10:07 Dose: 75 mg Dextrose (Dextrose 50% Inj) 0 ml IV STAT PRN; Protocol PRN Reason: Hypoglycemia Protocol Dextrose (Glutose 15) 15 gm PO ONCE PRN; Protocol PRN Reason: Hypoglycemia Protocol Famotidine (Pepcid) 20 mg IVP Q12 [facility] Last Admin: 05/26/18 21:43 Dose: 20 mg Glucagon (Glucagen Diagnostic Kit) 1 mg IM STAT PRN; Protocol PRN Reason: Hypoglycemia Protocol Heparin Sodium (Porcine) (Heparin) 5,000 units SC Q8 [facility] Last Admin: 05/27/18 06:03 Dose: 5,000 units Levetiracetam 1,000 mg/ Sodium (Chloride) 110 mls @ 420 mls/hr IVPB Q12H [facility] Last Admin: 05/26/18 23:05 Dose: 420 mls/hr Metronidazole (Flagyl) 500 mg in 100 mls @ 100 mls/hr IVPB Q8H [facility]; Protocol Last Admin: 05/27/18 03:55 Dose: 100 mls/hr Meropenem 1 gm/ Sodium (Chloride) 100 mls @ 200 mls/hr IVPB Q8H [facility]; Protocol Last Admin: 05/27/18 02:48 Dose: 200 mls/hr Dextrose (Dextrose 5% In Water 1000 Ml) 1,000 mls @ 50 mls/hr IV .Q20H [facility] Last Admin: 05/26/18 21:59 Dose: Not Given Ibuprofen (Motrin Oral Susp) 200 mg PO Q6H PRN PRN Reason: Fever >100.4 F Last Admin: 05/27/18 06:19 Dose: 200 mg Insulin Aspart (Novolog) 0 unit SC Q6 [facility]; Protocol Last Admin: 05/27/18 06:04 Dose: Not Given Insulin Glargine (Lantus) 30 unit SC HS [facility] Last Admin: 05/26/18 21:42 Dose: 30 u Labetalol HCl (Trandate) 10 mg IVP Q4H PRN PRN Reason: Systolic Blood Pressure Last Admin: 05/16/18 11:45 Dose: 10 mg Lactulose (Enulose) 20 gm PO DAILY PRN PRN Reason: Constipation Last Admin: 05/25/18 16:55 Dose: 20 gm Lorazepam (Ativan) 2 mg IVP Q3 PRN PRN Reason: Agitation Last Admin: 05/27/18 00:00 Dose: 2 mg Metoprolol Tartrate (Lopressor) 75 mg PO BID [facility] Last Admin: 05/26/18 18:00 Dose: Not Given Morphine Sulfate (Morphine) 2 mg IVP Q4 PRN PRN Reason: Pain, moderate (4-7) Last Admin: 05/27/18 04:28 Dose: 2 mg Rosuvastatin Calcium (Crestor) 5 mg PO HS [facility] Last Admin: 05/26/18 21:44 Dose: 5 mg Senna/Docusate Sodium (Senokot S 50 Mg-8.6 Mg) 1 tab PO BID [facility] Last Admin: 05/26/18 17:57 Dose: 1 tab Vitamin A (Vitamin A & D Oint Ud Foilpak) 1 ea TOP BID PRN PRN Reason: Dry skin Last Admin: 05/20/18 06:50 Dose: 1 ea - Labs Labs: 05/27/18 06:48 05/26/18 07:36 PT 14.7 SECONDS (9.7-12.2) H 05/16/18 11:28 INR 1.3 05/16/18 11:28 APTT 35 SECONDS (21-34) H 05/16/18 11:28 - Constitutional Appears: No Acute Distress - Head Exam Head Exam: ATRAUMATIC, NORMAL INSPECTION, NORMOCEPHALIC - Eye Exam Eye Exam: Normal appearance Pupil Exam: NORMAL ACCOMODATION - ENT Exam ENT Exam: Mucous Membranes Moist - Neck Exam Additional comments: (+) tracheostomy tube; (-) signs of bleeding or infection - Respiratory Exam Respiratory Exam: Rhonchi. absent: NORMAL BREATHING PATTERN Additional comments: On tracheostomy, on ventilator 50%/5 peep/10 RR/500 Vt - Cardiovascular Exam Cardiovascular Exam: +S1, +S2 - GI/Abdominal Exam GI & Abdominal Exam: Soft Additional comments: (+) PEG tube, without signs of bleeding or infection; (+) some serous oozing at site - Extremities Exam Extremities Exam: absent: Calf Tenderness, Pedal Edema - Neurological Exam Neurological Exam: Awake Additional comments: GCS=6 Eyes open spontanously but not purposefully; unresponsive to verbal or painful stimuli Nonverbal Cannot follow commands, but moves all extremities spontaneously - Skin Skin Exam: Dry, Normal Color Additional comments: (+) 3cm x 3cm circular ulcer to the distal radius, with eschar Assessment and Plan - Assessment and Plan (Free Text) Assessment: Fever spikes - Tmax 24H 100.4, HR WNL - Motrin 200 mg Q6H PRN, Tylenol 650 mg Q6H PRN - awaiting sputum cultures from 05/25 - On meropenum 1g Q8H & flaggyl 500mg Q8H - likely neurological - will continue to monitor Anoxic Brain Injury - rpt EEG: severe non specific diffuse distrubances in cortical activity, brown matter dysfunction - EEG 05/04: diffuse encephalopathy with burst suppression. - Repeat CT head: no bleeding - MRI Brain: subacute favored over acute cerebral hypoxic insult with minimal involvement of the lower haris and the cerebellar hemispheres - keppra 1,000 mg IV Q12H - Ativan 1mg q4h PRN - Neurology consulted, Dr. Duff/Guilherme - GCS is 6; unresponsive to painful stimuli, nonverbal, eyes open spontaneously - continue to monitor Respiratory Failure - Due to Asphyxiation/Possible Suicide Attempt - tracheostomy on vent @FiO2 40 - s/p tracheotomy - s/p G tube repositioning 05/16 - Mucomyst Q4 - Duonebs Q4 - 05/26: Breathing fine, current settings FiO2 50, PEEP 5, TV 500, Resp 18 Transaminitis - Likely shock liver - Follow LFTs DM - Lantus 10 Units SC - Aspart ISS Q6H HTN - Metoprolol Tartrate 75 mg PO BID - Norvasc 5 mg PO 1x/day - Labetalol 10 mg IV Q4H PRN SBP > 140 NSTEMI Resolved - Elevated troponin - has normalized - ASA 81 mg PO daily (restarted 05/25) - Plavix 75mg PO daily (held - given drop in Hb) - hold Crestor 5 mg PO daily - Cardiology consulted, Dr Gay ARF Resolved - Likely Secondary to ATN with Hypernatremia - BUN/Cr have improved - Nephrology consulted, Dr. Samuels Leukocytosis Resolved - resolved, pt is afebrile, not tachycardic - rpt CXR 05/21: slightly low lung volumes with mild crowded bronchovascular markings and minor bibasilar atelectases - 05/17 rpt BCx: neg - 05/13/ rpt UCx: yeast - Blood cx 05/21 negative - UA: leuk est 3+, +WBC, +RBC, nitrate - - BCx 05/02/18: negative - UCx 05/06/18: negative - Tracheal Aspirate Cx 05/08/18: yeast - colindres changed 05/17 - cooling blanket - ice packs PRN fever - Doppler b/l UE and LE: negative for DVTs - Flagyl 500 mg IV Q8H - Meropenem 500 mg IV Q8H PPx Heparin 5,000 Units SC Q8H (restarted 05/25) Pepcid 20mg Q12 05/25 GT Feeding reduced to 30cc/hr on hold due to abdominal distension Aspiration precautions Seizure precautions suction PRN D5W @ 50cc/hr IV Turn and reposition q2h PT/OT Dispo: SW reports that pt may have insurance from who is [place] citizen, leonard sykes look for placement. D/w Dr. Caden Diaz, PGY1
[2018-05-27 08:02] LABS: ALB/GLOB RATIO 0.7 (1.0-2.1); ALBUMIN 2.8 g/dL (3.5-5.0); ALT/SGPT 40 U/L (9-52); AST/SGOT 60 U/L (14-36); BLOOD UREA NITROGEN 13 mg/dL (7-17); CALCIUM 7.9 mg/dl (8.6-10.4); GFR NON-AFRICAN AMERICAN 58
[2018-05-27] MEDS: Docusate-Senna 50 mg-8.6 mg Tab PO SCH ×2 (11:06→18:23)
[2018-05-27] MEDS: levETIRAcetam 1,000 MG in Sodium Chloride 0.9% 100 ML IVPB SCH ×2 (11:26→22:42)
[2018-05-27] MEDS: Vitamins A & D Oint UD Foilpak TOP PRN (12:58)
[2018-05-27] MEDS: (Lantus) Insulin Glargine, Recombinant SC SCH (22:40)
[2018-05-28] MEDS: Acetylcysteine 20% Inhal Soln (4ml) INH SCH ×6 (00:42→20:23)
[2018-05-28] MEDS: Albuterol-Ipratrop 3 mg / 0.5 (3 ml) UD INH SCH ×6 (00:42→20:23)
[2018-05-28] MEDS: Meropenem 1 GM in Sodium Chloride 0.9% 100 ML IVPB SCH ×2 (02:17→10:58)
[2018-05-28] MEDS: metroNIDAZOLE IV 500 mg/100 ml 500 MG/100 ML BAG IVPB SCH ×2 (03:26→12:42)
[2018-05-28] MEDS: (Novolog) Insulin Aspart, Recombinant 100 u/ml 10 ml vial SC SCH ×3 (06:28→18:50)
[2018-05-28 07:26] LABS: BASO % 0.7 % (0.0-2.0); EOS # 0.1 K/uL (0.0-0.7); HEMOGLOBIN 9.5 g/dL (11.0-16.0); LYMPH # 1.3 K/uL (1.0-4.3); LYMPH % 23.3 % (20.0-40.0); MEAN CELL VOLUME 81.6 fL (81.0-99.0); MEAN CORPUSCULAR HEMOGLOBIN 27.5 pg (27.0-31.0); MEAN CORPUSCULAR HGB CONC 33.6 g/dL (33.0-37.0); MONO # 0.6 K/uL (0.0-0.8); MONO % 11.5 % (0.0-10.0); NEUT # 3.5 K/uL (1.8-7.0); NEUT % 62.5 % (50.0-75.0); RBC 3.46 Mil/uL (3.80-5.20); RED CELL DISTRIBUTION WIDTH 17.3 % (11.5-14.5); WHITE BLOOD COUNT 5.6 K/uL (4.8-10.8)
[2018-05-28 07:34] LABS: INR 1.5; PROTHROMBIN TIME 16.8 SECONDS (9.7-12.2)
--- NOTE | 2018-05-28 07:36 | CP.PCM.PN ---
<Michael Diaz M - Last Filed: 05/28/18 16:01> Subjective - Date & Time of Evaluation Date of Evaluation: 05/28/18 Time of Evaluation: 09:25 - Subjective Subjective: PGY1 Medicine progress note for Dr. Negrete. Pt was seen and evaluated at bedside. Pt has tracheotomy tube with ventilator and PEG tube is in place. Pt had no fever for the past 24H. Patient was breathing better with ventilator. ROS is unobtainable due to AMS. She remains nonverbal, unable to respond to commands. Pt's sister is at bedside. Objective - Vital Signs/Intake and Output Vital Signs (last 24 hours): Temp Pulse Resp BP Pulse Ox 99.4 F 86 26 H 160/84 H 100 05/28/18 06:07 05/28/18 06:07 05/28/18 06:07 05/28/18 06:07 05/28/18 00:00 Intake and Output: 05/28/18 05/28/18 06:59 18:59 Intake Total 1730 Output Total 2200 Balance -470 - Medications Medications: Current Medications Acetaminophen (Tylenol 650 Mg Supp) 650 mg IL Q6 PRN PRN Reason: Fever >100.4 F Last Admin: 05/23/18 00:19 Dose: 650 mg Acetylcysteine (Acetylcysteine 20%) 4 ml INH RQ4 [facility] Last Admin: 05/28/18 03:28 Dose: 4 ml Albuterol/Ipratropium (Duoneb 3 Mg/0.5 Mg (3 Ml) Ud) 3 ml INH RQ4 [facility] Last Admin: 05/28/18 03:28 Dose: 3 ml Amlodipine Besylate (Norvasc) 10 mg PO DAILY [facility] Last Admin: 05/27/18 09:56 Dose: 10 mg Aspirin (Aspirin Chewable) 81 mg PO DAILY [facility] Last Admin: 05/27/18 09:53 Dose: 81 mg Bisacodyl (Dulcolax) 10 mg IL TID PRN PRN Reason: Constipation Last Admin: 05/10/18 09:45 Dose: 10 mg Clopidogrel Bisulfate (Plavix) 75 mg PO DAILY [facility] Last Admin: 05/22/18 10:07 Dose: 75 mg Dextrose (Dextrose 50% Inj) 0 ml IV STAT PRN; Protocol PRN Reason: Hypoglycemia Protocol Dextrose (Glutose 15) 15 gm PO ONCE PRN; Protocol PRN Reason: Hypoglycemia Protocol Famotidine (Pepcid) 20 mg IVP Q12 [facility] Last Admin: 05/27/18 22:40 Dose: 20 mg Glucagon (Glucagen Diagnostic Kit) 1 mg IM STAT PRN; Protocol PRN Reason: Hypoglycemia Protocol Heparin Sodium (Porcine) (Heparin) 5,000 units SC Q8 [facility] Last Admin: 05/28/18 06:20 Dose: Not Given Levetiracetam 1,000 mg/ Sodium (Chloride) 110 mls @ 420 mls/hr IVPB Q12H [facility] Last Admin: 05/27/18 22:42 Dose: 420 mls/hr Metronidazole (Flagyl) 500 mg in 100 mls @ 100 mls/hr IVPB Q8H [facility]; Protocol Last Admin: 05/28/18 03:26 Dose: 100 mls/hr Meropenem 1 gm/ Sodium (Chloride) 100 mls @ 200 mls/hr IVPB Q8H [facility]; Protocol Last Admin: 05/28/18 02:17 Dose: 200 mls/hr Dextrose (Dextrose 5% In Water 1000 Ml) 1,000 mls @ 50 mls/hr IV .Q20H [facility] Last Admin: 05/27/18 16:05 Dose: 50 mls/hr Ibuprofen (Motrin Oral Susp) 200 mg PO Q6H PRN PRN Reason: Fever >100.4 F Last Admin: 05/27/18 18:24 Dose: 200 mg Insulin Aspart (Novolog) 0 unit SC Q6 [facility]; Protocol Last Admin: 05/28/18 06:28 Dose: 8 units Insulin Glargine (Lantus) 30 unit SC HS [facility] Last Admin: 05/27/18 22:40 Dose: 30 u Labetalol HCl (Trandate) 10 mg IVP Q4H PRN PRN Reason: Systolic Blood Pressure Last Admin: 05/16/18 11:45 Dose: 10 mg Lactulose (Enulose) 20 gm PO DAILY PRN PRN Reason: Constipation Last Admin: 05/25/18 16:55 Dose: 20 gm Lorazepam (Ativan) 2 mg IVP Q3 PRN PRN Reason: Agitation Last Admin: 05/27/18 00:00 Dose: 2 mg Metoprolol Tartrate (Lopressor) 75 mg PO BID [facility] Last Admin: 05/27/18 18:23 Dose: 75 mg Morphine Sulfate (Morphine) 2 mg IVP Q4 PRN PRN Reason: Pain, moderate (4-7) Last Admin: 05/28/18 06:15 Dose: 2 mg Rosuvastatin Calcium (Crestor) 5 mg PO HS [facility] Last Admin: 05/27/18 22:40 Dose: 5 mg Senna/Docusate Sodium (Senokot S 50 Mg-8.6 Mg) 1 tab PO BID [facility] Last Admin: 05/27/18 18:23 Dose: 1 tab Vitamin A (Vitamin A & D Oint Ud Foilpak) 1 ea TOP BID PRN PRN Reason: Dry skin Last Admin: 05/27/18 12:58 Dose: 1 ea - Labs Labs: 05/27/18 06:48 05/27/18 06:48 PT 16.8 SECONDS (9.7-12.2) H 05/28/18 07:15 INR 1.5 05/28/18 07:15 APTT 34 SECONDS (21-34) 05/28/18 07:15 - Constitutional Appears: Non-toxic, No Acute Distress - Head Exam Head Exam: ATRAUMATIC, NORMAL INSPECTION, NORMOCEPHALIC - Eye Exam Eye Exam: Normal appearance Pupil Exam: NORMAL ACCOMODATION - ENT Exam ENT Exam: Mucous Membranes Moist - Neck Exam Additional comments: (+) tracheostomy tube; (-) signs of bleeding or infection - Respiratory Exam Respiratory Exam: Rhonchi. absent: Rales, Wheezes Additional comments: On tracheostomy, on ventilator 50%/5 peep/10 RR/500 Vt - Cardiovascular Exam Cardiovascular Exam: +S1, +S2 - GI/Abdominal Exam GI & Abdominal Exam: Soft, Normal Bowel Sounds. absent: Firm, Guarding, Rigid Additional comments: (+) PEG tube, without signs of bleeding or infection; (+) some serous oozing at site - Extremities Exam Extremities Exam: Full ROM, Normal Inspection. absent: Calf Tenderness, Pedal Edema Additional comments: LE & UE in chronic contracture state - Neurological Exam Neurological Exam: Alert Additional comments: GCS=6 Eyes open spontanously but not purposefully; unresponsive to verbal or painful stimuli Nonverbal Cannot follow commands, but moves all extremities spontaneously - Psychiatric Exam Psychiatric exam: Normal Affect, Normal Mood - Skin Additional comments: (+) 3cm x 3cm circular ulcer to the distal radius, with eschar Assessment and Plan - Assessment and Plan (Free Text) Assessment: Fever spikes - 24H no fever (48H Tmax 100.6) - Motrin 200 mg Q6H PRN, Tylenol 650 mg Q6H PRN - sputum cultures from 05/25 - yeast - Per Dr. Mcgill - diflucan 100 mg GT X7 days - D/c meropenum 1g Q8H & flaggyl 500mg Q8H (total 13 days of treatment) - likely neurological - will continue to monitor Anoxic Brain Injury - rpt EEG: severe non specific diffuse distrubances in cortical activity, brown matter dysfunction - EEG 05/04: diffuse encephalopathy with burst suppression. - Repeat CT head: no bleeding - MRI Brain: subacute favored over acute cerebral hypoxic insult with minimal involvement of the lower haris and the cerebellar hemispheres - keppra 1,000 mg IV Q12H - Ativan 1mg q4h PRN - Neurology consulted, Dr. Duff/Guilherme - GCS is 6; unresponsive to painful stimuli, nonverbal, eyes open spontaneously - continue to monitor Respiratory Failure - Due to Asphyxiation/Possible Suicide Attempt - tracheostomy on vent @FiO2 40 - s/p tracheotomy - s/p G tube repositioning 05/16 - Mucomyst Q4 - Duonebs Q4 - 05/26: Breathing fine, current settings FiO2 50, PEEP 5, TV 500, Resp 18 Transaminitis - Likely shock liver - Follow LFTs DM - Lantus 10 Units SC - Aspart ISS Q6H HTN - Metoprolol Tartrate 75 mg PO BID - Norvasc 5 mg PO 1x/day - Labetalol 10 mg IV Q4H PRN SBP > 140 NSTEMI Resolved - Elevated troponin - has normalized - ASA 81 mg PO daily (restarted 05/25) - Plavix 75mg PO daily (held - given drop in Hb) - hold Crestor 5 mg PO daily - Cardiology consulted, Dr Gay ARF Resolved - Likely Secondary to ATN with Hypernatremia - BUN/Cr have improved - Nephrology consulted, Dr. Samuels Leukocytosis Resolved - resolved, pt is afebrile, not tachycardic - rpt CXR 05/21: slightly low lung volumes with mild crowded bronchovascular markings and minor bibasilar atelectases - 05/17 rpt BCx: neg - UCx: yeast - Blood cx 05/21 negative - UA: leuk est 3+, +WBC, +RBC, nitrate - - BCx 05/02/18: negative - UCx 05/06/18: negative - Tracheal Aspirate Cx 05/08/18: yeast - colindres changed 05/17 - cooling blanket - ice packs PRN fever - Doppler b/l UE and LE: negative for DVTs - Flagyl 500 mg IV Q8H - Meropenem 500 mg IV Q8H PPx Heparin 5,000 Units SC Q8H (restarted 05/25) Pepcid 20mg Q12 05/25 GT Feeding reduced to 30cc/hr Aspiration precautions Seizure precautions suction PRN D5W @ 50cc/hr IV D/C'ed as patient has tube feedings Turn and reposition q2h PT/OT Dispo: SW reports that pt may have insurance from who is [place] citizen, will look for placement. D/w Dr. Caden Diaz, PGY1 <Emmett Negrete - Last Filed: 05/29/18 07:32> Objective - Vital Signs/Intake and Output Vital Signs (last 24 hours): Temp Pulse Resp BP Pulse Ox 99.9 F H 87 20 154/79 H 100 05/29/18 00:00 05/29/18 00:00 05/29/18 00:00 05/29/18 00:00 05/29/18 00:00 Intake and Output: 05/29/18 05/29/18 06:59 18:59 Intake Total 1010 Output Total 800 Balance 210 - Medications Medications: Current Medications Acetaminophen (Tylenol 650 Mg Supp) 650 mg IL Q6 PRN PRN Reason: Fever >100.4 F Last Admin: 05/23/18 00:19 Dose: 650 mg Acetylcysteine (Acetylcysteine 20%) 4 ml INH RQ4 [facility] Last Admin: 05/29/18 03:26 Dose: 4 ml Albuterol/Ipratropium (Duoneb 3 Mg/0.5 Mg (3 Ml) Ud) 3 ml INH RQ4 [facility] Last Admin: 05/29/18 03:26 Dose: 3 ml Amlodipine Besylate (Norvasc) 10 mg PO DAILY [facility] Last Admin: 05/28/18 10:50 Dose: 10 mg Aspirin (Aspirin Chewable) 81 mg PO DAILY [facility] Last Admin: 05/28/18 10:50 Dose: 81 mg Bisacodyl (Dulcolax) 10 mg IL TID PRN PRN Reason: Constipation Last Admin: 05/10/18 09:45 Dose: 10 mg Clopidogrel Bisulfate (Plavix) 75 mg PO DAILY [facility] Last Admin: 05/22/18 10:07 Dose: 75 mg Dextrose (Dextrose 50% Inj) 0 ml IV STAT PRN; Protocol PRN Reason: Hypoglycemia Protocol Dextrose (Glutose 15) 15 gm PO ONCE PRN; Protocol PRN Reason: Hypoglycemia Protocol Famotidine (Pepcid) 20 mg IVP Q12 [facility] Last Admin: 05/28/18 21:36 Dose: 20 mg Fluconazole (Diflucan) 100 mg GT DAILY [facility]; Protocol Stop: 06/05/18 10:01 Glucagon (Glucagen Diagnostic Kit) 1 mg IM STAT PRN; Protocol PRN Reason: Hypoglycemia Protocol Levetiracetam 1,000 mg/ Sodium (Chloride) 110 mls @ 420 mls/hr IVPB Q12H [facility] Last Admin: 05/28/18 23:12 Dose: 420 mls/hr Ibuprofen (Motrin Oral Susp) 200 mg PO Q6H PRN PRN Reason: Fever >100.4 F Last Admin: 05/27/18 18:24 Dose: 200 mg Insulin Aspart (Novolog) 0 unit SC Q6 [facility]; Protocol Last Admin: 05/29/18 06:34 Dose: 4 units Insulin Glargine (Lantus) 30 unit SC HS [facility] Last Admin: 05/28/18 21:35 Dose: 30 u Labetalol HCl (Trandate) 10 mg IVP Q4H PRN PRN Reason: Systolic Blood Pressure Last Admin: 05/16/18 11:45 Dose: 10 mg Lactulose (Enulose) 20 gm PO DAILY PRN PRN Reason: Constipation Last Admin: 05/25/18 16:55 Dose: 20 gm Lorazepam (Ativan) 2 mg IVP Q3 PRN PRN Reason: Agitation Last Admin: 05/27/18 00:00 Dose: 2 mg Metoprolol Tartrate (Lopressor) 75 mg PO BID [facility] Last Admin: 05/28/18 18:23 Dose: 75 mg Morphine Sulfate (Morphine) 2 mg IVP Q4 PRN PRN Reason: Pain, moderate (4-7) Last Admin: 05/29/18 00:29 Dose: 2 mg Rosuvastatin Calcium (Crestor) 5 mg PO HS [facility] Last Admin: 05/27/18 22:40 Dose: 5 mg Senna/Docusate Sodium (Senokot S 50 Mg-8.6 Mg) 1 tab PO BID [facility] Last Admin: 05/28/18 18:24 Dose: 1 tab Vitamin A (Vitamin A & D Oint Ud Foilpak) 1 ea TOP BID PRN PRN Reason: Dry skin Last Admin: 05/28/18 18:39 Dose: 1 ea - Labs Labs: 05/28/18 07:15 05/28/18 07:15 PT 16.8 SECONDS (9.7-12.2) H 05/28/18 07:15 INR 1.5 05/28/18 07:15 APTT 34 SECONDS (21-34) 05/28/18 07:15 Attending/Attestation - Attestation I have personally seen and examined this patient.: Yes I have fully participated in the care of the patient.: Yes I have reviewed all pertinent clinical information, including history, physical exam and plan: Yes Notes (Text): Patient is getting feeding,seen and examined ,Remains not responding /not following directions. breathing ok,no fever on antibiotics.we will discuss with dr Mcgill about antibiotics I agree with the resident's documentation
[2018-05-28 07:49] LABS: ALB/GLOB RATIO 0.7 (1.0-2.1); ALBUMIN 2.7 g/dL (3.5-5.0); ALT/SGPT 36 U/L (9-52); AST/SGOT 57 U/L (14-36); BLOOD UREA NITROGEN 13 mg/dL (7-17); CALCIUM 7.7 mg/dl (8.6-10.4); GFR NON-AFRICAN AMERICAN 58
[2018-05-28] MEDS: Docusate-Senna 50 mg-8.6 mg Tab PO SCH ×2 (10:55→18:24)
[2018-05-28] MEDS: levETIRAcetam 1,000 MG in Sodium Chloride 0.9% 100 ML IVPB SCH ×2 (11:59→23:12)
[2018-05-28] MEDS: Vitamins A & D Oint UD Foilpak TOP PRN (18:39)
[2018-05-28] MEDS: (Lantus) Insulin Glargine, Recombinant SC SCH (21:35)
[2018-05-29] MEDS: (Novolog) Insulin Aspart, Recombinant 100 u/ml 10 ml vial SC SCH ×5 (00:10→23:59)
[2018-05-29] MEDS: Acetylcysteine 20% Inhal Soln (4ml) INH SCH ×6 (00:10→20:39)
[2018-05-29] MEDS: Albuterol-Ipratrop 3 mg / 0.5 (3 ml) UD INH SCH ×6 (01:15→20:39)
--- NOTE | 2018-05-29 02:41 | CP.PCM.PN ---
<Juan DanielChristy urbano - Last Filed: 05/29/18 02:39> Subjective - Date & Time of Evaluation Date of Evaluation: 05/29/18 Time of Evaluation: 02:39 - Subjective Subjective: PGY-1 Medicine Progress note for Dr. Cash service Patient seen and examined at bedside. ROS limited 2/2 to patient limited condition. Objective - Vital Signs/Intake and Output Vital Signs (last 24 hours): Temp Pulse Resp BP Pulse Ox 99.3 F 79 18 116/78 100 05/28/18 16:00 05/28/18 16:00 05/28/18 16:00 05/28/18 18:23 05/28/18 16:00 Intake and Output: 05/28/18 05/29/18 18:59 06:59 Intake Total 1140 490 Output Total 800 Balance 340 490 - Medications Medications: Current Medications Acetaminophen (Tylenol 650 Mg Supp) 650 mg IA Q6 PRN PRN Reason: Fever >100.4 F Last Admin: 05/23/18 00:19 Dose: 650 mg Acetylcysteine (Acetylcysteine 20%) 4 ml INH RQ4 [facility] Last Admin: 05/29/18 00:10 Dose: Not Given Albuterol/Ipratropium (Duoneb 3 Mg/0.5 Mg (3 Ml) Ud) 3 ml INH RQ4 [facility] Last Admin: 05/29/18 01:15 Dose: 3 ml Amlodipine Besylate (Norvasc) 10 mg PO DAILY [facility] Last Admin: 05/28/18 10:50 Dose: 10 mg Aspirin (Aspirin Chewable) 81 mg PO DAILY [facility] Last Admin: 05/28/18 10:50 Dose: 81 mg Bisacodyl (Dulcolax) 10 mg IA TID PRN PRN Reason: Constipation Last Admin: 05/10/18 09:45 Dose: 10 mg Clopidogrel Bisulfate (Plavix) 75 mg PO DAILY [facility] Last Admin: 05/22/18 10:07 Dose: 75 mg Dextrose (Dextrose 50% Inj) 0 ml IV STAT PRN; Protocol PRN Reason: Hypoglycemia Protocol Dextrose (Glutose 15) 15 gm PO ONCE PRN; Protocol PRN Reason: Hypoglycemia Protocol Famotidine (Pepcid) 20 mg IVP Q12 [facility] Last Admin: 05/28/18 21:36 Dose: 20 mg Fluconazole (Diflucan) 100 mg GT DAILY [facility]; Protocol Stop: 06/05/18 10:01 Glucagon (Glucagen Diagnostic Kit) 1 mg IM STAT PRN; Protocol PRN Reason: Hypoglycemia Protocol Levetiracetam 1,000 mg/ Sodium (Chloride) 110 mls @ 420 mls/hr IVPB Q12H [facility] Last Admin: 05/28/18 23:12 Dose: 420 mls/hr Ibuprofen (Motrin Oral Susp) 200 mg PO Q6H PRN PRN Reason: Fever >100.4 F Last Admin: 05/27/18 18:24 Dose: 200 mg Insulin Aspart (Novolog) 0 unit SC Q6 [facility]; Protocol Last Admin: 05/29/18 00:10 Dose: Not Given Insulin Glargine (Lantus) 30 unit SC [facility] Last Admin: 05/28/18 21:35 Dose: 30 u Labetalol HCl (Trandate) 10 mg IVP Q4H PRN PRN Reason: Systolic Blood Pressure Last Admin: 05/16/18 11:45 Dose: 10 mg Lactulose (Enulose) 20 gm PO DAILY PRN PRN Reason: Constipation Last Admin: 05/25/18 16:55 Dose: 20 gm Lorazepam (Ativan) 2 mg IVP Q3 PRN PRN Reason: Agitation Last Admin: 05/27/18 00:00 Dose: 2 mg Metoprolol Tartrate (Lopressor) 75 mg PO BID [facility] Last Admin: 05/28/18 18:23 Dose: 75 mg Morphine Sulfate (Morphine) 2 mg IVP Q4 PRN PRN Reason: Pain, moderate (4-7) Last Admin: 05/29/18 00:29 Dose: 2 mg Rosuvastatin Calcium (Crestor) 5 mg PO [facility] Last Admin: 05/27/18 22:40 Dose: 5 mg Senna/Docusate Sodium (Senokot S 50 Mg-8.6 Mg) 1 tab PO BID [facility] Last Admin: 05/28/18 18:24 Dose: 1 tab Vitamin A (Vitamin A & D Oint Ud Foilpak) 1 ea TOP BID PRN PRN Reason: Dry skin Last Admin: 05/28/18 18:39 Dose: 1 ea - Labs Labs: 05/28/18 07:15 05/28/18 07:15 PT 16.8 SECONDS (9.7-12.2) H 05/28/18 07:15 INR 1.5 05/28/18 07:15 APTT 34 SECONDS (21-34) 05/28/18 07:15 - Additional Findings Additional findings: - Constitutional Appears: Non-toxic, No Acute Distress - Head Exam Head Exam: ATRAUMATIC, NORMAL INSPECTION, NORMOCEPHALIC - Eye Exam Eye Exam: Normal appearance Pupil Exam: NORMAL ACCOMODATION - ENT Exam ENT Exam: Mucous Membranes Moist - Neck Exam Additional comments: (+) tracheostomy tube; (-) signs of bleeding or infection - Respiratory Exam Respiratory Exam: Rhonchi. absent: Rales, Wheezes Additional comments: On tracheostomy, on ventilator 50%/5 peep/10 RR/500 Vt - Cardiovascular Exam Cardiovascular Exam: +S1, +S2 - GI/Abdominal Exam GI & Abdominal Exam: Soft, Normal Bowel Sounds. absent: Firm, Guarding, Rigid Additional comments: (+) PEG tube, without signs of bleeding or infection; (+) some serous oozing at site - Exam Exam: Alvarado in place - Extremities Exam Extremities Exam: Full ROM, Normal Inspection. absent: Calf Tenderness, Pedal Edema Additional comments: LE & UE in chronic contracture state - Neurological Exam Neurological Exam: Alert Additional comments: GCS=6 Eyes open spontanously but not purposefully; unresponsive to verbal or painful stimuli Nonverbal Cannot follow commands, but moves all extremities spontaneously - Psychiatric Exam Psychiatric exam: Normal Affect, Normal Mood - Skin Additional comments: (+) 3cm x 3cm circular ulcer to the distal radius, with eschar Assessment and Plan - Assessment and Plan (Free Text) Assessment: Patient is a 52 yo female hospitalized for asphyxiation, possible suicide attemp t. Plan: Fever spikes Tmax 24H 100.4, HR WNL Motrin 200 mg Q6H PRN, Tylenol 650 mg Q6H PRN awaiting sputum cultures from 05/25 On meropenum 1g Q8H & flaggyl 500mg Q8H likely neurological will continue to monitor Respiratory Failure Due to Asphyxiation/Possible Suicide Attempt tracheostomy on vent @FiO2 40 s/p tracheotomy s/p G tube repositioning 05/16 Mucomyst Q4 Duonebs Q4 05/26: Breathing fine, current settings FiO2 50, PEEP 5, TV 500, Resp 18 Anoxic Brain Injury Rpt EEG: severe non specific diffuse distrubances in cortical activity, brown matter dysfunction EEG 05/04: diffuse encephalopathy with burst suppression. Repeat CT head: no bleeding MRI Brain: subacute favored over acute cerebral hypoxic insult with minimal involvement of the lower haris and the cerebellar hemispheres Keppra 1,000 mg IV Q12H Ativan 1mg q4h PRN Neurology consulted, Dr. Duff/Guilherme GCS is 6; unresponsive to painful stimuli, nonverbal, eyes open spontaneously continue to monitor Transaminitis Likely shock liver Follow LFTs DM Lantus 10 Units SC Aspart ISS Q6H HTN Metoprolol Tartrate 75 mg PO BID Norvasc 5 mg PO 1x/day Labetalol 10 mg IV Q4H PRN SBP > 140 NSTEMI Resolved Elevated troponin Has normalized ASA 81 mg PO daily (restarted 05/25) Plavix 75mg PO daily (held - given drop in Hb) Hold Crestor 5 mg PO daily Cardio consult: Dr. Gay ARF Resolved Likely Secondary to ATN with Hypernatremia BUN/Cr have improved Nephrology consulted: Dr. Samuels Leukocytosis Resolved, pt is afebrile, not tachycardic Rpt CXR 05/21: slightly low lung volumes with mild crowded bronchovascular markings and minor bibasilar atelectases 05/17 rpt BCx: neg 05/13/ rpt UCx: yeast Blood cx 05/21 negative UA: leuk est 3+, +WBC, +RBC, nitrate - BCx 05/02/18: negative UCx 05/06/18: negative Tracheal Aspirate Cx 05/08/18: yeast Alvarado changed 05/17 Cooling blanket Ice packs PRN fever Doppler b/l UE and LE: negative for DVTs Flagyl 500 mg IV Q8H Meropenem 500 mg IV Q8H PPx Heparin 5,000 Units SC Q8H (restarted 05/25) Pepcid 20mg Q12 05/25 GT Feeding reduced to 30cc/hr on hold due to abdominal distension Aspiration precautions Seizure precautions Suction PRN D5W @ 50cc/hr IV Turn and reposition q2h PT/OT Dispo: reports that pt may have insurance from who is [place] citizen, will look for placement. <Emmett Negrete - Last Filed: 06/09/18 17:19> Objective - Vital Signs/Intake and Output Vital Signs (last 24 hours): Temp Pulse Resp BP Pulse Ox 98.5 F 89 20 135/86 97 06/09/18 08:01 06/09/18 08:01 06/09/18 08:01 06/09/18 10:14 06/09/18 08:01 Intake and Output: 06/09/18 06/09/18 06:59 18:59 Intake Total 810 810 Output Total 500 600 Balance 310 210 - Medications Medications: Current Medications Acetaminophen (Tylenol 650 Mg Supp) 650 mg IA Q6 PRN PRN Reason: Fever >100.4 F Last Admin: 06/03/18 00:22 Dose: 650 mg Acetylcysteine (Acetylcysteine 20%) 4 ml INH RQ4 [facility] Last Admin: 06/09/18 16:27 Dose: 4 ml Albuterol/Ipratropium (Duoneb 3 Mg/0.5 Mg (3 Ml) Ud) 3 ml INH RQ4 [facility] Last Admin: 06/09/18 16:27 Dose: 3 ml Amlodipine Besylate (Norvasc) 10 mg PO DAILY [facility] Last Admin: 06/09/18 10:15 Dose: 10 mg Aspirin (Aspirin Chewable) 81 mg PO DAILY [facility] Last Admin: 06/09/18 10:15 Dose: 81 mg Bisacodyl (Dulcolax) 10 mg IA TID PRN PRN Reason: Constipation Last Admin: 05/10/18 09:45 Dose: 10 mg Clopidogrel Bisulfate (Plavix) 75 mg PO DAILY [facility] Last Admin: 05/22/18 10:07 Dose: 75 mg Dextrose (Dextrose 50% Inj) 0 ml IV STAT PRN; Protocol PRN Reason: Hypoglycemia Protocol Dextrose (Glutose 15) 15 gm PO ONCE PRN; Protocol PRN Reason: Hypoglycemia Protocol Famotidine (Pepcid) 20 mg GT DAILY [facility] Last Admin: 06/09/18 10:15 Dose: 20 mg Glucagon (Glucagen Diagnostic Kit) 1 mg IM STAT PRN; Protocol PRN Reason: Hypoglycemia Protocol Heparin Sodium (Porcine) (Heparin) 5,000 units SC Q8 [facility] Last Admin: 06/09/18 13:39 Dose: 5,000 units Ibuprofen (Motrin Oral Susp) 200 mg PO Q6H PRN PRN Reason: Fever >100.4 F Last Admin: 06/04/18 16:14 Dose: 200 mg Insulin Aspart (Novolog) 0 unit SC [facility]; Protocol Last Admin: 06/09/18 11:40 Dose: Not Given Insulin Glargine (Lantus) 40 unit SC [facility] Last Admin: 06/08/18 21:54 Dose: 40 units Insulin Human Isoph/Insulin Regular (Novolin 70/30 (70/30 Units/Ml) 10 Ml) 15 units SC BID [facility] Last Admin: 06/09/18 10:13 Dose: 15 units Labetalol HCl (Trandate) 10 mg IVP Q4H PRN PRN Reason: Systolic Blood Pressure Last Admin: 05/16/18 11:45 Dose: 10 mg Lactulose (Enulose) 20 gm PO DAILY PRN PRN Reason: Constipation Last Admin: 05/25/18 16:55 Dose: 20 gm Metoprolol Tartrate (Lopressor) 75 mg PO BID [facility] Last Admin: 06/09/18 10:14 Dose: 75 mg Rosuvastatin Calcium (Crestor) 5 mg PO [facility] Last Admin: 06/08/18 21:50 Dose: 5 mg Senna/Docusate Sodium (Senokot S 50 Mg-8.6 Mg) 1 tab PO BID [facility] Last Admin: 06/09/18 10:15 Dose: 1 tab Vitamin A (Vitamin A & D Oint Ud Foilpak) 1 ea TOP BID PRN PRN Reason: Dry skin Last Admin: 05/30/18 10:24 Dose: 1 ea - Labs Labs: 06/09/18 07:23 06/09/18 07:23 PT 16.8 SECONDS (9.7-12.2) H 05/28/18 07:15 INR 1.5 05/28/18 07:15 APTT 34 SECONDS (21-34) 05/28/18 07:15 Attending/Attestation - Attestation I have personally seen and examined this patient.: Yes I have fully participated in the care of the patient.: Yes I have reviewed all pertinent clinical information, including history, physical exam and plan: Yes Notes (Text): Seen and examined by me.Not following directions Discussed with the resident. Spoke to her sister at bedside continue MV support
[2018-05-29 07:54] LABS: BASO # 0.1 K/uL (0.0-0.2); BASO % 0.8 % (0.0-2.0); EOS # 0.1 K/uL (0.0-0.7); HEMOGLOBIN 10.2 g/dL (11.0-16.0); LYMPH % 25.9 % (20.0-40.0); MEAN CELL VOLUME 82.5 fL (81.0-99.0); MEAN CORPUSCULAR HEMOGLOBIN 27.5 pg (27.0-31.0); MEAN CORPUSCULAR HGB CONC 33.3 g/dL (33.0-37.0); MEAN PLATELET VOLUME 12.6 fL (7.2-11.7); MONO # 0.9 K/uL (0.0-0.8); MONO % 11.4 % (0.0-10.0); NEUT # 4.6 K/uL (1.8-7.0); NEUT % 60.9 % (50.0-75.0); NRBC % 0.1 % (0.0-2.0); RBC 3.7 Mil/uL (3.80-5.20); RED CELL DISTRIBUTION WIDTH 17.6 % (11.5-14.5); WHITE BLOOD COUNT 7.6 K/uL (4.8-10.8)
[2018-05-29 08:24] LABS: ALB/GLOB RATIO 0.7 (1.0-2.1); ALT/SGPT 36 U/L (9-52); AST/SGOT 62 U/L (14-36); BLOOD UREA NITROGEN 15 mg/dL (7-17); CALCIUM 8.2 mg/dl (8.6-10.4); GFR NON-AFRICAN AMERICAN > 60
[2018-05-29] MEDS: Docusate-Senna 50 mg-8.6 mg Tab PO SCH ×2 (09:42→17:44)
[2018-05-29] MEDS: levETIRAcetam 1,000 MG in Sodium Chloride 0.9% 100 ML IVPB SCH ×2 (12:05→22:33)
[2018-05-29] MEDS: (Lantus) Insulin Glargine, Recombinant SC SCH (21:30)
[2018-05-30] MEDS: Albuterol-Ipratrop 3 mg / 0.5 (3 ml) UD INH SCH ×6 (00:15→20:21)
[2018-05-30] MEDS: Acetylcysteine 20% Inhal Soln (4ml) INH SCH ×6 (00:15→20:22)
--- NOTE | 2018-05-30 02:10 | CP.PCM.PN ---
<Juan DanielChristy urbano - Last Filed: 05/30/18 02:07> Subjective - Date & Time of Evaluation Date of Evaluation: 05/30/18 Time of Evaluation: 02:07 - Subjective Subjective: PGY-1 Medicine Progress note for Dr. Cash service Patient seen and examined at bedside. ROS limited 2/2 to patient limited conditi on. Objective - Vital Signs/Intake and Output Vital Signs (last 24 hours): Temp Pulse Resp BP Pulse Ox 99.4 F 73 20 101/63 100 05/30/18 00:00 05/30/18 00:00 05/30/18 00:00 05/30/18 00:00 05/30/18 00:00 Intake and Output: 05/29/18 05/30/18 18:59 06:59 Intake Total 600 530 Output Total 1100 550 Balance -500 -20 - Medications Medications: Current Medications Acetaminophen (Tylenol 650 Mg Supp) 650 mg [place] Q6 PRN PRN Reason: Fever >100.4 F Last Admin: 05/29/18 09:41 Dose: 650 mg Acetylcysteine (Acetylcysteine 20%) 4 ml INH RQ4 [facility] Last Admin: 05/30/18 00:15 Dose: Not Given Albuterol/Ipratropium (Duoneb 3 Mg/0.5 Mg (3 Ml) Ud) 3 ml INH RQ4 [facility] Last Admin: 05/30/18 00:15 Dose: 3 ml Amlodipine Besylate (Norvasc) 10 mg PO DAILY [facility] Last Admin: 05/29/18 09:42 Dose: 10 mg Aspirin (Aspirin Chewable) 81 mg PO DAILY [facility] Last Admin: 05/29/18 09:42 Dose: 81 mg Bisacodyl (Dulcolax) 10 mg VA TID PRN PRN Reason: Constipation Last Admin: 05/10/18 09:45 Dose: 10 mg Clopidogrel Bisulfate (Plavix) 75 mg PO DAILY [facility] Last Admin: 05/22/18 10:07 Dose: 75 mg Dextrose (Dextrose 50% Inj) 0 ml IV STAT PRN; Protocol PRN Reason: Hypoglycemia Protocol Dextrose (Glutose 15) 15 gm PO ONCE PRN; Protocol PRN Reason: Hypoglycemia Protocol Famotidine (Pepcid) 20 mg IVP Q12 [facility] Last Admin: 05/29/18 21:30 Dose: 20 mg Fluconazole (Diflucan) 100 mg GT DAILY [facility]; Protocol Stop: 06/05/18 10:01 Last Admin: 05/29/18 09:42 Dose: 100 mg Glucagon (Glucagen Diagnostic Kit) 1 mg IM STAT PRN; Protocol PRN Reason: Hypoglycemia Protocol Levetiracetam 1,000 mg/ Sodium (Chloride) 110 mls @ 420 mls/hr IVPB Q12H [facility] Last Admin: 05/29/18 22:33 Dose: 420 mls/hr Ibuprofen (Motrin Oral Susp) 200 mg PO Q6H PRN PRN Reason: Fever >100.4 F Last Admin: 05/27/18 18:24 Dose: 200 mg Insulin Aspart (Novolog) 0 unit SC Q6 [facility]; Protocol Last Admin: 05/29/18 23:59 Dose: Not Given Insulin Glargine (Lantus) 30 unit SC [facility] Last Admin: 05/29/18 21:30 Dose: 30 u Labetalol HCl (Trandate) 10 mg IVP Q4H PRN PRN Reason: Systolic Blood Pressure Last Admin: 05/16/18 11:45 Dose: 10 mg Lactulose (Enulose) 20 gm PO DAILY PRN PRN Reason: Constipation Last Admin: 05/25/18 16:55 Dose: 20 gm Lorazepam (Ativan) 2 mg IVP Q3 PRN PRN Reason: Agitation Last Admin: 05/29/18 18:34 Dose: 2 mg Metoprolol Tartrate (Lopressor) 75 mg PO BID [facility] Last Admin: 05/29/18 17:45 Dose: 75 mg Morphine Sulfate (Morphine) 2 mg IVP Q4 PRN PRN Reason: Pain, moderate (4-7) Last Admin: 05/29/18 00:29 Dose: 2 mg Rosuvastatin Calcium (Crestor) 5 mg PO HS [facility] Last Admin: 05/29/18 21:32 Dose: 5 mg Senna/Docusate Sodium (Senokot S 50 Mg-8.6 Mg) 1 tab PO BID [facility] Last Admin: 05/29/18 17:44 Dose: 1 tab Vitamin A (Vitamin A & D Oint Ud Foilpak) 1 ea TOP BID PRN PRN Reason: Dry skin Last Admin: 05/28/18 18:39 Dose: 1 ea - Labs Labs: 05/29/18 07:30 05/29/18 07:30 PT 16.8 SECONDS (9.7-12.2) H 05/28/18 07:15 INR 1.5 05/28/18 07:15 APTT 34 SECONDS (21-34) 05/28/18 07:15 - Additional Findings Additional findings: - Constitutional Appears: Non-toxic, No Acute Distress - Head Exam Head Exam: ATRAUMATIC, NORMAL INSPECTION, NORMOCEPHALIC - Eye Exam Eye Exam: Normal appearance Pupil Exam: NORMAL ACCOMODATION - ENT Exam ENT Exam: Mucous Membranes Moist - Neck Exam Additional comments: (+) tracheostomy tube; (-) signs of bleeding or infection - Respiratory Exam Respiratory Exam: Rhonchi. absent: Rales, Wheezes Additional comments: On tracheostomy, on ventilator 50%/5 peep/10 RR/500 Vt - Cardiovascular Exam Cardiovascular Exam: +S1, +S2 - GI/Abdominal Exam GI & Abdominal Exam: Soft, Normal Bowel Sounds. absent: Firm, Guarding, Rigid Additional comments: (+) PEG tube, without signs of bleeding or infection; (+) some serous oozing at site - Exam Exam: Alvarado in place - Extremities Exam Extremities Exam: Full ROM, Normal Inspection. absent: Calf Tenderness, Pedal Edema Additional comments: LE & UE in chronic contracture state - Neurological Exam Neurological Exam: Alert Additional comments: GCS=6 Eyes open spontanously but not purposefully; unresponsive to verbal or painful stimuli Nonverbal Cannot follow commands, but moves all extremities spontaneously - Psychiatric Exam Psychiatric exam: Normal Affect, Normal Mood - Skin Additional comments: (+) 3cm x 3cm circular ulcer to the distal radius, with eschar Assessment and Plan - Assessment and Plan (Free Text) Assessment: Patient is a 52 yo female hospitalized for asphyxiation, possible suicide attempt. Plan: Fever spikes Tmax 24H 100.4, HR WNL Motrin 200 mg Q6H PRN, Tylenol 650 mg Q6H PRN likely neurological will continue to monitor Respiratory Failure Due to Asphyxiation/Possible Suicide Attempt tracheostomy on vent @FiO2 40 s/p tracheotomy s/p G tube repositioning 05/16 Mucomyst Q4 Duonebs Q4 05/26: Breathing fine, current settings FiO2 50, PEEP 5, TV 500, Resp 18 Anoxic Brain Injury Rpt EEG: severe non specific diffuse distrubances in cortical activity, brown matter dysfunction EEG 05/04: diffuse encephalopathy with burst suppression. Repeat CT head: no bleeding MRI Brain: subacute favored over acute cerebral hypoxic insult with minimal involvement of the lower haris and the cerebellar hemispheres Keppra 1,000 mg IV Q12H Ativan 1mg q4h PRN Neurology consulted, Dr. Duff/Guilherme GCS is 6; unresponsive to painful stimuli, nonverbal, eyes open spontaneously continue to monitor Transaminitis Likely shock liver Follow LFTs DM Lantus 10 Units SC Aspart ISS Q6H HTN Metoprolol Tartrate 75 mg PO BID Norvasc 5 mg PO 1x/day Labetalol 10 mg IV Q4H PRN SBP > 140 NSTEMI Resolved Elevated troponin Has normalized ASA 81 mg PO daily (restarted 05/25) Plavix 75mg PO daily (held - given drop in Hb) Crestor 5 mg PO daily Cardio consult: Dr. Gay Leukocytosis Resolved, pt is afebrile, not tachycardic Rpt CXR 05/21: slightly low lung volumes with mild crowded bronchovascular markings and minor bibasilar atelectases 05/17 rpt BCx: neg 05/13/ rpt UCx: yeast Blood cx 05/21 negative UA: leuk est 3+, +WBC, +RBC, nitrate - BCx 05/02/18: negative UCx 05/06/18: negative Tracheal Aspirate Cx 05/08/18: yeast Alvarado changed 05/17 Cooling blanket Ice packs PRN fever Doppler b/l UE and LE: negative for DVTs Flagyl 500 mg IV Q8H Meropenem 500 mg IV Q8H PPx Heparin 5,000 Units SC Q8H (restarted 05/25) Pepcid 20mg Q12 05/25 GT Feeding reduced to 30cc/hr on hold due to abdominal distension Aspiration precautions Seizure precautions Suction PRN D5W @ 50cc/hr IV Turn and reposition q2h PT/OT Dispo: SW reports that pt may have insurance from who is [place] citizen, will look for placement. <Emmett Negrete - Last Filed: 06/09/18 17:22> Objective - Vital Signs/Intake and Output Vital Signs (last 24 hours): Temp Pulse Resp BP Pulse Ox 98.5 F 89 20 135/86 97 06/09/18 08:01 06/09/18 08:01 06/09/18 08:01 06/09/18 10:14 06/09/18 08:01 Intake and Output: 06/09/18 06/09/18 06:59 18:59 Intake Total 810 810 Output Total 500 600 Balance 310 210 - Medications Medications: Current Medications Acetaminophen (Tylenol 650 Mg Supp) 650 mg VA Q6 PRN PRN Reason: Fever >100.4 F Last Admin: 06/03/18 00:22 Dose: 650 mg Acetylcysteine (Acetylcysteine 20%) 4 ml INH RQ4 [facility] Last Admin: 06/09/18 16:27 Dose: 4 ml Albuterol/Ipratropium (Duoneb 3 Mg/0.5 Mg (3 Ml) Ud) 3 ml INH RQ4 [facility] Last Admin: 06/09/18 16:27 Dose: 3 ml Amlodipine Besylate (Norvasc) 10 mg PO DAILY [facility] Last Admin: 06/09/18 10:15 Dose: 10 mg Aspirin (Aspirin Chewable) 81 mg PO DAILY [facility] Last Admin: 06/09/18 10:15 Dose: 81 mg Bisacodyl (Dulcolax) 10 mg VA TID PRN PRN Reason: Constipation Last Admin: 05/10/18 09:45 Dose: 10 mg Clopidogrel Bisulfate (Plavix) 75 mg PO DAILY [facility] Last Admin: 05/22/18 10:07 Dose: 75 mg Dextrose (Dextrose 50% Inj) 0 ml IV STAT PRN; Protocol PRN Reason: Hypoglycemia Protocol Dextrose (Glutose 15) 15 gm PO ONCE PRN; Protocol PRN Reason: Hypoglycemia Protocol Famotidine (Pepcid) 20 mg GT DAILY [facility] Last Admin: 06/09/18 10:15 Dose: 20 mg Glucagon (Glucagen Diagnostic Kit) 1 mg IM STAT PRN; Protocol PRN Reason: Hypoglycemia Protocol Heparin Sodium (Porcine) (Heparin) 5,000 units SC Q8 [facility] Last Admin: 06/09/18 13:39 Dose: 5,000 units Ibuprofen (Motrin Oral Susp) 200 mg PO Q6H PRN PRN Reason: Fever >100.4 F Last Admin: 06/04/18 16:14 Dose: 200 mg Insulin Aspart (Novolog) 0 unit SC [facility]; Protocol Last Admin: 06/09/18 11:40 Dose: Not Given Insulin Glargine (Lantus) 40 unit SC [facility] Last Admin: 06/08/18 21:54 Dose: 40 units Insulin Human Isoph/Insulin Regular (Novolin 70/30 (70/30 Units/Ml) 10 Ml) 15 units SC BID [facility] Last Admin: 06/09/18 10:13 Dose: 15 units Labetalol HCl (Trandate) 10 mg IVP Q4H PRN PRN Reason: Systolic Blood Pressure Last Admin: 05/16/18 11:45 Dose: 10 mg Lactulose (Enulose) 20 gm PO DAILY PRN PRN Reason: Constipation Last Admin: 05/25/18 16:55 Dose: 20 gm Metoprolol Tartrate (Lopressor) 75 mg PO BID [facility] Last Admin: 06/09/18 10:14 Dose: 75 mg Rosuvastatin Calcium (Crestor) 5 mg PO [facility] Last Admin: 06/08/18 21:50 Dose: 5 mg Senna/Docusate Sodium (Senokot S 50 Mg-8.6 Mg) 1 tab PO BID [facility] Last Admin: 06/09/18 10:15 Dose: 1 tab Vitamin A (Vitamin A & D Oint Ud Foilpak) 1 ea TOP BID PRN PRN Reason: Dry skin Last Admin: 05/30/18 10:24 Dose: 1 ea - Labs Labs: 06/09/18 07:23 06/09/18 07:23 PT 16.8 SECONDS (9.7-12.2) H 05/28/18 07:15 INR 1.5 05/28/18 07:15 APTT 34 SECONDS (21-34) 05/28/18 07:15 Attending/Attestation - Attestation I have personally seen and examined this patient.: Yes I have fully participated in the care of the patient.: Yes I have reviewed all pertinent clinical information, including history, physical exam and plan: Yes Notes (Text): Assessment and the plan discussed in detail and I agree with the documentation
[2018-05-30] MEDS: (Novolog) Insulin Aspart, Recombinant 100 u/ml 10 ml vial SC SCH ×3 (06:53→18:10)
[2018-05-30 07:40] LABS: BASO # 0.1 K/uL (0.0-0.2); BASO % 0.7 % (0.0-2.0); EOS % 0.4 % (0.0-4.0); HEMOGLOBIN 10.3 g/dL (11.0-16.0); LYMPH # 2.8 K/uL (1.0-4.3); LYMPH % 30.1 % (20.0-40.0); MEAN CELL VOLUME 82.4 fL (81.0-99.0); MEAN CORPUSCULAR HEMOGLOBIN 26.9 pg (27.0-31.0); MEAN CORPUSCULAR HGB CONC 32.6 g/dL (33.0-37.0); MEAN PLATELET VOLUME 12.1 fL (7.2-11.7); MONO # 0.9 K/uL (0.0-0.8); NEUT # 5.4 K/uL (1.8-7.0); NEUT % 58.8 % (50.0-75.0); NRBC % 0.1 % (0.0-2.0); RBC 3.83 Mil/uL (3.80-5.20); RED CELL DISTRIBUTION WIDTH 17.7 % (11.5-14.5); WHITE BLOOD COUNT 9.2 K/uL (4.8-10.8)
[2018-05-30 08:03] LABS: ALB/GLOB RATIO 0.7 (1.0-2.1); ALBUMIN 3.1 g/dL (3.5-5.0); CALCIUM 8.4 mg/dl (8.6-10.4)
[2018-05-30] MEDS: Vitamins A & D Oint UD Foilpak TOP PRN (10:24)
[2018-05-30] MEDS: Docusate-Senna 50 mg-8.6 mg Tab PO SCH ×2 (10:28→18:15)
[2018-05-30] MEDS: levETIRAcetam 1,000 MG in Sodium Chloride 0.9% 100 ML IVPB SCH ×2 (12:00→22:40)
[2018-05-30] MEDS: (Lantus) Insulin Glargine, Recombinant SC SCH (22:42)
[2018-05-31] MEDS: Acetylcysteine 20% Inhal Soln (4ml) INH SCH ×6 (00:10→19:40)
[2018-05-31] MEDS: Albuterol-Ipratrop 3 mg / 0.5 (3 ml) UD INH SCH ×6 (00:10→19:40)
[2018-05-31] MEDS: (Novolog) Insulin Aspart, Recombinant 100 u/ml 10 ml vial SC SCH ×4 (00:13→18:00)
--- NOTE | 2018-05-31 07:09 | CP.PCM.PN ---
<Michael Diaz - Last Filed: 05/31/18 20:52> Subjective - Date & Time of Evaluation Date of Evaluation: 05/31/18 Time of Evaluation: 11:00 - Subjective Subjective: PGY1 Medicine progress note for Dr. Sheikh. Pt was seen and evaluated at bedside. Pt has tracheotomy tube with ventilator and PEG tube is in place. Pt had 100.3 F temp @ 8am and continues to have elevated temps in AM. Patient was breathing better with ventilator. ROS is unobtainable due to AMS. She remains nonverbal, unable to respond to commands. Pt's sister is at bedside. Objective - Vital Signs/Intake and Output Vital Signs (last 24 hours): Temp Pulse Resp BP Pulse Ox 99 F 88 24 106/76 99 05/31/18 06:53 05/31/18 06:00 05/31/18 06:00 05/31/18 06:00 05/31/18 06:00 Intake and Output: 05/31/18 05/31/18 06:59 18:59 Intake Total 1090 Output Total 800 Balance 290 - Medications Medications: Current Medications Acetaminophen (Tylenol 650 Mg Supp) 650 mg [place] Q6 PRN PRN Reason: Fever >100.4 F Last Admin: 05/30/18 14:17 Dose: 650 mg Acetylcysteine (Acetylcysteine 20%) 4 ml INH RQ4 [facility] Last Admin: 05/31/18 04:40 Dose: Not Given Albuterol/Ipratropium (Duoneb 3 Mg/0.5 Mg (3 Ml) Ud) 3 ml INH RQ4 [facility] Last Admin: 05/31/18 04:40 Dose: 3 ml Amlodipine Besylate (Norvasc) 10 mg PO DAILY [facility] Last Admin: 05/30/18 10:27 Dose: 10 mg Aspirin (Aspirin Chewable) 81 mg PO DAILY [facility] Last Admin: 05/30/18 10:24 Dose: 81 mg Bisacodyl (Dulcolax) 10 mg [place] TID PRN PRN Reason: Constipation Last Admin: 05/10/18 09:45 Dose: 10 mg Clopidogrel Bisulfate (Plavix) 75 mg PO DAILY [facility] Last Admin: 05/22/18 10:07 Dose: 75 mg Dextrose (Dextrose 50% Inj) 0 ml IV STAT PRN; Protocol PRN Reason: Hypoglycemia Protocol Dextrose (Glutose 15) 15 gm PO ONCE PRN; Protocol PRN Reason: Hypoglycemia Protocol Famotidine (Pepcid) 20 mg IVP Q12 [facility] Last Admin: 05/30/18 22:43 Dose: 20 mg Fluconazole (Diflucan) 100 mg GT DAILY [facility]; Protocol Stop: 06/05/18 10:01 Last Admin: 05/30/18 10:28 Dose: 100 mg Glucagon (Glucagen Diagnostic Kit) 1 mg IM STAT PRN; Protocol PRN Reason: Hypoglycemia Protocol Heparin Sodium (Porcine) (Heparin) 5,000 units SC Q8 [facility] Last Admin: 05/31/18 05:31 Dose: 5,000 units Ibuprofen (Motrin Oral Susp) 200 mg PO Q6H PRN PRN Reason: Fever >100.4 F Last Admin: 05/31/18 05:15 Dose: 200 mg Insulin Aspart (Novolog) 0 unit SC Q6 [facility]; Protocol Last Admin: 05/31/18 05:42 Dose: 6 units Insulin Glargine (Lantus) [address] [facility] Last Admin: 05/30/18 22:42 Dose: 30 u Labetalol HCl (Trandate) 10 mg IVP Q4H PRN PRN Reason: Systolic Blood Pressure Last Admin: 05/16/18 11:45 Dose: 10 mg Lactulose (Enulose) 20 gm PO DAILY PRN PRN Reason: Constipation Last Admin: 05/25/18 16:55 Dose: 20 gm Lorazepam (Ativan) 2 mg IVP Q3 PRN PRN Reason: Agitation Last Admin: 05/31/18 04:07 Dose: 2 mg Metoprolol Tartrate (Lopressor) 75 mg PO BID [facility] Last Admin: 05/30/18 18:15 Dose: Not Given Morphine Sulfate (Morphine) 2 mg IVP Q4 PRN PRN Reason: Pain, moderate (4-7) Last Admin: 05/31/18 02:15 Dose: 2 mg Rosuvastatin Calcium (Crestor) [address] [facility] Last Admin: 05/30/18 22:43 Dose: 5 mg Senna/Docusate Sodium (Senokot S 50 Mg-8.6 Mg) 1 tab PO BID [facility] Last Admin: 05/30/18 18:15 Dose: 1 tab Vitamin A (Vitamin A & D Oint Ud Foilpak) 1 ea TOP BID PRN PRN Reason: Dry skin Last Admin: 05/30/18 10:24 Dose: 1 ea - Labs Labs: 05/30/18 07:24 05/30/18 07:24 PT 16.8 SECONDS (9.7-12.2) H 05/28/18 07:15 INR 1.5 05/28/18 07:15 APTT 34 SECONDS (21-34) 05/28/18 07:15 - Constitutional Appears: No Acute Distress - Head Exam Head Exam: NORMAL INSPECTION - Eye Exam Additional comments: sluggish pupils; unable to follow commands/ eye contact - ENT Exam ENT Exam: Mucous Membranes Moist - Neck Exam Additional comments: (+) tracheostomy tube; (-) signs of bleeding or infection - Respiratory Exam Respiratory Exam: Clear to Ausculation Bilateral. absent: Rales, Rhonchi, Wheezes Additional comments: On tracheostomy, on ventilator 40%/5 peep/18 RR/500 Vt - Cardiovascular Exam Cardiovascular Exam: +S1, +S2 - GI/Abdominal Exam GI & Abdominal Exam: Soft Additional comments: (+) PEG tube, without signs of bleeding or infection; - Extremities Exam Extremities Exam: absent: Tenderness Additional comments: LE & UE in chronic contracture state - Neurological Exam Neurological Exam: Awake. absent: Alert, Oriented x3 Additional comments: GCS=6 Eyes open spontanously but not purposefully; unresponsive to verbal or painful stimuli Nonverbal Cannot follow commands, but moves all extremities spontaneously - Skin Additional comments: (+) 3cm x 3cm circular ulcer to the distal radius, with eschar Assessment and Plan - Assessment and Plan (Free Text) Assessment: Fever spikes - 24H fever 102 - Ice packs, cooling blanket - Motrin 200 mg Q6H PRN, Tylenol 650 mg Q6H PRN - sputum cultures from 05/25 - yeast - Per Dr. Mcgill - diflucan 100 mg GT X7 days - D/c meropenum 1g Q8H & flaggyl 500mg Q8H (total 13 days of treatment) - likely neurological - will continue to monitor Anoxic Brain Injury - rpt EEG: severe non specific diffuse distrubances in cortical activity, brown matter dysfunction - EEG 05/04: diffuse encephalopathy with burst suppression. - Repeat CT head: no bleeding - MRI Brain: subacute favored over acute cerebral hypoxic insult with minimal involvement of the lower haris and the cerebellar hemispheres - dutch 1,000 mg IV Q12H - D/C'ed as EEG was normal - Ativan 1mg q4h PRN - Neurology consulted, Dr. Duff/Guilherme - GCS is 6; unresponsive to painful stimuli, nonverbal, eyes open spontaneously - continue to monitor Respiratory Failure - Due to Asphyxiation/Possible Suicide Attempt - tracheostomy on vent @FiO2 40 - s/p tracheotomy - s/p G tube repositioning 05/16 - Mucomyst Q4 - Duonebs Q4 - 05/26: Breathing fine, current settings FiO2 50, PEEP 5, TV 500, Resp 18 Transaminitis - Likely shock liver - Follow LFTs DM - Lantus 10 Units SC - Aspart ISS Q6H HTN - Metoprolol Tartrate 75 mg PO BID - Norvasc 5 mg PO 1x/day - Labetalol 10 mg IV Q4H PRN SBP > 140 NSTEMI Resolved - Elevated troponin - has normalized - ASA 81 mg PO daily (restarted 05/25) - Plavix 75mg PO daily (held - given drop in Hb) - hold Crestor 5 mg PO daily - Cardiology consulted, Dr Gay ARF Resolved - Likely Secondary to ATN with Hypernatremia - BUN/Cr have improved - Nephrology consulted, Dr. Samuels Leukocytosis Resolved - resolved, pt is afebrile, not tachycardic - rpt CXR 05/21: slightly low lung volumes with mild crowded bronchovascular markings and minor bibasilar atelectases - 05/17 rpt BCx: neg - 05/13/ rpt UCx: yeast - Blood cx 05/21 negative - UA: leuk est 3+, +WBC, +RBC, nitrate - - BCx 05/02/18: negative - UCx 05/06/18: negative - Tracheal Aspirate Cx 05/08/18: yeast - colindres changed 05/17 - cooling blanket - ice packs PRN fever - Doppler b/l UE and LE: negative for DVTs - Flagyl 500 mg IV Q8H - Meropenem 500 mg IV Q8H PPx Heparin 5,000 Units SC Q8H (restarted 05/25) Pepcid 20mg Q12 05/25 GT Feeding reduced to 30cc/hr Aspiration precautions Seizure precautions suction PRN D5W @ 50cc/hr IV D/C'ed as patient has tube feedings Turn and reposition q2h PT/OT Dispo: SW reports that pt may have insurance from who is [place] citizen, will look for placement. D/w Dr. Caden Diaz, PGY1 <Yann Sheikh - Last Filed: 06/01/18 07:12> Objective - Vital Signs/Intake and Output Vital Signs (last 24 hours): Temp Pulse Resp BP Pulse Ox 99.2 F 89 20 116/70 100 06/01/18 00:00 06/01/18 00:00 06/01/18 00:00 06/01/18 00:00 06/01/18 00:00 Intake and Output: 06/01/18 06/01/18 06:59 18:59 Intake Total 540 490 Output Total 1000 600 Balance -460 -110 - Medications Medications: Current Medications Acetaminophen (Tylenol 650 Mg Supp) 650 mg [place] Q6 PRN PRN Reason: Fever >100.4 F Last Admin: 05/30/18 14:17 Dose: 650 mg Acetylcysteine (Acetylcysteine 20%) 4 ml INH RQ4 [facility] Last Admin: 06/01/18 04:00 Dose: Not Given Albuterol/Ipratropium (Duoneb 3 Mg/0.5 Mg (3 Ml) Ud) 3 ml INH RQ4 [facility] Last Admin: 06/01/18 04:00 Dose: 3 ml Amlodipine Besylate (Norvasc) 10 mg PO DAILY [facility] Last Admin: 05/31/18 11:09 Dose: 10 mg Aspirin (Aspirin Chewable) 81 mg PO DAILY [facility] Last Admin: 05/31/18 11:09 Dose: 81 mg Bisacodyl (Dulcolax) 10 mg [place] TID PRN PRN Reason: Constipation Last Admin: 05/10/18 09:45 Dose: 10 mg Clopidogrel Bisulfate (Plavix) 75 mg PO DAILY [facility] Last Admin: 05/22/18 10:07 Dose: 75 mg Dextrose (Dextrose 50% Inj) 0 ml IV STAT PRN; Protocol PRN Reason: Hypoglycemia Protocol Dextrose (Glutose 15) 15 gm PO ONCE PRN; Protocol PRN Reason: Hypoglycemia Protocol Famotidine (Pepcid) 20 mg IVP Q12 [facility] Last Admin: 05/31/18 21:48 Dose: 20 mg Fluconazole (Diflucan) 100 mg GT DAILY [facility]; Protocol Stop: 06/05/18 10:01 Last Admin: 05/31/18 11:12 Dose: 100 mg Glucagon (Glucagen Diagnostic Kit) 1 mg IM STAT PRN; Protocol PRN Reason: Hypoglycemia Protocol Heparin Sodium (Porcine) (Heparin) 5,000 units SC Q8 [facility] Last Admin: 06/01/18 05:40 Dose: 5,000 units Ibuprofen (Motrin Oral Susp) 200 mg PO Q6H PRN PRN Reason: Fever >100.4 F Last Admin: 06/01/18 06:33 Dose: 200 mg Insulin Aspart (Novolog) 0 unit SC Q6 [facility]; Protocol Last Admin: 06/01/18 06:32 Dose: 10 units Insulin Glargine (Lantus) [address] [facility] Last Admin: 05/31/18 21:49 Dose: 30 u Labetalol HCl (Trandate) 10 mg IVP Q4H PRN PRN Reason: Systolic Blood Pressure Last Admin: 05/16/18 11:45 Dose: 10 mg Lactulose (Enulose) 20 gm PO DAILY PRN PRN Reason: Constipation Last Admin: 05/25/18 16:55 Dose: 20 gm Lorazepam (Ativan) 2 mg IVP Q3 PRN PRN Reason: Agitation Last Admin: 05/31/18 04:07 Dose: 2 mg Metoprolol Tartrate (Lopressor) 75 mg PO BID [facility] Last Admin: 05/31/18 17:52 Dose: 75 mg Morphine Sulfate (Morphine) 2 mg IVP Q4 PRN PRN Reason: Pain, moderate (4-7) Last Admin: 05/31/18 02:15 Dose: 2 mg Rosuvastatin Calcium (Crestor) [address] [facility] Last Admin: 05/31/18 21:49 Dose: 5 mg Senna/Docusate Sodium (Senokot S 50 Mg-8.6 Mg) 1 tab PO BID [facility] Last Admin: 05/31/18 17:52 Dose: 1 tab Vitamin A (Vitamin A & D Oint Ud Foilpak) 1 ea TOP BID PRN PRN Reason: Dry skin Last Admin: 05/30/18 10:24 Dose: 1 ea - Labs Labs: 05/31/18 08:16 05/31/18 08:16 PT 16.8 SECONDS (9.7-12.2) H 05/28/18 07:15 INR 1.5 05/28/18 07:15 APTT 34 SECONDS (21-34) 05/28/18 07:15 Attending/Attestation - Attestation I have personally seen and examined this patient.: Yes I have fully participated in the care of the patient.: Yes I have reviewed all pertinent clinical information, including history, physical exam and plan: Yes
[2018-05-31 08:39] LABS: BASO # 0.1 K/uL (0.0-0.2); BASO % 0.7 % (0.0-2.0); EOS % 0.3 % (0.0-4.0); HEMOGLOBIN 10.7 g/dL (11.0-16.0); LYMPH # 2.8 K/uL (1.0-4.3); LYMPH % 26.8 % (20.0-40.0); MEAN CELL VOLUME 83.4 fL (81.0-99.0); MEAN CORPUSCULAR HEMOGLOBIN 27.3 pg (27.0-31.0); MEAN CORPUSCULAR HGB CONC 32.7 g/dL (33.0-37.0); MEAN PLATELET VOLUME 12.1 fL (7.2-11.7); MONO # 0.8 K/uL (0.0-0.8); NEUT # 6.8 K/uL (1.8-7.0); NEUT % 64.2 % (50.0-75.0); NRBC % 0.1 % (0.0-2.0); RBC 3.91 Mil/uL (3.80-5.20); RED CELL DISTRIBUTION WIDTH 17.9 % (11.5-14.5); WHITE BLOOD COUNT 10.5 K/uL (4.8-10.8)
[2018-05-31 08:42] LABS: ALB/GLOB RATIO 0.8 (1.0-2.1); ALBUMIN 3.2 g/dL (3.5-5.0); CALCIUM 8.9 mg/dl (8.6-10.4)
[2018-05-31] MEDS: Docusate-Senna 50 mg-8.6 mg Tab PO SCH ×2 (11:09→17:52)
[2018-05-31] MEDS: (Lantus) Insulin Glargine, Recombinant SC SCH (21:49)
[2018-06-01] MEDS: Albuterol-Ipratrop 3 mg / 0.5 (3 ml) UD INH SCH ×7 (00:25→23:43)
[2018-06-01] MEDS: Acetylcysteine 20% Inhal Soln (4ml) INH SCH ×7 (00:35→23:43)
[2018-06-01] MEDS: (Novolog) Insulin Aspart, Recombinant 100 u/ml 10 ml vial SC SCH ×4 (00:45→21:56)
[2018-06-01 07:23] LABS: BASO # 0.1 K/uL (0.0-0.2); BASO % 1.3 % (0.0-2.0); EOS % 0.3 % (0.0-4.0); HEMOGLOBIN 10.5 g/dL (11.0-16.0); LYMPH # 1.8 K/uL (1.0-4.3); LYMPH % 14.9 % (20.0-40.0); MEAN CORPUSCULAR HEMOGLOBIN 26.8 pg (27.0-31.0); MEAN CORPUSCULAR HGB CONC 31.5 g/dL (33.0-37.0); MEAN PLATELET VOLUME 12.6 fL (7.2-11.7); MONO # 0.8 K/uL (0.0-0.8); MONO % 6.8 % (0.0-10.0); NEUT # 9.1 K/uL (1.8-7.0); NEUT % 76.7 % (50.0-75.0); RBC 3.9 Mil/uL (3.80-5.20); RED CELL DISTRIBUTION WIDTH 18.3 % (11.5-14.5); WHITE BLOOD COUNT 11.9 K/uL (4.8-10.8)
[2018-06-01 08:10] LABS: ALB/GLOB RATIO 0.7 (1.0-2.1); ALBUMIN 3.5 g/dL (3.5-5.0); CALCIUM 8.9 mg/dl (8.6-10.4)
--- NOTE | 2018-06-01 09:38 | CP.PCM.PN ---
Subjective - Date & Time of Evaluation Date of Evaluation: 06/01/18 Time of Evaluation: 07:35 - Subjective Subjective: PGY1 Medicine progress note for Dr. Sheikh. Pt was seen and evaluated at bedside. Pt has tracheotomy tube with ventilator and PEG tube is in place. Pt had 100.3 F temp @ 8am and continues to have elevated temps in AM. Patient was breathing better with ventilator. ROS is unobtainable due to AMS. She remains nonverbal, unable to respond to commands. Pt's sister is at bedside. Objective - Vital Signs/Intake and Output Vital Signs (last 24 hours): Temp Pulse Resp BP Pulse Ox 102.0 F H 89 20 116/70 100 06/01/18 06:35 06/01/18 00:00 06/01/18 00:00 06/01/18 00:00 06/01/18 00:00 Intake and Output: 06/01/18 06/01/18 06:59 18:59 Intake Total 540 490 Output Total 1000 600 Balance -460 -110 - Medications Medications: Current Medications Acetaminophen (Tylenol 650 Mg Supp) 650 mg [place] Q6 PRN PRN Reason: Fever >100.4 F Last Admin: 05/30/18 14:17 Dose: 650 mg Acetylcysteine (Acetylcysteine 20%) 4 ml INH RQ4 [facility] Last Admin: 06/01/18 07:43 Dose: 4 ml Albuterol/Ipratropium (Duoneb 3 Mg/0.5 Mg (3 Ml) Ud) 3 ml INH RQ4 [facility] Last Admin: 06/01/18 07:43 Dose: 3 ml Amlodipine Besylate (Norvasc) 10 mg PO DAILY [facility] Last Admin: 05/31/18 11:09 Dose: 10 mg Aspirin (Aspirin Chewable) 81 mg PO DAILY [facility] Last Admin: 05/31/18 11:09 Dose: 81 mg Bisacodyl (Dulcolax) 10 mg [place] TID PRN PRN Reason: Constipation Last Admin: 05/10/18 09:45 Dose: 10 mg Clopidogrel Bisulfate (Plavix) 75 mg PO DAILY [facility] Last Admin: 05/22/18 10:07 Dose: 75 mg Dextrose (Dextrose 50% Inj) 0 ml IV STAT PRN; Protocol PRN Reason: Hypoglycemia Protocol Dextrose (Glutose 15) 15 gm PO ONCE PRN; Protocol PRN Reason: Hypoglycemia Protocol Famotidine (Pepcid) 20 mg IVP Q12 [facility] Last Admin: 05/31/18 21:48 Dose: 20 mg Fluconazole (Diflucan) 100 mg GT DAILY [facility]; Protocol Stop: 06/05/18 10:01 Last Admin: 05/31/18 11:12 Dose: 100 mg Glucagon (Glucagen Diagnostic Kit) 1 mg IM STAT PRN; Protocol PRN Reason: Hypoglycemia Protocol Heparin Sodium (Porcine) (Heparin) 5,000 units SC Q8 [facility] Last Admin: 06/01/18 05:40 Dose: 5,000 units Ibuprofen (Motrin Oral Susp) 200 mg PO Q6H PRN PRN Reason: Fever >100.4 F Last Admin: 06/01/18 06:33 Dose: 200 mg Insulin Aspart (Novolog) 0 unit SC Q6 [facility]; Protocol Last Admin: 06/01/18 06:32 Dose: 10 units Insulin Glargine (Lantus) 30 unit SC [facility] Last Admin: 05/31/18 21:49 Dose: 30 u Labetalol HCl (Trandate) 10 mg IVP Q4H PRN PRN Reason: Systolic Blood Pressure Last Admin: 05/16/18 11:45 Dose: 10 mg Lactulose (Enulose) 20 gm PO DAILY PRN PRN Reason: Constipation Last Admin: 05/25/18 16:55 Dose: 20 gm Lorazepam (Ativan) 2 mg IVP Q3 PRN PRN Reason: Agitation Last Admin: 05/31/18 04:07 Dose: 2 mg Metoprolol Tartrate (Lopressor) 75 mg PO BID [facility] Last Admin: 05/31/18 17:52 Dose: 75 mg Morphine Sulfate (Morphine) 2 mg IVP Q4 PRN PRN Reason: Pain, moderate (4-7) Last Admin: 05/31/18 02:15 Dose: 2 mg Rosuvastatin Calcium (Crestor) 5 mg PO HS [facility] Last Admin: 05/31/18 21:49 Dose: 5 mg Senna/Docusate Sodium (Senokot S 50 Mg-8.6 Mg) 1 tab PO BID [facility] Last Admin: 05/31/18 17:52 Dose: 1 tab Vitamin A (Vitamin A & D Oint Ud Foilpak) 1 ea TOP BID PRN PRN Reason: Dry skin Last Admin: 05/30/18 10:24 Dose: 1 ea - Labs Labs: 06/01/18 07:14 06/01/18 07:14 PT 16.8 SECONDS (9.7-12.2) H 05/28/18 07:15 INR 1.5 05/28/18 07:15 APTT 34 SECONDS (21-34) 05/28/18 07:15 - Constitutional Appears: No Acute Distress - Head Exam Head Exam: NORMAL INSPECTION - Eye Exam Additional comments: sluggish pupils; unable to follow commands/ eye contact - ENT Exam ENT Exam: Mucous Membranes Moist - Neck Exam Additional comments: (+) tracheostomy tube; (-) signs of bleeding or infection - Respiratory Exam Respiratory Exam: NORMAL BREATHING PATTERN Additional comments: On tracheostomy, on ventilator 40%/5 peep/18 RR/500 Vt - Cardiovascular Exam Cardiovascular Exam: +S1, +S2 - GI/Abdominal Exam GI & Abdominal Exam: Soft, Normal Bowel Sounds Additional comments: (+) PEG tube, without signs of bleeding or infection; - Extremities Exam Additional comments: LE & UE in chronic contracture state - Neurological Exam Neurological Exam: Awake. absent: Oriented x3 Additional comments: GCS=6 Eyes open spontanously but not purposefully; unresponsive to verbal or painful stimuli Nonverbal Cannot follow commands, but moves all extremities spontaneously - Skin Skin Exam: Normal Color, Warm Additional comments: (+) 3cm x 3cm circular ulcer to the distal radius, with eschar Assessment and Plan - Assessment and Plan (Free Text) Assessment: Fever spikes - 24H fever 103F, elevated WBC 11.9 - Ice packs, cooling blanket - Motrin 200 mg Q6H PRN, Tylenol 650 mg Q6H PRN - sputum cultures from 05/25 - yeast - Per Dr. Mcgill - diflucan 100 mg GT X7 days - D/c meropenum 1g Q8H & flaggyl 500mg Q8H (total 13 days of treatment) - likely neurological - will continue to monitor Hyperkalemia - K+ 5.4; however sample was hemolyzed - will monitor Anoxic Brain Injury - rpt EEG: severe non specific diffuse distrubances in cortical activity, brown matter dysfunction - EEG 05/04: diffuse encephalopathy with burst suppression. - Repeat CT head: no bleeding - MRI Brain: subacute favored over acute cerebral hypoxic insult with minimal involvement of the lower haris and the cerebellar hemispheres - keppra 1,000 mg IV Q12H - D/C'ed as EEG was normal - Ativan 1mg q4h PRN - Neurology consulted, Dr. Duff/Guilherme - GCS is 6; unresponsive to painful stimuli, nonverbal, eyes open spontaneously - continue to monitor Respiratory Failure - Due to Asphyxiation/Possible Suicide Attempt - tracheostomy on vent @FiO2 40 - s/p tracheotomy - s/p G tube repositioning 05/16 - Mucomyst Q4 - Duonebs Q4 - 05/26: Breathing fine, current settings FiO2 50, PEEP 5, TV 500, Resp 18 Transaminitis - Likely shock liver - Follow LFTs DM -Blood sugars remain elevated in high 200s to 300s - Lantus increased to 35 Units SC - Novolin 70/30 10 units BID - Accuchecks ACHS - ISS high dose HTN - Metoprolol Tartrate 75 mg PO BID - Norvasc 5 mg PO 1x/day - Labetalol 10 mg IV Q4H PRN SBP > 140 NSTEMI Resolved - Elevated troponin - has normalized - ASA 81 mg PO daily (restarted 05/25) - Plavix 75mg PO daily (held - given drop in Hb) - hold Crestor 5 mg PO daily - Cardiology consulted, Dr Gay ARF Resolved - Likely Secondary to ATN with Hypernatremia - BUN/Cr have improved - Nephrology consulted, Dr. Samuels Leukocytosis Resolved - resolved, pt is afebrile, not tachycardic - rpt CXR 05/21: slightly low lung volumes with mild crowded bronchovascular markings and minor bibasilar atelectases - 05/17 rpt BCx: neg - 05/13/ rpt UCx: yeast - Blood cx 05/21 negative - UA: leuk est 3+, +WBC, +RBC, nitrate - - BCx 05/02/18: negative - UCx 05/06/18: negative - Tracheal Aspirate Cx 05/08/18: yeast - colindres changed 05/17 - cooling blanket - ice packs PRN fever - Doppler b/l UE and LE: negative for DVTs PPx Heparin 5,000 Units SC Q8H (restarted 05/25) Pepcid 20mg Q12 05/25 GT Feeding reduced to 30cc/hr Aspiration precautions Seizure precautions suction PRN D5W @ 50cc/hr IV D/C'ed as patient has tube feedings Turn and reposition q2h PT/OT Dispo: SW reports that pt may have insurance from who is [place], will look for placement. D/w Dr. Caden Diaz, PGY1
[2018-06-01] MEDS: Docusate-Senna 50 mg-8.6 mg Tab PO SCH ×2 (10:41→18:49)
[2018-06-01] MEDS ORDERED: (Novolog) Insulin Aspart, Recombinant 100 u/ml 10 ml vial SC SCH (16:30)
[2018-06-01] MEDS: (Novolin 70/30) NPH/Regular 70/30 Units/ml 10 ml vial SC SCH ×2 (18:00→19:10)
[2018-06-01] MEDS ORDERED: (Lantus) Insulin Glargine, Recombinant SC SCH (22:00)
[2018-06-02] MEDS: Albuterol-Ipratrop 3 mg / 0.5 (3 ml) UD INH SCH ×6 (03:14→23:45)
[2018-06-02] MEDS: Acetylcysteine 20% Inhal Soln (4ml) INH SCH ×6 (03:14→23:45)
--- NOTE | 2018-06-02 07:08 | CP.PCM.PN ---
<Michael Diaz M - Last Filed: 06/02/18 15:02> Subjective - Date & Time of Evaluation Date of Evaluation: 06/02/18 Time of Evaluation: 07:30 - Subjective Subjective: PGY1 Medicine progress note for Dr. Sheikh. Pt was seen and evaluated at bedside. Pt has tracheotomy tube with ventilator and PEG tube is in place. Pt had 103 F temp @ 9:30am and continues to have elevated temps in AM, controlled by ibuprofen, Tylenol, ice, and cooling blanket. Patient remains to be clinically same as previous days. ROS is unobtainable due to AMS. She remains nonverbal, unable to respond to commands. Pt's sister is at bedside. Objective - Vital Signs/Intake and Output Vital Signs (last 24 hours): Temp Pulse Resp BP Pulse Ox 98.8 F 93 H 20 105/65 98 06/02/18 00:00 06/02/18 00:00 06/02/18 00:00 06/02/18 00:00 06/02/18 00:00 Intake and Output: 06/02/18 06/02/18 06:59 18:59 Intake Total 530 Output Total 500 Balance 30 - Medications Medications: Current Medications Acetaminophen (Tylenol 650 Mg Supp) 650 mg [place] Q6 PRN PRN Reason: Fever >100.4 F Last Admin: 05/30/18 14:17 Dose: 650 mg Acetylcysteine (Acetylcysteine 20%) 4 ml INH RQ4 [facility] Last Admin: 06/02/18 03:14 Dose: 4 ml Albuterol/Ipratropium (Duoneb 3 Mg/0.5 Mg (3 Ml) Ud) 3 ml INH RQ4 [facility] Last Admin: 06/02/18 03:14 Dose: 3 ml Amlodipine Besylate (Norvasc) 10 mg PO DAILY [facility] Last Admin: 06/01/18 10:40 Dose: 10 mg Aspirin (Aspirin Chewable) 81 mg PO DAILY [facility] Last Admin: 06/01/18 10:41 Dose: 81 mg Bisacodyl (Dulcolax) 10 mg NJ TID PRN PRN Reason: Constipation Last Admin: 05/10/18 09:45 Dose: 10 mg Clopidogrel Bisulfate (Plavix) 75 mg PO DAILY [facility] Last Admin: 05/22/18 10:07 Dose: 75 mg Dextrose (Dextrose 50% Inj) 0 ml IV STAT PRN; Protocol PRN Reason: Hypoglycemia Protocol Dextrose (Glutose 15) 15 gm PO ONCE PRN; Protocol PRN Reason: Hypoglycemia Protocol Famotidine (Pepcid) 20 mg IVP Q12 [facility] Last Admin: 06/01/18 21:23 Dose: 20 mg Fluconazole (Diflucan) 100 mg GT DAILY [facility]; Protocol Stop: 06/05/18 10:01 Last Admin: 06/01/18 10:38 Dose: 100 mg Glucagon (Glucagen Diagnostic Kit) 1 mg IM STAT PRN; Protocol PRN Reason: Hypoglycemia Protocol Heparin Sodium (Porcine) (Heparin) 5,000 units SC Q8 [facility] Last Admin: 06/02/18 06:17 Dose: 5,000 units Ibuprofen (Motrin Oral Susp) 200 mg PO Q6H PRN PRN Reason: Fever >100.4 F Last Admin: 06/01/18 18:47 Dose: 200 mg Insulin Aspart (Novolog) 0 unit SC [facility]; Protocol Last Admin: 06/01/18 21:56 Dose: Not Given Insulin Glargine (Lantus) 35 unit SC [facility] Last Admin: 06/01/18 22:04 Dose: 35 units Insulin Human Isoph/Insulin Regular (Novolin 70/30 (70/30 Units/Ml) 10 Ml) 10 units SC BID [facility] Last Admin: 06/01/18 19:10 Dose: 10 units Labetalol HCl (Trandate) 10 mg IVP Q4H PRN PRN Reason: Systolic Blood Pressure Last Admin: 05/16/18 11:45 Dose: 10 mg Lactulose (Enulose) 20 gm PO DAILY PRN PRN Reason: Constipation Last Admin: 05/25/18 16:55 Dose: 20 gm Lorazepam (Ativan) 2 mg IVP Q3 PRN PRN Reason: Agitation Last Admin: 05/31/18 04:07 Dose: 2 mg Metoprolol Tartrate (Lopressor) 75 mg PO BID [facility] Last Admin: 06/01/18 18:48 Dose: 75 mg Morphine Sulfate (Morphine) 2 mg IVP Q4 PRN PRN Reason: Pain, moderate (4-7) Last Admin: 06/01/18 21:10 Dose: 2 mg Rosuvastatin Calcium (Crestor) 5 mg PO [facility] Last Admin: 06/01/18 21:23 Dose: 5 mg Senna/Docusate Sodium (Senokot S 50 Mg-8.6 Mg) 1 tab PO BID [facility] Last Admin: 06/01/18 18:49 Dose: 1 tab Vitamin A (Vitamin A & D Oint Ud Foilpak) 1 ea TOP BID PRN PRN Reason: Dry skin Last Admin: 05/30/18 10:24 Dose: 1 ea - Labs Labs: 06/01/18 07:14 06/01/18 07:14 PT 16.8 SECONDS (9.7-12.2) H 05/28/18 07:15 INR 1.5 05/28/18 07:15 APTT 34 SECONDS (21-34) 05/28/18 07:15 - Constitutional Appears: No Acute Distress - Head Exam Head Exam: NORMAL INSPECTION - Eye Exam Additional comments: sluggish pupils; unable to follow commands/ eye contact - ENT Exam ENT Exam: Mucous Membranes Moist - Neck Exam Additional comments: (+) tracheostomy tube; (-) signs of bleeding or infection - Respiratory Exam Respiratory Exam: NORMAL BREATHING PATTERN. absent: Rales, Wheezes Additional comments: On tracheostomy, on ventilator 40%/5 peep/18 RR/500 Vt - Cardiovascular Exam Cardiovascular Exam: +S1, +S2 - GI/Abdominal Exam GI & Abdominal Exam: Soft, Normal Bowel Sounds Additional comments: (+) PEG tube, without signs of bleeding or infection; 11 wilmer removed from surgical site - Extremities Exam Extremities Exam: absent: Joint Swelling, Pedal Edema Additional comments: LE & UE in chronic contracture state - Back Exam Back Exam: absent: CVA tenderness (L), CVA tenderness (R), rash noted - Neurological Exam Additional comments: GCS=6 Eyes open spontanously but not purposefully; unresponsive to verbal or painful stimuli Nonverbal Cannot follow commands, but moves all extremities spontaneously - Skin Skin Exam: Dry, Normal Color, Warm Additional comments: (+) 3cm x 3cm circular ulcer to the distal radius, with eschar Assessment and Plan - Assessment and Plan (Free Text) Assessment: 57 yr F w/ no known medical history presented TO ED unresponsive; had extensive ICU stay now currently has anoxic brain injury: Fever spikes - 24H fever 103F, elevated WBC 11.4 - Ice packs, cooling blanket - Motrin 200 mg Q6H PRN, Tylenol 650 mg Q6H PRN - sputum cultures from 05/25 - yeast - Per Dr. Mcgill - diflucan 100 mg GT X7 days - D/c meropenum 1g Q8H & flaggyl 500mg Q8H (total 13 days of treatment) - likely neurological - will continue to monitor Hypernatremia - Na+ 154 - start D5W @75ml/hr - increase insulin- see below plan Acute Renal Injury - BUN/ Cr increasing - currently 47/2.5 - likely due to dehydration - Start D5W @75 ml/hr - increase insulin - see below Anoxic Brain Injury - rpt EEG: severe non specific diffuse distrubances in cortical activity, brown matter dysfunction - EEG 05/04: diffuse encephalopathy with burst suppression. - Repeat CT head: no bleeding - MRI Brain: subacute favored over acute cerebral hypoxic insult with minimal involvement of the lower haris and the cerebellar hemispheres - keppra 1,000 mg IV Q12H - D/C'ed as EEG was normal - Ativan 1mg q4h PRN - Neurology consulted, Dr. Duff/Guilherme - GCS is 6; unresponsive to painful stimuli, nonverbal, eyes open spontaneously - continue to monitor Respiratory Failure - Due to Asphyxiation/Possible Suicide Attempt - tracheostomy on vent @FiO2 40 - s/p tracheotomy - s/p G tube repositioning 05/16 - Mucomyst Q4 - Duonebs Q4 - 05/26: Breathing fine, current settings FiO2 50, PEEP 5, TV 500, Resp 18 Transaminitis - Likely shock liver - Follow LFTs DM -Blood sugars remain elevated in high 200s to 300s - insulin increased 2/2 to D5W @75ml/hr started on 06/02 - Lantus increased to 40 Units SC - Novolin 70/30 15 units BID - Accuchecks ACHS - ISS high dose HTN - Metoprolol Tartrate 75 mg PO BID - Norvasc 5 mg PO 1x/day - Labetalol 10 mg IV Q4H PRN SBP > 140 Hyperkalemia Resolved - K+ 5.4; however sample was hemolyzed - will monitor NSTEMI Resolved - Elevated troponin - has normalized - ASA 81 mg PO daily (restarted 05/25) - Plavix 75mg PO daily (held - given drop in Hb) - hold Crestor 5 mg PO daily - Cardiology consulted, Dr Gay ARF Resolved - Likely Secondary to ATN with Hypernatremia - BUN/Cr have improved - Nephrology consulted, Dr. Samuels Leukocytosis Resolved - resolved, pt is afebrile, not tachycardic - rpt CXR 05/21: slightly low lung volumes with mild crowded bronchovascular markings and minor bibasilar atelectases - 05/17 rpt BCx: neg - 05/13/ rpt UCx: yeast - Blood cx 05/21 negative - UA: leuk est 3+, +WBC, +RBC, nitrate - - BCx 05/02/18: negative - UCx 05/06/18: negative - Tracheal Aspirate Cx 05/08/18: yeast - colindres changed 05/17 - cooling blanket - ice packs PRN fever - Doppler b/l UE and LE: negative for DVTs PPx Heparin 5,000 Units SC Q8H (restarted 05/25) Pepcid 20mg Q12 05/25 GT Feeding reduced to 30cc/hr Aspiration precautions Seizure precautions suction PRN D5W @ 50cc/hr IV D/C'ed as patient has tube feedings Turn and reposition q2h PT/OT Dispo: SW reports that pt may have insurance from who is [place], will look for placement. Michael Diaz, PGY1 <Yann Sheikh H - Last Filed: 06/02/18 17:02> Objective - Vital Signs/Intake and Output Vital Signs (last 24 hours): Temp Pulse Resp BP Pulse Ox 101.3 F H 98 H 20 103/75 98 06/02/18 14:02 06/02/18 08:07 06/02/18 08:07 06/02/18 09:32 06/02/18 08:07 Intake and Output: 06/02/18 06/02/18 06:59 18:59 Intake Total 530 490 Output Total 500 600 Balance 30 -110 - Medications Medications: Current Medications Acetaminophen (Tylenol 650 Mg Supp) 650 mg [place] Q6 PRN PRN Reason: Fever >100.4 F Last Admin: 06/02/18 14:02 Dose: 650 mg Acetylcysteine (Acetylcysteine 20%) 4 ml INH RQ4 [facility] Last Admin: 06/02/18 16:21 Dose: 4 ml Albuterol/Ipratropium (Duoneb 3 Mg/0.5 Mg (3 Ml) Ud) 3 ml INH RQ4 [facility] Last Admin: 06/02/18 16:20 Dose: 3 ml Amlodipine Besylate (Norvasc) 10 mg PO DAILY [facility] Last Admin: 06/02/18 09:32 Dose: 10 mg Aspirin (Aspirin Chewable) 81 mg PO DAILY [facility] Last Admin: 06/02/18 09:31 Dose: 81 mg Bisacodyl (Dulcolax) 10 mg [place] TID PRN PRN Reason: Constipation Last Admin: 05/10/18 09:45 Dose: 10 mg Clopidogrel Bisulfate (Plavix) 75 mg PO DAILY [facility] Last Admin: 05/22/18 10:07 Dose: 75 mg Dextrose (Dextrose 50% Inj) 0 ml IV STAT PRN; Protocol PRN Reason: Hypoglycemia Protocol Dextrose (Glutose 15) 15 gm PO ONCE PRN; Protocol PRN Reason: Hypoglycemia Protocol Famotidine (Pepcid) 20 mg IVP Q12 [facility] Last Admin: 06/02/18 09:37 Dose: 20 mg Fluconazole (Diflucan) 100 mg GT DAILY [facility]; Protocol Stop: 06/05/18 10:01 Last Admin: 06/02/18 09:32 Dose: 100 mg Glucagon (Glucagen Diagnostic Kit) 1 mg IM STAT PRN; Protocol PRN Reason: Hypoglycemia Protocol Heparin Sodium (Porcine) (Heparin) 5,000 units SC Q8 [facility] Last Admin: 06/02/18 13:51 Dose: 5,000 units Dextrose (Dextrose 5% In Water 1000 Ml) 1,000 mls @ 75 mls/hr IV .[id number] [facility] Last Admin: 06/02/18 11:44 Dose: 75 mls/hr Ibuprofen (Motrin Oral Susp) 200 mg PO Q6H PRN PRN Reason: Fever >100.4 F Last Admin: 06/02/18 08:09 Dose: 200 mg Insulin Aspart (Novolog) 0 unit SC ACHS [facility]; Protocol Last Admin: 06/02/18 11:46 Dose: 2 units Insulin Glargine (Lantus) 40 unit SC HS [facility] Insulin Human Isoph/Insulin Regular (Novolin 70/30 (70/30 Units/Ml) 10 Ml) 15 units SC BID [facility] Labetalol HCl (Trandate) 10 mg IVP Q4H PRN PRN Reason: Systolic Blood Pressure Last Admin: 05/16/18 11:45 Dose: 10 mg Lactulose (Enulose) 20 gm PO DAILY PRN PRN Reason: Constipation Last Admin: 05/25/18 16:55 Dose: 20 gm Lorazepam (Ativan) 2 mg IVP Q3 PRN PRN Reason: Agitation Last Admin: 05/31/18 04:07 Dose: 2 mg Metoprolol Tartrate (Lopressor) 75 mg PO BID [facility] Last Admin: 06/02/18 09:32 Dose: 75 mg Morphine Sulfate (Morphine) 2 mg IVP Q4 PRN PRN Reason: Pain, moderate (4-7) Last Admin: 06/01/18 21:10 Dose: 2 mg Rosuvastatin Calcium (Crestor) 5 mg PO HS [facility] Last Admin: 06/01/18 21:23 Dose: 5 mg Senna/Docusate Sodium (Senokot S 50 Mg-8.6 Mg) 1 tab PO BID [facility] Last Admin: 06/02/18 09:33 Dose: 1 tab Vitamin A (Vitamin A & D Oint Ud Foilpak) 1 ea TOP BID PRN PRN Reason: Dry skin Last Admin: 05/30/18 10:24 Dose: 1 ea - Labs Labs: 06/02/18 08:11 06/02/18 08:11 PT 16.8 SECONDS (9.7-12.2) H 05/28/18 07:15 INR 1.5 05/28/18 07:15 APTT 34 SECONDS (21-34) 05/28/18 07:15 Attending/Attestation - Attestation I have personally seen and examined this patient.: Yes I have fully participated in the care of the patient.: Yes I have reviewed all pertinent clinical information, including history, physical exam and plan: Yes Notes (Text): 06/02/18 17:00 Medical attending: Patient was seen and examined by me as well. The patient's situation is not greatly changed from before. There are still fevers present. Also her Na and BUN and creatine were elevated so will start a slow IVF of D5W We also increased the insulin as well. Yann Sheikh
[2018-06-02] MEDS: (Novolog) Insulin Aspart, Recombinant 100 u/ml 10 ml vial SC SCH ×4 (07:54→22:06)
[2018-06-02 08:27] LABS: BASO # 0.1 K/uL (0.0-0.2); BASO % 0.7 % (0.0-2.0); EOS % 0.1 % (0.0-4.0); HEMOGLOBIN 10.4 g/dL (11.0-16.0); LYMPH # 2.4 K/uL (1.0-4.3); LYMPH % 21.3 % (20.0-40.0); MEAN CELL VOLUME 85.1 fL (81.0-99.0); MEAN CORPUSCULAR HEMOGLOBIN 27.2 pg (27.0-31.0); MONO # 0.8 K/uL (0.0-0.8); NEUT # 8.1 K/uL (1.8-7.0); NEUT % 70.9 % (50.0-75.0); NRBC % 0.1 % (0.0-2.0); RBC 3.82 Mil/uL (3.80-5.20); RED CELL DISTRIBUTION WIDTH 17.9 % (11.5-14.5); WHITE BLOOD COUNT 11.4 K/uL (4.8-10.8)
[2018-06-02 08:49] LABS: ALB/GLOB RATIO 0.7 (1.0-2.1); ALBUMIN 3.2 g/dL (3.5-5.0); CALCIUM 8.5 mg/dl (8.6-10.4)
[2018-06-02] MEDS: Docusate-Senna 50 mg-8.6 mg Tab PO SCH ×2 (09:33→17:49)
[2018-06-02] MEDS: (Novolin 70/30) NPH/Regular 70/30 Units/ml 10 ml vial SC SCH ×2 (09:47→18:53)
[2018-06-02] MEDS: (Lantus) Insulin Glargine, Recombinant SC SCH (22:49)
[2018-06-03] MEDS: Acetylcysteine 20% Inhal Soln (4ml) INH SCH ×7 (03:48→23:45)
[2018-06-03] MEDS: Albuterol-Ipratrop 3 mg / 0.5 (3 ml) UD INH SCH ×6 (03:48→23:45)
--- NOTE | 2018-06-03 07:34 | CP.PCM.PN ---
<Arianne Burkett - Last Filed: 06/03/18 19:32> Subjective - Date & Time of Evaluation Date of Evaluation: 06/03/18 Time of Evaluation: 09:15 - Subjective Subjective: PGY-1 Arianne Burkett D.O. Medicine progress note for Dr. Sheikh's service: Patient was seen and examined this morning. Patient with trach and PEG. Nursing reports continued high-grade fevers, low BP, and decreased urine output. ROS unobtainable. Friend at bedside- explained worsening kidney function and grave prognosis. Objective - Vital Signs/Intake and Output Vital Signs (last 24 hours): Temp Pulse Resp BP Pulse Ox 99.8 F H 98 H 20 99/64 L 100 06/03/18 01:22 06/03/18 00:00 06/03/18 00:00 06/03/18 00:00 06/03/18 00:00 Intake and Output: 06/03/18 06/03/18 06:59 18:59 Intake Total 490 Output Total 700 Balance -210 - Medications Medications: Current Medications Acetaminophen (Tylenol 650 Mg Supp) 650 mg ND Q6 PRN PRN Reason: Fever >100.4 F Last Admin: 06/03/18 00:22 Dose: 650 mg Acetylcysteine (Acetylcysteine 20%) 4 ml INH RQ4 [facility] Last Admin: 06/03/18 03:48 Dose: Not Given Albuterol/Ipratropium (Duoneb 3 Mg/0.5 Mg (3 Ml) Ud) 3 ml INH RQ4 [facility] Last Admin: 06/03/18 03:48 Dose: Not Given Amlodipine Besylate (Norvasc) 10 mg PO DAILY [facility] Last Admin: 06/02/18 09:32 Dose: 10 mg Aspirin (Aspirin Chewable) 81 mg PO DAILY [facility] Last Admin: 06/02/18 09:31 Dose: 81 mg Bisacodyl (Dulcolax) 10 mg ND TID PRN PRN Reason: Constipation Last Admin: 05/10/18 09:45 Dose: 10 mg Clopidogrel Bisulfate (Plavix) 75 mg PO DAILY [facility] Last Admin: 05/22/18 10:07 Dose: 75 mg Dextrose (Dextrose 50% Inj) 0 ml IV STAT PRN; Protocol PRN Reason: Hypoglycemia Protocol Dextrose (Glutose 15) 15 gm PO ONCE PRN; Protocol PRN Reason: Hypoglycemia Protocol Famotidine (Pepcid) 20 mg IVP Q12 [facility] Last Admin: 06/02/18 22:48 Dose: 20 mg Fluconazole (Diflucan) 100 mg GT DAILY [facility]; Protocol Stop: 06/05/18 10:01 Last Admin: 06/02/18 09:32 Dose: 100 mg Glucagon (Glucagen Diagnostic Kit) 1 mg IM STAT PRN; Protocol PRN Reason: Hypoglycemia Protocol Heparin Sodium (Porcine) (Heparin) 5,000 units SC Q8 [facility] Last Admin: 06/03/18 06:44 Dose: 5,000 units Dextrose (Dextrose 5% In Water 1000 Ml) 1,000 mls @ 75 mls/hr IV .[id number] [facility] Last Admin: 06/03/18 01:27 Dose: Not Given Ibuprofen (Motrin Oral Susp) 200 mg PO Q6H PRN PRN Reason: Fever >100.4 F Last Admin: 06/02/18 17:49 Dose: 200 mg Insulin Aspart (Novolog) 0 unit SC ACHS [facility]; Protocol Last Admin: 06/02/18 22:06 Dose: Not Given Insulin Glargine (Lantus) 40 unit SC [facility] Last Admin: 06/02/18 22:49 Dose: 40 units Insulin Human Isoph/Insulin Regular (Novolin 70/30 (70/30 Units/Ml) 10 Ml) 15 units SC BID [facility] Last Admin: 06/02/18 18:53 Dose: 15 units Labetalol HCl (Trandate) 10 mg IVP Q4H PRN PRN Reason: Systolic Blood Pressure Last Admin: 05/16/18 11:45 Dose: 10 mg Lactulose (Enulose) 20 gm PO DAILY PRN PRN Reason: Constipation Last Admin: 05/25/18 16:55 Dose: 20 gm Lorazepam (Ativan) 2 mg IVP Q3 PRN PRN Reason: Agitation Last Admin: 06/03/18 01:45 Dose: 2 mg Metoprolol Tartrate (Lopressor) 75 mg PO BID [facility] Last Admin: 06/02/18 17:49 Dose: 75 mg Morphine Sulfate (Morphine) 2 mg IVP Q4 PRN PRN Reason: Pain, moderate (4-7) Last Admin: 06/01/18 21:10 Dose: 2 mg Rosuvastatin Calcium (Crestor) 5 mg PO [facility] Last Admin: 06/02/18 22:48 Dose: 5 mg Senna/Docusate Sodium (Senokot S 50 Mg-8.6 Mg) 1 tab PO BID [facility] Last Admin: 06/02/18 17:49 Dose: 1 tab Vitamin A (Vitamin A & D Oint Ud Foilpak) 1 ea TOP BID PRN PRN Reason: Dry skin Last Admin: 05/30/18 10:24 Dose: 1 ea - Labs Labs: 06/02/18 08:11 06/02/18 08:11 PT 16.8 SECONDS (9.7-12.2) H 05/28/18 07:15 INR 1.5 05/28/18 07:15 APTT 34 SECONDS (21-34) 05/28/18 07:15 - Constitutional Appears: No Acute Distress - Head Exam Head Exam: NORMAL INSPECTION - Eye Exam Pupil Exam: PERRL (very sluggish) - ENT Exam ENT Exam: Mucous Membranes Moist - Neck Exam Additional comments: trach - Respiratory Exam Respiratory Exam: NORMAL BREATHING PATTERN (on vent, FiO2 40%) - Cardiovascular Exam Cardiovascular Exam: REGULAR RHYTHM, +S1, +S2 - GI/Abdominal Exam GI & Abdominal Exam: Soft Additional comments: PEG- no signs of infection - Rectal Exam Rectal Exam: Deferred - Extremities Exam Extremities Exam: Normal Capillary Refill. absent: Pedal Edema Additional comments: contracted - Back Exam Back Exam: NORMAL INSPECTION Additional comments: no ulcers - Neurological Exam Neurological Exam: absent: Alert, Awake - Skin Skin Exam: Dry, Intact, Normal Color, Warm Assessment and Plan - Assessment and Plan (Free Text) Assessment: 52 year old female visiting from with probable past medical history of diabetes mellitus type 2 who was found unresponsive by on 05/01 (reportedly). EMS was called and patient was resuscitated and subsequently intubated on the field and brought to the ED. Code stroke was called, patient was subsequently admitted to ICU for close monitoring and evaluation for anoxic brain injury. Patient was noted on physical exam to have ring monge suggestive of suicidal attempt by hanging. [employer] involved and state high likelihood of suicidal attempt. Patient is s/p tracheostomy and PEG. Downgraded to telemetry. After several discussions with family, including and son, patient remains full code. Plan: Anoxic Brain Injury - Repeat EEG: severe non specific diffuse distrubances in cortical activity, brown matter dysfunction - EEG 05/04: diffuse encephalopathy with burst suppression. - Repeat CT head: no bleeding - MRI Brain: subacute favored over acute cerebral hypoxic insult with minimal involvement of the lower haris and the cerebellar hemispheres - keppra 1,000 mg IV Q12H - D/C'ed as EEG was normal - Ativan 1mg q4h PRN - Aspiration precautions - Seizure precautions - Neurology consulted, Dr. Duff/Guilherme - GCS is 6; unresponsive to painful stimuli, nonverbal, eyes open spontaneously - Turn and reposition q2h Acute Renal Injury with oliguria- worsening - BUN/ Cr increasing - likely due to dehydration - Increase D5W to 150 mL/hr - Increase insulin - see below - Nephrology consulted, Dr. Samuels Fevers- worsening - 24H fever 103F, elevated WBC 11.4 - Ice packs, cooling blanket - Motrin 200 mg Q6H PRN, Tylenol 650 mg Q6H PRN - sputum cultures from 05/25 - yeast - Per Dr. Mcgill - diflucan 100 mg GT X7 days - D/c meropenum 1g Q8H & flaggyl 500mg Q8H (total 13 days of treatment) - likely neurological - will continue to monitor - Start Rocephin 1 g IV BID - Start Azithromycin 500 mg IV daily Hypernatremia- worsening - Na+ 154 - start D5W @75ml/hr - increase insulin- see below plan Leukocytosis- worsening - rpt CXR 05/21: slightly low lung volumes with mild crowded bronchovascular markings and minor bibasilar atelectases - 05/17 rpt BCx: neg - 05/13/ rpt UCx: yeast - Blood cx 05/21 negative - UA: leuk est 3+, +WBC, +RBC, nitrate - - BCx 05/02/18: negative - UCx 05/06/18: negative - Tracheal Aspirate Cx 05/08/18: yeast - colindres changed 05/17 - cooling blanket - ice packs PRN fever - Doppler b/l UE and LE: negative for DVTs Respiratory Failure - Due to Asphyxiation/Possible Suicide Attempt - tracheostomy on vent @FiO2 40 - s/p tracheotomy - s/p G tube repositioning 05/16 - Mucomyst Q4 - Duonebs Q4 - suction prn - 05/26: Breathing fine, current settings FiO2 50, PEEP 5, TV 500, Resp 18 Transaminitis- worsening - Likely shock liver - Follow LFTs DM- worsening -Blood sugars remain elevated in high 200s to 300s - insulin increased 2/2 to D5W @75ml/hr started on 06/02 - Lantus increased to 40 Units SC - Novolin 70/30 15 units BID - Accuchecks ACHS - ISS high dose HTN- now hypotensive - No pressors - Increase IVF to rate of 150 mL/hr - Metoprolol Tartrate 75 mg PO BID- holding parameters - Norvasc 5 mg PO 1x/day- holdign parameters - Labetalol 10 mg IV Q4H PRN SBP > 140 Hyperkalemia Resolved - will monitor NSTEMI Resolved - Elevated troponin - has normalized - ASA 81 mg PO daily (restarted 05/25) - Plavix 75mg PO daily (held - given drop in Hb) - hold Crestor 5 mg PO daily - Cardiology consulted, Dr Gay PPx - Heparin 5,000 Units SC Q8H (restarted 05/25) - Pepcid 20mg Q12 - 05/25 GT Feeding reduced to 30cc/hr - PT/OT Case was discussed with attending, Dr. Sheikh. <Yann Sheikh H - Last Filed: 06/04/18 07:44> Objective - Vital Signs/Intake and Output Vital Signs (last 24 hours): Temp Pulse Resp BP Pulse Ox 99.8 F H 99 H 20 95/56 L 100 06/04/18 05:00 06/04/18 00:00 06/04/18 00:00 06/04/18 00:00 06/04/18 00:00 Intake and Output: 06/04/18 06/04/18 06:59 18:59 Intake Total 2630 Output Total 600 Balance 2030 - Medications Medications: Current Medications Acetaminophen (Tylenol 650 Mg Supp) 650 mg ND Q6 PRN PRN Reason: Fever >100.4 F Last Admin: 06/03/18 00:22 Dose: 650 mg Acetylcysteine (Acetylcysteine 20%) 4 ml INH RQ4 [facility] Last Admin: 06/04/18 03:57 Dose: 4 ml Albuterol/Ipratropium (Duoneb 3 Mg/0.5 Mg (3 Ml) Ud) 3 ml INH RQ4 [facility] Last Admin: 06/04/18 03:57 Dose: 3 ml Amlodipine Besylate (Norvasc) 10 mg PO DAILY [facility] Last Admin: 06/03/18 11:24 Dose: Not Given Aspirin (Aspirin Chewable) 81 mg PO DAILY [facility] Last Admin: 06/03/18 11:27 Dose: 81 mg Bisacodyl (Dulcolax) 10 mg ND TID PRN PRN Reason: Constipation Last Admin: 05/10/18 09:45 Dose: 10 mg Clopidogrel Bisulfate (Plavix) 75 mg PO DAILY [facility] Last Admin: 05/22/18 10:07 Dose: 75 mg Dextrose (Dextrose 50% Inj) 0 ml IV STAT PRN; Protocol PRN Reason: Hypoglycemia Protocol Dextrose (Glutose 15) 15 gm PO ONCE PRN; Protocol PRN Reason: Hypoglycemia Protocol Famotidine (Pepcid) 20 mg IVP Q12 [facility] Last Admin: 06/03/18 22:15 Dose: 20 mg Fluconazole (Diflucan) 100 mg GT DAILY [facility]; Protocol Stop: 06/05/18 10:01 Last Admin: 06/03/18 11:23 Dose: 100 mg Glucagon (Glucagen Diagnostic Kit) 1 mg IM STAT PRN; Protocol PRN Reason: Hypoglycemia Protocol Heparin Sodium (Porcine) (Heparin) 5,000 units SC Q8 [facility] Last Admin: 06/04/18 06:21 Dose: 5,000 units Dextrose (Dextrose 5% In Water 1000 Ml) 1,000 mls @ 150 mls/hr IV .Q6H40M [facility] Last Admin: 06/04/18 03:56 Dose: Not Given Azithromycin 500 mg/ Sodium (Chloride) 250 mls @ 250 mls/hr IVPB DAILY [facility]; Protocol Last Admin: 06/03/18 19:10 Dose: 250 mls/hr Ceftriaxone Sodium 1 gm/ (Sodium Chloride) 100 mls @ 100 mls/hr IVPB Q12H [facility]; Protocol Last Admin: 06/04/18 03:52 Dose: 100 mls/hr Ibuprofen (Motrin Oral Susp) 200 mg PO Q6H PRN PRN Reason: Fever >100.4 F Last Admin: 06/04/18 06:22 Dose: 200 mg Insulin Aspart (Novolog) 0 unit SC ACHS [facility]; Protocol Last Admin: 06/03/18 21:26 Dose: Not Given Insulin Glargine (Lantus) 40 unit SC HS [facility] Last Admin: 06/03/18 22:11 Dose: 40 units Insulin Human Isoph/Insulin Regular (Novolin 70/30 (70/30 Units/Ml) 10 Ml) 15 units SC BID [facility] Last Admin: 06/03/18 18:50 Dose: 15 units Labetalol HCl (Trandate) 10 mg IVP Q4H PRN PRN Reason: Systolic Blood Pressure Last Admin: 05/16/18 11:45 Dose: 10 mg Lactulose (Enulose) 20 gm PO DAILY PRN PRN Reason: Constipation Last Admin: 05/25/18 16:55 Dose: 20 gm Lorazepam (Ativan) 2 mg IVP Q3 PRN PRN Reason: Agitation Last Admin: 06/03/18 01:45 Dose: 2 mg Metoprolol Tartrate (Lopressor) 75 mg PO BID [facility] Last Admin: 06/03/18 18:08 Dose: Not Given Morphine Sulfate (Morphine) 2 mg IVP Q4 PRN PRN Reason: Pain, moderate (4-7) Last Admin: 06/01/18 21:10 Dose: 2 mg Rosuvastatin Calcium (Crestor) 5 mg PO HS [facility] Last Admin: 06/03/18 22:11 Dose: 5 mg Senna/Docusate Sodium (Senokot S 50 Mg-8.6 Mg) 1 tab PO BID [facility] Last Admin: 06/03/18 19:10 Dose: 1 tab Vitamin A (Vitamin A & D Oint Ud Foilpak) 1 ea TOP BID PRN PRN Reason: Dry skin Last Admin: 05/30/18 10:24 Dose: 1 ea - Labs Labs: 06/03/18 07:58 06/03/18 07:58 PT 16.8 SECONDS (9.7-12.2) H 05/28/18 07:15 INR 1.5 05/28/18 07:15 APTT 34 SECONDS (21-34) 05/28/18 07:15 Attending/Attestation - Attestation I have personally seen and examined this patient.: Yes I have fully participated in the care of the patient.: Yes I have reviewed all pertinent clinical information, including history, physical exam and plan: Yes Notes (Text): 06/04/18 07:42 Medical attending: Unfourtunately the patient's renal function for past two days has steadily worsened. We will increase the IVF the patient is on however we explained to the family in the room that it was not looking good. We had a goodwill ambassador explain that given this was another organ failure that the patient may soon. IVF was increased to 150 cc to see if this will help with the BUN and creatine and Na. The urine output per the RNs seeing patient has been oliguric levels today and yesterday Yann Sheikh
[2018-06-03 08:07] LABS: BASO # 0.1 K/uL (0.0-0.2); BASO % 0.8 % (0.0-2.0); EOS # 0.1 K/uL (0.0-0.7); HEMOGLOBIN 10.5 g/dL (11.0-16.0); LYMPH # 1.1 K/uL (1.0-4.3); LYMPH % 8.4 % (20.0-40.0); MEAN CELL VOLUME 85.6 fL (81.0-99.0); MEAN CORPUSCULAR HEMOGLOBIN 27.5 pg (27.0-31.0); MEAN CORPUSCULAR HGB CONC 32.1 g/dL (33.0-37.0); MEAN PLATELET VOLUME 13.3 fL (7.2-11.7); MONO # 0.4 K/uL (0.0-0.8); MONO % 3.3 % (0.0-10.0); NEUT # 11.6 K/uL (1.8-7.0); NEUT % 86.5 % (50.0-75.0); NRBC % 0.3 % (0.0-2.0); PLATELET COUNT 192 K/uL (130-400); RBC 3.81 Mil/uL (3.80-5.20); RED CELL DISTRIBUTION WIDTH 17.6 % (11.5-14.5); WHITE BLOOD COUNT 13.4 K/uL (4.8-10.8)
[2018-06-03] MEDS: (Novolog) Insulin Aspart, Recombinant 100 u/ml 10 ml vial SC SCH ×4 (08:26→21:26)
[2018-06-03 08:36] LABS: ALB/GLOB RATIO 0.7 (1.0-2.1); ALBUMIN 3.5 g/dL (3.5-5.0); CALCIUM 9.3 mg/dl (8.6-10.4)
[2018-06-03 09:43] LABS: BANDS 1 % (0-2); LYMPHOCYTE 8 % (20-40); MONOCYTE 2 % (0-10); NEUTROPHIL 89 % (50-75); PLATELET ESTIMATE NORMAL (NORMAL); TOTAL CELLS COUNTED 100
[2018-06-03 09:44] LABS: ANISOCYTOSIS SLIGHT; HYPOCHROMIC SLIGHT; POIKILOCYTOSIS SLIGHT; TEARDROP CELLS SLIGHT
[2018-06-03] MEDS: Docusate-Senna 50 mg-8.6 mg Tab PO SCH ×2 (11:23→19:10)
[2018-06-03] MEDS: (Novolin 70/30) NPH/Regular 70/30 Units/ml 10 ml vial SC SCH ×2 (11:24→18:50)
[2018-06-03] MEDS: Azithromycin 500 MG in Sodium Chloride 0.9% 250 ML IVPB SCH ×3 (16:45→19:10)
[2018-06-03] MEDS: (Lantus) Insulin Glargine, Recombinant SC SCH (22:11)
[2018-06-04] MEDS: Albuterol-Ipratrop 3 mg / 0.5 (3 ml) UD INH SCH ×5 (03:57→20:19)
[2018-06-04] MEDS: Acetylcysteine 20% Inhal Soln (4ml) INH SCH ×5 (03:57→20:19)
--- NOTE | 2018-06-04 07:03 | CP.PCM.PN ---
<Michael Diaz - Last Filed: 06/04/18 18:14> Subjective - Date & Time of Evaluation Date of Evaluation: 06/04/18 Time of Evaluation: 07:25 - Subjective Subjective: PGY1 Medicine progress note for Dr. Sheikh. Pt was seen and evaluated at bedside. Pt has tracheotomy tube with ventilator and PEG tube is in place. Pt had Tmax 24h 101.8 F temp. Pt continues to have elevated temps in AM, controlled by ibuprofen, Tylenol, ice, and cooling blanket. Patient remains to be clinically same as previous days. ROS is unobtainable due to AMS. She remains nonverbal, unable to respond to commands. Pt's sister is at bedside. Objective - Vital Signs/Intake and Output Vital Signs (last 24 hours): Temp Pulse Resp BP Pulse Ox 101.2 F H 99 H 20 95/56 L 100 06/04/18 00:00 06/04/18 00:00 06/04/18 00:00 06/04/18 00:00 06/04/18 00:00 Intake and Output: 06/04/18 06/04/18 06:59 18:59 Intake Total 2630 Output Total 600 Balance 2030 - Medications Medications: Current Medications Acetaminophen (Tylenol 650 Mg Supp) 650 mg SD Q6 PRN PRN Reason: Fever >100.4 F Last Admin: 06/03/18 00:22 Dose: 650 mg Acetylcysteine (Acetylcysteine 20%) 4 ml INH RQ4 [facility] Last Admin: 06/04/18 03:57 Dose: 4 ml Albuterol/Ipratropium (Duoneb 3 Mg/0.5 Mg (3 Ml) Ud) 3 ml INH RQ4 [facility] Last Admin: 06/04/18 03:57 Dose: 3 ml Amlodipine Besylate (Norvasc) 10 mg PO DAILY [facility] Last Admin: 06/03/18 11:24 Dose: Not Given Aspirin (Aspirin Chewable) 81 mg PO DAILY [facility] Last Admin: 06/03/18 11:27 Dose: 81 mg Bisacodyl (Dulcolax) 10 mg SD TID PRN PRN Reason: Constipation Last Admin: 05/10/18 09:45 Dose: 10 mg Clopidogrel Bisulfate (Plavix) 75 mg PO DAILY [facility] Last Admin: 05/22/18 10:07 Dose: 75 mg Dextrose (Dextrose 50% Inj) 0 ml IV STAT PRN; Protocol PRN Reason: Hypoglycemia Protocol Dextrose (Glutose 15) 15 gm PO ONCE PRN; Protocol PRN Reason: Hypoglycemia Protocol Famotidine (Pepcid) 20 mg IVP Q12 [facility] Last Admin: 06/03/18 22:15 Dose: 20 mg Fluconazole (Diflucan) 100 mg GT DAILY [facility]; Protocol Stop: 06/05/18 10:01 Last Admin: 06/03/18 11:23 Dose: 100 mg Glucagon (Glucagen Diagnostic Kit) 1 mg IM STAT PRN; Protocol PRN Reason: Hypoglycemia Protocol Heparin Sodium (Porcine) (Heparin) 5,000 units SC Q8 [facility] Last Admin: 06/04/18 06:21 Dose: 5,000 units Dextrose (Dextrose 5% In Water 1000 Ml) 1,000 mls @ 150 mls/hr IV .Q6H40M [facility] Last Admin: 06/04/18 03:56 Dose: Not Given Azithromycin 500 mg/ Sodium (Chloride) 250 mls @ 250 mls/hr IVPB DAILY [facility]; Protocol Last Admin: 06/03/18 19:10 Dose: 250 mls/hr Ceftriaxone Sodium 1 gm/ (Sodium Chloride) 100 mls @ 100 mls/hr IVPB Q12H [facility]; Protocol Last Admin: 06/04/18 03:52 Dose: 100 mls/hr Ibuprofen (Motrin Oral Susp) 200 mg PO Q6H PRN PRN Reason: Fever >100.4 F Last Admin: 06/04/18 06:22 Dose: 200 mg Insulin Aspart (Novolog) 0 unit SC ACHS [facility]; Protocol Last Admin: 06/03/18 21:26 Dose: Not Given Insulin Glargine (Lantus) 40 unit SC HS [facility] Last Admin: 06/03/18 22:11 Dose: 40 units Insulin Human Isoph/Insulin Regular (Novolin 70/30 (70/30 Units/Ml) 10 Ml) 15 units SC BID [facility] Last Admin: 06/03/18 18:50 Dose: 15 units Labetalol HCl (Trandate) 10 mg IVP Q4H PRN PRN Reason: Systolic Blood Pressure Last Admin: 05/16/18 11:45 Dose: 10 mg Lactulose (Enulose) 20 gm PO DAILY PRN PRN Reason: Constipation Last Admin: 05/25/18 16:55 Dose: 20 gm Lorazepam (Ativan) 2 mg IVP Q3 PRN PRN Reason: Agitation Last Admin: 06/03/18 01:45 Dose: 2 mg Metoprolol Tartrate (Lopressor) 75 mg PO BID [facility] Last Admin: 06/03/18 18:08 Dose: Not Given Morphine Sulfate (Morphine) 2 mg IVP Q4 PRN PRN Reason: Pain, moderate (4-7) Last Admin: 06/01/18 21:10 Dose: 2 mg Rosuvastatin Calcium (Crestor) 5 mg PO HS [facility] Last Admin: 06/03/18 22:11 Dose: 5 mg Senna/Docusate Sodium (Senokot S 50 Mg-8.6 Mg) 1 tab PO BID [facility] Last Admin: 06/03/18 19:10 Dose: 1 tab Vitamin A (Vitamin A & D Oint Ud Foilpak) 1 ea TOP BID PRN PRN Reason: Dry skin Last Admin: 05/30/18 10:24 Dose: 1 ea - Labs Labs: 06/03/18 07:58 06/03/18 07:58 PT 16.8 SECONDS (9.7-12.2) H 05/28/18 07:15 INR 1.5 05/28/18 07:15 APTT 34 SECONDS (21-34) 05/28/18 07:15 - Constitutional Appears: Non-toxic, No Acute Distress - Head Exam Head Exam: NORMAL INSPECTION - Eye Exam Additional comments: sluggish pupils; unable to follow commands/ eye contact - Neck Exam Additional comments: (+) tracheostomy tube; (-) signs of bleeding or infection - Respiratory Exam Respiratory Exam: NORMAL BREATHING PATTERN Additional comments: On tracheostomy, on ventilator 50%/5 peep/18 RR/500 Vt - Cardiovascular Exam Cardiovascular Exam: +S1, +S2. absent: Murmur - GI/Abdominal Exam GI & Abdominal Exam: Soft, Normal Bowel Sounds - Extremities Exam Extremities Exam: absent: Pedal Edema Additional comments: LE & UE in chronic contracture state - Neurological Exam Additional comments: GCS=6 Eyes open spontanously but not purposefully; unresponsive to verbal or painful stimuli Nonverbal Cannot follow commands, but moves all extremities spontaneously - Skin Additional comments: (+) 3cm x 3cm circular ulcer to the distal radius, with eschar Assessment and Plan - Assessment and Plan (Free Text) Assessment: 57 yr F w/ no known medical history presented TO ED unresponsive; had extensive ICU stay now currently has anoxic brain injury: Fever spikes Leukocytosis - 24H fever 101.8F, elevated WBC 11.4 (06/03) now to 10.9 (06/04) - Ice packs, cooling blanket - Motrin 200 mg Q6H PRN, Tylenol 650 mg Q6H PRN - Started Rocephin 1g Q12 & Azithromycin 500 mg Q24H (started 06/03) - F/u blood cultures from 06/04 - sputum cultures from 05/25 - yeast - Per Dr. Mcgill - diflucan 100 mg GT X7 days - D/c meropenum 1g Q8H & flaggyl 500mg Q8H (total 13 days of treatment) - likely neurological - will continue to monitor Hypernatremia - Resolving - Na+ 154 06/03 -> 146 06/04 - D5W @150ml/hr - increased insulin- see below plan Acute Renal Injury - BUN/ Cr improving (76/4.5 -> 92/3.9) - likely due to dehydration - Start D5W @150 ml/hr - increase insulin - see below Anoxic Brain Injury - rpt EEG: severe non specific diffuse disturbances in cortical activity, brown matter dysfunction - EEG 05/04: diffuse encephalopathy with burst suppression. - Repeat CT head: no bleeding - MRI Brain: subacute favored over acute cerebral hypoxic insult with minimal involvement of the lower haris and the cerebellar hemispheres - keppra 1,000 mg IV Q12H - D/C'ed as EEG was normal - Ativan 1mg q4h PRN - Neurology consulted, Dr. Duff/Guilherme - GCS is 6; unresponsive to painful stimuli, nonverbal, eyes open spontaneously - continue to monitor Respiratory Failure - Due to Asphyxiation/Possible Suicide Attempt - tracheostomy on vent @FiO2 50 - s/p tracheotomy - s/p G tube repositioning 05/16 - Mucomyst Q4 - Duonebs Q4 - 05/26: Breathing fine, current settings FiO2 50, PEEP 5, TV 500, Resp 18 Transaminitis - Likely shock liver - Follow LFTs DM -Blood sugars remain elevated in high 200s to 300s - insulin increased 2/2 to D5W @75ml/hr started on 06/02 - Lantus increased to 40 Units SC - Novolin 70/30 15 units BID - Accuchecks ACHS - ISS high dose HTN - Metoprolol Tartrate 75 mg PO BID - Norvasc 5 mg PO 1x/day - Labetalol 10 mg IV Q4H PRN SBP > 140 Hyperkalemia Resolved - K+ 5.4; however sample was hemolyzed - will monitor NSTEMI Resolved - Elevated troponin - has normalized - ASA 81 mg PO daily (restarted 05/25) - Plavix 75mg PO daily (held - given drop in Hb) - hold Crestor 5 mg PO daily - Cardiology consulted, Dr Gay ARF Resolved - Likely Secondary to ATN with Hypernatremia - BUN/Cr have improved - Nephrology consulted, Dr. Samuels Leukocytosis Resolved - resolved, pt is afebrile, not tachycardic - rpt CXR 05/21: slightly low lung volumes with mild crowded bronchovascular markings and minor bibasilar atelectases - 05/17 rpt BCx: neg - 05/13/ rpt UCx: yeast - Blood cx 05/21 negative - UA: leuk est 3+, +WBC, +RBC, nitrate - - BCx 05/02/18: negative - UCx 05/06/18: negative - Tracheal Aspirate Cx 05/08/18: yeast - colindres changed 05/17 - cooling blanket - ice packs PRN fever - Doppler b/l UE and LE: negative for DVTs PPx Heparin 5,000 Units SC Q8H (restarted 05/25) Pepcid 20mg Q12 05/25 GT Feeding reduced to 30cc/hr Aspiration precautions Seizure precautions suction PRN D5W @ 50cc/hr IV D/C'ed as patient has tube feedings Turn and reposition q2h PT/OT Dispo: SW reports that pt may have insurance from who is [place] citizen, will look for placement. Michael Diaz, PGY1 <Yann Sheikh H - Last Filed: 06/04/18 19:04> Objective - Vital Signs/Intake and Output Vital Signs (last 24 hours): Temp Pulse Resp BP Pulse Ox 99.2 F 92 H 20 97/63 L 100 06/04/18 15:00 06/04/18 15:00 06/04/18 15:00 06/04/18 15:00 06/04/18 15:00 Intake and Output: 06/04/18 06/05/18 18:59 06:59 Intake Total 1890 Output Total 1200 Balance 690 - Medications Medications: Current Medications Acetaminophen (Tylenol 650 Mg Supp) 650 mg SD Q6 PRN PRN Reason: Fever >100.4 F Last Admin: 06/03/18 00:22 Dose: 650 mg Acetylcysteine (Acetylcysteine 20%) 4 ml INH RQ4 [facility] Last Admin: 06/04/18 16:25 Dose: 4 ml Albuterol/Ipratropium (Duoneb 3 Mg/0.5 Mg (3 Ml) Ud) 3 ml INH RQ4 [facility] Last Admin: 06/04/18 16:25 Dose: 3 ml Amlodipine Besylate (Norvasc) 10 mg PO DAILY [facility] Last Admin: 06/04/18 09:10 Dose: Not Given Aspirin (Aspirin Chewable) 81 mg PO DAILY [facility] Last Admin: 06/04/18 09:18 Dose: 81 mg Bisacodyl (Dulcolax) 10 mg SD TID PRN PRN Reason: Constipation Last Admin: 05/10/18 09:45 Dose: 10 mg Clopidogrel Bisulfate (Plavix) 75 mg PO DAILY [facility] Last Admin: 05/22/18 10:07 Dose: 75 mg Dextrose (Dextrose 50% Inj) 0 ml IV STAT PRN; Protocol PRN Reason: Hypoglycemia Protocol Dextrose (Glutose 15) 15 gm PO ONCE PRN; Protocol PRN Reason: Hypoglycemia Protocol Famotidine (Pepcid) 20 mg IVP DAILY [facility] Fluconazole (Diflucan) 100 mg GT DAILY [facility]; Protocol Stop: 06/05/18 10:01 Last Admin: 06/04/18 09:19 Dose: 100 mg Glucagon (Glucagen Diagnostic Kit) 1 mg IM STAT PRN; Protocol PRN Reason: Hypoglycemia Protocol Heparin Sodium (Porcine) (Heparin) 5,000 units SC Q8 [facility] Last Admin: 06/04/18 14:35 Dose: 5,000 units Dextrose (Dextrose 5% In Water 1000 Ml) 1,000 mls @ 150 mls/hr IV .Q6H40M [facility] Last Admin: 06/04/18 14:32 Dose: 150 mls/hr Azithromycin 500 mg/ Sodium (Chloride) 250 mls @ 250 mls/hr IVPB DAILY [facility]; Protocol Last Admin: 06/04/18 09:42 Dose: 250 mls/hr Ceftriaxone Sodium 1 gm/ (Sodium Chloride) 100 mls @ 100 mls/hr IVPB Q12H [facility]; Protocol Last Admin: 06/04/18 03:52 Dose: 100 mls/hr Ibuprofen (Motrin Oral Susp) 200 mg PO Q6H PRN PRN Reason: Fever >100.4 F Last Admin: 06/04/18 16:14 Dose: 200 mg Insulin Aspart (Novolog) 0 unit SC ACHS [facility]; Protocol Last Admin: 06/04/18 12:00 Dose: 4 units Insulin Glargine (Lantus) 40 unit SC [facility] Last Admin: 06/03/18 22:11 Dose: 40 units Insulin Human Isoph/Insulin Regular (Novolin 70/30 (70/30 Units/Ml) 10 Ml) 15 units SC BID [facility] Last Admin: 06/04/18 12:00 Dose: 15 units Labetalol HCl (Trandate) 10 mg IVP Q4H PRN PRN Reason: Systolic Blood Pressure Last Admin: 05/16/18 11:45 Dose: 10 mg Lactulose (Enulose) 20 gm PO DAILY PRN PRN Reason: Constipation Last Admin: 05/25/18 16:55 Dose: 20 gm Lorazepam (Ativan) 2 mg IVP Q3 PRN PRN Reason: Agitation Last Admin: 06/04/18 11:37 Dose: 2 mg Metoprolol Tartrate (Lopressor) 75 mg PO BID [facility] Last Admin: 06/04/18 09:10 Dose: Not Given Morphine Sulfate (Morphine) 2 mg IVP Q4 PRN PRN Reason: Pain, moderate (4-7) Last Admin: 06/01/18 21:10 Dose: 2 mg Rosuvastatin Calcium (Crestor) 5 mg PO HS [facility] Last Admin: 06/03/18 22:11 Dose: 5 mg Senna/Docusate Sodium (Senokot S 50 Mg-8.6 Mg) 1 tab PO BID [facility] Last Admin: 06/04/18 09:19 Dose: 1 tab Vitamin A (Vitamin A & D Oint Ud Foilpak) 1 ea TOP BID PRN PRN Reason: Dry skin Last Admin: 05/30/18 10:24 Dose: 1 ea - Labs Labs: 06/04/18 07:27 06/04/18 07:27 PT 16.8 SECONDS (9.7-12.2) H 05/28/18 07:15 INR 1.5 05/28/18 07:15 APTT 34 SECONDS (21-34) 05/28/18 07:15
[2018-06-04 08:01] LABS: BASO # 0.1 K/uL (0.0-0.2); BASO % 0.8 % (0.0-2.0); EOS # 0.2 K/uL (0.0-0.7); EOS % 2.2 % (0.0-4.0); HEMOGLOBIN 9.1 g/dL (11.0-16.0); LYMPH # 1.4 K/uL (1.0-4.3); LYMPH % 12.8 % (20.0-40.0); MEAN CELL VOLUME 83.8 fL (81.0-99.0); MEAN CORPUSCULAR HEMOGLOBIN 27.1 pg (27.0-31.0); MEAN CORPUSCULAR HGB CONC 32.4 g/dL (33.0-37.0); MEAN PLATELET VOLUME 12.9 fL (7.2-11.7); MONO # 0.6 K/uL (0.0-0.8); MONO % 5.5 % (0.0-10.0); NEUT # 8.5 K/uL (1.8-7.0); NEUT % 78.7 % (50.0-75.0); RBC 3.35 Mil/uL (3.80-5.20); RED CELL DISTRIBUTION WIDTH 17.1 % (11.5-14.5); WHITE BLOOD COUNT 10.9 K/uL (4.8-10.8)
[2018-06-04] MEDS: (Novolog) Insulin Aspart, Recombinant 100 u/ml 10 ml vial SC SCH ×4 (08:35→22:30)
[2018-06-04 09:13] LABS: ALB/GLOB RATIO 0.8 (1.0-2.1); ALBUMIN 2.9 g/dL (3.5-5.0); CALCIUM 7.7 mg/dl (8.6-10.4)
[2018-06-04] MEDS: Docusate-Senna 50 mg-8.6 mg Tab PO SCH ×2 (09:19→18:50)
[2018-06-04] MEDS: Azithromycin 500 MG in Sodium Chloride 0.9% 250 ML IVPB SCH (09:42)
[2018-06-04] MEDS: (Novolin 70/30) NPH/Regular 70/30 Units/ml 10 ml vial SC SCH ×2 (12:00→18:50)
[2018-06-04] MEDS: (Lantus) Insulin Glargine, Recombinant SC SCH (22:23)
--- NOTE | 2018-06-05 00:08 | CP.PCM.PN ---
<Ciaran Tate - Last Filed: 06/05/18 00:08> Subjective - Date & Time of Evaluation Date of Evaluation: 06/05/18 Time of Evaluation: 00:06 - Subjective Subjective: Hosptialist Service Pt seen and examined at bedside, pt trach'd, unable to provide ROS, as per nursing no acute events overnight Objective - Vital Signs/Intake and Output Vital Signs (last 24 hours): Temp Pulse Resp BP Pulse Ox 99.2 F 92 H 20 99/62 L 100 06/04/18 15:00 06/04/18 15:00 06/04/18 15:00 06/04/18 18:50 06/04/18 15:00 Intake and Output: 06/04/18 06/05/18 18:59 06:59 Intake Total 1890 1890 Output Total 1200 650 Balance 690 1240 - Medications Medications: Current Medications Acetaminophen (Tylenol 650 Mg Supp) 650 mg HI Q6 PRN PRN Reason: Fever >100.4 F Last Admin: 06/03/18 00:22 Dose: 650 mg Acetylcysteine (Acetylcysteine 20%) 4 ml INH RQ4 [facility] Last Admin: 06/04/18 20:19 Dose: 4 ml Albuterol/Ipratropium (Duoneb 3 Mg/0.5 Mg (3 Ml) Ud) 3 ml INH RQ4 [facility] Last Admin: 06/04/18 20:19 Dose: 3 ml Amlodipine Besylate (Norvasc) 10 mg PO DAILY [facility] Last Admin: 06/04/18 09:10 Dose: Not Given Aspirin (Aspirin Chewable) 81 mg PO DAILY [facility] Last Admin: 06/04/18 09:18 Dose: 81 mg Bisacodyl (Dulcolax) 10 mg HI TID PRN PRN Reason: Constipation Last Admin: 05/10/18 09:45 Dose: 10 mg Clopidogrel Bisulfate (Plavix) 75 mg PO DAILY [facility] Last Admin: 05/22/18 10:07 Dose: 75 mg Dextrose (Dextrose 50% Inj) 0 ml IV STAT PRN; Protocol PRN Reason: Hypoglycemia Protocol Dextrose (Glutose 15) 15 gm PO ONCE PRN; Protocol PRN Reason: Hypoglycemia Protocol Famotidine (Pepcid) 20 mg IVP DAILY [facility] Fluconazole (Diflucan) 100 mg GT DAILY [facility]; Protocol Stop: 06/05/18 10:01 Last Admin: 06/04/18 09:19 Dose: 100 mg Glucagon (Glucagen Diagnostic Kit) 1 mg IM STAT PRN; Protocol PRN Reason: Hypoglycemia Protocol Heparin Sodium (Porcine) (Heparin) 5,000 units SC Q8 [facility] Last Admin: 06/04/18 22:26 Dose: 5,000 units Dextrose (Dextrose 5% In Water 1000 Ml) 1,000 mls @ 150 mls/hr IV .Q6H40M [facility] Last Admin: 06/04/18 19:12 Dose: 150 mls/hr Azithromycin 500 mg/ Sodium (Chloride) 250 mls @ 250 mls/hr IVPB DAILY [facility]; Protocol Last Admin: 06/04/18 09:42 Dose: 250 mls/hr Ceftriaxone Sodium 1 gm/ (Sodium Chloride) 100 mls @ 100 mls/hr IVPB Q12H [facility]; Protocol Last Admin: 06/04/18 17:20 Dose: 100 mls/hr Ibuprofen (Motrin Oral Susp) 200 mg PO Q6H PRN PRN Reason: Fever >100.4 F Last Admin: 06/04/18 16:14 Dose: 200 mg Insulin Aspart (Novolog) 0 unit SC ACHS [facility]; Protocol Last Admin: 06/04/18 22:30 Dose: Not Given Insulin Glargine (Lantus) 40 unit SC [facility] Last Admin: 06/04/18 22:23 Dose: 40 units Insulin Human Isoph/Insulin Regular (Novolin 70/30 (70/30 Units/Ml) 10 Ml) 15 units SC BID [facility] Last Admin: 06/04/18 18:50 Dose: 15 units Labetalol HCl (Trandate) 10 mg IVP Q4H PRN PRN Reason: Systolic Blood Pressure Last Admin: 05/16/18 11:45 Dose: 10 mg Lactulose (Enulose) 20 gm PO DAILY PRN PRN Reason: Constipation Last Admin: 05/25/18 16:55 Dose: 20 gm Lorazepam (Ativan) 2 mg IVP Q3 PRN PRN Reason: Agitation Last Admin: 06/04/18 11:37 Dose: 2 mg Metoprolol Tartrate (Lopressor) 75 mg PO BID [facility] Last Admin: 06/04/18 18:50 Dose: Not Given Morphine Sulfate (Morphine) 2 mg IVP Q4 PRN PRN Reason: Pain, moderate (4-7) Last Admin: 06/01/18 21:10 Dose: 2 mg Rosuvastatin Calcium (Crestor) 5 mg PO HS [facility] Last Admin: 06/04/18 22:23 Dose: 5 mg Senna/Docusate Sodium (Senokot S 50 Mg-8.6 Mg) 1 tab PO BID [facility] Last Admin: 06/04/18 18:50 Dose: 1 tab Vitamin A (Vitamin A & D Oint Ud Foilpak) 1 ea TOP BID PRN PRN Reason: Dry skin Last Admin: 05/30/18 10:24 Dose: 1 ea - Labs Labs: 06/04/18 07:27 06/04/18 07:27 PT 16.8 SECONDS (9.7-12.2) H 05/28/18 07:15 INR 1.5 05/28/18 07:15 APTT 34 SECONDS (21-34) 05/28/18 07:15 Assessment and Plan - Assessment and Plan (Free Text) Assessment: - Constitutional Appears: Non-toxic, No Acute Distress - Head Exam Head Exam: NORMAL INSPECTION - Eye Exam Additional comments: sluggish pupils; unable to follow commands/ eye contact - Neck Exam Additional comments: (+) tracheostomy tube; (-) signs of bleeding or infection - Respiratory Exam Respiratory Exam: NORMAL BREATHING PATTERN Additional comments: On tracheostomy, on ventilator 50%/5 peep/18 RR/500 Vt - Cardiovascular Exam Cardiovascular Exam: +S1, +S2. absent: Murmur - GI/Abdominal Exam GI & Abdominal Exam: Soft, Normal Bowel Sounds - Extremities Exam Extremities Exam: absent: Pedal Edema Additional comments: LE & UE in chronic contracture state - Neurological Exam Additional comments: GCS=6 Eyes open spontanously but not purposefully; unresponsive to verbal or painful stimuli Nonverbal Cannot follow commands, but moves all extremities spontaneously - Skin Additional comments: (+) 3cm x 3cm circular ulcer to the distal radius, with eschar Assessment and Plan - Assessment and Plan (Free Text) Assessment: 57 yr F w/ no known medical history presented TO ED unresponsive; had extensive ICU stay now currently has anoxic brain injury: Fever spikes Leukocytosis - 24H fever 101.8F, elevated WBC 11.4 (06/03) now to 10.9 (06/04) - Ice packs, cooling blanket - Motrin 200 mg Q6H PRN, Tylenol 650 mg Q6H PRN - Started Rocephin 1g Q12 & Azithromycin 500 mg Q24H (started 06/03) - F/u blood cultures from 06/04 - sputum cultures from 05/25 - yeast - Per Dr. Mcgill - diflucan 100 mg GT X7 days - D/c meropenum 1g Q8H & flaggyl 500mg Q8H (total 13 days of treatment) - likely neurological - will continue to monitor Hypernatremia - Resolving - Na+ 154 06/03 -> 146 06/04 - D5W @150ml/hr - increased insulin- see below plan Acute Renal Injury - BUN/ Cr improving (76/4.5 -> 92/3.9) - likely due to dehydration - Start D5W @150 ml/hr - increase insulin - see below Anoxic Brain Injury - rpt EEG: severe non specific diffuse disturbances in cortical activity, brown matter dysfunction - EEG 05/04: diffuse encephalopathy with burst suppression. - Repeat CT head: no bleeding - MRI Brain: subacute favored over acute cerebral hypoxic insult with minimal involvement of the lower haris and the cerebellar hemispheres - keppra 1,000 mg IV Q12H - D/C'ed as EEG was normal - Ativan 1mg q4h PRN - Neurology consulted, Dr. Duff/Guilherme - GCS is 6; unresponsive to painful stimuli, nonverbal, eyes open spontaneously - continue to monitor Respiratory Failure - Due to Asphyxiation/Possible Suicide Attempt - tracheostomy on vent @FiO2 50 - s/p tracheotomy - s/p G tube repositioning 05/16 - Mucomyst Q4 - Duonebs Q4 - 05/26: Breathing fine, current settings FiO2 50, PEEP 5, TV 500, Resp 18 Transaminitis - Likely shock liver - Follow LFTs DM -Blood sugars remain elevated in high 200s to 300s - insulin increased 2/2 to D5W @75ml/hr started on 06/02 - Lantus increased to 40 Units SC - Novolin /30 15 units BID - Accuchecks ACHS - ISS high dose HTN - Metoprolol Tartrate 75 mg PO BID - Norvasc 5 mg PO 1x/day - Labetalol 10 mg IV Q4H PRN SBP > 140 Hyperkalemia Resolved - K+ 5.4; however sample was hemolyzed - will monitor NSTEMI Resolved - Elevated troponin - has normalized - ASA 81 mg PO daily (restarted 05/25) - Plavix 75mg PO daily (held - given drop in Hb) - hold Crestor 5 mg PO daily - Cardiology consulted, Dr Gay ARF Resolved - Likely Secondary to ATN with Hypernatremia - BUN/Cr have improved - Nephrology consulted, Dr. Samuels Leukocytosis Resolved - resolved, pt is afebrile, not tachycardic - rpt CXR 05/21: slightly low lung volumes with mild crowded bronchovascular m arkings and minor bibasilar atelectases - 05/17 rpt BCx: neg - 05/13/ rpt UCx: yeast - Blood cx 05/21 negative - UA: leuk est 3+, +WBC, +RBC, nitrate - - BCx 05/02/18: negative - UCx 05/06/18: negative - Tracheal Aspirate Cx 05/08/18: yeast - colindres changed 05/17 - cooling blanket - ice packs PRN fever - Doppler b/l UE and LE: negative for DVTs PPx Heparin 5,000 Units SC Q8H (restarted 05/25) Pepcid 20mg Q12 05/25 GT Feeding reduced to 30cc/hr Aspiration precautions Seizure precautions suction PRN D5W @ 50cc/hr IV D/C'ed as patient has tube feedings Turn and reposition q2h PT/OT Dispo: AJAY reports that pt may have insurance from who is [place] citizen, will look for placement. <Yann Sheikh H - Last Filed: 06/05/18 12:51> Objective - Vital Signs/Intake and Output Vital Signs (last 24 hours): Temp Pulse Resp BP Pulse Ox 99.3 F 101 H 22 106/62 100 06/05/18 08:00 06/05/18 08:00 06/05/18 08:00 06/05/18 09:59 06/05/18 08:00 Intake and Output: 06/05/18 06/05/18 06:59 18:59 Intake Total 3310 Output Total 1550 Balance 1760 - Medications Medications: Current Medications Acetaminophen (Tylenol 650 Mg Supp) 650 mg HI Q6 PRN PRN Reason: Fever >100.4 F Last Admin: 06/03/18 00:22 Dose: 650 mg Acetylcysteine (Acetylcysteine 20%) 4 ml INH RQ4 [facility] Last Admin: 06/05/18 12:01 Dose: 4 ml Albuterol/Ipratropium (Duoneb 3 Mg/0.5 Mg (3 Ml) Ud) 3 ml INH RQ4 [facility] Last Admin: 06/05/18 12:01 Dose: 3 ml Amlodipine Besylate (Norvasc) 10 mg PO DAILY [facility] Last Admin: 06/05/18 09:58 Dose: 10 mg Aspirin (Aspirin Chewable) 81 mg PO DAILY [facility] Last Admin: 06/05/18 09:58 Dose: 81 mg Bisacodyl (Dulcolax) 10 mg HI TID PRN PRN Reason: Constipation Last Admin: 05/10/18 09:45 Dose: 10 mg Clopidogrel Bisulfate (Plavix) 75 mg PO DAILY [facility] Last Admin: 05/22/18 10:07 Dose: 75 mg Dextrose (Dextrose 50% Inj) 0 ml IV STAT PRN; Protocol PRN Reason: Hypoglycemia Protocol Dextrose (Glutose 15) 15 gm PO ONCE PRN; Protocol PRN Reason: Hypoglycemia Protocol Famotidine (Pepcid) 20 mg IVP DAILY [facility] Last Admin: 06/05/18 10:00 Dose: 20 mg Glucagon (Glucagen Diagnostic Kit) 1 mg IM STAT PRN; Protocol PRN Reason: Hypoglycemia Protocol Heparin Sodium (Porcine) (Heparin) 5,000 units SC Q8 [facility] Last Admin: 06/05/18 06:09 Dose: 5,000 units Dextrose (Dextrose 5% In Water 1000 Ml) 1,000 mls @ 150 mls/hr IV .Q6H40M [facility] Last Admin: 06/05/18 11:35 Dose: Not Given Azithromycin 500 mg/ Sodium (Chloride) 250 mls @ 250 mls/hr IVPB DAILY [facility]; Protocol Last Admin: 06/05/18 09:59 Dose: 250 mls/hr Ceftriaxone Sodium 1 gm/ (Sodium Chloride) 100 mls @ 100 mls/hr IVPB Q12H [facility]; Protocol Last Admin: 06/05/18 03:46 Dose: 100 mls/hr Ibuprofen (Motrin Oral Susp) 200 mg PO Q6H PRN PRN Reason: Fever >100.4 F Last Admin: 06/04/18 16:14 Dose: 200 mg Insulin Aspart (Novolog) 0 unit SC ACHS [facility]; Protocol Last Admin: 06/05/18 11:39 Dose: 2 units Insulin Glargine (Lantus) 40 unit SC [facility] Last Admin: 06/04/18 22:23 Dose: 40 units Insulin Human Isoph/Insulin Regular (Novolin 70/30 (70/30 Units/Ml) 10 Ml) 15 units SC BID [facility] Last Admin: 06/05/18 10:00 Dose: 15 units Labetalol HCl (Trandate) 10 mg IVP Q4H PRN PRN Reason: Systolic Blood Pressure Last Admin: 05/16/18 11:45 Dose: 10 mg Lactulose (Enulose) 20 gm PO DAILY PRN PRN Reason: Constipation Last Admin: 05/25/18 16:55 Dose: 20 gm Lorazepam (Ativan) 2 mg IVP Q3 PRN PRN Reason: Agitation Last Admin: 06/04/18 11:37 Dose: 2 mg Metoprolol Tartrate (Lopressor) 75 mg PO BID [facility] Last Admin: 06/05/18 09:58 Dose: 75 mg Morphine Sulfate (Morphine) 2 mg IVP Q4 PRN PRN Reason: Pain, moderate (4-7) Last Admin: 06/01/18 21:10 Dose: 2 mg Rosuvastatin Calcium (Crestor) 5 mg PO [facility] Last Admin: 06/04/18 22:23 Dose: 5 mg Senna/Docusate Sodium (Senokot S 50 Mg-8.6 Mg) 1 tab PO BID [facility] Last Admin: 06/05/18 09:58 Dose: 1 tab Vitamin A (Vitamin A & D Oint Ud Foilpak) 1 ea TOP BID PRN PRN Reason: Dry skin Last Admin: 05/30/18 10:24 Dose: 1 ea - Labs Labs: 06/05/18 06:30 06/05/18 06:30 PT 16.8 SECONDS (9.7-12.2) H 05/28/18 07:15 INR 1.5 05/28/18 07:15 APTT 34 SECONDS (21-34) 05/28/18 07:15 Attending/Attestation - Attestation I have personally seen and examined this patient.: Yes I have fully participated in the care of the patient.: Yes I have reviewed all pertinent clinical information, including history, physical exam and plan: Yes Notes (Text): 06/05/18 12:47 Medical attending: Patient was seen and examined by me. Agree with the above note by the resident Patient's sister and at bedside The patient's creatine decreased and also the Na decreased as well Last night they held tube feedings due to vommitting. Will restart at 20 cc / hr and monitor - family was concerned Explained to family that due to the extensive brain damage she may have GI motility/issues and Continue to monitor urine out put - it is better today Yann Sheikh
[2018-06-05] MEDS: Acetylcysteine 20% Inhal Soln (4ml) INH SCH ×7 (00:30→23:56)
[2018-06-05] MEDS: Albuterol-Ipratrop 3 mg / 0.5 (3 ml) UD INH SCH ×7 (03:13→23:56)
[2018-06-05 06:45] LABS: BASO % 0.3 % (0.0-2.0); EOS # 0.3 K/uL (0.0-0.7); EOS % 3.2 % (0.0-4.0); HEMOGLOBIN 8.1 g/dL (11.0-16.0); LYMPH # 1.2 K/uL (1.0-4.3); LYMPH % 13.4 % (20.0-40.0); MEAN CELL VOLUME 83.8 fL (81.0-99.0); MEAN CORPUSCULAR HEMOGLOBIN 26.7 pg (27.0-31.0); MEAN CORPUSCULAR HGB CONC 31.9 g/dL (33.0-37.0); MEAN PLATELET VOLUME 14.3 fL (7.2-11.7); MONO # 0.7 K/uL (0.0-0.8); MONO % 7.7 % (0.0-10.0); NEUT # 6.5 K/uL (1.8-7.0); NEUT % 75.4 % (50.0-75.0); RBC 3.03 Mil/uL (3.80-5.20); RED CELL DISTRIBUTION WIDTH 16.8 % (11.5-14.5); WHITE BLOOD COUNT 8.6 K/uL (4.8-10.8)
[2018-06-05 07:33] LABS: ALB/GLOB RATIO 0.7 (1.0-2.1); ALBUMIN 2.7 g/dL (3.5-5.0); CALCIUM 7.8 mg/dl (8.6-10.4)
[2018-06-05] MEDS: (Novolog) Insulin Aspart, Recombinant 100 u/ml 10 ml vial SC SCH ×3 (08:16→16:08)
[2018-06-05] MEDS: Docusate-Senna 50 mg-8.6 mg Tab PO SCH ×2 (09:58→17:34)
[2018-06-05] MEDS: Azithromycin 500 MG in Sodium Chloride 0.9% 250 ML IVPB SCH (09:59)
[2018-06-05] MEDS: (Novolin 70/30) NPH/Regular 70/30 Units/ml 10 ml vial SC SCH ×2 (10:00→17:31)
[2018-06-05] MEDS: (Lantus) Insulin Glargine, Recombinant SC SCH (22:22)
--- NOTE | 2018-06-06 00:38 | CP.PCM.PN ---
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 Pt seen adn examined at bedside, vomiting stopped as per nursing, no acute events overnight, d/w family options Objective - Vital Signs/Intake and Output Vital Signs (last 24 hours): Temp Pulse Resp BP Pulse Ox 99.3 F 78 20 116/65 100 06/05/18 15:00 06/05/18 15:00 06/05/18 15:00 06/05/18 17:34 06/05/18 15:00 Intake and Output: 06/05/18 06/06/18 18:59 06:59 Intake Total 1200 Output Total 700 Balance 500 - Medications Medications: Current Medications Acetaminophen (Tylenol 650 Mg Supp) 650 mg AL Q6 PRN PRN Reason: Fever >100.4 F Last Admin: 06/03/18 00:22 Dose: 650 mg Acetylcysteine (Acetylcysteine 20%) 4 ml INH RQ4 [facility] Last Admin: 06/05/18 23:56 Dose: 4 ml Albuterol/Ipratropium (Duoneb 3 Mg/0.5 Mg (3 Ml) Ud) 3 ml INH RQ4 [facility] Last Admin: 06/05/18 23:56 Dose: 3 ml Amlodipine Besylate (Norvasc) 10 mg PO DAILY [facility] Last Admin: 06/05/18 09:58 Dose: 10 mg Aspirin (Aspirin Chewable) 81 mg PO DAILY [facility] Last Admin: 06/05/18 09:58 Dose: 81 mg Bisacodyl (Dulcolax) 10 mg AL TID PRN PRN Reason: Constipation Last Admin: 05/10/18 09:45 Dose: 10 mg Clopidogrel Bisulfate (Plavix) 75 mg PO DAILY [facility] Last Admin: 05/22/18 10:07 Dose: 75 mg Dextrose (Dextrose 50% Inj) 0 ml IV STAT PRN; Protocol PRN Reason: Hypoglycemia Protocol Dextrose (Glutose 15) 15 gm PO ONCE PRN; Protocol PRN Reason: Hypoglycemia Protocol Famotidine (Pepcid) 20 mg IVP DAILY [facility] Last Admin: 06/05/18 10:00 Dose: 20 mg Glucagon (Glucagen Diagnostic Kit) 1 mg IM STAT PRN; Protocol PRN Reason: Hypoglycemia Protocol Heparin Sodium (Porcine) (Heparin) 5,000 units SC Q8 [facility] Last Admin: 06/05/18 22:22 Dose: 5,000 units Dextrose (Dextrose 5% In Water 1000 Ml) 1,000 mls @ 150 mls/hr IV .Q6H40M [facility] Last Admin: 06/05/18 23:21 Dose: 150 mls/hr Azithromycin 500 mg/ Sodium (Chloride) 250 mls @ 250 mls/hr IVPB DAILY [facility]; Protocol Last Admin: 06/05/18 09:59 Dose: 250 mls/hr Ceftriaxone Sodium 1 gm/ (Sodium Chloride) 100 mls @ 100 mls/hr IVPB Q12H [facility]; Protocol Last Admin: 06/05/18 16:26 Dose: 100 mls/hr Ibuprofen (Motrin Oral Susp) 200 mg PO Q6H PRN PRN Reason: Fever >100.4 F Last Admin: 06/04/18 16:14 Dose: 200 mg Insulin Aspart (Novolog) 0 unit SC ACHS [facility]; Protocol Last Admin: 06/05/18 16:08 Dose: Not Given Insulin Glargine (Lantus) 40 unit SC [facility] Last Admin: 06/05/18 22:22 Dose: 40 units Insulin Human Isoph/Insulin Regular (Novolin 70/30 (70/30 Units/Ml) 10 Ml) 15 units SC BID [facility] Last Admin: 06/05/18 17:31 Dose: 15 units Labetalol HCl (Trandate) 10 mg IVP Q4H PRN PRN Reason: Systolic Blood Pressure Last Admin: 05/16/18 11:45 Dose: 10 mg Lactulose (Enulose) 20 gm PO DAILY PRN PRN Reason: Constipation Last Admin: 05/25/18 16:55 Dose: 20 gm Lorazepam (Ativan) 2 mg IVP Q3 PRN PRN Reason: Agitation Last Admin: 06/04/18 11:37 Dose: 2 mg Metoprolol Tartrate (Lopressor) 75 mg PO BID [facility] Last Admin: 06/05/18 17:34 Dose: 75 mg Morphine Sulfate (Morphine) 2 mg IVP Q4 PRN PRN Reason: Pain, moderate (4-7) Last Admin: 06/01/18 21:10 Dose: 2 mg Rosuvastatin Calcium (Crestor) 5 mg PO [facility] Last Admin: 06/05/18 22:22 Dose: 5 mg Senna/Docusate Sodium (Senokot S 50 Mg-8.6 Mg) 1 tab PO BID [facility] Last Admin: 06/05/18 17:34 Dose: 1 tab Vitamin A (Vitamin A & D Oint Ud Foilpak) 1 ea TOP BID PRN PRN Reason: Dry skin Last Admin: 05/30/18 10:24 Dose: 1 ea - Labs Labs: 06/05/18 06:30 06/05/18 06:30 PT 16.8 SECONDS (9.7-12.2) H 05/28/18 07:15 INR 1.5 05/28/18 07:15 APTT 34 SECONDS (21-34) 05/28/18 07:15 - Additional Findings Additional findings: - Assessment and Plan (Free Text) Assessment: - Constitutional Appears: Non-toxic, No Acute Distress - Head Exam Head Exam: NORMAL INSPECTION - Eye Exam Additional comments: sluggish pupils; unable to follow commands/ eye contact - Neck Exam Additional comments: (+) tracheostomy tube; (-) signs of bleeding or infection - Respiratory Exam Respiratory Exam: NORMAL BREATHING PATTERN Additional comments: On tracheostomy, on ventilator 50%/5 peep/18 RR/500 Vt - Cardiovascular Exam Cardiovascular Exam: +S1, +S2. absent: Murmur - GI/Abdominal Exam GI & Abdominal Exam: Soft, Normal Bowel Sounds - Extremities Exam Extremities Exam: absent: Pedal Edema Additional comments: LE & UE in chronic contracture state - Neurological Exam Additional comments: GCS=6 Eyes open spontanously but not purposefully; unresponsive to verbal or painful stimuli Nonverbal Cannot follow commands, but moves all extremities spontaneously - Skin Additional comments: (+) 3cm x 3cm circular ulcer to the distal radius, with eschar Assessment and Plan - Assessment and Plan (Free Text) Assessment: Assessment and Plan - Assessment and Plan (Free Text) Assessment: 57 yr F w/ no known medical history presented TO ED unresponsive; had extensive ICU stay now currently has anoxic brain injury: Fever spikes Leukocytosis - 24H fever 101.8F, elevated WBC 11.4 (06/03) now to 10.9 (06/04) - Ice packs, cooling blanket - Motrin 200 mg Q6H PRN, Tylenol 650 mg Q6H PRN - Started Rocephin 1g Q12 & Azithromycin 500 mg Q24H (started 06/03) - F/u blood cultures from 06/04 - sputum cultures from 05/25 - yeast - Per Dr. Mcgill - diflucan 100 mg GT X7 days - D/c meropenum 1g Q8H & flaggyl 500mg Q8H (total 13 days of treatment) - likely neurological - will continue to monitor Hypernatremia - Resolving - Na+ 154 06/03 -> 146 06/04 - D5W @150ml/hr - increased insulin- see below plan Acute Renal Injury - BUN/ Cr improving (76/4.5 -> 92/3.9) - likely due to dehydration - Start D5W @150 ml/hr - increase insulin - see below Anoxic Brain Injury - rpt EEG: severe non specific diffuse disturbances in cortical activity, brown matter dysfunction - EEG 05/04: diffuse encephalopathy with burst suppression. - Repeat CT head: no bleeding - MRI Brain: subacute favored over acute cerebral hypoxic insult with minimal involvement of the lower haris and the cerebellar hemispheres - keppra 1,000 mg IV Q12H - D/C'ed as EEG was normal - Ativan 1mg q4h PRN - Neurology consulted, Dr. Duff/Guilherme - GCS is 6; unresponsive to painful stimuli, nonverbal, eyes open spontaneously - continue to monitor Respiratory Failure - Due to Asphyxiation/Possible Suicide Attempt - tracheostomy on vent @FiO2 50 - s/p tracheotomy - s/p G tube repositioning 05/16 - Mucomyst Q4 - Duonebs Q4 - 05/26: Breathing fine, current settings FiO2 50, PEEP 5, TV 500, Resp 18 Transaminitis - Likely shock liver - Follow LFTs DM -Blood sugars remain elevated in high 200s to 300s - insulin increased 2/2 to D5W @75ml/hr started on 06/02 - Lantus increased to 40 Units SC - Novolin /30 15 units BID - Accuchecks ACHS - ISS high dose HTN - Metoprolol Tartrate 75 mg PO BID - Norvasc 5 mg PO 1x/day - Labetalol 10 mg IV Q4H PRN SBP > 140 Hyperkalemia Resolved - K+ 5.4; however sample was hemolyzed - will monitor NSTEMI Resolved - Elevated troponin - has normalized - ASA 81 mg PO daily (restarted 05/25) - Plavix 75mg PO daily (held - given drop in Hb) - hold Crestor 5 mg PO daily - Cardiology consulted, Dr Gay ARF Resolved - Likely Secondary to ATN with Hypernatremia - BUN/Cr have improved - Nephrology consulted, Dr. Samuels Leukocytosis Resolved - resolved, pt is afebrile, not tachycardic - rpt CXR 05/21: slightly low lung volumes with mild crowded bronchovascular markings and minor bibasilar atelectases - 05/17 rpt BCx: neg - 05/13/ rpt UCx: yeast - Blood cx 05/21 negative - UA: leuk est 3+, +WBC, +RBC, nitrate - - BCx 05/02/18: negative - UCx 05/06/18: negative - Tracheal Aspirate Cx 05/08/18: yeast - colindres changed 05/17 - cooling blanket - ice packs PRN fever - Doppler b/l UE and LE: negative for DVTs PPx Heparin 5,000 Units SC Q8H (restarted 05/25) Pepcid 20mg Q12 05/25 GT Feeding reduced to 30cc/hr Aspiration precautions Seizure precautions suction PRN D5W @ 50cc/hr IV D/C'ed as patient has tube feedings Turn and reposition q2h PT/OT Dispo: AJAY reports that pt may have insurance from who is [place] citizen, will look for placement. <Yann Sheikh H - Last Filed: 06/06/18 09:50> Objective - Vital Signs/Intake and Output Vital Signs (last 24 hours): Temp Pulse Resp BP Pulse Ox 98.5 F 71 20 144/81 99 06/06/18 08:35 06/06/18 08:35 06/06/18 08:35 06/06/18 08:35 06/06/18 08:35 Intake and Output: 06/06/18 06/06/18 06:59 18:59 Intake Total 1540 1560 Output Total 300 600 Balance 1240 960 - Medications Medications: Current Medications Acetaminophen (Tylenol 650 Mg Supp) 650 mg AL Q6 PRN PRN Reason: Fever >100.4 F Last Admin: 06/03/18 00:22 Dose: 650 mg Acetylcysteine (Acetylcysteine 20%) 4 ml INH RQ4 [facility] Last Admin: 06/06/18 07:20 Dose: 4 ml Albuterol/Ipratropium (Duoneb 3 Mg/0.5 Mg (3 Ml) Ud) 3 ml INH RQ4 [facility] Last Admin: 06/06/18 07:20 Dose: 3 ml Amlodipine Besylate (Norvasc) 10 mg PO DAILY [facility] Last Admin: 06/05/18 09:58 Dose: 10 mg Aspirin (Aspirin Chewable) 81 mg PO DAILY [facility] Last Admin: 06/05/18 09:58 Dose: 81 mg Bisacodyl (Dulcolax) 10 mg AL TID PRN PRN Reason: Constipation Last Admin: 05/10/18 09:45 Dose: 10 mg Clopidogrel Bisulfate (Plavix) 75 mg PO DAILY [facility] Last Admin: 05/22/18 10:07 Dose: 75 mg Dextrose (Dextrose 50% Inj) 0 ml IV STAT PRN; Protocol PRN Reason: Hypoglycemia Protocol Dextrose (Glutose 15) 15 gm PO ONCE PRN; Protocol PRN Reason: Hypoglycemia Protocol Famotidine (Pepcid) 20 mg IVP DAILY [facility] Last Admin: 06/05/18 10:00 Dose: 20 mg Glucagon (Glucagen Diagnostic Kit) 1 mg IM STAT PRN; Protocol PRN Reason: Hypoglycemia Protocol Heparin Sodium (Porcine) (Heparin) 5,000 units SC Q8 [facility] Last Admin: 06/06/18 05:32 Dose: 5,000 units Dextrose (Dextrose 5% In Water 1000 Ml) 1,000 mls @ 150 mls/hr IV .Q6H40M [facility] Last Admin: 06/06/18 07:40 Dose: 150 mls/hr Azithromycin 500 mg/ Sodium (Chloride) 250 mls @ 250 mls/hr IVPB DAILY [facility]; Protocol Last Admin: 06/05/18 09:59 Dose: 250 mls/hr Ceftriaxone Sodium 1 gm/ (Sodium Chloride) 100 mls @ 100 mls/hr IVPB Q12H [facility]; Protocol Last Admin: 06/06/18 03:31 Dose: 100 mls/hr Potassium Chloride (Potassium Chloride 20 Meq/100 Ml) 20 meq in 100 mls @ 50 mls/hr IVPB ONCE ONE Stop: 06/06/18 10:09 Last Admin: 06/06/18 08:33 Dose: 50 mls/hr Ibuprofen (Motrin Oral Susp) 200 mg PO Q6H PRN PRN Reason: Fever >100.4 F Last Admin: 06/04/18 16:14 Dose: 200 mg Insulin Aspart (Novolog) 0 unit SC [facility]; Protocol Last Admin: 06/06/18 08:33 Dose: 2 units Insulin Glargine (Lantus) 40 unit SC [facility] Last Admin: 06/05/18 22:22 Dose: 40 units Insulin Human Isoph/Insulin Regular (Novolin 70/30 (70/30 Units/Ml) 10 Ml) 15 units SC BID [facility] Last Admin: 06/05/18 17:31 Dose: 15 units Labetalol HCl (Trandate) 10 mg IVP Q4H PRN PRN Reason: Systolic Blood Pressure Last Admin: 05/16/18 11:45 Dose: 10 mg Lactulose (Enulose) 20 gm PO DAILY PRN PRN Reason: Constipation Last Admin: 05/25/18 16:55 Dose: 20 gm Lorazepam (Ativan) 2 mg IVP Q3 PRN PRN Reason: Agitation Last Admin: 06/04/18 11:37 Dose: 2 mg Metoprolol Tartrate (Lopressor) 75 mg PO BID [facility] Last Admin: 06/05/18 17:34 Dose: 75 mg Morphine Sulfate (Morphine) 2 mg IVP Q4 PRN PRN Reason: Pain, moderate (4-7) Last Admin: 06/01/18 21:10 Dose: 2 mg Rosuvastatin Calcium (Crestor) 5 mg PO [facility] Last Admin: 06/05/18 22:22 Dose: 5 mg Senna/Docusate Sodium (Senokot S 50 Mg-8.6 Mg) 1 tab PO BID [facility] Last Admin: 06/05/18 17:34 Dose: 1 tab Vitamin A (Vitamin A & D Oint Ud Foilpak) 1 ea TOP BID PRN PRN Reason: Dry skin Last Admin: 05/30/18 10:24 Dose: 1 ea - Labs Labs: 06/06/18 07:06 06/06/18 07:06 PT 16.8 SECONDS (9.7-12.2) H 05/28/18 07:15 INR 1.5 05/28/18 07:15 APTT 34 SECONDS (21-34) 05/28/18 07:15 Attending/Attestation - Attestation I have personally seen and examined this patient.: Yes I have fully participated in the care of the patient.: Yes I have reviewed all pertinent clinical information, including history, physical exam and plan: Yes Notes (Text): 06/06/18 09:47 Medical attending: Patient was seen and examined by me. Agree with the above note by the resident The patient's family at bedside faithfully. Overnight reportedly had some coughing and spitting up excessively Abdomen is not distended like before - however will hold the tube feeds for 48 hrs and see if this helps As explained to the family that because of the extensive brain damage it is very possible that she has GI motility issues causing the PEG feeding to build up and cause her to cough or spit up Yann Sheikh
[2018-06-06] MEDS: Albuterol-Ipratrop 3 mg / 0.5 (3 ml) UD INH SCH ×5 (03:17→21:11)
[2018-06-06] MEDS: Acetylcysteine 20% Inhal Soln (4ml) INH SCH ×5 (03:17→21:11)
[2018-06-06 07:20] LABS: BASO % 0.3 % (0.0-2.0); EOS # 0.2 K/uL (0.0-0.7); EOS % 2.8 % (0.0-4.0); HEMOGLOBIN 8.1 g/dL (11.0-16.0); LYMPH # 1.2 K/uL (1.0-4.3); LYMPH % 16.6 % (20.0-40.0); MEAN CELL VOLUME 83.2 fL (81.0-99.0); MEAN CORPUSCULAR HEMOGLOBIN 27.1 pg (27.0-31.0); MEAN CORPUSCULAR HGB CONC 32.6 g/dL (33.0-37.0); MEAN PLATELET VOLUME 14.5 fL (7.2-11.7); MONO # 0.4 K/uL (0.0-0.8); NEUT # 5.4 K/uL (1.8-7.0); NEUT % 74.3 % (50.0-75.0); RBC 2.98 Mil/uL (3.80-5.20); RED CELL DISTRIBUTION WIDTH 16.5 % (11.5-14.5); WHITE BLOOD COUNT 7.2 K/uL (4.8-10.8)
[2018-06-06 07:51] LABS: ALB/GLOB RATIO 0.7 (1.0-2.1); ALBUMIN 2.7 g/dL (3.5-5.0); CALCIUM 8.2 mg/dl (8.6-10.4)
[2018-06-06] MEDS: (Novolog) Insulin Aspart, Recombinant 100 u/ml 10 ml vial SC SCH ×3 (08:33→16:00)
[2018-06-06] MEDS: Azithromycin 500 MG in Sodium Chloride 0.9% 250 ML IVPB SCH (10:00)
[2018-06-06] MEDS: (Novolin 70/30) NPH/Regular 70/30 Units/ml 10 ml vial SC SCH ×2 (10:00→17:55)
[2018-06-06] MEDS: Docusate-Senna 50 mg-8.6 mg Tab PO SCH ×2 (10:01→18:59)
[2018-06-07] MEDS: Acetylcysteine 20% Inhal Soln (4ml) INH SCH ×6 (00:14→19:18)
[2018-06-07] MEDS: Albuterol-Ipratrop 3 mg / 0.5 (3 ml) UD INH SCH ×6 (00:14→19:18)
--- NOTE | 2018-06-07 07:15 | CP.PCM.PN ---
<Michael Diaz M - Last Filed: 06/07/18 14:24> Subjective - Date & Time of Evaluation Date of Evaluation: 06/07/18 Time of Evaluation: 07:30 - Subjective Subjective: PGY 1 Medicine Progress Note for Dr. Negrete. Patient seen and examined at bedside. Over the weekend, tube feedings were held due to concern for abdominal distention & vomiting. No fevers reported > 48 hrs. Patient additionally making eye contact with sister, who is at bedside. However, on examination and re-examination, patient unable to make eye contact with m edical team. Patient remains to be clinically same as previous days. ROS is unobtainable due to AMS. She remains nonverbal, unable to respond to commands. Objective - Vital Signs/Intake and Output Vital Signs (last 24 hours): Temp Pulse Resp BP Pulse Ox 98.1 F 68 20 123/70 100 06/07/18 04:33 06/07/18 04:33 06/07/18 04:33 06/07/18 04:33 06/07/18 04:33 Intake and Output: 06/07/18 06/07/18 06:59 18:59 Intake Total 2400 Output Total 1250 Balance 1150 - Medications Medications: Current Medications Acetaminophen (Tylenol 650 Mg Supp) 650 mg ME Q6 PRN PRN Reason: Fever >100.4 F Last Admin: 06/03/18 00:22 Dose: 650 mg Acetylcysteine (Acetylcysteine 20%) 4 ml INH RQ4 BETH Last Admin: 06/07/18 03:19 Dose: 4 ml Albuterol/Ipratropium (Duoneb 3 Mg/0.5 Mg (3 Ml) Ud) 3 ml INH RQ4 BETH Last Admin: 06/07/18 03:19 Dose: 3 ml Amlodipine Besylate (Norvasc) 10 mg PO DAILY [facility] Last Admin: 06/06/18 10:23 Dose: 10 mg Aspirin (Aspirin Chewable) 81 mg PO DAILY [facility] Last Admin: 06/06/18 10:01 Dose: 81 mg Bisacodyl (Dulcolax) 10 mg ME TID PRN PRN Reason: Constipation Last Admin: 05/10/18 09:45 Dose: 10 mg Clopidogrel Bisulfate (Plavix) 75 mg PO DAILY [facility] Last Admin: 05/22/18 10:07 Dose: 75 mg Dextrose (Dextrose 50% Inj) 0 ml IV STAT PRN; Protocol PRN Reason: Hypoglycemia Protocol Dextrose (Glutose 15) 15 gm PO ONCE PRN; Protocol PRN Reason: Hypoglycemia Protocol Famotidine (Pepcid) 20 mg IVP DAILY [facility] Last Admin: 06/06/18 10:01 Dose: 20 mg Glucagon (Glucagen Diagnostic Kit) 1 mg IM STAT PRN; Protocol PRN Reason: Hypoglycemia Protocol Heparin Sodium (Porcine) (Heparin) 5,000 units SC Q8 [facility] Last Admin: 06/07/18 06:01 Dose: 5,000 units Dextrose (Dextrose 5% In Water 1000 Ml) 1,000 mls @ 150 mls/hr IV .Q6H40M [facility] Last Admin: 06/07/18 00:54 Dose: Not Given Azithromycin 500 mg/ Sodium (Chloride) 250 mls @ 250 mls/hr IVPB DAILY [facility]; Protocol Last Admin: 06/06/18 10:00 Dose: 250 mls/hr Ceftriaxone Sodium 1 gm/ (Sodium Chloride) 100 mls @ 100 mls/hr IVPB Q12H [facility]; Protocol Last Admin: 06/07/18 04:09 Dose: 100 mls/hr Ibuprofen (Motrin Oral Susp) 200 mg PO Q6H PRN PRN Reason: Fever >100.4 F Last Admin: 06/04/18 16:14 Dose: 200 mg Insulin Aspart (Novolog) 0 unit SC ACHS [facility]; Protocol Last Admin: 06/06/18 16:00 Dose: Not Given Insulin Glargine (Lantus) 40 unit SC HS [facility] Last Admin: 06/05/18 22:22 Dose: 40 units Insulin Human Isoph/Insulin Regular (Novolin 70/30 (70/30 Units/Ml) 10 Ml) 15 units SC BID [facility] Last Admin: 06/06/18 17:55 Dose: Not Given Labetalol HCl (Trandate) 10 mg IVP Q4H PRN PRN Reason: Systolic Blood Pressure Last Admin: 05/16/18 11:45 Dose: 10 mg Lactulose (Enulose) 20 gm PO DAILY PRN PRN Reason: Constipation Last Admin: 05/25/18 16:55 Dose: 20 gm Lorazepam (Ativan) 2 mg IVP Q3 PRN PRN Reason: Agitation Last Admin: 06/06/18 15:48 Dose: 2 mg Metoprolol Tartrate (Lopressor) 75 mg PO BID [facility] Last Admin: 06/06/18 18:58 Dose: 75 mg Morphine Sulfate (Morphine) 2 mg IVP Q4 PRN PRN Reason: Pain, moderate (4-7) Last Admin: 06/01/18 21:10 Dose: 2 mg Rosuvastatin Calcium (Crestor) 5 mg PO HS [facility] Last Admin: 06/06/18 22:06 Dose: 5 mg Senna/Docusate Sodium (Senokot S 50 Mg-8.6 Mg) 1 tab PO BID [facility] Last Admin: 06/06/18 18:59 Dose: 1 tab Vitamin A (Vitamin A & D Oint Ud Foilpak) 1 ea TOP BID PRN PRN Reason: Dry skin Last Admin: 05/30/18 10:24 Dose: 1 ea - Labs Labs: 06/06/18 07:06 06/06/18 07:06 PT 16.8 SECONDS (9.7-12.2) H 05/28/18 07:15 INR 1.5 05/28/18 07:15 APTT 34 SECONDS (21-34) 05/28/18 07:15 - Constitutional Appears: Non-toxic, No Acute Distress - Head Exam Head Exam: NORMAL INSPECTION - Eye Exam Additional comments: sluggish pupils; unable to follow commands/ eye contact - ENT Exam ENT Exam: Mucous Membranes Moist - Neck Exam Additional comments: (+) tracheostomy tube; (-) signs of bleeding or infection - GI/Abdominal Exam GI & Abdominal Exam: Soft, Normal Bowel Sounds Additional comments: PEG tube in place, no erythema present, no discharge - Extremities Exam Additional comments: LE & UE in chronic contracture state - Neurological Exam Neurological Exam: absent: Alert, Awake, Oriented x3 Additional comments: GCS=6 Eyes open spontanously but not purposefully; unresponsive to verbal or painful stimuli Nonverbal Cannot follow commands, but moves all extremities spontaneously - Skin Skin Exam: Normal Color, Warm Additional comments: (+) 3cm x 3cm circular ulcer to the distal radius, with eschar Assessment and Plan - Assessment and Plan (Free Text) Assessment: 57 yr F w/ no known medical history presented TO ED unresponsive; had extensive ICU stay now currently has anoxic brain injury: Anoxic Brain Injury - rpt EEG: severe non specific diffuse disturbances in cortical activity, brown matter dysfunction - EEG 05/04: diffuse encephalopathy with burst suppression. - Repeat CT head: no bleeding - MRI Brain: subacute favored over acute cerebral hypoxic insult with minimal involvement of the lower haris and the cerebellar hemispheres - keppra 1,000 mg IV Q12H - D/C'ed as EEG was normal - Ativan 1mg q4h PRN - Neurology consulted, Dr. Duff/Guilherme - GCS is 6; unresponsive to painful stimuli, nonverbal, eyes open spontaneously - continue to monitor - resume tube feedings glycerna 30 ml/hr w/ goal to increase to 40 ml/hr Thrombocytopenia - platelet drop from 192s to 102s - HIT vs drug induced thrombocytopenia vs ? - Azithromycin & Ceftriaxone started on 06/03, following day drop in platelets - 4T's score for possible HIT: score of 3 -> < 1% probability of HIT - HIT unlikely - Will monitor and D/C Abx Fever spikes Leukocytosis Resolving - WBCs resolved, afebrile > 48 hrs - Ice packs, cooling blanket PRN - Motrin 200 mg Q6H PRN, Tylenol 650 mg Q6H PRN - Started Rocephin 1g Q12 & Azithromycin 500 mg Q24H (started 06/03) - D'C'ed due to possible drug induced thrombocytopenia - sputum cultures from 05/25 - yeast - Per Dr. Mcgill - diflucan 100 mg GT X7 days - D/c meropenum 1g Q8H & flaggyl 500mg Q8H (total 13 days of treatment) - likely neurological - will continue to monitor Respiratory Failure - Due to Asphyxiation/Possible Suicide Attempt - tracheostomy on vent @FiO2 50 PEEP 5, TV 500, Resp 18 - s/p tracheotomy - s/p G tube repositioning 05/16 - Mucomyst Q4 - Duonebs Q4 Transaminitis - Likely shock liver - Follow LFTs DM -Blood sugars remain elevated in high 200s to 300s - insulin increased 2/2 to D5W @75ml/hr started on 06/02 - Lantus increased to 40 Units SC - Novolin 70/30 15 units BID - Accuchecks ACHS - ISS high dose HTN - Metoprolol Tartrate 75 mg PO BID - Norvasc 5 mg PO 1x/day - Labetalol 10 mg IV Q4H PRN SBP > 140 Acute Renal Injury Resolved - BUN/ Cr improving (76/4.5 -> 19/1.0) - likely due to dehydration - Start D5W @150 ml/hr - D/C'ed - increase insulin - see below Hypernatremia Resolved - Na+ 154 06/03 -> 146 06/04 - D5W @150ml/hr - d/fanta - increased insulin- see below plan Hyperkalemia Resolved - K+ 5.4; however sample was hemolyzed - will monitor NSTEMI Resolved - Elevated troponin - has normalized - ASA 81 mg PO daily (restarted 05/25) - Plavix 75mg PO daily (held - given drop in Hb) - hold Crestor 5 mg PO daily - Cardiology consulted, Dr Gay ARF Resolved - Likely Secondary to ATN with Hypernatremia - BUN/Cr have improved - Nephrology consulted, Dr. Samuels PPx Heparin 5,000 Units SC Q8H (restarted 05/25) Pepcid 20mg Q12 05/25 GT Feeding goal to 40 ml/hr Aspiration precautions Seizure precautions suction PRN Turn and reposition q2h PT/OT Dispo: SW reports that pt may have insurance from who is [place] citizen, will look for placement. <Emmett Negrete - Last Filed: 06/09/18 17:27> Objective - Vital Signs/Intake and Output Vital Signs (last 24 hours): Temp Pulse Resp BP Pulse Ox 98.5 F 89 20 135/86 97 06/09/18 08:01 06/09/18 08:01 06/09/18 08:01 06/09/18 10:14 06/09/18 08:01 Intake and Output: 06/09/18 06/09/18 06:59 18:59 Intake Total 810 810 Output Total 500 600 Balance 310 210 - Medications Medications: Current Medications Acetaminophen (Tylenol 650 Mg Supp) 650 mg ME Q6 PRN PRN Reason: Fever >100.4 F Last Admin: 06/03/18 00:22 Dose: 650 mg Acetylcysteine (Acetylcysteine 20%) 4 ml INH RQ4 [facility] Last Admin: 06/09/18 16:27 Dose: 4 ml Albuterol/Ipratropium (Duoneb 3 Mg/0.5 Mg (3 Ml) Ud) 3 ml INH RQ4 [facility] Last Admin: 06/09/18 16:27 Dose: 3 ml Amlodipine Besylate (Norvasc) 10 mg PO DAILY [facility] Last Admin: 06/09/18 10:15 Dose: 10 mg Aspirin (Aspirin Chewable) 81 mg PO DAILY [facility] Last Admin: 06/09/18 10:15 Dose: 81 mg Bisacodyl (Dulcolax) 10 mg ME TID PRN PRN Reason: Constipation Last Admin: 05/10/18 09:45 Dose: 10 mg Clopidogrel Bisulfate (Plavix) 75 mg PO DAILY [facility] Last Admin: 05/22/18 10:07 Dose: 75 mg Dextrose (Dextrose 50% Inj) 0 ml IV STAT PRN; Protocol PRN Reason: Hypoglycemia Protocol Dextrose (Glutose 15) 15 gm PO ONCE PRN; Protocol PRN Reason: Hypoglycemia Protocol Famotidine (Pepcid) 20 mg GT DAILY [facility] Last Admin: 06/09/18 10:15 Dose: 20 mg Glucagon (Glucagen Diagnostic Kit) 1 mg IM STAT PRN; Protocol PRN Reason: Hypoglycemia Protocol Heparin Sodium (Porcine) (Heparin) 5,000 units SC Q8 [facility] Last Admin: 06/09/18 13:39 Dose: 5,000 units Ibuprofen (Motrin Oral Susp) 200 mg PO Q6H PRN PRN Reason: Fever >100.4 F Last Admin: 06/04/18 16:14 Dose: 200 mg Insulin Aspart (Novolog) 0 unit SC [facility]; Protocol Last Admin: 06/09/18 11:40 Dose: Not Given Insulin Glargine (Lantus) 40 unit SC [facility] Last Admin: 06/08/18 21:54 Dose: 40 units Insulin Human Isoph/Insulin Regular (Novolin 70/30 (70/30 Units/Ml) 10 Ml) 15 units SC BID [facility] Last Admin: 06/09/18 10:13 Dose: 15 units Labetalol HCl (Trandate) 10 mg IVP Q4H PRN PRN Reason: Systolic Blood Pressure Last Admin: 05/16/18 11:45 Dose: 10 mg Lactulose (Enulose) 20 gm PO DAILY PRN PRN Reason: Constipation Last Admin: 05/25/18 16:55 Dose: 20 gm Metoprolol Tartrate (Lopressor) 75 mg PO BID [facility] Last Admin: 06/09/18 10:14 Dose: 75 mg Rosuvastatin Calcium (Crestor) 5 mg PO HS [facility] Last Admin: 06/08/18 21:50 Dose: 5 mg Senna/Docusate Sodium (Senokot S 50 Mg-8.6 Mg) 1 tab PO BID [facility] Last Admin: 06/09/18 10:15 Dose: 1 tab Vitamin A (Vitamin A & D Oint Ud Foilpak) 1 ea TOP BID PRN PRN Reason: Dry skin Last Admin: 05/30/18 10:24 Dose: 1 ea - Labs Labs: 06/09/18 07:23 06/09/18 07:23 PT 16.8 SECONDS (9.7-12.2) H 05/28/18 07:15 INR 1.5 05/28/18 07:15 APTT 34 SECONDS (21-34) 05/28/18 07:15 Attending/Attestation - Attestation I have personally seen and examined this patient.: Yes I have fully participated in the care of the patient.: Yes I have reviewed all pertinent clinical information, including history, physical exam and plan: Yes Notes (Text): As per her sister she has eye contacts. Feeding hel due to vomting and abd distention on exam no abd distension,BS present May resume feeding if she has no vomiting
[2018-06-07 07:37] LABS: BASO % 0.3 % (0.0-2.0); EOS # 0.2 K/uL (0.0-0.7); HEMOGLOBIN 7.7 g/dL (11.0-16.0); LYMPH # 1.2 K/uL (1.0-4.3); LYMPH % 18.3 % (20.0-40.0); MEAN CELL VOLUME 83.2 fL (81.0-99.0); MEAN CORPUSCULAR HEMOGLOBIN 26.6 pg (27.0-31.0); MONO # 0.5 K/uL (0.0-0.8); MONO % 8.2 % (0.0-10.0); NEUT # 4.7 K/uL (1.8-7.0); NEUT % 70.2 % (50.0-75.0); RBC 2.9 Mil/uL (3.80-5.20); RED CELL DISTRIBUTION WIDTH 16.7 % (11.5-14.5); WHITE BLOOD COUNT 6.6 K/uL (4.8-10.8)
[2018-06-07] MEDS: (Novolog) Insulin Aspart, Recombinant 100 u/ml 10 ml vial SC SCH ×4 (07:45→22:33)
[2018-06-07 08:09] LABS: ALB/GLOB RATIO 0.7 (1.0-2.1); ALBUMIN 2.6 g/dL (3.5-5.0); ALT/SGPT 40 U/L (9-52); AST/SGOT 42 U/L (14-36); BLOOD UREA NITROGEN 19 mg/dL (7-17); CALCIUM 7.8 mg/dl (8.6-10.4); GFR NON-AFRICAN AMERICAN 58
[2018-06-07] MEDS: Docusate-Senna 50 mg-8.6 mg Tab PO SCH ×2 (09:43→18:38)
--- NOTE | 2018-06-07 09:46 | CARD ---
APPROVED REPORT Date of service: 06/06/2018 EKG Measurement Heart [id number] <Conclusion> Normal sinus rhythm Nonspecific T wave abnormality Abnormal ECG
[2018-06-07] MEDS: Azithromycin 500 MG in Sodium Chloride 0.9% 250 ML IVPB SCH (09:48)
[2018-06-07] MEDS: (Novolin 70/30) NPH/Regular 70/30 Units/ml 10 ml vial SC SCH ×2 (11:42→18:31)
--- NOTE | 2018-06-07 11:46 | CT ---
Date of service: 06/06/2018 PROCEDURE: CT Abdomen and Pelvis. HISTORY: Vomiting COMPARISON: The made with prior CT scan of the abdomen pelvis 05/02/2018. TECHNIQUE: Contiguous axial images of the abdomen and pelvis performed without oral or intravenous contrast material. Coronal and Sagittal reformats generated. Radiation dose: Total exam DLP = 857.63 mGy-cm. This CT exam was performed using one or more of the following dose reduction techniques: Automated exposure control, adjustment of the mA and/or kV according to patient size, and/or use of iterative reconstruction technique. FINDINGS: LOWER THORAX: Heart appears mildly enlarged although the chambers exhibit low attenuation suggesting anemia.. There appears to be a small hiatal hernia with fluid in the lumen of the distal esophagus likely due to reflux.. Intraluminal fluid precludes evaluation of wall for abnormal thickening. Clinic correlation recommended. Mild patchy atelectasis and/or small infiltrate changes both posterior lower lung zones. No effusion or basilar pneumothorax. LIVER: The liver exhibits normal size measuring nearly 16 cm in CC dimension. No obvious hepatic mass collection or calcification. GALLBLADDER AND BILE DUCTS: Unremarkable. PANCREAS: The pancreas appears slightly atrophic and fatty replaced. No obvious pancreatic masses collections or calcifications. SPLEEN: Unremarkable. No splenomegaly. ADRENALS: Mildly nodular left adrenal gland. Right adrenal gland unremarkable. Unremarkable. KIDNEYS AND URETERS: Kidneys demonstrate relatively symmetric size. No evidence of nephrolithiasis or hydronephrosis. BLADDER: There is an in situ unclamped Alvarado catheter around which the urinary bladder is collapsed. Bladder wall thickening due to collapse however correlation with urinalysis recommended to exclude the possibility of a cystitis as well. Tiny amount of air is present within the urinary bladder likely due to recent instrumentation.. REPRODUCTIVE: there is a slightly lobular contour of the uterine fundus. Possibility of a fibroid not excluded. Follow-up of nonemergent head with pelvic ultrasound could be performed for further evaluation. APPENDIX: The appendix which appeared unremarkable on the prior exam is not seen with certainty on this study however no obvious inflammatory changes right lower quadrant of the abdomen. BOWEL: Evaluation of the bowel is somewhat limited due to the lack of oral contrast material. There is an in situ peg tube present. Small amount of fluid and a moderate amount of air present within the stomach.. Visualized loops of small bowel exhibit relatively normal contour however there are a few minimally distended fluid-filled loops of small bowel in the left mid abdomen nonspecific... No evidence of acute mechanical bowel obstruction with oral contrast material seen in the colon extending to the level of the rectum.. The rectal wall is slightly thickened which may be due to incomplete distention however possibility of inflammatory process or intrinsic/invasive lesion should be excluded. Follow-up colonoscopy suggested further evaluation. Mild wall thickening of the rectum PERITONEUM: No fluid collection. No free air. LYMPH NODES: Unremarkable. No enlarged lymph nodes. VASCULATURE: Unremarkable. No aortic aneurysm. No aortic atherosclerotic calcification or mural plaque present. BONES: Minor multilevel degenerative spondylosis of the lower thoracic and lumbar spine. OTHER FINDINGS: None. IMPRESSION: There are patchy atelectatic and or small infiltrate changes both posterior sulci. Cardiomegaly with findings suggestive of anemia. In situ PEG tube. There are a few minimally distended fluid-filled loops of small bowel left mid abdomen nonspecific. No evidence of acute mechanical bowel obstruction. Mild rectal wall thickening could be due to some combination of incomplete distention peristalsis and under opacified bowel though intrinsic/invasive wall lesion should be excluded. Follow-up colonoscopy recommended. Slightly nodular appearing left adrenal gland. There is somewhat bulbous appearance of the uterine fundus likely representing a fundal fibroid however follow-up of pelvic ultrasound could be performed to confirm.
[2018-06-07] MEDS: (Lantus) Insulin Glargine, Recombinant SC SCH (22:36)
[2018-06-08] MEDS: Albuterol-Ipratrop 3 mg / 0.5 (3 ml) UD INH SCH ×6 (00:51→19:47)
[2018-06-08] MEDS: Acetylcysteine 20% Inhal Soln (4ml) INH SCH ×6 (00:51→19:47)
--- NOTE | 2018-06-08 06:57 | CP.PCM.PN ---
<Michael Diaz M - Last Filed: 06/08/18 13:17> Subjective - Date & Time of Evaluation Date of Evaluation: 06/08/18 Time of Evaluation: 07:15 - Subjective Subjective: PGY 1 Medicine Progress Note for Dr. Negrete. Patient seen and examined at bedside. No fevers reported > 72 hrs. Patient additionally making eye contact with sister, who is at bedside. Gtube feedings restarted yesterday 06/08/18. No complications reported. IV abx dc-ed yesterday 06/08/18. Per nursing staff, patient comprehended and followed action to close her eyes. ROS is unobtainable due to AMS. She remains nonverbal, unable to respond to commands. Objective - Vital Signs/Intake and Output Vital Signs (last 24 hours): Temp Pulse Resp BP Pulse Ox 98.8 F 60 20 126/67 100 06/08/18 05:30 06/08/18 05:30 06/08/18 05:30 06/08/18 05:30 06/08/18 05:30 Intake and Output: 06/07/18 06/08/18 18:59 06:59 Intake Total 1310 1615 Output Total 1250 1000 Balance 60 615 - Medications Medications: Current Medications Acetaminophen (Tylenol 650 Mg Supp) 650 mg [place] Q6 PRN PRN Reason: Fever >100.4 F Last Admin: 06/03/18 00:22 Dose: 650 mg Acetylcysteine (Acetylcysteine 20%) 4 ml INH RQ4 [facility] Last Admin: 06/08/18 03:45 Dose: Not Given Albuterol/Ipratropium (Duoneb 3 Mg/0.5 Mg (3 Ml) Ud) 3 ml INH RQ4 [facility] Last Admin: 06/08/18 03:45 Dose: 3 ml Amlodipine Besylate (Norvasc) 10 mg PO DAILY [facility] Last Admin: 06/07/18 09:58 Dose: 10 mg Aspirin (Aspirin Chewable) 81 mg PO DAILY [facility] Last Admin: 06/07/18 09:35 Dose: 81 mg Bisacodyl (Dulcolax) 10 mg ID TID PRN PRN Reason: Constipation Last Admin: 05/10/18 09:45 Dose: 10 mg Clopidogrel Bisulfate (Plavix) 75 mg PO DAILY [facility] Last Admin: 05/22/18 10:07 Dose: 75 mg Dextrose (Dextrose 50% Inj) 0 ml IV STAT PRN; Protocol PRN Reason: Hypoglycemia Protocol Dextrose (Glutose 15) 15 gm PO ONCE PRN; Protocol PRN Reason: Hypoglycemia Protocol Famotidine (Pepcid) 20 mg GT DAILY [facility] Glucagon (Glucagen Diagnostic Kit) 1 mg IM STAT PRN; Protocol PRN Reason: Hypoglycemia Protocol Heparin Sodium (Porcine) (Heparin) 5,000 units SC Q8 [facility] Last Admin: 06/07/18 22:33 Dose: 5,000 units Ibuprofen (Motrin Oral Susp) 200 mg PO Q6H PRN PRN Reason: Fever >100.4 F Last Admin: 06/04/18 16:14 Dose: 200 mg Insulin Aspart (Novolog) 0 unit SC [facility]; Protocol Last Admin: 06/07/18 22:33 Dose: Not Given Insulin Glargine (Lantus) 40 unit SC [facility] Last Admin: 06/07/18 22:36 Dose: 40 units Insulin Human Isoph/Insulin Regular (Novolin 70/30 (70/30 Units/Ml) 10 Ml) 15 units SC BID [facility] Last Admin: 06/07/18 18:31 Dose: 15 units Labetalol HCl (Trandate) 10 mg IVP Q4H PRN PRN Reason: Systolic Blood Pressure Last Admin: 05/16/18 11:45 Dose: 10 mg Lactulose (Enulose) 20 gm PO DAILY PRN PRN Reason: Constipation Last Admin: 05/25/18 16:55 Dose: 20 gm Lorazepam (Ativan) 2 mg IVP Q3 PRN PRN Reason: Agitation Last Admin: 06/07/18 08:18 Dose: 2 mg Metoprolol Tartrate (Lopressor) 75 mg PO BID [facility] Last Admin: 06/07/18 18:33 Dose: 75 mg Morphine Sulfate (Morphine) 2 mg IVP Q4 PRN PRN Reason: Pain, moderate (4-7) Last Admin: 06/01/18 21:10 Dose: 2 mg Rosuvastatin Calcium (Crestor) 5 mg PO HS [facility] Last Admin: 06/07/18 22:32 Dose: 5 mg Senna/Docusate Sodium (Senokot S 50 Mg-8.6 Mg) 1 tab PO BID [facility] Last Admin: 06/07/18 18:38 Dose: 1 tab Vitamin A (Vitamin A & D Oint Ud Foilpak) 1 ea TOP BID PRN PRN Reason: Dry skin Last Admin: 05/30/18 10:24 Dose: 1 ea - Labs Labs: 06/07/18 07:12 06/07/18 07:12 PT 16.8 SECONDS (9.7-12.2) H 05/28/18 07:15 INR 1.5 05/28/18 07:15 APTT 34 SECONDS (21-34) 05/28/18 07:15 - Constitutional Appears: Non-toxic, No Acute Distress - Head Exam Head Exam: NORMAL INSPECTION - Eye Exam Eye Exam: Normal appearance Additional comments: sluggish pupils; unable to follow commands/ eye contact - ENT Exam ENT Exam: Mucous Membranes Moist - Neck Exam Additional comments: (+) tracheostomy tube; (-) signs of bleeding or infection - GI/Abdominal Exam Additional comments: PEG tube in place, no erythema present, no discharge - Extremities Exam Extremities Exam: absent: Pedal Edema Additional comments: LE & UE in chronic contracture state - Neurological Exam Neurological Exam: Awake Additional comments: GCS=7 Eyes open spontanously ; moves extremities to pain Nonverbal - Skin Skin Exam: Dry, Normal Color, Warm Assessment and Plan - Assessment and Plan (Free Text) Assessment: 57 yr F w/ no known medical history presented TO ED unresponsive; had extensive ICU stay now currently has anoxic brain injury: Anoxic Brain Injury - rpt EEG: severe non specific diffuse disturbances in cortical activity, brown matter dysfunction - EEG 05/04: diffuse encephalopathy with burst suppression. - Repeat CT head: no bleeding - MRI Brain: subacute favored over acute cerebral hypoxic insult with minimal involvement of the lower haris and the cerebellar hemispheres - keppra 1,000 mg IV Q12H - D/C'ed as EEG was normal - Ativan 1mg q4h PRN - Neurology consulted, Dr. Duff/Guilherme - GCS is 7; unresponsive to painful stimuli, nonverbal, eyes open spontaneously - continue to monitor - resume tube feedings vital 1.2 20ml/hr w/ goal to increase to 50 ml/hr Left wrist Ulcer - ulcer on left wrist w/ eschar - F/u wound care recs - Consider surgery recs Thrombocytopenia Resolving - platelet drop from 192s to 102s, now to 133s - HIT vs drug induced thrombocytopenia vs ? - Azithromycin & Ceftriaxone started on 06/03, following day drop in platelets - 4T's score for possible HIT: score of 3 -> < 1% probability of HIT - HIT unlikely - Will monitor and D/C Abx Fever spikes Leukocytosis Resolved - WBCs resolved, afebrile > 72 hrs - Ice packs, cooling blanket PRN - Motrin 200 mg Q6H PRN, Tylenol 650 mg Q6H PRN - Started Rocephin 1g Q12 & Azithromycin 500 mg Q24H (started 06/03) - D'C'ed due to possible drug induced thrombocytopenia - sputum cultures from 05/25 - yeast - Per Dr. Mcgill - diflucan 100 mg GT X7 days - D/c meropenum 1g Q8H & flaggyl 500mg Q8H (total 13 days of treatment) - likely neurological - will continue to monitor Respiratory Failure - Due to Asphyxiation/Possible Suicide Attempt - tracheostomy on vent @FiO2 50 PEEP 5, TV 500, Resp 18 - s/p tracheotomy - s/p G tube repositioning 05/16 - Mucomyst Q4 - Duonebs Q4 - F/u w/ pulm for possible weaning Transaminitis - Likely shock liver - Follow LFTs DM -Blood sugars remain elevated in high 200s to 300s - insulin increased 2/2 to D5W @75ml/hr started on 06/02 - Lantus increased to 40 Units SC - Novolin 70/30 15 units BID - Accuchecks ACHS - ISS high dose HTN - Metoprolol Tartrate 75 mg PO BID - Norvasc 5 mg PO 1x/day - Labetalol 10 mg IV Q4H PRN SBP > 140 Acute Renal Injury Resolved - BUN/ Cr improving (76/4.5 -> 19/1.0) - likely due to dehydration - Start D5W @150 ml/hr - D/C'ed - increase insulin - see below Hypernatremia Resolved - Na+ 154 06/03 -> 146 06/04 - D5W @150ml/hr - d/fanta - increased insulin- see below plan Hyperkalemia Resolved - K+ 5.4; however sample was hemolyzed - will monitor NSTEMI Resolved - Elevated troponin - has normalized - ASA 81 mg PO daily (restarted 05/25) - Plavix 75mg PO daily (held - given drop in Hb) - hold Crestor 5 mg PO daily - Cardiology consulted, Dr Gay ARF Resolved - Likely Secondary to ATN with Hypernatremia - BUN/Cr have improved - Nephrology consulted, Dr. Samuels PPx Heparin 5,000 Units SC Q8H (restarted 05/25) Pepcid 20mg Q12 05/25 GT Feeding goal to 40 ml/hr Aspiration precautions Seizure precautions suction PRN Turn and reposition q2h PT/OT Dispo: reports that pt may have insurance from who is [place] citizen, will look for placement. <Emmett Negrete - Last Filed: 06/09/18 17:29> Objective - Vital Signs/Intake and Output Vital Signs (last 24 hours): Temp Pulse Resp BP Pulse Ox 98.5 F 89 20 135/86 97 06/09/18 08:01 06/09/18 08:01 06/09/18 08:01 06/09/18 10:14 06/09/18 08:01 Intake and Output: 06/09/18 06/09/18 06:59 18:59 Intake Total 810 810 Output Total 500 600 Balance 310 210 - Medications Medications: Current Medications Acetaminophen (Tylenol 650 Mg Supp) 650 mg ID Q6 PRN PRN Reason: Fever >100.4 F Last Admin: 06/03/18 00:22 Dose: 650 mg Acetylcysteine (Acetylcysteine 20%) 4 ml INH RQ4 [facility] Last Admin: 06/09/18 16:27 Dose: 4 ml Albuterol/Ipratropium (Duoneb 3 Mg/0.5 Mg (3 Ml) Ud) 3 ml INH RQ4 [facility] Last Admin: 06/09/18 16:27 Dose: 3 ml Amlodipine Besylate (Norvasc) 10 mg PO DAILY [facility] Last Admin: 06/09/18 10:15 Dose: 10 mg Aspirin (Aspirin Chewable) 81 mg PO DAILY [facility] Last Admin: 06/09/18 10:15 Dose: 81 mg Bisacodyl (Dulcolax) 10 mg ID TID PRN PRN Reason: Constipation Last Admin: 05/10/18 09:45 Dose: 10 mg Clopidogrel Bisulfate (Plavix) 75 mg PO DAILY [facility] Last Admin: 05/22/18 10:07 Dose: 75 mg Dextrose (Dextrose 50% Inj) 0 ml IV STAT PRN; Protocol PRN Reason: Hypoglycemia Protocol Dextrose (Glutose 15) 15 gm PO ONCE PRN; Protocol PRN Reason: Hypoglycemia Protocol Famotidine (Pepcid) 20 mg GT DAILY [facility] Last Admin: 06/09/18 10:15 Dose: 20 mg Glucagon (Glucagen Diagnostic Kit) 1 mg IM STAT PRN; Protocol PRN Reason: Hypoglycemia Protocol Heparin Sodium (Porcine) (Heparin) 5,000 units SC Q8 [facility] Last Admin: 06/09/18 13:39 Dose: 5,000 units Ibuprofen (Motrin Oral Susp) 200 mg PO Q6H PRN PRN Reason: Fever >100.4 F Last Admin: 06/04/18 16:14 Dose: 200 mg Insulin Aspart (Novolog) 0 unit SC [facility]; Protocol Last Admin: 06/09/18 11:40 Dose: Not Given Insulin Glargine (Lantus) 40 unit SC [facility] Last Admin: 06/08/18 21:54 Dose: 40 units Insulin Human Isoph/Insulin Regular (Novolin 70/30 (70/30 Units/Ml) 10 Ml) 15 units SC BID [facility] Last Admin: 06/09/18 10:13 Dose: 15 units Labetalol HCl (Trandate) 10 mg IVP Q4H PRN PRN Reason: Systolic Blood Pressure Last Admin: 05/16/18 11:45 Dose: 10 mg Lactulose (Enulose) 20 gm PO DAILY PRN PRN Reason: Constipation Last Admin: 05/25/18 16:55 Dose: 20 gm Metoprolol Tartrate (Lopressor) 75 mg PO BID [facility] Last Admin: 06/09/18 10:14 Dose: 75 mg Rosuvastatin Calcium (Crestor) 5 mg PO HS [facility] Last Admin: 06/08/18 21:50 Dose: 5 mg Senna/Docusate Sodium (Senokot S 50 Mg-8.6 Mg) 1 tab PO BID [facility] Last Admin: 06/09/18 10:15 Dose: 1 tab Vitamin A (Vitamin A & D Oint Ud Foilpak) 1 ea TOP BID PRN PRN Reason: Dry skin Last Admin: 05/30/18 10:24 Dose: 1 ea - Labs Labs: 06/09/18 07:23 06/09/18 07:23 PT 16.8 SECONDS (9.7-12.2) H 05/28/18 07:15 INR 1.5 05/28/18 07:15 APTT 34 SECONDS (21-34) 05/28/18 07:15 Attending/Attestation - Attestation I have personally seen and examined this patient.: Yes I have fully participated in the care of the patient.: Yes I have reviewed all pertinent clinical information, including history, physical exam and plan: Yes Notes (Text): Feeding resumed,patient noted with some improvements/Looking at her sister and smiling? d/w DR Brennan about possible weaning.Try CPAP monitor closely d/w resident and I agree with the documentation
[2018-06-08 07:51] LABS: BASO % 0.5 % (0.0-2.0); EOS # 0.2 K/uL (0.0-0.7); HEMOGLOBIN 7.9 g/dL (11.0-16.0); LYMPH # 1.5 K/uL (1.0-4.3); LYMPH % 20.1 % (20.0-40.0); MEAN CELL VOLUME 83.2 fL (81.0-99.0); MEAN CORPUSCULAR HEMOGLOBIN 27.1 pg (27.0-31.0); MEAN CORPUSCULAR HGB CONC 32.6 g/dL (33.0-37.0); MEAN PLATELET VOLUME 13.3 fL (7.2-11.7); MONO # 0.5 K/uL (0.0-0.8); MONO % 6.8 % (0.0-10.0); NEUT # 5.3 K/uL (1.8-7.0); NEUT % 69.6 % (50.0-75.0); RBC 2.92 Mil/uL (3.80-5.20); RED CELL DISTRIBUTION WIDTH 16.2 % (11.5-14.5); WHITE BLOOD COUNT 7.6 K/uL (4.8-10.8)
[2018-06-08 08:08] LABS: ALB/GLOB RATIO 0.8 (1.0-2.1); ALBUMIN 2.7 g/dL (3.5-5.0); ALT/SGPT 41 U/L (9-52); AST/SGOT 38 U/L (14-36); BLOOD UREA NITROGEN 17 mg/dL (7-17); CALCIUM 8.2 mg/dl (8.6-10.4); GFR NON-AFRICAN AMERICAN > 60
[2018-06-08] MEDS: (Novolog) Insulin Aspart, Recombinant 100 u/ml 10 ml vial SC SCH ×4 (08:36→21:48)
[2018-06-08] MEDS: (Novolin 70/30) NPH/Regular 70/30 Units/ml 10 ml vial SC SCH ×2 (10:06→18:25)
[2018-06-08] MEDS: Docusate-Senna 50 mg-8.6 mg Tab PO SCH ×2 (10:07→18:30)
[2018-06-08 14:54] LABS: IRON 23 ug/dL (37-170)
[2018-06-08 15:22] LABS: % IRON SATURATION 12 (20-55); TOTAL IRON BINDING CAPACITY 191 ug/dL (250-450)
[2018-06-08] MEDS: (Lantus) Insulin Glargine, Recombinant SC SCH (21:54)
[2018-06-09] MEDS: Acetylcysteine 20% Inhal Soln (4ml) INH SCH ×6 (00:30→19:55)
[2018-06-09] MEDS: Albuterol-Ipratrop 3 mg / 0.5 (3 ml) UD INH SCH ×6 (00:30→19:55)
--- NOTE | 2018-06-09 06:24 | CP.PCM.PN ---
<Michael Diaz M - Last Filed: 06/09/18 20:09> Subjective - Date & Time of Evaluation Date of Evaluation: 06/09/18 Time of Evaluation: 07:20 - Subjective Subjective: PGY 1 Medicine Progress Note for Hospitalist Dr. Negrete. Patient seen and examined at beside. No overnight events reported. Patient still continues to have no fevers. Patient is able to close eyes/make purposeful eye movement per her sisters request. Patient was taken off pressure control ventilation yesterday and is is only on pressure support. Unable to obtain full ROS as patient is unable to verbalize. Objective - Vital Signs/Intake and Output Vital Signs (last 24 hours): Temp Pulse Resp BP Pulse Ox 98.1 F 67 20 122/65 100 06/09/18 00:00 06/09/18 00:00 06/09/18 00:00 06/09/18 00:00 06/09/18 00:00 Intake and Output: 06/08/18 06/09/18 18:59 06:59 Intake Total 810 810 Output Total 600 500 Balance 210 310 - Medications Medications: Current Medications Acetaminophen (Tylenol 650 Mg Supp) 650 mg [place] Q6 PRN PRN Reason: Fever >100.4 F Last Admin: 06/03/18 00:22 Dose: 650 mg Acetylcysteine (Acetylcysteine 20%) 4 ml INH RQ4 [facility] Last Admin: 06/09/18 03:55 Dose: Not Given Albuterol/Ipratropium (Duoneb 3 Mg/0.5 Mg (3 Ml) Ud) 3 ml INH RQ4 [facility] Last Admin: 06/09/18 03:55 Dose: 3 ml Amlodipine Besylate (Norvasc) 10 mg PO DAILY [facility] Last Admin: 06/08/18 10:08 Dose: 10 mg Aspirin (Aspirin Chewable) 81 mg PO DAILY [facility] Last Admin: 06/08/18 10:07 Dose: 81 mg Bisacodyl (Dulcolax) 10 mg [place] TID PRN PRN Reason: Constipation Last Admin: 05/10/18 09:45 Dose: 10 mg Clopidogrel Bisulfate (Plavix) 75 mg PO DAILY [facility] Last Admin: 05/22/18 10:07 Dose: 75 mg Dextrose (Dextrose 50% Inj) 0 ml IV STAT PRN; Protocol PRN Reason: Hypoglycemia Protocol Dextrose (Glutose 15) 15 gm PO ONCE PRN; Protocol PRN Reason: Hypoglycemia Protocol Famotidine (Pepcid) 20 mg GT DAILY [facility] Last Admin: 06/08/18 10:08 Dose: 20 mg Glucagon (Glucagen Diagnostic Kit) 1 mg IM STAT PRN; Protocol PRN Reason: Hypoglycemia Protocol Heparin Sodium (Porcine) (Heparin) 5,000 units SC Q8 [facility] Last Admin: 06/09/18 05:21 Dose: 5,000 units Ibuprofen (Motrin Oral Susp) 200 mg PO Q6H PRN PRN Reason: Fever >100.4 F Last Admin: 06/04/18 16:14 Dose: 200 mg Insulin Aspart (Novolog) 0 unit SC [facility]; Protocol Last Admin: 06/08/18 21:48 Dose: Not Given Insulin Glargine (Lantus) 40 unit SC [facility] Last Admin: 06/08/18 21:54 Dose: 40 units Insulin Human Isoph/Insulin Regular (Novolin 70/30 (70/30 Units/Ml) 10 Ml) 15 units SC BID [facility] Last Admin: 06/08/18 18:25 Dose: Not Given Labetalol HCl (Trandate) 10 mg IVP Q4H PRN PRN Reason: Systolic Blood Pressure Last Admin: 05/16/18 11:45 Dose: 10 mg Lactulose (Enulose) 20 gm PO DAILY PRN PRN Reason: Constipation Last Admin: 05/25/18 16:55 Dose: 20 gm Lorazepam (Ativan) 2 mg IVP Q3 PRN PRN Reason: Agitation Last Admin: 06/07/18 08:18 Dose: 2 mg Metoprolol Tartrate (Lopressor) 75 mg PO BID [facility] Last Admin: 06/08/18 18:30 Dose: 75 mg Morphine Sulfate (Morphine) 2 mg IVP Q4 PRN PRN Reason: Pain, moderate (4-7) Last Admin: 06/01/18 21:10 Dose: 2 mg Rosuvastatin Calcium (Crestor) 5 mg PO [facility] Last Admin: 06/08/18 21:50 Dose: 5 mg Senna/Docusate Sodium (Senokot S 50 Mg-8.6 Mg) 1 tab PO BID [facility] Last Admin: 06/08/18 18:30 Dose: 1 tab Vitamin A (Vitamin A & D Oint Ud Foilpak) 1 ea TOP BID PRN PRN Reason: Dry skin Last Admin: 05/30/18 10:24 Dose: 1 ea - Labs Labs: 06/08/18 07:38 06/08/18 07:38 PT 16.8 SECONDS (9.7-12.2) H 05/28/18 07:15 INR 1.5 05/28/18 07:15 APTT 34 SECONDS (21-34) 05/28/18 07:15 - Constitutional Appears: No Acute Distress - Head Exam Head Exam: NORMAL INSPECTION - Eye Exam Pupil Exam: NORMAL ACCOMODATION, PERRL Additional comments: patient able to make eye contact per sisters request - ENT Exam ENT Exam: Mucous Membranes Moist - Neck Exam Additional comments: (+) tracheostomy tube; (-) signs of bleeding or infection - GI/Abdominal Exam GI & Abdominal Exam: Soft, Normal Bowel Sounds Additional comments: PEG tube in place, no erythema present, no discharge - Extremities Exam Extremities Exam: absent: Calf Tenderness, Pedal Edema Additional comments: LE & UE in chronic contracture state - Neurological Exam Neurological Exam: Alert, Awake Additional comments: GCS=7 Eyes open spontanously ; moves extremities to pain Nonverbal - Skin Skin Exam: Dry, Intact, Normal Color, Warm Assessment and Plan - Assessment and Plan (Free Text) Assessment: 57 yr F w/ no known medical history presented TO ED unresponsive; had extensive ICU stay now currently has anoxic brain injury: Anoxic Brain Injury - Neurology consulted, Dr. Duff/Guilherme - rpt EEG: severe non specific diffuse disturbances in cortical activity, brown matter dysfunction - EEG 05/04: diffuse encephalopathy with burst suppression. - Repeat CT head: no bleeding - MRI Brain: subacute favored over acute cerebral hypoxic insult with minimal involvement of the lower haris and the cerebellar hemispheres - keppra 1,000 mg IV Q12H - D/C'ed as EEG was normal - GCS is 7; unresponsive to painful stimuli, nonverbal, eyes open spontaneously - continue to monitor - resume tube feedings vital 1.2 20ml/hr w/ goal to increase to 50 ml/hr Respiratory Failure - Due to Asphyxiation/Possible Suicide Attempt - off pressure control, on pressure support on 06/08 - off pressure support, on trach collar 06/09 - Mucomyst Q4 - Duonebs Q4 - continue to monitor Left wrist Ulcer - ulcer on left wrist w/ eschar - F/u wound care recs - F/u surgery recs DM -Blood sugars remain elevated in high 200s to 300s - insulin increased 2/2 to D5W @75ml/hr started on 06/02 - Lantus increased to 40 Units SC - Novolin 70/30 15 units BID - Accuchecks ACHS - ISS high dose HTN - Metoprolol Tartrate 75 mg PO BID - Norvasc 5 mg PO 1x/day - Labetalol 10 mg IV Q4H PRN SBP > 140 Thrombocytopenia Resolved - platelet drop from 192s to 102s, now to 133s - HIT vs drug induced thrombocytopenia vs ? - Azithromycin & Ceftriaxone started on 06/03, following day drop in platelets - 4T's score for possible HIT: score of 3 -> < 1% probability of HIT - HIT unlikely - Will monitor and D/C Abx Fever spikes Leukocytosis Resolved - WBCs resolved, afebrile > 72 hrs - Ice packs, cooling blanket PRN - Motrin 200 mg Q6H PRN, Tylenol 650 mg Q6H PRN - Started Rocephin 1g Q12 & Azithromycin 500 mg Q24H (started 06/03) - D'C'ed due to possible drug induced thrombocytopenia - sputum cultures from 05/25 - yeast - Per Dr. Mcgill - diflucan 100 mg GT X7 days - D/c meropenum 1g Q8H & flaggyl 500mg Q8H (total 13 days of treatment) - likely neurological - will continue to monitor Transaminitis Resolving - Likely shock liver - Follow LFTs Acute Renal Injury Resolved - BUN/ Cr improving (76/4.5 -> 19/1.0) - likely due to dehydration - Start D5W @150 ml/hr - D/C'ed - increase insulin - see below Hypernatremia Resolved - Na+ 154 06/03 -> 146 06/04 - D5W @150ml/hr - d/fanta - increased insulin- see below plan Hyperkalemia Resolved - K+ 5.4; however sample was hemolyzed - will monitor NSTEMI Resolved - Elevated troponin - has normalized - ASA 81 mg PO daily (restarted 05/25) - Plavix 75mg PO daily (held - given drop in Hb) - hold Crestor 5 mg PO daily - Cardiology consulted, Dr Gay ARF Resolved - Likely Secondary to ATN with Hypernatremia - BUN/Cr have improved - Nephrology consulted, Dr. Samuels PPx Heparin 5,000 Units SC Q8H (restarted 05/25) Pepcid 20mg Q12 05/25 GT Feeding goal to 40 ml/hr Aspiration precautions Seizure precautions suction PRN Turn and reposition q2h PT/OT Dispo: SW reports that pt may have insurance from who is [place] citizen, will look for placement. <Emmett Negrete - Last Filed: 06/11/18 19:40> Objective - Vital Signs/Intake and Output Vital Signs (last 24 hours): Temp Pulse Resp BP Pulse Ox 98.7 F 67 20 105/65 98 06/11/18 16:00 06/11/18 16:00 06/11/18 16:00 06/11/18 17:09 06/11/18 16:00 - Medications Medications: Current Medications Acetaminophen (Tylenol 650 Mg Supp) 650 mg [place] Q6 PRN PRN Reason: Fever >100.4 F Last Admin: 06/03/18 00:22 Dose: 650 mg Acetylcysteine (Acetylcysteine 20%) 4 ml INH RQ4 [facility] Last Admin: 06/11/18 15:35 Dose: 4 ml Albuterol/Ipratropium (Duoneb 3 Mg/0.5 Mg (3 Ml) Ud) 3 ml INH RQ4 [facility] Last Admin: 06/11/18 15:35 Dose: 3 ml Amlodipine Besylate (Norvasc) 10 mg PO DAILY [facility] Last Admin: 06/11/18 10:19 Dose: 10 mg Aspirin (Aspirin Chewable) 81 mg PO DAILY [facility] Last Admin: 06/11/18 10:19 Dose: 81 mg Bisacodyl (Dulcolax) 10 mg [place] TID PRN PRN Reason: Constipation Last Admin: 05/10/18 09:45 Dose: 10 mg Clopidogrel Bisulfate (Plavix) 75 mg PO DAILY [facility] Last Admin: 05/22/18 10:07 Dose: 75 mg Collagenase (Santyl) 1 gm TOP DAILY [facility] Last Admin: 06/11/18 12:26 Dose: Not Given Dextrose (Dextrose 50% Inj) 0 ml IV STAT PRN; Protocol PRN Reason: Hypoglycemia Protocol Dextrose (Glutose 15) 15 gm PO ONCE PRN; Protocol PRN Reason: Hypoglycemia Protocol Famotidine (Pepcid) 20 mg GT DAILY [facility] Last Admin: 06/11/18 10:19 Dose: 20 mg Glucagon (Glucagen Diagnostic Kit) 1 mg IM STAT PRN; Protocol PRN Reason: Hypoglycemia Protocol Heparin Sodium (Porcine) (Heparin) 5,000 units SC Q8 [facility] Last Admin: 06/11/18 14:42 Dose: 5,000 units Ibuprofen (Motrin Oral Susp) 200 mg PO Q6H PRN PRN Reason: Fever >100.4 F Last Admin: 06/04/18 16:14 Dose: 200 mg Insulin Aspart (Novolog) 0 unit SC ACH[facility]; Protocol Last Admin: 06/11/18 17:10 Dose: Not Given Insulin Glargine (Lantus) 40 unit SC [facility] Last Admin: 06/10/18 22:20 Dose: 40 units Insulin Human Isoph/Insulin Regular (Novolin 70/30 (70/30 Units/Ml) 10 Ml) 15 units SC BID [facility] Last Admin: 06/11/18 17:23 Dose: 15 units Labetalol HCl (Trandate) 10 mg IVP Q4H PRN PRN Reason: Systolic Blood Pressure Last Admin: 05/16/18 11:45 Dose: 10 mg Lactulose (Enulose) 20 gm PO DAILY PRN PRN Reason: Constipation Last Admin: 05/25/18 16:55 Dose: 20 gm Metoprolol Tartrate (Lopressor) 75 mg PO BID [facility] Last Admin: 06/11/18 17:09 Dose: Not Given Rosuvastatin Calcium (Crestor) 5 mg PO HS [facility] Last Admin: 06/10/18 22:20 Dose: 5 mg Senna/Docusate Sodium (Senokot S 50 Mg-8.6 Mg) 1 tab PO BID [facility] Last Admin: 06/11/18 17:24 Dose: 1 tab Vitamin A (Vitamin A & D Oint Ud Foilpak) 1 ea TOP BID PRN PRN Reason: Dry skin Last Admin: 05/30/18 10:24 Dose: 1 ea - Labs Labs: 06/11/18 06:32 06/11/18 06:32 PT 16.8 SECONDS (9.7-12.2) H 05/28/18 07:15 INR 1.5 05/28/18 07:15 APTT 34 SECONDS (21-34) 05/28/18 07:15 Attending/Attestation - Attestation I have personally seen and examined this patient.: Yes I have fully participated in the care of the patient.: Yes I have reviewed all pertinent clinical information, including history, physical exam and plan: Yes Notes (Text): Patient shows some improvement.Try to wean as per DR Brennan on pressure support Discussed with the resident
[2018-06-09 07:31] LABS: BASO % 0.5 % (0.0-2.0); EOS # 0.2 K/uL (0.0-0.7); EOS % 2.7 % (0.0-4.0); HEMOGLOBIN 8.3 g/dL (11.0-16.0); LYMPH # 1.6 K/uL (1.0-4.3); MEAN CELL VOLUME 83.3 fL (81.0-99.0); MEAN CORPUSCULAR HEMOGLOBIN 27.1 pg (27.0-31.0); MEAN CORPUSCULAR HGB CONC 32.6 g/dL (33.0-37.0); MEAN PLATELET VOLUME 12.1 fL (7.2-11.7); MONO # 0.6 K/uL (0.0-0.8); NEUT # 5.3 K/uL (1.8-7.0); NEUT % 67.8 % (50.0-75.0); RBC 3.06 Mil/uL (3.80-5.20); RED CELL DISTRIBUTION WIDTH 16.1 % (11.5-14.5); WHITE BLOOD COUNT 7.8 K/uL (4.8-10.8)
[2018-06-09 07:49] LABS: ALB/GLOB RATIO 0.7 (1.0-2.1); ALBUMIN 2.8 g/dL (3.5-5.0); ALT/SGPT 48 U/L (9-52); AST/SGOT 46 U/L (14-36); BLOOD UREA NITROGEN 18 mg/dL (7-17); CALCIUM 8.4 mg/dl (8.6-10.4); GFR NON-AFRICAN AMERICAN > 60
[2018-06-09] MEDS: (Novolog) Insulin Aspart, Recombinant 100 u/ml 10 ml vial SC SCH ×4 (08:40→22:12)
[2018-06-09] MEDS: (Novolin 70/30) NPH/Regular 70/30 Units/ml 10 ml vial SC SCH ×2 (10:13→18:22)
[2018-06-09] MEDS: Docusate-Senna 50 mg-8.6 mg Tab PO SCH ×2 (10:15→18:24)
[2018-06-09 14:13] LABS: ABG ALLEN TEST POS; ARTERIAL BLOOD GAS HEMOGLOBIN 7.1 g/dL (11.7-17.4); ARTERIAL BLOOD GAS O2 SAT 100.4 % (95-98); ARTERIAL BLOOD GAS PCO2 23 mm/Hg (35-45); ARTERIAL BLOOD GAS PH 7.58 (7.35-7.45); ARTERIAL BLOOD GAS PO2 206 mm/Hg (80-100); ARTERIAL BLOOD GAS TCO2 22.3 mmol/L (22-28)
--- NOTE | 2018-06-09 17:43 | CP.PCM.CON ---
History of Present Illness - History of Present Illness History of Present Illness: General Surgery Consult note. Dr. Erika Villalobso. 52 y/o F with an unknown medical history came to [facility] on 05/01 for altered mental status after she was found unresponsive at home. Patient has had a prolonged stay in the hospital and has anoxic brain injury. Pt is currently nonverbal and a complete 12-point ROS is unable to be performed. History obtained through medical records and family at bedside. General surgery is consulted for L Wrist wound with black dry eschar. PMHx: Unknown PSHx: Tracheostomy, Ex Lap with Gastrostomy tube placement Allergies: NKDA Social Hx: Unknown Famly Hx: Unknown Review of Systems - Review of Systems Systems not reviewed;Unavailable: Altered Mental Status Review of Systems: As per HPI Past Patient History - Tetanus Immunizations Tetanus Immunization: Unknown - Past Medical History & Family History Past Medical History?: No - Past Social History Smoking Status: Never Smoked - MUSCULOSKELETAL/RHEUMATOLOGICAL Hx Falls: Yes - PSYCHIATRIC Hx Substance Use: (UNKNOWN) - SURGICAL HISTORY Hx Surgeries: (UNOBTAINABLE) - ANESTHESIA Hx Anesthesia: (UNOBTAINABLE) Meds Allergies/Adverse Reactions: Allergies Allergy/AdvReac Type Severity Reaction Status Date / Time No Known Allergies Allergy Verified 05/05/18 11:51 - Medications Medications: Current Medications Acetaminophen (Tylenol 650 Mg Supp) 650 mg HI Q6 PRN PRN Reason: Fever >100.4 F Last Admin: 06/03/18 00:22 Dose: 650 mg Acetylcysteine (Acetylcysteine 20%) 4 ml INH RQ4 [facility] Last Admin: 06/09/18 16:27 Dose: 4 ml Albuterol/Ipratropium (Duoneb 3 Mg/0.5 Mg (3 Ml) Ud) 3 ml INH RQ4 [facility] Last Admin: 06/09/18 16:27 Dose: 3 ml Amlodipine Besylate (Norvasc) 10 mg PO DAILY [facility] Last Admin: 06/09/18 10:15 Dose: 10 mg Aspirin (Aspirin Chewable) 81 mg PO DAILY [facility] Last Admin: 06/09/18 10:15 Dose: 81 mg Bisacodyl (Dulcolax) 10 mg HI TID PRN PRN Reason: Constipation Last Admin: 05/10/18 09:45 Dose: 10 mg Clopidogrel Bisulfate (Plavix) 75 mg PO DAILY [facility] Last Admin: 05/22/18 10:07 Dose: 75 mg Dextrose (Dextrose 50% Inj) 0 ml IV STAT PRN; Protocol PRN Reason: Hypoglycemia Protocol Dextrose (Glutose 15) 15 gm PO ONCE PRN; Protocol PRN Reason: Hypoglycemia Protocol Famotidine (Pepcid) 20 mg GT DAILY [facility] Last Admin: 06/09/18 10:15 Dose: 20 mg Glucagon (Glucagen Diagnostic Kit) 1 mg IM STAT PRN; Protocol PRN Reason: Hypoglycemia Protocol Heparin Sodium (Porcine) (Heparin) 5,000 units SC Q8 [facility] Last Admin: 06/09/18 13:39 Dose: 5,000 units Ibuprofen (Motrin Oral Susp) 200 mg PO Q6H PRN PRN Reason: Fever >100.4 F Last Admin: 06/04/18 16:14 Dose: 200 mg Insulin Aspart (Novolog) 0 unit SC ACHS [facility]; Protocol Last Admin: 06/09/18 11:40 Dose: Not Given Insulin Glargine (Lantus) 40 unit SC [facility] Last Admin: 06/08/18 21:54 Dose: 40 units Insulin Human Isoph/Insulin Regular (Novolin 70/30 (70/30 Units/Ml) 10 Ml) 15 units SC BID [facility] Last Admin: 06/09/18 10:13 Dose: 15 units Labetalol HCl (Trandate) 10 mg IVP Q4H PRN PRN Reason: Systolic Blood Pressure Last Admin: 05/16/18 11:45 Dose: 10 mg Lactulose (Enulose) 20 gm PO DAILY PRN PRN Reason: Constipation Last Admin: 05/25/18 16:55 Dose: 20 gm Metoprolol Tartrate (Lopressor) 75 mg PO BID [facility] Last Admin: 06/09/18 10:14 Dose: 75 mg Rosuvastatin Calcium (Crestor) 5 mg PO HS [facility] Last Admin: 06/08/18 21:50 Dose: 5 mg Senna/Docusate Sodium (Senokot S 50 Mg-8.6 Mg) 1 tab PO BID [facility] Last Admin: 06/09/18 10:15 Dose: 1 tab Vitamin A (Vitamin A & D Oint Ud Foilpak) 1 ea TOP BID PRN PRN Reason: Dry skin Last Admin: 05/30/18 10:24 Dose: 1 ea Physical Exam - Constitutional Appears: No Acute Distress, Chronically Ill - Head Exam Head Exam: ATRAUMATIC, NORMAL INSPECTION, NORMOCEPHALIC - Eye Exam Eye Exam: EOMI, Normal appearance Pupil Exam: NORMAL ACCOMODATION - ENT Exam ENT Exam: Mucous Membranes Moist - Respiratory Exam Respiratory Exam: NORMAL BREATHING PATTERN. absent: Accessory Muscle Use, Respiratory Distress - Cardiovascular Exam Cardiovascular Exam: REGULAR RHYTHM, +S1, +S2 - GI/Abdominal Exam GI & Abdominal Exam: Normal Bowel Sounds, Soft. absent: Distended, Firm, Rebound, Rigid, Tenderness Additional comments: Gastrostomy tube in place - Extremities Exam Additional comments: L Wrist wound with black eschar noted. No active drainage. No induration or erythema noted. - Neurological Exam Additional comments: GCS 9 E4 V1 M4 Results - Vital Signs Recent Vital Signs: Last Vital Signs Temp 98.5 F 06/09/18 08:01 Pulse 89 06/09/18 08:01 Resp 20 06/09/18 08:01 BP 135/86 06/09/18 10:14 Pulse Ox 97 06/09/18 08:01 - Labs Result Diagrams: 06/10/18 06:58 06/10/18 06:58 Labs: Laboratory Results - last 24 hr 06/08/18 06/08/18 06/08/18 16:18 18:09 21:47 WBC RBC Hgb Hct MCV MCH MCHC RDW Plt Count MPV Neut % (Auto) Lymph % (Auto) [place] % (Auto) Eos % (Auto) Baso % (Auto) Neut # (Auto) Lymph # (Auto) [place] # (Auto) Eos # (Auto) Baso # (Auto) Puncture Site pCO2 pO2 HCO3 ABG pH ABG Total CO2 ABG O2 Saturation ABG Base Excess ABG Hemoglobin ABG Carboxyhemoglobin POC ABG HHb (Measured) ABG Methemoglobin Erik Test A-a O2 Difference Respiratory Index Hgb O2 Saturation Vent Mode FiO2 PEEP Pressure Support Sodium Potassium Chloride Carbon Dioxide Anion Gap BUN Creatinine Est GFR ( Amer) Est GFR (Non-Af Amer) POC Glucose (mg/dL) 95 93 98 Random Glucose Calcium Phosphorus Magnesium Total Bilirubin AST ALT Alkaline Phosphatase Total Protein Albumin Globulin Albumin/Globulin Ratio 06/09/18 06/09/18 06/09/18 07:09 07:23 07:23 WBC 7.8 RBC 3.06 L Hgb 8.3 L Hct 25.5 L MCV 83.3 MCH 27.1 MCHC 32.6 L RDW 16.1 H Plt Count 180 MPV 12.1 H Neut % (Auto) 67.8 Lymph % (Auto) 21.0 [place] % (Auto) 8.0 Eos % (Auto) 2.7 Baso % (Auto) 0.5 Neut # (Auto) 5.3 Lymph # (Auto) 1.6 [place] # (Auto) 0.6 Eos # (Auto) 0.2 Baso # (Auto) 0.0 Puncture Site pCO2 pO2 HCO3 ABG pH ABG Total CO2 ABG O2 Saturation ABG Base Excess ABG Hemoglobin ABG Carboxyhemoglobin POC ABG HHb (Measured) ABG Methemoglobin Erik Test A-a O2 Difference Respiratory Index Hgb O2 Saturation Vent Mode FiO2 PEEP Pressure Support Sodium 140 Potassium 4.4 Chloride 111 H Carbon Dioxide 21 L Anion Gap 13 BUN 18 H Creatinine 0.8 Est GFR ( Amer) > 60 Est GFR (Non-Af Amer) > 60 POC Glucose (mg/dL) 165 H Random Glucose 156 H Calcium 8.4 L Phosphorus 4.1 Magnesium 1.9 Total Bilirubin 0.3 AST 46 H D ALT 48 Alkaline Phosphatase 160 H Total Protein 6.6 Albumin 2.8 L Globulin 3.8 Albumin/Globulin Ratio 0.7 L 06/09/18 06/09/18 06/09/18 11:10 14:00 17:06 WBC RBC Hgb Hct MCV MCH MCHC RDW Plt Count MPV Neut % (Auto) Lymph % (Auto) [place] % (Auto) Eos % (Auto) Baso % (Auto) Neut # (Auto) Lymph # (Auto) [place] # (Auto) Eos # (Auto) Baso # (Auto) Puncture Site Rr pCO2 23 L pO2 206 H HCO3 25.0 ABG pH 7.58 H ABG Total CO2 22.3 ABG O2 Saturation 100.4 H ABG Base Excess 0 ABG Hemoglobin 7.1 L ABG Carboxyhemoglobin 1.4 POC ABG HHb (Measured) -0.4 L ABG Methemoglobin 1.2 Erik Test Pos A-a O2 Difference 122.0 Respiratory Index 0.6 Hgb O2 Saturation 97.9 Vent Mode Cpap FiO2 50.0 PEEP 5 Pressure Support 12 Sodium Potassium Chloride Carbon Dioxide Anion Gap BUN Creatinine Est GFR ( Amer) Est GFR (Non-Af Amer) POC Glucose (mg/dL) 119 H 154 H Random Glucose Calcium Phosphorus Magnesium Total Bilirubin AST ALT Alkaline Phosphatase Total Protein Albumin Globulin Albumin/Globulin Ratio Assessment & Plan - Assessment and Plan (Free Text) Assessment: 52yo F with L wrist wound with black eschar Plan: - Patient will likely benefit from Bedside superficial debridement and santyl application to L wrist wound. - Will plan for procedure at bedside on 06/11 if consent can be obtained - Continue acute treatment as per medical team Further recs as per Dr. Erika Rai PGY2 Surgery
[2018-06-09] MEDS: (Lantus) Insulin Glargine, Recombinant SC SCH (22:16)
[2018-06-10] MEDS: Acetylcysteine 20% Inhal Soln (4ml) INH SCH ×6 (00:10→19:36)
[2018-06-10] MEDS: Albuterol-Ipratrop 3 mg / 0.5 (3 ml) UD INH SCH ×6 (00:10→19:36)
--- NOTE | 2018-06-10 07:25 | CP.PCM.PN ---
<Ritu Dominguez - Last Filed: 06/10/18 15:18> Subjective - Date & Time of Evaluation Date of Evaluation: 06/10/18 Time of Evaluation: 07:30 - Subjective Subjective: Patient examined at bedside with sister in room. Patient off mechanical vent, with O2 via blow-by. ROS unobtainable due to patient mental status. Objective - Vital Signs/Intake and Output Vital Signs (last 24 hours): Temp Pulse Resp BP Pulse Ox 98.1 F 66 20 122/63 100 06/10/18 00:00 06/10/18 00:00 06/10/18 00:00 06/10/18 00:00 06/10/18 00:00 Intake and Output: 06/10/18 06/10/18 06:59 18:59 Intake Total 600 Output Total 700 Balance -100 - Medications Medications: Current Medications Acetaminophen (Tylenol 650 Mg Supp) 650 mg [place] Q6 PRN PRN Reason: Fever >100.4 F Last Admin: 06/03/18 00:22 Dose: 650 mg Acetylcysteine (Acetylcysteine 20%) 4 ml INH RQ4 [facility] Last Admin: 06/10/18 04:07 Dose: 4 ml Albuterol/Ipratropium (Duoneb 3 Mg/0.5 Mg (3 Ml) Ud) 3 ml INH RQ4 [facility] Last Admin: 06/10/18 04:07 Dose: 3 ml Amlodipine Besylate (Norvasc) 10 mg PO DAILY [facility] Last Admin: 06/09/18 10:15 Dose: 10 mg Aspirin (Aspirin Chewable) 81 mg PO DAILY [facility] Last Admin: 06/09/18 10:15 Dose: 81 mg Bisacodyl (Dulcolax) 10 mg WV TID PRN PRN Reason: Constipation Last Admin: 05/10/18 09:45 Dose: 10 mg Clopidogrel Bisulfate (Plavix) 75 mg PO DAILY [facility] Last Admin: 05/22/18 10:07 Dose: 75 mg Dextrose (Dextrose 50% Inj) 0 ml IV STAT PRN; Protocol PRN Reason: Hypoglycemia Protocol Dextrose (Glutose 15) 15 gm PO ONCE PRN; Protocol PRN Reason: Hypoglycemia Protocol Famotidine (Pepcid) 20 mg GT DAILY [facility] Last Admin: 06/09/18 10:15 Dose: 20 mg Glucagon (Glucagen Diagnostic Kit) 1 mg IM STAT PRN; Protocol PRN Reason: Hypoglycemia Protocol Heparin Sodium (Porcine) (Heparin) 5,000 units SC Q8 [facility] Last Admin: 06/10/18 06:02 Dose: 5,000 units Ibuprofen (Motrin Oral Susp) 200 mg PO Q6H PRN PRN Reason: Fever >100.4 F Last Admin: 06/04/18 16:14 Dose: 200 mg Insulin Aspart (Novolog) 0 unit SC ACHS [facility]; Protocol Last Admin: 06/09/18 22:12 Dose: Not Given Insulin Glargine (Lantus) 40 unit SC [facility] Last Admin: 06/09/18 22:16 Dose: 40 units Insulin Human Isoph/Insulin Regular (Novolin 70/30 (70/30 Units/Ml) 10 Ml) 15 units SC BID [facility] Last Admin: 06/09/18 18:22 Dose: 15 units Labetalol HCl (Trandate) 10 mg IVP Q4H PRN PRN Reason: Systolic Blood Pressure Last Admin: 05/16/18 11:45 Dose: 10 mg Lactulose (Enulose) 20 gm PO DAILY PRN PRN Reason: Constipation Last Admin: 05/25/18 16:55 Dose: 20 gm Metoprolol Tartrate (Lopressor) 75 mg PO BID [facility] Last Admin: 06/09/18 18:22 Dose: 75 mg Rosuvastatin Calcium (Crestor) 5 mg PO [facility] Last Admin: 06/09/18 22:16 Dose: 5 mg Senna/Docusate Sodium (Senokot S 50 Mg-8.6 Mg) 1 tab PO BID [facility] Last Admin: 06/09/18 18:24 Dose: 1 tab Vitamin A (Vitamin A & D Oint Ud Foilpak) 1 ea TOP BID PRN PRN Reason: Dry skin Last Admin: 05/30/18 10:24 Dose: 1 ea - Labs Labs: 06/09/18 07:23 06/09/18 07:23 PT 16.8 SECONDS (9.7-12.2) H 05/28/18 07:15 INR 1.5 05/28/18 07:15 APTT 34 SECONDS (21-34) 05/28/18 07:15 - Constitutional Appears: Non-toxic, No Acute Distress - Head Exam Head Exam: ATRAUMATIC, NORMAL INSPECTION, NORMOCEPHALIC - Eye Exam Eye Exam: EOMI, Normal appearance - ENT Exam ENT Exam: Mucous Membranes Dry - Neck Exam Neck Exam: absent: Normal Inspection (trach in place, with O2 via blow-by) - Respiratory Exam Respiratory Exam: Rhonchi. absent: Accessory Muscle Use, Respiratory Distress - Cardiovascular Exam Cardiovascular Exam: REGULAR RHYTHM, +S1, +S2 - GI/Abdominal Exam GI & Abdominal Exam: Soft, Normal Bowel Sounds Additional comments: PEG tube delivering - Extremities Exam Extremities Exam: absent: Normal Inspection, Pedal Edema Additional comments: Upper extremities tense and contracted. - Neurological Exam Neurological Exam: Altered, Awake - Skin Skin Exam: Dry, Normal Color, Warm. absent: Intact (Left wrist wound) Assessment and Plan - Assessment and Plan (Free Text) Assessment: 52 year old female admitted with anoxic brain injury Plan: AMS -improving -GCS 11 -Dr. Vanegas neuro consult, to re-evaluate Respiratory failure -patient currently tolerating O2 via blow-by -continue to monitor O2%/RR -duonebs/mucomyst Left wrist ulcer -debridement per sx -wound care -sx consult Dr. James HTN -metoprolol/norvasc DM -ISS -accuchecks Nutrition -switched to vital 1.2 via PEG today -monitor for tolerance -200cc free water flushes q6 Ppx -heparin, DVT ppx -pepcid, GI ppx Discussed with Dr. Negrete -Ritu Dominguez, PGY-1 <Emmett Negrete - Last Filed: 06/11/18 19:34> Objective - Vital Signs/Intake and Output Vital Signs (last 24 hours): Temp Pulse Resp BP Pulse Ox 98.7 F 67 20 105/65 98 06/11/18 16:00 06/11/18 16:00 06/11/18 16:00 06/11/18 17:09 06/11/18 16:00 - Medications Medications: Current Medications Acetaminophen (Tylenol 650 Mg Supp) 650 mg [place] Q6 PRN PRN Reason: Fever >100.4 F Last Admin: 06/03/18 00:22 Dose: 650 mg Acetylcysteine (Acetylcysteine 20%) 4 ml INH RQ4 [facility] Last Admin: 06/11/18 15:35 Dose: 4 ml Albuterol/Ipratropium (Duoneb 3 Mg/0.5 Mg (3 Ml) Ud) 3 ml INH RQ4 [facility] Last Admin: 06/11/18 15:35 Dose: 3 ml Amlodipine Besylate (Norvasc) 10 mg PO DAILY [facility] Last Admin: 06/11/18 10:19 Dose: 10 mg Aspirin (Aspirin Chewable) 81 mg PO DAILY [facility] Last Admin: 06/11/18 10:19 Dose: 81 mg Bisacodyl (Dulcolax) 10 mg WV TID PRN PRN Reason: Constipation Last Admin: 05/10/18 09:45 Dose: 10 mg Clopidogrel Bisulfate (Plavix) 75 mg PO DAILY [facility] Last Admin: 05/22/18 10:07 Dose: 75 mg Collagenase (Santyl) 1 gm TOP DAILY [facility] Last Admin: 06/11/18 12:26 Dose: Not Given Dextrose (Dextrose 50% Inj) 0 ml IV STAT PRN; Protocol PRN Reason: Hypoglycemia Protocol Dextrose (Glutose 15) 15 gm PO ONCE PRN; Protocol PRN Reason: Hypoglycemia Protocol Famotidine (Pepcid) 20 mg GT DAILY [facility] Last Admin: 06/11/18 10:19 Dose: 20 mg Glucagon (Glucagen Diagnostic Kit) 1 mg IM STAT PRN; Protocol PRN Reason: Hypoglycemia Protocol Heparin Sodium (Porcine) (Heparin) 5,000 units SC Q8 [facility] Last Admin: 06/11/18 14:42 Dose: 5,000 units Ibuprofen (Motrin Oral Susp) 200 mg PO Q6H PRN PRN Reason: Fever >100.4 F Last Admin: 06/04/18 16:14 Dose: 200 mg Insulin Aspart (Novolog) 0 unit SC ACHS [facility]; Protocol Last Admin: 06/11/18 17:10 Dose: Not Given Insulin Glargine (Lantus) 40 unit SC HS [facility] Last Admin: 06/10/18 22:20 Dose: 40 units Insulin Human Isoph/Insulin Regular (Novolin 70/30 (70/30 Units/Ml) 10 Ml) 15 units SC BID [facility] Last Admin: 06/11/18 17:23 Dose: 15 units Labetalol HCl (Trandate) 10 mg IVP Q4H PRN PRN Reason: Systolic Blood Pressure Last Admin: 05/16/18 11:45 Dose: 10 mg Lactulose (Enulose) 20 gm PO DAILY PRN PRN Reason: Constipation Last Admin: 05/25/18 16:55 Dose: 20 gm Metoprolol Tartrate (Lopressor) 75 mg PO BID [facility] Last Admin: 06/11/18 17:09 Dose: Not Given Rosuvastatin Calcium (Crestor) 5 mg PO HS [facility] Last Admin: 06/10/18 22:20 Dose: 5 mg Senna/Docusate Sodium (Senokot S 50 Mg-8.6 Mg) 1 tab PO BID [facility] Last Admin: 06/11/18 17:24 Dose: 1 tab Vitamin A (Vitamin A & D Oint Ud Foilpak) 1 ea TOP BID PRN PRN Reason: Dry skin Last Admin: 05/30/18 10:24 Dose: 1 ea - Labs Labs: 06/11/18 06:32 06/11/18 06:32 PT 16.8 SECONDS (9.7-12.2) H 05/28/18 07:15 INR 1.5 05/28/18 07:15 APTT 34 SECONDS (21-34) 05/28/18 07:15 Attending/Attestation - Attestation I have personally seen and examined this patient.: Yes I have fully participated in the care of the patient.: Yes I have reviewed all pertinent clinical information, including history, physical exam and plan: Yes Notes (Text): off ventilator,Little responsive continue wean as tolerated d/w family at bedside
[2018-06-10 07:27] LABS: BASO # 0.1 K/uL (0.0-0.2); BASO % 0.5 % (0.0-2.0); EOS # 0.2 K/uL (0.0-0.7); EOS % 1.7 % (0.0-4.0); HEMOGLOBIN 8.9 g/dL (11.0-16.0); LYMPH % 16.8 % (20.0-40.0); MEAN CELL VOLUME 83.1 fL (81.0-99.0); MEAN CORPUSCULAR HEMOGLOBIN 26.8 pg (27.0-31.0); MEAN CORPUSCULAR HGB CONC 32.3 g/dL (33.0-37.0); MEAN PLATELET VOLUME 11.7 fL (7.2-11.7); MONO # 0.9 K/uL (0.0-0.8); MONO % 7.7 % (0.0-10.0); NEUT # 8.5 K/uL (1.8-7.0); NEUT % 73.3 % (50.0-75.0); NRBC % 0.1 % (0.0-2.0); RBC 3.33 Mil/uL (3.80-5.20); RED CELL DISTRIBUTION WIDTH 16.2 % (11.5-14.5); WHITE BLOOD COUNT 11.6 K/uL (4.8-10.8)
[2018-06-10 07:45] LABS: ALB/GLOB RATIO 0.8 (1.0-2.1); ALBUMIN 3.2 g/dL (3.5-5.0); ALT/SGPT 44 U/L (9-52); AST/SGOT 45 U/L (14-36); BLOOD UREA NITROGEN 20 mg/dL (7-17); GFR NON-AFRICAN AMERICAN > 60
[2018-06-10] MEDS: (Novolog) Insulin Aspart, Recombinant 100 u/ml 10 ml vial SC SCH ×4 (08:24→22:09)
[2018-06-10] MEDS: Docusate-Senna 50 mg-8.6 mg Tab PO SCH ×2 (10:07→17:41)
[2018-06-10] MEDS: Collagenase 250 Units/gm Ointment(30 gm) TOP SCH (10:07)
[2018-06-10] MEDS: (Novolin 70/30) NPH/Regular 70/30 Units/ml 10 ml vial SC SCH ×2 (11:26→17:32)
--- NOTE | 2018-06-10 12:09 | PCM.SURG1 ---
Surgeon's Initial Post Op Note - Surgeon's Notes Surgeon: Dr. [place] Justice: Fredi PGY2 Type of Anesthesia: None Pre-Operative Diagnosis: Left wrist wound Operative Findings: Written consent obtained from sister. Patient prepped with chlorhexidine swab. A #15 scalpel was used to superficially debride necrotic tissue from the left wrist. Skin wound excoriated with the scalpel superficially. No bleeding. Santly was used over the entire wound including base. A clean, sterile dressing was placed over the wound. Patient tolerated procedure well. Post-Operative Diagnosis: same Operation Performed: Bedside sharp superficial debridement Specimen/Specimens Removed: none Estimated Blood Loss: EBL {In ML}: 0 Blood Products Given: N/A Drains Used: No Drains Post-Op Condition: Good Date of Surgery/Procedure: 06/10/18 Time of Surgery/Procedure: 09:00
[2018-06-10 12:18] LABS: ABG ALLEN TEST POS; ARTERIAL BLOOD GAS HCO3 26.4 mmol/L (21-28); ARTERIAL BLOOD GAS HEMOGLOBIN 8.8 g/dL (11.7-17.4); ARTERIAL BLOOD GAS PCO2 30 mm/Hg (35-45); ARTERIAL BLOOD GAS PH 7.52 (7.35-7.45); ARTERIAL BLOOD GAS PO2 172 mm/Hg (80-100); ARTERIAL BLOOD GAS TCO2 25.4 mmol/L (22-28)
[2018-06-10] MEDS: (Lantus) Insulin Glargine, Recombinant SC SCH (22:20)
[2018-06-11] MEDS: Acetylcysteine 20% Inhal Soln (4ml) INH SCH ×6 (00:38→19:10)
[2018-06-11] MEDS: Albuterol-Ipratrop 3 mg / 0.5 (3 ml) UD INH SCH ×6 (00:38→19:10)
[2018-06-11 06:51] LABS: BASO # 0.1 K/uL (0.0-0.2); BASO % 0.9 % (0.0-2.0); EOS # 0.2 K/uL (0.0-0.7); EOS % 2.7 % (0.0-4.0); HEMOGLOBIN 8.5 g/dL (11.0-16.0); LYMPH # 1.8 K/uL (1.0-4.3); LYMPH % 22.4 % (20.0-40.0); MEAN CORPUSCULAR HEMOGLOBIN 27.2 pg (27.0-31.0); MEAN CORPUSCULAR HGB CONC 32.4 g/dL (33.0-37.0); MEAN PLATELET VOLUME 11.2 fL (7.2-11.7); MONO # 0.6 K/uL (0.0-0.8); NEUT # 5.2 K/uL (1.8-7.0); RBC 3.14 Mil/uL (3.80-5.20); RED CELL DISTRIBUTION WIDTH 16.5 % (11.5-14.5); WHITE BLOOD COUNT 7.9 K/uL (4.8-10.8)
--- NOTE | 2018-06-11 07:08 | CP.PCM.PN ---
<Michael Diaz M - Last Filed: 06/11/18 16:14> Subjective - Date & Time of Evaluation Date of Evaluation: 06/11/18 Time of Evaluation: 07:00 - Subjective Subjective: PGY 1 Medicine Progress Note for Hospitalist Dr. Negrete. Patient seen and examined at bedside. No acute events overnight. Patient still unable verbalize; however, she does have voluntary eye movement, including ability to close/open eyes on yes/no questions. Per eye movement, patient does not express any pain. Further ROS unable to fully obtain due to current medical condition. Sister at bedside and states pt is resting comfortably and looks like she is no acute distress. Objective - Vital Signs/Intake and Output Vital Signs (last 24 hours): Temp Pulse Resp BP Pulse Ox 98.3 F 68 20 110/68 100 06/11/18 00:00 06/11/18 01:33 06/11/18 00:00 06/11/18 01:33 06/11/18 01:33 Intake and Output: 06/11/18 06/11/18 06:59 18:59 Intake Total 720 Output Total 450 Balance 270 - Medications Medications: Current Medications Acetaminophen (Tylenol 650 Mg Supp) 650 mg AK Q6 PRN PRN Reason: Fever >100.4 F Last Admin: 06/03/18 00:22 Dose: 650 mg Acetylcysteine (Acetylcysteine 20%) 4 ml INH RQ4 [facility] Last Admin: 06/11/18 03:18 Dose: 4 ml Albuterol/Ipratropium (Duoneb 3 Mg/0.5 Mg (3 Ml) Ud) 3 ml INH RQ4 [facility] Last Admin: 06/11/18 03:18 Dose: 3 ml Amlodipine Besylate (Norvasc) 10 mg PO DAILY [facility] Last Admin: 06/10/18 10:07 Dose: 10 mg Aspirin (Aspirin Chewable) 81 mg PO DAILY [facility] Last Admin: 06/10/18 10:07 Dose: 81 mg Bisacodyl (Dulcolax) 10 mg AK TID PRN PRN Reason: Constipation Last Admin: 05/10/18 09:45 Dose: 10 mg Clopidogrel Bisulfate (Plavix) 75 mg PO DAILY [facility] Last Admin: 05/22/18 10:07 Dose: 75 mg Collagenase (Santyl) 1 gm TOP DAILY [facility] Last Admin: 06/10/18 10:07 Dose: Not Given Dextrose (Dextrose 50% Inj) 0 ml IV STAT PRN; Protocol PRN Reason: Hypoglycemia Protocol Dextrose (Glutose 15) 15 gm PO ONCE PRN; Protocol PRN Reason: Hypoglycemia Protocol Famotidine (Pepcid) 20 mg GT DAILY [facility] Last Admin: 06/10/18 10:07 Dose: 20 mg Glucagon (Glucagen Diagnostic Kit) 1 mg IM STAT PRN; Protocol PRN Reason: Hypoglycemia Protocol Heparin Sodium (Porcine) (Heparin) 5,000 units SC Q8 [facility] Last Admin: 06/11/18 06:02 Dose: 5,000 units Ibuprofen (Motrin Oral Susp) 200 mg PO Q6H PRN PRN Reason: Fever >100.4 F Last Admin: 06/04/18 16:14 Dose: 200 mg Insulin Aspart (Novolog) 0 unit SC [facility]; Protocol Last Admin: 06/10/18 22:09 Dose: Not Given Insulin Glargine (Lantus) 40 unit SC [facility] Last Admin: 06/10/18 22:20 Dose: 40 units Insulin Human Isoph/Insulin Regular (Novolin 70/30 (70/30 Units/Ml) 10 Ml) 15 units SC BID [facility] Last Admin: 06/10/18 17:32 Dose: 15 units Labetalol HCl (Trandate) 10 mg IVP Q4H PRN PRN Reason: Systolic Blood Pressure Last Admin: 05/16/18 11:45 Dose: 10 mg Lactulose (Enulose) 20 gm PO DAILY PRN PRN Reason: Constipation Last Admin: 05/25/18 16:55 Dose: 20 gm Metoprolol Tartrate (Lopressor) 75 mg PO BID [facility] Last Admin: 06/10/18 17:41 Dose: 75 mg Rosuvastatin Calcium (Crestor) 5 mg PO HS [facility] Last Admin: 06/10/18 22:20 Dose: 5 mg Senna/Docusate Sodium (Senokot S 50 Mg-8.6 Mg) 1 tab PO BID [facility] Last Admin: 06/10/18 17:41 Dose: 1 tab Vitamin A (Vitamin A & D Oint Ud Foilpak) 1 ea TOP BID PRN PRN Reason: Dry skin Last Admin: 05/30/18 10:24 Dose: 1 ea - Labs Labs: 06/11/18 06:32 06/10/18 06:58 PT 16.8 SECONDS (9.7-12.2) H 05/28/18 07:15 INR 1.5 05/28/18 07:15 APTT 34 SECONDS (21-34) 05/28/18 07:15 - Constitutional Appears: Non-toxic, No Acute Distress - Head Exam Head Exam: ATRAUMATIC, NORMAL INSPECTION, NORMOCEPHALIC - Eye Exam Eye Exam: EOMI, Normal appearance - ENT Exam ENT Exam: Mucous Membranes Moist - Respiratory Exam Respiratory Exam: NORMAL BREATHING PATTERN Additional comments: currently on trach collar, with humidified oxygen - Cardiovascular Exam Cardiovascular Exam: +S1, +S2 - GI/Abdominal Exam GI & Abdominal Exam: Soft, Normal Bowel Sounds. absent: Firm, Guarding, Rigid Additional comments: peg tube in place, no erythema present - Extremities Exam Extremities Exam: absent: Pedal Edema Additional comments: UE contracted at wrist, 3/5 muscle strength LE 2/5 strength, R > L - Neurological Exam Neurological Exam: Alert, Awake Neuro motor strength exam: Left Upper Extremity: 3, Right Upper Extremity: 3, Left Lower Extremity: 2/1, Right Lower Extremity: 2/1 Additional comments: GCS 11 unable to verbalize, spontaneous eye movement, obeys command - Skin Skin Exam: Dry, Intact, Normal Color, Warm Assessment and Plan - Assessment and Plan (Free Text) Assessment: 57 yr F w/ no known medical history presented TO ED unresponsive, possible suicidal vs homicidal attempt; had extensive ICU stay requiring intubation, treatment for supsis, believe to have anoxic brain injury. Recently pt was able to be weaned of ventilator to tach collar, patient response to commands, opening eyes; Anoxic Brain Injury - Initial Neurology consulted, Dr. Duff/Guilherme - rpt EEG: severe non specific diffuse disturbances in cortical activity, brown matter dysfunction - MRI - MRI Brain: subacute favored over acute cerebral hypoxic insult with minimal involvement of the lower haris and the cerebellar hemispheres - re-consult for neurology; no recs at this point - GCS is 11; obeys commands nonverbal, eyes open spontaneously - tube feedings vital 1.2 initial 20ml/hr w/ goal to increase to 50 ml/hr, currently 50ml/hr - F/u PT recs - F/u speech eval recs Respiratory Failure Resolved - Due to Asphyxiation/Possible Suicide Attempt - off ventilator 06/09, on trach collar - Mucomyst Q4 - Duonebs Q4 - continue to monitor Left wrist Ulcer - ulcer on left wrist w/ eschar - surgery recs - bedside debridement on 122/6 - Santyl daily DM - Blood sugars improved to 100s to 200s - Lantus 40 Units SC - Novolin 70/30 15 units BID - Accuchecks ACHS - ISS high dose - will continue current regimen as patient in GT feedings HTN - Metoprolol Tartrate 75 mg PO BID - Norvasc 5 mg PO 1x/day - Labetalol 10 mg IV Q4H PRN SBP > 140 Transaminitis Resolving - Likely shock liver - Follow LFTs Thrombocytopenia Resolved - platelet drop from 192s to 102s, now to 133s - HIT vs drug induced thrombocytopenia vs ? - Azithromycin & Ceftriaxone started on 06/03, following day drop in platelets - 4T's score for possible HIT: score of 3 -> < 1% probability of HIT - HIT unlikely - Will monitor and D/C Abx Fever spikes Leukocytosis Resolved - WBCs resolved, afebrile > 72 hrs - Ice packs, cooling blanket PRN - Motrin 200 mg Q6H PRN, Tylenol 650 mg Q6H PRN - Started Rocephin 1g Q12 & Azithromycin 500 mg Q24H (started 06/03) - D'C'ed due to possible drug induced thrombocytopenia - sputum cultures from 05/25 - yeast - Per Dr. Mcgill - diflucan 100 mg GT X7 days - D/c meropenum 1g Q8H & flaggyl 500mg Q8H (total 13 days of treatment) - likely neurological - will continue to monitor Acute Renal Injury Resolved - BUN/ Cr improving (76/4.5 -> 19/1.0) - likely due to dehydration - Start D5W @150 ml/hr - D/C'ed - increase insulin - see below Hypernatremia Resolved - Na+ 154 06/03 -> 146 06/04 - D5W @150ml/hr - d/fanta - increased insulin- see below plan NSTEMI Resolved - Elevated troponin - has normalized - ASA 81 mg PO daily (restarted 05/25) - Plavix 75mg PO daily (held - given drop in Hb) - hold Crestor 5 mg PO daily - Cardiology consulted, Dr Gay PPx Heparin 5,000 Units SC Q8H (restarted 05/25) Pepcid 20mg Q12 Aspiration precautions Seizure precautions suction PRN Turn and reposition q2h PT/OT speech eval Dispo: SW reports that pt may have insurance from who is [place] citizen, will look for placement. <Emmett Negrete - Last Filed: 06/11/18 18:13> Objective - Vital Signs/Intake and Output Vital Signs (last 24 hours): Temp Pulse Resp BP Pulse Ox 98.7 F 67 20 105/65 98 06/11/18 16:00 06/11/18 16:00 06/11/18 16:00 06/11/18 17:09 06/11/18 16:00 Intake and Output: 06/11/18 06/11/18 06:59 18:59 Intake Total 720 Output Total 450 Balance 270 - Medications Medications: Current Medications Acetaminophen (Tylenol 650 Mg Supp) 650 mg AK Q6 PRN PRN Reason: Fever >100.4 F Last Admin: 06/03/18 00:22 Dose: 650 mg Acetylcysteine (Acetylcysteine 20%) 4 ml INH RQ4 [facility] Last Admin: 06/11/18 15:35 Dose: 4 ml Albuterol/Ipratropium (Duoneb 3 Mg/0.5 Mg (3 Ml) Ud) 3 ml INH RQ4 [facility] Last Admin: 06/11/18 15:35 Dose: 3 ml Amlodipine Besylate (Norvasc) 10 mg PO DAILY [facility] Last Admin: 06/11/18 10:19 Dose: 10 mg Aspirin (Aspirin Chewable) 81 mg PO DAILY [facility] Last Admin: 06/11/18 10:19 Dose: 81 mg Bisacodyl (Dulcolax) 10 mg AK TID PRN PRN Reason: Constipation Last Admin: 05/10/18 09:45 Dose: 10 mg Clopidogrel Bisulfate (Plavix) 75 mg PO DAILY [facility] Last Admin: 05/22/18 10:07 Dose: 75 mg Collagenase (Santyl) 1 gm TOP DAILY [facility] Last Admin: 06/11/18 12:26 Dose: Not Given Dextrose (Dextrose 50% Inj) 0 ml IV STAT PRN; Protocol PRN Reason: Hypoglycemia Protocol Dextrose (Glutose 15) 15 gm PO ONCE PRN; Protocol PRN Reason: Hypoglycemia Protocol Famotidine (Pepcid) 20 mg GT DAILY [facility] Last Admin: 06/11/18 10:19 Dose: 20 mg Glucagon (Glucagen Diagnostic Kit) 1 mg IM STAT PRN; Protocol PRN Reason: Hypoglycemia Protocol Heparin Sodium (Porcine) (Heparin) 5,000 units SC Q8 [facility] Last Admin: 06/11/18 14:42 Dose: 5,000 units Ibuprofen (Motrin Oral Susp) 200 mg PO Q6H PRN PRN Reason: Fever >100.4 F Last Admin: 06/04/18 16:14 Dose: 200 mg Insulin Aspart (Novolog) 0 unit SC [facility]; Protocol Last Admin: 06/11/18 17:10 Dose: Not Given Insulin Glargine (Lantus) 40 unit SC [facility] Last Admin: 06/10/18 22:20 Dose: 40 units Insulin Human Isoph/Insulin Regular (Novolin 70/30 (70/30 Units/Ml) 10 Ml) 15 units SC BID [facility] Last Admin: 06/11/18 17:23 Dose: 15 units Labetalol HCl (Trandate) 10 mg IVP Q4H PRN PRN Reason: Systolic Blood Pressure Last Admin: 05/16/18 11:45 Dose: 10 mg Lactulose (Enulose) 20 gm PO DAILY PRN PRN Reason: Constipation Last Admin: 05/25/18 16:55 Dose: 20 gm Metoprolol Tartrate (Lopressor) 75 mg PO BID [facility] Last Admin: 06/11/18 17:09 Dose: Not Given Rosuvastatin Calcium (Crestor) 5 mg PO [facility] Last Admin: 06/10/18 22:20 Dose: 5 mg Senna/Docusate Sodium (Senokot S 50 Mg-8.6 Mg) 1 tab PO BID [facility] Last Admin: 06/11/18 17:24 Dose: 1 tab Vitamin A (Vitamin A & D Oint Ud Foilpak) 1 ea TOP BID PRN PRN Reason: Dry skin Last Admin: 05/30/18 10:24 Dose: 1 ea - Labs Labs: 06/11/18 06:32 06/11/18 06:32 PT 16.8 SECONDS (9.7-12.2) H 05/28/18 07:15 INR 1.5 05/28/18 07:15 APTT 34 SECONDS (21-34) 05/28/18 07:15 Attending/Attestation - Attestation I have personally seen and examined this patient.: Yes I have fully participated in the care of the patient.: Yes I have reviewed all pertinent clinical information, including history, physical exam and plan: Yes Notes (Text): seen and examined,awake and responsive doing good onn Trach collar
[2018-06-11 07:35] LABS: ALB/GLOB RATIO 0.8 (1.0-2.1); ALT/SGPT 39 U/L (9-52); AST/SGOT 33 U/L (14-36); BLOOD UREA NITROGEN 22 mg/dL (7-17); GFR NON-AFRICAN AMERICAN > 60
[2018-06-11] MEDS: (Novolog) Insulin Aspart, Recombinant 100 u/ml 10 ml vial SC SCH ×4 (08:26→22:41)
--- NOTE | 2018-06-11 09:01 | CP.PCM.PCO ---
Physician Communication Note - Physician Communication Note Physician Communication Note: Santyl reapplied. eschar softer w/ edges coming off. Continue daily.
[2018-06-11] MEDS: Docusate-Senna 50 mg-8.6 mg Tab PO SCH ×2 (10:18→17:24)
[2018-06-11] MEDS: (Novolin 70/30) NPH/Regular 70/30 Units/ml 10 ml vial SC SCH ×2 (10:19→17:23)
[2018-06-11] MEDS: Collagenase 250 Units/gm Ointment(30 gm) TOP SCH (12:26)
[2018-06-11] MEDS ORDERED: SILVASORB ANTIMICROBIAL WOUND GEL TOP SCH (20:00)
[2018-06-11] MEDS: (Lantus) Insulin Glargine, Recombinant SC SCH ×2 (22:14→22:46)
[2018-06-12] MEDS: Albuterol-Ipratrop 3 mg / 0.5 (3 ml) UD INH SCH ×6 (00:45→19:32)
[2018-06-12] MEDS: Acetylcysteine 20% Inhal Soln (4ml) INH SCH ×6 (00:45→19:32)
[2018-06-12 07:57] LABS: BASO % 0.5 % (0.0-2.0); EOS # 0.2 K/uL (0.0-0.7); EOS % 3.2 % (0.0-4.0); LYMPH # 2.4 K/uL (1.0-4.3); LYMPH % 31.7 % (20.0-40.0); MEAN CELL VOLUME 84.1 fL (81.0-99.0); MEAN CORPUSCULAR HEMOGLOBIN 27.8 pg (27.0-31.0); MEAN CORPUSCULAR HGB CONC 33.1 g/dL (33.0-37.0); MEAN PLATELET VOLUME 11.2 fL (7.2-11.7); MONO # 0.7 K/uL (0.0-0.8); MONO % 8.9 % (0.0-10.0); NEUT # 4.2 K/uL (1.8-7.0); NEUT % 55.7 % (50.0-75.0); RBC 3.25 Mil/uL (3.80-5.20); RED CELL DISTRIBUTION WIDTH 17.1 % (11.5-14.5); WHITE BLOOD COUNT 7.5 K/uL (4.8-10.8)
[2018-06-12] MEDS: (Novolog) Insulin Aspart, Recombinant 100 u/ml 10 ml vial SC SCH ×4 (08:00→21:47)
--- NOTE | 2018-06-12 08:17 | CP.PCM.PN ---
<Michael Diaz - Last Filed: 06/12/18 17:53> Subjective - Date & Time of Evaluation Date of Evaluation: 06/12/18 Time of Evaluation: 08:05 - Subjective Subjective: PGY 1 Medicine Progress Note for Hospitalist Dr. Negrete. Patient seen and examined at beside. No acute events reported overnight. Pt unable to verbalize still, however, pt is more active with motion and to command. Pt is moving extremities, face, and is not looking in any acute distress. Objective - Vital Signs/Intake and Output Vital Signs (last 24 hours): Temp Pulse Resp BP Pulse Ox 97.5 F L 72 22 120/69 100 06/12/18 08:00 06/12/18 08:00 06/12/18 08:00 06/12/18 08:00 06/12/18 08:00 - Medications Medications: Current Medications Acetaminophen (Tylenol 650 Mg Supp) 650 mg [place] Q6 PRN PRN Reason: Fever >100.4 F Last Admin: 06/03/18 00:22 Dose: 650 mg Acetylcysteine (Acetylcysteine 20%) 4 ml INH RQ4 [facility] Last Admin: 06/12/18 03:50 Dose: Not Given Albuterol/Ipratropium (Duoneb 3 Mg/0.5 Mg (3 Ml) Ud) 3 ml INH RQ4 [facility] Last Admin: 06/12/18 03:50 Dose: 3 ml Amlodipine Besylate (Norvasc) 10 mg PO DAILY [facility] Last Admin: 06/11/18 10:19 Dose: 10 mg Aspirin (Aspirin Chewable) 81 mg PO DAILY [facility] Last Admin: 06/11/18 10:19 Dose: 81 mg Bisacodyl (Dulcolax) 10 mg NC TID PRN PRN Reason: Constipation Last Admin: 05/10/18 09:45 Dose: 10 mg Clopidogrel Bisulfate (Plavix) 75 mg PO DAILY [facility] Last Admin: 05/22/18 10:07 Dose: 75 mg Collagenase (Santyl) 1 gm TOP DAILY [facility] Last Admin: 06/11/18 12:26 Dose: Not Given Dextrose (Dextrose 50% Inj) 0 ml IV STAT PRN; Protocol PRN Reason: Hypoglycemia Protocol Dextrose (Glutose 15) 15 gm PO ONCE PRN; Protocol PRN Reason: Hypoglycemia Protocol Famotidine (Pepcid) 20 mg GT DAILY [facility] Last Admin: 06/11/18 10:19 Dose: 20 mg Glucagon (Glucagen Diagnostic Kit) 1 mg IM STAT PRN; Protocol PRN Reason: Hypoglycemia Protocol Heparin Sodium (Porcine) (Heparin) 5,000 units SC Q8 [facility] Last Admin: 06/12/18 06:12 Dose: 5,000 units Ibuprofen (Motrin Oral Susp) 200 mg PO Q6H PRN PRN Reason: Fever >100.4 F Last Admin: 06/04/18 16:14 Dose: 200 mg Insulin Aspart (Novolog) 0 unit SC [facility]; Protocol Last Admin: 06/11/18 22:41 Dose: Not Given Insulin Glargine (Lantus) 40 unit SC [facility] Last Admin: 06/11/18 22:46 Dose: 40 units Insulin Human Isoph/Insulin Regular (Novolin 70/30 (70/30 Units/Ml) 10 Ml) 15 units SC BID [facility] Last Admin: 06/11/18 17:23 Dose: 15 units Labetalol HCl (Trandate) 10 mg IVP Q4H PRN PRN Reason: Systolic Blood Pressure Last Admin: 05/16/18 11:45 Dose: 10 mg Lactulose (Enulose) 20 gm PO DAILY PRN PRN Reason: Constipation Last Admin: 05/25/18 16:55 Dose: 20 gm Metoprolol Tartrate (Lopressor) 75 mg PO BID [facility] Last Admin: 06/11/18 17:09 Dose: Not Given Rosuvastatin Calcium (Crestor) 5 mg PO [facility] Last Admin: 06/11/18 22:13 Dose: 5 mg Senna/Docusate Sodium (Senokot S 50 Mg-8.6 Mg) 1 tab PO BID [facility] Last Admin: 06/11/18 17:24 Dose: 1 tab Vitamin A (Vitamin A & D Oint Ud Foilpak) 1 ea TOP BID PRN PRN Reason: Dry skin Last Admin: 05/30/18 10:24 Dose: 1 ea - Labs Labs: 06/12/18 07:52 06/11/18 06:32 PT 16.8 SECONDS (9.7-12.2) H 05/28/18 07:15 INR 1.5 05/28/18 07:15 APTT 34 SECONDS (21-34) 05/28/18 07:15 - Constitutional Appears: Non-toxic, No Acute Distress - Head Exam Head Exam: NORMAL INSPECTION - Eye Exam Eye Exam: Normal appearance Pupil Exam: NORMAL ACCOMODATION - ENT Exam ENT Exam: Mucous Membranes Moist - Respiratory Exam Respiratory Exam: NORMAL BREATHING PATTERN Additional comments: currently on trach collar, with humidified oxygen - Cardiovascular Exam Cardiovascular Exam: +S1, +S2 - GI/Abdominal Exam GI & Abdominal Exam: Soft, Normal Bowel Sounds Additional comments: peg tube in place, no erythema present - Extremities Exam Extremities Exam: absent: Pedal Edema Additional comments: UE contracted at wrist, 3/5 muscle strength LE 2/5 strength, R > L - Neurological Exam Neurological Exam: Alert, Awake Additional comments: GCS 11 unable to verbalize, spontaneous eye movement, obeys command - Psychiatric Exam Psychiatric exam: Normal Mood - Skin Skin Exam: Dry, Intact, Normal Color, Warm Assessment and Plan - Assessment and Plan (Free Text) Assessment: 57 yr F w/ no known medical history presented TO ED unresponsive, possible suicidal vs homicidal attempt; had extensive ICU stay requiring intubation, treatment for supsis, believe to have anoxic brain injury. Recently pt was able to be weaned of ventilator to tach collar, patient response to commands, opening eyes; Anoxic Brain Injury - Initial Neurology consulted, Dr. Duff/Guilherme - rpt EEG: severe non specific diffuse disturbances in cortical activity, brown matter dysfunction - MRI - MRI Brain: subacute favored over acute cerebral hypoxic insult with minimal involvement of the lower haris and the cerebellar hemispheres - re-consult for neurology; no recs at this point - GCS is 11; obeys commands nonverbal, eyes open spontaneously - tube feedings vital 1.2 initial 20ml/hr w/ goal to increase to 50 ml/hr, cur rently 50ml/hr - F/u PT recs - F/u speech eval recs Respiratory Failure Resolved - Due to Asphyxiation/Possible Suicide Attempt - off ventilator 06/09, on trach collar - per Dr. Brennan, keep on trach collar - Mucomyst Q4 - Duonebs Q4 - continue to monitor Left wrist Ulcer - ulcer on left wrist w/ eschar - surgery recs - bedside debridement on 122/6 - Santyl daily DM - Blood sugars improved to 100s to 200s - Lantus 40 Units SC - Novolin 70/30 15 units BID - Accuchecks ACHS - ISS high dose - will continue current regimen as patient in GT feedings HTN - Metoprolol Tartrate 75 mg PO BID - Norvasc 5 mg PO 1x/day - Labetalol 10 mg IV Q4H PRN SBP > 140 Transaminitis Resolving - Likely shock liver - Follow LFTs Thrombocytopenia Resolved - platelet drop from 192s to 102s, now to 133s - HIT vs drug induced thrombocytopenia vs ? - Azithromycin & Ceftriaxone started on 06/03, following day drop in platelets - 4T's score for possible HIT: score of 3 -> < 1% probability of HIT - HIT unlikely - Will monitor and D/C Abx Fever spikes Leukocytosis Resolved - WBCs resolved, afebrile > 72 hrs - Ice packs, cooling blanket PRN - Motrin 200 mg Q6H PRN, Tylenol 650 mg Q6H PRN - Started Rocephin 1g Q12 & Azithromycin 500 mg Q24H (started 06/03) - D'C'ed due to possible drug induced thrombocytopenia - sputum cultures from 05/25 - yeast - Per Dr. Mcgill - diflucan 100 mg GT X7 days - D/c meropenum 1g Q8H & flaggyl 500mg Q8H (total 13 days of treatment) - likely neurological - will continue to monitor Acute Renal Injury Resolved - BUN/ Cr improving (76/4.5 -> 19/1.0) - likely due to dehydration - Start D5W @150 ml/hr - D/C'ed - increase insulin - see below Hypernatremia Resolved - Na+ 154 06/03 -> 146 06/04 - D5W @150ml/hr - d/fanta - increased insulin- see below plan NSTEMI Resolved - Elevated troponin - has normalized - ASA 81 mg PO daily (restarted 05/25) - Plavix 75mg PO daily (held - given drop in Hb) - hold Crestor 5 mg PO daily - Cardiology consulted, Dr Gay PPx Heparin 5,000 Units SC Q8H (restarted 05/25) Pepcid 20mg Q12 Aspiration precautions Seizure precautions suction PRN Turn and reposition q2h PT/OT speech eval Dispo: SW reports that pt may have insurance from who is [place] citizen, will look for placement. <Emmett Negrete - Last Filed: 12/12/18 18:14> Objective - Vital Signs/Intake and Output Vital Signs (last 24 hours): Temp Pulse Resp BP Pulse Ox 98.4 F 97 H 20 130/70 99 06/16/18 08:10 06/16/18 08:10 06/16/18 08:10 06/16/18 10:05 06/16/18 08:10 Intake and Output: 06/16/18 06/16/18 06:59 18:59 Intake Total 1400 600 Output Total 600 300 Balance 800 300 - Medications Medications: Current Medications Acetylcysteine (Acetylcysteine 20%) 4 ml INH RQ4 [facility] Last Admin: 06/16/18 13:20 Dose: 4 ml Albuterol/Ipratropium (Duoneb 3 Mg/0.5 Mg (3 Ml) Ud) 3 ml INH RQ4 [facility] Last Admin: 06/16/18 13:20 Dose: 3 ml Amlodipine Besylate (Norvasc) 10 mg PO DAILY [facility] Last Admin: 06/16/18 10:06 Dose: 10 mg Aspirin (Aspirin Chewable) 81 mg PO DAILY [facility] Last Admin: 06/16/18 10:04 Dose: 81 mg Bisacodyl (Dulcolax) 10 mg NC TID PRN PRN Reason: Constipation Last Admin: 05/10/18 09:45 Dose: 10 mg Clopidogrel Bisulfate (Plavix) 75 mg PO DAILY [facility] Last Admin: 05/22/18 10:07 Dose: 75 mg Dextrose (Dextrose 50% Inj) 0 ml IV STAT PRN; Protocol PRN Reason: Hypoglycemia Protocol Dextrose (Glutose 15) 15 gm PO ONCE PRN; Protocol PRN Reason: Hypoglycemia Protocol Famotidine (Pepcid) 20 mg GT DAILY [facility] Last Admin: 06/16/18 10:05 Dose: 20 mg Glucagon (Glucagen Diagnostic Kit) 1 mg IM STAT PRN; Protocol PRN Reason: Hypoglycemia Protocol Ibuprofen (Motrin Oral Susp) 200 mg PO Q6H PRN PRN Reason: Fever >100.4 F Last Admin: 06/14/18 20:27 Dose: 200 mg Insulin Aspart (Novolog) 0 unit SC ACHS [facility]; Protocol Last Admin: 06/16/18 11:52 Dose: Not Given Insulin Glargine (Lantus) 40 unit SC HS [facility] Last Admin: 06/15/18 21:39 Dose: Not Given Insulin Human Isoph/Insulin Regular (Novolin 70/30 (70/30 Units/Ml) 10 Ml) 15 units SC BID [facility] Last Admin: 06/16/18 10:11 Dose: 15 units Lactulose (Enulose) 20 gm PO DAILY PRN PRN Reason: Constipation Last Admin: 06/16/18 10:04 Dose: 20 gm Metoprolol Tartrate (Lopressor) 75 mg PO BID [facility] Last Admin: 06/16/18 10:05 Dose: 75 mg Rosuvastatin Calcium (Crestor) 5 mg PO HS [facility] Last Admin: 06/15/18 21:41 Dose: 5 mg Senna/Docusate Sodium (Senokot S 50 Mg-8.6 Mg) 1 tab PO BID [facility] Last Admin: 06/16/18 10:05 Dose: 1 tab Vitamin A (Vitamin A & D Oint Ud Foilpak) 1 ea TOP BID PRN PRN Reason: Dry skin Last Admin: 06/13/18 10:47 Dose: 1 ea - Labs Labs: 06/16/18 06:05 06/16/18 06:05 PT 16.8 SECONDS (9.7-12.2) H 05/28/18 07:15 INR 1.5 05/28/18 07:15 APTT 34 SECONDS (21-34) 05/28/18 07:15 Attending/Attestation - Attestation I have personally seen and examined this patient.: Yes I have fully participated in the care of the patient.: Yes I have reviewed all pertinent clinical information, including history, physical exam and plan: Yes Notes (Text): seen and examined,doing well on trach collar.spoke to her son and sister at bedside' patient is more responsive we will request PT follow up and speech evaluation
[2018-06-12 08:45] LABS: ALB/GLOB RATIO 0.9 (1.0-2.1); ALBUMIN 3.3 g/dL (3.5-5.0); ALT/SGPT 33 U/L (9-52); AST/SGOT 31 U/L (14-36); BLOOD UREA NITROGEN 23 mg/dL (7-17); GFR NON-AFRICAN AMERICAN > 60
[2018-06-12] MEDS: (Novolin 70/30) NPH/Regular 70/30 Units/ml 10 ml vial SC SCH ×2 (10:16→18:40)
[2018-06-12] MEDS: Docusate-Senna 50 mg-8.6 mg Tab PO SCH ×2 (10:17→18:50)
[2018-06-12] MEDS: Collagenase 250 Units/gm Ointment(30 gm) TOP SCH (10:18)
[2018-06-12] MEDS: (Lantus) Insulin Glargine, Recombinant SC SCH (21:50)
--- NOTE | 2018-06-12 23:46 | CP.PCM.CON ---
History of Present Illness - History of Present Illness History of Present Illness: Patient seen and examined and is well known to our service. MIss Hodge is a 52 yr old woman who has suffered anoxic brain injury and is now following one step commands. Past Patient History - Tetanus Immunizations Tetanus Immunization: Unknown - Past Medical History & Family History Past Medical History?: No - Past Social History Smoking Status: Never Smoked - MUSCULOSKELETAL/RHEUMATOLOGICAL Hx Falls: Yes - PSYCHIATRIC Hx Substance Use: (UNKNOWN) - SURGICAL HISTORY Hx Surgeries: (UNOBTAINABLE) - ANESTHESIA Hx Anesthesia: (UNOBTAINABLE) Meds Allergies/Adverse Reactions: Allergies Allergy/AdvReac Type Severity Reaction Status Date / Time No Known Allergies Allergy Verified 05/05/18 11:51 - Medications Medications: Current Medications Acetaminophen (Tylenol 650 Mg Supp) 650 mg ME Q6 PRN PRN Reason: Fever >100.4 F Last Admin: 06/03/18 00:22 Dose: 650 mg Acetylcysteine (Acetylcysteine 20%) 4 ml INH RQ4 BETH Last Admin: 06/12/18 19:32 Dose: 4 ml Albuterol/Ipratropium (Duoneb 3 Mg/0.5 Mg (3 Ml) Ud) 3 ml INH RQ4 BETH Last Admin: 06/12/18 19:32 Dose: 3 ml Amlodipine Besylate (Norvasc) 10 mg PO DAILY [facility] Last Admin: 06/12/18 10:17 Dose: 10 mg Aspirin (Aspirin Chewable) 81 mg PO DAILY [facility] Last Admin: 06/12/18 10:17 Dose: 81 mg Bisacodyl (Dulcolax) 10 mg ME TID PRN PRN Reason: Constipation Last Admin: 05/10/18 09:45 Dose: 10 mg Clopidogrel Bisulfate (Plavix) 75 mg PO DAILY [facility] Last Admin: 05/22/18 10:07 Dose: 75 mg Collagenase (Santyl) 1 gm TOP DAILY [facility] Last Admin: 06/12/18 10:18 Dose: Not Given Dextrose (Dextrose 50% Inj) 0 ml IV STAT PRN; Protocol PRN Reason: Hypoglycemia Protocol Dextrose (Glutose 15) 15 gm PO ONCE PRN; Protocol PRN Reason: Hypoglycemia Protocol Famotidine (Pepcid) 20 mg GT DAILY [facility] Last Admin: 06/12/18 10:17 Dose: 20 mg Glucagon (Glucagen Diagnostic Kit) 1 mg IM STAT PRN; Protocol PRN Reason: Hypoglycemia Protocol Heparin Sodium (Porcine) (Heparin) 5,000 units SC Q8 [facility] Last Admin: 06/12/18 21:48 Dose: 5,000 units Ibuprofen (Motrin Oral Susp) 200 mg PO Q6H PRN PRN Reason: Fever >100.4 F Last Admin: 06/04/18 16:14 Dose: 200 mg Insulin Aspart (Novolog) 0 unit SC ACHS [facility]; Protocol Last Admin: 06/12/18 21:47 Dose: Not Given Insulin Glargine (Lantus) 40 unit SC [facility] Last Admin: 06/12/18 21:50 Dose: 40 units Insulin Human Isoph/Insulin Regular (Novolin 70/30 (70/30 Units/Ml) 10 Ml) 15 units SC BID [facility] Last Admin: 06/12/18 18:40 Dose: 15 units Labetalol HCl (Trandate) 10 mg IVP Q4H PRN PRN Reason: Systolic Blood Pressure Last Admin: 05/16/18 11:45 Dose: 10 mg Lactulose (Enulose) 20 gm PO DAILY PRN PRN Reason: Constipation Last Admin: 05/25/18 16:55 Dose: 20 gm Metoprolol Tartrate (Lopressor) 75 mg PO BID [facility] Last Admin: 06/12/18 18:50 Dose: 75 mg Rosuvastatin Calcium (Crestor) 5 mg PO [facility] Last Admin: 06/12/18 21:48 Dose: 5 mg Senna/Docusate Sodium (Senokot S 50 Mg-8.6 Mg) 1 tab PO BID [facility] Last Admin: 06/12/18 18:50 Dose: 1 tab Vitamin A (Vitamin A & D Oint Ud Foilpak) 1 ea TOP BID PRN PRN Reason: Dry skin Last Admin: 05/30/18 10:24 Dose: 1 ea Results - Vital Signs Recent Vital Signs: Last Vital Signs Temp 98.3 F 06/12/18 16:00 Pulse 69 06/12/18 16:00 Resp 20 06/12/18 16:00 BP 134/68 06/12/18 18:50 Pulse Ox 100 06/12/18 16:00 - Labs Result Diagrams: 06/12/18 07:52 06/12/18 07:52 Labs: Laboratory Results - last 24 hr 06/12/18 06/12/18 06/12/18 07:31 07:52 07:52 WBC 7.5 RBC 3.25 L Hgb 9.0 L Hct 27.3 L MCV 84.1 MCH 27.8 MCHC 33.1 RDW 17.1 H Plt Count 316 MPV 11.2 Neut % (Auto) 55.7 Lymph % (Auto) 31.7 [place] % (Auto) 8.9 Eos % (Auto) 3.2 Baso % (Auto) 0.5 Neut # (Auto) 4.2 Lymph # (Auto) 2.4 [place] # (Auto) 0.7 Eos # (Auto) 0.2 Baso # (Auto) 0.0 Sodium 141 Potassium 3.8 Chloride 107 Carbon Dioxide 26 Anion Gap 11 BUN 23 H Creatinine 0.7 Est GFR ( Amer) > 60 Est GFR (Non-Af Amer) > 60 POC Glucose (mg/dL) 186 H Random Glucose 195 H Calcium 9.0 Phosphorus 3.8 Magnesium 1.7 Total Bilirubin 0.3 AST 31 ALT 33 Alkaline Phosphatase 170 H Total Protein 7.0 Albumin 3.3 L Globulin 3.8 Albumin/Globulin Ratio 0.9 L 06/12/18 06/12/18 06/12/18 10:14 11:40 16:14 WBC RBC Hgb Hct MCV MCH MCHC RDW Plt Count MPV Neut % (Auto) Lymph % (Auto) [place] % (Auto) Eos % (Auto) Baso % (Auto) Neut # (Auto) Lymph # (Auto) [place] # (Auto) Eos # (Auto) Baso # (Auto) Sodium Potassium Chloride Carbon Dioxide Anion Gap BUN Creatinine Est GFR ( Amer) Est GFR (Non-Af Amer) POC Glucose (mg/dL) 207 H 161 H 90 Random Glucose Calcium Phosphorus Magnesium Total Bilirubin AST ALT Alkaline Phosphatase Total Protein Albumin Globulin Albumin/Globulin Ratio 06/12/18 21:32 WBC RBC Hgb Hct MCV MCH MCHC RDW Plt Count MPV Neut % (Auto) Lymph % (Auto) [place] % (Auto) Eos % (Auto) Baso % (Auto) Neut # (Auto) Lymph # (Auto) [place] # (Auto) Eos # (Auto) Baso # (Auto) Sodium Potassium Chloride Carbon Dioxide Anion Gap BUN Creatinine Est GFR ( Amer) Est GFR (Non-Af Amer) POC Glucose (mg/dL) 138 H Random Glucose Calcium Phosphorus Magnesium Total Bilirubin AST ALT Alkaline Phosphatase Total Protein Albumin Globulin Albumin/Globulin Ratio
[2018-06-13] MEDS: Albuterol-Ipratrop 3 mg / 0.5 (3 ml) UD INH SCH ×6 (00:40→19:15)
[2018-06-13] MEDS: Acetylcysteine 20% Inhal Soln (4ml) INH SCH ×6 (00:40→19:15)
--- NOTE | 2018-06-13 03:37 | CP.PCM.PN ---
<Rios Mc - Last Filed: 06/13/18 03:44> Subjective - Date & Time of Evaluation Date of Evaluation: 06/13/18 Time of Evaluation: 03:35 - Subjective Subjective: PGY 1 Medicine progress note for hospitalist Patient seen and examined at beside. No acute events reported overnight. Pt is resting comfortably. Pt is able to follow one step commands such as raising hands and legs against my resistence. She is able to answer my yes or no questions with head nodding, and occasional verbal response in low voice. She has a trach collar on. She moves all extremities spontaneously. She denies any pain at this time. Objective - Vital Signs/Intake and Output Vital Signs (last 24 hours): Temp Pulse Resp BP Pulse Ox 97.7 F 61 20 117/64 100 06/13/18 00:00 06/13/18 00:00 06/13/18 00:00 06/13/18 00:00 06/13/18 00:00 Intake and Output: 06/12/18 06/13/18 18:59 06:59 Intake Total 600 600 Output Total 500 500 Balance 100 100 - Medications Medications: Current Medications Acetaminophen (Tylenol 650 Mg Supp) 650 mg SC Q6 PRN PRN Reason: Fever >100.4 F Last Admin: 06/03/18 00:22 Dose: 650 mg Acetylcysteine (Acetylcysteine 20%) 4 ml INH RQ4 BETH Last Admin: 06/13/18 03:19 Dose: 4 ml Albuterol/Ipratropium (Duoneb 3 Mg/0.5 Mg (3 Ml) Ud) 3 ml INH RQ4 BETH Last Admin: 06/13/18 03:19 Dose: 3 ml Amlodipine Besylate (Norvasc) 10 mg PO DAILY [facility] Last Admin: 06/12/18 10:17 Dose: 10 mg Aspirin (Aspirin Chewable) 81 mg PO DAILY [facility] Last Admin: 06/12/18 10:17 Dose: 81 mg Bisacodyl (Dulcolax) 10 mg SC TID PRN PRN Reason: Constipation Last Admin: 05/10/18 09:45 Dose: 10 mg Clopidogrel Bisulfate (Plavix) 75 mg PO DAILY [facility] Last Admin: 05/22/18 10:07 Dose: 75 mg Collagenase (Santyl) 1 gm TOP DAILY [facility] Last Admin: 06/12/18 10:18 Dose: Not Given Dextrose (Dextrose 50% Inj) 0 ml IV STAT PRN; Protocol PRN Reason: Hypoglycemia Protocol Dextrose (Glutose 15) 15 gm PO ONCE PRN; Protocol PRN Reason: Hypoglycemia Protocol Famotidine (Pepcid) 20 mg GT DAILY [facility] Last Admin: 06/12/18 10:17 Dose: 20 mg Glucagon (Glucagen Diagnostic Kit) 1 mg IM STAT PRN; Protocol PRN Reason: Hypoglycemia Protocol Heparin Sodium (Porcine) (Heparin) 5,000 units SC Q8 [facility] Last Admin: 06/12/18 21:48 Dose: 5,000 units Ibuprofen (Motrin Oral Susp) 200 mg PO Q6H PRN PRN Reason: Fever >100.4 F Last Admin: 06/13/18 01:02 Dose: 200 mg Insulin Aspart (Novolog) 0 unit SC [facility]; Protocol Last Admin: 06/12/18 21:47 Dose: Not Given Insulin Glargine (Lantus) 40 unit SC [facility] Last Admin: 06/12/18 21:50 Dose: 40 units Insulin Human Isoph/Insulin Regular (Novolin 70/30 (70/30 Units/Ml) 10 Ml) 15 units SC BID [facility] Last Admin: 06/12/18 18:40 Dose: 15 units Labetalol HCl (Trandate) 10 mg IVP Q4H PRN PRN Reason: Systolic Blood Pressure Last Admin: 05/16/18 11:45 Dose: 10 mg Lactulose (Enulose) 20 gm PO DAILY PRN PRN Reason: Constipation Last Admin: 05/25/18 16:55 Dose: 20 gm Metoprolol Tartrate (Lopressor) 75 mg PO BID [facility] Last Admin: 06/12/18 18:50 Dose: 75 mg Rosuvastatin Calcium (Crestor) 5 mg PO HS [facility] Last Admin: 06/12/18 21:48 Dose: 5 mg Senna/Docusate Sodium (Senokot S 50 Mg-8.6 Mg) 1 tab PO BID [facility] Last Admin: 06/12/18 18:50 Dose: 1 tab Vitamin A (Vitamin A & D Oint Ud Foilpak) 1 ea TOP BID PRN PRN Reason: Dry skin Last Admin: 05/30/18 10:24 Dose: 1 ea - Labs Labs: 06/12/18 07:52 06/12/18 07:52 PT 16.8 SECONDS (9.7-12.2) H 05/28/18 07:15 INR 1.5 05/28/18 07:15 APTT 34 SECONDS (21-34) 05/28/18 07:15 - Additional Findings Additional findings: - Constitutional Appears: Non-toxic, No Acute Distress - Head Exam Head Exam: NORMAL INSPECTION - Eye Exam Eye Exam: Normal appearance Pupil Exam: NORMAL ACCOMODATION - ENT Exam ENT Exam: Mucous Membranes Moist - Respiratory Exam Respiratory Exam: NORMAL BREATHING PATTERN Additional comments: currently on trach collar, with humidified oxygen - Cardiovascular Exam Cardiovascular Exam: +S1, +S2 - GI/Abdominal Exam GI & Abdominal Exam: Soft, Normal Bowel Sounds Additional comments: peg tube in place, no signs of infection or bleeding; c/d/i - Extremities Exam Extremities Exam: absent: Pedal Edema Additional comments: UE contracted at bilateral wrists, 3/5 muscle strength LE 2/5 strength, R > L - Neurological Exam Neurological Exam: Alert, Awake Additional comments: GCS 14 Spontaneous eye movement, converses in soft voice with yes or no responses to questions, obeys commands - Psychiatric Exam Psychiatric exam: Normal Mood - Skin Skin Exam: Dry, Intact, Normal Color, Warm Assessment and Plan - Assessment and Plan (Free Text) Assessment: 57 yr F w/ no known medical history presented TO ED unresponsive, possible suicidal vs homicidal attempt; had extensive ICU stay requiring intubation, treatment for supsis, believe to have anoxic brain injury. Recently pt was able to be weaned of ventilator to tach collar, patient response to commands, opening eyes, and answers yes or no questions in soft low voice (possibly due to trach). Anoxic Brain Injury - Initial Neurology consulted, Dr. Duff/Guilherme - rpt EEG: severe non specific diffuse disturbances in cortical activity, brown matter dysfunction - MRI - MRI Brain: subacute favored over acute cerebral hypoxic insult with minimal involvement of the lower haris and the cerebellar hemispheres - re-consult for neurology; no recs at this point - GCS is 11; obeys commands nonverbal, eyes open spontaneously - tube feedings vital 1.2 initial 20ml/hr w/ goal to increase to 50 ml/hr, currently 50ml/hr - F/u PT recs - F/u speech eval recs Respiratory Failure Resolved - Due to Asphyxiation/Possible Suicide Attempt - off ventilator 06/09, on trach collar - per Dr. Brennan, keep on trach collar - Mucomyst Q4 - Duonebs Q4 - continue to monitor Left wrist Ulcer - ulcer on left wrist w/ eschar - surgery recs - bedside debridement on / - Santyl daily DM - Blood sugars improved to 100s to 200s - Lantus 40 Units SC - Novolin 70/30 15 units BID - Accuchecks ACHS - ISS high dose - will continue current regimen as patient in GT feedings HTN - Metoprolol Tartrate 75 mg PO BID - Norvasc 5 mg PO 1x/day - Labetalol 10 mg IV Q4H PRN SBP > 140 Transaminitis Resolving - Likely shock liver - Follow LFTs Thrombocytopenia Resolved - platelet drop from 192s to 102s, now to 133s - HIT vs drug induced thrombocytopenia vs ? - Azithromycin & Ceftriaxone started on 06/03, following day drop in platelets - 4T's score for possible HIT: score of 3 -> < 1% probability of HIT - HIT unlikely - Will monitor and D/C Abx Fever spikes Leukocytosis Resolved - WBCs resolved, afebrile > 72 hrs - Ice packs, cooling blanket PRN - Motrin 200 mg Q6H PRN, Tylenol 650 mg Q6H PRN - Started Rocephin 1g Q12 & Azithromycin 500 mg Q24H (started 06/03) - D'C'ed due to possible drug induced thrombocytopenia - sputum cultures from 05/25 - yeast - Per Dr. Mcgill - diflucan 100 mg GT X7 days - D/c meropenum 1g Q8H & flaggyl 500mg Q8H (total 13 days of treatment) - likely neurological - will continue to monitor Acute Renal Injury Resolved - BUN/ Cr improving (76/4.5 -> 19/1.0) - likely due to dehydration - Start D5W @150 ml/hr - D/C'ed - increase insulin - see below NSTEMI Resolved - Elevated troponin - has normalized - ASA 81 mg PO daily (restarted 05/25) - Plavix 75mg PO daily (held - given drop in Hb) - hold Crestor 5 mg PO daily - Cardiology consulted, Dr Gay PPx Heparin 5,000 Units SC Q8H (restarted 05/25) Pepcid 20mg Q12 Aspiration precautions Seizure precautions suction PRN Turn and reposition q2h PT/OT speech eval Dispo: SW reports that pt may have insurance from who is [place] citizen, will look for placement. <Emmett Negrete - Last Filed: 06/16/18 09:13> Objective - Vital Signs/Intake and Output Vital Signs (last 24 hours): Temp Pulse Resp BP Pulse Ox 98.4 F 97 H 20 144/74 99 06/16/18 08:10 06/16/18 08:10 06/16/18 08:10 06/16/18 08:10 06/16/18 08:10 Intake and Output: 06/16/18 06/16/18 06:59 18:59 Intake Total 1400 Output Total 600 Balance 800 - Medications Medications: Current Medications Acetylcysteine (Acetylcysteine 20%) 4 ml INH RQ4 BETH Last Admin: 06/16/18 07:25 Dose: 4 ml Albuterol/Ipratropium (Duoneb 3 Mg/0.5 Mg (3 Ml) Ud) 3 ml INH RQ4 BETH Last Admin: 06/16/18 07:25 Dose: 3 ml Amlodipine Besylate (Norvasc) 10 mg PO DAILY [facility] Last Admin: 06/15/18 09:47 Dose: 10 mg Aspirin (Aspirin Chewable) 81 mg PO DAILY [facility] Last Admin: 06/15/18 09:47 Dose: 81 mg Bisacodyl (Dulcolax) 10 mg SC TID PRN PRN Reason: Constipation Last Admin: 05/10/18 09:45 Dose: 10 mg Clopidogrel Bisulfate (Plavix) 75 mg PO DAILY [facility] Last Admin: 05/22/18 10:07 Dose: 75 mg Dextrose (Dextrose 50% Inj) 0 ml IV STAT PRN; Protocol PRN Reason: Hypoglycemia Protocol Dextrose (Glutose 15) 15 gm PO ONCE PRN; Protocol PRN Reason: Hypoglycemia Protocol Famotidine (Pepcid) 20 mg GT DAILY [facility] Last Admin: 06/15/18 09:47 Dose: 20 mg Glucagon (Glucagen Diagnostic Kit) 1 mg IM STAT PRN; Protocol PRN Reason: Hypoglycemia Protocol Ibuprofen (Motrin Oral Susp) 200 mg PO Q6H PRN PRN Reason: Fever >100.4 F Last Admin: 06/14/18 20:27 Dose: 200 mg Insulin Aspart (Novolog) 0 unit SC ACHS [facility]; Protocol Last Admin: 06/16/18 07:56 Dose: 6 units Insulin Glargine (Lantus) 40 unit SC [facility] Last Admin: 06/15/18 21:39 Dose: Not Given Insulin Human Isoph/Insulin Regular (Novolin 70/30 (70/30 Units/Ml) 10 Ml) 15 units SC BID [facility] Last Admin: 06/15/18 17:02 Dose: Not Given Labetalol HCl (Trandate) 10 mg IVP Q4H PRN PRN Reason: Systolic Blood Pressure Last Admin: 05/16/18 11:45 Dose: 10 mg Lactulose (Enulose) 20 gm PO DAILY PRN PRN Reason: Constipation Last Admin: 05/25/18 16:55 Dose: 20 gm Metoprolol Tartrate (Lopressor) 75 mg PO BID [facility] Last Admin: 06/15/18 17:36 Dose: 75 mg Rosuvastatin Calcium (Crestor) 5 mg PO [facility] Last Admin: 06/15/18 21:41 Dose: 5 mg Senna/Docusate Sodium (Senokot S 50 Mg-8.6 Mg) 1 tab PO BID [facility] Last Admin: 06/15/18 17:36 Dose: 1 tab Vitamin A (Vitamin A & D Oint Ud Foilpak) 1 ea TOP BID PRN PRN Reason: Dry skin Last Admin: 06/13/18 10:47 Dose: 1 ea - Labs Labs: 06/16/18 06:05 06/16/18 06:05 PT 16.8 SECONDS (9.7-12.2) H 05/28/18 07:15 INR 1.5 05/28/18 07:15 APTT 34 SECONDS (21-34) 05/28/18 07:15 Attending/Attestation - Attestation I have personally seen and examined this patient.: Yes I have fully participated in the care of the patient.: Yes I have reviewed all pertinent clinical information, including history, physical exam and plan: Yes Notes (Text): Seen and examined Patient is awake and trying to follow directions and doig ok on trach collar 06/16/18 09:12
[2018-06-13] MEDS: (Novolog) Insulin Aspart, Recombinant 100 u/ml 10 ml vial SC SCH ×4 (08:20→21:36)
[2018-06-13 08:23] LABS: BASO # 0.1 K/uL (0.0-0.2); BASO % 0.7 % (0.0-2.0); EOS # 0.1 K/uL (0.0-0.7); EOS % 1.1 % (0.0-4.0); HEMOGLOBIN 9.9 g/dL (11.0-16.0); LYMPH % 19.3 % (20.0-40.0); MEAN CELL VOLUME 85.9 fL (81.0-99.0); MEAN CORPUSCULAR HEMOGLOBIN 28.3 pg (27.0-31.0); MEAN PLATELET VOLUME 11.7 fL (7.2-11.7); MONO # 0.8 K/uL (0.0-0.8); MONO % 7.6 % (0.0-10.0); NEUT # 7.2 K/uL (1.8-7.0); NEUT % 71.3 % (50.0-75.0); NRBC % 0.1 % (0.0-2.0); RBC 3.49 Mil/uL (3.80-5.20); WHITE BLOOD COUNT 10.1 K/uL (4.8-10.8)
[2018-06-13 08:42] LABS: ALB/GLOB RATIO 0.9 (1.0-2.1); ALBUMIN 3.5 g/dL (3.5-5.0); ALT/SGPT 36 U/L (9-52); AST/SGOT 40 U/L (14-36); BLOOD UREA NITROGEN 24 mg/dL (7-17); CALCIUM 9.5 mg/dl (8.6-10.4); GFR NON-AFRICAN AMERICAN > 60
[2018-06-13] MEDS: Vitamins A & D Oint UD Foilpak TOP PRN (10:47)
[2018-06-13] MEDS: (Novolin 70/30) NPH/Regular 70/30 Units/ml 10 ml vial SC SCH ×2 (10:47→17:37)
[2018-06-13] MEDS: Docusate-Senna 50 mg-8.6 mg Tab PO SCH ×2 (10:50→17:31)
[2018-06-13] MEDS: Collagenase 250 Units/gm Ointment(30 gm) TOP SCH (10:51)
[2018-06-13] MEDS: (Lantus) Insulin Glargine, Recombinant SC SCH (21:41)
[2018-06-14] MEDS: Albuterol-Ipratrop 3 mg / 0.5 (3 ml) UD INH SCH ×6 (00:38→20:00)
[2018-06-14] MEDS: Acetylcysteine 20% Inhal Soln (4ml) INH SCH ×6 (00:38→20:00)
[2018-06-14 07:10] LABS: BASO % 0.9 % (0.0-2.0); EOS # 0.2 K/uL (0.0-0.7); EOS % 3.4 % (0.0-4.0); HEMOGLOBIN 9.2 g/dL (11.0-16.0); LYMPH # 1.8 K/uL (1.0-4.3); LYMPH % 31.2 % (20.0-40.0); MEAN CELL VOLUME 85.9 fL (81.0-99.0); MEAN CORPUSCULAR HEMOGLOBIN 28.1 pg (27.0-31.0); MEAN CORPUSCULAR HGB CONC 32.7 g/dL (33.0-37.0); MEAN PLATELET VOLUME 10.9 fL (7.2-11.7); MONO # 0.4 K/uL (0.0-0.8); NEUT # 3.2 K/uL (1.8-7.0); NEUT % 56.5 % (50.0-75.0); RBC 3.29 Mil/uL (3.80-5.20); RED CELL DISTRIBUTION WIDTH 17.5 % (11.5-14.5); WHITE BLOOD COUNT 5.6 K/uL (4.8-10.8)
[2018-06-14 07:38] LABS: ALB/GLOB RATIO 0.9 (1.0-2.1); ALBUMIN 3.2 g/dL (3.5-5.0); ALT/SGPT 36 U/L (9-52); AST/SGOT 36 U/L (14-36); BLOOD UREA NITROGEN 24 mg/dL (7-17); CALCIUM 8.9 mg/dl (8.6-10.4); GFR NON-AFRICAN AMERICAN > 60
[2018-06-14] MEDS: (Novolog) Insulin Aspart, Recombinant 100 u/ml 10 ml vial SC SCH ×4 (07:40→21:53)
--- NOTE | 2018-06-14 08:38 | CP.PCM.PN ---
<Michael Diaz - Last Filed: 06/14/18 11:34> Subjective - Date & Time of Evaluation Date of Evaluation: 06/14/18 Time of Evaluation: 08:15 - Subjective Subjective: PGY1 Medicine Progress Note for Hospitalist Dr. Sheikh. patient seen and examined at bedside. No overnight events reported. Patient lying in bed in no acute distress. Patient is moving extremities freely with no issues. Patient unable to verbalize any commands; however seems to answer questions with yes/no format by nodding head. Patient nods no for any pain, difficulty breathing. Remaining ROS unable obtain to the medical condition. Objective - Vital Signs/Intake and Output Vital Signs (last 24 hours): Temp Pulse Resp BP Pulse Ox 98.2 F 61 20 115/65 100 06/14/18 00:00 06/14/18 00:00 06/14/18 00:00 06/14/18 00:00 06/14/18 00:00 Intake and Output: 06/14/18 06/14/18 06:59 18:59 Intake Total 1200 Output Total 750 Balance 450 - Medications Medications: Current Medications Acetylcysteine (Acetylcysteine 20%) 4 ml INH RQ4 [facility] Last Admin: 06/14/18 03:51 Dose: 4 ml Albuterol/Ipratropium (Duoneb 3 Mg/0.5 Mg (3 Ml) Ud) 3 ml INH RQ4 [facility] Last Admin: 06/14/18 03:50 Dose: 3 ml Amlodipine Besylate (Norvasc) 10 mg PO DAILY [facility] Last Admin: 06/13/18 10:49 Dose: 10 mg Aspirin (Aspirin Chewable) 81 mg PO DAILY [facility] Last Admin: 06/13/18 10:48 Dose: 81 mg Bisacodyl (Dulcolax) 10 mg CA TID PRN PRN Reason: Constipation Last Admin: 05/10/18 09:45 Dose: 10 mg Clopidogrel Bisulfate (Plavix) 75 mg PO DAILY [facility] Last Admin: 05/22/18 10:07 Dose: 75 mg Collagenase (Santyl) 1 gm TOP DAILY [facility] Last Admin: 06/13/18 10:51 Dose: Not Given Dextrose (Dextrose 50% Inj) 0 ml IV STAT PRN; Protocol PRN Reason: Hypoglycemia Protocol Dextrose (Glutose 15) 15 gm PO ONCE PRN; Protocol PRN Reason: Hypoglycemia Protocol Famotidine (Pepcid) 20 mg GT DAILY [facility] Last Admin: 06/13/18 10:49 Dose: 20 mg Glucagon (Glucagen Diagnostic Kit) 1 mg IM STAT PRN; Protocol PRN Reason: Hypoglycemia Protocol Ibuprofen (Motrin Oral Susp) 200 mg PO Q6H PRN PRN Reason: Fever >100.4 F Last Admin: 06/13/18 10:49 Dose: 200 mg Insulin Aspart (Novolog) 0 unit SC ACHS [facility]; Protocol Last Admin: 06/14/18 07:40 Dose: 2 units Insulin Glargine (Lantus) 40 unit SC [facility] Last Admin: 06/13/18 21:41 Dose: 40 units Insulin Human Isoph/Insulin Regular (Novolin 70/30 (70/30 Units/Ml) 10 Ml) 15 units SC BID [facility] Last Admin: 06/13/18 17:37 Dose: 15 units Labetalol HCl (Trandate) 10 mg IVP Q4H PRN PRN Reason: Systolic Blood Pressure Last Admin: 05/16/18 11:45 Dose: 10 mg Lactulose (Enulose) 20 gm PO DAILY PRN PRN Reason: Constipation Last Admin: 05/25/18 16:55 Dose: 20 gm Metoprolol Tartrate (Lopressor) 75 mg PO BID [facility] Last Admin: 06/13/18 18:50 Dose: 75 mg Rosuvastatin Calcium (Crestor) 5 mg PO [facility] Last Admin: 06/13/18 21:38 Dose: 5 mg Senna/Docusate Sodium (Senokot S 50 Mg-8.6 Mg) 1 tab PO BID [facility] Last Admin: 06/13/18 17:31 Dose: 1 tab Vitamin A (Vitamin A & D Oint Ud Foilpak) 1 ea TOP BID PRN PRN Reason: Dry skin Last Admin: 06/13/18 10:47 Dose: 1 ea - Labs Labs: 06/14/18 05:45 06/14/18 05:45 PT 16.8 SECONDS (9.7-12.2) H 05/28/18 07:15 INR 1.5 05/28/18 07:15 APTT 34 SECONDS (21-34) 05/28/18 07:15 - Head Exam Head Exam: NORMAL INSPECTION, NORMOCEPHALIC - Eye Exam Eye Exam: Normal appearance Pupil Exam: NORMAL ACCOMODATION - Respiratory Exam Respiratory Exam: NORMAL BREATHING PATTERN. absent: Rhonchi, Wheezes Additional comments: currently on trach collar, with humidified oxygen - Cardiovascular Exam Cardiovascular Exam: +S1, +S2. absent: Murmur - GI/Abdominal Exam GI & Abdominal Exam: Soft, Normal Bowel Sounds. absent: Guarding, Hernia Additional comments: peg tube in place, no erythema present - Extremities Exam Extremities Exam: Full ROM, Normal Inspection. absent: Calf Tenderness, Pedal Edema - Back Exam Back Exam: absent: CVA tenderness (L), CVA tenderness (R) - Neurological Exam Neurological Exam: Alert, Awake Additional comments: UE contracted at wrist, 4/5 muscle strength LE 3/5 strength, today L >R GSC 12 incomprehensible sounds, spontaneous eye movement, obeys command - Psychiatric Exam Psychiatric exam: Normal Mood - Skin Skin Exam: Dry Assessment and Plan - Assessment and Plan (Free Text) Assessment: 57 yr F w/ no known medical history presented TO ED unresponsive, possible suicidal vs homicidal attempt; had extensive ICU stay requiring intubation, treatment for supsis, believe to have anoxic brain injury. Recently pt was able to be weaned of ventilator to tach collar, patient response to commands, opening eyes; will need extensive Physical therapy. Anoxic Brain Injury - Initial Neurology consulted, Dr. Duff/Guilherme - rpt EEG: severe non specific diffuse disturbances in cortical activity, brown matter dysfunction - MRI - MRI Brain: subacute favored over acute cerebral hypoxic insult with minimal involvement of the lower haris and the cerebellar hemispheres - re-consult for neurology; no recs at this point - GCS is 12; incomprehensible words, eyes open spontaneously - tube feedings vital 1.2 initial 20ml/hr w/ goal to increase to 50 ml/hr, currently 50ml/hr - F/u PT recs - F/u speech eval recs Respiratory Failure Resolved - Due to Asphyxiation/Possible Suicide Attempt - off ventilator 06/09, on trach collar - per Dr. Brennan, keep on trach collar - Mucomyst Q4 - Duonebs Q4 - continue to monitor Left wrist Ulcer - ulcer on left wrist w/ eschar - surgery recs - bedside debridement on 122/6 - Santyl daily DM - Blood sugars improved to 100s to 200s - Lantus 40 Units SC - Novolin 70/30 15 units BID - Accuchecks ACHS - ISS high dose - will continue current regimen as patient in GT feedings HTN - Metoprolol Tartrate 75 mg PO BID - Norvasc 5 mg PO 1x/day - Labetalol 10 mg IV Q4H PRN SBP > 140 Transaminitis Resolving - Likely shock liver - Follow LFTs Thrombocytopenia Resolved - platelet drop from 192s to 102s, now to 133s - HIT vs drug induced thrombocytopenia vs ? - Azithromycin & Ceftriaxone started on 06/03, following day drop in platelets - 4T's score for possible HIT: score of 3 -> < 1% probability of HIT - HIT unlikely - Will monitor and D/C Abx Fever spikes Leukocytosis Resolved - WBCs resolved, afebrile > 72 hrs - Ice packs, cooling blanket PRN - Motrin 200 mg Q6H PRN, Tylenol 650 mg Q6H PRN - Started Rocephin 1g Q12 & Azithromycin 500 mg Q24H (started 06/03) - D'C'ed due to possible drug induced thrombocytopenia - sputum cultures from 05/25 - yeast - Per Dr. Mcgill - diflucan 100 mg GT X7 days - D/c meropenum 1g Q8H & flaggyl 500mg Q8H (total 13 days of treatment) - likely neurological - will continue to monitor Acute Renal Injury Resolved - BUN/ Cr improving (76/4.5 -> 19/1.0) - likely due to dehydration - Start D5W @150 ml/hr - D/C'ed - increase insulin - see below Hypernatremia Resolved - Na+ 154 06/03 -> 146 06/04 - D5W @150ml/hr - d/fanta - increased insulin- see below plan NSTEMI Resolved - Elevated troponin - has normalized - ASA 81 mg PO daily (restarted 05/25) - Plavix 75mg PO daily (held - given drop in Hb) - hold Crestor 5 mg PO daily - Cardiology consulted, Dr Gay PPblas Heparin 5,000 Units SC Q8H (restarted 05/25) Pepcid 20mg Q12 Aspiration precautions Seizure precautions suction PRN Turn and reposition q2h PT/OT speech eval Dispo: SW reports that pt may have insurance from who is [place] citizen, will look for placement. <Yann Sheikh - Last Filed: 06/14/18 12:59> Objective - Vital Signs/Intake and Output Vital Signs (last 24 hours): Temp Pulse Resp BP Pulse Ox 98.6 F 79 20 116/71 99 06/14/18 12:52 06/14/18 12:52 06/14/18 12:52 06/14/18 12:52 06/14/18 12:52 Intake and Output: 06/14/18 06/14/18 06:59 18:59 Intake Total 1200 Output Total 750 Balance 450 - Medications Medications: Current Medications Acetylcysteine (Acetylcysteine 20%) 4 ml INH RQ4 [facility] Last Admin: 06/14/18 11:28 Dose: 4 ml Albuterol/Ipratropium (Duoneb 3 Mg/0.5 Mg (3 Ml) Ud) 3 ml INH RQ4 [facility] Last Admin: 06/14/18 11:28 Dose: 3 ml Amlodipine Besylate (Norvasc) 10 mg PO DAILY [facility] Last Admin: 06/14/18 09:55 Dose: 10 mg Aspirin (Aspirin Chewable) 81 mg PO DAILY [facility] Last Admin: 06/14/18 09:55 Dose: 81 mg Bisacodyl (Dulcolax) 10 mg CA TID PRN PRN Reason: Constipation Last Admin: 05/10/18 09:45 Dose: 10 mg Clopidogrel Bisulfate (Plavix) 75 mg PO DAILY [facility] Last Admin: 05/22/18 10:07 Dose: 75 mg Dextrose (Dextrose 50% Inj) 0 ml IV STAT PRN; Protocol PRN Reason: Hypoglycemia Protocol Dextrose (Glutose 15) 15 gm PO ONCE PRN; Protocol PRN Reason: Hypoglycemia Protocol Famotidine (Pepcid) 20 mg GT DAILY [facility] Last Admin: 06/14/18 09:55 Dose: 20 mg Glucagon (Glucagen Diagnostic Kit) 1 mg IM STAT PRN; Protocol PRN Reason: Hypoglycemia Protocol Ibuprofen (Motrin Oral Susp) 200 mg PO Q6H PRN PRN Reason: Fever >100.4 F Last Admin: 06/13/18 10:49 Dose: 200 mg Insulin Aspart (Novolog) 0 unit SC ACHS [facility]; Protocol Last Admin: 06/14/18 11:40 Dose: 2 units Insulin Glargine (Lantus) 40 unit SC HS [facility] Last Admin: 06/13/18 21:41 Dose: 40 units Insulin Human Isoph/Insulin Regular (Novolin 70/30 (70/30 Units/Ml) 10 Ml) 15 units SC BID [facility] Last Admin: 06/14/18 09:56 Dose: 15 units Labetalol HCl (Trandate) 10 mg IVP Q4H PRN PRN Reason: Systolic Blood Pressure Last Admin: 05/16/18 11:45 Dose: 10 mg Lactulose (Enulose) 20 gm PO DAILY PRN PRN Reason: Constipation Last Admin: 05/25/18 16:55 Dose: 20 gm Metoprolol Tartrate (Lopressor) 75 mg PO BID [facility] Last Admin: 06/14/18 09:54 Dose: 75 mg Rosuvastatin Calcium (Crestor) 5 mg PO HS [facility] Last Admin: 06/13/18 21:38 Dose: 5 mg Senna/Docusate Sodium (Senokot S 50 Mg-8.6 Mg) 1 tab PO BID [facility] Last Admin: 06/14/18 09:59 Dose: 1 tab Vitamin A (Vitamin A & D Oint Ud Foilpak) 1 ea TOP BID PRN PRN Reason: Dry skin Last Admin: 06/13/18 10:47 Dose: 1 ea - Labs Labs: 06/14/18 05:45 06/14/18 05:45 PT 16.8 SECONDS (9.7-12.2) H 05/28/18 07:15 INR 1.5 05/28/18 07:15 APTT 34 SECONDS (21-34) 05/28/18 07:15 Attending/Attestation - Attestation I have personally seen and examined this patient.: Yes I have fully participated in the care of the patient.: Yes I have reviewed all pertinent clinical information, including history, physical exam and plan: Yes Notes (Text): 06/14/18 12:56 Medical attending: Patient was seen and examined by me. Agree with the above note by the resident The patient was not in any acute distress when I came and saw with the medical residents. Family present She is following very simple one step commands including raising her arm and also trying to move her legs however with noticeable drifting This is a signifigant change from before Yann Sheikh
[2018-06-14] MEDS: (Novolin 70/30) NPH/Regular 70/30 Units/ml 10 ml vial SC SCH ×2 (09:56→18:03)
[2018-06-14] MEDS: Docusate-Senna 50 mg-8.6 mg Tab PO SCH ×2 (09:59→18:04)
[2018-06-14] MEDS: Collagenase 250 Units/gm Ointment(30 gm) TOP SCH (10:00)
[2018-06-14] MEDS: (Lantus) Insulin Glargine, Recombinant SC SCH (21:54)
[2018-06-15] MEDS: Acetylcysteine 20% Inhal Soln (4ml) INH SCH ×7 (00:48→23:59)
[2018-06-15] MEDS: Albuterol-Ipratrop 3 mg / 0.5 (3 ml) UD INH SCH ×7 (00:48→23:59)
[2018-06-15 06:27] LABS: BASO # 0.1 K/uL (0.0-0.2); BASO % 0.7 % (0.0-2.0); EOS # 0.1 K/uL (0.0-0.7); EOS % 1.6 % (0.0-4.0); HEMOGLOBIN 9.9 g/dL (11.0-16.0); LYMPH # 1.6 K/uL (1.0-4.3); LYMPH % 19.4 % (20.0-40.0); MEAN CELL VOLUME 85.1 fL (81.0-99.0); MEAN CORPUSCULAR HEMOGLOBIN 28.1 pg (27.0-31.0); MEAN PLATELET VOLUME 10.5 fL (7.2-11.7); MONO # 0.6 K/uL (0.0-0.8); MONO % 7.3 % (0.0-10.0); RBC 3.52 Mil/uL (3.80-5.20); RED CELL DISTRIBUTION WIDTH 17.5 % (11.5-14.5); WHITE BLOOD COUNT 8.5 K/uL (4.8-10.8)
--- NOTE | 2018-06-15 07:18 | CP.PCM.PN ---
<Michael Diaz - Last Filed: 06/15/18 13:43> Subjective - Date & Time of Evaluation Date of Evaluation: 06/15/18 Time of Evaluation: 08:00 - Subjective Subjective: PGY1 Medicine Progress Note for Hospitalist Dr. Sheikh. patient seen and examined at bedside. No overnight events reported. Patient lying in bed in no acute distress. Patient is moving extremities freely with no issues. Patient unable to verbalize any commands; however seems to answer questions with yes/no format by nodding head. Patient nods no for any pain, difficulty breathing. Remaining ROS unable obtain to the medical condition. Family states left wrist hand was in pain. Objective - Vital Signs/Intake and Output Vital Signs (last 24 hours): Temp Pulse Resp BP Pulse Ox 98 F 69 20 159/72 H 100 06/15/18 00:00 06/15/18 00:00 06/15/18 00:00 06/15/18 00:00 06/15/18 00:00 Intake and Output: 06/15/18 06/15/18 06:59 18:59 Intake Total 1150 Output Total 700 Balance 450 - Medications Medications: Current Medications Acetylcysteine (Acetylcysteine 20%) 4 ml INH RQ4 [facility] Last Admin: 06/15/18 03:53 Dose: 4 ml Albuterol/Ipratropium (Duoneb 3 Mg/0.5 Mg (3 Ml) Ud) 3 ml INH RQ4 [facility] Last Admin: 06/15/18 03:53 Dose: 3 ml Amlodipine Besylate (Norvasc) 10 mg PO DAILY [facility] Last Admin: 06/14/18 09:55 Dose: 10 mg Aspirin (Aspirin Chewable) 81 mg PO DAILY [facility] Last Admin: 06/14/18 09:55 Dose: 81 mg Bisacodyl (Dulcolax) 10 mg [place] TID PRN PRN Reason: Constipation Last Admin: 05/10/18 09:45 Dose: 10 mg Clopidogrel Bisulfate (Plavix) 75 mg PO DAILY [facility] Last Admin: 05/22/18 10:07 Dose: 75 mg Dextrose (Dextrose 50% Inj) 0 ml IV STAT PRN; Protocol PRN Reason: Hypoglycemia Protocol Dextrose (Glutose 15) 15 gm PO ONCE PRN; Protocol PRN Reason: Hypoglycemia Protocol Famotidine (Pepcid) 20 mg GT DAILY [facility] Last Admin: 06/14/18 09:55 Dose: 20 mg Glucagon (Glucagen Diagnostic Kit) 1 mg IM STAT PRN; Protocol PRN Reason: Hypoglycemia Protocol Ibuprofen (Motrin Oral Susp) 200 mg PO Q6H PRN PRN Reason: Fever >100.4 F Last Admin: 06/14/18 20:27 Dose: 200 mg Insulin Aspart (Novolog) 0 unit SC [facility]; Protocol Last Admin: 06/14/18 21:53 Dose: Not Given Insulin Glargine (Lantus) 40 unit SC [facility] Last Admin: 06/14/18 21:54 Dose: 40 units Insulin Human Isoph/Insulin Regular (Novolin 70/30 (70/30 Units/Ml) 10 Ml) 15 units SC BID [facility] Last Admin: 06/14/18 18:03 Dose: 15 units Labetalol HCl (Trandate) 10 mg IVP Q4H PRN PRN Reason: Systolic Blood Pressure Last Admin: 05/16/18 11:45 Dose: 10 mg Lactulose (Enulose) 20 gm PO DAILY PRN PRN Reason: Constipation Last Admin: 05/25/18 16:55 Dose: 20 gm Metoprolol Tartrate (Lopressor) 75 mg PO BID [facility] Last Admin: 06/14/18 18:54 Dose: Not Given Rosuvastatin Calcium (Crestor) 5 mg PO [facility] Last Admin: 06/14/18 21:48 Dose: 5 mg Senna/Docusate Sodium (Senokot S 50 Mg-8.6 Mg) 1 tab PO BID [facility] Last Admin: 06/14/18 18:04 Dose: 1 tab Vitamin A (Vitamin A & D Oint Ud Foilpak) 1 ea TOP BID PRN PRN Reason: Dry skin Last Admin: 06/13/18 10:47 Dose: 1 ea - Labs Labs: 06/15/18 06:18 06/14/18 05:45 PT 16.8 SECONDS (9.7-12.2) H 05/28/18 07:15 INR 1.5 05/28/18 07:15 APTT 34 SECONDS (21-34) 05/28/18 07:15 - Constitutional Appears: Non-toxic, No Acute Distress - Head Exam Head Exam: NORMAL INSPECTION - Eye Exam Eye Exam: Normal appearance - ENT Exam ENT Exam: Mucous Membranes Moist Additional comments: currently on trach collar, with humidified oxygen - Respiratory Exam Respiratory Exam: Clear to Ausculation Bilateral, NORMAL BREATHING PATTERN. absent: Rales, Rhonchi, Wheezes - Cardiovascular Exam Cardiovascular Exam: +S1, +S2. absent: Murmur - GI/Abdominal Exam GI & Abdominal Exam: Soft, Normal Bowel Sounds Additional comments: peg tube in place, no erythema present - Extremities Exam Extremities Exam: Full ROM, Normal Inspection. absent: Calf Tenderness, Pedal Edema Additional comments: Slight left wrist swelling - Back Exam Back Exam: absent: CVA tenderness (L), CVA tenderness (R) - Neurological Exam Neurological Exam: Alert, Awake Additional comments: UE contracted at wrist, 4/5 muscle strength LE 3/5 strength, today L >R GSC 12 incomprehensible sounds, spontaneous eye movement, obeys command - Psychiatric Exam Psychiatric exam: Normal Affect, Normal Mood - Skin Skin Exam: Dry, Intact, Normal Color, Warm Assessment and Plan - Assessment and Plan (Free Text) Assessment: 57 yr F w/ no known medical history presented TO ED unresponsive, possible suicidal vs homicidal attempt; had extensive ICU stay requiring intubation, treatment for supsis, believe to have anoxic brain injury. Recently pt was able to be weaned of ventilator to tach collar, patient response to commands, opening eyes; will need extensive Physical therapy. Anoxic Brain Injury - Initial Neurology consulted, Dr. Duff/Guilherme - rpt EEG: severe non specific diffuse disturbances in cortical activity, brown matter dysfunction - MRI - MRI Brain: subacute favored over acute cerebral hypoxic insult with minimal involvement of the lower haris and the cerebellar hemispheres - re-consult for neurology; no recs at this point - GCS is 12; incomprehensible words, eyes open spontaneously - tube feedings vital 1.2 initial 20ml/hr w/ goal to increase to 50 ml/hr, currently 50ml/hr - F/u PT recs - F/u speech/swallow eval Respiratory Failure Resolved - Due to Asphyxiation/Possible Suicide Attempt - off ventilator 06/09, on trach collar - per Dr. Brennan, keep on trach collar - Mucomyst Q4 - Duonebs Q4 - continue to monitor Left wrist Ulcer - ulcer on left wrist w/ eschar - surgery recs - bedside debridement on 122/6 - Santyl daily DM - Blood sugars improved to 100s to 200s - Lantus 40 Units SC - Novolin 70/30 15 units BID - Accuchecks ACHS - ISS high dose - will continue current regimen as patient in GT feedings HTN - Metoprolol Tartrate 75 mg PO BID - Norvasc 5 mg PO 1x/day - Labetalol 10 mg IV Q4H PRN SBP > 140 Transaminitis Resolving - Likely shock liver - Follow LFTs Thrombocytopenia Resolved - platelet drop from 192s to 102s, now to 133s - HIT vs drug induced thrombocytopenia vs ? - Azithromycin & Ceftriaxone started on 06/03, following day drop in platelets - 4T's score for possible HIT: score of 3 -> < 1% probability of HIT - HIT unlikely - Will monitor and D/C Abx Fever spikes Leukocytosis Resolved - WBCs resolved, afebrile > 72 hrs - Ice packs, cooling blanket PRN - Motrin 200 mg Q6H PRN, Tylenol 650 mg Q6H PRN - Started Rocephin 1g Q12 & Azithromycin 500 mg Q24H (started 06/03) - D'C'ed due to possible drug induced thrombocytopenia - sputum cultures from 05/25 - yeast - Per Dr. Mcgill - diflucan 100 mg GT X7 days - D/c meropenum 1g Q8H & flaggyl 500mg Q8H (total 13 days of treatment) - likely neurological - will continue to monitor Acute Renal Injury Resolved - BUN/ Cr improving (76/4.5 -> 19/1.0) - likely due to dehydration - Start D5W @150 ml/hr - D/C'ed - increase insulin - see below Hypernatremia Resolved - Na+ 154 06/03 -> 146 06/04 - D5W @150ml/hr - d/fanta - increased insulin- see below plan NSTEMI Resolved - Elevated troponin - has normalized - ASA 81 mg PO daily (restarted 05/25) - Plavix 75mg PO daily (held - given drop in Hb) - hold Crestor 5 mg PO daily - Cardiology consulted, Dr Gay PPx Heparin 5,000 Units SC Q8H (restarted 05/25) Pepcid 20mg Q12 Aspiration precautions Seizure precautions suction PRN Turn and reposition q2h PT/OT speech eval swallow eval Dispo: SW reports that pt may have insurance from who is [place] citizen, will look for placement. <Sheikh,Peter H - Last Filed: 06/15/18 14:52> Objective - Vital Signs/Intake and Output Vital Signs (last 24 hours): Temp Pulse Resp BP Pulse Ox 98.3 F 88 20 112/70 99 06/15/18 08:12 06/15/18 08:12 06/15/18 08:12 06/15/18 09:47 06/15/18 08:12 Intake and Output: 06/15/18 06/15/18 06:59 18:59 Intake Total 1150 600 Output Total 700 300 Balance 450 300 - Medications Medications: Current Medications Acetylcysteine (Acetylcysteine 20%) 4 ml INH RQ4 [facility] Last Admin: 06/15/18 11:20 Dose: 4 ml Albuterol/Ipratropium (Duoneb 3 Mg/0.5 Mg (3 Ml) Ud) 3 ml INH RQ4 [facility] Last Admin: 06/15/18 11:20 Dose: 3 ml Amlodipine Besylate (Norvasc) 10 mg PO DAILY [facility] Last Admin: 06/15/18 09:47 Dose: 10 mg Aspirin (Aspirin Chewable) 81 mg PO DAILY [facility] Last Admin: 06/15/18 09:47 Dose: 81 mg Bisacodyl (Dulcolax) 10 mg WA TID PRN PRN Reason: Constipation Last Admin: 05/10/18 09:45 Dose: 10 mg Clopidogrel Bisulfate (Plavix) 75 mg PO DAILY [facility] Last Admin: 05/22/18 10:07 Dose: 75 mg Dextrose (Dextrose 50% Inj) 0 ml IV STAT PRN; Protocol PRN Reason: Hypoglycemia Protocol Dextrose (Glutose 15) 15 gm PO ONCE PRN; Protocol PRN Reason: Hypoglycemia Protocol Famotidine (Pepcid) 20 mg GT DAILY [facility] Last Admin: 06/15/18 09:47 Dose: 20 mg Glucagon (Glucagen Diagnostic Kit) 1 mg IM STAT PRN; Protocol PRN Reason: Hypoglycemia Protocol Ibuprofen (Motrin Oral Susp) 200 mg PO Q6H PRN PRN Reason: Fever >100.4 F Last Admin: 06/14/18 20:27 Dose: 200 mg Insulin Aspart (Novolog) 0 unit SC ACHS [facility]; Protocol Last Admin: 06/15/18 11:23 Dose: Not Given Insulin Glargine (Lantus) 40 unit SC HS [facility] Last Admin: 06/14/18 21:54 Dose: 40 units Insulin Human Isoph/Insulin Regular (Novolin 70/30 (70/30 Units/Ml) 10 Ml) 15 units SC BID [facility] Last Admin: 06/15/18 09:48 Dose: 15 units Labetalol HCl (Trandate) 10 mg IVP Q4H PRN PRN Reason: Systolic Blood Pressure Last Admin: 05/16/18 11:45 Dose: 10 mg Lactulose (Enulose) 20 gm PO DAILY PRN PRN Reason: Constipation Last Admin: 05/25/18 16:55 Dose: 20 gm Metoprolol Tartrate (Lopressor) 75 mg PO BID [facility] Last Admin: 06/15/18 09:47 Dose: 75 mg Rosuvastatin Calcium (Crestor) 5 mg PO HS [facility] Last Admin: 06/14/18 21:48 Dose: 5 mg Senna/Docusate Sodium (Senokot S 50 Mg-8.6 Mg) 1 tab PO BID [facility] Last Admin: 06/15/18 09:47 Dose: 1 tab Vitamin A (Vitamin A & D Oint Ud Foilpak) 1 ea TOP BID PRN PRN Reason: Dry skin Last Admin: 06/13/18 10:47 Dose: 1 ea - Labs Labs: 06/15/18 06:18 06/15/18 06:18 PT 16.8 SECONDS (9.7-12.2) H 05/28/18 07:15 INR 1.5 05/28/18 07:15 APTT 34 SECONDS (21-34) 05/28/18 07:15 Attending/Attestation - Attestation I have personally seen and examined this patient.: Yes I have fully participated in the care of the patient.: Yes I have reviewed all pertinent clinical information, including history, physical exam and plan: Yes Notes (Text): 06/15/18 14:51 Medical attending: Patient was seen and examined by me. Agree with the above note by the resident The patient was not in any acute distress She, as mentioned previously, was able to follow very simple one step commands including attempting to raise her arms bilaterally She does respond to you by calling out her name really loud Now on trach collar Yann Sheikh
[2018-06-15 07:32] LABS: ALB/GLOB RATIO 0.9 (1.0-2.1); ALBUMIN 3.5 g/dL (3.5-5.0); ALT/SGPT 38 U/L (9-52); AST/SGOT 70 U/L (14-36); BLOOD UREA NITROGEN 23 mg/dL (7-17); CALCIUM 9.4 mg/dl (8.6-10.4); GFR NON-AFRICAN AMERICAN > 60
[2018-06-15] MEDS: (Novolog) Insulin Aspart, Recombinant 100 u/ml 10 ml vial SC SCH ×4 (08:33→21:20)
[2018-06-15] MEDS: Docusate-Senna 50 mg-8.6 mg Tab PO SCH ×2 (09:47→17:36)
[2018-06-15] MEDS: (Novolin 70/30) NPH/Regular 70/30 Units/ml 10 ml vial SC SCH ×2 (09:48→17:02)
[2018-06-15] MEDS ORDERED: Acetaminophen 650mg/20.3ml solution UD GT STA ×2 (12:46→20:15)
[2018-06-15] MEDS: (Lantus) Insulin Glargine, Recombinant SC SCH (21:39)
[2018-06-16] MEDS: Albuterol-Ipratrop 3 mg / 0.5 (3 ml) UD INH SCH ×5 (03:26→19:05)
[2018-06-16] MEDS: Acetylcysteine 20% Inhal Soln (4ml) INH SCH ×5 (03:26→19:05)
[2018-06-16 06:13] LABS: BASO # 0.2 K/uL (0.0-0.2); BASO % 1.9 % (0.0-2.0); EOS # 0.1 K/uL (0.0-0.7); EOS % 1.4 % (0.0-4.0); HEMOGLOBIN 10.3 g/dL (11.0-16.0); LYMPH % 24.3 % (20.0-40.0); MEAN CELL VOLUME 84.4 fL (81.0-99.0); MEAN CORPUSCULAR HEMOGLOBIN 27.6 pg (27.0-31.0); MEAN CORPUSCULAR HGB CONC 32.7 g/dL (33.0-37.0); MEAN PLATELET VOLUME 10.4 fL (7.2-11.7); MONO # 0.6 K/uL (0.0-0.8); MONO % 7.8 % (0.0-10.0); NEUT # 5.4 K/uL (1.8-7.0); NEUT % 64.6 % (50.0-75.0); RBC 3.72 Mil/uL (3.80-5.20); RED CELL DISTRIBUTION WIDTH 17.5 % (11.5-14.5); WHITE BLOOD COUNT 8.3 K/uL (4.8-10.8)
--- NOTE | 2018-06-16 07:11 | CP.PCM.PN ---
<Michael Diaz M - Last Filed: 06/16/18 12:33> Subjective - Date & Time of Evaluation Date of Evaluation: 06/16/18 Time of Evaluation: 07:40 - Subjective Subjective: PGY 1 Medicine Progress Note for Hospitalist Dr. Sheikh. Patient seen and examined at bedside. No overnight events reported. No overnight events reported. Patient lying in bed in no acute distress. Patient is moving extremities freely with no issues. Patient unable to verbalize any commands; however seems to answer questions with yes/no format by nodding head. Patient nods no for any pain, difficulty breathing. Remaining ROS unable obtain to the medical condition. Family states left wrist still has pain; however, patient nodes her head when asked about pain. Per PT, they are planning to have her stand with assistance today. Objective - Vital Signs/Intake and Output Vital Signs (last 24 hours): Temp Pulse Resp BP Pulse Ox 98.5 F 70 20 138/80 100 06/16/18 00:00 06/16/18 00:00 06/16/18 00:00 06/16/18 01:00 06/16/18 00:00 Intake and Output: 06/16/18 06/16/18 06:59 18:59 Intake Total 1400 Output Total 600 Balance 800 - Medications Medications: Current Medications Acetylcysteine (Acetylcysteine 20%) 4 ml INH RQ4 [facility] Last Admin: 06/16/18 03:26 Dose: 4 ml Albuterol/Ipratropium (Duoneb 3 Mg/0.5 Mg (3 Ml) Ud) 3 ml INH RQ4 [facility] Last Admin: 06/16/18 03:26 Dose: 3 ml Amlodipine Besylate (Norvasc) 10 mg PO DAILY [facility] Last Admin: 06/15/18 09:47 Dose: 10 mg Aspirin (Aspirin Chewable) 81 mg PO DAILY [facility] Last Admin: 06/15/18 09:47 Dose: 81 mg Bisacodyl (Dulcolax) 10 mg SD TID PRN PRN Reason: Constipation Last Admin: 05/10/18 09:45 Dose: 10 mg Clopidogrel Bisulfate (Plavix) 75 mg PO DAILY [facility] Last Admin: 05/22/18 10:07 Dose: 75 mg Dextrose (Dextrose 50% Inj) 0 ml IV STAT PRN; Protocol PRN Reason: Hypoglycemia Protocol Dextrose (Glutose 15) 15 gm PO ONCE PRN; Protocol PRN Reason: Hypoglycemia Protocol Famotidine (Pepcid) 20 mg GT DAILY [facility] Last Admin: 06/15/18 09:47 Dose: 20 mg Glucagon (Glucagen Diagnostic Kit) 1 mg IM STAT PRN; Protocol PRN Reason: Hypoglycemia Protocol Ibuprofen (Motrin Oral Susp) 200 mg PO Q6H PRN PRN Reason: Fever >100.4 F Last Admin: 06/14/18 20:27 Dose: 200 mg Insulin Aspart (Novolog) 0 unit SC [facility]; Protocol Last Admin: 06/15/18 21:20 Dose: Not Given Insulin Glargine (Lantus) 40 unit SC [facility] Last Admin: 06/15/18 21:39 Dose: Not Given Insulin Human Isoph/Insulin Regular (Novolin 70/30 (70/30 Units/Ml) 10 Ml) 15 units SC BID [facility] Last Admin: 06/15/18 17:02 Dose: Not Given Labetalol HCl (Trandate) 10 mg IVP Q4H PRN PRN Reason: Systolic Blood Pressure Last Admin: 05/16/18 11:45 Dose: 10 mg Lactulose (Enulose) 20 gm PO DAILY PRN PRN Reason: Constipation Last Admin: 05/25/18 16:55 Dose: 20 gm Metoprolol Tartrate (Lopressor) 75 mg PO BID [facility] Last Admin: 06/15/18 17:36 Dose: 75 mg Rosuvastatin Calcium (Crestor) 5 mg PO HS [facility] Last Admin: 06/15/18 21:41 Dose: 5 mg Senna/Docusate Sodium (Senokot S 50 Mg-8.6 Mg) 1 tab PO BID [facility] Last Admin: 06/15/18 17:36 Dose: 1 tab Vitamin A (Vitamin A & D Oint Ud Foilpak) 1 ea TOP BID PRN PRN Reason: Dry skin Last Admin: 06/13/18 10:47 Dose: 1 ea - Labs Labs: 06/16/18 06:05 06/15/18 06:18 PT 16.8 SECONDS (9.7-12.2) H 05/28/18 07:15 INR 1.5 05/28/18 07:15 APTT 34 SECONDS (21-34) 05/28/18 07:15 - Constitutional Appears: Non-toxic, No Acute Distress - Head Exam Head Exam: NORMAL INSPECTION - Eye Exam Eye Exam: Normal appearance - ENT Exam ENT Exam: Mucous Membranes Moist Additional comments: currently on trach collar, with humidified oxygen - Neck Exam Neck Exam: absent: Thyromegaly - Respiratory Exam Respiratory Exam: Rales, NORMAL BREATHING PATTERN. absent: Wheezes - Cardiovascular Exam Cardiovascular Exam: +S1, +S2 - GI/Abdominal Exam GI & Abdominal Exam: Soft, Normal Bowel Sounds Additional comments: peg tube in place, no erythema present - Extremities Exam Extremities Exam: Full ROM. absent: Calf Tenderness, Pedal Edema Additional comments: Slight left wrist swelling - Back Exam Back Exam: absent: CVA tenderness (L), CVA tenderness (R) - Neurological Exam Neurological Exam: Alert, Awake, Oriented x3 Additional comments: UE contracted at wrist, 4/5 muscle strength LE 3/5 strength, today L >R GSC 12 incomprehensible sounds, spontaneous eye movement, obeys command - Psychiatric Exam Psychiatric exam: Normal Affect, Normal Mood - Skin Skin Exam: Dry, Intact, Normal Color, Warm Assessment and Plan - Assessment and Plan (Free Text) Assessment: 57 yr F w/ no known medical history presented TO ED unresponsive, possible suicidal vs homicidal attempt; had extensive ICU stay requiring intubation, treatment for supsis, believe to have anoxic brain injury. Recently pt was able to be weaned of ventilator to tach collar, patient response to commands, opening eyes; will need extensive Physical therapy. Anoxic Brain Injury - Initial Neurology consulted, Dr. Duff/Guilherme - rpt EEG: severe non specific diffuse disturbances in cortical activity, brown matter dysfunction - MRI Brain: subacute favored over acute cerebral hypoxic insult with minimal involvement of the lower haris and the cerebellar hemispheres - re-consult for neurology; no recs at this point - GCS is 12; incomprehensible words, eyes open spontaneously - tube feedings vital 1.2 initial 20ml/hr w/ goal to increase to 50 ml/hr, currently 50ml/hr - PT - patient is improving, still has hand flexion - F/u speech/swallow eval Left wrist Ulcer - ulcer on left wrist w/ eschar - surgery recs - bedside debridement on 122/6 - Santyl daily DM - Blood sugars improved to 100s to 200s - Lantus 40 Units SC - Novolin 70/30 15 units BID - Accuchecks ACHS - ISS high dose - will continue current regimen as patient in GT feedings HTN - Metoprolol Tartrate 75 mg PO BID - Norvasc 5 mg PO 1x/day Transaminitis Resolving - Likely shock liver - Follow LFTs Respiratory Failure Resolved - Due to Asphyxiation/Possible Suicide Attempt - off ventilator 06/09, on trach collar - per Dr. Brennan, keep on trach collar - Mucomyst Q4 - Duonebs Q4 - continue to monitor Thrombocytopenia Resolved - platelet drop from 192s to 102s, now to 133s - HIT vs drug induced thrombocytopenia vs ? - Azithromycin & Ceftriaxone started on 06/03, following day drop in platelets - 4T's score for possible HIT: score of 3 -> < 1% probability of HIT - HIT unlikely - Will monitor and D/C Abx Fever spikes Leukocytosis Resolved - WBCs resolved, afebrile > 72 hrs - Ice packs, cooling blanket PRN - Motrin 200 mg Q6H PRN, Tylenol 650 mg Q6H PRN - Started Rocephin 1g Q12 & Azithromycin 500 mg Q24H (started 06/03) - D'C'ed due to possible drug induced thrombocytopenia - sputum cultures from 05/25 - yeast - Per Dr. Mcgill - diflucan 100 mg GT X7 days - D/c meropenum 1g Q8H & flaggyl 500mg Q8H (total 13 days of treatment) - likely neurological - will continue to monitor Acute Renal Injury Resolved - BUN/ Cr improving (76/4.5 -> 19/1.0) - likely due to dehydration - Start D5W @150 ml/hr - D/C'ed - increase insulin - see below Hypernatremia Resolved - Na+ 154 06/03 -> 146 06/04 - D5W @150ml/hr - d/fanta - increased insulin- see below plan NSTEMI Resolved - Elevated troponin - has normalized - ASA 81 mg PO daily (restarted 05/25) - Plavix 75mg PO daily (held - given drop in Hb) - hold Crestor 5 mg PO daily - Cardiology consulted, Dr Gay PPblas Heparin 5,000 Units SC Q8H (restarted 05/25) Pepcid 20mg Q12 Aspiration precautions Seizure precautions suction PRN Turn and reposition q2h PT/OT speech eval swallow eval <Yann Sheikh H - Last Filed: 06/16/18 12:59> Objective - Vital Signs/Intake and Output Vital Signs (last 24 hours): Temp Pulse Resp BP Pulse Ox 98.4 F 97 H 20 130/70 99 06/16/18 08:10 06/16/18 08:10 06/16/18 08:10 06/16/18 10:05 06/16/18 08:10 Intake and Output: 06/16/18 06/16/18 06:59 18:59 Intake Total 1400 Output Total 600 Balance 800 - Medications Medications: Current Medications Acetylcysteine (Acetylcysteine 20%) 4 ml INH RQ4 [facility] Last Admin: 06/16/18 07:25 Dose: 4 ml Albuterol/Ipratropium (Duoneb 3 Mg/0.5 Mg (3 Ml) Ud) 3 ml INH RQ4 [facility] Last Admin: 06/16/18 07:25 Dose: 3 ml Amlodipine Besylate (Norvasc) 10 mg PO DAILY [facility] Last Admin: 06/16/18 10:06 Dose: 10 mg Aspirin (Aspirin Chewable) 81 mg PO DAILY [facility] Last Admin: 06/16/18 10:04 Dose: 81 mg Bisacodyl (Dulcolax) 10 mg SD TID PRN PRN Reason: Constipation Last Admin: 05/10/18 09:45 Dose: 10 mg Clopidogrel Bisulfate (Plavix) 75 mg PO DAILY [facility] Last Admin: 05/22/18 10:07 Dose: 75 mg Dextrose (Dextrose 50% Inj) 0 ml IV STAT PRN; Protocol PRN Reason: Hypoglycemia Protocol Dextrose (Glutose 15) 15 gm PO ONCE PRN; Protocol PRN Reason: Hypoglycemia Protocol Famotidine (Pepcid) 20 mg GT DAILY [facility] Last Admin: 06/16/18 10:05 Dose: 20 mg Glucagon (Glucagen Diagnostic Kit) 1 mg IM STAT PRN; Protocol PRN Reason: Hypoglycemia Protocol Ibuprofen (Motrin Oral Susp) 200 mg PO Q6H PRN PRN Reason: Fever >100.4 F Last Admin: 06/14/18 20:27 Dose: 200 mg Insulin Aspart (Novolog) 0 unit SC [facility]; Protocol Last Admin: 06/16/18 11:52 Dose: Not Given Insulin Glargine (Lantus) 40 unit SC HS [facility] Last Admin: 06/15/18 21:39 Dose: Not Given Insulin Human Isoph/Insulin Regular (Novolin 70/30 (70/30 Units/Ml) 10 Ml) 15 units SC BID [facility] Last Admin: 06/16/18 10:11 Dose: 15 units Lactulose (Enulose) 20 gm PO DAILY PRN PRN Reason: Constipation Last Admin: 06/16/18 10:04 Dose: 20 gm Metoprolol Tartrate (Lopressor) 75 mg PO BID [facility] Last Admin: 06/16/18 10:05 Dose: 75 mg Rosuvastatin Calcium (Crestor) 5 mg PO HS [facility] Last Admin: 06/15/18 21:41 Dose: 5 mg Senna/Docusate Sodium (Senokot S 50 Mg-8.6 Mg) 1 tab PO BID [facility] Last Admin: 06/16/18 10:05 Dose: 1 tab Vitamin A (Vitamin A & D Oint Ud Foilpak) 1 ea TOP BID PRN PRN Reason: Dry skin Last Admin: 06/13/18 10:47 Dose: 1 ea - Labs Labs: 06/16/18 06:05 06/16/18 06:05 PT 16.8 SECONDS (9.7-12.2) H 05/28/18 07:15 INR 1.5 05/28/18 07:15 APTT 34 SECONDS (21-34) 05/28/18 07:15 Attending/Attestation - Attestation I have personally seen and examined this patient.: Yes I have fully participated in the care of the patient.: Yes I have reviewed all pertinent clinical information, including history, physical exam and plan: Yes Notes (Text): 06/16/18 12:58 Medical attending: Patient was seen and examined by me. Agree with the above note by the resident The patient was not in any acute change at this time. She was awake, family member present at bedside as well She is trying to follow very simple one step commands. aYnn Sheikh
[2018-06-16 07:12] LABS: ALB/GLOB RATIO 0.9 (1.0-2.1); ALBUMIN 3.5 g/dL (3.5-5.0); ALT/SGPT 45 U/L (9-52); AST/SGOT 60 U/L (14-36); BLOOD UREA NITROGEN 22 mg/dL (7-17); CALCIUM 9.5 mg/dl (8.6-10.4); GFR NON-AFRICAN AMERICAN > 60
[2018-06-16] MEDS: (Novolog) Insulin Aspart, Recombinant 100 u/ml 10 ml vial SC SCH ×4 (07:56→21:44)
[2018-06-16] MEDS: Docusate-Senna 50 mg-8.6 mg Tab PO SCH ×2 (10:05→18:23)
[2018-06-16] MEDS: (Novolin 70/30) NPH/Regular 70/30 Units/ml 10 ml vial SC SCH ×2 (10:11→18:26)
[2018-06-16] MEDS: (Lantus) Insulin Glargine, Recombinant SC SCH (21:42)
[2018-06-17] MEDS: Albuterol-Ipratrop 3 mg / 0.5 (3 ml) UD INH SCH ×5 (00:28→19:35)
[2018-06-17] MEDS: Acetylcysteine 20% Inhal Soln (4ml) INH SCH ×5 (00:28→19:35)
[2018-06-17 06:37] LABS: BASO # 0.1 K/uL (0.0-0.2); BASO % 0.9 % (0.0-2.0); EOS # 0.2 K/uL (0.0-0.7); EOS % 1.8 % (0.0-4.0); HEMOGLOBIN 10.1 g/dL (11.0-16.0); LYMPH # 1.7 K/uL (1.0-4.3); LYMPH % 16.6 % (20.0-40.0); MEAN CORPUSCULAR HGB CONC 32.6 g/dL (33.0-37.0); MEAN PLATELET VOLUME 10.4 fL (7.2-11.7); MONO # 0.6 K/uL (0.0-0.8); MONO % 5.6 % (0.0-10.0); NEUT # 7.7 K/uL (1.8-7.0); NEUT % 75.1 % (50.0-75.0); RBC 3.61 Mil/uL (3.80-5.20); RED CELL DISTRIBUTION WIDTH 17.7 % (11.5-14.5); WHITE BLOOD COUNT 10.3 K/uL (4.8-10.8)
--- NOTE | 2018-06-17 07:02 | CP.PCM.PN ---
<Ritu Dominguez - Last Filed: 06/17/18 14:41> Subjective - Date & Time of Evaluation Date of Evaluation: 06/17/18 Time of Evaluation: 08:00 - Subjective Subjective: Patient examined at bedside w/ sister in room. No acute overnight events. Sister reports pt seemed to have some difficulty breathing with some noted secretions. Nursing assessed and changed out trach tubing as it was partially obstructed with caked on secretions. Breathing improved after. Sister denies further complaint. ROS unobtainable due to pt's mental status Objective - Vital Signs/Intake and Output Vital Signs (last 24 hours): Temp Pulse Resp BP Pulse Ox 98.4 F 88 20 123/77 100 06/17/18 05:07 06/17/18 05:07 06/17/18 05:07 06/17/18 05:07 06/17/18 05:07 Intake and Output: 06/17/18 06/17/18 06:59 18:59 Intake Total 1200 Output Total 600 Balance 600 - Medications Medications: Current Medications Acetylcysteine (Acetylcysteine 20%) 4 ml INH RQ4 [facility] Last Admin: 06/17/18 03:34 Dose: 4 ml Albuterol/Ipratropium (Duoneb 3 Mg/0.5 Mg (3 Ml) Ud) 3 ml INH RQ4 [facility] Last Admin: 06/17/18 03:34 Dose: 3 ml Amlodipine Besylate (Norvasc) 10 mg PO DAILY [facility] Last Admin: 06/16/18 10:06 Dose: 10 mg Aspirin (Aspirin Chewable) 81 mg PO DAILY [facility] Last Admin: 06/16/18 10:04 Dose: 81 mg Bisacodyl (Dulcolax) 10 mg [place] TID PRN PRN Reason: Constipation Last Admin: 05/10/18 09:45 Dose: 10 mg Clopidogrel Bisulfate (Plavix) 75 mg PO DAILY [facility] Last Admin: 05/22/18 10:07 Dose: 75 mg Dextrose (Dextrose 50% Inj) 0 ml IV STAT PRN; Protocol PRN Reason: Hypoglycemia Protocol Dextrose (Glutose 15) 15 gm PO ONCE PRN; Protocol PRN Reason: Hypoglycemia Protocol Famotidine (Pepcid) 20 mg GT DAILY [facility] Last Admin: 06/16/18 10:05 Dose: 20 mg Glucagon (Glucagen Diagnostic Kit) 1 mg IM STAT PRN; Protocol PRN Reason: Hypoglycemia Protocol Ibuprofen (Motrin Oral Susp) 200 mg PO Q6H PRN PRN Reason: Fever >100.4 F Last Admin: 06/14/18 20:27 Dose: 200 mg Insulin Aspart (Novolog) 0 unit SC [facility]; Protocol Last Admin: 06/16/18 21:44 Dose: Not Given Insulin Glargine (Lantus) 40 unit SC [facility] Last Admin: 06/16/18 21:42 Dose: 40 units Insulin Human Isoph/Insulin Regular (Novolin 70/30 (70/30 Units/Ml) 10 Ml) 15 units SC BID [facility] Last Admin: 06/16/18 18:26 Dose: 15 units Lactulose (Enulose) 20 gm PO DAILY PRN PRN Reason: Constipation Last Admin: 06/16/18 10:04 Dose: 20 gm Metoprolol Tartrate (Lopressor) 75 mg PO BID [facility] Last Admin: 06/16/18 18:23 Dose: 75 mg Rosuvastatin Calcium (Crestor) 5 mg PO [facility] Last Admin: 06/16/18 21:42 Dose: 5 mg Senna/Docusate Sodium (Senokot S 50 Mg-8.6 Mg) 1 tab PO BID [facility] Last Admin: 06/16/18 18:23 Dose: 1 tab Vitamin A (Vitamin A & D Oint Ud Foilpak) 1 ea TOP BID PRN PRN Reason: Dry skin Last Admin: 06/13/18 10:47 Dose: 1 ea - Labs Labs: 06/17/18 06:34 06/16/18 06:05 PT 16.8 SECONDS (9.7-12.2) H 05/28/18 07:15 INR 1.5 05/28/18 07:15 APTT 34 SECONDS (21-34) 05/28/18 07:15 - Constitutional Appears: Non-toxic, No Acute Distress - Head Exam Head Exam: ATRAUMATIC, NORMAL INSPECTION, NORMOCEPHALIC - ENT Exam ENT Exam: Mucous Membranes Dry, Normal Exam - Neck Exam Additional comments: trach collar in place w/ O2 via blow by - Respiratory Exam Respiratory Exam: NORMAL BREATHING PATTERN Additional comments: hyper-resonant breath sounds - Cardiovascular Exam Cardiovascular Exam: REGULAR RHYTHM, +S1, +S2 - GI/Abdominal Exam GI & Abdominal Exam: Soft, Normal Bowel Sounds Additional comments: PEG tube actively feeding - Extremities Exam Extremities Exam: Normal Capillary Refill. absent: Pedal Edema Additional comments: in air boots b/l - Neurological Exam Neurological Exam: Altered - Skin Skin Exam: Dry, Intact, Normal Color, Warm Assessment and Plan - Assessment and Plan (Free Text) Assessment: 52 year old female admitted for evaluation and treatment of anoxic brain injury Plan: AMS -improving, able to follow 1 direction commands -GCS 12 -Dr. Vanegas neuro consult, no further intervention -ENT consult Dr. Lobo to [place] for vocal cord dysfunction Respiratory failure -patient currently tolerating O2 via blow-by, trach collar -continue to monitor O2%/RR -duonebs/mucomyst Left wrist ulcer -healing well -debridement per sx -wound care -sx consult Dr. James HTN -metoprolol/norvasc DM -ISS -accuchecks Nutrition -vital 1.2 at 50/hr -monitor for tolerance -200cc free water flushes q6 Ppx -colindres removed and reinserted 06/17 from last insertion(05/17) -heparin, DVT ppx -pepcid, GI ppx -PO/OT/Speech Dispo: Family awaiting to secure insurance on 07/06/18 so pt can be transferred to [facility] for further management Discussed with Dr. Sheikh -Ritu Dominguez, PGY-1 <Yann Sheikh - Last Filed: 06/17/18 15:54> Objective - Vital Signs/Intake and Output Vital Signs (last 24 hours): Temp Pulse Resp BP Pulse Ox 98.5 F 84 20 134/84 99 06/17/18 07:54 06/17/18 07:54 06/17/18 07:54 06/17/18 10:46 06/17/18 07:54 Intake and Output: 06/17/18 06/17/18 06:59 18:59 Intake Total 1200 Output Total 600 250 Balance 600 -250 - Medications Medications: Current Medications Acetylcysteine (Acetylcysteine 20%) 4 ml INH RQ4 [facility] Last Admin: 06/17/18 08:13 Dose: 4 ml Albuterol/Ipratropium (Duoneb 3 Mg/0.5 Mg (3 Ml) Ud) 3 ml INH RQ4 [facility] Last Admin: 06/17/18 08:13 Dose: 3 ml Amlodipine Besylate (Norvasc) 10 mg PO DAILY [facility] Last Admin: 06/17/18 10:47 Dose: 10 mg Aspirin (Aspirin Chewable) 81 mg PO DAILY [facility] Last Admin: 06/17/18 10:47 Dose: 81 mg Bisacodyl (Dulcolax) 10 mg [place] TID PRN PRN Reason: Constipation Last Admin: 05/10/18 09:45 Dose: 10 mg Clopidogrel Bisulfate (Plavix) 75 mg PO DAILY [facility] Last Admin: 05/22/18 10:07 Dose: 75 mg Dextrose (Dextrose 50% Inj) 0 ml IV STAT PRN; Protocol PRN Reason: Hypoglycemia Protocol Dextrose (Glutose 15) 15 gm PO ONCE PRN; Protocol PRN Reason: Hypoglycemia Protocol Famotidine (Pepcid) 20 mg GT DAILY [facility] Last Admin: 06/17/18 10:47 Dose: 20 mg Glucagon (Glucagen Diagnostic Kit) 1 mg IM STAT PRN; Protocol PRN Reason: Hypoglycemia Protocol Ibuprofen (Motrin Oral Susp) 200 mg PO Q6H PRN PRN Reason: Fever >100.4 F Last Admin: 06/14/18 20:27 Dose: 200 mg Insulin Aspart (Novolog) 0 unit SC [facility]; Protocol Last Admin: 06/17/18 11:50 Dose: Not Given Insulin Glargine (Lantus) 40 unit SC [facility] Last Admin: 06/16/18 21:42 Dose: 40 units Insulin Human Isoph/Insulin Regular (Novolin 70/30 (70/30 Units/Ml) 10 Ml) 15 units SC BID [facility] Last Admin: 06/17/18 10:46 Dose: 15 units Lactulose (Enulose) 20 gm PO DAILY PRN PRN Reason: Constipation Last Admin: 06/16/18 10:04 Dose: 20 gm Metoprolol Tartrate (Lopressor) 75 mg PO BID [facility] Last Admin: 06/17/18 10:46 Dose: 75 mg Rosuvastatin Calcium (Crestor) 5 mg PO [facility] Last Admin: 06/16/18 21:42 Dose: 5 mg Senna/Docusate Sodium (Senokot S 50 Mg-8.6 Mg) 1 tab PO BID [facility] Last Admin: 06/17/18 10:46 Dose: 1 tab Vitamin A (Vitamin A & D Oint Ud Foilpak) 1 ea TOP BID PRN PRN Reason: Dry skin Last Admin: 06/13/18 10:47 Dose: 1 ea - Labs Labs: 06/17/18 06:34 06/17/18 06:34 PT 16.8 SECONDS (9.7-12.2) H 05/28/18 07:15 INR 1.5 05/28/18 07:15 APTT 34 SECONDS (21-34) 05/28/18 07:15 Attending/Attestation - Attestation I have personally seen and examined this patient.: Yes I have fully participated in the care of the patient.: Yes I have reviewed all pertinent clinical information, including history, physical exam and plan: Yes Notes (Text): 06/17/18 15:52 Medical attending: Patient was seen and examined by me, agree with the above note by the resident. The patient was with family member at bedside. Today it should be mentioned that she was able to smile at me when the family asked her to. This is the first time she has been able to smile, and while this is a small improvment, I hope we continue to see further improvements Yann Sheikh
[2018-06-17 07:30] LABS: ALB/GLOB RATIO 0.9 (1.0-2.1); ALBUMIN 3.4 g/dL (3.5-5.0); ALT/SGPT 41 U/L (9-52); AST/SGOT 40 U/L (14-36); BLOOD UREA NITROGEN 26 mg/dL (7-17); CALCIUM 9.3 mg/dl (8.6-10.4); GFR NON-AFRICAN AMERICAN > 60
[2018-06-17] MEDS: Docusate-Senna 50 mg-8.6 mg Tab PO SCH ×2 (10:46→18:31)
[2018-06-17] MEDS: (Novolog) Insulin Aspart, Recombinant 100 u/ml 10 ml vial SC SCH ×4 (10:46→21:27)
[2018-06-17] MEDS: (Novolin 70/30) NPH/Regular 70/30 Units/ml 10 ml vial SC SCH ×2 (10:46→18:35)
[2018-06-17] MEDS: (Lantus) Insulin Glargine, Recombinant SC SCH (21:29)
[2018-06-18] MEDS: Acetylcysteine 20% Inhal Soln (4ml) INH SCH ×7 (00:11→23:42)
[2018-06-18] MEDS: Albuterol-Ipratrop 3 mg / 0.5 (3 ml) UD INH SCH ×7 (00:11→23:42)
--- NOTE | 2018-06-18 07:23 | CP.PCM.PN ---
<Michael Diaz - Last Filed: 06/18/18 16:12> Subjective - Date & Time of Evaluation Date of Evaluation: 06/18/18 Time of Evaluation: 07:30 - Subjective Subjective: PGY 1 Medicine Progress for hospitalist Dr. Sheikh. Patient seen and examined at bedside. no overnight events reported. Patient still unable to verbalize. Per speech, patient may need adjustment of trach tube/ r/o vocal cord dysfunction. Per ENT, patient vocal cords functional, consider weaning of O2. Patient remains on trach oxygen. Attempted no supplimental O2 today for approximately 5 minutes. Patient remained O2 saturating > 96% the entire time. Objective - Vital Signs/Intake and Output Vital Signs (last 24 hours): Temp Pulse Resp BP Pulse Ox 98 F 64 20 112/70 100 06/18/18 00:00 06/18/18 00:00 06/18/18 00:00 06/18/18 00:00 06/18/18 00:00 Intake and Output: 06/18/18 06/18/18 06:59 18:59 Intake Total 1200 Output Total 600 Balance 600 - Medications Medications: Current Medications Acetylcysteine (Acetylcysteine 20%) 4 ml INH RQ4 [facility] Last Admin: 06/18/18 05:02 Dose: 4 ml Albuterol/Ipratropium (Duoneb 3 Mg/0.5 Mg (3 Ml) Ud) 3 ml INH RQ4 [facility] Last Admin: 06/18/18 05:02 Dose: 3 ml Amlodipine Besylate (Norvasc) 10 mg PO DAILY [facility] Last Admin: 06/17/18 10:47 Dose: 10 mg Aspirin (Aspirin Chewable) 81 mg PO DAILY [facility] Last Admin: 06/17/18 10:47 Dose: 81 mg Bisacodyl (Dulcolax) 10 mg NH TID PRN PRN Reason: Constipation Last Admin: 05/10/18 09:45 Dose: 10 mg Clopidogrel Bisulfate (Plavix) 75 mg PO DAILY [facility] Last Admin: 05/22/18 10:07 Dose: 75 mg Dextrose (Dextrose 50% Inj) 0 ml IV STAT PRN; Protocol PRN Reason: Hypoglycemia Protocol Dextrose (Glutose 15) 15 gm PO ONCE PRN; Protocol PRN Reason: Hypoglycemia Protocol Famotidine (Pepcid) 20 mg GT DAILY [facility] Last Admin: 06/17/18 10:47 Dose: 20 mg Glucagon (Glucagen Diagnostic Kit) 1 mg IM STAT PRN; Protocol PRN Reason: Hypoglycemia Protocol Ibuprofen (Motrin Oral Susp) 200 mg PO Q6H PRN PRN Reason: Fever >100.4 F Last Admin: 06/14/18 20:27 Dose: 200 mg Insulin Aspart (Novolog) 0 unit SC ACHS [facility]; Protocol Last Admin: 06/17/18 21:27 Dose: Not Given Insulin Glargine (Lantus) 40 unit SC [facility] Last Admin: 06/17/18 21:29 Dose: 40 units Insulin Human Isoph/Insulin Regular (Novolin 70/30 (70/30 Units/Ml) 10 Ml) 15 units SC BID [facility] Last Admin: 06/17/18 18:35 Dose: 15 units Lactulose (Enulose) 20 gm PO DAILY PRN PRN Reason: Constipation Last Admin: 06/16/18 10:04 Dose: 20 gm Metoprolol Tartrate (Lopressor) 75 mg PO BID [facility] Last Admin: 06/17/18 18:32 Dose: 75 mg Rosuvastatin Calcium (Crestor) 5 mg PO [facility] Last Admin: 06/17/18 21:26 Dose: 5 mg Senna/Docusate Sodium (Senokot S 50 Mg-8.6 Mg) 1 tab PO BID [facility] Last Admin: 06/17/18 18:31 Dose: 1 tab Vitamin A (Vitamin A & D Oint Ud Foilpak) 1 ea TOP BID PRN PRN Reason: Dry skin Last Admin: 06/13/18 10:47 Dose: 1 ea - Labs Labs: 06/17/18 06:34 06/17/18 06:34 PT 16.8 SECONDS (9.7-12.2) H 05/28/18 07:15 INR 1.5 05/28/18 07:15 APTT 34 SECONDS (21-34) 05/28/18 07:15 - Constitutional Appears: Non-toxic, No Acute Distress - Head Exam Head Exam: NORMAL INSPECTION - Eye Exam Eye Exam: Normal appearance Pupil Exam: NORMAL ACCOMODATION - ENT Exam Additional comments: currently on trach collar, with humidified oxygen - Respiratory Exam Respiratory Exam: NORMAL BREATHING PATTERN. absent: Rhonchi, Wheezes - Cardiovascular Exam Cardiovascular Exam: +S1, +S2 - GI/Abdominal Exam GI & Abdominal Exam: Soft, Normal Bowel Sounds - Extremities Exam Extremities Exam: Full ROM, Normal Inspection. absent: Calf Tenderness, Pedal Edema Additional comments: left writ, previous eschar, currently wrapped, dressing clean, dry, intact - Back Exam Back Exam: absent: CVA tenderness (L), CVA tenderness (R) - Neurological Exam Neurological Exam: Alert, Awake Neuro motor strength exam: Left Upper Extremity: 4, Right Upper Extremity: 4, Left Lower Extremity: 4, Right Lower Extremity: 4 Additional comments: - GCS is 12; incomprehensible words, eyes open spontaneously - Psychiatric Exam Psychiatric exam: Normal Affect, Normal Mood - Skin Skin Exam: Dry, Intact, Normal Color, Warm Assessment and Plan - Assessment and Plan (Free Text) Assessment: 57 yr F w/ no known medical history presented TO ED unresponsive, possible suicidal vs homicidal attempt; had extensive ICU stay requiring intubation, treatment for sepsis, believed to have anoxic brain injury. Recently pt was able to be weaned of ventilator to tach collar w/ blow by oxygen, patient response to commands, opening eyes; will need extensive Physical therapy. Additionally, Per speech, patient may need adjustment of trach tube/ r/o vocal cord dysfunction. Per ENT, patient vocal cords functional, consider weaning of O2. Patient remains on trach oxygen. Attempted no supplemental O2 today for approximately 5 minutes. Patient remained O2 saturating > 96% the entire time. Will continue ewaning Anoxic Brain Injury ? AMS - Initial Neurology consulted, Dr. Duff/Guilherme - rpt EEG: severe non specific diffuse disturbances in cortical activity, brown matter dysfunction - MRI Brain: subacute favored over acute cerebral hypoxic insult with minimal involvement of the lower haris and the cerebellar hemispheres - re-consult for neurology; no recs at this point - GCS is 12; incomprehensible words, eyes open spontaneously - tube feedings vital 1.2 initial 20ml/hr w/ goal to increase to 50 ml/hr, currently 50ml/hr - PT - patient is improving, still has hand flexion - per Respiratory Failure - Due to Asphyxiation/Possible Suicide Attempt - off ventilator 06/09, on trach collar - on blow by oxygen - turn of blow by oxygen Q2H, check O2 sats Q30 mins - Mucomyst Q4 - Duonebs Q4 - continue to monitor Left wrist Ulcer - ulcer on left wrist w/ eschar - surgery recs - bedside debridement on 122/6 - Santyl daily DM - Blood sugars improved to 100s to 200s - Lantus 40 Units SC - Novolin 70/30 15 units BID - Accuchecks ACHS - ISS high dose - will continue current regimen as patient in GT feedings HTN - Metoprolol Tartrate 75 mg PO BID - Norvasc 5 mg PO 1x/day Transaminitis Resolved - Likely shock liver - Follow LFTs Thrombocytopenia Resolved - platelet drop from 192s to 102s, now to 133s - HIT vs drug induced thrombocytopenia vs ? - Azithromycin & Ceftriaxone started on 06/03, following day drop in platelets - 4T's score for possible HIT: score of 3 -> < 1% probability of HIT - HIT unlikely - Will monitor and D/C Abx Fever spikes Leukocytosis Resolved - WBC elevated previously - Febrile previously - Motrin 200 mg Q6H PRN, Tylenol 650 mg Q6H PRN - received diflucan 100 mg GT X7 days for yest in tcollar - received meropenum & flaggyl for 13 days - Received Rocephin 1g Q12 & Azithromycin 500 mg Q24H (started 06/03) - D'C'ed due to possible drug induced thrombocytopenia - likely neurological Acute Renal Injury Resolved - BUN/ Cr improving (76/4.5 -> 19/1.0) - likely due to dehydration - Start D5W @150 ml/hr - D/C'ed - increase insulin - see below Hypernatremia Resolved - Na+ 154 06/03 -> 146 06/04 - D5W @150ml/hr - d/fanta - increased insulin- see below plan NSTEMI Resolved - Elevated troponin - has normalized - ASA 81 mg PO daily (restarted 05/25) - Plavix 75mg PO daily (held - given drop in Hb) - hold Crestor 5 mg PO daily - Cardiology consulted, Dr Gay PPx Heparin 5,000 Units SC Q8H (restarted 05/25) Pepcid 20mg Q12 Aspiration precautions Seizure precautions suction PRN Turn and reposition q2h PT/OT speech eval swallow eval Dispo: Patient improving, still unable to vocalize. Will attempt to wean off oxygen. Provided that goes well, will plan to discuss with surgery for possible removal of trach. Patient will need extensive PT. Per ENT, vocal cords are intact. F/u speech and PT recs <Sheikh,Peter H - Last Filed: 06/18/18 17:20> Objective - Vital Signs/Intake and Output Vital Signs (last 24 hours): Temp Pulse Resp BP Pulse Ox 97.5 F L 61 20 125/76 100 06/18/18 07:00 06/18/18 07:00 06/18/18 07:00 06/18/18 09:17 06/18/18 07:00 Intake and Output: 06/18/18 06/18/18 06:59 18:59 Intake Total 1200 Output Total 600 Balance 600 - Medications Medications: Current Medications Acetylcysteine (Acetylcysteine 20%) 4 ml INH RQ4 [facility] Last Admin: 06/18/18 15:30 Dose: 4 ml Albuterol/Ipratropium (Duoneb 3 Mg/0.5 Mg (3 Ml) Ud) 3 ml INH RQ4 [facility] Last Admin: 06/18/18 15:30 Dose: 3 ml Amlodipine Besylate (Norvasc) 10 mg PO DAILY [facility] Last Admin: 06/18/18 09:17 Dose: 10 mg Aspirin (Aspirin Chewable) 81 mg PO DAILY [facility] Last Admin: 06/18/18 09:17 Dose: 81 mg Bisacodyl (Dulcolax) 10 mg NH TID PRN PRN Reason: Constipation Last Admin: 05/10/18 09:45 Dose: 10 mg Clopidogrel Bisulfate (Plavix) 75 mg PO DAILY [facility] Last Admin: 05/22/18 10:07 Dose: 75 mg Dextrose (Dextrose 50% Inj) 0 ml IV STAT PRN; Protocol PRN Reason: Hypoglycemia Protocol Dextrose (Glutose 15) 15 gm PO ONCE PRN; Protocol PRN Reason: Hypoglycemia Protocol Famotidine (Pepcid) 20 mg GT DAILY [facility] Last Admin: 06/18/18 09:17 Dose: 20 mg Glucagon (Glucagen Diagnostic Kit) 1 mg IM STAT PRN; Protocol PRN Reason: Hypoglycemia Protocol Ibuprofen (Motrin Oral Susp) 200 mg PO Q6H PRN PRN Reason: Fever >100.4 F Last Admin: 06/14/18 20:27 Dose: 200 mg Insulin Aspart (Novolog) 0 unit SC ACHS [facility]; Protocol Last Admin: 06/18/18 16:42 Dose: Not Given Insulin Glargine (Lantus) 40 unit SC HS [facility] Last Admin: 06/17/18 21:29 Dose: 40 units Insulin Human Isoph/Insulin Regular (Novolin 70/30 (70/30 Units/Ml) 10 Ml) 15 units SC BID [facility] Last Admin: 06/18/18 09:21 Dose: 15 units Lactulose (Enulose) 20 gm PO DAILY PRN PRN Reason: Constipation Last Admin: 06/16/18 10:04 Dose: 20 gm Metoprolol Tartrate (Lopressor) 75 mg PO BID [facility] Last Admin: 06/18/18 09:17 Dose: 75 mg Rosuvastatin Calcium (Crestor) 5 mg PO HS [facility] Last Admin: 06/17/18 21:26 Dose: 5 mg Senna/Docusate Sodium (Senokot S 50 Mg-8.6 Mg) 1 tab PO BID [facility] Last Admin: 06/18/18 09:18 Dose: 1 tab Vitamin A (Vitamin A & D Oint Ud Foilpak) 1 ea TOP BID PRN PRN Reason: Dry skin Last Admin: 06/13/18 10:47 Dose: 1 ea - Labs Labs: 06/18/18 07:09 06/18/18 07:09 PT 16.8 SECONDS (9.7-12.2) H 05/28/18 07:15 INR 1.5 05/28/18 07:15 APTT 34 SECONDS (21-34) 05/28/18 07:15 Attending/Attestation - Attestation I have personally seen and examined this patient.: Yes I have fully participated in the care of the patient.: Yes I have reviewed all pertinent clinical information, including history, physical exam and plan: Yes Notes (Text): 06/18/18 17:19 Medical attending: Patient was seen and examined by me. I do not have new news to report, she is awake, able to look at us when name called, able to raise her arms. Otherwise similar to yesterday. Will try the patient without the supplmental oxygen mask that is next to the trach and see how she does Yann Sheikh
[2018-06-18 07:27] LABS: BASO # 0.1 K/uL (0.0-0.2); BASO % 0.9 % (0.0-2.0); EOS # 0.2 K/uL (0.0-0.7); EOS % 3.5 % (0.0-4.0); HEMOGLOBIN 9.4 g/dL (11.0-16.0); LYMPH # 1.8 K/uL (1.0-4.3); LYMPH % 27.3 % (20.0-40.0); MEAN CELL VOLUME 86.5 fL (81.0-99.0); MEAN CORPUSCULAR HEMOGLOBIN 28.9 pg (27.0-31.0); MEAN CORPUSCULAR HGB CONC 33.4 g/dL (33.0-37.0); MEAN PLATELET VOLUME 11.2 fL (7.2-11.7); MONO # 0.5 K/uL (0.0-0.8); MONO % 6.9 % (0.0-10.0); NEUT # 4.1 K/uL (1.8-7.0); NEUT % 61.4 % (50.0-75.0); RBC 3.26 Mil/uL (3.80-5.20); RED CELL DISTRIBUTION WIDTH 18.1 % (11.5-14.5); WHITE BLOOD COUNT 6.7 K/uL (4.8-10.8)
[2018-06-18 07:48] LABS: ALBUMIN 3.2 g/dL (3.5-5.0); ALT/SGPT 42 U/L (9-52); AST/SGOT 30 U/L (14-36); BLOOD UREA NITROGEN 26 mg/dL (7-17); CALCIUM 8.4 mg/dl (8.6-10.4); GFR NON-AFRICAN AMERICAN > 60
[2018-06-18] MEDS: (Novolog) Insulin Aspart, Recombinant 100 u/ml 10 ml vial SC SCH ×4 (08:27→21:07)
[2018-06-18] MEDS: Docusate-Senna 50 mg-8.6 mg Tab PO SCH ×2 (09:18→18:55)
[2018-06-18] MEDS: (Novolin 70/30) NPH/Regular 70/30 Units/ml 10 ml vial SC SCH ×2 (09:21→18:55)
--- NOTE | 2018-06-18 18:56 | PCM.RRT ---
<Rios Mc - Last Filed: 06/18/18 18:59> [employer] Nurses Assessment - Situation Date: 06/18/18 Time [employer] was called: 18:25 [employer] Responder Arrival Time:: 18:29 [employer] Location:: Med/Oncology Room Number: 355-A [employer] Reason for Call: O2 Saturation below 90% ([employer] was called for pulse ox in the low 80s, pt was noted to have difficulty breathing) [employer] Called By: RN New IV Insertion Tolerance: Excellent - Respiratory Secretions Suctioned?: Yes (pt with mucus plug with blood lodged in trach cannula. It was replaced.) - Ventilator Settings FIO2 (% Oxygen): 40 - Vital Signs Vital Signs: BP 97/60, SpO2 82%, HR 95, Temp 97.8 orally, RR is 24 - Time [employer] Ended Time [employer] Ended: 18:34 (After replacement o f trach cannula, pt was no longer in distress. pulse ox increased to 100% on RA.) - Vital Signs at end of [employer] Vital Signs at end of [employer]: spo2 100% on RA, BP is 144/80, HR is 83, RR is 16 - Recommendations 5) [employer] Level of Care Recommendations: Remain in current setting Notifications: Attending Physician <Vick Kerns - Last Filed: 06/29/18 11:31> [employer] Nurses Assessment - Vital Signs Vital Signs: Rapid Response Vital Sign Blood Pressure 140/75 Pulse Rate 105 Respiratory Rate 5 Temperature 97.8 F Oxygen Saturation 84 - Vital Signs at end of [employer] Vital Signs at end of [employer]: Rapid Response End Vital Sign Blood Pressure 144/80 Pulse Rate 83 Respiratory Rate 20 Temperature 97.8 F O2 Sat by Pulse Oximetry 100 Attending/Attestation - Attestation I have personally seen and examined this patient.: Yes I have fully participated in the care of the patient.: Yes I have reviewed all pertinent clinical information, including history, physical exam and plan: Yes Notes (Text): 06/29/18 11:31 This is a late entry. Care of this patient was gone over with resident Dr. Mc. Vick Kerns D.O.
[2018-06-18] MEDS: (Lantus) Insulin Glargine, Recombinant SC SCH (21:37)
--- NOTE | 2018-06-18 22:50 | OP ---
PROCEDURE DATE: 06/18/2018 PREOPERATIVE DIAGNOSIS: Possible vocal cord dysfunction. POSTOPERATIVE DIAGNOSIS: Possible vocal cord dysfunction. PROCEDURE: Flexible laryngoscope. SURGEON: Rajeev Lobo MD SIGNIFICANT FINDINGS: No masses or lesions. Vocal cords were mobile bilaterally. DESCRIPTION OF PROCEDURE: The patient was placed in a supine position. The nose was decongested using Afrin. Flexible laryngoscope was inserted into the nasal cavity passed to the nasopharynx, oropharynx, and hypopharynx. The pharyngeal solano, base of tongue, vallecula, epiglottis, AE folds, false cord, true cord, arytenoids, piriform sinuses were brought into view . No masses or lesions were noted. Vocal cords were noted to be mobile bilaterally. The scope was removed. The patient tolerated the procedure well. Rajeev Lobo MD
--- NOTE | 2018-06-19 01:48 | CP.PCM.PN ---
<Arianne Burkett - Last Filed: 06/19/18 01:45> Subjective - Date & Time of Evaluation Date of Evaluation: 06/19/18 Time of Evaluation: 01:45 - Subjective Subjective: PGY-1 Arianne Burkett D.O. Medicine progress note for Dr. Sheikh's service: Patient was seen and examined. [employer] WORKER yesterday for mucus plug in trach. This was suctioned out and patient no longer in acute distress. Also s/p laryngoscopy yesterday to assess vocal cord function. Patient makes eye contact and can follow simple commands in Tajik. Still nonverbal. Denies pain by shaking head. Objective - Vital Signs/Intake and Output Vital Signs (last 24 hours): Temp Pulse Resp BP Pulse Ox 98.3 F 61 20 110/60 100 06/19/18 00:00 06/19/18 00:00 06/19/18 00:00 06/19/18 00:00 06/19/18 00:00 Intake and Output: 06/18/18 06/19/18 18:59 06:59 Intake Total 600 600 Output Total 450 400 Balance 150 200 - Medications Medications: Current Medications Acetylcysteine (Acetylcysteine 20%) 4 ml INH RQ4 [facility] Last Admin: 06/18/18 23:42 Dose: 4 ml Albuterol/Ipratropium (Duoneb 3 Mg/0.5 Mg (3 Ml) Ud) 3 ml INH RQ4 [facility] Last Admin: 06/18/18 23:42 Dose: 3 ml Amlodipine Besylate (Norvasc) 10 mg PO DAILY [facility] Last Admin: 06/18/18 09:17 Dose: 10 mg Aspirin (Aspirin Chewable) 81 mg PO DAILY [facility] Last Admin: 06/18/18 09:17 Dose: 81 mg Bisacodyl (Dulcolax) 10 mg AR TID PRN PRN Reason: Constipation Last Admin: 05/10/18 09:45 Dose: 10 mg Clopidogrel Bisulfate (Plavix) 75 mg PO DAILY [facility] Last Admin: 05/22/18 10:07 Dose: 75 mg Dextrose (Dextrose 50% Inj) 0 ml IV STAT PRN; Protocol PRN Reason: Hypoglycemia Protocol Dextrose (Glutose 15) 15 gm PO ONCE PRN; Protocol PRN Reason: Hypoglycemia Protocol Famotidine (Pepcid) 20 mg GT DAILY [facility] Last Admin: 06/18/18 09:17 Dose: 20 mg Glucagon (Glucagen Diagnostic Kit) 1 mg IM STAT PRN; Protocol PRN Reason: Hypoglycemia Protocol Ibuprofen (Motrin Oral Susp) 200 mg PO Q6H PRN PRN Reason: Fever >100.4 F Last Admin: 06/14/18 20:27 Dose: 200 mg Insulin Aspart (Novolog) 0 unit SC ACHS [facility]; Protocol Last Admin: 06/18/18 21:07 Dose: Not Given Insulin Glargine (Lantus) 40 unit SC [facility] Last Admin: 06/18/18 21:37 Dose: 40 units Insulin Human Isoph/Insulin Regular (Novolin 70/30 (70/30 Units/Ml) 10 Ml) 15 units SC BID [facility] Last Admin: 06/18/18 18:55 Dose: 15 units Lactulose (Enulose) 20 gm PO DAILY PRN PRN Reason: Constipation Last Admin: 06/16/18 10:04 Dose: 20 gm Metoprolol Tartrate (Lopressor) 75 mg PO BID [facility] Last Admin: 06/18/18 18:55 Dose: 75 mg Rosuvastatin Calcium (Crestor) 5 mg PO HS [facility] Last Admin: 06/18/18 21:36 Dose: 5 mg Senna/Docusate Sodium (Senokot S 50 Mg-8.6 Mg) 1 tab PO BID [facility] Last Admin: 06/18/18 18:55 Dose: 1 tab Vitamin A (Vitamin A & D Oint Ud Foilpak) 1 ea TOP BID PRN PRN Reason: Dry skin Last Admin: 06/13/18 10:47 Dose: 1 ea - Labs Labs: 06/18/18 07:09 06/18/18 07:09 PT 16.8 SECONDS (9.7-12.2) H 05/28/18 07:15 INR 1.5 05/28/18 07:15 APTT 34 SECONDS (21-34) 05/28/18 07:15 - Constitutional Appears: No Acute Distress, Chronically Ill - Head Exam Head Exam: ATRAUMATIC, NORMAL INSPECTION - Eye Exam Eye Exam: EOMI, Normal appearance, PERRL - Neck Exam Additional comments: trach collar - Respiratory Exam Respiratory Exam: Clear to Ausculation Bilateral, NORMAL BREATHING PATTERN. absent: Respiratory Distress - Cardiovascular Exam Cardiovascular Exam: REGULAR RHYTHM, +S1, +S2 - GI/Abdominal Exam GI & Abdominal Exam: Soft. absent: Tenderness - Rectal Exam Rectal Exam: Deferred - Extremities Exam Extremities Exam: Normal Inspection. absent: Pedal Edema, Tenderness Additional comments: L forearm with clean dry bandages (eschar) - Neurological Exam Neurological Exam: Alert, Awake Neuro motor strength exam: Left Upper Extremity: 4, Right Upper Extremity: 4, Left Lower Extremity: 4, Right Lower Extremity: 4 - Skin Skin Exam: Dry, Intact, Normal Color, Warm Assessment and Plan - Assessment and Plan (Free Text) Assessment: Patient is a 52 year old female visiting from with probable past medical history of diabetes mellitus type 2 who was found unresponsive by on 05/01 (reportedly). EMS was called and patient was resuscitated and subsequently intubated on the field and brought to the ED. Code stroke was called, patient was subsequently admitted to ICU for close monitoring and evaluation for anoxic brain injury. Patient was noted on physical exam to have ring monge suggestive of suicidal attempt by hanging. [employer] involved and state high likelihood of suicidal attempt. patient was treated for sepsis. Patient is s/p tracheostomy and PEG. Downgraded to telemetry. Recently able to be weaned of ventilator to trach collar w/ humidified oxygen. Patient now responds to commands, opening eyes, tracking. She will need extensive physical therapy. Additionally, Per speech, patient may need adjustment of trach tube. Per ENT, patient vocal cords functional, consider weaning of O2. Attempted no supplemental O2 yesterday for approximately 5 minutes. Patient remained O2 saturating > 96% the entire time; however, she subsequently developed mucus plug that needed suctioning. Plan: Anoxic Brain Injury- improving clinically - GCS improving, now 12 - Aspiration precautions - Seizure precautions - Turn and reposition q2h - EEG 05/04: diffuse encephalopathy with burst suppression. - Repeat EEG: severe non specific diffuse distrubances in cortical activity, brown matter dysfunction - Repeat CT head: no bleeding - MRI Brain: subacute favored over acute cerebral hypoxic insult with minimal involvement of the lower haris and the cerebellar hemispheres - S/p trach and PEG - PT/OT/ST - Neurology consulted, Dr. Duff/Guilherme Acute Renal Injury with oliguria- improving - likely due to dehydration - No hemodialysis needed - Nephrology consulted, Dr. Samuels Transaminitis- improving - Likely shock liver - Follow LFTs Constipation - Senokot BID - Dulcolax 10 mg AR TID PRN - Lactulose 20 mg PO daily PRN Type 2 diabetes mellitus- chronic - Blood sugars remain elevated in high 200s to 300s - insulin increased 2/2 to D5W @75ml/hr started on 06/02 - Lantus 40 Units SC QHS - Novolin 70/30 15 units BID - Accuchecks ACHS - ISS high dose - Hypoglycemic protocol Hypertension- chronic, stable - No pressors (was previously hypotensive) - Increase IVF to rate of 150 mL/hr - Metoprolol Tartrate 75 mg PO BID- holding parameters - Norvasc 10 mg PO daily- holding parameters Respiratory Failure- resolved - Due to Asphyxiation - s/p tracheotomy - Mucomyst Q4 H - Duonebs Q4H - suction prn - Humidified O2, continue to wean as tolerated Fevers- resolved - Afebrile since 06/04 - Ice packs, cooling blanket - Motrin 200 mg Q6H PRN - sputum cultures from 05/25 - yeast - D/c meropenum 1g Q8H & flaggyl 500mg Q8H (total 13 days of treatment) - Start Rocephin 1 g IV BID - Start Azithromycin 500 mg IV daily NSTEMI- resolved - Elevated troponin - has normalized - ASA 81 mg PO daily (restarted 05/25) - Plavix 75mg PO daily (held - given drop in Hb) - Crestor 5 mg PO QHS - Cardiology consulted, Dr Gay Leukocytosis- resolved - rpt CXR 05/21: slightly low lung volumes with mild crowded bronchovascular markings and minor bibasilar atelectasis - 05/17 rpt BCx: neg - 05/13/ rpt UCx: yeast - Blood cx 05/21 negative - UA: leuk est 3+, +WBC, +RBC, nitrate - - BCx 05/02/18: negative - UCx 05/06/18: negative - Tracheal Aspirate Cx 05/08/18: yeast - Alvarado changed 05/17 - cooling blanket, ice packs PRN fever - Doppler b/l UE and LE: negative for DVTs Hypernatremia- resolved - 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 Sheikh. <Yann Sheikh - Last Filed: 06/19/18 10:58> Objective - Vital Signs/Intake and Output Vital Signs (last 24 hours): Temp Pulse Resp BP Pulse Ox 98.2 F 61 20 123/65 100 06/19/18 08:07 06/19/18 08:07 06/19/18 08:07 06/19/18 10:14 06/19/18 08:07 Intake and Output: 06/19/18 06/19/18 06:59 18:59 Intake Total 600 600 Output Total 400 250 Balance 200 350 - Medications Medications: Current Medications Acetylcysteine (Acetylcysteine 20%) 4 ml INH RQ4 [facility] Last Admin: 06/19/18 08:23 Dose: 4 ml Albuterol/Ipratropium (Duoneb 3 Mg/0.5 Mg (3 Ml) Ud) 3 ml INH RQ4 [facility] Last Admin: 06/19/18 08:23 Dose: 3 ml Amlodipine Besylate (Norvasc) 10 mg PO DAILY [facility] Last Admin: 06/19/18 10:13 Dose: 10 mg Aspirin (Aspirin Chewable) 81 mg PO DAILY [facility] Last Admin: 06/19/18 10:14 Dose: 81 mg Bisacodyl (Dulcolax) 10 mg AR TID PRN PRN Reason: Constipation Last Admin: 05/10/18 09:45 Dose: 10 mg Clopidogrel Bisulfate (Plavix) 75 mg PO DAILY [facility] Last Admin: 05/22/18 10:07 Dose: 75 mg Dextrose (Dextrose 50% Inj) 0 ml IV STAT PRN; Protocol PRN Reason: Hypoglycemia Protocol Dextrose (Glutose 15) 15 gm PO ONCE PRN; Protocol PRN Reason: Hypoglycemia Protocol Famotidine (Pepcid) 20 mg GT DAILY [facility] Last Admin: 06/19/18 10:14 Dose: 20 mg Glucagon (Glucagen Diagnostic Kit) 1 mg IM STAT PRN; Protocol PRN Reason: Hypoglycemia Protocol Ibuprofen (Motrin Oral Susp) 200 mg PO Q6H PRN PRN Reason: Fever >100.4 F Last Admin: 06/14/18 20:27 Dose: 200 mg Insulin Aspart (Novolog) 0 unit SC ACHS [facility]; Protocol Last Admin: 06/19/18 07:56 Dose: 2 units Insulin Glargine (Lantus) 40 unit SC HS [facility] Last Admin: 06/18/18 21:37 Dose: 40 units Insulin Human Isoph/Insulin Regular (Novolin 70/30 (70/30 Units/Ml) 10 Ml) 15 units SC BID [facility] Last Admin: 06/19/18 10:16 Dose: 15 units Lactulose (Enulose) 20 gm PO DAILY PRN PRN Reason: Constipation Last Admin: 06/16/18 10:04 Dose: 20 gm Metoprolol Tartrate (Lopressor) 75 mg PO BID [facility] Last Admin: 06/19/18 10:14 Dose: 75 mg Rosuvastatin Calcium (Crestor) 5 mg PO [facility] Last Admin: 06/18/18 21:36 Dose: 5 mg Senna/Docusate Sodium (Senokot S 50 Mg-8.6 Mg) 1 tab PO BID [facility] Last Admin: 06/19/18 10:14 Dose: 1 tab Vitamin A (Vitamin A & D Oint Ud Foilpak) 1 ea TOP BID PRN PRN Reason: Dry skin Last Admin: 06/13/18 10:47 Dose: 1 ea - Labs Labs: 06/19/18 07:04 06/19/18 07:04 PT 16.8 SECONDS (9.7-12.2) H 05/28/18 07:15 INR 1.5 05/28/18 07:15 APTT 34 SECONDS (21-34) 05/28/18 07:15 Attending/Attestation - Attestation I have personally seen and examined this patient.: Yes I have fully participated in the care of the patient.: Yes I have reviewed all pertinent clinical information, including history, physical exam and plan: Yes Notes (Text): 06/19/18 10:57 Medical attending: Patient was seen and examined by me. Yesterday there was an GENERAL W[employer]SE WORKER and we came immediately however staff had already cleared out a small mucous in the trach. Currently doing well, her situation is the same from previous. Family members faithfully at the bedside
[2018-06-19] MEDS: Acetylcysteine 20% Inhal Soln (4ml) INH SCH ×6 (03:14→23:57)
[2018-06-19] MEDS: Albuterol-Ipratrop 3 mg / 0.5 (3 ml) UD INH SCH ×6 (03:15→23:57)
[2018-06-19 07:15] LABS: BASO # 0.1 K/uL (0.0-0.2); BASO % 0.8 % (0.0-2.0); EOS # 0.2 K/uL (0.0-0.7); EOS % 2.5 % (0.0-4.0); HEMOGLOBIN 9.4 g/dL (11.0-16.0); LYMPH # 1.9 K/uL (1.0-4.3); LYMPH % 27.5 % (20.0-40.0); MEAN CELL VOLUME 86.6 fL (81.0-99.0); MEAN CORPUSCULAR HEMOGLOBIN 28.7 pg (27.0-31.0); MEAN CORPUSCULAR HGB CONC 33.1 g/dL (33.0-37.0); MEAN PLATELET VOLUME 11.2 fL (7.2-11.7); MONO # 0.5 K/uL (0.0-0.8); MONO % 6.7 % (0.0-10.0); NEUT # 4.4 K/uL (1.8-7.0); NEUT % 62.5 % (50.0-75.0); RBC 3.29 Mil/uL (3.80-5.20); RED CELL DISTRIBUTION WIDTH 17.9 % (11.5-14.5); WHITE BLOOD COUNT 7.1 K/uL (4.8-10.8)
[2018-06-19 07:23] LABS: ALBUMIN 3.3 g/dL (3.5-5.0); ALT/SGPT 43 U/L (9-52); AST/SGOT 39 U/L (14-36); BLOOD UREA NITROGEN 26 mg/dL (7-17); GFR NON-AFRICAN AMERICAN > 60
[2018-06-19] MEDS: (Novolog) Insulin Aspart, Recombinant 100 u/ml 10 ml vial SC SCH ×4 (07:56→21:13)
[2018-06-19] MEDS: Docusate-Senna 50 mg-8.6 mg Tab PO SCH ×2 (10:14→18:17)
[2018-06-19] MEDS: (Novolin 70/30) NPH/Regular 70/30 Units/ml 10 ml vial SC SCH ×2 (10:16→18:11)
[2018-06-19] MEDS: (Lantus) Insulin Glargine, Recombinant SC SCH (21:12)
--- NOTE | 2018-06-20 02:36 | CP.PCM.PN ---
<Arianne Burkett - Last Filed: 06/20/18 02:33> Subjective - Date & Time of Evaluation Date of Evaluation: 06/20/18 Time of Evaluation: 02:33 - Subjective Subjective: PGY-1 Arianne Burkett D.O. Medicine progress note for Dr. Sheikh's service: Patient was seen and examined this morning. She did not appear agitated or in acute distress. Not much change to clinical presentation. Patient makes eye contact and can follow simple commands in Syriac. Mostly resonsive to family at bedside. Still nonverbal. Denies pain by shaking head. Objective - Vital Signs/Intake and Output Vital Signs (last 24 hours): Temp Pulse Resp BP Pulse Ox 98.3 F 78 20 158/71 H 99 06/20/18 00:00 06/20/18 00:00 06/20/18 00:00 06/20/18 00:00 06/20/18 00:00 Intake and Output: 06/19/18 06/20/18 18:59 06:59 Intake Total 1000 600 Output Total 550 350 Balance 450 250 - Medications Medications: Current Medications Acetylcysteine (Acetylcysteine 20%) 4 ml INH RQ4 [facility] Last Admin: 06/19/18 23:57 Dose: 4 ml Albuterol/Ipratropium (Duoneb 3 Mg/0.5 Mg (3 Ml) Ud) 3 ml INH RQ4 [facility] Last Admin: 06/19/18 23:57 Dose: 3 ml Amlodipine Besylate (Norvasc) 10 mg PO DAILY [facility] Last Admin: 06/19/18 10:13 Dose: 10 mg Aspirin (Aspirin Chewable) 81 mg PO DAILY [facility] Last Admin: 06/19/18 10:14 Dose: 81 mg Bisacodyl (Dulcolax) 10 mg [place] TID PRN PRN Reason: Constipation Last Admin: 05/10/18 09:45 Dose: 10 mg Clopidogrel Bisulfate (Plavix) 75 mg PO DAILY [facility] Last Admin: 05/22/18 10:07 Dose: 75 mg Dextrose (Dextrose 50% Inj) 0 ml IV STAT PRN; Protocol PRN Reason: Hypoglycemia Protocol Dextrose (Glutose 15) 15 gm PO ONCE PRN; Protocol PRN Reason: Hypoglycemia Protocol Famotidine (Pepcid) 20 mg GT DAILY [facility] Last Admin: 06/19/18 10:14 Dose: 20 mg Glucagon (Glucagen Diagnostic Kit) 1 mg IM STAT PRN; Protocol PRN Reason: Hypoglycemia Protocol Ibuprofen (Motrin Oral Susp) 200 mg PO Q6H PRN PRN Reason: Fever >100.4 F Last Admin: 06/14/18 20:27 Dose: 200 mg Insulin Aspart (Novolog) 0 unit SC ACHS [facility]; Protocol Last Admin: 06/19/18 21:13 Dose: Not Given Insulin Glargine (Lantus) 40 unit SC [facility] Last Admin: 06/19/18 21:12 Dose: 40 units Insulin Human Isoph/Insulin Regular (Novolin 70/30 (70/30 Units/Ml) 10 Ml) 15 units SC BID [facility] Last Admin: 06/19/18 18:11 Dose: Not Given Metoprolol Tartrate (Lopressor) 75 mg PO BID [facility] Last Admin: 06/19/18 18:10 Dose: Not Given Rosuvastatin Calcium (Crestor) 5 mg PO [facility] Last Admin: 06/19/18 21:12 Dose: 5 mg Senna/Docusate Sodium (Senokot S 50 Mg-8.6 Mg) 1 tab PO BID [facility] Last Admin: 06/19/18 18:17 Dose: 1 tab Vitamin A (Vitamin A & D Oint Ud Foilpak) 1 ea TOP BID PRN PRN Reason: Dry skin Last Admin: 06/13/18 10:47 Dose: 1 ea - Labs Labs: 06/19/18 07:04 06/19/18 07:04 PT 16.8 SECONDS (9.7-12.2) H 05/28/18 07:15 INR 1.5 05/28/18 07:15 APTT 34 SECONDS (21-34) 05/28/18 07:15 - Additional Findings Additional findings: - Constitutional Appears: No Acute Distress, Chronically Ill - Head Exam Head Exam: ATRAUMATIC, NORMAL INSPECTION - Eye Exam Eye Exam: EOMI, Normal appearance, PERRL - Neck Exam Additional comments: trach collar - Respiratory Exam Respiratory Exam: Clear to Ausculation Bilateral, NORMAL BREATHING PATTERN. absent: Respiratory Distress - Cardiovascular Exam Cardiovascular Exam: REGULAR RHYTHM, +S1, +S2 - GI/Abdominal Exam GI & Abdominal Exam: Soft. absent: Tenderness - Rectal Exam Rectal Exam: Deferred - Extremities Exam Extremities Exam: Normal Inspection. absent: Pedal Edema, Tenderness Additional comments: L forearm with clean dry bandages (eschar) - Neurological Exam Neurological Exam: Alert, Awake Neuro motor strength exam: Left Upper Extremity: 4, Right Upper Extremity: 4, Left Lower Extremity: 4, Right Lower Extremity: 4 tracks with eyes appropriately - Skin Skin Exam: Dry, Intact, Normal Color, Warm Assessment and Plan - Assessment and Plan (Free Text) Assessment: Patient is a 52 year old female visiting from with probable past medical history of diabetes mellitus type 2 who was found unresponsive by on 05/01 (reportedly). EMS was called and patient was resuscitated and subsequently intubated on the field and brought to the ED. Code stroke was called, patient was subsequently admitted to ICU for close monitoring and evaluation for anoxic brain injury. Patient was noted on physical exam to have ring monge suggestive of suicidal attempt by hanging. [employer] involved and state high likelihood of s uicidal attempt. patient was treated for sepsis. Patient is s/p tracheostomy and PEG. Downgraded to telemetry. Recently able to be weaned of ventilator to trach collar w/ humidified oxygen. Patient now responds to commands, opening eyes, tracking. She will need extensive physical therapy. Additionally, Per speech, patient may need adjustment of trach tube. Per ENT, patient vocal cords functional, consider weaning of O2. Attempted no supplemental O2 06/18 for approximately 5 minutes. Patient remained O2 saturating > 96% the entire time; however, she subsequently developed mucus plug that needed suctioning. Plan: Anoxic Brain Injury- improving clinically - GCS improving, now 12 - Aspiration precautions - Seizure precautions - Turn and reposition q2h - EEG 05/04: diffuse encephalopathy with burst suppression. - Repeat EEG: severe non specific diffuse distrubances in cortical activity, brown matter dysfunction - Repeat CT head: no bleeding - MRI Brain: subacute favored over acute cerebral hypoxic insult with minimal involvement of the lower haris and the cerebellar hemispheres - S/p trach and PEG - Consider removal of trach - Aggressive PT/OT/ST - Neurology consulted, Dr. Duff/Guilherme Acute Renal Injury with oliguria- improving - Likely due to dehydration - No hemodialysis needed - Nephrology consulted, Dr. Samuels Transaminitis- improving - Likely shock liver - Follow LFTs Constipation - Senokot BID - Dulcolax 10 mg MN TID PRN - Lactulose 20 mg PO daily PRN Type 2 diabetes mellitus- chronic - Blood sugars remain elevated in high 200s to 300s - insulin increased 2/2 to D5W @75ml/hr started on 06/02 - Lantus 40 Units SC QHS - Novolin 70/30 15 units BID - Accuchecks ACHS - ISS high dose - Hypoglycemic protocol Hypertension- chronic, stable - No pressors (was previously hypotensive) - Increase IVF to rate of 150 mL/hr - Metoprolol Tartrate 75 mg PO BID- holding parameters - Norvasc 10 mg PO daily- holding parameters Respiratory Failure- resolved - Due to Asphyxiation - Laryngoscopy 06/18- vocal cords functional - s/p tracheotomy - Consider removal of trach - Mucomyst Q4 H - Duonebs Q4H - Suction prn - Humidified O2, continue to wean as tolerated Fevers- resolved - Afebrile since 06/04 - Ice packs, cooling blanket - Sputum cultures 05/25 - yeast - D/c meropenum 1g Q8H & flaggyl 500mg Q8H (total 13 days of treatment) - Motrin 200 mg Q6H PRN - Off abx NSTEMI- resolved - Elevated troponin- has normalized - ASA 81 mg PO daily (restarted 05/25) - Plavix 75mg PO daily (held - given drop in Hb) - Crestor 5 mg PO QHS - Cardiology consulted, Dr Gay Leukocytosis- resolved - Rep CXR 05/21: slightly low lung volumes with mild crowded bronchovascular markings and minor bibasilar atelectasis - 05/17 rpt BCx: neg - 05/13 rpt UCx: yeast - Blood cx 05/21 negative - UA: leuk est 3+, +WBC, +RBC, nitrate - - BCx 05/02/18: negative - UCx 05/06/18: negative - Tracheal Aspirate Cx 05/08/18: yeast - Alvarado changed 05/17 - Doppler b/l UE and LE: negative for DVTs Hypernatremia- resolved - 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 Sheikh. <Yann Sheikh H - Last Filed: 06/20/18 14:27> Objective - Vital Signs/Intake and Output Vital Signs (last 24 hours): Temp Pulse Resp BP Pulse Ox 98.6 F 106 H 20 150/70 99 06/20/18 08:21 06/20/18 08:21 06/20/18 08:21 06/20/18 09:59 06/20/18 08:21 Intake and Output: 06/20/18 06/20/18 06:59 18:59 Intake Total 1200 600 Output Total 850 Balance 350 600 - Medications Medications: Current Medications Acetylcysteine (Acetylcysteine 20%) 4 ml INH RQ4 [facility] Last Admin: 06/20/18 11:35 Dose: 4 ml Albuterol/Ipratropium (Duoneb 3 Mg/0.5 Mg (3 Ml) Ud) 3 ml INH RQ4 [facility] Last Admin: 06/20/18 11:35 Dose: 3 ml Amlodipine Besylate (Norvasc) 10 mg PO DAILY [facility] Last Admin: 06/20/18 10:01 Dose: 10 mg Aspirin (Aspirin Chewable) 81 mg PO DAILY [facility] Last Admin: 06/20/18 09:59 Dose: 81 mg Bisacodyl (Dulcolax) 10 mg MN TID PRN PRN Reason: Constipation Last Admin: 05/10/18 09:45 Dose: 10 mg Clopidogrel Bisulfate (Plavix) 75 mg PO DAILY [facility] Last Admin: 05/22/18 10:07 Dose: 75 mg Dextrose (Dextrose 50% Inj) 0 ml IV STAT PRN; Protocol PRN Reason: Hypoglycemia Protocol Dextrose (Glutose 15) 15 gm PO ONCE PRN; Protocol PRN Reason: Hypoglycemia Protocol Famotidine (Pepcid) 20 mg GT DAILY [facility] Last Admin: 06/20/18 10:01 Dose: 20 mg Glucagon (Glucagen Diagnostic Kit) 1 mg IM STAT PRN; Protocol PRN Reason: Hypoglycemia Protocol Ibuprofen (Motrin Oral Susp) 200 mg PO Q6H PRN PRN Reason: Fever >100.4 F Last Admin: 06/14/18 20:27 Dose: 200 mg Insulin Aspart (Novolog) 0 unit SC ACHS [facility]; Protocol Last Admin: 06/20/18 11:24 Dose: Not Given Insulin Glargine (Lantus) 40 unit SC HS [facility] Last Admin: 06/19/18 21:12 Dose: 40 units Insulin Human Isoph/Insulin Regular (Novolin 70/30 (70/30 Units/Ml) 10 Ml) 15 units SC BID [facility] Last Admin: 06/20/18 10:01 Dose: 15 units Metoprolol Tartrate (Lopressor) 75 mg PO BID [facility] Last Admin: 06/20/18 09:59 Dose: 75 mg Rosuvastatin Calcium (Crestor) 5 mg PO HS [facility] Last Admin: 06/19/18 21:12 Dose: 5 mg Senna/Docusate Sodium (Senokot S 50 Mg-8.6 Mg) 1 tab PO BID [facility] Last Admin: 06/20/18 10:01 Dose: 1 tab Vitamin A (Vitamin A & D Oint Ud Foilpak) 1 ea TOP BID PRN PRN Reason: Dry skin Last Admin: 06/13/18 10:47 Dose: 1 ea - Labs Labs: 06/20/18 06:58 06/20/18 06:58 PT 16.8 SECONDS (9.7-12.2) H 05/28/18 07:15 INR 1.5 05/28/18 07:15 APTT 34 SECONDS (21-34) 05/28/18 07:15 Attending/Attestation - Attestation I have personally seen and examined this patient.: Yes I have fully participated in the care of the patient.: Yes I have reviewed all pertinent clinical information, including history, physical exam and plan: Yes Notes (Text): 06/20/18 14:25 Medical attending: Patient was seen and examined by me. Agree with the above note by the resident Previously there was an [employer] SUPERVISOR secondary to mucus plugging in the tracheostomy and it was cleared out and patient did well. The patient's trach and breathing today is ok She is trying to look when her name is called Moving both arms. Unable to move fingers or hands Today a daughter and patient's at bedside thank you Yann Sheikh
[2018-06-20] MEDS: Acetylcysteine 20% Inhal Soln (4ml) INH SCH ×5 (03:31→19:41)
[2018-06-20] MEDS: Albuterol-Ipratrop 3 mg / 0.5 (3 ml) UD INH SCH ×5 (03:31→19:41)
[2018-06-20 07:16] LABS: BASO # 0.1 K/uL (0.0-0.2); BASO % 0.7 % (0.0-2.0); EOS # 0.1 K/uL (0.0-0.7); EOS % 0.9 % (0.0-4.0); HEMOGLOBIN 10.2 g/dL (11.0-16.0); LYMPH # 1.3 K/uL (1.0-4.3); LYMPH % 13.2 % (20.0-40.0); MEAN CELL VOLUME 86.4 fL (81.0-99.0); MEAN CORPUSCULAR HEMOGLOBIN 28.2 pg (27.0-31.0); MEAN CORPUSCULAR HGB CONC 32.7 g/dL (33.0-37.0); MEAN PLATELET VOLUME 11.7 fL (7.2-11.7); MONO # 0.7 K/uL (0.0-0.8); MONO % 6.8 % (0.0-10.0); NEUT # 7.9 K/uL (1.8-7.0); NEUT % 78.4 % (50.0-75.0); RBC 3.6 Mil/uL (3.80-5.20); RED CELL DISTRIBUTION WIDTH 17.7 % (11.5-14.5); WHITE BLOOD COUNT 10.1 K/uL (4.8-10.8)
[2018-06-20 07:22] LABS: ALBUMIN 3.6 g/dL (3.5-5.0); ALT/SGPT 51 U/L (9-52); AST/SGOT 51 U/L (14-36); BLOOD UREA NITROGEN 24 mg/dL (7-17); CALCIUM 9.4 mg/dl (8.6-10.4); GFR NON-AFRICAN AMERICAN > 60
[2018-06-20] MEDS: (Novolog) Insulin Aspart, Recombinant 100 u/ml 10 ml vial SC SCH ×4 (07:43→22:28)
[2018-06-20] MEDS: (Novolin 70/30) NPH/Regular 70/30 Units/ml 10 ml vial SC SCH ×2 (10:01→17:20)
[2018-06-20] MEDS: Docusate-Senna 50 mg-8.6 mg Tab PO SCH ×2 (10:01→17:27)
[2018-06-20] MEDS: (Lantus) Insulin Glargine, Recombinant SC SCH (22:31)
[2018-06-21] MEDS: Acetylcysteine 20% Inhal Soln (4ml) INH SCH ×4 (00:10→11:21)
[2018-06-21] MEDS: Albuterol-Ipratrop 3 mg / 0.5 (3 ml) UD INH SCH ×7 (00:10→19:24)
[2018-06-21 06:44] LABS: BASO % 0.4 % (0.0-2.0); EOS # 0.2 K/uL (0.0-0.7); EOS % 2.6 % (0.0-4.0); HEMOGLOBIN 9.9 g/dL (11.0-16.0); LYMPH % 27.9 % (20.0-40.0); MEAN CELL VOLUME 87.3 fL (81.0-99.0); MEAN CORPUSCULAR HEMOGLOBIN 28.5 pg (27.0-31.0); MEAN CORPUSCULAR HGB CONC 32.7 g/dL (33.0-37.0); MEAN PLATELET VOLUME 11.9 fL (7.2-11.7); MONO # 0.5 K/uL (0.0-0.8); MONO % 6.9 % (0.0-10.0); NEUT # 4.6 K/uL (1.8-7.0); NEUT % 62.2 % (50.0-75.0); RBC 3.47 Mil/uL (3.80-5.20); RED CELL DISTRIBUTION WIDTH 17.6 % (11.5-14.5); WHITE BLOOD COUNT 7.3 K/uL (4.8-10.8)
[2018-06-21 07:00] LABS: ALBUMIN 3.5 g/dL (3.5-5.0); ALT/SGPT 70 U/L (9-52); AST/SGOT 65 U/L (14-36); BLOOD UREA NITROGEN 25 mg/dL (7-17); CALCIUM 9.4 mg/dl (8.6-10.4); GFR NON-AFRICAN AMERICAN > 60
--- NOTE | 2018-06-21 08:04 | CP.PCM.PN ---
<Montez Miles - Last Filed: 06/21/18 18:09> Subjective - Date & Time of Evaluation Date of Evaluation: 06/21/18 Time of Evaluation: 08:03 - Subjective Subjective: PGY-1 Medicine Progress Note for Dr. Negrete Patient seen and examined at bedside this AM. No acute overnight events reported. Patient remains nonverbal but responds appropriately to tactile/verbal stimuli. Makes eye contact, follows commands given by son at bedside in [place]ian. Objective - Vital Signs/Intake and Output Vital Signs (last 24 hours): Temp Pulse Resp BP Pulse Ox 98.2 F 83 20 153/96 H 100 06/21/18 00:00 06/21/18 00:00 06/21/18 00:00 06/21/18 00:00 06/21/18 00:00 Intake and Output: 06/21/18 06/21/18 06:59 18:59 Intake Total 600 400 Output Total 300 320 Balance 300 80 - Medications Medications: Current Medications Acetylcysteine (Acetylcysteine 20%) 4 ml INH RQ4 [facility] Last Admin: 06/21/18 03:14 Dose: 4 ml Albuterol/Ipratropium (Duoneb 3 Mg/0.5 Mg (3 Ml) Ud) 3 ml INH RQ4 [facility] Last Admin: 06/21/18 03:14 Dose: 3 ml Amlodipine Besylate (Norvasc) 10 mg PO DAILY [facility] Last Admin: 06/20/18 10:01 Dose: 10 mg Aspirin (Aspirin Chewable) 81 mg PO DAILY [facility] Last Admin: 06/20/18 09:59 Dose: 81 mg Bisacodyl (Dulcolax) 10 mg CO TID PRN PRN Reason: Constipation Last Admin: 05/10/18 09:45 Dose: 10 mg Clopidogrel Bisulfate (Plavix) 75 mg PO DAILY [facility] Last Admin: 05/22/18 10:07 Dose: 75 mg Dextrose (Dextrose 50% Inj) 0 ml IV STAT PRN; Protocol PRN Reason: Hypoglycemia Protocol Dextrose (Glutose 15) 15 gm PO ONCE PRN; Protocol PRN Reason: Hypoglycemia Protocol Famotidine (Pepcid) 20 mg GT DAILY [facility] Last Admin: 06/20/18 10:01 Dose: 20 mg Glucagon (Glucagen Diagnostic Kit) 1 mg IM STAT PRN; Protocol PRN Reason: Hypoglycemia Protocol Ibuprofen (Motrin Oral Susp) 200 mg PO Q6H PRN PRN Reason: Fever >100.4 F Last Admin: 06/14/18 20:27 Dose: 200 mg Insulin Aspart (Novolog) 0 unit SC [facility]; Protocol Last Admin: 06/20/18 22:28 Dose: Not Given Insulin Glargine (Lantus) 40 unit SC [facility] Last Admin: 06/20/18 22:31 Dose: 40 units Insulin Human Isoph/Insulin Regular (Novolin 70/30 (70/30 Units/Ml) 10 Ml) 15 units SC BID [facility] Last Admin: 06/20/18 17:20 Dose: Not Given Metoprolol Tartrate (Lopressor) 75 mg PO BID [facility] Last Admin: 06/20/18 17:26 Dose: 75 mg Rosuvastatin Calcium (Crestor) 5 mg PO HS [facility] Last Admin: 06/20/18 22:31 Dose: 5 mg Senna/Docusate Sodium (Senokot S 50 Mg-8.6 Mg) 1 tab PO BID [facility] Last Admin: 06/20/18 17:27 Dose: 1 tab Vitamin A (Vitamin A & D Oint Ud Foilpak) 1 ea TOP BID PRN PRN Reason: Dry skin Last Admin: 06/13/18 10:47 Dose: 1 ea - Labs Labs: 06/21/18 06:32 06/21/18 06:32 PT 16.8 SECONDS (9.7-12.2) H 05/28/18 07:15 INR 1.5 05/28/18 07:15 APTT 34 SECONDS (21-34) 05/28/18 07:15 - Constitutional Appears: No Acute Distress, Chronically Ill - Head Exam Head Exam: ATRAUMATIC, NORMAL INSPECTION, NORMOCEPHALIC - Eye Exam Eye Exam: EOMI, Normal appearance - Neck Exam Additional comments: trach collar in place, patent and fully functioning, no secretions noted - Respiratory Exam Respiratory Exam: Clear to Ausculation Bilateral, NORMAL BREATHING PATTERN. absent: Accessory Muscle Use, Rales, Rhonchi, Wheezes, Respiratory Distress, Stridor - Cardiovascular Exam Cardiovascular Exam: REGULAR RHYTHM, +S1, +S2 - GI/Abdominal Exam GI & Abdominal Exam: Soft, Normal Bowel Sounds. absent: Distended, Firm, Guarding, Rigid, Tenderness - Extremities Exam Extremities Exam: Normal Capillary Refill, Normal Inspection. absent: Pedal Jam ma - Neurological Exam Neurological Exam: Alert, Awake Additional comments: tracks with eyes appropriately, nonverbal but follows commands given by son in [place]ian. Response to verbal and tactile stimuli. - Skin Skin Exam: Dry, Intact, Normal Color, Warm Assessment and Plan - Assessment and Plan (Free Text) Assessment: 52 yo F with PMHx of DM type II visiting from the [place] reported to be found unresponsive by on 05/01. Patient intubated on field, brought to ED where CODE STROKE was called. Admitted to ICU for evaluation/monitoring of anoxic brain injury. Patient noted on exam to have ring monge suggestive of attempted suicidal attempt by hanging. [employer] made aware of case and confirm high likelihood of suicide attempt. Patient s/p tracheostomy and PED tube feeding. Patient weaned off ventilator to trach collar with humidified oxygen. Downgraded to telemetry for further monitoring. Will need extensive PT. Per ENT, vocal cords functional, consider weaning off O2. Attempted no supplemental O2 06/18 for approximately 5 minutes. Patient remained O2 saturating > 96% the entire time; however, she subsequently developed mucus plug that needed suctioning. Remains on trach collar at this time with further evaluation. Plan: Anoxic Brain Injury- improving clinically - GCS improving, now 12 - Aspiration precautions - Seizure precautions - Turn and reposition q2h - Patient s/p trach collar and PEG tube -wean off O2, f/u Pulm (Dr. Brennan) re: removal of trach collar -Aggressive PT/OT/ST - Neurology on case, Dr. Duff/Guilherme Acute Renal Injury with oliguria- improving - Likely due to dehydration - No HD needed - Nephrology recs (Dr. 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 -Na 149 (06/21) -100cc water flush in peg tube TID x 2 days -continue to monitor, correct as needed Transaminitis- improving - Likely shock liver - Continue to trend LFTs Constipation - Senokot BID - Dulcolax 10 mg CO TID PRN - Lactulose 20 mg PO daily PRN Type 2 diabetes mellitus- chronic - Lantus 40 Units SC QHS - Novolin 70/30 15 units BID - ISS high dose - Accuchecks ACHS - Hypoglycemic protocol Hypertension- chronic, stable - No pressors (was previously hypotensive) - Norvasc 10 mg PO daily Respiratory Failure resolved - Due to Asphyxiation - Laryngoscopy (06/18): vocal cords functional - s/p tracheotomy - Consider removal of trach collar - Mucomyst Q4H d/c'd (06/21) - Duonebs Q4H - Suction prn - Humidified O2, continue to wean as tolerated Fevers resolved - Afebrile since 06/04, currently off Abx - Ice packs, cooling blanket - Sputum cultures (05/25): yeast - s/p meropenum 1g Q8H & flagyl 500mg Q8H (total 13 days of treatment) - Motrin 200 mg Q6H PRN NSTEMI resolved - Elevated troponin- has normalized - ASA 81 mg PO daily (restarted 05/25) - Plavix 75mg PO daily (held - given drop in Hb) - Crestor 5 mg PO QHS - Cardiology consulted (Dr Gay) Leukocytosis resolved - Repeat CXR (05/21): slightly low lung volumes with mild crowded bronchovascular markings and minor bibasilar atelectasis - BCx (05/02): no growth - Repeat BCx (05/17): no growth - UA: leuk est 3+, +WBC, +RBC, nitrate - - UCx 05/06/18: no growth -repeat UCx (05/13, 05/17): yeast species - Tracheal Aspirate Cx 05/08/18: yeast - Alvarado changed 05/17 - Doppler b/l UE and LE: negative for DVTs Hyperkalemia resolved - Continue to monitor, correct as needed PPx, Diet, Disposition - DVT ppx: Heparin 5,000 Units SC Q8H - GI ppx: Pepcid 20mg GT daily - Diet: Tube feed, Vital 1.2 - Vitamin A&D - Code status: full code Case discussed with Dr. Caden Miles DO, PGY-1 <Emmett Negrete - Last Filed: 06/22/18 18:29> Objective - Vital Signs/Intake and Output Vital Signs (last 24 hours): Temp Pulse Resp BP Pulse Ox 97.8 F 52 L 22 121/75 100 06/22/18 16:00 06/22/18 16:00 06/22/18 16:00 06/22/18 18:12 06/22/18 16:00 Intake and Output: 06/22/18 06/22/18 06:59 18:59 Intake Total 600 600 Output Total 300 400 Balance 300 200 - Medications Medications: Current Medications Albuterol/Ipratropium (Duoneb 3 Mg/0.5 Mg (3 Ml) Ud) 3 ml INH RQ4 [facility] Last Admin: 06/22/18 11:45 Dose: 3 ml Amlodipine Besylate (Norvasc) 10 mg PO DAILY [facility] Last Admin: 06/22/18 10:36 Dose: 10 mg Aspirin (Aspirin Chewable) 81 mg PO DAILY [facility] Last Admin: 06/22/18 10:36 Dose: 81 mg Bisacodyl (Dulcolax) 10 mg CO TID PRN PRN Reason: Constipation Last Admin: 05/10/18 09:45 Dose: 10 mg Clopidogrel Bisulfate (Plavix) 75 mg PO DAILY [facility] Last Admin: 05/22/18 10:07 Dose: 75 mg Dextrose (Dextrose 50% Inj) 0 ml IV STAT PRN; Protocol PRN Reason: Hypoglycemia Protocol Last Admin: 06/21/18 16:15 Dose: 50 ml Dextrose (Glutose 15) 15 gm PO ONCE PRN; Protocol PRN Reason: Hypoglycemia Protocol Famotidine (Pepcid) 20 mg GT DAILY [facility] Last Admin: 06/22/18 10:36 Dose: 20 mg Glucagon (Glucagen Diagnostic Kit) 1 mg IM STAT PRN; Protocol PRN Reason: Hypoglycemia Protocol Ibuprofen (Motrin Oral Susp) 200 mg PO Q6H PRN PRN Reason: Fever >100.4 F Last Admin: 06/14/18 20:27 Dose: 200 mg Insulin Aspart (Novolog) 0 unit [facility]; Protocol Last Admin: 06/22/18 13:03 Dose: 2 units Insulin Glargine (Lantus) 40 unit SC HS [facility] Last Admin: 06/21/18 21:36 Dose: Not Given Insulin Human Isoph/Insulin Regular (Novolin 70/30 (70/30 Units/Ml) 10 Ml) 15 units SC BID [facility] Last Admin: 06/22/18 18:19 Dose: 15 units Metoprolol Tartrate (Lopressor) 75 mg PO BID [facility] Last Admin: 06/22/18 18:12 Dose: 75 mg Rosuvastatin Calcium (Crestor) 5 mg PO HS [facility] Last Admin: 06/21/18 21:32 Dose: 5 mg Senna/Docusate Sodium (Senokot S 50 Mg-8.6 Mg) 1 tab PO BID [facility] Last Admin: 06/22/18 18:13 Dose: 1 tab Vitamin A (Vitamin A & D Oint Ud Foilpak) 1 ea TOP BID PRN PRN Reason: Dry skin Last Admin: 06/13/18 10:47 Dose: 1 ea - Labs Labs: 06/22/18 06:48 06/22/18 06:48 PT 16.8 SECONDS (9.7-12.2) H 05/28/18 07:15 INR 1.5 05/28/18 07:15 APTT 34 SECONDS (21-34) 05/28/18 07:15 Attending/Attestation - Attestation I have personally seen and examined this patient.: Yes I have fully participated in the care of the patient.: Yes I have reviewed all pertinent clinical information, including history, physical exam and plan: Yes
[2018-06-21] MEDS: (Novolog) Insulin Aspart, Recombinant 100 u/ml 10 ml vial SC SCH ×4 (08:24→21:32)
[2018-06-21] MEDS: (Novolin 70/30) NPH/Regular 70/30 Units/ml 10 ml vial SC SCH ×2 (10:33→18:45)
[2018-06-21] MEDS: Docusate-Senna 50 mg-8.6 mg Tab PO SCH ×2 (11:03→18:20)
[2018-06-21] MEDS: (Lantus) Insulin Glargine, Recombinant SC SCH (21:36)
[2018-06-22] MEDS: Albuterol-Ipratrop 3 mg / 0.5 (3 ml) UD INH SCH ×5 (00:50→19:17)
[2018-06-22 07:02] LABS: BASO % 0.6 % (0.0-2.0); EOS # 0.2 K/uL (0.0-0.7); EOS % 3.9 % (0.0-4.0); HEMOGLOBIN 9.7 g/dL (11.0-16.0); LYMPH # 1.5 K/uL (1.0-4.3); LYMPH % 24.4 % (20.0-40.0); MEAN CORPUSCULAR HEMOGLOBIN 27.6 pg (27.0-31.0); MEAN CORPUSCULAR HGB CONC 31.4 g/dL (33.0-37.0); MONO # 0.3 K/uL (0.0-0.8); MONO % 5.6 % (0.0-10.0); NEUT # 4.1 K/uL (1.8-7.0); NEUT % 65.5 % (50.0-75.0); NRBC % 0.1 % (0.0-2.0); RBC 3.53 Mil/uL (3.80-5.20); RED CELL DISTRIBUTION WIDTH 17.7 % (11.5-14.5); WHITE BLOOD COUNT 6.2 K/uL (4.8-10.8)
[2018-06-22 07:28] LABS: ALBUMIN 3.4 g/dL (3.5-5.0); ALT/SGPT 60 U/L (9-52); AST/SGOT 43 U/L (14-36); BLOOD UREA NITROGEN 29 mg/dL (7-17); CALCIUM 8.9 mg/dl (8.6-10.4); GFR NON-AFRICAN AMERICAN > 60
--- NOTE | 2018-06-22 07:33 | CP.PCM.PN ---
<Montez Miles - Last Filed: 06/22/18 15:52> Subjective - Date & Time of Evaluation Date of Evaluation: 06/22/18 Time of Evaluation: 07:32 - Subjective Subjective: PGY-1 Medicine Progress Note for Dr. Negrete Patient seen and examined at bedside this AM. No acute overnight events reported. Patient continues to improve, attempts to verbalize words. Alert, responding appropriately to commands given by son. 12 pt ROS unattainable due to patient's clinical status. Objective - Vital Signs/Intake and Output Vital Signs (last 24 hours): Temp Pulse Resp BP Pulse Ox 97.9 F 59 L 20 119/66 98 06/22/18 00:00 06/21/18 16:00 06/22/18 00:00 06/22/18 00:00 06/22/18 00:00 Intake and Output: 06/22/18 06/22/18 06:59 18:59 Intake Total 600 Output Total 300 Balance 300 - Medications Medications: Current Medications Albuterol/Ipratropium (Duoneb 3 Mg/0.5 Mg (3 Ml) Ud) 3 ml INH RQ4 [facility] Last Admin: 06/22/18 03:12 Dose: 3 ml Amlodipine Besylate (Norvasc) 10 mg PO DAILY [facility] Last Admin: 06/21/18 10:32 Dose: 10 mg Aspirin (Aspirin Chewable) 81 mg PO DAILY [facility] Last Admin: 06/21/18 10:32 Dose: 81 mg Bisacodyl (Dulcolax) 10 mg AL TID PRN PRN Reason: Constipation Last Admin: 05/10/18 09:45 Dose: 10 mg Clopidogrel Bisulfate (Plavix) 75 mg PO DAILY [facility] Last Admin: 05/22/18 10:07 Dose: 75 mg Dextrose (Dextrose 50% Inj) 0 ml IV STAT PRN; Protocol PRN Reason: Hypoglycemia Protocol Last Admin: 06/21/18 16:15 Dose: 50 ml Dextrose (Glutose 15) 15 gm PO ONCE PRN; Protocol PRN Reason: Hypoglycemia Protocol Famotidine (Pepcid) 20 mg GT DAILY [facility] Last Admin: 06/21/18 10:32 Dose: 20 mg Glucagon (Glucagen Diagnostic Kit) 1 mg IM STAT PRN; Protocol PRN Reason: Hypoglycemia Protocol Ibuprofen (Motrin Oral Susp) 200 mg PO Q6H PRN PRN Reason: Fever >100.4 F Last Admin: 06/14/18 20:27 Dose: 200 mg Insulin Aspart (Novolog) 0 unit SC [facility]; Protocol Last Admin: 06/21/18 21:32 Dose: Not Given Insulin Glargine (Lantus) 40 unit SC HS [facility] Last Admin: 06/21/18 21:36 Dose: Not Given Insulin Human Isoph/Insulin Regular (Novolin 70/30 (70/30 Units/Ml) 10 Ml) 15 units SC BID [facility] Last Admin: 06/21/18 18:45 Dose: Not Given Metoprolol Tartrate (Lopressor) 75 mg PO BID [facility] Last Admin: 06/21/18 18:21 Dose: 75 mg Rosuvastatin Calcium (Crestor) 5 mg PO HS [facility] Last Admin: 06/21/18 21:32 Dose: 5 mg Senna/Docusate Sodium (Senokot S 50 Mg-8.6 Mg) 1 tab PO BID [facility] Last Admin: 06/21/18 18:20 Dose: 1 tab Vitamin A (Vitamin A & D Oint Ud Foilpak) 1 ea TOP BID PRN PRN Reason: Dry skin Last Admin: 06/13/18 10:47 Dose: 1 ea - Labs Labs: 06/22/18 06:48 06/22/18 06:48 PT 16.8 SECONDS (9.7-12.2) H 05/28/18 07:15 INR 1.5 05/28/18 07:15 APTT 34 SECONDS (21-34) 05/28/18 07:15 - Constitutional Appears: No Acute Distress, Chronically Ill - Head Exam Head Exam: ATRAUMATIC, NORMAL INSPECTION, NORMOCEPHALIC - Eye Exam Eye Exam: EOMI, Normal appearance, PERRL - ENT Exam ENT Exam: Normal Exam - Neck Exam Additional comments: trach collar in place, patent and fully functioning, no secretions noted - Respiratory Exam Respiratory Exam: Clear to Ausculation Bilateral, NORMAL BREATHING PATTERN. absent: Accessory Muscle Use, Respiratory Distress - Cardiovascular Exam Cardiovascular Exam: REGULAR RHYTHM, +S1, +S2 - GI/Abdominal Exam GI & Abdominal Exam: Soft, Normal Bowel Sounds. absent: Distended, Firm, Guarding, Rigid, Tenderness, Organomegaly - Extremities Exam Extremities Exam: Normal Capillary Refill, Normal Inspection. absent: Calf Tenderness, Pedal Edema - Neurological Exam Neurological Exam: Alert, Awake Additional comments: tracks with eyes appropriately, nonverbal but follows commands given by son in [place]. Response to verbal and tactile stimuli. - Skin Skin Exam: Dry, Intact, Normal Color, Warm Assessment and Plan - Assessment and Plan (Free Text) Assessment: 52 yo F with PMHx of DM type II visiting from [place] [facility] [place] reported to be found unresponsive by on 05/01. Patient intubated on field, brought to ED where CODE STROKE was called. Admitted to ICU for evaluation/monitoring of anoxic brain injury. Patient noted on exam to have ring monge suggestive of attempted suicidal attempt by hanging. [employer] made aware of case and confirm high likelihood of suicide attempt. Patient s/p tracheostomy and PED tube feeding. Patient weaned off ventilator to trach collar with humidified oxygen. Downgraded to telemetry for further monitoring. Will need extensive PT. Per ENT, vocal cords functional, consider weaning off O2. Attempted no supplemental O2 06/18 for approximately 5 minutes. Patient remained O2 saturating > 96% the entire time; however, she subsequently developed mucus plug that needed suctioning. Remains on trach collar at this time with further evaluation. Plan: Anoxic Brain Injury- improving clinically - Aspiration precautions - Seizure precautions - Turn and reposition q2h - Patient s/p trach collar and PEG tube -wean off O2 -per recs (Dr. Brennan), switch patient out to fenestrated trach collar and monitor -Aggressive PT/OT/ST - Neurology on case, Dr. Duff/Guilherme Acute Renal Injury with oliguria- improving - Likely due to dehydration - No HD needed - Nephrology recs (Dr. 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 -Na 143 (06/22) -100cc water flush in peg tube TID x 2 days -continue to monitor, correct as needed Transaminitis- improving - Likely shock liver - Continue to trend LFTs Constipation - Senokot BID - Dulcolax 10 mg AL TID PRN - Lactulose 20 mg PO daily PRN Type 2 diabetes mellitus- chronic - Lantus 40 Units SC QHS - Novolin 70/30 15 units BID - ISS high dose - Accuchecks ACHS - Hypoglycemic protocol Hypertension- chronic, stable - No pressors (was previously hypotensive) - Norvasc 10 mg PO daily Respiratory Failure resolved - Due to Asphyxiation - Laryngoscopy (06/18): vocal cords functional - s/p tracheotomy - Consider removal of trach collar - Mucomyst Q4H d/c'd (06/21) - Duonebs Q4H - Suction prn - Humidified O2, continue to wean as tolerated Fevers resolved - Afebrile since 06/04, currently off Abx - Ice packs, cooling blanket - Sputum cultures (05/25): yeast - s/p meropenum 1g Q8H & flagyl 500mg Q8H (total 13 days of treatment) - Motrin 200 mg Q6H PRN NSTEMI resolved - Elevated troponin- has normalized - ASA 81 mg PO daily (restarted 05/25) - Plavix 75mg PO daily (held - given drop in Hb) - Crestor 5 mg PO QHS - Cardiology consulted (Dr Gay) Leukocytosis resolved - Repeat CXR (05/21): slightly low lung volumes with mild crowded broncho vascular markings and minor bibasilar atelectasis - BCx (05/02): no growth - Repeat BCx (05/17): no growth - UA: leuk est 3+, +WBC, +RBC, nitrate - - UCx 05/06/18: no growth -repeat UCx (05/13, 05/17): yeast species - Tracheal Aspirate Cx 05/08/18: yeast - Alvarado changed 05/17 - Doppler b/l UE and LE: negative for DVTs Hyperkalemia resolved - Continue to monitor, correct as needed PPx, Diet, Disposition - DVT ppx: Heparin 5,000 Units SC Q8H - GI ppx: Pepcid 20mg GT daily - Diet: Tube feed, Vital 1.2 - Vitamin A&D - Code status: full code Case discussed with Dr. Caden Miles DO, PGY-1 <Emmett Negrete - Last Filed: 06/22/18 17:06> Objective - Vital Signs/Intake and Output Vital Signs (last 24 hours): Temp Pulse Resp BP Pulse Ox 97.8 F 52 L 22 123/73 100 06/22/18 16:00 06/22/18 16:00 06/22/18 16:00 06/22/18 16:00 06/22/18 16:00 Intake and Output: 06/22/18 06/22/18 06:59 18:59 Intake Total 600 600 Output Total 300 400 Balance 300 200 - Medications Medications: Current Medications Albuterol/Ipratropium (Duoneb 3 Mg/0.5 Mg (3 Ml) Ud) 3 ml INH RQ4 [facility] Last Admin: 06/22/18 11:45 Dose: 3 ml Amlodipine Besylate (Norvasc) 10 mg PO DAILY [facility] Last Admin: 06/22/18 10:36 Dose: 10 mg Aspirin (Aspirin Chewable) 81 mg PO DAILY [facility] Last Admin: 06/22/18 10:36 Dose: 81 mg Bisacodyl (Dulcolax) 10 mg AL TID PRN PRN Reason: Constipation Last Admin: 05/10/18 09:45 Dose: 10 mg Clopidogrel Bisulfate (Plavix) 75 mg PO DAILY [facility] Last Admin: 05/22/18 10:07 Dose: 75 mg Dextrose (Dextrose 50% Inj) 0 ml IV STAT PRN; Protocol PRN Reason: Hypoglycemia Protocol Last Admin: 06/21/18 16:15 Dose: 50 ml Dextrose (Glutose 15) 15 gm PO ONCE PRN; Protocol PRN Reason: Hypoglycemia Protocol Famotidine (Pepcid) 20 mg GT DAILY [facility] Last Admin: 06/22/18 10:36 Dose: 20 mg Glucagon (Glucagen Diagnostic Kit) 1 mg IM STAT PRN; Protocol PRN Reason: Hypoglycemia Protocol Ibuprofen (Motrin Oral Susp) 200 mg PO Q6H PRN PRN Reason: Fever >100.4 F Last Admin: 06/14/18 20:27 Dose: 200 mg Insulin Aspart (Novolog) 0 unit SC [facility]; Protocol Last Admin: 06/22/18 13:03 Dose: 2 units Insulin Glargine (Lantus) 40 unit SC [facility] Last Admin: 06/21/18 21:36 Dose: Not Given Insulin Human Isoph/Insulin Regular (Novolin 70/30 (70/30 Units/Ml) 10 Ml) 15 units SC BID [facility] Last Admin: 06/22/18 10:40 Dose: 15 units Metoprolol Tartrate (Lopressor) 75 mg PO BID [facility] Last Admin: 06/22/18 10:35 Dose: 75 mg Rosuvastatin Calcium (Crestor) 5 mg PO HS [facility] Last Admin: 06/21/18 21:32 Dose: 5 mg Senna/Docusate Sodium (Senokot S 50 Mg-8.6 Mg) 1 tab PO BID [facility] Last Admin: 06/22/18 10:36 Dose: 1 tab Vitamin A (Vitamin A & D Oint Ud Foilpak) 1 ea TOP BID PRN PRN Reason: Dry skin Last Admin: 06/13/18 10:47 Dose: 1 ea - Labs Labs: 06/22/18 06:48 06/22/18 06:48 PT 16.8 SECONDS (9.7-12.2) H 05/28/18 07:15 INR 1.5 05/28/18 07:15 APTT 34 SECONDS (21-34) 05/28/18 07:15 Attending/Attestation - Attestation I have personally seen and examined this patient.: Yes I have fully participated in the care of the patient.: Yes I have reviewed all pertinent clinical information, including history, physical exam and plan: Yes Notes (Text): more responsive Trying to talk Resident spoke to DR Brennan. we will try fenestrated trach cuff speech evaluation to PM valve to talk and try oral diet
[2018-06-22] MEDS: (Novolog) Insulin Aspart, Recombinant 100 u/ml 10 ml vial SC SCH ×4 (08:00→22:00)
[2018-06-22] MEDS: Docusate-Senna 50 mg-8.6 mg Tab PO SCH ×2 (10:36→18:13)
[2018-06-22] MEDS: (Novolin 70/30) NPH/Regular 70/30 Units/ml 10 ml vial SC SCH ×2 (10:40→18:19)
[2018-06-22] MEDS: (Lantus) Insulin Glargine, Recombinant SC SCH (21:51)
[2018-06-23] MEDS: Albuterol-Ipratrop 3 mg / 0.5 (3 ml) UD INH SCH ×6 (00:30→19:30)
[2018-06-23 06:31] LABS: BASO # 0.1 K/uL (0.0-0.2); EOS # 0.4 K/uL (0.0-0.7); EOS % 5.6 % (0.0-4.0); HEMOGLOBIN 9.8 g/dL (11.0-16.0); LYMPH # 1.9 K/uL (1.0-4.3); LYMPH % 30.1 % (20.0-40.0); MEAN CELL VOLUME 87.2 fL (81.0-99.0); MEAN CORPUSCULAR HEMOGLOBIN 28.2 pg (27.0-31.0); MEAN CORPUSCULAR HGB CONC 32.4 g/dL (33.0-37.0); MEAN PLATELET VOLUME 12.4 fL (7.2-11.7); MONO # 0.4 K/uL (0.0-0.8); MONO % 5.9 % (0.0-10.0); NEUT # 3.6 K/uL (1.8-7.0); NEUT % 57.4 % (50.0-75.0); RBC 3.46 Mil/uL (3.80-5.20); RED CELL DISTRIBUTION WIDTH 17.4 % (11.5-14.5); WHITE BLOOD COUNT 6.2 K/uL (4.8-10.8)
[2018-06-23 06:55] LABS: ALBUMIN 3.5 g/dL (3.5-5.0); ALT/SGPT 52 U/L (9-52); AST/SGOT 33 U/L (14-36); BLOOD UREA NITROGEN 27 mg/dL (7-17); CALCIUM 9.1 mg/dl (8.6-10.4); GFR NON-AFRICAN AMERICAN > 60
[2018-06-23] MEDS: (Novolog) Insulin Aspart, Recombinant 100 u/ml 10 ml vial SC SCH ×4 (08:22→21:31)
--- NOTE | 2018-06-23 09:46 | CP.PCM.PN ---
<Montez Miles - Last Filed: 06/23/18 14:26> Subjective - Date & Time of Evaluation Date of Evaluation: 06/23/18 Time of Evaluation: 09:46 - Subjective Subjective: PGY-1 Medicine Progress Note for Dr. Negrete Patient seen and examined at bedside this AM. No acute overnight events reported. Patient continues to make improvements daily. Awake, alert, responds appropriately to commands. Able to verbalize one or two syllable words. Being transferred out of bed to chair when possible. Patient shakes head no when asked if she has any pain or discomfort. Objective - Vital Signs/Intake and Output Vital Signs (last 24 hours): Temp Pulse Resp BP Pulse Ox 98 F 61 20 122/66 100 06/23/18 08:07 06/23/18 08:07 06/23/18 08:07 06/23/18 08:07 06/23/18 08:07 Intake and Output: 06/23/18 06/23/18 06:59 18:59 Intake Total 880 800 Output Total 300 400 Balance 580 400 - Medications Medications: Current Medications Albuterol/Ipratropium (Duoneb 3 Mg/0.5 Mg (3 Ml) Ud) 3 ml INH RQ4 [facility] Last Admin: 06/23/18 07:22 Dose: 3 ml Amlodipine Besylate (Norvasc) 10 mg PO DAILY [facility] Last Admin: 06/22/18 10:36 Dose: 10 mg Aspirin (Aspirin Chewable) 81 mg PO DAILY [facility] Last Admin: 06/22/18 10:36 Dose: 81 mg Bisacodyl (Dulcolax) 10 mg [place] TID PRN PRN Reason: Constipation Last Admin: 05/10/18 09:45 Dose: 10 mg Clopidogrel Bisulfate (Plavix) 75 mg PO DAILY [facility] Last Admin: 05/22/18 10:07 Dose: 75 mg Dextrose (Dextrose 50% Inj) 0 ml IV STAT PRN; Protocol PRN Reason: Hypoglycemia Protocol Last Admin: 06/21/18 16:15 Dose: 50 ml Dextrose (Glutose 15) 15 gm PO ONCE PRN; Protocol PRN Reason: Hypoglycemia Protocol Famotidine (Pepcid) 20 mg GT DAILY [facility] Last Admin: 06/22/18 10:36 Dose: 20 mg Glucagon (Glucagen Diagnostic Kit) 1 mg IM STAT PRN; Protocol PRN Reason: Hypoglycemia Protocol Ibuprofen (Motrin Oral Susp) 200 mg PO Q6H PRN PRN Reason: Fever >100.4 F Last Admin: 06/23/18 03:00 Dose: 200 mg Insulin Aspart (Novolog) 0 unit SC [facility]; Protocol Last Admin: 06/23/18 08:22 Dose: 4 units Insulin Glargine (Lantus) 40 unit SC [facility] Last Admin: 06/22/18 21:51 Dose: Not Given Insulin Human Isoph/Insulin Regular (Novolin 70/30 (70/30 Units/Ml) 10 Ml) 15 units SC BID [facility] Last Admin: 06/22/18 18:19 Dose: 15 units Metoprolol Tartrate (Lopressor) 75 mg PO BID [facility] Last Admin: 06/22/18 18:12 Dose: 75 mg Rosuvastatin Calcium (Crestor) 5 mg PO [facility] Last Admin: 06/22/18 21:41 Dose: 5 mg Senna/Docusate Sodium (Senokot S 50 Mg-8.6 Mg) 1 tab PO BID [facility] Last Admin: 06/22/18 18:13 Dose: 1 tab Vitamin A (Vitamin A & D Oint Ud Foilpak) 1 ea TOP BID PRN PRN Reason: Dry skin Last Admin: 06/13/18 10:47 Dose: 1 ea - Labs Labs: 06/23/18 06:20 06/23/18 06:20 PT 16.8 SECONDS (9.7-12.2) H 05/28/18 07:15 INR 1.5 05/28/18 07:15 APTT 34 SECONDS (21-34) 05/28/18 07:15 - Constitutional Appears: No Acute Distress, Chronically Ill - Head Exam Head Exam: ATRAUMATIC, NORMAL INSPECTION, NORMOCEPHALIC - Eye Exam Eye Exam: EOMI, Normal appearance, PERRL Pupil Exam: NORMAL ACCOMODATION - ENT Exam ENT Exam: Mucous Membranes Moist, Normal Exam - Neck Exam Neck Exam: Full ROM, Normal Inspection - Respiratory Exam Respiratory Exam: Clear to Ausculation Bilateral, NORMAL BREATHING PATTERN. absent: Accessory Muscle Use, Rales, Rhonchi, Wheezes, Respiratory Distress, Stridor - Cardiovascular Exam Cardiovascular Exam: REGULAR RHYTHM, +S1, +S2 - GI/Abdominal Exam GI & Abdominal Exam: Soft, Normal Bowel Sounds. absent: Distended, Firm, Guarding, Rigid, Tenderness - Extremities Exam Extremities Exam: Normal Capillary Refill. absent: Calf Tenderness, Pedal Edema - Neurological Exam Neurological Exam: Alert, Awake Additional comments: able to verbalize 1-2 syllable words with speaking valve over trach collar before tiring herself out. Nods head yes/no appropriately to questions asked - Psychiatric Exam Psychiatric exam: Normal Affect, Normal Mood - Skin Skin Exam: Dry, Intact, Normal Color, Warm Assessment and Plan - Assessment and Plan (Free Text) Assessment: 52 yo F with PMHx of DM type II visiting from the [facility] reported to be found unresponsive by on 05/01. Patient intubated on field, brought to ED where CODE STROKE was called. Admitted to ICU for ev aluation/monitoring of anoxic brain injury. Patient noted on exam to have ring monge suggestive of attempted suicidal attempt by hanging. [employer] made aware of case and confirm high likelihood of suicide attempt. Patient s/p tracheostomy and PED tube feeding. Patient weaned off ventilator to trach collar with humidified oxygen. Downgraded to telemetry for further monitoring. Will need extensive PT. Per ENT, vocal cords functional, consider weaning off O2. Attempted no supplemental O2 06/18 for approximately 5 minutes. Patient remained O2 saturating > 96% the entire time; however, she subsequently developed mucus plug that needed suctioning. Remains on trach collar at this time with further evaluation. Plan: Anoxic Brain Injury- improving clinically - Aspiration precautions - Seizure precautions - Turn and reposition q2h - trach collar and PEG tube -continue to wean off O2 -patient making progress, verbalizing 1-2 syllable words before fatigued -Aggressive PT/OT/ST -f/u swallow eval to try oral diet - Neurology on case, Dr. Duff/Guilherme Acute Renal Injury with oliguria- improving - Likely due to dehydration - No HD needed - Nephrology recs (Dr. 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 -Na level wnl, continue to monitor -correct as needed Hypertension- chronic, stable - No pressors (was previously hypotensive) - Norvasc 10 mg PO daily Respiratory Failure resolved - Due to Asphyxiation - Laryngoscopy (06/18): vocal cords functional - s/p tracheotomy - Consider removal of trach collar - Mucomyst Q4H d/c'd (06/21) - Duonebs Q4H - Suction prn - Humidified O2, continue to wean as tolerated Fevers resolved - Afebrile since 06/04, currently off Abx - Ice packs, cooling blanket - Sputum cultures (05/25): yeast - s/p meropenum 1g Q8H & flagyl 500mg Q8H (total 13 days of treatment) - Motrin 200 mg Q6H PRN NSTEMI resolved - Elevated troponin- has normalized - ASA 81 mg PO daily (restarted 05/25) - Plavix 75mg PO daily (held - given drop in Hb) - Crestor 5 mg PO QHS - Cardiology consulted (Dr Gay) Leukocytosis resolved - Repeat CXR (05/21): slightly low lung volumes with mild crowded bronchovascular markings and minor bibasilar atelectasis - BCx (05/02): no growth - Repeat BCx (05/17): no growth - UA: leuk est 3+, +WBC, +RBC, nitrate - - UCx 05/06/18: no growth -repeat UCx (05/13, 05/17): yeast species - Tracheal Aspirate Cx 05/08/18: yeast - Alvarado changed 05/17 - Doppler b/l UE and LE: negative for DVTs Hyperkalemia resolved - Continue to monitor, correct as needed PPx, Diet, Disposition - DVT ppx: Heparin 5,000 Units SC Q8H - GI ppx: Pepcid 20mg GT daily - Diet: Tube feed, Vital 1.2 - Vitamin A&D - Code status: full code Case discussed with Dr. Caden Miles DO, PGY-1 <mEmett Negrete - Last Filed: 06/23/18 19:18> Objective - Vital Signs/Intake and Output Vital Signs (last 24 hours): Temp Pulse Resp BP Pulse Ox 97.2 F L 55 L 18 90/53 L 95 06/23/18 15:45 06/23/18 15:45 06/23/18 15:45 06/23/18 18:00 06/23/18 15:45 Intake and Output: 06/23/1818 18:59 06:59 Intake Total 1400 Output Total 750 Balance 650 - Medications Medications: Current Medications Albuterol/Ipratropium (Duoneb 3 Mg/0.5 Mg (3 Ml) Ud) 3 ml INH RQ4 [facility] Last Admin: 06/23/18 15:55 Dose: 3 ml Amlodipine Besylate (Norvasc) 10 mg PO DAILY [facility] Last Admin: 06/23/18 09:59 Dose: 10 mg Aspirin (Aspirin Chewable) 81 mg PO DAILY [facility] Last Admin: 06/23/18 09:59 Dose: 81 mg Bisacodyl (Dulcolax) 10 mg OH TID PRN PRN Reason: Constipation Last Admin: 05/10/18 09:45 Dose: 10 mg Clopidogrel Bisulfate (Plavix) 75 mg PO DAILY [facility] Last Admin: 05/22/18 10:07 Dose: 75 mg Dextrose (Dextrose 50% Inj) 0 ml IV STAT PRN; Protocol PRN Reason: Hypoglycemia Protocol Last Admin: 06/21/18 16:15 Dose: 50 ml Dextrose (Glutose 15) 15 gm PO ONCE PRN; Protocol PRN Reason: Hypoglycemia Protocol Famotidine (Pepcid) 20 mg GT DAILY [facility] Last Admin: 06/23/18 09:59 Dose: 20 mg Glucagon (Glucagen Diagnostic Kit) 1 mg IM STAT PRN; Protocol PRN Reason: Hypoglycemia Protocol Ibuprofen (Motrin Oral Susp) 200 mg PO Q6H PRN PRN Reason: Fever >100.4 F Last Admin: 06/23/18 03:00 Dose: 200 mg Insulin Aspart (Novolog) 0 unit SC ACHS [facility]; Protocol Last Admin: 06/23/18 17:11 Dose: Not Given Insulin Glargine (Lantus) 40 unit SC HS [facility] Last Admin: 06/22/18 21:51 Dose: Not Given Insulin Human Isoph/Insulin Regular (Novolin 70/30 (70/30 Units/Ml) 10 Ml) 15 units SC BID [facility] Last Admin: 06/23/18 18:03 Dose: 15 units Metoprolol Tartrate (Lopressor) 75 mg PO BID [facility] Last Admin: 06/23/18 18:00 Dose: Not Given Rosuvastatin Calcium (Crestor) 5 mg PO HS [facility] Last Admin: 06/22/18 21:41 Dose: 5 mg Senna/Docusate Sodium (Senokot S 50 Mg-8.6 Mg) 1 tab PO BID [facility] Last Admin: 06/23/18 17:59 Dose: 1 tab Vitamin A (Vitamin A & D Oint Ud Foilpak) 1 ea TOP BID PRN PRN Reason: Dry skin Last Admin: 06/13/18 10:47 Dose: 1 ea - Labs Labs: 06/23/18 06:20 06/23/18 06:20 PT 16.8 SECONDS (9.7-12.2) H 05/28/18 07:15 INR 1.5 05/28/18 07:15 APTT 34 SECONDS (21-34) 05/28/18 07:15 Attending/Attestation - Attestation I have personally seen and examined this patient.: Yes I have fully participated in the care of the patient.: Yes I have reviewed all pertinent clinical information, including history, physical exam and plan: Yes Notes (Text): Patient was seen and examined Seen with [place] speech therapist to try [place] valve trial we will continue PT,speech therapy. Discussed about swallowing evaluation spoke to her son at bedside
[2018-06-23] MEDS: Docusate-Senna 50 mg-8.6 mg Tab PO SCH ×2 (09:59→17:59)
[2018-06-23] MEDS: (Novolin 70/30) NPH/Regular 70/30 Units/ml 10 ml vial SC SCH ×2 (10:00→18:03)
[2018-06-23] MEDS: (Lantus) Insulin Glargine, Recombinant SC SCH (21:30)
[2018-06-24] MEDS: Albuterol-Ipratrop 3 mg / 0.5 (3 ml) UD INH SCH ×6 (00:16→20:56)
[2018-06-24 07:28] LABS: BASO % 0.9 % (0.0-2.0); EOS # 0.3 K/uL (0.0-0.7); EOS % 5.6 % (0.0-4.0); HEMOGLOBIN 9.4 g/dL (11.0-16.0); LYMPH # 1.7 K/uL (1.0-4.3); LYMPH % 35.9 % (20.0-40.0); MEAN CELL VOLUME 86.8 fL (81.0-99.0); MEAN CORPUSCULAR HEMOGLOBIN 28.5 pg (27.0-31.0); MEAN CORPUSCULAR HGB CONC 32.8 g/dL (33.0-37.0); MEAN PLATELET VOLUME 11.6 fL (7.2-11.7); MONO # 0.4 K/uL (0.0-0.8); MONO % 8.7 % (0.0-10.0); NEUT # 2.3 K/uL (1.8-7.0); NEUT % 48.9 % (50.0-75.0); NRBC % 0.1 % (0.0-2.0); RBC 3.29 Mil/uL (3.80-5.20); RED CELL DISTRIBUTION WIDTH 17.3 % (11.5-14.5); WHITE BLOOD COUNT 4.7 K/uL (4.8-10.8)
--- NOTE | 2018-06-24 07:43 | CP.PCM.PN ---
<Montez Miles - Last Filed: 06/24/18 16:29> Subjective - Date & Time of Evaluation Date of Evaluation: 06/24/18 Time of Evaluation: 07:40 - Subjective Subjective: PGY-1 Medicine Progress Note for Dr. Negrete Patient seen and examined at bedside this AM with soft restraints to wrists b/l. Became slightly agitated this morning per nursing, pulled her PEG tube out. Spoke to surgery about reinserting tube. Continues to nod appropriately to yes/no questions, verbalizes small syllable words. Working with PT/OT, speech therapy. Next step is to work on swallow evaluation. Family at bedside very supportive. Objective - Vital Signs/Intake and Output Vital Signs (last 24 hours): Temp Pulse Resp BP Pulse Ox 98.2 F 67 20 140/76 98 06/24/18 00:00 06/24/18 00:00 06/24/18 00:00 06/24/18 00:00 06/24/18 00:00 Intake and Output: 06/24/18 06/24/18 06:59 18:59 Intake Total 1680 Output Total 1000 Balance 680 - Medications Medications: Current Medications Albuterol/Ipratropium (Duoneb 3 Mg/0.5 Mg (3 Ml) Ud) 3 ml INH RQ4 [facility] Last Admin: 06/24/18 07:27 Dose: 3 ml Amlodipine Besylate (Norvasc) 10 mg PO DAILY [facility] Last Admin: 06/23/18 09:59 Dose: 10 mg Aspirin (Aspirin Chewable) 81 mg PO DAILY [facility] Last Admin: 06/23/18 09:59 Dose: 81 mg Bisacodyl (Dulcolax) 10 mg [place] TID PRN PRN Reason: Constipation Last Admin: 05/10/18 09:45 Dose: 10 mg Clopidogrel Bisulfate (Plavix) 75 mg PO DAILY [facility] Last Admin: 05/22/18 10:07 Dose: 75 mg Dextrose (Dextrose 50% Inj) 0 ml IV STAT PRN; Protocol PRN Reason: Hypoglycemia Protocol Last Admin: 06/21/18 16:15 Dose: 50 ml Dextrose (Glutose 15) 15 gm PO ONCE PRN; Protocol PRN Reason: Hypoglycemia Protocol Famotidine (Pepcid) 20 mg GT DAILY [facility] Last Admin: 06/23/18 09:59 Dose: 20 mg Glucagon (Glucagen Diagnostic Kit) 1 mg IM STAT PRN; Protocol PRN Reason: Hypoglycemia Protocol Ibuprofen (Motrin Oral Susp) 200 mg PO Q6H PRN PRN Reason: Fever >100.4 F Last Admin: 06/24/18 00:40 Dose: 200 mg Insulin Aspart (Novolog) 0 unit SC [facility]; Protocol Last Admin: 06/23/18 21:31 Dose: Not Given Insulin Glargine (Lantus) 40 unit SC [facility] Last Admin: 06/23/18 21:30 Dose: Not Given Insulin Human Isoph/Insulin Regular (Novolin 70/30 (70/30 Units/Ml) 10 Ml) 15 units SC BID [facility] Last Admin: 06/23/18 18:03 Dose: 15 units Metoprolol Tartrate (Lopressor) 75 mg PO BID [facility] Last Admin: 06/23/18 18:00 Dose: Not Given Rosuvastatin Calcium (Crestor) 5 mg PO [facility] Last Admin: 06/23/18 21:24 Dose: 5 mg Senna/Docusate Sodium (Senokot S 50 Mg-8.6 Mg) 1 tab PO BID [facility] Last Admin: 06/23/18 17:59 Dose: 1 tab Vitamin A (Vitamin A & D Oint Ud Foilpak) 1 ea TOP BID PRN PRN Reason: Dry skin Last Admin: 06/13/18 10:47 Dose: 1 ea - Labs Labs: 06/24/18 07:15 06/23/18 06:20 PT 16.8 SECONDS (9.7-12.2) H 05/28/18 07:15 INR 1.5 05/28/18 07:15 APTT 34 SECONDS (21-34) 05/28/18 07:15 - Constitutional Appears: Non-toxic, No Acute Distress, Chronically Ill - Head Exam Head Exam: ATRAUMATIC, NORMAL INSPECTION, NORMOCEPHALIC - Eye Exam Eye Exam: EOMI, Normal appearance, PERRL Pupil Exam: NORMAL ACCOMODATION - ENT Exam ENT Exam: Mucous Membranes Moist, Normal Exam - Neck Exam Neck Exam: Full ROM, Normal Inspection - Respiratory Exam Respiratory Exam: Clear to Ausculation Bilateral, NORMAL BREATHING PATTERN. absent: Accessory Muscle Use, Rales, Rhonchi, Wheezes, Respiratory Distress, Stridor - Cardiovascular Exam Cardiovascular Exam: REGULAR RHYTHM, +S1, +S2 - GI/Abdominal Exam GI & Abdominal Exam: Soft, Normal Bowel Sounds. absent: Distended, Firm, Guarding, Rigid, Tenderness, Organomegaly, Rebound - Extremities Exam Extremities Exam: Normal Capillary Refill. absent: Calf Tenderness, Pedal Edema - Neurological Exam Neurological Exam: Alert, Awake Additional comments: able to verbalize 1-2 syllable words with speaking valve over trach collar before tiring herself out. Nods head yes/no appropriately to questions asked - Skin Skin Exam: Dry, Intact, Normal Color, Warm Assessment and Plan - Assessment and Plan (Free Text) Assessment: 52 yo F with PMHx of DM type II visiting from the [facility] reported to be found unresponsive by on 05/01. Patient intubated on field, brought to ED where CODE STROKE was called. Admitted to ICU for evaluation/monitoring of anoxic brain injury. Patient noted on exam to have ring monge suggestive of attempted suicidal attempt by hanging. [employer] made aware of case and confirm high likelihood of suicide attempt. Patient s/p tracheostomy and PED tube feeding. Patient weaned off ventilator to trach collar with humidif ied oxygen. Downgraded to telemetry for further monitoring. Will need extensive PT. Per ENT, vocal cords functional, consider weaning off O2. Attempted no supplemental O2 06/18 for approximately 5 minutes. Patient remained O2 saturating > 96% the entire time; however, she subsequently developed mucus plug that needed suctioning. Remains on trach collar at this time with further evaluation. Working aggressively with PT/OT/speech therapy, making significant progress and beginning to verbalize small syllable words. Plan: Anoxic Brain Injury- improving clinically - Aspiration precautions - Seizure precautions - Neurology on case, Dr. Duff/Guilherme - Turn and reposition q2h - trach collar -continue to wean off O2 -patient making progress, verbalizing 1-2 syllable words before fatigued -pt became agitated this am, pulled PEG tube out -surgery to reinsert tube -pt on soft wrist restraints b/l -Aggressive PT/OT/ST -swallow evaluation for oral feeds Acute Renal Injury with oliguria- improving - Likely due to dehydration - No HD needed - Nephrology recs (Dr. 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 -Na level wnl, continue to monitor -correct as needed Hypertension- chronic, stable - No pressors (was previously hypotensive) - Norvasc 10 mg PO daily Respiratory Failure resolved - Due to Asphyxiation - Laryngoscopy (06/18): vocal cords functional - s/p tracheotomy - Consider removal of trach collar - Mucomyst Q4H d/c'd (06/21) - Duonebs Q4H - Suction prn - Humidified O2, continue to wean as tolerated Fevers resolved - Afebrile since 06/04, currently off Abx - Ice packs, cooling blanket - Sputum cultures (05/25): yeast - s/p meropenum 1g Q8H & flagyl 500mg Q8H (total 13 days of treatment) - Motrin 200 mg Q6H PRN NSTEMI resolved - Elevated troponin- has normalized - ASA 81 mg PO daily (restarted 05/25) - Plavix 75mg PO daily (held - given drop in Hb) - Crestor 5 mg PO QHS - Cardiology consulted (Dr Gay) Leukocytosis resolved - Repeat CXR (05/21): slightly low lung volumes with mild crowded bronchovascular markings and minor bibasilar atelectasis - BCx (05/02): no growth - Repeat BCx (05/17): no growth - UA: leuk est 3+, +WBC, +RBC, nitrate - - UCx 05/06/18: no growth -repeat UCx (05/13, 05/17): yeast species - Tracheal Aspirate Cx 05/08/18: yeast - Alvarado changed 05/17 - Doppler b/l UE and LE: negative for DVTs Hyperkalemia resolved - Continue to monitor, correct as needed PPx, Diet, Disposition - DVT ppx: Heparin 5,000 Units SC Q8H - GI ppx: Pepcid 20mg GT daily - Diet: Tube feed, Vital 1.2 - Vitamin A&D - Code status: full code Case discussed with Dr. Caden Miles DO, PGY-1 <Emmett Negrete - Last Filed: 07/10/18 21:23> Objective - Vital Signs/Intake and Output Vital Signs (last 24 hours): Temp Pulse Resp BP Pulse Ox 99.6 F 78 20 156/74 H 99 07/10/18 17:09 07/10/18 17:09 07/10/18 17:09 07/10/18 17:57 07/10/18 17:09 Intake and Output: 07/10/18 07/11/18 18:59 06:59 Intake Total 2031 Output Total 850 Balance 1181 - Medications Medications: Current Medications Albuterol/Ipratropium (Duoneb 3 Mg/0.5 Mg (3 Ml) Ud) 3 ml INH RQ4 [facility] Last Admin: 07/10/18 19:20 Dose: 3 ml Amlodipine Besylate (Norvasc) 10 mg PO DAILY [facility] Last Admin: 07/10/18 09:21 Dose: 10 mg Aspirin (Aspirin Chewable) 81 mg PO DAILY [facility] Last Admin: 07/10/18 09:21 Dose: 81 mg Clopidogrel Bisulfate (Plavix) 75 mg PO DAILY [facility] Last Admin: 05/22/18 10:07 Dose: 75 mg Dextrose (Dextrose 50% Inj) 0 ml IV STAT PRN; Protocol PRN Reason: Hypoglycemia Protocol Last Admin: 06/21/18 16:15 Dose: 50 ml Dextrose (Glutose 15) 15 gm PO ONCE PRN; Protocol PRN Reason: Hypoglycemia Protocol Famotidine (Pepcid) 20 mg GT BID [facility] Last Admin: 07/10/18 17:57 Dose: 20 mg Glucagon (Glucagen Diagnostic Kit) 1 mg IM STAT PRN; Protocol PRN Reason: Hypoglycemia Protocol Ibuprofen (Motrin Oral Susp) 200 mg PO Q6H PRN PRN Reason: Fever >100.4 F Last Admin: 07/06/18 21:19 Dose: 200 mg Insulin Aspart (Novolog) 0 unit SC [facility]; Protocol Last Admin: 07/10/18 11:31 Dose: 2 units Insulin Glargine (Lantus) 40 unit SC HS [facility] Last Admin: 06/25/18 22:02 Dose: Not Given Insulin Human Isoph/Insulin Regular (Novolin 70/30 (70/30 Units/Ml) 10 Ml) 15 units SC BID [facility] Last Admin: 06/26/18 09:27 Dose: 15 units Lorazepam (Ativan) 0.5 mg IVP Q8H PRN PRN Reason: Anxiety Last Admin: 07/07/18 18:04 Dose: 0.5 mg Metoprolol Tartrate (Lopressor) 75 mg PO BID [facility] Last Admin: 07/10/18 17:57 Dose: 75 mg Polyethylene Glycol (Miralax) 17 gm GT BID [facility] Last Admin: 07/10/18 17:58 Dose: 17 gm Potassium Chloride (Potassium Chloride Oral Soln) 20 meq PO DAILY [facility] Last Admin: 07/10/18 09:22 Dose: 20 meq Rosuvastatin Calcium (Crestor) 5 mg PO HS [facility] Last Admin: 07/09/18 21:01 Dose: 5 mg Senna/Docusate Sodium (Senokot S 50 Mg-8.6 Mg) 1 tab PO BID [facility] Last Admin: 07/10/18 17:58 Dose: 1 tab Vitamin A (Vitamin A & D Oint Ud Foilpak) 1 ea TOP BID PRN PRN Reason: Dry skin Last Admin: 06/13/18 10:47 Dose: 1 ea - Labs Labs: 07/10/18 08:55 07/10/18 08:55 PT 16.8 SECONDS (9.7-12.2) H 05/28/18 07:15 INR 1.5 05/28/18 07:15 APTT 34 SECONDS (21-34) 05/28/18 07:15 Attending/Attestation - Attestation I have personally seen and examined this patient.: Yes I have fully participated in the care of the patient.: Yes I have reviewed all pertinent clinical information, including history, physical exam and plan: Yes
[2018-06-24 07:51] LABS: ALBUMIN 3.1 g/dL (3.5-5.0); ALT/SGPT 42 U/L (9-52); AST/SGOT 31 U/L (14-36); BLOOD UREA NITROGEN 21 mg/dL (7-17); CALCIUM 8.7 mg/dl (8.6-10.4); GFR NON-AFRICAN AMERICAN > 60
[2018-06-24] MEDS: (Novolog) Insulin Aspart, Recombinant 100 u/ml 10 ml vial SC SCH ×4 (08:27→21:32)
[2018-06-24] MEDS ORDERED: Iohexol 240 200 ML ONE (08:55)
--- NOTE | 2018-06-24 10:29 | CP.PCM.PN ---
Subjective - Date & Time of Evaluation Date of Evaluation: 06/24/18 Time of Evaluation: 10:00 - Subjective Subjective: General Surgery Called to replace G-tube after patient pulled it out x 2. Replaced at bedside with no difficulty, re-inflated the balloon with 20cc sterile water. Mittens placed after 2nd dislodging. Got tube study with omnipaque to confirm placement in stomach after 2nd reinsertion. Abd XR read at bedside, tube in place, ok to use for feeds [place] PGY4 Objective - Vital Signs/Intake and Output Vital Signs (last 24 hours): Temp Pulse Resp BP Pulse Ox 98 F 61 20 145/75 100 06/24/18 07:47 06/24/18 07:47 06/24/18 07:47 06/24/18 07:47 06/24/18 07:47 Intake and Output: 06/24/18 06/24/18 06:59 18:59 Intake Total 1680 Output Total 1000 Balance 680 - Medications Medications: Current Medications Albuterol/Ipratropium (Duoneb 3 Mg/0.5 Mg (3 Ml) Ud) 3 ml INH RQ4 [facility] Last Admin: 06/24/18 07:27 Dose: 3 ml Amlodipine Besylate (Norvasc) 10 mg PO DAILY [facility] Last Admin: 06/23/18 09:59 Dose: 10 mg Aspirin (Aspirin Chewable) 81 mg PO DAILY [facility] Last Admin: 06/23/18 09:59 Dose: 81 mg Bisacodyl (Dulcolax) 10 mg MN TID PRN PRN Reason: Constipation Last Admin: 05/10/18 09:45 Dose: 10 mg Clopidogrel Bisulfate (Plavix) 75 mg PO DAILY [facility] Last Admin: 05/22/18 10:07 Dose: 75 mg Dextrose (Dextrose 50% Inj) 0 ml IV STAT PRN; Protocol PRN Reason: Hypoglycemia Protocol Last Admin: 06/21/18 16:15 Dose: 50 ml Dextrose (Glutose 15) 15 gm PO ONCE PRN; Protocol PRN Reason: Hypoglycemia Protocol Famotidine (Pepcid) 20 mg GT DAILY [facility] Last Admin: 06/23/18 09:59 Dose: 20 mg Glucagon (Glucagen Diagnostic Kit) 1 mg IM STAT PRN; Protocol PRN Reason: Hypoglycemia Protocol Ibuprofen (Motrin Oral Susp) 200 mg PO Q6H PRN PRN Reason: Fever >100.4 F Last Admin: 06/24/18 00:40 Dose: 200 mg Insulin Aspart (Novolog) 0 unit SC ACHS [facility]; Protocol Last Admin: 06/24/18 08:27 Dose: 4 units Insulin Glargine (Lantus) 40 unit SC [facility] Last Admin: 06/23/18 21:30 Dose: Not Given Insulin Human Isoph/Insulin Regular (Novolin 70/30 (70/30 Units/Ml) 10 Ml) 15 units SC BID [facility] Last Admin: 06/23/18 18:03 Dose: 15 units Metoprolol Tartrate (Lopressor) 75 mg PO BID [facility] Last Admin: 06/23/18 18:00 Dose: Not Given Rosuvastatin Calcium (Crestor) 5 mg PO [facility] Last Admin: 06/23/18 21:24 Dose: 5 mg Senna/Docusate Sodium (Senokot S 50 Mg-8.6 Mg) 1 tab PO BID [facility] Last Admin: 06/23/18 17:59 Dose: 1 tab Vitamin A (Vitamin A & D Oint Ud Foilpak) 1 ea TOP BID PRN PRN Reason: Dry skin Last Admin: 06/13/18 10:47 Dose: 1 ea - Labs Labs: 06/24/18 07:15 06/24/18 07:15 PT 16.8 SECONDS (9.7-12.2) H 05/28/18 07:15 INR 1.5 05/28/18 07:15 APTT 34 SECONDS (21-34) 05/28/18 07:15
[2018-06-24] MEDS: (Novolin 70/30) NPH/Regular 70/30 Units/ml 10 ml vial SC SCH ×2 (11:05→18:17)
[2018-06-24] MEDS: Docusate-Senna 50 mg-8.6 mg Tab PO SCH ×2 (11:07→18:14)
--- NOTE | 2018-06-24 14:52 | RAD ---
Date of service: 06/24/2018 HISTORY: for PEG tube visualization with omnipaque. Per technologist's note 6 mL of Omni scan had been infuse bedside by Kevan Cleary COMPARISON: None available. FINDINGS: BOWEL: Moderate left and right colonic stool retention.. No obstruction. [employer] image shows a PEG tube projecting over the left upper abdominal quadrant. Image labeled 3. Shows contrast within the stomach gastric fundus body duodenal bulb and proximal C sweep and this appears unremarkable. Image number 40 3 min post delayed image shows trace contrast very slightly more distally in the C sweep. No more definitive greater contrast in the proximal small bowel otherwise seen. No gross extravasation of contrast seen in the nondistended opacified stomach segments. BONES: Left sacroiliac sclerotic arthrosis.. Right L5-S1 facet arthrosis. OTHER FINDINGS: None. IMPRESSION: Opacification the indwelling PEG tube showing no high-grade obstruction or gross leakage. Moderate left and right stool retention. Can be seen with constipation. No bowel obstruction appreciated.
[2018-06-24] MEDS: (Lantus) Insulin Glargine, Recombinant SC SCH (21:32)
[2018-06-25] MEDS: Albuterol-Ipratrop 3 mg / 0.5 (3 ml) UD INH SCH ×5 (00:20→20:20)
[2018-06-25 07:23] LABS: BASO # 0.1 K/uL (0.0-0.2); BASO % 0.8 % (0.0-2.0); EOS # 0.3 K/uL (0.0-0.7); LYMPH # 2.1 K/uL (1.0-4.3); MEAN CELL VOLUME 86.2 fL (81.0-99.0); MEAN CORPUSCULAR HEMOGLOBIN 28.9 pg (27.0-31.0); MEAN CORPUSCULAR HGB CONC 33.6 g/dL (33.0-37.0); MEAN PLATELET VOLUME 11.7 fL (7.2-11.7); MONO # 0.6 K/uL (0.0-0.8); MONO % 7.4 % (0.0-10.0); NEUT # 4.7 K/uL (1.8-7.0); NEUT % 60.8 % (50.0-75.0); RBC 3.44 Mil/uL (3.80-5.20); RED CELL DISTRIBUTION WIDTH 16.8 % (11.5-14.5)
[2018-06-25 07:26] LABS: WHITE BLOOD COUNT 7.7 K/uL (4.8-10.8)
--- NOTE | 2018-06-25 07:30 | CP.PCM.PN ---
<Montez Miles - Last Filed: 06/25/18 15:47> Subjective - Date & Time of Evaluation Date of Evaluation: 06/25/18 Time of Evaluation: 07:30 - Subjective Subjective: PGY-1 Medicine Progress Note for Dr. Negrete Patient seen and examined at bedside this AM s/p reinsertion of PEG tube. Per nurse, patient did not sleep well overnight and was agitated, needed ativan. More calm this morning, will try to take off mittens and see if patient remains cooperative. Objective - Vital Signs/Intake and Output Vital Signs (last 24 hours): Temp Pulse Resp BP Pulse Ox 98.3 F 61 20 150/66 100 06/25/18 00:00 06/25/18 00:00 06/25/18 00:00 06/25/18 00:00 06/25/18 00:00 Intake and Output: 06/25/18 06/25/18 06:59 18:59 Intake Total 880 Output Total 550 Balance 330 - Medications Medications: Current Medications Albuterol/Ipratropium (Duoneb 3 Mg/0.5 Mg (3 Ml) Ud) 3 ml INH RQ4 [facility] Last Admin: 06/25/18 04:35 Dose: 3 ml Amlodipine Besylate (Norvasc) 10 mg PO DAILY [facility] Last Admin: 06/24/18 11:07 Dose: 10 mg Aspirin (Aspirin Chewable) 81 mg PO DAILY [facility] Last Admin: 06/24/18 11:02 Dose: 81 mg Bisacodyl (Dulcolax) 10 mg ID TID PRN PRN Reason: Constipation Last Admin: 05/10/18 09:45 Dose: 10 mg Clopidogrel Bisulfate (Plavix) 75 mg PO DAILY [facility] Last Admin: 05/22/18 10:07 Dose: 75 mg Dextrose (Dextrose 50% Inj) 0 ml IV STAT PRN; Protocol PRN Reason: Hypoglycemia Protocol Last Admin: 06/21/18 16:15 Dose: 50 ml Dextrose (Glutose 15) 15 gm PO ONCE PRN; Protocol PRN Reason: Hypoglycemia Protocol Famotidine (Pepcid) 20 mg GT DAILY [facility] Last Admin: 06/24/18 11:02 Dose: 20 mg Glucagon (Glucagen Diagnostic Kit) 1 mg IM STAT PRN; Protocol PRN Reason: Hypoglycemia Protocol Ibuprofen (Motrin Oral Susp) 200 mg PO Q6H PRN PRN Reason: Fever >100.4 F Last Admin: 06/24/18 21:37 Dose: 200 mg Insulin Aspart (Novolog) 0 unit SC [facility]; Protocol Last Admin: 06/24/18 21:32 Dose: Not Given Insulin Glargine (Lantus) 40 unit SC [facility] Last Admin: 06/24/18 21:32 Dose: Not Given Insulin Human Isoph/Insulin Regular (Novolin 70/30 (70/30 Units/Ml) 10 Ml) 15 units SC BID [facility] Last Admin: 06/24/18 18:17 Dose: 15 units Metoprolol Tartrate (Lopressor) 75 mg PO BID [facility] Last Admin: 06/24/18 18:14 Dose: 75 mg Rosuvastatin Calcium (Crestor) 5 mg PO [facility] Last Admin: 06/24/18 21:31 Dose: 5 mg Senna/Docusate Sodium (Senokot S 50 Mg-8.6 Mg) 1 tab PO BID [facility] Last Admin: 06/24/18 18:14 Dose: 1 tab Vitamin A (Vitamin A & D Oint Ud Foilpak) 1 ea TOP BID PRN PRN Reason: Dry skin Last Admin: 06/13/18 10:47 Dose: 1 ea - Labs Labs: 06/25/18 07:14 06/24/18 07:15 PT 16.8 SECONDS (9.7-12.2) H 05/28/18 07:15 INR 1.5 05/28/18 07:15 APTT 34 SECONDS (21-34) 05/28/18 07:15 - Constitutional Appears: Non-toxic, No Acute Distress, Chronically Ill - Head Exam Head Exam: ATRAUMATIC, NORMAL INSPECTION, NORMOCEPHALIC - Eye Exam Eye Exam: EOMI, Normal appearance, PERRL Pupil Exam: NORMAL ACCOMODATION - ENT Exam ENT Exam: Mucous Membranes Moist, Normal Exam - Neck Exam Neck Exam: Full ROM, Normal Inspection Additional comments: trach collar in place with no secretions noted - Respiratory Exam Respiratory Exam: Clear to Ausculation Bilateral, NORMAL BREATHING PATTERN. absent: Accessory Muscle Use, Respiratory Distress - Cardiovascular Exam Cardiovascular Exam: REGULAR RHYTHM, +S1, +S2 - GI/Abdominal Exam GI & Abdominal Exam: Soft, Normal Bowel Sounds. absent: Distended, Firm, Guarding, Rigid, Tenderness Additional comments: PEG tube in place with no surrounding erythema - Extremities Exam Extremities Exam: Normal Capillary Refill. absent: Calf Tenderness, Pedal Edema Additional comments: b/l feet contracted - Neurological Exam Neurological Exam: Alert, Awake Additional comments: able to verbalize 1-2 syllable words with speaking valve over trach collar before tiring herself out. Nods head yes/no appropriately to questions asked - Skin Skin Exam: Dry, Intact, Normal Color, Warm Assessment and Plan - Assessment and Plan (Free Text) Assessment: 52 yo F with PMHx of DM type II visiting from the [facility] [place] reported to be found unresponsive by on 05/01. Patient intubated on field, brought to ED where [facility] was called. Admitted to ICU for evaluation/monitoring of anoxic brain injury. Patient noted on exam to have ring monge suggestive of attempted suicidal attempt by hanging. [employer] made aware of case and confirm high likelihood of suicide attempt. Patient s/p tracheostomy and PED tube feeding. Patient weaned off ventilator to trach collar with humidified oxygen. Downgraded to telemetry for further monitoring. Will need extensive PT. Per ENT, vocal cords functional, consider weaning off O2. Attempted no supplemental O2 06/18 for approximately 5 minutes. Patient remained O2 saturating > 96% the entire time; however, she subsequently developed mucus plug that needed suctioning. Remains on trach collar at this time with further evaluation. Working aggressively with PT/OT/speech therapy, making significant progress and beginning to verbalize small syllable words. Plan: Anoxic Brain Injury- improving clinically - Aspiration precautions - Seizure precautions - Neurology on case, Dr. Duff/Guilherme - Turn and reposition q2h -PEG tube reinserted successfully -fenestrated trach collar -continue to wean off O2 -patient making progress, verbalizing 1-2 syllable words before fatigued -Aggressive PT/OT/ST -swallow evaluation recs appreciated -honey thick liquid pleasure feeds Acute Renal Injury with oliguria- improving - Likely due to dehydration - No HD needed - Nephrology recs (Dr. 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 -Na level wnl, continue to monitor -correct as needed Hypertension- chronic, stable - No pressors (was previously hypotensive) - Norvasc 10 mg PO daily Respiratory Failure resolved - Due to Asphyxiation - Laryngoscopy (06/18): vocal cords functional - s/p tracheotomy - Consider removal of trach collar - Mucomyst Q4H d/c'd (06/21) - Duonebs Q4H - Suction prn - Humidified O2, continue to wean as tolerated Fevers resolved - Afebrile since 06/04, currently off Abx - Ice packs, cooling blanket - Sputum cultures (05/25): yeast - s/p meropenum 1g Q8H & flagyl 500mg Q8H (total 13 days of treatment) - Motrin 200 mg Q6H PRN NSTEMI resolved - Elevated troponin- has normalized - ASA 81 mg PO daily (restarted 05/25) - Plavix 75mg PO daily (held - given drop in Hb) - Crestor 5 mg PO QHS - Cardiology consulted (Dr Gay) Leukocytosis resolved - Repeat CXR (05/21): slightly low lung volumes with mild crowded bronchovascular markings and minor bibasilar atelectasis - BCx (05/02): no growth - Repeat BCx (05/17): no growth - UA: leuk est 3+, +WBC, +RBC, nitrate - - UCx 05/06/18: no growth -repeat UCx (05/13, 05/17): yeast species - Tracheal Aspirate Cx 05/08/18: yeast - Alvarado changed 05/17 - Doppler b/l UE and LE: negative for DVTs Hyperkalemia resolved - Continue to monitor, correct as needed PPx, Diet, Disposition - DVT ppx: Heparin 5,000 Units SC Q8H - GI ppx: Pepcid 20mg GT daily - Diet: Tube feed, Vital 1.2, honey thick liquids (pleasure feeds only, per swallow eval) - Vitamin A&D - Code status: full code Case discussed with Dr. Caden Miles DO, PGY-1 <Emmett Negrete - Last Filed: 07/10/18 21:23> Objective - Vital Signs/Intake and Output Vital Signs (last 24 hours): Temp Pulse Resp BP Pulse Ox 98 F 67 20 151/72 H 100 06/26/18 08:28 06/26/18 08:28 06/26/18 08:28 06/26/18 09:26 06/26/18 08:28 Intake and Output: 06/26/18 06/26/18 06:59 18:59 Intake Total 1400 Output Total 600 Balance 800 - Medications Medications: Current Medications Albuterol/Ipratropium (Duoneb 3 Mg/0.5 Mg (3 Ml) Ud) 3 ml INH RQ4 [facility] Last Admin: 06/26/18 11:33 Dose: 3 ml Amlodipine Besylate (Norvasc) 10 mg PO DAILY [facility] Last Admin: 06/26/18 09:25 Dose: 10 mg Aspirin (Aspirin Chewable) 81 mg PO DAILY [facility] Last Admin: 06/26/18 09:25 Dose: 81 mg Clopidogrel Bisulfate (Plavix) 75 mg PO DAILY [facility] Last Admin: 05/22/18 10:07 Dose: 75 mg Dextrose (Dextrose 50% Inj) 0 ml IV STAT PRN; Protocol PRN Reason: Hypoglycemia Protocol Last Admin: 06/21/18 16:15 Dose: 50 ml Dextrose (Glutose 15) 15 gm PO ONCE PRN; Protocol PRN Reason: Hypoglycemia Protocol Famotidine (Pepcid) 20 mg GT BID [facility] Glucagon (Glucagen Diagnostic Kit) 1 mg IM STAT PRN; Protocol PRN Reason: Hypoglycemia Protocol Sodium Chloride (Sodium Chloride 0.9%) 1,000 mls @ 100 mls/hr IV .Q10H [facility] Last Admin: 06/26/18 10:40 Dose: 100 mls/hr Ibuprofen (Motrin Oral Susp) 200 mg PO Q6H PRN PRN Reason: Fever >100.4 F Last Admin: 06/26/18 09:23 Dose: 200 mg Insulin Aspart (Novolog) 0 unit SC ACHS [facility]; Protocol Last Admin: 06/26/18 11:53 Dose: Not Given Insulin Glargine (Lantus) 40 unit SC HS [facility] Last Admin: 06/25/18 22:02 Dose: Not Given Insulin Human Isoph/Insulin Regular (Novolin 70/30 (70/30 Units/Ml) 10 Ml) 15 units SC BID [facility] Last Admin: 06/26/18 09:27 Dose: 15 units Metoprolol Tartrate (Lopressor) 75 mg PO BID [facility] Last Admin: 06/26/18 09:26 Dose: 75 mg Polyethylene Glycol (Miralax) 17 gm GT BID [facility] Rosuvastatin Calcium (Crestor) 5 mg PO HS [facility] Last Admin: 06/25/18 21:05 Dose: 5 mg Senna/Docusate Sodium (Senokot S 50 Mg-8.6 Mg) 1 tab PO BID [facility] Last Admin: 06/26/18 09:24 Dose: 1 tab Vitamin A (Vitamin A & D Oint Ud Foilpak) 1 ea TOP BID PRN PRN Reason: Dry skin Last Admin: 06/13/18 10:47 Dose: 1 ea - Labs Labs: 06/26/18 06:59 06/26/18 06:59 PT 16.8 SECONDS (9.7-12.2) H 05/28/18 07:15 INR 1.5 05/28/18 07:15 APTT 34 SECONDS (21-34) 05/28/18 07:15 Attending/Attestation - Attestation I have personally seen and examined this patient.: Yes I have fully participated in the care of the patient.: Yes I have reviewed all pertinent clinical information, including history, physical exam and plan: Yes Notes (Text): More responsive,trying to pull GT Constipation is on Miralax Assessment and the plan discussed with the resident
[2018-06-25 08:10] LABS: ALB/GLOB RATIO 1.1 (1.0-2.1); ALBUMIN 3.3 g/dL (3.5-5.0); ALT/SGPT 35 U/L (9-52); AST/SGOT 24 U/L (14-36); BLOOD UREA NITROGEN 17 mg/dL (7-17); CALCIUM 8.8 mg/dl (8.6-10.4); GFR NON-AFRICAN AMERICAN > 60
[2018-06-25] MEDS: (Novolog) Insulin Aspart, Recombinant 100 u/ml 10 ml vial SC SCH ×4 (08:37→22:03)
[2018-06-25] MEDS: Docusate-Senna 50 mg-8.6 mg Tab PO SCH ×2 (10:19→17:44)
[2018-06-25] MEDS: (Novolin 70/30) NPH/Regular 70/30 Units/ml 10 ml vial SC SCH ×2 (10:20→17:41)
[2018-06-25] MEDS ORDERED: Magnesium Hydroxide Susp 30 ml UD GT ONE (10:40)
[2018-06-25] MEDS: POLYETHYLENE GLYCOL 3350 17 GM/Dose PACKET GT SCH (11:23)
[2018-06-25] MEDS: (Lantus) Insulin Glargine, Recombinant SC SCH (22:02)
[2018-06-26] MEDS: Albuterol-Ipratrop 3 mg / 0.5 (3 ml) UD INH SCH ×6 (00:05→20:52)
--- NOTE | 2018-06-26 06:09 | CP.PCM.PN ---
<Lulu Merlos Y - Last Filed: 06/26/18 06:07> Subjective - Date & Time of Evaluation Date of Evaluation: 06/26/18 Time of Evaluation: 06:30 - Subjective Subjective: PGY-1 Medicine Progress Note for Dr. Negrete Patient was seen and examined at bedside in no acute distress. Nurse reports no overnight events. Patient unable to verbalize due to trach. Patient remains agitated but not combative. Objective - Vital Signs/Intake and Output Vital Signs (last 24 hours): Temp Pulse Resp BP Pulse Ox 98.1 F 61 20 111/62 100 06/25/18 23:35 06/25/18 23:35 06/25/18 23:35 06/25/18 23:35 06/25/18 23:35 Intake and Output: 06/25/18 06/26/18 18:59 06:59 Intake Total 1200 800 Output Total 700 300 Balance 500 500 - Medications Medications: Current Medications Albuterol/Ipratropium (Duoneb 3 Mg/0.5 Mg (3 Ml) Ud) 3 ml INH RQ4 [facility] Last Admin: 06/26/18 03:50 Dose: 3 ml Amlodipine Besylate (Norvasc) 10 mg PO DAILY [facility] Last Admin: 06/25/18 10:19 Dose: 10 mg Aspirin (Aspirin Chewable) 81 mg PO DAILY [facility] Last Admin: 06/25/18 10:19 Dose: 81 mg Bisacodyl (Dulcolax) 10 mg GA TID PRN PRN Reason: Constipation Last Admin: 06/25/18 11:24 Dose: 10 mg Clopidogrel Bisulfate (Plavix) 75 mg PO DAILY [facility] Last Admin: 05/22/18 10:07 Dose: 75 mg Dextrose (Dextrose 50% Inj) 0 ml IV STAT PRN; Protocol PRN Reason: Hypoglycemia Protocol Last Admin: 06/21/18 16:15 Dose: 50 ml Dextrose (Glutose 15) 15 gm PO ONCE PRN; Protocol PRN Reason: Hypoglycemia Protocol Famotidine (Pepcid) 20 mg GT DAILY [facility] Last Admin: 06/25/18 10:19 Dose: 20 mg Glucagon (Glucagen Diagnostic Kit) 1 mg IM STAT PRN; Protocol PRN Reason: Hypoglycemia Protocol Ibuprofen (Motrin Oral Susp) 200 mg PO Q6H PRN PRN Reason: Fever >100.4 F Last Admin: 06/26/18 01:55 Dose: 200 mg Insulin Aspart (Novolog) [address] [facility]; Protocol Last Admin: 06/25/18 22:03 Dose: Not Given Insulin Glargine (Lantus) 40 unit SC [facility] Last Admin: 06/25/18 22:02 Dose: Not Given Insulin Human Isoph/Insulin Regular (Novolin 70/30 (70/30 Units/Ml) 10 Ml) 15 units SC BID [facility] Last Admin: 06/25/18 17:41 Dose: Not Given Metoprolol Tartrate (Lopressor) 75 mg PO BID [facility] Last Admin: 06/25/18 17:41 Dose: Not Given Polyethylene Glycol (Miralax) 17 gm GT DAILY [facility] Last Admin: 06/25/18 11:23 Dose: 17 gm Rosuvastatin Calcium (Crestor) 5 mg PO [facility] Last Admin: 06/25/18 21:05 Dose: 5 mg Senna/Docusate Sodium (Senokot S 50 Mg-8.6 Mg) 1 tab PO BID [facility] Last Admin: 06/25/18 17:44 Dose: 1 tab Vitamin A (Vitamin A & D Oint Ud Foilpak) 1 ea TOP BID PRN PRN Reason: Dry skin Last Admin: 06/13/18 10:47 Dose: 1 ea - Labs Labs: 06/25/18 07:14 06/25/18 07:14 PT 16.8 SECONDS (9.7-12.2) H 05/28/18 07:15 INR 1.5 05/28/18 07:15 APTT 34 SECONDS (21-34) 05/28/18 07:15 - Constitutional Appears: Non-toxic, No Acute Distress, Chronically Ill - Head Exam Head Exam: ATRAUMATIC, NORMOCEPHALIC - Eye Exam Eye Exam: Normal appearance, PERRL - ENT Exam ENT Exam: Mucous Membranes Moist - Respiratory Exam Respiratory Exam: Clear to Ausculation Bilateral, NORMAL BREATHING PATTERN Additional comments: trach collar in place with no secretions - Cardiovascular Exam Cardiovascular Exam: REGULAR RHYTHM, +S1, +S2 - GI/Abdominal Exam GI & Abdominal Exam: Soft, Normal Bowel Sounds. absent: Tenderness Additional comments: PEG tube in place with no surrounding erythema - Extremities Exam Extremities Exam: Normal Capillary Refill. absent: Calf Tenderness Additional comments: contracted LE - Neurological Exam Neurological Exam: Alert, Awake Additional comments: nods or shakes head appropriately. tires easily - Psychiatric Exam Psychiatric exam: Depressed - Skin Skin Exam: Normal Color, Warm Assessment and Plan - Assessment and Plan (Free Text) Assessment: 52 yo F with PMHx of DM type II visiting from the [facility] [place] reported to be found unresponsive by on 05/01. Patient intubated on field, brought to ED where CODE STROKE was called. Admitted to ICU for evaluation/monitoring of anoxic brain injury. Patient noted on exam to have ring monge suggestive of attempted suicidal attempt by hanging. [employer] made aware of case and confirm high likelihood of suicide attempt. Patient s/p tracheostomy and PED tube feeding. Patient weaned off ventilator to trach collar with humidified oxygen. Downgraded to telemetry for further monitoring. Will need extensive PT. Per ENT, vocal cords functional, consider weaning off O2. Attemp jenny no supplemental O2 06/18 for approximately 5 minutes. Patient remained O2 saturating > 96% the entire time; however, she subsequently developed mucus plug that needed suctioning. Remains on trach collar at this time with further evaluation. Working aggressively with PT/OT/speech therapy, making significant progress and beginning to verbalize small syllable words. Plan: Anoxic Brain Injury- improving clinically - Aspiration precautions - Seizure precautions - Neurology on case, Dr. Duff/Guilherme - Turn and reposition q2h -PEG tube reinserted successfully -fenestrated trach collar -continue to wean off O2 -patient making progress, verbalizing 1-2 syllable words before fatigued -Aggressive PT/OT/ST -swallow evaluation recs appreciated -honey thick liquid pleasure feeds Acute Renal Injury with oliguria- improving - Likely due to dehydration - No HD needed - Nephrology recs (Dr. 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 -Na level wnl, continue to monitor -correct as needed Hypertension- chronic, stable - No pressors (was previously hypotensive) - Norvasc 10 mg PO daily Respiratory Failure resolved - Due to Asphyxiation - Laryngoscopy (06/18): vocal cords functional - s/p tracheotomy - Consider removal of trach collar - Mucomyst Q4H d/c'd (06/21) - Duonebs Q4H - Suction prn - Humidified O2, continue to wean as tolerated Fevers resolved - Afebrile since 06/04, currently off Abx - Ice packs, cooling blanket - Sputum cultures (05/25): yeast - s/p meropenum 1g Q8H & flagyl 500mg Q8H (total 13 days of treatment) - Motrin 200 mg Q6H PRN NSTEMI resolved - Elevated troponin- has normalized - ASA 81 mg PO daily (restarted 05/25) - Plavix 75mg PO daily (held - given drop in Hb) - Crestor 5 mg PO QHS - Cardiology consulted (Dr Gay) Leukocytosis resolved - Repeat CXR (05/21): slightly low lung volumes with mild crowded bronchovascular markings and minor bibasilar atelectasis - BCx (05/02): no growth - Repeat BCx (05/17): no growth - UA: leuk est 3+, +WBC, +RBC, nitrate - - UCx 05/06/18: no growth -repeat UCx (05/13, 05/17): yeast species - Tracheal Aspirate Cx 05/08/18: yeast - Alvarado changed 05/17 - Doppler b/l UE and LE: negative for DVTs Hyperkalemia resolved - Continue to monitor, correct as needed PPx, Diet, Disposition - DVT ppx: Heparin 5,000 Units SC Q8H - GI ppx: Pepcid 20mg GT daily - Diet: Tube feed, Vital 1.2, honey thick liquids (pleasure feeds only, per swallow eval) - Vitamin A&D - Code status: full code <Emmett Negrete - Last Filed: 06/26/18 11:04> Objective - Vital Signs/Intake and Output Vital Signs (last 24 hours): Temp Pulse Resp BP Pulse Ox 98 F 67 20 151/72 H 100 06/26/18 08:28 06/26/18 08:28 06/26/18 08:28 06/26/18 09:26 06/26/18 08:28 Intake and Output: 06/26/18 06/26/18 06:59 18:59 Intake Total 1400 Output Total 600 Balance 800 - Medications Medications: Current Medications Albuterol/Ipratropium (Duoneb 3 Mg/0.5 Mg (3 Ml) Ud) 3 ml INH RQ4 [facility] Last Admin: 06/26/18 07:29 Dose: 3 ml Amlodipine Besylate (Norvasc) 10 mg PO DAILY [facility] Last Admin: 06/26/18 09:25 Dose: 10 mg Aspirin (Aspirin Chewable) 81 mg PO DAILY [facility] Last Admin: 06/26/18 09:25 Dose: 81 mg Clopidogrel Bisulfate (Plavix) 75 mg PO DAILY [facility] Last Admin: 05/22/18 10:07 Dose: 75 mg Dextrose (Dextrose 50% Inj) 0 ml IV STAT PRN; Protocol PRN Reason: Hypoglycemia Protocol Last Admin: 06/21/18 16:15 Dose: 50 ml Dextrose (Glutose 15) 15 gm PO ONCE PRN; Protocol PRN Reason: Hypoglycemia Protocol Famotidine (Pepcid) 20 mg GT BID [facility] Glucagon (Glucagen Diagnostic Kit) 1 mg IM STAT PRN; Protocol PRN Reason: Hypoglycemia Protocol Sodium Chloride (Sodium Chloride 0.9%) 1,000 mls @ 100 mls/hr IV .Q10H [facility] Ibuprofen (Motrin Oral Susp) 200 mg PO Q6H PRN PRN Reason: Fever >100.4 F Last Admin: 06/26/18 09:23 Dose: 200 mg Insulin Aspart (Novolog) [address] [facility]; Protocol Last Admin: 06/26/18 08:32 Dose: 6 units Insulin Glargine (Lantus) 40 unit SC [facility] Last Admin: 06/25/18 22:02 Dose: Not Given Insulin Human Isoph/Insulin Regular (Novolin 70/30 (70/30 Units/Ml) 10 Ml) 15 units SC BID [facility] Last Admin: 06/26/18 09:27 Dose: 15 units Metoprolol Tartrate (Lopressor) 75 mg PO BID [facility] Last Admin: 06/26/18 09:26 Dose: 75 mg Polyethylene Glycol (Miralax) 17 gm GT BID [facility] Rosuvastatin Calcium (Crestor) 5 mg PO HS [facility] Last Admin: 06/25/18 21:05 Dose: 5 mg Senna/Docusate Sodium (Senokot S 50 Mg-8.6 Mg) 1 tab PO BID [facility] Last Admin: 06/26/18 09:24 Dose: 1 tab Vitamin A (Vitamin A & D Oint Ud Foilpak) 1 ea TOP BID PRN PRN Reason: Dry skin Last Admin: 06/13/18 10:47 Dose: 1 ea - Labs Labs: 06/26/18 06:59 06/26/18 06:59 PT 16.8 SECONDS (9.7-12.2) H 05/28/18 07:15 INR 1.5 05/28/18 07:15 APTT 34 SECONDS (21-34) 05/28/18 07:15 Attending/Attestation - Attestation I have personally seen and examined this patient.: Yes I have fully participated in the care of the patient.: Yes I have reviewed all pertinent clinical information, including history, physical exam and plan: Yes Notes (Text): Seen and examined s/p vomiting NO BM,Patient has pain left arm ? awake and trying to talk x rady-constipation We will hold feeding,Hold insulin start fluids. Increase Miralax twice a day,MOM 300cc once now,IF No BM try Enema Spoke to RN and patient's son at bedside
[2018-06-26 07:08] LABS: BASO % 0.8 % (0.0-2.0); EOS # 0.3 K/uL (0.0-0.7); EOS % 5.3 % (0.0-4.0); HEMOGLOBIN 9.4 g/dL (11.0-16.0); LYMPH # 1.5 K/uL (1.0-4.3); LYMPH % 28.9 % (20.0-40.0); MEAN CELL VOLUME 86.1 fL (81.0-99.0); MEAN CORPUSCULAR HEMOGLOBIN 28.1 pg (27.0-31.0); MEAN CORPUSCULAR HGB CONC 32.7 g/dL (33.0-37.0); MEAN PLATELET VOLUME 11.4 fL (7.2-11.7); MONO # 0.4 K/uL (0.0-0.8); MONO % 7.7 % (0.0-10.0); NEUT % 57.3 % (50.0-75.0); RBC 3.36 Mil/uL (3.80-5.20); RED CELL DISTRIBUTION WIDTH 17.2 % (11.5-14.5); WHITE BLOOD COUNT 5.3 K/uL (4.8-10.8)
[2018-06-26 07:32] LABS: ALBUMIN 3.1 g/dL (3.5-5.0); ALT/SGPT 35 U/L (9-52); AST/SGOT 33 U/L (14-36); BLOOD UREA NITROGEN 17 mg/dL (7-17); CALCIUM 8.8 mg/dl (8.6-10.4); GFR NON-AFRICAN AMERICAN > 60
[2018-06-26] MEDS: (Novolog) Insulin Aspart, Recombinant 100 u/ml 10 ml vial SC SCH ×4 (08:32→22:41)
[2018-06-26] MEDS: Docusate-Senna 50 mg-8.6 mg Tab PO SCH ×2 (09:24→18:57)
[2018-06-26] MEDS: (Novolin 70/30) NPH/Regular 70/30 Units/ml 10 ml vial SC SCH (09:27)
[2018-06-26] MEDS: POLYETHYLENE GLYCOL 3350 17 GM/Dose PACKET GT SCH ×2 (09:27→18:56)
[2018-06-26] MEDS ORDERED: Magnesium Hydroxide Susp 30 ml UD GT ONE (10:12)
[2018-06-26] MEDS: Sodium Chloride 0.9% 1,000 ML IV SCH ×2 (10:40→22:43)
--- NOTE | 2018-06-26 10:48 | RAD ---
Date of service: 06/26/2018 HISTORY: vomying/constipation COMPARISON: None available. FINDINGS: BOWEL: Normal abdominal bowel gas pattern. Oral contrast seen throughout the colon. Percutaneous gastrostomy tube noted. No gross evidence of free intraperitoneal air although no upright film is submitted. No hepatic or splenic enlargement. No masses or abnormal calcifications. BONES: Normal. OTHER FINDINGS: None. IMPRESSION: Normal bowel gas pattern.
[2018-06-27] MEDS: Albuterol-Ipratrop 3 mg / 0.5 (3 ml) UD INH SCH ×6 (00:45→19:25)
--- NOTE | 2018-06-27 03:28 | CP.PCM.PN ---
Subjective - Date & Time of Evaluation Date of Evaluation: 06/27/18 Time of Evaluation: 06:30 - Subjective Subjective: PGY-1 Medicine Progress Note for Dr. Negrete Patient was seen and examined at bedside in no acute distress. Nurse reports no overnight events. Patient unable to verbalize due to trach. Patient remains agitated but not combative. Objective - Vital Signs/Intake and Output Vital Signs (last 24 hours): Temp Pulse Resp BP Pulse Ox 97.9 F 65 20 124/68 99 06/26/18 23:34 06/26/18 23:34 06/26/18 23:34 06/26/18 23:34 06/26/18 23:34 Intake and Output: 06/26/18 06/27/18 18:59 06:59 Intake Total 450 920 Output Total 600 400 Balance -150 520 - Medications Medications: Current Medications Albuterol/Ipratropium (Duoneb 3 Mg/0.5 Mg (3 Ml) Ud) 3 ml INH RQ4 [facility] Last Admin: 06/27/18 03:07 Dose: 3 ml Amlodipine Besylate (Norvasc) 10 mg PO DAILY [facility] Last Admin: 06/26/18 09:25 Dose: 10 mg Aspirin (Aspirin Chewable) 81 mg PO DAILY [facility] Last Admin: 06/26/18 09:25 Dose: 81 mg Clopidogrel Bisulfate (Plavix) 75 mg PO DAILY [facility] Last Admin: 05/22/18 10:07 Dose: 75 mg Dextrose (Dextrose 50% Inj) 0 ml IV STAT PRN; Protocol PRN Reason: Hypoglycemia Protocol Last Admin: 06/21/18 16:15 Dose: 50 ml Dextrose (Glutose 15) 15 gm PO ONCE PRN; Protocol PRN Reason: Hypoglycemia Protocol Famotidine (Pepcid) 20 mg GT BID [facility] Last Admin: 06/26/18 18:57 Dose: 20 mg Glucagon (Glucagen Diagnostic Kit) 1 mg IM STAT PRN; Protocol PRN Reason: Hypoglycemia Protocol Sodium Chloride (Sodium Chloride 0.9%) 1,000 mls @ 100 mls/hr IV .Q10H [facility] Last Admin: 06/26/18 22:43 Dose: 100 mls/hr Ibuprofen (Motrin Oral Susp) 200 mg PO Q6H PRN PRN Reason: Fever >100.4 F Last Admin: 06/27/18 02:55 Dose: 200 mg Insulin Aspart (Novolog) 0 unit SC [facility]; Protocol Last Admin: 06/26/18 22:41 Dose: Not Given Insulin Glargine (Lantus) 40 unit SC [facility] Last Admin: 06/25/18 22:02 Dose: Not Given Insulin Human Isoph/Insulin Regular (Novolin 70/30 (70/30 Units/Ml) 10 Ml) 15 units SC BID [facility] Last Admin: 06/26/18 09:27 Dose: 15 units Metoprolol Tartrate (Lopressor) 75 mg PO BID [facility] Last Admin: 06/26/18 18:56 Dose: 75 mg Polyethylene Glycol (Miralax) 17 gm GT BID [facility] Last Admin: 06/26/18 18:56 Dose: 17 gm Rosuvastatin Calcium (Crestor) 5 mg PO [facility] Last Admin: 06/26/18 22:41 Dose: 5 mg Senna/Docusate Sodium (Senokot S 50 Mg-8.6 Mg) 1 tab PO BID [facility] Last Admin: 06/26/18 18:57 Dose: 1 tab Vitamin A (Vitamin A & D Oint Ud Foilpak) 1 ea TOP BID PRN PRN Reason: Dry skin Last Admin: 06/13/18 10:47 Dose: 1 ea - Labs Labs: 06/26/18 06:59 06/26/18 06:59 PT 16.8 SECONDS (9.7-12.2) H 05/28/18 07:15 INR 1.5 05/28/18 07:15 APTT 34 SECONDS (21-34) 05/28/18 07:15 - Constitutional Appears: Non-toxic, No Acute Distress, Chronically Ill - Head Exam Head Exam: ATRAUMATIC, NORMOCEPHALIC - Eye Exam Eye Exam: Normal appearance, PERRL - ENT Exam ENT Exam: Mucous Membranes Moist - Respiratory Exam Respiratory Exam: Clear to Ausculation Bilateral, NORMAL BREATHING PATTERN Additional comments: trach collar in place with no secretions - Cardiovascular Exam Cardiovascular Exam: REGULAR RHYTHM, +S1, +S2 - GI/Abdominal Exam GI & Abdominal Exam: Soft, Normal Bowel Sounds. absent: Tenderness Additional comments: PEG tube in place with no surrounding erythema - Extremities Exam Extremities Exam: Normal Capillary Refill. absent: Calf Tenderness Additional comments: contracted LE - Neurological Exam Neurological Exam: Alert, Awake Additional comments: nods or shakes head appropriately. tires easily - Psychiatric Exam Psychiatric exam: Depressed - Skin Skin Exam: Normal Color, Warm Assessment and Plan - Assessment and Plan (Free Text) Assessment: 52 yo F with PMHx of DM type II visiting from the [place] reported to be found unresponsive by on 05/01. Patient intubated on fie ld, brought to ED where CODE STROKE was called. Admitted to ICU for evaluation/monitoring of anoxic brain injury. Patient noted on exam to have ring monge suggestive of attempted suicidal attempt by hanging. [employer] made aware of case and confirm high likelihood of suicide attempt. Patient s/p tracheostomy and PED tube feeding. Patient weaned off ventilator to trach collar with humidified oxygen. Downgraded to telemetry for further monitoring. Will need extensive PT. Per ENT, vocal cords functional, consider weaning off O2. Attempted no supplemental O2 06/18 for approximately 5 minutes. Patient remained O2 saturating > 96% the entire time; however, she subsequently developed mucus plug that needed suctioning. Remains on trach collar at this time with further evaluation. Working aggressively with PT/OT/speech therapy, making significant progress and beginning to verbalize small syllable words. Plan: Anoxic Brain Injury- improving clinically - Aspiration precautions - Seizure precautions - Neurology on case, Dr. Duff/Guilherme - Turn and reposition q2h -PEG tube reinserted successfully -fenestrated trach collar -continue to wean off O2 -patient making progress, verbalizing 1-2 syllable words before fatigued -Aggressive PT/OT/ST -swallow evaluation recs appreciated -honey thick liquid pleasure feeds Acute Renal Injury with oliguria- improving - Likely due to dehydration - No HD needed - Nephrology recs (Dr. 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 -Na level wnl, continue to monitor -correct as needed Hypertension- chronic, stable - No pressors (was previously hypotensive) - Norvasc 10 mg PO daily Respiratory Failure resolved - Due to Asphyxiation - Laryngoscopy (06/18): vocal cords functional - s/p tracheotomy - Consider removal of trach collar - Mucomyst Q4H d/c'd (06/21) - Duonebs Q4H - Suction prn - Humidified O2, continue to wean as tolerated Fevers resolved - Afebrile since 06/04, currently off Abx - Ice packs, cooling blanket - Sputum cultures (05/25): yeast - s/p meropenum 1g Q8H & flagyl 500mg Q8H (total 13 days of treatment) - Motrin 200 mg Q6H PRN NSTEMI resolved - Elevated troponin- has normalized - ASA 81 mg PO daily (restarted 05/25) - Plavix 75mg PO daily (held - given drop in Hb) - Crestor 5 mg PO QHS - Cardiology consulted (Dr Gay) Leukocytosis resolved - Repeat CXR (05/21): slightly low lung volumes with mild crowded bronchovascular markings and minor bibasilar atelectasis - BCx (05/02): no growth - Repeat BCx (05/17): no growth - UA: leuk est 3+, +WBC, +RBC, nitrate - - UCx 05/06/18: no growth -repeat UCx (05/13, 05/17): yeast species - Tracheal Aspirate Cx 05/08/18: yeast - Alvarado changed 05/17 - Doppler b/l UE and LE: negative for DVTs Hyperkalemia resolved - Continue to monitor, correct as needed PPx, Diet, Disposition - DVT ppx: Heparin 5,000 Units SC Q8H - GI ppx: Pepcid 20mg GT bid - Diet: Tube feed, Vital 1.2, honey thick liquids (pleasure feeds only, per swallow eval) - Vitamin A&D - Code status: full code
[2018-06-27] MEDS: Sodium Chloride 0.9% 1,000 ML IV SCH ×2 (07:30→21:31)
[2018-06-27 07:58] LABS: BASO # 0.1 K/uL (0.0-0.2); BASO % 0.9 % (0.0-2.0); EOS # 0.3 K/uL (0.0-0.7); EOS % 4.4 % (0.0-4.0); HEMOGLOBIN 9.6 g/dL (11.0-16.0); LYMPH # 1.9 K/uL (1.0-4.3); LYMPH % 30.9 % (20.0-40.0); MEAN CELL VOLUME 86.2 fL (81.0-99.0); MEAN CORPUSCULAR HEMOGLOBIN 28.5 pg (27.0-31.0); MEAN PLATELET VOLUME 12.1 fL (7.2-11.7); MONO # 0.4 K/uL (0.0-0.8); MONO % 6.9 % (0.0-10.0); NEUT # 3.6 K/uL (1.8-7.0); NEUT % 56.9 % (50.0-75.0); RBC 3.38 Mil/uL (3.80-5.20); RED CELL DISTRIBUTION WIDTH 16.9 % (11.5-14.5); WHITE BLOOD COUNT 6.3 K/uL (4.8-10.8)
[2018-06-27 08:12] LABS: ALBUMIN 3.3 g/dL (3.5-5.0); ALT/SGPT 38 U/L (9-52); AST/SGOT 40 U/L (14-36); BLOOD UREA NITROGEN 12 mg/dL (7-17); CALCIUM 8.8 mg/dl (8.6-10.4); GFR NON-AFRICAN AMERICAN > 60
[2018-06-27] MEDS: (Novolog) Insulin Aspart, Recombinant 100 u/ml 10 ml vial SC SCH ×4 (08:30→21:40)
[2018-06-27] MEDS: Docusate-Senna 50 mg-8.6 mg Tab PO SCH ×2 (10:28→18:27)
[2018-06-27] MEDS: POLYETHYLENE GLYCOL 3350 17 GM/Dose PACKET GT SCH ×2 (10:29→18:26)
[2018-06-28] MEDS: Albuterol-Ipratrop 3 mg / 0.5 (3 ml) UD INH SCH ×5 (00:42→16:17)
[2018-06-28] MEDS: Sodium Chloride 0.9% 1,000 ML IV SCH ×5 (02:15→23:09)
[2018-06-28 06:28] LABS: BASO % 0.7 % (0.0-2.0); EOS # 0.2 K/uL (0.0-0.7); EOS % 2.8 % (0.0-4.0); HEMOGLOBIN 10.2 g/dL (11.0-16.0); LYMPH % 26.8 % (20.0-40.0); MEAN CELL VOLUME 86.6 fL (81.0-99.0); MEAN CORPUSCULAR HEMOGLOBIN 28.6 pg (27.0-31.0); MEAN CORPUSCULAR HGB CONC 33.1 g/dL (33.0-37.0); MEAN PLATELET VOLUME 11.6 fL (7.2-11.7); MONO # 0.4 K/uL (0.0-0.8); MONO % 5.4 % (0.0-10.0); NEUT # 4.7 K/uL (1.8-7.0); NEUT % 64.3 % (50.0-75.0); RBC 3.57 Mil/uL (3.80-5.20); RED CELL DISTRIBUTION WIDTH 16.9 % (11.5-14.5); WHITE BLOOD COUNT 7.3 K/uL (4.8-10.8)
[2018-06-28 06:48] LABS: ALBUMIN 3.4 g/dL (3.5-5.0); ALT/SGPT 33 U/L (9-52); BLOOD UREA NITROGEN 7 mg/dL (7-17); CALCIUM 8.8 mg/dl (8.6-10.4); GFR NON-AFRICAN AMERICAN > 60
[2018-06-28 06:52] LABS: AST/SGOT 36 U/L (14-36)
--- NOTE | 2018-06-28 07:52 | CP.PCM.PN ---
<Montez Miles - Last Filed: 06/28/18 13:11> Subjective - Date & Time of Evaluation Date of Evaluation: 06/28/18 Time of Evaluation: 07:52 - Subjective Subjective: PGY-1 Medicine Progress Note for Dr. Sheikh's service Patient seen and examined at bedside this AM, in no acute distress. Patient continues to be slightly agitated, has not had BM for quite some team. Per overnight resident, PEG feeds were held. 12 pt ROS unattainable due to patient's clinical status. Objective - Vital Signs/Intake and Output Vital Signs (last 24 hours): Temp Pulse Resp BP Pulse Ox 97.7 F 78 20 154/81 H 98 06/28/18 07:44 06/28/18 07:44 06/28/18 07:44 06/28/18 07:44 06/28/18 07:44 Intake and Output: 06/28/18 06/28/18 06:59 18:59 Intake Total 920 Output Total 700 Balance 220 - Medications Medications: Current Medications Albuterol/Ipratropium (Duoneb 3 Mg/0.5 Mg (3 Ml) Ud) 3 ml INH RQ4 [facility] Last Admin: 06/28/18 03:17 Dose: 3 ml Amlodipine Besylate (Norvasc) 10 mg PO DAILY [facility] Last Admin: 06/27/18 10:28 Dose: 10 mg Aspirin (Aspirin Chewable) 81 mg PO DAILY [facility] Last Admin: 06/27/18 10:29 Dose: 81 mg Clopidogrel Bisulfate (Plavix) 75 mg PO DAILY [facility] Last Admin: 05/22/18 10:07 Dose: 75 mg Dextrose (Dextrose 50% Inj) 0 ml IV STAT PRN; Protocol PRN Reason: Hypoglycemia Protocol Last Admin: 06/21/18 16:15 Dose: 50 ml Dextrose (Glutose 15) 15 gm PO ONCE PRN; Protocol PRN Reason: Hypoglycemia Protocol Famotidine (Pepcid) 20 mg GT BID [facility] Last Admin: 06/27/18 18:27 Dose: 20 mg Glucagon (Glucagen Diagnostic Kit) 1 mg IM STAT PRN; Protocol PRN Reason: Hypoglycemia Protocol Sodium Chloride (Sodium Chloride 0.9%) 1,000 mls @ 100 mls/hr IV .Q10H [facility] Last Admin: 06/28/18 06:55 Dose: 100 mls/hr Ibuprofen (Motrin Oral Susp) 200 mg PO Q6H PRN PRN Reason: Fever >100.4 F Last Admin: 06/28/18 03:36 Dose: 200 mg Insulin Aspart (Novolog) 0 unit SC [facility]; Protocol Last Admin: 06/27/18 21:40 Dose: Not Given Insulin Glargine (Lantus) 40 unit SC [facility] Last Admin: 06/25/18 22:02 Dose: Not Given Insulin Human Isoph/Insulin Regular (Novolin 70/30 (70/30 Units/Ml) 10 Ml) 15 units SC BID [facility] Last Admin: 06/26/18 09:27 Dose: 15 units Metoprolol Tartrate (Lopressor) 75 mg PO BID [facility] Last Admin: 06/27/18 18:26 Dose: 75 mg Polyethylene Glycol (Miralax) 17 gm GT BID [facility] Last Admin: 06/27/18 18:26 Dose: 17 gm Rosuvastatin Calcium (Crestor) 5 mg PO [facility] Last Admin: 06/27/18 21:24 Dose: 5 mg Senna/Docusate Sodium (Senokot S 50 Mg-8.6 Mg) 1 tab PO BID [facility] Last Admin: 06/27/18 18:27 Dose: 1 tab Vitamin A (Vitamin A & D Oint Ud Foilpak) 1 ea TOP BID PRN PRN Reason: Dry skin Last Admin: 06/13/18 10:47 Dose: 1 ea - Labs Labs: 06/28/18 06:19 06/28/18 06:19 PT 16.8 SECONDS (9.7-12.2) H 05/28/18 07:15 INR 1.5 05/28/18 07:15 APTT 34 SECONDS (21-34) 05/28/18 07:15 - Constitutional Appears: Non-toxic, No Acute Distress, Chronically Ill - Head Exam Head Exam: ATRAUMATIC, NORMAL INSPECTION, NORMOCEPHALIC - Eye Exam Eye Exam: Normal appearance, PERRL - ENT Exam ENT Exam: Mucous Membranes Moist, Normal Exam - Neck Exam Additional comments: trach collar in place - Respiratory Exam Respiratory Exam: Clear to Ausculation Bilateral, NORMAL BREATHING PATTERN. absent: Accessory Muscle Use, Rales, Rhonchi, Wheezes, Respiratory Distress, Stridor - Cardiovascular Exam Cardiovascular Exam: REGULAR RHYTHM, +S1, +S2 - GI/Abdominal Exam GI & Abdominal Exam: Soft, Normal Bowel Sounds. absent: Distended, Firm, Guarding, Rigid, Tenderness, Organomegaly Additional comments: PEG tube intact with no surrounding erythema - Extremities Exam Extremities Exam: Normal Capillary Refill. absent: Calf Tenderness, Pedal Edema Additional comments: contracted b/l LE - Neurological Exam Neurological Exam: Alert, Awake Additional comments: nods or shakes head appropriately to questions asked. Can verbalize 1-2 syllable words, tires easily - Skin Skin Exam: Dry, Intact, Normal Color, Warm Assessment and Plan - Assessment and Plan (Free Text) Assessment: 52 yo F with PMHx of DM type II visiting from the [place] reported to be found unresponsive by on 05/01. Patient intubated on field, brought to ED where CODE STROKE was called. Admitted to ICU for evaluation/monitoring of anoxic brain injury. Patient noted on exam to have ring monge suggestive of attempted suicidal attempt by hanging. [employer] made aware of case and confirm high likelihood of suicide attempt. Patient s/p tracheostomy and PED tube feeding. Patient weaned off ventilator to trach collar with humidified oxygen. Downgraded to telemetry for further monitoring. Will need extensive PT. Per ENT, vocal cords functional, consider weaning off O2. Attempted no supplemental O2 06/18 for approximately 5 minutes. Patient remained O2 saturating > 96% the entire time; however, she subsequently developed mucus plug that needed suctioning. Remains on trach collar at this time with further evaluation. Working aggressively with PT/OT/speech therapy, making significant progress and beginning to verbalize small syllable words. Plan: Anoxic Brain Injury- improving clinically - Aspiration precautions - Seizure precautions - Neurology on case, Dr. Duff/Guliherme - Turn and reposition q2h -PEG tube reinserted successfully -fenestrated trach collar -continue to wean off O2 -patient making progress, verbalizing 1-2 syllable words before fatigued -Aggressive PT/OT/ST -swallow evaluation recs appreciated -honey thick liquid pleasure feeds Acute Renal Injury with oliguria- improving - Likely due to dehydration - No HD needed - Nephrology recs (Dr. 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 -Na level wnl, continue to monitor -correct as needed Hypertension- chronic, stable - No pressors (was previously hypotensive) - Norvasc 10 mg PO daily Respiratory Failure resolved - Due to Asphyxiation - Laryngoscopy (06/18): vocal cords functional - s/p tracheotomy - Consider removal of trach collar - Mucomyst Q4H d/c'd (06/21) - Duonebs Q4H - Suction prn - Humidified O2, continue to wean as tolerated Fevers resolved - Afebrile since 06/04, currently off Abx - Ice packs, cooling blanket - Sputum cultures (05/25): yeast - s/p meropenum 1g Q8H & flagyl 500mg Q8H (total 13 days of treatment) - Motrin 200 mg Q6H PRN NSTEMI resolved - Elevated troponin- has normalized - ASA 81 mg PO daily (restarted 05/25) - Plavix 75mg PO daily (held - given drop in Hb) - Crestor 5 mg PO QHS - Cardiology consulted (Dr Gay) Leukocytosis resolved - Repeat CXR (05/21): slightly low lung volumes with mild crowded bronchovascular markings and minor bibasilar atelectasis - BCx (05/02): no growth - Repeat BCx (05/17): no growth - UA: leuk est 3+, +WBC, +RBC, nitrate - - UCx 05/06/18: no growth -repeat UCx (05/13, 05/17): yeast species - Tracheal Aspirate Cx 05/08/18: yeast - Alvarado changed 05/17 - Doppler b/l UE and LE: negative for DVTs Hyperkalemia resolved - Continue to monitor, correct as needed PPx, Diet, Disposition - DVT ppx: Heparin 5,000 Units SC Q8H - GI ppx: Pepcid 20mg GT bid - Diet: Tube feed, Vital 1.2, honey thick liquids (pleasure feeds only, per swallow eval) - Vitamin A&D - Code status: full code <Yann Sheikh H - Last Filed: 06/28/18 14:31> Objective - Vital Signs/Intake and Output Vital Signs (last 24 hours): Temp Pulse Resp BP Pulse Ox 97.7 F 78 20 154/81 H 98 06/28/18 07:44 06/28/18 07:44 06/28/18 07:44 06/28/18 10:38 06/28/18 07:44 Intake and Output: 06/28/18 06/28/18 06:59 18:59 Intake Total 920 Output Total 700 Balance 220 - Medications Medications: Current Medications Albuterol/Ipratropium (Duoneb 3 Mg/0.5 Mg (3 Ml) Ud) 3 ml INH RQ4 [facility] Last Admin: 06/28/18 11:30 Dose: 3 ml Amlodipine Besylate (Norvasc) 10 mg PO DAILY [facility] Last Admin: 06/28/18 10:38 Dose: 10 mg Aspirin (Aspirin Chewable) 81 mg PO DAILY [facility] Last Admin: 06/28/18 10:39 Dose: 81 mg Clopidogrel Bisulfate (Plavix) 75 mg PO DAILY [facility] Last Admin: 05/22/18 10:07 Dose: 75 mg Dextrose (Dextrose 50% Inj) 0 ml IV STAT PRN; Protocol PRN Reason: Hypoglycemia Protocol Last Admin: 06/21/18 16:15 Dose: 50 ml Dextrose (Glutose 15) 15 gm PO ONCE PRN; Protocol PRN Reason: Hypoglycemia Protocol Famotidine (Pepcid) 20 mg GT BID [facility] Last Admin: 06/28/18 10:39 Dose: 20 mg Glucagon (Glucagen Diagnostic Kit) 1 mg IM STAT PRN; Protocol PRN Reason: Hypoglycemia Protocol Sodium Chloride (Sodium Chloride 0.9%) 1,000 mls @ 100 mls/hr IV .Q10H [facility] Last Admin: 06/28/18 12:58 Dose: Not Given Ibuprofen (Motrin Oral Susp) 200 mg PO Q6H PRN PRN Reason: Fever >100.4 F Last Admin: 06/28/18 03:36 Dose: 200 mg Insulin Aspart (Novolog) 0 unit SC ACHS [facility]; Protocol Last Admin: 06/28/18 11:21 Dose: Not Given Insulin Glargine (Lantus) 40 unit SC HS [facility] Last Admin: 06/25/18 22:02 Dose: Not Given Insulin Human Isoph/Insulin Regular (Novolin 70/30 (70/30 Units/Ml) 10 Ml) 15 units SC BID [facility] Last Admin: 06/26/18 09:27 Dose: 15 units Metoprolol Tartrate (Lopressor) 75 mg PO BID [facility] Last Admin: 06/28/18 10:38 Dose: 75 mg Polyethylene Glycol (Miralax) 17 gm GT BID [facility] Last Admin: 06/28/18 10:39 Dose: 17 gm Rosuvastatin Calcium (Crestor) 5 mg PO HS [facility] Last Admin: 06/27/18 21:24 Dose: 5 mg Senna/Docusate Sodium (Senokot S 50 Mg-8.6 Mg) 1 tab PO BID [facility] Last Admin: 06/28/18 10:38 Dose: 1 tab Vitamin A (Vitamin A & D Oint Ud Foilpak) 1 ea TOP BID PRN PRN Reason: Dry skin Last Admin: 06/13/18 10:47 Dose: 1 ea - Labs Labs: 06/28/18 06:19 06/28/18 06:19 PT 16.8 SECONDS (9.7-12.2) H 05/28/18 07:15 INR 1.5 05/28/18 07:15 APTT 34 SECONDS (21-34) 05/28/18 07:15 Attending/Attestation - Attestation I have personally seen and examined this patient.: Yes I have fully participated in the care of the patient.: Yes I have reviewed all pertinent clinical information, including history, physical exam and plan: Yes Notes (Text): 06/28/18 14:31 Medical attending: Patient was seen and examined by me. Agree with the above note by the resident At this moment no new news. Yesterday PEG feeds on hold because of no BM and there was concern for vommitting so enema was given today Yann Sheikh
[2018-06-28] MEDS: (Novolog) Insulin Aspart, Recombinant 100 u/ml 10 ml vial SC SCH ×4 (08:03→22:30)
[2018-06-28] MEDS: Docusate-Senna 50 mg-8.6 mg Tab PO SCH ×2 (10:38→17:45)
[2018-06-28] MEDS: POLYETHYLENE GLYCOL 3350 17 GM/Dose PACKET GT SCH ×2 (10:39→17:45)
[2018-06-29] MEDS: Albuterol-Ipratrop 3 mg / 0.5 (3 ml) UD INH SCH ×6 (00:58→19:29)
--- NOTE | 2018-06-29 02:27 | CP.PCM.PN ---
<Phillip Hall - Last Filed: 06/29/18 02:24> Subjective - Date & Time of Evaluation Date of Evaluation: 06/29/18 Time of Evaluation: 02:24 - Subjective Subjective: Progress Note Patient seen and examined at bedside. She does not appear to be in any acute distress. As per nursing staff, patient had bowel movement at 3pm yesterday. Unable to obtain ROS given mental status. Objective - Vital Signs/Intake and Output Vital Signs (last 24 hours): Temp Pulse Resp BP Pulse Ox 97.9 F 60 20 149/73 100 06/29/18 00:00 06/29/18 00:00 06/29/18 00:00 06/29/18 00:00 06/29/18 00:00 Intake and Output: 06/28/18 06/29/18 18:59 06:59 Intake Total 800 800 Output Total 700 650 Balance 100 150 - Medications Medications: Current Medications Albuterol/Ipratropium (Duoneb 3 Mg/0.5 Mg (3 Ml) Ud) 3 ml INH RQ4 [facility] Last Admin: 06/29/18 00:58 Dose: 3 ml Amlodipine Besylate (Norvasc) 10 mg PO DAILY [facility] Last Admin: 06/28/18 10:38 Dose: 10 mg Aspirin (Aspirin Chewable) 81 mg PO DAILY [facility] Last Admin: 06/28/18 10:39 Dose: 81 mg Clopidogrel Bisulfate (Plavix) 75 mg PO DAILY [facility] Last Admin: 05/22/18 10:07 Dose: 75 mg Dextrose (Dextrose 50% Inj) 0 ml IV STAT PRN; Protocol PRN Reason: Hypoglycemia Protocol Last Admin: 06/21/18 16:15 Dose: 50 ml Dextrose (Glutose 15) 15 gm PO ONCE PRN; Protocol PRN Reason: Hypoglycemia Protocol Famotidine (Pepcid) 20 mg GT BID [facility] Last Admin: 06/28/18 17:46 Dose: 20 mg Glucagon (Glucagen Diagnostic Kit) 1 mg IM STAT PRN; Protocol PRN Reason: Hypoglycemia Protocol Sodium Chloride (Sodium Chloride 0.9%) 1,000 mls @ 100 mls/hr IV .Q10H [facility] Last Admin: 06/28/18 23:09 Dose: Not Given Ibuprofen (Motrin Oral Susp) 200 mg PO Q6H PRN PRN Reason: Fever >100.4 F Last Admin: 06/28/18 23:26 Dose: 200 mg Insulin Aspart (Novolog) 0 unit SC [facility]; Protocol Last Admin: 06/28/18 22:30 Dose: Not Given Insulin Glargine (Lantus) 40 unit SC [facility] Last Admin: 06/25/18 22:02 Dose: Not Given Insulin Human Isoph/Insulin Regular (Novolin 70/30 (70/30 Units/Ml) 10 Ml) 15 units SC BID [facility] Last Admin: 06/26/18 09:27 Dose: 15 units Metoprolol Tartrate (Lopressor) 75 mg PO BID [facility] Last Admin: 06/28/18 17:45 Dose: 75 mg Polyethylene Glycol (Miralax) 17 gm GT BID [facility] Last Admin: 06/28/18 17:45 Dose: 17 gm Rosuvastatin Calcium (Crestor) 5 mg PO [facility] Last Admin: 06/28/18 22:29 Dose: 5 mg Senna/Docusate Sodium (Senokot S 50 Mg-8.6 Mg) 1 tab PO BID [facility] Last Admin: 06/28/18 17:45 Dose: 1 tab Vitamin A (Vitamin A & D Oint Ud Foilpak) 1 ea TOP BID PRN PRN Reason: Dry skin Last Admin: 06/13/18 10:47 Dose: 1 ea - Labs Labs: 06/28/18 06:19 06/28/18 06:19 PT 16.8 SECONDS (9.7-12.2) H 05/28/18 07:15 INR 1.5 05/28/18 07:15 APTT 34 SECONDS (21-34) 05/28/18 07:15 - Constitutional Appears: Non-toxic, No Acute Distress, Chronically Ill - Head Exam Head Exam: ATRAUMATIC, NORMOCEPHALIC - Eye Exam Eye Exam: PERRL - Neck Exam Additional comments: Trach collar in place - Respiratory Exam Respiratory Exam: Clear to Ausculation Bilateral. absent: Rales, Rhonchi, Wheezes, Respiratory Distress, Stridor - Cardiovascular Exam Cardiovascular Exam: REGULAR RHYTHM, +S1, +S2. absent: Gallop, Rubs, Murmur - GI/Abdominal Exam GI & Abdominal Exam: Soft, Normal Bowel Sounds. absent: Distended, Firm, Guarding, Rigid Additional comments: Peg tube intact with no surrounding redness - Extremities Exam Extremities Exam: Normal Capillary Refill. absent: Calf Tenderness, Pedal Edema Additional comments: Lower extremities contracted - Neurological Exam Neurological Exam: Awake Additional comments: Can nod or shake head to questions. - Skin Skin Exam: Dry, Intact, Warm Assessment and Plan - Assessment and Plan (Free Text) Assessment: 52 year old female with PMHx of DM type II visiting from the [place] reported to be found unresponsive by on 05/01. Patient intubated on field, brought to ED where CODE STROKE was called. Admitted to ICU for evaluation/monitoring of anoxic brain injury. Patient noted on exam to have ring monge suggestive of attempted suicidal attempt by hanging. [employer] made aware of case and confirm high likelihood of suicide attempt. Patient s/p tracheostomy and PED tube feeding. Patient weaned off ventilator to trach collar with humidified oxygen. Downgraded to telemetry for further monitoring. Will need extensive PT. Per ENT, vocal cords functional, consider weaning off O2. Attempted no supplemental O2 06/18 for approximately 5 minutes. Patient remained O2 saturating > 96% the entire time; however, she subsequently developed mucus plug that needed suctioning. Remains on trach collar at this time with further evaluation. Working aggressively with PT/OT/speech therapy, making significant progress and beginning to verbalize small syllable wo Plan: Anoxic Brain Injury- improving clinically - Aspiration precautions - Seizure precautions - Neurology on case, Dr. Duff/Guilherme - Turn and reposition q2h - PEG tube reinserted successfully - fenestrated trach collar -continue to wean off O2 -patient making progress, verbalizing 1-2 syllable words before fatigued - Aggressive PT/OT/ST - swallow evaluation recs appreciated -honey thick liquid pleasure feeds Acute Renal Injury with oliguria- improving - Likely due to dehydration - No HD needed - Nephrology recs (Dr. 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 -Na level wnl, continue to monitor -correct as needed Hypertension- chronic, stable - No pressors (was previously hypotensive) - Norvasc 10 mg PO daily Respiratory Failure, resolved - Due to Asphyxiation - Laryngoscopy (06/18): vocal cords functional - s/p tracheotomy - Mucomyst Q4H d/c'd (06/21) - Duonebs Q4H - Suction prn - Humidified O2, continue to wean as tolerated Fevers, resolved - Afebrile since 06/04, currently off Abx - Ice packs, cooling blanket - Sputum cultures (05/25): yeast - s/p meropenum 1g Q8H & flagyl 500mg Q8H (total 13 days of treatment) - Motrin 200 mg Q6H PRN NSTEMI, resolved - Elevated troponin- has normalized - ASA 81 mg PO daily (restarted 05/25) - Plavix 75mg PO daily (held - given drop in Hb) - Crestor 5 mg PO QHS - Cardiology consulted (Dr Gay) Leukocytosis, resolved - Repeat CXR (05/21): slightly low lung volumes with mild crowded bronchovascular markings and minor bibasilar atelectasis - BCx (05/02): no growth - Repeat BCx (05/17): no growth - UA: leuk est 3+, +WBC, +RBC, nitrate - - UCx 05/06/18: no growth -repeat UCx (05/13, 05/17): yeast species - Tracheal Aspirate Cx 05/08/18: yeast - Alvarado changed 05/17 - Doppler b/l UE and LE: negative for DVTs Hyperkalemia, resolved - Continue to monitor, correct as needed PPx, Diet, Disposition - DVT ppx: Heparin held given drop in Hb. - GI ppx: Pepcid 20mg GT bid - Diet: Tube feed, Vital 1.2, honey thick liquids (pleasure feeds only, per swallow eval) - Vitamin A&D - Code status: full code Case discussed with Dr. Kori Hall, PGY1 <Yann Sheikh - Last Filed: 06/29/18 12:44> Objective - Vital Signs/Intake and Output Vital Signs (last 24 hours): Temp Pulse Resp BP Pulse Ox 97.2 F L 72 20 154/79 H 100 06/29/18 07:49 06/29/18 07:49 06/29/18 07:49 06/29/18 10:14 06/29/18 07:49 Intake and Output: 06/29/18 06/29/18 06:59 18:59 Intake Total 800 Output Total 650 Balance 150 - Medications Medications: Current Medications Albuterol/Ipratropium (Duoneb 3 Mg/0.5 Mg (3 Ml) Ud) 3 ml INH RQ4 [facility] Last Admin: 06/29/18 11:30 Dose: 3 ml Amlodipine Besylate (Norvasc) 10 mg PO DAILY [facility] Last Admin: 06/29/18 10:14 Dose: 10 mg Aspirin (Aspirin Chewable) 81 mg PO DAILY [facility] Last Admin: 06/29/18 10:15 Dose: 81 mg Clopidogrel Bisulfate (Plavix) 75 mg PO DAILY [facility] Last Admin: 05/22/18 10:07 Dose: 75 mg Dextrose (Dextrose 50% Inj) 0 ml IV STAT PRN; Protocol PRN Reason: Hypoglycemia Protocol Last Admin: 06/21/18 16:15 Dose: 50 ml Dextrose (Glutose 15) 15 gm PO ONCE PRN; Protocol PRN Reason: Hypoglycemia Protocol Famotidine (Pepcid) 20 mg GT BID [facility] Last Admin: 06/29/18 10:15 Dose: 20 mg Glucagon (Glucagen Diagnostic Kit) 1 mg IM STAT PRN; Protocol PRN Reason: Hypoglycemia Protocol Sodium Chloride (Sodium Chloride 0.9%) 1,000 mls @ 100 mls/hr IV .Q10H [facility] Last Admin: 06/29/18 09:10 Dose: Not Given Ibuprofen (Motrin Oral Susp) 200 mg PO Q6H PRN PRN Reason: Fever >100.4 F Last Admin: 06/28/18 23:26 Dose: 200 mg Insulin Aspart (Novolog) 0 unit SC ACHS [facility]; Protocol Last Admin: 06/29/18 11:27 Dose: Not Given Insulin Glargine (Lantus) 40 unit SC HS [facility] Last Admin: 06/25/18 22:02 Dose: Not Given Insulin Human Isoph/Insulin Regular (Novolin 70/30 (70/30 Units/Ml) 10 Ml) 15 units SC BID [facility] Last Admin: 06/26/18 09:27 Dose: 15 units Metoprolol Tartrate (Lopressor) 75 mg PO BID [facility] Last Admin: 06/29/18 10:14 Dose: 75 mg Polyethylene Glycol (Miralax) 17 gm GT BID [facility] Last Admin: 06/29/18 10:16 Dose: 17 gm Potassium Chloride (Potassium Chloride Oral Soln) 20 meq PO ONCE ONE Stop: 06/29/18 12:46 Potassium Chloride (Potassium Chloride Oral Soln) 20 meq PO ONCE ONE Stop: 06/29/18 14:01 Rosuvastatin Calcium (Crestor) 5 mg PO HS [facility] Last Admin: 06/28/18 22:29 Dose: 5 mg Senna/Docusate Sodium (Senokot S 50 Mg-8.6 Mg) 1 tab PO BID [facility] Last Admin: 06/29/18 10:15 Dose: 1 tab Vitamin A (Vitamin A & D Oint Ud Foilpak) 1 ea TOP BID PRN PRN Reason: Dry skin Last Admin: 06/13/18 10:47 Dose: 1 ea - Labs Labs: 06/29/18 06:30 06/29/18 06:30 PT 16.8 SECONDS (9.7-12.2) H 05/28/18 07:15 INR 1.5 05/28/18 07:15 APTT 34 SECONDS (21-34) 05/28/18 07:15 Attending/Attestation - Attestation I have personally seen and examined this patient.: Yes I have fully participated in the care of the patient.: Yes I have reviewed all pertinent clinical information, including history, physical exam and plan: Yes Notes (Text): 06/29/18 12:42 Medical attending: Patient was seen and examined by me. The tube feeds were restarted and so far she is tolerating them very well. The K was low this morning so additional K is now ordered for today via MIKALA Sheikh
[2018-06-29 06:37] LABS: BASO % 0.7 % (0.0-2.0); EOS # 0.2 K/uL (0.0-0.7); EOS % 3.2 % (0.0-4.0); HEMOGLOBIN 9.7 g/dL (11.0-16.0); LYMPH # 1.3 K/uL (1.0-4.3); LYMPH % 23.8 % (20.0-40.0); MEAN CELL VOLUME 84.7 fL (81.0-99.0); MEAN PLATELET VOLUME 10.7 fL (7.2-11.7); MONO # 0.4 K/uL (0.0-0.8); MONO % 6.8 % (0.0-10.0); NEUT # 3.5 K/uL (1.8-7.0); NEUT % 65.5 % (50.0-75.0); RBC 3.47 Mil/uL (3.80-5.20); RED CELL DISTRIBUTION WIDTH 16.3 % (11.5-14.5); WHITE BLOOD COUNT 5.4 K/uL (4.8-10.8)
[2018-06-29 07:08] LABS: ALT/SGPT 34 U/L (9-52); AST/SGOT 29 U/L (14-36); BLOOD UREA NITROGEN 8 mg/dL (7-17); CALCIUM 8.2 mg/dl (8.6-10.4); GFR NON-AFRICAN AMERICAN > 60
[2018-06-29] MEDS: (Novolog) Insulin Aspart, Recombinant 100 u/ml 10 ml vial SC SCH ×4 (08:29→22:52)
[2018-06-29] MEDS: Sodium Chloride 0.9% 1,000 ML IV SCH ×2 (09:10→22:53)
[2018-06-29] MEDS: Docusate-Senna 50 mg-8.6 mg Tab PO SCH ×2 (10:15→18:46)
[2018-06-29] MEDS: POLYETHYLENE GLYCOL 3350 17 GM/Dose PACKET GT SCH ×2 (10:16→18:46)
[2018-06-29] MEDS ORDERED: Potassium Chloride 20 mEq/15 ml LIQ UD PO ONE ×2 (12:45→14:00)
[2018-06-30] MEDS: Albuterol-Ipratrop 3 mg / 0.5 (3 ml) UD INH SCH ×6 (00:05→19:13)
[2018-06-30] MEDS: Sodium Chloride 0.9% 1,000 ML IV SCH ×4 (04:37→22:16)
--- NOTE | 2018-06-30 07:14 | CP.PCM.PN ---
<Montez Miles - Last Filed: 06/30/18 13:24> Subjective - Date & Time of Evaluation Date of Evaluation: 06/30/18 Time of Evaluation: 07:14 - Subjective Subjective: PGY-1 Medicine Progress Note for Dr. Sheikh Patient seen and examined at bedside this AM. Patient had episode of vomiting overnight, tube feedings held per nursing. In no acute distress this morning, no new episodes of vomiting. Will restart feeds and continue to monitor. 12 pt ROS unattainable due to patient's clinical status. Objective - Vital Signs/Intake and Output Vital Signs (last 24 hours): Temp Pulse Resp BP Pulse Ox 98.1 F 73 18 152/70 H 100 06/29/18 15:54 06/29/18 15:54 06/29/18 15:54 06/29/18 21:51 06/29/18 15:54 Intake and Output: 06/30/18 06/30/18 06:59 18:59 Intake Total 2350 Output Total 2600 Balance -250 - Medications Medications: Current Medications Albuterol/Ipratropium (Duoneb 3 Mg/0.5 Mg (3 Ml) Ud) 3 ml INH RQ4 [facility] Last Admin: 06/30/18 03:41 Dose: 3 ml Amlodipine Besylate (Norvasc) 10 mg PO DAILY [facility] Last Admin: 06/29/18 10:14 Dose: 10 mg Aspirin (Aspirin Chewable) 81 mg PO DAILY [facility] Last Admin: 06/29/18 10:15 Dose: 81 mg Clopidogrel Bisulfate (Plavix) 75 mg PO DAILY [facility] Last Admin: 05/22/18 10:07 Dose: 75 mg Dextrose (Dextrose 50% Inj) 0 ml IV STAT PRN; Protocol PRN Reason: Hypoglycemia Protocol Last Admin: 06/21/18 16:15 Dose: 50 ml Dextrose (Glutose 15) 15 gm PO ONCE PRN; Protocol PRN Reason: Hypoglycemia Protocol Famotidine (Pepcid) 20 mg GT BID [facility] Last Admin: 06/29/18 18:46 Dose: 20 mg Glucagon (Glucagen Diagnostic Kit) 1 mg IM STAT PRN; Protocol PRN Reason: Hypoglycemia Protocol Sodium Chloride (Sodium Chloride 0.9%) 1,000 mls @ 100 mls/hr IV .Q10H [facility] Last Admin: 06/30/18 04:37 Dose: Not Given Ibuprofen (Motrin Oral Susp) 200 mg PO Q6H PRN PRN Reason: Fever >100.4 F Last Admin: 06/28/18 23:26 Dose: 200 mg Insulin Aspart (Novolog) 0 unit SC [facility]; Protocol Last Admin: 06/29/18 22:52 Dose: Not Given Insulin Glargine (Lantus) 40 unit SC [facility] Last Admin: 06/25/18 22:02 Dose: Not Given Insulin Human Isoph/Insulin Regular (Novolin 70/30 (70/30 Units/Ml) 10 Ml) 15 units SC BID [facility] Last Admin: 06/26/18 09:27 Dose: 15 units Metoprolol Tartrate (Lopressor) 75 mg PO BID [facility] Last Admin: 06/29/18 18:46 Dose: 75 mg Polyethylene Glycol (Miralax) 17 gm GT BID [facility] Last Admin: 06/29/18 18:46 Dose: 17 gm Rosuvastatin Calcium (Crestor) 5 mg PO [facility] Last Admin: 06/29/18 22:25 Dose: 5 mg Senna/Docusate Sodium (Senokot S 50 Mg-8.6 Mg) 1 tab PO BID [facility] Last Admin: 06/29/18 18:46 Dose: 1 tab Vitamin A (Vitamin A & D Oint Ud Foilpak) 1 ea TOP BID PRN PRN Reason: Dry skin Last Admin: 06/13/18 10:47 Dose: 1 ea - Labs Labs: 06/29/18 06:30 06/29/18 06:30 PT 16.8 SECONDS (9.7-12.2) H 05/28/18 07:15 INR 1.5 05/28/18 07:15 APTT 34 SECONDS (21-34) 05/28/18 07:15 - Constitutional Appears: Non-toxic, No Acute Distress, Chronically Ill - Head Exam Head Exam: ATRAUMATIC, NORMAL INSPECTION, NORMOCEPHALIC - Eye Exam Eye Exam: EOMI, Normal appearance, PERRL Pupil Exam: NORMAL ACCOMODATION - ENT Exam ENT Exam: Mucous Membranes Moist, Normal Exam Additional comments: trach collar in place - Respiratory Exam Respiratory Exam: Clear to Ausculation Bilateral, NORMAL BREATHING PATTERN. absent: Accessory Muscle Use, Rales, Wheezes, Respiratory Distress, Stridor - Cardiovascular Exam Cardiovascular Exam: REGULAR RHYTHM, +S1, +S2 - GI/Abdominal Exam GI & Abdominal Exam: Soft, Normal Bowel Sounds. absent: Distended, Firm, Guarding, Rigid, Tenderness Additional comments: PEG tube intact with no surrounding erythema - Extremities Exam Extremities Exam: Normal Capillary Refill. absent: Calf Tenderness, Pedal Edema Additional comments: contracted b/l LE - Neurological Exam Neurological Exam: Alert, Awake Additional comments: nods or shakes head appropriately to questions asked. Can verbalize 1-2 syllable words, tires easily - Skin Skin Exam: Dry, Intact, Normal Color, Warm Assessment and Plan - Assessment and Plan (Free Text) Assessment: 52 yo F with PMHx of DM type II visiting from the [place] reported to be found unresponsive by on 05/01. Patient intubated on field, brought to ED where CODE STROKE was called. Admitted to ICU for evaluation/monitoring of anoxic brain injury. Patient noted on exam to have ring monge suggestive of attempted suicidal attempt by hanging. [employer] made aware of case and confirm high likelihood of suicide attempt. Patient s/p tracheostomy and PED tube feeding. Patient weaned off ventilator to trach collar with humidified oxygen. Downgraded to telemetry for further monitoring. Will need extensive PT. Per ENT, vocal cords functional, consider weaning off O2. Attempted no supplemental O2 06/18 for approximately 5 minutes. Patient remained O2 saturating > 96% the entire time; however, she subsequently developed mucus plug that needed suctioning. Remains on trach collar at this time with further evaluation. Working aggressively with PT/OT/speech therapy, making significant progress and beginning to verbalize small syllable words. Plan: Anoxic Brain Injury- improving clinically - Aspiration precautions - Seizure precautions - Neurology on case, Dr. Duff/Guilherme - Turn and reposition q2h -PEG tube reinserted successfully -tube feeds held yesterday due to vomiting episode -no new reported episodes of vomiting, will restart feeds and continue to monitor -fenestrated trach collar -continue to wean off O2 -patient making progress, verbalizing 1-2 syllable words before fatigued -Aggressive PT/OT/ST -swallow evaluation recs appreciated -honey thick liquid pleasure feeds Acute Renal Injury with oliguria- improving - Likely due to dehydration - No HD needed - Nephrology recs (Dr. 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 -Na level wnl, continue to monitor -correct as needed Hypertension- chronic, stable - No pressors (was previously hypotensive) - Norvasc 10 mg PO daily Respiratory Failure resolved - Due to Asphyxiation - Laryngoscopy (06/18): vocal cords functional - s/p tracheotomy - Consider removal of trach collar - Mucomyst Q4H d/c'd (06/21) - Duonebs Q4H - Suction prn - Humidified O2, continue to wean as tolerated Fevers resolved - Afebrile since 06/04, currently off Abx - Ice packs, cooling blanket - Sputum cultures (05/25): yeast - s/p meropenum 1g Q8H & flagyl 500mg Q8H (total 13 days of treatment) - Motrin 200 mg Q6H PRN NSTEMI resolved - Elevated troponin- has normalized - ASA 81 mg PO daily (restarted 05/25) - Plavix 75mg PO daily (held - given drop in Hb) - Crestor 5 mg PO QHS - Cardiology consulted (Dr Gay) Leukocytosis resolved - Repeat CXR (05/21): slightly low lung volumes with mild crowded bronchovascular markings and minor bibasilar atelectasis - BCx (05/02): no growth - Repeat BCx (05/17): no growth - UA: leuk est 3+, +WBC, +RBC, nitrate - - UCx 05/06/18: no growth -repeat UCx (05/13, 05/17): yeast species - Tracheal Aspirate Cx 05/08/18: yeast - Alvarado changed 05/17 - Doppler b/l UE and LE: negative for DVTs Hyperkalemia resolved - Continue to monitor, correct as needed Constipation, resolved - reported BM 06/28 - Senokot BID - Dulcolax 10 mg [place] TID PRN - Lactulose 20 mg PO daily PRN - PEG 17gm GT bid - Flat Plate Abd (06/26): normal bowel gas pattern PPx, Diet, Disposition - DVT ppx: Heparin 5,000 Units SC Q8H - GI ppx: Pepcid 20mg GT bid - Diet: Tube feed, Vital 1.2, honey thick liquids (pleasure feeds only, per swallow eval) - Vitamin A&D - Code status: full code <Yann Sheikh H - Last Filed: 06/30/18 13:50> Objective - Vital Signs/Intake and Output Vital Signs (last 24 hours): Temp Pulse Resp BP Pulse Ox 97.9 F 74 20 180/98 H 100 06/30/18 08:27 06/30/18 08:27 06/30/18 08:27 06/30/18 10:57 06/30/18 08:27 Intake and Output: 06/30/18 06/30/18 06:59 18:59 Intake Total 2350 Output Total 2600 Balance -250 - Medications Medications: Current Medications Albuterol/Ipratropium (Duoneb 3 Mg/0.5 Mg (3 Ml) Ud) 3 ml INH RQ4 [facility] Last Admin: 06/30/18 11:50 Dose: 3 ml Amlodipine Besylate (Norvasc) 10 mg PO DAILY [facility] Last Admin: 06/30/18 10:57 Dose: 10 mg Aspirin (Aspirin Chewable) 81 mg PO DAILY [facility] Last Admin: 06/30/18 10:57 Dose: 81 mg Clopidogrel Bisulfate (Plavix) 75 mg PO DAILY [facility] Last Admin: 05/22/18 10:07 Dose: 75 mg Dextrose (Dextrose 50% Inj) 0 ml IV STAT PRN; Protocol PRN Reason: Hypoglycemia Protocol Last Admin: 06/21/18 16:15 Dose: 50 ml Dextrose (Glutose 15) 15 gm PO ONCE PRN; Protocol PRN Reason: Hypoglycemia Protocol Famotidine (Pepcid) 20 mg GT BID [facility] Last Admin: 06/30/18 10:56 Dose: 20 mg Glucagon (Glucagen Diagnostic Kit) 1 mg IM STAT PRN; Protocol PRN Reason: Hypoglycemia Protocol Sodium Chloride (Sodium Chloride 0.9%) 1,000 mls @ 100 mls/hr IV .Q10H [facility] Last Admin: 06/30/18 11:40 Dose: 100 mls/hr Ibuprofen (Motrin Oral Susp) 200 mg PO Q6H PRN PRN Reason: Fever >100.4 F Last Admin: 06/28/18 23:26 Dose: 200 mg Insulin Aspart (Novolog) 0 unit SC [facility]; Protocol Last Admin: 06/30/18 12:17 Dose: 4 units Insulin Glargine (Lantus) 40 unit SC [facility] Last Admin: 06/25/18 22:02 Dose: Not Given Insulin Human Isoph/Insulin Regular (Novolin 70/30 (70/30 Units/Ml) 10 Ml) 15 units SC BID [facility] Last Admin: 06/26/18 09:27 Dose: 15 units Metoprolol Tartrate (Lopressor) 75 mg PO BID [facility] Last Admin: 06/30/18 10:57 Dose: 75 mg Polyethylene Glycol (Miralax) 17 gm GT BID [facility] Last Admin: 06/30/18 10:57 Dose: 17 gm Rosuvastatin Calcium (Crestor) 5 mg PO [facility] Last Admin: 06/29/18 22:25 Dose: 5 mg Senna/Docusate Sodium (Senokot S 50 Mg-8.6 Mg) 1 tab PO BID [facility] Last Admin: 06/30/18 10:57 Dose: 1 tab Vitamin A (Vitamin A & D Oint Ud Foilpak) 1 ea TOP BID PRN PRN Reason: Dry skin Last Admin: 06/13/18 10:47 Dose: 1 ea - Labs Labs: 06/30/18 11:07 06/30/18 11:07 PT 16.8 SECONDS (9.7-12.2) H 05/28/18 07:15 INR 1.5 05/28/18 07:15 APTT 34 SECONDS (21-34) 05/28/18 07:15 Attending/Attestation - Attestation I have personally seen and examined this patient.: Yes I have fully participated in the care of the patient.: Yes I have reviewed all pertinent clinical information, including history, physical exam and plan: Yes Notes (Text): Medical attending: Patient was seen and examined by me. Agree with the above note by the resident The patient was not in any acute distress when I came and saw patient. The patient's family was faithfully at bedside Last night there was some concern over vommitting and the tube feedings were held for a short period. When we came in this morning the nurses reported no new events after being placed back on at 50 cc / hr Yann Sheikh
[2018-06-30] MEDS: (Novolog) Insulin Aspart, Recombinant 100 u/ml 10 ml vial SC SCH ×4 (08:26→21:49)
[2018-06-30] MEDS: POLYETHYLENE GLYCOL 3350 17 GM/Dose PACKET GT SCH ×2 (10:57→18:17)
[2018-06-30] MEDS: Docusate-Senna 50 mg-8.6 mg Tab PO SCH ×2 (10:57→18:16)
[2018-06-30 11:31] LABS: BASO % 0.7 % (0.0-2.0); EOS # 0.2 K/uL (0.0-0.7); EOS % 2.8 % (0.0-4.0); HEMOGLOBIN 10.6 g/dL (11.0-16.0); LYMPH # 1.6 K/uL (1.0-4.3); LYMPH % 25.4 % (20.0-40.0); MEAN CELL VOLUME 84.8 fL (81.0-99.0); MEAN CORPUSCULAR HEMOGLOBIN 28.4 pg (27.0-31.0); MEAN CORPUSCULAR HGB CONC 33.5 g/dL (33.0-37.0); MEAN PLATELET VOLUME 10.7 fL (7.2-11.7); MONO # 0.4 K/uL (0.0-0.8); NEUT # 4.2 K/uL (1.8-7.0); NEUT % 65.1 % (50.0-75.0); RBC 3.74 Mil/uL (3.80-5.20); RED CELL DISTRIBUTION WIDTH 16.4 % (11.5-14.5); WHITE BLOOD COUNT 6.4 K/uL (4.8-10.8)
[2018-06-30 11:56] LABS: ALB/GLOB RATIO 1.1 (1.0-2.1); ALBUMIN 3.6 g/dL (3.5-5.0); ALT/SGPT 30 U/L (9-52); AST/SGOT 27 U/L (14-36); BLOOD UREA NITROGEN 4 mg/dL (7-17); CALCIUM 8.4 mg/dl (8.6-10.4); GFR NON-AFRICAN AMERICAN > 60
[2018-06-30] MEDS ORDERED: Potassium Chloride 20 mEq/15 ml LIQ UD PO ONE (15:17)
[2018-07-01] MEDS: Albuterol-Ipratrop 3 mg / 0.5 (3 ml) UD INH SCH ×6 (00:05→20:09)
[2018-07-01 07:07] LABS: BASO % 0.6 % (0.0-2.0); EOS # 0.2 K/uL (0.0-0.7); EOS % 1.8 % (0.0-4.0); HEMOGLOBIN 8.9 g/dL (11.0-16.0); LYMPH # 1.9 K/uL (1.0-4.3); LYMPH % 23.6 % (20.0-40.0); MEAN CELL VOLUME 84.8 fL (81.0-99.0); MEAN CORPUSCULAR HEMOGLOBIN 28.5 pg (27.0-31.0); MEAN CORPUSCULAR HGB CONC 33.6 g/dL (33.0-37.0); MEAN PLATELET VOLUME 10.4 fL (7.2-11.7); MONO # 0.6 K/uL (0.0-0.8); MONO % 7.6 % (0.0-10.0); NEUT # 5.5 K/uL (1.8-7.0); NEUT % 66.4 % (50.0-75.0); RBC 3.12 Mil/uL (3.80-5.20); RED CELL DISTRIBUTION WIDTH 16.7 % (11.5-14.5); WHITE BLOOD COUNT 8.3 K/uL (4.8-10.8)
--- NOTE | 2018-07-01 07:39 | CP.PCM.PN ---
Subjective - Date & Time of Evaluation Date of Evaluation: 07/01/18 Time of Evaluation: 07:39 - Subjective Subjective: PGY-1 Medicine Progress Note for Dr. Sheikh Patient seen and examined at bedside this AM. Per nursing, patient pulled PEG tube out for a second time early this AM, colindres was placed and tube feedings were stopped due to patient's abdominal pain. Will reach out to Surgery about reinserting tube, consider refeeding at slower rate. To reach out to Pulmonology re: fenestrated trach collar, will f/u swallow progression. No other acute somat ic complaints at this time. Family remains faithfully at bedside, very supportive. Objective - Vital Signs/Intake and Output Vital Signs (last 24 hours): Temp Pulse Resp BP Pulse Ox 97.8 F 78 20 132/72 100 07/01/18 04:33 07/01/18 04:33 07/01/18 04:33 07/01/18 04:33 07/01/18 04:33 Intake and Output: 07/01/18 07/01/18 06:59 18:59 Intake Total 1450 1200 Output Total 2000 500 Balance -550 700 - Medications Medications: Current Medications Albuterol/Ipratropium (Duoneb 3 Mg/0.5 Mg (3 Ml) Ud) 3 ml INH RQ4 [facility] Last Admin: 07/01/18 04:20 Dose: 3 ml Amlodipine Besylate (Norvasc) 10 mg PO DAILY [facility] Last Admin: 06/30/18 10:57 Dose: 10 mg Aspirin (Aspirin Chewable) 81 mg PO DAILY [facility] Last Admin: 06/30/18 10:57 Dose: 81 mg Clopidogrel Bisulfate (Plavix) 75 mg PO DAILY [facility] Last Admin: 05/22/18 10:07 Dose: 75 mg Dextrose (Dextrose 50% Inj) 0 ml IV STAT PRN; Protocol PRN Reason: Hypoglycemia Protocol Last Admin: 06/21/18 16:15 Dose: 50 ml Dextrose (Glutose 15) 15 gm PO ONCE PRN; Protocol PRN Reason: Hypoglycemia Protocol Famotidine (Pepcid) 20 mg GT BID [facility] Last Admin: 06/30/18 18:16 Dose: 20 mg Glucagon (Glucagen Diagnostic Kit) 1 mg IM STAT PRN; Protocol PRN Reason: Hypoglycemia Protocol Sodium Chloride (Sodium Chloride 0.9%) 1,000 mls @ 100 mls/hr IV .Q10H [facility] Last Admin: 06/30/18 22:16 Dose: 100 mls/hr Ibuprofen (Motrin Oral Susp) 200 mg PO Q6H PRN PRN Reason: Fever >100.4 F Last Admin: 06/28/18 23:26 Dose: 200 mg Insulin Aspart (Novolog) 0 unit SC [facility]; Protocol Last Admin: 06/30/18 21:49 Dose: Not Given Insulin Glargine (Lantus) 40 unit SC [facility] Last Admin: 06/25/18 22:02 Dose: Not Given Insulin Human Isoph/Insulin Regular (Novolin 70/30 (70/30 Units/Ml) 10 Ml) 15 units SC BID [facility] Last Admin: 06/26/18 09:27 Dose: 15 units Metoprolol Tartrate (Lopressor) 75 mg PO BID [facility] Last Admin: 06/30/18 18:17 Dose: 75 mg Polyethylene Glycol (Miralax) 17 gm GT BID [facility] Last Admin: 06/30/18 18:17 Dose: 17 gm Rosuvastatin Calcium (Crestor) 5 mg PO [facility] Last Admin: 06/30/18 21:47 Dose: 5 mg Senna/Docusate Sodium (Senokot S 50 Mg-8.6 Mg) 1 tab PO BID [facility] Last Admin: 06/30/18 18:16 Dose: 1 tab Vitamin A (Vitamin A & D Oint Ud Foilpak) 1 ea TOP BID PRN PRN Reason: Dry skin Last Admin: 06/13/18 10:47 Dose: 1 ea - Labs Labs: 07/01/18 06:58 06/30/18 11:07 PT 16.8 SECONDS (9.7-12.2) H 05/28/18 07:15 INR 1.5 05/28/18 07:15 APTT 34 SECONDS (21-34) 05/28/18 07:15 - Constitutional Appears: Non-toxic, No Acute Distress, Chronically Ill - Head Exam Head Exam: ATRAUMATIC, NORMAL INSPECTION, NORMOCEPHALIC - Eye Exam Eye Exam: EOMI, Normal appearance Pupil Exam: NORMAL ACCOMODATION - ENT Exam ENT Exam: Mucous Membranes Moist, Normal Exam - Neck Exam Additional comments: trach collar in place - Respiratory Exam Respiratory Exam: Clear to Ausculation Bilateral, NORMAL BREATHING PATTERN. absent: Accessory Muscle Use, Respiratory Distress - Cardiovascular Exam Cardiovascular Exam: REGULAR RHYTHM, +S1, +S2 - GI/Abdominal Exam GI & Abdominal Exam: Soft, Normal Bowel Sounds. absent: Distended, Firm, Guarding, Rigid, Tenderness Additional comments: cath inserted in place of displaced PEG tube, abdominal binder in place - Extremities Exam Extremities Exam: Normal Capillary Refill. absent: Calf Tenderness, Joint Swelling, Pedal Edema Additional comments: contracted b/l LE - Neurological Exam Neurological Exam: Alert, Awake - Skin Skin Exam: Dry, Intact, Normal Color, Warm Assessment and Plan - Assessment and Plan (Free Text) Assessment: 52 yo F with PMHx of DM type II visiting from the [place] reported to be found unresponsive by on 05/01. Patient intubated on field, brought to ED where CODE STROKE was called. Admitted to ICU for evaluation/monitoring of anoxic brain injury. Patient noted on exam to have ring monge suggestive of attempted suicidal attempt by hanging. [employer] made aware of case and confirm high likelihood of suicide attempt. Patient s/p tracheostomy and PED tube feeding. Patient weaned off ventilator to trach collar with humidified oxygen. Downgraded to telemetry for further monitoring. Will need extensive PT. Per ENT, vocal cords functional, consider weaning off O2. Atte mpted no supplemental O2 06/18 for approximately 5 minutes. Patient remained O2 saturating > 96% the entire time; however, she subsequently developed mucus plug that needed suctioning. Remains on trach collar at this time with further evaluation. Working aggressively with PT/OT/speech therapy, making significant progress and beginning to verbalize small syllable words. Plan: Anoxic Brain Injury- improving clinically - Aspiration precautions - Seizure precautions - Neurology on case, Dr. Duff/Guilherme - Turn and reposition q2h -pt pulled PEG out for second time early this AM -cath inserted this am by nurse -Abd XR (07/01): current tube appears to terminate within gastric lumen -fenestrated trach collar -continue to wean off O2 -patient making progress, verbalizing 1-2 syllable words before fatigued -Aggressive PT/OT/ST -swallow evaluation recs appreciated -honey thick liquid pleasure feeds Acute Renal Injury with oliguria- improving - Likely due to dehydration - No HD needed - Nephrology recs (Dr. 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 -Na level wnl, continue to monitor -correct as needed Hypertension- chronic, stable - No pressors (was previously hypotensive) - Norvasc 10 mg PO daily Respiratory Failure resolved - Due to Asphyxiation - Laryngoscopy (06/18): vocal cords functional - s/p tracheotomy - Consider removal of trach collar - Mucomyst Q4H d/c'd (06/21) - Duonebs Q4H - Suction prn - Humidified O2, continue to wean as tolerated Fevers resolved - Afebrile since 06/04, currently off Abx - Ice packs, cooling blanket - Sputum cultures (05/25): yeast - s/p meropenum 1g Q8H & flagyl 500mg Q8H (total 13 days of treatment) - Motrin 200 mg Q6H PRN NSTEMI resolved - Elevated troponin- has normalized - ASA 81 mg PO daily (restarted 05/25) - Plavix 75mg PO daily (held - given drop in Hb) - Crestor 5 mg PO QHS - Cardiology consulted (Dr Gay) Leukocytosis resolved - Repeat CXR (05/21): slightly low lung volumes with mild crowded bronchovascular markings and minor bibasilar atelectasis - BCx (05/02): no growth - Repeat BCx (05/17): no growth - UA: leuk est 3+, +WBC, +RBC, nitrate - - UCx 05/06/18: no growth -repeat UCx (05/13, 05/17): yeast species - Tracheal Aspirate Cx 05/08/18: yeast - Colindres changed 05/17 - Doppler b/l UE and LE: negative for DVTs Hyperkalemia resolved - Continue to monitor, correct as needed Constipation, resolved - reported BM 06/28 - Senokot BID - Dulcolax 10 mg [place] TID PRN - Lactulose 20 mg PO daily PRN - PEG 17gm GT bid - Flat Plate Abd (06/26): normal bowel gas pattern PPx, Diet, Disposition - DVT ppx: Heparin 5,000 Units SC Q8H - GI ppx: Pepcid 20mg GT bid - Diet: Tube feed, Vital 1.2, honey thick liquids (pleasure feeds only, per swallow eval) - Vitamin A&D - Code status: full code Case discussed with Dr. Kori Miles DO, PGY-1
[2018-07-01 07:43] LABS: ALB/GLOB RATIO 1.1 (1.0-2.1); ALBUMIN 2.9 g/dL (3.5-5.0); ALT/SGPT 26 U/L (9-52); AST/SGOT 24 U/L (14-36); BLOOD UREA NITROGEN 5 mg/dL (7-17); CALCIUM 7.4 mg/dl (8.6-10.4); GFR NON-AFRICAN AMERICAN > 60
[2018-07-01] MEDS: Sodium Chloride 0.9% 1,000 ML IV SCH ×2 (08:31→10:40)
[2018-07-01] MEDS: (Novolog) Insulin Aspart, Recombinant 100 u/ml 10 ml vial SC SCH ×4 (08:33→22:01)
[2018-07-01] MEDS ORDERED: Potassium & Sodium Phosphate PEG ONE (09:47)
[2018-07-01] MEDS ORDERED: Magnesium Sulfate 1 gm in D5W 1 GM/100 ML BAG IVPB ONE (09:48)
[2018-07-01] MEDS ORDERED: Potassium Chloride 20 mEq/15 ml LIQ UD PO ONE (10:05)
[2018-07-01] MEDS: POLYETHYLENE GLYCOL 3350 17 GM/Dose PACKET GT SCH ×2 (10:40→17:52)
[2018-07-01] MEDS: Docusate-Senna 50 mg-8.6 mg Tab PO SCH ×2 (10:40→17:52)
[2018-07-01] MEDS ORDERED: Iohexol 240 (50 ml) PO ONE (11:07)
[2018-07-01] MEDS ORDERED: Iohexol 240 200 ML ONE (12:03)
--- NOTE | 2018-07-01 12:55 | RAD ---
Date of service: 07/01/2018 HISTORY: G-tube exchanges COMPARISON: 06/26/2018 FINDINGS: BOWEL: The bowel gas pattern is unremarkable. There is contrast material administered through a gastrostomy tube seen within the gastric lumen. There is no free intraperitoneal contrast material. A curvilinear radiopaque object over the mid left abdomen is noted, of uncertain significance. This was not seen on the prior examination of 06/26/2018. It is not clear whether this is related to the gastrostomy tube. BONES: Normal. OTHER FINDINGS: None. IMPRESSION: The current gastrostomy tube appears to terminate within the gastric lumen. There is a curvilinear radiopaque structure projecting over the distal aspect of the gastrostomy tube which may be related to the gastrostomy tube although this is not clearly demonstrated. No other significant abnormality
[2018-07-01 14:02] LABS: BLOOD UREA NITROGEN 5 mg/dL (7-17); CALCIUM 8.9 mg/dl (8.6-10.4); GFR NON-AFRICAN AMERICAN > 60
[2018-07-01] MEDS: Potassium Chloride 20 mEq 100 ML IV SCH ×2 (16:10→18:15)
[2018-07-02] MEDS: Albuterol-Ipratrop 3 mg / 0.5 (3 ml) UD INH SCH ×6 (00:53→19:56)
[2018-07-02 07:22] LABS: BASO # 0.1 K/uL (0.0-0.2); BASO % 1.1 % (0.0-2.0); EOS # 0.3 K/uL (0.0-0.7); HEMOGLOBIN 9.9 g/dL (11.0-16.0); LYMPH # 2.2 K/uL (1.0-4.3); LYMPH % 33.3 % (20.0-40.0); MEAN CELL VOLUME 85.7 fL (81.0-99.0); MEAN CORPUSCULAR HEMOGLOBIN 28.7 pg (27.0-31.0); MEAN CORPUSCULAR HGB CONC 33.5 g/dL (33.0-37.0); MONO # 0.5 K/uL (0.0-0.8); MONO % 6.9 % (0.0-10.0); NEUT # 3.6 K/uL (1.8-7.0); NEUT % 54.7 % (50.0-75.0); RBC 3.45 Mil/uL (3.80-5.20); RED CELL DISTRIBUTION WIDTH 17.1 % (11.5-14.5); WHITE BLOOD COUNT 6.5 K/uL (4.8-10.8)
[2018-07-02 07:36] LABS: ALB/GLOB RATIO 1.1 (1.0-2.1); ALBUMIN 3.3 g/dL (3.5-5.0); ALT/SGPT 29 U/L (9-52); AST/SGOT 31 U/L (14-36); BLOOD UREA NITROGEN 3 mg/dL (7-17); CALCIUM 8.6 mg/dl (8.6-10.4); GFR NON-AFRICAN AMERICAN > 60
[2018-07-02] MEDS: (Novolog) Insulin Aspart, Recombinant 100 u/ml 10 ml vial SC SCH ×4 (07:57→22:04)
--- NOTE | 2018-07-02 08:49 | CP.PCM.PN ---
<Montez Miles - Last Filed: 07/02/18 15:48> Subjective - Date & Time of Evaluation Date of Evaluation: 07/02/18 Time of Evaluation: 08:48 - Subjective Subjective: PGY-1 Medicine Progress Note for Dr. Sheikh Patient seen and examined at bedside this AM. No acute overnight events reported. Per surgical team, colindres cath currently in proper placement and may be used for tube feeds. Will restart tube feeding at 20cc/hr so as to avoid any further abdominal discomfort/vomiting. Fenestrated trach tube has been brought by bedside, to be switched out by Dr. Brennan on Thursday. 12 pt ROS unattainable due to patient's clinical status. Friends and family all faithfully by bedside, extremely supportive. Objective - Vital Signs/Intake and Output Vital Signs (last 24 hours): Temp Pulse Resp BP Pulse Ox 98.7 F 81 20 145/81 95 07/02/18 07:00 07/02/18 07:00 07/02/18 07:00 07/02/18 07:00 07/02/18 07:00 Intake and Output: 07/02/18 07/02/18 06:59 18:59 Intake Total 1650 Output Total 1150 Balance 500 - Medications Medications: Current Medications Albuterol/Ipratropium (Duoneb 3 Mg/0.5 Mg (3 Ml) Ud) 3 ml INH RQ4 [facility] Last Admin: 07/02/18 04:37 Dose: 3 ml Amlodipine Besylate (Norvasc) 10 mg PO DAILY [facility] Last Admin: 07/01/18 13:57 Dose: Not Given Aspirin (Aspirin Chewable) 81 mg PO DAILY [facility] Last Admin: 07/01/18 13:56 Dose: Not Given Clopidogrel Bisulfate (Plavix) 75 mg PO DAILY [facility] Last Admin: 05/22/18 10:07 Dose: 75 mg Dextrose (Dextrose 50% Inj) 0 ml IV STAT PRN; Protocol PRN Reason: Hypoglycemia Protocol Last Admin: 06/21/18 16:15 Dose: 50 ml Dextrose (Glutose 15) 15 gm PO ONCE PRN; Protocol PRN Reason: Hypoglycemia Protocol Famotidine (Pepcid) 20 mg GT BID [facility] Last Admin: 07/01/18 17:52 Dose: Not Given Glucagon (Glucagen Diagnostic Kit) 1 mg IM STAT PRN; Protocol PRN Reason: Hypoglycemia Protocol Sodium Chloride (Sodium Chloride 0.9%) 1,000 mls @ 100 mls/hr IV .Q10H [facility] Last Admin: 07/02/18 00:00 Dose: 100 mls/hr Ibuprofen (Motrin Oral Susp) 200 mg PO Q6H PRN PRN Reason: Fever >100.4 F Last Admin: 06/28/18 23:26 Dose: 200 mg Insulin Aspart (Novolog) 0 unit SC ACHS [facility]; Protocol Last Admin: 07/02/18 07:57 Dose: Not Given Insulin Glargine (Lantus) 40 unit SC [facility] Last Admin: 06/25/18 22:02 Dose: Not Given Insulin Human Isoph/Insulin Regular (Novolin 70/30 (70/30 Units/Ml) 10 Ml) 15 units SC BID [facility] Last Admin: 06/26/18 09:27 Dose: 15 units Metoprolol Tartrate (Lopressor) 75 mg PO BID [facility] Last Admin: 07/01/18 18:00 Dose: Not Given Polyethylene Glycol (Miralax) 17 gm GT BID [facility] Last Admin: 07/01/18 17:52 Dose: Not Given Rosuvastatin Calcium (Crestor) 5 mg PO HS [facility] Last Admin: 07/01/18 22:01 Dose: Not Given Senna/Docusate Sodium (Senokot S 50 Mg-8.6 Mg) 1 tab PO BID [facility] Last Admin: 07/01/18 17:52 Dose: Not Given Vitamin A (Vitamin A & D Oint Ud Foilpak) 1 ea TOP BID PRN PRN Reason: Dry skin Last Admin: 06/13/18 10:47 Dose: 1 ea - Labs Labs: 07/02/18 07:10 07/02/18 07:10 PT 16.8 SECONDS (9.7-12.2) H 05/28/18 07:15 INR 1.5 05/28/18 07:15 APTT 34 SECONDS (21-34) 05/28/18 07:15 - Constitutional Appears: Non-toxic, No Acute Distress, Chronically Ill - Head Exam Head Exam: ATRAUMATIC, NORMAL INSPECTION, NORMOCEPHALIC - Eye Exam Eye Exam: EOMI, Normal appearance Pupil Exam: NORMAL ACCOMODATION - ENT Exam ENT Exam: Mucous Membranes Moist, Normal Exam - Neck Exam Neck Exam: Full ROM, Normal Inspection Additional comments: trach collar in place with scant secretions suctioned - Respiratory Exam Respiratory Exam: Clear to Ausculation Bilateral, NORMAL BREATHING PATTERN. absent: Accessory Muscle Use, Respiratory Distress - Cardiovascular Exam Cardiovascular Exam: REGULAR RHYTHM, +S1, +S2 - GI/Abdominal Exam GI & Abdominal Exam: Soft. absent: Distended, Firm, Guarding, Rigid, Tenderness, Normal Bowel Sounds Additional comments: cath in proper placement, patent and feeding adequately. Abdominal binder in place. - Extremities Exam Extremities Exam: Normal Capillary Refill, Normal Inspection. absent: Calf Tenderness, Pedal Edema Additional comments: contracted b/l LE. scds in place. - Back Exam Back Exam: NORMAL INSPECTION - Neurological Exam Neurological Exam: Alert, Awake - Skin Skin Exam: Dry, Intact, Normal Color, Warm Assessment and Plan - Assessment and Plan (Free Text) Assessment: 52 yo F with PMHx of DM type II visiting from the [facility] reported to be found unresponsive by on 05/01. Patient intubated on field, brought to ED where CODE STROKE was called. Admitted to ICU for evaluation/monitoring of anoxic brain injury. Patient noted on exam to have ring monge suggestive of attempted suicidal attempt by hanging. [employer] made aware of case and confirm high likelihood of suicide attempt. Patient s/p tracheostomy and PED tube feeding. Patient weaned off ventilator to trach collar with humidified oxygen. Downgraded to telemetry for further monitoring. Will need extensive PT. Per ENT, vocal cords functional, consider weaning off O2. Attempted no supplemental O2 06/18 for approximately 5 minutes. Patient remained O2 saturating > 96% the entire time; however, she subsequently developed mucus plug that needed suctioning. Remains on trach collar at this time with further evaluation. Working aggressively with PT/OT/speech therapy, making significant progress and beginning to verbalize small syllable words. Plan: Anoxic Brain Injury- improving clinically - Aspiration precautions - Seizure precautions - Neurology on case, Dr. Duff/Guilherme - Turn and reposition q2h -Colindres cath in proper placement for tube feeds, per Surgery -feeds resumed at 20cc/hr -f/u fenestrated trach collar -at bedside, to be switched out by Dr. Brennan on Thursday -continue to wean off O2 -patient making progress, verbalizing 1-2 syllable words before fatigued -Aggressive PT/OT/ST -swallow evaluation recs appreciated -honey thick liquid pleasure feeds Acute Renal Injury with oliguria- improving - Likely due to dehydration - No HD needed - Nephrology recs (Dr. 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 -Na level wnl, continue to monitor -correct as needed Hypertension- chronic, stable - No pressors (was previously hypotensive) - Norvasc 10 mg PO daily Respiratory Failure resolved - Due to Asphyxiation - Laryngoscopy (06/18): vocal cords functional - s/p tracheotomy - Consider removal of trach collar - Mucomyst Q4H d/c'd (06/21) - Duonebs Q4H - Suction prn - Humidified O2, continue to wean as tolerated Fevers resolved - Afebrile since 06/04, currently off Abx - Ice packs, cooling blanket - Sputum cultures (05/25): yeast - s/p meropenum 1g Q8H & flagyl 500mg Q8H (total 13 days of treatment) - Motrin 200 mg Q6H PRN NSTEMI resolved - Elevated troponin- has normalized - ASA 81 mg PO daily (restarted 05/25) - Plavix 75mg PO daily (held - given drop in Hb) - Crestor 5 mg PO QHS - Cardiology consulted (Dr Gay) Leukocytosis resolved - Repeat CXR (05/21): slightly low lung volumes with mild crowded bronchovascular markings and minor bibasilar atelectasis - BCx (05/02): no growth - Repeat BCx (05/17): no growth - UA: leuk est 3+, +WBC, +RBC, nitrate - - UCx 05/06/18: no growth -repeat UCx (05/13, 05/17): yeast species - Tracheal Aspirate Cx 05/08/18: yeast - Colindres changed 05/17 - Doppler b/l UE and LE: negative for DVTs Hyperkalemia resolved - Continue to monitor, correct as needed Constipation, resolved - reported BM 06/28 - Senokot BID - Dulcolax 10 mg [place] TID PRN - Lactulose 20 mg PO daily PRN - PEG 17gm GT bid - Flat Plate Abd (06/26): normal bowel gas pattern PPx, Diet, Disposition - DVT ppx: Heparin 5,000 Units SC Q8H - GI ppx: Pepcid 20mg GT bid - Diet: Tube feed, Vital 1.2, honey thick liquids (pleasure feeds only, per sw allow eval) - Vitamin A&D - Code status: full code Case discussed with Dr. Kori Miles DO, PGY-1 <Yann Sheikh H - Last Filed: 07/02/18 16:24> Objective - Vital Signs/Intake and Output Vital Signs (last 24 hours): Temp Pulse Resp BP Pulse Ox 99.1 F 88 20 184/86 H 100 07/02/18 15:30 07/02/18 15:30 07/02/18 15:30 07/02/18 15:30 07/02/18 15:30 Intake and Output: 07/02/18 07/02/18 06:59 18:59 Intake Total 1650 860 Output Total 1150 600 Balance 500 260 - Medications Medications: Current Medications Albuterol/Ipratropium (Duoneb 3 Mg/0.5 Mg (3 Ml) Ud) 3 ml INH RQ4 [facility] Last Admin: 07/02/18 11:30 Dose: 3 ml Amlodipine Besylate (Norvasc) 10 mg PO DAILY [facility] Last Admin: 07/02/18 10:57 Dose: Not Given Aspirin (Aspirin Chewable) 81 mg PO DAILY [facility] Last Admin: 07/02/18 10:57 Dose: Not Given Clopidogrel Bisulfate (Plavix) 75 mg PO DAILY [facility] Last Admin: 05/22/18 10:07 Dose: 75 mg Dextrose (Dextrose 50% Inj) 0 ml IV STAT PRN; Protocol PRN Reason: Hypoglycemia Protocol Last Admin: 06/21/18 16:15 Dose: 50 ml Dextrose (Glutose 15) 15 gm PO ONCE PRN; Protocol PRN Reason: Hypoglycemia Protocol Famotidine (Pepcid) 20 mg GT BID [facility] Last Admin: 07/02/18 10:57 Dose: Not Given Glucagon (Glucagen Diagnostic Kit) 1 mg IM STAT PRN; Protocol PRN Reason: Hypoglycemia Protocol Sodium Chloride (Sodium Chloride 0.9%) 1,000 mls @ 100 mls/hr IV .Q10H [facility] Last Admin: 07/02/18 00:00 Dose: 100 mls/hr Ibuprofen (Motrin Oral Susp) 200 mg PO Q6H PRN PRN Reason: Fever >100.4 F Last Admin: 06/28/18 23:26 Dose: 200 mg Insulin Aspart (Novolog) 0 unit SC [facility]; Protocol Last Admin: 07/02/18 11:29 Dose: Not Given Insulin Glargine (Lantus) 40 unit SC [facility] Last Admin: 06/25/18 22:02 Dose: Not Given Insulin Human Isoph/Insulin Regular (Novolin 70/30 (70/30 Units/Ml) 10 Ml) 15 units SC BID [facility] Last Admin: 06/26/18 09:27 Dose: 15 units Metoprolol Tartrate (Lopressor) 75 mg PO BID [facility] Last Admin: 07/02/18 10:57 Dose: Not Given Polyethylene Glycol (Miralax) 17 gm GT BID [facility] Last Admin: 07/02/18 10:57 Dose: Not Given Rosuvastatin Calcium (Crestor) 5 mg PO [facility] Last Admin: 07/01/18 22:01 Dose: Not Given Senna/Docusate Sodium (Senokot S 50 Mg-8.6 Mg) 1 tab PO BID [facility] Last Admin: 07/02/18 10:58 Dose: Not Given Vitamin A (Vitamin A & D Oint Ud Foilpak) 1 ea TOP BID PRN PRN Reason: Dry skin Last Admin: 06/13/18 10:47 Dose: 1 ea - Labs Labs: 07/02/18 07:10 07/02/18 07:10 PT 16.8 SECONDS (9.7-12.2) H 05/28/18 07:15 INR 1.5 05/28/18 07:15 APTT 34 SECONDS (21-34) 05/28/18 07:15 Attending/Attestation - Attestation I have personally seen and examined this patient.: Yes I have fully participated in the care of the patient.: Yes I have reviewed all pertinent clinical information, including history, physical exam and plan: Yes Notes (Text): 07/02/18 16:23 Medical attending: Patient was seen and examined by me. Agree with the above note by the resident The patient was not in any distress. Today quite a bit of mucus in trach so we suctioned while we saw her. Also we got a fenerstrated trach #6 size as well and hopefully we can change this over Yann Sheikh
[2018-07-02] MEDS: POLYETHYLENE GLYCOL 3350 17 GM/Dose PACKET GT SCH ×2 (10:57→17:49)
[2018-07-02] MEDS: Docusate-Senna 50 mg-8.6 mg Tab PO SCH ×2 (10:58→17:48)
[2018-07-02] MEDS: Sodium Chloride 0.9% 1,000 ML IV SCH ×3 (16:51→21:13)
--- NOTE | 2018-07-03 00:31 | CP.PCM.PN ---
Subjective - Date & Time of Evaluation Date of Evaluation: 07/03/18 Time of Evaluation: 00:30 - Subjective Subjective: Channing Tate PGY1 Progress Note for Dr. Sheikh Pt was examined at bedside. ROS was unattainable due to mental status. No acute events reported. Objective - Vital Signs/Intake and Output Vital Signs (last 24 hours): Temp Pulse Resp BP Pulse Ox 98.4 F 72 20 167/97 H 100 07/03/18 00:00 07/03/18 00:00 07/03/18 00:00 07/03/18 00:00 07/03/18 00:00 Intake and Output: 07/02/18 07/03/18 18:59 06:59 Intake Total 860 1160 Output Total 600 1000 Balance 260 160 - Medications Medications: Current Medications Albuterol/Ipratropium (Duoneb 3 Mg/0.5 Mg (3 Ml) Ud) 3 ml INH RQ4 [facility] Last Admin: 07/02/18 19:56 Dose: 3 ml Amlodipine Besylate (Norvasc) 10 mg PO DAILY [facility] Last Admin: 07/02/18 10:57 Dose: Not Given Aspirin (Aspirin Chewable) 81 mg PO DAILY [facility] Last Admin: 07/02/18 10:57 Dose: Not Given Clopidogrel Bisulfate (Plavix) 75 mg PO DAILY [facility] Last Admin: 05/22/18 10:07 Dose: 75 mg Dextrose (Dextrose 50% Inj) 0 ml IV STAT PRN; Protocol PRN Reason: Hypoglycemia Protocol Last Admin: 06/21/18 16:15 Dose: 50 ml Dextrose (Glutose 15) 15 gm PO ONCE PRN; Protocol PRN Reason: Hypoglycemia Protocol Famotidine (Pepcid) 20 mg GT BID [facility] Last Admin: 07/02/18 17:48 Dose: 20 mg Glucagon (Glucagen Diagnostic Kit) 1 mg IM STAT PRN; Protocol PRN Reason: Hypoglycemia Protocol Sodium Chloride (Sodium Chloride 0.9%) 1,000 mls @ 100 mls/hr IV .Q10H [facility] Last Admin: 07/02/18 21:13 Dose: 100 mls/hr Ibuprofen (Motrin Oral Susp) 200 mg PO Q6H PRN PRN Reason: Fever >100.4 F Last Admin: 06/28/18 23:26 Dose: 200 mg Insulin Aspart (Novolog) 0 unit SC ACHS [facility]; Protocol Last Admin: 07/02/18 22:04 Dose: Not Given Insulin Glargine (Lantus) 40 unit SC [facility] Last Admin: 06/25/18 22:02 Dose: Not Given Insulin Human Isoph/Insulin Regular (Novolin 70/30 (70/30 Units/Ml) 10 Ml) 15 units SC BID [facility] Last Admin: 06/26/18 09:27 Dose: 15 units Metoprolol Tartrate (Lopressor) 75 mg PO BID [facility] Last Admin: 07/02/18 17:48 Dose: 75 mg Polyethylene Glycol (Miralax) 17 gm GT BID [facility] Last Admin: 07/02/18 17:49 Dose: 17 gm Rosuvastatin Calcium (Crestor) 5 mg PO [facility] Last Admin: 07/02/18 21:30 Dose: 5 mg Senna/Docusate Sodium (Senokot S 50 Mg-8.6 Mg) 1 tab PO BID [facility] Last Admin: 07/02/18 17:48 Dose: 1 tab Vitamin A (Vitamin A & D Oint Ud Foilpak) 1 ea TOP BID PRN PRN Reason: Dry skin Last Admin: 06/13/18 10:47 Dose: 1 ea - Labs Labs: 07/02/18 07:10 07/02/18 07:10 PT 16.8 SECONDS (9.7-12.2) H 05/28/18 07:15 INR 1.5 05/28/18 07:15 APTT 34 SECONDS (21-34) 05/28/18 07:15 - Additional Findings Additional findings: - Constitutional Appears: Non-toxic, No Acute Distress, Chronically Ill - Head Exam Head Exam: ATRAUMATIC, NORMAL INSPECTION, NORMOCEPHALIC - Eye Exam Eye Exam: EOMI, Normal appearance Pupil Exam: NORMAL ACCOMODATION - ENT Exam ENT Exam: Mucous Membranes Moist, Normal Exam - Neck Exam Neck Exam: Full ROM, Normal Inspection Additional comments: trach collar in place with scant secretions suctioned - Respiratory Exam Respiratory Exam: Clear to Ausculation Bilateral, NORMAL BREATHING PATTERN. absent: Accessory Muscle Use, Respiratory Distress - Cardiovascular Exam Cardiovascular Exam: REGULAR RHYTHM, +S1, +S2 - GI/Abdominal Exam GI & Abdominal Exam: Soft. absent: Distended, Firm, Guarding, Rigid, Tenderness, Normal Bowel Sounds Additional comments: cath in proper placement, patent and feeding adequately. Abdominal binder in place. - Extremities Exam Extremities Exam: Normal Capillary Refill, Normal Inspection. absent: Calf Tenderness, Pedal Edema Additional comments: contracted b/l LE. scds in place. - Back Exam Back Exam: NORMAL INSPECTION - Neurological Exam Neurological Exam: Alert, Awake - Skin Skin Exam: Dry, Intact, Normal Color, Warm Assessment and Plan - Assessment and Plan (Free Text) Assessment: 52 yo F with PMHx of DM type II visiting from the [facility] reported to be found unresponsive by on 05/01. Patient intubated on field, brought to ED where CODE STROKE was called. Admitted to ICU for evaluation/monitoring of anoxic brain injury. Patient noted on exam to have ring monge suggestive of attempted suicidal attempt by hanging. [employer] made aware of case and confirm high likelihood of suicide attempt. Patient s/p tracheostomy and PED tube feeding. Patient weaned off ventilator to trach collar with humidified oxygen. Downgraded to telemetry for further monitoring. Will need extensive PT. Per ENT, vocal cords functional, consider weaning off O2. Attempted no supplemental O2 06/18 for approximately 5 minutes. Patient remained O2 saturating > 96% the entire time; however, she subsequently developed mucus plug that needed suctioning. Remains on trach collar at this time with further evaluation. Working aggressively with PT/OT/speech therapy, making significant progress and beginning to verbalize small syllable words. Plan: Anoxic Brain Injury- improving clinically - Aspiration precautions - Seizure precautions - Neurology on case, Dr. Duff/Guilherme - Turn and reposition q2h -Alvarado cath in proper placement for tube feeds, per Surgery -feeds resumed at 20cc/hr -f/u fenestrated trach collar -at bedside, to be switched out by Dr. Brennan on Thursday -continue to wean off O2 -patient making progress, verbalizing 1-2 syllable words before fatigued -Aggressive PT/OT/ST -swallow evaluation recs appreciated -honey thick liquid pleasure feeds Acute Renal Injury with oliguria- improving - Likely due to dehydration - No HD needed - Nephrology recs (Dr. 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 -Na level wnl, continue to monitor -correct as needed Hypertension- chronic, stable - No pressors (was previously hypotensive) - Norvasc 10 mg PO daily Respiratory Failure resolved - Due to Asphyxiation - Laryngoscopy (06/18): vocal cords functional - s/p tracheotomy - Consider removal of trach collar - Mucomyst Q4H d/c'd (06/21) - Duonebs Q4H - Suction prn - Humidified O2, continue to wean as tolerated Fevers resolved - Afebrile since 06/04, currently off Abx - Ice packs, cooling blanket - Sputum cultures (05/25): yeast - s/p meropenum 1g Q8H & flagyl 500mg Q8H (total 13 days of treatment) - Motrin 200 mg Q6H PRN NSTEMI resolved - Elevated troponin- has normalized - ASA 81 mg PO daily (restarted 05/25) - Plavix 75mg PO daily (held - given drop in Hb) - Crestor 5 mg PO QHS - Cardiology consulted (Dr Gay) Leukocytosis resolved - Repeat CXR (05/21): slightly low lung volumes with mild crowded bronchovascular markings and minor bibasilar atelectasis - BCx (05/02): no growth - Repeat BCx (05/17): no growth - UA: leuk est 3+, +WBC, +RBC, nitrate - - UCx 05/06/18: no growth -repeat UCx (05/13, 05/17): yeast species - Tracheal Aspirate Cx 05/08/18: yeast - Alvarado changed 05/17 - Doppler b/l UE and LE: negative for DVTs Hyperkalemia resolved - Continue to monitor, correct as needed Constipation, resolved - reported BM 06/28 - Senokot BID - Dulcolax 10 mg [place] TID PRN - Lactulose 20 mg PO daily PRN - PEG 17gm GT bid - Flat Plate Abd (06/26): normal bowel gas pattern PPx, Diet, Disposition - DVT ppx: Heparin 5,000 Units SC Q8H - GI ppx: Pepcid 20mg GT bid - Diet: Tube feed, Vital 1.2, honey thick liquids (pleasure feeds only, per swallow eval) - Vitamin A&D - Code status: full code
[2018-07-03] MEDS: Albuterol-Ipratrop 3 mg / 0.5 (3 ml) UD INH SCH ×5 (00:35→20:17)
[2018-07-03] MEDS: Sodium Chloride 0.9% 1,000 ML IV SCH ×3 (02:15→15:00)
[2018-07-03 07:58] LABS: BASO # 0.1 K/uL (0.0-0.2); EOS # 0.2 K/uL (0.0-0.7); EOS % 2.5 % (0.0-4.0); HEMOGLOBIN 10.1 g/dL (11.0-16.0); LYMPH # 1.6 K/uL (1.0-4.3); LYMPH % 22.5 % (20.0-40.0); MEAN CELL VOLUME 85.1 fL (81.0-99.0); MEAN CORPUSCULAR HEMOGLOBIN 28.2 pg (27.0-31.0); MEAN CORPUSCULAR HGB CONC 33.2 g/dL (33.0-37.0); MEAN PLATELET VOLUME 10.6 fL (7.2-11.7); MONO # 0.4 K/uL (0.0-0.8); MONO % 5.2 % (0.0-10.0); NEUT # 4.9 K/uL (1.8-7.0); NEUT % 68.8 % (50.0-75.0); NRBC % 0.1 % (0.0-2.0); RBC 3.57 Mil/uL (3.80-5.20); RED CELL DISTRIBUTION WIDTH 16.2 % (11.5-14.5); WHITE BLOOD COUNT 7.1 K/uL (4.8-10.8)
[2018-07-03 08:17] LABS: ALB/GLOB RATIO 1.1 (1.0-2.1); ALBUMIN 3.3 g/dL (3.5-5.0); ALT/SGPT 30 U/L (9-52); AST/SGOT 25 U/L (14-36); BLOOD UREA NITROGEN 3 mg/dL (7-17); CALCIUM 8.5 mg/dl (8.6-10.4); GFR NON-AFRICAN AMERICAN > 60
[2018-07-03] MEDS: (Novolog) Insulin Aspart, Recombinant 100 u/ml 10 ml vial SC SCH ×4 (08:28→21:44)
[2018-07-03] MEDS: POLYETHYLENE GLYCOL 3350 17 GM/Dose PACKET GT SCH ×2 (10:23→17:52)
[2018-07-03] MEDS: Docusate-Senna 50 mg-8.6 mg Tab PO SCH ×2 (10:23→17:48)
[2018-07-03] MEDS ORDERED: Potassium Chloride 20 mEq/15 ml LIQ UD PEG ONE (13:33)
[2018-07-04] MEDS: Albuterol-Ipratrop 3 mg / 0.5 (3 ml) UD INH SCH ×6 (00:05→20:20)
--- NOTE | 2018-07-04 00:16 | CP.PCM.PN ---
<Channing Tate - Last Filed: 07/04/18 00:15> Subjective - Date & Time of Evaluation Date of Evaluation: 07/04/18 Time of Evaluation: 00:15 - Subjective Subjective: Channing Tate PGY1 Progress Note for Dr. Sheikh Pt was examined at bedside. ROS was unattainable due to mental status. No acute events reported. Family is at bedside and has no events to report. Objective - Vital Signs/Intake and Output Vital Signs (last 24 hours): Temp Pulse Resp BP Pulse Ox 98.1 F 62 20 158/76 H 100 07/03/18 16:00 07/03/18 16:00 07/03/18 16:00 07/03/18 17:48 07/03/18 16:00 Intake and Output: 07/03/18 07/04/18 18:59 06:59 Intake Total 1160 960 Output Total 800 1000 Balance 360 -40 - Medications Medications: Current Medications Albuterol/Ipratropium (Duoneb 3 Mg/0.5 Mg (3 Ml) Ud) 3 ml INH RQ4 [facility] Last Admin: 07/03/18 20:17 Dose: 3 ml Amlodipine Besylate (Norvasc) 10 mg PO DAILY [facility] Last Admin: 07/03/18 10:23 Dose: 10 mg Aspirin (Aspirin Chewable) 81 mg PO DAILY [facility] Last Admin: 07/03/18 10:23 Dose: 81 mg Clopidogrel Bisulfate (Plavix) 75 mg PO DAILY [facility] Last Admin: 05/22/18 10:07 Dose: 75 mg Dextrose (Dextrose 50% Inj) 0 ml IV STAT PRN; Protocol PRN Reason: Hypoglycemia Protocol Last Admin: 06/21/18 16:15 Dose: 50 ml Dextrose (Glutose 15) 15 gm PO ONCE PRN; Protocol PRN Reason: Hypoglycemia Protocol Famotidine (Pepcid) 20 mg GT BID [facility] Last Admin: 07/03/18 17:48 Dose: 20 mg Glucagon (Glucagen Diagnostic Kit) 1 mg IM STAT PRN; Protocol PRN Reason: Hypoglycemia Protocol Sodium Chloride (Sodium Chloride 0.9%) 1,000 mls @ 100 mls/hr IV .Q10H [facility] Last Admin: 07/03/18 15:00 Dose: Not Given Ibuprofen (Motrin Oral Susp) 200 mg PO Q6H PRN PRN Reason: Fever >100.4 F Last Admin: 06/28/18 23:26 Dose: 200 mg Insulin Aspart (Novolog) 0 unit SC [facility]; Protocol Last Admin: 07/03/18 21:44 Dose: Not Given Insulin Glargine (Lantus) 40 unit SC [facility] Last Admin: 06/25/18 22:02 Dose: Not Given Insulin Human Isoph/Insulin Regular (Novolin 70/30 (70/30 Units/Ml) 10 Ml) 15 units SC BID [facility] Last Admin: 06/26/18 09:27 Dose: 15 units Metoprolol Tartrate (Lopressor) 75 mg PO BID [facility] Last Admin: 07/03/18 17:48 Dose: 75 mg Polyethylene Glycol (Miralax) 17 gm GT BID [facility] Last Admin: 07/03/18 17:52 Dose: 17 gm Rosuvastatin Calcium (Crestor) 5 mg PO [facility] Last Admin: 07/03/18 21:43 Dose: 5 mg Senna/Docusate Sodium (Senokot S 50 Mg-8.6 Mg) 1 tab PO BID [facility] Last Admin: 07/03/18 17:48 Dose: 1 tab Vitamin A (Vitamin A & D Oint Ud Foilpak) 1 ea TOP BID PRN PRN Reason: Dry skin Last Admin: 06/13/18 10:47 Dose: 1 ea - Labs Labs: 07/03/18 07:50 07/03/18 07:50 PT 16.8 SECONDS (9.7-12.2) H 05/28/18 07:15 INR 1.5 05/28/18 07:15 APTT 34 SECONDS (21-34) 05/28/18 07:15 - Additional Findings Additional findings: - Constitutional Appears: Non-toxic, No Acute Distress, Chronically Ill - Head Exam Head Exam: ATRAUMATIC, NORMAL INSPECTION, NORMOCEPHALIC - Eye Exam Eye Exam: EOMI, Normal appearance Pupil Exam: NORMAL ACCOMODATION - ENT Exam ENT Exam: Mucous Membranes Moist, Normal Exam - Neck Exam Neck Exam: Full ROM, Normal Inspection Additional comments: trach collar in place with scant secretions suctioned - Respiratory Exam Respiratory Exam: Clear to Ausculation Bilateral, NORMAL BREATHING PATTERN. absent: Accessory Muscle Use, Respiratory Distress - Cardiovascular Exam Cardiovascular Exam: REGULAR RHYTHM, +S1, +S2 - GI/Abdominal Exam GI & Abdominal Exam: Soft. absent: Distended, Firm, Guarding, Rigid, Tenderness, Normal Bowel Sounds Additional comments: cath in proper placement, patent and feeding adequately. Abdominal binder in place. - Extremities Exam Extremities Exam: Normal Capillary Refill, Normal Inspection. absent: Calf Tenderness, Pedal Edema Additional comments: contracted b/l LE. scds in place. - Back Exam Back Exam: NORMAL INSPECTION - Neurological Exam Neurological Exam: Alert, Awake - Skin Skin Exam: Dry, Intact, Normal Color, Warm Assessment and Plan - Assessment and Plan (Free Text) Assessment: 52 yo F with PMHx of DM type II visiting from the [facility] reported to be found unresponsive by on 05/01. Patient intubated on field, brought to ED where CODE STROKE was called. Admitted to ICU for evaluation/monitoring of anoxic brain injury. Patient noted on exam to have ring monge suggestive of attempted suicidal attempt by hanging. [employer] made aware of case and confirm high likelihood of suicide attempt. Patient s/p tracheostomy and PED tube feeding. Patient weaned off ventilator to trach collar with h umidified oxygen. Downgraded to telemetry for further monitoring. Will need extensive PT. Per ENT, vocal cords functional, consider weaning off O2. Attempted no supplemental O2 06/18 for approximately 5 minutes. Patient remained O2 saturating > 96% the entire time; however, she subsequently developed mucus plug that needed suctioning. Remains on trach collar at this time with further evaluation. Working aggressively with PT/OT/speech therapy, making significant progress and beginning to verbalize small syllable words. Plan: Anoxic Brain Injury- improving clinically - Aspiration precautions - Seizure precautions - Neurology on case, Dr. Duff/Guilherme - Turn and reposition q2h -Alvarado cath in proper placement for tube feeds, per Surgery -feeds resumed at 20cc/hr -f/u fenestrated trach collar -at bedside, to be switched out by Dr. Brennan on Thursday -continue to wean off O2 -patient making progress, verbalizing 1-2 syllable words before fatigued -Aggressive PT/OT/ST -swallow evaluation recs appreciated -honey thick liquid pleasure feeds Acute Renal Injury with oliguria- improving - Likely due to dehydration - No HD needed - Nephrology recs (Dr. 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 -Na level wnl, continue to monitor -correct as needed Hypertension- chronic, stable - No pressors (was previously hypotensive) - Norvasc 10 mg PO daily Respiratory Failure resolved - Due to Asphyxiation - Laryngoscopy (06/18): vocal cords functional - s/p tracheotomy - Consider removal of trach collar - Mucomyst Q4H d/c'd (06/21) - Duonebs Q4H - Suction prn - Humidified O2, continue to wean as tolerated Fevers resolved - Afebrile since 06/04, currently off Abx - Ice packs, cooling blanket - Sputum cultures (05/25): yeast - s/p meropenum 1g Q8H & flagyl 500mg Q8H (total 13 days of treatment) - Motrin 200 mg Q6H PRN NSTEMI resolved - Elevated troponin- has normalized - ASA 81 mg PO daily (restarted 05/25) - Plavix 75mg PO daily (held - given drop in Hb) - Crestor 5 mg PO QHS - Cardiology consulted (Dr Gay) Leukocytosis resolved - Repeat CXR (05/21): slightly low lung volumes with mild crowded bronchovascular markings and minor bibasilar atelectasis - BCx (05/02): no growth - Repeat BCx (05/17): no growth - UA: leuk est 3+, +WBC, +RBC, nitrate - - UCx 05/06/18: no growth -repeat UCx (05/13, 05/17): yeast species - Tracheal Aspirate Cx 05/08/18: yeast - Alvarado changed 05/17 - Doppler b/l UE and LE: negative for DVTs Hyperkalemia resolved - Continue to monitor, correct as needed Constipation, resolved - reported BM 06/28 - Senokot BID - Dulcolax 10 mg [place] TID PRN - Lactulose 20 mg PO daily PRN - PEG 17gm GT bid - Flat Plate Abd (06/26): normal bowel gas pattern PPx, Diet, Disposition - DVT ppx: Heparin 5,000 Units SC Q8H - GI ppx: Pepcid 20mg GT bid - Diet: Tube feed, Vital 1.2, honey thick liquids (pleasure feeds only, per swallow eval) - Vitamin A&D - Code status: full code <Yann Sheikh H - Last Filed: 07/04/18 11:56> Objective - Vital Signs/Intake and Output Vital Signs (last 24 hours): Temp Pulse Resp BP Pulse Ox 98.0 F 89 20 170/80 H 99 07/04/18 08:00 07/04/18 08:00 07/04/18 08:00 07/04/18 10:09 07/04/18 08:00 Intake and Output: 07/04/18 07/04/18 06:59 18:59 Intake Total 960 1160 Output Total 1000 500 Balance -40 660 - Medications Medications: Current Medications Albuterol/Ipratropium (Duoneb 3 Mg/0.5 Mg (3 Ml) Ud) 3 ml INH RQ4 [facility] Last Admin: 07/04/18 11:10 Dose: Not Given Amlodipine Besylate (Norvasc) 10 mg PO DAILY [facility] Last Admin: 07/04/18 10:09 Dose: 10 mg Aspirin (Aspirin Chewable) 81 mg PO DAILY [facility] Last Admin: 07/04/18 10:09 Dose: 81 mg Clopidogrel Bisulfate (Plavix) 75 mg PO DAILY [facility] Last Admin: 05/22/18 10:07 Dose: 75 mg Dextrose (Dextrose 50% Inj) 0 ml IV STAT PRN; Protocol PRN Reason: Hypoglycemia Protocol Last Admin: 06/21/18 16:15 Dose: 50 ml Dextrose (Glutose 15) 15 gm PO ONCE PRN; Protocol PRN Reason: Hypoglycemia Protocol Famotidine (Pepcid) 20 mg GT BID [facility] Last Admin: 07/04/18 10:09 Dose: 20 mg Glucagon (Glucagen Diagnostic Kit) 1 mg IM STAT PRN; Protocol PRN Reason: Hypoglycemia Protocol Sodium Chloride (Sodium Chloride 0.9%) 1,000 mls @ 70 mls/hr IV .[id number] [facility] Ibuprofen (Motrin Oral Susp) 200 mg PO Q6H PRN PRN Reason: Fever >100.4 F Last Admin: 06/28/18 23:26 Dose: 200 mg Insulin Aspart (Novolog) 0 unit SC [facility]; Protocol Last Admin: 07/04/18 11:46 Dose: Not Given Insulin Glargine (Lantus) 40 unit SC HS [facility] Last Admin: 06/25/18 22:02 Dose: Not Given Insulin Human Isoph/Insulin Regular (Novolin 70/30 (70/30 Units/Ml) 10 Ml) 15 units SC BID [facility] Last Admin: 06/26/18 09:27 Dose: 15 units Metoprolol Tartrate (Lopressor) 75 mg PO BID [facility] Last Admin: 07/04/18 10:09 Dose: 75 mg Polyethylene Glycol (Miralax) 17 gm GT BID [facility] Last Admin: 07/04/18 10:09 Dose: 17 gm Potassium Chloride (Potassium Chloride Oral Soln) 20 meq PO DAILY [facility] Rosuvastatin Calcium (Crestor) 5 mg PO HS [facility] Last Admin: 07/03/18 21:43 Dose: 5 mg Senna/Docusate Sodium (Senokot S 50 Mg-8.6 Mg) 1 tab PO BID [facility] Last Admin: 07/04/18 10:09 Dose: 1 tab Vitamin A (Vitamin A & D Oint Ud Foilpak) 1 ea TOP BID PRN PRN Reason: Dry skin Last Admin: 06/13/18 10:47 Dose: 1 ea - Labs Labs: 07/04/18 07:43 07/04/18 07:43 PT 16.8 SECONDS (9.7-12.2) H 05/28/18 07:15 INR 1.5 05/28/18 07:15 APTT 34 SECONDS (21-34) 05/28/18 07:15 Attending/Attestation - Attestation I have personally seen and examined this patient.: Yes I have fully participated in the care of the patient.: Yes I have reviewed all pertinent clinical information, including history, physical exam and plan: Yes
[2018-07-04] MEDS: Sodium Chloride 0.9% 1,000 ML IV SCH ×2 (00:59→12:08)
[2018-07-04 08:08] LABS: BASO # 0.1 K/uL (0.0-0.2); BASO % 1.3 % (0.0-2.0); EOS # 0.2 K/uL (0.0-0.7); EOS % 2.8 % (0.0-4.0); HEMOGLOBIN 10.2 g/dL (11.0-16.0); LYMPH # 1.7 K/uL (1.0-4.3); LYMPH % 23.3 % (20.0-40.0); MEAN CELL VOLUME 84.6 fL (81.0-99.0); MEAN CORPUSCULAR HEMOGLOBIN 28.9 pg (27.0-31.0); MEAN CORPUSCULAR HGB CONC 34.2 g/dL (33.0-37.0); MEAN PLATELET VOLUME 10.5 fL (7.2-11.7); MONO # 0.4 K/uL (0.0-0.8); NEUT # 4.8 K/uL (1.8-7.0); NEUT % 66.6 % (50.0-75.0); RBC 3.53 Mil/uL (3.80-5.20); RED CELL DISTRIBUTION WIDTH 16.2 % (11.5-14.5); WHITE BLOOD COUNT 7.2 K/uL (4.8-10.8)
[2018-07-04] MEDS: (Novolog) Insulin Aspart, Recombinant 100 u/ml 10 ml vial SC SCH ×4 (08:09→21:42)
[2018-07-04 08:36] LABS: ALB/GLOB RATIO 1.3 (1.0-2.1); ALBUMIN 3.3 g/dL (3.5-5.0); ALT/SGPT 27 U/L (9-52); AST/SGOT 21 U/L (14-36); BLOOD UREA NITROGEN 4 mg/dL (7-17); CALCIUM 8.8 mg/dl (8.6-10.4); GFR NON-AFRICAN AMERICAN > 60
[2018-07-04] MEDS: Docusate-Senna 50 mg-8.6 mg Tab PO SCH ×2 (10:09→18:53)
[2018-07-04] MEDS: POLYETHYLENE GLYCOL 3350 17 GM/Dose PACKET GT SCH ×2 (10:09→18:53)
[2018-07-04] MEDS: Potassium Chloride 20 mEq/15 ml LIQ UD PO SCH (12:13)
[2018-07-05] MEDS: Sodium Chloride 0.9% 1,000 ML IV SCH ×2 (02:00→17:35)
[2018-07-05 07:03] LABS: BASO # 0.1 K/uL (0.0-0.2); EOS # 0.2 K/uL (0.0-0.7); EOS % 2.5 % (0.0-4.0); HEMOGLOBIN 10.7 g/dL (11.0-16.0); LYMPH # 1.9 K/uL (1.0-4.3); LYMPH % 26.9 % (20.0-40.0); MEAN CELL VOLUME 84.5 fL (81.0-99.0); MEAN CORPUSCULAR HEMOGLOBIN 27.9 pg (27.0-31.0); MEAN PLATELET VOLUME 10.1 fL (7.2-11.7); MONO # 0.4 K/uL (0.0-0.8); NEUT # 4.6 K/uL (1.8-7.0); NEUT % 63.6 % (50.0-75.0); NRBC % 0.1 % (0.0-2.0); RBC 3.82 Mil/uL (3.80-5.20); RED CELL DISTRIBUTION WIDTH 16.4 % (11.5-14.5); WHITE BLOOD COUNT 7.2 K/uL (4.8-10.8)
[2018-07-05 07:23] LABS: ALB/GLOB RATIO 1.2 (1.0-2.1); ALBUMIN 3.5 g/dL (3.5-5.0); ALT/SGPT 22 U/L (9-52); AST/SGOT 23 U/L (14-36); BLOOD UREA NITROGEN 4 mg/dL (7-17); CALCIUM 8.8 mg/dl (8.6-10.4); GFR NON-AFRICAN AMERICAN > 60
--- NOTE | 2018-07-05 07:46 | CP.PCM.PN ---
<Montez Miles - Last Filed: 07/05/18 10:32> Subjective - Date & Time of Evaluation Date of Evaluation: 07/05/18 Time of Evaluation: 07:46 - Subjective Subjective: PGY-1 Medicine Progress Note for Dr. Negrete Patient seen and examined at bedside this AM. No acute overnight events reported. Patient's family faithfully at bedside, report patient having difficulty sleeping at night. 12 pt ROS unattainable due to patient's clinical status. Objective - Vital Signs/Intake and Output Vital Signs (last 24 hours): Temp Pulse Resp BP Pulse Ox 97.9 F 62 20 159/80 H 100 07/05/18 00:38 07/05/18 00:38 07/05/18 00:38 07/05/18 00:38 07/05/18 00:38 - Medications Medications: Current Medications Albuterol/Ipratropium (Duoneb 3 Mg/0.5 Mg (3 Ml) Ud) 3 ml INH RQ4 [facility] Last Admin: 07/04/18 20:20 Dose: 3 ml Amlodipine Besylate (Norvasc) 10 mg PO DAILY [facility] Last Admin: 07/04/18 10:09 Dose: 10 mg Aspirin (Aspirin Chewable) 81 mg PO DAILY [facility] Last Admin: 07/04/18 10:09 Dose: 81 mg Clopidogrel Bisulfate (Plavix) 75 mg PO DAILY [facility] Last Admin: 05/22/18 10:07 Dose: 75 mg Dextrose (Dextrose 50% Inj) 0 ml IV STAT PRN; Protocol PRN Reason: Hypoglycemia Protocol Last Admin: 06/21/18 16:15 Dose: 50 ml Dextrose (Glutose 15) 15 gm PO ONCE PRN; Protocol PRN Reason: Hypoglycemia Protocol Famotidine (Pepcid) 20 mg GT BID [facility] Last Admin: 07/04/18 18:53 Dose: 20 mg Glucagon (Glucagen Diagnostic Kit) 1 mg IM STAT PRN; Protocol PRN Reason: Hypoglycemia Protocol Sodium Chloride (Sodium Chloride 0.9%) 1,000 mls @ 70 mls/hr IV .[id number] [facility] Last Admin: 07/05/18 02:00 Dose: Not Given Ibuprofen (Motrin Oral Susp) 200 mg PO Q6H PRN PRN Reason: Fever >100.4 F Last Admin: 06/28/18 23:26 Dose: 200 mg Insulin Aspart (Novolog) [address] [facility]; Protocol Last Admin: 07/04/18 21:42 Dose: Not Given Insulin Glargine (Lantus) 40 unit SC [facility] Last Admin: 06/25/18 22:02 Dose: Not Given Insulin Human Isoph/Insulin Regular (Novolin 70/30 (70/30 Units/Ml) 10 Ml) 15 units SC BID [facility] Last Admin: 06/26/18 09:27 Dose: 15 units Lorazepam (Ativan) 0.5 mg IVP Q8H PRN PRN Reason: Anxiety Last Admin: 07/04/18 15:52 Dose: 0.5 mg Metoprolol Tartrate (Lopressor) 75 mg PO BID [facility] Last Admin: 07/04/18 18:53 Dose: 75 mg Polyethylene Glycol (Miralax) 17 gm GT BID [facility] Last Admin: 07/04/18 18:53 Dose: 17 gm Potassium Chloride (Potassium Chloride Oral Soln) 20 meq PO DAILY [facility] Last Admin: 07/04/18 12:13 Dose: 20 meq Rosuvastatin Calcium (Crestor) 5 mg PO [facility] Last Admin: 07/04/18 22:13 Dose: 5 mg Senna/Docusate Sodium (Senokot S 50 Mg-8.6 Mg) 1 tab PO BID [facility] Last Admin: 07/04/18 18:53 Dose: 1 tab Vitamin A (Vitamin A & D Oint Ud Foilpak) 1 ea TOP BID PRN PRN Reason: Dry skin Last Admin: 06/13/18 10:47 Dose: 1 ea - Labs Labs: 07/05/18 06:58 07/05/18 06:58 PT 16.8 SECONDS (9.7-12.2) H 05/28/18 07:15 INR 1.5 05/28/18 07:15 APTT 34 SECONDS (21-34) 05/28/18 07:15 - Constitutional Appears: Non-toxic, No Acute Distress, Chronically Ill - Head Exam Head Exam: ATRAUMATIC, NORMAL INSPECTION, NORMOCEPHALIC - Eye Exam Eye Exam: EOMI, Normal appearance, PERRL Pupil Exam: NORMAL ACCOMODATION - ENT Exam ENT Exam: Mucous Membranes Moist, Normal Exam - Neck Exam Neck Exam: Full ROM, Normal Inspection Additional comments: trach collar in place, patent and functioning, no secretions noted - Respiratory Exam Respiratory Exam: Clear to Ausculation Bilateral, NORMAL BREATHING PATTERN. absent: Accessory Muscle Use, Rales, Rhonchi, Wheezes, Respiratory Distress, Stridor - Cardiovascular Exam Cardiovascular Exam: REGULAR RHYTHM, +S1, +S2 - GI/Abdominal Exam GI & Abdominal Exam: Soft, Normal Bowel Sounds Additional comments: cath tube in place, patent and feeding adequately. Abdominal binder in place. - Extremities Exam Extremities Exam: Full ROM, Normal Capillary Refill Additional comments: contracted b/l LE. scds in place. - Neurological Exam Neurological Exam: Alert, Awake - Skin Skin Exam: Dry, Intact, Normal Color, Warm Assessment and Plan - Assessment and Plan (Free Text) Assessment: 52 yo F with PMHx of DM type II visiting from the [place] reported to be found unresponsive by on 05/01. Patient intubated on field, brought to ED where CODE STROKE was called. Admitted to ICU for evaluation/monitoring of anoxic brain injury. Patient noted on exam to have ring monge suggestive of attempted suicidal attempt by hanging. [employer] made aware of case and confirm high likelihood of suicide attempt. Patient s/p tracheostomy and PED tube feeding. Patient weaned off ventilator to trach collar with humidified oxygen. Downgraded to telemetry for further monitoring. Will need extensive PT. Per ENT, vocal cords functional, consider weaning off O2. Attempted no supplemental O2 06/18 for approximately 5 minutes. Patient remained O2 saturating > 96% the entire time; however, she subsequently developed mucus plug that needed suctioning. Remains on trach collar at this time with further evaluation. Working aggressively with PT/OT/speech therapy, making significant progress and beginning to verbalize small syllable words. Plan: Anoxic Brain Injury- improving clinically - Aspiration precautions - Seizure precautions - Neurology on case, Dr. Duff/Guilherme - Turn and reposition q2h -Alvarado cath in proper placement for tube feeds, per Surgery -feeds resumed at 20cc/hr -fenestrated trach collar -at bedside, to be switched out by Dr. Brennan today (07/05) -continue to wean off O2 -patient making progress, verbalizing 1-2 syllable words before fatigued -Aggressive PT/OT/ST -swallow evaluation recs appreciated -honey thick liquid pleasure feeds Acute Renal Injury with oliguria- improving - Likely due to dehydration - No HD needed - Nephrology recs (Dr. 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 -Na level wnl, continue to monitor -correct as needed Hypertension- chronic, stable - No pressors (was previously hypotensive) - Norvasc 10 mg PO daily Respiratory Failure resolved - Due to Asphyxiation - Laryngoscopy (06/18): vocal cords functional - s/p tracheotomy - Consider removal of trach collar - Mucomyst Q4H d/c'd (06/21) - Duonebs Q4H - Suction prn - Humidified O2, continue to wean as tolerated Fevers resolved - Afebrile since 06/04, currently off Abx - Ice packs, cooling blanket - Sputum cultures (05/25): yeast - s/p meropenum 1g Q8H & flagyl 500mg Q8H (total 13 days of treatment) - Motrin 200 mg Q6H PRN NSTEMI resolved - Elevated troponin- has normalized - ASA 81 mg PO daily (restarted 05/25) - Plavix 75mg PO daily (held - given drop in Hb) - Crestor 5 mg PO QHS - Cardiology consulted (Dr Gay) Leukocytosis resolved - Repeat CXR (05/21): slightly low lung volumes with mild crowded bronchovascular markings and minor bibasilar atelectasis - BCx (05/02): no growth - Repeat BCx (05/17): no growth - UA: leuk est 3+, +WBC, +RBC, nitrate - - UCx 05/06/18: no growth -repeat UCx (05/13, 05/17): yeast species - Tracheal Aspirate Cx 05/08/18: yeast - Alvarado changed 05/17 - Doppler b/l UE and LE: negative for DVTs Hyperkalemia resolved - Continue to monitor, correct as needed Constipation, resolved - reported BM 06/28 - Senokot BID - Dulcolax 10 mg [place] TID PRN - Lactulose 20 mg PO daily PRN - PEG 17gm GT bid - Flat Plate Abd (06/26): normal bowel gas pattern PPx, Diet, Disposition - DVT ppx: Heparin 5,000 Units SC Q8H - GI ppx: Pepcid 20mg GT bid - Diet: Tube feed, Vital 1.2, honey thick liquids (pleasure feeds only, per swallow eval) - Vitamin A&D - Code status: full code Case discussed with Dr. Caden Miles DO, PGY-1 <Emmett Negrete - Last Filed: 07/10/18 21:21> Objective - Vital Signs/Intake and Output Vital Signs (last 24 hours): Temp Pulse Resp BP Pulse Ox 99.6 F 78 20 156/74 H 99 07/10/18 17:09 07/10/18 17:09 07/10/18 17:09 07/10/18 17:57 07/10/18 17:09 Intake and Output: 07/10/18 07/11/18 18:59 06:59 Intake Total 2031 Output Total 850 Balance 1181 - Medications Medications: Current Medications Albuterol/Ipratropium (Duoneb 3 Mg/0.5 Mg (3 Ml) Ud) 3 ml INH RQ4 [facility] Last Admin: 07/10/18 19:20 Dose: 3 ml Amlodipine Besylate (Norvasc) 10 mg PO DAILY [facility] Last Admin: 07/10/18 09:21 Dose: 10 mg Aspirin (Aspirin Chewable) 81 mg PO DAILY [facility] Last Admin: 07/10/18 09:21 Dose: 81 mg Clopidogrel Bisulfate (Plavix) 75 mg PO DAILY [facility] Last Admin: 05/22/18 10:07 Dose: 75 mg Dextrose (Dextrose 50% Inj) 0 ml IV STAT PRN; Protocol PRN Reason: Hypoglycemia Protocol Last Admin: 06/21/18 16:15 Dose: 50 ml Dextrose (Glutose 15) 15 gm PO ONCE PRN; Protocol PRN Reason: Hypoglycemia Protocol Famotidine (Pepcid) 20 mg GT BID [facility] Last Admin: 07/10/18 17:57 Dose: 20 mg Glucagon (Glucagen Diagnostic Kit) 1 mg IM STAT PRN; Protocol PRN Reason: Hypoglycemia Protocol Ibuprofen (Motrin Oral Susp) 200 mg PO Q6H PRN PRN Reason: Fever >100.4 F Last Admin: 07/06/18 21:19 Dose: 200 mg Insulin Aspart (Novolog) [address] [facility]; Protocol Last Admin: 07/10/18 11:31 Dose: 2 units Insulin Glargine (Lantus) 40 unit SC [facility] Last Admin: 06/25/18 22:02 Dose: Not Given Insulin Human Isoph/Insulin Regular (Novolin 70/30 (70/30 Units/Ml) 10 Ml) 15 units SC BID [facility] Last Admin: 06/26/18 09:27 Dose: 15 units Lorazepam (Ativan) 0.5 mg IVP Q8H PRN PRN Reason: Anxiety Last Admin: 07/07/18 18:04 Dose: 0.5 mg Metoprolol Tartrate (Lopressor) 75 mg PO BID [facility] Last Admin: 07/10/18 17:57 Dose: 75 mg Polyethylene Glycol (Miralax) 17 gm GT BID [facility] Last Admin: 07/10/18 17:58 Dose: 17 gm Potassium Chloride (Potassium Chloride Oral Soln) 20 meq PO DAILY [facility] Last Admin: 07/10/18 09:22 Dose: 20 meq Rosuvastatin Calcium (Crestor) 5 mg PO [facility] Last Admin: 07/09/18 21:01 Dose: 5 mg Senna/Docusate Sodium (Senokot S 50 Mg-8.6 Mg) 1 tab PO BID [facility] Last Admin: 07/10/18 17:58 Dose: 1 tab Vitamin A (Vitamin A & D Oint Ud Foilpak) 1 ea TOP BID PRN PRN Reason: Dry skin Last Admin: 06/13/18 10:47 Dose: 1 ea - Labs Labs: 07/10/18 08:55 07/10/18 08:55 PT 16.8 SECONDS (9.7-12.2) H 05/28/18 07:15 INR 1.5 05/28/18 07:15 APTT 34 SECONDS (21-34) 05/28/18 07:15 Attending/Attestation - Attestation I have personally seen and examined this patient.: Yes I have fully participated in the care of the patient.: Yes I have reviewed all pertinent clinical information, including history, physical exam and plan: Yes Notes (Text): seen and examined assessment and the plan discussed with the resident and I agree with the lazarus mcinytre
[2018-07-05] MEDS: Albuterol-Ipratrop 3 mg / 0.5 (3 ml) UD INH SCH ×5 (08:00→23:53)
[2018-07-05] MEDS: (Novolog) Insulin Aspart, Recombinant 100 u/ml 10 ml vial SC SCH ×4 (08:00→21:14)
[2018-07-05] MEDS: Potassium Chloride 20 mEq/15 ml LIQ UD PO SCH (10:11)
[2018-07-05] MEDS: Docusate-Senna 50 mg-8.6 mg Tab PO SCH ×2 (10:11→17:34)
[2018-07-05] MEDS: POLYETHYLENE GLYCOL 3350 17 GM/Dose PACKET GT SCH ×2 (10:12→17:33)
--- NOTE | 2018-07-06 03:04 | CP.PCM.PN ---
<Ritu Dominguez - Last Filed: 07/06/18 04:12> Subjective - Date & Time of Evaluation Date of Evaluation: 07/06/18 Time of Evaluation: 03:45 - Subjective Subjective: Patient examined at bedside. No acute overnight events per nursing. All ROS unobtainabl as patient remains non-verbal. Objective - Vital Signs/Intake and Output Vital Signs (last 24 hours): Temp Pulse Resp BP Pulse Ox 97.5 F L 60 20 116/69 100 07/05/18 23:44 07/05/18 23:44 07/05/18 23:44 07/05/18 23:44 07/05/18 23:44 Intake and Output: 07/05/18 07/06/18 18:59 06:59 Intake Total 1800 720 Output Total 2500 500 Balance -700 220 - Medications Medications: Current Medications Albuterol/Ipratropium (Duoneb 3 Mg/0.5 Mg (3 Ml) Ud) 3 ml INH RQ4 [facility] Last Admin: 07/05/18 23:53 Dose: 3 ml Amlodipine Besylate (Norvasc) 10 mg PO DAILY [facility] Last Admin: 07/05/18 10:12 Dose: 10 mg Aspirin (Aspirin Chewable) 81 mg PO DAILY [facility] Last Admin: 07/05/18 10:12 Dose: 81 mg Clopidogrel Bisulfate (Plavix) 75 mg PO DAILY [facility] Last Admin: 05/22/18 10:07 Dose: 75 mg Dextrose (Dextrose 50% Inj) 0 ml IV STAT PRN; Protocol PRN Reason: Hypoglycemia Protocol Last Admin: 06/21/18 16:15 Dose: 50 ml Dextrose (Glutose 15) 15 gm PO ONCE PRN; Protocol PRN Reason: Hypoglycemia Protocol Famotidine (Pepcid) 20 mg GT BID [facility] Last Admin: 07/05/18 17:34 Dose: 20 mg Glucagon (Glucagen Diagnostic Kit) 1 mg IM STAT PRN; Protocol PRN Reason: Hypoglycemia Protocol Sodium Chloride (Sodium Chloride 0.9%) 1,000 mls @ 70 mls/hr IV .[id number] [facility] Last Admin: 07/05/18 17:35 Dose: 70 mls/hr Ibuprofen (Motrin Oral Susp) 200 mg PO Q6H PRN PRN Reason: Fever >100.4 F Last Admin: 06/28/18 23:26 Dose: 200 mg Insulin Aspart (Novolog) 0 unit SC ACHS [facility]; Protocol Last Admin: 07/05/18 21:14 Dose: Not Given Insulin Glargine (Lantus) 40 unit SC [facility] Last Admin: 06/25/18 22:02 Dose: Not Given Insulin Human Isoph/Insulin Regular (Novolin 70/30 (70/30 Units/Ml) 10 Ml) 15 units SC BID [facility] Last Admin: 06/26/18 09:27 Dose: 15 units Lorazepam (Ativan) 0.5 mg IVP Q8H PRN PRN Reason: Anxiety Last Admin: 07/04/18 15:52 Dose: 0.5 mg Metoprolol Tartrate (Lopressor) 75 mg PO BID [facility] Last Admin: 07/05/18 17:34 Dose: 75 mg Polyethylene Glycol (Miralax) 17 gm GT BID [facility] Last Admin: 07/05/18 17:33 Dose: 17 gm Potassium Chloride (Potassium Chloride Oral Soln) 20 meq PO DAILY [facility] Last Admin: 07/05/18 10:11 Dose: 20 meq Rosuvastatin Calcium (Crestor) 5 mg PO [facility] Last Admin: 07/05/18 21:14 Dose: 5 mg Senna/Docusate Sodium (Senokot S 50 Mg-8.6 Mg) 1 tab PO BID [facility] Last Admin: 07/05/18 17:34 Dose: 1 tab Vitamin A (Vitamin A & D Oint Ud Foilpak) 1 ea TOP BID PRN PRN Reason: Dry skin Last Admin: 06/13/18 10:47 Dose: 1 ea - Labs Labs: 07/05/18 06:58 07/05/18 06:58 PT 16.8 SECONDS (9.7-12.2) H 05/28/18 07:15 INR 1.5 05/28/18 07:15 APTT 34 SECONDS (21-34) 05/28/18 07:15 - Additional Findings Additional findings: - Constitutional Appears: Non-toxic, No Acute Distress, Chronically Ill - Head Exam Head Exam: ATRAUMATIC, NORMAL INSPECTION, NORMOCEPHALIC - Eye Exam Eye Exam: EOMI, Normal appearance, PERRL Pupil Exam: NORMAL ACCOMODATION - ENT Exam ENT Exam: Mucous Membranes Moist, Normal Exam - Neck Exam Neck Exam: Full ROM, Normal Inspection Additional comments: trach collar in place, patent and functioning, no secretions noted - Respiratory Exam Respiratory Exam: Clear to Ausculation Bilateral, NORMAL BREATHING PATTERN. absent: Accessory Muscle Use, Rales, Rhonchi, Wheezes, Respiratory Distress, Stridor - Cardiovascular Exam Cardiovascular Exam: REGULAR RHYTHM, +S1, +S2 - GI/Abdominal Exam GI & Abdominal Exam: Soft, Normal Bowel Sounds Additional comments: cath tube in place, patent and feeding adequately. Abdominal binder in place. - Extremities Exam Extremities Exam: Full ROM, Normal Capillary Refill Additional comments: contracted b/l LE. scds in place. - Neurological Exam Neurological Exam: Alert, Awake - Skin Skin Exam: Dry, Intact, Normal Color, Warm Assessment and Plan - Assessment and Plan (Free Text) Assessment: 52 year old female admitted for evaluation and treatment of anoxic brain injury Plan: AMS -improving, able to follow 1 direction commands -ativan prn anxiety -PT/OT/ST Respiratory failure -patient currently tolerating O2 -by, trach collar -continue to monitor O2%/RR, attempt weaning off O2 -duonebs HTN -metoprolol/norvasc DM -ISS -lantus 40 hs -accuchecks Nutrition -vital 1.2 at 20/hr -monitor for tolerance -200cc free water flushes q6 Ppx -colindres -heparin, DVT ppx -pepcid, GI ppx -PO/OT/Speech -Ritu Dominguez, PGY-1 <Emmett Negrete - Last Filed: 07/10/18 21:20> Objective - Vital Signs/Intake and Output Vital Signs (last 24 hours): Temp Pulse Resp BP Pulse Ox 99.6 F 78 20 156/74 H 99 07/10/18 17:09 07/10/18 17:09 07/10/18 17:09 07/10/18 17:57 07/10/18 17:09 Intake and Output: 07/10/18 07/11/18 18:59 06:59 Intake Total 2031 Output Total 850 Balance 1181 - Medications Medications: Current Medications Albuterol/Ipratropium (Duoneb 3 Mg/0.5 Mg (3 Ml) Ud) 3 ml INH RQ4 [facility] Last Admin: 07/10/18 19:20 Dose: 3 ml Amlodipine Besylate (Norvasc) 10 mg PO DAILY [facility] Last Admin: 07/10/18 09:21 Dose: 10 mg Aspirin (Aspirin Chewable) 81 mg PO DAILY [facility] Last Admin: 07/10/18 09:21 Dose: 81 mg Clopidogrel Bisulfate (Plavix) 75 mg PO DAILY [facility] Last Admin: 05/22/18 10:07 Dose: 75 mg Dextrose (Dextrose 50% Inj) 0 ml IV STAT PRN; Protocol PRN Reason: Hypoglycemia Protocol Last Admin: 06/21/18 16:15 Dose: 50 ml Dextrose (Glutose 15) 15 gm PO ONCE PRN; Protocol PRN Reason: Hypoglycemia Protocol Famotidine (Pepcid) 20 mg GT BID [facility] Last Admin: 07/10/18 17:57 Dose: 20 mg Glucagon (Glucagen Diagnostic Kit) 1 mg IM STAT PRN; Protocol PRN Reason: Hypoglycemia Protocol Ibuprofen (Motrin Oral Susp) 200 mg PO Q6H PRN PRN Reason: Fever >100.4 F Last Admin: 07/06/18 21:19 Dose: 200 mg Insulin Aspart (Novolog) 0 unit SC [facility]; Protocol Last Admin: 07/10/18 11:31 Dose: 2 units Insulin Glargine (Lantus) 40 unit SC [facility] Last Admin: 06/25/18 22:02 Dose: Not Given Insulin Human Isoph/Insulin Regular (Novolin 70/30 (70/30 Units/Ml) 10 Ml) 15 units SC BID [facility] Last Admin: 06/26/18 09:27 Dose: 15 units Lorazepam (Ativan) 0.5 mg IVP Q8H PRN PRN Reason: Anxiety Last Admin: 07/07/18 18:04 Dose: 0.5 mg Metoprolol Tartrate (Lopressor) 75 mg PO BID [facility] Last Admin: 07/10/18 17:57 Dose: 75 mg Polyethylene Glycol (Miralax) 17 gm GT BID [facility] Last Admin: 07/10/18 17:58 Dose: 17 gm Potassium Chloride (Potassium Chloride Oral Soln) 20 meq PO DAILY [facility] Last Admin: 07/10/18 09:22 Dose: 20 meq Rosuvastatin Calcium (Crestor) 5 mg PO HS [facility] Last Admin: 07/09/18 21:01 Dose: 5 mg Senna/Docusate Sodium (Senokot S 50 Mg-8.6 Mg) 1 tab PO BID [facility] Last Admin: 01/05/19 17:58 Dose: 1 tab Vitamin A (Vitamin A & D Oint Ud Foilpak) 1 ea TOP BID PRN PRN Reason: Dry skin Last Admin: 06/13/18 10:47 Dose: 1 ea - Labs Labs: 07/10/18 08:55 07/10/18 08:55 PT 16.8 SECONDS (9.7-12.2) H 05/28/18 07:15 INR 1.5 05/28/18 07:15 APTT 34 SECONDS (21-34) 05/28/18 07:15 Attending/Attestation - Attestation I have personally seen and examined this patient.: Yes I have fully participated in the care of the patient.: Yes I have reviewed all pertinent clinical information, including history, physical exam and plan: Yes Notes (Text): No new changes continue current management
[2018-07-06] MEDS: Albuterol-Ipratrop 3 mg / 0.5 (3 ml) UD INH SCH ×6 (03:27→23:57)
[2018-07-06 07:03] LABS: BASO # 0.1 K/uL (0.0-0.2); BASO % 1.1 % (0.0-2.0); EOS # 0.2 K/uL (0.0-0.7); EOS % 4.5 % (0.0-4.0); HEMOGLOBIN 9.9 g/dL (11.0-16.0); LYMPH # 1.7 K/uL (1.0-4.3); LYMPH % 31.5 % (20.0-40.0); MEAN CELL VOLUME 83.9 fL (81.0-99.0); MEAN CORPUSCULAR HEMOGLOBIN 27.9 pg (27.0-31.0); MEAN CORPUSCULAR HGB CONC 33.2 g/dL (33.0-37.0); MEAN PLATELET VOLUME 9.9 fL (7.2-11.7); MONO # 0.3 K/uL (0.0-0.8); MONO % 5.8 % (0.0-10.0); NEUT # 3.1 K/uL (1.8-7.0); NEUT % 57.1 % (50.0-75.0); NRBC % 0.1 % (0.0-2.0); RBC 3.56 Mil/uL (3.80-5.20); RED CELL DISTRIBUTION WIDTH 16.2 % (11.5-14.5); WHITE BLOOD COUNT 5.4 K/uL (4.8-10.8)
[2018-07-06 07:30] LABS: ALB/GLOB RATIO 1.2 (1.0-2.1); ALBUMIN 3.2 g/dL (3.5-5.0); ALT/SGPT 22 U/L (9-52); AST/SGOT 27 U/L (14-36); BLOOD UREA NITROGEN 4 mg/dL (7-17); CALCIUM 8.6 mg/dl (8.6-10.4); GFR NON-AFRICAN AMERICAN > 60
[2018-07-06] MEDS: (Novolog) Insulin Aspart, Recombinant 100 u/ml 10 ml vial SC SCH ×4 (08:25→22:00)
[2018-07-06] MEDS: Sodium Chloride 0.9% 1,000 ML IV SCH (08:30)
[2018-07-06] MEDS: Potassium Chloride 20 mEq/15 ml LIQ UD PO SCH (10:29)
[2018-07-06] MEDS: POLYETHYLENE GLYCOL 3350 17 GM/Dose PACKET GT SCH ×2 (10:29→18:00)
[2018-07-06] MEDS: Docusate-Senna 50 mg-8.6 mg Tab PO SCH ×2 (10:30→18:00)
[2018-07-07] MEDS: Albuterol-Ipratrop 3 mg / 0.5 (3 ml) UD INH SCH ×5 (03:20→20:07)
[2018-07-07 07:47] LABS: BASO # 0.1 K/uL (0.0-0.2); BASO % 0.8 % (0.0-2.0); EOS # 0.3 K/uL (0.0-0.7); EOS % 3.8 % (0.0-4.0); HEMOGLOBIN 10.4 g/dL (11.0-16.0); LYMPH # 1.9 K/uL (1.0-4.3); LYMPH % 27.3 % (20.0-40.0); MEAN CELL VOLUME 84.3 fL (81.0-99.0); MEAN CORPUSCULAR HEMOGLOBIN 28.1 pg (27.0-31.0); MEAN CORPUSCULAR HGB CONC 33.3 g/dL (33.0-37.0); MEAN PLATELET VOLUME 10.4 fL (7.2-11.7); MONO # 0.4 K/uL (0.0-0.8); MONO % 6.2 % (0.0-10.0); NEUT # 4.2 K/uL (1.8-7.0); NEUT % 61.9 % (50.0-75.0); NRBC % 0.1 % (0.0-2.0); RBC 3.71 Mil/uL (3.80-5.20); RED CELL DISTRIBUTION WIDTH 16.2 % (11.5-14.5); WHITE BLOOD COUNT 6.8 K/uL (4.8-10.8)
[2018-07-07 08:05] LABS: ALB/GLOB RATIO 1.2 (1.0-2.1); ALBUMIN 3.5 g/dL (3.5-5.0); ALT/SGPT 24 U/L (9-52); AST/SGOT 31 U/L (14-36); BLOOD UREA NITROGEN 4 mg/dL (7-17); GFR NON-AFRICAN AMERICAN > 60
--- NOTE | 2018-07-07 08:05 | CP.PCM.PN ---
<Montez Miles - Last Filed: 07/07/18 13:07> Subjective - Date & Time of Evaluation Date of Evaluation: 07/07/18 Time of Evaluation: 08:04 - Subjective Subjective: PGY-1 Medicine Progress Note for Dr. Negrete Patient seen and examined at bedside this AM. Pt pulled out temporary colindres PEG tube again today. Latex free 16 fr colindres inserted with gastric residual, Vital feedings restarted at 20cc/hr. 12 pt ROS unattainable due to patient's clinical status. Objective - Vital Signs/Intake and Output Vital Signs (last 24 hours): Temp Pulse Resp BP Pulse Ox 97.4 F L 68 20 143/80 100 07/07/18 00:00 07/07/18 00:00 07/07/18 00:00 07/07/18 00:00 07/07/18 00:00 Intake and Output: 07/07/18 07/07/18 06:59 18:59 Intake Total 2130 Output Total 1600 200 Balance 530 -200 - Medications Medications: Current Medications Albuterol/Ipratropium (Duoneb 3 Mg/0.5 Mg (3 Ml) Ud) 3 ml INH RQ4 [facility] Last Admin: 07/07/18 03:20 Dose: 3 ml Amlodipine Besylate (Norvasc) 10 mg PO DAILY [facility] Last Admin: 07/06/18 10:30 Dose: 10 mg Aspirin (Aspirin Chewable) 81 mg PO DAILY [facility] Last Admin: 07/06/18 10:29 Dose: 81 mg Clopidogrel Bisulfate (Plavix) 75 mg PO DAILY [facility] Last Admin: 05/22/18 10:07 Dose: 75 mg Dextrose (Dextrose 50% Inj) 0 ml IV STAT PRN; Protocol PRN Reason: Hypoglycemia Protocol Last Admin: 06/21/18 16:15 Dose: 50 ml Dextrose (Glutose 15) 15 gm PO ONCE PRN; Protocol PRN Reason: Hypoglycemia Protocol Famotidine (Pepcid) 20 mg GT BID [facility] Last Admin: 07/06/18 18:00 Dose: 20 mg Glucagon (Glucagen Diagnostic Kit) 1 mg IM STAT PRN; Protocol PRN Reason: Hypoglycemia Protocol Sodium Chloride (Sodium Chloride 0.9%) 1,000 mls @ 70 mls/hr IV .[id number] [facility] Last Admin: 07/06/18 08:30 Dose: 70 mls/hr Ibuprofen (Motrin Oral Susp) 200 mg PO Q6H PRN PRN Reason: Fever >100.4 F Last Admin: 07/06/18 21:19 Dose: 200 mg Insulin Aspart (Novolog) 0 unit SC [facility]; Protocol Last Admin: 07/06/18 17:45 Dose: 2 units Insulin Glargine (Lantus) [address] [facility] Last Admin: 06/25/18 22:02 Dose: Not Given Insulin Human Isoph/Insulin Regular (Novolin 70/30 (70/30 Units/Ml) 10 Ml) 15 units SC BID [facility] Last Admin: 06/26/18 09:27 Dose: 15 units Lorazepam (Ativan) 0.5 mg IVP Q8H PRN PRN Reason: Anxiety Last Admin: 07/04/18 15:52 Dose: 0.5 mg Metoprolol Tartrate (Lopressor) 75 mg PO BID [facility] Last Admin: 07/06/18 18:00 Dose: 75 mg Polyethylene Glycol (Miralax) 17 gm GT BID [facility] Last Admin: 07/06/18 18:00 Dose: 17 gm Potassium Chloride (Potassium Chloride Oral Soln) 20 meq PO DAILY [facility] Last Admin: 07/06/18 10:29 Dose: 20 meq Rosuvastatin Calcium (Crestor) [address] [facility] Last Admin: 07/06/18 21:21 Dose: 5 mg Senna/Docusate Sodium (Senokot S 50 Mg-8.6 Mg) 1 tab PO BID [facility] Last Admin: 07/06/18 18:00 Dose: 1 tab Vitamin A (Vitamin A & D Oint Ud Foilpak) 1 ea TOP BID PRN PRN Reason: Dry skin Last Admin: 06/13/18 10:47 Dose: 1 ea - Labs Labs: 07/07/18 07:37 07/06/18 06:44 PT 16.8 SECONDS (9.7-12.2) H 05/28/18 07:15 INR 1.5 05/28/18 07:15 APTT 34 SECONDS (21-34) 05/28/18 07:15 - Constitutional Appears: Non-toxic, No Acute Distress, Chronically Ill - Head Exam Head Exam: ATRAUMATIC, NORMAL INSPECTION, NORMOCEPHALIC - Eye Exam Eye Exam: EOMI, Normal appearance Pupil Exam: NORMAL ACCOMODATION - ENT Exam ENT Exam: Mucous Membranes Moist, Normal Exam - Neck Exam Neck Exam: Full ROM, Normal Inspection - Respiratory Exam Respiratory Exam: Clear to Ausculation Bilateral, NORMAL BREATHING PATTERN. absent: Accessory Muscle Use, Rales, Rhonchi, Wheezes, Respiratory Distress, Stridor - Cardiovascular Exam Cardiovascular Exam: REGULAR RHYTHM, +S1, +S2 - GI/Abdominal Exam GI & Abdominal Exam: Soft, Normal Bowel Sounds. absent: Distended, Firm, Guarding, Rigid, Tenderness, Rebound Additional comments: 16 fr colindres in proper position, patent and feeding adequately at 20cc/hr; abdominal binder in place - Extremities Exam Extremities Exam: Normal Capillary Refill, Normal Inspection. absent: Calf Tenderness, Pedal Edema Additional comments: contracted hands, feet b/l - Neurological Exam Neurological Exam: Alert, Awake - Skin Skin Exam: Dry, Intact, Normal Color, Warm Assessment and Plan - Assessment and Plan (Free Text) Assessment: 52 yo F with PMHx of DM type II visiting from the [facility] reported to be found unresponsive by on 05/01. Patient intubated on field, brought to ED where CODE STROKE was called. Admitted to ICU for evaluation/monitoring of anoxic brain injury. Patient noted on exam to have ring monge suggestive of attempted suicidal attempt by hanging. [employer] made aware of case and confirm high likelihood of suicide attempt. Patient s/p tracheostomy and PED tube feeding. Patient weaned off ventilator to trach collar with humidified oxygen. Downgraded to telemetry for further monitoring. Will need extensive PT. Per ENT, vocal cords functional, consider weaning off O2. Attempted no supplemental O2 06/18 for approximately 5 minutes. Patient remained O2 saturating > 96% the entire time; however, she subsequently developed mucus plug that needed suctioning. Remains on trach collar at this time with further evaluation. Working aggressively with PT/OT/speech therapy, making significant progress and beginning to verbalize small syllable words. Plan: Anoxic Brain Injury- improving clinically - Aspiration precautions - Seizure precautions - Neurology on case, Dr. Duff/Guilherme - Turn and reposition q2h -16 fr colindres cath in proper placement for tube feeds -feeds resumed at 20cc/hr -fenestrated trach collar -at bedside, to be switched out by Dr. Brennan today (07/05) -continue to wean off O2 -patient making progress, verbalizing 1-2 syllable words before fatigued -Aggressive PT/OT/ST -swallow evaluation recs appreciated -honey thick liquid pleasure feeds Acute Renal Injury with oliguria- improving - Likely due to dehydration - No HD needed - Nephrology recs (Dr. 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 -Na level wnl, continue to monitor -correct as needed Hypertension- chronic, stable - No pressors (was previously hypotensive) - Norvasc 10 mg PO daily Respiratory Failure resolved - Due to Asphyxiation - Laryngoscopy (06/18): vocal cords functional - s/p tracheotomy - Consider removal of trach collar - Mucomyst Q4H d/c'd (06/21) - Duonebs Q4H - Suction prn - Humidified O2, continue to wean as tolerated Fevers resolved - Afebrile since 06/04, currently off Abx - Ice packs, cooling blanket - Sputum cultures (05/25): yeast - s/p meropenum 1g Q8H & flagyl 500mg Q8H (total 13 days of treatment) - Motrin 200 mg Q6H PRN NSTEMI resolved - Elevated troponin- has normalized - ASA 81 mg PO daily (restarted 05/25) - Plavix 75mg PO daily (held - given drop in Hb) - Crestor 5 mg PO QHS - Cardiology consulted (Dr Gay) Leukocytosis resolved - Repeat CXR (05/21): slightly low lung volumes with mild crowded broncho vascular markings and minor bibasilar atelectasis - BCx (05/02): no growth - Repeat BCx (05/17): no growth - UA: leuk est 3+, +WBC, +RBC, nitrate - - UCx 05/06/18: no growth -repeat UCx (05/13, 05/17): yeast species - Tracheal Aspirate Cx 05/08/18: yeast - Colindres changed 05/17 - Doppler b/l UE and LE: negative for DVTs Hyperkalemia resolved - Continue to monitor, correct as needed Constipation, resolved - reported BM 06/28 - Senokot BID - Dulcolax 10 mg PA TID PRN - Lactulose 20 mg PO daily PRN - PEG 17gm GT bid - Flat Plate Abd (06/26): normal bowel gas pattern PPx, Diet, Disposition - DVT ppx: Heparin 5,000 Units SC Q8H - GI ppx: Pepcid 20mg GT bid - Diet: Tube feed, Vital 1.2, honey thick liquids (pleasure feeds only, per swallow eval) - Vitamin A&D - Code status: full code Case discussed with Dr. Caden Miles DO, PGY-1 <Emmett Negrete - Last Filed: 07/10/18 21:19> Objective - Vital Signs/Intake and Output Vital Signs (last 24 hours): Temp Pulse Resp BP Pulse Ox 99.6 F 78 20 156/74 H 99 07/10/18 17:09 07/10/18 17:09 07/10/18 17:09 07/10/18 17:57 07/10/18 17:09 Intake and Output: 07/10/18 07/11/18 18:59 06:59 Intake Total 2031 Output Total 850 Balance 1181 - Medications Medications: Current Medications Albuterol/Ipratropium (Duoneb 3 Mg/0.5 Mg (3 Ml) Ud) 3 ml INH RQ4 [facility] Last Admin: 07/10/18 19:20 Dose: 3 ml Amlodipine Besylate (Norvasc) 10 mg PO DAILY [facility] Last Admin: 07/10/18 09:21 Dose: 10 mg Aspirin (Aspirin Chewable) 81 mg PO DAILY [facility] Last Admin: 07/10/18 09:21 Dose: 81 mg Clopidogrel Bisulfate (Plavix) 75 mg PO DAILY [facility] Last Admin: 05/22/18 10:07 Dose: 75 mg Dextrose (Dextrose 50% Inj) 0 ml IV STAT PRN; Protocol PRN Reason: Hypoglycemia Protocol Last Admin: 06/21/18 16:15 Dose: 50 ml Dextrose (Glutose 15) 15 gm PO ONCE PRN; Protocol PRN Reason: Hypoglycemia Protocol Famotidine (Pepcid) 20 mg GT BID [facility] Last Admin: 07/10/18 17:57 Dose: 20 mg Glucagon (Glucagen Diagnostic Kit) 1 mg IM STAT PRN; Protocol PRN Reason: Hypoglycemia Protocol Ibuprofen (Motrin Oral Susp) 200 mg PO Q6H PRN PRN Reason: Fever >100.4 F Last Admin: 07/06/18 21:19 Dose: 200 mg Insulin Aspart (Novolog) 0 unit SC ACHS [facility]; Protocol Last Admin: 07/10/18 11:31 Dose: 2 units Insulin Glargine (Lantus) [address] [facility] Last Admin: 06/25/18 22:02 Dose: Not Given Insulin Human Isoph/Insulin Regular (Novolin 70/30 (70/30 Units/Ml) 10 Ml) 15 units SC BID [facility] Last Admin: 06/26/18 09:27 Dose: 15 units Lorazepam (Ativan) 0.5 mg IVP Q8H PRN PRN Reason: Anxiety Last Admin: 07/07/18 18:04 Dose: 0.5 mg Metoprolol Tartrate (Lopressor) 75 mg PO BID [facility] Last Admin: 07/10/18 17:57 Dose: 75 mg Polyethylene Glycol (Miralax) 17 gm GT BID [facility] Last Admin: 07/10/18 17:58 Dose: 17 gm Potassium Chloride (Potassium Chloride Oral Soln) 20 meq PO DAILY [facility] Last Admin: 07/10/18 09:22 Dose: 20 meq Rosuvastatin Calcium (Crestor) 5 mg PO HS [facility] Last Admin: 07/09/18 21:01 Dose: 5 mg Senna/Docusate Sodium (Senokot S 50 Mg-8.6 Mg) 1 tab PO BID [facility] Last Admin: 07/10/18 17:58 Dose: 1 tab Vitamin A (Vitamin A & D Oint Ud [facility]) 1 ea TOP BID PRN PRN Reason: Dry skin Last Admin: 06/13/18 10:47 Dose: 1 ea - Labs Labs: 07/10/18 08:55 07/10/18 08:55 PT 16.8 SECONDS (9.7-12.2) H 05/28/18 07:15 INR 1.5 05/28/18 07:15 APTT 34 SECONDS (21-34) 05/28/18 07:15 Attending/Attestation - Attestation I have personally seen and examined this patient.: Yes I have fully participated in the care of the patient.: Yes I have reviewed all pertinent clinical information, including history, physical exam and plan: Yes Notes (Text): seen and examined Tube feed, Vital 1.2, honey thick liquids (pleasure feeds only, per swallow eval) PT and OT follow DR Brennan for trach management Assessment and the plan discussed with the resident
[2018-07-07] MEDS: (Novolog) Insulin Aspart, Recombinant 100 u/ml 10 ml vial SC SCH ×3 (08:30→22:45)
[2018-07-07] MEDS: POLYETHYLENE GLYCOL 3350 17 GM/Dose PACKET GT SCH (17:52)
[2018-07-07] MEDS: Docusate-Senna 50 mg-8.6 mg Tab PO SCH (17:59)
[2018-07-08] MEDS: Albuterol-Ipratrop 3 mg / 0.5 (3 ml) UD INH SCH ×6 (00:45→19:15)
--- NOTE | 2018-07-08 07:19 | CP.PCM.PN ---
<Montez Miles - Last Filed: 07/08/18 13:55> Subjective - Date & Time of Evaluation Date of Evaluation: 07/08/18 Time of Evaluation: 07:18 - Subjective Subjective: PGY-1 Medicine Progress Note for Dr. Negrete Patient seen and examined at bedside this AM. No acute overnight events reported. Patient did not sleep well last night, more drowsy this am. Bilateral mittens off, refused by family, per nursing. Rolled face towel was placed in hand instead. Swallowing reassessed, observed with 4 tsps of nectar thick liquids and 2 tsp of pureed solids. It appeared that pt was tolerating intakes. Immediately after, pt began vomiting. Trials were stopped. Will consult GI to address esophageal issues. Objective - Vital Signs/Intake and Output Vital Signs (last 24 hours): Temp Pulse Resp BP Pulse Ox 98.2 F 63 20 165/75 H 100 07/08/18 00:00 07/08/18 00:00 07/08/18 00:00 07/08/18 00:00 07/08/18 00:00 Intake and Output: 07/08/18 07/08/18 06:59 18:59 Intake Total 1840 Output Total 1050 Balance 790 - Medications Medications: Current Medications Albuterol/Ipratropium (Duoneb 3 Mg/0.5 Mg (3 Ml) Ud) 3 ml INH RQ4 [facility] Last Admin: 07/08/18 04:05 Dose: 3 ml Amlodipine Besylate (Norvasc) 10 mg PO DAILY [facility] Last Admin: 07/06/18 10:30 Dose: 10 mg Aspirin (Aspirin Chewable) 81 mg PO DAILY [facility] Last Admin: 07/06/18 10:29 Dose: 81 mg Clopidogrel Bisulfate (Plavix) 75 mg PO DAILY [facility] Last Admin: 05/22/18 10:07 Dose: 75 mg Dextrose (Dextrose 50% Inj) 0 ml IV STAT PRN; Protocol PRN Reason: Hypoglycemia Protocol Last Admin: 06/21/18 16:15 Dose: 50 ml Dextrose (Glutose 15) 15 gm PO ONCE PRN; Protocol PRN Reason: Hypoglycemia Protocol Famotidine (Pepcid) 20 mg GT BID [facility] Last Admin: 07/07/18 17:53 Dose: 20 mg Glucagon (Glucagen Diagnostic Kit) 1 mg IM STAT PRN; Protocol PRN Reason: Hypoglycemia Protocol Ibuprofen (Motrin Oral Susp) 200 mg PO Q6H PRN PRN Reason: Fever >100.4 F Last Admin: 07/06/18 21:19 Dose: 200 mg Insulin Aspart (Novolog) [address] [facility]; Protocol Last Admin: 07/07/18 22:45 Dose: Not Given Insulin Glargine (Lantus) 40 unit SC [facility] Last Admin: 06/25/18 22:02 Dose: Not Given Insulin Human Isoph/Insulin Regular (Novolin 70/30 (70/30 Units/Ml) 10 Ml) 15 units SC BID [facility] Last Admin: 06/26/18 09:27 Dose: 15 units Lorazepam (Ativan) 0.5 mg IVP Q8H PRN PRN Reason: Anxiety Last Admin: 07/07/18 18:04 Dose: 0.5 mg Metoprolol Tartrate (Lopressor) 75 mg PO BID [facility] Last Admin: 07/07/18 17:52 Dose: 75 mg Polyethylene Glycol (Miralax) 17 gm GT BID [facility] Last Admin: 07/07/18 17:52 Dose: 17 gm Potassium Chloride (Potassium Chloride Oral Soln) 20 meq PO DAILY [facility] Last Admin: 07/06/18 10:29 Dose: 20 meq Rosuvastatin Calcium (Crestor) 5 mg PO HS [facility] Last Admin: 07/07/18 22:44 Dose: 5 mg Senna/Docusate Sodium (Senokot S 50 Mg-8.6 Mg) 1 tab PO BID [facility] Last Admin: 07/07/18 17:59 Dose: 1 tab Vitamin A (Vitamin A & D Oint Ud Foilpak) 1 ea TOP BID PRN PRN Reason: Dry skin Last Admin: 06/13/18 10:47 Dose: 1 ea - Labs Labs: 07/07/18 07:37 07/07/18 07:37 PT 16.8 SECONDS (9.7-12.2) H 05/28/18 07:15 INR 1.5 05/28/18 07:15 APTT 34 SECONDS (21-34) 05/28/18 07:15 - Constitutional Appears: Non-toxic, No Acute Distress, Chronically Ill - Head Exam Head Exam: ATRAUMATIC, NORMAL INSPECTION, NORMOCEPHALIC - Eye Exam Eye Exam: EOMI, Normal appearance Pupil Exam: NORMAL ACCOMODATION - ENT Exam ENT Exam: Mucous Membranes Moist, Normal Exam - Neck Exam Neck Exam: Full ROM, Normal Inspection - Respiratory Exam Respiratory Exam: Clear to Ausculation Bilateral, NORMAL BREATHING PATTERN. absent: Accessory Muscle Use, Rales, Rhonchi, Wheezes, Respiratory Distress, Stridor - Cardiovascular Exam Cardiovascular Exam: REGULAR RHYTHM, +S1, +S2 - GI/Abdominal Exam GI & Abdominal Exam: Soft, Normal Bowel Sounds. absent: Distended, Firm, Guarding, Rigid, Tenderness, Organomegaly, Rebound Additional comments: 16 fr colindres in proper position, patent and feeding adequately at 20cc/hr; abdominal binder in place - Extremities Exam Extremities Exam: Normal Capillary Refill. absent: Calf Tenderness, Pedal Edema Additional comments: contracted hands, feet b/l - Neurological Exam Neurological Exam: Alert, Awake - Skin Skin Exam: Dry, Intact, Normal Color, Warm Assessment and Plan - Assessment and Plan (Free Text) Assessment: 52 yo F with PMHx of DM type II visiting from the [facility] [place] reported to be found unresponsive by on 05/01. Patient intubated on field, brought to ED where CODE STROKE was called. Admitted to ICU for evaluation/monitoring of anoxic brain injury. Patient noted on exam to have ring monge suggestive of attempted suicidal attempt by hanging. [employer] made aware of case and confirm high likelihood of suicide attempt. Patient s/p tracheostomy and PED tube feeding. Patient weaned off ventilator to trach collar with humid ified oxygen. Downgraded to telemetry for further monitoring. Remains on trach collar, tube feeds at this time with further evaluation. Working aggressively with PT/OT/speech therapy, making significant progress and beginning to verbalize small syllable words. Plan: Anoxic Brain Injury- improving clinically - Aspiration precautions - Seizure precautions - Neurology on case, Dr. Duff/Guilherme - Turn and reposition q2h -16 fr colindres cath in proper placement for tube feeds -feeds resumed at 20cc/hr -fenestrated trach collar -at bedside, to be switched out by Dr. Brennan -continue to wean off O2 -patient making progress, verbalizing 1-2 syllable words before fatigued -Aggressive PT/OT/ST -swallow re-evaluation (07/08) -upon reevaulation, pt vomited trial feeds -will consult GI for esophageal issues -tube feeds held Acute Renal Injury with oliguria- improving - Likely due to dehydration - No HD needed - Nephrology recs (Dr. 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 -Na level wnl, continue to monitor -correct as needed Hypertension- chronic, stable - No pressors (was previously hypotensive) - Norvasc 10 mg PO daily Respiratory Failure resolved - Due to Asphyxiation - Laryngoscopy (06/18): vocal cords functional - s/p tracheotomy - Consider removal of trach collar - Mucomyst Q4H d/c'd (06/21) - Duonebs Q4H - Suction prn - Humidified O2, continue to wean as tolerated Fevers resolved - Afebrile since 06/04, currently off Abx - Ice packs, cooling blanket - Sputum cultures (05/25): yeast - s/p meropenum 1g Q8H & flagyl 500mg Q8H (total 13 days of treatment) - Motrin 200 mg Q6H PRN NSTEMI resolved - Elevated troponin- has normalized - ASA 81 mg PO daily (restarted 05/25) - Plavix 75mg PO daily (held - given drop in Hb) - Crestor 5 mg PO QHS - Cardiology consulted (Dr Gay) Leukocytosis resolved - Repeat CXR (05/21): slightly low lung volumes with mild crowded bronchovascular markings and minor bibasilar atelectasis - BCx (05/02): no growth - Repeat BCx (05/17): no growth - UA: leuk est 3+, +WBC, +RBC, nitrate - - UCx 05/06/18: no growth -repeat UCx (05/13, 05/17): yeast species - Tracheal Aspirate Cx 05/08/18: yeast - Colindres changed 05/17 - Doppler b/l UE and LE: negative for DVTs Hyperkalemia resolved - Continue to monitor, correct as needed Constipation, resolved - reported BM 06/28 - Senokot BID - Dulcolax 10 mg OR TID PRN - Lactulose 20 mg PO daily PRN - PEG 17gm GT bid - Flat Plate Abd (06/26): normal bowel gas pattern PPx, Diet, Disposition - DVT ppx: Heparin 5,000 Units SC Q8H - GI ppx: Pepcid 20mg GT bid - Diet: Tube feed, Vital 1.2, honey thick liquids (pleasure feeds only, per sw allow eval) - Vitamin A&D - Code status: full code Case discussed with Dr. Caden Miles DO, PGY-1 <Emmett Negrete - Last Filed: 07/10/18 21:17> Objective - Vital Signs/Intake and Output Vital Signs (last 24 hours): Temp Pulse Resp BP Pulse Ox 99.6 F 78 20 156/74 H 99 07/10/18 17:09 07/10/18 17:09 07/10/18 17:09 07/10/18 17:57 07/10/18 17:09 Intake and Output: 07/10/18 07/11/18 18:59 06:59 Intake Total 2031 Output Total 850 Balance 1181 - Medications Medications: Current Medications Albuterol/Ipratropium (Duoneb 3 Mg/0.5 Mg (3 Ml) Ud) 3 ml INH RQ4 [facility] Last Admin: 07/10/18 19:20 Dose: 3 ml Amlodipine Besylate (Norvasc) 10 mg PO DAILY [facility] Last Admin: 07/10/18 09:21 Dose: 10 mg Aspirin (Aspirin Chewable) 81 mg PO DAILY [facility] Last Admin: 07/10/18 09:21 Dose: 81 mg Clopidogrel Bisulfate (Plavix) 75 mg PO DAILY [facility] Last Admin: 05/22/18 10:07 Dose: 75 mg Dextrose (Dextrose 50% Inj) 0 ml IV STAT PRN; Protocol PRN Reason: Hypoglycemia Protocol Last Admin: 06/21/18 16:15 Dose: 50 ml Dextrose (Glutose 15) 15 gm PO ONCE PRN; Protocol PRN Reason: Hypoglycemia Protocol Famotidine (Pepcid) 20 mg GT BID [facility] Last Admin: 07/10/18 17:57 Dose: 20 mg Glucagon (Glucagen Diagnostic Kit) 1 mg IM STAT PRN; Protocol PRN Reason: Hypoglycemia Protocol Ibuprofen (Motrin Oral Susp) 200 mg PO Q6H PRN PRN Reason: Fever >100.4 F Last Admin: 07/06/18 21:19 Dose: 200 mg Insulin Aspart (Novolog) 0 unit SC [facility]; Protocol Last Admin: 07/10/18 11:31 Dose: 2 units Insulin Glargine (Lantus) 40 unit SC HS [facility] Last Admin: 06/25/18 22:02 Dose: Not Given Insulin Human Isoph/Insulin Regular (Novolin 70/30 (70/30 Units/Ml) 10 Ml) 15 units SC BID [facility] Last Admin: 06/26/18 09:27 Dose: 15 units Lorazepam (Ativan) 0.5 mg IVP Q8H PRN PRN Reason: Anxiety Last Admin: 07/07/18 18:04 Dose: 0.5 mg Metoprolol Tartrate (Lopressor) 75 mg PO BID [facility] Last Admin: 07/10/18 17:57 Dose: 75 mg Polyethylene Glycol (Miralax) 17 gm GT BID [facility] Last Admin: 07/10/18 17:58 Dose: 17 gm Potassium Chloride (Potassium Chloride Oral Soln) 20 meq PO DAILY [facility] Last Admin: 07/10/18 09:22 Dose: 20 meq Rosuvastatin Calcium (Crestor) 5 mg PO HS [facility] Last Admin: 07/09/18 21:01 Dose: 5 mg Senna/Docusate Sodium (Senokot S 50 Mg-8.6 Mg) 1 tab PO BID [facility] Last Admin: 07/10/18 17:58 Dose: 1 tab Vitamin A (Vitamin A & D Oint Ud Foilpak) 1 ea TOP BID PRN PRN Reason: Dry skin Last Admin: 06/13/18 10:47 Dose: 1 ea - Labs Labs: 07/10/18 08:55 07/10/18 08:55 PT 16.8 SECONDS (9.7-12.2) H 05/28/18 07:15 INR 1.5 05/28/18 07:15 APTT 34 SECONDS (21-34) 05/28/18 07:15 Attending/Attestation - Attestation I have personally seen and examined this patient.: Yes I have fully participated in the care of the patient.: Yes I have reviewed all pertinent clinical information, including history, physical exam and plan: Yes Notes (Text): seen and examined spoke to family at bedside continue PT/OT and supportive care
[2018-07-08] MEDS: (Novolog) Insulin Aspart, Recombinant 100 u/ml 10 ml vial SC SCH ×4 (08:30→22:04)
[2018-07-08] MEDS: POLYETHYLENE GLYCOL 3350 17 GM/Dose PACKET GT SCH ×2 (10:42→17:48)
[2018-07-08] MEDS: Docusate-Senna 50 mg-8.6 mg Tab PO SCH ×2 (10:43→17:48)
[2018-07-08] MEDS: Potassium Chloride 20 mEq/15 ml LIQ UD PO SCH (10:45)
[2018-07-08 12:10] LABS: BASO # 0.1 K/uL (0.0-0.2); EOS # 0.2 K/uL (0.0-0.7); EOS % 2.6 % (0.0-4.0); HEMOGLOBIN 11.1 g/dL (11.0-16.0); LYMPH # 1.2 K/uL (1.0-4.3); LYMPH % 20.4 % (20.0-40.0); MEAN CORPUSCULAR HEMOGLOBIN 28.8 pg (27.0-31.0); MEAN CORPUSCULAR HGB CONC 34.3 g/dL (33.0-37.0); MEAN PLATELET VOLUME 10.1 fL (7.2-11.7); MONO # 0.4 K/uL (0.0-0.8); MONO % 6.1 % (0.0-10.0); NEUT # 4.1 K/uL (1.8-7.0); NEUT % 69.9 % (50.0-75.0); RBC 3.86 Mil/uL (3.80-5.20); RED CELL DISTRIBUTION WIDTH 16.2 % (11.5-14.5); WHITE BLOOD COUNT 5.8 K/uL (4.8-10.8)
[2018-07-08 12:31] LABS: ALB/GLOB RATIO 1.2 (1.0-2.1); ALBUMIN 3.7 g/dL (3.5-5.0); ALT/SGPT 23 U/L (9-52); AST/SGOT 35 U/L (14-36); BLOOD UREA NITROGEN 3 mg/dL (7-17); CALCIUM 8.9 mg/dl (8.6-10.4); GFR NON-AFRICAN AMERICAN > 60
[2018-07-08] MEDS: Sodium Chloride 0.9% 1,000 ML IV SCH (14:31)
--- NOTE | 2018-07-08 16:18 | CP.PCM.CON ---
<Chaitanya Hogue - Last Filed: 07/08/18 17:54> History of Present Illness - History of Present Illness History of Present Illness: GI Fellow PGY4, consult note. Brenda Hodge is a 52F with prolonged stay at [facility]. She was initially admitted with anoxic brain injury and had trach/g-tube placement. We were consulted as patient has been having intermittent vomiting with G-tube feeds x 2 weeks as well as a she could not tolerate an increase in oral feeds today. Patient is non-verbal but reported can answer simple questions appropriately. I spoke with son and daughter with the use of translation device. They say she has most difficulty with vomiting when lying down. Less problems when sitting up. She does not appear to be malnourished and has not had hypoglycemic episodes to my knowledge while on insulin. Chart history reviewed including images, swallow evaluations, labs, medications. PMHx - as above. PSHx - as above FMHx - unrelated SocHx - No tobacco or alcohol use currently. Unable to obtain 12pt ROS due to changes in mental status. Past Patient History - Tetanus Immunizations Tetanus Immunization: Unknown - Past Medical History & Family History Past Medical History?: No - Past Social History Smoking Status: Never Smoked - MUSCULOSKELETAL/RHEUMATOLOGICAL Hx Falls: Yes - PSYCHIATRIC Hx Substance Use: (UNKNOWN) - SURGICAL HISTORY Hx Surgeries: (UNOBTAINABLE) - ANESTHESIA Hx Anesthesia: (UNOBTAINABLE) Meds Allergies/Adverse Reactions: Allergies Allergy/AdvReac Type Severity Reaction Status Date / Time No Known Allergies Allergy Verified 05/05/18 11:51 - Medications Medications: Current Medications Albuterol/Ipratropium (Duoneb 3 Mg/0.5 Mg (3 Ml) Ud) 3 ml INH RQ4 [facility] Last Admin: 07/08/18 15:35 Dose: 3 ml Amlodipine Besylate (Norvasc) 10 mg PO DAILY [facility] Last Admin: 07/08/18 10:44 Dose: 10 mg Aspirin (Aspirin Chewable) 81 mg PO DAILY [facility] Last Admin: 07/08/18 10:43 Dose: 81 mg Clopidogrel Bisulfate (Plavix) 75 mg PO DAILY [facility] Last Admin: 05/22/18 10:07 Dose: 75 mg Dextrose (Dextrose 50% Inj) 0 ml IV STAT PRN; Protocol PRN Reason: Hypoglycemia Protocol Last Admin: 06/21/18 16:15 Dose: 50 ml Dextrose (Glutose 15) 15 gm PO ONCE PRN; Protocol PRN Reason: Hypoglycemia Protocol Famotidine (Pepcid) 20 mg GT BID [facility] Last Admin: 07/08/18 10:42 Dose: 20 mg Glucagon (Glucagen Diagnostic Kit) 1 mg IM STAT PRN; Protocol PRN Reason: Hypoglycemia Protocol Ibuprofen (Motrin Oral Susp) 200 mg PO Q6H PRN PRN Reason: Fever >100.4 F Last Admin: 07/06/18 21:19 Dose: 200 mg Insulin Aspart (Novolog) 0 unit SC [facility]; Protocol Last Admin: 07/08/18 11:43 Dose: 2 units Insulin Glargine (Lantus) 40 unit SC [facility] Last Admin: 06/25/18 22:02 Dose: Not Given Insulin Human Isoph/Insulin Regular (Novolin 70/30 (70/30 Units/Ml) 10 Ml) 15 units SC BID [facility] Last Admin: 06/26/18 09:27 Dose: 15 units Lorazepam (Ativan) 0.5 mg IVP Q8H PRN PRN Reason: Anxiety Last Admin: 07/07/18 18:04 Dose: 0.5 mg Metoprolol Tartrate (Lopressor) 75 mg PO BID [facility] Last Admin: 07/08/18 10:42 Dose: 75 mg Polyethylene Glycol (Miralax) 17 gm GT BID [facility] Last Admin: 07/08/18 10:42 Dose: 17 gm Potassium Chloride (Potassium Chloride Oral Soln) 20 meq PO DAILY [facility] Last Admin: 07/08/18 10:45 Dose: 20 meq Rosuvastatin Calcium (Crestor) 5 mg PO [facility] Last Admin: 07/07/18 22:44 Dose: 5 mg Senna/Docusate Sodium (Senokot S 50 Mg-8.6 Mg) 1 tab PO BID [facility] Last Admin: 07/08/18 10:43 Dose: 1 tab Vitamin A (Vitamin A & D Oint Ud Foilpak) 1 ea TOP BID PRN PRN Reason: Dry skin Last Admin: 06/13/18 10:47 Dose: 1 ea Physical Exam - Constitutional Appears: Well, Non-toxic - Head Exam Head Exam: ATRAUMATIC, NORMAL INSPECTION - Eye Exam Eye Exam: EOMI, Normal appearance - ENT Exam ENT Exam: Mucous Membranes Moist, Normal Exam - Respiratory Exam Respiratory Exam: Clear to Auscultation Bilateral, NORMAL BREATHING PATTERN - Cardiovascular Exam Cardiovascular Exam: REGULAR RHYTHM, +S1, +S2 - GI/Abdominal Exam GI & Abdominal Exam: Normal Bowel Sounds, Soft. absent: Tenderness Additional comments: G-tube in place. - Neurological Exam Neurological exam: Alert, Altered - Psychiatric Exam Psychiatric exam: Anxious, Flat Affect - Skin Skin Exam: Dry, Normal Color Results - Vital Signs Recent Vital Signs: Last Vital Signs Temp 98.1 F 07/08/18 00:00 Pulse 85 07/08/18 00:00 Resp 20 07/08/18 00:00 BP 152/82 H 07/08/18 10:42 Pulse Ox 100 07/08/18 00:00 - Labs Result Diagrams: 07/08/18 11:51 07/08/18 11:51 Labs: Laboratory Results - last 24 hr 07/07/18 07/07/18 07/08/18 16:40 21:34 07:11 WBC RBC Hgb Hct MCV MCH MCHC RDW Plt Count MPV Neut % (Auto) Lymph % (Auto) Kern % (Auto) Eos % (Auto) Baso % (Auto) Neut # (Auto) Lymph # (Auto) Kern # (Auto) Eos # (Auto) Baso # (Auto) Sodium Potassium Chloride Carbon Dioxide Anion Gap BUN Creatinine Est GFR ( Amer) Est GFR (Non-Af Amer) POC Glucose (mg/dL) 183 H 154 H 214 H Random Glucose Calcium Phosphorus Magnesium Total Bilirubin AST ALT Alkaline Phosphatase Total Protein Albumin Globulin Albumin/Globulin Ratio 07/08/18 07/08/18 07/08/18 11:12 11:51 11:51 WBC 5.8 RBC 3.86 Hgb 11.1 Hct 32.4 L MCV 84.0 MCH 28.8 MCHC 34.3 RDW 16.2 H Plt Count 367 MPV 10.1 Neut % (Auto) 69.9 Lymph % (Auto) 20.4 Kern % (Auto) 6.1 Eos % (Auto) 2.6 Baso % (Auto) 1.0 Neut # (Auto) 4.1 Lymph # (Auto) 1.2 Kern # (Auto) 0.4 Eos # (Auto) 0.2 Baso # (Auto) 0.1 Sodium 134 Potassium 3.3 L Chloride 102 Carbon Dioxide 22 Anion Gap 14 BUN 3 L Creatinine 0.4 L Est GFR ( Amer) > 60 Est GFR (Non-Af Amer) > 60 POC Glucose (mg/dL) 185 H Random Glucose 183 H Calcium 8.9 Phosphorus 3.5 Magnesium 1.6 Total Bilirubin 0.3 AST 35 ALT 23 Alkaline Phosphatase 102 Total Protein 6.6 Albumin 3.7 Globulin 2.9 Albumin/Globulin Ratio 1.2 Assessment & Plan - Assessment and Plan (Free Text) Assessment: #Anoxic brain injury #Dysphagia/vomiting #G-tube, trach #T2DM, HTN PLAN: -Etiology could be neurogenic (stroke or gastroparesis), infectious (candidiasis) -Raising the patient's bed during tube feedings and discontinuing tube feeds while sleeping/supine may help prevent further episodes of vomiting. -Blood glucose goal less than 200 to promote GI motility -Empiric temporary prokinetic medications may be beneficial -No emergent need for EGD at this time as it would not likely resolve her underlying condition. Case discussed with Dr. Hilton, see attestation. - Date & Time Date: 07/08/18 Time: 16:19 <Bonilla Hilton Y - Last Filed: 07/08/18 18:03> Meds - Medications Medications: Current Medications Albuterol/Ipratropium (Duoneb 3 Mg/0.5 Mg (3 Ml) Ud) 3 ml INH RQ4 [facility] Last Admin: 07/08/18 15:35 Dose: 3 ml Amlodipine Besylate (Norvasc) 10 mg PO DAILY [facility] Last Admin: 07/08/18 10:44 Dose: 10 mg Aspirin (Aspirin Chewable) 81 mg PO DAILY [facility] Last Admin: 07/08/18 10:43 Dose: 81 mg Clopidogrel Bisulfate (Plavix) 75 mg PO DAILY [facility] Last Admin: 05/22/18 10:07 Dose: 75 mg Dextrose (Dextrose 50% Inj) 0 ml IV STAT PRN; Protocol PRN Reason: Hypoglycemia Protocol Last Admin: 06/21/18 16:15 Dose: 50 ml Dextrose (Glutose 15) 15 gm PO ONCE PRN; Protocol PRN Reason: Hypoglycemia Protocol Famotidine (Pepcid) 20 mg GT BID [facility] Last Admin: 07/08/18 17:42 Dose: 20 mg Glucagon (Glucagen Diagnostic Kit) 1 mg IM STAT PRN; Protocol PRN Reason: Hypoglycemia Protocol Ibuprofen (Motrin Oral Susp) 200 mg PO Q6H PRN PRN Reason: Fever >100.4 F Last Admin: 07/06/18 21:19 Dose: 200 mg Insulin Aspart (Novolog) 0 unit SC [facility]; Protocol Last Admin: 07/08/18 17:43 Dose: Not Given Insulin Glargine (Lantus) 40 unit SC [facility] Last Admin: 06/25/18 22:02 Dose: Not Given Insulin Human Isoph/Insulin Regular (Novolin 70/30 (70/30 Units/Ml) 10 Ml) 15 units SC BID [facility] Last Admin: 06/26/18 09:27 Dose: 15 units Lorazepam (Ativan) 0.5 mg IVP Q8H PRN PRN Reason: Anxiety Last Admin: 07/07/18 18:04 Dose: 0.5 mg Metoprolol Tartrate (Lopressor) 75 mg PO BID [facility] Last Admin: 07/08/18 17:42 Dose: 75 mg Polyethylene Glycol (Miralax) 17 gm GT BID [facility] Last Admin: 07/08/18 17:48 Dose: Not Given Potassium Chloride (Potassium Chloride Oral Soln) 20 meq PO DAILY [facility] Last Admin: 07/08/18 10:45 Dose: 20 meq Rosuvastatin Calcium (Crestor) 5 mg PO HS [facility] Last Admin: 07/07/18 22:44 Dose: 5 mg Senna/Docusate Sodium (Senokot S 50 Mg-8.6 Mg) 1 tab PO BID [facility] Last Admin: 07/08/18 17:48 Dose: Not Given Vitamin A (Vitamin A & D Oint Ud Foilpak) 1 ea TOP BID PRN PRN Reason: Dry skin Last Admin: 06/13/18 10:47 Dose: 1 ea Results - Vital Signs Recent Vital Signs: Last Vital Signs Temp 98.1 F 07/08/18 16:00 Pulse 88 07/08/18 16:00 Resp 20 07/08/18 16:00 BP 158/80 H 07/08/18 17:42 Pulse Ox 99 07/08/18 16:00 - Labs Result Diagrams: 07/08/18 11:51 07/08/18 11:51 Labs: Laboratory Results - last 24 hr 07/07/18 07/07/18 07/08/18 16:40 21:34 07:11 WBC RBC Hgb Hct MCV MCH MCHC RDW Plt Count MPV Neut % (Auto) Lymph % (Auto) Kern % (Auto) Eos % (Auto) Baso % (Auto) Neut # (Auto) Lymph # (Auto) Kern # (Auto) Eos # (Auto) Baso # (Auto) Sodium Potassium Chloride Carbon Dioxide Anion Gap BUN Creatinine Est GFR ( Amer) Est GFR (Non-Af Amer) POC Glucose (mg/dL) 183 H 154 H 214 H Random Glucose Calcium Phosphorus Magnesium Total Bilirubin AST ALT Alkaline Phosphatase Total Protein Albumin Globulin Albumin/Globulin Ratio 07/08/18 07/08/18 07/08/18 11:12 11:51 11:51 WBC 5.8 RBC 3.86 Hgb 11.1 Hct 32.4 L MCV 84.0 MCH 28.8 MCHC 34.3 RDW 16.2 H Plt Count 367 MPV 10.1 Neut % (Auto) 69.9 Lymph % (Auto) 20.4 Kern % (Auto) 6.1 Eos % (Auto) 2.6 Baso % (Auto) 1.0 Neut # (Auto) 4.1 Lymph # (Auto) 1.2 Kern # (Auto) 0.4 Eos # (Auto) 0.2 Baso # (Auto) 0.1 Sodium 134 Potassium 3.3 L Chloride 102 Carbon Dioxide 22 Anion Gap 14 BUN 3 L Creatinine 0.4 L Est GFR ( Amer) > 60 Est GFR (Non-Af Amer) > 60 POC Glucose (mg/dL) 185 H Random Glucose 183 H Calcium 8.9 Phosphorus 3.5 Magnesium 1.6 Total Bilirubin 0.3 AST 35 ALT 23 Alkaline Phosphatase 102 Total Protein 6.6 Albumin 3.7 Globulin 2.9 Albumin/Globulin Ratio 1.2 07/08/18 16:09 WBC RBC Hgb Hct MCV MCH MCHC RDW Plt Count MPV Neut % (Auto) Lymph % (Auto) Kern % (Auto) Eos % (Auto) Baso % (Auto) Neut # (Auto) Lymph # (Auto) Kern # (Auto) Eos # (Auto) Baso # (Auto) Sodium Potassium Chloride Carbon Dioxide Anion Gap BUN Creatinine Est GFR ( Amer) Est GFR (Non-Af Amer) POC Glucose (mg/dL) 190 H Random Glucose Calcium Phosphorus Magnesium Total Bilirubin AST ALT Alkaline Phosphatase Total Protein Albumin Globulin Albumin/Globulin Ratio Attending/Attestation - Attestation I have personally seen and examined this patient.: Yes I have fully participated in the care of the patient.: Yes I have reviewed all pertinent clinical information: Yes Notes (Text): 07/08/18 17:56 I have seen and examined patient with GI fellow. Agree with above documentation with the following additions. In brief, this is a 52 year old female who originally presented to hospital nearly 2 months ago with anoxic brain injury, CVA, s/p trach and surgical gastrostomy tube placement. She has been receiving intermittent PO pleasure feeding and experienced one episode of vomiting, GI called for further evaluation. Patient is not able to participate with meaningful conversation, additional information obtained via chart review, discussion with nursing staff and family members at bedside. There is no reported nausea, fever/chills, weight loss, rectal bleeding. There was recent constipation which has been successfully treated with miralax and senakot. Unclear regarding prior endoscopic evaluation. Additional physical examination: Abdomen: no palpable hepato/splenomegaly CVA, anoxic brain injury s/p tracheostomy and surgical gastrostomy DM / HTN Vomiting - RN BARIATRIC evaluation noted, follow up recommendation - From GI perspective ok to resume tube feeding, suggest doing so when patient is upright using strict aspiration precautions - Anti-emetic therapy PRN - Continue with h2 bartolo therapy - Optimize blood glucose control, may consider dose of erythromycin pro-motility therapy x 3 days - If symptoms persist, could also consider empiric anti-fungal therapy for potential candidiasis - No planned GI intervention at this time, no features of clinical malnutrition. Will sign off case, please reconsult as necessary, thank you.
[2018-07-09] MEDS: Albuterol-Ipratrop 3 mg / 0.5 (3 ml) UD INH SCH ×6 (00:10→19:24)
[2018-07-09 07:44] LABS: BASO # 0.1 K/uL (0.0-0.2); BASO % 1.1 % (0.0-2.0); EOS % 0.8 % (0.0-4.0); HEMOGLOBIN 10.4 g/dL (11.0-16.0); LYMPH # 0.7 K/uL (1.0-4.3); MEAN CELL VOLUME 84.4 fL (81.0-99.0); MEAN CORPUSCULAR HEMOGLOBIN 28.4 pg (27.0-31.0); MEAN CORPUSCULAR HGB CONC 33.7 g/dL (33.0-37.0); MEAN PLATELET VOLUME 9.3 fL (7.2-11.7); MONO # 0.4 K/uL (0.0-0.8); MONO % 7.3 % (0.0-10.0); NEUT # 4.4 K/uL (1.8-7.0); NEUT % 78.8 % (50.0-75.0); RBC 3.65 Mil/uL (3.80-5.20); RED CELL DISTRIBUTION WIDTH 16.1 % (11.5-14.5); WHITE BLOOD COUNT 5.5 K/uL (4.8-10.8)
--- NOTE | 2018-07-09 07:48 | CP.PCM.PN ---
<Montez Miles - Last Filed: 07/09/18 13:22> Subjective - Date & Time of Evaluation Date of Evaluation: 07/09/18 Time of Evaluation: 07:45 - Subjective Subjective: PGY-1 Medicine Progress Note for Dr. Negrete Patient seen and examined at bedside. Seen working aggressively with PT/OT/speech therapy this morning. Doing well today, active participant, more alert. No new episodes of vomiting overnight, will restart tube feeds. Spoke to dietitian about trial bolus feeds, switching formula to glucerna for more calories in less volume. Objective - Vital Signs/Intake and Output Vital Signs (last 24 hours): Temp Pulse Resp BP Pulse Ox 97.8 F 68 20 152/78 H 97 07/09/18 00:00 07/09/18 00:00 07/09/18 00:00 07/09/18 00:00 07/09/18 00:00 Intake and Output: 07/09/18 07/09/18 06:59 18:59 Intake Total 560 Output Total 300 Balance 260 - Medications Medications: Current Medications Albuterol/Ipratropium (Duoneb 3 Mg/0.5 Mg (3 Ml) Ud) 3 ml INH RQ4 [facility] Last Admin: 07/09/18 04:35 Dose: 3 ml Amlodipine Besylate (Norvasc) 10 mg PO DAILY [facility] Last Admin: 07/08/18 10:44 Dose: 10 mg Aspirin (Aspirin Chewable) 81 mg PO DAILY [facility] Last Admin: 07/08/18 10:43 Dose: 81 mg Clopidogrel Bisulfate (Plavix) 75 mg PO DAILY [facility] Last Admin: 05/22/18 10:07 Dose: 75 mg Dextrose (Dextrose 50% Inj) 0 ml IV STAT PRN; Protocol PRN Reason: Hypoglycemia Protocol Last Admin: 06/21/18 16:15 Dose: 50 ml Dextrose (Glutose 15) 15 gm PO ONCE PRN; Protocol PRN Reason: Hypoglycemia Protocol Famotidine (Pepcid) 20 mg GT BID [facility] Last Admin: 07/08/18 17:42 Dose: 20 mg Glucagon (Glucagen Diagnostic Kit) 1 mg IM STAT PRN; Protocol PRN Reason: Hypoglycemia Protocol Ibuprofen (Motrin Oral Susp) 200 mg PO Q6H PRN PRN Reason: Fever >100.4 F Last Admin: 07/06/18 21:19 Dose: 200 mg Insulin Aspart (Novolog) 0 unit SC [facility]; Protocol Last Admin: 07/08/18 22:04 Dose: Not Given Insulin Glargine (Lantus) 40 unit SC [facility] Last Admin: 06/25/18 22:02 Dose: Not Given Insulin Human Isoph/Insulin Regular (Novolin 70/30 (70/30 Units/Ml) 10 Ml) 15 units SC BID [facility] Last Admin: 06/26/18 09:27 Dose: 15 units Lorazepam (Ativan) 0.5 mg IVP Q8H PRN PRN Reason: Anxiety Last Admin: 07/07/18 18:04 Dose: 0.5 mg Metoprolol Tartrate (Lopressor) 75 mg PO BID [facility] Last Admin: 07/08/18 17:42 Dose: 75 mg Polyethylene Glycol (Miralax) 17 gm GT BID [facility] Last Admin: 07/08/18 17:48 Dose: Not Given Potassium Chloride (Potassium Chloride Oral Soln) 20 meq PO DAILY [facility] Last Admin: 07/08/18 10:45 Dose: 20 meq Rosuvastatin Calcium (Crestor) 5 mg PO [facility] Last Admin: 07/08/18 22:04 Dose: 5 mg Senna/Docusate Sodium (Senokot S 50 Mg-8.6 Mg) 1 tab PO BID [facility] Last Admin: 07/08/18 17:48 Dose: Not Given Vitamin A (Vitamin A & D Oint Ud Foilpak) 1 ea TOP BID PRN PRN Reason: Dry skin Last Admin: 06/13/18 10:47 Dose: 1 ea - Labs Labs: 07/08/18 11:51 07/08/18 11:51 PT 16.8 SECONDS (9.7-12.2) H 05/28/18 07:15 INR 1.5 05/28/18 07:15 APTT 34 SECONDS (21-34) 05/28/18 07:15 - Constitutional Appears: Non-toxic, No Acute Distress, Chronically Ill - Head Exam Head Exam: ATRAUMATIC, NORMAL INSPECTION, NORMOCEPHALIC - Eye Exam Eye Exam: EOMI, Normal appearance Pupil Exam: NORMAL ACCOMODATION - ENT Exam ENT Exam: Mucous Membranes Moist, Normal Exam - Neck Exam Neck Exam: Full ROM, Normal Inspection Additional comments: trach collar in place - Respiratory Exam Respiratory Exam: Clear to Ausculation Bilateral, NORMAL BREATHING PATTERN. absent: Accessory Muscle Use, Rales, Rhonchi, Wheezes, Respiratory Distress, St ridor - Cardiovascular Exam Cardiovascular Exam: REGULAR RHYTHM, +S1, +S2 - GI/Abdominal Exam GI & Abdominal Exam: Soft, Normal Bowel Sounds. absent: Distended, Firm, Guarding, Rigid, Tenderness, Rebound Additional comments: tube feed, abdominal binder in place - Extremities Exam Extremities Exam: Normal Capillary Refill. absent: Calf Tenderness, Pedal Edema Additional comments: contracted extremities - Neurological Exam Neurological Exam: Alert, Awake - Skin Skin Exam: Dry, Intact, Normal Color, Warm Assessment and Plan - Assessment and Plan (Free Text) Assessment: 52 yo F with PMHx of DM type II visiting from the [place] reported to be found unresponsive by on 05/01. Patient intubated on field, brought to ED where CODE STROKE was called. Admitted to ICU for evaluation/monitoring of anoxic brain injury. Patient noted on exam to have ring monge suggestive of attempted suicidal attempt by hanging. [employer] made aware of case and confirm high likelihood of suicide attempt. Patient s/p tracheostomy and PED tube feeding. Patient weaned off ventilator to trach collar with humidified oxygen. Downgraded to telemetry for further monitoring. Remains on trach collar, tube feeds at this time with further evaluation. Working aggressively with PT/OT/speech therapy, making significant progress and beginning to verbalize small syllable words. Plan: Anoxic Brain Injury- improving clinically - Aspiration precautions - Seizure precautions - Neurology on case, Dr. Duff/Guilherme - Turn and reposition q2h -16 fr colindres cath in proper placement for tube feeds -feeds resumed at 20cc/hr -fenestrated trach collar -at bedside, to be switched out by Dr. Brennan -continue to wean off O2 -patient making progress, verbalizing 1-2 syllable words before fatigued -Aggressive PT/OT/ST -tube feeds; glucerna, bolus feeds Intermittent vomiting -GI recs (Dr. Hilton) appreciated -ok to resume feeds, suggest doing so when patient is upright using strict aspiration precautions -Anti-emetic therapy PRN -Continue with h2 bartolo therapy -If symptoms persist, could also consider empiric anti-fungal therapy for potential candidiasis -No planned GI intervention at this time, no features of clinical malnutrition Acute Renal Injury with oliguria- improving - Likely due to dehydration - No HD needed - Nephrology recs (Dr. 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 -Na level wnl, continue to monitor -correct as needed Hypertension- chronic, stable - No pressors (was previously hypotensive) - Norvasc 10 mg PO daily Respiratory Failure resolved - Due to Asphyxiation - Laryngoscopy (06/18): vocal cords functional - s/p tracheotomy - Consider removal of trach collar - Mucomyst Q4H d/c'd (06/21) - Duonebs Q4H - Suction prn - Humidified O2, continue to wean as tolerated Fevers resolved - Afebrile since 06/04, currently off Abx - Ice packs, cooling blanket - Sputum cultures (05/25): yeast - s/p meropenum 1g Q8H & flagyl 500mg Q8H (total 13 days of treatment) - Motrin 200 mg Q6H PRN NSTEMI resolved - Elevated troponin- has normalized - ASA 81 mg PO daily (restarted 05/25) - Plavix 75mg PO daily (held - given drop in Hb) - Crestor 5 mg PO QHS - Cardiology consulted (Dr Gay) Leukocytosis resolved - Repeat CXR (05/21): slightly low lung volumes with mild crowded bronchovascular markings and minor bibasilar atelectasis - BCx (05/02): no growth - Repeat BCx (05/17): no growth - UA: leuk est 3+, +WBC, +RBC, nitrate - - UCx 05/06/18: no growth -repeat UCx (05/13, 05/17): yeast species - Tracheal Aspirate Cx 05/08/18: yeast - Colindres changed 05/17 - Doppler b/l UE and LE: negative for DVTs Hyperkalemia resolved - Continue to monitor, correct as needed Constipation, resolved - reported BM 06/28 - Senokot BID - Dulcolax 10 mg [place] TID PRN - Lactulose 20 mg PO daily PRN - PEG 17gm GT bid - Flat Plate Abd (06/26): normal bowel gas pattern PPx, Diet, Disposition - DVT ppx: Heparin 5,000 Units SC Q8H - GI ppx: Pepcid 20mg GT bid - Diet: Tube feed, Vital 1.2, honey thick liquids (pleasure feeds only, per swallow eval) - Vitamin A&D - Code status: full code Case discussed with Dr. Caden iMles DO, PGY-1 <Emmett Negrete - Last Filed: 07/10/18 21:16> Objective - Vital Signs/Intake and Output Vital Signs (last 24 hours): Temp Pulse Resp BP Pulse Ox 99.6 F 78 20 156/74 H 99 07/10/18 17:09 07/10/18 17:09 07/10/18 17:09 07/10/18 17:57 07/10/18 17:09 Intake and Output: 07/10/18 07/11/18 18:59 06:59 Intake Total 2031 Output Total 850 Balance 1181 - Medications Medications: Current Medications Albuterol/Ipratropium (Duoneb 3 Mg/0.5 Mg (3 Ml) Ud) 3 ml INH RQ4 [facility] Last Admin: 07/10/18 19:20 Dose: 3 ml Amlodipine Besylate (Norvasc) 10 mg PO DAILY [facility] Last Admin: 07/10/18 09:21 Dose: 10 mg Aspirin (Aspirin Chewable) 81 mg PO DAILY [facility] Last Admin: 07/10/18 09:21 Dose: 81 mg Clopidogrel Bisulfate (Plavix) 75 mg PO DAILY [facility] Last Admin: 05/22/18 10:07 Dose: 75 mg Dextrose (Dextrose 50% Inj) 0 ml IV STAT PRN; Protocol PRN Reason: Hypoglycemia Protocol Last Admin: 06/21/18 16:15 Dose: 50 ml Dextrose (Glutose 15) 15 gm PO ONCE PRN; Protocol PRN Reason: Hypoglycemia Protocol Famotidine (Pepcid) 20 mg GT BID [facility] Last Admin: 07/10/18 17:57 Dose: 20 mg Glucagon (Glucagen Diagnostic Kit) 1 mg IM STAT PRN; Protocol PRN Reason: Hypoglycemia Protocol Ibuprofen (Motrin Oral Susp) 200 mg PO Q6H PRN PRN Reason: Fever >100.4 F Last Admin: 07/06/18 21:19 Dose: 200 mg Insulin Aspart (Novolog) 0 unit SC [facility]; Protocol Last Admin: 07/10/18 11:31 Dose: 2 units Insulin Glargine (Lantus) 40 unit SC [facility] Last Admin: 06/25/18 22:02 Dose: Not Given Insulin Human Isoph/Insulin Regular (Novolin 70/30 (70/30 Units/Ml) 10 Ml) 15 units SC BID [facility] Last Admin: 06/26/18 09:27 Dose: 15 units Lorazepam (Ativan) 0.5 mg IVP Q8H PRN PRN Reason: Anxiety Last Admin: 07/07/18 18:04 Dose: 0.5 mg Metoprolol Tartrate (Lopressor) 75 mg PO BID [facility] Last Admin: 07/10/18 17:57 Dose: 75 mg Polyethylene Glycol (Miralax) 17 gm GT BID [facility] Last Admin: 07/10/18 17:58 Dose: 17 gm Potassium Chloride (Potassium Chloride Oral Soln) 20 meq PO DAILY [facility] Last Admin: 07/10/18 09:22 Dose: 20 meq Rosuvastatin Calcium (Crestor) 5 mg PO HS [facility] Last Admin: 07/09/18 21:01 Dose: 5 mg Senna/Docusate Sodium (Senokot S 50 Mg-8.6 Mg) 1 tab PO BID [facility] Last Admin: 07/10/18 17:58 Dose: 1 tab Vitamin A (Vitamin A & D Oint Ud Foilpak) 1 ea TOP BID PRN PRN Reason: Dry skin Last Admin: 06/13/18 10:47 Dose: 1 ea - Labs Labs: 07/10/18 08:55 07/10/18 08:55 PT 16.8 SECONDS (9.7-12.2) H 05/28/18 07:15 INR 1.5 05/28/18 07:15 APTT 34 SECONDS (21-34) 05/28/18 07:15 Attending/Attestation - Attestation I have personally seen and examined this patient.: Yes I have fully participated in the care of the patient.: Yes I have reviewed all pertinent clinical information, including history, physical exam and plan: Yes Notes (Text): working aggressively with PT/OT/speech therapy this morning. spoke to activities counselor seen and examined
[2018-07-09 08:01] LABS: ALB/GLOB RATIO 1.1 (1.0-2.1); ALBUMIN 3.2 g/dL (3.5-5.0); ALT/SGPT 26 U/L (9-52); AST/SGOT 24 U/L (14-36); BLOOD UREA NITROGEN 3 mg/dL (7-17); CALCIUM 8.5 mg/dl (8.6-10.4); GFR NON-AFRICAN AMERICAN > 60
[2018-07-09] MEDS: (Novolog) Insulin Aspart, Recombinant 100 u/ml 10 ml vial SC SCH ×4 (08:15→21:42)
[2018-07-09] MEDS: Docusate-Senna 50 mg-8.6 mg Tab PO SCH ×2 (10:43→21:42)
[2018-07-09] MEDS: Potassium Chloride 20 mEq/15 ml LIQ UD PO SCH (10:43)
[2018-07-09] MEDS: POLYETHYLENE GLYCOL 3350 17 GM/Dose PACKET GT SCH ×2 (10:44→21:40)
--- NOTE | 2018-07-10 00:35 | CP.PCM.PN ---
<Eren Hernandez - Last Filed: 07/10/18 00:32> Subjective - Date & Time of Evaluation Date of Evaluation: 07/10/18 Time of Evaluation: 00:32 - Subjective Subjective: PGY-1 Medicine Progress Note for Dr. Negrete Patient seen and examined at bedside. Patient resting comfortably in bed. Patient worked with PT/OT yesterday. No changes in clinical status. Continue aggressive PT/OT. Objective - Vital Signs/Intake and Output Vital Signs (last 24 hours): Temp Pulse Resp BP Pulse Ox 98.3 F 72 20 125/66 100 07/10/18 00:00 07/10/18 00:00 07/10/18 00:00 07/10/18 00:00 07/10/18 00:00 Intake and Output: 07/09/18 07/10/18 18:59 06:59 Intake Total 560 500 Output Total 300 200 Balance 260 300 - Medications Medications: Current Medications Albuterol/Ipratropium (Duoneb 3 Mg/0.5 Mg (3 Ml) Ud) 3 ml INH RQ4 [facility] Last Admin: 07/09/18 19:24 Dose: 3 ml Amlodipine Besylate (Norvasc) 10 mg PO DAILY [facility] Last Admin: 07/09/18 10:42 Dose: 10 mg Aspirin (Aspirin Chewable) 81 mg PO DAILY [facility] Last Admin: 07/09/18 10:42 Dose: 81 mg Clopidogrel Bisulfate (Plavix) 75 mg PO DAILY [facility] Last Admin: 05/22/18 10:07 Dose: 75 mg Dextrose (Dextrose 50% Inj) 0 ml IV STAT PRN; Protocol PRN Reason: Hypoglycemia Protocol Last Admin: 06/21/18 16:15 Dose: 50 ml Dextrose (Glutose 15) 15 gm PO ONCE PRN; Protocol PRN Reason: Hypoglycemia Protocol Famotidine (Pepcid) 20 mg GT BID [facility] Last Admin: 07/09/18 21:42 Dose: 20 mg Glucagon (Glucagen Diagnostic Kit) 1 mg IM STAT PRN; Protocol PRN Reason: Hypoglycemia Protocol Ibuprofen (Motrin Oral Susp) 200 mg PO Q6H PRN PRN Reason: Fever >100.4 F Last Admin: 07/06/18 21:19 Dose: 200 mg Insulin Aspart (Novolog) 0 unit SC [facility]; Protocol Last Admin: 07/09/18 21:42 Dose: Not Given Insulin Glargine (Lantus) 40 unit SC [facility] Last Admin: 06/25/18 22:02 Dose: Not Given Insulin Human Isoph/Insulin Regular (Novolin 70/30 (70/30 Units/Ml) 10 Ml) 15 units SC BID [facility] Last Admin: 06/26/18 09:27 Dose: 15 units Lorazepam (Ativan) 0.5 mg IVP Q8H PRN PRN Reason: Anxiety Last Admin: 07/07/18 18:04 Dose: 0.5 mg Metoprolol Tartrate (Lopressor) 75 mg PO BID [facility] Last Admin: 07/09/18 21:40 Dose: 75 mg Polyethylene Glycol (Miralax) 17 gm GT BID [facility] Last Admin: 07/09/18 21:40 Dose: 17 gm Potassium Chloride (Potassium Chloride Oral Soln) 20 meq PO DAILY [facility] Last Admin: 07/09/18 10:43 Dose: 20 meq Rosuvastatin Calcium (Crestor) 5 mg PO [facility] Last Admin: 07/09/18 21:01 Dose: 5 mg Senna/Docusate Sodium (Senokot S 50 Mg-8.6 Mg) 1 tab PO BID [facility] Last Admin: 07/09/18 21:42 Dose: 1 tab Vitamin A (Vitamin A & D Oint Ud Foilpak) 1 ea TOP BID PRN PRN Reason: Dry skin Last Admin: 06/13/18 10:47 Dose: 1 ea - Labs Labs: 07/09/18 07:38 07/09/18 07:38 PT 16.8 SECONDS (9.7-12.2) H 05/28/18 07:15 INR 1.5 05/28/18 07:15 APTT 34 SECONDS (21-34) 05/28/18 07:15 - Constitutional Appears: Non-toxic, No Acute Distress, Chronically Ill - Head Exam Head Exam: ATRAUMATIC, NORMAL INSPECTION - Eye Exam Eye Exam: EOMI, Normal appearance - ENT Exam ENT Exam: Mucous Membranes Moist - Neck Exam Additional comments: trach collar - Respiratory Exam Respiratory Exam: Clear to Ausculation Bilateral, NORMAL BREATHING PATTERN. absent: Rhonchi, Wheezes - Cardiovascular Exam Cardiovascular Exam: REGULAR RHYTHM, +S1, +S2 - GI/Abdominal Exam GI & Abdominal Exam: Soft, Normal Bowel Sounds. absent: Tenderness Additional comments: tube feed, abdominal binder in place - Extremities Exam Extremities Exam: absent: Pedal Edema Additional comments: contracted extremities - Neurological Exam Neurological Exam: Alert, Awake - Skin Skin Exam: Dry, Intact Assessment and Plan - Assessment and Plan (Free Text) Assessment: 52 yo F with PMHx of DM type II visiting from [place] [facility] [place] reported to be found unresponsive by on 05/01. Patient intubated on field, brought to ED where CODE STROKE was called. Admitted to ICU for evaluation/monitoring of anoxic brain injury. Patient noted on exam to have ring monge suggestive of attempted suicidal attempt by hanging. [employer] made aware of case and confirm high likelihood of suicide attempt. Patient s/p tracheostomy and PED tube feeding. Patient weaned off ventilator to trach collar with humidified oxygen. Downgraded to telemetry for further monitoring. Remains on trach collar, tube feeds at this time with further evaluation. Working aggres sively with PT/OT/speech therapy, making significant progress and beginning to verbalize small syllable words. Plan: Anoxic Brain Injury- improving clinically - Aspiration precautions - Seizure precautions - Neurology on case, Dr. Duff/Guilherme - Turn and reposition q2h -16 fr colindres cath in proper placement for tube feeds -feeds resumed at 20cc/hr -fenestrated trach collar -at bedside, to be switched out by Dr. Brennan -continue to wean off O2 -patient making progress, verbalizing 1-2 syllable words before fatigued -Aggressive PT/OT/ST -tube feeds; glucerna, bolus feeds Intermittent vomiting -GI recs (Dr. iHlton) appreciated -ok to resume feeds, suggest doing so when patient is upright using strict aspiration precautions -Anti-emetic therapy PRN -Continue with h2 bartolo therapy -If symptoms persist, could also consider empiric anti-fungal therapy for potential candidiasis -No planned GI intervention at this time, no features of clinical malnutrition Acute Renal Injury with oliguria- improving - Likely due to dehydration - No HD needed - Nephrology recs (Dr. 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 -Na level wnl, continue to monitor -correct as needed Hypertension- chronic, stable - No pressors (was previously hypotensive) - Norvasc 10 mg PO daily Respiratory Failure resolved - Due to Asphyxiation - Laryngoscopy (06/18): vocal cords functional - s/p tracheotomy - Consider removal of trach collar - Mucomyst Q4H d/c'd (06/21) - Duonebs Q4H - Suction prn - Humidified O2, continue to wean as tolerated Fevers resolved - Afebrile since 06/04, currently off Abx - Ice packs, cooling blanket - Sputum cultures (05/25): yeast - s/p meropenum 1g Q8H & flagyl 500mg Q8H (total 13 days of treatment) - Motrin 200 mg Q6H PRN NSTEMI resolved - Elevated troponin- has normalized - ASA 81 mg PO daily (restarted 05/25) - Plavix 75mg PO daily (held - given drop in Hb) - Crestor 5 mg PO QHS - Cardiology consulted (Dr Gay) Leukocytosis resolved - Repeat CXR (05/21): slightly low lung volumes with mild crowded bronchovascular markings and minor bibasilar atelectasis - BCx (05/02): no growth - Repeat BCx (05/17): no growth - UA: leuk est 3+, +WBC, +RBC, nitrate - - UCx 05/06/18: no growth -repeat UCx (05/13, 05/17): yeast species - Tracheal Aspirate Cx 05/08/18: yeast - Colindres changed 05/17 - Doppler b/l UE and LE: negative for DVTs Hyperkalemia resolved - Continue to monitor, correct as needed Constipation, resolved - reported BM 06/28 - Senokot BID - Dulcolax 10 mg [place] TID PRN - Lactulose 20 mg PO daily PRN - PEG 17gm GT bid - Flat Plate Abd (06/26): normal bowel gas pattern PPx, Diet, Disposition - DVT ppx: Heparin 5,000 Units SC Q8H - GI ppx: Pepcid 20mg GT bid - Diet: Tube feed, Vital 1.2, honey thick liquids (pleasure feeds only, per swallow eval) - Vitamin A&D - Code status: full code Case discussed with Dr. Caden Hernandez DO, PGY-1 <Emmett Negrete - Last Filed: 07/19/18 17:20> Objective - Vital Signs/Intake and Output Vital Signs (last 24 hours): Temp Pulse Resp BP Pulse Ox 99.1 F 92 H 20 150/70 96 07/19/18 08:01 07/19/18 08:01 07/19/18 08:01 07/19/18 09:53 07/19/18 08:01 Intake and Output: 07/19/18 07/19/18 06:59 18:59 Intake Total 650 380 Balance 650 380 - Medications Medications: Current Medications Acetaminophen (Tylenol 650mg/20.3ml Solution Ud) 650 mg GT Q6 PRN PRN Reason: Temperature, Fever >100.4 F Last Admin: 07/16/18 17:19 Dose: 650 mg Albuterol/Ipratropium (Duoneb 3 Mg/0.5 Mg (3 Ml) Ud) 3 ml INH RQ4 [facility] Last Admin: 07/19/18 11:38 Dose: Not Given Amlodipine Besylate (Norvasc) 10 mg PO DAILY [facility] Last Admin: 07/19/18 09:53 Dose: 10 mg Aspirin (Aspirin Chewable) 81 mg PO DAILY [facility] Last Admin: 07/19/18 09:53 Dose: 81 mg Dextrose (Dextrose 50% Inj) 0 ml IV STAT PRN; Protocol PRN Reason: Hypoglycemia Protocol Last Admin: 06/21/18 16:15 Dose: 50 ml Dextrose (Glutose 15) 15 gm PO ONCE PRN; Protocol PRN Reason: Hypoglycemia Protocol Famotidine (Pepcid) 20 mg GT BID [facility] Last Admin: 07/19/18 09:53 Dose: 20 mg Glucagon (Glucagen Diagnostic Kit) 1 mg IM STAT PRN; Protocol PRN Reason: Hypoglycemia Protocol Heparin Sodium (Porcine) (Heparin) 5,000 units SC Q12 [facility] Sodium Chloride (Sodium Chloride 0.45%) 1,000 mls @ 40 mls/hr IV .Q24H [facility] Last Admin: 07/18/18 14:51 Dose: 40 mls/hr Ciprofloxacin (Cipro 400mg/200ml Dsw) 400 mg in 200 mls @ 133 mls/hr IVPB Q12H [facility]; Protocol Last Admin: 07/19/18 13:44 Dose: 133 mls/hr Ibuprofen (Motrin Oral Susp) 200 mg PO Q6H PRN PRN Reason: Fever >100.4 F Last Admin: 07/14/18 09:40 Dose: 200 mg Insulin Aspart (Novolog) 0 unit SC [facility]; Protocol Last Admin: 07/19/18 12:08 Dose: Not Given Insulin Glargine (Lantus) 40 unit SC [facility] Last Admin: 07/18/18 23:04 Dose: Not Given Insulin Human Isoph/Insulin Regular (Novolin 70/30 (70/30 Units/Ml) 10 Ml) 15 units SC BID [facility] Last Admin: 06/26/18 09:27 Dose: 15 units Metoprolol Tartrate (Lopressor) 75 mg PO BID [facility] Last Admin: 07/19/18 09:53 Dose: 75 mg Ondansetron HCl (Zofran Inj) 4 mg IVP Q6H PRN PRN Reason: Nausea/Vomiting Last Admin: 07/17/18 22:31 Dose: 4 mg Polyethylene Glycol (Miralax) 17 gm GT BID [facility] Last Admin: 07/19/18 09:54 Dose: 17 gm Potassium Chloride (Potassium Chloride Oral Soln) 20 meq PO DAILY [facility] Last Admin: 07/19/18 09:54 Dose: 20 meq Rosuvastatin Calcium (Crestor) 5 mg PO [facility] Last Admin: 07/18/18 23:04 Dose: Not Given Senna/Docusate Sodium (Senokot S 50 Mg-8.6 Mg) 1 tab PO BID [facility] Last Admin: 07/10/18 17:58 Dose: 1 tab Vitamin A (Vitamin A & D Oint Ud Foilpak) 1 ea TOP BID PRN PRN Reason: Dry skin Last Admin: 06/13/18 10:47 Dose: 1 ea - Labs Labs: 07/19/18 13:34 07/19/18 13:34 PT 16.8 SECONDS (9.7-12.2) H 05/28/18 07:15 INR 1.5 05/28/18 07:15 APTT 34 SECONDS (21-34) 05/28/18 07:15 Attending/Attestation - Attestation I have personally seen and examined this patient.: Yes I have fully participated in the care of the patient.: Yes I have reviewed all pertinent clinical information, including history, physical exam and plan: Yes Notes (Text): seen and examined by me awake and start talking on trach collar continue tube feeding.oral thickened fluids as tolerated
[2018-07-10] MEDS: Albuterol-Ipratrop 3 mg / 0.5 (3 ml) UD INH SCH ×6 (05:00→19:20)
[2018-07-10] MEDS: (Novolog) Insulin Aspart, Recombinant 100 u/ml 10 ml vial SC SCH ×4 (08:31→21:50)
[2018-07-10 08:59] LABS: BASO % 0.6 % (0.0-2.0); EOS # 0.1 K/uL (0.0-0.7); HEMOGLOBIN 9.6 g/dL (11.0-16.0); LYMPH # 0.7 K/uL (1.0-4.3); LYMPH % 8.8 % (20.0-40.0); MEAN CELL VOLUME 84.6 fL (81.0-99.0); MEAN CORPUSCULAR HEMOGLOBIN 28.4 pg (27.0-31.0); MEAN CORPUSCULAR HGB CONC 33.6 g/dL (33.0-37.0); MEAN PLATELET VOLUME 9.4 fL (7.2-11.7); MONO # 0.4 K/uL (0.0-0.8); MONO % 5.6 % (0.0-10.0); NEUT # 6.3 K/uL (1.8-7.0); PLATELET COUNT 210 K/uL (130-400); RBC 3.38 Mil/uL (3.80-5.20); RED CELL DISTRIBUTION WIDTH 16.3 % (11.5-14.5); WHITE BLOOD COUNT 7.5 K/uL (4.8-10.8)
[2018-07-10] MEDS: Docusate-Senna 50 mg-8.6 mg Tab PO SCH ×2 (09:21→17:58)
[2018-07-10] MEDS: Potassium Chloride 20 mEq/15 ml LIQ UD PO SCH (09:22)
[2018-07-10 09:23] LABS: ALBUMIN 2.8 g/dL (3.5-5.0); ALT/SGPT 28 U/L (9-52); AST/SGOT 28 U/L (14-36); BLOOD UREA NITROGEN 11 mg/dL (7-17); CALCIUM 8.2 mg/dl (8.6-10.4); GFR NON-AFRICAN AMERICAN > 60
[2018-07-10] MEDS: POLYETHYLENE GLYCOL 3350 17 GM/Dose PACKET GT SCH ×2 (09:23→17:58)
[2018-07-10 09:53] LABS: ANISOCYTOSIS SLIGHT; BANDS 2 % (0-2); BASOPHIL 1 % (0-2); LARGE PLATELETS PRESENT; LYMPHOCYTE 8 % (20-40); MONOCYTE 6 % (0-10); NEUTROPHIL 83 % (50-75); PLATELET ESTIMATE NORMAL (NORMAL); TOTAL CELLS COUNTED 100
[2018-07-10 09:54] LABS: HYPOCHROMIC SLIGHT; POLYCHROMIC SLIGHT
[2018-07-11] MEDS: Albuterol-Ipratrop 3 mg / 0.5 (3 ml) UD INH SCH ×6 (00:29→19:44)
--- NOTE | 2018-07-11 00:53 | CP.PCM.PN ---
<Eren Hernandez - Last Filed: 07/11/18 00:56> Subjective - Date & Time of Evaluation Date of Evaluation: 07/11/18 Time of Evaluation: 00:56 - Subjective Subjective: PGY-[address] Negrete Patient seen and examined. She appears comfortable. No acute events. I spoke with family member at bedside who states patient is doing well. Paged by nursing staff as patient having copious loose stools. Sennakot held for now. Objective - Vital Signs/Intake and Output Vital Signs (last 24 hours): Temp Pulse Resp BP Pulse Ox 99.6 F 78 20 156/74 H 99 07/10/18 17:09 07/10/18 17:09 07/10/18 17:09 07/10/18 17:57 07/10/18 17:09 Intake and Output: 07/10/18 07/11/18 18:59 06:59 Intake Total 2031 910 Output Total 850 1100 Balance 1181 -190 - Medications Medications: Current Medications Albuterol/Ipratropium (Duoneb 3 Mg/0.5 Mg (3 Ml) Ud) 3 ml INH RQ4 [facility] Last Admin: 07/11/18 00:29 Dose: 3 ml Amlodipine Besylate (Norvasc) 10 mg PO DAILY [facility] Last Admin: 07/10/18 09:21 Dose: 10 mg Aspirin (Aspirin Chewable) 81 mg PO DAILY [facility] Last Admin: 07/10/18 09:21 Dose: 81 mg Clopidogrel Bisulfate (Plavix) 75 mg PO DAILY [facility] Last Admin: 05/22/18 10:07 Dose: 75 mg Dextrose (Dextrose 50% Inj) 0 ml IV STAT PRN; Protocol PRN Reason: Hypoglycemia Protocol Last Admin: 06/21/18 16:15 Dose: 50 ml Dextrose (Glutose 15) 15 gm PO ONCE PRN; Protocol PRN Reason: Hypoglycemia Protocol Famotidine (Pepcid) 20 mg GT BID [facility] Last Admin: 07/10/18 17:57 Dose: 20 mg Glucagon (Glucagen Diagnostic Kit) 1 mg IM STAT PRN; Protocol PRN Reason: Hypoglycemia Protocol Ibuprofen (Motrin Oral Susp) 200 mg PO Q6H PRN PRN Reason: Fever >100.4 F Last Admin: 07/06/18 21:19 Dose: 200 mg Insulin Aspart (Novolog) 0 unit SC [facility]; Protocol Last Admin: 07/10/18 21:50 Dose: Not Given Insulin Glargine (Lantus) 40 unit SC HS [facility] Last Admin: 06/25/18 22:02 Dose: Not Given Insulin Human Isoph/Insulin Regular (Novolin 70/30 (70/30 Units/Ml) 10 Ml) 15 units SC BID [facility] Last Admin: 06/26/18 09:27 Dose: 15 units Lorazepam (Ativan) 0.5 mg IVP Q8H PRN PRN Reason: Anxiety Last Admin: 07/07/18 18:04 Dose: 0.5 mg Metoprolol Tartrate (Lopressor) 75 mg PO BID [facility] Last Admin: 07/10/18 17:57 Dose: 75 mg Polyethylene Glycol (Miralax) 17 gm GT BID [facility] Last Admin: 07/10/18 17:58 Dose: 17 gm Potassium Chloride (Potassium Chloride Oral Soln) 20 meq PO DAILY [facility] Last Admin: 07/10/18 09:22 Dose: 20 meq Rosuvastatin Calcium (Crestor) 5 mg PO [facility] Last Admin: 07/10/18 21:32 Dose: 5 mg Senna/Docusate Sodium (Senokot S 50 Mg-8.6 Mg) 1 tab PO BID [facility] Last Admin: 07/10/18 17:58 Dose: 1 tab Vitamin A (Vitamin A & D Oint Ud Foilpak) 1 ea TOP BID PRN PRN Reason: Dry skin Last Admin: 06/13/18 10:47 Dose: 1 ea - Labs Labs: 07/10/18 08:55 07/10/18 08:55 PT 16.8 SECONDS (9.7-12.2) H 05/28/18 07:15 INR 1.5 05/28/18 07:15 APTT 34 SECONDS (21-34) 05/28/18 07:15 - Constitutional Appears: Non-toxic, No Acute Distress - Head Exam Head Exam: ATRAUMATIC, NORMOCEPHALIC - Eye Exam Eye Exam: EOMI - ENT Exam ENT Exam: Mucous Membranes Moist - Neck Exam Additional comments: trach - Respiratory Exam Respiratory Exam: Clear to Ausculation Bilateral, NORMAL BREATHING PATTERN. absent: Rhonchi, Wheezes - Cardiovascular Exam Cardiovascular Exam: REGULAR RHYTHM, +S1, +S2 - GI/Abdominal Exam GI & Abdominal Exam: Soft, Normal Bowel Sounds. absent: Tenderness - Extremities Exam Extremities Exam: Normal Inspection. absent: Pedal Edema - Neurological Exam Neurological Exam: Alert, Awake - Skin Skin Exam: Dry, Intact Assessment and Plan - Assessment and Plan (Free Text) Assessment: 52 yo F with PMHx of DM type II visiting from the [facility] [place] reported to be found unresponsive by on 05/01. Patient intubated on field, brought to ED where CODE STROKE was called. Admitted to ICU for evaluation/monitoring of anoxic brain injury. Patient noted on exam to have ring monge suggestive of attempted suicidal attempt by hanging. [employer] made aware of case and confirm high likelihood of suicide attempt. Patient s/p tracheostomy and PED tube feeding. Patient weaned off ventilator to trach collar with humidified oxygen. Downgraded to telemetry for further monitoring. Remains on trach collar, tube feeds at this time with further evaluation. Working aggressively with PT/OT/speech therapy, making significant progress and beginning to verbalize small syllable words. Plan: Anoxic Brain Injury- improving clinically - Aspiration precautions - Seizure precautions - Neurology on case, Dr. Duff/Guilherme - Turn and reposition q2h -16 fr colindres cath in proper placement for tube feeds -feeds resumed at 20cc/hr -fenestrated trach collar -at bedside, to be switched out by Dr. Brennan -continue to wean off O2 -patient making progress, verbalizing 1-2 syllable words before fatigued -Aggressive PT/OT/ST -tube feeds; glucerna, bolus feeds Intermittent vomiting -GI recs (Dr. Hilton) appreciated -ok to resume feeds, suggest doing so when patient is upright using strict aspiration precautions -Anti-emetic therapy PRN -Continue with h2 bartolo therapy -If symptoms persist, could also consider empiric anti-fungal therapy for potential candidiasis -No planned GI intervention at this time, no features of clinical malnutrition Acute Renal Injury with oliguria- improving - Likely due to dehydration - No HD needed - Nephrology recs (Dr. 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 -Na level wnl, continue to monitor -correct as needed Hypertension- chronic, stable - No pressors (was previously hypotensive) - Norvasc 10 mg PO daily Respiratory Failure resolved - Due to Asphyxiation - Laryngoscopy (06/18): vocal cords functional - s/p tracheotomy - Consider removal of trach collar - Mucomyst Q4H d/c'd (06/21) - Duonebs Q4H - Suction prn - Humidified O2, continue to wean as tolerated Fevers resolved - Afebrile since 06/04, currently off Abx - Ice packs, cooling blanket - Sputum cultures (05/25): yeast - s/p meropenum 1g Q8H & flagyl 500mg Q8H (total 13 days of treatment) - Motrin 200 mg Q6H PRN NSTEMI resolved - Elevated troponin- has normalized - ASA 81 mg PO daily (restarted 05/25) - Plavix 75mg PO daily (held - given drop in Hb) - Crestor 5 mg PO QHS - Cardiology consulted (Dr Gay) Leukocytosis resolved - Repeat CXR (05/21): slightly low lung volumes with mild crowded bronchovascular markings and minor bibasilar atelectasis - BCx (05/02): no growth - Repeat BCx (05/17): no growth - UA: leuk est 3+, +WBC, +RBC, nitrate - - UCx 05/06/18: no growth -repeat UCx (05/13, 05/17): yeast species - Tracheal Aspirate Cx 05/08/18: yeast - Colindres changed 05/17 - Doppler b/l UE and LE: negative for DVTs Hyperkalemia resolved - Continue to monitor, correct as needed Constipation, resolved - reported BM 06/28 - Senokot BID - Dulcolax 10 mg LA TID PRN - Lactulose 20 mg PO daily PRN - PEG 17gm GT bid - Flat Plate Abd (06/26): normal bowel gas pattern PPx, Diet, Disposition - DVT ppx: Heparin 5,000 Units SC Q8H - GI ppx: Pepcid 20mg GT bid - Diet: Tube feed, Vital 1.2, honey thick liquids (pleasure feeds only, per swallow eval) - Vitamin A&D - Code status: full code Case discussed with Dr. Caden Hernandez DO, PGY-1 <Emmett Negrete - Last Filed: 07/18/18 10:12> Objective - Vital Signs/Intake and Output Vital Signs (last 24 hours): Temp Pulse Resp BP Pulse Ox 97.9 F 97 H 20 145/75 99 07/18/18 08:25 07/18/18 08:25 07/18/18 08:25 07/18/18 08:25 07/18/18 08:25 Intake and Output: 07/18/18 07/18/18 06:59 18:59 Intake Total 590 Balance 590 - Medications Medications: Current Medications Acetaminophen (Tylenol 650mg/20.3ml Solution Ud) 650 mg GT Q6 PRN PRN Reason: Temperature, Fever >100.4 F Last Admin: 07/16/18 17:19 Dose: 650 mg Albuterol/Ipratropium (Duoneb 3 Mg/0.5 Mg (3 Ml) Ud) 3 ml INH RQ4 [facility] Last Admin: 07/18/18 08:24 Dose: 3 ml Amlodipine Besylate (Norvasc) 10 mg PO DAILY [facility] Last Admin: 07/17/18 10:53 Dose: 10 mg Aspirin (Aspirin Chewable) 81 mg PO DAILY [facility] Last Admin: 07/17/18 10:47 Dose: 81 mg Clopidogrel Bisulfate (Plavix) 75 mg PO DAILY [facility] Last Admin: 05/22/18 10:07 Dose: 75 mg Dextrose (Dextrose 50% Inj) 0 ml IV STAT PRN; Protocol PRN Reason: Hypoglycemia Protocol Last Admin: 06/21/18 16:15 Dose: 50 ml Dextrose (Glutose 15) 15 gm PO ONCE PRN; Protocol PRN Reason: Hypoglycemia Protocol Famotidine (Pepcid) 20 mg GT BID [facility] Last Admin: 07/17/18 20:55 Dose: Not Given Glucagon (Glucagen Diagnostic Kit) 1 mg IM STAT PRN; Protocol PRN Reason: Hypoglycemia Protocol Imipenem/Cilastatin Sodium 250 (mg/ Sodium Chloride) 100 mls @ 100 mls/hr IVPB Q6H [facility]; Protocol Last Admin: 07/18/18 03:36 Dose: 100 mls/hr Vancomycin HCl 1 gm/ Sodium (Chloride) 250 mls @ 166.7 mls/hr IVPB Q24H [facility]; Protocol Last Admin: 07/17/18 17:24 Dose: 166.7 mls/hr Sodium Chloride (Sodium Chloride 0.45%) 1,000 mls @ 40 mls/hr IV .Q24H [facility] Last Admin: 07/17/18 17:25 Dose: 40 mls/hr Ibuprofen (Motrin Oral Susp) 200 mg PO Q6H PRN PRN Reason: Fever >100.4 F Last Admin: 07/14/18 09:40 Dose: 200 mg Insulin Aspart (Novolog) 0 unit SC [facility]; Protocol Last Admin: 07/17/18 22:33 Dose: Not Given Insulin Glargine (Lantus) 40 unit SC [facility] Last Admin: 07/17/18 22:32 Dose: Not Given Insulin Human Isoph/Insulin Regular (Novolin 70/30 (70/30 Units/Ml) 10 Ml) 15 units SC BID [facility] Last Admin: 06/26/18 09:27 Dose: 15 units Metoprolol Tartrate (Lopressor) 75 mg PO BID [facility] Last Admin: 07/17/18 18:00 Dose: Not Given Ondansetron HCl (Zofran Inj) 4 mg IVP Q6H PRN PRN Reason: Nausea/Vomiting Last Admin: 07/17/18 22:31 Dose: 4 mg Polyethylene Glycol (Miralax) 17 gm GT BID [facility] Last Admin: 07/17/18 18:00 Dose: Not Given Potassium Chloride (Potassium Chloride Oral Soln) 20 meq PO DAILY [facility] Last Admin: 07/17/18 10:54 Dose: 20 meq Rosuvastatin Calcium (Crestor) 5 mg PO [facility] Last Admin: 07/17/18 22:31 Dose: Not Given Senna/Docusate Sodium (Senokot S 50 Mg-8.6 Mg) 1 tab PO BID [facility] Last Admin: 07/10/18 17:58 Dose: 1 tab Vitamin A (Vitamin A & D Oint Ud Foilpak) 1 ea TOP BID PRN PRN Reason: Dry skin Last Admin: 06/13/18 10:47 Dose: 1 ea - Labs Labs: 07/18/18 06:21 07/18/18 06:21 PT 16.8 SECONDS (9.7-12.2) H 05/28/18 07:15 INR 1.5 05/28/18 07:15 APTT 34 SECONDS (21-34) 05/28/18 07:15 Assessment and Plan - Assessment and Plan (Free Text) Plan: Seen and examined Not in pain,spoke to her family at bedside no vomiting on bolus day time feeds Attending/Attestation - Attestation I have personally seen and examined this patient.: Yes I have fully participated in the care of the patient.: Yes I have reviewed all pertinent clinical information, including history, physical exam and plan: Yes Notes (Text): Seen and examined,lying comfortable,no distress patient is getting day time feeding no vomting continue PT,OT and speech therapy on trach collar
[2018-07-11 06:17] LABS: BASO % 0.6 % (0.0-2.0); EOS # 0.1 K/uL (0.0-0.7); EOS % 0.9 % (0.0-4.0); HEMOGLOBIN 8.8 g/dL (11.0-16.0); LYMPH # 1.4 K/uL (1.0-4.3); LYMPH % 18.4 % (20.0-40.0); MEAN CORPUSCULAR HEMOGLOBIN 28.2 pg (27.0-31.0); MEAN CORPUSCULAR HGB CONC 33.6 g/dL (33.0-37.0); MEAN PLATELET VOLUME 10.5 fL (7.2-11.7); MONO # 0.5 K/uL (0.0-0.8); MONO % 6.7 % (0.0-10.0); NEUT # 5.7 K/uL (1.8-7.0); NEUT % 73.4 % (50.0-75.0); RBC 3.1 Mil/uL (3.80-5.20); WHITE BLOOD COUNT 7.8 K/uL (4.8-10.8)
[2018-07-11 06:20] LABS: ALB/GLOB RATIO 0.9 (1.0-2.1); ALBUMIN 2.7 g/dL (3.5-5.0); ALT/SGPT 27 U/L (9-52); AST/SGOT 23 U/L (14-36); BLOOD UREA NITROGEN 7 mg/dL (7-17); CALCIUM 7.9 mg/dl (8.6-10.4); GFR NON-AFRICAN AMERICAN > 60
[2018-07-11 06:32] LABS: CK-MB < 0.22 ng/mL (0.0-3.38)
[2018-07-11] MEDS: (Novolog) Insulin Aspart, Recombinant 100 u/ml 10 ml vial SC SCH ×4 (08:00→21:58)
[2018-07-11] MEDS: POLYETHYLENE GLYCOL 3350 17 GM/Dose PACKET GT SCH ×2 (11:00→17:48)
[2018-07-11] MEDS: Potassium Chloride 20 mEq/15 ml LIQ UD PO SCH (11:00)
[2018-07-12] MEDS: Albuterol-Ipratrop 3 mg / 0.5 (3 ml) UD INH SCH ×6 (00:33→19:47)
[2018-07-12 07:28] LABS: BASO % 0.4 % (0.0-2.0); EOS # 0.1 K/uL (0.0-0.7); EOS % 0.6 % (0.0-4.0); HEMOGLOBIN 9.5 g/dL (11.0-16.0); LYMPH # 1.1 K/uL (1.0-4.3); LYMPH % 12.5 % (20.0-40.0); MEAN CELL VOLUME 84.7 fL (81.0-99.0); MEAN CORPUSCULAR HEMOGLOBIN 28.3 pg (27.0-31.0); MEAN CORPUSCULAR HGB CONC 33.4 g/dL (33.0-37.0); MONO # 0.5 K/uL (0.0-0.8); MONO % 5.9 % (0.0-10.0); NEUT # 7.3 K/uL (1.8-7.0); NEUT % 80.6 % (50.0-75.0); RBC 3.37 Mil/uL (3.80-5.20); RED CELL DISTRIBUTION WIDTH 16.2 % (11.5-14.5)
--- NOTE | 2018-07-12 07:30 | CP.PCM.PN ---
Subjective - Date & Time of Evaluation Date of Evaluation: 07/12/18 Time of Evaluation: 07:30 - Subjective Subjective: PGY-1 Medicine Progress Note for Dr. Sheikh Patient seen and examined at bedside. Patient had 1 episode of peterson-colored vomiting last night, approx 200cc, intermittent bouts of diarrhea. Family members also report patient c/o discomfort/pain, pointing to various areas including chest. EKG and ELODIA obtained were negative. Patient does not seem to be tolerating bolus feeds started over weekend, will switch back to continuous feeds at low rate with gradual increase. Objective - Vital Signs/Intake and Output Vital Signs (last 24 hours): Temp Pulse Resp BP Pulse Ox 97.8 F 84 20 154/77 H 100 07/12/18 07:17 07/12/18 07:17 07/12/18 07:17 07/12/18 07:17 07/12/18 07:17 Intake and Output: 07/12/18 07/12/18 06:59 18:59 Intake Total 1000 1234 Output Total 900 800 Balance 100 434 - Medications Medications: Current Medications Albuterol/Ipratropium (Duoneb 3 Mg/0.5 Mg (3 Ml) Ud) 3 ml INH RQ4 [facility] Last Admin: 07/12/18 04:11 Dose: 3 ml Amlodipine Besylate (Norvasc) 10 mg PO DAILY [facility] Last Admin: 07/11/18 11:00 Dose: 10 mg Aspirin (Aspirin Chewable) 81 mg PO DAILY [facility] Last Admin: 07/11/18 11:00 Dose: 81 mg Clopidogrel Bisulfate (Plavix) 75 mg PO DAILY [facility] Last Admin: 05/22/18 10:07 Dose: 75 mg Dextrose (Dextrose 50% Inj) 0 ml IV STAT PRN; Protocol PRN Reason: Hypoglycemia Protocol Last Admin: 06/21/18 16:15 Dose: 50 ml Dextrose (Glutose 15) 15 gm PO ONCE PRN; Protocol PRN Reason: Hypoglycemia Protocol Famotidine (Pepcid) 20 mg GT BID [facility] Last Admin: 07/11/18 17:47 Dose: 20 mg Glucagon (Glucagen Diagnostic Kit) 1 mg IM STAT PRN; Protocol PRN Reason: Hypoglycemia Protocol Ibuprofen (Motrin Oral Susp) 200 mg PO Q6H PRN PRN Reason: Fever >100.4 F Last Admin: 07/11/18 11:25 Dose: 200 mg Insulin Aspart (Novolog) [address] [facility]; Protocol Last Admin: 07/11/18 21:58 Dose: Not Given Insulin Glargine (Lantus) 40 unit SC [facility] Last Admin: 06/25/18 22:02 Dose: Not Given Insulin Human Isoph/Insulin Regular (Novolin 70/30 (70/30 Units/Ml) 10 Ml) 15 units SC BID [facility] Last Admin: 06/26/18 09:27 Dose: 15 units Metoprolol Tartrate (Lopressor) 75 mg PO BID [facility] Last Admin: 07/11/18 17:46 Dose: 75 mg Polyethylene Glycol (Miralax) 17 gm GT BID [facility] Last Admin: 07/11/18 17:48 Dose: 17 gm Potassium Chloride (Potassium Chloride Oral Soln) 20 meq PO DAILY [facility] Last Admin: 07/11/18 11:00 Dose: 20 meq Rosuvastatin Calcium (Crestor) 5 mg PO [facility] Last Admin: 07/11/18 21:58 Dose: 5 mg Senna/Docusate Sodium (Senokot S 50 Mg-8.6 Mg) 1 tab PO BID [facility] Last Admin: 07/10/18 17:58 Dose: 1 tab Vitamin A (Vitamin A & D Oint Ud Foilpak) 1 ea TOP BID PRN PRN Reason: Dry skin Last Admin: 06/13/18 10:47 Dose: 1 ea - Labs Labs: 07/11/18 05:54 07/11/18 05:54 PT 16.8 SECONDS (9.7-12.2) H 05/28/18 07:15 INR 1.5 05/28/18 07:15 APTT 34 SECONDS (21-34) 05/28/18 07:15 - Constitutional Appears: Non-toxic, No Acute Distress, Chronically Ill - Head Exam Head Exam: ATRAUMATIC, NORMAL INSPECTION, NORMOCEPHALIC - Eye Exam Eye Exam: EOMI, Normal appearance Pupil Exam: NORMAL ACCOMODATION - ENT Exam ENT Exam: Mucous Membranes Moist, Normal Exam - Neck Exam Neck Exam: Full ROM, Normal Inspection - Respiratory Exam Respiratory Exam: Clear to Ausculation Bilateral, NORMAL BREATHING PATTERN. absent: Accessory Muscle Use, Rales, Rhonchi, Wheezes, Respiratory Distress, Stridor - Cardiovascular Exam Cardiovascular Exam: REGULAR RHYTHM, +S1, +S2 - GI/Abdominal Exam GI & Abdominal Exam: Soft, Normal Bowel Sounds. absent: Distended, Firm, Guardi ng, Rigid, Tenderness, Organomegaly, Rebound - Extremities Exam Extremities Exam: Full ROM, Normal Capillary Refill, Normal Inspection. absent: Calf Tenderness, Pedal Edema - Back Exam Back Exam: NORMAL INSPECTION - Neurological Exam Neurological Exam: Alert, Awake - Skin Skin Exam: Dry, Intact, Normal Color, Warm Assessment and Plan - Assessment and Plan (Free Text) Assessment: 52 yo F with PMHx of DM type II visiting from the [facility] [place] reported to be found unresponsive by on 05/01. Patient intubated on field, brought to ED where CODE STROKE was called. Admitted to ICU for evaluation/monitoring of anoxic brain injury. Patient noted on exam to have ring monge suggestive of attempted suicidal attempt by hanging. [employer] made aware of case and confirm high likelihood of suicide attempt. Patient s/p tracheostomy and PED tube feeding. Patient weaned off ventilator to trach collar with humidified oxygen. Downgraded to telemetry for further monitoring. Remains on trach collar, tube feeds at this time with further evaluation. Working aggressively with PT/OT/speech therapy, making significant progress and beginning to verbalize small syllable words. Plan: Anoxic Brain Injury- improving clinically - Aspiration precautions - Seizure precautions - Neurology on case, Dr. Duff/Guilherme - Turn and reposition q2h -16 fr colindres cath in proper placement for tube feeds -feeds resumed at 20cc/hr -fenestrated trach collar -at bedside, to be switched out by Dr. Brennan -continue to wean off O2 -patient making progress, verbalizing 1-2 syllable words before fatigued -Aggressive PT/OT/ST -tube feeds; glucerna -bolus feeds d/c'd (07/12), resume continuous feeds at 20cc/hr Intermittent vomiting -GI recs (Dr. Hitlon) appreciated -ok to resume feeds, suggest doing so when patient is upright using strict aspiration precautions -Anti-emetic therapy PRN -Continue with h2 bartolo therapy -If symptoms persist, could also consider empiric anti-fungal therapy for potential candidiasis -No planned GI intervention at this time, no features of clinical malnutrition Acute Renal Injury with oliguria- improving - Likely due to dehydration - No HD needed - Nephrology recs (Dr. 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 -Na level wnl, continue to monitor -correct as needed Hypertension- chronic, stable - No pressors (was previously hypotensive) - Norvasc 10 mg PO daily Respiratory Failure resolved - Due to Asphyxiation - Laryngoscopy (06/18): vocal cords functional - s/p tracheotomy - Consider removal of trach collar - Mucomyst Q4H d/c'd (06/21) - Duonebs Q4H - Suction prn - Humidified O2, continue to wean as tolerated Fevers resolved - Afebrile since 06/04, currently off Abx - Ice packs, cooling blanket - Sputum cultures (05/25): yeast - s/p meropenum 1g Q8H & flagyl 500mg Q8H (total 13 days of treatment) - Motrin 200 mg Q6H PRN NSTEMI resolved - Elevated troponin- has normalized - ASA 81 mg PO daily (restarted 05/25) - Plavix 75mg PO daily (held - given drop in Hb) - Crestor 5 mg PO QHS - Cardiology consulted (Dr Gay) Leukocytosis resolved - Repeat CXR (05/21): slightly low lung volumes with mild crowded bronchovascular markings and minor bibasilar atelectasis - BCx (05/02): no growth - Repeat BCx (05/17): no growth - UA: leuk est 3+, +WBC, +RBC, nitrate - - UCx 05/06/18: no growth -repeat UCx (05/13, 05/17): yeast species - Tracheal Aspirate Cx 05/08/18: yeast - Colindres changed 05/17 - Doppler b/l UE and LE: negative for DVTs Hyperkalemia resolved - Continue to monitor, correct as needed Constipation, resolved - reported BM 06/28 - Senokot BID - Dulcolax 10 mg NC TID PRN - Lactulose 20 mg PO daily PRN - PEG 17gm GT bid - Flat Plate Abd (06/26): normal bowel gas pattern PPx, Diet, Disposition - DVT ppx: Heparin 5,000 Units SC Q8H - GI ppx: Pepcid 20mg GT bid - Diet: Tube feed, Glucerna 1.5, honey thick liquids (pleasure feeds only, per swallow eval) - Vitamin A&D - Code status: full code Case discussed with Dr. Kori Miles DO, PGY-1
[2018-07-12 07:35] LABS: ALBUMIN 3.1 g/dL (3.5-5.0); ALT/SGPT 27 U/L (9-52); AST/SGOT 29 U/L (14-36); BLOOD UREA NITROGEN 7 mg/dL (7-17); CALCIUM 8.3 mg/dl (8.6-10.4); GFR NON-AFRICAN AMERICAN > 60
[2018-07-12] MEDS: (Novolog) Insulin Aspart, Recombinant 100 u/ml 10 ml vial SC SCH ×4 (08:14→22:00)
[2018-07-12] MEDS: Potassium Chloride 20 mEq/15 ml LIQ UD PO SCH (10:23)
[2018-07-12] MEDS: POLYETHYLENE GLYCOL 3350 17 GM/Dose PACKET GT SCH ×2 (10:25→18:34)
[2018-07-13] MEDS: Albuterol-Ipratrop 3 mg / 0.5 (3 ml) UD INH SCH ×6 (00:10→22:08)
--- NOTE | 2018-07-13 07:21 | CP.PCM.PN ---
<Montez Miles - Last Filed: 07/13/18 14:10> Subjective - Date & Time of Evaluation Date of Evaluation: 07/13/18 Time of Evaluation: 07:18 - Subjective Subjective: PGY-1 Medicine Progress Note for Dr. Sheikh Patient seen and examined at bedside this AM. Vomited 50cc whitish fluid overnight, per nurse. Tube feeds were held, will resume this AM at slow rate. Spoke to Pulm about decannulation process today. Objective - Vital Signs/Intake and Output Vital Signs (last 24 hours): Temp Pulse Resp BP Pulse Ox 97.7 F 74 20 142/73 99 07/13/18 07:12 07/13/18 07:12 07/13/18 07:12 07/13/18 07:12 07/13/18 07:12 Intake and Output: 07/13/18 07/13/18 06:59 18:59 Intake Total 380 Output Total 1750 Balance -1370 - Medications Medications: Current Medications Albuterol/Ipratropium (Duoneb 3 Mg/0.5 Mg (3 Ml) Ud) 3 ml INH RQ4 [facility] Last Admin: 07/13/18 03:40 Dose: 3 ml Amlodipine Besylate (Norvasc) 10 mg PO DAILY [facility] Last Admin: 07/12/18 10:24 Dose: 10 mg Aspirin (Aspirin Chewable) 81 mg PO DAILY [facility] Last Admin: 07/12/18 10:24 Dose: 81 mg Clopidogrel Bisulfate (Plavix) 75 mg PO DAILY [facility] Last Admin: 05/22/18 10:07 Dose: 75 mg Dextrose (Dextrose 50% Inj) 0 ml IV STAT PRN; Protocol PRN Reason: Hypoglycemia Protocol Last Admin: 06/21/18 16:15 Dose: 50 ml Dextrose (Glutose 15) 15 gm PO ONCE PRN; Protocol PRN Reason: Hypoglycemia Protocol Famotidine (Pepcid) 20 mg GT BID [facility] Last Admin: 07/12/18 18:30 Dose: 20 mg Glucagon (Glucagen Diagnostic Kit) 1 mg IM STAT PRN; Protocol PRN Reason: Hypoglycemia Protocol Ibuprofen (Motrin Oral Susp) 200 mg PO Q6H PRN PRN Reason: Fever >100.4 F Last Admin: 07/11/18 11:25 Dose: 200 mg Insulin Aspart (Novolog) [address] [facility]; Protocol Last Admin: 07/12/18 22:00 Dose: 2 units Insulin Glargine (Lantus) 40 unit SC [facility] Last Admin: 06/25/18 22:02 Dose: Not Given Insulin Human Isoph/Insulin Regular (Novolin 70/30 (70/30 Units/Ml) 10 Ml) 15 units SC BID [facility] Last Admin: 06/26/18 09:27 Dose: 15 units Metoprolol Tartrate (Lopressor) 75 mg PO BID [facility] Last Admin: 07/12/18 18:30 Dose: 75 mg Polyethylene Glycol (Miralax) 17 gm GT BID [facility] Last Admin: 07/12/18 18:34 Dose: 17 gm Potassium Chloride (Potassium Chloride Oral Soln) 20 meq PO DAILY [facility] Last Admin: 07/12/18 10:23 Dose: 20 meq Rosuvastatin Calcium (Crestor) 5 mg PO [facility] Last Admin: 07/12/18 22:16 Dose: 5 mg Senna/Docusate Sodium (Senokot S 50 Mg-8.6 Mg) 1 tab PO BID [facility] Last Admin: 07/10/18 17:58 Dose: 1 tab Vitamin A (Vitamin A & D Oint Ud Foilpak) 1 ea TOP BID PRN PRN Reason: Dry skin Last Admin: 06/13/18 10:47 Dose: 1 ea - Labs Labs: 07/12/18 07:15 07/12/18 07:15 PT 16.8 SECONDS (9.7-12.2) H 05/28/18 07:15 INR 1.5 05/28/18 07:15 APTT 34 SECONDS (21-34) 05/28/18 07:15 - Constitutional Appears: Non-toxic, No Acute Distress, Chronically Ill - Head Exam Head Exam: ATRAUMATIC, NORMAL INSPECTION, NORMOCEPHALIC - Eye Exam Eye Exam: EOMI, Normal appearance Pupil Exam: NORMAL ACCOMODATION - ENT Exam ENT Exam: Mucous Membranes Moist, Normal Exam - Neck Exam Neck Exam: Full ROM, Normal Inspection - Respiratory Exam Respiratory Exam: Clear to Ausculation Bilateral, NORMAL BREATHING PATTERN. absent: Accessory Muscle Use, Rales, Rhonchi, Wheezes, Respiratory Distress, Stridor - Cardiovascular Exam Cardiovascular Exam: REGULAR RHYTHM, +S1, +S2 - Extremities Exam Extremities Exam: Normal Capillary Refill. absent: Calf Tenderness, Pedal Edema Additional comments: contracted upper and lower extremities b/l muscle atrophy - Back Exam Back Exam: NORMAL INSPECTION - Neurological Exam Neurological Exam: Alert, Awake Additional comments: able to verbalize 1-2 syllable words with help of speech therapy - Skin Skin Exam: Dry, Intact, Normal Color, Warm Assessment and Plan - Assessment and Plan (Free Text) Assessment: 52 yo F with PMHx of DM type II visiting from the [place] reported to be found unresponsive by on 05/01. Patient intubated on field, brought to ED where CODE [facility]OKE was called. Admitted to ICU for evaluation/monitoring of anoxic brain injury. Patient noted on exam to have ring monge suggestive of attempted suicidal attempt by hanging. [employer] made aware of case and confirm high likelihood of suicide attempt. Patient s/p tracheostomy and PED tube feeding. Patient weaned off ventilator to trach collar with humidified oxygen. Downgraded to telemetry for further monitoring. Remains on trach collar, tube feeds at this time with further evaluation. Working aggressively with PT/OT/speech therapy, making significant progress and beginning to verbalize small syllable words. Plan: Anoxic Brain Injury- improving clinically - Aspiration precautions - Seizure precautions - Neurology on case, Dr. Duff/Guilherme - Turn and reposition q2h -colindres cath in proper placement for tube feeds -feeds resumed at 20cc/hr -fenestrated trach collar -at bedside, to be switched out by Dr. Brennan -continue to wean off O2 -patient making progress, verbalizing 1-2 syllable words before fatigued -Aggressive PT/OT/ST -tube feeds; glucerna -continuous feeds at 20cc/hr Intermittent vomiting -GI recs (Dr. Hilton) appreciated -ok to resume feeds, suggest doing so when patient is upright using strict aspiration precautions -Anti-emetic therapy PRN -Continue with h2 bartolo therapy -If symptoms persist, could also consider empiric anti-fungal therapy for potential candidiasis -No planned GI intervention at this time, no features of clinical malnutri tion Acute Renal Injury with oliguria- improving - Likely due to dehydration - No HD needed - Nephrology recs (Dr. 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 -Na level wnl, continue to monitor -correct as needed Hypertension- chronic, stable - No pressors (was previously hypotensive) - Norvasc 10 mg PO daily Respiratory Failure resolved - Due to Asphyxiation - Laryngoscopy (06/18): vocal cords functional - s/p tracheotomy - Consider removal of trach collar - Mucomyst Q4H d/c'd (06/21) - Duonebs Q4H - Suction prn - Humidified O2, continue to wean as tolerated Fevers resolved - Afebrile since 06/04, currently off Abx - Ice packs, cooling blanket - Sputum cultures (05/25): yeast - s/p meropenum 1g Q8H & flagyl 500mg Q8H (total 13 days of treatment) - Motrin 200 mg Q6H PRN NSTEMI resolved - Elevated troponin- has normalized - ASA 81 mg PO daily (restarted 05/25) - Plavix 75mg PO daily (held - given drop in Hb) - Crestor 5 mg PO QHS - Cardiology consulted (Dr Gay) Leukocytosis resolved - Repeat CXR (05/21): slightly low lung volumes with mild crowded bronchovascular markings and minor bibasilar atelectasis - BCx (05/02): no growth - Repeat BCx (05/17): no growth - UA: leuk est 3+, +WBC, +RBC, nitrate - - UCx 05/06/18: no growth -repeat UCx (05/13, 05/17): yeast species - Tracheal Aspirate Cx 05/08/18: yeast - Colindres changed 05/17 - Doppler b/l UE and LE: negative for DVTs Hyperkalemia resolved - Continue to monitor, correct as needed Constipation, resolved - reported BM 06/28 - Senokot BID - Dulcolax 10 mg MI TID PRN - Lactulose 20 mg PO daily PRN - PEG 17gm GT bid - Flat Plate Abd (06/26): normal bowel gas pattern PPx, Diet, Disposition - DVT ppx: Heparin 5,000 Units SC Q8H - GI ppx: Pepcid 20mg GT bid - Diet: Tube feed, Glucerna 1.5, honey thick liquids (pleasure feeds only, per swallow eval) - Vitamin A&D - Code status: full code Case discussed with Dr. Kori Miles DO, PGY-1 <Yann Sheikh H - Last Filed: 07/13/18 15:24> Objective - Vital Signs/Intake and Output Vital Signs (last 24 hours): Temp Pulse Resp BP Pulse Ox 97.7 F 74 20 137/68 99 07/13/18 07:12 07/13/18 07:12 07/13/18 07:12 07/13/18 10:51 07/13/18 07:12 Intake and Output: 07/13/18 07/13/18 06:59 18:59 Intake Total 380 140 Output Total 1750 600 Balance -1370 -460 - Medications Medications: Current Medications Albuterol/Ipratropium (Duoneb 3 Mg/0.5 Mg (3 Ml) Ud) 3 ml INH RQ4 [facility] Last Admin: 07/13/18 11:37 Dose: 3 ml Amlodipine Besylate (Norvasc) 10 mg PO DAILY [facility] Last Admin: 07/13/18 10:51 Dose: 10 mg Aspirin (Aspirin Chewable) 81 mg PO DAILY [facility] Last Admin: 07/13/18 10:51 Dose: 81 mg Clopidogrel Bisulfate (Plavix) 75 mg PO DAILY [facility] Last Admin: 05/22/18 10:07 Dose: 75 mg Dextrose (Dextrose 50% Inj) 0 ml IV STAT PRN; Protocol PRN Reason: Hypoglycemia Protocol Last Admin: 06/21/18 16:15 Dose: 50 ml Dextrose (Glutose 15) 15 gm PO ONCE PRN; Protocol PRN Reason: Hypoglycemia Protocol Famotidine (Pepcid) 20 mg GT BID [facility] Last Admin: 07/13/18 10:51 Dose: 20 mg Glucagon (Glucagen Diagnostic Kit) 1 mg IM STAT PRN; Protocol PRN Reason: Hypoglycemia Protocol Ibuprofen (Motrin Oral Susp) 200 mg PO Q6H PRN PRN Reason: Fever >100.4 F Last Admin: 07/13/18 11:05 Dose: 200 mg Insulin Aspart (Novolog) 0 unit SC ACHS [facility]; Protocol Last Admin: 07/13/18 11:47 Dose: 2 units Insulin Glargine (Lantus) 40 unit SC HS [facility] Last Admin: 06/25/18 22:02 Dose: Not Given Insulin Human Isoph/Insulin Regular (Novolin 70/30 (70/30 Units/Ml) 10 Ml) 15 units SC BID [facility] Last Admin: 06/26/18 09:27 Dose: 15 units Metoprolol Tartrate (Lopressor) 75 mg PO BID [facility] Last Admin: 07/13/18 10:51 Dose: 75 mg Polyethylene Glycol (Miralax) 17 gm GT BID [facility] Last Admin: 07/13/18 10:51 Dose: 17 gm Potassium Chloride (Potassium Chloride Oral Soln) 20 meq PO DAILY [facility] Last Admin: 07/13/18 10:53 Dose: 20 meq Rosuvastatin Calcium (Crestor) 5 mg PO HS [facility] Last Admin: 07/12/18 22:16 Dose: 5 mg Senna/Docusate Sodium (Senokot S 50 Mg-8.6 Mg) 1 tab PO BID [facility] Last Admin: 07/10/18 17:58 Dose: 1 tab Vitamin A (Vitamin A & D Oint Ud Foilpak) 1 ea TOP BID PRN PRN Reason: Dry skin Last Admin: 06/13/18 10:47 Dose: 1 ea - Labs Labs: 07/13/18 07:03 07/13/18 07:03 PT 16.8 SECONDS (9.7-12.2) H 05/28/18 07:15 INR 1.5 05/28/18 07:15 APTT 34 SECONDS (21-34) 05/28/18 07:15 Attending/Attestation - Attestation I have personally seen and examined this patient.: Yes I have fully participated in the care of the patient.: Yes I have reviewed all pertinent clinical information, including history, physical exam and plan: Yes
[2018-07-13 07:28] LABS: BASO # 0.1 K/uL (0.0-0.2); BASO % 0.8 % (0.0-2.0); EOS # 0.1 K/uL (0.0-0.7); EOS % 0.9 % (0.0-4.0); HEMOGLOBIN 8.8 g/dL (11.0-16.0); LYMPH # 1.6 K/uL (1.0-4.3); LYMPH % 19.7 % (20.0-40.0); MEAN CELL VOLUME 84.3 fL (81.0-99.0); MEAN CORPUSCULAR HEMOGLOBIN 28.4 pg (27.0-31.0); MEAN CORPUSCULAR HGB CONC 33.8 g/dL (33.0-37.0); MEAN PLATELET VOLUME 11.2 fL (7.2-11.7); MONO # 0.7 K/uL (0.0-0.8); MONO % 8.2 % (0.0-10.0); NEUT # 5.7 K/uL (1.8-7.0); NEUT % 70.4 % (50.0-75.0); RBC 3.11 Mil/uL (3.80-5.20); RED CELL DISTRIBUTION WIDTH 16.3 % (11.5-14.5); WHITE BLOOD COUNT 8.1 K/uL (4.8-10.8)
[2018-07-13 07:31] LABS: ALBUMIN 2.9 g/dL (3.5-5.0); ALT/SGPT 27 U/L (9-52); AST/SGOT 24 U/L (14-36); BLOOD UREA NITROGEN 4 mg/dL (7-17); CALCIUM 8.3 mg/dl (8.6-10.4); GFR NON-AFRICAN AMERICAN > 60
[2018-07-13] MEDS: (Novolog) Insulin Aspart, Recombinant 100 u/ml 10 ml vial SC SCH ×5 (08:04→21:59)
[2018-07-13] MEDS: POLYETHYLENE GLYCOL 3350 17 GM/Dose PACKET GT SCH ×2 (10:51→18:33)
[2018-07-13] MEDS: Potassium Chloride 20 mEq/15 ml LIQ UD PO SCH (10:53)
--- NOTE | 2018-07-13 17:54 | CP.PCM.PN ---
Subjective - Date & Time of Evaluation Date of Evaluation: 07/13/18 Time of Evaluation: 14:40 - Subjective Subjective: PGY2 Pulmonology Note for Dr. Brennan Decannulation of tracheostomy tube completed around 1445. Patient tolerated decannulation well and was saturating at 96-98% on 3L Objective - Vital Signs/Intake and Output Vital Signs (last 24 hours): Temp Pulse Resp BP Pulse Ox 97.6 F 58 L 20 128/68 100 07/13/18 16:00 07/13/18 16:00 07/13/18 16:00 07/13/18 16:00 07/13/18 16:00 Intake and Output: 07/13/18 07/13/18 06:59 18:59 Intake Total 380 140 Output Total 1750 600 Balance -1370 -460 - Medications Medications: Current Medications Albuterol/Ipratropium (Duoneb 3 Mg/0.5 Mg (3 Ml) Ud) 3 ml INH RQ4 [facility] Last Admin: 07/13/18 17:02 Dose: 3 ml Amlodipine Besylate (Norvasc) 10 mg PO DAILY [facility] Last Admin: 07/13/18 10:51 Dose: 10 mg Aspirin (Aspirin Chewable) 81 mg PO DAILY [facility] Last Admin: 07/13/18 10:51 Dose: 81 mg Clopidogrel Bisulfate (Plavix) 75 mg PO DAILY [facility] Last Admin: 05/22/18 10:07 Dose: 75 mg Dextrose (Dextrose 50% Inj) 0 ml IV STAT PRN; Protocol PRN Reason: Hypoglycemia Protocol Last Admin: 06/21/18 16:15 Dose: 50 ml Dextrose (Glutose 15) 15 gm PO ONCE PRN; Protocol PRN Reason: Hypoglycemia Protocol Famotidine (Pepcid) 20 mg GT BID [facility] Last Admin: 07/13/18 10:51 Dose: 20 mg Glucagon (Glucagen Diagnostic Kit) 1 mg IM STAT PRN; Protocol PRN Reason: Hypoglycemia Protocol Ibuprofen (Motrin Oral Susp) 200 mg PO Q6H PRN PRN Reason: Fever >100.4 F Last Admin: 07/13/18 11:05 Dose: 200 mg Insulin Aspart (Novolog) 0 unit SC ACHS [facility]; Protocol Last Admin: 07/13/18 11:47 Dose: 2 units Insulin Glargine (Lantus) 40 unit SC HS [facility] Last Admin: 06/25/18 22:02 Dose: Not Given Insulin Human Isoph/Insulin Regular (Novolin 70/30 (70/30 Units/Ml) 10 Ml) 15 units SC BID [facility] Last Admin: 06/26/18 09:27 Dose: 15 units Metoprolol Tartrate (Lopressor) 75 mg PO BID [facility] Last Admin: 07/13/18 10:51 Dose: 75 mg Polyethylene Glycol (Miralax) 17 gm GT BID [facility] Last Admin: 07/13/18 10:51 Dose: 17 gm Potassium Chloride (Potassium Chloride Oral Soln) 20 meq PO DAILY [facility] Last Admin: 07/13/18 10:53 Dose: 20 meq Rosuvastatin Calcium (Crestor) 5 mg PO HS [facility] Last Admin: 07/12/18 22:16 Dose: 5 mg Senna/Docusate Sodium (Senokot S 50 Mg-8.6 Mg) 1 tab PO BID [facility] Last Admin: 07/10/18 17:58 Dose: 1 tab Vitamin A (Vitamin A & D Oint Ud Foilpak) 1 ea TOP BID PRN PRN Reason: Dry skin Last Admin: 06/13/18 10:47 Dose: 1 ea - Labs Labs: 07/13/18 07:03 07/13/18 07:03 PT 16.8 SECONDS (9.7-12.2) H 05/28/18 07:15 INR 1.5 05/28/18 07:15 APTT 34 SECONDS (21-34) 05/28/18 07:15
--- NOTE | 2018-07-13 18:15 | CARD ---
APPROVED REPORT Date of service: 07/11/2018 EKG Measurement Heart [id number] <Conclusion> Normal sinus rhythm Nonspecific T wave abnormality Prolonged QT Abnormal ECG
[2018-07-14] MEDS: Albuterol-Ipratrop 3 mg / 0.5 (3 ml) UD INH SCH ×6 (00:25→21:03)
--- NOTE | 2018-07-14 03:45 | CP.PCM.PCO ---
Physician Communication Note - Physician Communication Note Physician Communication Note: Alvarado d/c-ed and UA/Ucx 2/2 urethral pain.
[2018-07-14 07:09] LABS: URINE BACTERIA MOD (<OCC); URINE BILIRUBIN NEGATIVE (NEGATIVE); URINE BLOOD NEGATIVE (NEGATIVE); URINE CLARITY Hazy (Clear); URINE COLOR Red (YELLOW); URINE GLUCOSE (UA) 3+ mg/dL (Normal); URINE LEUKOCYTE ESTERASE 3+ Leu/uL (Negative); URINE PROTEIN NEGATIVE (NEGATIVE); URINE UROBILINOGEN NORMAL mg/dL (0.2-1.0); WBC CLUMPS MOD /hpf
[2018-07-14 07:11] LABS: HEMOGLOBIN 9.4 g/dL (11.0-16.0); MEAN CELL VOLUME 83.9 fL (81.0-99.0); MEAN CORPUSCULAR HEMOGLOBIN 27.6 pg (27.0-31.0); MEAN CORPUSCULAR HGB CONC 32.9 g/dL (33.0-37.0); MEAN PLATELET VOLUME 10.9 fL (7.2-11.7); RBC 3.41 Mil/uL (3.80-5.20); RED CELL DISTRIBUTION WIDTH 16.1 % (11.5-14.5); WHITE BLOOD COUNT 11.3 K/uL (4.8-10.8)
--- NOTE | 2018-07-14 07:32 | CP.PCM.PN ---
<Montez Miles - Last Filed: 07/14/18 16:38> Subjective - Date & Time of Evaluation Date of Evaluation: 07/14/18 Time of Evaluation: 07:22 - Subjective Subjective: PGY-1 Medicine Progress Note for Dr. Sheikh Patient seen and examined at bedside this am, s/p decannulation. Patient tolerated decannulation well and was saturating at 96-98% on 3L. Overnight, patient was visibly irritated by colindres per nursing, attempted to pull it out. Bladder scan was performed and showed zero residual. UA/Urine culture were obtained, colindres was removed overnight with relief of pain. Making significant progress, able to verbalize more words, express her feelings. Objective - Vital Signs/Intake and Output Vital Signs (last 24 hours): Temp Pulse Resp BP Pulse Ox 97.7 F 61 14 144/72 100 07/14/18 02:00 07/14/18 02:00 07/14/18 02:00 07/14/18 02:00 07/14/18 02:00 Intake and Output: 07/14/18 07/14/18 06:59 18:59 Intake Total 800 Output Total 750 Balance 50 - Medications Medications: Current Medications Albuterol/Ipratropium (Duoneb 3 Mg/0.5 Mg (3 Ml) Ud) 3 ml INH RQ4 [facility] Last Admin: 07/14/18 04:40 Dose: 3 ml Amlodipine Besylate (Norvasc) 10 mg PO DAILY [facility] Last Admin: 07/13/18 10:51 Dose: 10 mg Aspirin (Aspirin Chewable) 81 mg PO DAILY [facility] Last Admin: 07/13/18 10:51 Dose: 81 mg Clopidogrel Bisulfate (Plavix) 75 mg PO DAILY [facility] Last Admin: 05/22/18 10:07 Dose: 75 mg Dextrose (Dextrose 50% Inj) 0 ml IV STAT PRN; Protocol PRN Reason: Hypoglycemia Protocol Last Admin: 06/21/18 16:15 Dose: 50 ml Dextrose (Glutose 15) 15 gm PO ONCE PRN; Protocol PRN Reason: Hypoglycemia Protocol Famotidine (Pepcid) 20 mg GT BID [facility] Last Admin: 07/13/18 18:04 Dose: 20 mg Glucagon (Glucagen Diagnostic Kit) 1 mg IM STAT PRN; Protocol PRN Reason: Hypoglycemia Protocol Ibuprofen (Motrin Oral Susp) 200 mg PO Q6H PRN PRN Reason: Fever >100.4 F Last Admin: 07/13/18 22:38 Dose: 200 mg Insulin Aspart (Novolog) 0 unit SC [facility]; Protocol Last Admin: 07/13/18 21:59 Dose: Not Given Insulin Glargine (Lantus) 40 unit SC [facility] Last Admin: 06/25/18 22:02 Dose: Not Given Insulin Human Isoph/Insulin Regular (Novolin 70/30 (70/30 Units/Ml) 10 Ml) 15 units SC BID [facility] Last Admin: 06/26/18 09:27 Dose: 15 units Metoprolol Tartrate (Lopressor) 75 mg PO BID [facility] Last Admin: 07/13/18 18:04 Dose: 75 mg Ondansetron HCl (Zofran Inj) 4 mg IVP Q8H PRN PRN Reason: Nausea/Vomiting Polyethylene Glycol (Miralax) 17 gm GT BID [facility] Last Admin: 07/13/18 18:33 Dose: 17 gm Potassium Chloride (Potassium Chloride Oral Soln) 20 meq PO DAILY [facility] Last Admin: 07/13/18 10:53 Dose: 20 meq Rosuvastatin Calcium (Crestor) 5 mg PO [facility] Last Admin: 07/13/18 22:15 Dose: 5 mg Senna/Docusate Sodium (Senokot S 50 Mg-8.6 Mg) 1 tab PO BID [facility] Last Admin: 07/10/18 17:58 Dose: 1 tab Vitamin A (Vitamin A & D Oint Ud Foilpak) 1 ea TOP BID PRN PRN Reason: Dry skin Last Admin: 06/13/18 10:47 Dose: 1 ea - Labs Labs: 07/14/18 07:05 07/13/18 07:03 PT 16.8 SECONDS (9.7-12.2) H 05/28/18 07:15 INR 1.5 05/28/18 07:15 APTT 34 SECONDS (21-34) 05/28/18 07:15 - Constitutional Appears: Non-toxic, No Acute Distress, Chronically Ill - Head Exam Head Exam: ATRAUMATIC, NORMAL INSPECTION, NORMOCEPHALIC - Eye Exam Eye Exam: EOMI, Normal appearance Pupil Exam: NORMAL ACCOMODATION - ENT Exam ENT Exam: Mucous Membranes Moist, Normal Exam - Neck Exam Neck Exam: Full ROM, Normal Inspection - Respiratory Exam Respiratory Exam: Clear to Ausculation Bilateral, NORMAL BREATHING PATTERN. absent: Accessory Muscle Use, Rales, Rhonchi, Wheezes, Respiratory Distress, Stridor - Cardiovascular Exam Cardiovascular Exam: REGULAR RHYTHM, +S1, +S2 - GI/Abdominal Exam GI & Abdominal Exam: Soft, Normal Bowel Sounds. absent: Distended, Firm, Guarding, Rigid, Tenderness, Rebound Additional comments: tube feed, abdominal binder in place - Neurological Exam Neurological Exam: Alert, Awake - Skin Skin Exam: Dry, Intact, Normal Color, Warm Assessment and Plan - Assessment and Plan (Free Text) Assessment: 52 yo F with PMHx of DM type II visiting from the [place] reported to be found unresponsive by on 05/01. Patient intubated on field, brought to ED where CODE STROKE was called. Admitted to ICU for evaluation/monitoring of anoxic brain injury. Patient noted on exam to have ring monge suggestive of attempted suicidal attempt by hanging. [employer] made aware of case and confirm high likelihood of suicide attempt. Patient s/p tracheostomy and PED tube feeding. Patient weaned off ventilator to trach collar with humidified oxygen. Downgraded to telemetry for further monitoring. Patient succ essfully decannulated (07/14), urinary colindres d/c'd with no residual on bladder scan. Making significant progress: able to verbalize more words. Plan: Anoxic Brain Injury- improving clinically - Aspiration precautions - Seizure precautions - Neurology on case, Dr. Duff/Guilherme - Turn and reposition q2h -colindres cath in proper placement for tube feeds -feeds resumed at 20cc/hr -patient successfully decannulated (07/14) -tube feeds; glucerna -continuous feeds at 20cc/hr -Aggressive PT/OT/ST Intermittent vomiting -GI recs (Dr. Hilton) appreciated -ok to resume feeds, suggest doing so when patient is upright using strict aspiration precautions -Anti-emetic therapy PRN -Continue with h2 bartolo therapy -If symptoms persist, could also consider empiric anti-fungal therapy for potential candidiasis -No planned GI intervention at this time, no features of clinical malnutrition Acute Renal Injury with oliguria- improving - Likely due to dehydration - No HD needed - Nephrology recs (Dr. 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 -Na level wnl, continue to monitor -correct as needed Hypertension- chronic, stable - No pressors (was previously hypotensive) - Norvasc 10 mg PO daily Respiratory Failure resolved - Due to Asphyxiation - Laryngoscopy (06/18): vocal cords functional - s/p tracheotomy - Consider removal of trach collar - Mucomyst Q4H d/c'd (06/21) - Duonebs Q4H - Suction prn - Humidified O2, continue to wean as tolerated Fevers resolved - Afebrile since 06/04, currently off Abx - Ice packs, cooling blanket - Sputum cultures (05/25): yeast - s/p meropenum 1g Q8H & flagyl 500mg Q8H (total 13 days of treatment) - Motrin 200 mg Q6H PRN NSTEMI resolved - Elevated troponin- has normalized - ASA 81 mg PO daily (restarted 05/25) - Plavix 75mg PO daily (held - given drop in Hb) - Crestor 5 mg PO QHS - Cardiology consulted (Dr Gay) Leukocytosis resolved - Repeat CXR (05/21): slightly low lung volumes with mild crowded bronchovascular markings and minor bibasilar atelectasis - BCx (05/02): no growth - Repeat BCx (05/17): no growth - UA: leuk est 3+, +WBC, +RBC, nitrate - - UCx 05/06/18: no growth -repeat UCx (05/13, 05/17): yeast species - Tracheal Aspirate Cx 05/08/18: yeast - Colindres changed 05/17 - Doppler b/l UE and LE: negative for DVTs Hyperkalemia resolved - Continue to monitor, correct as needed Constipation, resolved - reported BM 06/28 - Senokot BID - Dulcolax 10 mg [place] TID PRN - Lactulose 20 mg PO daily PRN - PEG 17gm GT bid - Flat Plate Abd (06/26): normal bowel gas pattern PPx, Diet, Disposition - DVT ppx: Heparin 5,000 Units SC Q8H - GI ppx: Pepcid 20mg GT bid - Diet: Tube feed, Glucerna 1.5, honey thick liquids (pleasure feeds only, per s yury randle) - Vitamin A&D - Code status: full code Case discussed with Dr. Kori Miles DO, PGY-1 <Yann Sheikh H - Last Filed: 07/14/18 16:47> Objective - Vital Signs/Intake and Output Vital Signs (last 24 hours): Temp Pulse Resp BP Pulse Ox 97.8 F 67 20 162/70 H 98 07/14/18 07:00 07/14/18 07:00 07/14/18 07:00 07/14/18 09:33 07/14/18 07:00 Intake and Output: 07/14/18 07/14/18 06:59 18:59 Intake Total 800 160 Output Total 750 300 Balance 50 -140 - Medications Medications: Current Medications Acetaminophen (Tylenol 650mg/20.3ml Solution Ud) 650 mg GT Q6 PRN PRN Reason: Temperature, Fever >100.4 F Albuterol/Ipratropium (Duoneb 3 Mg/0.5 Mg (3 Ml) Ud) 3 ml INH RQ4 [facility] Last Admin: 07/14/18 16:43 Dose: 3 ml Amlodipine Besylate (Norvasc) 10 mg PO DAILY [facility] Last Admin: 07/14/18 09:33 Dose: 10 mg Aspirin (Aspirin Chewable) 81 mg PO DAILY [facility] Last Admin: 07/14/18 09:33 Dose: 81 mg Clopidogrel Bisulfate (Plavix) 75 mg PO DAILY [facility] Last Admin: 05/22/18 10:07 Dose: 75 mg Dextrose (Dextrose 50% Inj) 0 ml IV STAT PRN; Protocol PRN Reason: Hypoglycemia Protocol Last Admin: 06/21/18 16:15 Dose: 50 ml Dextrose (Glutose 15) 15 gm PO ONCE PRN; Protocol PRN Reason: Hypoglycemia Protocol Famotidine (Pepcid) 20 mg GT BID [facility] Last Admin: 07/14/18 09:33 Dose: 20 mg Glucagon (Glucagen Diagnostic Kit) 1 mg IM STAT PRN; Protocol PRN Reason: Hypoglycemia Protocol Ibuprofen (Motrin Oral Susp) 200 mg PO Q6H PRN PRN Reason: Fever >100.4 F Last Admin: 07/14/18 09:40 Dose: 200 mg Insulin Aspart (Novolog) 0 unit SC [facility]; Protocol Last Admin: 07/14/18 11:45 Dose: 2 units Insulin Glargine (Lantus) 40 unit SC [facility] Last Admin: 06/25/18 22:02 Dose: Not Given Insulin Human Isoph/Insulin Regular (Novolin 70/30 (70/30 Units/Ml) 10 Ml) 15 units SC BID [facility] Last Admin: 06/26/18 09:27 Dose: 15 units Metoprolol Tartrate (Lopressor) 75 mg PO BID [facility] Last Admin: 07/14/18 09:33 Dose: 75 mg Ondansetron HCl (Zofran Inj) 4 mg IVP Q8H PRN PRN Reason: Nausea/Vomiting Polyethylene Glycol (Miralax) 17 gm GT BID [facility] Last Admin: 07/14/18 09:34 Dose: 17 gm Potassium Chloride (Potassium Chloride Oral Soln) 20 meq PO DAILY [facility] Last Admin: 07/14/18 09:33 Dose: 20 meq Rosuvastatin Calcium (Crestor) 5 mg PO [facility] Last Admin: 07/13/18 22:15 Dose: 5 mg Senna/Docusate Sodium (Senokot S 50 Mg-8.6 Mg) 1 tab PO BID [facility] Last Admin: 07/10/18 17:58 Dose: 1 tab Vitamin A (Vitamin A & D Oint Ud Foilpak) 1 ea TOP BID PRN PRN Reason: Dry skin Last Admin: 06/13/18 10:47 Dose: 1 ea - Labs Labs: 07/14/18 07:05 07/14/18 07:05 PT 16.8 SECONDS (9.7-12.2) H 05/28/18 07:15 INR 1.5 05/28/18 07:15 APTT 34 SECONDS (21-34) 05/28/18 07:15 Attending/Attestation - Attestation I have personally seen and examined this patient.: Yes I have fully participated in the care of the patient.: Yes I have reviewed all pertinent clinical information, including history, physical exam and plan: Yes Notes (Text): 07/14/18 16:46 Medical attending: Patient was seen and examined by me. Reviewed the above note by the resident and agree Patient no longer has trach. She appears to be breathing well at this moment. Family at bedside Patient was following simple commands and trying to communicate in Telugu
[2018-07-14 07:39] LABS: ALBUMIN 3.3 g/dL (3.5-5.0); ALT/SGPT 26 U/L (9-52); AST/SGOT 25 U/L (14-36); BLOOD UREA NITROGEN 6 mg/dL (7-17); CALCIUM 8.6 mg/dl (8.6-10.4); GFR NON-AFRICAN AMERICAN > 60
[2018-07-14] MEDS: (Novolog) Insulin Aspart, Recombinant 100 u/ml 10 ml vial SC SCH ×4 (08:10→22:14)
[2018-07-14 09:00] LABS: EOS # 0.2 K/uL (0.0-0.7); LYMPH # 1.5 K/uL (1.0-4.3); MONO # 0.3 K/uL (0.0-0.8); NEUT # 9.3 K/uL (1.8-7.0)
[2018-07-14] MEDS: Potassium Chloride 20 mEq/15 ml LIQ UD PO SCH (09:33)
[2018-07-14] MEDS: POLYETHYLENE GLYCOL 3350 17 GM/Dose PACKET GT SCH ×2 (09:34→17:58)
[2018-07-15] MEDS: Albuterol-Ipratrop 3 mg / 0.5 (3 ml) UD INH SCH ×6 (00:59→19:25)
[2018-07-15] MEDS: (Novolog) Insulin Aspart, Recombinant 100 u/ml 10 ml vial SC SCH ×4 (06:56→22:31)
[2018-07-15 07:12] LABS: BASO # 0.1 K/uL (0.0-0.2); EOS # 0.1 K/uL (0.0-0.7); LYMPH # 1.4 K/uL (1.0-4.3)
--- NOTE | 2018-07-15 07:27 | CP.PCM.PN ---
<Montez Miles - Last Filed: 07/15/18 15:09> Subjective - Date & Time of Evaluation Date of Evaluation: 07/15/18 Time of Evaluation: 07:27 - Subjective Subjective: PGY-1 Medicine Progress Note for Dr. Sheikh Patient seen and examined at bedside this AM, in no acute distress. Per nursing, patient intermittently vomiting overnight, tube feeds held. Will continue to hold for time being, give IVF. Awaiting speech and swallow re-evaluation given patient is successfully decannulated. Awaiting finalized urine culture, will start vanco and primaxin IV given increase in WBC. Objective - Vital Signs/Intake and Output Vital Signs (last 24 hours): Temp Pulse Resp BP Pulse Ox 97.3 F L 71 20 134/70 100 07/15/18 00:00 07/15/18 00:00 07/15/18 00:00 07/15/18 00:00 07/15/18 00:00 Intake and Output: 07/15/18 07/15/18 06:59 18:59 Intake Total 160 Balance 160 - Medications Medications: Current Medications Acetaminophen (Tylenol 650mg/20.3ml Solution Ud) 650 mg GT Q6 PRN PRN Reason: Temperature, Fever >100.4 F Albuterol/Ipratropium (Duoneb 3 Mg/0.5 Mg (3 Ml) Ud) 3 ml INH RQ4 [facility] Last Admin: 07/15/18 03:58 Dose: 3 ml Amlodipine Besylate (Norvasc) 10 mg PO DAILY [facility] Last Admin: 07/14/18 09:33 Dose: 10 mg Aspirin (Aspirin Chewable) 81 mg PO DAILY [facility] Last Admin: 07/14/18 09:33 Dose: 81 mg Clopidogrel Bisulfate (Plavix) 75 mg PO DAILY [facility] Last Admin: 05/22/18 10:07 Dose: 75 mg Dextrose (Dextrose 50% Inj) 0 ml IV STAT PRN; Protocol PRN Reason: Hypoglycemia Protocol Last Admin: 06/21/18 16:15 Dose: 50 ml Dextrose (Glutose 15) 15 gm PO ONCE PRN; Protocol PRN Reason: Hypoglycemia Protocol Famotidine (Pepcid) 20 mg GT BID [facility] Last Admin: 07/14/18 17:59 Dose: 20 mg Glucagon (Glucagen Diagnostic Kit) 1 mg IM STAT PRN; Protocol PRN Reason: Hypoglycemia Protocol Ibuprofen (Motrin Oral Susp) 200 mg PO Q6H PRN PRN Reason: Fever >100.4 F Last Admin: 07/14/18 09:40 Dose: 200 mg Insulin Aspart (Novolog) 0 unit SC [facility]; Protocol Last Admin: 07/15/18 06:56 Dose: 6 units Insulin Glargine (Lantus) 40 unit SC [facility] Last Admin: 06/25/18 22:02 Dose: Not Given Insulin Human Isoph/Insulin Regular (Novolin 70/30 (70/30 Units/Ml) 10 Ml) 15 units SC BID [facility] Last Admin: 06/26/18 09:27 Dose: 15 units Metoprolol Tartrate (Lopressor) 75 mg PO BID [facility] Last Admin: 07/14/18 17:26 Dose: Not Given Ondansetron HCl (Zofran Inj) 4 mg IVP Q8H PRN PRN Reason: Nausea/Vomiting Last Admin: 07/15/18 01:19 Dose: 4 mg Polyethylene Glycol (Miralax) 17 gm GT BID [facility] Last Admin: 07/14/18 17:58 Dose: 17 gm Potassium Chloride (Potassium Chloride Oral Soln) 20 meq PO DAILY [facility] Last Admin: 07/14/18 09:33 Dose: 20 meq Rosuvastatin Calcium (Crestor) 5 mg PO [facility] Last Admin: 07/14/18 22:42 Dose: 5 mg Senna/Docusate Sodium (Senokot S 50 Mg-8.6 Mg) 1 tab PO BID [facility] Last Admin: 07/10/18 17:58 Dose: 1 tab Vitamin A (Vitamin A & D Oint Ud Foilpak) 1 ea TOP BID PRN PRN Reason: Dry skin Last Admin: 06/13/18 10:47 Dose: 1 ea - Labs Labs: 07/14/18 07:05 07/14/18 07:05 PT 16.8 SECONDS (9.7-12.2) H 05/28/18 07:15 INR 1.5 05/28/18 07:15 APTT 34 SECONDS (21-34) 05/28/18 07:15 - Constitutional Appears: Non-toxic, No Acute Distress, Chronically Ill - Head Exam Head Exam: ATRAUMATIC, NORMAL INSPECTION, NORMOCEPHALIC - Eye Exam Eye Exam: EOMI, Normal appearance - ENT Exam ENT Exam: Mucous Membranes Moist, Normal Exam - Neck Exam Neck Exam: Full ROM, Normal Inspection. absent: Tenderness - Respiratory Exam Respiratory Exam: Clear to Ausculation Bilateral, NORMAL BREATHING PATTERN. absent: Accessory Muscle Use, Rales, Rhonchi, Wheezes, Respiratory Distress, Stridor - Cardiovascular Exam Cardiovascular Exam: REGULAR RHYTHM, +S1, +S2 - GI/Abdominal Exam GI & Abdominal Exam: Soft, Normal Bowel Sounds. absent: Distended, Firm, Guarding, Rigid, Tenderness, Organomegaly, Rebound Additional comments: tube feed, abdominal binder in place - Extremities Exam Extremities Exam: Normal Capillary Refill, Normal Inspection, Pedal Edema. absent: Calf Tenderness - Back Exam Back Exam: NORMAL INSPECTION - Neurological Exam Neurological Exam: Alert, Awake - Skin Skin Exam: Dry, Intact, Normal Color, Warm Assessment and Plan - Assessment and Plan (Free Text) Assessment: 52 yo F with PMHx of DM type II visiting from the [facility] [place] reported to be found unresponsive by on 05/01. Patient intubated on field, brought to ED where CODE STROKE was called. Admitted to ICU for evaluation/monitoring of anoxic brain injury. Patient noted on exam to have ring monge suggestive of attempted suicidal attempt by hanging. [employer] made aware of case and confirm high likelihood of suicide attempt. Patient s/p tracheostomy and PED tube feeding. Patient weaned off ventilator to trach collar with humidif ied oxygen. Downgraded to telemetry for further monitoring. Patient successfully decannulated (07/14), urinary colindres d/c'd with no residual on bladder scan. Making significant progress: able to verbalize more words. Plan: Anoxic Brain Injury- improving clinically - Aspiration precautions - Seizure precautions - Neurology on case, Dr. Duff/Guilherme - Turn and reposition q2h -colindres cath in proper placement for tube feeds -feeds resumed at 20cc/hr -patient successfully decannulated (07/14) -tube feeds; glucerna -continuous feeds at 20cc/hr -Aggressive PT/OT/ST Intermittent vomiting -tube feeds currently on hold -NS IVF -GI recs (Dr. Hilton) appreciated -ok to resume feeds, suggest doing so when patient is upright using strict aspiration precautions -Anti-emetic therapy PRN -Continue with h2 bartolo therapy -If symptoms persist, could also consider empiric anti-fungal therapy for potential candidiasis -No planned GI intervention at this time, no features of clinical malnutrition UTI -UA + -Urine culture prelim: GNR, gram positive cocci -WBC uptrending 14.1 -will start Vanco 1gm IVPB Q24h, Primaxin 250 IVP q6h Acute Renal Injury with oliguria- improving - Likely due to dehydration - No HD needed - Nephrology recs (Dr. 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 -Na level wnl, continue to monitor -correct as needed Hypertension- chronic, stable - No pressors (was previously hypotensive) - Norvasc 10 mg PO daily Respiratory Failure resolved - Due to Asphyxiation - Laryngoscopy (06/18): vocal cords functional - s/p tracheotomy - Consider removal of trach collar - Mucomyst Q4H d/c'd (06/21) - Duonebs Q4H - Suction prn - Humidified O2, continue to wean as tolerated Fevers resolved - Afebrile since 06/04, currently off Abx - Ice packs, cooling blanket - Sputum cultures (05/25): yeast - s/p meropenum 1g Q8H & flagyl 500mg Q8H (total 13 days of treatment) - Motrin 200 mg Q6H PRN NSTEMI resolved - Elevated troponin- has normalized - ASA 81 mg PO daily (restarted 05/25) - Plavix 75mg PO daily (held - given drop in Hb) - Crestor 5 mg PO QHS - Cardiology consulted (Dr Gay) Leukocytosis resolved - Repeat CXR (05/21): slightly low lung volumes with mild crowded bronchovascular markings and minor bibasilar atelectasis - BCx (05/02): no growth - Repeat BCx (05/17): no growth - UA: leuk est 3+, +WBC, +RBC, nitrate - - UCx 05/06/18: no growth -repeat UCx (05/13, 05/17): yeast species - Tracheal Aspirate Cx 05/08/18: yeast - Colindres changed 05/17 - Doppler b/l UE and LE: negative for DVTs Hyperkalemia resolved - Continue to monitor, correct as needed Constipation, resolved - reported BM 06/28 - Senokot BID - Dulcolax 10 mg [place] TID PRN - Lactulose 20 mg PO daily PRN - PEG 17gm GT bid - Flat Plate Abd (06/26): normal bowel gas pattern PPx, Diet, Disposition - DVT ppx: Heparin 5,000 Units SC Q8H - GI ppx: Pepcid 20mg GT bid - Diet: Tube feed, Glucerna 1.5, honey thick liquids (pleasure feeds only, per swallow eval) - Vitamin A&D - Code status: full code Case discussed with Dr. Kori Miles DO, PGY-1 <Yann Sheikh H - Last Filed: 07/15/18 15:33> Objective - Vital Signs/Intake and Output Vital Signs (last 24 hours): Temp Pulse Resp BP Pulse Ox 98 F 101 H 20 119/68 99 07/15/18 07:33 07/15/18 07:33 07/15/18 07:33 07/15/18 07:33 07/15/18 07:33 Intake and Output: 07/15/18 07/15/18 06:59 18:59 Intake Total 160 Balance 160 - Medications Medications: Current Medications Acetaminophen (Tylenol 650mg/20.3ml Solution Ud) 650 mg GT Q6 PRN PRN Reason: Temperature, Fever >100.4 F Albuterol/Ipratropium (Duoneb 3 Mg/0.5 Mg (3 Ml) Ud) 3 ml INH RQ4 [facility] Last Admin: 07/15/18 12:05 Dose: 3 ml Amlodipine Besylate (Norvasc) 10 mg PO DAILY [facility] Last Admin: 07/15/18 10:59 Dose: Not Given Aspirin (Aspirin Chewable) 81 mg PO DAILY [facility] Last Admin: 07/15/18 10:59 Dose: Not Given Clopidogrel Bisulfate (Plavix) 75 mg PO DAILY [facility] Last Admin: 05/22/18 10:07 Dose: 75 mg Dextrose (Dextrose 50% Inj) 0 ml IV STAT PRN; Protocol PRN Reason: Hypoglycemia Protocol Last Admin: 06/21/18 16:15 Dose: 50 ml Dextrose (Glutose 15) 15 gm PO ONCE PRN; Protocol PRN Reason: Hypoglycemia Protocol Famotidine (Pepcid) 20 mg GT BID [facility] Last Admin: 07/15/18 11:00 Dose: Not Given Glucagon (Glucagen Diagnostic Kit) 1 mg IM STAT PRN; Protocol PRN Reason: Hypoglycemia Protocol Sodium Chloride (Sodium Chloride 0.9%) 1,000 mls @ 250 mls/hr IV .Q4H ONE Stop: 07/15/18 17:58 Last Admin: 07/15/18 14:10 Dose: 250 mls/hr Imipenem/Cilastatin Sodium 250 (mg/ Dextrose) 100 mls @ 100 mls/hr IVPB Q6H [facility]; Protocol Vancomycin HCl 1 gm/ Sodium (Chloride) 250 mls @ 166.7 mls/hr IVPB Q24H [facility]; Protocol Ibuprofen (Motrin Oral Susp) 200 mg PO Q6H PRN PRN Reason: Fever >100.4 F Last Admin: 07/14/18 09:40 Dose: 200 mg Insulin Aspart (Novolog) 0 unit SC [facility]; Protocol Last Admin: 07/15/18 13:07 Dose: Not Given Insulin Glargine (Lantus) 40 unit SC [facility] Last Admin: 06/25/18 22:02 Dose: Not Given Insulin Human Isoph/Insulin Regular (Novolin 70/30 (70/30 Units/Ml) 10 Ml) 15 units SC BID [facility] Last Admin: 06/26/18 09:27 Dose: 15 units Metoprolol Tartrate (Lopressor) 75 mg PO BID [facility] Last Admin: 07/15/18 10:59 Dose: Not Given Ondansetron HCl (Zofran Inj) 4 mg IVP Q6H PRN PRN Reason: Nausea/Vomiting Polyethylene Glycol (Miralax) 17 gm GT BID [facility] Last Admin: 07/15/18 10:59 Dose: Not Given Potassium Chloride (Potassium Chloride Oral Soln) 20 meq PO DAILY [facility] Last Admin: 07/15/18 11:00 Dose: Not Given Rosuvastatin Calcium (Crestor) 5 mg PO [facility] Last Admin: 07/14/18 22:42 Dose: 5 mg Senna/Docusate Sodium (Senokot S 50 Mg-8.6 Mg) 1 tab PO BID [facility] Last Admin: 01/05/19 17:58 Dose: 1 tab Vitamin A (Vitamin A & D Oint Ud Foilpak) 1 ea TOP BID PRN PRN Reason: Dry skin Last Admin: 06/13/18 10:47 Dose: 1 ea - Labs Labs: 07/15/18 07:00 07/15/18 07:00 PT 16.8 SECONDS (9.7-12.2) H 05/28/18 07:15 INR 1.5 05/28/18 07:15 APTT 34 SECONDS (21-34) 05/28/18 07:15 Attending/Attestation - Attestation I have personally seen and examined this patient.: Yes I have fully participated in the care of the patient.: Yes I have reviewed all pertinent clinical information, including history, physical exam and plan: Yes Notes (Text): 07/15/18 15:25 Medical attending: Patient was seen and examined by me. Agree with the above note by the resident The patient was not in any acute distress when we came and saw. Now decanulation and doing ok We will have a new swallow trial to see how she does - if she does ok then maybe we can remove the PEG Yann Sheikh
[2018-07-15 07:34] LABS: HEMOGLOBIN 9.5 g/dL (11.0-16.0); LYMPH % 10.1 % (20.0-40.0); MEAN CELL VOLUME 83.6 fL (81.0-99.0); MEAN CORPUSCULAR HGB CONC 32.3 g/dL (33.0-37.0); MEAN PLATELET VOLUME 10.6 fL (7.2-11.7); MONO # 0.5 K/uL (0.0-0.8); MONO % 3.8 % (0.0-10.0); NEUT # 11.8 K/uL (1.8-7.0); NEUT % 84.1 % (50.0-75.0); NRBC % 0.1 % (0.0-2.0); RBC 3.52 Mil/uL (3.80-5.20); RED CELL DISTRIBUTION WIDTH 16.1 % (11.5-14.5); WHITE BLOOD COUNT 14.1 K/uL (4.8-10.8)
[2018-07-15 07:55] LABS: ALBUMIN 3.5 g/dL (3.5-5.0); ALT/SGPT 29 U/L (9-52); AST/SGOT 31 U/L (14-36); BLOOD UREA NITROGEN 9 mg/dL (7-17); CALCIUM 8.9 mg/dl (8.6-10.4); GFR NON-AFRICAN AMERICAN > 60
[2018-07-15] MEDS: POLYETHYLENE GLYCOL 3350 17 GM/Dose PACKET GT SCH ×2 (10:59→22:28)
[2018-07-15] MEDS: Potassium Chloride 20 mEq/15 ml LIQ UD PO SCH (11:00)
[2018-07-15] MEDS ORDERED: Sodium Chloride 0.9% 1,000 ML IV ONE (13:59)
[2018-07-15] MEDS: (Lantus) Insulin Glargine, Recombinant SC SCH (22:13)
[2018-07-16] MEDS: Albuterol-Ipratrop 3 mg / 0.5 (3 ml) UD INH SCH ×4 (01:14→19:50)
[2018-07-16 06:45] LABS: BASO % 0.3 % (0.0-2.0); EOS # 0.1 K/uL (0.0-0.7); EOS % 1.1 % (0.0-4.0); LYMPH # 0.5 K/uL (1.0-4.3); LYMPH % 5.2 % (20.0-40.0); MEAN CELL VOLUME 82.9 fL (81.0-99.0); MEAN CORPUSCULAR HEMOGLOBIN 27.4 pg (27.0-31.0); MEAN PLATELET VOLUME 10.1 fL (7.2-11.7); MONO # 0.4 K/uL (0.0-0.8); MONO % 3.6 % (0.0-10.0); NEUT # 8.7 K/uL (1.8-7.0); NEUT % 89.8 % (50.0-75.0); PLATELET COUNT 262 K/uL (130-400); RBC 3.27 Mil/uL (3.80-5.20); RED CELL DISTRIBUTION WIDTH 16.6 % (11.5-14.5); WHITE BLOOD COUNT 9.7 K/uL (4.8-10.8)
[2018-07-16 07:03] LABS: ALB/GLOB RATIO 0.9 (1.0-2.1); ALT/SGPT 32 U/L (9-52); AST/SGOT 23 U/L (14-36); BLOOD UREA NITROGEN 5 mg/dL (7-17); CALCIUM 8.5 mg/dl (8.6-10.4); GFR NON-AFRICAN AMERICAN > 60
[2018-07-16] MEDS ORDERED: Sodium Chloride 0.9% 1,000 ML IV ONE (07:44)
--- NOTE | 2018-07-16 07:44 | CP.PCM.PN ---
Subjective - Date & Time of Evaluation Date of Evaluation: 07/16/18 Time of Evaluation: 07:43 - Subjective Subjective: PGY-1 Medicine Progress Note for Dr. Sheikh Objective - Vital Signs/Intake and Output Vital Signs (last 24 hours): Temp Pulse Resp BP Pulse Ox 98.2 F 78 20 125/64 97 07/16/18 00:00 07/16/18 00:00 07/16/18 00:00 07/16/18 00:00 07/16/18 00:00 Intake and Output: 07/16/18 07/16/18 06:59 18:59 Intake Total 2250 Balance 2250 - Medications Medications: Current Medications Acetaminophen (Tylenol 650mg/20.3ml Solution Ud) 650 mg GT Q6 PRN PRN Reason: Temperature, Fever >100.4 F Albuterol/Ipratropium (Duoneb 3 Mg/0.5 Mg (3 Ml) Ud) 3 ml INH RQ4 [facility] Last Admin: 07/16/18 04:18 Dose: 3 ml Amlodipine Besylate (Norvasc) 10 mg PO DAILY [facility] Last Admin: 07/15/18 10:59 Dose: Not Given Aspirin (Aspirin Chewable) 81 mg PO DAILY [facility] Last Admin: 07/15/18 10:59 Dose: Not Given Clopidogrel Bisulfate (Plavix) 75 mg PO DAILY [facility] Last Admin: 05/22/18 10:07 Dose: 75 mg Dextrose (Dextrose 50% Inj) 0 ml IV STAT PRN; Protocol PRN Reason: Hypoglycemia Protocol Last Admin: 06/21/18 16:15 Dose: 50 ml Dextrose (Glutose 15) 15 gm PO ONCE PRN; Protocol PRN Reason: Hypoglycemia Protocol Famotidine (Pepcid) 20 mg GT BID [facility] Last Admin: 07/15/18 22:38 Dose: 20 mg Glucagon (Glucagen Diagnostic Kit) 1 mg IM STAT PRN; Protocol PRN Reason: Hypoglycemia Protocol Imipenem/Cilastatin Sodium 250 (mg/ Sodium Chloride) 100 mls @ 100 mls/hr IVPB Q6H [facility]; Protocol Last Admin: 07/16/18 04:18 Dose: 100 mls/hr Vancomycin HCl 1 gm/ Sodium (Chloride) 250 mls @ 166.7 mls/hr IVPB Q24H [facility]; Protocol Last Admin: 07/15/18 17:44 Dose: 166.7 mls/hr Ibuprofen (Motrin Oral Susp) 200 mg PO Q6H PRN PRN Reason: Fever >100.4 F Last Admin: 07/14/18 09:40 Dose: 200 mg Insulin Aspart (Novolog) 0 unit SC [facility]; Protocol Last Admin: 07/15/18 22:31 Dose: Not Given Insulin Glargine (Lantus) 40 unit SC [facility] Last Admin: 07/15/18 22:13 Dose: Not Given Insulin Human Isoph/Insulin Regular (Novolin 70/30 (70/30 Units/Ml) 10 Ml) 15 units SC BID [facility] Last Admin: 06/26/18 09:27 Dose: 15 units Metoprolol Tartrate (Lopressor) 75 mg PO BID [facility] Last Admin: 07/15/18 22:18 Dose: 75 mg Ondansetron HCl (Zofran Inj) 4 mg IVP Q6H PRN PRN Reason: Nausea/Vomiting Last Admin: 07/16/18 04:08 Dose: 4 mg Polyethylene Glycol (Miralax) 17 gm GT BID [facility] Last Admin: 07/15/18 22:28 Dose: Not Given Potassium Chloride (Potassium Chloride Oral Soln) 20 meq PO DAILY [facility] Last Admin: 07/15/18 11:00 Dose: Not Given Rosuvastatin Calcium (Crestor) 5 mg PO [facility] Last Admin: 07/15/18 22:13 Dose: 5 mg Senna/Docusate Sodium (Senokot S 50 Mg-8.6 Mg) 1 tab PO BID [facility] Last Admin: 07/10/18 17:58 Dose: 1 tab Vitamin A (Vitamin A & D Oint Ud Foilpak) 1 ea TOP BID PRN PRN Reason: Dry skin Last Admin: 06/13/18 10:47 Dose: 1 ea - Labs Labs: 07/16/18 06:37 07/16/18 06:37 PT 16.8 SECONDS (9.7-12.2) H 05/28/18 07:15 INR 1.5 05/28/18 07:15 APTT 34 SECONDS (21-34) 05/28/18 07:15
--- NOTE | 2018-07-16 07:52 | CP.PCM.PN ---
<Montez Miles - Last Filed: 07/16/18 16:15> Subjective - Date & Time of Evaluation Date of Evaluation: 07/16/18 Time of Evaluation: 07:52 - Subjective Subjective: PGY-1 Medicine Progress Note for Dr. Sheikh Patient seen and examined at bedside this AM, in great spirits. No acute overnight events reported. No new episodes of vomiting reported, tube feeds to be resumed at 20 cc/hr. Awaiting barium swallow evaluation, per swallow evaluation. 14 tsp sips of water via spoon are ok for now. Objective - Vital Signs/Intake and Output Vital Signs (last 24 hours): Temp Pulse Resp BP Pulse Ox 98.2 F 78 20 125/64 97 07/16/18 00:00 07/16/18 00:00 07/16/18 00:00 07/16/18 00:00 07/16/18 00:00 Intake and Output: 07/16/18 07/16/18 06:59 18:59 Intake Total 2250 Balance 2250 - Medications Medications: Current Medications Acetaminophen (Tylenol 650mg/20.3ml Solution Ud) 650 mg GT Q6 PRN PRN Reason: Temperature, Fever >100.4 F Albuterol/Ipratropium (Duoneb 3 Mg/0.5 Mg (3 Ml) Ud) 3 ml INH RQ4 [facility] Last Admin: 07/16/18 04:18 Dose: 3 ml Amlodipine Besylate (Norvasc) 10 mg PO DAILY [facility] Last Admin: 07/15/18 10:59 Dose: Not Given Aspirin (Aspirin Chewable) 81 mg PO DAILY [facility] Last Admin: 07/15/18 10:59 Dose: Not Given Clopidogrel Bisulfate (Plavix) 75 mg PO DAILY [facility] Last Admin: 05/22/18 10:07 Dose: 75 mg Dextrose (Dextrose 50% Inj) 0 ml IV STAT PRN; Protocol PRN Reason: Hypoglycemia Protocol Last Admin: 06/21/18 16:15 Dose: 50 ml Dextrose (Glutose 15) 15 gm PO ONCE PRN; Protocol PRN Reason: Hypoglycemia Protocol Famotidine (Pepcid) 20 mg GT BID [facility] Last Admin: 07/15/18 22:38 Dose: 20 mg Glucagon (Glucagen Diagnostic Kit) 1 mg IM STAT PRN; Protocol PRN Reason: Hypoglycemia Protocol Imipenem/Cilastatin Sodium 250 (mg/ Sodium Chloride) 100 mls @ 100 mls/hr IVPB Q6H [facility]; Protocol Last Admin: 07/16/18 04:18 Dose: 100 mls/hr Vancomycin HCl 1 gm/ Sodium (Chloride) 250 mls @ 166.7 mls/hr IVPB Q24H [facility]; Protocol Last Admin: 07/15/18 17:44 Dose: 166.7 mls/hr Sodium Chloride (Sodium Chloride 0.9%) 1,000 mls @ 125 mls/hr IV .Q8H ONE Stop: 07/16/18 15:43 Ibuprofen (Motrin Oral Susp) 200 mg PO Q6H PRN PRN Reason: Fever >100.4 F Last Admin: 07/14/18 09:40 Dose: 200 mg Insulin Aspart (Novolog) 0 unit SC [facility]; Protocol Last Admin: 07/15/18 22:31 Dose: Not Given Insulin Glargine (Lantus) 40 unit SC [facility] Last Admin: 07/15/18 22:13 Dose: Not Given Insulin Human Isoph/Insulin Regular (Novolin 70/30 (70/30 Units/Ml) 10 Ml) 15 units SC BID [facility] Last Admin: 06/26/18 09:27 Dose: 15 units Metoprolol Tartrate (Lopressor) 75 mg PO BID [facility] Last Admin: 07/15/18 22:18 Dose: 75 mg Ondansetron HCl (Zofran Inj) 4 mg IVP Q6H PRN PRN Reason: Nausea/Vomiting Last Admin: 07/16/18 04:08 Dose: 4 mg Polyethylene Glycol (Miralax) 17 gm GT BID [facility] Last Admin: 07/15/18 22:28 Dose: Not Given Potassium Chloride (Potassium Chloride Oral Soln) 20 meq PO DAILY [facility] Last Admin: 07/15/18 11:00 Dose: Not Given Rosuvastatin Calcium (Crestor) 5 mg PO HS [facility] Last Admin: 07/15/18 22:13 Dose: 5 mg Senna/Docusate Sodium (Senokot S 50 Mg-8.6 Mg) 1 tab PO BID [facility] Last Admin: 07/10/18 17:58 Dose: 1 tab Vitamin A (Vitamin A & D Oint Ud Foilpak) 1 ea TOP BID PRN PRN Reason: Dry skin Last Admin: 06/13/18 10:47 Dose: 1 ea - Labs Labs: 07/16/18 06:37 07/16/18 06:37 PT 16.8 SECONDS (9.7-12.2) H 05/28/18 07:15 INR 1.5 05/28/18 07:15 APTT 34 SECONDS (21-34) 05/28/18 07:15 - Constitutional Appears: Non-toxic, No Acute Distress, Chronically Ill - Head Exam Head Exam: ATRAUMATIC, NORMAL INSPECTION, NORMOCEPHALIC - Eye Exam Eye Exam: EOMI, Normal appearance Pupil Exam: NORMAL ACCOMODATION - ENT Exam ENT Exam: Mucous Membranes Moist, Normal Exam - Neck Exam Neck Exam: Full ROM, Normal Inspection - Respiratory Exam Respiratory Exam: Clear to Ausculation Bilateral, NORMAL BREATHING PATTERN. absent: Accessory Muscle Use, Rales, Rhonchi, Wheezes, Respiratory Distress, Stridor - Cardiovascular Exam Cardiovascular Exam: REGULAR RHYTHM, +S1, +S2 - GI/Abdominal Exam GI & Abdominal Exam: Soft, Normal Bowel Sounds. absent: Distended, Firm, Guarding, Rigid, Tenderness, Organomegaly, Rebound Additional comments: tube feed in place - Extremities Exam Extremities Exam: Normal Capillary Refill, Normal Inspection. absent: Calf Tenderness, Pedal Edema Additional comments: contracted extremities - Back Exam Back Exam: NORMAL INSPECTION - Neurological Exam Neurological Exam: Alert, Awake, Oriented x3 - Psychiatric Exam Psychiatric exam: Normal Affect, Normal Mood - Skin Skin Exam: Dry, Intact, Normal Color, Warm Assessment and Plan - Assessment and Plan (Free Text) Assessment: 52 yo F with PMHx of DM type II visiting from the [facility] reported to be found unresponsive by on 05/01. Patient intubated on field, brought to ED where CODE STROKE was called. Admitted to ICU for evalua tion/monitoring of anoxic brain injury. Patient noted on exam to have ring monge suggestive of attempted suicidal attempt by hanging. [employer] made aware of case and confirm high likelihood of suicide attempt. Patient s/p tracheostomy and PED tube feeding. Patient weaned off ventilator to trach collar with humidified oxygen. Downgraded to telemetry for further monitoring. Patient successfully decannulated (07/14), urinary colindres d/c'd with no residual on bladder scan. Making significant progress: able to verbalize more words. Plan: Anoxic Brain Injury- improving clinically - Aspiration precautions - Seizure precautions - Neurology on case, Dr. Duff/Guilherme - Turn and reposition q2h -colindres cath in proper placement for tube feeds -feeds resumed at 20cc/hr -patient successfully decannulated (07/14) -tube feeds; glucerna -continuous feeds at 20cc/hr -Aggressive PT/OT/ST Intermittent vomiting -tube feeds resumed -f/u barium swallow eval -NS IVF -GI recs (Dr. Hilton) appreciated -ok to resume feeds, suggest doing so when patient is upright using strict aspiration precautions -Anti-emetic therapy PRN -Continue with h2 bartolo therapy -If symptoms persist, could also consider empiric anti-fungal therapy for po tential candidiasis -No planned GI intervention at this time, no features of clinical malnutrition UTI -UA + -Urine culture: E coli, enterococcus faecalis -WBC uptrending 14.1-->9.7, continue to monitor -c/w Vanco 1gm IVPB Q24h, Primaxin 250 IVP q6h Acute Renal Injury with oliguria- improving - Likely due to dehydration - No HD needed - Nephrology recs (Dr. 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 -Na level wnl, continue to monitor -correct as needed Hypertension- chronic, stable - No pressors (was previously hypotensive) - Norvasc 10 mg PO daily Respiratory Failure resolved - Due to Asphyxiation - Laryngoscopy (06/18): vocal cords functional - s/p tracheotomy - Consider removal of trach collar - Mucomyst Q4H d/c'd (06/21) - Duonebs Q4H - Suction prn - Humidified O2, continue to wean as tolerated Fevers resolved - Afebrile since 06/04, currently off Abx - Ice packs, cooling blanket - Sputum cultures (05/25): yeast - s/p meropenum 1g Q8H & flagyl 500mg Q8H (total 13 days of treatment) - Motrin 200 mg Q6H PRN NSTEMI resolved - Elevated troponin- has normalized - ASA 81 mg PO daily (restarted 05/25) - Plavix 75mg PO daily (held - given drop in Hb) - Crestor 5 mg PO QHS - Cardiology consulted (Dr Gay) Leukocytosis resolved - Repeat CXR (05/21): slightly low lung volumes with mild crowded bronchovascu lar markings and minor bibasilar atelectasis - BCx (05/02): no growth - Repeat BCx (05/17): no growth - UA: leuk est 3+, +WBC, +RBC, nitrate - - UCx 05/06/18: no growth -repeat UCx (05/13, 05/17): yeast species - Tracheal Aspirate Cx 05/08/18: yeast - Colindres changed 05/17 - Doppler b/l UE and LE: negative for DVTs Hyperkalemia resolved - Continue to monitor, correct as needed Constipation, resolved - reported BM 06/28 - Senokot BID - Dulcolax 10 mg NC TID PRN - Lactulose 20 mg PO daily PRN - PEG 17gm GT bid - Flat Plate Abd (06/26): normal bowel gas pattern PPx, Diet, Disposition - DVT ppx: Heparin 5,000 Units SC Q8H - GI ppx: Pepcid 20mg GT bid - Diet: Tube feed, Glucerna 1.5, honey thick liquids (pleasure feeds only, per swallow eval) - Vitamin A&D - Code status: full code Case discussed with Dr. Kori Miles DO, PGY-1 <Yann Sheikh H - Last Filed: 07/16/18 16:32> Objective - Vital Signs/Intake and Output Vital Signs (last 24 hours): Temp Pulse Resp BP Pulse Ox 97.8 F 69 20 124/66 98 07/16/18 16:00 07/16/18 16:00 07/16/18 16:00 07/16/18 16:00 07/16/18 16:00 Intake and Output: 07/16/18 07/16/18 06:59 18:59 Intake Total 2250 Balance 2250 - Medications Medications: Current Medications Acetaminophen (Tylenol 650mg/20.3ml Solution Ud) 650 mg GT Q6 PRN PRN Reason: Temperature, Fever >100.4 F Albuterol/Ipratropium (Duoneb 3 Mg/0.5 Mg (3 Ml) Ud) 3 ml INH RQ4 [facility] Last Admin: 07/16/18 04:18 Dose: 3 ml Amlodipine Besylate (Norvasc) 10 mg PO DAILY [facility] Last Admin: 07/16/18 11:13 Dose: 10 mg Aspirin (Aspirin Chewable) 81 mg PO DAILY [facility] Last Admin: 07/16/18 11:13 Dose: 81 mg Clopidogrel Bisulfate (Plavix) 75 mg PO DAILY [facility] Last Admin: 05/22/18 10:07 Dose: 75 mg Dextrose (Dextrose 50% Inj) 0 ml IV STAT PRN; Protocol PRN Reason: Hypoglycemia Protocol Last Admin: 06/21/18 16:15 Dose: 50 ml Dextrose (Glutose 15) 15 gm PO ONCE PRN; Protocol PRN Reason: Hypoglycemia Protocol Famotidine (Pepcid) 20 mg GT BID [facility] Last Admin: 07/16/18 11:12 Dose: 20 mg Glucagon (Glucagen Diagnostic Kit) 1 mg IM STAT PRN; Protocol PRN Reason: Hypoglycemia Protocol Imipenem/Cilastatin Sodium 250 (mg/ Sodium Chloride) 100 mls @ 100 mls/hr IVPB Q6H [facility]; Protocol Last Admin: 07/16/18 10:54 Dose: 100 mls/hr Vancomycin HCl 1 gm/ Sodium (Chloride) 250 mls @ 166.7 mls/hr IVPB Q24H [facility]; Protocol Last Admin: 07/15/18 17:44 Dose: 166.7 mls/hr Ibuprofen (Motrin Oral Susp) 200 mg PO Q6H PRN PRN Reason: Fever >100.4 F Last Admin: 07/14/18 09:40 Dose: 200 mg Insulin Aspart (Novolog) 0 unit SC [facility]; Protocol Last Admin: 07/16/18 12:00 Dose: Not Given Insulin Glargine (Lantus) 40 unit SC HS [facility] Last Admin: 07/15/18 22:13 Dose: Not Given Insulin Human Isoph/Insulin Regular (Novolin 70/30 (70/30 Units/Ml) 10 Ml) 15 units SC BID [facility] Last Admin: 06/26/18 09:27 Dose: 15 units Metoprolol Tartrate (Lopressor) 75 mg PO BID [facility] Last Admin: 07/16/18 11:12 Dose: 75 mg Ondansetron HCl (Zofran Inj) 4 mg IVP Q6H PRN PRN Reason: Nausea/Vomiting Last Admin: 07/16/18 11:13 Dose: 4 mg Polyethylene Glycol (Miralax) 17 gm GT BID [facility] Last Admin: 07/16/18 11:13 Dose: 17 gm Potassium Chloride (Potassium Chloride Oral Soln) 20 meq PO DAILY [facility] Last Admin: 07/16/18 12:00 Dose: 20 meq Rosuvastatin Calcium (Crestor) 5 mg PO HS [facility] Last Admin: 07/15/18 22:13 Dose: 5 mg Senna/Docusate Sodium (Senokot S 50 Mg-8.6 Mg) 1 tab PO BID [facility] Last Admin: 07/10/18 17:58 Dose: 1 tab Vitamin A (Vitamin A & D Oint Ud Foilpak) 1 ea TOP BID PRN PRN Reason: Dry skin Last Admin: 06/13/18 10:47 Dose: 1 ea - Labs Labs: 07/16/18 06:37 07/16/18 06:37 PT 16.8 SECONDS (9.7-12.2) H 05/28/18 07:15 INR 1.5 05/28/18 07:15 APTT 34 SECONDS (21-34) 05/28/18 07:15 Attending/Attestation - Attestation I have personally seen and examined this patient.: Yes I have fully participated in the care of the patient.: Yes I have reviewed all pertinent clinical information, including history, physical exam and plan: Yes Notes (Text): 07/16/18 16:31 Medical attending : Patient was seen and examined by me, agree with the above note by the resident The patient was not in any acute distress when I came and saw her. Speech and Swallow has advised for a barium study swallow and I ordered this for Thursday WBC has decreased, she is currently on IV abx Yann Sheikh
[2018-07-16] MEDS: (Novolog) Insulin Aspart, Recombinant 100 u/ml 10 ml vial SC SCH ×4 (08:42→22:57)
[2018-07-16 09:15] LABS: ANISOCYTOSIS SLIGHT; LYMPHOCYTE 8 % (20-40); MONOCYTE 5 % (0-10); NEUTROPHIL 87 % (50-75); PLATELET ESTIMATE NORMAL (NORMAL); TOTAL CELLS COUNTED 100
[2018-07-16 09:16] LABS: POLYCHROMIC SLIGHT
[2018-07-16 09:18] LABS: HYPOCHROMIC MODERATE
[2018-07-16] MEDS: POLYETHYLENE GLYCOL 3350 17 GM/Dose PACKET GT SCH ×2 (11:13→22:24)
[2018-07-16] MEDS: Potassium Chloride 20 mEq/15 ml LIQ UD PO SCH (12:00)
[2018-07-16] MEDS: Acetaminophen 650mg/20.3ml solution UD GT PRN (17:19)
[2018-07-16] MEDS: (Lantus) Insulin Glargine, Recombinant SC SCH ×2 (22:24→22:25)
[2018-07-17] MEDS: Albuterol-Ipratrop 3 mg / 0.5 (3 ml) UD INH SCH ×6 (00:43→20:45)
[2018-07-17 07:15] LABS: BASO % 0.5 % (0.0-2.0); EOS # 0.2 K/uL (0.0-0.7); HEMOGLOBIN 8.4 g/dL (11.0-16.0); LYMPH # 1.2 K/uL (1.0-4.3); LYMPH % 13.6 % (20.0-40.0); MEAN CELL VOLUME 83.2 fL (81.0-99.0); MEAN CORPUSCULAR HEMOGLOBIN 27.4 pg (27.0-31.0); MEAN PLATELET VOLUME 10.2 fL (7.2-11.7); MONO # 0.6 K/uL (0.0-0.8); MONO % 6.4 % (0.0-10.0); NEUT # 6.8 K/uL (1.8-7.0); NEUT % 77.5 % (50.0-75.0); RBC 3.05 Mil/uL (3.80-5.20); RED CELL DISTRIBUTION WIDTH 16.4 % (11.5-14.5); WHITE BLOOD COUNT 8.7 K/uL (4.8-10.8)
[2018-07-17 07:43] LABS: ALB/GLOB RATIO 0.9 (1.0-2.1); ALBUMIN 2.8 g/dL (3.5-5.0); ALT/SGPT 49 U/L (9-52); AST/SGOT 44 U/L (14-36); BLOOD UREA NITROGEN 5 mg/dL (7-17); CALCIUM 8.5 mg/dl (8.6-10.4); GFR NON-AFRICAN AMERICAN > 60
[2018-07-17] MEDS: (Novolog) Insulin Aspart, Recombinant 100 u/ml 10 ml vial SC SCH ×4 (08:30→22:33)
--- NOTE | 2018-07-17 09:15 | CP.PCM.PN ---
Subjective - Date & Time of Evaluation Date of Evaluation: 07/17/18 Time of Evaluation: 09:11 - Subjective Subjective: PGY-[address] Vick Kerns service Patient is seen and examined at bedside. Denies any acute events and has no complaints. Family is at bedside, and reports patient was previously complaining of leg cramps, as well as loose bowel movements. Patient continues tube feeds at 20cc/hr. no vomiting is reported by family. barium swallow evaluation pending. Objective - Vital Signs/Intake and Output Vital Signs (last 24 hours): Temp Pulse Resp BP Pulse Ox 98.1 F 82 20 164/82 H 100 07/17/18 08:00 07/17/18 08:00 07/17/18 08:00 07/17/18 08:00 07/17/18 08:00 Intake and Output: 07/17/18 07/17/18 06:59 18:59 Intake Total 610 480 Balance 610 480 - Medications Medications: Current Medications Acetaminophen (Tylenol 650mg/20.3ml Solution Ud) 650 mg GT Q6 PRN PRN Reason: Temperature, Fever >100.4 F Last Admin: 07/16/18 17:19 Dose: 650 mg Albuterol/Ipratropium (Duoneb 3 Mg/0.5 Mg (3 Ml) Ud) 3 ml INH RQ4 [facility] Last Admin: 07/17/18 08:35 Dose: 3 ml Amlodipine Besylate (Norvasc) 10 mg PO DAILY [facility] Last Admin: 07/16/18 11:13 Dose: 10 mg Aspirin (Aspirin Chewable) 81 mg PO DAILY [facility] Last Admin: 07/16/18 11:13 Dose: 81 mg Clopidogrel Bisulfate (Plavix) 75 mg PO DAILY [facility] Last Admin: 05/22/18 10:07 Dose: 75 mg Dextrose (Dextrose 50% Inj) 0 ml IV STAT PRN; Protocol PRN Reason: Hypoglycemia Protocol Last Admin: 06/21/18 16:15 Dose: 50 ml Dextrose (Glutose 15) 15 gm PO ONCE PRN; Protocol PRN Reason: Hypoglycemia Protocol Famotidine (Pepcid) 20 mg GT BID [facility] Last Admin: 07/16/18 17:20 Dose: 20 mg Glucagon (Glucagen Diagnostic Kit) 1 mg IM STAT PRN; Protocol PRN Reason: Hypoglycemia Protocol Imipenem/Cilastatin Sodium 250 (mg/ Sodium Chloride) 100 mls @ 100 mls/hr IVPB Q6H [facility]; Protocol Last Admin: 07/17/18 03:46 Dose: 100 mls/hr Vancomycin HCl 1 gm/ Sodium (Chloride) 250 mls @ 166.7 mls/hr IVPB Q24H [facility]; Protocol Last Admin: 07/16/18 17:22 Dose: 166.7 mls/hr Ibuprofen (Motrin Oral Susp) 200 mg PO Q6H PRN PRN Reason: Fever >100.4 F Last Admin: 07/14/18 09:40 Dose: 200 mg Insulin Aspart (Novolog) 0 unit SC [facility]; Protocol Last Admin: 07/16/18 22:57 Dose: Not Given Insulin Glargine (Lantus) 40 unit SC [facility] Last Admin: 07/16/18 22:25 Dose: 40 u Insulin Human Isoph/Insulin Regular (Novolin 70/30 (70/30 Units/Ml) 10 Ml) 15 units SC BID [facility] Last Admin: 06/26/18 09:27 Dose: 15 units Metoprolol Tartrate (Lopressor) 75 mg PO BID [facility] Last Admin: 07/16/18 17:20 Dose: 75 mg Ondansetron HCl (Zofran Inj) 4 mg IVP Q6H PRN PRN Reason: Nausea/Vomiting Last Admin: 07/16/18 11:13 Dose: 4 mg Polyethylene Glycol (Miralax) 17 gm GT BID [facility] Last Admin: 07/16/18 22:24 Dose: Not Given Potassium Chloride (Potassium Chloride Oral Soln) 20 meq PO DAILY [facility] Last Admin: 07/16/18 12:00 Dose: 20 meq Rosuvastatin Calcium (Crestor) 5 mg PO [facility] Last Admin: 07/16/18 22:04 Dose: 5 mg Senna/Docusate Sodium (Senokot S 50 Mg-8.6 Mg) 1 tab PO BID [facility] Last Admin: 07/10/18 17:58 Dose: 1 tab Vitamin A (Vitamin A & D Oint Ud Foilpak) 1 ea TOP BID PRN PRN Reason: Dry skin Last Admin: 06/13/18 10:47 Dose: 1 ea - Labs Labs: 07/17/18 07:10 07/17/18 07:10 PT 16.8 SECONDS (9.7-12.2) H 05/28/18 07:15 INR 1.5 05/28/18 07:15 APTT 34 SECONDS (21-34) 05/28/18 07:15 - Constitutional Appears: Non-toxic, No Acute Distress, Chronically Ill - Head Exam Head Exam: ATRAUMATIC, NORMAL INSPECTION, NORMOCEPHALIC - Eye Exam Eye Exam: EOMI, Normal appearance - ENT Exam ENT Exam: Mucous Membranes Moist, Normal Exam - Neck Exam Neck Exam: Full ROM, Normal Inspection - Respiratory Exam Respiratory Exam: Clear to Ausculation Bilateral, NORMAL BREATHING PATTERN. absent: Rales, Rhonchi, Wheezes - Cardiovascular Exam Cardiovascular Exam: REGULAR RHYTHM, +S1, +S2 - GI/Abdominal Exam GI & Abdominal Exam: Soft, Normal Bowel Sounds. absent: Distended, Tenderness Additional comments: tube feeds, abdominal binder in place - Neurological Exam Neurological Exam: Alert, Awake - Psychiatric Exam Psychiatric exam: Normal Mood - Skin Skin Exam: Dry, Intact, Normal Color, Warm Assessment and Plan - Assessment and Plan (Free Text) Plan: Anoxic Brain Injury- improving clinically - Aspiration precautions - Seizure precautions - Neurology on case, Dr. Duff/Guilherme - Turn and reposition q2h -colindres cath in proper placement for tube feeds -feeds resumed at 20cc/hr -patient successfully decannulated (07/14) -tube feeds; glucerna -continuous feeds at 20cc/hr -Aggressive PT/OT/ST Intermittent vomiting -tube feeds resumed -f/u barium swallow eval -NS IVF -GI recs (Dr. Hilton) appreciated -ok to resume feeds, suggest doing so when patient is upright using strict aspiration precautions -Anti-emetic therapy PRN -Continue with h2 bartolo therapy -If symptoms persist, could also consider empiric anti-fungal therapy for potential candidiasis -No planned GI intervention at this time, no features of clinical malnutrition Hypokalemia - 2/2 loose bowels last night - K today 07/17 3.5 - Kdur 20meq daily - replete as needed, continue to monitor CMP UTI -UA + -Urine culture: E coli, enterococcus faecalis -WBC uptrending 14.1-->9.7, continue to monitor -c/w Vanco 1gm IVPB Q24h, Primaxin 250 IVP q6h Acute Renal Injury with oliguria- improving - Likely due to dehydration - No HD needed - Nephrology recs (Dr. 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 -Na level wnl, continue to monitor -correct as needed Hypertension- chronic, stable - No pressors (was previously hypotensive) - Norvasc 10 mg PO daily Respiratory Failure resolved - Due to Asphyxiation - Laryngoscopy (06/18): vocal cords functional - s/p tracheotomy - Consider removal of trach collar - Mucomyst Q4H d/c'd (06/21) - Duonebs Q4H - Suction prn - Humidified O2, continue to wean as tolerated Fevers resolved - Afebrile since 06/04, currently off Abx - Ice packs, cooling blanket - Sputum cultures (05/25): yeast - s/p meropenum 1g Q8H & flagyl 500mg Q8H (total 13 days of treatment) - Motrin 200 mg Q6H PRN NSTEMI resolved - Elevated troponin- has normalized - ASA 81 mg PO daily (restarted 05/25) - Plavix 75mg PO daily (held - given drop in Hb) - Crestor 5 mg PO QHS - Cardiology consulted (Dr Gay) Leukocytosis resolved - Repeat CXR (05/21): slightly low lung volumes with mild crowded bronchovascular markings and minor bibasilar atelectasis - BCx (05/02): no growth - Repeat BCx (05/17): no growth - UA: leuk est 3+, +WBC, +RBC, nitrate - - UCx 05/06/18: no growth -repeat UCx (05/13, 05/17): yeast species - Tracheal Aspirate Cx 05/08/18: yeast - Colindres changed 05/17 - Doppler b/l UE and LE: negative for DVTs Hyperkalemia resolved - Continue to monitor, correct as needed Constipation, resolved - reported BM 06/28 - Senokot BID - Dulcolax 10 mg DC TID PRN - Lactulose 20 mg PO daily PRN - PEG 17gm GT bid - Flat Plate Abd (06/26): normal bowel gas pattern PPx, Diet, Disposition - DVT ppx: Heparin 5,000 Units SC Q8H - GI ppx: Pepcid 20mg GT bid - Diet: Tube feed, Glucerna 1.5, honey thick liquids (pleasure feeds only, per swallow eval) - Vitamin A&D - Code status: full code
[2018-07-17] MEDS: POLYETHYLENE GLYCOL 3350 17 GM/Dose PACKET GT SCH ×2 (10:54→18:00)
[2018-07-17] MEDS: Potassium Chloride 20 mEq/15 ml LIQ UD PO SCH (10:54)
[2018-07-17] MEDS: Sodium Chloride 0.45% 1,000 ML IV SCH (17:25)
[2018-07-17] MEDS: (Lantus) Insulin Glargine, Recombinant SC SCH (22:32)
[2018-07-18] MEDS: Albuterol-Ipratrop 3 mg / 0.5 (3 ml) UD INH SCH ×7 (00:02→23:47)
--- NOTE | 2018-07-18 06:52 | CP.PCM.PN ---
<Yahir Arizmendi - Last Filed: 07/18/18 07:34> Subjective - Date & Time of Evaluation Date of Evaluation: 07/18/18 Time of Evaluation: 06:00 - Subjective Subjective: PGY-[address] Yann Sheikh Patient is seen and examined at bedside alongside with several family members by bedside. As per nurse, patient vomited 300 cc of light green fluid yesterday. As per family, patient had one loose BM but did not have diarrhea. Patient denies pain. Patient admits to feeling some nausea, but no new vomiting reported, no abdominal pain. Denies fevers, chills, chest pain, shortness of breath, or urinary symptoms. Objective - Vital Signs/Intake and Output Vital Signs (last 24 hours): Temp Pulse Resp BP Pulse Ox 97.8 F 85 20 148/76 100 07/18/18 00:00 07/18/18 00:00 07/18/18 00:00 07/18/18 00:00 07/18/18 00:00 Intake and Output: 07/17/18 07/18/18 18:59 06:59 Intake Total 560 Balance 560 - Medications Medications: Current Medications Acetaminophen (Tylenol 650mg/20.3ml Solution Ud) 650 mg GT Q6 PRN PRN Reason: Temperature, Fever >100.4 F Last Admin: 07/16/18 17:19 Dose: 650 mg Albuterol/Ipratropium (Duoneb 3 Mg/0.5 Mg (3 Ml) Ud) 3 ml INH RQ4 [facility] Last Admin: 07/18/18 06:32 Dose: Not Given Amlodipine Besylate (Norvasc) 10 mg PO DAILY [facility] Last Admin: 07/17/18 10:53 Dose: 10 mg Aspirin (Aspirin Chewable) 81 mg PO DAILY [facility] Last Admin: 07/17/18 10:47 Dose: 81 mg Clopidogrel Bisulfate (Plavix) 75 mg PO DAILY [facility] Last Admin: 05/22/18 10:07 Dose: 75 mg Dextrose (Dextrose 50% Inj) 0 ml IV STAT PRN; Protocol PRN Reason: Hypoglycemia Protocol Last Admin: 06/21/18 16:15 Dose: 50 ml Dextrose (Glutose 15) 15 gm PO ONCE PRN; Protocol PRN Reason: Hypoglycemia Protocol Famotidine (Pepcid) 20 mg GT BID [facility] Last Admin: 07/17/18 20:55 Dose: Not Given Glucagon (Glucagen Diagnostic Kit) 1 mg IM STAT PRN; Protocol PRN Reason: Hypoglycemia Protocol Imipenem/Cilastatin Sodium 250 (mg/ Sodium Chloride) 100 mls @ 100 mls/hr IVPB Q6H [facility]; Protocol Last Admin: 07/18/18 03:36 Dose: 100 mls/hr Vancomycin HCl 1 gm/ Sodium (Chloride) 250 mls @ 166.7 mls/hr IVPB Q24H [facility]; Protocol Last Admin: 07/17/18 17:24 Dose: 166.7 mls/hr Sodium Chloride (Sodium Chloride 0.45%) 1,000 mls @ 40 mls/hr IV .Q24H [facility] Last Admin: 07/17/18 17:25 Dose: 40 mls/hr Ibuprofen (Motrin Oral Susp) 200 mg PO Q6H PRN PRN Reason: Fever >100.4 F Last Admin: 07/14/18 09:40 Dose: 200 mg Insulin Aspart (Novolog) 0 unit SC [facility]; Protocol Last Admin: 07/17/18 22:33 Dose: Not Given Insulin Glargine (Lantus) 40 unit SC [facility] Last Admin: 07/17/18 22:32 Dose: Not Given Insulin Human Isoph/Insulin Regular (Novolin 70/30 (70/30 Units/Ml) 10 Ml) 15 units SC BID [facility] Last Admin: 06/26/18 09:27 Dose: 15 units Metoprolol Tartrate (Lopressor) 75 mg PO BID [facility] Last Admin: 07/17/18 18:00 Dose: Not Given Ondansetron HCl (Zofran Inj) 4 mg IVP Q6H PRN PRN Reason: Nausea/Vomiting Last Admin: 07/17/18 22:31 Dose: 4 mg Polyethylene Glycol (Miralax) 17 gm GT BID [facility] Last Admin: 07/17/18 18:00 Dose: Not Given Potassium Chloride (Potassium Chloride Oral Soln) 20 meq PO DAILY [facility] Last Admin: 07/17/18 10:54 Dose: 20 meq Rosuvastatin Calcium (Crestor) 5 mg PO HS [facility] Last Admin: 07/17/18 22:31 Dose: Not Given Senna/Docusate Sodium (Senokot S 50 Mg-8.6 Mg) 1 tab PO BID [facility] Last Admin: 07/10/18 17:58 Dose: 1 tab Vitamin A (Vitamin A & D Oint Ud Foilpak) 1 ea TOP BID PRN PRN Reason: Dry skin Last Admin: 06/13/18 10:47 Dose: 1 ea - Labs Labs: 07/17/18 07:10 07/17/18 07:10 PT 16.8 SECONDS (9.7-12.2) H 05/28/18 07:15 INR 1.5 05/28/18 07:15 APTT 34 SECONDS (21-34) 05/28/18 07:15 - Constitutional Appears: Non-toxic, No Acute Distress, Chronically Ill - Head Exam Head Exam: ATRAUMATIC, NORMAL INSPECTION, NORMOCEPHALIC - Eye Exam Eye Exam: EOMI, Normal appearance - ENT Exam ENT Exam: Mucous Membranes Moist, Normal Exam - Neck Exam Neck Exam: Full ROM, Normal Inspection - Respiratory Exam Respiratory Exam: Clear to Ausculation Bilateral, NORMAL BREATHING PATTERN - Cardiovascular Exam Cardiovascular Exam: REGULAR RHYTHM, +S1, +S2 - GI/Abdominal Exam GI & Abdominal Exam: Soft, Normal Bowel Sounds. absent: Distended, Tenderness Additional comments: tube feeds, abdominal binder in place - Neurological Exam Neurological Exam: Alert, Awake - Psychiatric Exam Psychiatric exam: Normal Affect, Normal Mood - Skin Skin Exam: Dry, Intact, Normal Color, Warm Assessment and Plan - Assessment and Plan (Free Text) Plan: Anoxic Brain Injury- improving clinically - Aspiration precautions - Seizure precautions - Neurology on case, Dr. Duff/Guilherme - Turn and reposition q2h -patient successfully decannulated (07/14) -tube feeds held for now due to vomiting continue IVF -Aggressive PT/OT/ST Intermittent vomiting -tube feeds held due to new episode of vomiting 07/17/18 - Zofran PRN given - pepcid 20mg IVP -NS IVF -GI recs (Dr. Hilton) - f/u Hypokalemia - Kdur 20meq daily - replete as needed, continue to monitor CMP UTI -UA + -Urine culture: E coli, enterococcus faecalis -WBC uptrending 14.1-->9.7, continue to monitor -c/w Vanco 1gm IVPB Q24h, Primaxin 250 IVP q6h Acute Renal Injury with oliguria- improving - Likely due to dehydration - No HD needed - Nephrology recs (Dr. 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 -Na level wnl, continue to monitor -correct as needed Hypertension- chronic, stable - No pressors (was previously hypotensive) - Norvasc 10 mg PO daily Respiratory Failure resolved - Due to Asphyxiation - Laryngoscopy (06/18): vocal cords functional - s/p tracheotomy - Consider removal of trach collar - Mucomyst Q4H d/c'd (06/21) - Duonebs Q4H - Suction prn - Humidified O2, continue to wean as tolerated Fevers resolved - Afebrile since 06/04, currently off Abx - Ice packs, cooling blanket - Sputum cultures (05/25): yeast - s/p meropenum 1g Q8H & flagyl 500mg Q8H (total 13 days of treatment) - Motrin 200 mg Q6H PRN NSTEMI resolved - Elevated troponin- has normalized - ASA 81 mg PO daily (restarted 05/25) - Plavix 75mg PO daily (held - given drop in Hb) - Crestor 5 mg PO QHS - Cardiology consulted (Dr Gay) Leukocytosis resolved - Repeat CXR (05/21): slightly low lung volumes with mild crowded bronchovascular markings and minor bibasilar atelectasis - BCx (05/02): no growth - Repeat BCx (05/17): no growth - UA: leuk est 3+, +WBC, +RBC, nitrate - - UCx 05/06/18: no growth -repeat UCx (05/13, 05/17): yeast species - Tracheal Aspirate Cx 05/08/18: yeast - Alvarado changed 05/17 - Doppler b/l UE and LE: negative for DVTs Hyperkalemia resolved - Continue to monitor, correct as needed Constipation, resolved - reported BM 06/28 - Senokot BID - Dulcolax 10 mg RI TID PRN - Lactulose 20 mg PO daily PRN - PEG 17gm GT bid - Flat Plate Abd (06/26): normal bowel gas pattern PPx, Diet, Disposition - DVT ppx: Heparin 5,000 Units SC Q8H - GI ppx: Pepcid 20mg GT bid - Diet: Tube feed, Glucerna 1.5, honey thick liquids (pleasure feeds only, per swallow eval) - HELD for now due to vomiting - Vitamin A&D - Code status: full code <Yann Sheikh H - Last Filed: 07/18/18 11:29> Objective - Vital Signs/Intake and Output Vital Signs (last 24 hours): Temp Pulse Resp BP Pulse Ox 97.9 F 97 H 20 145/75 99 07/18/18 08:25 07/18/18 08:25 07/18/18 08:25 07/18/18 08:25 07/18/18 08:25 Intake and Output: 07/18/18 07/18/18 06:59 18:59 Intake Total 590 Balance 590 - Medications Medications: Current Medications Acetaminophen (Tylenol 650mg/20.3ml Solution Ud) 650 mg GT Q6 PRN PRN Reason: Temperature, Fever >100.4 F Last Admin: 07/16/18 17:19 Dose: 650 mg Albuterol/Ipratropium (Duoneb 3 Mg/0.5 Mg (3 Ml) Ud) 3 ml INH RQ4 [facility] Last Admin: 07/18/18 08:24 Dose: 3 ml Amlodipine Besylate (Norvasc) 10 mg PO DAILY [facility] Last Admin: 07/17/18 10:53 Dose: 10 mg Aspirin (Aspirin Chewable) 81 mg PO DAILY [facility] Last Admin: 07/17/18 10:47 Dose: 81 mg Clopidogrel Bisulfate (Plavix) 75 mg PO DAILY [facility] Last Admin: 05/22/18 10:07 Dose: 75 mg Dextrose (Dextrose 50% Inj) 0 ml IV STAT PRN; Protocol PRN Reason: Hypoglycemia Protocol Last Admin: 06/21/18 16:15 Dose: 50 ml Dextrose (Glutose 15) 15 gm PO ONCE PRN; Protocol PRN Reason: Hypoglycemia Protocol Famotidine (Pepcid) 20 mg GT BID [facility] Last Admin: 07/17/18 20:55 Dose: Not Given Glucagon (Glucagen Diagnostic Kit) 1 mg IM STAT PRN; Protocol PRN Reason: Hypoglycemia Protocol Imipenem/Cilastatin Sodium 250 (mg/ Sodium Chloride) 100 mls @ 100 mls/hr IVPB Q6H [facility]; Protocol Last Admin: 07/18/18 03:36 Dose: 100 mls/hr Vancomycin HCl 1 gm/ Sodium (Chloride) 250 mls @ 166.7 mls/hr IVPB Q24H [facility]; Protocol Last Admin: 07/17/18 17:24 Dose: 166.7 mls/hr Sodium Chloride (Sodium Chloride 0.45%) 1,000 mls @ 40 mls/hr IV .Q24H [facility] Last Admin: 07/17/18 17:25 Dose: 40 mls/hr Ibuprofen (Motrin Oral Susp) 200 mg PO Q6H PRN PRN Reason: Fever >100.4 F Last Admin: 07/14/18 09:40 Dose: 200 mg Insulin Aspart (Novolog) [address] [facility]; Protocol Last Admin: 07/17/18 22:33 Dose: Not Given Insulin Glargine (Lantus) 40 unit SC [facility] Last Admin: 07/17/18 22:32 Dose: Not Given Insulin Human Isoph/Insulin Regular (Novolin 70/30 (70/30 Units/Ml) 10 Ml) 15 units SC BID [facility] Last Admin: 06/26/18 09:27 Dose: 15 units Metoprolol Tartrate (Lopressor) 75 mg PO BID [facility] Last Admin: 07/17/18 18:00 Dose: Not Given Ondansetron HCl (Zofran Inj) 4 mg IVP Q6H PRN PRN Reason: Nausea/Vomiting Last Admin: 07/17/18 22:31 Dose: 4 mg Polyethylene Glycol (Miralax) 17 gm GT BID [facility] Last Admin: 07/17/18 18:00 Dose: Not Given Potassium Chloride (Potassium Chloride Oral Soln) 20 meq PO DAILY [facility] Last Admin: 07/17/18 10:54 Dose: 20 meq Rosuvastatin Calcium (Crestor) 5 mg PO [facility] Last Admin: 07/17/18 22:31 Dose: Not Given Senna/Docusate Sodium (Senokot S 50 Mg-8.6 Mg) 1 tab PO BID [facility] Last Admin: 07/10/18 17:58 Dose: 1 tab Vitamin A (Vitamin A & D Oint Ud Foilpak) 1 ea TOP BID PRN PRN Reason: Dry skin Last Admin: 06/13/18 10:47 Dose: 1 ea - Labs Labs: 07/18/18 06:21 07/18/18 06:21 PT 16.8 SECONDS (9.7-12.2) H 05/28/18 07:15 INR 1.5 05/28/18 07:15 APTT 34 SECONDS (21-34) 05/28/18 07:15 Attending/Attestation - Attestation I have personally seen and examined this patient.: Yes I have fully participated in the care of the patient.: Yes I have reviewed all pertinent clinical information, including history, physical exam and plan: Yes Notes (Text): 07/18/18 11:27 Medical attending: Patient was seen and examined by me. Agree with the above note by the resident The patient was awake and alert when we came and saw The patient was is trying to talk - she follows very simple commands as well The patient is pending a barium swallow study tomorrow if does ok then maybe consider removing PEG feeds at that time Yann Sheikh
[2018-07-18] MEDS: (Novolog) Insulin Aspart, Recombinant 100 u/ml 10 ml vial SC SCH ×3 (07:30→17:08)
[2018-07-18 07:33] LABS: BASO # 0.1 K/uL (0.0-0.2); BASO % 0.7 % (0.0-2.0); EOS # 0.3 K/uL (0.0-0.7); EOS % 3.9 % (0.0-4.0); HEMOGLOBIN 9.1 g/dL (11.0-16.0); LYMPH # 1.5 K/uL (1.0-4.3); LYMPH % 16.5 % (20.0-40.0); MEAN CELL VOLUME 82.9 fL (81.0-99.0); MEAN CORPUSCULAR HEMOGLOBIN 27.6 pg (27.0-31.0); MEAN CORPUSCULAR HGB CONC 33.3 g/dL (33.0-37.0); MONO # 0.6 K/uL (0.0-0.8); MONO % 6.4 % (0.0-10.0); NEUT # 6.5 K/uL (1.8-7.0); NEUT % 72.5 % (50.0-75.0); RBC 3.28 Mil/uL (3.80-5.20); RED CELL DISTRIBUTION WIDTH 16.3 % (11.5-14.5)
[2018-07-18 08:03] LABS: ALB/GLOB RATIO 0.9 (1.0-2.1); ALBUMIN 3.1 g/dL (3.5-5.0); ALT/SGPT 36 U/L (9-52); AST/SGOT 22 U/L (14-36); BLOOD UREA NITROGEN 4 mg/dL (7-17); CALCIUM 8.6 mg/dl (8.6-10.4); GFR NON-AFRICAN AMERICAN > 60
[2018-07-18] MEDS: POLYETHYLENE GLYCOL 3350 17 GM/Dose PACKET GT SCH ×2 (12:22→17:08)
[2018-07-18] MEDS: Potassium Chloride 20 mEq/15 ml LIQ UD PO SCH (12:23)
[2018-07-18] MEDS: Sodium Chloride 0.45% 1,000 ML IV SCH (14:51)
[2018-07-18] MEDS: (Lantus) Insulin Glargine, Recombinant SC SCH (23:04)
--- NOTE | 2018-07-19 07:14 | CP.PCM.PN ---
<Arianne Burkett - Last Filed: 07/19/18 14:38> Subjective - Date & Time of Evaluation Date of Evaluation: 07/19/18 Time of Evaluation: 07:12 - Subjective Subjective: PGY-1 Arianne Burkett D.O. Medicine progress note for Dr. Negrete's service: Patient was seen and examined this morning. Her friend is at bedside. She is s itting up in bed smiling. She is able to have a conversation in Turkmen. She states she is doing well. She complains of a cough. She and her friend report no vomiting for the past 2 nights. She denies pain. She is able to move all of her limbs on command. Objective - Vital Signs/Intake and Output Vital Signs (last 24 hours): Temp Pulse Resp BP Pulse Ox 98 F 96 H 20 163/77 H 96 07/19/18 00:00 07/19/18 00:00 07/19/18 00:00 07/19/18 00:00 07/19/18 00:00 Intake and Output: 07/19/18 07/19/18 06:59 18:59 Intake Total 650 Balance 650 - Medications Medications: Current Medications Acetaminophen (Tylenol 650mg/20.3ml Solution Ud) 650 mg GT Q6 PRN PRN Reason: Temperature, Fever >100.4 F Last Admin: 07/16/18 17:19 Dose: 650 mg Albuterol/Ipratropium (Duoneb 3 Mg/0.5 Mg (3 Ml) Ud) 3 ml INH RQ4 [facility] Last Admin: 07/18/18 23:47 Dose: 3 ml Amlodipine Besylate (Norvasc) 10 mg PO DAILY [facility] Last Admin: 07/18/18 12:22 Dose: Not Given Aspirin (Aspirin Chewable) 81 mg PO DAILY [facility] Last Admin: 07/18/18 12:22 Dose: Not Given Clopidogrel Bisulfate (Plavix) 75 mg PO DAILY [facility] Last Admin: 05/22/18 10:07 Dose: 75 mg Dextrose (Dextrose 50% Inj) 0 ml IV STAT PRN; Protocol PRN Reason: Hypoglycemia Protocol Last Admin: 06/21/18 16:15 Dose: 50 ml Dextrose (Glutose 15) 15 gm PO ONCE PRN; Protocol PRN Reason: Hypoglycemia Protocol Famotidine (Pepcid) 20 mg GT BID [facility] Last Admin: 07/18/18 17:09 Dose: Not Given Glucagon (Glucagen Diagnostic Kit) 1 mg IM STAT PRN; Protocol PRN Reason: Hypoglycemia Protocol Imipenem/Cilastatin Sodium 250 (mg/ Sodium Chloride) 100 mls @ 100 mls/hr IVPB Q6H [facility]; Protocol Last Admin: 07/19/18 03:48 Dose: 100 mls/hr Vancomycin HCl 1 gm/ Sodium (Chloride) 250 mls @ 166.7 mls/hr IVPB Q24H [facility]; Protocol Last Admin: 07/18/18 17:06 Dose: 166.7 mls/hr Sodium Chloride (Sodium Chloride 0.45%) 1,000 mls @ 40 mls/hr IV .Q24H [facility] Last Admin: 07/18/18 14:51 Dose: 40 mls/hr Ibuprofen (Motrin Oral Susp) 200 mg PO Q6H PRN PRN Reason: Fever >100.4 F Last Admin: 07/14/18 09:40 Dose: 200 mg Insulin Aspart (Novolog) 0 unit SC [facility]; Protocol Last Admin: 07/18/18 17:08 Dose: Not Given Insulin Glargine (Lantus) 40 unit SC [facility] Last Admin: 07/18/18 23:04 Dose: Not Given Insulin Human Isoph/Insulin Regular (Novolin 70/30 (70/30 Units/Ml) 10 Ml) 15 units SC BID [facility] Last Admin: 06/26/18 09:27 Dose: 15 units Metoprolol Tartrate (Lopressor) 75 mg PO BID [facility] Last Admin: 07/18/18 17:08 Dose: Not Given Ondansetron HCl (Zofran Inj) 4 mg IVP Q6H PRN PRN Reason: Nausea/Vomiting Last Admin: 07/17/18 22:31 Dose: 4 mg Polyethylene Glycol (Miralax) 17 gm GT BID [facility] Last Admin: 07/18/18 17:08 Dose: Not Given Potassium Chloride (Potassium Chloride Oral Soln) 20 meq PO DAILY [facility] Last Admin: 07/18/18 12:23 Dose: Not Given Rosuvastatin Calcium (Crestor) 5 mg PO HS [facility] Last Admin: 07/18/18 23:04 Dose: Not Given Senna/Docusate Sodium (Senokot S 50 Mg-8.6 Mg) 1 tab PO BID [facility] Last Admin: 07/10/18 17:58 Dose: 1 tab Vitamin A (Vitamin A & D Oint Ud Foilpak) 1 ea TOP BID PRN PRN Reason: Dry skin Last Admin: 06/13/18 10:47 Dose: 1 ea - Labs Labs: 07/18/18 06:21 07/18/18 06:21 PT 16.8 SECONDS (9.7-12.2) H 05/28/18 07:15 INR 1.5 05/28/18 07:15 APTT 34 SECONDS (21-34) 05/28/18 07:15 - Constitutional Appears: Non-toxic, No Acute Distress, Chronically Ill - Head Exam Head Exam: ATRAUMATIC, NORMAL INSPECTION - Eye Exam Eye Exam: EOMI, Normal appearance - ENT Exam ENT Exam: Mucous Membranes Moist - Neck Exam Additional comments: clean dry bandage over previous trach site - Respiratory Exam Respiratory Exam: Clear to Ausculation Bilateral, NORMAL BREATHING PATTERN. a bsent: Respiratory Distress - Cardiovascular Exam Cardiovascular Exam: REGULAR RHYTHM, +S1, +S2 - GI/Abdominal Exam GI & Abdominal Exam: Soft. absent: Distended, Tenderness Additional comments: PEG- no signs of drainage, infection, or bleeding - Extremities Exam Extremities Exam: Normal Capillary Refill, Normal Inspection. absent: Pedal Edema, Tenderness Additional comments: RUE PICC - Neurological Exam Neurological Exam: Alert, Awake - Psychiatric Exam Psychiatric exam: Normal Affect, Normal Mood - Skin Skin Exam: Dry, Normal Color, Warm Assessment and Plan - Assessment and Plan (Free Text) Assessment: Patient is a 52 year old female visiting from with probable past medical history of T2DM who was found unresponsive by on 05/01 (reportedly). EMS was called and patient was resuscitated and subsequently intubated on the field and brought to the ED. Code stroke was called, patient was subsequently admitted to ICU for close monitoring and evaluation for anoxic brain injury. Patient was noted on physical exam to have ring monge suggestive of suicidal attempt by hanging. [employer] involved and state high likelihood of suicidal attempt. Patient was treated for sepsis. Patient is s/p tracheostomy and PEG. Downgraded to te lemetry. In June, able to be weaned of ventilator to trach collar w/ humidified oxygen and then finally off trach collar and O2 and now breathing independently. Patient now speaks full sentences and follows commands. She will need extensive physical therapy as she is still bed bound. Salma ahs been intermittently vomiting and PEG tube feeds held. Barium swallow indicated no abnormalities. Will try patient on regular (bite-sized) diet but will continue using PEG for meds. New onset UTI- will start cipro. However, sample was via Al[facility] so will repeat UA and Cx. Plan: Anoxic brain injury, improving- 2/2 asphyxiation - Aspiration precautions - Seizure precautions - S/p trach and PEG - Successfully decannulated on 07/14 - EEG (05/04): diffuse encephalopathy with burst suppression. - Repeat EEG: severe non specific diffuse disturbances in cortical activity, brown matter dysfunction - Repeat CT head: no bleeding - MRI Brain: subacute favored over acute cerebral hypoxic insult with minimal involvement of the lower haris and the cerebellar hemispheres - Modified barium swallow 07/19: no abnormalities - Start on bite sized diet/thin liquids - Meds through PEG - Aggressive PT/OT/ST - Neurology consulted (Sherin/Guilherme) Urinary tract infection, acute - Alvarado discontinued 07/14 - UA ([facility]ado): LE 3+, nitrate neg, WBC 58, mod lanny - UCx ([facility]): E. coli, Enterococcus faecalis - Repeat UA and Cx pending - Cipro 500 mg IV Q12H- started 07/19 - ID consulted (Nano) Vomiting, intermittent - Most recent emesis 07/17 - PEG feeds stopped - Continue using PEG for meds - Aspiration precautions - AXR (07/01): no significant abnormalities, PEG in place - CT A/P (06/06): no obstruction - Pepcid 20 mg PO BID - Zofran 4 mg IV Q6H PRN - GI consulted (Yobani) Type 2 diabetes mellitus, chronic - A1c 10.2 - Accuchecks ACHS - Hypoglycemic protocol - ISS high dose - Lantus 40 units SC [facility] - Novolin 70/30 15 units SC BID Hypertension, chronic - Metoprolol tartrate 75 mg PO BID - Norvasc 10 mg PO daily Leukocytosis, resolved - CXR (05/25): no acute pathology - Doppler b/l UE and LE (05/18): negative for DVTs - UCx (Alvarado): E. coli, Enterococcus faecalis - Repeat UA and Cx pending - Most recent Blood Cx from vein (05/21) and PICC (05/17): no growth - ID consulted (Nano) Fevers, resolved - Afebrile since 06/04 - Ice packs, cooling blanket PRN - Tylenol 650 mg PO Q6H PRN - Motrin 200 mg Q6H PRN - ID consulted (Nano) Respiratory failure, resolved - Decannulated 07/14 - Laryngoscopy 06/18- vocal cords functional - Pulmonology consulted (Mika) Acute renal injury with oliguria, resolved - Now producing appropriate amount of urine - Likely due to dehydration - No hemodialysis needed - 1/2NS @ 40 mL/hr - Nephrology consulted (Arvind) Constipation, resolved - Miralax 17 g PO BID - Senokot 50-8.6 mg PO BID NSTEMI, resolved - ASA 81 mg PO daily- restarted 05/25 - Plavix 75mg PO daily- restarted 07/19 - Crestor 5 mg PO QHS - Cardiology consulted (Victor Hugo) Transaminitis, resolved - Likely shock liver - Follow LFTs PPx: VTE: Heparin 5,000 units SC Q12H GI: Pepcid 20 mg GT BID Code status: full code Case was discussed with attending, Dr. Negrete. <Emmett Negrete - Last Filed: 07/19/18 17:19> Objective - Vital Signs/Intake and Output Vital Signs (last 24 hours): Temp Pulse Resp BP Pulse Ox 99.1 F 92 H 20 150/70 96 07/19/18 08:01 07/19/18 08:01 07/19/18 08:01 07/19/18 09:53 07/19/18 08:01 Intake and Output: 07/19/18 07/19/18 06:59 18:59 Intake Total 650 380 Balance 650 380 - Medications Medications: Current Medications Acetaminophen (Tylenol 650mg/20.3ml Solution Ud) 650 mg GT Q6 PRN PRN Reason: Temperature, Fever >100.4 F Last Admin: 07/16/18 17:19 Dose: 650 mg Albuterol/Ipratropium (Duoneb 3 Mg/0.5 Mg (3 Ml) Ud) 3 ml INH RQ4 [facility] Last Admin: 07/19/18 11:38 Dose: Not Given Amlodipine Besylate (Norvasc) 10 mg PO DAILY [facility] Last Admin: 07/19/18 09:53 Dose: 10 mg Aspirin (Aspirin Chewable) 81 mg PO DAILY [facility] Last Admin: 07/19/18 09:53 Dose: 81 mg Dextrose (Dextrose 50% Inj) 0 ml IV STAT PRN; Protocol PRN Reason: Hypoglycemia Protocol Last Admin: 06/21/18 16:15 Dose: 50 ml Dextrose (Glutose 15) 15 gm PO ONCE PRN; Protocol PRN Reason: Hypoglycemia Protocol Famotidine (Pepcid) 20 mg GT BID [facility] Last Admin: 07/19/18 09:53 Dose: 20 mg Glucagon (Glucagen Diagnostic Kit) 1 mg IM STAT PRN; Protocol PRN Reason: Hypoglycemia Protocol Heparin Sodium (Porcine) (Heparin) 5,000 units SC Q12 [facility] Sodium Chloride (Sodium Chloride 0.45%) 1,000 mls @ 40 mls/hr IV .Q24H [facility] Last Admin: 07/18/18 14:51 Dose: 40 mls/hr Ciprofloxacin (Cipro 400mg/200ml Dsw) 400 mg in 200 mls @ 133 mls/hr IVPB Q12H [facility]; Protocol Last Admin: 07/19/18 13:44 Dose: 133 mls/hr Ibuprofen (Motrin Oral Susp) 200 mg PO Q6H PRN PRN Reason: Fever >100.4 F Last Admin: 07/14/18 09:40 Dose: 200 mg Insulin Aspart (Novolog) 0 unit SC [facility]; Protocol Last Admin: 07/19/18 12:08 Dose: Not Given Insulin Glargine (Lantus) 40 unit SC [facility] Last Admin: 07/18/18 23:04 Dose: Not Given Insulin Human Isoph/Insulin Regular (Novolin 70/30 (70/30 Units/Ml) 10 Ml) 15 u nits SC BID [facility] Last Admin: 06/26/18 09:27 Dose: 15 units Metoprolol Tartrate (Lopressor) 75 mg PO BID [facility] Last Admin: 07/19/18 09:53 Dose: 75 mg Ondansetron HCl (Zofran Inj) 4 mg IVP Q6H PRN PRN Reason: Nausea/Vomiting Last Admin: 07/17/18 22:31 Dose: 4 mg Polyethylene Glycol (Miralax) 17 gm GT BID [facility] Last Admin: 07/19/18 09:54 Dose: 17 gm Potassium Chloride (Potassium Chloride Oral Soln) 20 meq PO DAILY [facility] Last Admin: 07/19/18 09:54 Dose: 20 meq Rosuvastatin Calcium (Crestor) 5 mg PO HS [facility] Last Admin: 07/18/18 23:04 Dose: Not Given Senna/Docusate Sodium (Senokot S 50 Mg-8.6 Mg) 1 tab PO BID [facility] Last Admin: 07/10/18 17:58 Dose: 1 tab Vitamin A (Vitamin A & D Oint Ud Foilpak) 1 ea TOP BID PRN PRN Reason: Dry skin Last Admin: 06/13/18 10:47 Dose: 1 ea - Labs Labs: 07/19/18 13:34 07/19/18 13:34 PT 16.8 SECONDS (9.7-12.2) H 05/28/18 07:15 INR 1.5 05/28/18 07:15 APTT 34 SECONDS (21-34) 05/28/18 07:15 Attending/Attestation - Attestation I have personally seen and examined this patient.: Yes I have fully participated in the care of the patient.: Yes I have reviewed all pertinent clinical information, including history, physical exam and plan: Yes Notes (Text): Seen and examined by me . she returned from video swallow study . Spoke to speech pathologist Conchita ,she did very well. Recommending soft diet .Patient is decannulated. able to follow directions well and answer questions. lungs clear she was getting IV fluids. Urine grew E coli and enterococcus fecalis from faley cath urine. sensitive for cipro. we will start on cipro and stop vanco and primaxin. resident spoke to Dr Mcgill
[2018-07-19] MEDS: (Novolog) Insulin Aspart, Recombinant 100 u/ml 10 ml vial SC SCH ×3 (08:15→21:58)
[2018-07-19] MEDS: Albuterol-Ipratrop 3 mg / 0.5 (3 ml) UD INH SCH ×4 (08:27→20:50)
[2018-07-19] MEDS: Potassium Chloride 20 mEq/15 ml LIQ UD PO SCH (09:54)
[2018-07-19] MEDS: POLYETHYLENE GLYCOL 3350 17 GM/Dose PACKET GT SCH ×2 (09:54→21:50)
[2018-07-19] MEDS ORDERED: Barium Sulfate for Susp 98% w/w 340g Bottle ONE (11:25)
--- NOTE | 2018-07-19 12:35 | RAD ---
Date of service: 07/19/2018 PROCEDURE: Modified barium swallow study. HISTORY: History of CVA, for further swallow assessment COMPARISON: None available. TECHNIQUE: Under fluoroscopic guidance, barium meals of various consistency were administered to the patient by the speech pathologist. FINDINGS: No penetration or aspiration was observed during this study. IMPRESSION: No penetration or aspiration observed. Please refer to the detailed report and recommendations of the speech pathologist.
[2018-07-19 13:37] LABS: BASO % 0.4 % (0.0-2.0); EOS # 0.2 K/uL (0.0-0.7); EOS % 2.4 % (0.0-4.0); HEMOGLOBIN 8.8 g/dL (11.0-16.0); LYMPH # 0.9 K/uL (1.0-4.3); LYMPH % 10.5 % (20.0-40.0); MEAN CELL VOLUME 82.7 fL (81.0-99.0); MEAN CORPUSCULAR HEMOGLOBIN 27.1 pg (27.0-31.0); MEAN CORPUSCULAR HGB CONC 32.8 g/dL (33.0-37.0); MEAN PLATELET VOLUME 9.5 fL (7.2-11.7); MONO # 0.7 K/uL (0.0-0.8); MONO % 8.3 % (0.0-10.0); NEUT # 6.4 K/uL (1.8-7.0); NEUT % 78.4 % (50.0-75.0); RBC 3.26 Mil/uL (3.80-5.20); RED CELL DISTRIBUTION WIDTH 16.5 % (11.5-14.5); WHITE BLOOD COUNT 8.1 K/uL (4.8-10.8)
[2018-07-19] MEDS: Ciprofloxacin 400mg/200ml D5W 400 MG/200 ML BAG IVPB SCH (13:44)
[2018-07-19 13:55] LABS: ALB/GLOB RATIO 0.9 (1.0-2.1); ALT/SGPT 35 U/L (9-52); AST/SGOT 29 U/L (14-36); BLOOD UREA NITROGEN 5 mg/dL (7-17); CALCIUM 8.3 mg/dl (8.6-10.4); GFR NON-AFRICAN AMERICAN > 60
[2018-07-19] MEDS: Acetaminophen 650mg/20.3ml solution UD GT PRN (18:12)
--- NOTE | 2018-07-19 18:17 | RAD ---
HISTORY: fever COMPARISON: Chest x-ray performed 05/25/18 TECHNIQUE: Chest, one view. FINDINGS: LUNGS: Central vascular prominence. Mild venous congestion. No focal consolidation. PLEURA: No significant pleural effusion identified. No definite pneumothorax . CARDIOVASCULAR: Heart size appears within normal limits. No significant atherosclerotic calcification present. OSSEOUS STRUCTURES: Degenerative changes. Osseous demineralization. VISUALIZED UPPER ABDOMEN: Residual contrast within upper abdominal bowel loop/stomach. Mild elevation right hemidiaphragm. OTHER FINDINGS: None. IMPRESSION: Right-sided central venous catheter terminates at the cavoatrial junction. Central vascular prominence. Mild venous congestion.
[2018-07-19] MEDS: (Lantus) Insulin Glargine, Recombinant SC SCH (21:51)
[2018-07-20] MEDS: Albuterol-Ipratrop 3 mg / 0.5 (3 ml) UD INH SCH ×6 (00:38→23:46)
[2018-07-20] MEDS: Ciprofloxacin 400mg/200ml D5W 400 MG/200 ML BAG IVPB SCH ×2 (01:38→15:11)
[2018-07-20] MEDS: Sodium Chloride 0.45% 1,000 ML IV SCH (06:07)
--- NOTE | 2018-07-20 07:08 | CP.PCM.PN ---
<Arianne Burkett - Last Filed: 07/20/18 15:55> Subjective - Date & Time of Evaluation Date of Evaluation: 07/20/18 Time of Evaluation: 07:07 - Subjective Subjective: PGY-1 Arianne Burkett D.O. Medicine progress note for Dr. Negrete's service: houseperson #[id number] Patient was seen and examined this morning. Her sister is at bedside. Patient is sitting up in a chair. She is able to speak but many of her words are unintelligible. She acknowledges that she understands. She denies pain. She is tolerating PO diet without nausea or vomiting. She complains of mild cough. She is oriented to person and place. She states that it is August. When asked about if she remembers why she came to the hospital, she becomes very tearful. The patient's sister states that she told her all she remembers is a "pink powder." Patient denies wanting to harm or kill herself at this time. She says she would not because of her kids. When asked if she plans on moving back to the [facility] or staying in the , she says she wants to stay. Sis reports that patient is able to communicate her needs, such as when she is thirsty or has to use the bathroom. Extensive conversations with PT and OT. Bother state that the patient is making progress. PT recommends multipodus boots. OT recommends hand splinting as tolerated. Bother PT and OT will teach the patient's family exercises to do throughout the day. PT reported that patient is a fall risk. Discussed with nursing- they report that family is present / and nursing is frequently in patient's room. Therefore, no need for 1:1 or Avasys at this time. Objective - Vital Signs/Intake and Output Vital Signs (last 24 hours): Temp Pulse Resp BP Pulse Ox 98.5 F 90 20 164/75 H 100 07/19/18 23:19 07/19/18 17:52 07/19/18 17:52 07/19/18 18:12 07/19/18 17:52 Intake and Output: 07/20/18 07/20/18 06:59 18:59 Intake Total 420 Balance 420 - Medications Medications: Current Medications Acetaminophen (Tylenol 650mg/20.3ml Solution Ud) 650 mg GT Q6 PRN PRN Reason: Temperature, Fever >100.4 F Last Admin: 07/19/18 18:12 Dose: 650 mg Albuterol/Ipratropium (Duoneb 3 Mg/0.5 Mg (3 Ml) Ud) 3 ml INH RQ4 [facility] Last Admin: 07/20/18 05:18 Dose: Not Given Amlodipine Besylate (Norvasc) 10 mg PO DAILY [facility] Last Admin: 07/19/18 09:53 Dose: 10 mg Aspirin (Aspirin Chewable) 81 mg PO DAILY [facility] Last Admin: 07/19/18 09:53 Dose: 81 mg Dextrose (Dextrose 50% Inj) 0 ml IV STAT PRN; Protocol PRN Reason: Hypoglycemia Protocol Last Admin: 06/21/18 16:15 Dose: 50 ml Dextrose (Glutose 15) 15 gm PO ONCE PRN; Protocol PRN Reason: Hypoglycemia Protocol Famotidine (Pepcid) 20 mg GT BID [facility] Last Admin: 07/19/18 18:14 Dose: 20 mg Glucagon (Glucagen Diagnostic Kit) 1 mg IM STAT PRN; Protocol PRN Reason: Hypoglycemia Protocol Heparin Sodium (Porcine) (Heparin) 5,000 units SC Q12 [facility] Last Admin: 07/19/18 21:50 Dose: 5,000 units Sodium Chloride (Sodium Chloride 0.45%) 1,000 mls @ 40 mls/hr IV .Q24H [facility] Last Admin: 07/20/18 06:07 Dose: 40 mls/hr Ciprofloxacin (Cipro 400mg/200ml Dsw) 400 mg in 200 mls @ 133 mls/hr IVPB Q12H [facility]; Protocol Last Admin: 07/20/18 01:38 Dose: 133 mls/hr Ibuprofen (Motrin Oral Susp) 200 mg PO Q6H PRN PRN Reason: Fever >100.4 F Last Admin: 07/14/18 09:40 Dose: 200 mg Insulin Aspart (Novolog) 0 unit SC ACHS [facility]; Protocol Last Admin: 07/19/18 21:58 Dose: Not Given Insulin Glargine (Lantus) 40 unit SC HS [facility] Last Admin: 07/19/18 21:51 Dose: 40 u Insulin Human Isoph/Insulin Regular (Novolin 70/30 (70/30 Units/Ml) 10 Ml) 15 units SC BID [facility] Last Admin: 06/26/18 09:27 Dose: 15 units Metoprolol Tartrate (Lopressor) 75 mg PO BID [facility] Last Admin: 07/19/18 18:12 Dose: 75 mg Ondansetron HCl (Zofran Inj) 4 mg IVP Q6H PRN PRN Reason: Nausea/Vomiting Last Admin: 07/17/18 22:31 Dose: 4 mg Polyethylene Glycol (Miralax) 17 gm GT BID [facility] Last Admin: 07/19/18 21:50 Dose: 17 gm Potassium Chloride (Potassium Chloride Oral Soln) 20 meq PO DAILY [facility] Last Admin: 07/19/18 09:54 Dose: 20 meq Rosuvastatin Calcium (Crestor) 5 mg PO HS [facility] Last Admin: 07/19/18 21:51 Dose: 5 mg Senna/Docusate Sodium (Senokot S 50 Mg-8.6 Mg) 1 tab PO BID [facility] Last Admin: 07/10/18 17:58 Dose: 1 tab Vitamin A (Vitamin A & D Oint Ud Foilpak) 1 ea TOP BID PRN PRN Reason: Dry skin Last Admin: 06/13/18 10:47 Dose: 1 ea - Labs Labs: 07/19/18 13:34 07/19/18 13:34 PT 16.8 SECONDS (9.7-12.2) H 05/28/18 07:15 INR 1.5 05/28/18 07:15 APTT 34 SECONDS (21-34) 05/28/18 07:15 - Additional Findings Additional findings: - Constitutional Appears: Non-toxic, No Acute Distress, Chronically Ill - Head Exam Head Exam: ATRAUMATIC, NORMAL INSPECTION - Eye Exam Eye Exam: EOMI, Normal appearance - ENT Exam ENT Exam: Mucous Membranes Moist - Neck Exam Additional comments: clean dry bandage over previous trach site - Respiratory Exam Respiratory Exam: Clear to Ausculation Bilateral, NORMAL BREATHING PATTERN. absent: Respiratory Distress - Cardiovascular Exam Cardiovascular Exam: REGULAR RHYTHM, +S1, +S2 - GI/Abdominal Exam GI & Abdominal Exam: Soft. absent: Distended, Tenderness Additional comments: PEG- no signs of drainage, infection, or bleeding - Extremities Exam Extremities Exam: Normal Capillary Refill, Normal Inspection. absent: Pedal Edema, Tenderness Additional comments: RUE PICC - Neurological Exam Neurological Exam: Alert, Awake - Psychiatric Exam Psychiatric exam: Normal Affect, Normal Mood - Skin Skin Exam: Dry, Normal Color, Warm Assessment and Plan - Assessment and Plan (Free Text) Assessment: Patient is a 52 year old female visiting from with probable past medical history of T2DM who was found unresponsive by on 05/01 (reportedly). EMS was called and patient was resuscitated and subsequently intubated on the field and brought to the ED. Code stroke was called, patient was subsequently admitted to ICU for close monitoring and evaluation for anoxic brain injury. Patient was noted on physical exam to have ring monge suggestive of suicidal attempt by hanging. [employer] involved and state high likelihood of suicidal attempt. Patient was treated for sepsis. Patient is s/p tracheostomy and PEG. Downgraded to telemetry. In June, able to be weaned of ventilator to trach collar w/ humidified oxygen and then finally off trach collar and O2 and now breathing independently. Patient now speaks full sentences, yet many words are jumbled and hard to understand. She follows commands well. She needs extensive physical therapy as she is still bed bound. Barium swallow indicated no abnormalities so PEG feeds stopped. Patient doing well on regular (bite-sized) diet. Continuing PEG for meds. New onset UTI- started cipro. However, sample was via Alvarado and r epeat UA was clean. Will follow-up urine Cx. Temperature of 101.3 on 07/19- afebrile since. Will follow-up blood Cx. Patient was asked about possible suicide attempt. Patient denies suicidal ideation at this. Patient will need psychiatric consult once her speech is improved. Presently, the [place] tr anslator is not able to understand most of what the patient says and the sister is mostly speaking for the patient. Plan: Anoxic brain injury, improving- 2/2 asphyxiation, suspect suicide attempt - Police involved when patient originally admitted- as per patient's family, the police will speak to patient when she is able to communicate better - Aspiration precautions - Seizure precautions - Fall precautions - S/p trach and PEG - Successfully decannulated on 07/14 - EEG (05/04): diffuse encephalopathy with burst suppression. - Repeat EEG: severe non specific diffuse disturbances in cortical activity, brown matter dysfunction - Repeat CT head: no bleeding - MRI Brain: subacute favored over acute cerebral hypoxic insult with minimal involvement of the lower haris and the cerebellar hemispheres - Modified barium swallow 07/19: no abnormalities - Start on bite sized diet/thin liquids - Meds through PEG - Aggressive PT/OT/ST - Multipodus boots - Hand splints - Neurology consulted (Sherin/Guilherme) Fevers - Most recent 101.3 on 07/19 - CXR 07/19: no active disease - UA 07/20: nitrate neg, LE neg, WBC 6, lanny rare - f/u UCx - f/u Blood Cx 07/19 - Ice packs, cooling blanket PRN - Tylenol 650 mg PO Q6H PRN - Motrin 200 mg Q6H PRN - ID consulted (Nano) Urinary tract infection, acute - Alvarado discontinued 07/14 - UA (Alvarado): LE 3+, nitrate neg, WBC 58, mod lanny - UCx (Alvarado): E. coli, Enterococcus faecalis - UA 07/20: nitrate neg, LE neg, WBC 6, lanny rare - f/u UCx - Cipro 500 mg IV Q12H- started 07/19 - ID consulted (Nano) Vomiting, intermittent - Most recent emesis 07/17 - PEG feeds stopped - Continue using PEG for meds, flushes - Aspiration precautions - AXR (07/01): no significant abnormalities, PEG in place - CT A/P (06/06): no obstruction - Pepcid 20 mg PO BID - Zofran 4 mg IV Q6H PRN - GI consulted (Yobani) Type 2 diabetes mellitus, chronic - A1c 10.2 - Accuchecks ACHS - Hypoglycemic protocol - ISS medium dose - Lantus 40 units SC QHS - Novolin 70/30 15 units SC BID- held Hypertension, chronic - Metoprolol tartrate 75 mg PO BID - Norvasc 10 mg PO daily Leukocytosis, resolved - CXR (05/25): no acute pathology - Doppler b/l UE and LE (05/18): negative for DVTs - UCx (Alvarado): E. coli, Enterococcus faecalis - Repeat UA and Cx pending - Most recent Blood Cx from vein (05/21) and PICC (05/17): no growth - ID consulted (Nano) Respiratory failure, resolved - Duonebs Q4H - Decannulated 07/14 - Laryngoscopy 06/18- vocal cords functional - Pulmonology consulted (Mika) Acute renal injury with oliguria, resolved - Now producing appropriate amount of urine - Likely due to dehydration - No hemodialysis needed - NS @ 50 mL/hr - Nephrology consulted (Arvind) Constipation, resolved - Miralax 17 g PO BID NSTEMI, resolved - ASA 81 mg PO daily - Crestor 5 mg PO QHS - Cardiology consulted (Victor Hugo) Transaminitis, resolved - Likely shock liver - Follow LFTs PPx: VTE: Heparin 5,000 units SC Q12H GI: Pepcid 20 mg GT BID Code status: full code Case was discussed with attending, Dr. Negrete. <Emmett Negrete - Last Filed: 07/22/18 20:32> Objective - Vital Signs/Intake and Output Vital Signs (last 24 hours): Temp Pulse Resp BP Pulse Ox 97.1 F L 64 20 118/61 98 07/22/18 16:00 07/22/18 16:00 07/22/18 16:00 07/22/18 18:16 07/22/18 16:00 Intake and Output: 07/22/18 07/23/18 18:59 06:59 Intake Total 700 Balance 700 - Medications Medications: Current Medications Acetaminophen (Tylenol 650mg/20.3ml Solution Ud) 650 mg PO Q6 PRN PRN Reason: Fever >100.4 F or mild pain Albuterol/Ipratropium (Duoneb 3 Mg/0.5 Mg (3 Ml) Ud) 3 ml INH RQ6 [facility] Last Admin: 07/22/18 15:28 Dose: Not Given Amlodipine Besylate (Norvasc) 10 mg PO DAILY [facility] Last Admin: 07/22/18 10:18 Dose: 10 mg Aspirin (Aspirin Chewable) 81 mg PO DAILY [facility] Last Admin: 07/22/18 10:18 Dose: 81 mg Ciprofloxacin (Cipro) 500 mg PO BID [facility]; Protocol Last Admin: 07/22/18 18:16 Dose: 500 mg Dextrose (Dextrose 50% Inj) 0 ml IV STAT PRN; Protocol PRN Reason: Hypoglycemia Protocol Last Admin: 06/21/18 16:15 Dose: 50 ml Dextrose (Glutose 15) 15 gm PO ONCE PRN; Protocol PRN Reason: Hypoglycemia Protocol Famotidine (Pepcid) 20 mg PO BID [facility] Last Admin: 07/22/18 18:16 Dose: 20 mg Glucagon (Glucagen Diagnostic Kit) 1 mg IM STAT PRN; Protocol PRN Reason: Hypoglycemia Protocol Guaifenesin/Dextromethorphan (Robitussin Dm) 5 ml PO Q4H PRN PRN Reason: Cough Last Admin: 07/22/18 08:21 Dose: 5 ml Heparin Sodium (Porcine) (Heparin) 5,000 units SC Q12 [facility] Last Admin: 07/22/18 10:15 Dose: 5,000 units Ibuprofen (Motrin Oral Susp) 200 mg PO Q6H PRN PRN Reason: Fever >100.4 F or mild pain Insulin Aspart (Novolog) 0 unit SC ACHS [facility]; Protocol Last Admin: 07/22/18 16:56 Dose: Not Given Insulin Glargine (Lantus) 10 unit SC [facility] Last Admin: 07/21/18 22:22 Dose: 10 units Metoprolol Tartrate (Lopressor) 75 mg PO BID [facility] Last Admin: 07/22/18 18:16 Dose: 75 mg Ondansetron HCl (Zofran Inj) 4 mg IVP Q6H PRN PRN Reason: Nausea/Vomiting Last Admin: 07/17/18 22:31 Dose: 4 mg Polyethylene Glycol (Miralax) 17 gm PO BID [facility] Last Admin: 07/22/18 18:20 Dose: 17 gm Rosuvastatin Calcium (Crestor) 5 mg PO [facility] Last Admin: 07/21/18 22:28 Dose: 5 mg Vitamin A (Vitamin A & D Oint Ud Foilpak) 1 ea TOP BID PRN PRN Reason: Dry skin Last Admin: 07/20/18 17:45 Dose: 1 ea - Labs Labs: 07/22/18 06:50 07/22/18 06:50 PT 16.8 SECONDS (9.7-12.2) H 05/28/18 07:15 INR 1.5 05/28/18 07:15 APTT 34 SECONDS (21-34) 05/28/18 07:15 Attending/Attestation - Attestation I have personally seen and examined this patient.: Yes I have fully participated in the care of the patient.: Yes I have reviewed all pertinent clinical information, including history, physical exam and plan: Yes Notes (Text): seen and examined with resident and I agree with the documentation
[2018-07-20 07:33] LABS: BASO % 0.8 % (0.0-2.0); EOS # 0.1 K/uL (0.0-0.7); EOS % 1.8 % (0.0-4.0); HEMOGLOBIN 8.9 g/dL (11.0-16.0); LYMPH # 1.2 K/uL (1.0-4.3); LYMPH % 25.3 % (20.0-40.0); MEAN CELL VOLUME 83.6 fL (81.0-99.0); MEAN CORPUSCULAR HEMOGLOBIN 28.4 pg (27.0-31.0); MEAN PLATELET VOLUME 9.6 fL (7.2-11.7); MONO # 0.4 K/uL (0.0-0.8); MONO % 8.3 % (0.0-10.0); NEUT # 3.1 K/uL (1.8-7.0); NEUT % 63.8 % (50.0-75.0); RBC 3.12 Mil/uL (3.80-5.20); RED CELL DISTRIBUTION WIDTH 16.3 % (11.5-14.5); WHITE BLOOD COUNT 4.8 K/uL (4.8-10.8)
[2018-07-20] MEDS: (Novolog) Insulin Aspart, Recombinant 100 u/ml 10 ml vial SC SCH ×4 (07:57→22:00)
[2018-07-20 08:17] LABS: ALB/GLOB RATIO 0.8 (1.0-2.1); ALBUMIN 2.9 g/dL (3.5-5.0); ALT/SGPT 32 U/L (9-52); AST/SGOT 36 U/L (14-36); BLOOD UREA NITROGEN 7 mg/dL (7-17); CALCIUM 8.1 mg/dl (8.6-10.4); GFR NON-AFRICAN AMERICAN > 60
[2018-07-20 08:43] LABS: SQUAMOUS EPITHIAL 2 /hpf (0-5); URINE BACTERIA RARE (<OCC); URINE BILIRUBIN NEGATIVE (NEGATIVE); URINE BLOOD NEGATIVE (NEGATIVE); URINE CLARITY Clear (Clear); URINE COLOR Yellow (YELLOW); URINE GLUCOSE (UA) NORMAL (Normal); URINE LEUKOCYTE ESTERASE NEG Leu/uL (Negative); URINE PROTEIN 1+ mg/dL (NEGATIVE); URINE UROBILINOGEN NORMAL mg/dL (0.2-1.0)
[2018-07-20] MEDS: POLYETHYLENE GLYCOL 3350 17 GM/Dose PACKET GT SCH (10:17)
[2018-07-20] MEDS: Potassium Chloride 20 mEq/15 ml LIQ UD PO SCH (10:19)
[2018-07-20] MEDS: Sodium Chloride 0.9% 1,000 ML IV SCH (10:21)
[2018-07-20] MEDS: Vitamins A & D Oint UD Foilpak TOP PRN (17:45)
[2018-07-20] MEDS: Acetaminophen 650mg/20.3ml solution UD GT PRN (21:56)
[2018-07-20] MEDS: (Lantus) Insulin Glargine, Recombinant SC SCH (21:57)
[2018-07-21] MEDS: Ciprofloxacin 400mg/200ml D5W 400 MG/200 ML BAG IVPB SCH ×2 (01:47→13:48)
[2018-07-21] MEDS: Albuterol-Ipratrop 3 mg / 0.5 (3 ml) UD INH SCH ×4 (05:08→19:51)
[2018-07-21] MEDS: Sodium Chloride 0.9% 1,000 ML IV SCH (05:30)
--- NOTE | 2018-07-21 07:00 | CP.PCM.PN ---
<Arianne Burkett - Last Filed: 07/21/18 14:24> Subjective - Date & Time of Evaluation Date of Evaluation: 07/21/18 Time of Evaluation: 06:59 - Subjective Subjective: PGY-1 Arianne Burkett D.O. Medicine progress note for Dr. Negrete's service: imaging tech PCP Yamileth Patient was seen and examined this morning. Her sister is feeding her breakfast. She is tolerating it well. Denies nausea and vomiting. Patient is complaining of hand pain as they are still contracted and OT is working with her. Patient asks why her hands are like that and if they will ever get better. Patient denies pain elsewhere. Sister reports she is urinating and having BMs. Objective - Vital Signs/Intake and Output Vital Signs (last 24 hours): Temp Pulse Resp BP Pulse Ox 97.8 F 63 20 117/62 97 07/21/18 00:00 07/21/18 00:00 07/21/18 00:00 07/21/18 00:00 07/21/18 00:00 Intake and Output: 07/20/18 07/21/18 18:59 06:59 Intake Total 600 Balance 600 - Medications Medications: Current Medications Acetaminophen (Tylenol 650mg/20.3ml Solution Ud) 650 mg GT Q6 PRN PRN Reason: Temperature, Fever >100.4 F Last Admin: 07/20/18 21:56 Dose: 650 mg Albuterol/Ipratropium (Duoneb 3 Mg/0.5 Mg (3 Ml) Ud) 3 ml INH RQ4 [facility] Last Admin: 07/21/18 05:08 Dose: Not Given Amlodipine Besylate (Norvasc) 10 mg PO DAILY [facility] Last Admin: 07/20/18 10:17 Dose: 10 mg Aspirin (Aspirin Chewable) 81 mg PO DAILY [facility] Last Admin: 07/20/18 10:17 Dose: 81 mg Dextrose (Dextrose 50% Inj) 0 ml IV STAT PRN; Protocol PRN Reason: Hypoglycemia Protocol Last Admin: 18 16:15 Dose: 50 ml Dextrose (Glutose 15) 15 gm PO ONCE PRN; Protocol PRN Reason: Hypoglycemia Protocol Famotidine (Pepcid) 20 mg GT BID [facility] Last Admin: 07/20/18 17:46 Dose: 20 mg Glucagon (Glucagen Diagnostic Kit) 1 mg IM STAT PRN; Protocol PRN Reason: Hypoglycemia Protocol Heparin Sodium (Porcine) (Heparin) 5,000 units SC Q12 [facility] Last Admin: 07/20/18 21:57 Dose: 5,000 units Ciprofloxacin (Cipro 400mg/200ml Dsw) 400 mg in 200 mls @ 133 mls/hr IVPB Q12H [facility]; Protocol Last Admin: 07/21/18 01:47 Dose: 133 mls/hr Sodium Chloride (Sodium Chloride 0.9%) 1,000 mls @ 50 mls/hr IV .Q20H [facility] Last Admin: 07/20/18 10:21 Dose: 50 mls/hr Ibuprofen (Motrin Oral Susp) 200 mg PO Q6H PRN PRN Reason: Fever >100.4 F Last Admin: 07/14/18 09:40 Dose: 200 mg Insulin Aspart (Novolog) 0 unit SC ACHS [facility]; Protocol Last Admin: 07/20/18 22:00 Dose: Not Given Insulin Glargine (Lantus) 40 unit SC [facility] Last Admin: 07/20/18 21:57 Dose: Not Given Insulin Human Isoph/Insulin Regular (Novolin 70/30 (70/30 Units/Ml) 10 Ml) 15 units SC BID [facility] Last Admin: 06/26/18 09:27 Dose: 15 units Metoprolol Tartrate (Lopressor) 75 mg PO BID [facility] Last Admin: 07/20/18 17:46 Dose: 75 mg Ondansetron HCl (Zofran Inj) 4 mg IVP Q6H PRN PRN Reason: Nausea/Vomiting Last Admin: 07/17/18 22:31 Dose: 4 mg Polyethylene Glycol (Miralax) 17 gm GT BID [facility] Last Admin: 07/20/18 10:17 Dose: 17 gm Potassium Chloride (Potassium Chloride Oral Soln) 20 meq PO DAILY [facility] Last Admin: 07/20/18 10:19 Dose: 20 meq Rosuvastatin Calcium (Crestor) 5 mg PO HS [facility] Last Admin: 07/19/18 21:51 Dose: 5 mg Vitamin A (Vitamin A & D Oint Ud Foilpak) 1 ea TOP BID PRN PRN Reason: Dry skin Last Admin: 07/20/18 17:45 Dose: 1 ea - Labs Labs: 07/20/18 07:22 07/20/18 07:22 PT 16.8 SECONDS (9.7-12.2) H 05/28/18 07:15 INR 1.5 05/28/18 07:15 APTT 34 SECONDS (21-34) 05/28/18 07:15 - Constitutional Appears: No Acute Distress, Chronically Ill - Head Exam Head Exam: ATRAUMATIC, NORMAL INSPECTION - Eye Exam Eye Exam: EOMI, Normal appearance - ENT Exam ENT Exam: Mucous Membranes Moist - Neck Exam Additional comments: placed regular band-aid over previous trach site - Respiratory Exam Respiratory Exam: Clear to Ausculation Bilateral, NORMAL BREATHING PATTERN. absent: Respiratory Distress - Cardiovascular Exam Cardiovascular Exam: REGULAR RHYTHM, +S1, +S2 Additional comments: RUE PICC - GI/Abdominal Exam GI & Abdominal Exam: Soft. absent: Distended, Tenderness Additional comments: PEG - Extremities Exam Extremities Exam: Normal Capillary Refill. absent: Pedal Edema, Tenderness Additional comments: muscle wasting - Neurological Exam Neurological Exam: Alert, Awake. absent: Normal Gait Neuro motor strength exam: Left Upper Extremity: 5, Right Upper Extremity: 5, Left Lower Extremity: 5, Right Lower Extremity: 5 Additional comments: b/l hand contractures (R>L) - Psychiatric Exam Psychiatric exam: Normal Affect. absent: Suicidal Ideation - Skin Skin Exam: Dry, Intact, Normal Color, Warm Assessment and Plan - Assessment and Plan (Free Text) Assessment: Patient is a 52 year old female visiting from with probable past medical history of T2DM who was found unresponsive by on 05/01 (reportedly). EMS was called and patient was resuscitated and subsequently intubated on the field and brought to the ED. Code stroke was called, patient was subsequently admitted to ICU for close monitoring and evaluation for anoxic brain injury. Patient was noted on physical exam to have ring monge suggestive of suicidal attempt by hanging. [employer] involved and state high likelihood of suicidal attempt. Patient was treated for sepsis. Patient is s/p tracheostomy and PEG. Downgraded to telemetry. In June, able to be weaned of ventilator to trach collar w/ humidified oxygen and then finally off trach collar and O2 and now breathing independently. Patient now speaks full sentences, yet many words are jumbled and hard to understand. She follows commands well. She needs extensive physical therapy as she is still bed bound. Barium swallow indicated no abnormalities so PEG feeds stopped. Patient doing well on regular (bite-sized) diet. Continuing PEG for meds. New onset UTI- started cipro. However, sample was via Alvarado and repeat UA was clean. Will follow-up urine Cx. Temperature of 101.3 on 07/19- afebrile since. Will follow-up blood Cx, this far no growth. Patient was asked about possible suicide attempt. Patient denies suicidal ideation at this. Patient will need psychiatric consult once her speech is improved. Presently, the imaging tech is not able to understand most of what the patient says and the sister is mostly speaking for the patient. Patient is working with PT and OT daily and showing improvement. Plan: Anoxic brain injury, improving- 2/2 asphyxiation, suspect suicide attempt - Police involved when patient originally admitted- as per patient's family, the police will speak to patient when she is able to communicate better - Aspiration, seizure, fall precautions - S/p trach and PEG - Successfully decannulated on 07/14 - EEG (05/04): diffuse encephalopathy with burst suppression - Repeat EEG: severe non specific diffuse disturbances in cortical activity, brown matter dysfunction - Repeat CT head: no bleeding - MRI Brain: subacute favored over acute cerebral hypoxic insult with minimal involvement of the lower haris and the cerebellar hemispheres - Modified barium swallow 07/19: no abnormalities - Bite sized diet/thin liquids - Meds through PEG - Aggressive PT/OT/ST - Multipodus boots - Hand splints - Neurology consulted (Sherin/Guilherme) - Will get psychiatry consult once patient is able to communicate more clearly - Patient presently denies SI/PDW Cough, acute, mild - CXR 07/19: no active disease - Robitussin DM 5 mL Q4H PRN Fevers - Most recent 101.3 on 07/19, prior to that afebrile since 06/04 - CXR 07/19: no active disease - UA 07/20: nitrate neg, LE neg, WBC 6, lanny rare - UCx: no growth - Blood Cx 07/19: no growth >3 days - Ice packs, cooling blanket PRN - Tylenol 650 mg PO Q6H PRN - Motrin 200 mg Q6H PRN - Will remove PICC once peripheral IV access established - ID consulted (Nano) Type 2 diabetes mellitus, chronic - A1c 10.2 - Accuchecks ACHS - Hypoglycemic protocol - ISS medium dose - Decrease Lantus to 10 units SC QHS Hypertension, chronic - Vitals Q8H - Metoprolol tartrate 75 mg PO BID - Norvasc 10 mg PO daily Urinary tract infection, resolved - Alvarado discontinued 07/14 - UA (Alvarado): LE 3+, nitrate neg, WBC 58, mod lanny - UCx (Alvarado): E. coli, Enterococcus faecalis - UA 07/20: nitrate neg, LE neg, WBC 6, lanny rare - UCx: no growth - Cipro 500 mg IV Q12H- started 07/19 - ID consulted (Nano) Vomiting, resolved - Most recent emesis 07/17 - PEG feeds stopped- on PO diet - Continue using PEG for meds, flushes - Aspiration precautions - AXR (07/01): no significant abnormalities, PEG in place - CT A/P (06/06): no obstruction - Pepcid 20 mg PO BID - Zofran 4 mg IV Q6H PRN - GI consulted (Yobani) Leukocytosis, resolved - CXR (05/25): no acute pathology - Doppler b/l UE and LE (05/18): negative for DVTs - UCx (Alvarado): E. coli, Enterococcus faecalis - Repeat UA and Cx pending - Most recent Blood Cx from vein (05/21) and PICC (05/17): no growth - ID consulted (Nano) Respiratory failure, resolved - Duonebs Q6H - Decannulated on 07/14 - Laryngoscopy 06/18: vocal cords functional - Pulmonology consulted (Mika) Acute renal injury with oliguria, resolved - Now producing appropriate amount of urine - Likely due to dehydration - No hemodialysis needed - Nephrology consulted (Arvind) Constipation, resolved - Miralax 17 g PO BID NSTEMI, resolved - ASA 81 mg PO daily - Crestor 5 mg PO QHS - Cardiology consulted (Victor Hugo) Transaminitis, resolved - Likely shock liver - Follow LFTs PPx: VTE: Heparin 5,000 units SC Q12H GI: Pepcid 20 mg PEG BID Code status: full code Case was discussed with attending, Dr. Negrete. <Emmett Negrete - Last Filed: 07/22/18 20:10> Objective - Vital Signs/Intake and Output Vital Signs (last 24 hours): Temp Pulse Resp BP Pulse Ox 97.7 F 80 20 122/69 94 L 07/21/18 07:00 07/21/18 07:00 07/21/18 07:00 07/21/18 09:33 07/21/18 07:00 Intake and Output: 07/21/18 07/21/18 06:59 18:59 Intake Total 885 Balance 885 - Medications Medications: Current Medications Acetaminophen (Tylenol 650mg/20.3ml Solution Ud) 650 mg GT Q6 PRN PRN Reason: Temperature, Fever >100.4 F Last Admin: 07/20/18 21:56 Dose: 650 mg Albuterol/Ipratropium (Duoneb 3 Mg/0.5 Mg (3 Ml) Ud) 3 ml INH RQ6 [facility] Amlodipine Besylate (Norvasc) 10 mg PO DAILY [facility] Last Admin: 07/21/18 09:34 Dose: 10 mg Aspirin (Aspirin Chewable) 81 mg PO DAILY [facility] Last Admin: 07/21/18 09:34 Dose: 81 mg Dextrose (Dextrose 50% Inj) 0 ml IV STAT PRN; Protocol PRN Reason: Hypoglycemia Protocol Last Admin: 06/21/18 16:15 Dose: 50 ml Dextrose (Glutose 15) 15 gm PO ONCE PRN; Protocol PRN Reason: Hypoglycemia Protocol Famotidine (Pepcid) 20 mg GT BID [facility] Last Admin: 07/21/18 09:34 Dose: 20 mg Glucagon (Glucagen Diagnostic Kit) 1 mg IM STAT PRN; Protocol PRN Reason: Hypoglycemia Protocol Guaifenesin/Dextromethorphan (Robitussin Dm) 5 ml PO Q4H PRN PRN Reason: Cough Heparin Sodium (Porcine) (Heparin) 5,000 units SC Q12 [facility] Last Admin: 07/21/18 09:34 Dose: 5,000 units Ciprofloxacin (Cipro 400mg/200ml Dsw) 400 mg in 200 mls @ 133 mls/hr IVPB Q12H [facility]; Protocol Last Admin: 07/21/18 13:48 Dose: 133 mls/hr Ibuprofen (Motrin Oral Susp) 200 mg PO Q6H PRN PRN Reason: Fever >100.4 F Last Admin: 07/14/18 09:40 Dose: 200 mg Insulin Aspart (Novolog) 0 unit SC ACHS [facility]; Protocol Last Admin: 07/21/18 13:38 Dose: Not Given Insulin Glargine (Lantus) 10 unit SC [facility] Metoprolol Tartrate (Lopressor) 75 mg PO BID [facility] Last Admin: 07/21/18 09:33 Dose: 75 mg Ondansetron HCl (Zofran Inj) 4 mg IVP Q6H PRN PRN Reason: Nausea/Vomiting Last Admin: 07/17/18 22:31 Dose: 4 mg Polyethylene Glycol (Miralax) 17 gm GT BID [facility] Last Admin: 07/21/18 09:34 Dose: 17 gm Rosuvastatin Calcium (Crestor) 5 mg PO HS [facility] Last Admin: 07/19/18 21:51 Dose: 5 mg Vitamin A (Vitamin A & D Oint Ud Foilpak) 1 ea TOP BID PRN PRN Reason: Dry skin Last Admin: 07/20/18 17:45 Dose: 1 ea - Labs Labs: 07/21/18 07:02 07/21/18 07:02 PT 16.8 SECONDS (9.7-12.2) H 05/28/18 07:15 INR 1.5 05/28/18 07:15 APTT 34 SECONDS (21-34) 05/28/18 07:15 Attending/Attestation - Attestation I have personally seen and examined this patient.: Yes I have fully participated in the care of the patient.: Yes I have reviewed all pertinent clinical information, including history, physical exam and plan: Yes Notes (Text): seen and examined with the resident and I agree with the documentation
[2018-07-21 07:24] LABS: BASO % 1.6 % (0.0-2.0); EOS % 0.9 % (0.0-4.0); HEMOGLOBIN 8.4 g/dL (11.0-16.0); LYMPH # 1.6 K/uL (1.0-4.3); LYMPH % 55.8 % (20.0-40.0); MEAN CELL VOLUME 82.7 fL (81.0-99.0); MEAN CORPUSCULAR HEMOGLOBIN 27.6 pg (27.0-31.0); MEAN CORPUSCULAR HGB CONC 33.4 g/dL (33.0-37.0); MONO # 0.5 K/uL (0.0-0.8); NEUT # 0.7 K/uL (1.8-7.0); NEUT % 23.7 % (50.0-75.0); NRBC % 0.1 % (0.0-2.0); RBC 3.04 Mil/uL (3.80-5.20); RED CELL DISTRIBUTION WIDTH 16.4 % (11.5-14.5)
[2018-07-21 07:32] LABS: WHITE BLOOD COUNT 2.8 K/uL (4.8-10.8)
[2018-07-21 07:38] LABS: ALB/GLOB RATIO 0.8 (1.0-2.1); ALBUMIN 2.7 g/dL (3.5-5.0); ALT/SGPT 30 U/L (9-52); AST/SGOT 41 U/L (14-36); BLOOD UREA NITROGEN 6 mg/dL (7-17); CALCIUM 7.9 mg/dl (8.6-10.4); GFR NON-AFRICAN AMERICAN > 60
[2018-07-21] MEDS: (Novolog) Insulin Aspart, Recombinant 100 u/ml 10 ml vial SC SCH ×4 (07:58→22:22)
[2018-07-21] MEDS: POLYETHYLENE GLYCOL 3350 17 GM/Dose PACKET GT SCH ×2 (09:34→19:03)
[2018-07-21] MEDS: Acetaminophen 650mg/20.3ml solution UD GT PRN (20:15)
[2018-07-21] MEDS: (Lantus) Insulin Glargine, Recombinant SC SCH (22:22)
[2018-07-22] MEDS: Acetaminophen 650mg/20.3ml solution UD GT PRN (02:09)
[2018-07-22] MEDS: Ciprofloxacin 400mg/200ml D5W 400 MG/200 ML BAG IVPB SCH (02:10)
[2018-07-22] MEDS: Albuterol-Ipratrop 3 mg / 0.5 (3 ml) UD INH SCH ×4 (02:42→20:53)
--- NOTE | 2018-07-22 07:04 | CP.PCM.PN ---
<Arianne Burkett - Last Filed: 07/22/18 14:14> Subjective - Date & Time of Evaluation Date of Evaluation: 07/22/18 Time of Evaluation: 07:03 - Subjective Subjective: PGY-1 Arianne Burkett D.O. Medicine progress note for Dr. Negrete's service: Patient's friend translated in Italian: Patient was seen and examined this morning. He sister is feeding her. She has no acute complaints. No issues over night as per nursing. Discussed with patient's son that plan is for patient to move in with him in the [place]. Discussed with shannon flores the importance of continuing PT/OT/ST even when therapists not physically present. Objective - Vital Signs/Intake and Output Vital Signs (last 24 hours): Temp Pulse Resp BP Pulse Ox 97.5 F L 58 L 20 110/65 95 07/22/18 00:00 07/22/18 00:00 07/22/18 00:00 07/22/18 00:00 07/22/18 00:00 Intake and Output: 07/22/18 07/22/18 06:59 18:59 Intake Total 765 Balance 765 - Medications Medications: Current Medications Acetaminophen (Tylenol 650mg/20.3ml Solution Ud) 650 mg GT Q6 PRN PRN Reason: Temperature, Fever >100.4 F Last Admin: 07/22/18 02:09 Dose: 650 mg Albuterol/Ipratropium (Duoneb 3 Mg/0.5 Mg (3 Ml) Ud) 3 ml INH RQ6 [facility] Last Admin: 07/22/18 02:42 Dose: Not Given Amlodipine Besylate (Norvasc) 10 mg PO DAILY [facility] Last Admin: 07/21/18 09:34 Dose: 10 mg Aspirin (Aspirin Chewable) 81 mg PO DAILY [facility] Last Admin: 07/21/18 09:34 Dose: 81 mg Dextrose (Dextrose 50% Inj) 0 ml IV STAT PRN; Protocol PRN Reason: Hypoglycemia Protocol Last Admin: 06/21/18 16:15 Dose: 50 ml Dextrose (Glutose 15) 15 gm PO ONCE PRN; Protocol PRN Reason: Hypoglycemia Protocol Famotidine (Pepcid) 20 mg GT BID [facility] Last Admin: 07/21/18 19:04 Dose: 20 mg Glucagon (Glucagen Diagnostic Kit) 1 mg IM STAT PRN; Protocol PRN Reason: Hypoglycemia Protocol Guaifenesin/Dextromethorphan (Robitussin Dm) 5 ml PO Q4H PRN PRN Reason: Cough Heparin Sodium (Porcine) (Heparin) 5,000 units SC Q12 [facility] Last Admin: 07/21/18 22:21 Dose: 5,000 units Ciprofloxacin (Cipro 400mg/200ml Dsw) 400 mg in 200 mls @ 133 mls/hr IVPB Q12H [facility]; Protocol Last Admin: 07/22/18 02:10 Dose: 133 mls/hr Ibuprofen (Motrin Oral Susp) 200 mg PO Q6H PRN PRN Reason: Fever >100.4 F Last Admin: 07/14/18 09:40 Dose: 200 mg Insulin Aspart (Novolog) 0 unit SC [facility]; Protocol Last Admin: 07/21/18 22:22 Dose: Not Given Insulin Glargine (Lantus) 10 unit SC [facility] Last Admin: 07/21/18 22:22 Dose: 10 units Metoprolol Tartrate (Lopressor) 75 mg PO BID [facility] Last Admin: 07/21/18 19:03 Dose: 75 mg Ondansetron HCl (Zofran Inj) 4 mg IVP Q6H PRN PRN Reason: Nausea/Vomiting Last Admin: 07/17/18 22:31 Dose: 4 mg Polyethylene Glycol (Miralax) 17 gm GT BID [facility] Last Admin: 07/21/18 19:03 Dose: 17 gm Rosuvastatin Calcium (Crestor) 5 mg PO [facility] Last Admin: 07/21/18 22:28 Dose: 5 mg Vitamin A (Vitamin A & D Oint Ud Foilpak) 1 ea TOP BID PRN PRN Reason: Dry skin Last Admin: 07/20/18 17:45 Dose: 1 ea - Labs Labs: 07/21/18 07:02 07/21/18 07:02 PT 16.8 SECONDS (9.7-12.2) H 05/28/18 07:15 INR 1.5 05/28/18 07:15 APTT 34 SECONDS (21-34) 05/28/18 07:15 - Additional Findings Additional findings: - Constitutional Appears: No Acute Distress, Chronically Ill - Head Exam Head Exam: ATRAUMATIC, NORMAL INSPECTION - Eye Exam Eye Exam: EOMI, Normal appearance - ENT Exam ENT Exam: Mucous Membranes Moist - Neck Exam Additional comments: placed regular band-aid over previous trach site - Respiratory Exam Respiratory Exam: Clear to Ausculation Bilateral, NORMAL BREATHING PATTERN. absent: Respiratory Distress - Cardiovascular Exam Cardiovascular Exam: REGULAR RHYTHM, +S1, +S2 Additional comments: RUE PICC - GI/Abdominal Exam GI & Abdominal Exam: Soft. absent: Distended, Tenderness Additional comments: PEG - Extremities Exam Extremities Exam: Normal Capillary Refill. absent: Pedal Edema, Tenderness Additional comments: muscle wasting - Neurological Exam Neurological Exam: Alert, Awake. absent: Normal Gait Neuro motor strength exam: Left Upper Extremity: 5, Right Upper Extremity: 5, Left Lower Extremity: 5, Right Lower Extremity: 5 Additional comments: b/l hand contractures (R>L) - Psychiatric Exam Psychiatric exam: Normal Affect. absent: Suicidal Ideation - Skin Skin Exam: Dry, Intact, Normal Color, Warm Assessment and Plan - Assessment and Plan (Free Text) Assessment: Patient is a 52 year old female visiting from with probable past medical history of T2DM who was found unresponsive by on 05/01 (reportedly). EMS was called and patient was resuscitated and subsequently intubated on the field and brought to the ED. Code stroke was called, patient was subsequently admitted to ICU for close monitoring and evaluation for anoxic brain injury. Patient was noted on physical exam to have ring monge suggestive of suicidal attempt by hanging. [employer] involved and state high likelihood of suicidal attempt. Patient was treated for sepsis. Patient is s/p tracheostomy and PEG. Downgraded to telemetry. In June, able to be weaned of ventilator to trach collar w/ humidified oxygen and then finally off trach collar and O2 and now breathing independently. Patient now speaks full sentences, yet many words are jumbled and hard to understand. She follows commands well. She needs extensive physical therapy as she is still bed bound. Barium swallow indicated no abnormalities so PEG feeds stopped. Patient doing well on regular (bite-sized) diet. Will transition patient to oral medications. New onset UTI- started cipro. However, sample was via [facility] and repeat UA was clean. Will follow-up urine Cx. Temperature of 101.3 on 07/19- afebrile since. Will follow-up blood Cx, thus far no growth. Patient was asked about possible suicide attempt. Patient denies suicidal ideation at this. Patient will need psychiatric consult once her speech is improved. Presently, the livestock caretaker is not able to understand most of what the patient says and the sister is mostly speaking for the patient. Patient is working with PT and OT daily and showing improvement. Plan: Anoxic brain injury, improving- 2/2 asphyxiation, suspect suicide attempt - Police involved when patient originally admitted- as per patient's family, the police will speak to patient when she is able to communicate better - Aspiration, seizure, fall precautions - S/p trach and PEG - Successfully decannulated on 07/14 - No longer using PEG as of 07/22 - EEG (05/04): diffuse encephalopathy with burst suppression - Repeat EEG: severe non specific diffuse disturbances in cortical activity, brown matter dysfunction - Repeat CT head: no bleeding - MRI Brain: subacute favored over acute cerebral hypoxic insult with minimal involvement of the lower haris and the cerebellar hemispheres - Modified barium swallow 07/19: no abnormalities - Bite sized diet/thin liquids - Meds through PEG - Aggressive PT/OT/ST - Multipodus boots - Hand splints - Neurology consulted (Sherin/Guilherme) - Will get psychiatry consult once patient is able to communicate more clearly - Patient presently denies SI/PDW Cough, acute, mild - CXR 07/19: no active disease - Robitussin DM 5 mL Q4H PRN Fevers - Most recent 101.3 on 07/19, prior to that afebrile since 06/04 - CXR 07/19: no active disease - UA 07/20: nitrate neg, LE neg, WBC 6, lanny rare - UCx: no growth - Blood Cx 07/19: no growth >3 days - Ice packs, cooling blanket PRN - Tylenol 650 mg PO Q6H PRN - Motrin 200 mg Q6H PRN - Will remove PICC once peripheral IV access established - ID consulted (Nano) Type 2 diabetes mellitus, chronic - A1c 10.2 - Accuchecks ACHS - Hypoglycemic protocol - ISS medium dose - Lantus 10 units SC QHS Hypertension, chronic - Vitals Q8H - Metoprolol tartrate 75 mg PO BID - Norvasc 10 mg PO daily Urinary tract infection, resolved - Alvarado discontinued 07/14 - UA (Alvarado): LE 3+, nitrate neg, WBC 58, mod lanny - UCx (Alvarado): E. coli, Enterococcus faecalis - UA 07/20: nitrate neg, LE neg, WBC 6, lanny rare - UCx: no growth - Change Cipro to PO- 400 mg Q12H- (IV from 07/19, PO from 07/22) - ID consulted (Nano) Vomiting, resolved - Most recent emesis 07/17 - PEG feeds stopped- on PO diet - Discontinue PEG use completely on 07/22 - Aspiration precautions - AXR (07/01): no significant abnormalities, PEG in place - CT A/P (06/06): no obstruction - Pepcid 20 mg PO BID - Zofran 4 mg IV Q6H PRN - GI consulted (Yobani) Leukocytosis, resolved - CXR (05/25): no acute pathology - Doppler b/l UE and LE (05/18): negative for DVTs - UCx (Jenny): E. coli, Enterococcus faecalis - Repeat UA and Cx pending - Most recent Blood Cx (07/19): no growth - ID consulted (Nano) Respiratory failure, resolved - Duonebs Q6H - Decannulated on 07/14 - Laryngoscopy 06/18: vocal cords functional - Pulmonology consulted (Mika) Acute renal injury with oliguria, resolved - Now producing appropriate amount of urine - Likely due to dehydration - No hemodialysis needed - Nephrology consulted (Arvind) Constipation, resolved - Miralax 17 g PO BID NSTEMI, resolved - ASA 81 mg PO daily - Crestor 5 mg PO QHS - Cardiology consulted (Victor Hugo) Transaminitis, resolved - Likely shock liver - Follow LFTs PPx: VTE: Heparin 5,000 units SC Q12H GI: Pepcid 20 mg PO BID Code status: full code Case was discussed with attending, Dr. Negrete. <Emmett Negrete - Last Filed: 07/22/18 20:09> Objective - Vital Signs/Intake and Output Vital Signs (last 24 hours): Temp Pulse Resp BP Pulse Ox 97.1 F L 64 20 118/61 98 07/22/18 16:00 07/22/18 16:00 07/22/18 16:00 07/22/18 18:16 07/22/18 16:00 Intake and Output: 07/22/18 07/23/18 18:59 06:59 Intake Total 700 Balance 700 - Medications Medications: Current Medications Acetaminophen (Tylenol 650mg/20.3ml Solution Ud) 650 mg PO Q6 PRN PRN Reason: Fever >100.4 F or mild pain Albuterol/Ipratropium (Duoneb 3 Mg/0.5 Mg (3 Ml) Ud) 3 ml INH RQ6 [facility] Last Admin: 07/22/18 15:28 Dose: Not Given Amlodipine Besylate (Norvasc) 10 mg PO DAILY [facility] Last Admin: 07/22/18 10:18 Dose: 10 mg Aspirin (Aspirin Chewable) 81 mg PO DAILY [facility] Last Admin: 07/22/18 10:18 Dose: 81 mg Ciprofloxacin (Cipro) 500 mg PO BID [facility]; Protocol Last Admin: 07/22/18 18:16 Dose: 500 mg Dextrose (Dextrose 50% Inj) 0 ml IV STAT PRN; Protocol PRN Reason: Hypoglycemia Protocol Last Admin: 06/21/18 16:15 Dose: 50 ml Dextrose (Glutose 15) 15 gm PO ONCE PRN; Protocol PRN Reason: Hypoglycemia Protocol Famotidine (Pepcid) 20 mg PO BID [facility] Last Admin: 07/22/18 18:16 Dose: 20 mg Glucagon (Glucagen Diagnostic Kit) 1 mg IM STAT PRN; Protocol PRN Reason: Hypoglycemia Protocol Guaifenesin/Dextromethorphan (Robitussin Dm) 5 ml PO Q4H PRN PRN Reason: Cough Last Admin: 07/22/18 08:21 Dose: 5 ml Heparin Sodium (Porcine) (Heparin) 5,000 units SC Q12 [facility] Last Admin: 07/22/18 10:15 Dose: 5,000 units Ibuprofen (Motrin Oral Susp) 200 mg PO Q6H PRN PRN Reason: Fever >100.4 F or mild pain Insulin Aspart (Novolog) 0 unit SC [facility]S [facility]; Protocol Last Admin: 07/22/18 16:56 Dose: Not Given Insulin Glargine (Lantus) 10 unit SC HS [facility] Last Admin: 07/21/18 22:22 Dose: 10 units Metoprolol Tartrate (Lopressor) 75 mg PO BID [facility] Last Admin: 07/22/18 18:16 Dose: 75 mg Ondansetron HCl (Zofran Inj) 4 mg IVP Q6H PRN PRN Reason: Nausea/Vomiting Last Admin: 07/17/18 22:31 Dose: 4 mg Polyethylene Glycol (Miralax) 17 gm PO BID [facility] Last Admin: 07/22/18 18:20 Dose: 17 gm Rosuvastatin Calcium (Crestor) 5 mg PO HS [facility] Last Admin: 07/21/18 22:28 Dose: 5 mg Vitamin A (Vitamin A & D Oint Ud Foilpak) 1 ea TOP BID PRN PRN Reason: Dry skin Last Admin: 07/20/18 17:45 Dose: 1 ea - Labs Labs: 07/22/18 06:50 07/22/18 06:50 PT 16.8 SECONDS (9.7-12.2) H 05/28/18 07:15 INR 1.5 05/28/18 07:15 APTT 34 SECONDS (21-34) 05/28/18 07:15 Attending/Attestation - Attestation I have personally seen and examined this patient.: Yes I have fully participated in the care of the patient.: Yes I have reviewed all pertinent clinical information, including history, physical exam and plan: Yes Notes (Text): Look pleasant today,She said hi to me when I entered her room. doing better discussed with family.Discussed about discharge plan
[2018-07-22 07:35] LABS: EOS % 0.6 % (0.0-4.0); HEMOGLOBIN 9.1 g/dL (11.0-16.0); LYMPH # 2.2 K/uL (1.0-4.3); LYMPH % 67.8 % (20.0-40.0); MEAN CELL VOLUME 82.6 fL (81.0-99.0); MEAN CORPUSCULAR HEMOGLOBIN 27.5 pg (27.0-31.0); MEAN CORPUSCULAR HGB CONC 33.3 g/dL (33.0-37.0); MEAN PLATELET VOLUME 9.9 fL (7.2-11.7); MONO # 0.4 K/uL (0.0-0.8); MONO % 12.2 % (0.0-10.0); NEUT # 0.6 K/uL (1.8-7.0); NEUT % 18.4 % (50.0-75.0); NRBC % 0.5 % (0.0-2.0); RBC 3.3 Mil/uL (3.80-5.20); RED CELL DISTRIBUTION WIDTH 16.4 % (11.5-14.5); WHITE BLOOD COUNT 3.2 K/uL (4.8-10.8)
[2018-07-22 07:45] LABS: ALB/GLOB RATIO 0.8 (1.0-2.1); ALBUMIN 2.8 g/dL (3.5-5.0); ALT/SGPT 23 U/L (9-52); AST/SGOT 47 U/L (14-36); BLOOD UREA NITROGEN 4 mg/dL (7-17); CALCIUM 8.2 mg/dl (8.6-10.4); GFR NON-AFRICAN AMERICAN > 60
[2018-07-22] MEDS ORDERED: Acetaminophen 650mg/20.3ml solution UD GT PRN (07:45)
[2018-07-22] MEDS: (Novolog) Insulin Aspart, Recombinant 100 u/ml 10 ml vial SC SCH ×4 (08:17→22:00)
[2018-07-22] MEDS: guaiFENesin DM 100 mg-10 mg/5 ml UD PO PRN (08:21)
[2018-07-22] MEDS: POLYETHYLENE GLYCOL 3350 17 GM/Dose PACKET GT SCH (10:16)
[2018-07-22] MEDS: POLYETHYLENE GLYCOL 3350 17 GM/Dose PACKET PO SCH (18:20)
[2018-07-22] MEDS: Acetaminophen 650mg/20.3ml solution UD PO PRN (20:34)
[2018-07-22] MEDS: (Lantus) Insulin Glargine, Recombinant SC SCH (22:04)
[2018-07-23] MEDS: Albuterol-Ipratrop 3 mg / 0.5 (3 ml) UD INH SCH ×5 (01:34→20:33)
[2018-07-23] MEDS: Acetaminophen 650mg/20.3ml solution UD PO PRN ×2 (02:58→21:32)
--- NOTE | 2018-07-23 06:27 | CP.PCM.PN ---
<Arianne Burkett - Last Filed: 07/23/18 18:05> Subjective - Date & Time of Evaluation Date of Evaluation: 07/23/18 Time of Evaluation: 06:23 - Subjective Subjective: PGY-1 Arianne Burkett D.O. Medicine progress note for Dr. Negrete's service: Patient was seen and examined this morning. Sister is at bedside. Patient has no acute complaints. She is tolerating PO diet and meds. Her hand contractions continue to bother her but she is working on exercises. Spoke to case management and PT regarding discharge planning. They will talk to family to start making arrangements for outpatient care. Primary care will be [facility]. Objective - Vital Signs/Intake and Output Vital Signs (last 24 hours): Temp Pulse Resp BP Pulse Ox 98 F 60 20 112/64 96 07/23/18 00:00 07/23/18 00:00 07/23/18 00:00 07/23/18 00:00 07/23/18 00:00 Intake and Output: 07/22/18 07/23/18 18:59 06:59 Intake Total 700 1000 Balance 700 1000 - Medications Medications: Current Medications Acetaminophen (Tylenol 650mg/20.3ml Solution Ud) 650 mg PO Q6 PRN PRN Reason: Fever >100.4 F or mild pain Last Admin: 07/23/18 02:58 Dose: 650 mg Albuterol/Ipratropium (Duoneb 3 Mg/0.5 Mg (3 Ml) Ud) 3 ml INH RQ6 [facility] Last Admin: 07/23/18 01:34 Dose: Not Given Amlodipine Besylate (Norvasc) 10 mg PO DAILY [facility] Last Admin: 07/22/18 10:18 Dose: 10 mg Aspirin (Aspirin Chewable) 81 mg PO DAILY [facility] Last Admin: 07/22/18 10:18 Dose: 81 mg Ciprofloxacin (Cipro) 500 mg PO BID [facility]; Protocol Last Admin: 07/22/18 18:16 Dose: 500 mg Dextrose (Dextrose 50% Inj) 0 ml IV STAT PRN; Protocol PRN Reason: Hypoglycemia Protocol Last Admin: 06/21/18 16:15 Dose: 50 ml Dextrose (Glutose 15) 15 gm PO ONCE PRN; Protocol PRN Reason: Hypoglycemia Protocol Famotidine (Pepcid) 20 mg PO BID [facility] Last Admin: 07/22/18 18:16 Dose: 20 mg Glucagon (Glucagen Diagnostic Kit) 1 mg IM STAT PRN; Protocol PRN Reason: Hypoglycemia Protocol Guaifenesin/Dextromethorphan (Robitussin Dm) 5 ml PO Q4H PRN PRN Reason: Cough Last Admin: 07/22/18 08:21 Dose: 5 ml Heparin Sodium (Porcine) (Heparin) 5,000 units SC Q12 [facility] Last Admin: 07/22/18 22:03 Dose: 5,000 units Ibuprofen (Motrin Oral Susp) 200 mg PO Q6H PRN PRN Reason: Fever >100.4 F or mild pain Insulin Aspart (Novolog) 0 unit SC [facility]; Protocol Last Admin: 07/22/18 16:56 Dose: Not Given Insulin Glargine (Lantus) 10 unit SC [facility] Last Admin: 07/22/18 22:04 Dose: 10 units Metoprolol Tartrate (Lopressor) 75 mg PO BID [facility] Last Admin: 07/22/18 18:16 Dose: 75 mg Ondansetron HCl (Zofran Inj) 4 mg IVP Q6H PRN PRN Reason: Nausea/Vomiting Last Admin: 07/17/18 22:31 Dose: 4 mg Polyethylene Glycol (Miralax) 17 gm PO BID [facility] Last Admin: 07/22/18 18:20 Dose: 17 gm Rosuvastatin Calcium (Crestor) 5 mg PO [facility] Last Admin: 07/22/18 22:03 Dose: 5 mg Vitamin A (Vitamin A & D Oint Ud Foilpak) 1 ea TOP BID PRN PRN Reason: Dry skin Last Admin: 07/20/18 17:45 Dose: 1 ea - Labs Labs: 07/22/18 06:50 07/22/18 06:50 PT 16.8 SECONDS (9.7-12.2) H 05/28/18 07:15 INR 1.5 05/28/18 07:15 APTT 34 SECONDS (21-34) 05/28/18 07:15 - Additional Findings Additional findings: - Constitutional Appears: No Acute Distress, Chronically Ill - Head Exam Head Exam: ATRAUMATIC, NORMAL INSPECTION - Eye Exam Eye Exam: EOMI, Normal appearance - ENT Exam ENT Exam: Mucous Membranes Moist - Neck Exam Additional comments: regular band-aid over previous trach site - Respiratory Exam Respiratory Exam: Clear to Ausculation Bilateral, NORMAL BREATHING PATTERN. absent: Respiratory Distress - Cardiovascular Exam Cardiovascular Exam: REGULAR RHYTHM, +S1, +S2 Additional comments: - GI/Abdominal Exam GI & Abdominal Exam: Soft. absent: Distended, Tenderness Additional comments: PEG - Extremities Exam Extremities Exam: Normal Capillary Refill. absent: Pedal Edema, Tenderness Additional comments: muscle wasting - Neurological Exam Neurological Exam: Alert, Awake. absent: Normal Gait Neuro motor strength exam: Left Upper Extremity: 5, Right Upper Extremity: 5, Left Lower Extremity: 5, Right Lower Extremity: 5 Additional comments: b/l hand contractures (R>L)- improving - Psychiatric Exam Psychiatric exam: Normal Affect. absent: Suicidal Ideation - Skin Skin Exam: Dry, Intact, Normal Color, Warm Assessment and Plan - Assessment and Plan (Free Text) Assessment: Patient is a 52 year old female visiting from with probable past medical history of T2DM who was found unresponsive by on 05/01 (reportedly). EMS was called and patient was resuscitated and subsequently intubated on the field and brought to the ED. Code stroke was called, patient was subsequently admitted to ICU for close monitoring and evaluation for anoxic brain injury. Patient was noted on physical exam to have ring monge suggestive of suicidal attempt by hanging. [employer] involved and state high likelihood of suicidal attempt. Patient was treated for sepsis. Patient is s/p tracheostomy and PEG. Downgraded to telemetry. In June, able to be weaned of ventilator to trach collar w/ humidified oxygen and then finally off trach collar and O2 and now breathing independently. Patient now speaks full sentences, yet many words are jumbled and hard to understand. She follows commands well. She needs extensive physical therapy as she is still bed bound. Barium swallow indicated no abnormalities so PEG feeds stopped. Patient doing well on regular (bite-sized) diet. Will irby sition patient to oral medications. New onset UTI- started cipro. However, sample was via Alvarado and repeat UA was clean. Will follow-up urine Cx. Temperature of 101.3 on 07/19- afebrile since. Will follow-up blood Cx, thus far no growth. Patient was asked about possible suicide attempt. Patient denies suicidal ideation at this. Patient will need psychiatric consult once her speech is improved. Presently, the electrical mechanic is not able to understand most of what the patient says and the sister is mostly speaking for the patient. Patient is working with PT and OT daily and showing improvement. Discussed discharge planning with family- son says that he is getting apartment in [place] for the tiffany ent to move in with him when she is ready. Case management and SW working on discharge planning. Plan: Anoxic brain injury, improving- 2/2 asphyxiation, suspect suicide attempt - Police involved when patient originally admitted- as per patient's family, the police will speak to patient when she is able to communicate better - Aspiration, seizure, fall precautions - S/p trach and PEG - Successfully decannulated on 07/14 - No longer using PEG as of 07/22 - Consider PEG removal soon - EEG (05/04): diffuse encephalopathy with burst suppression - Repeat EEG: severe non specific diffuse disturbances in cortical activity, brown matter dysfunction - Repeat CT head: no bleeding - MRI Brain: subacute favored over acute cerebral hypoxic insult with minimal involvement of the lower haris and the cerebellar hemispheres - Modified barium swallow 07/19: no abnormalities - Bite sized diet/thin liquids - PO meds - Aggressive PT/OT/ST - Multipodus boots - Hand splints - Neurology consulted (Sherin/Guilherme) - Will get psychiatry consult once patient is able to communicate more clearly - Patient presently denies SI/PDW Cough, acute, mild - CXR 07/19: no active disease - Robitussin DM 5 mL Q4H PRN Type 2 diabetes mellitus, chronic - A1c 10.2- rechack as outpatient - Accuchecks ACHS - Hypoglycemic protocol - ISS medium dose - Discontinue Lantus 10 units SC QHS - Start Metformin 500 mg PO BID Hypertension, chronic - Vitals Q8H - Decrease Metoprolol tartrate to 50 mg PO BID - Discontinue Norvasc 10 mg PO daily - Start Lisinopril 2.5 mg PO daily Fevers, resolved - Most recent 101.3 on 07/19, prior to that afebrile since 06/04 - CXR 07/19: no active disease - UA 07/20: nitrate neg, LE neg, WBC 6, lanny rare - UCx: no growth - Blood Cx 07/19: no growth >3 days - Ice packs, cooling blanket PRN - Tylenol 650 mg PO Q6H PRN - Motrin 200 mg Q6H PRN - PICC removed 07/22 - ID consulted (Nano) Urinary tract infection, resolved - Alvarado discontinued 07/14 - UA (Alvarado): LE 3+, nitrate neg, WBC 58, mod lanny - UCx (Alvarado): E. coli, Enterococcus faecalis - UA 07/20: nitrate neg, LE neg, WBC 6, lanny rare - UCx: no growth - Discontinue Cipro 500 mg PO Q12H - ID consulted (Nano) Vomiting, resolved - Most recent emesis 07/17 - PEG feeds stopped- on PO diet - Discontinue PEG use completely on 07/22 - Aspiration precautions - AXR (07/01): no significant abnormalities, PEG in place - CT A/P (06/06): no obstruction - Pepcid 20 mg PO BID - Zofran 4 mg IV Q6H PRN - GI consulted (Yobani) Leukocytosis, resolved - CXR (05/25): no acute pathology - Doppler b/l UE and LE (05/18): negative for DVTs - UCx (Alvarado): E. coli, Enterococcus faecalis - Repeat UA and Cx pending - Most recent Blood Cx (07/19): no growth - ID consulted (Nano) Respiratory failure, resolved - Duonebs Q6H - Decannulated on 07/14 - Laryngoscopy 06/18: vocal cords functional - Pulmonology consulted (Mika) Acute renal injury with oliguria, resolved - Now producing appropriate amount of urine - Likely due to dehydration - No hemodialysis needed - Nephrology consulted (Arvind) Constipation, resolved - Miralax 17 g PO BID NSTEMI, resolved - ASA 81 mg PO daily - Crestor 5 mg PO QHS - Cardiology consulted (Victor Hugo) Transaminitis, resolved - Likely shock liver - Follow LFTs PPx: VTE: Heparin 5,000 units SC Q12H GI: Pepcid 20 mg PO BID Code status: full code Case was discussed with attending, Dr. Negrete. <Emmett Negrete - Last Filed: 07/24/18 17:54> Objective - Vital Signs/Intake and Output Vital Signs (last 24 hours): Temp Pulse Resp BP Pulse Ox 98.2 F 62 20 108/69 97 07/24/18 16:47 07/24/18 16:47 07/24/18 16:47 07/24/18 16:47 07/24/18 16:47 Intake and Output: 07/24/18 07/24/18 06:59 18:59 Intake Total 200 400 Balance 200 400 - Medications Medications: Current Medications Acetaminophen (Tylenol 650mg/20.3ml Solution Ud) 650 mg PO Q6 PRN PRN Reason: Fever >100.4 F or mild pain Last Admin: 07/23/18 21:32 Dose: 650 mg Albuterol/Ipratropium (Duoneb 3 Mg/0.5 Mg (3 Ml) Ud) 3 ml INH RQ6 [facility] Last Admin: 07/24/18 13:30 Dose: 3 ml Aspirin (Aspirin Chewable) 81 mg PO DAILY [facility] Last Admin: 07/24/18 09:41 Dose: 81 mg Dextrose (Dextrose 50% Inj) 0 ml IV STAT PRN; Protocol PRN Reason: Hypoglycemia Protocol Last Admin: 06/21/18 16:15 Dose: 50 ml Dextrose (Glutose 15) 15 gm PO ONCE PRN; Protocol PRN Reason: Hypoglycemia Protocol Famotidine (Pepcid) 20 mg PO BID [facility] Last Admin: 07/24/18 17:52 Dose: 20 mg Glucagon (Glucagen Diagnostic Kit) 1 mg IM STAT PRN; Protocol PRN Reason: Hypoglycemia Protocol Guaifenesin/Dextromethorphan (Robitussin Dm) 5 ml PO Q4H PRN PRN Reason: Cough Last Admin: 07/22/18 08:21 Dose: 5 ml Heparin Sodium (Porcine) (Heparin) 5,000 units SC Q12 [facility] Last Admin: 07/24/18 09:42 Dose: 5,000 units Ibuprofen (Motrin Oral Susp) 200 mg PO Q6H PRN PRN Reason: Fever >100.4 F or mild pain Last Admin: 07/23/18 14:58 Dose: 200 mg Insulin Aspart (Novolog) 0 unit SC ACHS [facility]; Protocol Last Admin: 07/24/18 17:51 Dose: Not Given Lisinopril (Zestril) 2.5 mg PO DAILY [facility] Last Admin: 07/24/18 09:41 Dose: 2.5 mg Metformin HCl (Glucophage) 500 mg PO BID [facility] Last Admin: 07/24/18 17:51 Dose: 500 mg Metoprolol Tartrate (Lopressor) 50 mg PO BID [facility] Last Admin: 07/24/18 17:51 Dose: Not Given Ondansetron HCl (Zofran Inj) 4 mg IVP Q6H PRN PRN Reason: Nausea/Vomiting Last Admin: 07/17/18 22:31 Dose: 4 mg Polyethylene Glycol (Miralax) 17 gm PO BID [facility] Last Admin: 07/24/18 17:51 Dose: 17 gm Rosuvastatin Calcium (Crestor) 5 mg PO HS [facility] Last Admin: 07/23/18 21:46 Dose: 5 mg Vitamin A (Vitamin A & D Oint Ud Foilpak) 1 ea TOP BID PRN PRN Reason: Dry skin Last Admin: 07/20/18 17:45 Dose: 1 ea - Labs Labs: 07/24/18 06:26 07/24/18 06:26 PT 16.8 SECONDS (9.7-12.2) H 05/28/18 07:15 INR 1.5 05/28/18 07:15 APTT 34 SECONDS (21-34) 05/28/18 07:15 Attending/Attestation - Attestation I have personally seen and examined this patient.: Yes I have fully participated in the care of the patient.: Yes I have reviewed all pertinent clinical information, including history, physical exam and plan: Yes Notes (Text): Carlee SEEN AND EXAMINED DISCUSSED WITH HER FAMILY
[2018-07-23] MEDS: (Novolog) Insulin Aspart, Recombinant 100 u/ml 10 ml vial SC SCH ×4 (08:51→21:30)
[2018-07-23] MEDS: POLYETHYLENE GLYCOL 3350 17 GM/Dose PACKET PO SCH ×2 (09:52→17:54)
[2018-07-24] MEDS: Albuterol-Ipratrop 3 mg / 0.5 (3 ml) UD INH SCH ×4 (01:04→20:14)
--- NOTE | 2018-07-24 04:07 | CP.PCM.PN ---
<Rossana Puri - Last Filed: 07/24/18 04:02> Subjective - Date & Time of Evaluation Date of Evaluation: 07/24/18 Time of Evaluation: 04:02 - Subjective Subjective: Medicine Progress Note Patient seen and examined at bedside w/ family member, who states that her hands are in pain. She is currently doing PT regularly and are working with her hands that have been chronically in flexion and in fists. Otherwise pt without any other complaints. Objective - Vital Signs/Intake and Output Vital Signs (last 24 hours): Temp Pulse Resp BP Pulse Ox 97.6 F 60 20 111/71 100 07/24/18 00:00 07/24/18 00:00 07/24/18 00:00 07/24/18 00:00 07/24/18 00:00 Intake and Output: 07/23/18 07/24/18 18:59 06:59 Intake Total 600 Output Total 4 Balance 596 - Medications Medications: Current Medications Acetaminophen (Tylenol 650mg/20.3ml Solution Ud) 650 mg PO Q6 PRN PRN Reason: Fever >100.4 F or mild pain Last Admin: 07/23/18 21:32 Dose: 650 mg Albuterol/Ipratropium (Duoneb 3 Mg/0.5 Mg (3 Ml) Ud) 3 ml INH RQ6 [facility] Last Admin: 07/24/18 01:04 Dose: 3 ml Aspirin (Aspirin Chewable) 81 mg PO DAILY [facility] Last Admin: 07/23/18 09:51 Dose: 81 mg Dextrose (Dextrose 50% Inj) 0 ml IV STAT PRN; Protocol PRN Reason: Hypoglycemia Protocol Last Admin: 06/21/18 16:15 Dose: 50 ml Dextrose (Glutose 15) 15 gm PO ONCE PRN; Protocol PRN Reason: Hypoglycemia Protocol Famotidine (Pepcid) 20 mg PO BID [facility] Last Admin: 07/23/18 17:52 Dose: 20 mg Glucagon (Glucagen Diagnostic Kit) 1 mg IM STAT PRN; Protocol PRN Reason: Hypoglycemia Protocol Guaifenesin/Dextromethorphan (Robitussin Dm) 5 ml PO Q4H PRN PRN Reason: Cough Last Admin: 07/22/18 08:21 Dose: 5 ml Heparin Sodium (Porcine) (Heparin) 5,000 units SC Q12 [facility] Last Admin: 01/18/19 21:36 Dose: 5,000 units Ibuprofen (Motrin Oral Susp) 200 mg PO Q6H PRN PRN Reason: Fever >100.4 F or mild pain Last Admin: 07/23/18 14:58 Dose: 200 mg Insulin Aspart (Novolog) 0 unit SC [facility]; Protocol Last Admin: 07/23/18 21:30 Dose: Not Given Lisinopril (Zestril) 2.5 mg PO DAILY [facility] Metformin HCl (Glucophage) 500 mg PO BID [facility] Last Admin: 07/23/18 18:03 Dose: 500 mg Metoprolol Tartrate (Lopressor) 50 mg PO BID [facility] Last Admin: 07/23/18 18:03 Dose: 50 mg Ondansetron HCl (Zofran Inj) 4 mg IVP Q6H PRN PRN Reason: Nausea/Vomiting Last Admin: 07/17/18 22:31 Dose: 4 mg Polyethylene Glycol (Miralax) 17 gm PO BID [facility] Last Admin: 07/23/18 17:54 Dose: 17 gm Rosuvastatin Calcium (Crestor) 5 mg PO HS [facility] Last Admin: 07/23/18 21:46 Dose: 5 mg Vitamin A (Vitamin A & D Oint Ud Foilpak) 1 ea TOP BID PRN PRN Reason: Dry skin Last Admin: 07/20/18 17:45 Dose: 1 ea - Labs Labs: 07/22/18 06:50 07/22/18 06:50 PT 16.8 SECONDS (9.7-12.2) H 05/28/18 07:15 INR 1.5 05/28/18 07:15 APTT 34 SECONDS (21-34) 05/28/18 07:15 - Constitutional Appears: Well, Non-toxic - Head Exam Head Exam: ATRAUMATIC, NORMAL INSPECTION, NORMOCEPHALIC - Eye Exam Eye Exam: EOMI, Normal appearance - Neck Exam Neck Exam: Normal Inspection - Respiratory Exam Respiratory Exam: Clear to Ausculation Bilateral, NORMAL BREATHING PATTERN - Cardiovascular Exam Cardiovascular Exam: REGULAR RHYTHM - GI/Abdominal Exam GI & Abdominal Exam: Soft, Normal Bowel Sounds - Extremities Exam Additional comments: flexed elbows, writs, and fingers. Fists curled in wrapped towels b/l - Neurological Exam Neurological Exam: Alert, Awake - Skin Skin Exam: Dry, Intact, Normal Color, Warm Assessment and Plan - Assessment and Plan (Free Text) Assessment: Patient is a 52 year old female visiting from with probable past medical history of T2DM who was found unresponsive by on 05/01 (reportedly). With anoxic brain injury. Case management and SW working on discharge planning. Anoxic brain injury, improving- 2/2 asphyxiation, suspect suicide attempt - Police involved when patient originally admitted- as per patient's family, the police will speak to patient when she is able to communicate better - Aspiration, seizure, fall precautions - S/p trach and PEG - Successfully decannulated on 07/14 - No longer using PEG as of 07/22 - Consider PEG removal soon - EEG (05/04): diffuse encephalopathy with burst suppression - Repeat EEG: severe non specific diffuse disturbances in cortical activity, brown matter dysfunction - Repeat CT head: no bleeding - MRI Brain: subacute favored over acute cerebral hypoxic insult with minimal involvement of the lower haris and the cerebellar hemispheres - Modified barium swallow 07/19: no abnormalities - Bite sized diet/thin liquids - PO meds - Aggressive PT/OT/ST - Multipodus boots - Hand splints - Neurology consulted (Sherin/Guilherme) - Will get psychiatry consult once patient is able to communicate more clearly - Patient presently denies SI/PDW Cough, acute, mild - CXR 07/19: no active disease - Robitussin DM 5 mL Q4H PRN Type 2 diabetes mellitus, chronic - A1c 10.2- rechack as outpatient - Accuchecks ACHS - Hypoglycemic protocol - ISS medium dose - Discontinue Lantus 10 units SC QHS - Start Metformin 500 mg PO BID Hypertension, chronic - Vitals Q8H - Decrease Metoprolol tartrate to 50 mg PO BID - Discontinue Norvasc 10 mg PO daily - Start Lisinopril 2.5 mg PO daily Fevers, resolved - Most recent 101.3 on 07/19, prior to that afebrile since 06/04 - CXR 07/19: no active disease - UA 07/20: nitrate neg, LE neg, WBC 6, lanny rare - UCx: no growth - Blood Cx 07/19: no growth >3 days - Ice packs, cooling blanket PRN - Tylenol 650 mg PO Q6H PRN - Motrin 200 mg Q6H PRN - PICC removed 07/22 - ID consulted (Nano) Urinary tract infection, resolved - Alvarado discontinued 07/14 - UA (Alvarado): LE 3+, nitrate neg, WBC 58, mod lanny - UCx (Alvarado): E. coli, Enterococcus faecalis - UA 07/20: nitrate neg, LE neg, WBC 6, lanny rare - UCx: no growth - Discontinue Cipro 500 mg PO Q12H - ID consulted (Nano) Vomiting, resolved - Most recent emesis 07/17 - PEG feeds stopped- on PO diet - Discontinue PEG use completely on 07/22 - Aspiration precautions - AXR (07/01): no significant abnormalities, PEG in place - CT A/P (06/06): no obstruction - Pepcid 20 mg PO BID - Zofran 4 mg IV Q6H PRN - GI consulted (Yobani) Leukocytosis, resolved - CXR (05/25): no acute pathology - Doppler b/l UE and LE (05/18): negative for DVTs - UCx (Alvarado): E. coli, Enterococcus faecalis - Repeat UA and Cx pending - Most recent Blood Cx (07/19): no growth - ID consulted (Nano) Respiratory failure, resolved - Duonebs Q6H - Decannulated on 07/14 - Laryngoscopy 06/18: vocal cords functional - Pulmonology consulted (Mika) Acute renal injury with oliguria, resolved - Now producing appropriate amount of urine - Likely due to dehydration - No hemodialysis needed - Nephrology consulted (Arvind) Constipation, resolved - Miralax 17 g PO BID NSTEMI, resolved - ASA 81 mg PO daily - Crestor 5 mg PO QHS - Cardiology consulted (Victor Hugo) Transaminitis, resolved - Likely shock liver - Follow LFTs PPx: VTE: Heparin 5,000 units SC Q12H GI: Pepcid 20 mg PO BID <Emmett Negrete - Last Filed: 07/24/18 15:57> Objective - Vital Signs/Intake and Output Vital Signs (last 24 hours): Temp Pulse Resp BP Pulse Ox 97.4 F L 62 20 123/69 99 07/24/18 07:48 07/24/18 07:48 07/24/18 07:48 07/24/18 07:48 07/24/18 07:48 Intake and Output: 07/24/18 07/24/18 06:59 18:59 Intake Total 200 400 Balance 200 400 - Medications Medications: Current Medications Acetaminophen (Tylenol 650mg/20.3ml Solution Ud) 650 mg PO Q6 PRN PRN Reason: Fever >100.4 F or mild pain Last Admin: 07/23/18 21:32 Dose: 650 mg Albuterol/Ipratropium (Duoneb 3 Mg/0.5 Mg (3 Ml) Ud) 3 ml INH RQ6 [facility] Last Admin: 07/24/18 13:30 Dose: 3 ml Aspirin (Aspirin Chewable) 81 mg PO DAILY [facility] Last Admin: 07/24/18 09:41 Dose: 81 mg Dextrose (Dextrose 50% Inj) 0 ml IV STAT PRN; Protocol PRN Reason: Hypoglycemia Protocol Last Admin: 06/21/18 16:15 Dose: 50 ml Dextrose (Glutose 15) 15 gm PO ONCE PRN; Protocol PRN Reason: Hypoglycemia Protocol Famotidine (Pepcid) 20 mg PO BID [facility] Last Admin: 07/24/18 09:41 Dose: 20 mg Glucagon (Glucagen Diagnostic Kit) 1 mg IM STAT PRN; Protocol PRN Reason: Hypoglycemia Protocol Guaifenesin/Dextromethorphan (Robitussin Dm) 5 ml PO Q4H PRN PRN Reason: Cough Last Admin: 07/22/18 08:21 Dose: 5 ml Heparin Sodium (Porcine) (Heparin) 5,000 units SC Q12 [facility] Last Admin: 07/24/18 09:42 Dose: 5,000 units Ibuprofen (Motrin Oral Susp) 200 mg PO Q6H PRN PRN Reason: Fever >100.4 F or mild pain Last Admin: 07/23/18 14:58 Dose: 200 mg Insulin Aspart (Novolog) 0 unit SC ACHS [facility]; Protocol Last Admin: 07/24/18 11:52 Dose: Not Given Lisinopril (Zestril) 2.5 mg PO DAILY [facility] Last Admin: 07/24/18 09:41 Dose: 2.5 mg Metformin HCl (Glucophage) 500 mg PO BID [facility] Last Admin: 07/24/18 09:41 Dose: 500 mg Metoprolol Tartrate (Lopressor) 50 mg PO BID [facility] Last Admin: 07/24/18 09:41 Dose: 50 mg Ondansetron HCl (Zofran Inj) 4 mg IVP Q6H PRN PRN Reason: Nausea/Vomiting Last Admin: 07/17/18 22:31 Dose: 4 mg Polyethylene Glycol (Miralax) 17 gm PO BID [facility] Last Admin: 07/24/18 09:42 Dose: 17 gm Rosuvastatin Calcium (Crestor) 5 mg PO HS [facility] Last Admin: 07/23/18 21:46 Dose: 5 mg Vitamin A (Vitamin A & D Oint Ud Foilpak) 1 ea TOP BID PRN PRN Reason: Dry skin Last Admin: 07/20/18 17:45 Dose: 1 ea - Labs Labs: 07/24/18 06:26 07/24/18 06:26 PT 16.8 SECONDS (9.7-12.2) H 05/28/18 07:15 INR 1.5 05/28/18 07:15 APTT 34 SECONDS (21-34) 05/28/18 07:15 Attending/Attestation - Attestation I have personally seen and examined this patient.: Yes I have fully participated in the care of the patient.: Yes I have reviewed all pertinent clinical information, including history, physical exam and plan: Yes Notes (Text): seen and examined,she is sitting on the chair talking loud,speech is not clear.But her sister and son understands better. Able to eat well,trying to do exercise herself. spoke to family at bedside off antibiotics continue supportive care If she improves possible discharge next week discussed about discharge plan. Not ready yet
[2018-07-24 06:46] LABS: BASO % 0.9 % (0.0-2.0); EOS % 0.4 % (0.0-4.0); HEMOGLOBIN 9.3 g/dL (11.0-16.0); LYMPH # 2.7 K/uL (1.0-4.3); MEAN CELL VOLUME 83.1 fL (81.0-99.0); MEAN CORPUSCULAR HGB CONC 33.6 g/dL (33.0-37.0); MONO # 0.5 K/uL (0.0-0.8); MONO % 11.9 % (0.0-10.0); NEUT # 0.7 K/uL (1.8-7.0); NEUT % 17.8 % (50.0-75.0); NRBC % 0.2 % (0.0-2.0); PLATELET COUNT 376 K/uL (130-400); RBC 3.33 Mil/uL (3.80-5.20); RED CELL DISTRIBUTION WIDTH 16.5 % (11.5-14.5); WHITE BLOOD COUNT 3.9 K/uL (4.8-10.8)
[2018-07-24 06:49] LABS: ALB/GLOB RATIO 0.8 (1.0-2.1); ALT/SGPT 36 U/L (9-52); AST/SGOT 70 U/L (14-36); BLOOD UREA NITROGEN 7 mg/dL (7-17); CALCIUM 8.4 mg/dl (8.6-10.4); GFR NON-AFRICAN AMERICAN > 60; HDL CHOLESTEROL 12 mg/dL (30-70)
[2018-07-24 06:58] LABS: LDL CHOLESTEROL 44 mg/dL (0-129)
[2018-07-24] MEDS: (Novolog) Insulin Aspart, Recombinant 100 u/ml 10 ml vial SC SCH ×4 (08:06→21:43)
[2018-07-24] MEDS: POLYETHYLENE GLYCOL 3350 17 GM/Dose PACKET PO SCH ×2 (09:42→17:51)
[2018-07-24 12:10] LABS: BANDS 1 % (0-2); LYMPHOCYTE 74 % (20-40); MONOCYTE 5 % (0-10); NEUTROPHIL 13 % (50-75); REACTIVE LYMPHOCYTES 7 % (0-0); TOTAL CELLS COUNTED 100
[2018-07-24 12:11] LABS: ANISOCYTOSIS SLIGHT; PLATELET ESTIMATE NORMAL (NORMAL); POIKILOCYTOSIS SLIGHT
[2018-07-24 12:12] LABS: HYPOCHROMIC SLIGHT; MICROCYTOSIS SLIGHT; OVALOCYTES SLIGHT; POLYCHROMIC SLIGHT; SCHISTOCYTES SLIGHT; TARGET CELLS SLIGHT; TEARDROP CELLS SLIGHT
[2018-07-25] MEDS: Albuterol-Ipratrop 3 mg / 0.5 (3 ml) UD INH SCH ×3 (01:26→13:41)
--- NOTE | 2018-07-25 03:44 | CP.PCM.PN ---
<Rossana Puri - Last Filed: 07/25/18 03:43> Subjective - Date & Time of Evaluation Date of Evaluation: 07/25/18 Time of Evaluation: 03:43 - Subjective Subjective: Medicine Progress Note Patient seen with family member at bedside. Due to patient condition ROS unable to be obtained. Objective - Vital Signs/Intake and Output Vital Signs (last 24 hours): Temp Pulse Resp BP Pulse Ox 98.2 F 62 20 108/69 97 07/24/18 16:47 07/24/18 16:47 07/24/18 16:47 07/24/18 16:47 07/24/18 16:47 Intake and Output: 07/24/18 07/25/18 18:59 06:59 Intake Total 400 350 Balance 400 350 - Medications Medications: Current Medications Acetaminophen (Tylenol 650mg/20.3ml Solution Ud) 650 mg PO Q6 PRN PRN Reason: Fever >100.4 F or mild pain Last Admin: 07/23/18 21:32 Dose: 650 mg Albuterol/Ipratropium (Duoneb 3 Mg/0.5 Mg (3 Ml) Ud) 3 ml INH RQ6 [facility] Last Admin: 07/25/18 01:26 Dose: 3 ml Aspirin (Aspirin Chewable) 81 mg PO DAILY [facility] Last Admin: 07/24/18 09:41 Dose: 81 mg Dextrose (Dextrose 50% Inj) 0 ml IV STAT PRN; Protocol PRN Reason: Hypoglycemia Protocol Last Admin: 06/21/18 16:15 Dose: 50 ml Dextrose (Glutose 15) 15 gm PO ONCE PRN; Protocol PRN Reason: Hypoglycemia Protocol Famotidine (Pepcid) 20 mg PO BID [facility] Last Admin: 07/24/18 17:52 Dose: 20 mg Glucagon (Glucagen Diagnostic Kit) 1 mg IM STAT PRN; Protocol PRN Reason: Hypoglycemia Protocol Guaifenesin/Dextromethorphan (Robitussin Dm) 5 ml PO Q4H PRN PRN Reason: Cough Last Admin: 07/22/18 08:21 Dose: 5 ml Heparin Sodium (Porcine) (Heparin) 5,000 units SC Q12 [facility] Last Admin: 07/24/18 21:43 Dose: 5,000 units Ibuprofen (Motrin Oral Susp) 200 mg PO Q6H PRN PRN Reason: Fever >100.4 F or mild pain Last Admin: 07/23/18 14:58 Dose: 200 mg Insulin Aspart (Novolog) 0 unit SC ACHS [facility]; Protocol Last Admin: 07/24/18 21:43 Dose: Not Given Lisinopril (Zestril) 2.5 mg PO DAILY [facility] Last Admin: 07/24/18 09:41 Dose: 2.5 mg Metformin HCl (Glucophage) 500 mg PO BID [facility] Last Admin: 07/24/18 17:51 Dose: 500 mg Metoprolol Tartrate (Lopressor) 50 mg PO BID [facility] Last Admin: 07/24/18 17:51 Dose: Not Given Ondansetron HCl (Zofran Inj) 4 mg IVP Q6H PRN PRN Reason: Nausea/Vomiting Last Admin: 07/17/18 22:31 Dose: 4 mg Polyethylene Glycol (Miralax) 17 gm PO BID [facility] Last Admin: 07/24/18 17:51 Dose: 17 gm Rosuvastatin Calcium (Crestor) 5 mg PO HS [facility] Last Admin: 07/24/18 21:42 Dose: 5 mg Vitamin A (Vitamin A & D Oint Ud Foilpak) 1 ea TOP BID PRN PRN Reason: Dry skin Last Admin: 07/20/18 17:45 Dose: 1 ea - Labs Labs: 07/24/18 06:26 07/24/18 06:26 PT 16.8 SECONDS (9.7-12.2) H 05/28/18 07:15 INR 1.5 05/28/18 07:15 APTT 34 SECONDS (21-34) 05/28/18 07:15 - Constitutional Appears: Well, Non-toxic - Head Exam Head Exam: ATRAUMATIC, NORMAL INSPECTION, NORMOCEPHALIC - Eye Exam Eye Exam: Normal appearance - Neck Exam Neck Exam: Normal Inspection - Respiratory Exam Respiratory Exam: Clear to Ausculation Bilateral, NORMAL BREATHING PATTERN - Cardiovascular Exam Cardiovascular Exam: REGULAR RHYTHM - GI/Abdominal Exam GI & Abdominal Exam: Soft, Normal Bowel Sounds - Rectal Exam Rectal Exam: NORMAL INSPECTION - Extremities Exam Extremities Exam: Normal Inspection - Neurological Exam Neurological Exam: Alert, Awake - Skin Skin Exam: Dry, Intact, Normal Color, Warm Assessment and Plan - Assessment and Plan (Free Text) Assessment: Patient is a 52 year old female visiting from with probable past medical history of T2DM who was found unresponsive by on 05/01 (reportedly). With anoxic brain injury. Case management and SW working on discharge planning. Anoxic brain injury, improving- 2/2 asphyxiation, suspect suicide attempt - Police involved when patient originally admitted- as per patient's family, the police will speak to patient when she is able to communicate better - Aspiration, seizure, fall precautions - S/p trach and PEG - Successfully decannulated on 07/14 - No longer using PEG as of 07/22 - Consider PEG removal soon - EEG (05/04): diffuse encephalopathy with burst suppression - Repeat EEG: severe non specific diffuse disturbances in cortical activity, brown matter dysfunction - Repeat CT head: no bleeding - MRI Brain: subacute favored over acute cerebral hypoxic insult with minimal involvement of the lower haris and the cerebellar hemispheres - Modified barium swallow 07/19: no abnormalities - Bite sized diet/thin liquids - PO meds - Aggressive PT/OT/ST - Multipodus boots - Hand splints - Neurology consulted (Sherin/Guilherme) - Will get psychiatry consult once patient is able to communicate more clearly - Patient presently denies SI/PDW Cough, acute, mild - CXR 07/19: no active disease - Robitussin DM 5 mL Q4H PRN Type 2 diabetes mellitus, chronic - A1c 10.2- rechack as outpatient - Accuchecks ACHS - Hypoglycemic protocol - ISS medium dose - Discontinue Lantus 10 units SC QHS - Start Metformin 500 mg PO BID Hypertension, chronic - Vitals Q8H - Decrease Metoprolol tartrate to 50 mg PO BID - Discontinue Norvasc 10 mg PO daily - Start Lisinopril 2.5 mg PO daily Fevers, resolved - Most recent 101.3 on 07/19, prior to that afebrile since 06/04 - CXR 07/19: no active disease - UA 07/20: nitrate neg, LE neg, WBC 6, lanny rare - UCx: no growth - Blood Cx 07/19: no growth >3 days - Ice packs, cooling blanket PRN - Tylenol 650 mg PO Q6H PRN - Motrin 200 mg Q6H PRN - PICC removed 07/22 - ID consulted (Nano) Urinary tract infection, resolved - Alvarado discontinued 07/14 - UA (Alvarado): LE 3+, nitrate neg, WBC 58, mod lanny - UCx (Alvarado): E. coli, Enterococcus faecalis - UA 07/20: nitrate neg, LE neg, WBC 6, lanny rare - UCx: no growth - Discontinue Cipro 500 mg PO Q12H - ID consulted (Nano) Vomiting, resolved - Most recent emesis 07/17 - PEG feeds stopped- on PO diet - Discontinue PEG use completely on 07/22 - Aspiration precautions - AXR (07/01): no significant abnormalities, PEG in place - CT A/P (06/06): no obstruction - Pepcid 20 mg PO BID - Zofran 4 mg IV Q6H PRN - GI consulted (Yobani) Leukocytosis, resolved - CXR (05/25): no acute pathology - Doppler b/l UE and LE (05/18): negative for DVTs - UCx (Alvarado): E. coli, Enterococcus faecalis - Repeat UA and Cx pending - Most recent Blood Cx (07/19): no growth - ID consulted (Nano) Respiratory failure, resolved - Duonebs Q6H - Decannulated on 07/14 - Laryngoscopy 06/18: vocal cords functional - Pulmonology consulted (Mika) Acute renal injury with oliguria, resolved - Now producing appropriate amount of urine - Likely due to dehydration - No hemodialysis needed - Nephrology consulted (Arvind) Constipation, resolved - Miralax 17 g PO BID NSTEMI, resolved - ASA 81 mg PO daily - Crestor 5 mg PO QHS - Cardiology consulted (Victor Hugo) Transaminitis, resolved - Likely shock liver - Follow LFTs PPx: VTE: Heparin 5,000 units SC Q12H GI: Pepcid 20 mg PO BID <Emmett Negrete - Last Filed: 07/27/18 11:34> Objective - Vital Signs/Intake and Output Vital Signs (last 24 hours): Temp Pulse Resp BP Pulse Ox 97.4 F L 61 20 119/72 99 07/27/18 08:00 07/27/18 08:00 07/27/18 08:00 07/27/18 09:54 07/27/18 08:00 Intake and Output: 07/27/18 07/27/18 06:59 18:59 Intake Total 370 Balance 370 - Medications Medications: Current Medications Albuterol/Ipratropium (Duoneb 3 Mg/0.5 Mg (3 Ml) Ud) 3 ml INH RQ6 [facility] Last Admin: 07/27/18 07:15 Dose: 3 ml Aspirin (Aspirin Chewable) 81 mg PO DAILY [facility] Last Admin: 07/27/18 09:58 Dose: 81 mg Cyclobenzaprine HCl (Flexeril) 5 mg PO HS [facility] Last Admin: 07/26/18 21:16 Dose: 5 mg Dextrose (Dextrose 50% Inj) 0 ml IV STAT PRN; Protocol PRN Reason: Hypoglycemia Protocol Last Admin: 06/21/18 16:15 Dose: 50 ml Dextrose (Glutose 15) 15 gm PO ONCE PRN; Protocol PRN Reason: Hypoglycemia Protocol Famotidine (Pepcid) 20 mg PO BID [facility] Last Admin: 07/27/18 09:51 Dose: 20 mg Glucagon (Glucagen Diagnostic Kit) 1 mg IM STAT PRN; Protocol PRN Reason: Hypoglycemia Protocol Guaifenesin/Dextromethorphan (Robitussin Dm) 5 ml PO Q4H PRN PRN Reason: Cough Last Admin: 07/25/18 09:12 Dose: 5 ml Heparin Sodium (Porcine) (Heparin) 5,000 units SC Q12 [facility] Last Admin: 07/27/18 09:51 Dose: 5,000 units Ibuprofen (Motrin Oral Susp) 400 mg PO Q6H PRN PRN Reason: Fever >100.4 F or mild pain Last Admin: 07/27/18 08:24 Dose: 400 mg Insulin Aspart (Novolog) 0 unit SC ACHS [facility]; Protocol Last Admin: 07/27/18 08:20 Dose: Not Given Lisinopril (Zestril) 2.5 mg PO DAILY [facility] Last Admin: 07/27/18 09:55 Dose: 2.5 mg Metformin HCl (Glucophage) 500 mg PO BID [facility] Last Admin: 07/27/18 09:51 Dose: 500 mg Metoprolol Tartrate (Lopressor) 25 mg PO BID [facility] Last Admin: 07/27/18 09:54 Dose: 25 mg Polyethylene Glycol (Miralax) 17 gm PO DAILY [facility] Last Admin: 07/27/18 09:58 Dose: 17 gm Rosuvastatin Calcium (Crestor) 5 mg PO HS [facility] Last Admin: 07/25/18 21:41 Dose: 5 mg Vitamin A (Vitamin A & D Oint Ud Foilpak) 1 ea TOP BID PRN PRN Reason: Dry skin Last Admin: 07/20/18 17:45 Dose: 1 ea - Labs Labs: 07/26/18 07:08 07/26/18 07:08 PT 16.8 SECONDS (9.7-12.2) H 05/28/18 07:15 INR 1.5 05/28/18 07:15 APTT 34 SECONDS (21-34) 05/28/18 07:15 Attending/Attestation - Attestation I have personally seen and examined this patient.: Yes I have fully participated in the care of the patient.: Yes I have reviewed all pertinent clinical information, including history, physical exam and plan: Yes Notes (Text): sitting on the bed,able to sit up herself,Her hands and foot muscles are contrac jenny. asked to continue exercise discussed about d/c plan.Patient caan't stand on her feet. working with PT,OT and speech
[2018-07-25] MEDS: (Novolog) Insulin Aspart, Recombinant 100 u/ml 10 ml vial SC SCH ×5 (07:58→21:53)
[2018-07-25] MEDS: guaiFENesin DM 100 mg-10 mg/5 ml UD PO PRN (09:12)
[2018-07-25] MEDS: POLYETHYLENE GLYCOL 3350 17 GM/Dose PACKET PO SCH ×2 (09:18→17:16)
[2018-07-25] MEDS: Acetaminophen 650mg/20.3ml solution UD PO PRN (09:27)
[2018-07-26] MEDS: Albuterol-Ipratrop 3 mg / 0.5 (3 ml) UD INH SCH ×4 (02:10→20:20)
--- NOTE | 2018-07-26 06:28 | CP.PCM.PN ---
Subjective - Date & Time of Evaluation Date of Evaluation: 07/26/18 Time of Evaluation: 06:27 - Subjective Subjective: PGY-1 Arianne Burkett D.O. Medicine progress note for Dr. Kebede's service: Patient was seen and examined this morning. Sister is at bedside. Patient is lying in bed, no acute distress. No acute complaints. Denies pain. She is still concerned about her hand contractures. Spoke to son regarding apartment. He says that his apartment is on the 2nd floor, so he is looking for one on the ground floor. Objective - Vital Signs/Intake and Output Vital Signs (last 24 hours): Temp Pulse Resp BP Pulse Ox 97.8 F 71 20 137/68 99 07/25/18 15:30 07/25/18 15:30 07/25/18 15:30 07/25/18 15:30 07/25/18 15:30 Intake and Output: 07/25/18 07/26/18 18:59 06:59 Intake Total 500 350 Balance 500 350 - Medications Medications: Current Medications Acetaminophen (Tylenol 650mg/20.3ml Solution Ud) 650 mg PO Q6 PRN PRN Reason: Fever >100.4 F or mild pain Last Admin: 07/25/18 09:27 Dose: 650 mg Albuterol/Ipratropium (Duoneb 3 Mg/0.5 Mg (3 Ml) Ud) 3 ml INH RQ6 [facility] Last Admin: 07/26/18 02:10 Dose: Not Given Aspirin (Aspirin Chewable) 81 mg PO DAILY [facility] Last Admin: 07/25/18 09:12 Dose: 81 mg Dextrose (Dextrose 50% Inj) 0 ml IV STAT PRN; Protocol PRN Reason: Hypoglycemia Protocol Last Admin: 06/21/18 16:15 Dose: 50 ml Dextrose (Glutose 15) 15 gm PO ONCE PRN; Protocol PRN Reason: Hypoglycemia Protocol Famotidine (Pepcid) 20 mg PO BID [facility] Last Admin: 07/25/18 17:16 Dose: 20 mg Glucagon (Glucagen Diagnostic Kit) 1 mg IM STAT PRN; Protocol PRN Reason: Hypoglycemia Protocol Guaifenesin/Dextromethorphan (Robitussin Dm) 5 ml PO Q4H PRN PRN Reason: Cough Last Admin: 07/25/18 09:12 Dose: 5 ml Heparin Sodium (Porcine) (Heparin) 5,000 units SC Q12 [facility] Last Admin: 07/25/18 21:41 Dose: 5,000 units Ibuprofen (Motrin Oral Susp) 400 mg PO Q6H PRN PRN Reason: Fever >100.4 F or mild pain Last Admin: 07/25/18 12:46 Dose: 400 mg Insulin Aspart (Novolog) 0 unit SC ACHS [facility]; Protocol Last Admin: 07/25/18 21:53 Dose: Not Given Lisinopril (Zestril) 2.5 mg PO DAILY [facility] Last Admin: 07/25/18 09:13 Dose: Not Given Metformin HCl (Glucophage) 500 mg PO BID [facility] Last Admin: 07/25/18 17:16 Dose: 500 mg Metoprolol Tartrate (Lopressor) 50 mg PO BID [facility] Last Admin: 07/25/18 17:16 Dose: 50 mg Ondansetron HCl (Zofran Inj) 4 mg IVP Q6H PRN PRN Reason: Nausea/Vomiting Last Admin: 07/17/18 22:31 Dose: 4 mg Polyethylene Glycol (Miralax) 17 gm PO BID [facility] Last Admin: 07/25/18 17:16 Dose: 17 gm Rosuvastatin Calcium (Crestor) 5 mg PO HS [facility] Last Admin: 07/25/18 21:41 Dose: 5 mg Vitamin A (Vitamin A & D Oint Ud Foilpak) 1 ea TOP BID PRN PRN Reason: Dry skin Last Admin: 07/20/18 17:45 Dose: 1 ea - Labs Labs: 07/24/18 06:26 07/24/18 06:26 PT 16.8 SECONDS (9.7-12.2) H 05/28/18 07:15 INR 1.5 05/28/18 07:15 APTT 34 SECONDS (21-34) 05/28/18 07:15 - Additional Findings Additional findings: - Constitutional Appears: No Acute Distress, Chronically Ill - Head Exam Head Exam: ATRAUMATIC, NORMAL INSPECTION - Eye Exam Eye Exam: EOMI, Normal appearance - ENT Exam ENT Exam: Mucous Membranes Moist - Neck Exam Additional comments: previous trach site healing well - Respiratory Exam Respiratory Exam: Clear to Ausculation Bilateral, NORMAL BREATHING PATTERN. absent: Respiratory Distress - Cardiovascular Exam Cardiovascular Exam: REGULAR RHYTHM, +S1, +S2 Additional comments: - GI/Abdominal Exam GI & Abdominal Exam: Soft. absent: Distended, Tenderness Additional comments: PEG- clamped - Extremities Exam Extremities Exam: Normal Capillary Refill. absent: Pedal Edema, Tenderness Additional comments: muscle wasting - Neurological Exam Neurological Exam: Alert, Awake. absent: Normal Gait Neuro motor strength exam: Left Upper Extremity: 5, Right Upper Extremity: 5, Left Lower Extremity: 5, Right Lower Extremity: 5 Additional comments: b/l hand contractures (R>L)- improving - splint on L hand - Psychiatric Exam Psychiatric exam: Normal Affect. absent: Suicidal Ideation - Skin Skin Exam: Dry, Intact, Normal Color, Warm Assessment and Plan - Assessment and Plan (Free Text) Assessment: Patient is a 52 year old female visiting from with probable past medical history of T2DM who was found unresponsive by on 05/01 (reportedly). EMS was called and patient was resuscitated and subsequently intubated on the field and brought to the ED. Code stroke was called, patient was subsequently admitted to ICU for close monitoring and evaluation for anoxic brain injury. Patient was noted on physical exam to have ring monge suggestive of suicidal attempt by hanging. [employer] involved and state high likelihood of suicidal attempt. Patient was treated for sepsis. Patient is s/p tracheostomy and PEG. Downgraded to telemetry. In June, able to be weaned of ventilator to trach collar w/ humidified oxygen and then finally off trach collar and O2 and now breathing in dependently. Patient now speaks full sentences, yet many words are jumbled and hard to understand. She follows commands well. She needs extensive physical therapy as she is still bed bound. Barium swallow indicated no abnormalities so PEG feeds stopped. Patient doing well on regular (bite-sized) diet. Will transition patient to oral medications. New onset UTI- course of cipro. However, sample was via Alvarado and repeat UA, Cx were clean. Temperature of 101.3 on 07/19- afebrile since. Blood Cx no growth. Patient was asked about possible suicide attempt leading to hospitalization. Patient becomes tearful each time asked. Patient denies suicidal ideation at this. Patient will need psychiatric consult once her speech is improved. Presently, the cryptography teacher is not able to understand most of what the patient says and the sister is mostly speaking for the patient. Patient is working with PT and OT daily and showing improvement. Discussed discharge planning with family- son says that he is getting apartment in [place] for the patient to move in with him when she is ready. Case management and SW working on discharge planning. Patient will follow-up at the [facility]. She will need outpatient therapy services and home equipment, including wheelchair. Plan: Anoxic brain injury, improving- 2/2 asphyxiation, suspect suicide attempt - Police involved when patient originally admitted- as per patient's family, the police will speak to patient when she is able to communicate better - Aspiration, seizure, fall precautions - S/p trach and PEG - Successfully decannulated on 07/14 - No longer using PEG as of 07/22 - GI taught patient's family how to flush PEG and cover while outpatient; GI recommends to keep in at least one month before considering removal to ensure patient has adequate oral intake - EEG (05/04): diffuse encephalopathy with burst suppression - Repeat EEG: severe non specific diffuse disturbances in cortical activity, brown matter dysfunction - Repeat CT head: no bleeding - MRI Brain: subacute favored over acute cerebral hypoxic insult with minimal involvement of the lower haris and the cerebellar hemispheres - Modified barium swallow 07/19: no abnormalities - Bite sized diet/thin liquids - PO meds - Aggressive PT/OT/ST - Multipodus boots - Hand splints - Neurology consulted (Sherin/Guilherme) - Will get psychiatry consult once patient is able to communicate more clearly - Patient presently denies SI/PDW Transaminitis, mild - Likely shock liver earlier in hospitalization - Hold Crestor 07/26 - Follow LFTs Cough, acute, mild, improving - CXR 07/19: no active disease - Robitussin DM 5 mL Q4H PRN Type 2 diabetes mellitus, chronic - A1c 10.2- recheck as outpatient - Accuchecks ACHS - Hypoglycemic protocol - ISS medium dose - Metformin 500 mg PO BID Hypertension, chronic - Vitals Q8H - Decrease Metoprolol tartrate to 25 mg PO BID - Lisinopril 2.5 mg PO daily Fevers, resolved - Most recent 101.3 on 07/19, prior to that afebrile since 06/04 - CXR 07/19: no active disease - UA 07/20: nitrate neg, LE neg, WBC 6, lanny rare - UCx: no growth - Blood Cx 07/19: no growth - Ice packs, cooling blanket PRN - Motrin 200 mg Q6H PRN - PICC removed 07/22 - Off antibiotics - ID consulted (Nano) Urinary tract infection, resolved - Alvarado discontinued 07/14 - UA (Alvarado): LE 3+, nitrate neg, WBC 58, mod lanny - UCx (Alvarado): E. coli, Enterococcus faecalis - UA 07/20: nitrate neg, LE neg, WBC 6, lanny rare - UCx: no growth - Completed course of Cipro in July - Off antibiotics - ID consulted (Nano) Vomiting, resolved - Most recent emesis 07/17 - PEG feeds stopped- on PO diet - Discontinued PEG use completely on 07/22 - Aspiration precautions - AXR (07/01): no significant abnormalities, PEG in place - CT A/P (06/06): no obstruction - Pepcid 20 mg PO BID - Zofran 4 mg IV Q6H PRN - GI consulted (Yobani) Leukocytosis, resolved - CXR (05/25): no acute pathology - Doppler b/l UE and LE (05/18): negative for DVTs - UCx (Alvarado): E. coli, Enterococcus faecalis - Repeat UA and Cx pending - Most recent Blood Cx (07/19): no growth - Off antibiotics - ID consulted (Nano) Respiratory failure, resolved - Duonebs Q6H - Decannulated on 07/14 - Laryngoscopy 06/18: vocal cords functional - Pulmonology consulted (Mika) Acute renal injury with oliguria, resolved - Now producing appropriate amount of urine - Likely due to dehydration - No hemodialysis needed - Nephrology consulted (Arvind) Constipation, resolved - Miralax 17 g PO BID NSTEMI, resolved - TG 265, choles 72, LDL 44, HDL 12 - ASA 81 mg PO daily - Crestor 5 mg PO QHS- hold due to transaminitis - Cardiology consulted (Victor Hugo) PPx: VTE: Heparin 5,000 units SC Q12H GI: Pepcid 20 mg PO BID Code status: full code Case was discussed with attending, Dr. Kebede.
[2018-07-26 07:33] LABS: BASO % 0.5 % (0.0-2.0); EOS % 0.8 % (0.0-4.0); HEMOGLOBIN 9.6 g/dL (11.0-16.0); LYMPH # 2.4 K/uL (1.0-4.3); LYMPH % 46.4 % (20.0-40.0); MEAN CELL VOLUME 82.9 fL (81.0-99.0); MEAN CORPUSCULAR HGB CONC 32.6 g/dL (33.0-37.0); MEAN PLATELET VOLUME 10.2 fL (7.2-11.7); MONO # 0.4 K/uL (0.0-0.8); MONO % 8.3 % (0.0-10.0); NEUT # 2.3 K/uL (1.8-7.0); NRBC % 0.2 % (0.0-2.0); RBC 3.57 Mil/uL (3.80-5.20); RED CELL DISTRIBUTION WIDTH 16.8 % (11.5-14.5); WHITE BLOOD COUNT 5.2 K/uL (4.8-10.8)
[2018-07-26 07:41] LABS: ALB/GLOB RATIO 0.9 (1.0-2.1); ALBUMIN 3.3 g/dL (3.5-5.0); ALT/SGPT 61 U/L (9-52); AST/SGOT 73 U/L (14-36); BLOOD UREA NITROGEN 6 mg/dL (7-17); CALCIUM 8.8 mg/dl (8.6-10.4); GFR NON-AFRICAN AMERICAN > 60
[2018-07-26] MEDS: (Novolog) Insulin Aspart, Recombinant 100 u/ml 10 ml vial SC SCH ×4 (07:46→21:17)
[2018-07-26] MEDS: POLYETHYLENE GLYCOL 3350 17 GM/Dose PACKET PO SCH ×2 (10:39→17:58)
[2018-07-27] MEDS: Albuterol-Ipratrop 3 mg / 0.5 (3 ml) UD INH SCH ×4 (01:15→20:08)
--- NOTE | 2018-07-27 07:06 | CP.PCM.PN ---
Subjective - Date & Time of Evaluation Date of Evaluation: 07/27/18 Time of Evaluation: 07:05 - Subjective Subjective: PGY-1 Arianne Burkett D.O. Medicine progress note for Dr. Kebede's service: Patient was seen and examined this morning. Family is at bedside. Patient is complaining of neck pain in addition to her hand pain. She is continuing to do exercises to straighten her hands. She is tolerating PO diet and meds. Denies fevers and chills. Denies nausea and vomiting. Objective - Vital Signs/Intake and Output Vital Signs (last 24 hours): Temp Pulse Resp BP Pulse Ox 97.7 F 65 20 114/62 97 07/27/18 00:00 07/27/18 00:00 07/27/18 00:00 07/27/18 00:00 07/27/18 00:00 Intake and Output: 07/27/18 07/27/18 06:59 18:59 Intake Total 370 Balance 370 - Medications Medications: Current Medications Albuterol/Ipratropium (Duoneb 3 Mg/0.5 Mg (3 Ml) Ud) 3 ml INH RQ6 [facility] Last Admin: 07/27/18 01:15 Dose: Not Given Aspirin (Aspirin Chewable) 81 mg PO DAILY [facility] Last Admin: 07/26/18 10:39 Dose: 81 mg Cyclobenzaprine HCl (Flexeril) 5 mg PO HS [facility] Last Admin: 07/26/18 21:16 Dose: 5 mg Dextrose (Dextrose 50% Inj) 0 ml IV STAT PRN; Protocol PRN Reason: Hypoglycemia Protocol Last Admin: 06/21/18 16:15 Dose: 50 ml Dextrose (Glutose 15) 15 gm PO ONCE PRN; Protocol PRN Reason: Hypoglycemia Protocol Famotidine (Pepcid) 20 mg PO BID [facility] Last Admin: 07/26/18 17:57 Dose: 20 mg Glucagon (Glucagen Diagnostic Kit) 1 mg IM STAT PRN; Protocol PRN Reason: Hypoglycemia Protocol Guaifenesin/Dextromethorphan (Robitussin Dm) 5 ml PO Q4H PRN PRN Reason: Cough Last Admin: 07/25/18 09:12 Dose: 5 ml Heparin Sodium (Porcine) (Heparin) 5,000 units SC Q12 [facility] Last Admin: 07/26/18 21:17 Dose: 5,000 units Ibuprofen (Motrin Oral Susp) 400 mg PO Q6H PRN PRN Reason: Fever >100.4 F or mild pain Last Admin: 07/25/18 12:46 Dose: 400 mg Insulin Aspart (Novolog) 0 unit SC [facility]; Protocol Last Admin: 07/26/18 21:17 Dose: Not Given Lisinopril (Zestril) 2.5 mg PO DAILY [facility] Last Admin: 07/26/18 10:40 Dose: 2.5 mg Metformin HCl (Glucophage) 500 mg PO BID [facility] Last Admin: 07/26/18 17:57 Dose: 500 mg Metoprolol Tartrate (Lopressor) 25 mg PO BID [facility] Last Admin: 07/26/18 17:58 Dose: 25 mg Ondansetron HCl (Zofran Inj) 4 mg IVP Q6H PRN PRN Reason: Nausea/Vomiting Last Admin: 07/17/18 22:31 Dose: 4 mg Polyethylene Glycol (Miralax) 17 gm PO BID [facility] Last Admin: 07/26/18 17:58 Dose: Not Given Rosuvastatin Calcium (Crestor) 5 mg PO HS [facility] Last Admin: 07/25/18 21:41 Dose: 5 mg Vitamin A (Vitamin A & D Oint Ud Foilpak) 1 ea TOP BID PRN PRN Reason: Dry skin Last Admin: 07/20/18 17:45 Dose: 1 ea - Labs Labs: 07/26/18 07:08 07/26/18 07:08 PT 16.8 SECONDS (9.7-12.2) H 05/28/18 07:15 INR 1.5 05/28/18 07:15 APTT 34 SECONDS (21-34) 05/28/18 07:15 - Additional Findings Additional findings: - Constitutional Appears: No Acute Distress, Chronically Ill - Head Exam Head Exam: ATRAUMATIC, NORMAL INSPECTION - Eye Exam Eye Exam: EOMI, Normal appearance - ENT Exam ENT Exam: Mucous Membranes Moist - Neck Exam Additional comments: previous trach site healing well - Respiratory Exam Respiratory Exam: Clear to Ausculation Bilateral, NORMAL BREATHING PATTERN. absent: Respiratory Distress - Cardiovascular Exam Cardiovascular Exam: REGULAR RHYTHM, +S1, +S2 Additional comments: - GI/Abdominal Exam GI & Abdominal Exam: Soft. absent: Distended, Tenderness Additional comments: PEG- clamped - Extremities Exam Extremities Exam: Normal Capillary Refill. absent: Pedal Edema, Tenderness Additional comments: - Neurological Exam Neurological Exam: Alert, Awake. absent: Normal Gait Neuro motor strength exam: Left Upper Extremity: 5, Right Upper Extremity: 5, Left Lower Extremity: 5, Right Lower Extremity: 5 Additional comments: b/l hand contractures (R>L)- improving - splint on L hand - Psychiatric Exam Psychiatric exam: Normal Affect. absent: Suicidal Ideation - Skin Skin Exam: Dry, Intact, Normal Color, Warm Assessment and Plan - Assessment and Plan (Free Text) Assessment: Patient is a 52 year old female visiting from with probable past medical history of T2DM who was found unresponsive by on 05/01 (reportedly). EMS was called and patient was resuscitated and subsequently intubated on the field and brought to the ED. Code stroke was called, patient was subsequently admitted to ICU for close monitoring and evaluation for anoxic brain injury. Patient was noted on physical exam to have ring/ligature monge suggestive of suicidal attempt by hanging. [employer] involved and state high likelihood of suicidal attempt. Patient was treated for sepsis. Patient is s/p tracheostomy and PEG. Downgraded to telemetry. In June, able to be weaned of ventilator to trach collar w/ humidified oxygen and then finally off trach collar and O2 and now breathing independently. Patient now speaks full sentences, yet many words are jumbled and hard to understand. She follows commands well. She needs extensive physical therapy as she is still bed bound. Barium swallow indicated no abnormalities so PEG feeds stopped. Patient doing well on regular (bite-sized) diet. Will transition patient to oral medications. New onset UTI- course of cipro. However, sample was via Alvarado and repeat UA, Cx were clean. Temperature of 101.3 on 07/19- afebrile since. Blood Cx no growth. Patient was asked about possible suicide attempt leading to hospitalization. Patient becomes tearful each time asked. Patient denies suicidal ideation at this. Patient will need psychiatric consult once her speech is improved. Presently, the french folder is not able to understand most of what the patient says and the sister is mostly speaking for the patient. Patient is working with PT and OT daily and showing improvement. Discussed discharge planning with family- son says that he is getting apartment in [place] for the patient to move in with him when she is ready. Case management and SW working on discharge planning. Patient will follow-up at the [facility]. She will need outpatient therapy services and home equipment, including wheelchair. Plan: Anoxic brain injury, improving- 2/2 asphyxiation, suspect suicide attempt - Police involved when patient originally admitted- as per patient's family, the police will speak to patient when she is able to communicate better - Aspiration, seizure, fall precautions - S/p trach and PEG - Successfully decannulated on 07/14 - No longer using PEG as of 07/22 - GI taught patient's family how to flush PEG and cover while outpatient; GI recommends to keep in at least one month before considering removal to ensure patient has adequate oral intake - EEG (05/04): diffuse encephalopathy with burst suppression - Repeat EEG: severe non specific diffuse disturbances in cortical activity, gr ey matter dysfunction - Repeat CT head: no bleeding - MRI Brain: subacute favored over acute cerebral hypoxic insult with minimal involvement of the lower haris and the cerebellar hemispheres - Modified barium swallow 07/19: no abnormalities - Bite sized diet/thin liquids - PO meds - Aggressive PT/OT/ST - Multipodus boots - Hand splints - Flexeril 5 mg PO QHS - Ultram 25 mg PO TID PRN - Neurology consulted (Sherin/Guilherme) - Will get psychiatry consult once patient is able to communicate more clearly - Patient presently denies SI/PDW Transaminitis, mild - Likely shock liver earlier in hospitalization - Hold Crestor 07/26 - Follow LFTs Cough, acute, mild, improving - CXR 07/19: no active disease - Robitussin DM 5 mL Q4H PRN Type 2 diabetes mellitus, chronic - A1c 10.2- recheck as outpatient - Accuchecks ACHS - Hypoglycemic protocol - ISS medium dose - Metformin 500 mg PO BID Hypertension, chronic - Vitals Q8H - Decrease Metoprolol tartrate to 25 mg PO BID - Lisinopril 2.5 mg PO daily Fevers, resolved - Most recent 101.3 on 07/19, prior to that afebrile since 06/04 - CXR 07/19: no active disease - UA 07/20: nitrate neg, LE neg, WBC 6, lanny rare - UCx: no growth - Blood Cx 07/19: no growth - Ice packs, cooling blanket PRN - Motrin 200 mg Q6H PRN - PICC removed 07/22 - Off antibiotics - ID consulted (Nano) Urinary tract infection, resolved - Alvarado discontinued 07/14 - UA (Alvarado): LE 3+, nitrate neg, WBC 58, mod lanny - UCx (Alvarado): E. coli, Enterococcus faecalis - UA 07/20: nitrate neg, LE neg, WBC 6, lanny rare - UCx: no growth - Completed course of Cipro in July - Off antibiotics - ID consulted (Nano) Vomiting, resolved - Most recent emesis 07/17 - PEG feeds stopped- on PO diet - Discontinued PEG use completely on 07/22 - Aspiration precautions - AXR (07/01): no significant abnormalities, PEG in place - CT A/P (06/06): no obstruction - Pepcid 20 mg PO BID - GI consulted (Yobani) Leukocytosis, resolved - CXR (05/25): no acute pathology - Doppler b/l UE and LE (05/18): negative for DVTs - UCx (Alvarado): E. coli, Enterococcus faecalis - Repeat UA and Cx pending - Most recent Blood Cx (07/19): no growth - Off antibiotics - ID consulted (Nano) Respiratory failure, resolved - Duonebs Q6H - Decannulated on 07/14 - Laryngoscopy 06/18: vocal cords functional - Pulmonology consulted (Mika) Acute renal injury with oliguria, resolved - Now producing appropriate amount of urine - Likely due to dehydration - No hemodialysis needed - Nephrology consulted (Arvind) Constipation, resolved - Miralax 17 g PO daily NSTEMI, resolved - TG 265, choles 72, LDL 44, HDL 12 - ASA 81 mg PO daily - Crestor 5 mg PO QHS- hold due to transaminitis - Cardiology consulted (Victor Hugo) PPx: VTE: Heparin 5,000 units SC Q12H GI: Pepcid 20 mg PO BID Code status: full code Case was discussed with attending, Dr. Kebede.
[2018-07-27] MEDS: (Novolog) Insulin Aspart, Recombinant 100 u/ml 10 ml vial SC SCH ×4 (08:20→21:53)
[2018-07-27] MEDS: POLYETHYLENE GLYCOL 3350 17 GM/Dose PACKET PO SCH (09:58)
[2018-07-28] MEDS: Albuterol-Ipratrop 3 mg / 0.5 (3 ml) UD INH SCH ×4 (02:07→20:23)
[2018-07-28 06:30] LABS: BASO % 0.3 % (0.0-2.0); EOS # 0.1 K/uL (0.0-0.7); EOS % 1.6 % (0.0-4.0); HEMOGLOBIN 9.7 g/dL (11.0-16.0); LYMPH # 2.4 K/uL (1.0-4.3); LYMPH % 42.3 % (20.0-40.0); MEAN CELL VOLUME 82.9 fL (81.0-99.0); MEAN CORPUSCULAR HEMOGLOBIN 27.3 pg (27.0-31.0); MEAN CORPUSCULAR HGB CONC 32.9 g/dL (33.0-37.0); MEAN PLATELET VOLUME 9.5 fL (7.2-11.7); MONO # 0.5 K/uL (0.0-0.8); NEUT # 2.6 K/uL (1.8-7.0); NEUT % 46.8 % (50.0-75.0); NRBC % 0.1 % (0.0-2.0); RBC 3.55 Mil/uL (3.80-5.20); RED CELL DISTRIBUTION WIDTH 16.7 % (11.5-14.5); WHITE BLOOD COUNT 5.7 K/uL (4.8-10.8)
[2018-07-28 07:00] LABS: ALB/GLOB RATIO 0.9 (1.0-2.1); ALBUMIN 3.3 g/dL (3.5-5.0); ALT/SGPT 42 U/L (9-52); AST/SGOT 31 U/L (14-36); BLOOD UREA NITROGEN 7 mg/dL (7-17); CALCIUM 8.8 mg/dl (8.6-10.4)
[2018-07-28 07:06] LABS: GFR NON-AFRICAN AMERICAN > 60
[2018-07-28] MEDS ORDERED: Magnesium Sulfate 1 gm in D5W 1 GM/100 ML BAG IVPB ONE (07:14)
--- NOTE | 2018-07-28 07:14 | CP.PCM.PN ---
Subjective - Date & Time of Evaluation Date of Evaluation: 07/28/18 Time of Evaluation: 07:11 - Subjective Subjective: PGY-1 Arianne Burkett D.O. Medicine progress note for Dr. Kebede's service: Patient was seen and examined this morning. Sister and son are at bedside. Patient is sitting up on the edge of the bed independently. She has no acute co mplaints. Family is speaking with CM and SW regarding discharge plans. Objective - Vital Signs/Intake and Output Vital Signs (last 24 hours): Temp Pulse Resp BP Pulse Ox 97.7 F 73 20 112/68 99 07/28/18 00:05 07/28/18 00:05 07/28/18 00:05 07/28/18 00:05 07/28/18 00:05 Intake and Output: 07/28/18 07/28/18 06:59 18:59 Intake Total 400 Balance 400 - Medications Medications: Current Medications Albuterol/Ipratropium (Duoneb 3 Mg/0.5 Mg (3 Ml) Ud) 3 ml INH RQ6 [facility] Last Admin: 07/27/18 20:08 Dose: 3 ml Aspirin (Aspirin Chewable) 81 mg PO DAILY [facility] Last Admin: 07/27/18 09:58 Dose: 81 mg Cyclobenzaprine HCl (Flexeril) 5 mg PO HS [facility] Last Admin: 07/27/18 21:34 Dose: 5 mg Dextrose (Dextrose 50% Inj) 0 ml IV STAT PRN; Protocol PRN Reason: Hypoglycemia Protocol Last Admin: 06/21/18 16:15 Dose: 50 ml Dextrose (Glutose 15) 15 gm PO ONCE PRN; Protocol PRN Reason: Hypoglycemia Protocol Famotidine (Pepcid) 20 mg PO BID [facility] Last Admin: 07/27/18 17:46 Dose: 20 mg Glucagon (Glucagen Diagnostic Kit) 1 mg IM STAT PRN; Protocol PRN Reason: Hypoglycemia Protocol Guaifenesin/Dextromethorphan (Robitussin Dm) 5 ml PO Q4H PRN PRN Reason: Cough Last Admin: 07/25/18 09:12 Dose: 5 ml Heparin Sodium (Porcine) (Heparin) 5,000 units SC Q12 [facility] Last Admin: 07/27/18 21:34 Dose: 5,000 units Ibuprofen (Motrin Oral Susp) 400 mg PO Q6H PRN PRN Reason: Fever >100.4 F or mild pain Last Admin: 07/27/18 08:24 Dose: 400 mg Insulin Aspart (Novolog) 0 unit SC [facility]; Protocol Last Admin: 07/27/18 21:53 Dose: Not Given Lisinopril (Zestril) 2.5 mg PO DAILY [facility] Last Admin: 07/27/18 09:55 Dose: 2.5 mg Metformin HCl (Glucophage) 500 mg PO BID [facility] Last Admin: 07/27/18 17:46 Dose: 500 mg Metoprolol Tartrate (Lopressor) 25 mg PO BID [facility] Last Admin: 07/27/18 17:45 Dose: 25 mg Polyethylene Glycol (Miralax) 17 gm PO DAILY [facility] Last Admin: 07/27/18 09:58 Dose: 17 gm Rosuvastatin Calcium (Crestor) 5 mg PO HS [facility] Last Admin: 07/25/18 21:41 Dose: 5 mg Tramadol HCl (Ultram) 25 mg PO TID PRN PRN Reason: Pain, moderate (4-7) Vitamin A (Vitamin A & D Oint Ud Foilpak) 1 ea TOP BID PRN PRN Reason: Dry skin Last Admin: 07/20/18 17:45 Dose: 1 ea - Labs Labs: 07/28/18 06:20 07/28/18 06:20 PT 16.8 SECONDS (9.7-12.2) H 05/28/18 07:15 INR 1.5 05/28/18 07:15 APTT 34 SECONDS (21-34) 05/28/18 07:15 - Additional Findings Additional findings: - Constitutional Appears: No Acute Distress, Chronically Ill - Head Exam Head Exam: ATRAUMATIC, NORMAL INSPECTION - Eye Exam Eye Exam: EOMI, Normal appearance - ENT Exam ENT Exam: Mucous Membranes Moist - Neck Exam Additional comments: previous trach site healing well - Respiratory Exam Respiratory Exam: Clear to Ausculation Bilateral, NORMAL BREATHING PATTERN. absent: Respiratory Distress - Cardiovascular Exam Cardiovascular Exam: REGULAR RHYTHM, +S1, +S2 Additional comments: - GI/Abdominal Exam GI & Abdominal Exam: Soft. absent: Distended, Tenderness Additional comments: PEG- clamped - Extremities Exam Extremities Exam: Normal Capillary Refill. absent: Pedal Edema, Tenderness Additional comments: - Neurological Exam Neurological Exam: Alert, Awake. absent: Normal Gait Neuro motor strength exam: Left Upper Extremity: 5, Right Upper Extremity: 5, Left Lower Extremity: 5, Right Lower Extremity: 5 Additional comments: b/l hand contractures (R>L)- improving - splint on L hand overall muscle atrophy - Psychiatric Exam Psychiatric exam: Normal Affect. - Skin Skin Exam: Dry, Intact, Normal Color, Warm Assessment and Plan - Assessment and Plan (Free Text) Assessment: Patient is a 52 year old female visiting from with probable past medical history of T2DM who was found unresponsive by on 05/01 (reportedly). EMS was called and patient was resuscitated and subsequently intubated on the field and brought to the ED. Code stroke was called, patient was subsequently admitted to ICU for close monitoring and evaluation for anoxic brain injury. Patient was noted on physical exam to have ring/ligature monge suggestive of suicidal attempt by hanging. [employer] involved and state high likelihood of suicidal attempt. Patient was treated for sepsis. Patient is s/p tracheostomy and PEG. Downgraded to telemetry. In June, able to be weaned of ventilator to trach collar w/ humidified oxygen and then finally off trach collar and O2 and now breathing independently. Patient now speaks full sentences, yet many words are jumbled and hard to understand. She follows commands well. She needs extensive physical therapy as she is still bed bound. Barium swallow indicated no abnormalities so PEG feeds stopped. Patient doing well on regular (bite-sized) diet. Will transition patient to oral medications. New onset UTI- course of cipro. However, sample was via [facility] and repeat UA, Cx were clean. Temperature of 101.3 on 07/19- afebrile since. Blood Cx no growth. Patient was asked about possible suicide attempt leading to hospitalization. Patient becomes tearful each time asked. Carmela snyder denies suicidal ideation at this. Patient will need psychiatric consult once her speech is improved. Presently, the fruit rancher is not able to understand most of what the patient says and the sister is mostly speaking for the patient. Patient is working with PT and OT daily and showing improvement. Discussed discharge planning with family- son says that he is getting apartment in [place] for the patient to move in with him when she is ready. Case management and SW working on discharge planning. Patient will follow-up at the [facility]. She will need outpatient therapy services and home equipment, including wheelchair. Plan: Anoxic brain injury, improving- 2/2 asphyxiation, suspect suicide attempt - Police involved when patient originally admitted- as per patient's family, the police will speak to patient when she is able to communicate better - Aspiration, seizure, fall precautions - S/p trach and PEG - Successfully decannulated on 07/14 - No longer using PEG as of 07/22 - GI taught patient's family how to flush PEG and cover while outpatient; GI recommends to keep in at least one month before considering removal to ensure patient has adequate oral intake - EEG (05/04): diffuse encephalopathy with burst suppression - Repeat EEG: severe non specific diffuse disturbances in cortical activity, brown matter dysfunction - Repeat CT head: no bleeding - MRI Brain: subacute favored over acute cerebral hypoxic insult with minimal involvement of the lower haris and the cerebellar hemispheres - Modified barium swallow 07/19: no abnormalities - Bite sized diet/thin liquids - PO meds - Aggressive PT/OT/ST - Multipodus boots - Hand splints - Increase Flexeril to 10 mg PO QHS - Ultram 25 mg PO TID PRN - Neurology consulted (Sherin/Guilherme) - Will get psychiatry consult once patient is able to communicate more clearly - Patient presently denies SI/PDW Type 2 diabetes mellitus, chronic - A1c 10.2- recheck as outpatient - Accuchecks ACHS - Hypoglycemic protocol - ISS medium dose - Metformin 500 mg PO BID Hypertension, chronic - Vitals Q8H - Decrease Metoprolol tartrate to 12.5 mg PO BID - Lisinopril 2.5 mg PO daily Transaminitis, resolved - Likely shock liver earlier in hospitalization - Discontinue Tylenol - Restart Crestor 07/28 - Follow LFTs Cough, resolved - CXR 07/19: no active disease - Robitussin DM 5 mL Q4H PRN Fevers, resolved - Most recent 101.3 on 07/19, prior to that afebrile since 06/04 - CXR 07/19: no active disease - UA 07/20: nitrate neg, LE neg, WBC 6, lanny rare - UCx: no growth - Blood Cx 07/19: no growth - Ice packs, cooling blanket PRN - Motrin 200 mg Q6H PRN - PICC removed 07/22 - Off antibiotics - ID consulted (Nano) Urinary tract infection, resolved - Alvarado discontinued 07/14 - UA (Alvarado): LE 3+, nitrate neg, WBC 58, mod lanny - UCx (Alvarado): E. coli, Enterococcus faecalis - UA 07/20: nitrate neg, LE neg, WBC 6, lanny rare - UCx: no growth - Completed course of Cipro in July - Off antibiotics - ID consulted (Nano) Vomiting, resolved - Most recent emesis 07/17 - PEG feeds stopped- on PO diet - Discontinued PEG use completely on 07/22 - Aspiration precautions - AXR (07/01): no significant abnormalities, PEG in place - CT A/P (06/06): no obstruction - Pepcid 20 mg PO BID - GI consulted (Yobani) Leukocytosis, resolved - CXR (05/25): no acute pathology - Doppler b/l UE and LE (05/18): negative for DVTs - UCx (Alvarado): E. coli, Enterococcus faecalis - Repeat UA and Cx pending - Most recent Blood Cx (07/19): no growth - Off antibiotics - ID consulted (Nano) Respiratory failure, resolved - Duonebs Q6H - Decannulated on 07/14 - Laryngoscopy 06/18: vocal cords functional - Pulmonology consulted (Mika) Acute renal injury with oliguria, resolved - Now producing appropriate amount of urine - Likely due to dehydration - No hemodialysis needed - Nephrology consulted (Arvind) Constipation, resolved - Miralax 17 g PO daily NSTEMI, resolved - TG 265, choles 72, LDL 44, HDL 12 - ASA 81 mg PO daily - Crestor 5 mg PO QHS- hold due to transaminitis - Cardiology consulted (Victor Hugo) PPx: VTE: Heparin 5,000 units SC Q12H GI: Pepcid 20 mg PO BID Code status: full code Case was discussed with attending, Dr. Kebede.
[2018-07-28] MEDS: (Novolog) Insulin Aspart, Recombinant 100 u/ml 10 ml vial SC SCH ×4 (07:35→21:31)
[2018-07-28] MEDS: POLYETHYLENE GLYCOL 3350 17 GM/Dose PACKET PO SCH (10:13)
[2018-07-29] MEDS: Albuterol-Ipratrop 3 mg / 0.5 (3 ml) UD INH SCH ×4 (02:08→18:55)
--- NOTE | 2018-07-29 06:22 | CP.PCM.PN ---
<Arianne Burkett - Last Filed: 07/29/18 13:13> Subjective - Date & Time of Evaluation Date of Evaluation: 07/29/18 Time of Evaluation: 06:20 - Subjective Subjective: PGY-1 Arianne Burkett D.O. Medicine progress note for Dr. Gunderson's service: Patient was seen and examined this morning. Patient is in bed, no acute distres s. Family at bedside. Patient continues to work and progress with PT and OT. Patient's speech is gradually improving. Family says they are working with her even when therapists not present. Patient and family ready for discharge once safe discharge plan in place. Objective - Vital Signs/Intake and Output Vital Signs (last 24 hours): Temp Pulse Resp BP Pulse Ox 97.7 F 66 20 117/71 98 07/29/18 00:00 07/29/18 00:00 07/29/18 00:00 07/29/18 00:00 07/29/18 00:00 Intake and Output: 07/28/18 07/29/18 18:59 06:59 Intake Total 370 Balance 370 - Medications Medications: Current Medications Albuterol/Ipratropium (Duoneb 3 Mg/0.5 Mg (3 Ml) Ud) 3 ml INH RQ6 [facility] Last Admin: 07/28/18 20:23 Dose: 3 ml Aspirin (Aspirin Chewable) 81 mg PO DAILY [facility] Last Admin: 07/28/18 10:12 Dose: 81 mg Cyclobenzaprine HCl (Flexeril) 10 mg PO HS [facility] Last Admin: 07/28/18 21:41 Dose: 10 mg Dextrose (Dextrose 50% Inj) 0 ml IV STAT PRN; Protocol PRN Reason: Hypoglycemia Protocol Last Admin: 06/21/18 16:15 Dose: 50 ml Dextrose (Glutose 15) 15 gm PO ONCE PRN; Protocol PRN Reason: Hypoglycemia Protocol Famotidine (Pepcid) 20 mg PO BID [facility] Last Admin: 07/28/18 17:36 Dose: 20 mg Glucagon (Glucagen Diagnostic Kit) 1 mg IM STAT PRN; Protocol PRN Reason: Hypoglycemia Protocol Guaifenesin/Dextromethorphan (Robitussin Dm) 5 ml PO Q4H PRN PRN Reason: Cough Last Admin: 07/25/18 09:12 Dose: 5 ml Ibuprofen (Motrin Oral Susp) 400 mg PO Q6H PRN PRN Reason: Fever >100.4 F or mild pain Last Admin: 07/27/18 08:24 Dose: 400 mg Insulin Aspart (Novolog) 0 unit SC [facility]; Protocol Last Admin: 07/28/18 21:31 Dose: Not Given Lisinopril (Zestril) 2.5 mg PO DAILY [facility] Last Admin: 07/28/18 10:13 Dose: 2.5 mg Metformin HCl (Glucophage) 500 mg PO BID [facility] Last Admin: 07/28/18 17:36 Dose: 500 mg Metoprolol Tartrate (Lopressor) 12.5 mg PO BID [facility] Last Admin: 07/28/18 17:37 Dose: 12.5 mg Polyethylene Glycol (Miralax) 17 gm PO DAILY [facility] Last Admin: 07/28/18 10:13 Dose: 17 gm Rosuvastatin Calcium (Crestor) 5 mg PO HS [facility] Last Admin: 07/28/18 21:31 Dose: 5 mg Tramadol HCl (Ultram) 25 mg PO TID PRN PRN Reason: Pain, moderate (4-7) Vitamin A (Vitamin A & D Oint Ud Foilpak) 1 ea TOP BID PRN PRN Reason: Dry skin Last Admin: 07/20/18 17:45 Dose: 1 ea - Labs Labs: 07/28/18 06:20 07/28/18 06:20 PT 16.8 SECONDS (9.7-12.2) H 05/28/18 07:15 INR 1.5 05/28/18 07:15 APTT 34 SECONDS (21-34) 05/28/18 07:15 - Additional Findings Additional findings: - Constitutional Appears: No Acute Distress, Chronically Ill - Head Exam Head Exam: ATRAUMATIC, NORMAL INSPECTION - Eye Exam Eye Exam: EOMI, Normal appearance - ENT Exam ENT Exam: Mucous Membranes Moist - Neck Exam Additional comments: previous trach site healing well - Respiratory Exam Respiratory Exam: Clear to Ausculation Bilateral, NORMAL BREATHING PATTERN. absent: Respiratory Distress - Cardiovascular Exam Cardiovascular Exam: REGULAR RHYTHM, +S1, +S2 Additional comments: - GI/Abdominal Exam GI & Abdominal Exam: Soft. absent: Distended, Tenderness Additional comments: PEG- clamped - Extremities Exam Extremities Exam: Normal Capillary Refill. absent: Pedal Edema, Tenderness Additional comments: - Neurological Exam Neurological Exam: Alert, Awake. absent: Normal Gait Neuro motor strength exam: Left Upper Extremity: 5, Right Upper Extremity: 5, Left Lower Extremity: 5, Right Lower Extremity: 5 Additional comments: b/l hand contractures (R>L)- improving overall muscle atrophy - Psychiatric Exam Psychiatric exam: Normal Affect, Normal Mood. - Skin Skin Exam: Dry, Intact, Normal Color, Warm Assessment and Plan - Assessment and Plan (Free Text) Assessment: Patient is a 52 year old female visiting from with probable past medical history of T2DM who was found unresponsive by on 05/01 (reportedly). EMS was called and patient was resuscitated and subsequently intubated on the field and brought to the ED. Code stroke was called, patient was subsequently admitted to ICU for close monitoring and evaluation for anoxic brain injury. Patient was noted on physical exam to have ring/ligature monge suggestive of suicidal attempt by hanging. [employer] involved and state high likelihood of suicidal attempt. Patient was treated for sepsis. Patient is s/p tracheostomy and PEG. Downgraded to telemetry. In June, able to be weaned of ventilator to trach collar w/ humidified oxygen and then finally off trach collar and O2 and now breathing independently. Patient now speaks full sentences, yet many words are jumbled and hard to understand. She follows commands well. She needs extensive physical therapy as she is still bed bound. Barium swallow indicated no abnormalities so PEG feeds stopped. Patient doing well on regular (bite-sized) diet. Will transition patient to oral medications. New onset UTI- course of cipro. However, sample was via Alvarado and repeat UA, Cx were clean. Temperature of 101.3 on 07/19- afebrile since. Blood Cx no growth. Patient was asked about possible suicide attempt leading to hospitalization. Patient becomes tearful each time asked. Patient denies suicidal ideation at this. Patient will need psychiatric consult once her speech is improved. Presently, the child care specialist is not able to understand most of what the patient says and the sister is mostly speaking for the patient. Patient is working with PT and OT daily and showing improvement. Discussed discharge planning with family- son says that he is getting apartment in [place] for the patient to move in with him when she is ready. Case management and SW working on discharge planning. Patient will [facility] the [facility]. She will need outpatient therapy services and home equipment, including wheelchair. Plan: Anoxic brain injury, improving- 2/2 asphyxiation, suspect suicide attempt - Police involved when patient originally admitted- as per patient's family, the police will speak to patient when she is able to communicate better - Aspiration, seizure, fall precautions - S/p trach and PEG - Successfully decannulated on 07/14 - No longer using PEG as of 07/22 - GI taught patient's family how to flush PEG and cover while outpatient; GI recommends to keep in at least one month before considering removal to ensure patient has adequate oral intake - EEG (05/04): diffuse encephalopathy with burst suppression - Repeat EEG: severe non specific diffuse disturbances in cortical activity, brown matter dysfunction - Repeat CT head: no bleeding - MRI Brain: subacute favored over acute cerebral hypoxic insult with minimal involvement of the lower haris and the cerebellar hemispheres - Modified barium swallow 07/19: no abnormalities - Bite sized diet/thin liquids - PO meds - Aggressive PT/OT/ST - Multipodus boots - Hand splints - Flexeril 10 mg PO QHS - Ultram 25 mg PO TID PRN - Motrin 400 mg Q6H PRN - Neurology consulted (Sherin/Guilherme) - Will get psychiatry consult once patient is able to communicate more clearly - Patient presently denies SI/PDW Type 2 diabetes mellitus, chronic - A1c 10.2- recheck as outpatient - Accuchecks ACHS - Hypoglycemic protocol - ISS medium dose - Metformin 500 mg PO BID Hypertension, chronic - Vitals Q8H - Discontinue Metoprolol tartrate - Lisinopril 2.5 mg PO daily Transaminitis, resolved - Likely shock liver earlier in hospitalization - Discontinue Tylenol - Restart Crestor 07/28 - Follow LFTs Cough, resolved - CXR 07/19: no active disease - Robitussin DM 5 mL Q4H PRN Fevers, resolved - Most recent 101.3 on 07/19, prior to that afebrile since 06/04 - CXR 07/19: no active disease - UA 07/20: nitrate neg, LE neg, WBC 6, lanny rare - UCx: no growth - Blood Cx 07/19: no growth - Ice packs, cooling blanket PRN - Motrin 400 mg Q6H PRN - PICC removed 07/22 - Off antibiotics - ID consulted (Nano) Urinary tract infection, resolved - Alvarado discontinued 07/14 - UA (Alvarado): LE 3+, nitrate neg, WBC 58, mod lanny - UCx (Alvarado): E. coli, Enterococcus faecalis - UA 07/20: nitrate neg, LE neg, WBC 6, lanny rare - UCx: no growth - Completed course of Cipro in July - Off antibiotics - ID consulted (Nano) Vomiting, resolved - Most recent emesis 07/17 - PEG feeds stopped- on PO diet - Discontinued PEG use completely on 07/22 - Aspiration precautions - AXR (07/01): no significant abnormalities, PEG in place - CT A/P (06/06): no obstruction - Pepcid 20 mg PO BID - GI consulted (Yobani) Leukocytosis, resolved - CXR (05/25): no acute pathology - Doppler b/l UE and LE (05/18): negative for DVTs - UCx (Alvarado): E. coli, Enterococcus faecalis - Repeat UCx no growth - Most recent Blood Cx (07/19): no growth - Off antibiotics - ID consulted (Nano) Respiratory failure, resolved - Duonebs Q6H - Decannulated on 07/14 - Laryngoscopy 06/18: vocal cords functional - Pulmonology consulted (Mika) Acute renal injury with oliguria, resolved - Now producing appropriate amount of urine - Likely due to dehydration - No hemodialysis needed - Nephrology consulted (Arvind) Constipation, resolved - Miralax 17 g PO daily NSTEMI, resolved - TG 265, choles 72, LDL 44, HDL 12 - Recheck lipid panel as outpatient - ASA 81 mg PO daily - Crestor 5 mg PO QHS - Cardiology consulted (Victor Hugo) PPx: VTE: SCDs, Heparin 5,000 units SC Q12H GI: Pepcid 20 mg PO BID Code status: full code Case was discussed with attending, Dr. Gunderson. <Minesh Gunderson - Last Filed: 08/03/18 21:36> Objective - Vital Signs/Intake and Output Vital Signs (last 24 hours): Temp Pulse Resp BP Pulse Ox 97.2 F L 81 20 109/71 98 08/03/18 15:00 08/03/18 15:00 08/03/18 15:00 08/03/18 15:00 08/03/18 15:00 - Labs Labs: 08/03/18 08:13 08/03/18 08:13 PT 16.8 SECONDS (9.7-12.2) H 05/28/18 07:15 INR 1.5 05/28/18 07:15 APTT 34 SECONDS (21-34) 05/28/18 07:15 Attending/Attestation - Attestation I have personally seen and examined this patient.: Yes I have fully participated in the care of the patient.: Yes I have reviewed all pertinent clinical information, including history, physical exam and plan: Yes Notes (Text): 08/03/18 21:29 Anoxic brain injury DM HTN Pt continues to improve clinically. c/w aggressive PT/OT
[2018-07-29] MEDS: (Novolog) Insulin Aspart, Recombinant 100 u/ml 10 ml vial SC SCH ×4 (09:02→21:57)
[2018-07-29] MEDS: POLYETHYLENE GLYCOL 3350 17 GM/Dose PACKET PO SCH (09:44)
[2018-07-30] MEDS: Albuterol-Ipratrop 3 mg / 0.5 (3 ml) UD INH SCH ×4 (01:28→21:06)
--- NOTE | 2018-07-30 07:20 | CP.PCM.PN ---
<Arianne Burkett - Last Filed: 07/30/18 18:32> Subjective - Date & Time of Evaluation Date of Evaluation: 07/30/18 Time of Evaluation: 07:19 - Subjective Subjective: PGY-1 Arianne Burkett D.O. Medicine progress note for Dr. Gundersno's service: Patient was seen and examined this morning. She is wheeling herself with her fe et in the hallways with PT. She is smiling and has no acute complaints. Family is at bedside. Son is willing to take patient to his apartment. Spoke to case management- They are working on getting appropriate assistive devices for safe discharge. Objective - Vital Signs/Intake and Output Vital Signs (last 24 hours): Temp Pulse Resp BP Pulse Ox 98.1 F 78 20 119/69 100 07/30/18 00:00 07/30/18 00:00 07/30/18 00:00 07/30/18 00:00 07/30/18 00:00 - Medications Medications: Current Medications Albuterol/Ipratropium (Duoneb 3 Mg/0.5 Mg (3 Ml) Ud) 3 ml INH RQ6 [facility] Last Admin: 07/30/18 01:28 Dose: 3 ml Aspirin (Aspirin Chewable) 81 mg PO DAILY [facility] Last Admin: 07/29/18 09:44 Dose: 81 mg Cyclobenzaprine HCl (Flexeril) 10 mg PO HS [facility] Last Admin: 07/29/18 21:57 Dose: 10 mg Dextrose (Dextrose 50% Inj) 0 ml IV STAT PRN; Protocol PRN Reason: Hypoglycemia Protocol Last Admin: 06/21/18 16:15 Dose: 50 ml Dextrose (Glutose 15) 15 gm PO ONCE PRN; Protocol PRN Reason: Hypoglycemia Protocol Famotidine (Pepcid) 20 mg PO BID [facility] Last Admin: 07/29/18 18:19 Dose: 20 mg Glucagon (Glucagen Diagnostic Kit) 1 mg IM STAT PRN; Protocol PRN Reason: Hypoglycemia Protocol Guaifenesin/Dextromethorphan (Robitussin Dm) 5 ml PO Q4H PRN PRN Reason: Cough Last Admin: 07/25/18 09:12 Dose: 5 ml Ibuprofen (Motrin Oral Susp) 400 mg PO Q6H PRN PRN Reason: Fever >100.4 F or mild pain Last Admin: 07/27/18 08:24 Dose: 400 mg Insulin Aspart (Novolog) 0 unit SC [facility]; Protocol Last Admin: 07/29/18 21:57 Dose: Not Given Lisinopril (Zestril) 2.5 mg PO DAILY [facility] Last Admin: 07/29/18 09:44 Dose: 2.5 mg Metformin HCl (Glucophage) 500 mg PO BID [facility] Last Admin: 07/29/18 18:19 Dose: 500 mg Polyethylene Glycol (Miralax) 17 gm PO DAILY [facility] Last Admin: 07/29/18 09:44 Dose: 17 gm Rosuvastatin Calcium (Crestor) 5 mg PO HS [facility] Last Admin: 07/29/18 21:57 Dose: 5 mg Tramadol HCl (Ultram) 25 mg PO TID PRN PRN Reason: Pain, moderate (4-7) Vitamin A (Vitamin A & D Oint Ud Foilpak) 1 ea TOP BID PRN PRN Reason: Dry skin Last Admin: 07/20/18 17:45 Dose: 1 ea - Labs Labs: 07/28/18 06:20 07/28/18 06:20 PT 16.8 SECONDS (9.7-12.2) H 05/28/18 07:15 INR 1.5 05/28/18 07:15 APTT 34 SECONDS (21-34) 05/28/18 07:15 - Additional Findings Additional findings: - Constitutional Appears: No Acute Distress, Chronically Ill - Head Exam Head Exam: ATRAUMATIC, NORMAL INSPECTION - Eye Exam Eye Exam: EOMI, Normal appearance - ENT Exam ENT Exam: Mucous Membranes Moist - Neck Exam Additional comments: previous trach site healing well - Respiratory Exam Respiratory Exam: Clear to Ausculation Bilateral, NORMAL BREATHING PATTERN. absent: Respiratory Distress - Cardiovascular Exam Cardiovascular Exam: REGULAR RHYTHM, +S1, +S2 Additional comments: - GI/Abdominal Exam GI & Abdominal Exam: Soft. absent: Distended, Tenderness Additional comments: PEG- clamped - Extremities Exam Extremities Exam: Normal Capillary Refill. absent: Pedal Edema, Tenderness Additional comments: - Neurological Exam Neurological Exam: Alert, Awake. absent: Normal Gait Neuro motor strength exam: Left Upper Extremity: 5, Right Upper Extremity: 5, Left Lower Extremity: 5, Right Lower Extremity: 5 Additional comments: b/l hand contractures (R>L)- improving overall muscle atrophy - Psychiatric Exam Psychiatric exam: Normal Affect, Normal Mood. - Skin Skin Exam: Dry, Intact, Normal Color, Warm Assessment and Plan - Assessment and Plan (Free Text) Assessment: Patient is a 52 year old female visiting from with probable past medical history of T2DM who was found unresponsive by on 05/01 (reportedly). EMS was called and patient was resuscitated and subsequently intubated on the field and brought to the ED. Code stroke was called, patient was subsequently admitted to ICU for close monitoring and evaluation for anoxic brain injury. Patient was noted on physical exam to have ring/ligature monge suggestive of suicidal attempt by hanging. [employer] involved and state high likelihood of suicidal attempt. Patient was treated for sepsis. Patient is s/p tracheostomy and PEG. Downgraded to telemetry. In June, able to be weaned of ventilator to trach collar w/ humidified oxygen and then finally off trach collar and O2 and now breathing independently. Patient now speaks full sentences, yet many words are jumbled and hard to understand. She follows commands well. She needs extensive physical therapy as she is still bed bound. Barium swallow indicated no abnormalities so PEG feeds stopped. Patient doing well on regular (bite-sized) diet. Will transition patient to oral medications. New onset UTI- course of cipro. However, sample was via Alvarado and repeat UA, Cx were clean. Temperature of 101.3 on 07/19- afebrile since. Blood Cx no growth. Patient was asked about possible suicide attempt leading to hospitalization. Patient becomes tearful each time asked. Patient denies suicidal ideation at this time. Consulted psychiatry- waiting for recs. Patient is working with PT and OT daily and showing improvement. Discussed discharge planning with family. Patient is medically stable for discharge. Case management and SW working on discharge planning. Patient will follow-up at the [facility]. She will need outpatient therapy services and home equipment, including wheelchair. Son has apartment and will take patient there. Plan for discharge early next week. Plan: Anoxic brain injury, improving- 2/2 asphyxiation, suspect suicide attempt - Police involved when patient originally admitted- as per patient's family, the police will speak to patient when she is able to communicate better - Aspiration, seizure, fall precautions - S/p trach and PEG - Successfully decannulated on 07/14 - No longer using PEG as of 07/22 - GI taught patient's family how to flush PEG and cover while outpatient; GI recommends to keep in at least one month before considering removal to ensure patient has adequate oral intake - EEG (05/04): diffuse encephalopathy with burst suppression - Repeat EEG: severe non specific diffuse disturbances in cortical activity, brown matter dysfunction - Repeat CT head: no bleeding - MRI Brain: subacute favored over acute cerebral hypoxic insult with minimal involvement of the lower haris and the cerebellar hemispheres - Modified barium swallow 07/19: no abnormalities - Bite sized diet/thin liquids - PO meds - Aggressive PT/OT/ST - Multipodus boots - Hand splints - Flexeril 10 mg PO QHS - Ultram 25 mg PO TID PRN - Motrin 400 mg Q6H PRN - Neurology consulted (Sherin/Guilherme) - Psychiatry consulted (Margaret) Type 2 diabetes mellitus, chronic - A1c 10.2- recheck as outpatient - Accuchecks ACHS - Hypoglycemic protocol - ISS medium dose - Metformin 500 mg PO BID Hypertension, chronic - Vitals Q8H - Lisinopril 2.5 mg PO daily Transaminitis, resolved - Likely shock liver earlier in hospitalization - Discontinued Tylenol - Restarted Crestor 07/28 - Follow LFTs Cough, resolved - CXR 07/19: no active disease - Robitussin DM 5 mL Q4H PRN Fevers, resolved - Most recent 101.3 on 07/19, prior to that afebrile since 06/04 - CXR 07/19: no active disease - UA 07/20: nitrate neg, LE neg, WBC 6, lanny rare - UCx: no growth - Blood Cx 07/19: no growth - Ice packs, cooling blanket PRN - Motrin 400 mg Q6H PRN - PICC removed 07/22 - Off antibiotics - ID consulted (Nano) Urinary tract infection, resolved - Alvarado discontinued 07/14 - UA (Alvarado): LE 3+, nitrate neg, WBC 58, mod lanny - UCx (Alvarado): E. coli, Enterococcus faecalis - UA 07/20: nitrate neg, LE neg, WBC 6, lanny rare - UCx: no growth - Completed course of Cipro in July - Off antibiotics - ID consulted (Nano) Vomiting, resolved - Most recent emesis 07/17 - PEG feeds stopped- on PO diet - Discontinued PEG use completely on 07/22 - Aspiration precautions - AXR (07/01): no significant abnormalities, PEG in place - CT A/P (06/06): no obstruction - Pepcid 20 mg PO BID - GI consulted (Yobani) Leukocytosis, resolved - CXR (05/25): no acute pathology - Doppler b/l UE and LE (05/18): negative for DVTs - UCx (Jenny): E. coli, Enterococcus faecalis - Repeat UCx no growth - Most recent Blood Cx (07/19): no growth - Off antibiotics - ID consulted (Nano) Respiratory failure, resolved - Decrease Duonebs to Q8H - Incentive spirometry - Decannulated on 07/14 - Laryngoscopy 06/18: vocal cords functional - Pulmonology consulted (Mika) Acute renal injury with oliguria, resolved - Now producing appropriate amount of urine - Likely due to dehydration - No hemodialysis needed - Nephrology consulted (Arvind) Constipation, resolved - Miralax 17 g PO daily NSTEMI, resolved - TG 265, choles 72, LDL 44, HDL 12 - Recheck lipid panel as outpatient - ASA 81 mg PO daily - Crestor 5 mg PO QHS - Cardiology consulted (Victor Hugo) PPx: VTE: SCDs, Heparin 5,000 units SC Q12H GI: Pepcid 20 mg PO BID Code status: full code Case was discussed with attending, Dr. Gunderson. <Minesh Gunderson - Last Filed: 08/03/18 21:28> Objective - Vital Signs/Intake and Output Vital Signs (last 24 hours): Temp Pulse Resp BP Pulse Ox 97.2 F L 81 20 109/71 98 08/03/18 15:00 08/03/18 15:00 08/03/18 15:00 08/03/18 15:00 08/03/18 15:00 - Labs Labs: 08/03/18 08:13 08/03/18 08:13 PT 16.8 SECONDS (9.7-12.2) H 05/28/18 07:15 INR 1.5 05/28/18 07:15 APTT 34 SECONDS (21-34) 05/28/18 07:15 Attending/Attestation - Attestation I have personally seen and examined this patient.: Yes I have fully participated in the care of the patient.: Yes I have reviewed all pertinent clinical information, including history, physical exam and plan: Yes Notes (Text): 08/03/18 21:26 Anoxic brain injury DM HTN Pt continues to improve clinically. c/w aggressive PT/OT Psych eval as it remains unclear, if initial presentation was a suicidal attempt
[2018-07-30] MEDS: (Novolog) Insulin Aspart, Recombinant 100 u/ml 10 ml vial SC SCH ×4 (07:58→21:38)
[2018-07-30 08:04] LABS: BASO % 0.6 % (0.0-2.0); EOS # 0.1 K/uL (0.0-0.7); EOS % 2.1 % (0.0-4.0); HEMOGLOBIN 9.9 g/dL (11.0-16.0); LYMPH # 1.9 K/uL (1.0-4.3); LYMPH % 36.9 % (20.0-40.0); MEAN CELL VOLUME 83.2 fL (81.0-99.0); MEAN CORPUSCULAR HEMOGLOBIN 27.6 pg (27.0-31.0); MEAN CORPUSCULAR HGB CONC 33.2 g/dL (33.0-37.0); MEAN PLATELET VOLUME 9.2 fL (7.2-11.7); MONO # 0.5 K/uL (0.0-0.8); NEUT # 2.6 K/uL (1.8-7.0); NEUT % 50.4 % (50.0-75.0); RBC 3.57 Mil/uL (3.80-5.20); WHITE BLOOD COUNT 5.1 K/uL (4.8-10.8)
[2018-07-30 08:23] LABS: ALBUMIN 3.4 g/dL (3.5-5.0); ALT/SGPT 35 U/L (9-52); AST/SGOT 34 U/L (14-36); BLOOD UREA NITROGEN 9 mg/dL (7-17); CALCIUM 8.9 mg/dl (8.6-10.4); GFR NON-AFRICAN AMERICAN > 60
[2018-07-30] MEDS: POLYETHYLENE GLYCOL 3350 17 GM/Dose PACKET PO SCH (09:44)
[2018-07-30] MEDS: Magnesium Sulfate 1 gm in D5W 1 GM/100 ML BAG IVPB SCH ×2 (09:44→10:35)
[2018-07-30] MEDS: guaiFENesin DM 100 mg-10 mg/5 ml UD PO PRN (17:23)
--- NOTE | 2018-07-31 00:09 | CP.PCM.PN ---
<Ritu Dominguez - Last Filed: 07/31/18 06:20> Subjective - Date & Time of Evaluation Date of Evaluation: 07/31/18 Time of Evaluation: 06:16 - Subjective Subjective: Patient examined with family in room. No acute overnight events. Patient was sleeping, but awakens and allows me to examine her, assists in moving aside clothing. Pt reports some cough, denies chest pain, nausea, LE pain. Objective - Vital Signs/Intake and Output Vital Signs (last 24 hours): Temp Pulse Resp BP Pulse Ox 98 F 79 20 110/66 99 07/30/18 16:00 07/30/18 16:00 07/30/18 16:00 07/30/18 16:00 07/30/18 16:00 Intake and Output: 07/30/18 07/31/18 18:59 06:59 Intake Total 720 Output Total 500 Balance 220 - Medications Medications: Current Medications Albuterol/Ipratropium (Duoneb 3 Mg/0.5 Mg (3 Ml) Ud) 3 ml INH RQ8 [facility] Last Admin: 07/30/18 21:06 Dose: 3 ml Aspirin (Aspirin Chewable) 81 mg PO DAILY [facility] Last Admin: 07/30/18 09:44 Dose: 81 mg Cyclobenzaprine HCl (Flexeril) 10 mg PO HS [facility] Last Admin: 07/30/18 21:38 Dose: 10 mg Dextrose (Dextrose 50% Inj) 0 ml IV STAT PRN; Protocol PRN Reason: Hypoglycemia Protocol Last Admin: 06/21/18 16:15 Dose: 50 ml Dextrose (Glutose 15) 15 gm PO ONCE PRN; Protocol PRN Reason: Hypoglycemia Protocol Famotidine (Pepcid) 20 mg PO BID [facility] Last Admin: 07/30/18 17:18 Dose: 20 mg Glucagon (Glucagen Diagnostic Kit) 1 mg IM STAT PRN; Protocol PRN Reason: Hypoglycemia Protocol Guaifenesin/Dextromethorphan (Robitussin Dm) 5 ml PO Q4H PRN PRN Reason: Cough Last Admin: 07/30/18 17:23 Dose: 5 ml Ibuprofen (Motrin Oral Susp) 400 mg PO Q6H PRN PRN Reason: Fever >100.4 F or mild pain Last Admin: 07/27/18 08:24 Dose: 400 mg Insulin Aspart (Novolog) 0 unit SC [facility]; Protocol Last Admin: 07/30/18 21:38 Dose: Not Given Lisinopril (Zestril) 2.5 mg PO DAILY [facility] Last Admin: 07/30/18 09:43 Dose: 2.5 mg Metformin HCl (Glucophage) 500 mg PO BID [facility] Last Admin: 07/30/18 17:18 Dose: 500 mg Polyethylene Glycol (Miralax) 17 gm PO DAILY [facility] Last Admin: 07/30/18 09:44 Dose: 17 gm Rosuvastatin Calcium (Crestor) 5 mg PO HS [facility] Last Admin: 07/30/18 21:38 Dose: 5 mg Tramadol HCl (Ultram) 25 mg PO TID PRN PRN Reason: Pain, moderate (4-7) Vitamin A (Vitamin A & D Oint Ud Foilpak) 1 ea TOP BID PRN PRN Reason: Dry skin Last Admin: 07/20/18 17:45 Dose: 1 ea - Labs Labs: 07/30/18 07:51 07/30/18 07:51 PT 16.8 SECONDS (9.7-12.2) H 05/28/18 07:15 INR 1.5 05/28/18 07:15 APTT 34 SECONDS (21-34) 05/28/18 07:15 - Constitutional Appears: Non-toxic, No Acute Distress, Chronically Ill - Head Exam Head Exam: ATRAUMATIC, NORMAL INSPECTION, NORMOCEPHALIC - Eye Exam Eye Exam: EOMI, Normal appearance - ENT Exam ENT Exam: Mucous Membranes Moist, Normal Exam - Neck Exam Neck Exam: Normal Inspection - Respiratory Exam Respiratory Exam: Clear to Ausculation Bilateral, NORMAL BREATHING PATTERN - Cardiovascular Exam Cardiovascular Exam: REGULAR RHYTHM. absent: Tachycardia - GI/Abdominal Exam GI & Abdominal Exam: Soft, Normal Bowel Sounds. absent: Distended Additional comments: Peg tube clamped in place, bandage clean/dry/intact - Extremities Exam Extremities Exam: Calf Tenderness. absent: Pedal Edema Additional comments: muscle wasting - Neurological Exam Neurological Exam: Alert, Awake - Psychiatric Exam Psychiatric exam: Normal Affect, Normal Mood - Skin Skin Exam: Dry, Intact, Normal Color, Warm Assessment and Plan - Assessment and Plan (Free Text) Assessment: 52 year old female admitted for evaluation and treatment of anoxic brain injury Plan: Anoxic brain injury -status improving; off trach, peg -ativan prn anxiety -PT/OT/ST -crestor, ASA -Neurology consulted, Dr. Duff/Guilherme -Psychiatry consulted, Respiratory failure -off trach -duonebs HTN -lisinopril 2.5mg qd DM -ISS -metformin 500mg BID -accuchecks Nutrition -Modified consistency diet -supplements -miralax Ppx -VTE ppx: heparin 5000 q8, added back on -GI ppx: pepcid -PO/OT/Speech Will discuss with Dr. Sheikh -Ritu Dominguez, PGY-1 <Yann Sheikh H - Last Filed: 07/31/18 11:16> Objective - Vital Signs/Intake and Output Vital Signs (last 24 hours): Temp Pulse Resp BP Pulse Ox 97.9 F 84 20 123/86 99 07/31/18 08:24 07/31/18 08:24 07/31/18 08:24 07/31/18 08:24 07/31/18 08:24 Intake and Output: 07/31/18 07/31/18 06:59 18:59 Intake Total 150 Balance 150 - Medications Medications: Current Medications Albuterol/Ipratropium (Duoneb 3 Mg/0.5 Mg (3 Ml) Ud) 3 ml INH RQ8 [facility] Last Admin: 07/31/18 08:26 Dose: 3 ml Aspirin (Aspirin Chewable) 81 mg PO DAILY [facility] Last Admin: 07/31/18 10:30 Dose: 81 mg Cyclobenzaprine HCl (Flexeril) 10 mg PO HS [facility] Last Admin: 07/30/18 21:38 Dose: 10 mg Dextrose (Dextrose 50% Inj) 0 ml IV STAT PRN; Protocol PRN Reason: Hypoglycemia Protocol Last Admin: 06/21/18 16:15 Dose: 50 ml Dextrose (Glutose 15) 15 gm PO ONCE PRN; Protocol PRN Reason: Hypoglycemia Protocol Famotidine (Pepcid) 20 mg PO BID [facility] Last Admin: 07/31/18 10:30 Dose: 20 mg Glucagon (Glucagen Diagnostic Kit) 1 mg IM STAT PRN; Protocol PRN Reason: Hypoglycemia Protocol Guaifenesin/Dextromethorphan (Robitussin Dm) 5 ml PO Q4H PRN PRN Reason: Cough Last Admin: 07/30/18 17:23 Dose: 5 ml Heparin Sodium (Porcine) (Heparin) 5,000 units SC Q8 [facility] Last Admin: 07/31/18 05:57 Dose: 5,000 units Ibuprofen (Motrin Oral Susp) 400 mg PO Q6H PRN PRN Reason: Fever >100.4 F or mild pain Last Admin: 07/27/18 08:24 Dose: 400 mg Insulin Aspart (Novolog) 0 unit SC ACHS [facility]; Protocol Last Admin: 07/31/18 07:54 Dose: Not Given Lisinopril (Zestril) 2.5 mg PO DAILY [facility] Last Admin: 07/31/18 10:30 Dose: 2.5 mg Metformin HCl (Glucophage) 500 mg PO BID [facility] Last Admin: 07/31/18 10:30 Dose: 500 mg Polyethylene Glycol (Miralax) 17 gm PO DAILY [facility] Last Admin: 07/31/18 10:30 Dose: 17 gm Rosuvastatin Calcium (Crestor) 5 mg PO HS [facility] Last Admin: 07/30/18 21:38 Dose: 5 mg Tramadol HCl (Ultram) 25 mg PO TID PRN PRN Reason: Pain, moderate (4-7) Vitamin A (Vitamin A & D Oint Ud Foilpak) 1 ea TOP BID PRN PRN Reason: Dry skin Last Admin: 07/20/18 17:45 Dose: 1 ea - Labs Labs: 07/30/18 07:51 07/30/18 07:51 PT 16.8 SECONDS (9.7-12.2) H 05/28/18 07:15 INR 1.5 05/28/18 07:15 APTT 34 SECONDS (21-34) 05/28/18 07:15 Attending/Attestation - Attestation I have personally seen and examined this patient.: Yes I have fully participated in the care of the patient.: Yes I have reviewed all pertinent clinical information, including history, physical exam and plan: Yes Notes (Text): 07/31/18 11:16 Medical attending: Patient was seen and examined by me. Agree with the above note by the resident At this moment I do not have anything new to add. She is very slowly improving overtime Family member faithfully at bedside Yann Sheikh
[2018-07-31] MEDS: Albuterol-Ipratrop 3 mg / 0.5 (3 ml) UD INH SCH ×2 (01:00→08:26)
[2018-07-31] MEDS: (Novolog) Insulin Aspart, Recombinant 100 u/ml 10 ml vial SC SCH ×4 (07:54→21:57)
[2018-07-31] MEDS: POLYETHYLENE GLYCOL 3350 17 GM/Dose PACKET PO SCH (10:30)
--- NOTE | 2018-08-01 00:13 | CP.PCM.PN ---
<Ritu Dominguez - Last Filed: 08/01/18 06:15> Subjective - Date & Time of Evaluation Date of Evaluation: 08/01/18 Time of Evaluation: 06:07 - Subjective Subjective: Patient evaluated at bedside with sister in room. No acute events overnight. Patient just finished having a BM. Patient reports she is eating well and with good appetite. Patient and sister reports PT is coming and doing exercises. Both patient and sister are requesting to know if a drug screen was done on admission. Patient says she feels well and denies chest pain, SOB, nausea, diarrhea. Objective - Vital Signs/Intake and Output Vital Signs (last 24 hours): Temp Pulse Resp BP Pulse Ox 97.7 F 72 20 115/70 97 07/31/18 23:40 07/31/18 23:40 07/31/18 23:40 07/31/18 23:40 07/31/18 23:40 Intake and Output: 07/31/18 08/01/18 18:59 06:59 Output Total 0 Balance 0 - Medications Medications: Current Medications Albuterol/Ipratropium (Duoneb 3 Mg/0.5 Mg (3 Ml) Ud) 3 ml INH RBID [facility] Aspirin (Aspirin Chewable) 81 mg PO DAILY [facility] Last Admin: 07/31/18 10:30 Dose: 81 mg Cyclobenzaprine HCl (Flexeril) 10 mg PO HS [facility] Last Admin: 07/31/18 21:49 Dose: 10 mg Dextrose (Dextrose 50% Inj) 0 ml IV STAT PRN; Protocol PRN Reason: Hypoglycemia Protocol Last Admin: 06/21/18 16:15 Dose: 50 ml Dextrose (Glutose 15) 15 gm PO ONCE PRN; Protocol PRN Reason: Hypoglycemia Protocol Famotidine (Pepcid) 20 mg PO BID [facility] Last Admin: 07/31/18 17:56 Dose: 20 mg Glucagon (Glucagen Diagnostic Kit) 1 mg IM STAT PRN; Protocol PRN Reason: Hypoglycemia Protocol Guaifenesin/Dextromethorphan (Robitussin Dm) 5 ml PO Q4H PRN PRN Reason: Cough Last Admin: 07/30/18 17:23 Dose: 5 ml Heparin Sodium (Porcine) (Heparin) 5,000 units SC Q8 [facility] Last Admin: 07/31/18 21:49 Dose: 5,000 units Ibuprofen (Motrin Oral Susp) 400 mg PO Q6H PRN PRN Reason: Fever >100.4 F or mild pain Last Admin: 07/27/18 08:24 Dose: 400 mg Insulin Aspart (Novolog) 0 unit SC ACHS [facility]; Protocol Last Admin: 07/31/18 21:57 Dose: Not Given Lisinopril (Zestril) 2.5 mg PO DAILY [facility] Last Admin: 07/31/18 10:30 Dose: 2.5 mg Metformin HCl (Glucophage) 850 mg PO Q12 [facility] Last Admin: 07/31/18 22:55 Dose: Not Given Polyethylene Glycol (Miralax) 17 gm PO DAILY [facility] Last Admin: 07/31/18 10:30 Dose: 17 gm Rosuvastatin Calcium (Crestor) 5 mg PO HS [facility] Last Admin: 07/31/18 21:48 Dose: 5 mg Tramadol HCl (Ultram) 25 mg PO TID PRN PRN Reason: Pain, moderate (4-7) Vitamin A (Vitamin A & D Oint Ud Foilpak) 1 ea TOP BID PRN PRN Reason: Dry skin Last Admin: 07/20/18 17:45 Dose: 1 ea - Labs Labs: 07/30/18 07:51 07/30/18 07:51 PT 16.8 SECONDS (9.7-12.2) H 05/28/18 07:15 INR 1.5 05/28/18 07:15 APTT 34 SECONDS (21-34) 05/28/18 07:15 - Additional Findings Additional findings: - Constitutional Appears: Non-toxic, No Acute Distress, Chronically Ill - Head Exam Head Exam: ATRAUMATIC, NORMAL INSPECTION, NORMOCEPHALIC - Eye Exam Eye Exam: EOMI, Normal appearance - ENT Exam ENT Exam: Mucous Membranes Moist, Normal Exam - Neck Exam Neck Exam: Normal Inspection - Respiratory Exam Respiratory Exam: Clear to Ausculation Bilateral, NORMAL BREATHING PATTERN - Cardiovascular Exam Cardiovascular Exam: REGULAR RHYTHM. absent: Tachycardia - GI/Abdominal Exam GI & Abdominal Exam: Soft, Normal Bowel Sounds. absent: Distended Additional comments: Peg tube clamped in place, bandage clean/dry/intact - Extremities Exam Extremities Exam: Calf Tenderness. absent: Pedal Edema Additional comments: muscle wasting - Neurological Exam Neurological Exam: Alert, Awake - Psychiatric Exam Psychiatric exam: Normal Affect, Normal Mood - Skin Skin Exam: Dry, Intact, Normal Color, Warm Assessment and Plan - Assessment and Plan (Free Text) Assessment: 52 year old female admitted for evaluation and treatment of anoxic brain injury Plan: Anoxic brain injury -status improving; off trach, peg -ativan prn anxiety -PT/OT/ST -crestor, ASA -Neurology consulted, Dr. Duff/Guilherme -Psychiatry consulted, Respiratory failure -off trach -duonebs BID HTN -lisinopril 2.5mg qd DM -ISS ACHS -metformin increased from 500 to 850mg BID -accuchecks ACHS -hypoglycemia protocol Nutrition -Modified consistency diet -supplements -encourage food from home if pt desires -miralax Ppx -VTE ppx: heparin 5000 q8, SCDs -GI ppx: pepcid -PO/OT/Speech Will discuss with Dr. Sheikh -Ritu Dominguez, PGY-1 <Yann Sheikh - Last Filed: 08/01/18 10:49> Objective - Vital Signs/Intake and Output Vital Signs (last 24 hours): Temp Pulse Resp BP Pulse Ox 7.9 F L 76 20 118/70 99 08/01/18 08:00 08/01/18 08:00 08/01/18 08:00 08/01/18 08:00 08/01/18 08:00 Intake and Output: 08/01/18 08/01/18 06:59 18:59 Intake Total 200 Balance 200 - Medications Medications: Current Medications Albuterol/Ipratropium (Duoneb 3 Mg/0.5 Mg (3 Ml) Ud) 3 ml INH RBID [facility] Aspirin (Aspirin Chewable) 81 mg PO DAILY [facility] Last Admin: 07/31/18 10:30 Dose: 81 mg Cyclobenzaprine HCl (Flexeril) 10 mg PO HS [facility] Last Admin: 07/31/18 21:49 Dose: 10 mg Dextrose (Dextrose 50% Inj) 0 ml IV STAT PRN; Protocol PRN Reason: Hypoglycemia Protocol Last Admin: 06/21/18 16:15 Dose: 50 ml Dextrose (Glutose 15) 15 gm PO ONCE PRN; Protocol PRN Reason: Hypoglycemia Protocol Famotidine (Pepcid) 20 mg PO BID [facility] Last Admin: 07/31/18 17:56 Dose: 20 mg Glucagon (Glucagen Diagnostic Kit) 1 mg IM STAT PRN; Protocol PRN Reason: Hypoglycemia Protocol Guaifenesin/Dextromethorphan (Robitussin Dm) 5 ml PO Q4H PRN PRN Reason: Cough Last Admin: 08/01/18 07:49 Dose: 5 ml Heparin Sodium (Porcine) (Heparin) 5,000 units SC Q8 [facility] Last Admin: 08/01/18 05:59 Dose: 5,000 units Ibuprofen (Motrin Oral Susp) 400 mg PO Q6H PRN PRN Reason: Fever >100.4 F or mild pain Last Admin: 07/27/18 08:24 Dose: 400 mg Insulin Aspart (Novolog) 0 unit SC ACHS [facility]; Protocol Last Admin: 08/01/18 07:44 Dose: 2 units Lisinopril (Zestril) 2.5 mg PO DAILY [facility] Last Admin: 07/31/18 10:30 Dose: 2.5 mg Metformin HCl (Glucophage) 850 mg PO Q12 [facility] Last Admin: 07/31/18 22:55 Dose: Not Given Polyethylene Glycol (Miralax) 17 gm PO DAILY [facility] Last Admin: 07/31/18 10:30 Dose: 17 gm Rosuvastatin Calcium (Crestor) 5 mg PO HS [facility] Last Admin: 07/31/18 21:48 Dose: 5 mg Tramadol HCl (Ultram) 25 mg PO TID PRN PRN Reason: Pain, moderate (4-7) Vitamin A (Vitamin A & D Oint Ud Foilpak) 1 ea TOP BID PRN PRN Reason: Dry skin Last Admin: 07/20/18 17:45 Dose: 1 ea - Labs Labs: 08/01/18 07:46 08/01/18 07:44 PT 16.8 SECONDS (9.7-12.2) H 05/28/18 07:15 INR 1.5 05/28/18 07:15 APTT 34 SECONDS (21-34) 05/28/18 07:15 Attending/Attestation - Attestation I have personally seen and examined this patient.: Yes I have fully participated in the care of the patient.: Yes I have reviewed all pertinent clinical information, including history, physical exam and plan: Yes
[2018-08-01] MEDS: Albuterol-Ipratrop 3 mg / 0.5 (3 ml) UD INH SCH ×2 (07:30→19:51)
[2018-08-01] MEDS: (Novolog) Insulin Aspart, Recombinant 100 u/ml 10 ml vial SC SCH ×4 (07:44→21:46)
[2018-08-01] MEDS: guaiFENesin DM 100 mg-10 mg/5 ml UD PO PRN (07:49)
[2018-08-01 08:03] LABS: BASO % 0.9 % (0.0-2.0); EOS # 0.1 K/uL (0.0-0.7); EOS % 2.5 % (0.0-4.0); HEMOGLOBIN 9.5 g/dL (11.0-16.0); LYMPH # 2.1 K/uL (1.0-4.3); LYMPH % 36.6 % (20.0-40.0); MEAN CELL VOLUME 84.1 fL (81.0-99.0); MEAN CORPUSCULAR HEMOGLOBIN 27.3 pg (27.0-31.0); MEAN CORPUSCULAR HGB CONC 32.5 g/dL (33.0-37.0); MEAN PLATELET VOLUME 9.7 fL (7.2-11.7); MONO # 0.5 K/uL (0.0-0.8); MONO % 8.2 % (0.0-10.0); NEUT % 51.8 % (50.0-75.0); NRBC % 0.1 % (0.0-2.0); RBC 3.46 Mil/uL (3.80-5.20); RED CELL DISTRIBUTION WIDTH 16.8 % (11.5-14.5); WHITE BLOOD COUNT 5.8 K/uL (4.8-10.8)
[2018-08-01 08:20] LABS: ALBUMIN 3.4 g/dL (3.5-5.0); ALT/SGPT 25 U/L (9-52); AST/SGOT 22 U/L (14-36); BLOOD UREA NITROGEN 11 mg/dL (7-17); CALCIUM 8.7 mg/dl (8.6-10.4); GFR NON-AFRICAN AMERICAN > 60
[2018-08-01 09:07] VITALS: RESP 20
[2018-08-01] MEDS: POLYETHYLENE GLYCOL 3350 17 GM/Dose PACKET PO SCH (10:59)
[2018-08-01] MEDS: Tramadol 25 mg PO PRN (17:27)
[2018-08-02] MEDS: Albuterol-Ipratrop 3 mg / 0.5 (3 ml) UD INH SCH ×2 (07:35→18:00)
[2018-08-02] MEDS: (Novolog) Insulin Aspart, Recombinant 100 u/ml 10 ml vial SC SCH ×4 (07:59→21:33)
[2018-08-02] MEDS: POLYETHYLENE GLYCOL 3350 17 GM/Dose PACKET PO SCH (09:32)
[2018-08-02] MEDS: Tramadol 25 mg PO PRN (11:10)
--- NOTE | 2018-08-02 11:56 | CP.PCM.PN ---
<Eren Hernandez - Last Filed: 08/02/18 17:38> Subjective - Date & Time of Evaluation Date of Evaluation: 08/02/18 Time of Evaluation: 14:23 - Subjective Subjective: PGY-1 Neurology Progress Note for Dr. Vanegas Patient seen and examined at bedside. She has been progressing well with PT, OT, and speech. Patient no longer has PEG or trach. Patient is responding verbally in full sentences. Per physical therapy, patient and family have been working with wheelchair skills. Patient denies chest pain, shortness of breath, headache, dizziness, n/v/d/c. Objective - Vital Signs/Intake and Output Vital Signs (last 24 hours): Temp Pulse Resp BP Pulse Ox 97.9 F 72 20 114/71 99 08/02/18 08:18 08/02/18 08:18 08/02/18 08:18 08/02/18 08:18 08/02/18 08:18 Intake and Output: 08/02/18 08/02/18 06:59 18:59 Intake Total 700 Balance 700 - Medications Medications: Current Medications Albuterol/Ipratropium (Duoneb 3 Mg/0.5 Mg (3 Ml) Ud) 3 ml INH RBID [facility] Last Admin: 08/02/18 07:35 Dose: 3 ml Aspirin (Aspirin Chewable) 81 mg PO DAILY [facility] Last Admin: 08/02/18 09:29 Dose: 81 mg Cyclobenzaprine HCl (Flexeril) 10 mg PO HS [facility] Last Admin: 08/01/18 21:47 Dose: 10 mg Dextrose (Dextrose 50% Inj) 0 ml IV STAT PRN; Protocol PRN Reason: Hypoglycemia Protocol Last Admin: 06/21/18 16:15 Dose: 50 ml Dextrose (Glutose 15) 15 gm PO ONCE PRN; Protocol PRN Reason: Hypoglycemia Protocol Famotidine (Pepcid) 20 mg PO BID [facility] Last Admin: 08/02/18 09:29 Dose: 20 mg Glucagon (Glucagen Diagnostic Kit) 1 mg IM STAT PRN; Protocol PRN Reason: Hypoglycemia Protocol Guaifenesin/Dextromethorphan (Robitussin Dm) 5 ml PO Q4H PRN PRN Reason: Cough Last Admin: 08/01/18 07:49 Dose: 5 ml Heparin Sodium (Porcine) (Heparin) 5,000 units SC Q8 [facility] Last Admin: 08/02/18 06:03 Dose: 5,000 units Ibuprofen (Motrin Oral Susp) 400 mg PO Q6H PRN PRN Reason: Fever >100.4 F or mild pain Last Admin: 07/27/18 08:24 Dose: 400 mg Insulin Aspart (Novolog) 0 unit SC [facility]; Protocol Last Admin: 08/02/18 11:38 Dose: 2 units Lisinopril (Zestril) 2.5 mg PO DAILY [facility] Last Admin: 08/02/18 09:29 Dose: 2.5 mg Metformin HCl (Glucophage) 850 mg PO Q12 [facility] Last Admin: 08/02/18 09:29 Dose: 850 mg Polyethylene Glycol (Miralax) 17 gm PO DAILY [facility] Last Admin: 08/02/18 09:32 Dose: Not Given Rosuvastatin Calcium (Crestor) 5 mg PO HS [facility] Last Admin: 08/01/18 21:47 Dose: 5 mg Tramadol HCl (Ultram) 25 mg PO TID PRN PRN Reason: Pain, moderate (4-7) Last Admin: 08/02/18 11:10 Dose: 25 mg Vitamin A (Vitamin A & D Oint Ud Foilpak) 1 ea TOP BID PRN PRN Reason: Dry skin Last Admin: 07/20/18 17:45 Dose: 1 ea - Labs Labs: 08/01/18 07:46 08/01/18 07:44 PT 16.8 SECONDS (9.7-12.2) H 05/28/18 07:15 INR 1.5 05/28/18 07:15 APTT 34 SECONDS (21-34) 05/28/18 07:15 - Constitutional Appears: Non-toxic, No Acute Distress - Head Exam Head Exam: ATRAUMATIC, NORMOCEPHALIC - Eye Exam Eye Exam: EOMI - ENT Exam ENT Exam: Mucous Membranes Moist - Neck Exam Additional comments: Trach removed - Respiratory Exam Respiratory Exam: Clear to Ausculation Bilateral, NORMAL BREATHING PATTERN. ab sent: Rales, Rhonchi, Wheezes - Cardiovascular Exam Cardiovascular Exam: REGULAR RHYTHM, +S1, +S2 - GI/Abdominal Exam GI & Abdominal Exam: Soft, Normal Bowel Sounds. absent: Tenderness - Extremities Exam Extremities Exam: absent: Pedal Edema, Tenderness Additional comments: Flexed upper extremities - Neurological Exam Neurological Exam: Alert, Awake, CN II-XII Intact, Oriented x3 - Psychiatric Exam Psychiatric exam: Normal Affect, Normal Mood - Skin Skin Exam: Dry, Intact Assessment and Plan - Assessment and Plan (Free Text) Assessment: Anoxic brain injury -status improving; off trach, peg -ativan prn anxiety -Continue to see improvement with PT/OT/ST -crestor, ASA Respiratory failure -off trach -duonebs BID Assessment and plan discussed with Dr. Guilherme Hernandez, PGY-1 <Claudia Vanegas - Last Filed: 08/02/18 23:32> Objective - Vital Signs/Intake and Output Vital Signs (last 24 hours): Temp Pulse Resp BP Pulse Ox 97.4 F L 87 20 116/72 97 08/02/18 16:00 08/02/18 16:00 08/02/18 16:00 08/02/18 16:00 08/02/18 16:00 - Medications Medications: Current Medications Albuterol/Ipratropium (Duoneb 3 Mg/0.5 Mg (3 Ml) Ud) 3 ml INH RBID [facility] Last Admin: 08/02/18 18:00 Dose: 3 ml Aspirin (Aspirin Chewable) 81 mg PO DAILY [facility] Last Admin: 08/02/18 09:29 Dose: 81 mg Cyclobenzaprine HCl (Flexeril) 10 mg PO HS [facility] Last Admin: 08/02/18 21:29 Dose: 10 mg Dextrose (Dextrose 50% Inj) 0 ml IV STAT PRN; Protocol PRN Reason: Hypoglycemia Protocol Last Admin: 06/21/18 16:15 Dose: 50 ml Dextrose (Glutose 15) 15 gm PO ONCE PRN; Protocol PRN Reason: Hypoglycemia Protocol Famotidine (Pepcid) 20 mg PO BID [facility] Last Admin: 08/02/18 17:15 Dose: 20 mg Glucagon (Glucagen Diagnostic Kit) 1 mg IM STAT PRN; Protocol PRN Reason: Hypoglycemia Protocol Guaifenesin/Dextromethorphan (Robitussin Dm) 5 ml PO Q4H PRN PRN Reason: Cough Last Admin: 08/01/18 07:49 Dose: 5 ml Heparin Sodium (Porcine) (Heparin) 5,000 units SC Q8 [facility] Last Admin: 08/02/18 21:30 Dose: 5,000 units Ibuprofen (Motrin Oral Susp) 400 mg PO Q6H PRN PRN Reason: Fever >100.4 F or mild pain Last Admin: 07/27/18 08:24 Dose: 400 mg Insulin Aspart (Novolog) 0 unit SC A[facility]; Protocol Last Admin: 08/02/18 21:33 Dose: Not Given Lisinopril (Zestril) 2.5 mg PO DAILY [facility] Last Admin: 08/02/18 09:29 Dose: 2.5 mg Metformin HCl (Glucophage) 850 mg PO Q12 [facility] Last Admin: 08/02/18 21:29 Dose: 850 mg Polyethylene Glycol (Miralax) 17 gm PO DAILY [facility] Last Admin: 08/02/18 09:32 Dose: Not Given Rosuvastatin Calcium (Crestor) 5 mg PO HS [facility] Last Admin: 08/02/18 21:29 Dose: 5 mg Tramadol HCl (Ultram) 25 mg PO TID PRN PRN Reason: Pain, moderate (4-7) Last Admin: 08/02/18 11:10 Dose: 25 mg Vitamin A (Vitamin A & D Oint Ud Foilpak) 1 ea TOP BID PRN PRN Reason: Dry skin Last Admin: 07/20/18 17:45 Dose: 1 ea - Labs Labs: 08/01/18 07:46 08/01/18 07:44 PT 16.8 SECONDS (9.7-12.2) H 05/28/18 07:15 INR 1.5 05/28/18 07:15 APTT 34 SECONDS (21-34) 05/28/18 07:15 Assessment and Plan - Assessment and Plan (Free Text) Assessment: I examined the patient independently and formulated the assessment and plan with the resident. All medical record entries made by the Resident were at my direction and personally dictated by me. I have reviewed the chart and agree that the record accurately reflects my personal performance of the history, physical exam, medical decision making, and the department course for this patient. I have also personally directed, reviewed, and agree with the discharge instructions and disposition. 52 yr old woman s/p anoxic injury now with improved mental status. She is able to speak and follow commands, and is not in a vegetative state. Prognosis is good. Dr. Vanegas Neurology
[2018-08-02] MEDS ORDERED: Magnesium Hydroxide Susp 30 ml UD PO ONE (13:57)
--- NOTE | 2018-08-02 15:41 | RAD ---
Date of service: 08/02/2018 HISTORY: PEG tube, abd distended, COMPARISON: None available. FINDINGS: BOWEL: Normal bowel gas pattern. Mild retained stool. Peritoneal dialysis catheter noted. No hepatic or splenic enlargement. No masses or abnormal calcifications. BONES: Normal. OTHER FINDINGS: None. IMPRESSION: No active disease.
--- NOTE | 2018-08-02 20:39 | CP.PCM.PN ---
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 Pt feels she is able to participate in PT and home exercises. Pt denies any new onset abdominal pain, chest pain, SOB, F/C/N/V. Pt understands current status and is making home arrangements with son for safe d/c home. Objective - Vital Signs/Intake and Output Vital Signs (last 24 hours): Temp Pulse Resp BP Pulse Ox 97.4 F L 87 20 116/72 97 08/02/18 16:00 08/02/18 16:00 08/02/18 16:00 08/02/18 16:00 08/02/18 16:00 - Medications Medications: Current Medications Albuterol/Ipratropium (Duoneb 3 Mg/0.5 Mg (3 Ml) Ud) 3 ml INH RBID [facility] Last Admin: 08/02/18 18:00 Dose: 3 ml Aspirin (Aspirin Chewable) 81 mg PO DAILY [facility] Last Admin: 08/02/18 09:29 Dose: 81 mg Cyclobenzaprine HCl (Flexeril) 10 mg PO HS [facility] Last Admin: 08/01/18 21:47 Dose: 10 mg Dextrose (Dextrose 50% Inj) 0 ml IV STAT PRN; Protocol PRN Reason: Hypoglycemia Protocol Last Admin: 06/21/18 16:15 Dose: 50 ml Dextrose (Glutose 15) 15 gm PO ONCE PRN; Protocol PRN Reason: Hypoglycemia Protocol Famotidine (Pepcid) 20 mg PO BID [facility] Last Admin: 08/02/18 17:15 Dose: 20 mg Glucagon (Glucagen Diagnostic Kit) 1 mg IM STAT PRN; Protocol PRN Reason: Hypoglycemia Protocol Guaifenesin/Dextromethorphan (Robitussin Dm) 5 ml PO Q4H PRN PRN Reason: Cough Last Admin: 08/01/18 07:49 Dose: 5 ml Heparin Sodium (Porcine) (Heparin) 5,000 units SC Q8 [facility] Last Admin: 08/02/18 13:16 Dose: 5,000 units Ibuprofen (Motrin Oral Susp) 400 mg PO Q6H PRN PRN Reason: Fever >100.4 F or mild pain Last Admin: 07/27/18 08:24 Dose: 400 mg Insulin Aspart (Novolog) 0 unit SC ACHS [facility]; Protocol Last Admin: 08/02/18 17:14 Dose: 2 units Lisinopril (Zestril) 2.5 mg PO DAILY [facility] Last Admin: 08/02/18 09:29 Dose: 2.5 mg Metformin HCl (Glucophage) 850 mg PO Q12 [facility] Last Admin: 08/02/18 09:29 Dose: 850 mg Polyethylene Glycol (Miralax) 17 gm PO DAILY [facility] Last Admin: 08/02/18 09:32 Dose: Not Given Rosuvastatin Calcium (Crestor) 5 mg PO HS [facility] Last Admin: 08/01/18 21:47 Dose: 5 mg Tramadol HCl (Ultram) 25 mg PO TID PRN PRN Reason: Pain, moderate (4-7) Last Admin: 08/02/18 11:10 Dose: 25 mg Vitamin A (Vitamin A & D Oint Ud Foilpak) 1 ea TOP BID PRN PRN Reason: Dry skin Last Admin: 07/20/18 17:45 Dose: 1 ea - Labs Labs: 08/01/18 07:46 08/01/18 07:44 PT 16.8 SECONDS (9.7-12.2) H 05/28/18 07:15 INR 1.5 05/28/18 07:15 APTT 34 SECONDS (21-34) 05/28/18 07:15 - Additional Findings Additional findings: - Constitutional Appears: Non-toxic, No Acute Distress, Chronically Ill - Head Exam Head Exam: ATRAUMATIC, NORMAL INSPECTION, NORMOCEPHALIC - Eye Exam Eye Exam: EOMI, Normal appearance - ENT Exam ENT Exam: Mucous Membranes Moist, Normal Exam - Neck Exam Neck Exam: Normal Inspection - Respiratory Exam Respiratory Exam: Clear to Ausculation Bilateral, NORMAL BREATHING PATTERN - Cardiovascular Exam Cardiovascular Exam: REGULAR RHYTHM. absent: Tachycardia - GI/Abdominal Exam GI & Abdominal Exam: Soft, Normal Bowel Sounds. absent: Distended Additional comments: Peg tube clamped in place, bandage clean/dry/intact removed @ 6pm; clean, minor bloody leak; covered with dena and adhesive - Extremities Exam Extremities Exam: Calf Tenderness. absent: Pedal Edema Additional comments: muscle wasting - Neurological Exam Neurological Exam: Alert, Awake -upper and lower extremity contractractures noted, rigidity w/o spasticity - Psychiatric Exam Psychiatric exam: Normal Affect, Normal Mood - Skin Skin Exam: Dry, Intact, Normal Color, Warm Assessment and Plan - Assessment and Plan (Free Text) Assessment: 52 year old female admitted for evaluation and treatment of anoxic brain injury Plan: Anoxic brain injury -status improving; off trach, peg -ativan prn anxiety -PT/OT/ST -crestor, ASA -Neurology consulted, Dr. Duff/Guilherme -Psychiatry consulted, Respiratory failure -off trach -duonebs BID HTN -lisinopril 2.5mg qd DM -ISS ACHS -metformin increased from 500 to 850mg BID -accuchecks ACHS -hypoglycemia protocol Nutrition -HH diet -supplements -encourage food from home if pt desires -PEG tube removed 08/02 @ 6pm -miralax with lactulose once Ppx -VTE ppx: heparin 5000 q8, SCDs -GI ppx: pepcid -PO/OT/Speech DISPO: d/c home tmrw if PEG wound appears well shani and food well tolerated <Emmett Negrete - Last Filed: 08/04/18 18:16> Objective - Vital Signs/Intake and Output Vital Signs (last 24 hours): Temp Pulse Resp BP Pulse Ox 97.2 F L 81 20 109/71 98 08/03/18 15:00 08/03/18 15:00 08/03/18 15:00 08/03/18 15:00 08/03/18 15:00 - Labs Labs: 08/03/18 08:13 08/03/18 08:13 PT 16.8 SECONDS (9.7-12.2) H 05/28/18 07:15 INR 1.5 05/28/18 07:15 APTT 34 SECONDS (21-34) 05/28/18 07:15 Attending/Attestation - Attestation I have personally seen and examined this patient.: Yes I have fully participated in the care of the patient.: Yes I have reviewed all pertinent clinical information, including history, physical exam and plan: Yes Notes (Text): Patient is sitting without support.Explained to the patient and her sister about doing exercise to improve and prevent contraction. Family is very motivated They are planning to take her. Spoke to Yamileth who explained about doing exercise at home after discharge possible d/c tomorrow I agree with the resident's documentation
[2018-08-03] MEDS: Albuterol-Ipratrop 3 mg / 0.5 (3 ml) UD INH SCH (07:35)
[2018-08-03] MEDS: (Novolog) Insulin Aspart, Recombinant 100 u/ml 10 ml vial SC SCH ×3 (07:38→17:38)
[2018-08-03 08:19] LABS: BASO # 0.1 K/uL (0.0-0.2); BASO % 0.8 % (0.0-2.0); EOS # 0.3 K/uL (0.0-0.7); EOS % 3.9 % (0.0-4.0); HEMOGLOBIN 9.7 g/dL (11.0-16.0); LYMPH # 2.1 K/uL (1.0-4.3); MEAN PLATELET VOLUME 9.9 fL (7.2-11.7); MONO # 0.6 K/uL (0.0-0.8); MONO % 8.7 % (0.0-10.0); NEUT # 3.8 K/uL (1.8-7.0); NEUT % 55.6 % (50.0-75.0); RBC 3.47 Mil/uL (3.80-5.20); RED CELL DISTRIBUTION WIDTH 16.8 % (11.5-14.5); WHITE BLOOD COUNT 6.8 K/uL (4.8-10.8)
[2018-08-03 08:55] LABS: ALB/GLOB RATIO 1.1 (1.0-2.1); ALBUMIN 3.4 g/dL (3.5-5.0); ALT/SGPT 21 U/L (9-52); AST/SGOT 26 U/L (14-36); BLOOD UREA NITROGEN 10 mg/dL (7-17); CALCIUM 8.9 mg/dl (8.6-10.4); GFR NON-AFRICAN AMERICAN > 60
[2018-08-03] MEDS: POLYETHYLENE GLYCOL 3350 17 GM/Dose PACKET PO SCH (09:35)
--- NOTE | 2018-08-03 16:05 | CP.PCM.DIS ---
Provider - Provider Date of Admission: 05/01/18 23:30 Attending physician: Yann Sheikh DO Consults: 07/30/18 14:30 Psychiatry Consult Routine Comment: Consulting Provider: Peter Robles Consulting Physician: Peter Robles Reason for Consult: eval for possible suicidal attempt 05/01/18 22:11 Stroke Team Consult Stat Comment: Consulting Provider: Neurohospitalist Consulting Physician: NEUROHOSP Neurohospitalist for Consult: Buck Duff Neurohospitalist for Consult: Claudia Vanegas Reason for Consult: code stroke 05/01/18 22:12 Stroke Team Consult Stat Comment: unresponsive Consulting Provider: Neurohospitalist Consulting Physician: NEUROHOSP Neurohospitalist for Consult: Buck Duff Neurohospitalist for Consult: Bryan Vanegasutami Reason for Consult: unresponsive 05/01/18 23:34 Cardiology Consult Stat Comment: abn ekg, pt unresponsive Consulting Provider: Juancarlos Gay Consulting Physician: Juancarlos Gay Reason for Consult: abn ekg, pt unresponsive 05/02/18 07:19 Nephrology Consult Routine Comment: Consulting Provider: Adrian Samuels Consulting Physician: Adrian Samuels Reason for Consult: severe metabolic acidosis, r/o toxin/methanol/cyanide 05/02/18 08:21 Social Work Referral Routine Comment: purplish linear digna around the neck stuart R side Physician Instructions: Reason For Exam: unresponsive,intubated,purplish monge upper arms 05/02/18 09:40 Nursing Referral for Wound Care Routine Comment: Physician Instructions: Reason For Exam: purplish discolorations around neck&upper arms 05/02/18 17:51 Physician Consult Routine Comment: Consulting Provider: Tony Mcgill Consulting Physician: Tony Mcgill Reason for Consult: R/o Sepsis 05/02/18 19:40 Palliative Care Consult Routine Comment: Consulting Provider: Yesenia Rankin Physician Instructions: Reason For Exam: anoxic form asphyxia, suspected sucide 05/07/18 08:17 Physician Consult Routine Comment: Consulting Provider: Josh Adams Jr. Consulting Physician: Josh Adams Jr. Reason for Consult: Tracheostomy and PEG 05/17/18 21:22 Pulmonology Consult Routine Comment: Consulting Provider: Mookie Brennan Consulting Physician: Mookie Brennan Reason for Consult: s/p trach on prvc. weaning 06/03/18 11:49 Pastoral Care Referral Routine Comment: Physician Instructions: Reason For Exam: patient very sick 06/08/18 13:18 Wound Care [Nursing Referral for Wound Care] Routine Comment: Physician Instructions: Reason For Exam: left wrist ulcer w/ eschar 06/09/18 16:19 General Surgery Consult Routine Comment: Consulting Provider: Peng James Consulting Physician: Peng James Reason for Consult: ulcer, eschar on left wrist, presistent for > 1 month 06/10/18 17:13 Neurology Consult Routine Comment: Consulting Provider: Claudia Vanegas Consulting Physician: Claudia Vanegas Reason for Consult: please re-eval, change in mental status 06/17/18 14:31 ENT [Otolaryngology Consult] Routine Consulting Provider: Rajeev Lobo Consulting Physician: Rajeev Lobo Reason for Consult: please eval for vocal cord dysfunction Time Spent in preparation of Discharge (in minutes): 45 Diagnosis - Discharge Diagnosis (1) Anoxic brain injury Status: Chronic (2) Flexion contractures Status: Chronic (3) Hyperglycemia Status: Resolved (4) Respiratory failure Status: Resolved (5) Dysphagia Status: Resolved Hospital Course - Lab Results Lab Results: Micro Results 07/19/18 17:30 Blood-Venous Blood Culture - Final NO GROWTH AFTER 5 DAYS 07/19/18 17:30 Blood-Venous Gram Stain - Final TEST NOT PERFORMED 07/19/18 17:00 Blood-Venous Blood Culture - Final NO GROWTH AFTER 5 DAYS 07/19/18 17:00 Blood-Venous Gram Stain - Final TEST NOT PERFORMED 07/20/18 08:31 Urine,Clean Catch Urine Culture - Final No Growth (<1,000 CFU/ML) 07/14/18 06:42 Urine,Alvarado Urine Culture - Final Escherichia Coli Enterococcus Faecalis 05/25/18 00:16 Sputum Gram Stain - Final 05/25/18 00:16 Sputum Sputum Culture - Final Yeast Species 05/21/18 10:30 Blood-Venous Blood Culture - Final NO GROWTH AFTER 5 DAYS 05/21/18 10:30 Blood-Venous Gram Stain - Final TEST NOT PERFORMED 05/21/18 11:00 Blood-Venous Blood Culture - Final NO GROWTH AFTER 5 DAYS 05/21/18 11:00 Blood-Venous Gram Stain - Final TEST NOT PERFORMED 05/17/18 06:46 Blood-Thru Central Line Blood Culture - Final NO GROWTH AFTER 5 DAYS 05/17/18 06:46 Blood-Thru Central Line Gram Stain - Final TEST NOT PERFORMED 05/17/18 06:46 Blood-Thru Central Line Blood Culture - Final NO GROWTH AFTER 5 DAYS 05/17/18 06:46 Blood-Thru Central Line Gram Stain - Final TEST NOT PERFORMED 05/17/18 06:46 Urine,Alvarado Urine Culture - Final Yeast Species 05/13/18 13:41 Blood-Venous Blood Culture - Final NO GROWTH AFTER 5 DAYS 05/13/18 13:41 Blood-Venous Gram Stain - Final TEST NOT PERFORMED 05/13/18 11:47 Blood-Venous Blood Culture - Final NO GROWTH AFTER 5 DAYS 05/13/18 11:47 Blood-Venous Gram Stain - Final TEST NOT PERFORMED 05/16/18 14:48 Naris MRSA Culture - Final MRSA NOT DETECTED 05/13/18 11:47 Trachasp Gram Stain - Final 05/13/18 11:47 Trachasp Sputum Culture - Final UNABLE TO PROCESS THE SPECIMEN BECAUSE THE GRAM STAIN INDICATED OROPHARYNGEAL CONTAMINATION. PLEASE RESUBMIT ANOTHER SPECIMEN. 05/13/18 Unknown Urine,Alvarado Urine Culture - Final Yeast Species 05/08/18 18:39 Trachasp Gram Stain - Final 05/08/18 18:39 Trachasp Sputum Culture - Final Yeast Species 05/06/18 21:34 Urine,Catheterized Urine Culture - Final No Growth (<1,000 CFU/ML) 05/02/18 01:08 Blood-Venous Blood Culture - Final NO GROWTH AFTER 5 DAYS 05/02/18 01:08 Blood-Venous Gram Stain - Final TEST NOT PERFORMED 05/02/18 01:07 Blood-Venous Blood Culture - Final NO GROWTH AFTER 5 DAYS 05/02/18 01:07 Blood-Venous Gram Stain - Final TEST NOT PERFORMED 05/02/18 04:55 Sputum Gram Stain - Final 05/02/18 04:55 Sputum Sputum Culture - Final NORMAL ORAL ALEXI 05/02/18 08:15 Naris MRSA Culture (Admit) - Final MRSA NOT DETECTED 05/02/18 00:59 Urine,Catheterized Urine Culture - Final No Growth (<1,000 CFU/ML) Most Recent Lab Values WBC 6.8 K/uL (4.8-10.8) 08/03/18 08:13 RBC 3.47 Mil/uL (3.80-5.20) L 08/03/18 08:13 Hgb 9.7 g/dL (11.0-16.0) L 08/03/18 08:13 Hct 29.5 % (34.0-47.0) L 08/03/18 08:13 MCV 85.0 fL (81.0-99.0) 08/03/18 08:13 MCH 28.0 pg (27.0-31.0) 08/03/18 08:13 MCHC 33.0 g/dL (33.0-37.0) 08/03/18 08:13 RDW 16.8 % (11.5-14.5) H 08/03/18 08:13 Plt Count 412 K/uL (130-400) H 08/03/18 08:13 MPV 9.9 fL (7.2-11.7) 08/03/18 08:13 Neut % (Auto) 55.6 % (50.0-75.0) 08/03/18 08:13 Lymph % (Auto) 31.0 % (20.0-40.0) 08/03/18 08:13 [place] % (Auto) 8.7 % (0.0-10.0) 08/03/18 08:13 Eos % (Auto) 3.9 % (0.0-4.0) 08/03/18 08:13 Baso % (Auto) 0.8 % (0.0-2.0) 08/03/18 08:13 Neut # (Auto) 3.8 K/uL (1.8-7.0) 08/03/18 08:13 Lymph # (Auto) 2.1 K/uL (1.0-4.3) 08/03/18 08:13 [place] # (Auto) 0.6 K/uL (0.0-0.8) 08/03/18 08:13 Eos # (Auto) 0.3 K/uL (0.0-0.7) 08/03/18 08:13 Baso # (Auto) 0.1 K/uL (0.0-0.2) 08/03/18 08:13 Neutrophils % (Manual) 13 % (50-75) L 07/24/18 06:26 Band Neutrophils % 1 % (0-2) 07/24/18 06:26 Lymphocytes % (Manual) 74 % (20-40) H 07/24/18 06:26 Reactive Lymphs % 7 % (0-0) H 07/24/18 06:26 Monocytes % (Manual) 5 % (0-10) 07/24/18 06:26 Eosinophils % (Manual) 1 % (0-4) 05/11/18 05:05 Basophils % (Manual) 1 % (0-2) 07/10/18 08:55 Metamyelocytes % 2 % (0-0) H 05/02/18 13:23 Nucleated RBC % 1 % (0-0) H 05/04/18 06:28 Differential Comment 06/06/18 07:06 Toxic Granulation Present 05/05/18 05:50 Platelet Estimate Normal (NORMAL) 07/24/18 06:26 Large Platelets Present 07/10/18 08:55 Polychromasia Slight 07/24/18 06:26 Hypochromasia (manual) Slight 07/24/18 06:26 Poikilocytosis (manual Slight 07/24/18 06:26 Anisocytosis (manual) Slight 07/24/18 06:26 Microcytosis (manual) Slight 07/24/18 06:26 Macrocytosis (manual) Slight 07/24/18 06:26 Target Cells Slight 07/24/18 06:26 Tear Drop Cells Slight 07/24/18 06:26 Ovalocytes Slight 07/24/18 06:26 Schistocytes Slight 07/24/18 06:26 PT 16.8 SECONDS (9.7-12.2) H 05/28/18 07:15 INR 1.5 05/28/18 07:15 APTT 34 SECONDS (21-34) 05/28/18 07:15 Puncture Site Rr 06/10/18 12:05 pCO2 30 mm/Hg (35-45) L 06/10/18 12:05 pO2 172 mm/Hg (80-100) H 06/10/18 12:05 HCO3 26.4 mmol/L (21-28) 06/10/18 12:05 ABG pH 7.52 (7.35-7.45) H 06/10/18 12:05 ABG Total CO2 25.4 mmol/L (22-28) 06/10/18 12:05 ABG O2 Saturation 100.0 % (95-98) H 06/10/18 12:05 ABG Base Excess 1.9 mmol/L (-2.0-3.0) 06/10/18 12:05 ABG Hemoglobin 8.8 g/dL (11.7-17.4) L 06/10/18 12:05 ABG Carboxyhemoglobin 2.1 % (0.5-1.5) H 06/10/18 12:05 POC ABG HHb (Measured) 0.0 % (0.0-5.0) 06/10/18 12:05 ABG Methemoglobin 1.4 % (0.0-3.0) 06/10/18 12:05 Erik Test Pos 06/10/18 12:05 ABG Potassium 3.6 mmol/L (3.6-5.2) 05/09/18 06:10 A-a O2 Difference 76.0 mm/Hg 06/10/18 12:05 Respiratory Index 0.4 06/10/18 12:05 Hgb O2 Saturation 96.6 % (95.0-98.0) 06/10/18 12:05 Sodium 145.0 mmol/l (132-148) 05/09/18 06:10 Chloride 120.0 mmol/L (98-107) H 05/09/18 06:10 Glucose 271 mg/dl (65-105) H 05/09/18 06:10 Lactate 0.9 mmol/L (0.7-2.1) 05/09/18 06:10 Liter Flow 12.0 06/10/18 12:05 Vent Mode Cpap 06/09/18 14:00 Mechanical Rate 15 05/25/18 22:47 Spontaneous Rate Cancelled 05/07/18 05:39 FiO2 40.0 % 06/10/18 12:05 Tidal Volume 500 05/25/18 22:47 PEEP 5 06/09/18 14:00 Pressure Support 12 06/09/18 14:00 CPAP Cancelled 05/07/18 05:39 Inspiratory BiPAP Cancelled 05/07/18 05:39 Expiratory BiPAP Cancelled 05/07/18 05:39 Blood Gas Comments Cancelled 05/07/18 05:39 Crit Value Called To Dr rasheed 05/03/18 14:51 Crit Value Called By Stew silverio crt 05/03/18 14:51 Crit Value Read Back Y 05/03/18 14:51 Blood Gas Notified Time 1454 05/03/18 14:51 Sodium 134 mmol/L (132-148) 08/03/18 08:13 Potassium 4.7 mmol/L (3.6-5.2) 08/03/18 08:13 Chloride 101 mmol/L (98-107) 08/03/18 08:13 Carbon Dioxide 25 mmol/L (22-30) 08/03/18 08:13 Anion Gap 12 (10-20) 08/03/18 08:13 BUN 10 mg/dL (7-17) 08/03/18 08:13 Creatinine 0.6 mg/dL (0.7-1.2) L 08/03/18 08:13 Est GFR ( Amer) > 60 08/03/18 08:13 Est GFR (Non-Af Amer) > 60 08/03/18 08:13 POC Glucose (mg/dL) 203 mg/dL (65-110) H 08/03/18 11:11 Random Glucose 148 mg/dL (65-105) H 08/03/18 08:13 Hemoglobin A1c 10.2 % (4.2-6.5) H 05/08/18 07:30 Serum Osmolality 315 mosm/kg (272-300) H 05/06/18 09:15 Calcium 8.9 mg/dl (8.6-10.4) 08/03/18 08:13 Phosphorus 2.9 mg/dL (2.5-4.5) 08/03/18 08:13 Magnesium 1.6 mg/dL (1.6-2.3) 08/03/18 08:13 Iron 23 ug/dL (37-170) L 06/08/18 14:16 TIBC 191 ug/dL (250-450) L 06/08/18 14:16 % Saturation 12 (20-55) L 06/08/18 14:16 Ferritin 216.0 ng/mL 06/08/18 14:16 Total Bilirubin 0.3 mg/dL (0.2-1.3) 08/03/18 08:13 AST 26 U/L (14-36) 08/03/18 08:13 ALT 21 U/L (9-52) 08/03/18 08:13 Alkaline Phosphatase 84 U/L (38-126) 08/03/18 08:13 Ammonia 29 umol/L (9-33) 05/02/18 02:48 Total Creatine Kinase < 20 U/L (30-135) L 07/11/18 05:54 CK-MB (Mass) < 0.22 ng/mL (0.0-3.38) 07/11/18 05:54 Troponin I < 0.0120 ng/mL (0.00-0.120) 07/11/18 05:54 NT-Pro-B Natriuret Pep 35.9 pg/mL (0-900) 05/02/18 02:48 Total Protein 6.6 g/dL (6.3-8.3) 08/03/18 08:13 Albumin 3.4 g/dL (3.5-5.0) L 08/03/18 08:13 Globulin 3.2 gm/dL (2.2-3.9) 08/03/18 08:13 Albumin/Globulin Ratio 1.1 (1.0-2.1) 08/03/18 08:13 Triglycerides 265 mg/dL (0-149) H D 07/24/18 06:26 Cholesterol 72 mg/dL (0-199) 07/24/18 06:26 LDL Cholesterol Direct 44 mg/dL (0-129) 07/24/18 06:26 HDL Cholesterol 12 mg/dL (30-70) L 07/24/18 06:26 Lipase 131 U/L (23-300) 05/02/18 06:10 Procalcitonin 30.81 NG/ML (0.19-0.49) H 05/02/18 13:23 TSH 3rd Generation 1.86 mIU/L (0.46-4.68) 05/01/18 22:16 Arterial Blood Potassium 3.6 mmol/L (3.6-5.2) 05/09/18 06:10 Urine Color Yellow (YELLOW) 07/20/18 08:31 Urine Clarity Clear (Clear) 07/20/18 08:31 Urine pH 5.0 (5.0-8.0) 07/20/18 08:31 Ur Specific Hammond 1.016 (1.003-1.030) 07/20/18 08:31 Urine Protein 1+ mg/dL (NEGATIVE) H 07/20/18 08:31 Urine Glucose (UA) Normal mg/dL (Normal) 07/20/18 08:31 Urine Ketones Negative mg/dL (NEGATIVE) 07/20/18 08:31 Urine Blood Negative (NEGATIVE) 07/20/18 08:31 Urine Nitrate Negative (NEGATIVE) 07/20/18 08:31 Urine Bilirubin Negative (NEGATIVE) 07/20/18 08:31 Urine Urobilinogen Normal mg/dL (0.2-1.0) 07/20/18 08:31 Ur Leukocyte Esterase Neg Devin/uL (Negative) 07/20/18 08:31 Urine WBC (Auto) 6 /hpf (0-5) H 07/20/18 08:31 Urine RBC (Auto) 2 /hpf (0-3) 07/20/18 08:31 Urine WBC Clumps (Auto) Mod /hpf (NONE) H 07/14/18 06:42 Ur Squamous Epith Cells 2 /hpf (0-5) 07/20/18 08:31 Urine Bacteria Rare (<OCC) 07/20/18 08:31 Hyaline Casts 3-5 /lpf (0-2) H 07/20/18 08:31 Urine Yeast (Budding) Few /hpf (NEGATIVE) H 07/14/18 06:42 Urine Osmolality 492 mosm/kg (300-1000) 05/06/18 09:15 Urine HCG, Qual Negative (NEGATIVE) 05/11/18 10:45 Vancomycin Trough 13.0 ug/mL (5.0-10.0) H 05/08/18 20:09 Salicylates < 1.0 mg/dL 1 05/01/18 23:39 Urine Opiates Screen Negative (NEGATIVE) 05/01/18 23:04 Oxycodone Screen negative 05/02/18 04:48 Ur Oxycodone Comment See note 05/02/18 04:48 Urine Methadone Screen Negative (NEGATIVE) 05/01/18 23:04 Acetaminophen < 10.0 ug/mL (10.0-30.0) L 05/02/18 19:08 Ur Barbiturates Screen Negative (NEGATIVE) 05/01/18 23:04 Ur Phencyclidine Scrn Negative (NEGATIVE) 05/01/18 23:04 Ur Amphetamines Screen Negative (NEGATIVE) 05/01/18 23:04 U Benzodiazepines Scrn Positive (NEGATIVE) 05/01/18 23:04 U Oth Cocaine Metabols Negative (NEGATIVE) 05/01/18 23:04 U Cannabinoids Screen Negative (NEGATIVE) 05/01/18 23:04 Alcohol, Quantitative < 10 mg/dl (0-10) 05/02/18 06:10 B-Hydroxybutyrate 0.26 mM (0.02-0.27) 05/02/18 06:10 RPR Nonreactive (NONREACTIVE) 05/11/18 13:41 Hepatitis A IgM Ab Negative (NEGATIVE) 05/11/18 13:41 Hep Bs Antigen Negative (NEGATIVE) 05/11/18 13:41 Hep Bs Antibody Negative (NEGATIVE) 05/11/18 13:41 Hep B Core IgM Ab Negative (NEGATIVE) 05/11/18 13:41 Hepatitis C Antibody Negative (NEGATIVE) 05/11/18 13:41 HIV 1&2 Ag/Ab, 4th Gen Nonreactive (Nonreactive) 05/11/18 13:57 HIV 1&2 Antibody Screen Negative (NEGATIVE) 05/02/18 13:23 Blood Parasites Smear Negative (NEGATIVE) 05/02/18 19:08 Tetanus Toxoid IgG Ab 0.39 IU/mL 05/07/18 06:14 Blood Type A NEGATIVE 05/11/18 05:05 Antibody Screen Positive 05/11/18 05:05 Antibody Identification Anti D 05/11/18 05:05 - Hospital Course Hospital Course: HPI Patient is a 52 year old female with no known PMHx who was brought to the emergency room by EMS after being found unresponsive by her this evening. Patient [place] [facility] [place] and was visiting her who lives here in the . Per patient's , patient had been complaining of headaches for the past two days which had been getting worse, as well as some nausea. This evening, patient was at a [employer] with her and had had a few beers to drink. Patient was not feeling well and went to the bathroom where she was then found unresponsive on the ground by her . EMS was called and patient was intubated in the field and brought to [facility]. Initially patient was found to be hypertensive. Code stroke was initated in the emergency room. Patient has no known history of hypertension, diabetes, or cardiovascular disease. ROS unable to be obtained as patient sedated and intubated. Surgical hx: No known surgeries Medical hx: No known prior medical history Allergies: NKDA Social: EtOH use Family Hx: No known family hx Medications: No home meds HOSPITAL COURSE: Patient is a 52 year old female visiting from with probable past medical history of T2DM who was found unresponsive by on 05/01 (reportedly). EMS was called and patient was resuscitated and subsequently intubated on the field and brought to the ED. Code stroke was called, patient was subsequently admitted to ICU for close monitoring and evaluation for anoxic brain injury. Patient was noted on physical exam to have ring/ligature monge suggestive of suicidal attempt by hanging. [employer] involved and state high likelihood of suicidal attempt. Patient was treated for sepsis. Patient is s/p tracheostomy and PEG. Downgraded to telemetry. In June, able to be weaned of ventilator to trach collar w/ humidified oxygen and then finally off trach collar and O2 and now breathing independently. Patient now speaks full sentences, yet many words are jumbled and hard to understand. She follows commands well. She needs extensive physical therapy as she is still bed bound. Barium swallow indicated no abnormalities so PEG feeds stopped. Patient doing well on regular (bite-sized) diet. Will transition patient to oral medications. New onset UTI- course of cipro. However, sample was via Alvarado and repeat UA, Cx were clean. Temperature of 101.3 on 07/19- afebrile since. Blood Cx no growth. Patient was asked about possible suicide attempt leading to hospitalization. Patient becomes tearful each time asked. Patient denies suicidal ideation at this time. Consulted psychiatry- waiting for recs. Patient is working with PT and OT daily and showing improvement. Discussed discharge planning with family. Patient is medically stable for discharge. Case management and SW working on discharge planning. Patient will follow-up at the [facility]. She will need outpatient therapy services and home equipment, including wheelchair. Son has apartment and will take patient there Anoxic brain injury -status improving; off trach, peg -ativan prn anxiety -PT/OT/ST -crestor, ASA -Neurology consulted, Dr. Duff/Guilherme -Psychiatry consulted, Respiratory failure -off trach -duonebs BID HTN -lisinopril 2.5mg qd DM -ISS ACHS -metformin increased from 500 to 850mg BID -accuchecks ACHS -hypoglycemia protocol Nutrition -HH diet -supplements -encourage food from home if pt desires -PEG tube removed 08/02 @ 6pm -miralax with lactulose once Transaminitis, resolved - Likely shock liver earlier in hospitalization - Discontinued Tylenol - Restarted Crestor 07/28 - Follow LFTs Cough, resolved - CXR 07/19: no active disease - Robitussin DM 5 mL Q4H PRN Fevers, resolved - Most recent 101.3 on 07/19, prior to that afebrile since 06/04 - CXR 07/19: no active disease - UA 07/20: nitrate neg, LE neg, WBC 6, lanny rare - UCx: no growth - Blood Cx 07/19: no growth - Ice packs, cooling blanket PRN - Motrin 400 mg Q6H PRN - PICC removed 07/22 - Off antibiotics - ID consulted (Nano) Urinary tract infection, resolved - Alvarado discontinued 07/14 - UA (Alvarado): LE 3+, nitrate neg, WBC 58, mod lanny - UCx (Alvarado): E. coli, Enterococcus faecalis - UA 07/20: nitrate neg, LE neg, WBC 6, lanny rare - UCx: no growth - Completed course of Cipro in July - Off antibiotics - ID consulted (Nano) Vomiting, resolved - Most recent emesis 07/17 - PEG feeds stopped- on PO diet - Discontinued PEG use completely on 07/22 - Aspiration precautions - AXR (07/01): no significant abnormalities, PEG in place - CT A/P (06/06): no obstruction - Pepcid 20 mg PO BID - GI consulted (Yobani) Ppx -VTE ppx: heparin 5000 q8, SCDs -GI ppx: pepcid -PO/OT/Speech PLAN Pt is to be discharged home with the following medications Lisinopril 2.5 QD Metformin 500mg BID Crestor 5mg HS Pt is to follow up with Dr Stanislav Vanegas within one week Pt is to follow up with Dr Clark within one week 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 Anoxic 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 Injury related rehabilitation Please go to [facility] for services Discharge Exam - Head Exam Head Exam: ATRAUMATIC, NORMOCEPHALIC - Additional Findings Additional findings: - Constitutional Appears: Non-toxic, No Acute Distress, Chronically Ill - Head Exam Head Exam: ATRAUMATIC, NORMAL INSPECTION, NORMOCEPHALIC - Eye Exam Eye Exam: EOMI, Normal appearance - ENT Exam ENT Exam: Mucous Membranes Moist, Normal Exam - Neck Exam Neck Exam: Normal Inspection - Respiratory Exam Respiratory Exam: Clear to Ausculation Bilateral, NORMAL BREATHING PATTERN - Cardiovascular Exam Cardiovascular Exam: REGULAR RHYTHM. absent: Tachycardia - GI/Abdominal Exam GI & Abdominal Exam: Soft, Normal Bowel Sounds. absent: Distended Additional comments: Peg tube clamped in place, bandage clean/dry/intact removed @ 6pm; clean, minor bloody leak; covered with dena and adhesive - Extremities Exam Extremities Exam: Calf Tenderness. absent: Pedal Edema Additional comments: muscle wasting - Neurological Exam Neurological Exam: Alert, Awake -upper and lower extremity contractractures noted, rigidity w/o spasticity - Psychiatric Exam Psychiatric exam: Normal Affect, Normal Mood - Skin Skin Exam: Dry, Intact, Normal Color, Warm Discharge Plan - Discharge Medications Prescriptions: Lisinopril [Zestril] 2.5 mg PO DAILY #30 tab metFORMIN [glucOPHAGE] 500 mg PO BID #60 tab Rosuvastatin Calcium [Crestor] 5 mg PO HS #30 tab - Follow Up Plan Condition: CRITICAL Disposition: HOME/ ROUTINE Instructions: Anoxic Brain Damage (DC) Additional Instructions: Pt is to be discharged home with the following medications Lisinopril 2.5 QD Metformin 500mg BID Crestor 5mg HS Pt is to follow up with Dr Stanislav Vanegas within one week Pt is to follow up with Dr Lee within one week 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
[2018-08-03 16:29] VITALS: BP 109/71; PULSE 81; TEMP 97.2; O2SAT 98
[2018-08-03] MEDS ORDERED: Influenza Vaccine 60 mcg/0.5 mL SYR (4YR UP) IM ONE (19:07)
[2018-08-03] MEDS ORDERED: Pneumococcal 23-Valent Vaccine IM ONE (19:07)
--- NOTE | 2018-08-04 02:11 | PCM.PSYCH ---
Initial Psychiatric Evaluation - Initial Psychiatric Evaluation Type of Admission: Voluntary Legal Status: Capacity Chief Complaint (in patient's own words): I am feeling okay History of Present Illness and Precipitating Events: Patient is a 52 year old female that presented to the [facility] ED on 05/01 after being found unconscious by her in their home and admitted for AMS. On physical exam patient was noted to have ring/ligature monge, suggestive of suicide by strangulation, around her neck by the ER staff. The patient was consulted by psychiatry. Patient denies any history of psychiatric illnesses or hospitalizations. On examination patient was pleasant and alert. questioning revealed that patient was feeling well and that her PT and OT was progressing well. Patient began to get very nervous and tremulous when asked about the incident that led to her hospitalization and whether she was experiencing any suicidal ideations, which she denied vehemently. As per the collateral, son denies any history of depress ion or any suicidal thoughts in the past. Patient appears depressed but she denies any feelings of hopelessness or helplessness. She denies any suicidal ideation or any homicidal ideation. She denies any auditory hallucinations or any paranoia. She denies any drinking or any substance abuse. Past Psychiatric History - Past Psychiatric History Previous Treatment History: None Pertinent Medical Hx (Current Medical&Sleep Prob, Allergies): Allergies Allergy/AdvReac Type Severity Reaction Status Date / Time No Known Allergies Allergy Verified 05/05/18 11:51 Cyclobenzaprine [Flexeril] 10 mg PO HS #30 tab 08/03/18 Lisinopril [Zestril] 2.5 mg PO DAILY #30 tab 08/03/18 Rosuvastatin Calcium [Crestor] 5 mg PO HS #30 tab 08/03/18 metFORMIN [glucOPHAGE] 500 mg PO BID #60 tab 08/03/18 Review of Systems - Review of Systems All systems: reviewed and no additional remarkable complaints except - Psychiatric Psychiatric: Anxiety, Irritability. absent: Suicidal Ideation Mental Status Examination - Personal Presentation Personal Presentation: Looks stated age - Affect Affect: Constricted - Motor Activity Motor Activity: Calm - Reliability in Providing Information Reliability in Providing Information: Fair - Speech Speech: Organized - Mood Mood: Anxious - Formal Thought Process Formal Thought Process: No Impairment - Obsessions/Compulsions Obsessions: No Compulsions: No - Cognitive Functions Orientation: Person, Place, Situation, Time Sensorium: Alert Attention/Concentration: Attentive Abstract Thinking: [place] Estimate of Intelligence: Below average Judgement: Intact, as evidence by: Good judgement, Intact, as evidence by: Insight regarding need for hospitalization - Risk Risk: Diminished functioning - Strength & Assets Inventory Strength & Assets Inventory: Family support DSM 5 DX - DSM 5 DSM 5 Diagnosis: Adjustment disorder - Recommended/Plan of Treatment Treatment Recommendations and Plan of Treatment: Patient psychiatrically stable and clear for discharge - Smoking Cessation Smoking Cessation Initiated: No
== END 2018-08-03 20:39 | disposition home or self-care (01) ==
LOC: C.ER 22:08 → C.9I 23:30 → C.3T 05-16 14:56
PROVIDERS: ADMIT Hospitalist; ATTEND Hospitalist
PROC: 5A1955Z Respiratory Ventilation, Greater than 96 Consecutive Hours (ICD-10-PCS; 2018-05-01)
PROC: 3E0G76Z Introduction of Nutritional Substance into Upper GI, Via Natural or Artificial Opening (ICD-10-PCS; 2018-05-11)
PROC: 0B113F4 Bypass Trachea to Cutaneous with Tracheostomy Device, Percutaneous Approach (ICD-10-PCS; principal; 2018-05-11 11:30)
PROC: 0DH60UZ Insertion of Feeding Device into Stomach, Open Approach (ICD-10-PCS; 2018-05-11 11:30)
PROC: 0D20XUZ Change Feeding Device in Upper Intestinal Tract, External Approach (ICD-10-PCS; 2018-05-16)
DX: A41.9 Sepsis, unspecified organism (principal); J18.9 Pneumonia, unspecified organism; J96.01 Acute respiratory failure with hypoxia; E11.10 Type 2 diabetes mellitus with ketoacidosis without coma; G93.6 Cerebral edema; I21.4 Non-ST elevation (NSTEMI) myocardial infarction; I63.9 Cerebral infarction, unspecified; K72.00 Acute and subacute hepatic failure without coma; N17.0 Acute kidney failure with tubular necrosis; T71.162A Asphyxiation due to hanging, intentional self-harm, initial encounter; G93.1 Anoxic brain damage, not elsewhere classified; I16.1 Hypertensive emergency; E87.0 Hyperosmolality and hypernatremia; Z99.11 Dependence on respirator [ventilator] status; R45.851 Suicidal ideations; N39.0 Urinary tract infection, site not specified; R18.8 Other ascites; E86.0 Dehydration; X83.8XXA Intentional self-harm by other specified means, initial encounter; S10.91XA Abrasion of unspecified part of neck, initial encounter; D69.6 Thrombocytopenia, unspecified; E87.5 Hyperkalemia; F43.21 Adjustment disorder with depressed mood; I10 Essential (primary) hypertension; I80.8 Phlebitis and thrombophlebitis of other sites; J32.2 Chronic ethmoidal sinusitis; Z79.4 Long term (current) use of insulin; R65.20 Severe sepsis without septic shock